=== PATIENT | male | born 1960 | race Caucasian/White ===

== ENCOUNTER → 2024-03-18 10:52 | Outpatient (REF) | payer OTHER, SELFPAY | LOC: WOUND 10:52 | PROVIDERS: ATTENDING PHYSICIAN Surgery; FAMILY PHYSICIAN Internal Medicine | DX: I87.313 Chronic venous hypertension (idiopathic) with ulcer of bilateral lower extremity (principal); L97.812 Non-pressure chronic ulcer of other part of right lower leg with fat layer exposed; L97.822 Non-pressure chronic ulcer of other part of left lower leg with fat layer exposed; I89.0 Lymphedema, not elsewhere classified; I87.2 Venous insufficiency (chronic) (peripheral); I73.9 Peripheral vascular disease, unspecified; E66.01 Morbid (severe) obesity due to excess calories; E78.2 Mixed hyperlipidemia | CPT/HCPCS: 11042; 11045; 99204 ==

== ENCOUNTER → 2024-03-28 15:23 | Outpatient (REF) | payer OTHER, SELFPAY | LOC: WOUND 15:23 | PROVIDERS: ATTENDING PHYSICIAN Surgery; FAMILY PHYSICIAN Internal Medicine | DX: I87.313 Chronic venous hypertension (idiopathic) with ulcer of bilateral lower extremity (principal); L97.812 Non-pressure chronic ulcer of other part of right lower leg with fat layer exposed; L97.822 Non-pressure chronic ulcer of other part of left lower leg with fat layer exposed; I89.0 Lymphedema, not elsewhere classified; I87.2 Venous insufficiency (chronic) (peripheral); I73.9 Peripheral vascular disease, unspecified; E66.01 Morbid (severe) obesity due to excess calories; E78.2 Mixed hyperlipidemia | CPT/HCPCS: 11042; 11045 ==

== ENCOUNTER → 2024-04-01 11:15 | Outpatient (REF) | payer OTHER, SELFPAY | LOC: WOUND 11:15 | PROVIDERS: ATTENDING PHYSICIAN Surgery; FAMILY PHYSICIAN Internal Medicine | DX: I87.313 Chronic venous hypertension (idiopathic) with ulcer of bilateral lower extremity (principal); L97.812 Non-pressure chronic ulcer of other part of right lower leg with fat layer exposed; L97.822 Non-pressure chronic ulcer of other part of left lower leg with fat layer exposed; I89.0 Lymphedema, not elsewhere classified; I87.2 Venous insufficiency (chronic) (peripheral); I73.9 Peripheral vascular disease, unspecified; E66.01 Morbid (severe) obesity due to excess calories; E78.2 Mixed hyperlipidemia | CPT/HCPCS: 11042; 29580 ==

== ENCOUNTER → 2024-04-07 15:06 | Outpatient (REF) | payer OTHER, SELFPAY | LOC: WOUND 15:06 | PROVIDERS: ATTENDING PHYSICIAN Surgery; FAMILY PHYSICIAN Internal Medicine | DX: I87.313 Chronic venous hypertension (idiopathic) with ulcer of bilateral lower extremity (principal); L97.812 Non-pressure chronic ulcer of other part of right lower leg with fat layer exposed; L97.822 Non-pressure chronic ulcer of other part of left lower leg with fat layer exposed; I89.0 Lymphedema, not elsewhere classified; I87.2 Venous insufficiency (chronic) (peripheral); I73.9 Peripheral vascular disease, unspecified; E66.01 Morbid (severe) obesity due to excess calories; E78.2 Mixed hyperlipidemia | CPT/HCPCS: 29580; 99213 ==

== ENCOUNTER → 2024-04-14 14:53 | Outpatient (REF) | payer OTHER, SELFPAY | LOC: WOUND 14:53 | PROVIDERS: ATTENDING PHYSICIAN Surgery; FAMILY PHYSICIAN Internal Medicine | DX: I87.313 Chronic venous hypertension (idiopathic) with ulcer of bilateral lower extremity (principal); L97.812 Non-pressure chronic ulcer of other part of right lower leg with fat layer exposed; L97.822 Non-pressure chronic ulcer of other part of left lower leg with fat layer exposed; I89.0 Lymphedema, not elsewhere classified; I87.2 Venous insufficiency (chronic) (peripheral); I73.9 Peripheral vascular disease, unspecified; E66.01 Morbid (severe) obesity due to excess calories; E78.2 Mixed hyperlipidemia | CPT/HCPCS: 29580; 99213 ==

== ENCOUNTER → 2024-04-21 14:57 | Outpatient (REF) | payer OTHER, SELFPAY | LOC: WOUND 14:57 | PROVIDERS: ATTENDING PHYSICIAN Surgery; FAMILY PHYSICIAN Internal Medicine | DX: I87.313 Chronic venous hypertension (idiopathic) with ulcer of bilateral lower extremity (principal); L97.812 Non-pressure chronic ulcer of other part of right lower leg with fat layer exposed; L97.822 Non-pressure chronic ulcer of other part of left lower leg with fat layer exposed; I89.0 Lymphedema, not elsewhere classified; I87.2 Venous insufficiency (chronic) (peripheral); I73.9 Peripheral vascular disease, unspecified; E66.01 Morbid (severe) obesity due to excess calories; E78.2 Mixed hyperlipidemia | CPT/HCPCS: 29580 ==

== ENCOUNTER → 2024-04-29 10:58 | Outpatient (REF) | payer OTHER, SELFPAY | LOC: WOUND 10:58 | PROVIDERS: ATTENDING PHYSICIAN Surgery; FAMILY PHYSICIAN Internal Medicine | DX: I87.313 Chronic venous hypertension (idiopathic) with ulcer of bilateral lower extremity (principal); L97.812 Non-pressure chronic ulcer of other part of right lower leg with fat layer exposed; L97.822 Non-pressure chronic ulcer of other part of left lower leg with fat layer exposed; I89.0 Lymphedema, not elsewhere classified; I87.2 Venous insufficiency (chronic) (peripheral); I73.9 Peripheral vascular disease, unspecified; E66.01 Morbid (severe) obesity due to excess calories; E78.2 Mixed hyperlipidemia | CPT/HCPCS: 29580; 99213 ==

== ENCOUNTER → 2024-05-06 14:53 | Outpatient (REF) | payer OTHER, SELFPAY | LOC: WOUND 14:53 | PROVIDERS: ATTENDING PHYSICIAN Surgery; FAMILY PHYSICIAN Internal Medicine | DX: I87.313 Chronic venous hypertension (idiopathic) with ulcer of bilateral lower extremity (principal); L97.812 Non-pressure chronic ulcer of other part of right lower leg with fat layer exposed; L97.822 Non-pressure chronic ulcer of other part of left lower leg with fat layer exposed; I89.0 Lymphedema, not elsewhere classified; I87.2 Venous insufficiency (chronic) (peripheral); I73.9 Peripheral vascular disease, unspecified; I66.01 Occlusion and stenosis of right middle cerebral artery; E78.2 Mixed hyperlipidemia | CPT/HCPCS: 11042 ==

== ENCOUNTER → 2024-05-15 14:38 | Outpatient (REF) | payer OTHER, SELFPAY | LOC: WOUND 14:38 | PROVIDERS: ATTENDING PHYSICIAN Surgery; FAMILY PHYSICIAN Internal Medicine | DX: I87.313 Chronic venous hypertension (idiopathic) with ulcer of bilateral lower extremity (principal); L97.812 Non-pressure chronic ulcer of other part of right lower leg with fat layer exposed; L97.822 Non-pressure chronic ulcer of other part of left lower leg with fat layer exposed; I89.0 Lymphedema, not elsewhere classified; I87.2 Venous insufficiency (chronic) (peripheral); I73.9 Peripheral vascular disease, unspecified; E66.01 Morbid (severe) obesity due to excess calories; E78.2 Mixed hyperlipidemia | CPT/HCPCS: 29580; 99212 ==

== ENCOUNTER → 2024-05-21 13:34 | Outpatient (REF) | payer OTHER, SELFPAY | LOC: WOUND 13:34 | PROVIDERS: ATTENDING PHYSICIAN Surgery; FAMILY PHYSICIAN Internal Medicine | DX: I87.313 Chronic venous hypertension (idiopathic) with ulcer of bilateral lower extremity (principal); L97.812 Non-pressure chronic ulcer of other part of right lower leg with fat layer exposed; L97.822 Non-pressure chronic ulcer of other part of left lower leg with fat layer exposed; I89.0 Lymphedema, not elsewhere classified; I87.2 Venous insufficiency (chronic) (peripheral); I73.9 Peripheral vascular disease, unspecified; E66.01 Morbid (severe) obesity due to excess calories; E78.2 Mixed hyperlipidemia | CPT/HCPCS: 29580 ==

== ENCOUNTER → 2024-05-28 14:51 | Outpatient (REF) | payer OTHER, SELFPAY | LOC: WOUND 14:51 | PROVIDERS: ATTENDING PHYSICIAN Surgery; FAMILY PHYSICIAN Internal Medicine | DX: I87.313 Chronic venous hypertension (idiopathic) with ulcer of bilateral lower extremity (principal); L97.812 Non-pressure chronic ulcer of other part of right lower leg with fat layer exposed; L97.822 Non-pressure chronic ulcer of other part of left lower leg with fat layer exposed; I89.0 Lymphedema, not elsewhere classified; I87.2 Venous insufficiency (chronic) (peripheral); I73.9 Peripheral vascular disease, unspecified; E66.01 Morbid (severe) obesity due to excess calories; E78.2 Mixed hyperlipidemia | CPT/HCPCS: 29580 ==

== ENCOUNTER → 2024-06-02 15:13 | Outpatient (REF) | payer OTHER, SELFPAY | LOC: WOUND 15:13 | PROVIDERS: ATTENDING PHYSICIAN Surgery; FAMILY PHYSICIAN Internal Medicine | DX: I87.313 Chronic venous hypertension (idiopathic) with ulcer of bilateral lower extremity (principal); L97.812 Non-pressure chronic ulcer of other part of right lower leg with fat layer exposed; L97.822 Non-pressure chronic ulcer of other part of left lower leg with fat layer exposed; I89.0 Lymphedema, not elsewhere classified; I87.2 Venous insufficiency (chronic) (peripheral); I73.9 Peripheral vascular disease, unspecified; E66.01 Morbid (severe) obesity due to excess calories; E78.2 Mixed hyperlipidemia | CPT/HCPCS: 11042 ==

== ENCOUNTER → 2024-06-09 14:57 | Outpatient (REF) | payer OTHER, SELFPAY | LOC: WOUND 14:57 | PROVIDERS: ATTENDING PHYSICIAN Surgery; FAMILY PHYSICIAN Internal Medicine | DX: I87.313 Chronic venous hypertension (idiopathic) with ulcer of bilateral lower extremity (principal); L97.812 Non-pressure chronic ulcer of other part of right lower leg with fat layer exposed; L97.312 Non-pressure chronic ulcer of right ankle with fat layer exposed; I89.0 Lymphedema, not elsewhere classified; I87.2 Venous insufficiency (chronic) (peripheral); I73.9 Peripheral vascular disease, unspecified; E66.01 Morbid (severe) obesity due to excess calories; E78.2 Mixed hyperlipidemia | CPT/HCPCS: 11042 ==

== ENCOUNTER → 2024-06-16 14:36 | Outpatient (REF) | payer OTHER, SELFPAY | LOC: WOUND 14:36 | PROVIDERS: ATTENDING PHYSICIAN Surgery; FAMILY PHYSICIAN Internal Medicine | DX: I87.313 Chronic venous hypertension (idiopathic) with ulcer of bilateral lower extremity (principal); L97.812 Non-pressure chronic ulcer of other part of right lower leg with fat layer exposed; L97.312 Non-pressure chronic ulcer of right ankle with fat layer exposed; I89.0 Lymphedema, not elsewhere classified; I87.2 Venous insufficiency (chronic) (peripheral); I73.9 Peripheral vascular disease, unspecified; E66.01 Morbid (severe) obesity due to excess calories; E78.2 Mixed hyperlipidemia | CPT/HCPCS: 11042 ==

== ENCOUNTER → 2024-06-23 15:00 | Outpatient (REF) | payer OTHER, SELFPAY | LOC: WOUND 15:00 | PROVIDERS: ATTENDING PHYSICIAN Surgery; FAMILY PHYSICIAN Internal Medicine | DX: I87.313 Chronic venous hypertension (idiopathic) with ulcer of bilateral lower extremity (principal); L97.812 Non-pressure chronic ulcer of other part of right lower leg with fat layer exposed; L97.312 Non-pressure chronic ulcer of right ankle with fat layer exposed; I89.0 Lymphedema, not elsewhere classified; I87.2 Venous insufficiency (chronic) (peripheral); I73.9 Peripheral vascular disease, unspecified; E66.01 Morbid (severe) obesity due to excess calories; E78.2 Mixed hyperlipidemia | CPT/HCPCS: 11042 ==

== ENCOUNTER → 2024-07-02 13:29 | Outpatient (REF) | payer OTHER, SELFPAY | LOC: WOUND 13:29 | PROVIDERS: ATTENDING PHYSICIAN Surgery; FAMILY PHYSICIAN Internal Medicine | DX: I87.313 Chronic venous hypertension (idiopathic) with ulcer of bilateral lower extremity (principal); L97.812 Non-pressure chronic ulcer of other part of right lower leg with fat layer exposed; L97.312 Non-pressure chronic ulcer of right ankle with fat layer exposed; I89.0 Lymphedema, not elsewhere classified; I87.2 Venous insufficiency (chronic) (peripheral); I73.9 Peripheral vascular disease, unspecified; E66.01 Morbid (severe) obesity due to excess calories; E78.2 Mixed hyperlipidemia | CPT/HCPCS: 29580 ==

== ENCOUNTER → 2024-07-09 15:02 | Outpatient (REF) | payer OTHER, SELFPAY | LOC: WOUND 15:02 | PROVIDERS: ATTENDING PHYSICIAN Surgery; FAMILY PHYSICIAN Internal Medicine | DX: I87.313 Chronic venous hypertension (idiopathic) with ulcer of bilateral lower extremity (principal); L97.812 Non-pressure chronic ulcer of other part of right lower leg with fat layer exposed; L97.312 Non-pressure chronic ulcer of right ankle with fat layer exposed; I89.0 Lymphedema, not elsewhere classified; I87.2 Venous insufficiency (chronic) (peripheral); I73.9 Peripheral vascular disease, unspecified; E66.01 Morbid (severe) obesity due to excess calories; E78.2 Mixed hyperlipidemia | CPT/HCPCS: 29580 ==

== ENCOUNTER 2024-12-25 11:23 | Inpatient (IN) | payer OTHER, SELFPAY ==
[2024-12-24 20:27] VITALS: BP 136/78
[2024-12-24 21:22] LABS: ALT (SGPT) 23 U/L (0-50); AST (SGOT) 46 U/L (17-59); Albumin 3.9 g/dl (3.5-5.0); Alkaline Phosphatase 310 U/L (38-126); Blood Urea Nitrogen 47 mg/dl (9-20); Calcium 9.4 mg/dl (8.4-10.2); Carbon Dioxide 29 mmol/L (22-30); Chloride 87 mmol/L (98-107); Glucose 660 mg/dl (70-99); NT-proBNP 270 pg/ml; Potassium 4.8 mmol/L (3.5-5.1); Sodium 125 mmol/L (135-145); Total Protein 7.1 g/dl (6.3-8.2); Troponin I 0.068 ng/ml; eGFR > 60.00
[2024-12-24 21:23] LABS: Hematocrit 41.9 % (39.0-52.0); Hemoglobin 14.7 g/dL (13.0-18.0); Mean Corp Hgb Conc. 35.1 g/dL (33.0-37.0); Mean Corpuscular Hgb 28.8 pg (27.0-31.0); Mean Corpuscular Volume 82.2 fL (80.0-94.0); Red Cell Dist. Width 12.7 % (11.5-14.5); White Blood Cell Count 12.8 10^3/uL (4.8-10.8)
[2024-12-24 21:24] LABS: Nucleated Red Blood Cells % 0 % (-)
[2024-12-24 21:41] LABS: Mean Platelet Volume 11.4 fL (7.4-10.4); Platelet Count 147 10^3/uL (130-400)
[2024-12-24 22:01] VITALS: BP 110/90
[2024-12-24 22:05] VITALS: BMI 43.4
[2024-12-24 22:08] LABS: Glucose - Point of Care > 600 mg/dl (70-99)
--- NOTE | 2024-12-24 22:21 | ED.GENMED ---
History of Present Illness
General
Chief Complaint: Breathing Problem
Source: patient
Exam Limitations: none
Time Seen by Provider: 12/24/24 22:07
History of Present Illness
History of Present Illness:
See MDM
Past History
Past History
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
ED Past Surgical History: Other (Noncontributory)
Social History
Tobacco: Non-smoker
Alcohol: None
Drug: None
Employment: Not employed
Family History
Family History: Other (Noncontributory)
Phy Exam
Physical Exam
Physical Exam:
See MDM
Scores
Heart Failure Risk
Heart Failure Risk Score: Not Applicable
Course
Orders/Labs/Results
Orders:
Orders
12/24/24 20:37
Electrocardiogram (*1) Urgent
Reason for Study: Shortness of Breath
12/24/24 20:38
EKG- Treatment ONCE
12/24/24 20:48
Complete Blood Count/With Diff Urgent
Comprehensive Metabolic Panel Urgent
NT-proBNP Urgent
Troponin I Urgent
12/24/24 22:20
CT Chest PE Study Urgent
Comment:
Reason For Exam: SOB, tachycardic
Insulin Human Regular [Novolin R] 10 units IV NOW STA
12/24/24 22:21
Aspirin Chewable [Low Strength Aspirin] 324 mg PO NOW STA
12/24/24 22:43
CT Abd/pelvis W Iv Cont Urgent
Comment:
Reason For Exam: Abd pain
12/24/24 23:40
Glucose Stat
12/25/24 00:00
0.9% Sodium Chloride 1000 ml [Nss] 1,000 ml IV BOLUS
Abnormal Lab Results
12/24/24 12/24/2412/24/25
20:48 22:07 23:27
WBC 12.8 H 10^3/uL
(4.8-10.8)
MPV 11.4 H fL
(7.4-10.4)
Sodium 125 L mmol/L
(135-145)
Chloride 87 L mmol/L
(98-107)
BUN 47 H mg/dl
(9-20)
Glucose 660 H* mg/dl
(70-99)
Alkaline Phosphatase 310 H U/L
(38-126)
Troponin I 0.068 H* ng/ml
POC Glucose > 600 H* mg/dl 516 H* mg/dl
(70-99) (70-99)
12/24/24 20:48
Vital Signs
Initial and Last Documented VS:
Initial Vital Signs
Temp Pulse BP Pulse Ox
98.0 F 125 136/78 93
12/24/24 20:27 12/24/24 20:27 12/24/24 20:27 12/24/24 20:27
Last Documented Vital Signs
Temp Pulse Resp BP Pulse Ox
98.0 F 120 19 110/90 92
12/24/24 20:27 12/24/24 22:01 12/24/24 22:01 12/24/24 22:01 12/24/24 22:05
MDM/Problems Addressed
Differential Diagnosis Includes:
HPI and MDM Narrative:
64-year-old male presenting for evaluation of shortness of breath. Patient states this has been ongoing for several weeks. Patient believes this is a fluid issue. He states he has a history of low ejection fraction in his heart. Upon further
questioning, patient has a history of insulin-dependent diabetes. He states his diet was improving so he weaned himself of insulin. Over the past 4 weeks, patient has had increased urination and increased thirst to the point where he cannot sleep
because he is urinating every 45 minutes. On arrival, patient found to be tachycardic. Blood work was done prior to my evaluation and patient found to have an elevated troponin. This is likely rate related. His BNP is normal. However, given his
elevated BMI, the BNP can be inappropriately low. Given his tachycardia and his shortness of breath and chest discomfort, will obtain CT to rule out PE. Patient found to have uncontrolled hyperglycemia. Bicarb within normal limits indicating that
this is less likely DKA. Will give dose of IV insulin. Patient given aspirin for his elevated troponin
Patient will ultimately require admission
Physical exam
General: Uncomfortable, conversational dyspnea
HEENT: protecting airway. Dry mucous membranes
Neck: appears supple
CV: No evidence of cyanosis. Tachycardic
Resp: No accessory muscle use. Poor air exchange
Abd: Distended abdomen
Extremities: Chronic appearing lymphedema to both legs
Neuro: alert
Psych: Normal affect
Skin: Intact
Problems Addressed including Acute and Chronic Conditions affecting care:
1. Shortness of breath
Acuity: acute
Prognosis: stable
Details: Will obtain CT to rule out PE
2. Tachycardia
Acuity: acute
Prognosis: stable
Details: Potentially in the setting of hypovolemia. CT PE pending
3. Hyperglycemia
Acuity: acute
Prognosis: stable
Details: No evidence of DKA. Will give dose of IV insulin
Updates
Case discussed with radiology. No obvious signs of PE. Patient does have abnormal findings on the CT abdomen/pelvis. He has significant amount of distention of his sigmoid colon but there is no obvious volvulus. When I reassessed the patient, he
remains distended but nontender. He states it has been like this for 6 weeks. He states he passes gas when he defecates. He is not clinically obstructed. I also discussed the incidental finding of possible renal cell carcinoma. Will admit
Differential Diagnosis (but not limited to): Pulmonary edema, pneumonia, pulmonary embolism
Testing considered: Chest x-ray but will go directly to CT PE
Drug therapy (if applicable): OTC meds, please see d/c instruction regarding Rx drugs
Amount and/or Complexity of Data Reviewed
Clinical info obtained from: Patient
External data reviewed: N/A
Labs I independently reviewed (but not limited to): Elevated troponin, normal BNP, hyperglycemia, pseudohyponatremia
Radiology: The CT scan was personally and independently reviewed. In addition, official CT report reviewed.
Pulse Ox: not hypoxic
EKG independently reviewed: Sinus tachycardia, normal axis, no STEMI
Marketing Communications Specialist: Sinus tachycardia
Critical Care: N/A
Risk of Complication:
Social Determinants of health: Good social support
Discussed with other providers: Hospitalist, radiologist
Escalation of Care includes Admit/Obs: Given the uncontrolled diabetes and the elevated troponin, will admit
Occasional wrong word or 'sound a like' substitutions may have occurred due to the inherent limitations of voice recognition software. Read the chart carefully and recognize, using context, where substitutions have occurred.
*Critical Care Note
Total Time (30-74mins, 75-104mins- exclusive of procedures): Not Applicable
ED Attending Note
-
Portions of this chart may have been created with voice recognition software.� Occasional wrong word or��sound alike� substitutions may have occurred due to the inherent limitations of voice recognition software.
Discharge Plan
Departure
Patient Disposition: Admit
Date of Disposition: 12/25/24
Time of Disposition: 00:11
Admit to: Telemetry
Presentation/result/management discussed w/ accepting MD/DO: Hospitalist
Discharge Problem:
Hyperglycemia, Abdominal distension
Prescriptions:
No Action
lidocaine 4 % Adhesive Patch,Medicated
1 patch TOPICAL BID
zinc sulfate 50 mg zinc (220 mg) Tablet
50 mg PO DAILY
calcium carbonate [Calcium 500] 500 mg calcium (1,250 mg) Tablet
500 mg PO DAILY
tamsulosin 0.4 mg Capsule
0.4 mg PO DAILYPRN PRN (Reason: bloating)
metoprolol succinate 25 mg Tablet Extended Release 24 Hr
12.5 mg PO NOON
lisinopril 2.5 mg Tablet
2.5 mg PO NOON
buprenorphine-naloxone [Suboxone] 4-1 mg Film
1 film BUCCAL NOON
buprenorphine-naloxone [Suboxone] 4-1 mg Film
0.5 film BUCCAL HSPRN PRN (Reason: opioid dependence)
magnesium oxide 400 mg magnesium Tablet
400 mg PO DAILY
atorvastatin 40 MG tablet
40 mg PO HS
Referrals:
Shankar Mena MD [Family Provider] -
Interventions
Interventions:
*Risk Screen - Suicide Last Done: 12/24/24 20:34
*General Assessment Last Done: 12/24/24 20:34
*Neglect/Abuse Screening Last Done: 12/24/24 20:34
*ED COVID-19 Vaccine History Last Done: 12/24/24 20:34
ED- Cardiac Assessment Last Done: 12/24/24 22:05
ED- Pulmonary Assessment Last Done: 12/24/24 22:05
Discharge Date and Time
Print Language: OMANI
[2024-12-24] MEDS: NOVOLIN R 10 UNITS IV (22:25)
[2024-12-24] MEDS: LOW STRENGTH ASPIRIN 324 MG PO (22:27)
[2024-12-24 23:04] VITALS: BP 96/67
[2024-12-24 23:28] LABS: Glucose - Point of Care 516 mg/dl (70-99)
[2024-12-25] VITALS (12 sets, daily range): BP systolic 82–126; BP diastolic 53–92; BMI 42.7
[2024-12-25 00:12] LABS: Glucose 418 mg/dl (70-99)
[2024-12-25] MEDS: NSS 1000 IV ×4 (00:28→21:06)
--- NOTE | 2024-12-25 01:02 | HPS.HSE ---
Addendum entered and electronically signed by Vimal Navarro MD 12/25/24 07:22:
Review of ECG by cardiology. Notified this am that ECG was a-flutter.
- repeat ecg, now
- cardiology consult
- echo
- holding anticoag pending cardiology eval
DM II
- stopped iv fluids
- aspart 5 tidac, sliding scale insulin
Original Note:
Family Physician
-
Family Physician: Shankar Mena
Chief Complaint
-
Shortness of breath
History of Present Illness
This is a 64-year-old male with past medical history significant for diabetes on insulin, chronic pain, BPH, hypertension obstructive sleep apnea noncompliant with CPAP presenting to the emergency department with acute episode of shortness of breath.
Patient reports that he has been having worsening health status since September 2020fall. He apparently had developed depression at that time. Was previously on insulin and had A1c of around 5.5. He stopped taking the insulin due to the A1c of
5.5. He started having polyuria and polydipsia in September and has continued to have polyuria and polydipsia since. He states he drinks a large amount of water and soft drinks. He denies nausea or vomiting. He denies fevers or chills. He
reported that around the same time he started having increasing abdominal distention. Less activity and ongoing weight gain. Patient endorses some depression for which he is seeking medications for. He states that he does get congestion that is
worse with large fluid intakes and then clears. He denies any history of asthma COPD or tobacco use. He denies constipation. He reports loose stools which he states he has had since September and he attributes to high fluid intake. Reports
polyuria going to the bathroom every 1 hour.
Today he felt markedly short of breath and he could not get comfortable. Anytime he lays down he feels his belly pushes into his chest and he cannot catch his breath. Despite the depression he was anxious enough to come to the emergency department.
In the emergency department today he was afebrile, blood pressure was 110/90 with a pulse of 120, oxygen saturation of 92% on room air. ECG shows sinus tachycardia. Troponin was 0.068. He had a CT PE which was negative for PE but shows bilateral
lower lobe bronchitis. A CT of the abdomen and pelvis showed severe sigmoid distention, no volvulus. No obstruction. White count was 12.8 hemoglobin and platelets were normal. Sodium was 125 with a blood glucose of 600. Potassium 4.8 chloride
87 and bicarb 29 with a BUN of 47 and a creatinine of 1.0. There is no anion gap.
Additional CT findings: Suggestion of a rounded mass arising from the lateral upper to mid right kidney, and raises concern for renal cell carcinoma. When clinically feasible, advise further evaluation with dedicated CT of the abdomen without and
with contrast with attention to the kidneys.
There are enlarged lymph nodes within the abdomen and pelvis as described, which raises concern for a neoplastic process, especially lymphoma and/or leukemia. As warranted, consideration for lymph node biopsy.
Medical History
Past Medical History
Past Medical History: Reports HTN, IDDM and Other (BPH)
Past Surgical History: Reports Orthopedic
Social History
Tobacco: Non-smoker
Alcohol: None
Drug: None
Personal:
Living: With Family
Employment: Retired
Family History
Family History: Not pertinent
Allergies / Home Medications
Allergies reflects when Allergies were last updated in [facility].
Home Medications with original date entered in [facility]
Allergy/Medication List:
Allergies
Allergy/AdvReac Type Severity Reaction Status Date / Time
No Known Allergies Allergy Verified 12/27/20 07:05
Home Medications
atorvastatin 40 mg tablet 40 mg PO HS 12/24/24
buprenorphine 4 mg-naloxone 1 mg sublingual film (Suboxone) 0.5 film buccal HSPRN PRN opioid dependence 12/24/24
buprenorphine 4 mg-naloxone 1 mg sublingual film (Suboxone) 1 film buccal NOON 12/24/24
calcium carbonate 500 mg PO DAILY 12/24/24
lidocaine 4 % topical patch 1 patch topical BID right shoulder 12/24/24
lisinopril 2.5 mg tablet 2.5 mg PO NOON 12/24/24
magnesium oxide 400 mg PO DAILY 12/24/24
metoprolol succinate 25 mg tablet,extended release 24 hr 12.5 mg PO NOON 12/24/24
tamsulosin 0.4 mg capsule 0.4 mg PO DAILYPRN PRN bloating 12/24/24
zinc sulfate 50 mg zinc (220 mg) tablet 50 mg PO DAILY 12/24/24
Review of Systems
-
History Source: Patient
Constitutional: Reports Weight Gain
EENT: Reports No Symptoms
Respiratory: Reports Cough and Trouble Breathing
Cardiac: Reports No Symptoms
Abdomen/GI: Reports Other (Abdominal distention)
: Reports No Symptoms
Musculoskeletal: Reports No Symptoms
Skin: Reports No Symptoms
Neurological: Reports No Symptoms
Endocrine: Reports Polyuria and Polydipsia
Hematologic/Lymphatic: Reports No Symptoms
Psych: Reports Depression
Physical Exam
Vital Signs
Vital Signs
Temp Pulse Resp BP Pulse Ox
98.0 F 120 19 110/90 92
12/24/24 20:27 12/24/24 22:01 12/24/24 22:01 12/24/24 22:01 12/24/24 22:05
Physical Exam
General: Appears in Distress, Appears Chronically Ill and Morbidly Obese
HEENT: NormoCephalic, Anicteric, Moist mucous membranes and Atraumatic
Respiratory: Clear
Cardiac: S1/S2 and Tachycardia
Breast: Deferred by me
GI: Soft, Non Tender, Distended (markedly distended), No Hepatosplenomegaly and Other (Tympanitic)
Rectal: Deferred by Provider
Genito-urinary: Deferred by me
Musculoskeletal: No Clubbing, No Cyanosis and No Edema
Skin: Warm
Neuro: AO x 3 and Nonfocal/grossly intact
Hematologic/Lymphatic: No Lymphadenopathy
Psych: Calm and Depressed
Laboratory Results
-
12/24/24 20:48
12/24/24 23:40
Laboratory Results
Total Bilirubin 1.0 mg/dl (0.2-1.3) 12/24/24 20:48
AST 46 U/L (17-59) 12/24/24 20:48
ALT 23 U/L (0-50) 12/24/24 20:48
Alkaline Phosphatase 310 U/L (38-126) H 12/24/24 20:48
Troponin I 0.068 ng/ml H* 12/24/24 20:48
Data Reviewed
-
CT Scan: Report Reviewed by me
Medical Tests (Nuc Med, Echo, EKG etc): Image Personally Visualized and interpreted
Lab Data: Labs Reviewed by me
Old Records: Reviewed
Impression/Plan
-
IMPRESSION:
Patient is a 64-year-old with history of diabetes, hypertension, BPH, morbid obesity, ERASMO not on CPAP and chronic pain who presents to the emergency department with episode of shortness of breath in the setting of approximately 4 months of polyuria
and polydipsia after stopping insulin for presumed normal hemoglobin A1c of 5.5. Patient reports weight gain, depression, abdominal distention, chest discomfort with activity and shortness of breath with any activity. CT scan is negative for PE.
He has no prior history of CHF but reports bilateral lower extremity swelling attributable to chronic lymphedema. The labs were notable for hyper glycemia to 600 improved with insulin to 400 with concomitant hyperglycemia related hyponatremia.
Renal function is stable he has no anion gap and is hemodynamically stable.
PLAN:
1. Hyperglycemia with mild hyperosmolar syndrome - Glucose 600 improved to 400 with 10 units of insulin. HD stable.
- admit to inpt
- will give additional 5 units of insulin now
- continue IV NS overnight
- repeat fsg at 4 am and coverage prn
- then insulin sliding scale achs
- check a1c and lipid panel in am
- started sitagliptin 50 pending a1c, metformin possibly [address]
2. Abdominal distension - Distended sigmoid colon w/o obstruction and no definitive volvulus. Recent loose stools. No constipation. Colonic ileus suspected
- diabetic diet
- serial examination
- GI consultation
3. SOB - Mild hypoxia to 92%. No PE. Reports intermittent cough and CT suggest bronchitis. BNP 270 (morbid obesity)
- prn nebs
- cough meds
- doxycycline for acute bronchitis
4. Elevated Troponin - ECG with tachycardia, no ischemia. No chest pain
- telemetry
- aspirin 324 x 1
- trend troponins
5. HTN
- continue lisinopril and metoprolol
6. BPH
- continue tamsulosin
7. Renal lesion - CT with suggestion of right kidney mass. Dedicated Ct of the abdomen w/o and w contrast with kidney focus.
- iv fluids and allow current iv contrast to washout
- dedicated abd CT w & w/o contrast in am
DVT PPX - lovenox sq
Code status - Full Code
[2024-12-25] MEDS: VIBRAMYCIN 100 MG PO ×2 (02:20→20:30)
[2024-12-25 02:55] LABS: Glucose - Point of Care 429 mg/dl (70-99)
--- NOTE | 2024-12-25 03:00 | PTCARENOTE ---
Received pt from ED via stretcher. Weight obtained on standing scale and pt walked to bed.
[2024-12-25 03:44] LABS: Blood Urea Nitrogen 38 mg/dl (9-20); Calcium 8.7 mg/dl (8.4-10.2); Carbon Dioxide 25 mmol/L (22-30); Chloride 93 mmol/L (98-107); Estimated Creatinine Clearance > 125 ml/min; Glucose 413 mg/dl (70-99); Potassium 4.4 mmol/L (3.5-5.1); Sodium 127 mmol/L (135-145); eGFR > 60.00
[2024-12-25 04:04] LABS: Troponin I 0.074 ng/ml
[2024-12-25] MEDS: NOVOLIN R 0.05 UNITS IV (04:24)
[2024-12-25 05:02] LABS: COVID-19 Antigen Negative (Negative)
--- NOTE | 2024-12-25 06:54 | CON.GI ---
Addendum entered and electronically signed by Dipika Sheffield Do, MD 12/25/24 14:44:
The CUSTOMER CARE PROFESSIONAL's note was reviewed and I agree with the note.
Comment: Merrill is a 64yo M with poorly controlled DM, ERASMO and chronic pain who was admitted with SOB and abd distension. He does not seek medical care routinely. Unable to do exam as despite returning to room three times today he was not
available. Either imaging, speaking to cardiology, colorectal surgery or at endoscopy center.
Imaging reviewed and given extremely dilated loops of bowel with possible volvulus I do not feel comfortable doing flex sigm. Case d/w colorectal surgeon and they will do flex sigm today and if there is perforation he can go immediately to OR.
Minimize opioid use. NPO. At this juncture no new GI recs will sign off please call for questions.
Original Note:
Consultation
-
Date/Time Consultation Requested: 12/25/24 0230
Date/Time Consultation Performed: 12/25/24 1030
Requesting Provider: Vimal Navarro MD
Performing Provider: ORIN Fuller, Dipika Story MD
Reason for Consultation: abnormal CT
Medical History
Chief Complaint / HPI
Chief Complaint: shortness of breath, abdominal distention
History of Present Illness:
Pt is a 64yo with hx IDDM, HTN, hypercholesterolemia, cardiomyopathy, chronic pain, BPH, sleep apnea, obesity, depression medical noncompliance presents with shortness of breath with abdominal bloating. . On admission pt admits to weaning self
off insulin about 2 years ago with hypoglcemia episode and no further follow up. He is now noted with polyuria and polydipsia. On admission he is noted with multiple issues including glucose of 660 with hbgA1c 17.1, troponin 0,068 with mild rise
after admission, na 125, and WBC 12,800. Imaging with CT chest- suboptimal pulm arteries but neg PE. No dissection or aneurysm, no pericardial or pleural effusion. There was noted distended loop of bowel in upper abdomen with distention. Further
follow up CT A/p with distention of sigmoid colon without volvulus with consideration for decompression tube. Also noted flipping of cecum with elongated and tortuous with possible displacement of distended sigmoid. Also moderate wall thickening
of rectosigmoid inferior to distended sigmoid with moderate stool in portion of sigmoid and possible stercoral colitis. Ct further suggest mass lateral to upper to mid right kidney concern for renal cell CA with need for further with and without Ct
imaging and enlarged lymph nodes with concern for neoplastic process - lymphoma or leukemia. Pt also noted with aflutter on admission with BP 80-100.
In review with patient he admits to some chronic distention and large abdominal. About 1 years ago he admits to change in bowel pattern with loose stools but admits to only 1-2 stools per week. His last stool was 1/2 liquid and 1/2 solid
stool. Per family he does cough with eating at times. He admits to bloating but otherwise denies odynophagia, GERD, nausea, vomiting with tolerating full breakfast on day of admission, or rectal bleeding. No hx EGD or colonoscopy in past. No
anticoagulation use but admits to regular Ibuprofen use for shoulder pain.
Past Medical History
Past Medical History: HTN, Hypercholesterolemia, IDDM, Psychiatric (depression) and Other (cardiomyoathy, chronic pain, BPH, sleep apnea, obesity)
Past Surgical History: Orthopedic (B/L HR, R TKR 2020 )
Social History
Tobacco: Non-Smoker
Alcohol: Occasional (rare)
Drug: None
Personal:
Living: With Family
Employment: Not Employed
Family History
Family History: Other (no family)
Allergies / Home Medications
Allergy/AdvReac Type Severity Reaction Status Date / Time
No Known Allergies Allergy Verified 12/27/20 07:05
�Medication �Instructions �Recorded
atorvastatin 40 mg tablet 40 mg PO HS 12/24/24
buprenorphine 4 mg-naloxone 1 mg 0.5 film buccal HSPRN PRN opioid 12/24/24
sublingual film (Suboxone) dependence
buprenorphine 4 mg-naloxone 1 mg 1 film buccal NOON 12/24/24
sublingual film (Suboxone)
calcium carbonate 500 mg PO DAILY 12/24/24
lidocaine 4 % topical patch 1 patch topical BID right shoulder 12/24/24
lisinopril 2.5 mg tablet 2.5 mg PO NOON 12/24/24
magnesium oxide 400 mg PO DAILY 12/24/24
metoprolol succinate 25 mg 12.5 mg PO NOON 12/24/24
tablet,extended release 24 hr
tamsulosin 0.4 mg capsule 0.4 mg PO DAILYPRN PRN bloating 12/24/24
zinc sulfate 50 mg zinc (220 mg) 50 mg PO DAILY 12/24/24
tablet
Review of Systems
-
History Source: Patient and Family
Constitutional: Reports Other (weight 330-350 range )
EENT: Reports No Symptoms
Respiratory: Reports Trouble Breathing
Cardiac: Reports No Symptoms
Abdomen/GI: Reports Diarrhea, Constipated (change on bowel pattern over last year ) and Other (abdominal distention)
: Reports No Symptoms
Musculoskeletal: Reports Other (chronic shoulder pain)
Skin: Reports Other (LE swelling )
Neurological: Reports Weakness
Endocrine: Reports No Symptoms
Hematologic/Lymphatic: Reports No Symptoms
Vital Signs
Temp Pulse Resp BP Pulse Ox
98.0 F 90 18 102/67 92
12/25/24 03:18 12/25/24 03:18 12/25/24 03:18 12/25/24 03:18 12/25/24 03:18
Physical Exam
Exam
General: Other (chronic ill appearing)
HEENT: Normocephalic and Anicteric
Respiratory: Other (decreased bases )
Cardiac: Peripheral Edema and Other (tachy- aflutter )
GI: Soft, Non Tender, Distended and Other (tympanic )
Musculoskeletal: No Clubbing and No Cyanosis
Skin: Warm and Dry
Neuro: Awake, Alert and AO x 3
Psych: Calm
Results
WBC 12.8 10^3/uL (4.8-10.8) H 12/24/24 20:48
Hgb 14.7 g/dL (13.0-18.0) 12/24/24 20:48
Hct 41.9 % (39.0-52.0) 12/24/24 20:48
MCV 82.2 fL (80.0-94.0) 12/24/24 20:48
Plt Count 147 10^3/uL (130-400) 12/24/24 20:48
Sodium 127 mmol/L (135-145) L 12/25/24 03:01
Potassium 4.4 mmol/L (3.5-5.1) 12/25/24 03:01
Chloride 93 mmol/L (98-107) L 12/25/24 03:01
Carbon Dioxide 25 mmol/L (22-30) 12/25/24 03:01
BUN 38 mg/dl (9-20) H 12/25/24 03:01
Creatinine 0.8 mg/dL (0.7-1.3) 12/25/24 03:01
Calcium 8.7 mg/dl (8.4-10.2) 12/25/24 03:01
Total Bilirubin 1.0 mg/dl (0.2-1.3) 12/24/24 20:48
AST 46 U/L (17-59) 12/24/24 20:48
ALT 23 U/L (0-50) 12/24/24 20:48
Alkaline Phosphatase 310 U/L (38-126) H 12/24/24 20:48
Diagnostic Image Results:
12/24/24 CT Chest PE Study
IMPRESSION: Suboptimal opacification of the pulmonary arteries, and respiratory motion artifact in the inferior lungs. No evidence for central pulmonary embolism. Limited evaluation of the segmental and subsegmental pulmonary arteries.
If there are persistent clinical symptoms, consideration for repeat CT angiography of the chest with pulmonary embolism protocol.
No evidence for thoracic aortic dissection or aneurysm.
Findings of bronchitis within both lower lungs, especially within the lower lobes. Linear atelectasis within both lower lungs, probably associated with bronchitis.
No significant pleural effusion and no significant pericardial effusion.
Coronary artery calcifications are present. Please correlate with symptoms of and risk factors for coronary artery disease, with further workup as clinically appropriate.
In the upper abdomen, distention of a loop of bowel within the upper abdomen which appears to be a loop of colon. There also appears to be slight thickening of the wall of this loop of distended colon. The patient is scheduled for a separate CT of
the abdomen and pelvis, which will be reported separately.
12/24/24 CT Abd/pelvis W Iv Cont
IMPRESSION: Significant distention of the sigmoid colon, extending into the upper abdomen, but without convincing evidence for sigmoid volvulus.
Consideration for attempt at decompression tube placement.
Unusual flipping of the cecum into the left pelvis, and new finding from previous examination of December 25, 2011. This is likely due to an elongated and tortuous:, Perhaps displaced by the distended sigmoid colon.
Moderate circumferential wall thickening involving the rectum and rectosigmoid junction, inferior to the distended portion of the sigmoid colon. There is also moderate amount of stool within this portion of the sigmoid colon. A component of
stercoral colitis in this region is possible.
No evidence for free intraperitoneal air.
Suggestion of a rounded mass arising from the lateral upper to mid right kidney, and raises concern for renal cell carcinoma. When clinically feasible, advise further evaluation with dedicated CT of the abdomen without and with contrast with
attention to the kidneys.
There are enlarged lymph nodes within the abdomen and pelvis as described, which raises concern for a neoplastic process, especially lymphoma and/or leukemia. As warranted, consideration for lymph node biopsy.
12/25/24CT Abdomen W/wo Iv Contrast
1.8 cm solid enhancing right renal mass, representing neoplasm until proven otherwise.
Nonobstructing left renal calculi.
Continued gaseous distention of the sigmoid colon.
Mild colonic diverticulosis. No evidence of acute diverticulitis.
Mild distal periaortic adenopathy and left common iliac chain adenopathy.
Prior GI Procedures:
EGD: none
Colonoscopy: none
Assessment / Plan
-
Pt is a 64yo with hx IDDM, HTN, hypercholesterolemia, cardiomyopathy, chronic pain, BPH, sleep apnea, obesity, depression presents with shortness of breath. On admission pt admits to recently weaning self off insulin with polyuria and polydipsia.
On admission he is noted with multiple issues including glucose of 660, troponin 0,068 with mild rise after admission, na 125, and WBC 12,800. Imaging with CT chest- suboptimal pulm arteries but neg PE. No dissection or aneurysm, no pericardial or
pleural effusion. There was noted distended loop of bowel in upper abdomen with distention. Further follow up CT A/p with distention of sigmoid colon without volvulus with consideration for decompression tube. Also noted flipping of cecum with
elongated and tortuous with possible displacement of distended sigmoid. Also moderate wall thickening of rectosigmoid inferior to distended sigmoid with moderate stool in portion of sigmoid and possible stercoral colitis. Ct further suggest mass
lateral to upper to mid right kidney concern for renal cell CA with need for further with and without Ct imaging and enlarged lymph nodes with concern for neoplastic process - lymphoma or leukemia.
-marked abdominal distention with sigmoid distention, constipation and possible stercoral colitis
-renal mass concern for renal Cell CA
-enlarged lymph nodes with concern for neoplastic process
-aflutter-new
-hypotension
-occasional dysphagia
marked elevated FBS and Hbg A1C with non compliance with diabetic care
-mild trop elevation
-leukocytosis
-hyponatremia
other med problems:
-HTN
-cardiomyopathy
-chronic pain-NSAID use
-BPH
-sleep apnea
-obesity
-depression
PLAN:
etiology of marked sigmoid distention related to underlying volvulus though not reported per radiology, underlying mass vs other
with marked distention will consult colorectal for considering decompression
pt ate breakfast this am agree with NPO now
reviewed CT with distention and other finding with renal mass, adenopathy with pt and family
cont rx for renal mass/uncontrolled DM per medical team
appreciate cards input ok to proceed with flex/decompression
reviewed case with Dr. Pierre, Dr. Bone and Dr. Mcguire
consider eventual colonoscopy when improved
consider speech eval when able with occasional dysphagia reported
updated at bedside
-
-
Thank you for consultation and allowing me to participate in the patient's care. Please call the county home demonstration agent GI physician during the after hours with any questions or concerns.
[2024-12-25 07:19] LABS: Hematocrit 39.2 % (39.0-52.0); Hemoglobin 13.5 g/dL (13.0-18.0); Mean Corp Hgb Conc. 34.4 g/dL (33.0-37.0); Mean Corpuscular Hgb 28.4 pg (27.0-31.0); Mean Corpuscular Volume 82.5 fL (80.0-94.0); Mean Platelet Volume 10.5 fL (7.4-10.4); Platelet Count 174 10^3/uL (130-400); Red Blood Cell Count 4.75 10^6/uL (4.70-6.10); Red Cell Dist. Width 12.9 % (11.5-14.5)
[2024-12-25 07:24] LABS: Glucose - Point of Care 421 mg/dl (70-99)
[2024-12-25 07:44] LABS: Troponin I 0.077 ng/ml
[2024-12-25 07:50] LABS: Blood Urea Nitrogen 34 mg/dl (9-20); Calcium 8.8 mg/dl (8.4-10.2); Carbon Dioxide 29 mmol/L (22-30); Chloride 92 mmol/L (98-107); Estimated Creatinine Clearance > 125 ml/min; Glucose 392 mg/dl (70-99); HDL Cholesterol 51 mg/dl; LDL Cholesterol, Calculated 91 mg/dl; Potassium 4.3 mmol/L (3.5-5.1); Sodium 128 mmol/L (135-145); Total Cholesterol 219 mg/dl (50-199); Triglyceride 389 mg/dl (10-149); Very Low Density Lipoprotein 77 mg/dl (0-30); eGFR > 60.00
[2024-12-25 08:04] LABS: Glucose 444 mg/dl (70-99)
[2024-12-25] MEDS: NOVOLOG FLEXPEN 5 UNITS SC (08:22)
[2024-12-25] MEDS: NOVOLOG FLEXPEN-LOW RESISTANCE 6 UNITS SC ×2 (08:23→11:23)
--- NOTE | 2024-12-25 09:03 | CON.CAR ---
Addendum entered and electronically signed by Vazquez Mcguire MD 12/25/24 15:02:
I saw and examined the patient.
The VEGETABLE THINNER's note was reviewed and I agree with the note.
Comment: 64 y/o male (patient of Dr. Barrow last seen in our office 12/2020) with hypertension, resolved NICM (EF 20% 2017, most recent EF 50-55%), dyslipidemia, obesity, DM, OA with chronic pain syndrome, and ERASMO. He is here for evaluation of SOB,
abdominal bloating found to have a significantly dilated sigmoid colon.
We are consulted for a flutter
- Heparin gtt when OK from surgical perspective
- Amio gtt when therapeutic AC
Original Note:
Consultation
Consultation Request
Date/Time Consultation Requested: 12/25/24714
Date/Time Consultation Performed: 12/25/24 0904
Requesting Provider: Dr. Navarro
Performing Provider: Erika SR for Dr. Mcguire
Reason for Consultation: Atrial flutter
Medical History
-
Chief Complaint: SOB
History of Present Illness:
64 y/o male (patient of Dr. Barrow last seen in our office 12/2020) with hypertension, resolved NICM (EF 20% 2016, most recent EF 50-55%), dyslipidemia, obesity, DM, OA with chronic pain syndrome, and ERASMO. He is here for evaluation of SOB,
abdominal bloating- it has been worse for the past 3 months. He has multiple issues including an abdominal process (see details below), severe hyperglycemia (has been off insulin), hyponatremia, evidence for bronchitis. He has mildly increased WOB
on assessment, but lungs clear. This is likely related to his severely distended abdomen. Also being treated for bronchitis.
Past Medical History
Past Medical History: HTN, Hypercholesterolemia, NIDDM and Other (as above)
Social History
Tobacco: Non-Smoker
Personal:
Living: With Family
Family History
Family History: CAD (mom)
Allergies / Home Medications
Allergy/AdvReac Type Severity Reaction Status Date / Time
No Known Allergies Allergy Verified 12/27/20 07:05
�Medication �Instructions �Recorded �Confirmed �Type
atorvastatin 40 mg tablet 40 mg PO HS 12/24/24 12/24/24 History
buprenorphine 4 mg-naloxone 1 mg 0.5 film buccal HSPRN PRN opioid 12/24/24 12/24/24 History
sublingual film (Suboxone) dependence
buprenorphine 4 mg-naloxone 1 mg 1 film buccal NOON 12/24/24 12/24/24 History
sublingual film (Suboxone)
calcium carbonate 500 mg PO DAILY 12/24/24 12/24/24 History
lidocaine 4 % topical patch 1 patch topical BID right shoulder 12/24/24 12/24/24 History
lisinopril 2.5 mg tablet 2.5 mg PO NOON 12/24/24 12/24/24 History
magnesium oxide 400 mg PO DAILY 12/24/24 12/24/24 History
metoprolol succinate 25 mg 12.5 mg PO NOON 12/24/24 12/24/24 History
tablet,extended release 24 hr
tamsulosin 0.4 mg capsule 0.4 mg PO DAILYPRN PRN bloating 12/24/24 12/24/24 History
zinc sulfate 50 mg zinc (220 mg) 50 mg PO DAILY 12/24/24 12/24/24 History
tablet
Review of Systems
-
History Source: Patient
All other systems: Negative unless noted
Respiratory: Trouble Breathing
Abdomen/GI: Other (abdominal bloating)
Physical Exam
Vital Signs
Temp Pulse Resp BP Pulse Ox
97.9 F 66 14 101/65 93
12/25/24 07:36 12/25/24 07:36 12/25/24 07:36 12/25/24 08:12 12/25/24 07:36
Lab Results
12/25/24 07:05
12/25/24 07:45
Troponin I 0.077 ng/ml H* 12/25/24 07:05
Inh-C-[id number] Pept 270 pg/ml 12/24/24 20:48
Physical Exam
General: Other (mildly increased WOB)
HEENT: Normocephalic and Anicteric
Respiratory: Clear and Other (as above)
Cardiac: Regular Rhythm (aflutter 120's)
GI: Distended
Musculoskeletal: Edema (BLE edema)
Skin: Other (BLE discoloration)
Neuro: AO x 3
Psych: Calm
Impression / Plan
-
Abdominal process, distension:
-details as below
-GI and surgery consulted. Discussed with GI and there is consideration for decompression today, but patient ate breakfast. No OAC for now per GI since he will need procedures.
Atrial flutter:
-rates in 120's
-increase BB and monitor telemetry. Stop ACEI to make BP room.
-can further treat once acute non-cardiac issues are addressed
-[id number] score is 3 for DM, HTN, and hx CM
-he has untreated sleep apnea and this will need to be addressed
-check TSH
Resolved NICM:
-EF was as low as 20% in 2017, more recently 50-55%
-update echo
DM2: severe
-hgb A1C 17.7, glucose on arrival in 600's
-management per primary team
Abnormal troponin:
-suspect acute, non-ischemic myocardial injury in setting of acute illnesses as above
Data:
Abdomen/Pelvis CT: Significant distention of the sigmoid colon, extending into the upper abdomen, but without convincing evidence for sigmoid volvulus. Unusual flipping of the cecum into the left pelvis. This is likely due to an elongated and
tortuous colon, perhaps displaced by the distended sigmoid colon. Moderate circumferential wall thickening involving the rectum and rectosigmoid junction, inferior to the distended portion of the sigmoid colon. There is also moderate amount of stool
within this portion of the sigmoid colon. A component of stercoral colitis in this region is possible. No evidence for free intraperitoneal air. Suggestion of a rounded mass arising from the lateral upper to mid right kidney, and raises concern for
renal cell carcinoma. There are enlarged lymph nodes within the abdomen and pelvis as described, which raises concern for a neoplastic process, especially lymphoma and/or leukemia.
Chest CT 12/24/24: Suboptimal opacification of the pulmonary arteries, and respiratory motion artifact in the inferior lungs. No evidence for central pulmonary embolism. Limited evaluation of the segmental and subsegmental pulmonary arteries. If
there are persistent clinical symptoms, consideration for repeat CT angiography of the chest with pulmonary embolism protocol. No evidence for thoracic aortic dissection or aneurysm. Findings of bronchitis within both lower lungs, especially within
the lower lobes. Linear atelectasis within both lower lungs, probably associated with bronchitis.No significant pleural effusion and no significant pericardial effusion. Coronary artery calcifications are present. In the upper abdomen, distention of
a loop of bowel within the upper abdomen which appears to be a loop of colon. There also appears to be slight thickening of the wall of this loop of distended colon.
Data Reviewed
-
EKG: Tracing Personally Visualized and interpreted (Atrial flutter [address]
CT Scan: Report Reviewed by me (as noted )
Medical Tests (Nuc Med, Echo etc): Report Reviewed by me (Echo 09/20/20: EF 50-55%. Moderate concentric left ventricular hypertrophy. Mildly dilated left atrium. The aortic root is mildly dilated-3.8 cm at sinus of Valsalva.)
Labs: Labs Reviewed by me
[2024-12-25 09:08] LABS: Glycohemoglobin (HgbA1c) 17.7 % (4.0-5.6)
[2024-12-25] MEDS: VIBRAMYCIN PO ×2 (10:08→10:16)
--- NOTE | 2024-12-25 10:25 | W.PN.HOSP.TC ---
Today's Communication/Plan
-
see plan
Assessment / Plan
Assessment / Plan
Patient is a 64-year-old with history of diabetes, hypertension, BPH, morbid obesity, ERASMO not on CPAP and chronic pain who presents to the emergency department with episode of shortness of breath in the setting of approximately 4 months of polyuria
and polydipsia after stopping insulin for presumed normal hemoglobin A1c of 5.5. He is found to have hyperglycemia, significant distention of sigmoid colon, new renal mass, possibly bronchitis.
Chest CT
IMPRESSION: Suboptimal opacification of the pulmonary arteries, and respiratory motion artifact in the inferior lungs. No evidence for central pulmonary embolism. Limited evaluation of the segmental and subsegmental pulmonary arteries.
If there are persistent clinical symptoms, consideration for repeat CT angiography of the chest with pulmonary embolism protocol.
No evidence for thoracic aortic dissection or aneurysm.
Findings of bronchitis within both lower lungs, especially within the lower lobes. Linear atelectasis within both lower lungs, probably associated with bronchitis.
No significant pleural effusion and no significant pericardial effusion.
Coronary artery calcifications are present. Please correlate with symptoms of and risk factors for coronary artery disease, with further workup as clinically appropriate.
In the upper abdomen, distention of a loop of bowel within the upper abdomen which appears to be a loop of colon. There also appears to be slight thickening of the wall of this loop of distended colon. The patient is scheduled for a separate CT of
the abdomen and pelvis, which will be reported separately.
Abdomen/Pelvis CT
IMPRESSION: Significant distention of the sigmoid colon, extending into the upper abdomen, but without convincing evidence for sigmoid volvulus.
Consideration for attempt at decompression tube placement.
Unusual flipping of the cecum into the left pelvis, and new finding from previous examination of December 25, 2011. This is likely due to an elongated and tortuous:, Perhaps displaced by the distended sigmoid colon.
Moderate circumferential wall thickening involving the rectum and rectosigmoid junction, inferior to the distended portion of the sigmoid colon. There is also moderate amount of stool within this portion of the sigmoid colon. A component of
stercoral colitis in this region is possible.
No evidence for free intraperitoneal air.
Suggestion of a rounded mass arising from the lateral upper to mid right kidney, and raises concern for renal cell carcinoma. When clinically feasible, advise further evaluation with dedicated CT of the abdomen without and with contrast with
attention to the kidneys.
There are enlarged lymph nodes within the abdomen and pelvis as described, which raises concern for a neoplastic process, especially lymphoma and/or leukemia. As warranted, consideration for lymph node biopsy.
Abdomen/Pelvis CT
IMPRESSION:
1.8 cm solid enhancing right renal mass, representing neoplasm until proven otherwise.
Nonobstructing left renal calculi.
Continued gaseous distention of the sigmoid colon.
Mild colonic diverticulosis. No evidence of acute diverticulitis.
Mild distal periaortic adenopathy and left common iliac chain adenopathy.
PLAN:
Hyperglycemia with mild hyperosmolar syndrome - Glucose 600 improved to 400 with 10 units of insulin. HD stable.
- admit to inpt
- s/p fluids
- start Lantus 10 units QD
- ISS
- A1c 17.7
- stop sitagliptin 50
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
Abdominal distension - Distended sigmoid colon w/o obstruction and no definitive volvulus.
-made NPO
-gentle IVF
-appreciate GI consult, CRS consulted
SOB - Mild hypoxia to 92%. No PE. Reports intermittent cough and CT suggest bronchitis. BNP 270 (morbid obesity)
- prn nebs
- cough meds
- doxycycline for acute bronchitis
Aflutter - new
Non-ischemic myocardial injury
- telemetry
- trend troponins
- appreciate Cardiology
- eventual TTE
HTN
- continue lisinopril and metoprolol
BPH
- continue tamsulosin
Renal lesion
Lymphadenopathy - CT with suggestion of right kidney mass. Dedicated Ct of the abdomen w/o and w contrast with kidney focus.
-will discuss case with Urology; acute issues to be treated first
DVT PPX - lovenox sq
Code status - Full Code
51 minutes spent on patient care
Anticipated Discharge: > 48 hours
Subjective/Interval History
-
Date of Service: December 25, 2024
states he feels 'panicky' with this information given to him but breathing doesn't feel worse than when he came in
abdominal bloating is typical for him
last BM yesterday
Objective Data
-
Labs:
Laboratory Results
12/24/24 12/25/24 12/25/24
23:40 03:01 07:05
WBC 9.0
Hgb 13.5
Hct 39.2
Plt Count 174
Sodium 127 L 128 L
Potassium 4.4 4.3
Chloride 93 L 92 L
Carbon Dioxide 25 29
BUN 38 H 34 H
Creatinine 0.8 0.8
Glucose 418 H 413 H 392 H
Calcium 8.7 8.8
12/25/24
07:45
WBC
Hgb
Hct
Plt Count
Sodium
Potassium
Chloride
Carbon Dioxide
BUN
Creatinine
Glucose 444 H
Calcium
Vital Signs:
Vital Signs
Temp Pulse Resp BP Pulse Ox
97.9 F 66 14 101/65 93
12/25/24 07:36 12/25/24 07:36 12/25/24 07:36 12/25/24 08:12 12/25/24 07:36
I&O
12/24/24 12/25/24 12/26/24
06:59 06:59 06:59
Intake Total 880 / 880
Balance 880 / 880
Review of Systems
-
History Source: Patient
All other systems: Reviewed and negative
Physical Exam
-
General: No Apparent Distress
HEENT: PERRLA
Respiratory: Clear to Auscultation; Negative Wheezes
Cardiac: Regular Rhythm and S1/S2
GI: Other (distended)
Musculoskeletal: No Edema
Skin: Warm and Dry; Negative Rash
Neuro: AO x 3
Psych: Calm
Data Reviewed
-
Diagnostic Radiology: Report Reviewed by me
Labs: Labs Reviewed by me
[2024-12-25 11:04] LABS: Glucose - Point of Care 443 mg/dl (70-99)
[2024-12-25] MEDS: LANTUS 0.1 UNITS SC ×2 (11:19→12:12)
[2024-12-25] MEDS: NOVOLOG FLEXPEN SC ×2 (11:22→12:11)
[2024-12-25] MEDS: SUBUTEX 4 MG SL (11:45)
[2024-12-25] MEDS: TOPROL XL 25 MG PO (11:45)
[2024-12-25 12:18] LABS: Glucose 431 mg/dl (70-99)
--- NOTE | 2024-12-25 12:24 | W.PN.UPDATE ---
Update Note
Progress Note Update
Patient seen recently on floor. As Dr. Pierre in office and GI deferring decompression to us, Dr. Pierre has asked that I perform the decompression. I discussed situation in detail with patient and his . Recommended colonoscopic decompression
with potential for placement of a colonoscopic decompression tube for possible sigmoid volvulus. Risks and benefits discussed. Risks covered included but not limited to bleeding, infection, perforation, missed lesion, lack of success, and
anesthetic risks. He agrees to proceed. I also discussed that if it is unsuccessful or perforation occurs, an open Darlene's resection would be in order. Risks and benefits discussed. Risks covered include but not limited to bleeding,
infection, ureteral injury, bowel or solid organ injury, hernia, ongoing symptoms of constipation and anesthetic risks. He agrees to undergo this if needed. All questions were answered.
--- NOTE | 2024-12-25 13:01 | CON.CRS ---
Consultation
-
Date/Time Consultation Requested: 12/25/2024, 08:30
Date/Time Consultation Performed: 12/25/2024, 8:45
Requesting Provider: Cherelle Cotton
Performing Provider: Jl Pierre MD
Reason for Consultation: sigmoid distention
Medical History
-
Chief Complaint: SOB
History of Present Illness:
64-year-old male with a past medical history of noncompliant type 2 diabetes, history of some [place] use, obesity, and hypertension, presents to [facility] complaining of shortness of breath. The patient states he stopped his insulin 'a wild
ago' because he thought he been controlling his diabetes via diet. He had noticed his abdomen getting distended off and on for more recently it has become worse. It got to the point where he was having shortness of breath yesterday. His last
bowel movements and flatus were yesterday but he has not had any today. He had persistent diarrhea yesterday. He has never had a colonoscopy before. His only previous surgeries include 2 orthopedic surgeries. He is not on any blood thinners. He
denies a family history of rectal or colon cancer.
In the ER his WBC was 12.8 and is 9.0 today. His temperature has remained afebrile. He is tachycardic with heart rate in the 120s and 130s. CT of the abdomen and pelvis done yesterday shows distention of the sigmoid colon extending to the upper
abdomen and unusual flipping of the cecum into the left pelvis. There is also moderate circumferential wall thickening involving the rectum and rectosigmoid junction inferior to the distended portion of the sigmoid colon. There is a moderate
amount of stool in the sigmoid colon. A repeat CT today showed a 1.8 cm enhancing right renal mass, continued gas distention of the sigmoid colon, mild colonic diverticulosis with no evidence of acute diverticulitis. Given these findings, we have
been consulted for further recommendation.
Past Medical History
Past Medical History: HTN, NIDDM (non-complient) and Other (BPH, history of Suboxone use)
Past Surgical History: Orthopedic (hip and knee)
Social History
Tobacco: Non-Smoker
Alcohol: None
Family History
Family History: Reviewed & Not Pertinent
Allergies / Home Medications
Allergy/AdvReac Type Severity Reaction Status Date / Time
No Known Allergies Allergy Verified 12/27/20 07:05
�Medication �Instructions �Recorded �Confirmed �Type
atorvastatin 40 mg tablet 40 mg PO HS 12/24/24 12/24/24 History
buprenorphine 4 mg-naloxone 1 mg 0.5 film buccal HSPRN PRN opioid 12/24/24 12/24/24 History
sublingual film (Suboxone) dependence
buprenorphine 4 mg-naloxone 1 mg 1 film buccal NOON 12/24/24 12/24/24 History
sublingual film (Suboxone)
calcium carbonate 500 mg PO DAILY 12/24/24 12/24/24 History
lidocaine 4 % topical patch 1 patch topical BID right shoulder 12/24/24 12/24/24 History
lisinopril 2.5 mg tablet 2.5 mg PO NOON 12/24/24 12/24/24 History
magnesium oxide 400 mg PO DAILY 12/24/24 12/24/24 History
metoprolol succinate 25 mg 12.5 mg PO NOON 12/24/24 12/24/24 History
tablet,extended release 24 hr
tamsulosin 0.4 mg capsule 0.4 mg PO DAILYPRN PRN bloating 12/24/24 12/24/24 History
zinc sulfate 50 mg zinc (220 mg) 50 mg PO DAILY 12/24/24 12/24/24 History
tablet
Review of Systems
-
History Source: Patient
Respiratory: Trouble Breathing
Abdomen/GI: Abdominal Pain, Diarrhea and Constipated
A 10 point review of systems was completed, and was negative except as per HPI.
Physical Exam
Vital Signs
Temp 98.2 F 12/25/24 12:11
Pulse 132 12/25/24 12:11
Resp Rate 18 12/25/24 12:11
Blood pressure 121/81 12/25/24 12:11
SaO2 92 12/25/24 12:11
12/24/24 12/25/24 12/26/24
06:59 06:59 06:59
Actual Weight 150.91 kg
Body Mass Index (BMI) 42.7
Lab Results / Allergies
12/25/24 07:05
12/25/24 11:50
WBC 9.0 10^3/uL (4.8-10.8) 12/25/24 07:05
Hgb 13.5 g/dL (13.0-18.0) 12/25/24 07:05
Hct 39.2 % (39.0-52.0) 12/25/24 07:05
Plt Count 174 10^3/uL (130-400) 12/25/24 07:05
Allergy/AdvReac Type Severity Reaction Status Date / Time
No Known Allergies Allergy Verified 12/27/20 07:05
Physical Exam
General: Well Developed, Well Nourished and No Apparent Distress
GI: Non Distended, Distended and Other (abdomen tilted towards the left)
Skin: Warm
Neuro: AO x 3
Data Reviewed
-
CT Scan: Image Personally Visualized and interpreted, Report Reviewed by me and Discussed with Patient
Labs: Labs Reviewed by me, Discussed with Physician and Discussed with Patient
Old Records: Reviewed
Assessment / Plan
-
Assessment: 64-year-old male, noncompliant diabetic, noncompliant who presents to [facility] complaining of shortness of breath and abdominal pain found to have a distended sigmoid colon, flipping of the cecum and colon pelvis and moderate
circumferential wall thickening in the rectum and rectosigmoid junction with question of a renal mass
Plan:
-Remain n.p.o.
-Given CT, will need an urgent flexible sigmoidoscopy with decompression. Discussed with the patient who is in agreement. Arrangements in place
-Eventual renal mass workup
--- NOTE | 2024-12-25 13:08 | PN.DE.MGMTRT ---
Insulin Management
- -
12/25/2024 Diabetes Management Consult
Patient admitted with shortness of breath with approximately 4 months of polyuria and polydipsia; found to have distention of sigmoid colon, new renal mass, possible bronchitis. PMH history of diabetes, hypertension, BPH, morbid obesity, ERASMO not
on CPAP and chronic pain. A1C on admission 17.7%, cr .8, eGFR > 60.
Patient is awake alert and oriented oob in chair able to discuss diabetes management, at bedside and supportive. Patient states 2 years ago he was taking insulin but his A1C was 5.5 so he stopped his insulin. Was taking 30 units lantus @ hs
with novolog 18 units AC 2 years ago.
Glucose on admission > 600. Dr. Bone stated 10 units lantus this AM, will add additional 10 units. Patient is NPO will stop AC novolog 5 units and start high corrective insulin Q6 hours. Patient will remain NPO for testing and procedures today.
Discussed with nurse.
Will follow
Diabetes History
- -
Type of Diabetes: 2 requiring insulin
Pre-Admission Diabetes Regimen
12/24/24 12/25/24 12/25/24
20:48 03:01 07:05
Creatinine 1.0 0.8 0.8
Lab Results
Hemoglobin A1c 17.7 % (4.0-5.6) H 12/25/24 07:05
Insulin Pump Settings
IP Diabetes Regimen
12/24/24 12/24/24 12/24/24
20:48 22:07 23:27
Glucose 660 H*
POC Glucose > 600 H* 516 H*
12/24/24 12/25/24 12/25/24
23:40 02:53 03:01
Glucose 418 H 413 H
POC Glucose 429 H
12/25/24 12/25/24 12/25/24
07:05 07:23 07:45
Glucose 392 H 444 H
POC Glucose 421 H
12/25/24 12/25/24
11:02 11:50
Glucose 431 H
POC Glucose 443 H
Patient Education
[2024-12-25 13:20] LABS: Glucose - Point of Care 467 mg/dl (70-99)
--- NOTE | 2024-12-25 13:40 | WOUNDNOTE ---
R CALF/ANKLE (LATERAL)(with photo flash)
--- NOTE | 2024-12-25 13:40 | WOUNDNOTE ---
L ANKLE/CALF (MEDIAL)
--- NOTE | 2024-12-25 13:42 | WOUNDNOTE ---
WOC RN note: Patient admitted with hyperglycemia. Patient lives with . Patient does his own wound care. He used to go the [facility] but doesn't want to go back.
See H&P for complete history.
PMH: CHF, HTN, IDDM, chronic back pain, lymphedema.
Wound Location and type/assessment: Patient admitted with: R lateral calf/ankle deep dermal venous stasis ulcers (started from trauma). L medial ankle and L lateral calf hyperkeratotic areas unsure is open underneath. Trace LE edema. Pedal pulses
easily heard via portable Doppler. 12/16/17 Arterial Doppler R TALHA .97, R toe pressure .83; L TALHA 1.05, L toe pressure .95, normal. Patient wears Surepress compression wraps or Yonatan wraps with Tubigrip on top. He has a compression pump but hasn't been
using it lately. Coccyx red skin suspect r/t moisture or stage 1 pressure. Patient can ambulates.
Appetite: fair. Currently NPO for a procedure.
Pressure redistribution devices in place: [employer] Accumax. Patient moves self.
Plan: RLE dressing changed. Protective dressing applied LLE. Bilateral knee high Yonatan wraps applied. Bariatric air chair cushion given.
Will confirm orders including knee high compression with Dr. Bone and updated RN Steve.
Care plan to be updated and will follow as needed.
Note to case management requested for discharge: VN if patient wants.
Recommend follow up at wound care center upon discharge.
--- NOTE | 2024-12-25 14:35 | CM ---
CM attempted to see patient several times, patient currently off floor for procedure. CM will follow up once patient return to room to complete initial assessment.
Plan; continue to follow for all medical needs.
[2024-12-25 14:39] LABS: TSH Reflex To Free T4 1.71 uIU/ml (0.47-4.68)
--- NOTE | 2024-12-25 14:50 | W.PN.UPDATE ---
Update Note
Progress Note Update
Flex sig done. Lots of stool in rectosigmoid. Sigmoid was distended but visualized mucosa pink and viable. No spiral or 'birds beak' seen to indicate obstruction/active volvulus. Will put on clears and if looks ok in am, resume regular diet and
advocate enemas/laxatives from there forward. Patient's updated.
[2024-12-25 15:15] LABS: Glucose - Point of Care 393 mg/dl (70-99)
[2024-12-25] MEDS: LOVENOX 40 MG SC (17:13)
[2024-12-25] MEDS: NOVOLOG FLEXPEN-HIGH RESISTANCE 12 UNITS SC ×2 (17:16→23:22)
[2024-12-25 17:56] LABS: Glucose - Point of Care 511 mg/dl (70-99)
[2024-12-25] MEDS: LIPITOR 40 MG PO (20:30)
[2024-12-25] MEDS: DESENEX/MITRAZOL/ZEASORB 1 APPLIC TOPICAL (20:31)
[2024-12-25 21:18] LABS: Troponin I 0.059 ng/ml
[2024-12-25 21:47] LABS: Glucose - Point of Care 399 mg/dl (70-99)
--- NOTE | 2024-12-25 22:30 | PTCARENOTE ---
Pt with an accuchek result of 511 prior to shift change (1753), medicated with Novolog shortly before (1715). D/w covering provider, resume regular HS accuchek and report back to provider to treat accordingly. HS accuchek resulted 399, reported to
covering SPEECH TEACHER, 12 units Novolog High-Resistance given per sliding scale protocol as ordered, see MAR.
[2024-12-26 03:22] VITALS: BP 106/76
[2024-12-26 06:00] VITALS: BMI 42.2
[2024-12-26 07:35] VITALS: BP 144/91
--- NOTE | 2024-12-26 07:39 | PN.DE.MGMTRT ---
Insulin Management
- -
12/26/2024: Diabetes Management Follow Up:
Patient admitted with SOB with approximately 4 months of polyuria and polydipsia; found to have distention of sigmoid colon, new renal mass, possible bronchitis. PMH: T2DM, HTN, BPH, Morbid Obesity, ERASMO not on CPAP and chronic pain. A1C on admission
17.7%, Cr 0.8, eGFR > 60. Pt states 2 years ago he was taking insulin but his A1C was 5.5 so he stopped his insulin. At that time, he was taking 30 units Lantus @ hs w/NovoLog 18 units AC. Glucose was >600 on admission.
Patient is awake, alert, oriented, sitting up in chair, offers no complaints, able to discuss diabetes management.
He was started on high corrective insulin and Lantus yesterday. He received 20 units of Lantus in AM. Pt was NPO most of yesterday and was started on clear liquid diet after procedure. His glucose trended up to 511 at dinner time, overall glucose
range was 393 to 511, requiring 12 units of corrective insulin.
Will increase Lantus to 25 units daily in AM and start NovoLog 10 units AC. Cont high corrective insulin AC.
Will cont to follow and make further insulin dose adjustments if necessary.
Requesting for a new glucosse monitor- Diabetes RN educator will provide meter late today
Diabetes History
- -
Type of Diabetes: 2 requiring insulin
Pre-Admission Diabetes Regimen
12/25/24
07:05
Creatinine 0.8
Lab Results
Hemoglobin A1c 17.7 % (4.0-5.6) H 12/25/24 07:05
Insulin Pump Settings
IP Diabetes Regimen
12/25/24 12/25/24 12/25/24
07:05 07:45 11:02
Glucose 392 H 444 H
POC Glucose 443 H
12/25/24 12/25/24 12/25/24
11:50 13:19 15:13
Glucose 431 H
POC Glucose 467 H* 393 H
12/25/24 12/25/24
17:54 21:45
Glucose
POC Glucose 511 H* 399 H
Patient Education
[2024-12-26 07:58] LABS: % Basophils 0.5 % (0-2); % Eosinophils 1.2 % (0-6); % Immature Granulocytes 0.5 % (0-0.5); % Lymphocytes 24.4 % (20.5-51.1); % Monocytes 6.8 % (1.7-9.3); % Neutrophils 66.6 % (42.2-75.2); Absolute Basophils 0.1 10^3/uL (0-0.2); Absolute Eosinophils 0.1 10^3/uL (0-0.7); Absolute Immature Granulocytes 0.1 10^3/uL (0-0.05); Absolute Lymphocytes 2.3 10^3/uL (1.2-3.4); Absolute Monocytes 0.6 10^3/uL (0.1-0.6); Absolute Neutrophils 6.3 10^3/uL (1.4-6.5); Hematocrit 45.8 % (39.0-52.0); Hemoglobin 15.2 g/dL (13.0-18.0); Mean Corp Hgb Conc. 33.2 g/dL (33.0-37.0); Mean Corpuscular Hgb 27.9 pg (27.0-31.0); Mean Corpuscular Volume 84.2 fL (80.0-94.0); Mean Platelet Volume 10.5 fL (7.4-10.4); Nucleated Red Blood Cells % 0 % (-); Platelet Count 203 10^3/uL (130-400); Red Blood Cell Count 5.44 10^6/uL (4.70-6.10); Red Cell Dist. Width 13.1 % (11.5-14.5); White Blood Cell Count 9.5 10^3/uL (4.8-10.8)
[2024-12-26 08:02] LABS: Glucose - Point of Care 325 mg/dl (70-99)
[2024-12-26 08:29] LABS: Blood Urea Nitrogen 25 mg/dl (9-20); Carbon Dioxide 28 mmol/L (22-30); Chloride 94 mmol/L (98-107); Estimated Creatinine Clearance > 125 ml/min; Glucose 306 mg/dl (70-99); Magnesium 2.3 mg/dl (1.6-2.3); Potassium 4.4 mmol/L (3.5-5.1); Sodium 133 mmol/L (135-145); eGFR > 60.00
--- NOTE | 2024-12-26 08:49 | W.PN.CD ---
Today's Communication / Plan
-
Toprol XL now at 25mg daily, and lisinopril held to allow for BP room
will start heparin drip; and once no more procedures, transition to eliquis 5mg bid
will need to consider JOHN/DCCV on Sunday if unable to control rates
echo
Impression / Plan
-
Abdominal process, distension:
-GI and surgery consulted.
Atrial flutter:
-he has untreated sleep apnea and this will need to be addressed
-new, seems typical
-HR 100-120
-BP on low side: Toprol XL now at 25mg daily, and lisinopril held to allow for BP room
-[id number] score is 3 for DM, HTN, and hx CM
-will start heparin drip; and once no more procedures, transition to eliquis 5mg bid
-requires monitoring of Hgb
-will need to consider JOHN/DCCV on Sunday if unable to control rates
Resolved NICM:
-EF was as low as 20% in 2017, more recently 50-55%
-cont Toprol XL; ACEi held for low BP
-update echo
DM2: severe
-hgb A1C 17.7, glucose on arrival in 's
-management per primary team
Abnormal troponin:
-acute, non-ischemic myocardial injury in setting of acute illnesses as above
Morbid obesity
Lymphedema: legs wrapped
Data:
Abdomen/Pelvis CT: Significant distention of the sigmoid colon, extending into the upper abdomen, but without convincing evidence for sigmoid volvulus. Unusual flipping of the cecum into the left pelvis. This is likely due to an elongated and
tortuous colon, perhaps displaced by the distended sigmoid colon. Moderate circumferential wall thickening involving the rectum and rectosigmoid junction, inferior to the distended portion of the sigmoid colon. There is also moderate amount of stool
within this portion of the sigmoid colon. A component of stercoral colitis in this region is possible. No evidence for free intraperitoneal air. Suggestion of a rounded mass arising from the lateral upper to mid right kidney, and raises concern for
renal cell carcinoma. There are enlarged lymph nodes within the abdomen and pelvis as described, which raises concern for a neoplastic process, especially lymphoma and/or leukemia.
Chest CT 12/24/24: Suboptimal opacification of the pulmonary arteries, and respiratory motion artifact in the inferior lungs. No evidence for central pulmonary embolism. Limited evaluation of the segmental and subsegmental pulmonary arteries. If
there are persistent clinical symptoms, consideration for repeat CT angiography of the chest with pulmonary embolism protocol. No evidence for thoracic aortic dissection or aneurysm. Findings of bronchitis within both lower lungs, especially within
the lower lobes. Linear atelectasis within both lower lungs, probably associated with bronchitis.No significant pleural effusion and no significant pericardial effusion. Coronary artery calcifications are present. In the upper abdomen, distention of
a loop of bowel within the upper abdomen which appears to be a loop of colon. There also appears to be slight thickening of the wall of this loop of distended colon.
Physical Exam
Vital Signs/Labs
Vital Signs
Temp Pulse Resp BP Pulse Ox
97.4 F 129 20 144/91 97
12/26/24 07:35 12/26/24 07:35 12/26/24 07:35 12/26/24 07:35 12/26/24 07:35
12/25/24 12/26/24 12/27/24
06:59 06:59 06:59
Actual Weight 150.91 kg 148.892 kg
12/26/24 07:11
12/26/24 07:11
Magnesium 2.3 mg/dl (1.6-2.3) 12/26/24 07:11
Triglycerides 389 mg/dl (10-149) H 12/25/24 07:05
LDL Cholesterol, Calc 91 mg/dl 12/25/24 07:05
VLDL Cholesterol, Calc 77 mg/dl (0-30) H 12/25/24 07:05
HDL Cholesterol 51 mg/dl 12/25/24 07:05
12/24/24
20:48
Xar-Z-Derlftnupil Pept 270
LAB Results
12/24/24 12/25/24 12/25/24
20:48 03:01 07:05
Troponin I 0.068 H* 0.074 H* 0.077 H*
12/25/24 12/25/24
14:37 20:46
Troponin I Cancelled 0.059 H*
Physical Exam
Constitutional: No acute distress and Comfortable
EENT: Moist mucous membranes
Cardiovascular: JVD pressure is normal, Systolic murmur absent, Rhythm/rate is irregular and Pedal edema present
Respiratory: Respiratory effort normal
Neuro/Psych: AO x 3
Data Reviewed
-
Date of Service: December 26, 2024
EKG: Other (Tele: A flutter 100-120)
Labs: Labs Reviewed by me
[2024-12-26] MEDS: DESENEX/MITRAZOL/ZEASORB 1 APPLIC TOPICAL ×2 (08:52→20:20)
[2024-12-26] MEDS: VIBRAMYCIN 100 MG PO ×2 (08:56→20:21)
[2024-12-26] MEDS: TOPROL XL 25 MG PO (08:56)
[2024-12-26] MEDS: NOVOLOG FLEXPEN 10 UNITS SC ×3 (08:57→18:33)
[2024-12-26] MEDS: NOVOLOG FLEXPEN-HIGH RESISTANCE 10 UNITS SC ×2 (08:58→13:01)
[2024-12-26 09:41] LABS: Hematocrit 40.9 % (39.0-52.0); Hemoglobin 13.4 g/dL (13.0-18.0); Mean Corp Hgb Conc. 32.8 g/dL (33.0-37.0); Mean Corpuscular Hgb 27.7 pg (27.0-31.0); Mean Corpuscular Volume 84.7 fL (80.0-94.0); Mean Platelet Volume 10.5 fL (7.4-10.4); Platelet Count 186 10^3/uL (130-400); Red Blood Cell Count 4.83 10^6/uL (4.70-6.10); Red Cell Dist. Width 12.9 % (11.5-14.5); White Blood Cell Count 9.3 10^3/uL (4.8-10.8)
[2024-12-26 09:52] LABS: APTT 25.4 Sec (23.4-35.0)
[2024-12-26] MEDS: LANTUS 0.25 UNITS SC (10:20)
[2024-12-26 10:21] LABS: Glucose - Point of Care 294 mg/dl (70-99)
[2024-12-26] MEDS: HEPARIN 25000 UNITS/250 ML IV (10:23)
--- NOTE | 2024-12-26 11:03 | W.PN.HOSP.TC ---
Today's Communication/Plan
-
see plan
Assessment / Plan
Assessment / Plan
Patient is a 64-year-old with history of diabetes, hypertension, BPH, morbid obesity, ERASMO not on CPAP and chronic pain who presents to the emergency department with episode of shortness of breath in the setting of approximately 4 months of polyuria
and polydipsia after stopping insulin for presumed normal hemoglobin A1c of 5.5. He is found to have hyperglycemia, significant distention of sigmoid colon, new renal mass, possibly bronchitis.
Chest CT
IMPRESSION: Suboptimal opacification of the pulmonary arteries, and respiratory motion artifact in the inferior lungs. No evidence for central pulmonary embolism. Limited evaluation of the segmental and subsegmental pulmonary arteries.
If there are persistent clinical symptoms, consideration for repeat CT angiography of the chest with pulmonary embolism protocol.
No evidence for thoracic aortic dissection or aneurysm.
Findings of bronchitis within both lower lungs, especially within the lower lobes. Linear atelectasis within both lower lungs, probably associated with bronchitis.
No significant pleural effusion and no significant pericardial effusion.
Coronary artery calcifications are present. Please correlate with symptoms of and risk factors for coronary artery disease, with further workup as clinically appropriate.
In the upper abdomen, distention of a loop of bowel within the upper abdomen which appears to be a loop of colon. There also appears to be slight thickening of the wall of this loop of distended colon. The patient is scheduled for a separate CT of
the abdomen and pelvis, which will be reported separately.
Abdomen/Pelvis CT
IMPRESSION: Significant distention of the sigmoid colon, extending into the upper abdomen, but without convincing evidence for sigmoid volvulus.
Consideration for attempt at decompression tube placement.
Unusual flipping of the cecum into the left pelvis, and new finding from previous examination of December 25, 2011. This is likely due to an elongated and tortuous:, Perhaps displaced by the distended sigmoid colon.
Moderate circumferential wall thickening involving the rectum and rectosigmoid junction, inferior to the distended portion of the sigmoid colon. There is also moderate amount of stool within this portion of the sigmoid colon. A component of
stercoral colitis in this region is possible.
No evidence for free intraperitoneal air.
Suggestion of a rounded mass arising from the lateral upper to mid right kidney, and raises concern for renal cell carcinoma. When clinically feasible, advise further evaluation with dedicated CT of the abdomen without and with contrast with
attention to the kidneys.
There are enlarged lymph nodes within the abdomen and pelvis as described, which raises concern for a neoplastic process, especially lymphoma and/or leukemia. As warranted, consideration for lymph node biopsy.
Abdomen/Pelvis CT
IMPRESSION:
1.8 cm solid enhancing right renal mass, representing neoplasm until proven otherwise.
Nonobstructing left renal calculi.
Continued gaseous distention of the sigmoid colon.
Mild colonic diverticulosis. No evidence of acute diverticulitis.
Mild distal periaortic adenopathy and left common iliac chain adenopathy.
PLAN:
Hyperglycemia
Uncontrolled DM with A1c 17.7%
- appreciate DM [employer] SALES REPRESENTATIVE consult
- new start Lantus and short acting insulin
Abdominal distension
-s/p Flex Sig evening 12/25 - no e/o volvulus
-on clears
-considering enema, F/U further GI recommendations
SOB - Mild hypoxia to 92%. No PE. Reports intermittent cough and CT suggest bronchitis. BNP 270 (morbid obesity)
- prn nebs
- cough meds
- doxycycline for acute bronchitis
- suspect SOB related to abdominal distention as well
Aflutter - new
Non-ischemic myocardial injury
- telemetry
- trend troponins
- appreciate Cardiology
- TTE
- per Cardiology: will need to consider JOHN/DCCV on Sunday if unable to control rates
HTN
- continue lisinopril and metoprolol
BPH
- continue tamsulosin
Renal lesion
Lymphadenopathy - CT with suggestion of right kidney mass. Dedicated Ct of the abdomen w/o and w contrast with kidney focus.
-discussing with Heme next steps; will also need Urology consult here or as outpatient
DVT PPX - lovenox sq
Code status - Full Code
51 minutes spent on patient care
Anticipated Discharge: > 48 hours
Subjective/Interval History
-
Date of Service: December 26, 2024
breathing a little difficult this morning, now resolved . breathing normally on room air
hasn't yet had a BM
Objective Data
-
Labs:
Laboratory Results
12/26/24 12/26/24 12/26/24
07:11 09:07 16:30
WBC 9.5 9.3
Hgb 15.2 13.4
Hct 45.8 40.9
Plt Count 203 186
APTT 25.4 Pending
Sodium 133 L
Potassium 4.4
Chloride 94 L
Carbon Dioxide 28
BUN 25 H
Creatinine 0.7
Glucose 306 H
Calcium 9.0
Vital Signs:
Vital Signs
Temp Pulse Resp BP Pulse Ox
97.4 F 129 20 144/91 97
12/26/24 07:35 12/26/24 07:35 12/26/24 07:35 12/26/24 07:35 12/26/24 07:35
I&O
12/25/24 12/26/24 12/27/24
06:59 06:59 06:59
Intake Total 880 / 880 50 / 50
Balance 880 / 880 50 / 50
Review of Systems
-
History Source: Patient
All other systems: Reviewed and negative
Physical Exam
-
General: No Apparent Distress
HEENT: PERRLA
Respiratory: Clear to Auscultation; Negative Wheezes
Cardiac: Regular Rhythm and S1/S2
GI: Other (distended)
Musculoskeletal: No Edema
Skin: Warm and Dry; Negative Rash
Neuro: AO x 3
Psych: Calm
Data Reviewed
-
Diagnostic Radiology: Report Reviewed by me
Labs: Labs Reviewed by me
--- NOTE | 2024-12-26 11:05 | W.PN.CRS1 ---
Today's Communication / Plan
-
As below
Assessment/Plan
-
64-year-old male with PMH of DM (stopped taking his insulin), HTN who presents for increasing abdominal bloating since September leading to worsening dyspnea over the last few days causing him to come to the ED; he denies any abdominal pain, nausea
or vomiting; his last BM was yesterday and last flatus was yesterday; in the ED, WBC 9.0, CTAP showing massively distended sigmoid with tapering around the rectosigmoid junction as well as thickening of the rectum and rectosigmoid, no convincing
evidence for sigmoid volvulus, ascending colon and cecum displaced to the left side of the abdomen (CTAP from 2011 showing a ascending colon in usual anatomic position); personally reviewed and interpreted, there is significant tapering in diameter
of the sigmoid at the rectosigmoid junction, raising my concern for sigmoid volvulus versus other cause of lead point, such as stricture or mass
Afebrile, HR ranging from 60-130, normotensive
WBC 9.5
� Massive segmental distention of the sigmoid associated with thickening of the rectosigmoid and rectum
�S/p flex sig with significant stool and gas, no concern for volvulus, inflammation or obstructing lesion
�No surgical intervention recommended at this time; would recommend workup and treatment for motility disorder
�Discussed with Dr. Harrington from GI; appreciate their input
�Okay for clears; check with GI for diet advancement
� No antibiotics necessary at this time
� Recommend DVT PPx; no surgery planned so no contraindication for AC from my standpoint
� Appreciate hospitalist; colorectal surgery to sign off, please call for any questions or concerns
Subjective Data
Subjective Data
Date of Service: December 26, 2024
Feeling better today, but still little bloated. Denies any nausea or vomiting. No bowel function yet since flexible sigmoidoscopy. Denies any abdominal pain.
Objective Data
-
Vital Signs
Temp Pulse Resp BP Pulse Ox
97.4 F 129 20 144/91 97
12/26/24 07:35 12/26/24 07:35 12/26/24 07:35 12/26/24 07:35 12/26/24 07:35
Intake & Output
12/25/24 12/26/24 12/27/24
06:59 06:59 06:59
Intake Total 880 / 880 50 / 50
Balance 880 / 880 50 / 50
Intake:
Oral fluids 480 / 480
IV fluids (Total) 400 / 400 50 / 50
ns 50 / 50
Other:
Number of approximated MODERATE 2 1
amounts of urine
Lab Results
12/26/24 09:07
12/26/24 07:11
Physical Exam
-
General: No Acute Distress and AOx3
Abdomen: Soft, Distended (Moderately distended with tympany (significantly improved from yesterday)), Non Tender, No Guarding and No Rebound
Skin: Warm and Dry
[2024-12-26 11:38] VITALS: BP 97/57
[2024-12-26 11:59] LABS: Glucose - Point of Care 324 mg/dl (70-99)
--- NOTE | 2024-12-26 12:55 | W.PN.GI.CBS2 ---
Addendum entered and electronically signed by Shanique Harrington MD 12/26/24 16:54:
I saw and examined the patient.
The CELL TUBER MACHINE's note was reviewed and I agree with the note.
Reconsulted for helping with bowel regimen and management of chronic constipation with significantly dilated colon noted on CT
Comment: Status post flexible sigmoidoscopy yesterday with Dr. Paul for possible sigmoid volvulus but no obvious volvulus was noted but a large amount of stool with dilated sigmoid colon was noted. He denies any abdominal pain today. He has not
had any bowel movement since after the sigmoidoscopy. No nausea or vomiting he is tolerating diet.
Assessment and plan colonic ileus with possible pseudoobstruction and Altheimer's. Status post flex sig yesterday. Will start him on aggressive bowel regimen with MiraLAX twice daily and senna twice daily and enemas as needed. May also need to
start Linzess if not improved. Avoid narcotics and correct electrolytes as needed. Will also need an eventual colonoscopy has not had 1 in the past, follow-up as outpatient.
2. He also has a renal mass and lymphadenopathy noted on CT workup per primary team and will need hematology input inpatient versus outpatient.
Original Note:
Today's Communication / Plan
-
as per plan
Assessment / Plan
-
Pt is a 64yo with hx IDDM, HTN, hypercholesterolemia, cardiomyopathy, chronic pain, BPH, sleep apnea, obesity, depression presents with shortness of breath. On admission pt admits to recently weaning self off insulin with polyuria and polydipsia.
On admission he is noted with multiple issues including glucose of 660, troponin 0,068 with mild rise after admission, na 125, and WBC 12,800. Imaging with CT chest- suboptimal pulm arteries but neg PE. No dissection or aneurysm, no pericardial or
pleural effusion. There was noted distended loop of bowel in upper abdomen with distention. Further follow up CT A/p with distention of sigmoid colon without volvulus with consideration for decompression tube. Also noted flipping of cecum with
elongated and tortuous with possible displacement of distended sigmoid. Also moderate wall thickening of rectosigmoid inferior to distended sigmoid with moderate stool in portion of sigmoid and possible stercoral colitis. Ct further suggest mass
lateral to upper to mid right kidney concern for renal cell CA with need for further with and without Ct imaging and enlarged lymph nodes with concern for neoplastic process - lymphoma or leukemia.
--Thickening of the rectosigmoid and rectum status post flex sig with colorectal surgery. Significant stool and gas. No volvulus, inflammation or obstructing lesion.
-renal mass concern for renal Cell CA
-enlarged lymph nodes with concern for neoplastic process
-aflutter-new
-hypotension
-occasional dysphagia
-hyponatremia
other med problems:
-HTN
-cardiomyopathy
-chronic pain-NSAID use
-BPH
-sleep apnea
-obesity
-depression
PLAN:
Give enema today
Start oral bowel regimen daily with Miralax
updated at bedside
Subjective
Subjective
Date of Service: December 26, 2024
To see patient again for bowel regimen recommendations. Patient currently eating lunch without any complaints. Denies any nausea. No bowel movement since yesterday.
Objective
Data Reviewed
Laboratory Data:
Laboratory Results
12/26/24 09:07
12/26/24 07:11
Laboratory Results
APTT 25.4 Sec (23.4-35.0) 12/26/24 09:07
Magnesium 2.3 mg/dl (1.6-2.3) 12/26/24 07:11
Total Bilirubin 1.0 mg/dl (0.2-1.3) 12/24/24 20:48
AST 46 U/L (17-59) 12/24/24 20:48
ALT 23 U/L (0-50) 12/24/24 20:48
Alkaline Phosphatase 310 U/L (38-126) H 12/24/24 20:48
Vital Signs and I&O:
Vital Signs
Temp Pulse Resp BP Pulse Ox
97.9 F 101 20 97/57 95
12/26/24 11:38 12/26/24 11:38 12/26/24 11:38 12/26/24 11:38 12/26/24 11:38
I&O
12/25/24 12/26/24 12/27/24
06:59 06:59 06:59
Intake Total 880 / 880 50 / 50
Balance 880 / 880 50 / 50
Physical Exam
Physical Exam
HEENT: Anicteric
Cardiology: Normal Sinus Rhythm and Murmur
Pulmonary: Clear
GI: Soft, Distended (Softly distended with tympany), Non Tender and Normal Bowel Sounds
Neuro: Non Focal
[2024-12-26] MEDS: HYDROPHOR 1 APPLIC TOPICAL (13:00)
[2024-12-26] MEDS: SUBUTEX 4 MG SL (13:03)
--- NOTE | 2024-12-26 13:17 | CM ---
CM reviewed chart, patient seen with , initial assessment completed. Patient resides with his and two adult children (currently in College) in a multiple story home, few steps to enter. Patient reports VN in past after knee/hip surgery,
denies any DME or SNF history. Patient PCP Shankar Mena, pharmacy [facility], confirms prescription coverage. Gastroenterology following, Cardiology following. CM will continue to follow for all discharge planning needs.
Plan; home with family, watch for VN
--- NOTE | 2024-12-26 15:52 | CARDSERVLU ---
Echocardiogram with Lumason completed after protocol screening completed. Allergies verified.
Patent IV site: RFA (existing)
IV site flushed with 0.9% NaCl pre and post administration.
Diluted bolus method utilized to enhance visualization of ventricular pelaez.
Total volume given: 6 mL
Patient tolerated all procedures well without complications.
--- NOTE | 2024-12-26 16:09 | PTCARENOTE ---
I met with Merrill and his to review diabetes management. Merrill previously used a OneTouch Verio glucometer at home and I reinforced proper set up and use of the meter. Prescriptions to be sent to his pharmacy. Discussed normal target glucose
ranges and a monitoring schedule. Encouraged Merrill to follow up with his PCP with blood glucose levels. Discussed both long and rapid acting insulin; onset/peak/duration. Reviewed use of the insulin pen and encouraged Merrill to administer his own
injections with RN supervision while admitted. Hypoglycemia was reviewed and written material was provided. Merrill verbalized understanding and information on the outpatient DSME program was provided as a resource.
[2024-12-26] MEDS: NSS 1000 IV (16:14)
[2024-12-26 16:39] LABS: Glucose - Point of Care 279 mg/dl (70-99)
[2024-12-26 16:54] LABS: APTT 28.7 Sec (23.4-35.0)
[2024-12-26 16:59] VITALS: BP 118/79
--- NOTE | 2024-12-26 18:24 | PTCARENOTE ---
500ml milk and molasses enema given prior to seeing new order for 300ml milk and molasses enema. Confirmed w/ Dr. Harrington that patient is on ly to receive one enema. Had very large brown BM after enema.
[2024-12-26] MEDS: NOVOLOG FLEXPEN-HIGH RESISTANCE 7 UNITS SC (18:32)
[2024-12-26 19:47] VITALS: BP 96/58
[2024-12-26] MEDS: SENOKOT 17.2 MG PO (20:21)
[2024-12-26] MEDS: MIRALAX 17 GRAMS PO (20:21)
[2024-12-26] MEDS: LIPITOR 40 MG PO (20:22)
[2024-12-26 22:01] LABS: Glucose - Point of Care 234 mg/dl (70-99)
[2024-12-26] MEDS: XANAX 0.25 MG PO (22:28)
[2024-12-26 23:50] VITALS: BP 88/61
--- NOTE | 2024-12-27 00:29 | W.PN.UPDATE ---
Update Note
Progress Note Update
0 pt very anxious about his condition. will try lose dose xanax
[2024-12-27 00:34] LABS: APTT 31.2 Sec (23.4-35.0)
[2024-12-27 03:31] VITALS: BP 91/67
[2024-12-27 06:00] VITALS: BMI 42.7
[2024-12-27] MEDS: NSS 1000 IV (07:27)
[2024-12-27] MEDS: HEPARIN 25000 UNITS/250 ML IV ×2 (07:29→23:41)
[2024-12-27] MEDS: DESENEX/MITRAZOL/ZEASORB 1 APPLIC TOPICAL (07:51)
[2024-12-27] MEDS: TOPROL XL 25 MG PO (07:53)
[2024-12-27] MEDS: MIRALAX 17 GRAMS PO (07:54)
[2024-12-27] MEDS: SENOKOT 17.2 MG PO ×2 (07:54→20:36)
[2024-12-27] MEDS: VIBRAMYCIN 100 MG PO ×2 (07:54→20:36)
[2024-12-27 07:59] VITALS: BP 123/86
[2024-12-27] MEDS: LANTUS 0.25 UNITS SC (07:59)
[2024-12-27 08:03] LABS: Glucose - Point of Care 217 mg/dl (70-99)
[2024-12-27] MEDS: NOVOLOG FLEXPEN 10 UNITS SC ×3 (08:03→17:59)
[2024-12-27] MEDS: NOVOLOG FLEXPEN-HIGH RESISTANCE 4 UNITS SC (08:03)
[2024-12-27] MEDS: HYDROPHOR 1 APPLIC TOPICAL (08:06)
--- NOTE | 2024-12-27 08:13 | W.PN.GI.CBS2 ---
Today's Communication / Plan
-
Started Linzess 290 mcg
Abdomen x-ray today
LRD
If tolerates okay to DC home
Assessment / Plan
-
Pt is a 64yo with hx IDDM, HTN, hypercholesterolemia, cardiomyopathy, chronic pain, BPH, sleep apnea, obesity, depression presents with shortness of breath. On admission pt admits to recently weaning self off insulin with polyuria and polydipsia.
On admission he is noted with multiple issues including glucose of 660, troponin 0,068 with mild rise after admission, na 125, and WBC 12,800. Imaging with CT chest- suboptimal pulm arteries but neg PE. No dissection or aneurysm, no pericardial or
pleural effusion. There was noted distended loop of bowel in upper abdomen with distention. Further follow up CT A/p with distention of sigmoid colon without volvulus with consideration for decompression tube. Also noted flipping of cecum with
elongated and tortuous with possible displacement of distended sigmoid. Also moderate wall thickening of rectosigmoid inferior to distended sigmoid with moderate stool in portion of sigmoid and possible stercoral colitis. Ct further suggest mass
lateral to upper to mid right kidney concern for renal cell CA with need for further with and without Ct imaging and enlarged lymph nodes with concern for neoplastic process - lymphoma or leukemia.
--Thickening of the rectosigmoid and rectum status post flex sig with colorectal surgery. Significant stool and gas. No volvulus, inflammation or obstructing lesion.
-renal mass concern for renal Cell CA
-enlarged lymph nodes with concern for neoplastic process
-aflutter-new
-hypotension
-occasional dysphagia
-hyponatremia
other med problems:
-HTN
-cardiomyopathy
-chronic pain-NSAID use
-BPH
-sleep apnea
-obesity
-depression
PLAN:
colonic ileus with possible pseudoobstruction and Wilsey's. Status post flex sig 12/25. He did have a large bowel movement yesterday after the milk of molasses enema
Continue senna twice daily
Started [id number] mcg
Will also need enemas or suppositories as needed
Advance diet to low residue diet and if tolerates okay to DC home
Will also need a colonoscopy will schedule as outpatient
Abdomen x-ray today
avoid narcotics and correct electrolytes as needed.
He also has a renal mass and lymphadenopathy noted on CT workup per primary team and will need hematology input inpatient versus outpatient.
Subjective
Subjective
Date of Service: December 27, 2024
He did have a large bowel movement yesterday after the milk of molasses enema. No nausea or vomiting abdominal pain is improved
Objective
Data Reviewed
Laboratory Data:
Laboratory Results
12/26/24 09:07
12/26/24 07:11
Laboratory Results
APTT 31.2 Sec (23.4-35.0) 12/27/24 00:11
Magnesium 2.3 mg/dl (1.6-2.3) 12/26/24 07:11
Total Bilirubin 1.0 mg/dl (0.2-1.3) 12/24/24 20:48
AST 46 U/L (17-59) 12/24/24 20:48
ALT 23 U/L (0-50) 12/24/24 20:48
Alkaline Phosphatase 310 U/L (38-126) H 12/24/24 20:48
Vital Signs and I&O:
Vital Signs
Temp Pulse Resp BP Pulse Ox
97.6 F 115 20 123/86 98
12/27/24 07:59 12/27/24 07:59 12/27/24 07:59 12/27/24 07:59 12/27/24 07:59
I&O
12/26/24 12/27/24 12/28/24
06:59 06:59 06:59
Intake Total 50 / 50 1200 / 1200 600 / 600
Balance 50 / 50 1200 / 1200 600 / 600
Physical Exam
Physical Exam
Cardiology: Normal Sinus Rhythm
Pulmonary: Clear
GI: Soft, Distended, Non Tender and Normal Bowel Sounds
[2024-12-27] MEDS: LINZESS 290 MCG PO (09:15)
[2024-12-27 09:28] LABS: APTT 40.2 Sec (23.4-35.0)
--- NOTE | 2024-12-27 10:19 | W.PN.CD ---
Today's Communication / Plan
-
Cont metop
JOHN DCCV Sunday
Impression / Plan
-
Abdominal process, distension:
-GI and surgery consulted.
Atrial flutter:
-he has untreated sleep apnea and this will need to be addressed
-new, seems typical
-HR 100-120
-BP on low side: Toprol XL now at 25mg daily, and lisinopril held to allow for BP room
-[id number] score is 3 for DM, HTN, and hx CM
-will start heparin drip; and once no more procedures, transition to eliquis 5mg bid
-requires monitoring of Hgb
-will need to consider JOHN/DCCV on Sunday if unable to control rates
Resolved NICM:
-EF was as low as 20% in 2017, more recently 50-55%
-cont Toprol XL; ACEi held for low BP
-update echo
DM2: severe
-hgb A1C 17.7, glucose on arrival in 's
-management per primary team
Abnormal troponin:
-acute, non-ischemic myocardial injury in setting of acute illnesses as above
Morbid obesity
Lymphedema: legs wrapped
Data:
Abdomen/Pelvis CT: Significant distention of the sigmoid colon, extending into the upper abdomen, but without convincing evidence for sigmoid volvulus. Unusual flipping of the cecum into the left pelvis. This is likely due to an elongated and
tortuous colon, perhaps displaced by the distended sigmoid colon. Moderate circumferential wall thickening involving the rectum and rectosigmoid junction, inferior to the distended portion of the sigmoid colon. There is also moderate amount of stool
within this portion of the sigmoid colon. A component of stercoral colitis in this region is possible. No evidence for free intraperitoneal air. Suggestion of a rounded mass arising from the lateral upper to mid right kidney, and raises concern for
renal cell carcinoma. There are enlarged lymph nodes within the abdomen and pelvis as described, which raises concern for a neoplastic process, especially lymphoma and/or leukemia.
Chest CT 12/24/24: Suboptimal opacification of the pulmonary arteries, and respiratory motion artifact in the inferior lungs. No evidence for central pulmonary embolism. Limited evaluation of the segmental and subsegmental pulmonary arteries. If
there are persistent clinical symptoms, consideration for repeat CT angiography of the chest with pulmonary embolism protocol. No evidence for thoracic aortic dissection or aneurysm. Findings of bronchitis within both lower lungs, especially within
the lower lobes. Linear atelectasis within both lower lungs, probably associated with bronchitis.No significant pleural effusion and no significant pericardial effusion. Coronary artery calcifications are present. In the upper abdomen, distention of
a loop of bowel within the upper abdomen which appears to be a loop of colon. There also appears to be slight thickening of the wall of this loop of distended colon.
Subjective: Cont metop, plan for JOHN DCCV Sunday
Physical Exam
Vital Signs/Labs
Vital Signs
Temp Pulse Resp BP Pulse Ox
97.6 F 115 20 123/86 98
12/27/24 07:59 12/27/24 07:59 12/27/24 07:59 12/27/24 07:59 12/27/24 07:59
12/26/24 12/27/24 12/28/24
06:59 06:59 06:59
Actual Weight 328 lb 4 oz 332 lb 9 oz
12/26/24 09:07
12/26/24 07:11
APTT 40.2 Sec (23.4-35.0) H 12/27/24 08:32
Magnesium 2.3 mg/dl (1.6-2.3) 12/26/24 07:11
Triglycerides 389 mg/dl (10-149) H 12/25/24 07:05
LDL Cholesterol, Calc 91 mg/dl 12/25/24 07:05
VLDL Cholesterol, Calc 77 mg/dl (0-30) H 12/25/24 07:05
HDL Cholesterol 51 mg/dl 12/25/24 07:05
02/19/25
20:48
[id number] Pept 270
LAB Results
12/24/24 12/25/24 12/25/24
20:48 03:01 07:05
Troponin I 0.068 H* 0.074 H* 0.077 H*
12/25/24 12/25/24
14:37 20:46
Troponin I Cancelled 0.059 H*
Physical Exam
Constitutional: No acute distress
EENT: Anicteric
Cardiovascular: Pedal edema is absent and Rhythm/rate is irregular
Respiratory: Respiratory effort normal and Lungs clear to auscul.
GI: Distention present
Neuro/Psych: AO x 3
Data Reviewed
-
Date of Service: December 27, 2024
Medical Decision Making: Reviewed Test Results
EKG: Tracing Personally Visualized and interpreted (a flutter)
Echo: Report Reviewed by me
Labs: Labs Reviewed by me
--- NOTE | 2024-12-27 10:44 | CM ---
Consult completed for drug cost:
Eliquis 5 Mg; bid; 30 day supply; $122.31
Xarelto 20 mg; 30 day supply; $0.00
dabigatran 150 mg bid; 30 day supply; $33.51
Attending notified via [employer]
[2024-12-27 11:01] VITALS: BP 114/83
[2024-12-27] MEDS: SUBUTEX 4 MG SL (12:51)
[2024-12-27] MEDS: NOVOLOG FLEXPEN-HIGH RESISTANCE 10 UNITS SC (12:54)
[2024-12-27 12:56] LABS: Glucose - Point of Care 343 mg/dl (70-99)
--- NOTE | 2024-12-27 13:09 | W.PN.HOSP.TC ---
Addendum entered and electronically signed by Tracy Bone MD 12/27/24 14:03:
plan discussed with Dr. Qiu who recommends referral as outpatient
Original Note:
Today's Communication/Plan
-
see plan
Assessment / Plan
Assessment / Plan
Patient is a 64-year-old with history of diabetes, hypertension, BPH, morbid obesity, ERASMO not on CPAP and chronic pain who presents to the emergency department with episode of shortness of breath in the setting of approximately 4 months of polyuria
and polydipsia after stopping insulin for presumed normal hemoglobin A1c of 5.5. He is found to have hyperglycemia, significant distention of sigmoid colon, new renal mass, possibly bronchitis.
Chest CT
IMPRESSION: Suboptimal opacification of the pulmonary arteries, and respiratory motion artifact in the inferior lungs. No evidence for central pulmonary embolism. Limited evaluation of the segmental and subsegmental pulmonary arteries.
If there are persistent clinical symptoms, consideration for repeat CT angiography of the chest with pulmonary embolism protocol.
No evidence for thoracic aortic dissection or aneurysm.
Findings of bronchitis within both lower lungs, especially within the lower lobes. Linear atelectasis within both lower lungs, probably associated with bronchitis.
No significant pleural effusion and no significant pericardial effusion.
Coronary artery calcifications are present. Please correlate with symptoms of and risk factors for coronary artery disease, with further workup as clinically appropriate.
In the upper abdomen, distention of a loop of bowel within the upper abdomen which appears to be a loop of colon. There also appears to be slight thickening of the wall of this loop of distended colon. The patient is scheduled for a separate CT of
the abdomen and pelvis, which will be reported separately.
Abdomen/Pelvis CT
IMPRESSION: Significant distention of the sigmoid colon, extending into the upper abdomen, but without convincing evidence for sigmoid volvulus.
Consideration for attempt at decompression tube placement.
Unusual flipping of the cecum into the left pelvis, and new finding from previous examination of December 25, 2011. This is likely due to an elongated and tortuous:, Perhaps displaced by the distended sigmoid colon.
Moderate circumferential wall thickening involving the rectum and rectosigmoid junction, inferior to the distended portion of the sigmoid colon. There is also moderate amount of stool within this portion of the sigmoid colon. A component of
stercoral colitis in this region is possible.
No evidence for free intraperitoneal air.
Suggestion of a rounded mass arising from the lateral upper to mid right kidney, and raises concern for renal cell carcinoma. When clinically feasible, advise further evaluation with dedicated CT of the abdomen without and with contrast with
attention to the kidneys.
There are enlarged lymph nodes within the abdomen and pelvis as described, which raises concern for a neoplastic process, especially lymphoma and/or leukemia. As warranted, consideration for lymph node biopsy.
Abdomen/Pelvis CT
IMPRESSION:
1.8 cm solid enhancing right renal mass, representing neoplasm until proven otherwise.
Nonobstructing left renal calculi.
Continued gaseous distention of the sigmoid colon.
Mild colonic diverticulosis. No evidence of acute diverticulitis.
Mild distal periaortic adenopathy and left common iliac chain adenopathy.
TTE 12/26/24
CONCLUSIONS
Left ventricle is severely dilated.
Mild to moderate concentric left ventricular hypertrophy.
Severely reduced left ventricular systolic function.
Global hypokinesis.
Left ventricular ejection fraction is 20-25% by visual assessment.
Reduced right ventricular systolic function.
Enlarged right ventricular size.
Mild to moderate mitral regurgitation.
Mild to moderate tricuspid regurgitation.
Estimated pulmonary artery pressure of 30-35 mmHg.
Normal pericardium without effusion.
Compared to 2019 echocardiogram LV function is now moderate to severely
depressed
PLAN:
Hyperglycemia
Uncontrolled DM with A1c 17.7%
- appreciate DM POST OFFICE MARKUP CLERK consult
- new start Lantus and short acting insulin
- diabetic diet
Abdominal distension
-s/p Flex Sig evening 12/25 - no e/o volvulus
- s/p enema, diet advanced
- F/U repeat X-ray today, consider additional enema
SOB - Mild hypoxia to 92%. No PE. Reports intermittent cough and CT suggest bronchitis. BNP 270 (morbid obesity)
- prn nebs
- cough meds
- doxycycline for acute bronchitis
- suspect SOB related to abdominal distention as well
Aflutter - new
Non-ischemic myocardial injury
- telemetry
- appreciate Cardiology
- IV Heparin gtt initiated
- TTE with new depressed EF (see below)
- per Cardiology: will need to consider JOHN/DCCV on Sunday
Non-ischemic cardiomyopathy
-EF declined to 20-25%; was 50-55% in 2019
-continue metoprolol 25mg PO XL QD
-stop fluids
-appreciate cardiology
-COMMODITY MANAGER Lisinopril held to allow room in BP
HTN
- Metoprolol
BPH
- continue tamsulosin
Renal lesion
Lymphadenopathy - CT with suggestion of right kidney mass. Dedicated Ct of the abdomen w/o and w contrast with kidney focus.
-discussing with Heme next steps; will also need Urology consult outpatient
-will place formal Oncology consult today
DVT PPX - Heparin gtt
Code status - Full Code
51 minutes spent on patient care
Anticipated Discharge: > 48 hours
Subjective/Interval History
-
Date of Service: December 27, 2024
continues to have abdominal distention, sometimes feels anxious like it's hard to breathe
Objective Data
-
Labs:
Laboratory Results
12/27/24 12/27/24
08:32 13:08
WBC Pending
Hgb Pending
Hct Pending
Plt Count Pending
APTT 40.2 H
Sodium Pending
Potassium Pending
Chloride Pending
Carbon Dioxide Pending
BUN Pending
Creatinine Pending
Glucose Pending
Calcium Pending
Vital Signs:
Vital Signs
Temp Pulse Resp BP Pulse Ox
97.9 F 117 20 114/83 92
12/27/24 11:01 12/27/24 11:01 12/27/24 11:01 12/27/24 11:01 12/27/24 11:01
I&O
12/26/24 12/27/24 12/28/24
06:59 06:59 06:59
Intake Total 50 / 50 1200 / 1200 600 / 600
Balance 50 / 50 1200 / 1200 600 / 600
Review of Systems
-
History Source: Patient
All other systems: Reviewed and negative
Physical Exam
-
General: No Apparent Distress
HEENT: PERRLA
Respiratory: Clear to Auscultation; Negative Wheezes
Cardiac: Regular Rhythm and S1/S2
GI: Other (distended)
Musculoskeletal: No Edema
Skin: Warm and Dry; Negative Rash
Neuro: AO x 3
Psych: Calm
Data Reviewed
-
Diagnostic Radiology: Report Reviewed by me
Labs: Labs Reviewed by me
[2024-12-27 14:03] LABS: Hematocrit 41.9 % (39.0-52.0); Hemoglobin 14.1 g/dL (13.0-18.0); Mean Corp Hgb Conc. 33.7 g/dL (33.0-37.0); Mean Corpuscular Hgb 27.9 pg (27.0-31.0); Mean Corpuscular Volume 82.8 fL (80.0-94.0); Mean Platelet Volume 10.4 fL (7.4-10.4); Platelet Count 174 10^3/uL (130-400); Red Blood Cell Count 5.06 10^6/uL (4.70-6.10); Red Cell Dist. Width 12.9 % (11.5-14.5); White Blood Cell Count 9.9 10^3/uL (4.8-10.8)
[2024-12-27 14:19] LABS: Blood Urea Nitrogen 22 mg/dl (9-20); Calcium 8.6 mg/dl (8.4-10.2); Carbon Dioxide 24 mmol/L (22-30); Chloride 100 mmol/L (98-107); Estimated Creatinine Clearance > 125 ml/min; Glucose 314 mg/dl (70-99); Sodium 129 mmol/L (135-145); eGFR > 60.00
[2024-12-27 15:43] VITALS: BP 146/94
[2024-12-27] MEDS: NOVOLOG FLEXPEN-HIGH RESISTANCE SC (18:10)
[2024-12-27 18:11] LABS: Glucose - Point of Care 119 mg/dl (70-99)
[2024-12-27 18:45] LABS: APTT 35.4 Sec (23.4-35.0)
[2024-12-27] MEDS: DESENEX/MITRAZOL/ZEASORB TOPICAL (20:35)
[2024-12-27] MEDS: LIPITOR 40 MG PO (20:36)
[2024-12-27 20:42] VITALS: BP 109/76
[2024-12-27 21:27] LABS: Glucose - Point of Care 185 mg/dl (70-99)
[2024-12-27] MEDS: LANTUS 0.1 UNITS SC (22:30)
[2024-12-27 23:40] VITALS: BP 118/61
[2024-12-28 00:37] LABS: APTT 37.6 Sec (23.4-35.0)
[2024-12-28 03:09] VITALS: BP 110/75
[2024-12-28 06:00] VITALS: BMI 42.8
[2024-12-28] MEDS: LINZESS 290 MCG PO (06:12)
[2024-12-28 07:20] VITALS: BP 108/79
[2024-12-28 07:21] LABS: Hematocrit 40.7 % (39.0-52.0); Hemoglobin 13.7 g/dL (13.0-18.0); Mean Corp Hgb Conc. 33.7 g/dL (33.0-37.0); Mean Corpuscular Hgb 28.1 pg (27.0-31.0); Mean Corpuscular Volume 83.6 fL (80.0-94.0); Mean Platelet Volume 10.7 fL (7.4-10.4); Platelet Count 146 10^3/uL (130-400); Red Blood Cell Count 4.87 10^6/uL (4.70-6.10); Red Cell Dist. Width 12.9 % (11.5-14.5); White Blood Cell Count 8.4 10^3/uL (4.8-10.8)
[2024-12-28 07:26] LABS: Glucose - Point of Care 211 mg/dl (70-99)
[2024-12-28 07:29] LABS: APTT 59.8 Sec (23.4-35.0)
[2024-12-28] MEDS: VIBRAMYCIN 100 MG PO ×2 (07:31→20:05)
[2024-12-28] MEDS: SENOKOT 17.2 MG PO ×2 (07:31→20:05)
[2024-12-28] MEDS: LANTUS 0.25 UNITS SC (07:31)
[2024-12-28] MEDS: TOPROL XL 25 MG PO (07:32)
[2024-12-28] MEDS: HYDROPHOR 1 APPLIC TOPICAL (07:33)
[2024-12-28] MEDS: NOVOLOG FLEXPEN-HIGH RESISTANCE 4 UNITS SC ×2 (07:34→12:02)
[2024-12-28] MEDS: DESENEX/MITRAZOL/ZEASORB 1 APPLIC TOPICAL ×2 (07:34→20:02)
[2024-12-28] MEDS: NOVOLOG FLEXPEN 10 UNITS SC ×3 (07:35→16:32)
[2024-12-28 07:54] LABS: Blood Urea Nitrogen 21 mg/dl (9-20); Calcium 8.4 mg/dl (8.4-10.2); Carbon Dioxide 24 mmol/L (22-30); Chloride 98 mmol/L (98-107); Estimated Creatinine Clearance > 125 ml/min; Glucose 186 mg/dl (70-99); Potassium 3.8 mmol/L (3.5-5.1); Sodium 131 mmol/L (135-145); eGFR > 60.00
--- NOTE | 2024-12-28 09:36 | W.PN.GI.CBS2 ---
Today's Communication / Plan
-
Relistor
golytely
Assessment / Plan
-
Pt is a 64yo with hx IDDM, HTN, hypercholesterolemia, cardiomyopathy, chronic pain, BPH, sleep apnea, obesity, depression presents with shortness of breath. On admission pt admits to recently weaning self off insulin with polyuria and polydipsia.
On admission he is noted with multiple issues including glucose of 660, troponin 0,068 with mild rise after admission, na 125, and WBC 12,800. Imaging with CT chest- suboptimal pulm arteries but neg PE. No dissection or aneurysm, no pericardial or
pleural effusion. There was noted distended loop of bowel in upper abdomen with distention. Further follow up CT A/p with distention of sigmoid colon without volvulus with consideration for decompression tube. Also noted flipping of cecum with
elongated and tortuous with possible displacement of distended sigmoid. Also moderate wall thickening of rectosigmoid inferior to distended sigmoid with moderate stool in portion of sigmoid and possible stercoral colitis. Ct further suggest mass
lateral to upper to mid right kidney concern for renal cell CA with need for further with and without Ct imaging and enlarged lymph nodes with concern for neoplastic process - lymphoma or leukemia.
--Thickening of the rectosigmoid and rectum status post flex sig with colorectal surgery. Significant stool and gas. No volvulus, inflammation or obstructing lesion.
-renal mass concern for renal Cell CA
-enlarged lymph nodes with concern for neoplastic process
-aflutter-new
-hypotension
-occasional dysphagia
-hyponatremia
other med problems:
-HTN
-cardiomyopathy
-chronic pain-NSAID use
-BPH
-sleep apnea
-obesity
-depression
PLAN:
colonic ileus with possible pseudoobstruction/ [place]'s. Status post flex sig 12/25. He did have a large bowel movement 12/26 after the milk of molasses enema
Continue senna twice daily
Started Linzess 290 mcg 12/27
Will also need enemas or suppositories as needed
Appears more distended today and x-ray from last night also with more colonic distention.
CT from 12/25 with no bowel obstruction and sigmoidoscopy also did not reveal any obstruction or stricture
May need repeat CT
Will give him a dose of Relistor today
Will also give him GoLytely and if still not improved will schedule him for therapeutic Gastrografin enema
Will need to check with cardiology if not improved if he would be a candidate for neostigmine
discussed with Dr. Paul reconsulted
He has been on chronic Suboxone therapy which is clearly worsening his colonic ileus if possible would try to get pain management involved tomorrow to wean off narcotics
correct electrolytes as needed.
He also has a renal mass and lymphadenopathy noted on CT workup per primary team and will need hematology input inpatient versus outpatient.
Subjective
Subjective
Date of Service: December 28, 2024
He received another enema yesterday but did not have a bowel movement and also not passing flatus since last night and feels more distended. Obstruction series from yesterday also shows worsening colonic distention. Denies abdominal pain no nausea
or vomiting is also been trying to ambulate
Objective
Data Reviewed
Laboratory Data:
Laboratory Results
12/28/24 07:08
12/28/24 07:09
Laboratory Results
APTT 59.8 Sec (23.4-35.0) H 12/28/24 07:09
Magnesium 2.0 mg/dl (1.6-2.3) 12/28/24 07:09
Total Bilirubin 1.0 mg/dl (0.2-1.3) 12/24/24 20:48
AST 46 U/L (17-59) 12/24/24 20:48
ALT 23 U/L (0-50) 12/24/24 20:48
Alkaline Phosphatase 310 U/L (38-126) H 12/24/24 20:48
Vital Signs and I&O:
Vital Signs
Temp Pulse Resp BP Pulse Ox
97.6 F 90 18 108/79 99
12/28/24 07:20 12/28/24 07:32 12/28/24 07:20 12/28/24 07:32 12/28/24 07:20
I&O
12/27/24 12/28/24 12/29/24
06:59 06:59 06:59
Intake Total 1200 / 1200 1560 / 1560 480 / 480
Balance 1200 / 1200 1560 / 1560 480 / 480
abd xray
IMPRESSION: Progressed large bowel distention concerning for colonic obstruction.
Moderate fecal material in the colon. Progressed.
Cardiomegaly. Stable
Physical Exam
Physical Exam
Cardiology: Normal Sinus Rhythm
Pulmonary: Clear
GI: Soft, Distended, Non Tender and Normal Bowel Sounds
[2024-12-28 11:27] VITALS: BP 128/70
--- NOTE | 2024-12-28 11:48 | W.PN.HOSP.TC ---
Addendum entered and electronically signed by Tracy Bone MD 12/28/24 12:06:
chronic suboxone therapy
-continue
-Relistor as below
Original Note:
Today's Communication/Plan
-
see plan
Assessment / Plan
Assessment / Plan
Patient is a 64-year-old with history of diabetes, hypertension, BPH, morbid obesity, ERASMO not on CPAP and chronic pain who presents to the emergency department with episode of shortness of breath in the setting of approximately 4 months of polyuria
and polydipsia after stopping insulin for presumed normal hemoglobin A1c of 5.5. He is found to have hyperglycemia, significant distention of sigmoid colon, new renal mass, bronchitis, and new diagnosis of aflutter .
Chest CT
IMPRESSION: Suboptimal opacification of the pulmonary arteries, and respiratory motion artifact in the inferior lungs. No evidence for central pulmonary embolism. Limited evaluation of the segmental and subsegmental pulmonary arteries.
If there are persistent clinical symptoms, consideration for repeat CT angiography of the chest with pulmonary embolism protocol.
No evidence for thoracic aortic dissection or aneurysm.
Findings of bronchitis within both lower lungs, especially within the lower lobes. Linear atelectasis within both lower lungs, probably associated with bronchitis.
No significant pleural effusion and no significant pericardial effusion.
Coronary artery calcifications are present. Please correlate with symptoms of and risk factors for coronary artery disease, with further workup as clinically appropriate.
In the upper abdomen, distention of a loop of bowel within the upper abdomen which appears to be a loop of colon. There also appears to be slight thickening of the wall of this loop of distended colon. The patient is scheduled for a separate CT of
the abdomen and pelvis, which will be reported separately.
Abdomen/Pelvis CT
IMPRESSION: Significant distention of the sigmoid colon, extending into the upper abdomen, but without convincing evidence for sigmoid volvulus.
Consideration for attempt at decompression tube placement.
Unusual flipping of the cecum into the left pelvis, and new finding from previous examination of December 25, 2011. This is likely due to an elongated and tortuous:, Perhaps displaced by the distended sigmoid colon.
Moderate circumferential wall thickening involving the rectum and rectosigmoid junction, inferior to the distended portion of the sigmoid colon. There is also moderate amount of stool within this portion of the sigmoid colon. A component of
stercoral colitis in this region is possible.
No evidence for free intraperitoneal air.
Suggestion of a rounded mass arising from the lateral upper to mid right kidney, and raises concern for renal cell carcinoma. When clinically feasible, advise further evaluation with dedicated CT of the abdomen without and with contrast with
attention to the kidneys.
There are enlarged lymph nodes within the abdomen and pelvis as described, which raises concern for a neoplastic process, especially lymphoma and/or leukemia. As warranted, consideration for lymph node biopsy.
Abdomen/Pelvis CT
IMPRESSION:
1.8 cm solid enhancing right renal mass, representing neoplasm until proven otherwise.
Nonobstructing left renal calculi.
Continued gaseous distention of the sigmoid colon.
Mild colonic diverticulosis. No evidence of acute diverticulitis.
Mild distal periaortic adenopathy and left common iliac chain adenopathy.
TTE 12/26/24
CONCLUSIONS
Left ventricle is severely dilated.
Mild to moderate concentric left ventricular hypertrophy.
Severely reduced left ventricular systolic function.
Global hypokinesis.
Left ventricular ejection fraction is 20-25% by visual assessment.
Reduced right ventricular systolic function.
Enlarged right ventricular size.
Mild to moderate mitral regurgitation.
Mild to moderate tricuspid regurgitation.
Estimated pulmonary artery pressure of 30-35 mmHg.
Normal pericardium without effusion.
Compared to 2019 echocardiogram LV function is now moderate to severely
depressed
X-ray
IMPRESSION: Progressed large bowel distention concerning for colonic obstruction.
Moderate fecal material in the colon. Progressed.
PLAN:
Hyperglycemia
Uncontrolled DM with A1c 17.7%
- appreciate DM MOBILE THERAPIST consult
- new start Lantus and short acting insulin
- diabetic diet
Abdominal distension
Chronic Ileus with possible Pseudoobstruction/[place]'s
-s/p Flex Sig evening 12/25 - no e/o volvulus
- s/p enema on 12/26 with BM, diet advanced
-follow up x-ray 12/27 with persistent large bowel obstruction
- appreciate GI
- continue senna BID
- Linzess started
-Relistor and Golytely today
-per GI if not improved, will have therapeutic gastrografin enema
SOB - Mild hypoxia to 92%. No PE. Reports intermittent cough and CT suggest bronchitis. BNP 270 (morbid obesity)
- suspect SOB related to abdominal distention as well
- prn nebs
- cough meds
- doxycycline for acute bronchitis - day 03/11
Aflutter - new
Non-ischemic myocardial injury
- telemetry
- appreciate Cardiology
- IV Heparin gtt initiated
- TTE with new depressed EF (see below)
- per Cardiology: will need to consider JOHN/DCCV next week
Non-ischemic cardiomyopathy
-EF declined to 20-25%; was 50-55% in 2019
-continue metoprolol 25mg PO XL QD
-appreciate cardiology
-[employer] Lisinopril held to allow room in BP
HTN
- Metoprolol
BPH
-continue tamsulosin
Renal lesion
Lymphadenopathy
-discussing with Heme next steps; will also need Urology consult outpatient
-case discussed with Dr. Qiu on 12/27. LN present in 2011; patient should have outpatient follow up - no need for inpatient consult
DVT PPX - Heparin gtt
Code status - Full Code
51 minutes spent on patient care
Anticipated Discharge: > 48 hours
Subjective/Interval History
-
Date of Service: December 28, 2024
still no BM
Objective Data
-
Labs:
Laboratory Results
12/28/24 12/28/2412/28/25
00:17 07:08 07:09
WBC 8.4
Hgb 13.7
Hct 40.7
Plt Count 146
APTT 37.6 H 59.8 H
Sodium 131 L
Potassium 3.8
Chloride 98
Carbon Dioxide 24
BUN 21 H
Creatinine 0.7
Glucose 186 H
Calcium 8.4
12/28/24
14:00
WBC
Hgb
Hct
Plt Count
APTT Pending
Sodium
Potassium
Chloride
Carbon Dioxide
BUN
Creatinine
Glucose
Calcium
Vital Signs:
Vital Signs
Temp Pulse Resp BP Pulse Ox
98.2 F 104 20 128/70 98
12/28/24 11:27 12/28/24 11:27 12/28/24 11:27 12/28/24 11:27 12/28/24 11:27
I&O
12/27/24 12/28/24 12/29/24
06:59 06:59 06:59
Intake Total 1200 / 1200 1560 / 1560 480 / 480
Balance 1200 / 1200 1560 / 1560 480 / 480
Review of Systems
-
History Source: Patient
All other systems: Reviewed and negative
Physical Exam
-
General: No Apparent Distress
HEENT: PERRLA
Respiratory: Clear to Auscultation; Negative Wheezes
Cardiac: Regular Rhythm and S1/S2
GI: Other (distended)
Musculoskeletal: No Edema
Skin: Warm and Dry; Negative Rash
Neuro: AO x 3
Psych: Calm
Data Reviewed
-
Diagnostic Radiology: Report Reviewed by me
Labs: Labs Reviewed by me
--- NOTE | 2024-12-28 11:52 | W.PN.CD ---
Today's Communication / Plan
-
Cont metop JOHN/DCCV Sunday/Sunday
Impression / Plan
-
Abdominal process, distension:
-GI and surgery consulted.
Atrial flutter:
-he has untreated sleep apnea and this will need to be addressed
-new, seems typical
-HR 100-120
-BP on low side: Toprol XL now at 25mg daily, and lisinopril held to allow for BP room
-[id number] score is 3 for DM, HTN, and hx CM
-will start heparin drip; and once no more procedures, transition to Xarelto 20 mg as this is $0 for patient
-requires monitoring of Hgb
-JOHN/DCCV either Sunday/Sunday pending GI
HFrEF EF 20-25%: likely tachycardic induced --> Mentions a few months ago he was at Dr lr and his HR was high no ECG done
-Echo below
- pending JOHN DCCV, will need to consider outpt ablation
DM2: severe
-hgb A1C 17.7, glucose on arrival in 's
-management per primary team
Abnormal troponin:
-acute, non-ischemic myocardial injury in setting of acute illnesses as above
Morbid obesity
Lymphedema: legs wrapped
Data:
Abdomen/Pelvis CT: Significant distention of the sigmoid colon, extending into the upper abdomen, but without convincing evidence for sigmoid volvulus. Unusual flipping of the cecum into the left pelvis. This is likely due to an elongated and
tortuous colon, perhaps displaced by the distended sigmoid colon. Moderate circumferential wall thickening involving the rectum and rectosigmoid junction, inferior to the distended portion of the sigmoid colon. There is also moderate amount of stool
within this portion of the sigmoid colon. A component of stercoral colitis in this region is possible. No evidence for free intraperitoneal air. Suggestion of a rounded mass arising from the lateral upper to mid right kidney, and raises concern for
renal cell carcinoma. There are enlarged lymph nodes within the abdomen and pelvis as described, which raises concern for a neoplastic process, especially lymphoma and/or leukemia.
Chest CT 12/24/24: Suboptimal opacification of the pulmonary arteries, and respiratory motion artifact in the inferior lungs. No evidence for central pulmonary embolism. Limited evaluation of the segmental and subsegmental pulmonary arteries. If
there are persistent clinical symptoms, consideration for repeat CT angiography of the chest with pulmonary embolism protocol. No evidence for thoracic aortic dissection or aneurysm. Findings of bronchitis within both lower lungs, especially within
the lower lobes. Linear atelectasis within both lower lungs, probably associated with bronchitis.No significant pleural effusion and no significant pericardial effusion. Coronary artery calcifications are present. In the upper abdomen, distention of
a loop of bowel within the upper abdomen which appears to be a loop of colon. There also appears to be slight thickening of the wall of this loop of distended colon.
Subjective: Cont metop, plan for JOHN DCCV Sunday/Sunday
Echo:CONCLUSIONS
Left ventricle is severely dilated.
Mild to moderate concentric left ventricular hypertrophy.
Severely reduced left ventricular systolic function.
Global hypokinesis.
Left ventricular ejection fraction is 20-25% by visual assessment.
Reduced right ventricular systolic function.
Enlarged right ventricular size.
Mild to moderate mitral regurgitation.
Mild to moderate tricuspid regurgitation.
Estimated pulmonary artery pressure of 30-35 mmHg.
Normal pericardium without effusion.
Compared to 2019 echocardiogram LV function is now moderate to severely
depressed
Physical Exam
Vital Signs/Labs
Vital Signs
Temp Pulse Resp BP Pulse Ox
98.2 F 104 20 128/70 98
12/28/24 11:27 12/28/24 11:27 12/28/24 11:27 12/28/24 11:27 12/28/24 11:27
12/27/24 12/28/24 12/29/24
06:59 06:59 06:59
Actual Weight 332 lb 9 oz 333 lb 2 oz
12/28/24 07:08
12/28/24 07:09
APTT 59.8 Sec (23.4-35.0) H 12/28/24 07:09
Magnesium 2.0 mg/dl (1.6-2.3) 12/28/24 07:09
Triglycerides 389 mg/dl (10-149) H 12/25/24 07:05
LDL Cholesterol, Calc 91 mg/dl 12/25/24 07:05
VLDL Cholesterol, Calc 77 mg/dl (0-30) H 12/25/24 07:05
HDL Cholesterol 51 mg/dl 12/25/24 07:05
12/24/24
20:48
Ibr-T-Aeckivlgplr Pept 270
LAB Results
12/25/24 12/25/24
14:37 20:46
Troponin I Cancelled 0.059 H*
Physical Exam
Constitutional: Other (uncomfortably )
EENT: Anicteric
Cardiovascular: Pedal edema is absent and Rhythm/rate is irregular
Respiratory: Respiratory effort normal and Lungs clear to auscul.
GI: Distention present
Neuro/Psych: AO x 3
Data Reviewed
-
Date of Service: December 28, 2024
EKG: Tracing Personally Visualized and interpreted (a flutter)
Echo: Tracing Personally Visualized and interpreted and Report Reviewed by me
Labs: Labs Reviewed by me
[2024-12-28 11:56] LABS: Glucose - Point of Care 201 mg/dl (70-99)
[2024-12-28] MEDS: TYLENOL 650 MG PO (11:56)
[2024-12-28] MEDS: RELISTOR 12 MG SC (11:57)
[2024-12-28] MEDS: HEPARIN 25000 UNITS/250 ML IV ×2 (11:59→22:51)
[2024-12-28] MEDS: SUBUTEX 4 MG SL (12:15)
[2024-12-28] MEDS: NULYTELY SOLUTION 4 LITERS PO (12:30)
[2024-12-28 15:12] LABS: APTT 62.5 Sec (23.4-35.0)
[2024-12-28 15:55] VITALS: BP 132/76
[2024-12-28 16:29] LABS: Glucose - Point of Care 152 mg/dl (70-99)
[2024-12-28] MEDS: NOVOLOG FLEXPEN-HIGH RESISTANCE 2 UNITS SC (16:32)
[2024-12-28 19:30] VITALS: BP 126/89
[2024-12-28] MEDS: LOPRESSOR 5 MG IV (20:20)
[2024-12-28] MEDS: LIPITOR 40 MG PO (22:00)
[2024-12-28] MEDS: LANTUS 0.1 UNITS SC (22:00)
[2024-12-28 22:01] LABS: Glucose - Point of Care 149 mg/dl (70-99)
[2024-12-28 22:34] LABS: APTT 63.3 Sec (23.4-35.0)
[2024-12-28 23:45] VITALS: BP 114/75
[2024-12-29] VITALS (8 sets, daily range): BP systolic 80–162; BP diastolic 54–106; BMI 43.4
[2024-12-29] MEDS: LINZESS 290 MCG PO (05:42)
[2024-12-29 07:20] LABS: Glucose - Point of Care 153 mg/dl (70-99)
--- NOTE | 2024-12-29 08:09 | PN.DE.MGMTRT ---
Insulin Management
- -
12/29/2024: Diabetes Management Follow Up:
Patient admitted with SOB with approximately 4 months of polyuria and polydipsia; found to have distention of sigmoid colon, new renal mass, possible bronchitis. PMH: T2DM, HTN, BPH, Morbid Obesity, ERASMO not on CPAP and chronic pain. A1C on admission
17.7%, Cr 0.8, eGFR > 60. Pt states 2 years ago he was taking insulin but his A1C was 5.5 so he stopped his insulin. At that time, he was taking 30 units Lantus @ hs w/NovoLog 18 units AC. Glucose was >600 on admission.
Patient is awake, alert, oriented, sitting up in chair, states he is very worried about possible GI surgery, offered, support, able to discuss diabetes care plan.
12/27 low residue diet started and Dr. Bone started HS Lantus 10 units as well.
Fasting Glucose improved, 12/28 premeal 152 to 211, requiring 2-4 units of corrective insulin.
Will increase NovoLog to 12 units AC. Cont Lantus to 25 units daily in AM and 10 units @ HS. Will change to moderate corrective insulin AC.
Will cont to follow and make further insulin dose adjustments if he is made NPO after MN.
Pt was seen by the Diabetes RN educator and was provided a new glucose monitor on 12/26 .
Diabetes History
- -
Type of Diabetes: 2 requiring insulin
Pre-Admission Diabetes Regimen
Lab Results
Hemoglobin A1c 17.7 % (4.0-5.6) H 12/25/24 07:05
Insulin Pump Settings
IP Diabetes Regimen
12/28/24 12/28/24 12/28/24
11:55 16:28 21:59
POC Glucose 201 H 152 H 149 H
12/29/24
07:19
POC Glucose 153 H
Meal type: Dinner
Meal type: Lunch
Meal type: Breakfast
Amount consumed: 100%
Amount consumed: 100%
Amount consumed: 100%
Patient Education
--- NOTE | 2024-12-29 08:11 | W.PN.HOSP.TC ---
Today's Communication/Plan
-
NPO after midnight
GE enema today
See plan
Assessment / Plan
Assessment / Plan
Physical Exam
General: No Apparent Distress
HEENT: Normocephalic
Respiratory: Clear to Auscultation Bilaterally
Cardiac: Regular Rhythm and S1/S2
GI: Other (distended)
Musculoskeletal: No Edema
Skin: Warm and Dry
Neuro: AAO x 3
Psych: Calm
Assessment/Plan
Patient is a 64-year-old with history of diabetes, hypertension, BPH, morbid obesity, ERASMO not on CPAP and chronic pain who presented to the emergency department with episodes of shortness of breath in the setting of approximately 4 months of
polyuria and polydipsia after stopping insulin for presumed normal hemoglobin A1c of 5.5. He is found to have hyperglycemia, significant distention of sigmoid colon, new renal mass, bronchitis, and new diagnosis of aflutter .
Chest CT
IMPRESSION: Suboptimal opacification of the pulmonary arteries, and respiratory motion artifact in the inferior lungs. No evidence for central pulmonary embolism. Limited evaluation of the segmental and subsegmental pulmonary arteries.
If there are persistent clinical symptoms, consideration for repeat CT angiography of the chest with pulmonary embolism protocol.
No evidence for thoracic aortic dissection or aneurysm.
Findings of bronchitis within both lower lungs, especially within the lower lobes. Linear atelectasis within both lower lungs, probably associated with bronchitis.
No significant pleural effusion and no significant pericardial effusion.
Coronary artery calcifications are present. Please correlate with symptoms of and risk factors for coronary artery disease, with further workup as clinically appropriate.
In the upper abdomen, distention of a loop of bowel within the upper abdomen which appears to be a loop of colon. There also appears to be slight thickening of the wall of this loop of distended colon. The patient is scheduled for a separate CT of
the abdomen and pelvis, which will be reported separately.
Abdomen/Pelvis CT
IMPRESSION: Significant distention of the sigmoid colon, extending into the upper abdomen, but without convincing evidence for sigmoid volvulus.
Consideration for attempt at decompression tube placement.
Unusual flipping of the cecum into the left pelvis, and new finding from previous examination of December 25, 2011. This is likely due to an elongated and tortuous:, Perhaps displaced by the distended sigmoid colon.
Moderate circumferential wall thickening involving the rectum and rectosigmoid junction, inferior to the distended portion of the sigmoid colon. There is also moderate amount of stool within this portion of the sigmoid colon. A component of
stercoral colitis in this region is possible.
No evidence for free intraperitoneal air.
Suggestion of a rounded mass arising from the lateral upper to mid right kidney, and raises concern for renal cell carcinoma. When clinically feasible, advise further evaluation with dedicated CT of the abdomen without and with contrast with
attention to the kidneys.
There are enlarged lymph nodes within the abdomen and pelvis as described, which raises concern for a neoplastic process, especially lymphoma and/or leukemia. As warranted, consideration for lymph node biopsy.
Abdomen/Pelvis CT
IMPRESSION:
1.8 cm solid enhancing right renal mass, representing neoplasm until proven otherwise.
Nonobstructing left renal calculi.
Continued gaseous distention of the sigmoid colon.
Mild colonic diverticulosis. No evidence of acute diverticulitis.
Mild distal periaortic adenopathy and left common iliac chain adenopathy.
TTE 12/26/24
CONCLUSIONS
Left ventricle is severely dilated.
Mild to moderate concentric left ventricular hypertrophy.
Severely reduced left ventricular systolic function.
Global hypokinesis.
Left ventricular ejection fraction is 20-25% by visual assessment.
Reduced right ventricular systolic function.
Enlarged right ventricular size.
Mild to moderate mitral regurgitation.
Mild to moderate tricuspid regurgitation.
Estimated pulmonary artery pressure of 30-35 mmHg.
Normal pericardium without effusion.
Compared to 2019 echocardiogram LV function is now moderate to severely
depressed
X-ray
IMPRESSION: Progressed large bowel distention concerning for colonic obstruction.
Moderate fecal material in the colon. Progressed.

Hyperglycemia
Uncontrolled DM with A1c 17.7%
- Patient has not seen a doctor in years
- Appreciate DM GROCERY SHOPPER consult
- New start Lantus and short acting insulin
- Diabetic diet , NPO after midnight
Abdominal distension
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
-s/p Flex Sig evening 12/25 - no e/o volvulus
- s/p enema on 12/26 with BM, diet advanced
-follow up x-ray 12/27 with persistent large bowel obstruction
- appreciate GI
- continue senna BID, colace
- Linzess started on 12/27
- Golytely for 12/28/24
- Relistor
- Per GI, therapeutic Gastrografin enema today
SOB - Mild hypoxia to 92%. No PE. Reports intermittent cough and CT suggest bronchitis. BNP 270 (morbid obesity)
- suspect SOB related to abdominal distention as well
- prn nebs
- cough meds
- doxycycline for acute bronchitis - day 03/11
Aflutter - new
Non-ischemic myocardial injury
- telemetry
- Risk factor modification (similar to that for AFib): treat obesity, possibly sleep apnea; minimize ETOH if applicable, increase exercise, etc
- appreciate Cardiology
- Continue IV Heparin gtt
- TTE with new depressed EF (see below)
- per Cardiology: will need to consider JOHN/DCCV tomorrow
- Eventually, when transitioning to oral anticoagulation, plan to start on Xarelto, not Eliquis (given expensive/cost reasons)
Non-ischemic cardiomyopathy
HFrEF
-EF declined to 20-25%; was 50-55% in 2019
-continue metoprolol 25mg PO XL QD
-appreciate cardiology
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
chronic suboxone therapy
-continue
-Relistor as above/below
HTN
- Metoprolol
BPH
-continue tamsulosin
Renal lesion
Lymphadenopathy
New finding renal mass and debi-aortic lymphadenopathy
-discussing with Heme next steps; will also need Urology consult outpatient
-case discussed with Dr. Qiu on 12/27. LN present in 2011; patient should have outpatient follow up - no need for inpatient consult
-Patient will need outpatient referrals to Heme and Urology (Dr. Bone spoke with both consultants about CT findings).
DVT Prophylaxis: Heparin gtt
Code Status: Full Code
Anticipated Discharge: > 48 hours
Subjective/Interval History
-
Date of Service: December 29, 2024
Patient was seen and examined. He was sitting in his chair comfortably and denied any new symptoms or complaints.
Objective Data
-
Labs:
Laboratory Results
12/28/24 12/29/24 12/29/24
22:13 03:57 07:45
WBC Pending
Hgb Pending
Hct Pending
Plt Count Pending
APTT 63.3 H 102.0 H
Sodium Pending
Potassium Pending
Chloride Pending
Carbon Dioxide Pending
BUN Pending
Creatinine Pending
Glucose Pending
Calcium Pending
12/29/24
10:00
WBC
Hgb
Hct
Plt Count
APTT Pending
Sodium
Potassium
Chloride
Carbon Dioxide
BUN
Creatinine
Glucose
Calcium
Vital Signs:
Vital Signs
Temp Pulse Resp BP Pulse Ox
98.2 F 100 19 80/54 98
12/29/24 07:40 02/24/25 07:40 12/29/24 07:40 12/29/24 07:40 12/29/24 07:40
I&O
12/28/24 12/29/24 12/30/24
06:59 06:59 06:59
Intake Total 1560 / 1560 2160 / 2160
Balance 1560 / 1560 2160 / 2160
[2024-12-29 08:17] LABS: Hematocrit 37.3 % (39.0-52.0); Hemoglobin 12.3 g/dL (13.0-18.0); Mean Corpuscular Hgb 28.2 pg (27.0-31.0); Mean Corpuscular Volume 85.6 fL (80.0-94.0); Mean Platelet Volume 10.6 fL (7.4-10.4); Platelet Count 145 10^3/uL (130-400); Red Blood Cell Count 4.36 10^6/uL (4.70-6.10); Red Cell Dist. Width 12.9 % (11.5-14.5); White Blood Cell Count 8.2 10^3/uL (4.8-10.8)
[2024-12-29] MEDS: NOVOLOG FLEXPEN SC (08:39)
[2024-12-29] MEDS: LANTUS 0.25 UNITS SC (08:40)
[2024-12-29] MEDS: NOVOLOG FLEXPEN-HIGH RESISTANCE 2 UNITS SC ×2 (08:41→13:43)
[2024-12-29] MEDS: DESENEX/MITRAZOL/ZEASORB 1 APPLIC TOPICAL ×2 (08:41→19:34)
[2024-12-29] MEDS: HYDROPHOR 1 APPLIC TOPICAL (08:44)
[2024-12-29 08:45] LABS: Blood Urea Nitrogen 23 mg/dl (9-20); Calcium 8.2 mg/dl (8.4-10.2); Carbon Dioxide 25 mmol/L (22-30); Chloride 101 mmol/L (98-107); Estimated Creatinine Clearance > 125 ml/min; Glucose 153 mg/dl (70-99); Magnesium 1.9 mg/dl (1.6-2.3); Potassium 3.9 mmol/L (3.5-5.1); Sodium 132 mmol/L (135-145); eGFR > 60.00
[2024-12-29] MEDS: SENOKOT 17.2 MG PO ×2 (08:45→19:35)
[2024-12-29] MEDS: TOPROL XL 25 MG PO (08:45)
[2024-12-29] MEDS: VIBRAMYCIN 100 MG PO ×2 (08:47→19:35)
--- NOTE | 2024-12-29 08:48 | W.PN.CD ---
Addendum entered and electronically signed by Feliz Phillip MD 12/29/24 11:49:
Surgery prefers no cardioversion/oral anticoagulation as it is still possible he will need urgent surgery.
Addendum entered and electronically signed by Feliz Phillip MD 12/29/24 10:11:
Wont be Eliquis for cost reasons.
Original Note:
Today's Communication / Plan
-
Discussed with Dr. Harrington.
Gastrografin enema today
JOHN/Cardioversion tomorrow
If all OK will move to Eliquis from Heparin
Over 50 min spent on care of patient today, reviewing many records, coordinator with providers, preparing this document
Impression / Plan
-
Atrial flutter, likely typical
- Still 2:1
- On IV heparin
- For pt Eliquis is $122, Pradaxa is $33.51, and Xarelto is FREE
- I prefer Eliquis but this pt will benefit more from the low cost of Xarelto
- Anticipate JOHN/Cardioversion
- emt intermediate ablation may be a good choice
- Risk factor modification as for AFib is appropriate: treat obesity, any sleep apnea; minimize ETOH, increase exercise, etc
HFrEF,
- EF 20-25% this admit
- LVEF in 2020 was 50-55% by echo. But by nuclear LV dilated and LVEF 24% in 12/2020. Cath in 2020 no LV gram but LVEDP was elevated
- LVEF was 20% in 2012 with PCWP 32, RA 24, PA 68/34 and max cor lesion 30% mid Diag and luminals elsewhere. Cath 2020 no obstrcutive CAD
- we can hope that some of his HF/reduced EF is in part tachycardia induced
DM2,
-hgb A1C 17.7, glucose on arrival in 600's
Abnormal troponin:
- acute, non-ischemic myocardial injury in setting of acute illnesses as above
Morbid obesity, BMI 43
Lymphedema: legs wrapped
Renal mass, right, concern for renal Cell CA seen on CT this admit
HTN
Depression
Sleep apnea
Enlarged lymph nodes within the abdomen and pelvis => concern for neoplastic process, especially lymphoma and/or leukemia. seen on CT this admit
Non-obstructive CAD
Subjective:
Feeling better
Data:
Abdomen/Pelvis CT: Significant distention of the sigmoid colon, extending into the upper abdomen, but without convincing evidence for sigmoid volvulus. Unusual flipping of the cecum into the left pelvis. This is likely due to an elongated and
tortuous colon, perhaps displaced by the distended sigmoid colon. Moderate circumferential wall thickening involving the rectum and rectosigmoid junction, inferior to the distended portion of the sigmoid colon. There is also moderate amount of stool
within this portion of the sigmoid colon. A component of stercoral colitis in this region is possible. No evidence for free intraperitoneal air. Suggestion of a rounded mass arising from the lateral upper to mid right kidney, and raises concern for
renal cell carcinoma. There are enlarged lymph nodes within the abdomen and pelvis as described, which raises concern for a neoplastic process, especially lymphoma and/or leukemia.
Chest CT 12/24/24: Suboptimal opacification of the pulmonary arteries, and respiratory motion artifact in the inferior lungs. No evidence for central pulmonary embolism. Limited evaluation of the segmental and subsegmental pulmonary arteries. If
there are persistent clinical symptoms, consideration for repeat CT angiography of the chest with pulmonary embolism protocol. No evidence for thoracic aortic dissection or aneurysm. Findings of bronchitis within both lower lungs, especially within
the lower lobes. Linear atelectasis within both lower lungs, probably associated with bronchitis.No significant pleural effusion and no significant pericardial effusion. Coronary artery calcifications are present. In the upper abdomen, distention of
a loop of bowel within the upper abdomen which appears to be a loop of colon. There also appears to be slight thickening of the wall of this loop of distended colon.
Echo:CONCLUSIONS
Left ventricle is severely dilated.
Mild to moderate concentric left ventricular hypertrophy.
Severely reduced left ventricular systolic function.
Global hypokinesis.
Left ventricular ejection fraction is 20-25% by visual assessment.
Reduced right ventricular systolic function.
Enlarged right ventricular size.
Mild to moderate mitral regurgitation.
Mild to moderate tricuspid regurgitation.
Estimated pulmonary artery pressure of 30-35 mmHg.
Normal pericardium without effusion.
Compared to 2019 echocardiogram LV function is now moderate to severely
depressed
Cath 12/2020:
CONCLUSIONS
1: No obstructive coronary artery disease. False positive nuclear stress test.
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
3: Arteria lusoria.
4. LVEDP 24
Echo 09/2020:
CONCLUSIONS
Normal left ventricular size and systolic function. No regional wall motion
abnormalities are seen. LV ejection fraction is 50-55% by visual assessment.
Moderate concentric left ventricular hypertrophy.
Mildly dilated left atrium.
The aortic root is mildly dilated-3.8 cm at sinus of Valsalva.
Since echocardiogram June 2017, there is no significant change.
Physical Exam
Vital Signs/Labs
Vital Signs
Temp Pulse Resp BP Pulse Ox
98.2 F 100 19 162/106 98
12/29/24 07:40 12/29/24 07:40 12/29/24 07:40 12/29/24 08:26 12/29/24 07:40
12/28/24 12/29/24 12/30/24
06:59 06:59 06:59
Actual Weight 151.103 kg 153.343 kg
12/29/24 07:45
12/29/24 07:45
APTT 102.0 Sec (23.4-35.0) H 12/29/24 03:57
Magnesium 1.9 mg/dl (1.6-2.3) 12/29/24 07:45
Triglycerides 389 mg/dl (10-149) H 12/25/24 07:05
LDL Cholesterol, Calc 91 mg/dl 12/25/24 07:05
VLDL Cholesterol, Calc 77 mg/dl (0-30) H 12/25/24 07:05
HDL Cholesterol 51 mg/dl 12/25/24 07:05
12/24/24
20:48
Pry-I-Psfhlhgosmy Pept 270
Physical Exam
Constitutional: No acute distress and Comfortable
EENT: Anicteric
Cardiovascular: Rhythm & rate is regular
Respiratory: Respiratory effort normal and Lungs clear to auscul.
GI: Soft, Non tender and Distention present
Neuro/Psych: AO x 3
Data Reviewed
-
Date of Service: December 29, 2024
[2024-12-29] MEDS: HEPARIN 25000 UNITS/250 ML IV ×2 (09:47→21:33)
--- NOTE | 2024-12-29 10:06 | W.PN.CRS1 ---
Today's Communication / Plan
-
GE today
Assessment/Plan
-
64-year-old male with PMH of DM (stopped taking his insulin), HTN who presents for increasing abdominal bloating since September leading to worsening dyspnea over the last few days causing him to come to the ED; he denies any abdominal pain, nausea
or vomiting; his last BM was yesterday and last flatus was yesterday; in the ED, WBC 9.0, CTAP showing massively distended sigmoid with tapering around the rectosigmoid junction as well as thickening of the rectum and rectosigmoid, no convincing
evidence for sigmoid volvulus, ascending colon and cecum displaced to the left side of the abdomen (CTAP from 2011 showing a ascending colon in usual anatomic position); personally reviewed and interpreted, there is significant tapering in diameter
of the sigmoid at the rectosigmoid junction, raising my concern for sigmoid volvulus versus other cause of lead point, such as stricture or mass
Afebrile, HR ranging from 100-130, normotensive
WBC 8.2
-Currently NPO for echo
-GE per GI this morning
-Currently on Relistor, Colace PRN, Senna BID. Received Golytly 12/28.
-Discussed possible surgery if no improvement. He is at high-risk given his comorbidities. Hoping to avoid through medical measures. Discussed with cards who will hold off on starting Xarelto tonight should he need OR.
Subjective Data
Subjective Data
Date of Service: December 29, 2024
Patient states he has no pain. He denies nausea or vomiting. He still feels bloated. He had a large bowel movement last night followed by liquid this morning after doing the golytly prep.
Objective Data
-
Vital Signs
Temp Pulse Resp BP Pulse Ox
98.2 F 100 19 162/106 98
12/29/24 07:40 12/29/24 07:40 12/29/24 07:40 12/29/24 08:26 12/29/24 07:40
Intake & Output
12/28/24 12/29/24 12/30/24
06:59 06:59 06:59
Intake Total 1560 / 1560 2160 / 2160
Balance 1560 / 1560 2160 / 2160
Intake:
Oral fluids 960 / 960 2160 / 2160
IV fluids (Total) 600 / 600
Other:
Number of approximated MODERATE 3 4
amounts of urine
Lab Results
12/29/24 07:45
12/29/24 07:45
Physical Exam
-
General: No Acute Distress and AOx3
Abdomen: Distended (moderate ) and Non Tender
Skin: Warm and Dry
--- NOTE | 2024-12-29 10:24 | W.PN.GI.CBS2 ---
Today's Communication / Plan
-
Gastrograffin enema today
Continue bowel regimen
Assessment / Plan
-
Pt is a 64yo with hx IDDM, HTN, hypercholesterolemia, cardiomyopathy, chronic pain, BPH, sleep apnea, obesity, depression presents with shortness of breath. On admission pt admits to recently weaning self off insulin with polyuria and polydipsia.
On admission he is noted with multiple issues including glucose of 660, troponin 0,068 with mild rise after admission, na 125, and WBC 12,800. Imaging with CT chest- suboptimal pulm arteries but neg PE. No dissection or aneurysm, no pericardial or
pleural effusion. There was noted distended loop of bowel in upper abdomen with distention. Further follow up CT A/p with distention of sigmoid colon without volvulus with consideration for decompression tube. Also noted flipping of cecum with
elongated and tortuous with possible displacement of distended sigmoid. Also moderate wall thickening of rectosigmoid inferior to distended sigmoid with moderate stool in portion of sigmoid and possible stercoral colitis. Ct further suggest mass
lateral to upper to mid right kidney concern for renal cell CA with need for further with and without Ct imaging and enlarged lymph nodes with concern for neoplastic process - lymphoma or leukemia.
--Thickening of the rectosigmoid and rectum status post flex sig with colorectal surgery. Significant stool and gas. No volvulus, inflammation or obstructing lesion.
-renal mass concern for renal Cell CA
-enlarged lymph nodes with concern for neoplastic process
-aflutter-new
-hypotension
-occasional dysphagia
-hyponatremia
other med problems:
-HTN
-cardiomyopathy
-chronic pain-NSAID use
-BPH
-sleep apnea
-obesity
-depression
PLAN:
colonic ileus with possible pseudoobstruction/ Jose's. Status post flex sig 12/25.
He did have a large bowel movement 12/26 after the milk of molasses enema and another large bowel movement 12/28 and today after GoLytely and Relistor 12/28
Continue senna twice daily
Started Linzess 290 mcg 12/27
Will also need enemas or suppositories as needed
CT from 12/25 with no bowel obstruction and sigmoidoscopy also did not reveal any obstruction or stricture
May need repeat CT if worsens
for therapeutic Gastrografin enema today
Will need to check with cardiology if not improved if he would be a candidate for neostigmine
CRS reconsulted
He has been on chronic Suboxone therapy which is clearly worsening his colonic ileus if possible would try to get pain management involved tomorrow to wean off narcotics
Continue Relistor every other day if needed got dose 12/28
correct electrolytes as needed.
DW cardiology reschedule JOHN cardioversion for tomorrow and keep the Gastrografin enema as scheduled for today
He also has a renal mass and lymphadenopathy noted on CT workup per primary team and will need hematology input inpatient versus outpatient.
Subjective
Subjective
Date of Service: December 29, 2024
He is feeling better after he had a large bowel movement last night and another 1 today morning which was more liquid stool after receiving GoLytely yesterday.
He also received Relistor yesterday and is also on Linzess and senna
Tolerating LRD
Objective
Data Reviewed
Laboratory Data:
Laboratory Results
12/29/24 07:45
12/29/24 07:45
Laboratory Results
APTT 102.0 Sec (23.4-35.0) H 12/29/24 03:57
Magnesium 1.9 mg/dl (1.6-2.3) 12/29/24 07:45
Total Bilirubin 1.0 mg/dl (0.2-1.3) 12/24/24 20:48
AST 46 U/L (17-59) 12/24/24 20:48
ALT 23 U/L (0-50) 12/24/24 20:48
Alkaline Phosphatase 310 U/L (38-126) H 12/24/24 20:48
Vital Signs and I&O:
Vital Signs
Temp Pulse Resp BP Pulse Ox
98.2 F 100 19 162/106 98
12/29/24 07:40 12/29/24 07:40 12/29/24 07:40 12/29/24 08:26 12/29/24 07:40
I&O
12/28/24 12/29/24 12/30/24
06:59 06:59 06:59
Intake Total 1560 / 1560 2160 / 2160
Balance 1560 / 1560 2160 / 2160
Physical Exam
Physical Exam
Cardiology: Normal Sinus Rhythm
Pulmonary: Clear
GI: Soft, Distended, Non Tender, Normal Bowel Sounds and Other (tympanic)
[2024-12-29 10:30] LABS: APTT 92.7 Sec (23.4-35.0)
--- NOTE | 2024-12-29 11:17 | CM ---
CM reviewed chart, patient for GE today, JOHN/Cardioversion tomorrow. Patient seen bedside, asking for assistance with patient portal, call to [phone], left voicemail for assistance with setting up portal as patient is locked out. CM will
continue to follow for all discharge planning needs.
Plan; home with family, watch for possible VN needs upon discharge.
[2024-12-29 11:20] LABS: Glucose - Point of Care 187 mg/dl (70-99)
[2024-12-29] MEDS: SUBUTEX 4 MG SL (12:59)
[2024-12-29] MEDS: NOVOLOG FLEXPEN 10 UNITS SC ×2 (13:42→17:50)
[2024-12-29 16:20] LABS: Glucose - Point of Care 226 mg/dl (70-99)
[2024-12-29] MEDS: NOVOLOG FLEXPEN-HIGH RESISTANCE 4 UNITS SC (17:49)
--- NOTE | 2024-12-29 20:48 | PTCARENOTE ---
RN called in to room to help fix with beeping pump. Upon fixing pump, pt voicing frustration and complaining of dayshift staff. Pt states staff did not allow him to walk halls. RN was told by off- coming RN that pt was educated to ambulate but in
nurses sight since pt is on heparin gtt. Pt educated again about being able to ambulate but to not go down to elevators as RN cannot see pt. Pt continues to complain about dayshift stating cups of water not being full enough of ice, straws needing
to be replaced, and adin wraps 'done like a third grader'. Pt stating to report staff. RN provided therapeutic communication and spent time with pt, pt calm.
[2024-12-29 22:05] LABS: Glucose - Point of Care 161 mg/dl (70-99)
[2024-12-29] MEDS: LANTUS 0.1 UNITS SC (22:12)
[2024-12-29] MEDS: LIPITOR 40 MG PO (22:12)
[2024-12-30] VITALS (7 sets, daily range): BP systolic 96–135; BP diastolic 63–96; BMI 43.4
[2024-12-30] MEDS: LINZESS 290 MCG PO (06:00)
[2024-12-30 06:06] LABS: Glucose - Point of Care 151 mg/dl (70-99)
[2024-12-30 07:17] LABS: APTT 107.3 Sec (23.4-35.0)
[2024-12-30 07:25] LABS: Hematocrit 42.2 % (39.0-52.0); Hemoglobin 13.2 g/dL (13.0-18.0); Mean Corp Hgb Conc. 31.3 g/dL (33.0-37.0); Mean Corpuscular Hgb 27.4 pg (27.0-31.0); Mean Corpuscular Volume 87.6 fL (80.0-94.0); Mean Platelet Volume 10.8 fL (7.4-10.4); Platelet Count 161 10^3/uL (130-400); Red Blood Cell Count 4.82 10^6/uL (4.70-6.10); Red Cell Dist. Width 13.2 % (11.5-14.5); White Blood Cell Count 8.8 10^3/uL (4.8-10.8)
[2024-12-30 07:35] LABS: Blood Urea Nitrogen 19 mg/dl (9-20); Calcium 8.8 mg/dl (8.4-10.2); Carbon Dioxide 24 mmol/L (22-30); Chloride 99 mmol/L (98-107); Estimated Creatinine Clearance > 125 ml/min; Glucose 133 mg/dl (70-99); Potassium 3.8 mmol/L (3.5-5.1); Sodium 132 mmol/L (135-145); eGFR > 60.00
[2024-12-30] MEDS: VIBRAMYCIN 100 MG PO ×2 (08:24→19:16)
[2024-12-30] MEDS: TOPROL XL 25 MG PO ×2 (08:24→10:18)
[2024-12-30] MEDS: LANTUS 0.25 UNITS SC (08:25)
[2024-12-30] MEDS: SENOKOT 17.2 MG PO ×2 (08:25→19:16)
[2024-12-30] MEDS: HYDROPHOR 1 APPLIC TOPICAL (08:26)
[2024-12-30] MEDS: DESENEX/MITRAZOL/ZEASORB 1 APPLIC TOPICAL (08:26)
[2024-12-30] MEDS: HEPARIN 25000 UNITS/250 ML IV ×2 (08:30→18:17)
--- NOTE | 2024-12-30 08:30 | PTCARENOTE ---
Pt's heart rate maintaining in 130's while at rest, PO metoprolol 25mg given per scheduled MAR, MD Phillip notified of HR and at bedside assessing patient. MD will change medication orders. will continue to monitor.
[2024-12-30] MEDS: NOVOLOG FLEXPEN SC (08:39)
[2024-12-30] MEDS: NOVOLOG FLEXPEN-HIGH RESISTANCE 2 UNITS SC (08:40)
--- NOTE | 2024-12-30 08:46 | PN.DE.MGMTRT ---
Insulin Management
- -
12/30/2024: Diabetes Management Follow Up:
Patient admitted with SOB with approximately 4 months of polyuria and polydipsia; found to have distention of sigmoid colon, new renal mass, possible bronchitis. PMH: T2DM, HTN, BPH, Morbid Obesity, ERASMO not on CPAP and chronic pain. A1C on admission
17.7%, Cr 0.8, eGFR > 60. Pt states 2 years ago he was taking insulin but his A1C was 5.5 so he stopped his insulin. At that time, he was taking 30 units Lantus @ hs w/NovoLog 18 units AC. Glucose was >600 on admission.
Patient is awake, alert, oriented, ambulating in [place] [address] then sitting up in chair, states he is very worried about possible GI surgery, offered, support, able to discuss diabetes care plan.
12/29 premeal 153 to 226, requiring 2-4 units of corrective insulin.
12/30 Will increase NovoLog to 12 units AC. Cont Lantus to 25 units daily in AM and 10 units @ HS. Will change from high to moderate corrective insulin AC.
Will cont to follow and make further insulin dose adjustments if he is made NPO after MN.
Pt was seen by the Diabetes RN educator and was provided a new glucose monitor on 12/26 .
Diabetes History
- -
Type of Diabetes: 2 requiring insulin
Pre-Admission Diabetes Regimen
12/29/24 12/30/24
07:45 06:27
Creatinine 0.8 0.8
Lab Results
Hemoglobin A1c 17.7 % (4.0-5.6) H 12/25/24 07:05
Insulin Pump Settings
IP Diabetes Regimen
12/29/24 12/29/24 12/29/24
07:45 11:18 16:18
Glucose 153 H
POC Glucose 187 H 226 H
12/29/24 12/30/24 12/30/24
22:04 06:05 06:27
Glucose 133 H
POC Glucose 161 H 151 H
Meal type: Lunch
Meal type: Breakfast
Amount consumed: 100%
Amount consumed: 100%
Patient Education
--- NOTE | 2024-12-30 09:19 | W.PN.GI.CBS2 ---
Today's Communication / Plan
-
Continue bowel regimen
consider colonoscopy as inpatient with CRS or our service
Assessment / Plan
-
Pt is a 64yo with hx IDDM, HTN, hypercholesterolemia, cardiomyopathy, chronic pain, BPH, sleep apnea, obesity, depression presents with shortness of breath. On admission pt admits to recently weaning self off insulin with polyuria and polydipsia.
On admission he is noted with multiple issues including glucose of 660, troponin 0,068 with mild rise after admission, na 125, and WBC 12,800. Imaging with CT chest- suboptimal pulm arteries but neg PE. No dissection or aneurysm, no pericardial or
pleural effusion. There was noted distended loop of bowel in upper abdomen with distention. Further follow up CT A/p with distention of sigmoid colon without volvulus with consideration for decompression tube. Also noted flipping of cecum with
elongated and tortuous with possible displacement of distended sigmoid. Also moderate wall thickening of rectosigmoid inferior to distended sigmoid with moderate stool in portion of sigmoid and possible stercoral colitis. Ct further suggest mass
lateral to upper to mid right kidney concern for renal cell CA with need for further with and without Ct imaging and enlarged lymph nodes with concern for neoplastic process - lymphoma or leukemia.
--Thickening of the rectosigmoid and rectum status post flex sig with colorectal surgery. Significant stool and gas. No volvulus, inflammation or obstructing lesion.
-renal mass concern for renal Cell CA
-enlarged lymph nodes with concern for neoplastic process
-aflutter-new
-hypotension
-occasional dysphagia
-hyponatremia
other med problems:
-HTN
-cardiomyopathy
-chronic pain-NSAID use
-BPH
-sleep apnea
-obesity
-depression
PLAN:
colonic ileus with possible pseudoobstruction/ Hancock's. Status post flex sig 12/25.
He did have a large bowel movement 12/26 after the milk of molasses enema and another large bowel movement 12/28 with Relistor and 2/24 after GoLytely
Continue senna twice daily
Started Linzess 290 mcg 12/27
Will also need enemas or suppositories as needed
CT from 12/25 with no bowel obstruction and sigmoidoscopy also did not reveal any obstruction or stricture
May need repeat CT if worsens
They were unable to perform a therapeutic Gastrografin enema yesterday
Will need to check with cardiology if not improved if he would be a candidate for neostigmine
Noted input from CRS
He has been on chronic Suboxone therapy which is clearly worsening his colonic ileus if possible would try to get pain management involved to wean off narcotics
Continue Relistor every other day if needed( got dose 12/28 will repeat today 12/30)
correct electrolytes as needed.
He was scheduled for JOHN cardioversion 12/30 but apparently was recommended to hold per CRS recommendations
If he is not undergoing cardioversion today will schedule him for a colonoscopy for Sunday or before he starts long-term anticoagulation
He also has a renal mass and lymphadenopathy noted on CT workup per primary team and will need hematology input inpatient versus outpatient.
Subjective
Subjective
Date of Service: December 30, 2024
He did have a loose bowel movement today and last night he had another bowel movement. He says he is also starting to pass gas but feels that there is more gas retained.
Tolerating diet no nausea or vomiting also denies any abdominal pain.
Objective
Data Reviewed
Laboratory Data:
Laboratory Results
12/30/24 06:27
12/30/24 06:27
Laboratory Results
APTT 107.3 Sec (23.4-35.0) H 12/30/24 06:27
Magnesium 2.0 mg/dl (1.6-2.3) 12/30/24 06:27
Total Bilirubin 1.0 mg/dl (0.2-1.3) 12/24/24 20:48
AST 46 U/L (17-59) 12/24/24 20:48
ALT 23 U/L (0-50) 12/24/24 20:48
Alkaline Phosphatase 310 U/L (38-126) H 12/24/24 20:48
Vital Signs and I&O:
Vital Signs
Temp Pulse Resp BP Pulse Ox
97.9 F 130 20 128/95 96
12/30/24 07:20 12/30/24 08:24 12/30/24 07:20 12/30/24 08:24 12/30/24 07:20
I&O
12/29/24 12/30/24 12/31/24
06:59 06:59 06:59
Intake Total 2160 / 2160 1200 / 1200
Balance 2160 / 2160 1200 / 1200
Physical Exam
Physical Exam
Cardiology: Normal Sinus Rhythm
Pulmonary: Clear
GI: Soft, Distended, Non Tender, Normal Bowel Sounds and Other (Tympanic)
--- NOTE | 2024-12-30 09:57 | W.PN.CD ---
Today's Communication / Plan
-
Increase BB
JOHN/DCCV and move IV heparin to Xarelto only when GI and colorectal surgery feel risk of needing to stop Xarelto in next 30 days is very low
Work on GDMT later
Impression / Plan
-
GI: Massive segmental distention of the sigmoid associated with thickening of the rectosigmoid and rectum
- Colorectal surgery and GI involved
Atrial flutter, likely typical
- Still frequently 2:1
- On IV heparin
- For pt Eliquis is $122, Pradaxa is $33.51, and Xarelto is FREE
- I prefer Eliquis but this pt will benefit more from the low cost of Xarelto
- Anticipate JOHN/Cardioversion when OK with Colorectal Surgery
- long-term ablation may be a good choice
- Risk factor modification as for AFib is appropriate: treat obesity, any sleep apnea; minimize ETOH, increase exercise, etc
HFrEF,
- EF 20-25% this admit
- LVEF in 2020 was 50-55% by echo.
- But by nuclear LV dilated and LVEF 24% in 12/2020
- Cath in 2020 no LV gram but LVEDP was elevated
- LVEF was 20% in 2012 with PCWP 32, RA 24, PA 68/34 and max cor lesion 30% mid Diag and luminals elsewhere. Cath 2020 no obstructive CAD
- we can hope that some of his HF/reduced EF is in part tachycardia induced
- Work on GDMT once GI issues improved and he is in sinus (SGLT2-I, MRA, HF BB, RAAS-I (ARNI/BOO-I/ARB), loop diuretic as needed
DM2, hgb A1C 17.7, glucose on arrival in 600's
Abnormal troponin from acute, non-ischemic myocardial injury in setting of acute illnesses as above
Morbid obesity, BMI 43
Lymphedema: legs wrapped
Renal mass, right, concern for renal Cell CA seen on CT this admit
HTN
Depression
Sleep apnea
Enlarged lymph nodes within the abdomen and pelvis => concern for neoplastic process, especially lymphoma and/or leukemia. seen on CT this admit
Non-obstructive CAD
Subjective:
Feeling better
Data:
Abdomen/Pelvis CT: Significant distention of the sigmoid colon, extending into the upper abdomen, but without convincing evidence for sigmoid volvulus. Unusual flipping of the cecum into the left pelvis. This is likely due to an elongated and
tortuous colon, perhaps displaced by the distended sigmoid colon. Moderate circumferential wall thickening involving the rectum and rectosigmoid junction, inferior to the distended portion of the sigmoid colon. There is also moderate amount of stool
within this portion of the sigmoid colon. A component of stercoral colitis in this region is possible. No evidence for free intraperitoneal air. Suggestion of a rounded mass arising from the lateral upper to mid right kidney, and raises concern for
renal cell carcinoma. There are enlarged lymph nodes within the abdomen and pelvis as described, which raises concern for a neoplastic process, especially lymphoma and/or leukemia.
Chest CT 12/24/24: Suboptimal opacification of the pulmonary arteries, and respiratory motion artifact in the inferior lungs. No evidence for central pulmonary embolism. Limited evaluation of the segmental and subsegmental pulmonary arteries. If
there are persistent clinical symptoms, consideration for repeat CT angiography of the chest with pulmonary embolism protocol. No evidence for thoracic aortic dissection or aneurysm. Findings of bronchitis within both lower lungs, especially within
the lower lobes. Linear atelectasis within both lower lungs, probably associated with bronchitis.No significant pleural effusion and no significant pericardial effusion. Coronary artery calcifications are present. In the upper abdomen, distention of
a loop of bowel within the upper abdomen which appears to be a loop of colon. There also appears to be slight thickening of the wall of this loop of distended colon.
Echo:CONCLUSIONS
Left ventricle is severely dilated.
Mild to moderate concentric left ventricular hypertrophy.
Severely reduced left ventricular systolic function.
Global hypokinesis.
Left ventricular ejection fraction is 20-25% by visual assessment.
Reduced right ventricular systolic function.
Enlarged right ventricular size.
Mild to moderate mitral regurgitation.
Mild to moderate tricuspid regurgitation.
Estimated pulmonary artery pressure of 30-35 mmHg.
Normal pericardium without effusion.
Compared to 2019 echocardiogram LV function is now moderate to severely
depressed
Cath 12/2020:
CONCLUSIONS
1: No obstructive coronary artery disease. False positive nuclear stress test.
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
3: Arteria lusoria.
4. LVEDP 24
Echo 09/2020:
CONCLUSIONS
Normal left ventricular size and systolic function. No regional wall motion
abnormalities are seen. LV ejection fraction is 50-55% by visual assessment.
Moderate concentric left ventricular hypertrophy.
Mildly dilated left atrium.
The aortic root is mildly dilated-3.8 cm at sinus of Valsalva.
Since echocardiogram June 2017, there is no significant change.
Physical Exam
Vital Signs/Labs
Vital Signs
Temp Pulse Resp BP Pulse Ox
97.9 F 125 20 128/95 96
12/30/24 07:20 12/30/24 09:31 12/30/24 07:20 12/30/24 08:24 12/30/24 07:20
12/29/24 12/30/24 12/31/24
06:59 06:59 06:59
Actual Weight 153.343 kg 153.116 kg
12/30/24 06:27
12/30/24 06:27
APTT 107.3 Sec (23.4-35.0) H 12/30/24 06:27
Magnesium 2.0 mg/dl (1.6-2.3) 12/30/24 06:27
Triglycerides 389 mg/dl (10-149) H 12/25/24 07:05
LDL Cholesterol, Calc 91 mg/dl 12/25/24 07:05
VLDL Cholesterol, Calc 77 mg/dl (0-30) H 12/25/24 07:05
HDL Cholesterol 51 mg/dl 12/25/24 07:05
12/24/24
20:48
Xdi-J-Smqothlbaps Pept 270
Physical Exam
Constitutional: No acute distress
EENT: Anicteric
Cardiovascular: Pedal edema is absent and Rhythm/rate is irregular
Respiratory: Respiratory effort normal and Lungs clear to auscul.
GI: Soft and Distention present
Neuro/Psych: Alert
Data Reviewed
-
Date of Service: December 30, 2024
--- NOTE | 2024-12-30 09:59 | PTCARENOTE ---
Patient refusing Fecal management system, states ' I don't think it will be effective.' RICHARD Mcduffie notified. will continue to monitor
[2024-12-30] MEDS: RELISTOR 12 MG SC (10:19)
--- NOTE | 2024-12-30 10:51 | W.PN.CRS1 ---
Today's Communication / Plan
-
Rectal tube
Surgical planning
Assessment/Plan
-
64-year-old male with PMH of DM (stopped taking his insulin), HTN who presents for increasing abdominal bloating since September leading to worsening dyspnea over the last few days causing him to come to the ED; he denies any abdominal pain, nausea
or vomiting; his last BM was yesterday and last flatus was yesterday; in the ED, WBC 9.0, CTAP showing massively distended sigmoid with tapering around the rectosigmoid junction as well as thickening of the rectum and rectosigmoid, no convincing
evidence for sigmoid volvulus, ascending colon and cecum displaced to the left side of the abdomen (CTAP from 2011 showing a ascending colon in usual anatomic position); personally reviewed and interpreted, there is significant tapering in diameter
of the sigmoid at the rectosigmoid junction, raising my concern for sigmoid volvulus versus other cause of lead point, such as stricture or mass
Afebrile, HR ranging from 100-130, normotensive
WBC 8.8
-Recommend holding Xarelto for now until surgical planning finalized
-Will discuss case with Dr. Pierre for ultimate surgical decision. He is high risk but may require resection if he has no improvement.
-Currently on Relistor, Colace PRN, Senna BID. Received Golytly 12/28.
-Will discuss with GI and cardiology
-Recommend a rectal tube given gas
Subjective Data
Subjective Data
Date of Service: December 30, 2024
Patient states he is still distended. He denies being tender. He has no nausea or vomiting. His last documented bowel movement was yesterday morning.
Objective Data
-
Vital Signs
Temp Pulse Resp BP Pulse Ox
97.9 F 110 20 128/95 96
12/30/24 07:20 12/30/24 10:18 12/30/24 07:20 12/30/24 08:24 12/30/24 07:20
Intake & Output
12/29/24 12/30/24 12/31/24
06:59 06:59 06:59
Intake Total 2160 / 2160 1200 / 1200
Balance 2160 / 2160 1200 / 1200
Intake:
Oral fluids 2160 / 2160 1200 / 1200
Other:
Number of approximated MODERATE 4 3
amounts of urine
Lab Results
12/30/24 06:27
12/30/24 06:27
Physical Exam
-
General: No Acute Distress and AOx3
Abdomen: Soft, Distended and Non Tender
Skin: Warm and Dry
--- NOTE | 2024-12-30 11:08 | W.PN.UPDATE ---
Update Note
Progress Note Update
Discussed with Dr. Phillip and Dr. Pierre and Dr. Coker through [place] text cardioversion is on hold for now as recommended by colorectal surgery in the event that he may need surgery., He is on maximal oral laxative therapy. Given chronic nature
and the fact that they were even unable to do a therapeutic Gastrografin enema high chance of recurrence with chronic narcotic use that he has been unable to get off as outpatient. Most likely will need surgery Dr. Pierre to discuss with patient
later about timing. Will hold off on colonoscopy for now
[2024-12-30 12:03] LABS: Glucose - Point of Care 179 mg/dl (70-99)
[2024-12-30] MEDS: NOVOLOG FLEXPEN 12 UNITS SC ×2 (12:04→18:01)
[2024-12-30] MEDS: NOVOLOG FLEXPEN-MODERATE RESISTANCE 1 UNITS SC (12:04)
[2024-12-30] MEDS: SUBUTEX 4 MG SL (12:06)
--- NOTE | 2024-12-30 15:15 | W.PN.HOSP.TC ---
Today's Communication/Plan
-
Continue Heparin Drip
No Cardioversion at this time
CRS, GI to try neostigmine vs. colonoscopy (but high anesthesia risk), cardiology will change Metoprolol to short acting 25 TID to allow for possible start of neostigmine
Assessment / Plan
Assessment / Plan
Physical Exam
General: No Apparent Distress
HEENT: Normocephalic
Respiratory: Clear to Auscultation Bilaterally
Cardiac: Regular Rhythm and S1/S2
GI: Other (distended)
Musculoskeletal: No Edema
Skin: Warm and Dry
Neuro: AAO x 3
Psych: Calm
Assessment/Plan
Patient is a 64-year-old with history of diabetes, hypertension, BPH, morbid obesity, ERASMO not on CPAP and chronic pain who presented to the emergency department with episodes of shortness of breath in the setting of approximately 4 months of
polyuria and polydipsia after stopping insulin for presumed normal hemoglobin A1c of 5.5. He is found to have hyperglycemia, significant distention of sigmoid colon, new renal mass, bronchitis, and new diagnosis of aflutter .
Chest CT
IMPRESSION: Suboptimal opacification of the pulmonary arteries, and respiratory motion artifact in the inferior lungs. No evidence for central pulmonary embolism. Limited evaluation of the segmental and subsegmental pulmonary arteries.
If there are persistent clinical symptoms, consideration for repeat CT angiography of the chest with pulmonary embolism protocol.
No evidence for thoracic aortic dissection or aneurysm.
Findings of bronchitis within both lower lungs, especially within the lower lobes. Linear atelectasis within both lower lungs, probably associated with bronchitis.
No significant pleural effusion and no significant pericardial effusion.
Coronary artery calcifications are present. Please correlate with symptoms of and risk factors for coronary artery disease, with further workup as clinically appropriate.
In the upper abdomen, distention of a loop of bowel within the upper abdomen which appears to be a loop of colon. There also appears to be slight thickening of the wall of this loop of distended colon. The patient is scheduled for a separate CT of
the abdomen and pelvis, which will be reported separately.
Abdomen/Pelvis CT
IMPRESSION: Significant distention of the sigmoid colon, extending into the upper abdomen, but without convincing evidence for sigmoid volvulus.
Consideration for attempt at decompression tube placement.
Unusual flipping of the cecum into the left pelvis, and new finding from previous examination of December 25, 2011. This is likely due to an elongated and tortuous:, Perhaps displaced by the distended sigmoid colon.
Moderate circumferential wall thickening involving the rectum and rectosigmoid junction, inferior to the distended portion of the sigmoid colon. There is also moderate amount of stool within this portion of the sigmoid colon. A component of
stercoral colitis in this region is possible.
No evidence for free intraperitoneal air.
Suggestion of a rounded mass arising from the lateral upper to mid right kidney, and raises concern for renal cell carcinoma. When clinically feasible, advise further evaluation with dedicated CT of the abdomen without and with contrast with
attention to the kidneys.
There are enlarged lymph nodes within the abdomen and pelvis as described, which raises concern for a neoplastic process, especially lymphoma and/or leukemia. As warranted, consideration for lymph node biopsy.
Abdomen/Pelvis CT
IMPRESSION:
1.8 cm solid enhancing right renal mass, representing neoplasm until proven otherwise.
Nonobstructing left renal calculi.
Continued gaseous distention of the sigmoid colon.
Mild colonic diverticulosis. No evidence of acute diverticulitis.
Mild distal periaortic adenopathy and left common iliac chain adenopathy.
TTE 12/26/24
CONCLUSIONS
Left ventricle is severely dilated.
Mild to moderate concentric left ventricular hypertrophy.
Severely reduced left ventricular systolic function.
Global hypokinesis.
Left ventricular ejection fraction is 20-25% by visual assessment.
Reduced right ventricular systolic function.
Enlarged right ventricular size.
Mild to moderate mitral regurgitation.
Mild to moderate tricuspid regurgitation.
Estimated pulmonary artery pressure of 30-35 mmHg.
Normal pericardium without effusion.
Compared to 2019 echocardiogram LV function is now moderate to severely
depressed
X-ray
IMPRESSION: Progressed large bowel distention concerning for colonic obstruction.
Moderate fecal material in the colon. Progressed.

Hyperglycemia
Uncontrolled DM with A1c 17.7%
- Patient has not seen a doctor in years
- Appreciate DM PHARMACY TECHNICIAN INFUSION consult
- New start Lantus and short acting insulin
- Diabetic diet
Abdominal distension
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
-chronic Suboxone therapy which is clearly worsening his colonic ileus
-s/p Flex Sig evening 12/25 - no e/o volvulus
- s/p enema on 12/26 with BM, diet advanced
-follow up x-ray 12/27 with persistent large bowel obstruction
- appreciate GI
- continue senna BID, colace
- Linzess started on 12/27
- Golytely for 12/28/24
- Relistor
- Per GI, therapeutic Gastrografin enema unable to be performed on 12/29/24
- Patient would like to avoid any surgery, and there is a high risk with anesthesia (essentially prohibitive for anything less than an emergency case)
- CRS and GI deciding on neostigmine (can possibly cause low blood pressure and slow heart rate) versus colonoscopy
SOB - Mild hypoxia to 92%. No PE. Reports intermittent cough and CT suggest bronchitis. BNP 270 (morbid obesity)
- suspect SOB related to abdominal distention as well
- prn nebs
- cough meds
- doxycycline for acute bronchitis - day 03/11
Aflutter - new
Non-ischemic myocardial injury
- telemetry
- Risk factor modification (similar to that for AFib): treat obesity, possibly sleep apnea; minimize ETOH if applicable, increase exercise, etc
- appreciate Cardiology
- Continue IV Heparin gtt
- TTE with new depressed EF (see below)
- Per Cardiology: Anesthesia would not favor sedation for JOHN; for now rate control only but no cardioversion. Once patient has been on anticoagulation for three weeks, add outpatient amiodarone and then it still in flutter or a
fib several weeks later, can cardiovert without JOHN, and that would need much less anesthesia.
- Eventually, when transitioning to oral anticoagulation, plan to start on Xarelto, not Eliquis (given expensive/cost reasons)
Non-ischemic cardiomyopathy
HFrEF -- some of his HF/reduced EF is in part tachycardia induced
-EF declined to 20-25%; was 50-55% in 2019
-continue metoprolol 25mg PO XL QD
-appreciate cardiology
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
-Plan is to work towards GDMT once patient's GI issues improved and he is in sinus rhythm (SGLT2-I, MRA, HF BB, RAAS-I (ARNI/BOO-I/ARB), loop diuretic as needed
Chronic suboxone therapy
-continue for now
-Relistor as above/below
HTN
- Metoprolol
BPH
-continue tamsulosin
Renal lesion
Lymphadenopathy
New finding renal mass and debi-aortic lymphadenopathy
-discussing with Heme next steps; will also need Urology consult outpatient
-case discussed with Dr. Qiu on 12/27. LN present in 2011; patient should have outpatient follow up - no need for inpatient consult
-Patient will need outpatient referrals to Heme and Urology (Dr. Bone spoke with both consultants about CT findings).
DVT Prophylaxis: Heparin gtt
Code Status: Full Code
Anticipated Discharge: > 48 hours
Subjective/Interval History
-
Date of Service: December 30, 2024
Patient was seen and examined. He denied any pain, did report feeling bloated however.
Objective Data
-
Labs:
Laboratory Results
12/30/24
06:27
WBC 8.8
Hgb 13.2
Hct 42.2
Plt Count 161
APTT 107.3 H
Sodium 132 L
Potassium 3.8
Chloride 99
Carbon Dioxide 24
BUN 19
Creatinine 0.8
Glucose 133 H
Calcium 8.8
Vital Signs:
Vital Signs
Temp Pulse Resp BP Pulse Ox
97.8 F 104 18 114/63 96
12/30/24 12:21 12/30/24 12:21 12/30/24 12:21 12/30/24 12:21 12/30/24 12:21
I&O
12/29/24 12/30/24 12/31/24
06:59 06:59 06:59
Intake Total 2160 / 2160 1200 / 1200
Balance 2160 / 2160 1200 / 1200
--- NOTE | 2024-12-30 15:34 | W.PN.UPDATE ---
Update Note
Progress Note Update
-
-
Cardiology update note:
I agree with anesthesia that the patient's risk for or severe morbidity is extremely high for major abdominal surgery. This high risk should probably be reserved for emergency cases.
I discussed with anesthesia. They feel uncomfortable with the amount of anesthesia that would be required for transesophageal echocardiogram.
We will not pursue inpatient JOHN/Cardioversion.
We will use oral rate control medications. When it is felt to be safe to anticoagulate with oral meds we will add Xarelto and then several weeks later add amiodarone.
After amiodarone loading if he is still in arrhythmia (AFlutter or AFib) we will proceed to cardioversion without JOHN.
This approach will minimize the amount of anesthesia.
Risks for colonoscopy will be high.
Reviewed with hospitalist, colorectal surgery, and GI.
Neostigmine will carry significant cardiac risk but GI and colorectal surgery may pursue. We will decrease metoprolol and use short acting version.
--- NOTE | 2024-12-30 15:43 | W.PN.UPDATE ---
Update Note
Progress Note Update
See my progress note addendum for most recent CRS update
[2024-12-30] MEDS: LOPRESSOR 25 MG PO (16:20)
[2024-12-30 16:35] LABS: Glucose - Point of Care 132 mg/dl (70-99)
[2024-12-30] MEDS: NOVOLOG FLEXPEN-MODERATE RESISTANCE SC (16:41)
--- NOTE | 2024-12-30 17:45 | PTCARENOTE ---
report given to Muriel in IMU
--- NOTE | 2024-12-30 18:20 | PTCARENOTE ---
Patient states he does not feel good states ' I am feeling hot and I feel like I am having a panic attack.' patient sitting up in chair, VSS BP 135/96 HR 123, Oxygen 98% RA, Temp 97.2 MD Gasca notified. Will continue to monitor.
[2024-12-30] MEDS: DESENEX/MITRAZOL/ZEASORB TOPICAL (19:16)
[2024-12-30] MEDS: DEBROX EAR DROPS 5 DROP OTIC (19:18)
[2024-12-30 21:32] LABS: Glucose - Point of Care 158 mg/dl (70-99)
[2024-12-30] MEDS: LANTUS 0.1 UNITS SC (21:37)
[2024-12-30] MEDS: TYLENOL 650 MG PO (21:37)
[2024-12-30] MEDS: LIPITOR 40 MG PO (21:37)
[2024-12-31] VITALS (20 sets, daily range): BP systolic 92–138; BP diastolic 64–110; BMI 43.3
[2024-12-31] MEDS: LOPRESSOR PO (00:14)
--- NOTE | 2024-12-31 00:45 | PTCARENOTE ---
Report given to Linda. Pt transferred to ICU per order.
--- NOTE | 2024-12-31 01:52 | PTCARENOTE ---
0100- patient arrived on unit from 4W, was able to walk from gurney to bed, patient is short of breath with any exertion, however he had no issues walking, he is just impulsive and needs to be told to go slow. Patient unable to lay in bed,
extremely tachypneic, got pt recliner and he is sleeping much better wit head and legs elevated. patient has Heparin gtt at 26, 98% RA and afebrile. patient has +3 edema to b/l/l/e r/t lymphedema, he has open wounds to lower legs that are wrapped
with adin bandages. b;. feet are blue, cool to touch but patient has no numbness/tingling or pain at this time. patient is NPO, ast x 1 to Bathroom, belly large/round/firm and hypo active bowel sounds. plan is to start neostigmine today for
decompression
[2024-12-31 05:10] LABS: Hematocrit 38.8 % (39.0-52.0); Hemoglobin 12.6 g/dL (13.0-18.0); Mean Corp Hgb Conc. 32.5 g/dL (33.0-37.0); Mean Corpuscular Hgb 27.5 pg (27.0-31.0); Mean Corpuscular Volume 84.5 fL (80.0-94.0); Mean Platelet Volume 10.9 fL (7.4-10.4); Platelet Count 161 10^3/uL (130-400); Red Blood Cell Count 4.59 10^6/uL (4.70-6.10); Red Cell Dist. Width 13.2 % (11.5-14.5); White Blood Cell Count 8.6 10^3/uL (4.8-10.8)
[2024-12-31 05:21] LABS: INR 1.13; PT 14.8 Sec (11.4-14.6)
[2024-12-31 05:22] LABS: APTT 78.8 Sec (23.4-35.0)
[2024-12-31] MEDS: HEPARIN 25000 UNITS/250 ML IV (05:27)
[2024-12-31] MEDS: LINZESS 290 MCG PO (05:29)
[2024-12-31 05:36] LABS: Blood Urea Nitrogen 17 mg/dl (9-20); Carbon Dioxide 24 mmol/L (22-30); Chloride 102 mmol/L (98-107); Estimated Creatinine Clearance > 125 ml/min; Glucose 122 mg/dl (70-99); Magnesium 1.9 mg/dl (1.6-2.3); Sodium 132 mmol/L (135-145); eGFR > 60.00
[2024-12-31 05:57] LABS: Phosphorus 4.1 mg/dl (2.5-4.5)
--- NOTE | 2024-12-31 07:29 | W.PN.HOSP.TC ---
Today's Communication/Plan
-
Neostigmine given today without bowel movement
Appreciate GI and CRS eval regarding next steps
Assessment / Plan
Assessment / Plan
Physical Exam
General: No Apparent Distress
HEENT: Normocephalic
Respiratory: Clear to Auscultation Bilaterally
Cardiac: Regular Rhythm and S1/S2
GI: Other (distended)
Musculoskeletal: No Edema
Skin: Warm and Dry
Neuro: AAO x 3
Psych: Calm
Assessment/Plan
Patient is a 64-year-old with history of diabetes, hypertension, BPH, morbid obesity, ERASMO not on CPAP and chronic pain who presented to the emergency department with episodes of shortness of breath in the setting of approximately 4 months of
polyuria and polydipsia after stopping insulin for presumed normal hemoglobin A1c of 5.5. He is found to have hyperglycemia, significant distention of sigmoid colon, new renal mass, bronchitis, and new diagnosis of aflutter .
Chest CT
IMPRESSION: Suboptimal opacification of the pulmonary arteries, and respiratory motion artifact in the inferior lungs. No evidence for central pulmonary embolism. Limited evaluation of the segmental and subsegmental pulmonary arteries.
If there are persistent clinical symptoms, consideration for repeat CT angiography of the chest with pulmonary embolism protocol.
No evidence for thoracic aortic dissection or aneurysm.
Findings of bronchitis within both lower lungs, especially within the lower lobes. Linear atelectasis within both lower lungs, probably associated with bronchitis.
No significant pleural effusion and no significant pericardial effusion.
Coronary artery calcifications are present. Please correlate with symptoms of and risk factors for coronary artery disease, with further workup as clinically appropriate.
In the upper abdomen, distention of a loop of bowel within the upper abdomen which appears to be a loop of colon. There also appears to be slight thickening of the wall of this loop of distended colon. The patient is scheduled for a separate CT of
the abdomen and pelvis, which will be reported separately.
Abdomen/Pelvis CT
IMPRESSION: Significant distention of the sigmoid colon, extending into the upper abdomen, but without convincing evidence for sigmoid volvulus.
Consideration for attempt at decompression tube placement.
Unusual flipping of the cecum into the left pelvis, and new finding from previous examination of December 25, 2011. This is likely due to an elongated and tortuous:, Perhaps displaced by the distended sigmoid colon.
Moderate circumferential wall thickening involving the rectum and rectosigmoid junction, inferior to the distended portion of the sigmoid colon. There is also moderate amount of stool within this portion of the sigmoid colon. A component of
stercoral colitis in this region is possible.
No evidence for free intraperitoneal air.
Suggestion of a rounded mass arising from the lateral upper to mid right kidney, and raises concern for renal cell carcinoma. When clinically feasible, advise further evaluation with dedicated CT of the abdomen without and with contrast with
attention to the kidneys.
There are enlarged lymph nodes within the abdomen and pelvis as described, which raises concern for a neoplastic process, especially lymphoma and/or leukemia. As warranted, consideration for lymph node biopsy.
Abdomen/Pelvis CT
IMPRESSION:
1.8 cm solid enhancing right renal mass, representing neoplasm until proven otherwise.
Nonobstructing left renal calculi.
Continued gaseous distention of the sigmoid colon.
Mild colonic diverticulosis. No evidence of acute diverticulitis.
Mild distal periaortic adenopathy and left common iliac chain adenopathy.
TTE 12/26/24
CONCLUSIONS
Left ventricle is severely dilated.
Mild to moderate concentric left ventricular hypertrophy.
Severely reduced left ventricular systolic function.
Global hypokinesis.
Left ventricular ejection fraction is 20-25% by visual assessment.
Reduced right ventricular systolic function.
Enlarged right ventricular size.
Mild to moderate mitral regurgitation.
Mild to moderate tricuspid regurgitation.
Estimated pulmonary artery pressure of 30-35 mmHg.
Normal pericardium without effusion.
Compared to 2019 echocardiogram LV function is now moderate to severely
depressed
X-ray
IMPRESSION: Progressed large bowel distention concerning for colonic obstruction.
Moderate fecal material in the colon. Progressed.

Hyperglycemia
Uncontrolled DM with A1c 17.7%
- Patient has not seen a doctor in years
- Appreciate DM RECYCLING COORDINATOR consult
- New start Lantus and short acting insulin
- Diabetic diet
Abdominal distension
Chronic Ileus with possible Pseudoobstruction/[place]'s
-chronic Suboxone therapy which is clearly worsening his colonic ileus
-s/p Flex Sig evening 12/25 - no e/o volvulus
- s/p enema on 12/26 with BM, diet advanced
-follow up x-ray 12/27 with persistent large bowel obstruction
- appreciate GI
- continue senna BID, colace, Relistor
- Linzess started on 12/27
- Golytely for 12/28/24
- Per GI, therapeutic Gastrografin enema unable to be performed on 12/29/24
- Patient would like to avoid any surgery, and there is a high risk with anesthesia (essentially prohibitive for anything less than an emergency case)
- CRS and GI deciding on neostigmine (can possibly cause low blood pressure and slow heart rate) versus colonoscopy
Worsening Vision needing eyeglasses
-Patient reports this has worsened over the past few days, but he can see with the eyeglasses when reading material on his phone
-Spoke with both on-call collar fuser Dr. Prince Rodriguez and patient's collar fuser Dr. Booth: nothing to do as an inpatient
-Could be elevated blood sugars, shifts in myopia with blood sugars which can affect cataracts
-Dr. Booth last saw patient in September and vision was 20/40 in each eye. He is tentatively scheduled for surgery with Dr. 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
SOB - Mild hypoxia to 92%. No PE. Reports intermittent cough and CT suggest bronchitis. BNP 270 (morbid obesity)
- suspect SOB related to abdominal distention as well
- prn nebs
- cough meds
- doxycycline for acute bronchitis - day 03/11
Aflutter - new
Non-ischemic myocardial injury
- Risk factor modification (similar to that for AFib): treat obesity, possibly sleep apnea; minimize ETOH if applicable, increase exercise, etc
- Appreciate Cardiology
- Continue IV Heparin gtt
- TTE with new depressed EF (see below)
- Per Cardiology: Anesthesia would not favor sedation for JOHN; for now rate control only but no cardioversion. Once patient has been on anticoagulation for three weeks, add outpatient amiodarone and then it still in flutter or a
fib several weeks later, can cardiovert without JOHN, and that would need much less anesthesia.
- Eventually, when transitioning to oral anticoagulation, plan to start on Xarelto, not Eliquis (given expensive/cost reasons)
- Hold Metoprolol for now until we see how patient does with the addition of Neostigmine on 12/31/24
Non-ischemic cardiomyopathy
HFrEF -- some of his HF/reduced EF is in part tachycardia induced
-EF declined to 20-25%; was 50-55% in 2019
-Holding beta deanna as above
-appreciate cardiology
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
-Plan is to work towards GDMT once patient's GI issues improved and he is in sinus rhythm (SGLT2-I, MRA, HF BB, RAAS-I (ARNI/BOO-I/ARB), loop diuretic as needed
Chronic suboxone therapy
-continue for now
-Relistor as above/below
HTN
- Metoprolol
BPH
-continue tamsulosin
Renal lesion
Lymphadenopathy
New finding renal mass and debi-aortic lymphadenopathy
-discussing with Heme next steps; will also need Urology consult outpatient
-case discussed with Dr. Qiu on 12/27. LN present in 2011; patient should have outpatient follow up - no need for inpatient consult
-Patient will need outpatient referrals to Heme and Urology (Dr. Bone spoke with both consultants about CT findings).
DVT Prophylaxis: Heparin gtt
Code Status: Full Code
Anticipated Discharge: > 48 hours
Subjective/Interval History
-
Date of Service: December 31, 2024
Patient was seen and examined. His abdomen appeared to be more distended today, he denied significant pain however.
Objective Data
-
Labs:
Laboratory Results
12/31/24
04:39
WBC 8.6
Hgb 12.6 L
Hct 38.8 L
Plt Count 161
PT 14.8 H
INR 1.13
APTT 78.8 H
Sodium 132 L
Potassium 4.0
Chloride 102
Carbon Dioxide 24
BUN 17
Creatinine 0.8
Glucose 122 H
Calcium 9.0
Vital Signs:
Vital Signs
Temp Pulse Resp BP Pulse Ox
97.9 F 89 18 96/63 97
12/30/24 23:00 12/31/24 00:14 12/30/24 23:00 12/31/24 00:14 12/31/24 01:17
I&O
12/30/24 12/31/24 01/01/25
06:59 06:59 06:59
Intake Total 1200 / 1200 500 / 500
Balance 1200 / 1200 500 / 500
--- NOTE | 2024-12-31 07:39 | PN.DE.MGMTRT ---
Insulin Management
- -
12/31/2024: Diabetes Management Follow Up:
Patient admitted with SOB with approximately 4 months of polyuria and polydipsia; found to have distention of sigmoid colon, new renal mass, possible bronchitis. PMH: T2DM, HTN, BPH, Morbid Obesity, ERASMO not on CPAP and chronic pain. A1C on admission
17.7%, Cr 0.8, eGFR > 60. Pt states 2 years ago he was taking insulin but his A1C was 5.5 so he stopped his insulin. At that time, he was taking 30 units Lantus @ hs w/NovoLog 18 units AC. Glucose was >600 on admission.
Patient is awake, alert, oriented, able to discuss diabetes care plan.
12/30 premeal 132 to 179. AC novolog increased to 12 units with lantus 25 units in AM with moderate corrective.
12/31 Patient has been transferred to ICU and remains NPO. Will change AC novolog to Q 6 hour and reduce dose to 10 units.
Will cont to follow and make further insulin dose adjustments.
Pt was seen by the Diabetes RN educator and was provided a new glucose monitor on 12/26 .
Diabetes History
- -
Type of Diabetes: 2 requiring insulin
Pre-Admission Diabetes Regimen
12/31/24
04:39
Creatinine 0.8
Lab Results
Hemoglobin A1c 17.7 % (4.0-5.6) H 12/25/24 07:05
Insulin Pump Settings
IP Diabetes Regimen
12/30/24 12/30/24 12/30/24
12:02 16:35 21:30
Glucose
POC Glucose 179 H 132 H 158 H
12/31/24
04:39
Glucose 122 H
POC Glucose
Meal type: Breakfast
Patient Education
--- NOTE | 2024-12-31 08:08 | CON.INTV ---
Consultation
Consultation Request
Date/Time Consultation Requested: 12/31/2024238
Date/Time Consultation Performed: 12/31/2024800
Requesting Provider: ORIN Hughes
Performing Provider: Dr. Flores
Reason for Consultation: Constipation requiring neostigmine
Medical History
-
Chief Complaint: SOB
History of Present Illness:
64-year-old male with a past medical history of cardiomyopathy, hypertension, DM type II, history of chronic opioid use due to chronic arthritis now on buprenorphine, history of ERASMO, venous insufficiency and chronic back pain who presented with
shortness of breath. Patient presented with worsening abdominal distention. He also stopped his insulin prior to arrival because he thought his diet was controlling his diabetes. He had not had a bowel movement or passed flatus in 1 day when here
initially arrived. CT abdomen/pelvis on 12/24/2024 shows significant distention of the sigmoid colon without evidence for sigmoid volvulus. Also suspected component of stercoral colitis. There also was a rounded mass in the right kidney concerning
for renal cell carcinoma. He was admitted and underwent flexible sigmoidoscopy on 12/25 which showed a dilated sigmoid colon with stool in the rectosigmoid colon. No additional surgical intervention recommended and GI had continue to follow. He
was continued on aggressive bowel regimen. Also found to be in atrial flutter and was on IV heparin. Patient had plans for neostigmine to be tried and given significant cardiac risk he was transferred to the ICU and synthetic soil blocks pulper services consulted
for additional management/recommendations.
Pt seen and evaluated this AM. HR 98, BP 113/92 and SpO2 93% on room air. Still no BM since yesterday. Minimal abd pain, but lots of abd distension. Says he has not passed gas or had a bowel movement since admission. He otherwise feels okay,
denies shortness of breath, chest pain, fevers or chills.
PMHx: Hypertension, BPH, DM type II, chronic back pain, cardiomyopathy, venous insufficiency, history of ERASMO, severe osteoarthritis, chronic pain management due to arthritis currently on buprenorphine in an effort to get off of oxycodone
PSHx: Hip and knee surgery
Past Medical History
Past Medical History: Other (Above as per HPI)
Past Surgical History: Other (Above as per HPI)
Social History
Tobacco: Non-smoker
Alcohol: None
Drug: None
Personal:
Living: With Family
Family History
Family History: Reviewed & Not Pertinent
Allergies / Home Medications
Allergies
Allergy/AdvReac Type Severity Reaction Status Date / Time
No Known Allergies Allergy Verified 12/27/20 07:05
Home Medications
�Medication �Instructions �Recorded �Confirmed �Last Taken �Type
atorvastatin 40 mg tablet 40 mg PO HS High Cholesterol 12/24/24 12/24/24 Unknown History
buprenorphine 4 mg-naloxone 1 mg 0.5 film buccal HSPRN PRN opioid 12/24/24 12/24/24 Unknown History
sublingual film (Suboxone) dependence
buprenorphine 4 mg-naloxone 1 mg 1 film buccal NOON Opioid use 12/24/24 12/24/24 Unknown History
sublingual film (Suboxone) disorder
calcium carbonate 500 mg PO DAILY Supplement 12/24/24 12/24/24 Unknown History
lidocaine 4 % topical patch 1 patch topical BID right shoulder 12/24/24 12/24/24 Unknown History
lisinopril 2.5 mg tablet 2.5 mg PO NOON Blood Pressure 12/24/24 12/24/24 Unknown History
magnesium oxide 400 mg PO DAILY Supplement 12/24/24 12/24/24 Unknown History
metoprolol succinate 25 mg 12.5 mg PO NOON Blood Pressure 12/24/24 12/24/24 Unknown History
tablet,extended release 24 hr
tamsulosin 0.4 mg capsule 0.4 mg PO DAILYPRN PRN bloating 12/24/24 12/24/24 Unknown History
zinc sulfate 50 mg zinc (220 mg) 50 mg PO DAILY Supplement 12/24/24 12/24/24 Unknown History
tablet
blood sugar diagnostic ([facility]120 12/26/24 Unknown Rx
Verio test strips)
blood-glucose meter (OneTouch ##1 12/26/24 Unknown Rx
Verio Flex Meter)
lancets 30 gauge (Onet[facility]ica ##120 12/26/24 Unknown Rx
Safety Lancet)
Review of Systems
-
History Source: Patient
All other systems: Negative unless noted
Vitals / Labs / Diagnostic Testing
Vital Signs
Temp Pulse Resp BP Pulse Ox
97.9 F 90 11 116/80 92
12/30/24 23:00 12/31/24 09:30 12/31/24 09:30 12/31/24 09:00 12/31/24 09:30
Lab Data
12/31/24 04:39
12/31/24 04:39
Laboratory Results
12/31/24
04:39
PT 14.8 H
INR 1.13
APTT 78.8 H
Diagnostic Testing:
Physical Exam
-
HEENT: Normocephalic, Anicteric and Other (thick neck)
Cardiovascular: S1/S2, Murmur (negative) and Peripheral Edema (Trace lower extremity edema bilaterally)
Respiratory: Wheeze (negative), Rales (negative) and Rhonchi (negative)
GI: Soft, Distended, Non Tender and Other (Hypoactive bowel sounds)
Neurology: AO x 3 and Tremors (negative)
Skin: Warm and Dry
General: Respiratory Distress (negative), Comfortable, Chills (negative), Sweats (negative) and Other (Dry skin on feet bilaterally)
Assessment
-
Assessment: 64-year-old male with a past medical history of cardiomyopathy, hypertension, DM type II, history of chronic opioid use due to chronic arthritis now on buprenorphine, history of ERASMO, venous insufficiency and chronic back pain who
presented with shortness of breath. Patient presented with worsening abdominal distention. He also stopped his insulin prior to arrival because he thought his diet was controlling his diabetes. He had not had a bowel movement or passed flatus in
1 day when here initially arrived. CT abdomen/pelvis on 12/24/2024 shows significant distention of the sigmoid colon without evidence for sigmoid volvulus. Also suspected component of stercoral colitis. There also was a rounded mass in the right
kidney concerning for renal cell carcinoma. He was admitted and underwent flexible sigmoidoscopy on 12/25 which showed a dilated sigmoid colon with stool in the rectosigmoid colon. No additional surgical intervention recommended and GI had continue
to follow. He was continued on aggressive bowel regimen. Also found to be in atrial flutter and was on IV heparin. Patient had plans for neostigmine to be tried and given significant cardiac risk he was transferred to the ICU and synthetic soil blocks pulper
services consulted for additional management/recommendations.
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
OxyContin/oxycodone
Impression:
#Opioid induced constipation with large bowel gaseous distension
#Atrial flutter
#Acute bronchitis with shortness of breath/acute respiratory failure with hypoxia
#Chronic HFrEF with right ventricular systolic dysfunction
#Acute anemia
#Hyponatremia likely due to reduced PO intake
#Valvular heart disease with mild as moderate MR and mild as moderate TR
#Incidental rounded mass in right kidney concerning for renal cell carcinoma
#Morbid obesity
#DM type II
#Venous deficiency
#History of ERASMO
#Chronic pain management due to arthritis currently on buprenorphine in an effort to calm off of OxyContin/oxycodone
Plan:
- He has not had a sufficient BM in days, close to a week
- s/p methylnaltrexone x2 doses (12/28 + 12/30)
- Will give Neostigmine if ok with GI and colorectal surgery --> administered today at 10:59 AM without response --> defer to GI if additional dose is indicated tomorrow
- kept atropine at bedside during neostigmine administration in case HR drops <50
- Of note, no plans for surgery at this time --> will defer this decision to colorectal surgery, otherwise could consider decompressive colonoscopy but unclear if this would have high rate of success
- Up OOB as tolerated
- PT/OT
- Pain control
- Continue with aggressive bowel regimen for now, currently on senna, Linzess with prn Dulcolax; may be worth giving simethicone given the degree of gaseous distention he is experiencing
- Maintain SpO2 >90-94%
- He does have occasional shortness of breath with activity and this is likely due to abdominal distention which is causing a restrictive lung defect
- He has not had an elevated white count since 12/25/2024 and is nontoxic-appearing; continue with doxycycline for URI. CXR from today shows left retrocardiac opacification. Suspect this is more likely due to atelectasis than pneumonia. If
patient spikes a fever then would consider broadening antibiotics at that time with panculture
- Maintain MAP>65
- Defer GDMT to cardiology
- Defer anticoagulation to cardiology and continue with heparin gtt for now
- Goal HR<110bpm
- Replete electrolytes with K>4, Mg>2
- Maintain euglycemia with goal BG 140-180
- Trend H/H and transfuse if needed to keep Hb>7g/dL; keep plt>20k, unless there is concern for bleeding then keep plt>50k
- prn nebulized bronchodilators - not currently bronchospastic
- Incentive spirometer encouraged 10x per hour for at least 4 hrs a day
- Repeat outpatient dedicated CT abdomen with and without contrast with attention to kidneys to further evaluate for renal cell carcinoma
- DVT ppx: Heparin gtt
Patient is stable for downgrade out of ICU to IMU. No additional recommendations at this time. Literacy Specialist/Pulmonary service will now sign off. If there needs to be assistance for him to get any additional doses of neostigmine while in the IMU
and the hospitalist is not comfortable giving it, then please contact ICU service again for assistance.
Thank you for allowing us to be involved in the care of this patient. Please reconsult if there are any additional questions/concerns, or if patient's respiratory status deteriorates.
Total time spent today was 78 minutes for this encounter. Time includes reviewing laboratory test/imaging results, reviewing pertinent medical records, obtaining and reviewing medical history, performing an appropriate exam, ordering medications,
tests and procedures. Time also includes documentation of this encounter, coordinating patient care and communicating with other healthcare professionals. Total time does not include separately billed tests performed on this date of service.
--- NOTE | 2024-12-31 08:25 | PTCARENOTE ---
Assumed care of pt. approx 0700.
Pt. stating dissatisfaction with hospital service on other floors thus prior, refusing further care. Explained to pt. importance of adhering to the plan the medical team is providing due to his acute illness requiring escalation to the ICU. Provided
patient reassurance and emotional support regarding his frustrations with previous care, offered to have him speak with patient relations to express concerns, pt. declined at this time.
Resting in chair, Aflutter on monitor rate controlled, normotensive, normothermic.
Colorectal rounded, as well as cardiology, no changes as of now, awaiting GI rounds.
Diabetic team rounded, adjusted insulin orders per new NPO status.
No BM as of yet, bowel sounds absent.
RA spo2 93-96 maintaining own airway at this time.
All concerns addressed to best of ability, all care explained.
[2024-12-31] MEDS: NOVOLOG FLEXPEN-MODERATE RESISTANCE SC (08:39)
[2024-12-31] MEDS: DESENEX/MITRAZOL/ZEASORB 1 APPLIC TOPICAL ×2 (08:40→20:29)
[2024-12-31] MEDS: DEBROX EAR DROPS OTIC (08:40)
[2024-12-31] MEDS: SENOKOT 17.2 MG PO ×2 (08:41→20:29)
[2024-12-31] MEDS: VIBRAMYCIN 100 MG PO ×2 (08:42→20:30)
[2024-12-31] MEDS: LOPRESSOR 25 MG PO (08:42)
[2024-12-31] MEDS: HYDROPHOR 1 APPLIC TOPICAL (08:45)
[2024-12-31 08:47] LABS: Glucose - Point of Care 103 mg/dl (70-99)
--- NOTE | 2024-12-31 08:49 | W.PN.CRS1 ---
Addendum entered and electronically signed by Jl Pierre MD 12/31/24 16:27:
updated patient over the phone regarding repeat dose of neostigmine in the AM with possible cscope tmrw afternoon if no response and patient is agreeable; will consent him for possible surgery prior to sedation in case of perforation
Original Note:
Today's Communication / Plan
-
no plans for surgery today
neostigmine per GI
Assessment/Plan
-
64-year-old male with PMH of DM (stopped taking his insulin), HTN who presents for increasing abdominal bloating since September leading to worsening dyspnea over the last few days causing him to come to the ED; he denies any abdominal pain, nausea
or vomiting; his last BM was yesterday and last flatus was yesterday; in the ED, WBC 9.0, CTAP showing massively distended sigmoid with tapering around the rectosigmoid junction as well as thickening of the rectum and rectosigmoid, no convincing
evidence for sigmoid volvulus, ascending colon and cecum displaced to the left side of the abdomen (CTAP from 2011 showing a ascending colon in usual anatomic position); personally reviewed and interpreted, there is significant tapering in diameter
of the sigmoid at the rectosigmoid junction, raising my concern for sigmoid volvulus versus other cause of lead point, such as stricture or mass
Afebrile, HR ranging from 100-130, normotensive
WBC 8.6
-Recommend holding Xarelto for now until surgical planning finalized. Remains on heparin gtt. Discussed with cardiology.
-In IVU for tele monitoring. Neostigmine to be ordered today by GI.
-Currently on Relistor, Colace PRN, Senna BID. Received Golytly 12/28.
-Very high surgical risk. Will exhaust all medical treatment prior to surgery.
-Discussed with Dr. Pierre/cardiology/GI/hospitalist regarding above plan.
Subjective Data
Subjective Data
Date of Service: December 31, 2024
Patient states he has no abdominal pain. He is still distended. Last recorded BM was three days ago. He denies nausea or vomiting. He ate yesterday without difficulty.
Objective Data
-
Vital Signs
Temp Pulse Resp BP Pulse Ox
97.9 F 96 18 126/96 96
12/30/24 23:00 12/31/24 08:42 12/30/24 23:00 12/31/24 08:42 12/31/24 08:49
Intake & Output
12/30/24 12/31/24 01/01/25
06:59 06:59 06:59
Intake Total 1200 / 1200 500 / 500 0 / 0
Output Total 0 / 0
Balance 1200 / 1200 500 / 500 0 / 0
Intake:
Oral fluids 1200 / 1200 500 / 500 0 / 0
Output:
Urine, Voided 0 / 0
Other:
Number of approximated SMALL 2
amounts of urine
Number of approximated MODERATE 3
amounts of urine
Lab Results
12/31/24 04:39
12/31/24 04:39
Physical Exam
-
General: No Acute Distress and AOx3
Abdomen: Distended and Non Tender
Skin: Warm and Dry
[2024-12-31] MEDS: NOVOLOG FLEXPEN SC (09:44)
[2024-12-31] MEDS: PROSTIGMIN 2 MG IV (10:59)
[2024-12-31] MEDS: SUBUTEX 4 MG SL (11:22)
[2024-12-31] MEDS: LANTUS SC (11:23)
--- NOTE | 2024-12-31 12:29 | W.PN.CD ---
Today's Communication / Plan
-
-
-
Hold metoprolol for now until we see how he does with the addition of neostigmine
Plan for flutter for now is:
- just rate control
- move to Xarelto when OK with GI/Colorectal Surgery
- Once on Xarelto for 2-3 weeks will add Amio
- plan cardioversion w/o JOHN 1 month into Amio if still in flutter
Watch for need of Lasix
Later add GDMT for HFrEF
Still will need work up very concerning CT findings concerning for renal cell cancer and of lymphadenopathy concerning for lymphoma
More than 50 min spent caring for this patient today including coordinating care with nursing, hospitalist, colorectal surgery, and GI
Impression / Plan
-
GI: Massive segmental distention of the sigmoid associated with thickening of the rectosigmoid and rectum
- Colorectal surgery and GI involved
Atrial flutter, likely typical
- HR better controlled, now in 90
- On IV heparin
- For pt Eliquis is $122, Pradaxa is $33.51, and Xarelto is FREE
- Too high risk for JOHN
- Plan just rate control, move to Xarelto when OK with GI/Colorectal Surgery. Once on Xarelto for 2-3 weeks will add Amio and plan cardioversion w/o JOHN 1 month into Amio if still in flutter
- Risk factor modification as for AFib is appropriate: treat obesity, any sleep apnea; minimize ETOH, increase exercise, etc
HFrEF,
- EF 20-25% this admit
- LVEF in 2020 was 50-55% by echo.
- But by nuclear LV dilated and LVEF 24% in 12/2020
- Cath in 2020 no LV gram but LVEDP was elevated
- LVEF was 20% in 2012 with PCWP 32, RA 24, PA 68/34 and max cor lesion 30% mid Diag and luminals elsewhere. Cath 2020 no obstructive CAD
- we can hope that some of his HF/reduced EF is in part tachycardia induced
- Work on GDMT once GI issues improved (SGLT2-I, MRA, HF BB, RAAS-I (ARNI/BOO-I/ARB), loop diuretic as needed
- May need some Lasix if dyspnea develops
DM2, hgb A1C 17.7, glucose on arrival in 600's
Abnormal troponin from acute, non-ischemic myocardial injury in setting of acute illnesses as above
Morbid obesity, BMI 43
Lymphedema: legs wrapped
Renal mass, right, concern for renal Cell CA seen on CT this admit
HTN
Depression
Sleep apnea
Enlarged lymph nodes within the abdomen and pelvis => concern for neoplastic process, especially lymphoma and/or leukemia. seen on CT this admit
Non-obstructive CAD
Subjective:
Feeling better
Data:
Abdomen/Pelvis CT: Significant distention of the sigmoid colon, extending into the upper abdomen, but without convincing evidence for sigmoid volvulus. Unusual flipping of the cecum into the left pelvis. This is likely due to an elongated and
tortuous colon, perhaps displaced by the distended sigmoid colon. Moderate circumferential wall thickening involving the rectum and rectosigmoid junction, inferior to the distended portion of the sigmoid colon. There is also moderate amount of stool
within this portion of the sigmoid colon. A component of stercoral colitis in this region is possible. No evidence for free intraperitoneal air. Suggestion of a rounded mass arising from the lateral upper to mid right kidney, and raises concern for
renal cell carcinoma. There are enlarged lymph nodes within the abdomen and pelvis as described, which raises concern for a neoplastic process, especially lymphoma and/or leukemia.
Chest CT 12/24/24: Suboptimal opacification of the pulmonary arteries, and respiratory motion artifact in the inferior lungs. No evidence for central pulmonary embolism. Limited evaluation of the segmental and subsegmental pulmonary arteries. If
there are persistent clinical symptoms, consideration for repeat CT angiography of the chest with pulmonary embolism protocol. No evidence for thoracic aortic dissection or aneurysm. Findings of bronchitis within both lower lungs, especially within
the lower lobes. Linear atelectasis within both lower lungs, probably associated with bronchitis.No significant pleural effusion and no significant pericardial effusion. Coronary artery calcifications are present. In the upper abdomen, distention of
a loop of bowel within the upper abdomen which appears to be a loop of colon. There also appears to be slight thickening of the wall of this loop of distended colon.
Echo:CONCLUSIONS
Left ventricle is severely dilated.
Mild to moderate concentric left ventricular hypertrophy.
Severely reduced left ventricular systolic function.
Global hypokinesis.
Left ventricular ejection fraction is 20-25% by visual assessment.
Reduced right ventricular systolic function.
Enlarged right ventricular size.
Mild to moderate mitral regurgitation.
Mild to moderate tricuspid regurgitation.
Estimated pulmonary artery pressure of 30-35 mmHg.
Normal pericardium without effusion.
Compared to 2019 echocardiogram LV function is now moderate to severely
depressed
Cath 12/2020:
CONCLUSIONS
1: No obstructive coronary artery disease. False positive nuclear stress test.
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
3: Arteria lusoria.
4. LVEDP 24
Echo 09/2020:
CONCLUSIONS
Normal left ventricular size and systolic function. No regional wall motion
abnormalities are seen. LV ejection fraction is 50-55% by visual assessment.
Moderate concentric left ventricular hypertrophy.
Mildly dilated left atrium.
The aortic root is mildly dilated-3.8 cm at sinus of Valsalva.
Since echocardiogram June 2017, there is no significant change.
Physical Exam
Vital Signs/Labs
Vital Signs
Temp Pulse Resp BP Pulse Ox
97.9 F 90 11 116/80 92
12/31/24 11:20 12/31/24 09:30 12/31/24 09:30 12/31/24 09:00 12/31/24 09:30
12/30/24 12/31/24 01/01/25
06:59 06:59 06:59
Actual Weight 153.116 kg 152.8 kg
12/31/24 04:39
12/31/24 04:39
PT 14.8 Sec (11.4-14.6) H 12/31/24 04:39
INR 1.13 12/31/24 04:39
APTT 78.8 Sec (23.4-35.0) H 12/31/24 04:39
Magnesium 1.9 mg/dl (1.6-2.3) 12/31/24 04:39
Triglycerides 389 mg/dl (10-149) H 12/25/24 07:05
LDL Cholesterol, Calc 91 mg/dl 12/25/24 07:05
VLDL Cholesterol, Calc 77 mg/dl (0-30) H 12/25/24 07:05
HDL Cholesterol 51 mg/dl 12/25/24 07:05
12/24/24
20:48
[id number] Pept 270
Physical Exam
Constitutional: No acute distress
Cardiovascular: Rhythm/rate is irregular, S1S2 is normal and Murmur/rub/gallop absent
Respiratory: Respiratory effort normal and Lungs clear to auscul.
GI: Soft and Distention present
Neuro/Psych: AO x 3
Data Reviewed
-
Date of Service: December 31, 2024
[2024-12-31 13:15] LABS: Glucose - Point of Care 114 mg/dl (70-99)
--- NOTE | 2024-12-31 13:25 | PTCARENOTE ---
Neostig did not result in BM, per medical team, no second dose to be given at this time, pt. to be downgraded out of the ICU per well treatment offsider/medical team.
--- NOTE | 2024-12-31 14:31 | CM ---
CM following re: discharge planning.
Reviewed pt's chart, met with pt.
Per Colorectal surgery, no plans for surgery today, continue supportive care.
Pt resides and two adult children (currently in College) in a multiple story home and pt is independent in all areas [employer].
D/C plan: home with anticipated no needs.
CM will follow with discharge plan updates as hospitalization progresses
[2024-12-31] MEDS: LANTUS 0.25 UNITS SC (15:09)
[2024-12-31 15:16] LABS: Glucose - Point of Care 113 mg/dl (70-99)
--- NOTE | 2024-12-31 15:54 | PTCARENOTE ---
POC Blood sugars ranging from 103-114. Standing dose held this morning. Pharmacy reached out to Diabetic management SHANIA, new orders to hold standing dose, cont. lantus, cont. sliding scale.
No BM as of yet. Remains on heparin. Ambulated to chair.
--- NOTE | 2024-12-31 16:32 | W.PN.GI.CBS2 ---
Today's Communication / Plan
-
Continue current meds
Continue to monitor in ICU post neostigmine
For repeat neostigmine 4 mg tomorrow per CRS and flex sig for decompression if not improved with Dr. Pierre
Assessment / Plan
-
Pt is a 64yo with hx IDDM, HTN, hypercholesterolemia, cardiomyopathy, chronic pain, BPH, sleep apnea, obesity, depression presents with shortness of breath. On admission pt admits to recently weaning self off insulin with polyuria and polydipsia.
On admission he is noted with multiple issues including glucose of 660, troponin 0,068 with mild rise after admission, na 125, and WBC 12,800. Imaging with CT chest- suboptimal pulm arteries but neg PE. No dissection or aneurysm, no pericardial or
pleural effusion. There was noted distended loop of bowel in upper abdomen with distention. Further follow up CT A/p with distention of sigmoid colon without volvulus with consideration for decompression tube. Also noted flipping of cecum with
elongated and tortuous with possible displacement of distended sigmoid. Also moderate wall thickening of rectosigmoid inferior to distended sigmoid with moderate stool in portion of sigmoid and possible stercoral colitis. Ct further suggest mass
lateral to upper to mid right kidney concern for renal cell CA with need for further with and without Ct imaging and enlarged lymph nodes with concern for neoplastic process - lymphoma or leukemia.
--Thickening of the rectosigmoid and rectum status post flex sig with colorectal surgery. Significant stool and gas. No volvulus, inflammation or obstructing lesion.
-renal mass concern for renal Cell CA
-enlarged lymph nodes with concern for neoplastic process
-aflutter-new
-hypotension
-occasional dysphagia
-hyponatremia
other med problems:
-HTN
-cardiomyopathy
-chronic pain-NSAID use
-BPH
-sleep apnea
-obesity
-depression
PLAN:
colonic ileus with possible pseudoobstruction/ Jsoe's. Status post flex sig 12/25.
He did have a large bowel movement 12/26 after the milk of molasses enema and another large bowel movement 12/28 with Relistor and 12/29 after GoLytely none since then
Continue senna twice daily
Started Linzess 290 mcg 12/27
Will also need enemas or suppositories as needed
CT from 12/25 with no bowel obstruction and sigmoidoscopy also did not reveal any obstruction or stricture
May need repeat CT if worsens
They were unable to perform a therapeutic Gastrografin enema
Received 2 mg of neostigmine 12/31 unfortunately did not have response to it and CRS to repeat 4 mg 01/01 with help of manager services Dr. Flores and flex sig for decompression if no response to that also per CRS
He has been on chronic Suboxone therapy which is clearly worsening his colonic ileus if possible would try to get pain management involved to wean off narcotics
Continue Relistor every other day if needed( got dose 12/28 and 12/30)
correct electrolytes as needed.
Timing of JOHN/cardioversion per Cardiology
He also has a renal mass and lymphadenopathy noted on CT workup per primary team and will need hematology input inpatient versus outpatient.
Discussed with Dr. Flores, Dr. Pierre and Dr. Phillip
Subjective
Subjective
Date of Service: December 31, 2024
Received 2 mg of neostigmine today after transfer to ICU unfortunately he did not have response to it. He did not really pass much gas and also did not have a bowel movement. Currently denies any abdominal pain no nausea or vomiting
Objective
Data Reviewed
Laboratory Data:
Laboratory Results
12/31/24 04:39
12/31/24 04:39
Laboratory Results
PT 14.8 Sec (11.4-14.6) H 12/31/24 04:39
INR 1.13 12/31/24 04:39
APTT 78.8 Sec (23.4-35.0) H 12/31/24 04:39
Phosphorus 4.1 mg/dl (2.5-4.5) 12/31/24 04:39
Magnesium 1.9 mg/dl (1.6-2.3) 12/31/24 04:39
Total Bilirubin 1.0 mg/dl (0.2-1.3) 12/24/24 20:48
AST 46 U/L (17-59) 12/24/24 20:48
ALT 23 U/L (0-50) 12/24/24 20:48
Alkaline Phosphatase 310 U/L (38-126) H 12/24/24 20:48
Vital Signs and I&O:
Vital Signs
Temp Pulse Resp BP Pulse Ox
97.9 F 80 20 92/69 93
12/31/24 11:20 12/31/24 12:00 12/31/24 12:00 12/31/24 12:00 12/31/24 12:00
I&O
12/30/24 12/31/24 01/01/25
06:59 06:59 06:59
Intake Total 1200 / 1200 500 / 500 258 / 258
Output Total 0 / 0
Balance 1200 / 1200 500 / 500 258 / 258
Physical Exam
Physical Exam
Cardiology: Irregular Rate/Rhythm
GI: Soft, Distended, Non Tender, Normal Bowel Sounds and Other (Tympanic)
[2024-12-31] MEDS: TYLENOL 650 MG PO (17:05)
[2024-12-31 17:43] LABS: Glucose - Point of Care 104 mg/dl (70-99)
[2024-12-31] MEDS: DEBROX EAR DROPS 1 DROP OTIC (20:29)
--- NOTE | 2024-12-31 20:29 | PTCARENOTE ---
Assumed care of pt from dayshift. Pt OOB to chair. Denies pain, but complains of abdominal distention, bowel sounds hypo active. Pt has not had a BM. BP 90s-100s/70s. HR A flutter 90s, 110s with activity. VEGA, ambulated to bathroom for hygiene.
Call bedoya within reach.
[2024-12-31] MEDS: LIPITOR 40 MG PO (20:31)
[2024-12-31 22:30] LABS: Glucose - Point of Care 80 mg/dl (70-99)
[2024-12-31] MEDS: LANTUS 0.1 UNITS SC (23:13)
[2025-01-01] VITALS (22 sets, daily range): BP systolic 94–140; BP diastolic 65–104; PULSE 105; BMI 43.1
--- NOTE | 2025-01-01 00:43 | PTCARENOTE ---
Assessment remains unchanged. Wound care completed and documented. Still no BM. Pt using call bedoya as needed.
[2025-01-01] MEDS: HEPARIN 25000 UNITS/250 ML IV ×2 (01:41→21:01)
[2025-01-01 04:49] LABS: Hematocrit 41.7 % (39.0-52.0); Hemoglobin 13.6 g/dL (13.0-18.0); Mean Corp Hgb Conc. 32.6 g/dL (33.0-37.0); Mean Corpuscular Hgb 28.3 pg (27.0-31.0); Mean Corpuscular Volume 86.9 fL (80.0-94.0); Mean Platelet Volume 10.6 fL (7.4-10.4); Platelet Count 153 10^3/uL (130-400); Red Cell Dist. Width 13.2 % (11.5-14.5); White Blood Cell Count 8.2 10^3/uL (4.8-10.8)
[2025-01-01 04:56] LABS: APTT 138.3 Sec (23.4-35.0)
[2025-01-01 05:23] LABS: ALT (SGPT) 103 U/L (0-50); AST (SGOT) 90 U/L (17-59); Albumin 3.4 g/dl (3.5-5.0); Alkaline Phosphatase 185 U/L (38-126); Blood Urea Nitrogen 14 mg/dl (9-20); Calcium 9.2 mg/dl (8.4-10.2); Carbon Dioxide 25 mmol/L (22-30); Chloride 100 mmol/L (98-107); Direct Bilirubin 0.3 mg/dl (0.0-0.4); Estimated Creatinine Clearance > 125 ml/min; Glucose 74 mg/dl (70-99); Magnesium 1.9 mg/dl (1.6-2.3); Phosphorus 4.2 mg/dl (2.5-4.5); Potassium 4.2 mmol/L (3.5-5.1); Sodium 133 mmol/L (135-145); Total Bilirubin 1.1 mg/dl (0.2-1.3); Total Protein 5.9 g/dl (6.3-8.2); eGFR > 60.00
[2025-01-01] MEDS: DEXTROSE 50% SYRINGE 12.5 GRAMS IV (05:41)
[2025-01-01 05:42] LABS: Glucose - Point of Care 63 mg/dl (70-99)
--- NOTE | 2025-01-01 06:09 | PTCARENOTE ---
pt blood sugar this am 63, slightly diaphoretic. Orders in for IV dextrose, med given. BS recheck 101.
[2025-01-01 06:20] LABS: Glucose - Point of Care 101 mg/dl (70-99)
[2025-01-01] MEDS: LINZESS 290 MCG PO (06:40)
--- NOTE | 2025-01-01 07:26 | PN.DE.MGMTRT ---
Insulin Management
- -
01/01/2025: Diabetes Management Follow Up:
Patient admitted with SOB with approximately 4 months of polyuria and polydipsia; found to have distention of sigmoid colon, new renal mass, possible bronchitis. PMH: T2DM, HTN, BPH, Morbid Obesity, ERASMO not on CPAP and chronic pain. A1C on admission
17.7%, Cr 0.8, eGFR > 60. Pt states 2 years ago he was taking insulin but his A1C was 5.5 so he stopped his insulin. At that time, he was taking 30 units Lantus @ hs w/NovoLog 18 units AC. Glucose was >600 on admission.
Patient is awake, alert, oriented, able to discuss diabetes care plan.
12/31 premeal 103 to 114. AC novolog HELD. Lantus 25 units ordered to be given in AM not given until 3pm, HS lantus given at 11pm.
01/01 Patient glucose 63 fasting due to late administration of lantus and added dose at HS. Patient remains NPO for procedure today, will stop HS lantus and reduce AM lantus to 20 units. AC novolog stopped, continue moderate corrective q6 hours.
Discussed with nurse.
Will follow
Pt was seen by the Diabetes RN educator and was provided a new glucose monitor on 12/26 .
Diabetes History
- -
Type of Diabetes: 2 requiring insulin
Pre-Admission Diabetes Regimen
01/01/25
04:24
Creatinine 0.8
Lab Results
Hemoglobin A1c 17.7 % (4.0-5.6) H 12/25/24 07:05
Insulin Pump Settings
IP Diabetes Regimen
12/31/24 12/31/24 12/31/24
08:36 13:04 15:05
Glucose
POC Glucose 103 H 114 H 113 H
12/31/24 12/31/24 01/01/25
17:32 22:19 04:24
Glucose 74
POC Glucose 104 H 80
01/01/25 01/01/25
05:30 06:09
Glucose
POC Glucose 63 L 101 H
Patient Education
[2025-01-01 07:57] LABS: Glucose - Point of Care 108 mg/dl (70-99)
--- NOTE | 2025-01-01 08:03 | W.PN.CRS1 ---
Today's Communication / Plan
-
neostigmine this morning
colonoscopy later today
Assessment/Plan
-
64-year-old male with PMH of DM (stopped taking his insulin), HTN who presents for increasing abdominal bloating since September leading to worsening dyspnea over the last few days causing him to come to the ED; he denies any abdominal pain, nausea
or vomiting; his last BM was yesterday and last flatus was yesterday; in the ED, WBC 9.0, CTAP showing massively distended sigmoid with tapering around the rectosigmoid junction as well as thickening of the rectum and rectosigmoid, no convincing
evidence for sigmoid volvulus, ascending colon and cecum displaced to the left side of the abdomen (CTAP from 2011 showing a ascending colon in usual anatomic position); personally reviewed and interpreted, there is significant tapering in diameter
of the sigmoid at the rectosigmoid junction, raising my concern for sigmoid volvulus versus other cause of lead point, such as stricture or mass
-Recommend holding Xarelto for now until surgical planning finalized. Remains on heparin gtt. Discussed with cardiology.
-In IVU for tele monitoring. Neostigmine to be ordered this morning by Dr. Alston
-Currently on Relistor, Colace PRN, Senna BID. Received Golytly 12/28.
-Very high surgical risk. Will exhaust all medical treatment prior to surgery.
-Discussed with Dr. Pierre/cardiology/GI/hospitalist regarding above plan.
-Decompressive colonoscopy on the schedule with Dr. Pierre later today if neostigmine is unsuccessful
-Remain NPO for scope
Subjective Data
Subjective Data
Date of Service: January 01, 2025
Patient still has not had a bowel movement. He is still distended. He denies nausea or vomiting.
Objective Data
-
Vital Signs
Temp Pulse Resp BP Pulse Ox
97.8 F 126 24 97/71 95
01/01/25 03:42 01/01/25 04:30 01/01/25 04:30 01/01/25 04:00 12/31/24 23:00
Intake & Output
12/31/24 01/01/25 01/02/25
06:59 06:59 06:59
Intake Total 500 / 500 258 / 258 312 / 312
Output Total 725 / 725
Balance 500 / 500 -467 / -467 312 / 312
Intake:
Oral fluids 500 / 500 50 / 50
IV fluids (Total) 208 / 208 312 / 312
Heparin 208 / 208 312 / 312
Output:
Urine, Voided 725 / 725
Other:
Number of approximated SMALL 2
amounts of urine
Number of approximated MODERATE 2
amounts of urine
Lab Results
01/01/25 04:24
01/01/25 04:24
Physical Exam
-
General: No Acute Distress and AOx3
Abdomen: Distended and Non Tender
Skin: Warm and Dry
--- NOTE | 2025-01-01 10:56 | W.PN.CD ---
Addendum entered and electronically signed by Cristobal Balderrama MD 01/01/25 11:26:
64 yo male with sigmoid colon distention. We are consulted for atrial flutter with RVR. He does not feel the flutter. Exam with irregular tachy rhythm, no murmus, 2+ LE edema. Tele: A fl 120s.
Plan to add back beta deanna once neostigmine course done. Then eventually start xarelto (plan outlined by EP on 12/31).
Original Note:
Today's Communication / Plan
-
Continue to hold metoprolol, as he is getting neostigmine
Monitor volume status
Otherwise, cardiac plan as below once other issues addressed
Impression / Plan
-
GI: Massive segmental distention of the sigmoid associated with thickening of the rectosigmoid and rectum
-Colorectal surgery and GI involved
-getting neostigmine, then getting decompressive colonoscopy today
Atrial flutter, likely typical
- HR remains elevated
- On IV heparin, which requires intensive monitoring
- Too high risk for JOHN
- Plan just rate control, move to Xarelto (most affordable option for him) when OK with GI/Colorectal Surgery. Once on Xarelto for 2-3 weeks will add Amio and plan cardioversion w/o JOHN 1 month into Amio if still in flutter
- Risk factor modification as for AFib is appropriate: treat obesity, any sleep apnea; minimize ETOH, increase exercise, etc
HFrEF,
- EF 20-25% this admit
- LVEF in 2020 was 50-55% by echo.
- But by nuclear LV dilated and LVEF 24% in 12/2020
- Cath in 2020 no LV gram but LVEDP was elevated
- LVEF was 20% in 2012 with PCWP 32, RA 24, PA 68/34 and max cor lesion 30% mid Diag and luminals elsewhere. Cath 2020 no obstructive CAD
- we can hope that some of his HF/reduced EF is in part tachycardia induced
- Work on GDMT once GI issues improved (SGLT2-I, MRA, HF BB, RAAS-I (ARNI/BOO-I/ARB), loop diuretic as needed
- May need some Lasix if dyspnea develops -currently no lasix needed
DM2, hgb A1C 17.7, glucose on arrival in 600's
Abnormal troponin from acute, non-ischemic myocardial injury in setting of acute illnesses as above
Morbid obesity, BMI 43
Lymphedema: legs wrapped
Renal mass, right, concern for renal Cell CA seen on CT this admit- plan per primary
Enlarged lymph nodes within the abdomen and pelvis => concern for neoplastic process, especially lymphoma and/or leukemia. seen on CT this admit- plan per primary
HTN
Depression
Sleep apnea
Non-obstructive CAD
Data:
Abdomen/Pelvis CT: Significant distention of the sigmoid colon, extending into the upper abdomen, but without convincing evidence for sigmoid volvulus. Unusual flipping of the cecum into the left pelvis. This is likely due to an elongated and
tortuous colon, perhaps displaced by the distended sigmoid colon. Moderate circumferential wall thickening involving the rectum and rectosigmoid junction, inferior to the distended portion of the sigmoid colon. There is also moderate amount of stool
within this portion of the sigmoid colon. A component of stercoral colitis in this region is possible. No evidence for free intraperitoneal air. Suggestion of a rounded mass arising from the lateral upper to mid right kidney, and raises concern for
renal cell carcinoma. There are enlarged lymph nodes within the abdomen and pelvis as described, which raises concern for a neoplastic process, especially lymphoma and/or leukemia.
Chest CT 12/24/24: Suboptimal opacification of the pulmonary arteries, and respiratory motion artifact in the inferior lungs. No evidence for central pulmonary embolism. Limited evaluation of the segmental and subsegmental pulmonary arteries. If
there are persistent clinical symptoms, consideration for repeat CT angiography of the chest with pulmonary embolism protocol. No evidence for thoracic aortic dissection or aneurysm. Findings of bronchitis within both lower lungs, especially within
the lower lobes. Linear atelectasis within both lower lungs, probably associated with bronchitis.No significant pleural effusion and no significant pericardial effusion. Coronary artery calcifications are present. In the upper abdomen, distention of
a loop of bowel within the upper abdomen which appears to be a loop of colon. There also appears to be slight thickening of the wall of this loop of distended colon.
Echo:CONCLUSIONS
Left ventricle is severely dilated.
Mild to moderate concentric left ventricular hypertrophy.
Severely reduced left ventricular systolic function.
Global hypokinesis.
Left ventricular ejection fraction is 20-25% by visual assessment.
Reduced right ventricular systolic function.
Enlarged right ventricular size.
Mild to moderate mitral regurgitation.
Mild to moderate tricuspid regurgitation.
Estimated pulmonary artery pressure of 30-35 mmHg.
Normal pericardium without effusion.
Compared to 2019 echocardiogram LV function is now moderate to severely
depressed
Cath 12/2020:
CONCLUSIONS
1: No obstructive coronary artery disease. False positive nuclear stress test.
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
3: Arteria lusoria.
4. LVEDP 24
Echo 09/2020:
CONCLUSIONS
Normal left ventricular size and systolic function. No regional wall motion
abnormalities are seen. LV ejection fraction is 50-55% by visual assessment.
Moderate concentric left ventricular hypertrophy.
Mildly dilated left atrium.
The aortic root is mildly dilated-3.8 cm at sinus of Valsalva.
Since echocardiogram June 2017, there is no significant change.
Physical Exam
Vital Signs/Labs
Vital Signs
Temp Pulse Resp BP Pulse Ox
97.8 F 126 19 140/85 95
01/01/25 03:42 01/01/25 10:45 01/01/25 10:45 01/01/25 09:42 12/31/24 23:00
12/31/24 01/01/25 01/02/25
06:59 06:59 06:59
Actual Weight 152.8 kg 152 kg
01/01/25 04:24
01/01/25 04:24
PT 14.8 Sec (11.4-14.6) H 12/31/24 04:39
INR 1.13 12/31/24 04:39
APTT 138.3 Sec (23.4-35.0) H 01/01/25 04:24
Magnesium 1.9 mg/dl (1.6-2.3) 01/01/25 04:24
Triglycerides 389 mg/dl (10-149) H 12/25/24 07:05
LDL Cholesterol, Calc 91 mg/dl 12/25/24 07:05
VLDL Cholesterol, Calc 77 mg/dl (0-30) H 12/25/24 07:05
HDL Cholesterol 51 mg/dl 12/25/24 07:05
12/24/24
20:48
[id number] Pept 270
Physical Exam
Constitutional: No acute distress
EENT: Anicteric
Cardiovascular: Rhythm/rate is irregular and Pedal edema present (mild BLE edema)
Respiratory: Respiratory effort normal and Lungs clear to auscul.
Neuro/Psych: AO x 3
Data Reviewed
-
Date of Service: January 01, 2025
EKG: Other (Aflutter 120 BPM)
Echo: Report Reviewed by me (as detailed)
Labs: Labs Reviewed by me
[2025-01-01] MEDS: DEBROX EAR DROPS 5 DROP OTIC (10:57)
[2025-01-01] MEDS: DESENEX/MITRAZOL/ZEASORB 1 APPLIC TOPICAL ×2 (10:58→21:03)
[2025-01-01] MEDS: HYDROPHOR TOPICAL (10:59)
[2025-01-01] MEDS: LANTUS 0.2 UNITS SC (11:02)
[2025-01-01] MEDS: SENOKOT 17.2 MG PO ×2 (11:13→21:04)
[2025-01-01 11:16] LABS: Glucose - Point of Care 106 mg/dl (70-99)
[2025-01-01 11:45] LABS: Glucose - Point of Care 109 mg/dl (70-99)
--- NOTE | 2025-01-01 11:54 | W.PN.GI.CBS2 ---
Today's Communication / Plan
-
Continue current laxatives
Assessment / Plan
-
Pt is a 64yo with hx IDDM, HTN, hypercholesterolemia, cardiomyopathy, chronic pain, BPH, sleep apnea, obesity, depression presents with shortness of breath. On admission pt admits to recently weaning self off insulin with polyuria and polydipsia.
On admission he is noted with multiple issues including glucose of 660, troponin 0,068 with mild rise after admission, na 125, and WBC 12,800. Imaging with CT chest- suboptimal pulm arteries but neg PE. No dissection or aneurysm, no pericardial or
pleural effusion. There was noted distended loop of bowel in upper abdomen with distention. Further follow up CT A/p with distention of sigmoid colon without volvulus with consideration for decompression tube. Also noted flipping of cecum with
elongated and tortuous with possible displacement of distended sigmoid. Also moderate wall thickening of rectosigmoid inferior to distended sigmoid with moderate stool in portion of sigmoid and possible stercoral colitis. Ct further suggest mass
lateral to upper to mid right kidney concern for renal cell CA with need for further with and without Ct imaging and enlarged lymph nodes with concern for neoplastic process - lymphoma or leukemia.
--Thickening of the rectosigmoid and rectum status post flex sig with colorectal surgery. Significant stool and gas. No volvulus, inflammation or obstructing lesion.
-renal mass concern for renal Cell CA
-enlarged lymph nodes with concern for neoplastic process
-aflutter-new
-hypotension
-occasional dysphagia
-hyponatremia
other med problems:
-HTN
-cardiomyopathy
-chronic pain-NSAID use
-BPH
-sleep apnea
-obesity
-depression
PLAN:
colonic ileus with possible pseudoobstruction/ [place]'s. Status post flex sig 12/25.
He did have a large bowel movement 12/26 after the milk of molasses enema and another large bowel movement 12/28 with Relistor and 12/29 after GoLytely none since then
Continue senna twice daily
Started Linzess 290 mcg 12/27
Will also need enemas or suppositories as needed
CT from 12/25 with no bowel obstruction and sigmoidoscopy also did not reveal any obstruction or stricture
May need repeat CT if worsens
They were unable to perform a therapeutic Gastrografin enema
Received 2 mg of neostigmine 12/31 unfortunately did not have response to it and CRS to repeat 4 mg 01/01 with help of ribbon winder Dr. Flores and flex sig for decompression if no response to that also per CRS
Maximized medical laxative regimen with very minimal benefit
Decision regarding surgery if fails decompression with sigmoidoscopy today will defer to colorectal
He has been on chronic Suboxone therapy which is clearly worsening his colonic ileus if possible would try to get pain management involved to wean off narcotics
Continue Relistor every other day if needed( got dose 12/28 and 12/30)
correct electrolytes as needed.
Timing of JOHN/cardioversion per Cardiology
He also has a renal mass and lymphadenopathy noted on CT workup per primary team and will need hematology input inpatient versus outpatient.
GI will sign off and will be available as needed
Subjective
Subjective
Date of Service: January 01, 2025
unfortunately no bowel movement overnight and passed very little flatus, still appears very distended, no nausea or vomiting, denies abdominal pain.
Objective
Data Reviewed
Laboratory Data:
Laboratory Results
01/01/25 04:24
01/01/25 04:24
Laboratory Results
PT 14.8 Sec (11.4-14.6) H 12/31/24 04:39
INR 1.13 12/31/24 04:39
APTT 138.3 Sec (23.4-35.0) H 01/01/25 04:24
Phosphorus 4.2 mg/dl (2.5-4.5) 01/01/25 04:24
Magnesium 1.9 mg/dl (1.6-2.3) 01/01/25 04:24
Total Bilirubin 1.1 mg/dl (0.2-1.3) 01/01/25 04:24
AST 90 U/L (17-59) H 01/01/25 04:24
ALT 103 U/L (0-50) H 01/01/25 04:24
Alkaline Phosphatase 185 U/L (38-126) H 01/01/25 04:24
Vital Signs and I&O:
Vital Signs
Temp Pulse Resp BP Pulse Ox
97.8 F 109 20 140/85 95
01/01/25 03:42 01/01/25 11:15 01/01/25 11:15 01/01/25 09:42 12/31/24 23:00
I&O
12/31/24 01/01/25 01/02/25
06:59 06:59 06:59
Intake Total 500 / 500 258 / 258 312 / 312
Output Total 725 / 725
Balance 500 / 500 -467 / -467 312 / 312
Physical Exam
Physical Exam
Cardiology: Normal Sinus Rhythm
Pulmonary: Clear
GI: Soft, Distended, Non Tender and Normal Bowel Sounds
--- NOTE | 2025-01-01 12:05 | W.PN.UPDATE ---
Update Note
Progress Note Update
Asked to assist with administration with neostigmine. I will order 2 mg now and I asked the nurse to assess closely, and keep me posted if there is any drop in heart rate by >25% or symptoms of lightheadedness, dizziness, chest pain, shortness of
breath.
[2025-01-01] MEDS: SUBUTEX 4 MG SL (12:30)
[2025-01-01] MEDS: PROSTIGMIN 2 MG IV (12:30)
--- NOTE | 2025-01-01 12:39 | PTCARENOTE ---
Addendum entered by Jasper Cornelius RN 01/01/25 13:44:
Pt assisted to bathroom for large amount liquid stool and flatus. Pt reports relief. HR dropped as low as mid 50s. Pt asymptomatic.
Original Note:
Neostigmine administered at this time. Pt sl nauseated.
--- NOTE | 2025-01-01 14:07 | CM ---
CM following re: discharge planning.
Reviewed pt's chart, met with pt.
Per Colorectal surgery, colonoscopy later today , continue supportive care.
Pt resides and two adult children (currently in College) in a multiple story home and pt is independent in all areas [employer].
D/C plan: home with anticipated no needs.
CM will follow with discharge plan updates as hospitalization progresses
--- NOTE | 2025-01-01 16:23 | W.PN.UPDATE ---
Update Note
Progress Note Update
About 15 minutes after his dose of neostigmine, the patient had a significant amount of flatus and liquid stool. He still feels a little bloated but he said very close to his normal. Will cancel colonoscopy for now and continue monitoring.
--- NOTE | 2025-01-01 17:07 | PTCARENOTE ---
Plan of care discussed with benjamin Barney to resume CLD. heparin gtt resumed per cards. See flowsheet.
[2025-01-01 17:46] LABS: Glucose - Point of Care 107 mg/dl (70-99)
[2025-01-01] MEDS: NOVOLOG FLEXPEN-MODERATE RESISTANCE SC (18:01)
--- NOTE | 2025-01-01 19:18 | W.PN.HOSP.TC ---
Today's Communication/Plan
-
Neostigmine with some results today
Assessment / Plan
Assessment / Plan
Physical Exam
General: No Apparent Distress
HEENT: Normocephalic
Respiratory: Clear to Auscultation Bilaterally
Cardiac: Regular Rhythm and S1/S2
GI: Other (distended)
Musculoskeletal: No Edema
Skin: Warm and Dry
Neuro: AAO x 3
Psych: Calm
Assessment/Plan
Patient is a 64-year-old with history of diabetes, hypertension, BPH, morbid obesity, ERASMO not on CPAP and chronic pain who presented to the emergency department with episodes of shortness of breath in the setting of approximately 4 months of
polyuria and polydipsia after stopping insulin for presumed normal hemoglobin A1c of 5.5. He is found to have hyperglycemia, significant distention of sigmoid colon, new renal mass, bronchitis, and new diagnosis of aflutter .
Chest CT
IMPRESSION: Suboptimal opacification of the pulmonary arteries, and respiratory motion artifact in the inferior lungs. No evidence for central pulmonary embolism. Limited evaluation of the segmental and subsegmental pulmonary arteries.
If there are persistent clinical symptoms, consideration for repeat CT angiography of the chest with pulmonary embolism protocol.
No evidence for thoracic aortic dissection or aneurysm.
Findings of bronchitis within both lower lungs, especially within the lower lobes. Linear atelectasis within both lower lungs, probably associated with bronchitis.
No significant pleural effusion and no significant pericardial effusion.
Coronary artery calcifications are present. Please correlate with symptoms of and risk factors for coronary artery disease, with further workup as clinically appropriate.
In the upper abdomen, distention of a loop of bowel within the upper abdomen which appears to be a loop of colon. There also appears to be slight thickening of the wall of this loop of distended colon. The patient is scheduled for a separate CT of
the abdomen and pelvis, which will be reported separately.
Abdomen/Pelvis CT
IMPRESSION: Significant distention of the sigmoid colon, extending into the upper abdomen, but without convincing evidence for sigmoid volvulus.
Consideration for attempt at decompression tube placement.
Unusual flipping of the cecum into the left pelvis, and new finding from previous examination of December 25, 2011. This is likely due to an elongated and tortuous:, Perhaps displaced by the distended sigmoid colon.
Moderate circumferential wall thickening involving the rectum and rectosigmoid junction, inferior to the distended portion of the sigmoid colon. There is also moderate amount of stool within this portion of the sigmoid colon. A component of
stercoral colitis in this region is possible.
No evidence for free intraperitoneal air.
Suggestion of a rounded mass arising from the lateral upper to mid right kidney, and raises concern for renal cell carcinoma. When clinically feasible, advise further evaluation with dedicated CT of the abdomen without and with contrast with
attention to the kidneys.
There are enlarged lymph nodes within the abdomen and pelvis as described, which raises concern for a neoplastic process, especially lymphoma and/or leukemia. As warranted, consideration for lymph node biopsy.
Abdomen/Pelvis CT
IMPRESSION:
1.8 cm solid enhancing right renal mass, representing neoplasm until proven otherwise.
Nonobstructing left renal calculi.
Continued gaseous distention of the sigmoid colon.
Mild colonic diverticulosis. No evidence of acute diverticulitis.
Mild distal periaortic adenopathy and left common iliac chain adenopathy.
TTE 12/26/24
CONCLUSIONS
Left ventricle is severely dilated.
Mild to moderate concentric left ventricular hypertrophy.
Severely reduced left ventricular systolic function.
Global hypokinesis.
Left ventricular ejection fraction is 20-25% by visual assessment.
Reduced right ventricular systolic function.
Enlarged right ventricular size.
Mild to moderate mitral regurgitation.
Mild to moderate tricuspid regurgitation.
Estimated pulmonary artery pressure of 30-35 mmHg.
Normal pericardium without effusion.
Compared to 2019 echocardiogram LV function is now moderate to severely
depressed
X-ray
IMPRESSION: Progressed large bowel distention concerning for colonic obstruction.
Moderate fecal material in the colon. Progressed.

Hyperglycemia
Uncontrolled DM with A1c 17.7%
- Patient has not seen a doctor in years
- Appreciate DM METAL CRAFTS TEACHER consult
- New start Lantus and short acting insulin
- Diabetic diet
Abdominal distension
Chronic Ileus with possible Pseudoobstruction/[place]'s
-chronic Suboxone therapy which is clearly worsening his colonic ileus
-s/p Flex Sig evening 12/25 - no e/o volvulus
- s/p enema on 12/26 with BM, diet advanced
-follow up x-ray 12/27 with persistent large bowel obstruction
- appreciate GI
- continue senna BID, colace, Relistor
- Linzess started on 12/27
- Golytely for 12/28/24
- Per GI, therapeutic Gastrografin enema unable to be performed on 12/29/24
- Patient would like to avoid any surgery, and there is a high risk with anesthesia (essentially prohibitive for anything less than an emergency case)
- Neostigmine (second dose) ordered today (1st dose was on 12/31/24) -- with significant amount of flatus and liquid stool passed
Worsening Vision needing eyeglasses
-Patient reports this has worsened over the past few days, but he can see with the eyeglasses when reading material on his phone
-Spoke with both on-call air saw operator Dr. Prince Rodriguez and patient's air saw operator Dr. Booth: nothing to do as an inpatient
-Could be elevated blood sugars, shifts in myopia with blood sugars which can affect cataracts
-Dr. Booth last saw patient in September and vision was 20/40 in each eye. He is tentatively scheduled for surgery with Dr. 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
SOB - Mild hypoxia to 92%. No PE. Reports intermittent cough and CT suggest bronchitis. BNP 270 (morbid obesity)
- suspect SOB related to abdominal distention as well
- prn nebs
- cough meds
- doxycycline for acute bronchitis - day 03/11
Aflutter - new
Non-ischemic myocardial injury
- Risk factor modification (similar to that for AFib): treat obesity, possibly sleep apnea; minimize ETOH if applicable, increase exercise, etc
- Appreciate Cardiology
- Continue IV Heparin gtt
- TTE with new depressed EF (see below)
- Per Cardiology: Anesthesia would not favor sedation for JOHN; for now rate control only but no cardioversion. Once patient has been on anticoagulation for three weeks, add outpatient amiodarone and then it still in flutter or a
fib several weeks later, can cardiovert without JOHN, and that would need much less anesthesia.
- Eventually, when transitioning to oral anticoagulation, plan to start on Xarelto, not Eliquis (given expensive/cost reasons)
- Hold Metoprolol for now until we see how patient does with the addition of Neostigmine on 12/31/24 and on 01/01/25
Non-ischemic cardiomyopathy
HFrEF -- some of his HF/reduced EF is in part tachycardia induced
-EF declined to 20-25%; was 50-55% in 2019
-Holding beta deanna as above
-appreciate cardiology
-GLOVE WRAPPER Lisinopril held to allow room in BP
-Plan is to work towards GDMT once patient's GI issues improved and he is in sinus rhythm (SGLT2-I, MRA, HF BB, RAAS-I (ARNI/BOO-I/ARB), loop diuretic as needed
Chronic suboxone therapy
-continue for now
-Relistor as above/below
HTN
- Metoprolol
BPH
-continue tamsulosin
Renal lesion
Lymphadenopathy
New finding renal mass and debi-aortic lymphadenopathy
-discussing with Heme next steps; will also need Urology consult outpatient
-case discussed with Dr. Qiu on 12/27. LN present in 2011; patient should have outpatient follow up - no need for inpatient consult
-Patient will need outpatient referrals to Heme and Urology (Dr. Bone spoke with both consultants about CT findings).
DVT Prophylaxis: Heparin gtt
Code Status: Full Code
Anticipated Discharge: > 48 hours
Subjective/Interval History
-
Date of Service: January 01, 2025
Patient was seen and examined. Still distended and bloated.
Objective Data
-
Labs:
Laboratory Results
01/01/25 01/01/25
14:00 23:00
APTT Cancelled Pending
Vital Signs:
Vital Signs
Temp Pulse Resp BP Pulse Ox
97.8 F 125 23 100/85 92
01/01/25 16:00 01/01/25 18:30 01/01/25 18:30 01/01/25 18:00 01/01/25 15:48
I&O
12/31/24 01/01/25 01/02/25
06:59 06:59 06:59
Intake Total 500 / 500 258 / 258 430 / 430
Output Total 725 / 725 350 / 350
Balance 500 / 500 -467 / -467 80 / 80
[2025-01-01] MEDS: DEBROX EAR DROPS 1 DROP OTIC (21:03)
[2025-01-01] MEDS: LIPITOR 40 MG PO (21:04)
[2025-01-01 22:02] LABS: Glucose - Point of Care 129 mg/dl (70-99)
[2025-01-02] VITALS (11 sets, daily range): BP systolic 89–130; BP diastolic 56–96; BMI 42.3
--- NOTE | 2025-01-02 01:27 | PTCARENOTE ---
Addendum entered by Anjelica Collado RN 01/02/25 01:48:
[employer] CREW[employer]BER made aware
Original Note:
Pt HR becoming bradycardic into the 40's, remains in Aflutter. Pt in deep sleep easily arousable asymptomatic. When awake Pt HR returning to 90's.
[2025-01-02 02:32] LABS: APTT 80.9 Sec (23.4-35.0)
[2025-01-02] MEDS: LINZESS 290 MCG PO (05:58)
--- NOTE | 2025-01-02 07:34 | W.PN.HOSP.TC ---
Today's Communication/Plan
-
Discharge today
Assessment / Plan
Assessment / Plan
Physical Exam
General: No Apparent Distress
HEENT: Normocephalic
Respiratory: Clear to Auscultation Bilaterally
Cardiac: Regular Rhythm and S1/S2
GI: Other (distended)
Musculoskeletal: No Edema
Skin: Warm and Dry
Neuro: AAO x 3
Psych: Calm
Assessment/Plan
Patient is a 64-year-old with history of diabetes, hypertension, BPH, morbid obesity, ERASMO not on CPAP and chronic pain who presented to the emergency department with episodes of shortness of breath in the setting of approximately 4 months of
polyuria and polydipsia after stopping insulin for presumed normal hemoglobin A1c of 5.5. He is found to have hyperglycemia, significant distention of sigmoid colon, new renal mass, bronchitis, and new diagnosis of aflutter .
Chest CT
IMPRESSION: Suboptimal opacification of the pulmonary arteries, and respiratory motion artifact in the inferior lungs. No evidence for central pulmonary embolism. Limited evaluation of the segmental and subsegmental pulmonary arteries.
If there are persistent clinical symptoms, consideration for repeat CT angiography of the chest with pulmonary embolism protocol.
No evidence for thoracic aortic dissection or aneurysm.
Findings of bronchitis within both lower lungs, especially within the lower lobes. Linear atelectasis within both lower lungs, probably associated with bronchitis.
No significant pleural effusion and no significant pericardial effusion.
Coronary artery calcifications are present. Please correlate with symptoms of and risk factors for coronary artery disease, with further workup as clinically appropriate.
In the upper abdomen, distention of a loop of bowel within the upper abdomen which appears to be a loop of colon. There also appears to be slight thickening of the wall of this loop of distended colon. The patient is scheduled for a separate CT of
the abdomen and pelvis, which will be reported separately.
Abdomen/Pelvis CT
IMPRESSION: Significant distention of the sigmoid colon, extending into the upper abdomen, but without convincing evidence for sigmoid volvulus.
Consideration for attempt at decompression tube placement.
Unusual flipping of the cecum into the left pelvis, and new finding from previous examination of December 25, 2011. This is likely due to an elongated and tortuous:, Perhaps displaced by the distended sigmoid colon.
Moderate circumferential wall thickening involving the rectum and rectosigmoid junction, inferior to the distended portion of the sigmoid colon. There is also moderate amount of stool within this portion of the sigmoid colon. A component of
stercoral colitis in this region is possible.
No evidence for free intraperitoneal air.
Suggestion of a rounded mass arising from the lateral upper to mid right kidney, and raises concern for renal cell carcinoma. When clinically feasible, advise further evaluation with dedicated CT of the abdomen without and with contrast with
attention to the kidneys.
There are enlarged lymph nodes within the abdomen and pelvis as described, which raises concern for a neoplastic process, especially lymphoma and/or leukemia. As warranted, consideration for lymph node biopsy.
Abdomen/Pelvis CT
IMPRESSION:
1.8 cm solid enhancing right renal mass, representing neoplasm until proven otherwise.
Nonobstructing left renal calculi.
Continued gaseous distention of the sigmoid colon.
Mild colonic diverticulosis. No evidence of acute diverticulitis.
Mild distal periaortic adenopathy and left common iliac chain adenopathy.
TTE 12/26/24
CONCLUSIONS
Left ventricle is severely dilated.
Mild to moderate concentric left ventricular hypertrophy.
Severely reduced left ventricular systolic function.
Global hypokinesis.
Left ventricular ejection fraction is 20-25% by visual assessment.
Reduced right ventricular systolic function.
Enlarged right ventricular size.
Mild to moderate mitral regurgitation.
Mild to moderate tricuspid regurgitation.
Estimated pulmonary artery pressure of 30-35 mmHg.
Normal pericardium without effusion.
Compared to 2019 echocardiogram LV function is now moderate to severely
depressed
X-ray
IMPRESSION: Progressed large bowel distention concerning for colonic obstruction.
Moderate fecal material in the colon. Progressed.

Hyperglycemia
Uncontrolled DM with A1c 17.7%
- Patient has not seen a doctor in years
- Appreciate DM ESTHETIC DERMATOLOGIST consult
- New start Lantus and short acting insulin : on discharge, will do Glargine Insulin 5 units in the morning, and Aspart Insulin 2 units premeal to avoid hypoglycemia (patient has been getting more Insulin
here with some low sugars)
- Diabetic diet
- Follow-up with PCP
- Hypoglycemia and Insulin instructions
Abdominal distension
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
-chronic Suboxone therapy which is clearly worsening his colonic ileus
-s/p Flex Sig evening 12/25 - no e/o volvulus
- s/p enema on 12/26 with BM, diet advanced
-follow up x-ray 12/27 with persistent large bowel obstruction
- appreciate GI
- continue senna BID, Colace, Relistor every other day if needed
- Linzess 290 mcg started on 12/27
- Golytely for 12/28/24
- Per GI, therapeutic Gastrografin enema unable to be performed on 12/29/24
- Patient would like to avoid any surgery, and there is a high risk with anesthesia (essentially prohibitive for anything less than an emergency case)
- Neostigmine (second dose) ordered on 01/01/25, (1st dose was on 12/31/24) -- with significant amount of flatus and liquid stool passed on 01/01/25
- Per colorectal surgery, can do REGULAR DIABETIC/CARB-CONTROLLED DIET ON DISCHARGE
Worsening Vision needing eyeglasses
-Patient reports this has worsened over the past few days, but he can see with the eyeglasses when reading material on his phone
-Spoke with both on-call plodding machine operator Dr. Prince Rodriguez and patient's plodding machine operator Dr. Booth: nothing to do as an inpatient
-Could be elevated blood sugars, shifts in myopia with blood sugars which can affect cataracts
-Dr. Booth last saw patient in September and vision was 20/40 in each eye. He is tentatively scheduled for surgery with Dr. 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
SOB - Mild hypoxia to 92%. No PE. Reports intermittent cough and CT suggest bronchitis. BNP 270 (morbid obesity)
- suspect SOB related to abdominal distention as well
- prn nebs
- cough meds
- doxycycline completed
Aflutter - new
Non-ischemic myocardial injury
- Risk factor modification (similar to that for AFib): treat obesity, possibly sleep apnea; minimize ETOH if applicable, increase exercise, etc
- Appreciate Cardiology
- Continue IV Heparin gtt
- TTE with new depressed EF (see below)
- Per Cardiology: Anesthesia would not favor sedation for JOHN; for now rate control only but no cardioversion. Once patient has been on anticoagulation for three weeks, add outpatient amiodarone and then it still in flutter or a
fib several weeks later, can cardiovert without JOHN, and that would need much less anesthesia.
- Per cardiology communication via [place] Text on 01/02/25: Xarelto 20 mg one time daily and Toprol XL 50 mg one time daily
Non-ischemic cardiomyopathy
HFrEF -- some of his HF/reduced EF is in part tachycardia induced
-EF declined to 20-25%; was 50-55% in 2020
-Continue beta deanna
-appreciate cardiology
-RUG SETTER VELVET Lisinopril held to allow room in BP
-Plan is to work towards GDMT once patient's GI issues improved and he is in sinus rhythm (SGLT2-I, MRA, HF BB, RAAS-I (ARNI/BOO-I/ARB), loop diuretic as needed
Chronic suboxone therapy
-continue for now
-Relistor as above/below
HTN
- Metoprolol
BPH
-continue tamsulosin
Renal lesion
Lymphadenopathy
New finding renal mass and debi-aortic lymphadenopathy
-discussing with Heme next steps; will also need Urology consult outpatient
-case discussed with Dr. Qiu on 12/27. LN present in 2011; patient should have outpatient follow up - no need for inpatient consult
-Patient will need outpatient referrals to Heme and Urology (Dr. Bone spoke with both consultants about CT findings).
DVT Prophylaxis: Heparin gtt switched to Xarelto
Code Status: Full Code
Patient stated that he really wants to be discharged today. Okay to discharge him as per the other specialists involved in patient's case.
More than 30 minutes spent in discharge including
Final examination of the patient
Summarizing hospital stay
Instructions for continuing care to all relevant caregivers
Preparation of discharge records, prescriptions, and referral forms
Total time spent (in minutes): 45
Anticipated Discharge: Today
Subjective/Interval History
-
Date of Service: January 02, 2025
Pt requested medication for sleep. Melatonin ordered. Patient declined, wanted xanax instead.
Notified by RN that patient's HR dips into the 40's and then returns to 70-80's. Continued to monitor overnight.
Objective Data
-
Labs:
Laboratory Results
01/02/25 01/02/25 01/02/25
02:03 07:29 08:00
WBC Pending
Hgb Pending
Hct Pending
Plt Count Pending
APTT 80.9 H Pending
Sodium Pending
Potassium Pending
Chloride Pending
Carbon Dioxide Pending
BUN Pending
Creatinine Pending
Glucose Pending
Calcium Pending
Total Bilirubin Pending
AST Pending
ALT Pending
Alkaline Phosphatase Pending
Vital Signs:
Vital Signs
Temp Pulse Resp BP Pulse Ox
98.5 F 106 23 106/89 95
01/02/25 03:08 01/02/25 06:00 01/02/25 06:00 01/02/25 06:00 01/01/25 21:25
I&O
01/01/25 01/02/25 01/03/25
06:59 06:59 06:59
Intake Total 258 / 258 818 / 818
Output Total 725 / 725 725 / 725
Balance -467 / -467 93 / 93
--- NOTE | 2025-01-02 08:37 | PN.DE.MGMTRT ---
Insulin Management
- -
01/02/2025: Diabetes Management Follow Up:
Patient admitted with SOB with approximately 4 months of polyuria and polydipsia; found to have distention of sigmoid colon, new renal mass, possible bronchitis. PMH: T2DM, HTN, BPH, Morbid Obesity, ERASMO not on CPAP and chronic pain. A1C on admission
17.7%, Cr 0.8, eGFR > 60. Pt states 2 years ago he was taking insulin but his A1C was 5.5 so he stopped his insulin. At that time, he was taking 30 units Lantus @ hs w/NovoLog 18 units AC. Glucose was >600 on admission.
Patient is awake, alert, oriented, sitting up in chair, offers no complaints, able to discuss diabetes care plan.
01/01 AC NovoLog and HS Lantus insulin were stopped. Lantus AM dose was reduced to 20 units. FBG 122 this AM.
Diet has been advanced from low residue to 2000 teresa this AM.
Will resume low dose AC NovoLog 4 units. Change moderate corrective from q6 hours to AC.
Cont AM Lantus 20 units. Will closely follow glucose trend now that he is back on a diet, and further adjust insulin dose if necessary 01/01
Discussed with nurse.
Pt was seen by the Diabetes RN educator and was provided a new glucose monitor on 12/26 .
Diabetes History
- -
Type of Diabetes: 2 requiring insulin
Pre-Admission Diabetes Regimen
Lab Results
Hemoglobin A1c 17.7 % (4.0-5.6) H 12/25/24 07:05
Insulin Pump Settings
IP Diabetes Regimen
01/01/25 01/01/25 01/01/25
11:05 11:34 17:35
POC Glucose 106 H 109 H 107 H
01/01/25
21:51
POC Glucose 129 H
Meal type: Dinner
Patient Education
[2025-01-02] MEDS: HEPARIN 25000 UNITS/250 ML IV (08:40)
[2025-01-02] MEDS: LANTUS 0.2 UNITS SC (08:48)
[2025-01-02] MEDS: SENOKOT 17.2 MG PO (08:48)
[2025-01-02] MEDS: NOVOLOG FLEXPEN-MODERATE RESISTANCE SC (08:48)
[2025-01-02 08:49] LABS: Glucose - Point of Care 122 mg/dl (70-99)
[2025-01-02] MEDS: DEBROX EAR DROPS 5 DROP OTIC (08:51)
[2025-01-02] MEDS: DESENEX/MITRAZOL/ZEASORB 1 APPLIC TOPICAL (08:52)
[2025-01-02] MEDS: HYDROPHOR 1 APPLIC TOPICAL (08:53)
[2025-01-02 09:03] LABS: APTT 87.3 Sec (23.4-35.0)
[2025-01-02 09:13] LABS: % Basophils 0.4 % (0-2); % Eosinophils 2.1 % (0-6); % Immature Granulocytes 0.6 % (0-0.5); % Lymphocytes 24.6 % (20.5-51.1); % Neutrophils 64.3 % (42.2-75.2); Absolute Eosinophils 0.2 10^3/uL (0-0.7); Absolute Immature Granulocytes 0.1 10^3/uL (0-0.05); Absolute Monocytes 0.6 10^3/uL (0.1-0.6); Absolute Neutrophils 5.1 10^3/uL (1.4-6.5); Hematocrit 43.9 % (39.0-52.0); Hemoglobin 14.3 g/dL (13.0-18.0); Mean Corp Hgb Conc. 32.6 g/dL (33.0-37.0); Mean Corpuscular Hgb 27.8 pg (27.0-31.0); Mean Corpuscular Volume 85.4 fL (80.0-94.0); Mean Platelet Volume 10.3 fL (7.4-10.4); Nucleated Red Blood Cells % 0 % (-); Platelet Count 154 10^3/uL (130-400); Red Blood Cell Count 5.14 10^6/uL (4.70-6.10); Red Cell Dist. Width 13.5 % (11.5-14.5)
[2025-01-02 09:58] LABS: ALT (SGPT) 84 U/L (0-50); AST (SGOT) 44 U/L (17-59); Albumin 3.6 g/dl (3.5-5.0); Alkaline Phosphatase 181 U/L (38-126); Blood Urea Nitrogen 11 mg/dl (9-20); Calcium 9.4 mg/dl (8.4-10.2); Carbon Dioxide 24 mmol/L (22-30); Chloride 101 mmol/L (98-107); Estimated Creatinine Clearance > 125 ml/min; Glucose 117 mg/dl (70-99); Magnesium 1.9 mg/dl (1.6-2.3); Potassium 4.2 mmol/L (3.5-5.1); Sodium 134 mmol/L (135-145); Total Bilirubin 1.1 mg/dl (0.2-1.3); Total Protein 6.4 g/dl (6.3-8.2); eGFR > 60.00
--- NOTE | 2025-01-02 11:13 | W.PN.CRS1 ---
Today's Communication / Plan
-
no plans for OR
please contact if any surgical issues arise
Assessment/Plan
-
64-year-old male with PMH of DM (stopped taking his insulin), HTN who presents for increasing abdominal bloating since September leading to worsening dyspnea over the last few days causing him to come to the ED; he denies any abdominal pain, nausea
or vomiting; his last BM was yesterday and last flatus was yesterday; in the ED, WBC 9.0, CTAP showing massively distended sigmoid with tapering around the rectosigmoid junction as well as thickening of the rectum and rectosigmoid, no convincing
evidence for sigmoid volvulus, ascending colon and cecum displaced to the left side of the abdomen (CTAP from 2011 showing a ascending colon in usual anatomic position); personally reviewed and interpreted, there is significant tapering in diameter
of the sigmoid at the rectosigmoid junction, raising my concern for sigmoid volvulus versus other cause of lead point, such as stricture or mass
-No plans for surgery given response to neostigmine yesterday
-Advance to a regular DM diet
-Continue Relistor, Colace PRN, Senna BID per GI.
-Will sign off, please contact us if any issues arise
Subjective Data
Subjective Data
Date of Service: January 02, 2025
Patient states he has no pain. He had multiple bowel movements. He denies nausea or vomiting.
Objective Data
-
Vital Signs
Temp Pulse Resp BP Pulse Ox
98.5 F 97 14 120/87 95
01/02/25 03:08 01/02/25 10:00 01/02/25 10:00 01/02/25 10:00 01/01/25 21:25
Intake & Output
01/01/25 01/02/25 01/03/25
06:59 06:59 06:59
Intake Total 258 / 258 818 / 818
Output Total 725 / 725 725 / 725
Balance -467 / -467 /
Intake:
Oral fluids 50 / 50 218 / 218
IV fluids (Total) 600 / 600
Heparin 600 / 600
Output:
Urine, Voided 725 / 725 725 / 725
Other:
Number of approximated MODERATE 2
amounts of urine
Lab Results
01/02/25 08:33
01/02/25 08:33
Physical Exam
-
General: No Acute Distress and AOx3
Abdomen: Soft, Distended (mild (much improved)) and Non Tender
Skin: Warm and Dry
[2025-01-02] MEDS: NOVOLOG FLEXPEN-MODERATE RESISTANCE 1 UNITS SC (12:15)
[2025-01-02] MEDS: NOVOLOG FLEXPEN 4 UNITS SC (12:16)
[2025-01-02] MEDS: SUBUTEX 4 MG SL (12:17)
[2025-01-02 12:24] LABS: Glucose - Point of Care 186 mg/dl (70-99)
--- NOTE | 2025-01-02 13:36 | CM ---
CM following re: discharge planning.
Reviewed pt's chart, met with pt.
Per Colorectal surgery, no plan for OR , continue supportive care.
PT and OT evaluations noted - pt likely has no skilled PT/OT needs.
Pt resides and two adult children (currently in College) in a multiple story home and pt is independent in all areas [employer].
D/C plan: home with no needs. Family to transport at discharge.
CM will follow with discharge plan updates as hospitalization progresses
--- NOTE | 2025-01-02 16:23 | PTCARENOTE ---
Addendum entered by Jasper Cornelius RN 01/02/25 17:15:
Per attending, ok to discharge patient at 17:30 (one hour after meds given)- pt in agreement.
Original Note:
Plan discussed with cards Dr. Phillip and attending Dr. Gasca. PO Xarelto and Metoprolol ordered and given, Hep gtt dc'd. Pt will be dc'd per attending, pt updated and anxious to go home.
[2025-01-02] MEDS: TOPROL XL 50 MG PO (16:26)
[2025-01-02] MEDS: XARELTO 20 MG PO (16:27)
--- NOTE | 2025-01-02 16:39 | W.PN.CD ---
Today's Communication / Plan
-
OK for home
From cardiac standpoint:
- Metoprolol ER 50 mg daily and we will up-titrate for HR and HF control.
- Xarelto 20 mg daily (free for him/ works at [employer]
- Will add GDMT for his cardiomyopathy/HF over time
- Watch for need of Lasix
Plan for flutter for now is:
- just rate control
- move to Xarelto when OK with GI/Colorectal Surgery
- Once on Xarelto for 2-3 weeks will add Amio
- plan cardioversion w/o JOHN 1 month into Amio if still in flutter
Still will need work up very concerning CT findings concerning for renal cell cancer and of lymphadenopathy concerning for lymphoma
Impression / Plan
-
GI: Massive segmental distention of the sigmoid associated with thickening of the rectosigmoid and rectum
-Colorectal surgery and GI involved
-got neostigmine, no cardiac complications, had good BM
Atrial flutter, likely typical
- HR OK for now in low 100s at rest
- On IV heparin => for PO Xarelto
- Too high risk for JOHN
- Plan just rate control, move to Xarelto (most affordable option for him) when OK with GI/Colorectal Surgery. Once on Xarelto for 2-3 weeks will add Amio and plan cardioversion w/o JOHN 1 month into Amio if still in flutter
- Risk factor modification as for AFib is appropriate: treat obesity, any sleep apnea; minimize ETOH, increase exercise, etc
HFrEF,
- EF 20-25% this admit
- LVEF in 2020 was 50-55% by echo. I looked at those images and while TDS I agree EF look preserved
- But by nuclear LV dilated and LVEF 24% in 12/2020
- Cath in 2020 no LV gram but LVEDP was elevated
- LVEF was 20% in 2012 with PCWP 32, RA 24, PA 68/34 and max cor lesion 30% mid Diag and luminals elsewhere. Cath 2020 no obstructive CAD
- we can hope that some of his HF/reduced EF is in part tachycardia induced
- Work on GDMT once GI issues improved (SGLT2-I, MRA, HF BB, RAAS-I (ARNI/BOO-I/ARB), loop diuretic as needed
- May need some Lasix if dyspnea develops -currently no lasix needed
DM2, hgb A1C 17.7, glucose on arrival in 600's
Abnormal troponin from acute, non-ischemic myocardial injury in setting of acute illnesses as above
Morbid obesity, BMI 43
Lymphedema: legs wrapped
Renal mass, right, concern for renal Cell CA seen on CT this admit- plan per primary
Enlarged lymph nodes within the abdomen and pelvis => concern for neoplastic process, especially lymphoma and/or leukemia. seen on CT this admit- plan per primary
HTN
Depression
Sleep apnea
Non-obstructive CAD
Subjective: Eager for home. No CP/palps/dyspnea
Data:
Abdomen/Pelvis CT: Significant distention of the sigmoid colon, extending into the upper abdomen, but without convincing evidence for sigmoid volvulus. Unusual flipping of the cecum into the left pelvis. This is likely due to an elongated and
tortuous colon, perhaps displaced by the distended sigmoid colon. Moderate circumferential wall thickening involving the rectum and rectosigmoid junction, inferior to the distended portion of the sigmoid colon. There is also moderate amount of stool
within this portion of the sigmoid colon. A component of stercoral colitis in this region is possible. No evidence for free intraperitoneal air. Suggestion of a rounded mass arising from the lateral upper to mid right kidney, and raises concern for
renal cell carcinoma. There are enlarged lymph nodes within the abdomen and pelvis as described, which raises concern for a neoplastic process, especially lymphoma and/or leukemia.
Chest CT 12/24/24: Suboptimal opacification of the pulmonary arteries, and respiratory motion artifact in the inferior lungs. No evidence for central pulmonary embolism. Limited evaluation of the segmental and subsegmental pulmonary arteries. If
there are persistent clinical symptoms, consideration for repeat CT angiography of the chest with pulmonary embolism protocol. No evidence for thoracic aortic dissection or aneurysm. Findings of bronchitis within both lower lungs, especially within
the lower lobes. Linear atelectasis within both lower lungs, probably associated with bronchitis.No significant pleural effusion and no significant pericardial effusion. Coronary artery calcifications are present. In the upper abdomen, distention of
a loop of bowel within the upper abdomen which appears to be a loop of colon. There also appears to be slight thickening of the wall of this loop of distended colon.
Echo:CONCLUSIONS
Left ventricle is severely dilated.
Mild to moderate concentric left ventricular hypertrophy.
Severely reduced left ventricular systolic function.
Global hypokinesis.
Left ventricular ejection fraction is 20-25% by visual assessment.
Reduced right ventricular systolic function.
Enlarged right ventricular size.
Mild to moderate mitral regurgitation.
Mild to moderate tricuspid regurgitation.
Estimated pulmonary artery pressure of 30-35 mmHg.
Normal pericardium without effusion.
Compared to 2019 echocardiogram LV function is now moderate to severely
depressed
Cath 12/2020:
CONCLUSIONS
1: No obstructive coronary artery disease. False positive nuclear stress test.
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
3: Arteria lusoria.
4. LVEDP 24
Echo 09/2020:
CONCLUSIONS
Normal left ventricular size and systolic function. No regional wall motion
abnormalities are seen. LV ejection fraction is 50-55% by visual assessment.
Moderate concentric left ventricular hypertrophy.
Mildly dilated left atrium.
The aortic root is mildly dilated-3.8 cm at sinus of Valsalva.
Since echocardiogram June 2017, there is no significant change.
Physical Exam
Vital Signs/Labs
Vital Signs
Temp Pulse Resp BP Pulse Ox
97.8 F 126 21 104/75 96
01/02/25 15:00 01/02/25 16:26 01/02/25 16:01 01/02/25 16:26 01/02/25 09:00
01/01/25 01/02/25 01/03/25
06:59 06:59 06:59
Actual Weight 152 kg 149.3 kg
01/02/25 08:33
01/02/25 08:33
PT 14.8 Sec (11.4-14.6) H 12/31/24 04:39
INR 1.13 12/31/24 04:39
APTT 87.3 Sec (23.4-35.0) H 01/02/25 08:33
Magnesium 1.9 mg/dl (1.6-2.3) 01/02/25 08:33
Triglycerides 389 mg/dl (10-149) H 12/25/24 07:05
LDL Cholesterol, Calc 91 mg/dl 12/25/24 07:05
VLDL Cholesterol, Calc 77 mg/dl (0-30) H 12/25/24 07:05
HDL Cholesterol 51 mg/dl 12/25/24 07:05
12/24/24
20:48
Idi-C-Liobzgfchin Pept 270
Physical Exam
Constitutional: No acute distress
EENT: Anicteric
Cardiovascular: Rhythm/rate is irregular and Pedal edema present (tr)
Respiratory: Respiratory effort normal and Lungs clear to auscul.
GI: Soft and Distention present (but less)
Neuro/Psych: AO x 3
Data Reviewed
-
Date of Service: January 02, 2025
--- NOTE | 2025-01-02 17:02 | W.DCSUMMARY ---
Discharge Summary
Discharge Data
Date of Admission: 12/25/24
Date of Discharge: 01/02/25
Total time spent discharging patient (in min): 45
-
Pending Results: No
Hospital Course
64-year-old male with past medical history significant for diabetes on insulin, chronic pain, BPH, hypertension obstructive sleep apnea noncompliant with CPAP presented to the emergency department with acute episode of shortness of breath. Patient
was admitted with hyperglycemia with mild hyperosmolar syndrome and abdominal distension. Gastroenterology was consulted. CT Imaging was performed, CT Chest was negative for central PE, CT of the abdomen/pelvis showed distention of sigmoid colon
without volvulus with consideration for decompression tube; also noted flipping of cecum with elongated and tortuous with possible displacement of distended sigmoid; also moderate wall thickening of rectosigmoid inferior to distended sigmoid with
moderate stool in portion of sigmoid and possible stercoral colitis; mass lateral to upper to mid right kidney concern for renal cell cancer with need for further with and without Ct imaging and enlarged lymph nodes with concern for neoplastic
process - lymphoma or leukemia. Colorectal surgery was consulted and they recommended colonoscopic decompression with potential for placement of a colonoscopic decompression tube for possible sigmoid volvulus. On December 25, 2024, patient had
flexible sigmoidoscopy, findings according to colorectal surgeon included lots of stool in rectosigmoid; sigmoid was distended but visualized mucosa pink and viable; no spiral or 'birds beak' seen to indicate obstruction/active volvulus. Patient was
noted to have colonic ileus with possible pseudoobstruction and Putney's, and he was started on an aggressive bowel regimen. Patient received Linzess and Relistor.
Cardiology was consulted for atrial flutter. Echocardiogram was done which showed severely dilated left ventricle; Mild to moderate concentric left ventricular hypertrophy; Severely reduced left ventricular systolic function; Global hypokinesis;
Left ventricular ejection fraction is 20-25% by visual assessment; Reduced right ventricular systolic function; Enlarged right ventricular size; Mild to moderate mitral regurgitation; Mild to moderate tricuspid regurgitation; Estimated pulmonary
artery pressure of 30-35 mmHg; Normal pericardium without effusion; Compared to 2019 echocardiogram LV function is now moderate to severely depressed.
Surgery was considered given patient's persistent abdominal distension, but he was determined to be very high risk of morbidity and mortality for major abdominal surgery. Cardiology also recommended no JOHN/cardioversion given the high aforementioned
risk with anesthesia.
Patient was placed on Heparin Drip for anticoagulation for atrial flutter. The goal for now was rate control. The plan from cardiology standpoint was that once patient was on Xarelto for 2-3 weeks, then the plan would be to add Amiodarone and plan
for cardioversion w/o JOHN 1 month into Amiodarone if still in atrial flutter.
Because of his uncontrolled Diabetes Mellitus, patient was started on Insulin.
Patient was transferred due to ICU for neostigmine administration (concern for bradycardia and hypotension). Patient's beta deanna was held to allow for this possible side effect from neostigmine. Given he had no bowel movement, he was given
another dose of neostigmine the next day, with significant amount of flatus and liquid stool. Patient was stable for discharge.
Patient would need work up of his CT findings concerning for renal cell cancer and of lymphadenopathy concerning for lymphoma.
Discharge Plan
-
Patient Disposition: Home (Routine Discharge)
Discharge Diagnosis/Procedures: Renal lesion -- concerning for RENAL CELL CANCER (needs to be seen by outpatient oncologist within 1 to 2 weeks)
Lymphadenopathy
New finding renal mass and debi-aortic lymphadenopathy
Hyperglycemia
Uncontrolled Diabetes Mellitus with A1c 17.7%
Abdominal distension
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
Shortness of Breath suspected to be contributed from abdominal distension
Chronic suboxone therapy
Hypertension
Benign Prostatic Hyperplasia
Atrial flutter
Heart Failure with Reduced Ejection Fraction
Depression
Sleep apnea
Non-obstructive coronary artery disease
Morbid obesity, BMI 43
Lymphedema
Chest CT Imaging Results (as per radiologist's report)
'Suboptimal opacification of the pulmonary arteries, and respiratory motion artifact in the inferior lungs. No evidence for central pulmonary embolism. Limited evaluation of the segmental and subsegmental pulmonary arteries. If there are persistent
clinical symptoms, consideration for repeat CT angiography of the chest with pulmonary embolism protocol. No evidence for thoracic aortic dissection or aneurysm. Findings of bronchitis within both lower lungs, especially within the lower lobes.
Linear atelectasis within both lower lungs, probably associated with bronchitis. No significant pleural effusion and no significant pericardial effusion. Coronary artery calcifications are present. Please correlate with symptoms of and risk factors
for coronary artery disease, with further workup as clinically appropriate. In the upper abdomen, distention of a loop of bowel within the upper abdomen which appears to be a loop of colon. There also appears to be slight thickening of the wall of
this loop of distended colon. The patient is scheduled for a separate CT of the abdomen and pelvis, which will be reported separately.'
Abdomen/Pelvis CT (as per radiologist's report)
'Significant distention of the sigmoid colon, extending into the upper abdomen, but without convincing evidence for sigmoid volvulus.
Consideration for attempt at decompression tube placement. Unusual flipping of the cecum into the left pelvis, and new finding from previous examination of December 25, 2011. This is likely due to an elongated and tortuous:, Perhaps displaced by the
distended sigmoid colon.Moderate circumferential wall thickening involving the rectum and rectosigmoid junction, inferior to the distended portion of the sigmoid colon. There is also moderate amount of stool within this portion of the sigmoid colon.
A component of stercoral colitis in this region is possible. No evidence for free intraperitoneal air. Suggestion of a rounded mass arising from the lateral upper to mid right kidney, and raises concern for renal cell carcinoma. When clinically
feasible, advise further evaluation with dedicated CT of the abdomen without and with contrast with attention to the kidneys. There are enlarged lymph nodes within the abdomen and pelvis as described, which raises concern for a neoplastic process,
especially lymphoma and/or leukemia. As warranted, consideration for lymph node biopsy.'
Abdomen CT (as per radiologist's report)
'1.8 cm solid enhancing right renal mass, representing neoplasm until proven otherwise. Nonobstructing left renal calculi. Continued gaseous distention of the sigmoid colon. Mild colonic diverticulosis. No evidence of acute diverticulitis. Mild
distal periaortic adenopathy and left common iliac chain adenopathy.'
Chest X-Ray (as per radiologist's report)
'Left basilar opacification, likely combination of small left effusion and adjacent atelectasis/consolidation.'
Echocardiogram Results (as per channeler's report)
'CONCLUSIONS
Left ventricle is severely dilated.
Mild to moderate concentric left ventricular hypertrophy.
Severely reduced left ventricular systolic function.
Global hypokinesis.
Left ventricular ejection fraction is 20-25% by visual assessment.
Reduced right ventricular systolic function.
Enlarged right ventricular size.
Mild to moderate mitral regurgitation.
Mild to moderate tricuspid regurgitation.
Estimated pulmonary artery pressure of 30-35 mmHg.
Normal pericardium without effusion.
Compared to 2019 echocardiogram LV function is now moderate to severely
depressed'
Condition: Fair
Diet: Low Fat, Low Cholesterol, Diabetic, Carb Controlled and Restrict fluids to 64 oz
Activity: As tolerated
Specialty Instructions: Weigh Daily- Call MD for wt gain/loss 3 lbs overnight/5 lbs in 1 week
Activity Restrictions/Additional Instructions:
CALL [facility] ON SUNDAY JANUARY 05, 2025 TO FIND OUT IF YOU NEED ADDITIONAL LAXATIVE/BOWEL REGIMEN MEDICATIONS (e.g. Relistor, Colace)
Insulin will need to be adjusted outpatient with PCP with close follow-up.
Wound Care Instructions
R lateral calf ulcers-clean with saline or Vashe wound cleanser, Aquaphor ointment to dry intact skin Le's, adaptic, alginate, ABD Pad, Kerlix wrap daily and as needed for drainage.
L lateral calf and L medial ankle dry hyperkeratotic area-clean with saline, dry gauze dressing under Yonatan wraps daily (add adaptic as needed for adherent dressing).
Miconazole powder to coccyx crease, affected areas twice a day.
Resume knee high compression wraps and compression pumps as tolerated.
Elevate heels off bed with pillow/s
Pressure redistributing chair cushion (i.e. Air chair cushion).
Follow up at wound care center call for an appointment.
Instructions: Type 2 diabetes, Managing blood sugar in children with diabetes, Low blood sugar in people with diabetes, Dealing with Low Blood Sugar from the Drugs You Take, Type 2 diabetes - Discharge instructions
Referrals:
Elder Qiu DO [Active] - in one to two weeks (Suspected malignancy on hospital CT Imaging -- needs further evaluation/work-up)
Shanique Harrington MD [Active] - in one to two weeks (Hospital follow-up for ileus/constipation)
Shankar Mena MD [Family Provider] -
Mert Gleason Jr., MD [Active] - in one to two weeks (follow up to discuss Renal Mass )
Feliz Phillip MD [Active] - 01/09/25 4:00 pm
Additional Discharge Medication Instructions: Metoprolol Succinate has been increased to 50 mg daily.
Linzess, Sennosides, Xarelto, Insulin Glargine and Insulin Aspart are new medications.
Prescriptions:
New
(DME) blood-glucose meter [OneTouch Verio Flex meter] Misc
Qty: 1 0RF
Rx Instructions:
Pt testing 4 times a day
(DME) OneTouch Verio test strips Strip
Qty: 120 0RF
Rx Instructions:
Pt testing 4 times a day
(DME) lancets [Onetouch Delica Safety Lancet] 30 gauge Misc
Qty: 120 0RF
Rx Instructions:
Pt testing 4 times a day
Linzess 290 mcg Capsule
290 mcg PO DAILY @ 0600 Qty: 30 0RF
sennosides [Gia-alecia] 8.6 mg Tablet
17.2 mg PO BID Qty: 60 1RF
metoprolol succinate 50 mg Tablet Extended Release 24 Hr
50 mg PO DAILY Qty: 30 1RF
Rx Instructions:
First dose on January 03, 2025
Xarelto 20 mg Tablet
20 mg PO QPM Qty: 30 1RF
Rx Instructions:
First dose on January 03, 2025
insulin aspart U-100 [Novolog FlexPen U-100 Insulin] 100 unit/mL (3 mL) Insulin Pen
2 unit SC AC Qty: 5 0RF
insulin glargine [Lantus Solostar U-100 Insulin] 100 unit/mL (3 mL) Insulin Pen
5 unit SC DAILY Qty: 5 0RF
Rx Instructions:
Daily in the morning
(DME) pen needle, diabetic [Pen Needle] 32 gauge x 5/32' needle
See Rx Instructions .Route Qty: 100 1RF
Rx Instructions:
As directed
Continued
lidocaine 4 % Adhesive Patch,Medicated
1 patch TOPICAL BID
zinc sulfate 50 mg zinc (220 mg) Tablet
50 mg PO DAILY
calcium carbonate 500 mg calcium (1,250 mg) Tablet
500 mg PO DAILY
tamsulosin 0.4 mg Capsule
0.4 mg PO DAILYPRN PRN (Reason: bloating)
buprenorphine-naloxone [Suboxone] 4-1 mg Film
1 film BUCCAL NOON
buprenorphine-naloxone [Suboxone] 4-1 mg Film
0.5 film BUCCAL HSPRN PRN (Reason: opioid dependence)
magnesium oxide 400 mg magnesium Tablet
400 mg PO DAILY
atorvastatin 40 MG tablet
40 mg PO HS
Discontinued
metoprolol succinate 25 mg Tablet Extended Release 24 Hr
12.5 mg PO NOON
lisinopril 2.5 mg Tablet
2.5 mg PO NOON
Discharge Orders:
Discharge Patient (As Directed); Ordered 01/02/25
Ordered By: Kirby Gasca
Discharge Date and Time
Discharge Date/Time: 01/02/25 18:09
Print Language: BENGALI
--- NOTE | 2025-01-02 19:09 | PTCARENOTE ---
Pt wheeled to entrance with daughter accompanying by this RN, discharged 18:35.
== END 2025-01-02 18:09 | disposition home or self-care (01) | DRG 687 ==
LOC: ICU 11:23
PROVIDERS: Emergency Medicine; Internal Medicine; Internal Medicine Cardiovascular Disease; Nurse Practitioner Family; Student in an Organized Health Care Education/Training Program; Surgery; ADMITTING PHYSICIAN Internal Medicine; ATTENDING PHYSICIAN Hospitalist; CONSULT PHYSICIAN Internal Medicine Cardiovascular Disease; CONSULT PHYSICIAN Internal Medicine Critical Care Medicine; CONSULT PHYSICIAN Internal Medicine Gastroenterology; CONSULT PHYSICIAN Surgery; EMERGENCY PHYSICIAN Student in an Organized Health Care Education/Training Program; FAMILY PHYSICIAN Internal Medicine
PROC: 0DJD8ZZ Inspection of Lower Intestinal Tract, Via Natural or Artificial Opening Endoscopic (ICD-10-PCS; 2024-12-25)
DX: C64.1 Malignant neoplasm of right kidney, except renal pelvis (principal); F11.20 Opioid dependence, uncomplicated; K56.7 Ileus, unspecified; I48.92 Unspecified atrial flutter; Z68.41 Body mass index [BMI] 40.0-44.9, adult; J98.11 Atelectasis; I50.22 Chronic systolic (congestive) heart failure; I5A Non-ischemic myocardial injury (non-traumatic); I42.8 Other cardiomyopathies; K59.39 Other megacolon; E11.65 Type 2 diabetes mellitus with hyperglycemia; K59.81 Ogilvie syndrome; K59.03 Drug induced constipation; T40.2X5A Adverse effect of other opioids, initial encounter; Y92.9 Unspecified place or not applicable; K57.30 Diverticulosis of large intestine without perforation or abscess without bleeding; I11.0 Hypertensive heart disease with heart failure; G89.4 Chronic pain syndrome; N40.0 Benign prostatic hyperplasia without lower urinary tract symptoms; E66.01 Morbid (severe) obesity due to excess calories; G47.33 Obstructive sleep apnea (adult) (pediatric); I89.0 Lymphedema, not elsewhere classified; M79.89 Other specified soft tissue disorders; N28.89 Other specified disorders of kidney and ureter; J20.9 Acute bronchitis, unspecified; E78.00 Pure hypercholesterolemia, unspecified; M19.90 Unspecified osteoarthritis, unspecified site; K63.89 Other specified diseases of intestine; I87.2 Venous insufficiency (chronic) (peripheral); D64.9 Anemia, unspecified; I08.1 Rheumatic disorders of both mitral and tricuspid valves; N20.0 Calculus of kidney; I25.10 Atherosclerotic heart disease of native coronary artery without angina pectoris; R13.10 Dysphagia, unspecified; I95.9 Hypotension, unspecified; F32.A Depression, unspecified; Z96.651 Presence of right artificial knee joint; Z96.643 Presence of artificial hip joint, bilateral; Z91.199 Patient's noncompliance with other medical treatment and regimen due to unspecified reason; Z11.52 Encounter for screening for COVID-19; Z82.49 Family history of ischemic heart disease and other diseases of the circulatory system
CPT/HCPCS: 71045; 71275; 74022; 74170; 74177; 74270; 80048; 80053; 80061; 82248; 82947; 82962; 83036; 83735; 83880; 84100; 84443; 84484; 85025; 85027; 85610; 85730; 87070; 87811; 93005; 93306; 96374; 97162; 99285; Q9950; Q9967

== ENCOUNTER → 2025-01-20 12:45 | Outpatient (REF) | payer OTHER, SELFPAY | LOC: WOUND 12:45 | PROVIDERS: ATTENDING PHYSICIAN Surgery; FAMILY PHYSICIAN Internal Medicine | DX: I87.311 Chronic venous hypertension (idiopathic) with ulcer of right lower extremity (principal); L97.312 Non-pressure chronic ulcer of right ankle with fat layer exposed; L97.212 Non-pressure chronic ulcer of right calf with fat layer exposed; I87.2 Venous insufficiency (chronic) (peripheral); C76.2 Malignant neoplasm of abdomen | CPT/HCPCS: 29581; 99213 ==

== ENCOUNTER → 2025-01-27 14:31 | Outpatient (REF) | payer OTHER, SELFPAY | LOC: WOUND 14:31 | PROVIDERS: ATTENDING PHYSICIAN Surgery; FAMILY PHYSICIAN Internal Medicine | DX: I87.311 Chronic venous hypertension (idiopathic) with ulcer of right lower extremity (principal); L97.312 Non-pressure chronic ulcer of right ankle with fat layer exposed; L97.212 Non-pressure chronic ulcer of right calf with fat layer exposed; I87.2 Venous insufficiency (chronic) (peripheral); C76.2 Malignant neoplasm of abdomen | CPT/HCPCS: 11042 ==

== ENCOUNTER → 2025-02-02 07:34 | Day surgery (SDC) | payer OTHER, SELFPAY ==
--- NOTE | 2025-02-02 11:47 | ITS.CL.IMPLP ---
Addendum entered and electronically signed by Feliz Phillip MD 02/02/25 11:56:
ERROR. THIS MONITOR DID NOT GO IN TO THIS PATIENT.
THIS PATIENT DID NOT HAVE A LOOP MONITOR IMPLANTED.
Correct procedure today was a CARDIOVERSION from atrial flutter to NSR.
Correct PCP is Colby Mena MD and Adult Crossing Guard Feliz Phillip MD.
Original Note:
Technical Sme - Implant Loop
Implant Loop
Procedure Report:
Date of Procedure: February 02, 2025.
Procedure: Insertable Loop Recorder Implant.
Indication: Atrial fibrillation monitoring.
Performing physician: Feliz Phillip MD, [facility].
Implant: [employer]; Reveal LINQOII; Model# [id number]; Serial# [id number].
Technique: The patient was prepped and draped in the usual fashion. A time-out was performed. No intravenous sedation was administered. Local anesthetic was applied to the left pre-pectoral subcutaneous tissue. Using the insertion kit an incision
was made left of the midline in the fourth intercostal space and the device was implanted subcutaneously and directed towards the nipple. Hemostasis was excellent. The skin was closed with steri-strips. The estimated blood loss was less than 0.5 ml.
There were no complications. No fluoroscopy. R waves measured 0.4 mV and P waves were visible.
Final Programming: Detections: Afib, tachy at 160 bpm, baldemar at 30 bpm, pause at 3 sec.
Conclusion: Uncomplicated insertable loop implant.
Recommendation: Routine post-insertable loop care. The device is MRI conditional without a waiting period and up to 3 Reba.
cc: Mandeep Tarango MD, PhD and Marty Morales MD.
--- NOTE | 2025-02-02 11:56 | ITS.CL.CARDI ---
Electric Relay Tester - Cardioversion
Cardioversion
Procedure Report:
Date of Procedure: February 02, 2025.
Procedure: Cardioversion.
Indication: Symptomatic typical atrial flutter.
Performing Physician: Feliz Phillip MD
Technique: The patient was brought to the holding area. Signed informed consent was obtained. A time out was called and performed. The patient was anesthetized by the anesthesia service. Anticoagulation status was reviewed and was appropriate.
Defibrillation pads were placed anteriorly and posteriorly. A 100 J synchronized biphasic shock resulted in atrial fibrillation. A 360 J synchronized biphasic shock restored normal sinus rhythm without significant bradycardia. There were no
complications.
Conclusion: Uncomplicated cardioversion from typical atrial flutter to sinus rhythm.
Recommendation: Routine post cardioversion care. Continue long term acute care registered nurse anticoagulation.
cc: Colby Mena MD.
== END ==
LOC: CATH 07:34
PROVIDERS: ATTENDING PHYSICIAN Internal Medicine Cardiovascular Disease; FAMILY PHYSICIAN Internal Medicine
DX: I48.3 Typical atrial flutter (principal); I08.1 Rheumatic disorders of both mitral and tricuspid valves; I11.0 Hypertensive heart disease with heart failure; I50.22 Chronic systolic (congestive) heart failure; E11.8 Type 2 diabetes mellitus with unspecified complications; G47.33 Obstructive sleep apnea (adult) (pediatric); E66.01 Morbid (severe) obesity due to excess calories; Z68.41 Body mass index [BMI] 40.0-44.9, adult; Z79.4 Long term (current) use of insulin; Z79.01 Long term (current) use of anticoagulants
CPT/HCPCS: 92960; 93005

== ENCOUNTER → 2025-02-03 14:04 | Outpatient (REF) | payer OTHER, SELFPAY | LOC: WOUND 14:04 | PROVIDERS: ATTENDING PHYSICIAN Surgery; FAMILY PHYSICIAN Internal Medicine | DX: I87.311 Chronic venous hypertension (idiopathic) with ulcer of right lower extremity (principal); L97.312 Non-pressure chronic ulcer of right ankle with fat layer exposed; L97.212 Non-pressure chronic ulcer of right calf with fat layer exposed; I87.2 Venous insufficiency (chronic) (peripheral); C76.2 Malignant neoplasm of abdomen | CPT/HCPCS: 11042; 11045 ==

== ENCOUNTER → 2025-02-10 15:03 | Outpatient (REF) | payer OTHER, SELFPAY | LOC: WOUND 15:03 | PROVIDERS: ATTENDING PHYSICIAN Surgery; FAMILY PHYSICIAN Internal Medicine | DX: I87.311 Chronic venous hypertension (idiopathic) with ulcer of right lower extremity (principal); L97.312 Non-pressure chronic ulcer of right ankle with fat layer exposed; L97.212 Non-pressure chronic ulcer of right calf with fat layer exposed; I87.2 Venous insufficiency (chronic) (peripheral); C76.2 Malignant neoplasm of abdomen | CPT/HCPCS: 11042 ==

== ENCOUNTER → 2025-02-17 15:06 | Outpatient (REF) | payer OTHER, SELFPAY | LOC: WOUND 15:06 | PROVIDERS: ATTENDING PHYSICIAN Surgery; FAMILY PHYSICIAN Internal Medicine | DX: I87.311 Chronic venous hypertension (idiopathic) with ulcer of right lower extremity (principal); L97.312 Non-pressure chronic ulcer of right ankle with fat layer exposed; L97.212 Non-pressure chronic ulcer of right calf with fat layer exposed; I87.2 Venous insufficiency (chronic) (peripheral); C76.2 Malignant neoplasm of abdomen | CPT/HCPCS: 11042 ==

== ENCOUNTER → 2025-02-26 14:35 | Outpatient (REF) | payer OTHER, SELFPAY | LOC: WOUND 14:35 | PROVIDERS: ATTENDING PHYSICIAN Surgery; FAMILY PHYSICIAN Internal Medicine | DX: I87.313 Chronic venous hypertension (idiopathic) with ulcer of bilateral lower extremity (principal); L97.312 Non-pressure chronic ulcer of right ankle with fat layer exposed; L97.212 Non-pressure chronic ulcer of right calf with fat layer exposed; L97.322 Non-pressure chronic ulcer of left ankle with fat layer exposed; I87.2 Venous insufficiency (chronic) (peripheral); C76.2 Malignant neoplasm of abdomen; L20.81 Atopic neurodermatitis | CPT/HCPCS: 88305; 29581; 99214 ==

== ENCOUNTER → 2025-03-03 14:49 | Outpatient (REF) | payer OTHER, SELFPAY | LOC: WOUND 14:49 | PROVIDERS: ATTENDING PHYSICIAN Surgery; FAMILY PHYSICIAN Internal Medicine | DX: I87.313 Chronic venous hypertension (idiopathic) with ulcer of bilateral lower extremity (principal); L97.312 Non-pressure chronic ulcer of right ankle with fat layer exposed; L97.212 Non-pressure chronic ulcer of right calf with fat layer exposed; L97.322 Non-pressure chronic ulcer of left ankle with fat layer exposed; L20.81 Atopic neurodermatitis | CPT/HCPCS: 99215 ==

== ENCOUNTER 2025-03-03 17:58 | Inpatient (IN) | payer OTHER, SELFPAY ==
[2025-03-03 15:37] VITALS: BP 129/69
[2025-03-03 15:56] LABS: % Basophils 0.4 % (0-2); % Eosinophils 0.7 % (0-6); % Immature Granulocytes 0.6 % (0-0.5); % Lymphocytes 15.6 % (20.5-51.1); % Monocytes 6.8 % (1.7-9.3); % Neutrophils 75.9 % (42.2-75.2); Absolute Basophils 0.1 10^3/uL (0-0.2); Absolute Eosinophils 0.1 10^3/uL (0-0.7); Absolute Immature Granulocytes 0.1 10^3/uL (0-0.05); Absolute Lymphocytes 2.3 10^3/uL (1.2-3.4); Absolute Neutrophils 11.3 10^3/uL (1.4-6.5); Hematocrit 37.4 % (39.0-52.0); Hemoglobin 12.3 g/dL (13.0-18.0); Mean Corp Hgb Conc. 32.9 g/dL (33.0-37.0); Mean Corpuscular Hgb 27.6 pg (27.0-31.0); Mean Platelet Volume 9.5 fL (7.4-10.4); Nucleated Red Blood Cells % 0 % (-); Platelet Count 177 10^3/uL (130-400); Red Blood Cell Count 4.45 10^6/uL (4.70-6.10); Red Cell Dist. Width 14.1 % (11.5-14.5)
[2025-03-03 16:05] LABS: INR 1.48; PT 18.1 Sec (11.4-14.6)
[2025-03-03 16:22] LABS: ALT (SGPT) 10 U/L (0-50); AST (SGOT) 14 U/L (17-59); Albumin 3.6 g/dl (3.5-5.0); Alkaline Phosphatase 108 U/L (38-126); Blood Urea Nitrogen 24 mg/dl (9-20); Calcium 8.9 mg/dl (8.4-10.2); Carbon Dioxide 27 mmol/L (22-30); Chloride 101 mmol/L (98-107); Glucose 165 mg/dl (70-99); Potassium 3.9 mmol/L (3.5-5.1); Sodium 137 mmol/L (135-145); eGFR > 60.00
--- NOTE | 2025-03-03 17:15 | ED.GENMED ---
History of Present Illness
General
Chief Complaint: Skin Problem
Time Seen by Provider: 03/03/25 16:36
History of Present Illness
History of Present Illness:
Patient is a 64-year-old man presenting to the emergency department with concerns for leg infection. Patient has venous stasis problems with wound healing. He was sent from the wound care center for IV antibiotics for concerns for left leg
cellulitis. Patient states for the past few weeks he has had a ulcer to the left lateral leg with purulent drainage. He does have exquisite tenderness. No fevers or chills. No numbness tingling. He does have history of diabetes. No recent
antibiotics
Past History
Past History
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
ED Past Surgical History: Other (Noncontributory)
Social History
Tobacco: Non-smoker
Alcohol: None
Drug: None
Employment: Not employed
Family History
Family History: Other (Noncontributory)
Phy Exam
Physical Exam
Physical Exam:
GENERAL: in no acute distress
HEENT: normocephalic, extraocular movements intact, moist oral mucosa
NECK: normal inspection
RESPIRATORY: no respiratory distress, clear to auscultation bilaterally
CARDIOVASCULAR: regular rate and rhythm
ABDOMEN/: soft, non-distended, non-tender to palpation, no rebound or guarding
EXTREMITIES: Bilateral lower extremity swelling with venous stasis changes. Left lower extremity with open ulcer to the lateral leg with active purulent and bloody drainage, no obvious abscess, normal sensation
NEUROLOGIC: awake and alert, moves all extremities
SKIN: warm
Course
Orders/Labs/Results
Orders:
Orders
03/03/25 15:47
Complete Blood Count/With Diff Urgent
Comprehensive Metabolic Panel Urgent
Lactic Acid Q4H
Comment: ON ICE, CANCEL 2ND ORDER IF FIRST LACTIC ACID LEVEL <2
Prothrombin Time Urgent
Blood Culture Q20M
KEISHA Source: Blood/Venous
Specimen Description:
Comment: Urgent from separate sites. If patient screens positive for possible sepsis
03/03/25 16:05
Blood Culture Q20M
KEISHA Source: Blood/Venous
Specimen Description:
Comment: Urgent from separate sites. If patient screens positive for possible sepsis
03/03/25 17:15
Piperacillin/Tazo 4.5 Gram [Zosyn] 4.5 gram in 100 ml IV NOW
Vancomycin [Vancocin] 2,000 mg 0.9% Sodium Chloride 500 ml [Nss] 500 ml IV NOW
Abnormal Lab Results
03/03/25
15:47
WBC 15.0 H 10^3/uL
(4.8-10.8)
RBC 4.45 L 10^6/uL
(4.70-6.10)
Hgb 12.3 L g/dL
(13.0-18.0)
Hct 37.4 L %
(39.0-52.0)
MCHC 32.9 L g/dL
(33.0-37.0)
Abs Immat Gran (auto) 0.1 H 10^3/uL
(0-0.05)
Absolute Neuts (auto) 11.3 H 10^3/uL
(1.4-6.5)
Absolute Monos (auto) 1.0 H 10^3/uL
(0.1-0.6)
Immature Gran % 0.6 H %
(0-0.5)
Neutrophils % 75.9 H %
(42.2-75.2)
Lymphocytes % 15.6 L %
(20.5-51.1)
PT 18.1 H Sec
(11.4-14.6)
BUN 24 H mg/dl
(9-20)
Glucose 165 H mg/dl
(70-99)
AST 14 L U/L
(17-59)
03/03/25 15:47
03/03/25 15:47
Vital Signs
Initial and Last Documented VS:
Initial Vital Signs
Temp Pulse Resp BP Pulse Ox
98.9 F 80 18 129/69 92
03/03/25 15:37 03/03/25 15:37 03/03/25 15:37 03/03/25 15:37 03/03/25 15:37
Last Documented Vital Signs
Temp Pulse Resp BP Pulse Ox
98.9 F 80 18 129/69 92
03/03/25 15:37 03/03/25 15:37 03/03/25 15:37 03/03/25 15:37 03/03/25 15:37
MDM/Problems Addressed
Differential Diagnosis Includes:
Patient is a 64-year-old man presenting to the emergency department sent by his wound care doctor with concerns for skin infection on arrival patient is afebrile. He does have bilateral lower extremity swelling with an open wound to the left
lateral leg with associated tenderness and drainage that is foul-smelling. Concern for cellulitis. Blood work obtained prior to my evaluation does show leukocytosis. Will give vancomycin as well as Zosyn given patient's history. Blood cultures
were obtained. Discussed with hospitalist who excepted patient to their service
*Critical Care Note
Total Time (30-74mins, 75-104mins- exclusive of procedures): Not Applicable
ED Attending Note
-
Portions of this chart may have been created with voice recognition software.� Occasional wrong word or��sound alike� substitutions may have occurred due to the inherent limitations of voice recognition software.
Discharge Plan
Departure
Prescriptions:
No Action
zinc sulfate 50 mg zinc (220 mg) Tablet
50 mg PO DAILY
calcium carbonate 500 mg calcium (1,250 mg) Tablet
500 mg PO DAILY
buprenorphine-naloxone [Suboxone] 4-1 mg Film
1 film BUCCAL NOON
buprenorphine-naloxone [Suboxone] 4-1 mg Film
0.5 film BUCCAL HSPRN PRN (Reason: opioid dependence)
atorvastatin 40 MG tablet
40 mg PO HS
Linzess 290 mcg Capsule
290 mcg PO DAILY @ 0600 Qty: 30 0RF
sennosides [Gia-alecia] 8.6 mg Tablet
17.2 mg PO BID Qty: 60 1RF
Xarelto 20 mg Tablet
20 mg PO QPM Qty: 30 1RF
Rx Instructions:
First dose on January 03, 2025
insulin aspart U-100 [Novolog FlexPen U-100 Insulin] 100 unit/mL (3 mL) Insulin Pen
2 unit SC AC Qty: 5 0RF
insulin glargine [Lantus Solostar U-100 Insulin] 100 unit/mL (3 mL) Insulin Pen
5 unit SC DAILY Qty: 5 0RF
Rx Instructions:
Daily in the morning
metoprolol succinate 50 mg tablet extended release 24 hr
100 mg PO DAILY
Rx Instructions:
First dose on January 03, 2025
amiodarone 200 mg Tablet
200 mg PO DAILY
Interventions
Interventions:
*Risk Screen - Suicide Last Done: 03/03/25 15:36
*General Assessment Last Done: 03/03/25 15:36
*Neglect/Abuse Screening Last Done: 03/03/25 15:36
*ED- Fall Risk Assessment Last Done: 03/03/25 17:20
*ED COVID-19 Vaccine History Last Done: 03/03/25 15:36
ED-Skin Assessment Last Done: 03/03/25 17:20
Discharge Date and Time
Print Language: ROMANIAN
[2025-03-03 17:20] VITALS: BMI 41.4
--- NOTE | 2025-03-03 17:33 | HPS.HSE ---
Family Physician
-
Family Physician:
Chief Complaint
-
concerns for leg infection
History of Present Illness
Patient is 64 years old with history of insulin-dependent diabetes mellitus, hypertension, CHF, hyperlipidemia who came to [facility] ER today with concern of leg infection from wound care.
Patient was at wound care when found to have worsening left lower extremity infection and purulent drainage.
Patient came to the ER found to have leukocytosis with white count 15, otherwise patient denies any chest pain or shortness of breath, no abdominal pain, no nausea, no vomiting, no diarrhea or constipation.
Patient received vancomycin and Zosyn in the ER and plan to admit for further management.
Medical History
Past Medical History
Past Medical History: Reports CHF, HTN, IDDM and Other
Additional Past Medical History:
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
Past Surgical History: Reports Other
Additional Past Surgical History:
loop implant.
Social History
Tobacco: Non-smoker
Alcohol: None
Family History
Family History: Not pertinent
Allergies / Home Medications
Allergies reflects when Allergies were last updated in [facility].
Home Medications with original date entered in [facility]
Allergy/Medication List:
Allergies
Allergy/AdvReac Type Severity Reaction Status Date / Time
No Known Allergies Allergy Verified 03/03/25 15:36
Home Medications
atorvastatin 40 mg tablet 40 mg PO HS High Cholesterol 12/24/24
buprenorphine 4 mg-naloxone 1 mg sublingual film (Suboxone) 1 film buccal DAILY Opioid use disorder 12/24/24
rivaroxaban 20 mg tablet (Xarelto) 20 mg PO QPM #30 tabs 01/02/25
amiodarone 200 mg tablet 200 mg PO DAILY 02/02/25
metoprolol succinate 50 mg tablet,extended release 24 hr 100 mg PO DAILY 02/02/25
furosemide 40 mg tablet (Lasix) 40 mg PO QPM 04/29/25
insulin aspart U-100 100 unit/mL (3 mL) subcutaneous pen (Novolog FlexPen U-100 Insulin aspart) 20 sliding scale dose SC AC 03/03/25
insulin glargine 100 unit/mL (3 mL) subcutaneous pen (Lantus Solostar U-100 Insulin) 24 unit SC DAILY 03/03/25
linaclotide 290 mcg capsule (Linzess) 290 mcg PO DAILY 03/03/25
sennosides 8.6 mg tablet (Gia-alecia) 8.6 mg PO BID 03/03/25
spironolactone 25 mg tablet 25 mg PO DAILY 03/03/25
Review of Systems
-
A 12 point ROS was completed and negative except as noted: Yes
Constitutional: Denies Fever, Weight Gain, Weight Loss, Fatigue or Sleep Disturbance
EENT: Denies Tearing, Sore Throat, Mouth Pain, Mouth Swelling or Runny Nose
Respiratory: Denies Cough, Hemoptysis or Trouble Breathing
Cardiac: Denies Chest Pain, Diaphoresis, Palpitations or Syncope
Abdomen/GI: Denies Abdominal Pain, Nausea, Vomiting, Diarrhea, Constipated, Bloody Stools or Black Stools
: Denies Dysuria, Frequency, Flank Pain, Incontinence, Difficulty Voiding, Urgency, Bleeding or Dark Urine
Musculoskeletal: Reports Joint Swelling, Muscle Pain and Edema; Denies Joint Pain or Muscle Stiffness
Skin: Reports Itching and Rash
Neurological: Denies Dizzy, Headache, Weakness or Numbness
Endocrine: Denies Polyuria, Polydipsia or Temp Intolerance
Hematologic/Lymphatic: Denies Bleeding, Swollen Glands or Bruising
Psych: Reports Calm; Denies Depression, Anxiety or Panic Disorder
Physical Exam
Vital Signs
Vital Signs
Temp Pulse Resp BP Pulse Ox
98.9 F 80 18 129/69 92
03/03/25 15:37 03/03/25 15:37 03/03/25 15:37 03/03/25 15:37 03/03/25 15:37
Physical Exam
General: Well Developed, Well Nourished, No Apparent Distress, Comfortable and Good Appetite; No Pain, Chills or Sweats
HEENT: NormoCephalic, Moist mucous membranes, Atraumatic, Good Dentition, PERRLA, Nose Appears Normal and Ears Appear Normal
Respiratory: Clear
Cardiac: S1/S2, Regular Rhythm and Peripheral Edema
Breast: Deferred by me
GI: Soft, Non Tender, Non Distended and Normal Bowel Sounds
Genito-urinary: Deferred by me
Musculoskeletal: No Clubbing, No Cyanosis, Edema, Left Lower Extremity, Edema, Right Lower Extremity and Other (Left lower extremity dressing)
Skin: Warm, Rash, Lesions and Other (Bilateral lower extremity redness, bilateral edema); No Jaundice, Ulcers or Decubitus Ulcers
Neuro: Awake, Alert, Oriented, AO x 3, No Motor Deficits, Nonfocal/grossly intact and Cranial Nerves Intact
Hematologic/Lymphatic: No Lymphadenopathy
Psych: Calm
Laboratory Results
-
03/03/25 15:47
03/03/25 15:47
Laboratory Results
PT 18.1 Sec (11.4-14.6) H 03/03/25 15:47
INR 1.48 03/03/25 15:47
Lactic Acid Cancelled 03/03/25 19:45
Total Bilirubin 1.0 mg/dl (0.2-1.3) 03/03/25 15:47
AST 14 U/L (17-59) L 03/03/25 15:47
ALT 10 U/L (0-50) 03/03/25 15:47
Alkaline Phosphatase 108 U/L (38-126) 03/03/25 15:47
Data Reviewed
-
Diagnostic Radiology: Report Reviewed by me
CT Scan: Report Reviewed by me
Medical Tests (Nuc Med, Echo, EKG etc): Report Reviewed by me
Lab Data: Labs Reviewed by me
Old Records: Reviewed
Impression/Plan
-
IMPRESSION:
Patient is 64 years old with history of insulin-dependent diabetes mellitus, hypertension, CHF, hyperlipidemia who came to [facility] ER today with concern of leg infection from wound care.
Patient was at wound care when found to have worsening left lower extremity infection and purulent drainage. Patient was given vancomycin and Zosyn in the ER, will admit under hospitalist service.
Assessment/plan:
Left lower extremity cellulitis:
Patient with leukocytosis but otherwise no other sign of sepsis.
No tachycardia fever.
Started on vancomycin and Zosyn in the ER.
Continue vancomycin and Zosyn.
Infectious disease consult
Patient already anticoagulated, less likely acute DVT
History of atrial flutter, status post cardioversion on February 02, 2025
Currently sinus rhythm.
Continue metoprolol/amiodarone/Xarelto
Insulin-dependent diabetes mellitus.
Continue current insulin regimen.
Recent hemoglobin A1c 17.7 on December 25, 2024
Will repeat A1c
breakfast Lunch Dinner
Lantus 24 units
NovoLog 20 units 20 units 20 units
insulin sliding scale
History of non-ischemic cardiomyopathy
Echi done on 12/26/2024 shows:
Left ventricle is severely dilated.
Mild to moderate concentric left ventricular hypertrophy.
Severely reduced left ventricular systolic function.
Global hypokinesis.
Left ventricular ejection fraction is 20-25% by visual assessment.
Reduced right ventricular systolic function.
Enlarged right ventricular size.
Mild to moderate mitral regurgitation.
Mild to moderate tricuspid regurgitation.
Estimated pulmonary artery pressure of 30-35 mmHg.
Normal pericardium without effusion.
Compared to 2019 echocardiogram LV function is now moderate to severely
depressed
Continue beta-deanna.
Continue Lasix/spironolactone
Chronic suboxone therapy
-continue for now
HTN
- Metoprolol
CODE STATUS: Full code
DVT prophylaxis: Xarleto
Diet: DM diet
Total time spent on today's encounter was 75 minutes which included time spent in counseling the patient/family regarding diagnosis and treatment plan as listed above, goals of care, and symptom management. Case was discussed with nursing staff,
specialists, and care coordinators/case management. All labs and imaging personally reviewed by me. Remainder the time spent in detailed review of previous records, lab data, imaging, and other medical provider documentation.
[2025-03-03] MEDS: ZOSYN 100 IV ×2 (17:40→23:41)
[2025-03-03 20:20] VITALS: BP 114/67; BMI 39.0
--- NOTE | 2025-03-03 20:48 | PHA.VAN.IN ---
Assessment
- Assessment
Renal Function: Appears similar to baseline
Concomitant Antimicrobials: ZOSYN
- Previous Dosing Experience
Previous Regimen: DOSING BY RANDOM LEVEL
Date of Regimen: 09/21/20 SCR WENT FROM 0.8 TO 2.3
Provided Trough of: UNKNOWN
Provided AUC of: UNKNOWN
Patient's SCR is: Decreased compared to previous dosing experience (09/21/20 SCR = 2.3)
Patient's weight is: Decreased compared to previous dosing experience (09/21/20 WT = 153.3 KG)
AUC Dosing Plan
- Dosing Variables
Dosing Weight (kg): 145.2
Dosing CrCl (ml/min): 100
Vd coefficient (L/kg): 0.6
- Empiric Dosing
Initial / Loading Dose: 2GM
Maintenance Regimen: 1500MG IV Q12H
Estimated AUC (mcg*h/mL): 411
Estimated Peak (mcg*h/mL): 26.5
Estimated Trough (mcg/ml): 10.1
Estimated Half Life (H): 7.9
Pharmacokinetics Vancomycin I
- -
Patient Age: 64
Patient Sex: Male
Vancomycin Day #: 1
Indication: Skin And Soft Tissue (LLE CELLULITIS)
Requesting Provider: MARTA
Height / Weight:
Height 6 ft 4 in
Actual Weight 145.195 kg
Pertinent Past Medical History: DM
- Vital Signs / Lab Results
Temp Pulse Resp BP Pulse Ox
97.4 F 65 16 114/67 96
03/03/25 20:20 03/03/25 20:20 03/03/25 20:20 03/03/25 20:20 03/03/25 20:20
Lab Results - Hematology
03/03/25
15:47
WBC 15.0 H
Lab Results - Chemistry
03/03/25
15:47
BUN 24 H
Creatinine 0.8
Albumin 3.6
03/03/25 03/03/25
15:47 19:45
Lactic Acid 1.0 Cancelled
[2025-03-03 20:55] VITALS: BMI 39.0
[2025-03-03] MEDS: LASIX 40 MG PO (21:02)
[2025-03-03] MEDS: SENOKOT 8.6 MG PO (21:03)
[2025-03-03] MEDS: XARELTO 20 MG PO (21:03)
[2025-03-03] MEDS: VANCOCIN 540 MG IV (21:29)
[2025-03-03 21:34] LABS: Glucose - Point of Care 131 mg/dl (70-99)
[2025-03-03 23:00] VITALS: BP 113/64
[2025-03-03] MEDS: LIPITOR 40 MG PO (23:16)
--- NOTE | 2025-03-04 00:58 | PTCARENOTE ---
Pt walked to chair upon arrival to unit. Pt is AAOx3. Wound dressings on left leg and top of left foot changed. Call bedoya within reach. Pt care ongoing.
[2025-03-04 03:00] VITALS: BP 102/68
[2025-03-04] MEDS: ZOSYN 100 IV ×2 (05:26→13:13)
[2025-03-04 06:00] VITALS: BMI 38.8
[2025-03-04] MEDS: LINZESS 290 MCG PO (06:28)
[2025-03-04] MEDS: VANCOCIN 530 MG IV (06:30)
[2025-03-04 07:27] VITALS: BP 102/59
[2025-03-04 07:29] LABS: Hematocrit 35.3 % (39.0-52.0); Hemoglobin 11.7 g/dL (13.0-18.0); Mean Corp Hgb Conc. 33.1 g/dL (33.0-37.0); Mean Corpuscular Hgb 27.9 pg (27.0-31.0); Mean Corpuscular Volume 84.2 fL (80.0-94.0); Mean Platelet Volume 10.1 fL (7.4-10.4); Platelet Count 190 10^3/uL (130-400); Red Blood Cell Count 4.19 10^6/uL (4.70-6.10); White Blood Cell Count 13.3 10^3/uL (4.8-10.8)
[2025-03-04 07:41] LABS: Glucose - Point of Care 148 mg/dl (70-99)
[2025-03-04 07:43] LABS: Blood Urea Nitrogen 23 mg/dl (9-20); Calcium 8.9 mg/dl (8.4-10.2); Carbon Dioxide 26 mmol/L (22-30); Chloride 101 mmol/L (98-107); Estimated Creatinine Clearance > 125 ml/min; Glucose 153 mg/dl (70-99); Magnesium 1.9 mg/dl (1.6-2.3); Potassium 4.2 mmol/L (3.5-5.1); Sodium 135 mmol/L (135-145); eGFR > 60.00
[2025-03-04] MEDS: NOVOLOG FLEXPEN-LOW RESISTANCE SC ×2 (07:58→16:53)
[2025-03-04] MEDS: NOVOLOG FLEXPEN 20 UNITS SC ×3 (07:59→17:23)
[2025-03-04] MEDS: ALDACTONE 25 MG PO (08:00)
[2025-03-04] MEDS: PACERONE 200 MG PO (08:01)
[2025-03-04] MEDS: TOPROL XL 100 MG PO (08:01)
[2025-03-04] MEDS: SENOKOT 8.6 MG PO ×2 (08:01→22:09)
--- NOTE | 2025-03-04 08:42 | PHA.VAN.FU ---
Vancomycin Assessment / Plan
- Assessment
Renal Function: Stable
WBC's are: Trending Down
In the past 24 hrs, patient has been: Afebrile
Concomitant Antimicrobials: piperacillin/tazobactam
- Dosing Plan
Continue: Vanc 1500mg Q12H
- Monitoring Plan
No level(s) ordered at this time: consider levels in next few days
- Follow Up
Pharmacy will continue to follow.
Vancomycin Follow UP
- -
Patient Age: 64
Patient Sex: Male
Vancomycin Day #: 2
Indication: Skin And Soft Tissue
Requesting Provider: Dr. Villanueva
Pertinent Antimicrobial Allergies:
NKDA
Height / Weight:
Height 6 ft 4 in
Actual Weight 144.424 kg
Pertinent Past Medical History: BMI ~39, DM
- Vital Signs / Lab Results
Temp Pulse Resp BP Pulse Ox
98.3 F 66 17 102/59 100
03/04/25 07:27 03/04/25 08:00 03/04/25 07:27 03/04/25 08:00 03/04/25 07:27
Lab Results - Hematology
03/03/25 03/04/25
15:47 06:49
WBC 15.0 H 13.3 H
Lab Results - Chemistry
03/03/25 03/04/25
15:47 06:49
BUN 24 H 23 H
Creatinine 0.8 0.8
Estimated Creat Clear > 125
Albumin 3.6
03/03/25 03/03/25
15:47 19:45
Lactic Acid 1.0 Cancelled
--- NOTE | 2025-03-04 09:14 | WOUNDNOTE ---
WO RN note: Patient admitted with sepsis/cellulitis. Patient follows Dr. Bush at [facility].
See H&P for complete history.
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 Bush outpatient note. He uses a LLE Farrow wrap and has compression pump at home.
Coflex RLE was being done at [facility].
Wound Location and type/assessment: Patient admitted with: L lateral calf full thickness to subcutaneous layer venous stasis ulcer. R lateral calf healing full thickness to subcutaneous layer venous stasis ulcer. +3 LLE edema. +1 RLE edema. MASD in
abdominal folds. +Pedal pulses easily heard via portable Doppler. 12/23/17 TALHA/TBI normal. Patient on Xarelto. Coccyx crease dull red and intact. Patient usually sleeps in a recliner chair.
Appetite: good.
Pressure redistribution devices in place: [employer] Accumax. Patient ambulates slowly.
Plan: Patient seen with Dr. Arvizu who approved knee high Yonatan wraps. Dr. Arvizu ordered a LLE venous Doppler to r/t DVT. Dressings changed by [facility] RN rita Sandoval. Healing potential poor d/t patient keeps his LE dependent most of the time.
Will confirm orders with Dr. Villanueva and discussed with LAWRENCE Montalvo.
Care plan to be updated and will follow as needed.
Note to case management requested for discharge: VN if patient accepts.
Patient to follow up at wound care center upon discharge.
[2025-03-04] MEDS: LANTUS 0.24 UNITS SC (09:24)
[2025-03-04] MEDS: SUBUTEX 4 MG SL (09:25)
--- NOTE | 2025-03-04 09:27 | WOUNDNOTE ---
MARITA (L MEDIAL, R LATERAL)
[2025-03-04 09:46] LABS: Glycohemoglobin (HgbA1c) 8.5 % (4.0-5.6)
--- NOTE | 2025-03-04 11:10 | W.PN.HOSP.TC ---
Today's Communication/Plan
-
Continue IV antibiotic for additional 24 hours
Infectious disease consulted
Assessment / Plan
Assessment / Plan
IMPRESSION:
Patient is 64 years old with history of insulin-dependent diabetes mellitus, hypertension, CHF, hyperlipidemia who came to [facility] ER today with concern of leg infection from wound care.
Patient was at wound care when found to have worsening left lower extremity infection and purulent drainage. Patient was given vancomycin and Zosyn in the ER, will admit under hospitalist service.
Redness improved with IV antibiotic.
Infectious is consulted
Assessment/plan:
Left lower extremity cellulitis:
Patient with leukocytosis but otherwise no other sign of sepsis.
No tachycardia fever.
Started on vancomycin and Zosyn in the ER.
Continue vancomycin and Zosyn.
Infectious disease consult
Patient already anticoagulated, less likely acute DVT
03/04
Follow with infectious disease recommendatins.
Wound culture pending.
History of atrial flutter, status post cardioversion on February 02, 2025
Currently sinus rhythm.
Continue metoprolol/amiodarone/Xarelto
Insulin-dependent diabetes mellitus.
Continue current insulin regimen.
Recent hemoglobin A1c 17.7 on December 25, 2024
Will repeat A1c
breakfast Lunch Dinner
Lantus 24 units
NovoLog 20 units 20 units 20 units
insulin sliding scale
History of non-ischemic cardiomyopathy
Echi done on 12/26/2024 shows:
Left ventricle is severely dilated.
Mild to moderate concentric left ventricular hypertrophy.
Severely reduced left ventricular systolic function.
Global hypokinesis.
Left ventricular ejection fraction is 20-25% by visual assessment.
Reduced right ventricular systolic function.
Enlarged right ventricular size.
Mild to moderate mitral regurgitation.
Mild to moderate tricuspid regurgitation.
Estimated pulmonary artery pressure of 30-35 mmHg.
Normal pericardium without effusion.
Compared to 2020 echocardiogram LV function is now moderate to severely
depressed
Continue beta-deanna.
Continue Lasix/spironolactone
Chronic suboxone therapy
-continue for now
HTN
- Metoprolol
CODE STATUS: Full code
DVT prophylaxis: Xarleto
Diet: DM diet
Total time spent on today's encounter was 65 minutes which included time spent in counseling the patient/family regarding diagnosis and treatment plan as listed above, goals of care, and symptom management. Case was discussed with nursing staff,
specialists, and care coordinators/case management. All labs and imaging personally reviewed by me. Remainder the time spent in detailed review of previous records, lab data, imaging, and other medical provider documentation.
Anticipated Discharge: Within 24 hours
Subjective/Interval History
-
Date of Service: March 04, 2025
Patient seen and examined at bedside, denies any chest pain or shortness of breath, no abdominal pain, no nausea, no vomiting, no diarrhea or constipation.
Patient asking when he can go home, WBCs improved.
Objective Data
-
Labs:
Laboratory Results
03/04/25
06:49
WBC 13.3 H
Hgb 11.7 L
Hct 35.3 L
Plt Count 190
Sodium 135
Potassium 4.2
Chloride 101
Carbon Dioxide 26
BUN 23 H
Creatinine 0.8
Glucose 153 H
Calcium 8.9
Vital Signs:
Vital Signs
Temp Pulse Resp BP Pulse Ox
98.3 F 66 17 102/59 100
03/04/25 07:27 03/04/25 08:00 03/04/25 07:27 03/04/25 08:00 03/04/25 07:27
I&O
03/03/25 03/04/25 03/05/25
06:59 06:59 06:59
Intake Total 480 / 480
Balance 480 / 480
Physical Exam
-
General: Well Developed, Well Nourished, No Apparent Distress and Comfortable
HEENT: Normocephalic, Atraumatic, Moist Mucous Membranes, No Ptosis, PERRLA and Nose Appears Normal
Respiratory: Clear to Auscultation and Non Labored Respirations
Cardiac: Regular Rhythm and S1/S2
Breast: Deferred by me
GI: Soft, Nontender, Nondistended and Normal Bowel Sounds
Genito-urinary: No Costovertebral Tender
Musculoskeletal: No Clubbing, No Cyanosis, Edema, Right Lower Extrem, Edema, Left Lower Extrem and Other (Left leg dressing)
Skin: Other (Bilateral extremity reddness)
Neuro: Awake, Alert, Oriented, AO x 3 and No Motor Deficits
Psych: Calm
Data Reviewed
-
Diagnostic Radiology: Image personally visualized and interpreted and Report Reviewed by me
CT Scan: Image personally visualized and interpreted and Report Reviewed by me
Ultrasound: Image personally visualized and interpreted and Report Reviewed by me
MRI: Image personally visualized and interpreted and Report Reviewed by me
Medical Tests (Nuc Med, Echo etc): Image personally visualized and interpreted and Report Reviewed by me
Labs: Labs Reviewed by me
Old Records: Reviewed
[2025-03-04 11:15] VITALS: BP 116/81
[2025-03-04 11:55] LABS: Glucose - Point of Care 154 mg/dl (70-99)
[2025-03-04] MEDS: NOVOLOG FLEXPEN-LOW RESISTANCE 1 UNITS SC (13:12)
[2025-03-04 15:06] VITALS: BP 99/56
--- NOTE | 2025-03-04 16:01 | CON.ID ---
Consultation
-
Date/Time Consultation Requested: 03/03/2025 20:12
Date/Time Consultation Performed: 03/04/2025 12:44
Requesting Provider: Dr. Villanueva
Performing Provider: Dr. Arvizu
Reason for Consultation: Left leg cellulitis
Chief Complaint / Past History
History of Present Illness
Merrill Knapp is a 64-year-old man with a significant past medical history of diabetes mellitus and advanced venous insufficiency being evaluated at the request of Dr. Villanueva regarding left lower extremity cellulitis. History is obtained from
chart review, along with patient interview.
The patient reports that he has had lymphedema for approximate last 12 years, and has been under the care of multiple different providers including vascular surgery and lymphedema clinic. He has used compressive modalities in the past, including
Farrow wraps. He presents delete that
He reports that approximately 6 weeks ago he noted increased swelling of the left lower extremity, and approximately 3 weeks ago an area opened on the lateral aspect of the calf at the site of a prior injury many years ago. He was seen in the wound
care center, and a biopsy was performed approximately 1 week ago. This week, he was scheduled for follow-up, but when evaluated he was sent to the emergency room given marked worsening of the lower extremity wound and significant edema.
He reports no fevers or chills. He denies significant discomfort to the leg at rest, but if it is touched he develops 8/10 pain. He denies any groin swelling. He notes some serous drainage from the leg.
Past History
Additional Past Medical History:
CHF
HTN
DM
HLD
Advanced bilateral lower extremity venous insufficiency
Morbid obesity (BMI~38)
Additional Past Surgical History:
Bilateral knee surgery
Allergy History:
No Known Allergies Allergy (Verified 03/03/25 15:36)
Medications Reviewed: Yes
Current Antibiotics:
Vancomycin
Zosyn
Social History
Tobacco: Non-Smoker
Alcohol: None
Drug: None
Personal:
Living: With Family
Employment: Employed
Family History
Family History: Not Pertinent
Review of Systems
Vital Signs
Temp Pulse Resp BP Pulse Ox
98.2 F 59 18 99/56 97
03/04/25 15:06 03/04/25 15:06 03/04/25 15:06 03/04/25 15:06 03/04/25 15:06
Physical Exam
Physical Exam
Constitutional: No Acute Distress, Comfortable, Non-toxic and Obese
Eyes: No Conjunctival Hemorrhage and Sclera Anicteric
Cardiovascular: S1/S2; Negative S3/S4 or Murmur
Pulmonary: Non Labored
Gastrointestinal: Soft, Non Tender and Non Distended
Extremities: Edema (4+ LLE edema), Erythema (B/L LE's), Venous Insufficiency (Severe hemosiderin staining bilateral lower extremities) and Other (minimal to mild warmth LLE)
Neurological: Awake and Alert
Psychological: Calm
.
Lab / Diagnostic Study Results
03/04/25 06:49
03/04/25 06:49
Abs Immat Gran (auto) 0.1 10^3/uL (0-0.05) H 03/03/25 15:47
Absolute Neuts (auto) 11.3 10^3/uL (1.4-6.5) H 03/03/25 15:47
Absolute Lymphs (auto) 2.3 10^3/uL (1.2-3.4) 03/03/25 15:47
Absolute Monos (auto) 1.0 10^3/uL (0.1-0.6) H 03/03/25 15:47
Absolute Basos (auto) 0.1 10^3/uL (0-0.2) 03/03/25 15:47
Immature Gran % 0.6 % (0-0.5) H 03/03/25 15:47
Neutrophils % 75.9 % (42.2-75.2) H 03/03/25 15:47
Lymphocytes % 15.6 % (20.5-51.1) L 03/03/25 15:47
Monocytes % 6.8 % (1.7-9.3) 03/03/25 15:47
Eosinophils % 0.7 % (0-6) 03/03/25 15:47
Basophils % 0.4 % (0-2) 03/03/25 15:47
PT 18.1 Sec (11.4-14.6) H 03/03/25 15:47
INR 1.48 03/03/25 15:47
Lactic Acid Cancelled 03/03/25 19:45
Microbiology Results
Micro:
03/03/25 15:47 Blood Culture - Preliminary
Blood/Venous No Growth in 24 hours- Final report to follow
03/04/25 14:13 Wound Culture - Pending
Leg - Left Gram Stain - Preliminary
03/04/25 06:49 Blood Culture - Pending
Blood/Venous
Imaging:
03/04/25 duplex ultrasound left lower extremity: No evidence of DVT in the left lower extremity, although limited exam.
Assessment / Plan
Left lower extremity cellulitis
Lateral left calf wound
Uncontrolled lymphedema left lower extremity
Bilateral venous insufficiency and stasis
Leukocytosis
CHF
HTN
DM
HLD
Advanced bilateral lower extremity venous insufficiency
Morbid obesity (BMI~38)
Recommendations:
Narrow abx to cefazolin 2 gm IV q 8h
B/L LE compression with BOO wraps.
LLE elevation to level of heart or above 1 hour out of every 6 hours.
Local care to the lateral calf wound. Pt will need ongoing follow-up in the [facility].
Follow for clinical improvement.
Patient counseled extensively on the need for compressive modalities 24 hours a day.
[2025-03-04 16:39] LABS: Glucose - Point of Care 91 mg/dl (70-99)
[2025-03-04] MEDS: LASIX 40 MG PO (17:22)
[2025-03-04] MEDS: XARELTO 20 MG PO (17:22)
[2025-03-04] MEDS: ANCEF 10 IV (17:23)
[2025-03-04 19:00] VITALS: BP 118/70
[2025-03-04 21:29] LABS: Glucose - Point of Care 78 mg/dl (70-99)
[2025-03-04] MEDS: DESENEX/MITRAZOL/ZEASORB 1 APPLIC TOPICAL (22:00)
[2025-03-04] MEDS: HYDROPHOR 1 APPLIC TOPICAL (22:01)
[2025-03-04] MEDS: LIPITOR 40 MG PO (22:10)
[2025-03-04 23:00] VITALS: BP 108/60
[2025-03-05] MEDS: ANCEF 10 IV ×2 (02:16→10:15)
[2025-03-05 03:00] VITALS: BP 112/68
[2025-03-05 06:00] VITALS: BMI 38.4
[2025-03-05] MEDS: LINZESS 290 MCG PO (06:05)
[2025-03-05 06:44] LABS: Hematocrit 35.9 % (39.0-52.0); Hemoglobin 11.7 g/dL (13.0-18.0); Mean Corp Hgb Conc. 32.6 g/dL (33.0-37.0); Mean Corpuscular Hgb 27.8 pg (27.0-31.0); Mean Corpuscular Volume 85.3 fL (80.0-94.0); Mean Platelet Volume 9.9 fL (7.4-10.4); Platelet Count 181 10^3/uL (130-400); Red Blood Cell Count 4.21 10^6/uL (4.70-6.10); Red Cell Dist. Width 14.1 % (11.5-14.5); White Blood Cell Count 9.9 10^3/uL (4.8-10.8)
[2025-03-05 07:20] VITALS: BP 124/78
[2025-03-05 07:21] LABS: Blood Urea Nitrogen 24 mg/dl (9-20); Calcium 8.8 mg/dl (8.4-10.2); Carbon Dioxide 30 mmol/L (22-30); Chloride 99 mmol/L (98-107); Estimated Creatinine Clearance > 125 ml/min; Glucose 101 mg/dl (70-99); Potassium 4.4 mmol/L (3.5-5.1); Sodium 137 mmol/L (135-145); eGFR > 60.00
[2025-03-05 07:41] LABS: Glucose - Point of Care 98 mg/dl (70-99)
[2025-03-05] MEDS: ALDACTONE 25 MG PO (08:20)
[2025-03-05] MEDS: PACERONE 200 MG PO (08:20)
[2025-03-05] MEDS: SENOKOT 8.6 MG PO (08:20)
[2025-03-05] MEDS: TOPROL XL 100 MG PO (08:20)
[2025-03-05] MEDS: DESENEX/MITRAZOL/ZEASORB 1 APPLIC TOPICAL (08:21)
[2025-03-05] MEDS: HYDROPHOR 1 APPLIC TOPICAL (08:21)
[2025-03-05] MEDS: NOVOLOG FLEXPEN 20 UNITS SC (09:16)
[2025-03-05] MEDS: LANTUS 0.24 UNITS SC (09:16)
[2025-03-05] MEDS: NOVOLOG FLEXPEN-LOW RESISTANCE SC (09:16)
[2025-03-05] MEDS: SUBUTEX 4 MG SL (10:14)
[2025-03-05] MEDS: TYLENOL 650 MG PO (10:14)
--- NOTE | 2025-03-05 10:28 | W.PN.HOSP.TC ---
Today's Communication/Plan
-
Discharge home today.
Assessment / Plan
Assessment / Plan
IMPRESSION:
Patient is 64 years old with history of insulin-dependent diabetes mellitus, hypertension, CHF, hyperlipidemia who came to [facility] ER today with concern of leg infection from wound care.
Patient was at wound care when found to have worsening left lower extremity infection and purulent drainage. Patient was given vancomycin and Zosyn in the ER, will admit under hospitalist service.
Redness improved with IV antibiotic.
Infectious is consulted, antibiotic switched to cefazolin.
Superficial wound culture gram-negative rods.
Infectious disease recommends Keflex 500 mg 4 times daily for 7 days on discharge.
Assessment/plan:
Left lower extremity cellulitis:
Patient with leukocytosis but otherwise no other sign of sepsis.
No tachycardia fever.
Started on vancomycin and Zosyn in the ER.
Continue vancomycin and Zosyn.
Infectious disease consult
Patient already anticoagulated, less likely acute DVT
03/04
Follow with infectious disease recommendatins.
Wound culture pending.
03/05
Infectious is consulted, antibiotic switched to cefazolin.
Superficial wound culture gram-negative rods.
Infectious disease recommends Keflex 500 mg 4 times daily for 7 days on discharge.
History of atrial flutter, status post cardioversion on February 02, 2025
Currently sinus rhythm.
Continue metoprolol/amiodarone/Xarelto
Insulin-dependent diabetes mellitus.
Continue current insulin regimen.
Recent hemoglobin A1c 17.7 on December 25, 2024
Will repeat A1c
breakfast Lunch Dinner
Lantus 24 units
NovoLog 20 units 20 units 20 units
insulin sliding scale
History of non-ischemic cardiomyopathy
Echi done on 12/26/2024 shows:
Left ventricle is severely dilated.
Mild to moderate concentric left ventricular hypertrophy.
Severely reduced left ventricular systolic function.
Global hypokinesis.
Left ventricular ejection fraction is 20-25% by visual assessment.
Reduced right ventricular systolic function.
Enlarged right ventricular size.
Mild to moderate mitral regurgitation.
Mild to moderate tricuspid regurgitation.
Estimated pulmonary artery pressure of 30-35 mmHg.
Normal pericardium without effusion.
Compared to 2019 echocardiogram LV function is now moderate to severely
depressed
Continue beta-deanna.
Continue Lasix/spironolactone
Chronic suboxone therapy
-continue for now
HTN
- Metoprolol
CODE STATUS: Full code
DVT prophylaxis: Xarleto
Diet: DM diet
Total time spent on today's encounter was 65 minutes which included time spent in counseling the patient/family regarding diagnosis and treatment plan as listed above, goals of care, and symptom management. Case was discussed with nursing staff,
specialists, and care coordinators/case management. All labs and imaging personally reviewed by me. Remainder the time spent in detailed review of previous records, lab data, imaging, and other medical provider documentation.
Anticipated Discharge: Today
Subjective/Interval History
-
Date of Service: March 05, 2025
Patient seen and examined at bedside, denies any chest pain or shortness of breath, no abdominal pain, no nausea, no vomiting, no diarrhea or constipation.
Cleared for discharge by infectious disease.
Objective Data
-
Labs:
Laboratory Results
03/05/25
05:49
WBC 9.9
Hgb 11.7 L
Hct 35.9 L
Plt Count 181
Sodium 137
Potassium 4.4
Chloride 99
Carbon Dioxide 30
BUN 24 H
Creatinine 0.9
Glucose 101 H
Calcium 8.8
Vital Signs:
Vital Signs
Temp Pulse Resp BP Pulse Ox
97.7 F 69 19 124/78 96
03/05/25 07:20 03/05/25 08:20 03/05/25 07:20 03/05/25 08:20 03/05/25 09:48
I&O
03/04/25 03/05/25 03/06/25
06:59 06:59 06:59
Intake Total 480 / 480 840 / 840
Balance 480 / 480 840 / 840
Physical Exam
-
General: Well Developed, Well Nourished, No Apparent Distress and Comfortable
HEENT: Normocephalic, Atraumatic, Moist Mucous Membranes, No Ptosis, PERRLA and Nose Appears Normal
Respiratory: Clear to Auscultation and Non Labored Respirations
Cardiac: Regular Rhythm and S1/S2
Breast: Deferred by me
GI: Soft, Nontender, Nondistended and Normal Bowel Sounds
Genito-urinary: No Costovertebral Tender
Musculoskeletal: No Clubbing, No Cyanosis, Edema, Right Lower Extrem, Edema, Left Lower Extrem and Other (Left leg dressing)
Skin: Other (Bilateral extremity reddness)
Neuro: Awake, Alert, Oriented, AO x 3 and No Motor Deficits
Psych: Calm
Data Reviewed
-
Diagnostic Radiology: Image personally visualized and interpreted and Report Reviewed by me
CT Scan: Image personally visualized and interpreted and Report Reviewed by me
Ultrasound: Image personally visualized and interpreted and Report Reviewed by me
MRI: Image personally visualized and interpreted and Report Reviewed by me
Medical Tests (Nuc Med, Echo etc): Image personally visualized and interpreted and Report Reviewed by me
Labs: Labs Reviewed by me
Old Records: Reviewed
--- NOTE | 2025-03-05 10:35 | W.DCSUMMARY ---
Addendum entered and electronically signed by Delano Villanueva MD 03/05/25 12:25:
o��� Yes, cellulitis is related to/associated with/due to diabetes mellitus.
o��� Chronic systolic CHF
Original Note:
Discharge Summary
Discharge Data
Date of Admission: 03/03/25
Date of Discharge: 03/05/25
-
Pending Results: Yes
Additional Pending Results:
Final wound culture.
Hospital Course
Hospital course
Patient is 64 years old with history of insulin-dependent diabetes mellitus, hypertension, CHF, hyperlipidemia who came to [facility] ER today with concern of leg infection from wound care.
Patient was at wound care when found to have worsening left lower extremity infection and purulent drainage. Patient was given vancomycin and Zosyn in the ER, will admit under hospitalist service.
Redness improved with IV antibiotic.
Infectious is consulted, antibiotic switched to cefazolin.
Superficial wound culture gram-negative rods.
Infectious disease recommends Keflex 500 mg 4 times daily for 7 days on discharge.
During hospitalization patient was treated from the following
Left lower extremity cellulitis:
Patient with leukocytosis but otherwise no other sign of sepsis.
No tachycardia fever.
Started on vancomycin and Zosyn in the ER.
Continue vancomycin and Zosyn.
Infectious disease consult
Patient already anticoagulated, less likely acute DVT
03/04
Follow with infectious disease recommendatins.
Wound culture pending.
03/05
Infectious is consulted, antibiotic switched to cefazolin.
Superficial wound culture gram-negative rods.
Infectious disease recommends Keflex 500 mg 4 times daily for 7 days on discharge.
History of atrial flutter, status post cardioversion on February 02, 2025
Currently sinus rhythm.
Continue metoprolol/amiodarone/Xarelto
Insulin-dependent diabetes mellitus.
Continue current insulin regimen.
Recent hemoglobin A1c 17.7 on December 25, 2024
Will repeat A1c
breakfast Lunch Dinner
Lantus 24 units
NovoLog 20 units 20 units 20 units
insulin sliding scale
History of non-ischemic cardiomyopathy
Echi done on 12/26/2024 shows:
Left ventricle is severely dilated.
Mild to moderate concentric left ventricular hypertrophy.
Severely reduced left ventricular systolic function.
Global hypokinesis.
Left ventricular ejection fraction is 20-25% by visual assessment.
Reduced right ventricular systolic function.
Enlarged right ventricular size.
Mild to moderate mitral regurgitation.
Mild to moderate tricuspid regurgitation.
Estimated pulmonary artery pressure of 30-35 mmHg.
Normal pericardium without effusion.
Compared to 2019 echocardiogram LV function is now moderate to severely
depressed
Continue beta-deanna.
Continue Lasix/spironolactone
Chronic suboxone therapy
-continue for now
HTN
- Metoprolol
CODE STATUS: Full code
DVT prophylaxis: Xarleto
Diet: DM diet
Total time spent on today's encounter was 40 minutes which included time spent in counseling the patient/family regarding diagnosis and treatment plan as listed above, goals of care, and symptom management. Case was discussed with nursing staff,
specialists, and care coordinators/case management. All labs and imaging personally reviewed by me. Remainder the time spent in detailed review of previous records, lab data, imaging, and other medical provider documentation.
Anticipated Discharge: Today
Discharge Plan
-
Patient Disposition: Home (Routine Discharge)
Discharge Diagnosis/Procedures: Left lower extremity cellulitis
History of atrial flutter
Insulin-dependent diabetes mellitus
Hypertension
Diet: 2 Gram Sodium and Diabetic, Carb Controlled
Activity: With assistance and As tolerated
Activity Restrictions/Additional Instructions:
Wound Care Instructions
LLE, L foot wounds-clean with saline or Vashe wound cleanser, aquaphor ointment to dry skin le's, adaptic, alginate, ABD pad, secure with Kerlix, change twice a day and as needed for drainage. May reduce to daily if drainage becomes small.
R lateral calf ulcer-clean with saline or Vashe wound cleanser, adaptic, alginate, cover with silicone border foam or ABD pad/Kerlix, change daily and as needed for drainage.
Bilateral knee high Yonatan wraps as tolerated (from base of toes to just below the knee); rewrap daily and with each dressing change.
Miconazole powder to abdominal folds, affected areas twice a day.
Frequent LE elevation.
Follow up at wound care center call for an appointment.
Referrals:
Shankar Mena MD [Family Provider] -
Prescriptions:
New
miconazole nitrate [Miconazorb AF] 2 % Powder
1 applic topical BID Qty: 85 0RF
Rx Instructions:
1 APPLICATION TO abdominal folds, affected areas.
white petrolatum [Hydrophor] 42 % Ointment
1 applic topical BID Qty: 100 0RF
Rx Instructions:
1 APPLICATION TO dry skin to lower extremities.
cephalexin 500 mg capsule
500 mg PO Q6H 7 Days Qty: 28 0RF
Continued
buprenorphine-naloxone [Suboxone] 4-1 mg Film
1 film BUCCAL DAILY
Rx Instructions:
patient takes mid morning/afternoon
atorvastatin 40 MG tablet
40 mg PO HS
Xarelto 20 mg Tablet
20 mg PO QPM Qty: 30 1RF
metoprolol succinate 50 mg tablet extended release 24 hr
100 mg PO DAILY
amiodarone 200 mg Tablet
200 mg PO DAILY
sennosides [Gia-alecia] 8.6 mg tablet
8.6 mg PO BID
insulin aspart U-100 [Novolog FlexPen U-100 Insulin] 100 unit/mL (3 mL) insulin pen
20 sliding scale dose SC AC
insulin glargine [Lantus Solostar U-100 Insulin] 100 unit/mL (3 mL) insulin pen
24 unit SC DAILY
Linzess 290 mcg capsule
290 mcg PO DAILY
furosemide [Lasix] 40 mg Tablet
40 mg PO QPM
spironolactone 25 mg Tablet
25 mg PO DAILY
Discharge Orders:
Discharge Patient (As Directed); Ordered 03/05/25
Ordered By: Delano Villanueva
Discharge Date and Time
Print Language: BELARUSIAN
[2025-03-05 10:57] VITALS: BP 113/69
--- NOTE | 2025-03-05 11:27 | CM ---
CM reviewed chart, patient seen at bedside. IA completed.
Patient admitted to with LLE Cellulitis.
Patient resides with his and two adult children (currently in College) in a multiple story home, 3 entry steps.
Patient reports VN in past after knee/hip surgery, denies any DME or SNF history.
Plan: Discharge to home today with 7 days of Keflex and plan to f/u with PCP. Discharge to home with no needs identified discharge planning needs
PCP: Shankar Mena
Pharm: [facility] in [facility].
--- NOTE | 2025-03-05 11:54 | PN.CDI ---
CDI
- -
CDI:
Physician Documentation Request
Admit Date: 03/03/25 17:58
Dear Doctor,
Please review the following and provide your response in the progress notes.
Clinical Indicators:
Pt. admitted with Left lower extremity cellulitis.
PMHx includes CHF.
03/05 Progress Notes: ' Echo done on 12/26/2024 shows:
Left ventricle is severely dilated.
Mild to moderate concentric left ventricular hypertrophy.
Severely reduced left ventricular systolic function.
Global hypokinesis.
Left ventricular ejection fraction is 20-25% by visual assessment.
Reduced right ventricular systolic function.'
Please provide further specificity regarding the most likely type of CHF you are evaluating, treating or monitoring.
Type
Systolic
Diastolic
Combined Systolic/Diastolic
Other
Use of terms such as suspected, likely, concern for, or probable (associated with a specific diagnosis that is being evaluated, monitored, or treated as if it exists) are acceptable and can be coded in the inpatient setting, when documented at the
time of discharge.
Thank you,
Ariella Mace RN, BSN
CDI Specialist
[facility]
Please use your independent medical judgment in providing your response.
--- NOTE | 2025-03-05 12:13 | PN.CDI ---
CDI
- -
CDI:
Physician Documentation Request
Admit Date: 03/03/25 17:58
Dear Doctor,
Please review the following and provide your response in the progress notes.
Clinical Indicators:
Pt admitted with Left lower extremity cellulitis.
Laboratory Tests
03/03/25 03/04/25
15:47 06:49
Glucose 165 H 153 H
Hemoglobin A1c 8.5 H
Please clarify the relationship between these conditions:
Yes, cellulitis is related to/associated with/due to diabetes mellitus.
No, cellulitis is not related to/associated with/due to diabetes mellitus but it is due to ___. (Please specify)
Other
Use of terms such as suspected, likely, concern for, or probable (associated with a specific diagnosis that is being evaluated, monitored, or treated as if it exists) are acceptable and can be coded in the inpatient setting, when documented at the
time of discharge.
Thank you,
Ariella Mace RN, BSN
CDI Specialist
[facility]
Please use your independent medical judgment in providing your response.
--- NOTE | 2025-03-05 12:36 | PTCARENOTE ---
Pt received discharge order this AM and anticipates driving himself home. When he was ready to go, he states that he would like to have a wheelchair transport to get from his room to [facility] where his car is parked. He preferred this because of the
wounds on his feet. He did not think that he would be able to make the long walk without his feet hurting. This nurse assessed pt's vital signs and overall wellbeing making sure he felt good to drive and to make the walk to his car. No medications
given prior to discharge that would prohibit him from driving with a clear head. Pt educated about the importance of him driving safely and slowly to go home. Discharged off the floor in wheelchair transport around 1235.
== END 2025-03-05 12:38 | disposition home or self-care (01) | DRG 638 ==
LOC: 3 WEST ACU 17:58
PROVIDERS: Emergency Medicine; ADMITTING PHYSICIAN General Practice; EMERGENCY PHYSICIAN Student in an Organized Health Care Education/Training Program; FAMILY PHYSICIAN Internal Medicine; OTHER PHYSICIAN Internal Medicine Infectious Disease
DX: E11.628 Type 2 diabetes mellitus with other skin complications (principal); I42.8 Other cardiomyopathies; I48.92 Unspecified atrial flutter; I50.22 Chronic systolic (congestive) heart failure; L03.116 Cellulitis of left lower limb; Z79.4 Long term (current) use of insulin; E11.9 Type 2 diabetes mellitus without complications; I11.0 Hypertensive heart disease with heart failure; Z79.01 Long term (current) use of anticoagulants
CPT/HCPCS: 80048; 80053; 82962; 83036; 83605; 83735; 85025; 85027; 85610; 87040; 87070; 87077; 87186; 87205; 93971; 96365; 99285

== ENCOUNTER → 2025-03-10 15:04 | Outpatient (REF) | payer OTHER, SELFPAY | LOC: WOUND 15:04 | PROVIDERS: ATTENDING PHYSICIAN Surgery; FAMILY PHYSICIAN Internal Medicine | DX: I87.313 Chronic venous hypertension (idiopathic) with ulcer of bilateral lower extremity (principal); L97.222 Non-pressure chronic ulcer of left calf with fat layer exposed; L97.521 Non-pressure chronic ulcer of other part of left foot limited to breakdown of skin; I87.2 Venous insufficiency (chronic) (peripheral); C76.2 Malignant neoplasm of abdomen; L20.81 Atopic neurodermatitis | CPT/HCPCS: 99213 ==

== ENCOUNTER → 2025-03-17 14:59 | Outpatient (REF) | payer OTHER, SELFPAY | LOC: WOUND 14:59 | PROVIDERS: ATTENDING PHYSICIAN Surgery; FAMILY PHYSICIAN Internal Medicine | DX: I87.313 Chronic venous hypertension (idiopathic) with ulcer of bilateral lower extremity (principal); L97.222 Non-pressure chronic ulcer of left calf with fat layer exposed; L97.521 Non-pressure chronic ulcer of other part of left foot limited to breakdown of skin; I87.2 Venous insufficiency (chronic) (peripheral); C76.2 Malignant neoplasm of abdomen; L20.81 Atopic neurodermatitis | CPT/HCPCS: 99213 ==

== ENCOUNTER → 2025-03-31 14:09 | Outpatient (REF) | payer OTHER, SELFPAY | LOC: WOUND 14:09 | PROVIDERS: ATTENDING PHYSICIAN Surgery; FAMILY PHYSICIAN Internal Medicine | DX: I87.313 Chronic venous hypertension (idiopathic) with ulcer of bilateral lower extremity (principal); L97.222 Non-pressure chronic ulcer of left calf with fat layer exposed; L97.521 Non-pressure chronic ulcer of other part of left foot limited to breakdown of skin; I87.2 Venous insufficiency (chronic) (peripheral); C76.2 Malignant neoplasm of abdomen; L20.81 Atopic neurodermatitis | CPT/HCPCS: 99213 ==

== ENCOUNTER → 2025-04-07 14:51 | Outpatient (REF) | payer OTHER, SELFPAY | LOC: WOUND 14:51 | PROVIDERS: ATTENDING PHYSICIAN Surgery; FAMILY PHYSICIAN Internal Medicine | DX: I87.313 Chronic venous hypertension (idiopathic) with ulcer of bilateral lower extremity (principal); L97.222 Non-pressure chronic ulcer of left calf with fat layer exposed; L97.521 Non-pressure chronic ulcer of other part of left foot limited to breakdown of skin; L03.116 Cellulitis of left lower limb; I87.2 Venous insufficiency (chronic) (peripheral); C76.2 Malignant neoplasm of abdomen; L20.81 Atopic neurodermatitis | CPT/HCPCS: 99213 ==

== ENCOUNTER 2025-04-08 20:18 | Emergency (ER) | payer OTHER, SELFPAY ==
[2025-04-08 21:09] LABS: Glucose - Point of Care 76 mg/dl (70-99)
[2025-04-08 21:40] LABS: % Basophils 0.6 % (0-2); % Eosinophils 2.5 % (0-6); % Immature Granulocytes 0.3 % (0-0.5); % Lymphocytes 27.4 % (20.5-51.1); % Monocytes 8.6 % (1.7-9.3); % Neutrophils 60.6 % (42.2-75.2); Absolute Basophils 0.1 10^3/uL (0-0.2); Absolute Eosinophils 0.2 10^3/uL (0-0.7); Absolute Lymphocytes 2.1 10^3/uL (1.2-3.4); Absolute Monocytes 0.7 10^3/uL (0.1-0.6); Absolute Neutrophils 4.7 10^3/uL (1.4-6.5); Hematocrit 35.2 % (39.0-52.0); Hemoglobin 11.4 g/dL (13.0-18.0); Mean Corp Hgb Conc. 32.4 g/dL (33.0-37.0); Mean Corpuscular Hgb 28.1 pg (27.0-31.0); Mean Corpuscular Volume 86.7 fL (80.0-94.0); Mean Platelet Volume 9.8 fL (7.4-10.4); Nucleated Red Blood Cells % 0 % (-); Platelet Count 168 10^3/uL (130-400); Red Blood Cell Count 4.06 10^6/uL (4.70-6.10); Red Cell Dist. Width 14.6 % (11.5-14.5); White Blood Cell Count 7.7 10^3/uL (4.8-10.8)
[2025-04-08 21:53] LABS: APTT 35.2 Sec (23.4-35.0); INR 1.33
[2025-04-08 21:54] LABS: ALT (SGPT) 23 U/L (0-50); AST (SGOT) 40 U/L (17-59); Albumin 3.7 g/dl (3.5-5.0); Alkaline Phosphatase 106 U/L (38-126); Blood Urea Nitrogen 17 mg/dl (9-20); Calcium 8.9 mg/dl (8.4-10.2); Carbon Dioxide 31 mmol/L (22-30); Chloride 110 mmol/L (98-107); Glucose 75 mg/dl (70-99); Potassium 3.7 mmol/L (3.5-5.1); Sodium 142 mmol/L (135-145); Total Bilirubin 0.6 mg/dl (0.2-1.3); Total Protein 6.6 g/dl (6.3-8.2); eGFR > 60.00
--- NOTE | 2025-04-08 22:52 | ED.GENMED ---
History of Present Illness
General
Chief Complaint: Skin Problem
Source: patient, spouse and previous hospital records (Hospitalization March 03 to March 05 for treatment of left lower extremity cellulitis, diabetic wound.)
Exam Limitations: none
Time Seen by Provider: 04/08/25 22:40
Nursing documentation reviewed up to this point in time: agreed with
History of Present Illness
History of Present Illness:
This is a 64-year-old gentleman with history of insulin requiring diabetes, hypertension, nonischemic cardiomyopathy, hyperlipidemia, A-fib flutter chronically maintained on Xarelto, left foot diabetic wound for which she follows with wound care and
was hospitalized March 03 to March 05 for treatment of left lower extremity cellulitis.
He also has known right shoulder DJD with exacerbation of right shoulder pain over the past several months, has been following with orthopedics and underwent local steroid injection to his shoulder perhaps 2 months ago.
He has been attempting to increase range of motion of his shoulder, has been painting over the past few weeks and attempting to raise his right arm over his head. He denies fall nor definitive injury but does admit to abrupt increased pain to right
shoulder beginning 2 weeks ago.
Approximately 1 to 2 weeks ago he noticed bruising right anterior upper arm that has now progressed to dark purple bruising along his left anterior bicep and region. He denies numbness and or tingling, denies weakness, no fever no chills. He
denies bleeding gums, denies hematochezia, denies hematuria. He denies dizziness nor lightheadedness. No chest pain or coughing or shortness of breath.
Noted to have poorly controlled diabetes with hemoglobin A1c of 22 December of this year, markedly improved with most recent hemoglobin A1c of 6.8 2 days ago.
Past History
Past History
ED Past Medical History: Arrthythmia (A-fib flutter), CHF (Nonischemic cardiomyopathy), HTN, Hypercholesterolemia, IDDM, Other (Left lower extremity diabetic foot wound, cellulitis left lower extremity, osteoarthritis of right shoulder) and Other
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
ED Past Surgical History: Other (Noncontributory)
Social History
Tobacco: Non-smoker
Alcohol: None
Drug: None
Personal:
Living: with family
Employment: Not employed
Family History
Family History: Other (Noncontributory)
Phy Exam
Physical Exam
Physical Exam:
GENERAL: 64-year-old gentleman appears somewhat older than stated age, awake and alert, pleasant, appears in no acute distress. is accompanying.
EYE: anicteric
NECK: Supple, nontender, no meningismus, no significant adenopathy.
ENT: oral mucosa is moist. No rhinorrhea.
CARDIAC: Regular rate and rhythm. no murmur.
LUNGS: Clear breath sounds bilaterally, no acute respiratory distress, no wheezes/rales/rhonchi
ABDOMEN: Rotund, soft, nondistended, without focal tenderness
NEUROLOGICAL: Alert and oriented x3, no focal neuro deficits. Gait is steady.
SKIN: Warm and dry, normal color, good turgor.
MUSCULOSKELETAL: Compression wraps bilateral lower extremities. Chronic appearing skin thickening with mild hyperkeratosis bilateral anterior knees. Right upper arm with dark purple ecchymosis anterior aspect with soft mildly tender hematoma
palpable right anterior upper arm just below the shoulder measuring approximately 3 cm x 2 cm. Dark purple ecchymosis extends anteriorly to just above the antecubital fossa. There is no palpable tenderness nor deformity of the biceps. There is
mild tenderness about the shoulder but no joint effusion. Moderately limited range of motion right shoulder which patient states is chronic and unchanged. No crepitus. No palpable heat nor erythema. No axillary adenopathy nor fullness.
Peripheral pulses are full and equal b/l. Hand grasps are full and equal bilaterally. Sensation and strength intact.
PSYCH: Normal and appropriate interaction.
Course
Orders/Labs/Results
Orders:
Orders
04/08/25 21:33
Complete Blood Count/With Diff Urgent
Comprehensive Metabolic Panel Urgent
INR [Prothrombin Time] Urgent
PTT Urgent
Abnormal Lab Results
04/08/25
21:33
RBC 4.06 L 10^6/uL
(4.70-6.10)
Hgb 11.4 L g/dL
(13.0-18.0)
Hct 35.2 L %
(39.0-52.0)
MCHC 32.4 L g/dL
(33.0-37.0)
RDW 14.6 H %
(11.5-14.5)
Absolute Monos (auto) 0.7 H 10^3/uL
(0.1-0.6)
PT 17.0 H Sec
(11.4-14.6)
APTT 35.2 H Sec
(23.4-35.0)
Chloride 110 H mmol/L
(98-107)
Carbon Dioxide 31 H mmol/L
(22-30)
04/08/25 21:33
04/08/25 21:33
MDM/Problems Addressed
Differential Diagnosis Includes:
Subacute hematoma right upper arm.
No insightful injury but patient does admit to increased right shoulder pain beginning 2 weeks ago and has been more active, painting, attempting to raise his arm over his head.
Exam remarkable for soft tissue hematoma right upper anterior arm just distal to the shoulder with dark purple ecchymosis anterior upper arm that appears to be tracking distally via gravity.
No palpable deformity of bicep muscle, no weakness, remains neurovascularly intact.
There is no significant soft tissue swelling, no tenseness, no joint effusion nor joint swelling.
Labs are reassuring with mild but stable anemia.
Blood sugar 75, markedly improved from several months ago and patient reports recent hemoglobin A1c yesterday of 6.8.
He has not had a fever, there is no erythema, nothing to suggest cellulitis.
With no history of trauma, known DJD of right shoulder, at this point no indication for imaging.
He reports right shoulder steroid injection by orthopedics but most recent injection 2 months ago likely not causative factor.
Recommend supportive measures, local heat, elevation with plan for follow-up with PCP as well as continued follow-up with orthopedics.
Return precautions discussed.
Chronic conditions affecting care: DM, HTN, Cardiomyopathy, Arrhythmia (A-fib/flutter-maintained on Xarelto) and Other (Right shoulder DJD)
*Critical Care Note
Total Time (30-74mins, 75-104mins- exclusive of procedures): Not Applicable
ED Attending Note
-
Portions of this chart may have been created with voice recognition software.� Occasional wrong word or��sound alike� substitutions may have occurred due to the inherent limitations of voice recognition software.
Discharge Plan
Departure
Patient Disposition: Home (Routine Discharge)
Date of Disposition: 04/08/25
Time of Disposition: 22:52
Patient with high blood pressure during this ER visit?: No
Condition: Good
Discharge Problem:
subacute hematoma right upper arm
Instructions: Taking care of bruises, Hematoma
Prescriptions:
No Action
buprenorphine-naloxone [Suboxone] 4-1 mg Film
1 film BUCCAL DAILY
Rx Instructions:
patient takes mid morning/afternoon
atorvastatin 40 MG tablet
40 mg PO HS
Xarelto 20 mg Tablet
20 mg PO QPM Qty: 30 1RF
metoprolol succinate 50 mg tablet extended release 24 hr
100 mg PO DAILY
amiodarone 200 mg Tablet
200 mg PO DAILY
sennosides [Gia-alecia] 8.6 mg tablet
8.6 mg PO BID
insulin aspart U-100 [Novolog FlexPen U-100 Insulin] 100 unit/mL (3 mL) insulin pen
20 sliding scale dose SC AC
insulin glargine [Lantus Solostar U-100 Insulin] 100 unit/mL (3 mL) insulin pen
24 unit SC DAILY
Linzess 290 mcg capsule
290 mcg PO DAILY
furosemide [Lasix] 40 mg Tablet
40 mg PO QPM
spironolactone 25 mg Tablet
25 mg PO DAILY
miconazole nitrate [Miconazorb AF] 2 % Powder
1 applic topical BID Qty: 85 0RF
Rx Instructions:
1 APPLICATION TO abdominal folds, affected areas.
white petrolatum [Hydrophor] 42 % Ointment
1 applic topical BID Qty: 100 0RF
Rx Instructions:
1 APPLICATION TO dry skin to lower extremities.
cephalexin 500 mg capsule
500 mg PO Q6H 7 Days Qty: 28 0RF
Referrals:
Shankar Mena MD [Active, Internal Medicine] - Call in 1-3 days for appt
Interventions
Interventions:
*Risk Screen - Suicide Last Done: 04/08/25 20:21
*General Assessment Last Done: 04/08/25 21:14
*Neglect/Abuse Screening Last Done: 04/08/25 20:21
*ED- Fall Risk Assessment Last Done: 04/08/25 21:14
Discharge Date and Time
Print Language: BURMESE
== END 2025-04-08 23:08 | disposition home or self-care (01) ==
LOC: EMR 20:18
PROVIDERS: Student in an Organized Health Care Education/Training Program; EMERGENCY PHYSICIAN Emergency Medicine; FAMILY PHYSICIAN Internal Medicine
DX: S40.021A Contusion of right upper arm, initial encounter (principal); X58.XXXA Exposure to other specified factors, initial encounter; L03.116 Cellulitis of left lower limb; E11.9 Type 2 diabetes mellitus without complications; E78.00 Pure hypercholesterolemia, unspecified; I11.0 Hypertensive heart disease with heart failure; I50.9 Heart failure, unspecified; I48.91 Unspecified atrial fibrillation; M19.011 Primary osteoarthritis, right shoulder; Z79.01 Long term (current) use of anticoagulants
CPT/HCPCS: 99283; 80053; 82962; 85025; 85610; 85730

== ENCOUNTER → 2025-04-14 14:59 | Outpatient (REF) | payer OTHER, SELFPAY | LOC: WOUND 14:59 | PROVIDERS: ATTENDING PHYSICIAN Surgery; FAMILY PHYSICIAN Internal Medicine | DX: I87.313 Chronic venous hypertension (idiopathic) with ulcer of bilateral lower extremity (principal); L97.222 Non-pressure chronic ulcer of left calf with fat layer exposed; L97.521 Non-pressure chronic ulcer of other part of left foot limited to breakdown of skin; I87.2 Venous insufficiency (chronic) (peripheral); C76.2 Malignant neoplasm of abdomen; L20.81 Atopic neurodermatitis | CPT/HCPCS: 99213 ==

== ENCOUNTER → 2025-04-28 13:59 | Outpatient (REF) | payer OTHER, SELFPAY | LOC: HWRCS 13:59 | PROVIDERS: ATTENDING PHYSICIAN Internal Medicine Cardiovascular Disease; FAMILY PHYSICIAN Internal Medicine | DX: I50.20 Unspecified systolic (congestive) heart failure (principal); I48.3 Typical atrial flutter | CPT/HCPCS: 93306 ==

== ENCOUNTER 2025-05-18 20:59 | Inpatient (IN) | payer OTHER, SELFPAY ==
[2025-05-18] VITALS (7 sets, daily range): BP systolic 91–128; BP diastolic 57–78; BMI 43.2
[2025-05-18 13:15] LABS: Hematocrit 39.3 % (39.0-52.0); Hemoglobin 12.7 g/dL (13.0-18.0); Mean Corp Hgb Conc. 32.3 g/dL (33.0-37.0); Mean Corpuscular Volume 81.5 fL (80.0-94.0); Nucleated Red Blood Cells % 0 % (-); Platelet Count 223 10^3/uL (130-400); Red Cell Dist. Width 14.2 % (11.5-14.5)
[2025-05-18 13:42] LABS: ALT (SGPT) 11 U/L (0-50); AST (SGOT) 19 U/L (17-59); Albumin 4.4 g/dl (3.5-5.0); Alkaline Phosphatase 115 U/L (38-126); Blood Urea Nitrogen 25 mg/dl (9-20); Calcium 9.8 mg/dl (8.4-10.2); Carbon Dioxide 26 mmol/L (22-30); Chloride 99 mmol/L (98-107); Glucose 102 mg/dl (70-99); Potassium 4.8 mmol/L (3.5-5.1); Sodium 135 mmol/L (135-145); Total Protein 8.2 g/dl (6.3-8.2); eGFR > 60.00
--- NOTE | 2025-05-18 15:39 | ED.GENMED ---
History of Present Illness
<Tommie Hassan MD, Resident - Last Filed: 05/18/25 18:47>
General
Chief Complaint: Bowel Problem
Source: patient
Exam Limitations: none
Time Seen by Provider: 05/18/25 15:16
History of Present Illness
History of Present Illness:
This is a 64-year-old male with history of insulin-dependent diabetes, hypertension, nonischemic cardiomyopathy, hyperlipidemia, A-fib/flutter chronically maintained on Xarelto, chronic pain, BPH, ERASMO, left foot diabetic wound which she follows with
wound care. History of right shoulder DJD. History of right renal mass, presenting in the emergency department with complaints of constipation and abdominal distention with last bowel movement almost 5 weeks ago.
He denies any fevers or chills, denies nausea or vomiting, denies any recent changes in medical history except mentioned here.
He was hospitalized for similar complaints back in December 2024. When the CT of the abdomen/pelvis was performed and it revealed distention of sigmoid colon without volvulus and clipping of cecum with elongated and tortuous with possible
displacement of distended sigmoid. There was incidental finding of right renal mass and enlarged lymph node with concern of neoplastic process. Colorectal surgery was consulted at that time and he had a flexible sigmoidoscopy which showed sigmoid
was distended however there was no obvious obstruction/active volvulus. Patient was noted to have colonic ileus with possible pseudoobstruction. He was initially given aggressive bowel regimen which did not help and eventually he was transferred
to ICU and received neostigmine which provided benefit and later patient was discharged. Patient was advised for outpatient workup as there was concern of renal cell carcinoma and concern for lymphoma.
He has an appointment to see GI, Dr. Harrington tomorrow however he was in very much discomfort which prompted him to visit the emergency room.
Past History
<Tommie Hassan MD, Resident - Last Filed: 05/18/25 18:47>
Past History
ED Past Medical History: Arrthythmia (A-fib flutter), CHF (Nonischemic cardiomyopathy), HTN, Hypercholesterolemia, IDDM, Other (Left lower extremity diabetic foot wound, cellulitis left lower extremity, osteoarthritis of right shoulder) and Other
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
ED Past Surgical History: Other (Noncontributory)
Patient has exhibited threatening behavior?: No
Social History
Tobacco: Non-smoker
Alcohol: None
Drug: None
Personal:
Living: with family
Employment: Not employed
Family History
Family History: Other (Noncontributory)
Review of Systems
<Tommie Hassan MD, Resident - Last Filed: 05/18/25 18:47>
Review of Systems
Allergies reviewed?: Yes
Constitutional: Denies fever or chills
Respiratory: Denies cough
Cardiac: Denies chest pain
ABD/GI: Reports abdominal pain, constipated and anorexia; Denies nausea, vomiting or diarrhea
: Denies dysuria or frequency
Musculoskeletal: Denies joint pain or joint swelling
Neurological: Denies headache
Endocrine: Denies polyuria
Phy Exam
<Tommie Hassan MD, Resident - Last Filed: 05/18/25 18:47>
General Physical Exam
General Presentation: mild distress
General age: appears older than age
General Skin: warm
General Habitus: obese
Cardiovascular Exam
Cardiovascular Exam: regular rate/rhythm and no murmur
Pulmonary Exam
Pulmonary Exam: lungs clear and no crackles
Gastrointestinal Exam
Gastrointestinal Exam: non tender, no pulsatile mass, no cva tenderness and distended
Psychiatric Exam
Psychiatric Exam: normal mood/affect
Course
<Tommie Hassan MD, Resident - Last Filed: 05/18/25 18:47>
Orders/Labs/Results
Orders:
Orders
05/18/25 12:57
IV Insert/Care/Rem.- Treatment PRN
05/18/25 13:05
Complete Blood Count/With Diff Urgent
Comprehensive Metabolic Panel Urgent
05/18/25 15:38
CT Abd/pelvis W Iv Cont Urgent
Comment:
Reason For Exam: Abdominal distension/pain. hx of renal mass
05/18/25 18:22
Enema- Treatment ONCE
Type: Tap Water
0.9% Sodium Chloride 1000 ml [Nss] 1,000 ml IV BOLUS
Magnesium Citrate [Citroma] 300 ml PO ONCE ONE
Abnormal Lab Results
05/18/25
13:05
Hgb 12.7 L g/dL
(13.0-18.0)
MCH 26.3 L pg
(27.0-31.0)
MCHC 32.3 L g/dL
(33.0-37.0)
Absolute Monos (auto) 0.7 H 10^3/uL
(0.1-0.6)
BUN 25 H mg/dl
(9-20)
Glucose 102 H mg/dl
(70-99)
05/18/25 13:05
05/18/25 13:05
Vital Signs
Initial and Last Documented VS:
Initial Vital Signs
Temp Pulse Resp BP Pulse Ox
98 F 74 16 128/78 94
05/18/25 12:55 05/18/25 12:55 05/18/25 12:55 05/18/25 12:55 05/18/25 12:55
Last Documented Vital Signs
Temp Pulse Resp BP Pulse Ox
97.7 F 56 16 125/76 95
05/18/25 18:00 05/18/25 18:00 05/18/25 18:00 05/18/25 18:00 05/18/25 18:00
juan luis;Samm Mota, DO - Last Filed: 05/18/25 18:25>
Orders/Labs/Results
Orders:
Orders
05/18/25 12:57
IV Insert/Care/Rem.- Treatment PRN
05/18/25 13:05
Complete Blood Count/With Diff Urgent
Comprehensive Metabolic Panel Urgent
05/18/25 15:38
CT Abd/pelvis W Iv Cont Urgent
Comment:
Reason For Exam: Abdominal distension/pain. hx of renal mass
05/18/25 18:22
Enema- Treatment ONCE
Type: Tap Water
0.9% Sodium Chloride 1000 ml [Nss] 1,000 ml IV BOLUS
Magnesium Citrate [Citroma] 300 ml PO ONCE ONE
Abnormal Lab Results
05/18/25
13:05
Hgb 12.7 L g/dL
(13.0-18.0)
MCH 26.3 L pg
(27.0-31.0)
MCHC 32.3 L g/dL
(33.0-37.0)
Absolute Monos (auto) 0.7 H 10^3/uL
(0.1-0.6)
BUN 25 H mg/dl
(9-20)
Glucose 102 H mg/dl
(70-99)
05/18/25 13:05
05/18/25 13:05
Vital Signs
Initial and Last Documented VS:
Initial Vital Signs
Temp Pulse Resp BP Pulse Ox
98 F 74 16 128/78 94
05/18/25 12:55 05/18/25 12:55 05/18/25 12:55 05/18/25 12:55 05/18/25 12:55
Last Documented Vital Signs
Temp Pulse Resp BP Pulse Ox
97.7 F 56 16 125/76 95
05/18/25 18:00 05/18/25 18:00 05/18/25 18:00 05/18/25 18:00 05/18/25 18:00
<Tommie Hassan MD, Resident - Last Filed: 05/18/25 18:47>
MDM/Problems Addressed
Differential Diagnosis Includes:
bowel obstruction vs [place]'s syndrome vs volvulus vs stercoral colitis vs metastatic disease.
MDM/Problems Addressed:
CBC unremarkable
CMP with mild elevation of BUN
Patient's vitals are stable at this time.
Will obtain CT abdomen/pelvis with IV contrast
CT showed There is severe distention of the redundant sigmoid colon with a severe stool burden. This measures up to 13.1 cm. The pelvis is not well evaluated secondary to streak artifact, as such a distal small bowel obstruction cannot be excluded.
There are areas of mild wall thickening associated with the large stool burden for which an element of stercoral colitis possible.
There is similar appearance of the 1.8 cm enhancing lesion in the mid/upper pole the right kidney which likely represents a neoplasm.
There are mildly prominent pelvic sidewall and inguinal lymph nodes as well as retroperitoneal lymph nodes along the distal aorta, however these do appear similar in size to prior.
Small fat-containing umbilical hernia.
Discussed with GI and colorectal; will admit the patient for further evaluation.
Will give magnesium citrate and normal saline bolus in the ER
<Tommie Hassan MD, Resident - Last Filed: 05/18/25 18:47>
*Pulse Oximetry
SaO2: 94
Oxygen Mode of Delivery: Room air
Patient hypoxic: no
*Critical Care Note
Total Time (30-74mins, 75-104mins- exclusive of procedures): Not Applicable
ED Attending Note
<Tommie Hassan MD, Resident - Last Filed: 05/18/25 18:47>
-
Portions of this chart may have been created with voice recognition software.� Occasional wrong word or��sound alike� substitutions may have occurred due to the inherent limitations of voice recognition software.
<Samm Mota, DO - Last Filed: 05/18/25 18:25>
ED Attending Note
Patient seen and examined by attending physician: Yes
I performed a history and physical exam of patient and discussed management with resident, I reviewed resident's note and agree with documented findings and plan of care.: Yes
ED Attending Note:
Seen with resident examined independently 64-year-old male multiple chronic medical conditions, chronic pain syndrome, on Suboxone and Linzess after an admission for constipation ultimately required 2 doses of neostigmine, had a sigmoidoscope with
colorectal surgery was followed by GI, there apparently was talk of surgery, here he looks chronically ill he is distended, but nontoxic, prior records reviewed x-ray today reviewed he is requesting neostigmine I was debbie with him I had no
experience with that medication start a bowel regimen low threshold to admit the patient
Discharge Plan
Departure
Patient Disposition: Admit
Date of Disposition: 05/18/25
Time of Disposition: 18:45
Admit to: Med/Surg
Presentation/result/management discussed w/ accepting MD/DO: Hospitalist
Patient with high blood pressure during this ER visit?: Yes
Condition: Fair
Discharge Problem:
Constipation, Abdominal distention
Prescriptions:
No Action
buprenorphine-naloxone [Suboxone] 4-1 mg Film
1 film BUCCAL DAILY
Rx Instructions:
patient takes mid morning/afternoon
atorvastatin 40 MG tablet
40 mg PO HS
Xarelto 20 mg Tablet
20 mg PO QPM Qty: 30 1RF
metoprolol succinate 50 mg tablet extended release 24 hr
100 mg PO DAILY
amiodarone 200 mg Tablet
200 mg PO DAILY
sennosides [Gia-alecia] 8.6 mg tablet
8.6 mg PO BID
insulin aspart U-100 [Novolog FlexPen U-100 Insulin] 100 unit/mL (3 mL) insulin pen
20 sliding scale dose SC AC
insulin glargine [Lantus Solostar U-100 Insulin] 100 unit/mL (3 mL) insulin pen
24 unit SC DAILY
Linzess 290 mcg capsule
290 mcg PO DAILY
furosemide [Lasix] 40 mg Tablet
40 mg PO QPM
spironolactone 25 mg Tablet
25 mg PO DAILY
miconazole nitrate [Miconazorb AF] 2 % Powder
1 applic topical BID Qty: 85 0RF
Rx Instructions:
1 APPLICATION TO abdominal folds, affected areas.
white petrolatum [Hydrophor] 42 % Ointment
1 applic topical BID Qty: 100 0RF
Rx Instructions:
1 APPLICATION TO dry skin to lower extremities.
cephalexin 500 mg capsule
500 mg PO Q6H 7 Days Qty: 28 0RF
Referrals:
Shankar Mena MD [Family Provider, Internal Medicine]
Interventions
Interventions:
*Risk Screen - Suicide Last Done: 05/18/25 12:55
*General Assessment Last Done: 05/18/25 12:55
*Neglect/Abuse Screening Last Done: 05/18/25 12:55
*ED- Fall Risk Assessment Last Done: 05/18/25 15:27
*ED COVID-19 Vaccine History Last Done: 05/18/25 15:27
DB-Ndzbwk-Jsietcahsk Assessment Last Done: 05/18/25 15:27
Discharge Date and Time
Print Language: SWEDISH
[2025-05-18] MEDS: NSS 1000 IV (19:00)
--- NOTE | 2025-05-18 19:54 | HPS.HSE ---
Family Physician
-
Family Physician: Shankar Mena
Chief Complaint
-
Constipation
History of Present Illness
Patient is a 64y M with PMH significant for A-Flutter s/p cardioversion, HFrEF, HTN, DM-II and colonic motility dysfunction who presents to ED complaining of constipation x 5 weeks. Patient states that he has been taking laxatives at home
including lactulose and Mg Citrate with no improvement in his symptoms. He was admitted to in December with similar complaints. He was seen by Colorectal Surgery and GI during that visit and required neostigmine administration to alleviate his
constipation / bowel dysfunction.
Patient denies any abdominal pain, rectal pain, N/V. He has been eating / drinking without issues until about 2 days ago. He states that he does continue to pass flatus.
Patient reports that he stopped his Xarelto about 4 days ago in preparation for an upcoming L eye surgery ().
He briefly held his Linzess last week - as he felt this was making his constipation worse / not better - but he has since restarted that medication.
Medical History
Past Medical History
Past Medical History: Reports Other
Additional Past Medical History:
Chronic HFrEF
Paroxysmal Atrial Flutter
Hypertension
DM-II
Obesity
Colonic Inertia / Dysmotility
Chronic Pain Syndrome
Chronic Opioid Dependence
BPH
Past Surgical History: Reports Other
Additional Past Surgical History:
Bilateral ARUNA
Right TKA
DCCV (January 2025)
Social History
Tobacco: Non-smoker
Alcohol: Occasional
Drug: None
Family History
Family History: Not pertinent
Allergies / Home Medications
Allergies reflects when Allergies were last updated in [employer].
Home Medications with original date entered in [employer]
Allergy/Medication List:
Allergies
Allergy/AdvReac Type Severity Reaction Status Date / Time
No Known Allergies Allergy Verified 04/08/25 20:21
Home Medications
atorvastatin 40 mg tablet 40 mg PO HS High Cholesterol 12/24/24
buprenorphine 4 mg-naloxone 1 mg sublingual film (Suboxone) 1 film buccal DAILY Opioid use disorder 12/24/24
amiodarone 200 mg tablet 200 mg PO DAILY Arrhythmia 02/02/25
furosemide 40 mg tablet (Lasix) 40 mg PO QPM Fluid Retention/Swelling 03/03/25
insulin aspart U-100 100 unit/mL (3 mL) subcutaneous pen (Novolog FlexPen U-100 Insulin aspart) 20 sliding scale dose SC AC Diabetes 03/03/25
insulin glargine 100 unit/mL (3 mL) subcutaneous pen (Lantus Solostar U-100 Insulin) 24 unit SC DAILY Diabetes 03/03/25
linaclotide 290 mcg capsule (Linzess) 290 mcg PO DAILY Constipation 03/03/25
spironolactone 25 mg tablet 25 mg PO DAILY Blood Pressure 03/03/25
Metamucil 2 tbsp PO ONCE PRN constipation 05/18/25
acetaminophen 500 mg tablet (Tylenol Extra Strength) 1,000 mg PO BIDPRN PRN mild pain 05/18/25
lactulose 10 gram/15 mL oral solution 15 - 30 ml PO BIDPRN PRN constipation 05/18/25
lidocaine 1.8 % topical patch (ZTlido) 1 patch topical DAILYPRN PRN upper right arm/shoulder 05/18/25
magnesium citrate 10.5 oz PO Q2HPRN PRN constipation 05/18/25
metoprolol succinate 100 mg tablet,extended release 24 hr 100 mg PO HS 05/18/25
rivaroxaban 20 mg tablet (Xarelto) 20 mg PO HS 05/18/25
white petrolatum 42 % topical ointment (Hydrophor) 1 applic topical DAILYPRN PRN apply to B/L legs & feet 05/18/25
Review of Systems
-
History Source: Patient
A 12 point ROS was completed and negative except as noted: Yes
Constitutional: Denies Fever or Chills
EENT: Denies Sore Throat
Respiratory: Denies Cough or Trouble Breathing
Cardiac: Denies Chest Pain or Palpitations
Abdomen/GI: Reports Constipated; Denies Abdominal Pain, Nausea, Vomiting, Bloody Stools or Black Stools
: Denies Dysuria, Frequency or Flank Pain
Musculoskeletal: Reports Edema
Neurological: Denies Dizzy or Headache
Psych: Denies Depression or Anxiety
Physical Exam
Vital Signs
Vital Signs
Temp Pulse Resp BP Pulse Ox
97.7 F 56 16 125/76 95
05/18/25 18:00 05/18/25 18:00 05/18/25 18:00 05/18/25 18:00 05/18/25 18:00
Physical Exam
General: Other (64y M in no acute distress.)
HEENT: Moist mucous membranes, PERRLA and Other (Fatty deposit L eye. No bleeding / erythema / etc.)
Respiratory: Other (Decreased BS at bases - otherwise clear.)
Cardiac: S1/S2 (Distant S1 S2.); No Murmur
GI: Other (Markedly distended abdomen. Not tender. Bowel sounds are present but diminished. )
Musculoskeletal: No Clubbing and Other (Bilateral LE edema - L > R.)
Neuro: AO x 3
Laboratory Results
-
05/18/25 13:05
05/18/25 13:05
Laboratory Results
Total Bilirubin 1.1 mg/dl (0.2-1.3) 05/18/25 13:05
AST 19 U/L (17-59) 05/18/25 13:05
ALT 11 U/L (0-50) 05/18/25 13:05
Alkaline Phosphatase 115 U/L (38-126) 05/18/25 13:05
Impression/Plan
-
A/P: Patient is a 64y M with PMH significant for HTN, DM-II, CHF and colonic inertia who presents to ED complaininig of constipation x 5 weeks.
Colonic Motility Disorder / Constipation
- Admit to IMU for further evaluation and treatment.
- Trial of enemas, MiraLax, etc overnight - though patient has failed all measures thus far.
- Colorectal Surgery and GI consulted.
- Patient may require repeat neostigmine administration to alleviate symptoms.
- No current pain, N/V, etc.
Acute on Chronic HFrEF
- Patient with increased edema and weight gain from last visit here.
- Admits to intermittent non-compliance with Lasix (when he leaves the house, etc).
- IV Lasix BID for now.
- Follow I/Os, daily weights, etc.
- Echo done 04/2025 with LVEF = 35%.
Paroxysmal Atrial Flutter
- Stable. Maintaining NSR at present s/p cardioversion in January.
- He is currently holding Xarelto in preparation for scheduled L eye surgery on .
- Resume post-op - or sooner if surgery will need to be postponed.
Benign Hypertension
- Stable. Continue current med regimen and adjust as needed.
DM-II
- Stable. Continue basal : bolus insulin regimen.
- Follow glucose and cover with SSI as needed.
- Update A1C.
Chronic Pain Syndrome
Chronic Opioid Dependence
- Continue buprenorphine 4mg daily during inpatient stay.
- Continued attempts to wean opioids should hopefully improve constipation issues.
Obesity due to excess calories
- Affects all aspects of care.
- Encourage health diet and increased activity with goal of weight loss.
DVT Prophylaxis: Lovenox while Xarelto on hold.
Code Status: Full
[2025-05-18] MEDS: LIPITOR 40 MG PO (22:49)
[2025-05-18] MEDS: PACERONE 200 MG PO (22:49)
[2025-05-18] MEDS: TOPROL XL 100 MG PO (22:50)
[2025-05-18] MEDS: SENOKOT 17.2 MG PO (22:50)
[2025-05-18 23:01] LABS: Glucose - Point of Care 144 mg/dl (70-99)
[2025-05-19] VITALS (25 sets, daily range): BP systolic 75–138; BP diastolic 58–79; BMI 42.6
--- NOTE | 2025-05-19 00:30 | PTCARENOTE ---
Pt received from ED RN. Admission questions completed. Pt stood and pivoted to chair, requests to sleep in chair. states he cannot sleep lying flat. Pt took HS pills whole with water. per medication parameters in med order, Pts hs dose of Aldactone
not admin. states hold for SBP <110, pts BP at time of admin 108/60. Pt denies abdominal pain at this time. abdomen round and distended. Assessment as documented. call light in reach.
[2025-05-19 06:01] LABS: Hematocrit 36.7 % (39.0-52.0); Hemoglobin 12.0 g/dL (13.0-18.0); Mean Corp Hgb Conc. 32.7 g/dL (33.0-37.0); Mean Corpuscular Volume 81.9 fL (80.0-94.0); Platelet Count 200 10^3/uL (130-400); Red Cell Dist. Width 14.4 % (11.5-14.5)
[2025-05-19 06:45] LABS: Blood Urea Nitrogen 24 mg/dl (9-20); Calcium 9.3 mg/dl (8.4-10.2); Carbon Dioxide 28 mmol/L (22-30); Chloride 100 mmol/L (98-107); Estimated Creatinine Clearance > 125 ml/min; Glucose 106 mg/dl (70-99); Potassium 4.8 mmol/L (3.5-5.1); Sodium 135 mmol/L (135-145); eGFR > 60.00
[2025-05-19 07:45] LABS: Glucose - Point of Care 133 mg/dl (70-99)
[2025-05-19] MEDS: NOVOLOG FLEXPEN-MODERATE RESISTANCE SC ×2 (08:46→16:32)
[2025-05-19] MEDS: LASIX 40 MG IV ×2 (08:47→18:30)
[2025-05-19] MEDS: MIRALAX 17 GRAMS PO ×2 (08:47→20:46)
[2025-05-19] MEDS: LANTUS 0.2 UNITS SC (08:48)
--- NOTE | 2025-05-19 09:15 | CON.ONC ---
Consultation
-
Date Consultation Requested: 05/19/25
Date Consultation Performed: 05/19/25
Requesting Provider: Dr. Bonifacio Burns
Performing Provider: Dr. Zahra James
Reason for Consultation: Renal mass/adenopathy
Impression
Impression
64yo M p/w constipation
1.8 cm enhancing lesion in the mid/upper pole the right kidney
mildly prominent pelvic sidewall and inguinal lymph nodes as well as retroperitoneal lymph nodes along the distal aorta
Plan
Plan
constipation per primary service -GI and colorectal surgery consults pending
follow up with urology to consider intervention and work up for right renal mass
unclear if adenopathy is reactive to constipation -US ordered for further evaluation
Pt has OP follow up with Dr. Vega 06/18/2025
Patient History
History of Present Illness
64yo M presented with severe constipation. He reports that he has not moved his bowels in 5 weeks. He denies any nausea, vomiting, weight loss, or changes in appetite. He does not increased abdominal distention. His initial evaluation was notable
for WBC 9.9, Hgb 12.7, 223,000, BUN 25, Creatinine 0.9, and normal LFTs. CT ab/pelvis showed severe distention of the redundant sigmoid colon with a severe stool burden, similar appearance of the 1.8 cm enhancing lesion in the mid/upper pole the
right kidney, and stable mildly prominent pelvic sidewall and inguinal lymph nodes as well as retroperitoneal lymph nodes along the distal aorta.
Medical oncology was consulted for right renal mass, pelvic wall and inguinal/RP LN. He had been evaluated in the office by Dr. Vega in February 2025 for these findings and recommended to follow up with urology and plan to repeat imaging in
June 2025.
Clincally, he denies fever, chills, cough, sob, jimenez, chest pain, dizziness. Chronic lower extremity edema at baseline. He has not moved his bowels since admission.
Past-Medical/Surgical History
PMH
Chronic HFrEF
Paroxysmal Atrial Flutter
Hypertension
DM-II
Obesity
Colonic Inertia / Dysmotility
Chronic Pain Syndrome
Chronic Opioid Dependence
BPH
PSH
Bilateral ARUNA
Right TKA
DCCV (January 2025)
Social non-smoker, rare ETOH, denies ETOH or recreational drugs. . 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
Family: pt does not know famiy hx
Patient Medication
�Medication �Instructions �Recorded �Confirmed �Last Taken �Type
atorvastatin 40 mg tablet 40 mg PO HS High Cholesterol 12/24/24 05/18/25 05/17/25 History
buprenorphine 4 mg-naloxone 1 mg 1 film buccal DAILY Opioid use 12/24/24 05/18/25 05/18/25 History
sublingual film (Suboxone) disorder
amiodarone 200 mg tablet 200 mg PO HS Arrhythmia 02/02/25 05/18/25 05/17/25 History
furosemide 40 mg tablet (Lasix) 40 mg PO .SEE BELOW fluid 03/03/25 05/18/25 1 Week Ago History
retention/swelling ~05/11/25
insulin aspart U-100 100 unit/mL 20 sliding scale dose SC AC 03/03/25 05/18/25 05/18/25 History
(3 mL) subcutaneous pen (Novolog Diabetes 18 units
FlexPen U-100 Insulin aspart)
insulin glargine 100 unit/mL (3 24 unit SC DAILY Diabetes 03/03/25 05/18/25 05/18/25 History
mL) subcutaneous pen (Lantus
Solostar U-100 Insulin)
linaclotide 290 mcg capsule 290 mcg PO DAILY Constipation 03/03/25 05/18/25 05/18/25 History
(Linzess)
spironolactone 25 mg tablet 25 mg PO HS Blood Pressure 03/03/25 05/18/25 05/17/25 History
Metamucil 2 tbsp PO ONCE PRN constipation 05/18/25 05/18/25 3 Days Ago History
~05/15/25
acetaminophen 500 mg tablet 1,000 mg PO BIDPRN PRN mild pain 05/18/25 05/18/25 1 Week Ago History
(Tylenol Extra Strength) ~05/11/25
lactulose 10 gram/15 mL oral 15 - 30 ml PO BIDPRN PRN 05/18/25 05/18/25 2 Days Ago History
solution constipation ~05/16/25
lidocaine 1.8 % topical patch 1 patch topical DAILYPRN PRN upper 05/18/25 05/18/25 05/18/25 History
(ZTlido) right arm/shoulder
magnesium citrate 10.5 oz PO Q2HPRN PRN constipation 05/18/25 05/18/25 2 Days Ago History
~05/16/25
metoprolol succinate 100 mg 100 mg PO HS 05/18/25 05/18/25 05/17/25 History
tablet,extended release 24 hr
rivaroxaban 20 mg tablet (Xarelto) 20 mg PO HS 05/18/25 05/18/25 05/17/25 History
white petrolatum 42 % topical 1 applic topical DAILYPRN PRN 05/18/25 05/18/25 05/18/25 History
ointment (Hydrophor) apply to B/L legs & feet
Active Medications
Generic Name Dose Route Start Last Admin
Trade Name Freq PRN Reason Stop Dose Admin
Acetaminophen 650 mg 05/18/25 21:49
Acetaminophen 325 Mg Tablet PO 06/15/25 21:48
Q4HPRN PRN
Mild Pain / Temp > 101
Amiodarone HCl 200 mg 05/18/25 22:00 05/18/25 22:49
Amiodarone 200 Mg Tablet PO 06/15/25 21:59 200 mg
HS JASBIR Administration
Atorvastatin Calcium 40 mg 05/18/25 22:00 05/18/25 22:49
Atorvastatin (Lipitor) 40 Mg Tablet PO 06/15/25 21:59 40 mg
HS JASBIR Administration
Buprenorphine 4 mg 05/19/25 10:00
Buprenorphine 2 Mg Sl Tablet SL 06/02/25 09:59
DAILY@1000 JASBIR
Dextrose 12.5 grams 05/18/25 21:49
Dextrose 50% (0.5 Grams/Ml) 50 Ml Syringe IV 06/15/25 21:48
[id number] PRN
hypoglycemia
Protocol
Enoxaparin Sodium 40 mg 05/19/25 08:00 05/19/25 08:47
Enoxaparin Sodium 40 Mg/0.4 Ml Syringe SC 06/16/25 07:59 Not Given
Q12 JASBIR
Furosemide 40 mg 05/19/25 08:00 07 08:47
Furosemide 40 Mg (10 Mg/Ml) 4 Ml Vial IV 06/16/25 07:59 40 mg
BID AT 0800,1600 JASBIR Administration
Glucagon 1 mg 05/18/25 21:49
Glucagon 1 Mg Vial IM 06/15/25 21:48
PRN PRN
hypoglycemia
Protocol
Insulin Glargine 20 units/ 0.2 mls @ 0 mls/hr 05/19/25 08:00 05/19/25 08:48
Device SC 06/16/25 07:59 0.2 mls
DAILY JASBIR Administration
As Directed
Insulin Aspart 0 units 05/19/25 07:30 05/19/25 08:46
Insulin Aspart Moderate Resistance 300 Units/3 Ml Pen.Injctr SC 06/16/25 07:29 Not Given
AC JASBIR
Protocol
Linaclotide 290 mcg 05/19/25 08:00
Linaclotide 290 Mcg Capsule PO 06/16/25 07:59
DAILY JASBIR
Metoprolol Succinate 100 mg 05/18/25 22:00 05/18/25 22:50
Metoprolol 100 Mg Extended Release Tablet PO 06/15/25 21:59 100 mg
HS JASBIR Administration
Polyethylene Glycol 17 grams 05/19/25 08:00 05/19/25 08:47
Polyethylene Glycol Powder 17 Grams Packet PO 06/16/25 07:59 17 grams
BID JASBIR Administration
Sodium Chloride 0 flush 05/18/25 22:00
Sodium Chloride 0.9% (Flush) Syringe IV 06/15/25 21:59
PER PROTOCOL JASBIR
Spironolactone 25 mg 05/18/25 22:00 05/18/25 22:50
Spironolactone 25 Mg Tablet PO 06/15/25 21:59 Not Given
HS JASBIR
Review of Systems
-
ROS is notable for HPI, otherwise negative
Physical Exam
-
General: No Apparent Distress
HEENT: Moist Mucous Membranes; Negative Jaundice
Cardiology: Normal Sinus Rhythm
Pulmonary: Clear
GI: Soft, Distended and Other (obese)
Extremities: Edema (b/l LE edema, adin wraps in place)
Neurology: Non Focal
Skin: Warm
Psych: Calm
Labs
Lab Results
WBC 7.5 10^3/uL (4.8-10.8) 05/19/25 05:50
RBC 4.48 10^6/uL (4.70-6.10) L 05/19/25 05:50
Hgb 12.0 g/dL (13.0-18.0) L 05/19/25 05:50
Hct 36.7 % (39.0-52.0) L 05/19/25 05:50
MCV 81.9 fL (80.0-94.0) 05/19/25 05:50
MCH 26.8 pg (27.0-31.0) L 05/19/25 05:50
MCHC 32.7 g/dL (33.0-37.0) L 05/19/25 05:50
RDW 14.4 % (11.5-14.5) 05/19/25 05:50
Plt Count 200 10^3/uL (130-400) 05/19/25 05:50
MPV 9.5 fL (7.4-10.4) 05/19/25 05:50
Abs Immat Gran (auto) 0.0 10^3/uL (0-0.05) 05/18/25 13:05
Absolute Neuts (auto) 6.5 10^3/uL (1.4-6.5) 05/18/25 13:05
Absolute Lymphs (auto) 2.4 10^3/uL (1.2-3.4) 05/18/25 13:05
Absolute Monos (auto) 0.7 10^3/uL (0.1-0.6) H 05/18/25 13:05
Absolute Eos (auto) 0.2 10^3/uL (0-0.7) 05/18/25 13:05
Absolute Basos (auto) 0.1 10^3/uL (0-0.2) 05/18/25 13:05
Immature Gran % 0.3 % (0-0.5) 05/18/25 13:05
Neutrophils % 65.7 % (42.2-75.2) 05/18/25 13:05
Lymphocytes % 24.4 % (20.5-51.1) 05/18/25 13:05
Monocytes % 7.3 % (1.7-9.3) 05/18/25 13:05
Eosinophils % 1.6 % (0-6) 05/18/25 13:05
Basophils % 0.7 % (0-2) 05/18/25 13:05
Creatinine 0.8 mg/dL (0.7-1.3) 05/19/25 05:50
Vital Signs
Vital Signs
Temp Pulse Resp BP Pulse Ox
97.7 F 60 16 108/60 92
05/19/25 07:08 05/18/25 22:50 05/18/25 18:00 05/18/25 22:50 05/19/25 03:22
--- NOTE | 2025-05-19 09:23 | CON.GI ---
Addendum entered and electronically signed by Dael Sanders MD 05/19/25 10:37:
I saw and evaluated the patient. I reviewed the resident�s note and agree with findings and plan as documented in the resident�s note.
64yo male with lifelong constipation, on chronic narcotics, recently admitted in December with colonic ileus, mostly distended in L colon. Limited flex sig was done which did not demonstrate volvulus. Multiple bowel regimens were tried but
ultimately responded to neostigmine given twice. He was also treated with aflutter and surgery was considered too high risk at that time. Since then he had been managing fairly well without flare ups of constipation until last several weeks. No
BM x 5 weeks, but still passing gas. He did not find Linzess was helpful so he stopped it briefly. CT this admission shows severe distention of redundant sigmoid with severe stool burden with element of stercoral colitis.
REC:
Will give neostigmine 2mg IV since it ultimately was effective last time after multiple other bowel regimens
Hold beta deanna
Will need to optimize bowel regimen as outpt- Linzess, possibly in combination with other agents, movantik, relistor. If fails medical therapy may need to reconsider elective sigmoidectomy
Also should have colonoscopy as he has never had one. He wishes to make appt for eye surgery as xarelto is on hold and difficult to get appt
Original Note:
Consultation
-
Date/Time Consultation Requested: 05/18/25
Date/Time Consultation Performed: 05/18/25
Medical History
Chief Complaint / HPI
Chief Complaint: Constipation
History of Present Illness:
Patient is a 64-year-old male, who presented to the ER with complaints of constipation for 5 weeks. As per the patient, since his childhood he has had issues with passing stool and would have a bowel movement a week, sometimes even in 2 weeks. He
was admitted for constipation issues last time in December 2024. At that time multiple bowel regimens were tried including MiraLAX Colace, magnesium citrate, and a months, suppositories, Linzess and then he eventually responded to neostigmine and
was discharged on bowel regimen and Linzess. He was doing well with it along with his normal regular diet but when he did not had a bowel movement in 2 weeks he became worried, he tried to treat it with multiple doses of magnesium citrate, and
[id number] bowel regimen but nothing worked. He called the office and was directed that if he feels that he is not able to pass gas, has abdominal pain or other warning signs he must go to the ER. Since his appointment was not available any
sooner he decided to go to the ER where an abdominal CT was done that showed severe stool burden and dilatation of sigmoid colon measuring up to 13.1 cm. He is able to pass gas on and off, denies any abdominal pain, nausea, vomiting, fevers,
chills, or any other issues. He has been eating a regular diet at home
Patient has scheduled an eye surgery on his left eye for pterygiums/retinal detachment. His Xarelto is on hold for the procedure on .
He also said that trying to strain to pass stool he had some nosebleed and after stopping the Xarelto he had no further bleeding. Heart rate is well-controlled with amiodarone and metoprolol.
Past Medical History
Past Medical History: Arrhythmias (Atrial flutter s/p cardioversion), CHF, HTN, NIDDM and Other (Colonic motility dysfunction/colonic inertia, morbid obesity, chronic opioid dependence due to chronic pain syndrome, BPH)
Past Surgical History: Cardiac (Direct cardioversion January 2025 for atrial flutter) and Orthopedic (Bilateral total hip replacement, right knee replacement)
Social History
Tobacco: Non-Smoker
Alcohol: Occasional
Drug: Other (On Suboxone 4 mg therapy for chronic opioid dependence)
Personal:
Living: With Family ( and 2 children who are in college)
Family History
Family History: Reviewed & Not Pertinent
Allergies / Home Medications
Allergy/AdvReac Type Severity Reaction Status Date / Time
No Known Allergies Allergy Verified 04/08/25 20:21
�Medication �Instructions �Recorded
atorvastatin 40 mg tablet 40 mg PO HS High Cholesterol 12/24/24
buprenorphine 4 mg-naloxone 1 mg 1 film buccal DAILY Opioid use 12/24/24
sublingual film (Suboxone) disorder
amiodarone 200 mg tablet 200 mg PO HS Arrhythmia 02/02/25
furosemide 40 mg tablet (Lasix) 40 mg PO .SEE BELOW fluid 03/03/25
retention/swelling
insulin aspart U-100 100 unit/mL 20 sliding scale dose SC AC 03/03/25
(3 mL) subcutaneous pen (Novolog Diabetes
FlexPen U-100 Insulin aspart)
insulin glargine 100 unit/mL (3 24 unit SC DAILY Diabetes 03/03/25
mL) subcutaneous pen (Lantus
Solostar U-100 Insulin)
linaclotide 290 mcg capsule 290 mcg PO DAILY Constipation 03/03/25
(Linzess)
spironolactone 25 mg tablet 25 mg PO HS Blood Pressure 03/03/25
Metamucil 2 tbsp PO ONCE PRN constipation 05/18/25
acetaminophen 500 mg tablet 1,000 mg PO BIDPRN PRN mild pain 05/18/25
(Tylenol Extra Strength)
lactulose 10 gram/15 mL oral 15 - 30 ml PO BIDPRN PRN 05/18/25
solution constipation
lidocaine 1.8 % topical patch 1 patch topical DAILYPRN PRN upper 05/18/25
(ZTlido) right arm/shoulder
magnesium citrate 10.5 oz PO Q2HPRN PRN constipation 05/18/25
metoprolol succinate 100 mg 100 mg PO HS 05/18/25
tablet,extended release 24 hr
rivaroxaban 20 mg tablet (Xarelto) 20 mg PO HS 05/18/25
white petrolatum 42 % topical 1 applic topical DAILYPRN PRN 05/18/25
ointment (Hydrophor) apply to B/L legs & feet
Review of Systems
-
All other systems: A 12 pt ROS was Negative except as stated above in HPI
Vital Signs
Temp Pulse Resp BP Pulse Ox
97.7 F 60 16 108/60 92
05/19/25 07:08 05/18/25 22:50 05/18/25 18:00 05/18/25 22:50 05/19/25 03:22
Physical Exam
Exam
General: Well Developed, No Apparent Distress and Comfortable
HEENT: Moist Mucous Membranes
Respiratory: Clear; Negative Wheezes, Rales or Rhonchi
Cardiac: S1/S2 and Regular Rhythm; Negative Murmur or Rub
GI: Non Tender, Distended (Markedly distended, tympanic percussion note and decreased bowel sounds) and Other
Musculoskeletal: Other (Cellulitis of foot, bandage in place)
Skin: Warm and Dry
Neuro: Awake and Nonfocal/Grossly Intact
Psych: Calm
Results
WBC 7.5 10^3/uL (4.8-10.8) 05/19/25 05:50
Hgb 12.0 g/dL (13.0-18.0) L 05/19/25 05:50
Hct 36.7 % (39.0-52.0) L 05/19/25 05:50
MCV 81.9 fL (80.0-94.0) 05/19/25 05:50
Plt Count 200 10^3/uL (130-400) 05/19/25 05:50
Absolute Neuts (auto) 6.5 10^3/uL (1.4-6.5) 05/18/25 13:05
Sodium 135 mmol/L (135-145) 05/19/25 05:50
Potassium 4.8 mmol/L (3.5-5.1) 05/19/25 05:50
Chloride 100 mmol/L (98-107) 05/19/25 05:50
Carbon Dioxide 28 mmol/L (22-30) 05/19/25 05:50
BUN 24 mg/dl (9-20) H 05/19/25 05:50
Creatinine 0.8 mg/dL (0.7-1.3) 05/19/25 05:50
Calcium 9.3 mg/dl (8.4-10.2) 05/19/25 05:50
Total Bilirubin 1.1 mg/dl (0.2-1.3) 05/18/25 13:05
AST 19 U/L (17-59) 05/18/25 13:05
ALT 11 U/L (0-50) 05/18/25 13:05
Alkaline Phosphatase 115 U/L (38-126) 05/18/25 13:05
Diagnostic Image Results:
CT A/P 05/18/2025
IMPRESSION:
There is severe distention of the redundant sigmoid colon with a severe stool burden. This measures up to 13.1 cm. The pelvis is not well evaluated secondary to streak artifact, as such a distal small bowel obstruction cannot be excluded. There are
areas of mild wall thickening associated with the large stool burden for which an element of stercoral colitis possible.
There is similar appearance of the 1.8 cm enhancing lesion in the mid/upper pole the right kidney which likely represents a neoplasm.
There are mildly prominent pelvic sidewall and inguinal lymph nodes as well as retroperitoneal lymph nodes along the distal aorta, however these do appear similar in size to prior.
Small fat-containing umbilical hernia.
Prior GI Procedures:
EGD: None
Colonoscopy: None
Sigmoidoscopy 12/25/2024
Impression: - Preparation of the colon was poor.
- Stool in the recto-sigmoid colon.
- Dilated in the sigmoid colon.
- No specimens collected.
Assessment / Plan
-
Impression
Patient is a 64-year-old male with known past medical history of colonic motility dysfunction/Jose's syndrome who is here for constipation for 5 weeks. Tried bowel regimen, and magnesium citrate along with Linzess. GI consulted for further
recommendations.
Normal serum chemistry
HbA1c 7.1
No leukocytosis
Hemodynamically stable
Markedly distended abdomen/nontender
Assessment/plan
Colon motility dysfunction/[place]'s Syndrome
Patient is on chronic Suboxone therapy for chronic opioid dependence
He was treated with neostigmine for colon dysmotility in December 2024
At that time, multiple bowel regimens were tried, Linzess but was tried, Methylnaltrexone was tried, and Nema/suppositories but he ultimately responded to neostigmine
He has been trying bowel regimen secondary at home for the past couple of weeks but nothing worked
Normal serum chemistry
Check TSH levels
Suppository/enema
Consider neostigmine patient- will need to discontinue his beta-deanna as neostigmine can cause bradycardia
Can continue clears
Continue bowel regimen
DVT PPX-SCDs
Code status-Full code
-
-
Thank you for consultation and allowing me to participate in the patient's care. Please call the collections attorney GI physician during the after hours with any questions or concerns.
--- NOTE | 2025-05-19 09:34 | PTCARENOTE ---
pt refusing AM lovenox, educated on DVT prophylaxis. Pt understanding, however does not wish to have lovenox injections.
[2025-05-19 09:45] LABS: Glycohemoglobin (HgbA1c) 7.1 % (4.0-5.6)
[2025-05-19] MEDS: SUBUTEX 4 MG SL (10:18)
[2025-05-19] MEDS: LINZESS 290 MCG PO (10:18)
--- NOTE | 2025-05-19 10:58 | PTCARENOTE ---
vitals signs captured from previous shift. Cannot verify accuracy.
[2025-05-19] MEDS: PROSTIGMIN 2 MG IV (11:11)
--- NOTE | 2025-05-19 11:25 | CON.CRS ---
Consultation
-
Date/Time Consultation Performed: 05/19/2025
Performing Provider: Jl Pierre MD
Reason for Consultation: Abdominal distention
Medical History
-
History of Present Illness:
Patient is a 64-year-old male with PMH of diabetes, HTN, A-flutter s/p cardioversion , CM (last EF 35%) and admission in December 2024 for massive dilation of sigmoid colon without evidence of obstruction (underwent flexible sigmoidoscopy, no
volvulus or obstruction was identified; received multiple laxatives, GoLytely and ultimately neostigmine with resolution of the distention) who presents after a similar episode. He has not had a BM for 5 weeks. He has been taking Linzess with some
success, but it has not been working for the last 5 weeks. He attempted taking Senokot and several bottles of magnesium citrate, without improvement. He denies any N/V, abdominal pain or urinary symptoms. He has been passing flatus. He has never
had a colonoscopy. In the ED, WBC 9.[address] scan shows severe distention of the redundant sigmoid colon measuring up to 13.1 cm, no distal point of obstruction, mild wall thickening. 1.8 cm enhancing renal lesion, mild inguinal and
retroperitoneal lymphadenopathy.
Past Medical History
Past Medical History: Other (As above)
Past Surgical History: Other (Bilateral hip replacement, knee replacement)
Social History
Tobacco: Non-Smoker
Alcohol: Occasional
Drug: None
Personal:
Living: With Family
Family History
Family History: Other (No family history of CRC)
Allergies / Home Medications
Allergy/AdvReac Type Severity Reaction Status Date / Time
No Known Allergies Allergy Verified 04/08/25 20:21
�Medication �Instructions �Recorded �Confirmed �Type
atorvastatin 40 mg tablet 40 mg PO HS High Cholesterol 12/24/24 05/18/25 History
buprenorphine 4 mg-naloxone 1 mg 1 film buccal DAILY Opioid use 12/24/24 05/18/25 History
sublingual film (Suboxone) disorder
amiodarone 200 mg tablet 200 mg PO HS Arrhythmia 02/02/25 05/18/25 History
furosemide 40 mg tablet (Lasix) 40 mg PO .SEE BELOW fluid 03/03/25 05/18/25 History
retention/swelling
insulin aspart U-100 100 unit/mL 20 sliding scale dose SC AC 03/03/25 05/18/25 History
(3 mL) subcutaneous pen (Novolog Diabetes
FlexPen U-100 Insulin aspart)
insulin glargine 100 unit/mL (3 24 unit SC DAILY Diabetes 03/03/25 05/18/25 History
mL) subcutaneous pen (Lantus
Solostar U-100 Insulin)
linaclotide 290 mcg capsule 290 mcg PO DAILY Constipation 03/03/25 05/18/25 History
(Linzess)
spironolactone 25 mg tablet 25 mg PO HS Blood Pressure 03/03/25 05/18/25 History
Metamucil 2 tbsp PO ONCE PRN constipation 05/18/25 05/18/25 History
acetaminophen 500 mg tablet 1,000 mg PO BIDPRN PRN mild pain 05/18/25 05/18/25 History
(Tylenol Extra Strength)
lactulose 10 gram/15 mL oral 15 - 30 ml PO BIDPRN PRN 05/18/25 05/18/25 History
solution constipation
lidocaine 1.8 % topical patch 1 patch topical DAILYPRN PRN upper 05/18/25 05/18/25 History
(ZTlido) right arm/shoulder
magnesium citrate 10.5 oz PO Q2HPRN PRN constipation 05/18/25 05/18/25 History
metoprolol succinate 100 mg 100 mg PO HS 05/18/25 05/18/25 History
tablet,extended release 24 hr
rivaroxaban 20 mg tablet (Xarelto) 20 mg PO HS 05/18/25 05/18/25 History
white petrolatum 42 % topical 1 applic topical DAILYPRN PRN 05/18/25 05/18/25 History
ointment (Hydrophor) apply to B/L legs & feet
Review of Systems
-
A 10 point review of systems was completed, and was negative except as per HPI.
Physical Exam
Vital Signs
Temp 97.7 F 05/19/25 07:08
Pulse 64 05/19/25 10:51
Resp Rate 17 05/19/25 10:51
Blood pressure 111/72 05/19/25 10:51
SaO2 91 05/19/25 08:00
05/18/25 05/19/25 05/20/25
06:59 06:59 06:59
Actual Weight 150.4 kg
Body Mass Index (BMI) 42.6
Lab Results / Allergies
05/19/25 05:50
05/19/25 05:50
WBC 7.5 10^3/uL (4.8-10.8) 05/19/25 05:50
Hgb 12.0 g/dL (13.0-18.0) L 05/19/25 05:50
Hct 36.7 % (39.0-52.0) L 05/19/25 05:50
Plt Count 200 10^3/uL (130-400) 05/19/25 05:50
Abs Immat Gran (auto) 0.0 10^3/uL (0-0.05) 05/18/25 13:05
Neutrophils % 65.7 % (42.2-75.2) 05/18/25 13:05
Allergy/AdvReac Type Severity Reaction Status Date / Time
No Known Allergies Allergy Verified 04/08/25 20:21
Physical Exam
General: Well Developed, Well Nourished and No Apparent Distress
HEENT: Normocephalic and Atraumatic
Respiratory: Non Labored Respirations
Cardiac: S1/S2
GI: Soft, Non Tender and Distended (Severely distended without much tympany)
Skin: Warm and Dry
Neuro: AO x 3
Data Reviewed
-
CT Scan: Image Personally Visualized and interpreted, Discussed with Physician (Tommy Lane) and Discussed with Patient
Labs: Labs Reviewed by me and Discussed with Patient
Assessment / Plan
-
64-year-old male with PMH of diabetes, HTN, A-flutter s/p cardioversion , CM (last EF 35%) and admission in December 2024 for massive dilation of sigmoid colon without evidence of obstruction (underwent flexible sigmoidoscopy, no volvulus or
obstruction was identified; received multiple laxatives, GoLytely and ultimately neostigmine with resolution of the distention) who presents after a similar episode. He has not had a BM for 5 weeks. He has been taking Linzess with some success,
but it has not been working for the last 5 weeks. He attempted taking Senokot and several bottles of magnesium citrate, without improvement. He denies any N/V, abdominal pain or urinary symptoms. He has been passing flatus. He has never had a
colonoscopy. In the ED, WBC 9.[address] scan shows severe distention of the redundant sigmoid colon measuring up to 13.1 cm, no distal point of obstruction, mild wall thickening. 1.8 cm enhancing renal lesion, mild inguinal and retroperitoneal
lymphadenopathy.
AFVSS
WBC 7.5, Hb 12.0, Cr 0.8
� Megasigmoid without evidence of ischemia or obstruction; most likely related to colonic dysmotility
� No current need for acute surgical intervention, no hemodynamic instability or evidence of peritonitis
� Due to elevated surgical risk, would maximize medical management, including consideration for neostigmine; explained to the patient if any clinical worsening, surgery in the acute setting would most likely require a laparotomy and ostomy
creation; if able to proceed with medical management, elective sigmoidectomy can be considered long-term which would have a much lower risk of ostomy creation; alternatively, if medical management is successful and able to find a maintenance
regiment with better success, medical management can be considered long-term as well; however, I expressed my concern with this option as he has suffered recurrence
� Recommend n.p.o. with IVF
� Appreciate GI; discussed with Dr. Sanders, will give neostigmine today
� Pain control with Tylenol
� Encourage OOB and I-S
� Appreciate hospitalist; incidental finding of renal mass, would consider urology evaluation for concern of RCC
[2025-05-19] MEDS: MILK OF MAGNESIA 30 ML PO (11:55)
[2025-05-19 12:49] LABS: Glucose - Point of Care 211 mg/dl (70-99)
[2025-05-19] MEDS: NOVOLOG FLEXPEN-MODERATE RESISTANCE 3 UNITS SC (13:00)
--- NOTE | 2025-05-19 15:42 | W.PN.HOSP.TC ---
Today's Communication/Plan
-
await OBS series
follow GI and GS recs
Assessment / Plan
Assessment / Plan
Assessment:
Colonic Motility Disorder / Constipation
- continue IMU level of care
- Trial of enemas, MiraLax, etc overnight - though patient has failed all measures thus far.
- Colorectal Surgery and GI consulted.
- received neostigmine 2mg today, without improvement
- enema ordered
- await OBS series
Acute on Chronic HFrEF
- Patient with increased edema and weight gain from last visit here.
- Admits to intermittent non-compliance with Lasix (when he leaves the house, etc).
- IV Lasix BID continues - requires intensive monitoring of I/Os, weights
- Follow I/Os, daily weights, etc.
- Echo done 04/2025 with LVEF = 35%.
Paroxysmal Atrial Flutter
- Stable. Maintaining NSR at present s/p cardioversion in January.
- He is currently holding Xarelto in preparation for scheduled L eye surgery on .
- Resume post-op - or sooner if surgery will need to be postponed.
Benign Hypertension
- Stable. continue current med regimen and adjust as needed.
DM-II
- Stable. continue basal:bolus insulin regimen.
- Follow glucose and cover with SSI as needed.
- A1C: 7.1%
Chronic Pain Syndrome
Chronic Opioid Dependence
- Continue buprenorphine 4mg daily during inpatient stay.
- Continued attempts to wean opioids should hopefully improve constipation issues.
Obesity due to excess calories
- Affects all aspects of care.
- Encourage health diet and increased activity with goal of weight loss.
1.8 cm enhancing lesion in the mid/upper pole the right kidney
Mild lymphadenopathy
- Onc following
- testicular US ordered
- Urology outpatient evaluation
DVT Prophylaxis: Lovenox while Xarelto on hold.
Code Status: Full
Anticipated Discharge: > 48 hours
Subjective/Interval History
-
Date of Service: May 19, 2025
s/p Neostigmine without significant BMs
Objective Data
-
Labs:
Laboratory Results
05/19/25
05:50
WBC 7.5
Hgb 12.0 L
Hct 36.7 L
Plt Count 200
Sodium 135
Potassium 4.8
Chloride 100
Carbon Dioxide 28
BUN 24 H
Creatinine 0.8
Glucose 106 H
Calcium 9.3
Vital Signs:
Vital Signs
Temp Pulse Resp BP Pulse Ox
98.3 F 75 20 99/72 91
05/19/25 15:00 05/19/25 14:00 05/19/25 14:00 05/19/25 14:00 05/19/25 13:00
I&O
05/18/25 05/19/25 05/20/25
06:59 06:59 06:59
Output Total 300 / 300 1600 / 1600
Balance -300 / -300 -1600 / -1600
Physical Exam
-
General: No Apparent Distress
HEENT: Normocephalic and Atraumatic
Respiratory: Negative Wheezes
Cardiac: Regular Rhythm and S1/S2
GI: Soft and Distended (Markedly distended, tympanic percussion note and decreased bowel sounds)
Genito-urinary: No Costovertebral Tender
Musculoskeletal: Edema, Right Lower Extrem and Edema, Left Lower Extrem
Neuro: AO x 3
Psych: Calm
Data Reviewed
-
Total Time Spent with Patient (in minutes): 51
Labs: Labs Reviewed by me
[2025-05-19 16:41] LABS: Glucose - Point of Care 130 mg/dl (70-99)
--- NOTE | 2025-05-19 17:18 | CM ---
Patient with Dx Colonic Motility Disorder / Constipation, HF, Chronic Pain Syndrome. Chest/Abd xray today. Room air. Receiving IV Neostigmine, IV Lasix, Subutex. Per nurse; OOB chair/assist of 1, weak gait transfers.
Spoke with patient resides with his in a 2 story house with 3 VU.
The patient was independent in ADLs and ambulation.
DME - [facility]
Prior VN after knee surgery at [facility], can't remember agency
No prior SNF
PCP - Shankar Mena
Pharmacy - [facility] [place]
Message to Dr Lane: nurse reported weak gait/transfers, not sure if he needs PT or not, he was independent at home. Response: Not today due to neostigmine, due to risk bradycardia & hypotension, but maybe tomorrow will evaluate for appropriateness
Plan follow patient's mobility.
Plan probable home.
--- NOTE | 2025-05-19 18:57 | PTCARENOTE ---
pt unable to have successful BM this shift despite neostigmine and milk of mag. Waiting on Milk & molasses from kitchen for enema. updated pt on plan of care.
[2025-05-19] MEDS: LIPITOR 40 MG PO (20:47)
[2025-05-19] MEDS: PACERONE 200 MG PO (20:47)
[2025-05-19 21:50] LABS: Glucose - Point of Care 142 mg/dl (70-99)
[2025-05-20] VITALS (8 sets, daily range): BP systolic 83–112; BP diastolic 54–83; BMI 40.7
--- NOTE | 2025-05-20 01:12 | PTCARENOTE ---
Milk and molasses enema given at 23:10. Pt with two extremely large, soft brown bowel movements following the enema. Pt states he feels a great deal of relief and feels so much better. Abdomen remains round/distended, although appears slightly
improved compared to assessment prior to the enema. VSS. BP 93/54. MAP 66. No c/o dizziness/lightheadedness. Pt states that his blood pressure runs low at baseline. Call bedoya and belongings within reach. Care ongoing.
[2025-05-20 04:13] LABS: Hematocrit 38.4 % (39.0-52.0); Hemoglobin 12.4 g/dL (13.0-18.0); Mean Corp Hgb Conc. 32.3 g/dL (33.0-37.0); Mean Corpuscular Volume 81.2 fL (80.0-94.0); Platelet Count 209 10^3/uL (130-400); Red Cell Dist. Width 14.4 % (11.5-14.5)
[2025-05-20 04:39] LABS: Blood Urea Nitrogen 33 mg/dl (9-20); Calcium 9.2 mg/dl (8.4-10.2); Carbon Dioxide 29 mmol/L (22-30); Chloride 98 mmol/L (98-107); Estimated Creatinine Clearance 105 ml/min; Glucose 130 mg/dl (70-99); Potassium 4.2 mmol/L (3.5-5.1); Sodium 135 mmol/L (135-145); eGFR > 60.00
[2025-05-20 07:44] LABS: Glucose - Point of Care 140 mg/dl (70-99)
[2025-05-20] MEDS: MIRALAX 17 GRAMS PO (08:18)
[2025-05-20] MEDS: NOVOLOG FLEXPEN-MODERATE RESISTANCE SC ×2 (08:19→11:04)
[2025-05-20] MEDS: LANTUS 0.2 UNITS SC (08:19)
[2025-05-20] MEDS: LASIX 40 MG IV (08:20)
[2025-05-20] MEDS: LINZESS 290 MCG PO (08:25)
--- NOTE | 2025-05-20 08:48 | W.PN.GI.CBS2 ---
Addendum entered and electronically signed by Dale Sanders MD 05/20/25 09:13:
I saw and evaluated the patient. I reviewed the resident�s note and agree with findings and plan as documented in the resident�s note.
Pt had large BM this am. He did receive milk and molasses enema last night
ABD softer, distended, nontender
REC:
Advance to low residue diet
Told pt to continue Linzess 290mcg outpt and use mg citrate and miralax prn. Also can use OTC enemas since that also helped
CRS discussed anal manometry, defecography, and Sitz marker test which would be helpful. Also should get colonoscopy.
I sent msg to our front of house manager to reschedule his appt with Dr Harrington that he missed yesterday.
OK for d/c from GI standpoint. Will sign off
Original Note:
Today's Communication / Plan
-
low residue diet
Assessment / Plan
-
Impression
Patient is a 64-year-old male with known past medical history of colonic motility dysfunction/Jose's syndrome who is here for constipation for 5 weeks.Responded well to neostigmine
Normal serum chemistry
HbA1c 7.1
No leukocytosis
Hemodynamically stable
CT this admission shows severe distention of redundant sigmoid with severe stool burden with element of stercoral colitis.
Assessment/plan
Colon motility dysfunction/Ocala's Syndrome
Patient is on chronic Suboxone therapy for chronic opioid dependence
He was treated with neostigmine for colon dysmotility in December 2024
At that time, multiple bowel regimens were tried, Linzess but was tried, Methylnaltrexone was tried, and Enema/suppositories but he ultimately responded to neostigmine
Patient responded well to neostigmine
Had small bowel movement yesterday and a large loose brown stool this morning
Feels well,denies any fatigue, sweating, palpitations, dizziness, shortness of breath or any other issues
Ok to advance diet to low residue diet
Plan to add a good bowel regimen on discharge with 290mcg of linzess daily,miralax daily and magnesium citrate
Advise to be compliant to medication and call office if no bowel movement in a week
DVT PPX-SCDs
Code status-Full code
Subjective
Subjective
Date of Service: May 20, 2025
Patient seen and examined on bedside
Sitting comfortably in chair
Had a large loose bowel movement this morning
Denies any fatigue, sweating, palpitations, dizziness, shortness of breath or any other issues
Objective
Data Reviewed
Laboratory Data:
Laboratory Results
05/20/25 03:45
05/20/25 03:45
Laboratory Results
Total Bilirubin 1.1 mg/dl (0.2-1.3) 05/18/25 13:05
AST 19 U/L (17-59) 05/18/25 13:05
ALT 11 U/L (0-50) 05/18/25 13:05
Alkaline Phosphatase 115 U/L (38-126) 05/18/25 13:05
Vital Signs and I&O:
Vital Signs
Temp Pulse Resp BP Pulse Ox
98.0 F 60 19 95/60 97
05/20/25 07:47 05/20/25 08:20 05/20/25 06:00 05/20/25 08:20 05/20/25 05:31
I&O
05/19/25 05/20/25 05/21/25
06:59 06:59 06:59
Intake Total 960 / 960
Output Total 300 / 300 2200 / 2200
Balance -300 / -300 -1240 / -1240
Physical Exam
Physical Exam
HEENT: Anicteric and Moist mucous membranes
GI: Soft, Distended (Obese abdomen), Non Tender and Normal Bowel Sounds
--- NOTE | 2025-05-20 09:26 | PTCARENOTE ---
Pt AAOx3 OOB in chair awaiting DC . Pt sent to Us now waiting for diet order
[2025-05-20] MEDS: SUBUTEX 4 MG SL (10:24)
[2025-05-20 11:12] LABS: Glucose - Point of Care 139 mg/dl (70-99)
--- NOTE | 2025-05-20 12:53 | W.PN.CRS1 ---
Today's Communication / Plan
-
No plans for surgery at this time
Continue bowel regimen per GI
Assessment/Plan
-
64-year-old male with PMH of diabetes, HTN, A-flutter s/p cardioversion , CM (last EF 35%) and admission in December 2024 for massive dilation of sigmoid colon without evidence of obstruction (underwent flexible sigmoidoscopy, no volvulus or
obstruction was identified; received multiple laxatives, GoLytely and ultimately neostigmine with resolution of the distention) who presents after a similar episode. He has not had a BM for 5 weeks. He has been taking Linzess with some success,
but it has not been working for the last 5 weeks. He attempted taking Senokot and several bottles of magnesium citrate, without improvement. He denies any N/V, abdominal pain or urinary symptoms. He has been passing flatus. He has never had a
colonoscopy. In the ED, WBC 9.[address] scan shows severe distention of the redundant sigmoid colon measuring up to 13.1 cm, no distal point of obstruction, mild wall thickening. 1.8 cm enhancing renal lesion, mild inguinal and retroperitoneal
lymphadenopathy.
AFVSS
WBC 7.5, Hb 12.0, Cr 0.8
� Megasigmoid without evidence of ischemia or obstruction; most likely related to colonic dysmotility
� No current need for acute surgical intervention, no hemodynamic instability or evidence of peritonitis
� Diet advanced to low residue by medical team
� Appreciate GI
� Pain control with Tylenol
� Encourage OOB and I-S
� Appreciate hospitalist; incidental finding of renal mass, would consider urology evaluation for concern of RCC
- Follow-up as an outpatient with Dr. Pierre to discuss possible elective surgery in the future
Subjective Data
Subjective Data
Date of Service: May 20, 2025
Patient states he is feeling much better today. He underwent a patient states he feels much better today. He had a milk of magnesia enema yesterday that produced multiple large bowel movements. The neostigmine did not seem to produce anything
except for cramps. He states he is hungry. He feels a lot less bloated. He is passing stool.
Objective Data
-
Vital Signs
Temp Pulse Resp BP Pulse Ox
97.9 F 57 18 108/77 97
05/20/25 11:15 05/20/25 10:00 05/20/25 10:00 05/20/25 10:00 05/20/25 05:31
Intake & Output
05/19/25 05/20/25 05/21/25
06:59 06:59 06:59
Intake Total 960 / 960
Output Total 300 / 300 2200 / 2200
Balance -300 / -300 -1240 / -1240
Intake:
Oral fluids 960 / 960
Output:
Urine, Voided 300 / 300 2200 / 2200
Lab Results
05/20/25 03:45
05/20/25 03:45
Physical Exam
-
General: No Acute Distress and AOx3
Abdomen: Soft, Distended (mild) and Non Tender
Skin: Warm and Dry
--- NOTE | 2025-05-20 13:19 | PTCARENOTE ---
Pt ready for dc iv out, socks and compression socks on. awaiting DR Lane
--- NOTE | 2025-05-20 14:23 | W.PN.HOSP.TC ---
Today's Communication/Plan
-
dc home
Assessment / Plan
Assessment / Plan
Assessment:
Colonic Motility Disorder/Constipation
- Trial of enemas, MiraLax, etc overnight - though patient has failed all measures thus far.
- Colorectal Surgery and GI consulted.
- received neostigmine 2mg today,
-+ BMs
- OP GI and CRS f/u
Acute on Chronic HFrEF
- Patient with increased edema and weight gain from last visit here.
- Admits to intermittent non-compliance with Lasix (when he leaves the house, etc).
- s/p IV Lasix - resume daily Lasix at home
- Follow I/Os, daily weights, etc.
- Echo done 04/2025 with LVEF = 35%.
Paroxysmal Atrial Flutter
- Stable. Maintaining NSR at present s/p cardioversion in January.
- He is currently holding Xarelto in preparation for scheduled L eye surgery on .
- Resume post-op - or sooner if surgery will need to be postponed.
Benign Hypertension
- Stable. continue current med regimen and adjust as needed.
DM-II
- Stable. continue basal:bolus insulin regimen.
- Follow glucose and cover with SSI as needed.
- A1C: 7.1%
Chronic Pain Syndrome
Chronic Opioid Dependence
- Continue buprenorphine 4mg daily during inpatient stay.
- Continued attempts to wean opioids should hopefully improve constipation issues.
Obesity due to excess calories
- Affects all aspects of care.
- Encourage health diet and increased activity with goal of weight loss.
1.8 cm enhancing lesion in the mid/upper pole the right kidney
Mild lymphadenopathy
- Onc following
- testicular US ordered
- Urology outpatient evaluation
DVT Prophylaxis: Lovenox while Xarelto on hold.
Code Status: Full
More than 30 minutes spent in discharge including
Final examination of the patient
Summarizing hospital stay
Instructions for continuing care to all relevant caregivers
Preparation of discharge records, prescriptions, and referral forms
Total time spent (in minutes): 42
Anticipated Discharge: Today
Subjective/Interval History
-
Date of Service: May 20, 2025
positive bowel movements
Objective Data
-
Labs:
Laboratory Results
05/20/25
03:45
WBC 10.1
Hgb 12.4 L
Hct 38.4 L
Plt Count 209
Sodium 135
Potassium 4.2
Chloride 98
Carbon Dioxide 29
BUN 33 H
Creatinine 1.1
Glucose 130 H
Calcium 9.2
Vital Signs:
Vital Signs
Temp Pulse Resp BP Pulse Ox
97.9 F 74 15 112/83 97
05/20/25 11:15 05/20/25 12:00 05/20/25 12:00 05/20/25 12:00 05/20/25 05:31
I&O
05/19/25 05/20/25 05/21/25
06:59 06:59 06:59
Intake Total 960 / 960
Output Total 300 / 300 2200 / 2200 600 / 600
Balance -300 / -300 -1240 / -1240 -600 / -600
Physical Exam
-
General: No Apparent Distress
HEENT: Normocephalic and Atraumatic
Respiratory: Negative Wheezes
Cardiac: Regular Rhythm and S1/S2
GI: Soft and Nontender
Genito-urinary: No Costovertebral Tender
Neuro: AO x 3
Hematologic / Lymphatic: No Lymphadenopathy
Psych: Calm
Data Reviewed
-
Total Time Spent with Patient (in minutes): 42
Labs: Labs Reviewed by me
--- NOTE | 2025-05-20 14:30 | W.DS.TRANS ---
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
-
Discharge Instructions:
Discharge Diagnosis/Procedures colonic distention/constipation
Diet Low Residue
Activity As tolerated
Instructions:
Stand-Alone Forms:
Changes to Home Medications: No
Discharge Medications:
DC Medications w/original date entered in [facility]
atorvastatin 40 mg tablet 40 mg PO HS High Cholesterol 12/24/24
buprenorphine 4 mg-naloxone 1 mg sublingual film (Suboxone) 1 film buccal DAILY Opioid use disorder 12/24/24
amiodarone 200 mg tablet 200 mg PO HS Arrhythmia 02/02/25
furosemide 40 mg tablet (Lasix) 40 mg PO .SEE BELOW fluid retention/swelling 03/03/25
insulin aspart U-100 100 unit/mL (3 mL) subcutaneous pen (Novolog FlexPen U-100 Insulin aspart) 20 sliding scale dose SC AC Diabetes 03/03/25
insulin glargine 100 unit/mL (3 mL) subcutaneous pen (Lantus Solostar U-100 Insulin) 24 unit SC DAILY Diabetes 03/03/25
linaclotide 290 mcg capsule (Linzess) 290 mcg PO DAILY Constipation 03/03/25
spironolactone 25 mg tablet 25 mg PO HS Blood Pressure 03/03/25
Metamucil 2 tbsp PO ONCE PRN constipation 05/18/25
acetaminophen 500 mg tablet (Tylenol Extra Strength) 1,000 mg PO BIDPRN PRN mild pain 05/18/25
lactulose 10 gram/15 mL oral solution 15 - 30 ml PO BIDPRN PRN constipation 05/18/25
lidocaine 1.8 % topical patch (ZTlido) 1 patch topical DAILYPRN PRN upper right arm/shoulder 05/18/25
magnesium citrate 10.5 oz PO Q2HPRN PRN constipation 05/18/25
metoprolol succinate 100 mg tablet,extended release 24 hr 100 mg PO HS 05/18/25
rivaroxaban 20 mg tablet (Xarelto) 20 mg PO HS 05/18/25
Held on 05/20/25. Instructions: holding for eye surgery
white petrolatum 42 % topical ointment (Hydrophor) 1 applic topical DAILYPRN PRN apply to B/L legs & feet 05/18/25
polyethylene glycol 3350 17 gram oral powder packet 17 g PO BID #60 ea 05/20/25
Home Medication Changes
Pending Results: No
Total time spent discharging patient (in min): 41
--- NOTE | 2025-05-20 14:30 | W.DCSUMMARY ---
Discharge Summary
Discharge Data
Date of Admission: 05/18/25
Date of Discharge: 05/20/25
-
Pending Results: No
Hospital Course
64 y/o M presented with constipation for 5 weeks and was found to have colonic distention. He was admitted to IMU for Neostigmine and that helped improved his constipation. He was tolerated a regular diet at discharge. He was evaluated by GI and
Surgery who will follow up with patient in office for anal manometry, defecography, and Sitz marker test and colonoscopy.
Discharge Plan
-
Patient Disposition: Home (Routine Discharge)
Discharge Diagnosis/Procedures: colonic distention/constipation
Condition: Fair
Diet: Low Residue
Activity: As tolerated
Referrals:
Shanique Harrington MD [Active, Gastroenterology]
Referral Note: call to make appointment
Shankar Mena MD [Family Provider, Internal Medicine] - in one week
Additional Discharge Medication Instructions: use as needed mag citrate for constipation
Prescriptions:
New
polyethylene glycol 3350 17 gram Powder In Packet
17 g PO BID Qty: 60 0RF
Continued
buprenorphine-naloxone [Suboxone] 4-1 mg Film
1 film BUCCAL DAILY
atorvastatin 40 MG tablet
40 mg PO HS
amiodarone 200 mg Tablet
200 mg PO HS
insulin aspart U-100 [Novolog FlexPen U-100 Insulin] 100 unit/mL (3 mL) insulin pen
20 sliding scale dose SC AC
insulin glargine [Lantus Solostar U-100 Insulin] 100 unit/mL (3 mL) insulin pen
24 unit SC DAILY
Linzess 290 mcg capsule
290 mcg PO DAILY
furosemide [Lasix] 40 mg Tablet
40 mg PO .SEE BELOW
Patient Comments:
05/18/2025, prescribed for pt. to take 1 tablet daily; however, pt. didn't think it was working so he takes it QPMPRN.
spironolactone 25 mg Tablet
25 mg PO HS
metoprolol succinate 100 mg Tablet Extended Release 24 Hr
100 mg PO HS
acetaminophen [Tylenol Extra Strength] 500 mg Tablet
1,000 mg PO BIDPRN PRN (Reason: mild pain)
lactulose 10 gram/15 mL Solution
15 - 30 ml PO BIDPRN PRN (Reason: constipation)
ZTlido 1.8 % adhesive patch,medicated
1 patch topical DAILYPRN PRN (Reason: upper right arm/shoulder)
Metamucil
2 tbsp PO ONCE PRN (Reason: constipation)
magnesium citrate
10.5 oz PO Q2HPRN PRN (Reason: constipation)
white petrolatum [Hydrophor] 42 % ointment
1 applic topical DAILYPRN PRN (Reason: apply to B/L legs & feet)
Held
Xarelto 20 mg tablet
20 mg PO HS
Hold Instructions: holding for eye surgery
Discharge Orders:
Discharge Patient (As Directed); Ordered 05/20/25
Ordered By: Ghislaine Lane
Discharge Date and Time
Print Language: P[place]
--- NOTE | 2025-05-20 14:33 | CM ---
PT Screen; no needs.
Met with patient who was preparing for discharge.
The patient says he feels ready for discharge home today. He was ambulating in room without difficulty. He was eager to leave to get to an outpatient cardiology appt, and planned on driving himself home.
No CM d/c needs identified.
Plan home today.
--- NOTE | 2025-05-20 15:02 | PTCARENOTE ---
Pt left via wc with dc instructions
== END 2025-05-20 14:40 | disposition home or self-care (01) | DRG 393 ==
LOC: IMU 20:59
PROVIDERS: Student in an Organized Health Care Education/Training Program; ADMITTING PHYSICIAN Hospitalist; ATTENDING PHYSICIAN Internal Medicine; CONSULT PHYSICIAN Internal Medicine Hematology & Oncology; CONSULT PHYSICIAN Specialist; CONSULT PHYSICIAN Surgery; EMERGENCY PHYSICIAN Emergency Medicine; FAMILY PHYSICIAN Internal Medicine
DX: K59.39 Other megacolon (principal); I50.23 Acute on chronic systolic (congestive) heart failure; I42.8 Other cardiomyopathies; I48.92 Unspecified atrial flutter; Z68.41 Body mass index [BMI] 40.0-44.9, adult; Q43.8 Other specified congenital malformations of intestine; F11.20 Opioid dependence, uncomplicated; H33.22 Serous retinal detachment, left eye; K59.09 Other constipation; E11.649 Type 2 diabetes mellitus with hypoglycemia without coma; I11.0 Hypertensive heart disease with heart failure; E78.00 Pure hypercholesterolemia, unspecified; G89.4 Chronic pain syndrome; N40.0 Benign prostatic hyperplasia without lower urinary tract symptoms; G47.33 Obstructive sleep apnea (adult) (pediatric); M19.011 Primary osteoarthritis, right shoulder; M54.9 Dorsalgia, unspecified; E66.09 Other obesity due to excess calories; K42.9 Umbilical hernia without obstruction or gangrene; K59.81 Ogilvie syndrome; K59.89 Other specified functional intestinal disorders; R59.0 Localized enlarged lymph nodes; N28.89 Other specified disorders of kidney and ureter; Z96.651 Presence of right artificial knee joint; Z96.643 Presence of artificial hip joint, bilateral; Z79.01 Long term (current) use of anticoagulants; Z79.4 Long term (current) use of insulin; Z91.148 Patient's other noncompliance with medication regimen for other reason
CPT/HCPCS: 74022; 74177; 76882; 80048; 80053; 82962; 83036; 85025; 85027; 96360; 99285; Q9967

== ENCOUNTER 2025-06-06 02:11 | Inpatient (IN) | payer OTHER, SELFPAY ==
[2025-06-05 19:56] VITALS: BP 122/86
[2025-06-05 20:31] VITALS: BMI 45.3
--- NOTE | 2025-06-05 20:31 | EDRN ---
Pt has 'severe constipation' and says he is unable to breathe. Pt adds his stomach is distended due to gas. Last BM this morning and was 'just a little bit.' Pt noted symptoms 2 days ago and thought it would 'straighten itself out.' Pt took mag
citrate this morning and then has small BM. Pt also took miralax last night. Pt takes linzess for chronic constipation. Pt with similar symptoms December/January and was admitted to ICU but pt says he had other problems going on at that time. No
cp. Abd pain intermittent, was constant earlier. No n/v/d, fever/chills/cough, urinary symptoms.
[2025-06-05 20:53] VITALS: BP 140/80
--- NOTE | 2025-06-05 21:01 | EDRN ---
Pt unable to tolerate sitting on stretcher with legs up - pt sitting on L side of stretcher with legs dangling. Increased O2 to 4 lpm because pulse ox high 80's on 2 lpm. Pulse ox currently 95-96% on 4 lpm.
[2025-06-05 21:03] LABS: Hematocrit 38.0 % (39.0-52.0); Hemoglobin 12.1 g/dL (13.0-18.0); Mean Corp Hgb Conc. 31.8 g/dL (33.0-37.0); Mean Corpuscular Volume 83.0 fL (80.0-94.0); Nucleated Red Blood Cells % 0 % (-); Platelet Count 220 10^3/uL (130-400); Red Cell Dist. Width 14.6 % (11.5-14.5)
[2025-06-05 21:27] LABS: ALT (SGPT) 11 U/L (0-50); AST (SGOT) 20 U/L (17-59); Albumin 4.5 g/dl (3.5-5.0); Alkaline Phosphatase 119 U/L (38-126); Blood Urea Nitrogen 49 mg/dl (9-20); Calcium 9.1 mg/dl (8.4-10.2); Estimated Creatinine Clearance 120 ml/min; Glucose 161 mg/dl (70-99); Lipase 37 U/L (23-300); Total Protein 8.5 g/dl (6.3-8.2); eGFR > 60.00
--- NOTE | 2025-06-05 21:31 | ED.GENMED ---
History of Present Illness
General
Chief Complaint: Breathing Problem
Source: patient
Exam Limitations: none
Time Seen by Provider: 06/05/25 21:18
Nursing documentation reviewed up to this point in time: agreed with
History of Present Illness
History of Present Illness:
Note:
CHIEF COMPLAINT(S)
Shortness of breath and abdominal discomfort.
HISTORY OF PRESENT ILLNESS
The patient is a 64-year-old male with pmh of insulin-dependent diabetes, hypertension, nonischemic cardiomyopathy, hyperlipidemia, A-fib/flutter chronically maintained on Xarelto, chronic colonic distension, BPH, ERASMO, who has been experiencing
intermittent bouts of abdominal discomfort and difficulty breathing over the past several weeks. The first occurrence was noted in December or January, while the most recent episode began around the of last month. The patient reports a sensation
of bloating and pressure in the abdomen, which he describes as feeling as if his stomach is tight like a drum and uncomfortable, leading to difficulty breathing, particularly resembling panic attacks. These symptoms have caused significant
discomfort and reduced energy levels.
The patient reports recent bowel movements that were minimal and predominantly liquid. There is a history of chronic problems with constipation and bowel movements, requiring interventions such as milk and molasses enemas, which the patient noted to
be effective previously but not consistently successful. Other medications, such as magnesium citrate and MiraLAX, have not provided relief, and the patient has expressed frustration with the inconsistency of treatment efficacy. Additionally, the
patient perceives a possible partial bowel obstruction, noting that previously there was success with easing blockages when gas was present to apparently relieve pressure on the diaphragm and bladder. He had 2 bottles of magnesium citrate today. He
has also been experiencing episodes of fluid retention, not alleviated by double dosing Lasix as expected. He has previously undergone treatments involving Quintin-Stigmine, which was effective in past admissions but not successful during the most
recent episodes. The patient voiced concerns about the possibility of a rectal impaction but has declined manual disimpaction when previously suggested.
Chronic issues with a foot, potentially cellulitis, were observed, with discoloration but sensation intact. The patient mentioned past episodes of similar symptoms, with some improvement following aggressive bowel management but noted recent
episodes necessitated a hospital stay. The patient expressed an intention to seek further testing with a irrigation installation specialist, Dr. Carias, although scheduling for these diagnostics is not for a few months and his symptoms have gotten acutely worse.
He denies chest pain, fevers or chills.
ALLERGIES
The patient denies any known allergies to pain medications.
PHYSICAL EXAM
General: Patient is chronically ill appearing but in no acute distress
Skin: Warm and dry, no rashes or lesions
Head: Normocephalic, atraumatic
Eyes: Sclera non-icteric. EOMs intact.
Cardiac: Regular rate and rhythm, no murmurs
Pulm: Increased respiratory rate, patient hypoxic in the 80s on RA
Abdomen: Severe abdominal distention, abdominal rigidity noted, diffuse tenderness to palpation
Neuro: CN II-XII intact, no focal neurologic deficits.
Psychiatric: Appropriate mood and affect.
PROBLEM LIST
Acute:
- Suspected bowel obstruction
- Abdominal distension and tightness
- Dyspnea likely secondary to abdominal issues
Chronic:
- Recurrent abdominal discomfort and constipation
- CHF on lasix
PLAN
- Initiate pain management with a smaller dose of morphine or ketorolac.
Hesitant to give morphine because of hypoxia; patient states that Tylenol does not help; while patient does take a thinner, feel that it is okay to give one time dose of toradol to try to ease discomfort
- Order a computed tomography (CT) scan of the abdomen and pelvis
Considered CTA of the chest to rule out PE considering hypoxia however given abnormal chest x-ray, xarelto use, diffuse colonic distension will hold off at this time
- Continuation of monitoring fluid retention and potential addition of diuretic therapy with Loop diuretics, adjusting doses as necessary.
- Plan to coordinate care with gastroenterology for further testing of gastrointestinal issues.
- Monitor and manage oxygen requirements as needed due to shortness of breath.
DIFFERENTIAL DIAGNOSIS
The Differential Diagnosis includes, in no particular order and is not limited to:
1. Partial bowel obstruction
2. Colonic pseudo-obstruction (Jose syndrome)
3. Constipation due to opioid-induced bowel dysfunction
4. Pancreatitis
5. Abdominal mass or tumor
6. Fluid retention secondary to heart failure
7. Small bowel obstruction
8. Chronic constipation with intermittent acute exacerbations
9. Abdominal aortic aneurysm
10. Inflammatory bowel disease
UPDATE
I was notified by CT scan that patient would not tolerate length of time lying flat required to perform CT scan with IV contrast, time study technician requesting CT scan to be performed without IV contrast
Will proceed with enema; patient refusing manual disimpaction
Patient now refusing enema and disimpaction; patient reports that he feels too short of breath and is not ready
CHART REVIEW
Reviewed all prior discharge summaries related to abdominal distension:
He was scheduled to follow up with GI and colorectal for anal manometry, defecography, and Sitz marker test and colonoscopy
Shortness of breath thought to be due from to abdominal distention which is causing a restrictive lung defect
MDM/DISPOSITION
xThe patient is a 64-year-old male with pmh of insulin-dependent diabetes, hypertension, nonischemic cardiomyopathy, hyperlipidemia, A-fib/flutter chronically maintained on Xarelto, chronic colonic distension, BPH, ERASMO, who has been experiencing
intermittent bouts of abdominal discomfort and difficulty breathing over the past several weeks. Patient reports that the last time he has a normal bowel movement was 2 weeks ago. Patient has been taking multiple bottles of mag citrate without
relief. Prior to my eval, pt placed on oxygen via nasal cannula. On exam, he has an increased resp rate but lungs sound clear, severely distended abdomen with diffuse tenderness. CT shows diffusely dilated colon CXR shows markedly distended
air-filled loops of bowel are seen within the visualized upper abdomen along with patchy parenchymal opacity within the mid to lower lungs. Could be compressive atelectasis however given mildly elevated wbc and degree of opacities will initiate abx.
Will hold off on lasix given baseline pro bnp. Patient refused enema and manual disimpaction, stating that he is not ready and feels too short of breath. Did explain to patient that acute interventions are required to alleviate stool burden
Past History
Past History
ED Past Medical History: Arrthythmia (A-fib flutter), CHF (Nonischemic cardiomyopathy), HTN, Hypercholesterolemia, IDDM, Other (Left lower extremity diabetic foot wound, cellulitis left lower extremity, osteoarthritis of right shoulder) and Other
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
ED Past Surgical History: Other (Noncontributory)
Patient has exhibited threatening behavior?: No
Social History
Tobacco: Non-smoker
Alcohol: None
Drug: None
Personal:
Living: with family
Employment: Not employed
Family History
Family History: Other (Noncontributory)
Phy Exam
Physical Exam
Physical Exam:
see hpi
Scores
Heart Failure Risk
Heart Failure Risk Score: Yes
History of Stroke or TIA: No
History of intubation for respiratory distress: No
Heart rate on ED arrival >/= 110: No
SaO2 <90% on arrival on room air: Yes
HR >/=110 during 3min walk test (or too ill to perform test): Yes
ECG has acute ischemic changes: No
Urea >/=12mmol/L (BUN 33.6mg/dL): No
Serum CO2>/=35mmol/L: No
Troponin I or T elevated to MA Level (0.4mg/dL): No
NT-proBNP >/=5,000ng/L (5,000pg/ml): No
HF Risk Score: 3
Admission Status: HIGH RISK 15.9% Consider SNF treatment or admission to hospital
Course
Orders/Labs/Results
Orders:
Orders
06/05/25 20:17
ECG [Electrocardiogram (*1)] Urgent
Reason for Study: Chest Pain
06/05/25 20:18
EKG- Treatment ONCE
06/05/25 20:42
IV Insert/Care/Rem.- Treatment PRN
06/05/25 20:51
Complete Blood Count/With Diff Urgent
Comprehensive Metabolic Panel Urgent
Lipase Urgent
06/05/25 21:36
CT Abd/pel Without Iv Or Oral Urgent
Reason For Exam: diffuse adominal pain distension
06/05/25 21:46
CR Chest - 2 Views Urgent
Comment:
Reason For Exam: shortness of breath
06/05/25 22:51
Ketorolac [Toradol] 15 mg IV NOW STA
06/05/25 23:02
NT-proBNP Urgent
Troponin I Urgent
06/06/25 00:30
CefTRIAXone [Rocephin] 2,000 mg IV NOW STA
06/06/25 00:35
Sterile Water [Sterile Water For Injection] 20 ml .ROUTE .STK-MED
06/06/25 00:49
Doxycycline Hyclate [Vibramycin] 100 mg 0.9% Sodium Chloride 250 ml [Nss] 250 ml IV NOW
06/06/25 01:49
Admit/Transfer Patient As Directed
Co-Sign Provider:
Level of Care: Inpatient admission
Assign to:: Medical/Surgical
Physician / Group: Melanie
Diagnosis: Pneumonia
Reason for Hospitalization: hypoxia, colonic distension
Expected length of stay greater than two midnights?: Yes
ELOS- Estimated Length of Stay in days: 2
I certify the patient meets the requirements for IP care: Yes
PRN Pain Medication Management As Directed
May give lesser potent ordered pain med per pt: Yes
preference::
Protocol:: Medication orders for pain may be administered in a
manner that supports deferring to patient preference
when the pt is:
- Requesting an ordered lesser potent pain medication.
Least to most potent pain medications are defined
as: acetaminophen < NSAID < tramadol < opioids
(morphine, oxycodone, hydromorphone).
- Requesting a lesser dose of the same medication IF
ORDERED.
- Requesting a less intrusive route of administration
if both routes are prescribed by the provider (PO <
IV).
06/06/25 01:51
Code Status As Directed
Resuscitation Status: Full Code
06/06/25 01:56
Enema As Directed
Type: Milk and molasses
Amount: 500 ml
06/06/25 03:15
Acetaminophen [Tylenol] 650 mg PO Q4HPRN PRN
Bisacodyl [Dulcolax] 10 mg RECTAL [id number] PRN
Ketorolac [Toradol] 10 mg IV Q6HPRN PRN
Lidocaine [Lidocaine 4% Patch] 1 patch TOPICAL DAILYPRN PRN
Ondansetron Injectable [Zofran] 4 mg IV Q6HPRN PRN
Petrolatum/Mineral Oil [Hydrophor] See Dose Instructions TOPICAL DAILYPRN PRN
06/06/25 03:15
Consult Notification Routine
Specialty to Notify: Gastroenterology
GASTROINTESTINAL CONSULT Routine
Consulting Provider: Yessy Cho
Was physician already notified: No
Reason for consult: colonic ileus
VTE Contraindication Routine
VTE Mechanical Device Contraindication: Medical Contraindication
Pharmocologic Contraindication: Medical Contraindication
Activity As Directed
Activity Level: With Assistance
Bedside Glucose Monitoring As Directed
Frequency: AC&HS
Vital Signs As Directed
Frequency: Per unit guidelines
O2 Therapy [RESP] Routine
Nasal Cannula Liter Flow: 2 LPM
Titrate/Wean O2 to maintain O2 sat greater than (%): 93
Rx Incentive Spirometry [RESP] Routine
Frequency: q1h while awake
06/06/25 Breakfast
Clear Liquid
At Your Request: Full Participation
06/06/25 06:43
Basic Metabolic Panel IN AM
Complete Blood Count/No Diff IN AM
Procalcitonin IN AM
If negative, will antibiotics be d/c'd or not started: Yes
Does the patient have renal or hepatic impairment?: No
Any recent (w/in 48 hrs) physiologic stress (CPR, rhabdo): No
06/06/25 07:30
Insulin Aspart Corrective Mod [Novolog Flexpen-Moderate Resistance] See Protocol SC AC
06/06/25 08:00
Buprenorphine [Subutex] 4 mg SL DAILY
Linaclotide [Linzess] 290 mcg PO DAILY
Polyethylene Glycol Powder [Miralax] 17 grams PO BID
06/06/25 12:00
Doxycycline Hyclate [Vibramycin] 100 mg 0.9% Sodium Chloride 250 ml [Nss] 250 ml IV Q12H
06/06/25 22:00
Amiodarone [Pacerone] 200 mg PO HS
Atorvastatin [Lipitor] 40 mg PO HS
Metoprolol Xl [Toprol Xl] 100 mg PO HS
Rivaroxaban [Xarelto] 20 mg PO HS
Spironolactone [Aldactone] 25 mg PO HS
06/07/25 00:00
CefTRIAXone [Rocephin] 2,000 mg IV Q24H
Abnormal Lab Results
06/05/25
20:51
WBC 12.6 H 10^3/uL
(4.8-10.8)
RBC 4.58 L 10^6/uL
(4.70-6.10)
Hgb 12.1 L g/dL
(13.0-18.0)
Hct 38.0 L %
(39.0-52.0)
MCH 26.4 L pg
(27.0-31.0)
MCHC 31.8 L g/dL
(33.0-37.0)
RDW 14.6 H %
(11.5-14.5)
Absolute Neuts (auto) 10.7 H 10^3/uL
(1.4-6.5)
Absolute Lymphs (auto) 1.1 L 10^3/uL
(1.2-3.4)
Neutrophils % 85.2 H %
(42.2-75.2)
Lymphocytes % 9.1 L %
(20.5-51.1)
BUN 49 H mg/dl
(9-20)
Glucose 161 H mg/dl
(70-99)
Total Protein 8.5 H g/dl
(6.3-8.2)
06/05/25 20:51
06/05/25 20:51
Vital Signs
Initial and Last Documented VS:
Initial Vital Signs
Temp Pulse Resp BP Pulse Ox
97.8 F 79 26 122/86 92
06/05/25 19:56 06/05/25 19:56 06/05/25 19:56 06/05/25 19:56 06/05/25 19:56
Last Documented Vital Signs
Temp Pulse Resp BP Pulse Ox
97.6 F 65 20 118/78 96
06/06/25 07:41 06/06/25 07:41 06/06/25 07:41 06/06/25 07:41 06/06/25 07:41
*Pulse Oximetry
SaO2: 94
Nasal Cannula flow liters per minute: 4
Oxygen Mode of Delivery: Room air
Patient hypoxic: no
*Critical Care Note
Total Time (30-74mins, 75-104mins- exclusive of procedures): Not Applicable
ED Attending Note
-
Portions of this chart may have been created with voice recognition software.� Occasional wrong word or��sound alike� substitutions may have occurred due to the inherent limitations of voice recognition software.
Discharge Plan
Departure
Patient Disposition: Admit
Date of Disposition: 06/06/25
Time of Disposition: 00:17
Admit to: Med/Surg
Presentation/result/management discussed w/ accepting MD/DO: Hospitalist
Patient with high blood pressure during this ER visit?: Yes
Condition: Fair
Discharge Problem:
Acute hypoxic respiratory failure, Colon distention
Interventions
Interventions:
*Risk Screen - Suicide Last Done: 06/05/25 19:56
*General Assessment Last Done: 06/05/25 19:56
*Neglect/Abuse Screening Last Done: 06/05/25 20:31
*ED- Fall Risk Assessment Last Done: 06/05/25 20:59
*Nursing Disposition Last Done: 06/06/25 03:01
ED- Cardiac Assessment Last Done: 06/05/25 20:59
ED- Pulmonary Assessment Last Done: 06/05/25 20:59
Discharge Date and Time
Discharge Date/Time: 06/06/25 03:01
[2025-06-05 21:42] LABS: Carbon Dioxide 25 mmol/L (22-30); Chloride 101 mmol/L (98-107); Potassium 4.3 mmol/L (3.5-5.1); Sodium 136 mmol/L (135-145)
--- NOTE | 2025-06-05 21:58 | EDRN ---
aeronautical engineering technologist called and said pt unable to lie flat long enough for CT due to sob. aeronautical engineering technologist asked if scan can be done dry, will take less time. RICHARD Natarajan informed and said scan can be done dry. aeronautical engineering technologist informed.
[2025-06-05 22:00] VITALS: BP 164/113
--- NOTE | 2025-06-05 22:41 | EDRN ---
Pt returned from CT/xray - smears of stool on white pad. Pt stood at bedside, given wet wipes to wipe his bottom. Gown and white pad changed, monitoring equipment wiped down due to stool. Pt sitting on side of stretcher for comfort
[2025-06-05 23:02] VITALS: BP 115/63
[2025-06-05] MEDS: TORADOL 15 MG IV (23:03)
[2025-06-05 23:37] LABS: Troponin I 0.014 ng/ml
[2025-06-06] VITALS: BP 111/70
[2025-06-06] MEDS: ROCEPHIN 2000 MG IV (00:40)
--- NOTE | 2025-06-06 00:49 | EDRN ---
Called pharmacy for vibramycin IV
[2025-06-06] MEDS: VIBRAMYCIN 260 MG IV ×2 (01:16→13:02)
--- NOTE | 2025-06-06 01:23 | HPS.HSE ---
Family Physician
-
Family Physician: NOT KNOW UNKNOWN - PT DOES
Chief Complaint
-
Shortness of breath
History of Present Illness
This is a 64-year-old with past medical history significant for atrial fibrillation, hypertension, CHF, chronic colonic distention recently admitted 2 weeks ago for episode of 5 weeks of constipation and colonic distention, status post neostigmine
treatment with improvement in his constipation and ultimately discharged on a regular diet with planned follow-up by GI and surgery. He now returns to the emergency department with difficulty breathing and abdominal pain which is similar to his
prior presentation. However at this time patient was hypoxic on arrival in the ED. He states he is taking his Lasix at home without any improvement. He denies any cough. He denied vomiting. Denies having any fevers or chills. He denies any
acute weight gain or weight loss.
In the emergency department he had a temp of nine 7.8, blood pressure was 110/70 with a pulse rate of 75 and he was satting 92% on room air. He has a white count of 12.6 with the CBC otherwise unremarkable. Electrolytes were normal. BUN 78 and 49
with creatinine of 1.0 and glucose of 160. His BNP was 551 and troponin 0.014. ECG shows a normal sinus rhythm at a rate of 77. Nonspecific ST-T wave changes.
Chest x-ray shows patchy opacities in the mid lower lungs. CT of the abdomen pelvis with significant gaseous distention of a large portion of the colon. No gross evidence for free intraperitoneal air. Patchy parenchymal opacity within the
visualized lower lung, most likely atelectasis. Pneumonia is a differential consideration, felt to be less likely based on morphologic appearance.
Medical History
Past Medical History
Past Medical History: Reports Other
Additional Past Medical History:
Chronic HFrEF
Paroxysmal Atrial Flutter
Hypertension
DM-II
Obesity
Colonic Inertia / Dysmotility
Chronic Pain Syndrome
Chronic Opioid Dependence
BPH
Past Surgical History: Reports Other
Additional Past Surgical History:
Bilateral ARUNA
Right TKA
DCCV (January 2025)
Social History
Tobacco: Non-smoker
Alcohol: Occasional
Drug: None
Family History
Family History: Not pertinent
Allergies / Home Medications
Allergies reflects when Allergies were last updated in [facility].
Home Medications with original date entered in [facility]
Allergy/Medication List:
Allergies
Allergy/AdvReac Type Severity Reaction Status Date / Time
No Known Allergies Allergy Verified 04/08/25 20:21
Home Medications
atorvastatin 40 mg tablet 40 mg PO HS High Cholesterol 12/24/24
buprenorphine 4 mg-naloxone 1 mg sublingual film (Suboxone) 1 film buccal DAILY Opioid use disorder 12/24/24
amiodarone 200 mg tablet 200 mg PO DAILY Arrhythmia 02/02/25
furosemide 40 mg tablet (Lasix) 40 mg PO QPM Fluid Retention/Swelling 03/03/25
insulin aspart U-100 100 unit/mL (3 mL) subcutaneous pen (Novolog FlexPen U-100 Insulin aspart) 20 sliding scale dose SC AC Diabetes 03/03/25
insulin glargine 100 unit/mL (3 mL) subcutaneous pen (Lantus Solostar U-100 Insulin) 24 unit SC DAILY Diabetes 03/03/25
linaclotide 290 mcg capsule (Linzess) 290 mcg PO DAILY Constipation 03/03/25
spironolactone 25 mg tablet 25 mg PO DAILY Blood Pressure 03/03/25
Metamucil 2 tbsp PO ONCE PRN constipation 05/18/25
acetaminophen 500 mg tablet (Tylenol Extra Strength) 1,000 mg PO BIDPRN PRN mild pain 05/18/25
lactulose 10 gram/15 mL oral solution 15 - 30 ml PO BIDPRN PRN constipation 05/18/25
lidocaine 1.8 % topical patch (ZTlido) 1 patch topical DAILYPRN PRN upper right arm/shoulder 05/18/25
magnesium citrate 10.5 oz PO Q2HPRN PRN constipation 05/18/25
metoprolol succinate 100 mg tablet,extended release 24 hr 100 mg PO HS 05/18/25
rivaroxaban 20 mg tablet (Xarelto) 20 mg PO HS 05/18/25
white petrolatum 42 % topical ointment (Hydrophor) 1 applic topical DAILYPRN PRN apply to B/L legs & feet 05/18/25
Review of Systems
-
History Source: Patient
A 12 point ROS was completed and negative except as noted: Yes
Constitutional: Denies Fever or Chills
EENT: Denies Sore Throat
Respiratory: Reports Trouble Breathing
Cardiac: Denies Chest Pain or Palpitations
Abdomen/GI: Reports Constipated; Denies Abdominal Pain, Nausea, Vomiting, Bloody Stools or Black Stools
: Denies Dysuria, Frequency or Flank Pain
Musculoskeletal: Reports Edema
Neurological: Denies Dizzy or Headache
Psych: Denies Depression or Anxiety
Physical Exam
Vital Signs
Vital Signs
Temp Pulse Resp BP Pulse Ox
97.8 F 75 21 111/70 92
06/05/25 19:56 06/06/25 00:00 06/06/25 00:00 06/06/25 00:00 06/06/25 00:10
Physical Exam
General: Well Developed
HEENT: NormoCephalic, Moist mucous membranes, Atraumatic and PERRLA
Respiratory: Clear, Non Labored Respirations and Other (Decreased BS at bases ); No Wheezes or Rhonchi
Cardiac: S1/S2 (Distant S1 S2.); No Murmur
GI: Other (Markedly distended abdomen. Not tender. Bowel sounds are present but diminished. )
Musculoskeletal: No Clubbing and No Cyanosis
Neuro: AO x 3 and Nonfocal/grossly intact
Hematologic/Lymphatic: No Lymphadenopathy
Psych: Calm
Laboratory Results
-
06/05/25 20:51
08/01/25 20:51
Laboratory Results
Total Bilirubin 0.9 mg/dl (0.2-1.3) 06/05/25 20:51
AST 20 U/L (17-59) 06/05/25 20:51
ALT 11 U/L (0-50) 06/05/25 20:51
Alkaline Phosphatase 119 U/L (38-126) 06/05/25 20:51
Troponin I 0.014 ng/ml 06/05/25 23:02
Lipase 37 U/L (23-300) 06/05/25 20:51
Data Reviewed
-
Diagnostic Radiology: Image Personally Visualized and interpreted
CT Scan: Report Reviewed by me
Medical Tests (Nuc Med, Echo, EKG etc): Image Personally Visualized and interpreted
Lab Data: Labs Reviewed by me
Old Records: Reviewed
Impression/Plan
-
IMPRESSION:
64-year-old was recently developed colonic ileus likely secondary to chronic opioid dependence requiring neostigmine treatment in December and again 2 weeks ago. Patient however reported that he was more helped after receiving milk of molasses on
his last admission. He is pending outpatient colorectal evaluation. He is hypoxia, shortness of breath the x-ray consistent with pneumonia versus atelectasis. He is afebrile here. He denies any nausea or vomiting. He reports cough that is only
productive of sputum once.
PLAN:
1. Hypoxia -pneumonia versus atelectasis
- admit to med/surg
- check procalcitonin
- Continue iv doxycycline/ceftriaxone
- hold lasix for now
- incentive spirometery as tolerated
- prn nebs
2. Colonic ileus - Colonic ileus with gasseous distension and fecal impaction. Refused digital disimpaction.
- milk of molasses enema, patient reports more effective on his last admission
- continue home linzess and laxative regimen
- consider neostigimine if enema in effective
- clear liquid diet
- GI consult
3. AFIB
- continue rivaroxaban
- continue metoprolol and amio
4. DM II
- sliding scale insulin for now
5. CHF
- no evidence of fluid retention
- hold diuretics
DVT PPX - on Xarelto
Code status - Full code
--- NOTE | 2025-06-06 01:58 | EDRN ---
Informed by RICHARD Hi that pt declined digital disimpaction. Pt says he does not feel comfortable with this. Informed pt of enema order and he said 'I prefer to not do that at this time.' Pt says he does not have the lung capacity and has
to wait for his antibiotics to 'kick in.' Explained to pt that abx take 24-48 hours to take effect. Pt again said he would not do the enema now and would consider it later after he is stronger and his lungs are better. Jasvir RAMOS informed of
pt's declination of enema.
[2025-06-06 02:00] VITALS: BP 100/89
--- NOTE | 2025-06-06 03:20 | PTCARENOTE ---
Pt arrived to unit from ED via wheelchair on 6L of O2. Pt ambulated into room. 6L of O2 maintained. Pt oriented to unit with call light within reach. Wound on left foot draining serous fluid. Wound cleaned and dressed. Wound consult placed.
Discussed with pt about order for milk & molasses enema. Pt refusing enema at this time as he is short of breath and wants to wait until he can breathe better. Plan of care ongoing.
[2025-06-06 03:24] VITALS: BP 116/68
[2025-06-06 03:26] VITALS: BMI 43.2
[2025-06-06 04:05] VITALS: BMI 43.2
[2025-06-06 06:00] VITALS: BMI 43.2
[2025-06-06 06:57] LABS: Hematocrit 40.1 % (39.0-52.0); Hemoglobin 12.6 g/dL (13.0-18.0); Mean Corp Hgb Conc. 31.4 g/dL (33.0-37.0); Mean Corpuscular Volume 84.1 fL (80.0-94.0); Platelet Count 234 10^3/uL (130-400); Red Cell Dist. Width 14.7 % (11.5-14.5)
[2025-06-06 07:15] LABS: Blood Urea Nitrogen 53 mg/dl (9-20); Calcium 9.4 mg/dl (8.4-10.2); Carbon Dioxide 27 mmol/L (22-30); Chloride 101 mmol/L (98-107); Estimated Creatinine Clearance 100 ml/min; Glucose 145 mg/dl (70-99); Potassium 5.0 mmol/L (3.5-5.1); Sodium 138 mmol/L (135-145); eGFR > 60.00
[2025-06-06 07:25] LABS: Procalcitonin 0.13 ng/ml (0.0-0.25)
[2025-06-06 07:32] LABS: Glucose - Point of Care 150 mg/dl (70-99)
[2025-06-06 07:41] VITALS: BP 118/78
[2025-06-06] MEDS: SUBUTEX 4 MG SL (07:45)
[2025-06-06] MEDS: LINZESS 290 MCG PO (07:45)
[2025-06-06] MEDS: MIRALAX 17 GRAMS PO ×2 (07:45→21:33)
[2025-06-06] MEDS: NOVOLOG FLEXPEN-MODERATE RESISTANCE 1 UNITS SC ×2 (07:52→17:50)
--- NOTE | 2025-06-06 10:07 | CON.GI ---
Addendum entered and electronically signed by Yessy Cho MD 06/06/25 20:04:
The patient was seen and examined by me independently in collaboration with the nurse practitioner.
Past medical history/social history/medications/allergies/family history reviewed.
Lab data and imaging data reviewed.
64-year-old male past medical history of cardiomyopathy EF 35%, A flutter on Xarelto chronic opioid use, chronic constipation with recurrent admissions for chronically distended colon most recently was discharged May 20. At that time, colorectal
saw him and discussed the option of colostomy and patient was adamantly against any procedure at this time. They recommended anorectal manometry, defecography, cscope and sitz marker test outpatient. He is previously known to Dr. Olmedo. He has
in the past required neostigmine, decompression (there was concern for volvulus 12/[address] Paul), enemas. He was on liness outpatietn prior to his May admission which did not help. He is now is readmitted with shortness of breath and
hypoxia. O2 sat 91% on admission. Found on abdominal x-ray to have significant colonic dilation up to 17.9 cm in the mid transverse colon. He also had a CT scan yesterday which showed significant gaseous distention of the large portion of the
colon limiting evaluation. There is opacity in the lower lung thought less likely to be pneumonia. He also underwent a chest x-ray which showed patchy parenchymal opacity in the lungs increased from prior as well as dilated loops of bowel. He was
given a milk of molasses enema earlier today and brown bowel movement was recorded. Dec he responded to neostigmine; May only had cramps with neostigmine but responded to milk of molasses enemas. Had incidentally found kidney lesion on CT from
May which he has seen [place] for.
Today he states no BM since his last admission for the last 2 weeks. He is EXTREMELY distended. He apparently did have a large BM with milk of molassess this am. I discussed with him neostigmine, flex sig for decompression but patient is
resistant to both - I did d/w him my concern for perforation given his severe distension. He is willing to do another milk of molasses tonight and in AM and repeat XR in AM - if no better will upgrade to IMU for neostigmine (will have to check dose
he said higher dose helps and he needs to sit on the toilet when he gets it. D/w hospitalist and nurse. Will need to push up his appt with us currently 08/[address] Olmedo.
Original Note:
Consultation
-
Date/Time Consultation Requested: 06/06/25314
Date/Time Consultation Performed: 06/06/25929
Requesting Provider: Dr. Navarro
Performing Provider: Dr. Cho/amador SR
Reason for Consultation: ileus
Medical History
Chief Complaint / HPI
Chief Complaint: SOB
History of Present Illness:
64yo with hx IDDM, HTN, hypercholesterolemia, cardiomyopathy, chronic pain, BPH, bilateral lower extremity wounds, sleep apnea, a flutter, HFpEF, obesity, chronic constipation with recurrent issues with colonic motility, chronic opioid dependence,
depression presents with shortness of breath. The patient has had issues with abdominal distention, bloating and constipation since September 2024 with admissions requiring decompression, enemas and neostigmine. The patient has not been able to
follow-up with the office as an outpatient. Patient was last hospitalized 05/20/2025 for colonic motility dysfunction/Westfield syndrome requiring enemas, bowel regimen and neostigmine administration at that time. He returns after not having a bowel
movement for 2 weeks. He states that this impacted his breathing and returns with increased shortness of breath as well. He denies any fevers, chills, nausea, vomiting, signs of rectal bleeding. At the present time he did not want to use enemas
as he states that he wants to get his 'breathing under control'. I did explain to him that his constipation is likely impacting his breathing and we need to start with enemas in order to help relieve the pressure likely pushing up on his diaphragm.
The patient is markedly distended. X-ray pending from this morning. He states he had small bowel movements last evening. He is now agreeable to enema. He denies any current abdominal discomfort.
Past Medical History
Past Medical History: Arrhythmias (Atrial flutter s/p cardioversion), CHF, HTN, NIDDM and Other (Colonic motility dysfunction/colonic inertia, morbid obesity, chronic opioid dependence due to chronic pain syndrome, BPH)
Past Surgical History: Cardiac (Direct cardioversion January 2025 for atrial flutter) and Orthopedic (Bilateral total hip replacement, right knee replacement)
Social History
Tobacco: Non-Smoker
Alcohol: Occasional
Drug: Other (On Suboxone 4 mg therapy for chronic opioid dependence)
Personal:
Living: With Family ( and 2 children who are in college)
Family History
Family History: Reviewed & Not Pertinent
Allergies / Home Medications
Allergy/AdvReac Type Severity Reaction Status Date / Time
No Known Allergies Allergy Verified 06/05/25 19:56
�Medication �Instructions �Recorded
atorvastatin 40 mg tablet 40 mg PO HS High Cholesterol 12/24/24
buprenorphine 4 mg-naloxone 1 mg 1 film buccal DAILY Opioid use 12/24/24
sublingual film (Suboxone) disorder
amiodarone 200 mg tablet 200 mg PO HS Arrhythmia 02/02/25
furosemide 40 mg tablet (Lasix) 40 mg PO DAILYPRN PRN 03/03/25
swelling/bloating
insulin aspart U-100 100 unit/mL 20 sliding scale dose SC AC 03/03/25
(3 mL) subcutaneous pen (Novolog Diabetes
FlexPen U-100 Insulin aspart)
insulin glargine 100 unit/mL (3 24 unit SC DAILY Diabetes 03/03/25
mL) subcutaneous pen (Lantus
Solostar U-100 Insulin)
linaclotide 290 mcg capsule 290 mcg PO DAILY Constipation 03/03/25
(Linzess)
spironolactone 25 mg tablet 25 mg PO HS Blood Pressure 03/03/25
lidocaine 1.8 % topical patch 1 patch topical DAILYPRN PRN upper 05/18/25
(ZTlido) right arm/shoulder
magnesium citrate 10.5 oz PO DAILYPRN PRN 05/18/25
constipation
metoprolol succinate 100 mg 100 mg PO HS 05/18/25
tablet,extended release 24 hr
white petrolatum 42 % topical 1 applic topical DAILYPRN PRN 05/18/25
ointment (Hydrophor) apply to B/L legs & feet
polyethylene glycol 3350 17 gram 17 g PO BID #60 ea 05/20/25
oral powder packet
rivaroxaban 20 mg tablet (Xarelto) 20 mg PO HS 06/05/25
Review of Systems
-
All other systems: A 12 pt ROS was Negative except as stated above in HPI
Vital Signs
Temp Pulse Resp BP Pulse Ox
97.6 F 65 20 118/78 96
06/06/25 07:41 06/06/25 07:41 06/06/25 07:41 06/06/25 07:41 06/06/25 07:41
Physical Exam
Exam
General: Other (Morbidly obese)
HEENT: Anicteric
Respiratory: Clear and Other (Supplemental oxygen in place)
Cardiac: Regular Rhythm
GI: Non Tender and Distended
Musculoskeletal: Edema
Skin: Warm and Dry
Psych: Calm
Results
WBC 12.7 10^3/uL (4.8-10.8) H 06/06/25 06:43
Hgb 12.6 g/dL (13.0-18.0) L 06/06/25 06:43
Hct 40.1 % (39.0-52.0) 06/06/25 06:43
MCV 84.1 fL (80.0-94.0) 06/06/25 06:43
Plt Count 234 10^3/uL (130-400) 06/06/25 06:43
Absolute Neuts (auto) 10.7 10^3/uL (1.4-6.5) H 06/05/25 20:51
Sodium 138 mmol/L (135-145) 06/06/25 06:43
Potassium 5.0 mmol/L (3.5-5.1) 06/06/25 06:43
Chloride 101 mmol/L (98-107) 06/06/25 06:43
Carbon Dioxide 27 mmol/L (22-30) 06/06/25 06:43
BUN 53 mg/dl (9-20) H 06/06/25 06:43
Creatinine 1.2 mg/dL (0.7-1.3) 06/06/25 06:43
Calcium 9.4 mg/dl (8.4-10.2) 06/06/25 06:43
Total Bilirubin 0.9 mg/dl (0.2-1.3) 06/05/25 20:51
AST 20 U/L (17-59) 06/05/25 20:51
ALT 11 U/L (0-50) 06/05/25 20:51
Alkaline Phosphatase 119 U/L (38-126) 06/05/25 20:51
Lipase 37 U/L (23-300) 06/05/25 20:51
Diagnostic Image Results:
Chest x-ray:
Markedly distended air-filled loops of bowel are seen within the visualized upper abdomen.
Patchy parenchymal opacity within the mid to lower lungs, increasing from previous radiograph.
CT abdomen and pelvis:
IMPRESSION: Significant gaseous distention of a large portion of the colon. This contributes to limitation of this examination, as the patient cannot be fully included on the [id number] of the CT scanner.
If there can be some distal colonic decompression, repeat scan could be considered, when hopefully the patient could be entirely included on the [id number] of the exam.
No gross evidence for free intraperitoneal air.
Patchy parenchymal opacity within the visualized lower lung, most likely atelectasis. Pneumonia is a differential consideration, felt to be less likely based on morphologic appearance.
Prior GI Procedures:
EGD: none
Colonoscopy: None
Sigmoidoscopy 12/25/2024
Impression: - Preparation of the colon was poor.
- Stool in the recto-sigmoid colon.
- Dilated in the sigmoid colon.
- No specimens collected.
Assessment / Plan
-
64yo with hx IDDM, HTN, hypercholesterolemia, cardiomyopathy, chronic pain, BPH, bilateral lower extremity wounds, sleep apnea, a flutter, HFpEF, obesity, chronic constipation with recurrent issues with colonic motility, chronic opioid dependence,
depression presents with shortness of breath. The patient has had issues with abdominal distention, bloating and constipation since September 2024 with admissions requiring decompression, enemas and neostigmine. The patient has not been able to
follow-up with the office as an outpatient. Patient was last hospitalized 05/20/2025 for colonic motility dysfunction/Westfield syndrome requiring enemas, bowel regimen and neostigmine administration at that time. He returns after not having a bowel
movement for 2 weeks.
Impression:
Colonic dysmotility
Ileus
Hypoxia with pneumonia versus atelectasis
A-fib on Xarelto
Plan:
- Give milk of molasses enema
-Clear liquid diet only at this point
- Obtain x-ray of abdomen to evaluate bowel loops and stool burden
-Has required neostigmine in the past
- As recommended in the past patient needs to have bowel regimen. If fails medical therapy may need to have elective sigmoidectomy.
- Needs to have full colonoscopy as he has never had one.
- Further recommendations to be forthcoming
-
-
Thank you for consultation and allowing me to participate in the patient's care. Please call the honey grader and blender GI physician during the after hours with any questions or concerns.
[2025-06-06 11:27] VITALS: BP 105/66
[2025-06-06 12:53] LABS: Glucose - Point of Care 216 mg/dl (70-99)
[2025-06-06] MEDS: NOVOLOG FLEXPEN-MODERATE RESISTANCE 3 UNITS SC (13:02)
--- NOTE | 2025-06-06 13:31 | W.PN.HOSP.TC ---
Today's Communication/Plan
-
Assessment / Plan
Assessment / Plan
General: No Apparent Distress, Conversant
HEENT: NormoCephalic, Moist mucous membranes, Atraumatic
Respiratory: Clear and Non Labored Respirations
Cardiac: S1/S2 and Regular Rhythm; No Rub or Gallop
GI: Significantly distended, hypoactive bowel sounds
Musculoskeletal: No Edema, no deformity
Skin: Warm and dry
: NO Mason
Neuro: Awake, Alert, Nonfocal/grossly intact
Psych: Calm and Intact Judgment/Insight
Mr. Knapp is a 64-year-old male with medical history of HFpEF, A-fib/flutter, IDDM, obesity, chronic pain with subsequent opioid dependence, and chronic constipation with colonic dysmotility who presented with shortness of breath, abdominal
bloating and discomfort, constipation. His last bowel movement was 2 weeks prior to arrival. He is having increasing difficulty breathing due to worsening abdominal distention. He has had multiple similar episodes since September 2024 and has
previously required decompression. He has been treated with enemas and neostigmine previously. Abdominal imaging showed significant colonic distention with air-filled loops of bowel. He also had patchy parenchymal opacities within the mid to
lower lungs. He was mildly hypoxic and has been started on antibiotics. He has remained afebrile with a mild leukocytosis of just over 12,000. He has been admitted for further evaluation and management.
Colonic dysmotility/ileus:
- GI following, will give milk of molasses enema
- Clear liquid diet for now
- Continue home Linzess
- If medical therapy fails he may need to have an elective sigmoidectomy considering multiple similar recurrences
Hypoxia:
- Likely due to significant abdominal distention impeding normal respirations
- Abnormal appearing chest imaging, possible pneumonia
- Continue antibiotics with ceftriaxone and doxycycline
- Follow-up cultures
- Continue supplemental oxygen, titrate as able
- Continue treatment of GI issues as above
A-fib/flutter:
- Currently rate controlled, continue home metoprolol and amiodarone
- Anticoagulation with Xarelto
IDDM:
- Uses Lantus 24 units at night and sliding scale insulin at home
- Has been on sliding scale insulin alone since admission, will add reduced dose of Lantus while on modified diet
- Monitor Accu-Cheks and adjust regimen as needed
HFpEF:
- Chronic, currently compensated
- Continue beta-blockade with home metoprolol succinate 100 mg at night
- Holding home Lasix for now, continuing spironolactone
- No need for afterload reduction due to borderline hypotension
DVT prophylaxis: Xarelto
CODE STATUS: Full code
Total time spent on today's encounter was 45 minutes
Anticipated Discharge: 24 - 48 hours
Subjective/Interval History
-
Date of Service: June 06, 2025
Patient was seen and examined at bedside this morning. He continues to have significant abdominal distention and associated discomfort. We are continuing an aggressive bowel regimen for him.
Objective Data
-
Labs:
Laboratory Results
06/06/25
06:43
WBC 12.7 H
Hgb 12.6 L
Hct 40.1
Plt Count 234
Sodium 138
Potassium 5.0
Chloride 101
Carbon Dioxide 27
BUN 53 H
Creatinine 1.2
Glucose 145 H
Calcium 9.4
Vital Signs:
Vital Signs
Temp Pulse Resp BP Pulse Ox
97.6 F 75 24 105/66 95
06/06/25 11:27 06/06/25 11:27 06/06/25 11:27 06/06/25 11:27 06/06/25 11:27
Review of Systems
-
History Source: Patient
All other systems: Reviewed and negative
Abdomen/GI: Reports Abdominal Pain, Constipated and Bloated
Physical Exam
-
General: No Apparent Distress
[2025-06-06 16:21] VITALS: BP 165/100
[2025-06-06 17:46] LABS: Glucose - Point of Care 161 mg/dl (70-99)
[2025-06-06 21:40] LABS: Glucose - Point of Care 136 mg/dl (70-99)
[2025-06-06] MEDS: TOPROL XL 100 MG PO (21:47)
[2025-06-06] MEDS: ALDACTONE 25 MG PO (21:47)
[2025-06-06] MEDS: XARELTO 20 MG PO (21:48)
[2025-06-06] MEDS: LIPITOR 40 MG PO (21:48)
[2025-06-06] MEDS: PACERONE 200 MG PO (21:49)
[2025-06-06] MEDS: LANTUS 0.12 UNITS SC (21:49)
[2025-06-07] VITALS (9 sets, daily range): BP systolic 113–136; BP diastolic 61–97; BMI 42.7
[2025-06-07] MEDS: ROCEPHIN 2000 MG IV (00:34)
[2025-06-07] MEDS: VIBRAMYCIN 260 MG IV ×2 (00:34→12:08)
[2025-06-07] MEDS: TYLENOL 650 MG PO ×2 (01:47→17:43)
[2025-06-07 05:51] LABS: Hematocrit 37.4 % (39.0-52.0); Hemoglobin 11.8 g/dL (13.0-18.0); Mean Corp Hgb Conc. 31.6 g/dL (33.0-37.0); Mean Corpuscular Volume 82.7 fL (80.0-94.0); Nucleated Red Blood Cells % 0 % (-); Platelet Count 239 10^3/uL (130-400); Red Cell Dist. Width 14.6 % (11.5-14.5)
[2025-06-07 06:09] LABS: Blood Urea Nitrogen 54 mg/dl (9-20); Calcium 9.1 mg/dl (8.4-10.2); Carbon Dioxide 27 mmol/L (22-30); Chloride 101 mmol/L (98-107); Estimated Creatinine Clearance 108 ml/min; Glucose 146 mg/dl (70-99); Potassium 5.0 mmol/L (3.5-5.1); Sodium 135 mmol/L (135-145); eGFR > 60.00
[2025-06-07 07:52] LABS: Glucose - Point of Care 129 mg/dl (70-99)
[2025-06-07] MEDS: NOVOLOG FLEXPEN-MODERATE RESISTANCE SC ×3 (08:11→17:44)
[2025-06-07] MEDS: SUBUTEX 4 MG SL (08:56)
[2025-06-07] MEDS: MIRALAX 17 GRAMS PO ×2 (08:57→19:47)
[2025-06-07] MEDS: LINZESS 290 MCG PO (08:57)
--- NOTE | 2025-06-07 12:31 | W.PN.GI.CBS2 ---
Today's Communication / Plan
-
imu for neostigmine
Assessment / Plan
-
64-year-old male past medical history of cardiomyopathy EF 35%, A flutter on Xarelto chronic opioid use, chronic constipation with recurrent admissions for chronically distended colon most recently was discharged May 20. At that time, colorectal
saw him and discussed the option of colostomy and patient was adamantly against any procedure at this time. They recommended anorectal manometry, defecography, cscope and sitz marker test outpatient. He is previously known to Dr. Olmedo. He has
in the past required neostigmine, decompression (there was concern for volvulus 12/[address] Paul), enemas. He was on liness outpatient prior to his May admission which did not help. He is now is readmitted with shortness of breath and
hypoxia. O2 sat 91% on admission. Found on abdominal x-ray to have significant colonic dilation up to 17.9 cm in the mid transverse colon. He also had a CT scan 06/05 which showed significant gaseous distention of the large portion of the colon
limiting evaluation. There is opacity in the lower lung thought less likely to be pneumonia. He also underwent a chest x-ray which showed patchy parenchymal opacity in the lungs increased from prior as well as dilated loops of bowel. Dec he
responded to neostigmine; May only had cramps with neostigmine but responded to milk of molasses enemas. Had incidentally found kidney lesion on CT from May which he has seen [facility] for.
Admitted with no BM since his last admission for the last 2 weeks. He is EXTREMELY distended. Xray with some improvement 17.9 to 15.2 which is encouraging but his clinical exam is unchanged. Refused neostigmine yesterday now agreeable. Exam
unchanged with milk of molasses enemas. Plan to upgrade to IMU. Reviewed chart - in past he did NOT respond to 2 mg of neostigmine both in Dec and May. Given such severe distension will go straight to 4 mg of neostigmine I am very concerned he
may perforate if distension does not improve soon.
I personally reviewed Xray films.
I d/w hospitalist, surgery, nurse.
Will need to push up his appt with us currently 08/[address] Olmedo.
Extensive time coordination of care as above.
Subjective
Subjective
Date of Service: June 07, 2025
very distended
some bm/gas with enemas
Objective
Data Reviewed
Laboratory Data:
Laboratory Results
06/07/25 05:25
06/07/25 05:25
Laboratory Results
Total Bilirubin 0.9 mg/dl (0.2-1.3) 06/05/25 20:51
AST 20 U/L (17-59) 06/05/25 20:51
ALT 11 U/L (0-50) 06/05/25 20:51
Alkaline Phosphatase 119 U/L (38-126) 06/05/25 20:51
Lipase 37 U/L (23-300) 06/05/25 20:51
Vital Signs and I&O:
Vital Signs
Temp Pulse Resp BP Pulse Ox
97.6 F 57 20 123/76 94
06/07/25 07:33 06/07/25 07:33 06/07/25 07:33 06/07/25 07:33 06/07/25 07:33
I&O
06/06/25 06/07/25 06/08/25
06:59 06:59 06:59
Intake Total 1440 / 1440
Balance 1440 / 1440
Physical Exam
Physical Exam
GI: Distended (extremely distended) and Non Tender
--- NOTE | 2025-06-07 12:45 | PTCARENOTE ---
Patient arrived to IMU. Patient stood and pivoted from wheelchair to bed assist x2. SpO2 88% on 4L NC upon arrival. Oxygen turned up to 6L NC with SpO2 92%. BP stable. L foot dressing replaced. L foot red/purple and oozing clear fluid. Dorsalis
pedis pulses present with doppler. Call bedoya within reach, bed in lowest position, and bed of wheels locked.
--- NOTE | 2025-06-07 12:59 | PTCARENOTE ---
pt transferred to IMU room 3342 as ordered by MD at 1245 on tele and 4L of O2 via wheelchair with belongs.
[2025-06-07] MEDS: PROSTIGMIN 4 MG IV (13:27)
[2025-06-07 13:36] LABS: Glucose - Point of Care 165 mg/dl (70-99)
--- NOTE | 2025-06-07 13:37 | PTCARENOTE ---
Neostigmin 4mg IV administered by Dr. lAbarran. Medication scanned by Maite Masters RN. Patient on continuous heart monitor. Code cart at bedside per protocol. HR 40's-60's. Patient is diaphoretic. Dr. Albarran at bedside. Care ongoing.
--- NOTE | 2025-06-07 13:54 | W.PN.UPDATE ---
Update Note
Progress Note Update
saw patient again in unit got 4 neostigmine on toilet heart rate 40-50 no atropine needed yet but diaphoretic
will monitor d/w hospitalist
if no improvement will consult colorectal surg in am
hold xarelto for now in case procedure needed
--- NOTE | 2025-06-07 14:39 | W.PN.HOSP.TC ---
Today's Communication/Plan
-
Assessment / Plan
Assessment / Plan
General: No Apparent Distress, Conversant
HEENT: NormoCephalic, Moist mucous membranes, Atraumatic
Respiratory: Clear and Non Labored Respirations
Cardiac: S1/S2 and Regular Rhythm; No Rub or Gallop
GI: Significantly distended, active bowel sounds
Musculoskeletal: No Edema, no deformity
Skin: Warm and dry
: NO Mason
Neuro: Awake, Alert, Nonfocal/grossly intact
Psych: Calm and Intact Judgment/Insight
Mr. Knapp is a 64-year-old male with medical history of HFpEF, A-fib/flutter, IDDM, obesity, chronic pain with subsequent opioid dependence, and chronic constipation with colonic dysmotility who presented with shortness of breath, abdominal
bloating and discomfort, constipation. His last bowel movement was 2 weeks prior to arrival. He is having increasing difficulty breathing due to worsening abdominal distention. He has had multiple similar episodes since September 2024 and has
previously required decompression. He has been treated with enemas and neostigmine previously. Abdominal imaging showed significant colonic distention with air-filled loops of bowel. He also had patchy parenchymal opacities within the mid to
lower lungs. He was mildly hypoxic and has been started on antibiotics. He has remained afebrile with a mild leukocytosis of just over 12,000. He has been admitted for further evaluation and management.
Colonic dysmotility/ileus:
- Abdomen remains significantly distended despite multiple medical classes enemas and subsequent bowel movements
- Upgraded to IMU today, pushed 4 mg neostigmine around 1:30 PM, awaiting peristaltic response
- GI following, appreciate guidance, may need to involve colorectal surgical team if no improvement
- Clear liquid diet for now
- Continue home Linzess
- If medical therapy fails he may need to have an elective sigmoidectomy considering multiple similar recurrences, holding home Xarelto pending any needed surgical interventions, last dose evening of 06/06
Hypoxia:
- Likely due to significant abdominal distention impeding normal respirations
- Abnormal appearing chest imaging, possible pneumonia
- Continue antibiotics with ceftriaxone, MRSA screen negative so we will discontinue doxycycline
- Continue supplemental oxygen, titrate as able
- Continue treatment of GI issues as above
A-fib/flutter:
- Currently rate controlled, continue home metoprolol and amiodarone
- Holding home Xarelto pending any needed surgical interventions, last dose evening of 06/06
IDDM:
- Uses Lantus 24 units at night and sliding scale insulin at home
- Has been on sliding scale insulin alone since admission, will add reduced dose of Lantus while on modified diet
- Monitor Accu-Cheks and adjust regimen as needed
HFpEF:
- Chronic, currently compensated
- Continue beta-blockade with home metoprolol succinate 100 mg at night
- Holding home Lasix for now, continuing spironolactone, monitor daily weights
- No need for afterload reduction due to borderline hypotension
DVT prophylaxis: Holding home Xarelto pending any needed surgical interventions, last dose evening of 06/06
CODE STATUS: Full code
Total time spent on today's encounter was 55 minutes
Anticipated Discharge: > 48 hours
Subjective/Interval History
-
Date of Service: June 07, 2025
Patient was seen and examined at bedside. Abdomen remains significantly distended despite multiple enemas and bowel movements. Plan for transfer to IMU today for trial of neostigmine.
Objective Data
-
Labs:
Laboratory Results
06/07/25
05:25
WBC 11.0 H
Hgb 11.8 L
Hct 37.4 L
Plt Count 239
Sodium 135
Potassium 5.0
Chloride 101
Carbon Dioxide 27
BUN 54 H
Creatinine 1.1
Glucose 146 H
Calcium 9.1
Vital Signs:
Vital Signs
Temp Pulse Resp BP Pulse Ox
97.6 F 64 18 136/85 92
06/07/25 14:15 06/07/25 14:00 06/07/25 14:00 06/07/25 14:00 06/07/25 14:04
I&O
06/06/25 06/07/25 06/08/25
06:59 06:59 06:59
Intake Total 1440 / 1440
Balance 1440 / 1440
Review of Systems
-
History Source: Patient
All other systems: Reviewed and negative
Respiratory: Reports Trouble Breathing
Abdomen/GI: Reports Abdominal Pain and Bloated
Physical Exam
-
General: No Apparent Distress
[2025-06-07 17:52] LABS: Glucose - Point of Care 183 mg/dl (70-99)
[2025-06-07] MEDS: LIPITOR 40 MG PO (19:48)
[2025-06-07] MEDS: PACERONE 200 MG PO (19:48)
[2025-06-07] MEDS: TOPROL XL 100 MG PO (19:48)
[2025-06-07] MEDS: ALDACTONE 25 MG PO (19:48)
[2025-06-07] MEDS: LANTUS 0.12 UNITS SC (21:37)
[2025-06-07 21:48] LABS: Glucose - Point of Care 191 mg/dl (70-99)
[2025-06-08] VITALS (14 sets, daily range): BP systolic 88–171; BP diastolic 43–93; BMI 42.4; BMI 42.2
[2025-06-08] MEDS: ROCEPHIN 2000 MG IV (00:21)
[2025-06-08 04:55] LABS: Hematocrit 38.1 % (39.0-52.0); Hemoglobin 12.3 g/dL (13.0-18.0); Mean Corp Hgb Conc. 32.3 g/dL (33.0-37.0); Mean Corpuscular Volume 80.4 fL (80.0-94.0); Nucleated Red Blood Cells % 0 % (-); Platelet Count 267 10^3/uL (130-400); Red Cell Dist. Width 14.6 % (11.5-14.5)
[2025-06-08 05:25] LABS: Blood Urea Nitrogen 64 mg/dl (9-20); Calcium 9.9 mg/dl (8.4-10.2); Carbon Dioxide 24 mmol/L (22-30); Chloride 98 mmol/L (98-107); Estimated Creatinine Clearance 108 ml/min; Glucose 181 mg/dl (70-99); Potassium 5.5 mmol/L (3.5-5.1); Sodium 132 mmol/L (135-145); eGFR > 60.00
--- NOTE | 2025-06-08 06:09 | PTCARENOTE ---
Patient states a doctor told him he would receive a milk & molasses enema overnight. Patient has received milk & molasses enema x2 as ordered. [place] text Dr. Cho to clarify enema order and the need to administer. MD will see patient this
morning. Plan for Abd XR as soon as possible. Will pass along to dayshift team.
[2025-06-08 07:50] LABS: Glucose - Point of Care 181 mg/dl (70-99)
[2025-06-08] MEDS: NOVOLOG FLEXPEN-MODERATE RESISTANCE SC ×2 (07:55→19:15)
--- NOTE | 2025-06-08 08:37 | PTCARENOTE ---
Patient found on bedside commode by himself during shift change. Patient educated that he needs to ring call bedoya before getting out of the chair or bed. Patient verbalized understanding. Chair alarm and bed alarm in place and audible. Call bedoya
within reach. Care ongoing.
[2025-06-08] MEDS: MIRALAX PO ×2 (08:53→19:56)
--- NOTE | 2025-06-08 08:59 | W.PN.GI.CBS2 ---
Today's Communication / Plan
-
decompressive cscope
Assessment / Plan
-
64-year-old male past medical history of cardiomyopathy EF 35%, A flutter on Xarelto chronic opioid use, chronic constipation with recurrent admissions for chronically distended colon most recently was discharged May 20. At that time, colorectal
saw him and discussed the option of colostomy and patient was adamantly against any procedure at this time. They recommended anorectal manometry, defecography, cscope and sitz marker test outpatient. He is previously known to Dr. Olmedo. He has
in the past required neostigmine, decompression (there was concern for volvulus 12/[address] Paul), enemas. He was on liness outpatient prior to his May admission which did not help. He is now is readmitted with shortness of breath and
hypoxia. O2 sat 91% on admission. Found on abdominal x-ray to have significant colonic dilation up to 17.9 cm in the mid transverse colon. He also had a CT scan 06/05 which showed significant gaseous distention of the large portion of the colon
limiting evaluation. There is opacity in the lower lung thought less likely to be pneumonia. He also underwent a chest x-ray which showed patchy parenchymal opacity in the lungs increased from prior as well as dilated loops of bowel. Dec he
responded to neostigmine; May only had cramps with neostigmine but responded to milk of molasses enemas. Had incidentally found kidney lesion on CT from May which he has seen [facility] for.
Admitted with no BM since his last admission for the last 2 weeks. He is EXTREMELY distended. No improvement with neostigmine 4.
I d/w GI physicians who have seen him past admission, colorectal surgery in detail.
No role for repeat neostigmine no improvement with high dose yesterday. Plan for decompressive cscope - high risk however I have concerns patient will perf without it.
Ultimately he needs surgery given his multiple recurrences and such significant dilation of colon.
Appt 08/[address] Olmedo.
Extensive time coordination of care as above.
Subjective
Subjective
Date of Service: June 08, 2025
No improvement after neostigmine 4
Objective
Data Reviewed
Laboratory Data:
Laboratory Results
06/08/25 04:42
06/08/25 04:42
Laboratory Results
Total Bilirubin 0.9 mg/dl (0.2-1.3) 06/05/25 20:51
AST 20 U/L (17-59) 06/05/25 20:51
ALT 11 U/L (0-50) 06/05/25 20:51
Alkaline Phosphatase 119 U/L (38-126) 06/05/25 20:51
Lipase 37 U/L (23-300) 06/05/25 20:51
Vital Signs and I&O:
Vital Signs
Temp Pulse Resp BP Pulse Ox
97.6 F 59 19 102/66 94
06/08/25 07:27 06/08/25 08:22 06/08/25 08:22 06/08/25 08:22 06/08/25 08:47
I&O
06/07/25 06/08/25 06/09/25
06:59 06:59 06:59
Intake Total 1440 / 1440 600 / 600
Balance 1440 / 1440 600 / 600
Physical Exam
Physical Exam
GI: Distended and Non Tender
--- NOTE | 2025-06-08 09:08 | W.PN.HOSP.TC ---
Today's Communication/Plan
-
Strict NPO.
Water enema.
Possible OR today
Assessment / Plan
Assessment / Plan
Impression:
Mr. Knapp is a 64-year-old male with medical history of HFpEF, A-fib/flutter, IDDM, obesity, chronic pain with subsequent opioid dependence, and chronic constipation with colonic dysmotility who presented with shortness of breath, abdominal
bloating and discomfort, constipation. His last bowel movement was 2 weeks prior to arrival. He is having increasing difficulty breathing due to worsening abdominal distention. He has had multiple similar episodes since September 2024 and has
previously required decompression. He has been treated with enemas and neostigmine previously. Abdominal imaging showed significant colonic distention with air-filled loops of bowel. He also had patchy parenchymal opacities within the mid to
lower lungs. He was mildly hypoxic and has been started on antibiotics. He has remained afebrile with a mild leukocytosis of just over 12,000. He has been admitted for further evaluation and management.
Seen by GI, failed neostigmine, enema, status post nonsuccessful decompressive flexible sigmoidoscopy.
Surgery team consulted.
Assessment/Plan:
Colonic dysmotility/ileus:
- Abdomen remains significantly distended despite multiple medical classes enemas and subsequent bowel movements
- Upgraded to IMU today, pushed 4 mg neostigmine around 1:30 PM, awaiting peristaltic response
- GI following, appreciate guidance, may need to involve colorectal surgical team if no improvement
- Clear liquid diet for now
- Continue home Linzess
- If medical therapy fails he may need to have an elective sigmoidectomy considering multiple similar recurrences, holding home Xarelto pending any needed surgical interventions, last dose evening of 06/06
06/08
status post nonsuccessful decompressive flexible sigmoidoscopy
Surgery team consulted
Possible OR today
Discussed with patient and at [facility].
Acute hypoxic respiratory failure
- Likely due to significant abdominal distention impeding normal respirations
- Abnormal appearing chest imaging, possible pneumonia
- Continue antibiotics with ceftriaxone, MRSA screen negative so we will discontinue doxycycline
- Continue supplemental oxygen, titrate as able
- Continue treatment of GI issues as above
paroxismal A-fib/flutter:
- Currently rate controlled, continue home metoprolol and amiodarone
- Holding home Xarelto pending any needed surgical interventions, last dose evening of 06/06
IDDM:
- Uses Lantus 24 units at night and sliding scale insulin at home
- Has been on sliding scale insulin alone since admission, will add reduced dose of Lantus while on modified diet
- Monitor Accu-Cheks and adjust regimen as needed
HFpEF:
- Chronic, currently compensated
- Continue beta-blockade with home metoprolol succinate 100 mg at night
- Holding home Lasix for now, continuing spironolactone, monitor daily weights
- No need for afterload reduction due to borderline hypotension
CODE STATUS: Full code
DVT prophylaxis: hold Xarelto
Diet: strict NPO.
Family communication: Discussed with at bedside.
Disposition: Possible OR today.
Total time spent on today's encounter was 65 minutes which included time spent in counseling the patient/family regarding diagnosis and treatment plan as listed above, goals of care, and symptom management. Case was discussed with nursing staff,
specialists, and care coordinators/case management. All labs and imaging personally reviewed by me. Remainder the time spent in detailed review of previous records, lab data, imaging, and other medical provider documentation.
Anticipated Discharge: > 48 hours
Subjective/Interval History
-
Date of Service: June 08, 2025
Patient seen and examined at bedside, at bedside.
Still with severe abdominal distention, unsuccessful decompression with flexible sigmoidoscopy .
Objective Data
-
Labs:
Laboratory Results
06/08/25 06/08/25
04:42 07:44
WBC 11.4 H
Hgb 12.3 L
Hct 38.1 L
Plt Count 267
PT Pending
INR Pending
APTT Pending
Sodium 132 L
Potassium 5.5 H
Chloride 98
Carbon Dioxide 24
BUN 64 H
Creatinine 1.1
Glucose 181 H
Calcium 9.9
Vital Signs:
Vital Signs
Temp Pulse Resp BP Pulse Ox
97.6 F 59 19 102/66 94
06/08/25 07:27 06/08/25 08:22 06/08/25 08:22 06/08/25 08:22 06/08/25 08:47
I&O
06/07/25 06/08/25 06/09/25
06:59 06:59 06:59
Intake Total 1440 / 1440 600 / 600
Balance 1440 / 1440 600 / 600
Physical Exam
-
General: Well Developed, Well Nourished, No Apparent Distress and Comfortable
HEENT: Normocephalic, Atraumatic, Moist Mucous Membranes, No Ptosis, PERRLA and Nose Appears Normal
Respiratory: Rales, Rhonchi and Non Labored Respirations
Cardiac: Regular Rhythm and S1/S2
Breast: Deferred by me
GI: Tender and Distended
Genito-urinary: No Costovertebral Tender
Musculoskeletal: No Clubbing, No Cyanosis and No Edema
Skin: Warm
Neuro: Awake, Alert, Oriented, AO x 3 and No Motor Deficits
Psych: Calm
Data Reviewed
-
Diagnostic Radiology: Image personally visualized and interpreted and Report Reviewed by me
CT Scan: Image personally visualized and interpreted and Report Reviewed by me
Ultrasound: Image personally visualized and interpreted and Report Reviewed by me
MRI: Image personally visualized and interpreted and Report Reviewed by me
Medical Tests (Nuc Med, Echo etc): Image personally visualized and interpreted and Report Reviewed by me
Labs: Labs Reviewed by me
Old Records: Reviewed
[2025-06-08] MEDS: SUBUTEX 4 MG SL (09:09)
[2025-06-08] MEDS: LINZESS 290 MCG PO (09:09)
--- NOTE | 2025-06-08 09:16 | WOUNDNOTE ---
WO RN note: Patient admitted with pneumonia, constipation. Patient lives with his . He wears knee high compression. He plans to return to [facility] wound care center for his L dorsal foot venous wound.
See H&P for complete history.
PMH: a fib, HTN, CHF, DM, constipation, obesity, chronic pain syndrome with opioid use, bilateral ARUNA, R TKA.
Wound Location and type/assessment: Patient admitted with: dermal ulcers on L dorsal foot draining copious serous drainage r/t venous edema. L lateral calf almost healed venous stasis dermal ulcer. Coccyx discolored suspect r/t chronic pressure. +1
LLE edema. Trace RLE edema. 03/04/25 LLE venous Doppler was negative for DVT. He uses [place] compression wraps at home. Pedal pulses heard via portable Doppler.
Appetite: currently NPO.
Pressure redistribution devices in place: [employer] retsCloud air bed. Patient in wide recliner chair. He stood during sacral/buttocks skin check.
Plan: L foot and LLE dressings changed. Vaseline applied to Le's. Bilateral knee high Yonatan wraps reapplied. t/c SPD and ordered a bariatric air chair cushion.
Will confirm orders with Dr. Villanueva and discussed with LAWRENCE Arora.
Care plan to be updated and will follow as needed.
Note to case management requested for discharge: VN if goes home.
Recommend follow up at his wound care center.
--- NOTE | 2025-06-08 09:22 | WOUNDNOTE ---
[facility] RN note: Patient stoma marked upper quadrants per Dr. Bocanegra's request. Stoma marked with patient in sitting position. Patient's abdomen grossly distended making stoma marking extremely difficult. LUQ stoma agustín 9.5cm to L of midline and 19.5cm
above the umbilical line. RUQ stoma marked 6.5cm to R of midline and 18.5cm above the umbilical line.
--- NOTE | 2025-06-08 09:26 | WOUNDNOTE ---
[facility] RN note: Patient stoma marked upper quadrants per Dr. Bocanegra's request. Stoma marked with patient in sitting position over the rectus muscle avoiding scars or skin creases. Patient's abdomen grossly distended making stoma marking extremely
difficult. LUQ stoma agustín 9.5cm to L of midline and 19.5cm above the umbilical line. RUQ stoma marked 6.5cm to R of midline and 18.5cm above the umbilical line. Instructed patient surgeon makes the final decision with stoma placement. Discussed with
Dr. Bocanegra.
[2025-06-08 09:40] LABS: INR 1.47; PT 18.1 Sec (11.4-14.6)
[2025-06-08 09:41] LABS: APTT 36.6 Sec (23.4-35.0)
--- NOTE | 2025-06-08 10:12 | PTCARENOTE ---
Patient transported to GI lab by patient transport. VSS. Patient wearing 3L NC.
--- NOTE | 2025-06-08 10:56 | CM ---
CM attempted bedside visit with pt- off unit for procedure
IA completed from chart review as pt recently admitted from 05/18-05/20
Pt resides with his spouse in a 2SH with 3 VU, full flight to 2nd floor
Pt is indep with his ADLs
Has a SPC and VN hx due to past knee surgery
No SNF hx
PCP- Shankar Mena
Rx- [facility]
Pt for decompressive colonoscopy today
Discharge Disposition- home, follow for possible VN needs
--- NOTE | 2025-06-08 11:21 | W.PN.UPDATE ---
Update Note
Progress Note Update
D/w Corine Mcduffie
Patient going to OR
GI will sign off pls call with ?s
[2025-06-08] MEDS: NOVOLOG FLEXPEN-MODERATE RESISTANCE 1 UNITS SC (11:38)
[2025-06-08 11:48] LABS: Glucose - Point of Care 182 mg/dl (70-99)
--- NOTE | 2025-06-08 12:42 | CON.CRS ---
Consultation
-
Date/Time Consultation Requested: 06/08/2025,
Date/Time Consultation Performed: 06/08/2025,
Requesting Provider: Yessy Cho MD
Performing Provider: Samir Bocanegra MD
Reason for Consultation: constipation
Medical History
-
Chief Complaint: abdominal pain
History of Present Illness:
64-year-old male presents to [place] [facility] on 06/06/2025 complaining of abdominal pain, distention, and constipation. He was recently admitted on 05/18/2025 with 5 weeks of constipation. Ultimately was decided he had colonic dysmotility and underwent
a bowel regimen by gastroenterology and was inevitably discharged without surgery. We had seen him prior to this earlier this year with the same problem of constipation/[place] syndrome and colonic dysmotility. Last admission he was given
neostigmine which did seem to help. Upon discharge it was recommended that he undergo anal manometry, difficult to free, and a sits marker test as well as a colonoscopy. He was also told to continue his home Linzess of 290 mix daily as well as mag
citrate and MiraLAX as needed. Apparently GI had called him to schedule the appointment but he missed the calls. He had called the office himself and was given an appointment in later July. He states that since discharge he did well for a
while but then noticed he gradually was getting more distended again. He due to difficulty breathing as well as abdominal pain he presented to the ER. This time he was hypoxic on arrival to the emergency department. In the ER he had a white count
of 12.6 and was satting 92% on room air. X-ray of the chest showed opacities in the mid lower lungs. CT of the abdomen pelvis showed significant gas distention and a large portion of the colon with no evidence of free intraperitoneal air.
Gastroenterology was then consulted. He underwent an mL, last this enema and produced a large bowel movement. It was discussed neostigmine as well as a flexible sigmoidoscopy for decompression but the patient was hesitant to do so. He underwent
several more enemas. Given continued distention, he then underwent another dose of 4 mg of neostigmine and was transferred to IMU for monitoring. His heart rate dropped to 40-50 but no atropine was given but he was diaphoretic. Unfortunately
there was no improvement after neostigmine was administered. X-ray of the abdomen this morning showed diffuse marked colonic dilation with measurement of caliber of the upper colon slightly greater the obstruction series of June 07. The colon has
a diameter of approximately 17.5 cm. No free intraperitoneal air. We were consulted this morning by Dr. Cardoso prior to the colonoscopy to discuss this with the patient. Dr. Bocanegra discussed surgery at length with the patient should the
decompressive colonoscopy fail. He then underwent the decompressive sigmoidoscopy today. At this point I was called into the GI suite to watch. The scope was advanced to about 20 cm into the sigmoid however due to severe distention as well as
fecal material, a decompression was unable to be performed. Of note, he is on Xarelto at home and his last dose was on 06/06/2025 at 22:00.
Past Medical History
Past Medical History: Other (Chronic HFrEF, Paroxysmal Atrial Flutter, Hypertension, DM-II, Obesity Colonic Inertia / Dysmotilit,y Chronic Pain Syndrome, Chronic Opioid Dependence, BPH, morbid obesity)
Past Surgical History: Other (Bilateral ARUNA, Right TKA, DCCV (January 2025))
Social History
Tobacco: Non-Smoker
Alcohol: Occasional
Drug: None
Allergies / Home Medications
Allergy/AdvReac Type Severity Reaction Status Date / Time
No Known Allergies Allergy Verified 06/05/25 19:56
�Medication �Instructions �Recorded �Confirmed �Type
atorvastatin 40 mg tablet 40 mg PO HS High Cholesterol 12/24/24 06/05/25 History
buprenorphine 4 mg-naloxone 1 mg 1 film buccal DAILY Opioid use 12/24/24 06/05/25 History
sublingual film (Suboxone) disorder
amiodarone 200 mg tablet 200 mg PO HS Arrhythmia 02/02/25 06/05/25 History
furosemide 40 mg tablet (Lasix) 40 mg PO DAILYPRN PRN 03/03/25 06/05/25 History
swelling/bloating
insulin aspart U-100 100 unit/mL 20 sliding scale dose SC AC 03/03/25 06/05/25 History
(3 mL) subcutaneous pen (Novolog Diabetes
FlexPen U-100 Insulin aspart)
insulin glargine 100 unit/mL (3 24 unit SC DAILY Diabetes 03/03/25 06/05/25 History
mL) subcutaneous pen (Lantus
Solostar U-100 Insulin)
linaclotide 290 mcg capsule 290 mcg PO DAILY Constipation 03/03/25 06/05/25 History
(Linzess)
spironolactone 25 mg tablet 25 mg PO HS Blood Pressure 03/03/25 06/05/25 History
lidocaine 1.8 % topical patch 1 patch topical DAILYPRN PRN upper 05/18/25 06/05/25 History
(ZTlido) right arm/shoulder
magnesium citrate 10.5 oz PO DAILYPRN PRN 05/18/25 06/05/25 History
constipation
metoprolol succinate 100 mg 100 mg PO HS Heart Failure 05/18/25 06/05/25 History
tablet,extended release 24 hr
white petrolatum 42 % topical 1 applic topical DAILYPRN PRN 05/18/25 06/05/25 History
ointment (Hydrophor) apply to B/L legs & feet
polyethylene glycol 3350 17 gram 17 g PO BID #60 ea 05/20/25 06/05/25 Rx
oral powder packet
rivaroxaban 20 mg tablet (Xarelto) 20 mg PO HS Blood Clot 06/05/25 06/05/25 History
Prevention/Tx
dapagliflozin propanediol 5 mg 5 mg PO DAILY Diabetes 06/07/25 06/07/25 History
tablet (Farxiga)
lisinopril 5 mg tablet 5 mg PO DAILY Blood Pressure 06/07/25 06/07/25 History
Review of Systems
-
History Source: Patient
Respiratory: Trouble Breathing
Abdomen/GI: Abdominal Pain and Constipated
A 10 point review of systems was completed, and was negative except as per HPI.
Physical Exam
Vital Signs
Temp 97.6 F 06/08/25 07:27
Pulse 61 06/08/25 10:00
Resp Rate 23 06/08/25 10:00
Blood pressure 117/76 06/08/25 10:00
SaO2 92 06/08/25 10:00
06/07/25 06/08/25 06/09/25
06:59 06:59 06:59
Actual Weight 154.93 kg 153.9 kg
Body Mass Index (BMI) 42.4
Lab Results / Allergies
06/08/25 04:42
06/08/25 04:42
WBC 11.4 10^3/uL (4.8-10.8) H 06/08/25 04:42
Hgb 12.3 g/dL (13.0-18.0) L 06/08/25 04:42
Hct 38.1 % (39.0-52.0) L 06/08/25 04:42
Plt Count 267 10^3/uL (130-400) 06/08/25 04:42
Abs Immat Gran (auto) 0.1 10^3/uL (0-0.05) H 06/08/25 04:42
Neutrophils % 80.6 % (42.2-75.2) H 06/08/25 04:42
Allergy/AdvReac Type Severity Reaction Status Date / Time
No Known Allergies Allergy Verified 06/05/25 19:56
Physical Exam
General: No Apparent Distress
Respiratory: Other (short of breath)
GI: Tender and Distended
Neuro: AO x 3
Data Reviewed
-
Radiology: Image Personally Visualized and interpreted, Report Reviewed by me and Discussed with Patient
CT Scan: Image Personally Visualized and interpreted, Report Reviewed by me and Discussed with Patient
Labs: Labs Reviewed by me, Discussed with Physician and Discussed with Patient
Old Records: Reviewed
Assessment / Plan
-
Assessment: 60-year-old male with chronic colonic dysmotility and Jose syndrome who is received multiple treatments of neostigmine in the past was on Linzess at home, presents to [place] ER with abdominal pain, distention, constipation, and
shortness of breath. Has colonic distention of the rectum, sigmoid colon, extending the right central upper abdomen status post nonsuccessful decompressive flexible sigmoidoscopy
Plan:
- Will proceed with OR today later this afternoon with Dr. Pierre given failure of neostigmine, enemas, and flexible sigmoidoscopy decompression
- Remain n.p.o.
- Okay for 1 tapwater enema
- Given Xarelto use, will be Kcentra prior to the operating room
- Preop labs ordered
- Wound RN consult for ileostomy marking
- Discussed with nursing and primary
[2025-06-08] MEDS: XANAX 0.25 MG PO (13:07)
--- NOTE | 2025-06-08 14:39 | W.PN.UPDATE ---
Update Note
Progress Note Update
I had a long conversation with the patient. He is hesitant to undergo surgery today due to potentially having an ileostomy for the rest of his life. He also wants to continue to try enemas and says he is 'too weak' to have any bowel movements so
that is the problem. I assured him that most of the time ileostomies are a temporary measure and are reversible. Typically this is within 3 to 6 months. Of course with his comorbidities, this might be a bit more challenging and he would have to
speak to Dr. Pierre directly regarding this outlook. I went over ileostomy care and resources that he can have going forward, including wound care nursing support and visiting nurses. I discussed what can happen if the bowel perforates, including
sepsis and possible . I went over his imaging as well as his current treatments thus far. I also went over the colonoscopy that I was present in today. He is willing to undergo surgery but would like to speak with Dr. Pierre first to have his
questions answered directly by him with his present. For now he wants to try 1 more tapwater warm enema prior to surgery to see if this might help. I conveyed this to the nurse and Dr. Pierre who will speak to him after clinic, prior to
surgery.
--- NOTE | 2025-06-08 15:52 | PTCARENOTE ---
Patient transported to OR by RN. VSS. Patient on 2L NC. Care ongoing.
--- NOTE | 2025-06-08 16:15 | W.PN.UPDATE ---
Update Note
Progress Note Update
Spoke with the patient. I reviewed his chart and discussed with Dr. Cho and Dr. Bocanegra. His CT scan shows dilated sigmoid colon up to 18 cm with gradual tapering down to the rectum, no concern for distal obstruction. No free air or pneumatosis.
This is a recurrence of his prior colonic dysmotility. However, despite 4 mg of neostigmine and flexible sigmoidoscopy for decompression, he has had no improvement. He remains massively distended with mild tenderness, no evidence of peritonitis.
Due to the recurrent nature of his pseudoobstruction and massive distention refractory to medical management, I recommend proceeding with surgery. Surgery was explained and would include exploratory laparotomy, evaluation for the bowel, resection
of any nonviable bowel and likely colostomy. I reviewed the risks of surgery. The patient indicated that he would like his medical proxy to be his spouse, Bernie. All questions were answered and the patient was agreeable to surgery. Consent
was signed and placed in the chart.
[2025-06-08 17:29] LABS: Glucose - Point of Care 163 mg/dl (70-99)
--- NOTE | 2025-06-08 17:29 | PTCARENOTE ---
Patient AOx3. NSR-Sinus baldemar on the monitor. BP stable. On 2L. VEGA. Patient unable to lay flat due to severe SOB. Moist occasional cough. +2 B/L LE edema. Wound care completed to B/ LE. Enema completed per order. Frequent small loose stools.
Assist x1 when OOB. Chair alarm on and audible. Call bedoya within reach, bed in lowest position, and bed of wheels locked.
[2025-06-08 22:05] LABS: Glucose - Point of Care 141 mg/dl (70-99)
--- NOTE | 2025-06-08 23:09 | W.IMMPOSTOP ---
Addendum entered and electronically signed by Jl Pierre MD 06/09/25 00:07:
Updated spouse over the phone
Original Note:
Surgical Immed Post Op Note
-
Primary Surgeon: Jl Pierre MD
Assisting Surgeon: Wilfred Griggs MD
Pre-op Diagnosis: Sigmoid megacolon, colonic dysmotility
Post-op Diagnosis: Sigmoid megacolon, colonic dysmotility, umbilical hernia; pelvic floor dysfunction
Procedure Performed: Exploratory laparotomy, lysis of adhesions, sigmoidectomy, decompression of right colon, abdominal washout, creation of end descending colostomy, umbilical hernia repair
Anesthesia Type: General
Specimen / Cultures: Sigmoid
Estimated Blood Loss: 100 mL
IVF: 4.0 L with 250 mL of albumin
UOP: 300 mL
Complications: None
Operative Findings: Performed midline laparotomy, encountered umbilical hernia with preperitoneal fat in hernia sac; encountered massively dilated colon with cecum pushed into the right lower quadrant and sigmoid colon volvulized less than 180
degress around the FRANK pedicle, but no obstruction due to the volvulus, so this appeared to be incidental; distal descending colon tapered to closer to normal size; untwisted sigmoid colon; entire colon appeared healthy; divided at the distal
descending with LORIN 100 with blue load; ligated mesentery close to the bowel down to the rectosigmoid junction; rectosigmoid junction was also significantly dilated, and tapered down the rectum; cleaned up the mesentery and attempted to staple
across the rectosigmoid with the LORIN 100 with blue load; however, due to significant thickening of the rectum, the fred did not hold and stool leaked into the abdomen causing debbie contamination; partially decompressed the sigmoid through this
colotomy and close to the colotomies with bowel clamps to control further contamination; set up the Bookwalter; bovied the remainder of the way across the rectosigmoid junction and clamped the rectum closed with Allis and [place]; attempted to
decompress the rectum transanally, but encountered moderate anal spasm and unable to disimpact any stool; decompressed rectum through the rectosigmoid colotomy; cecum was also significantly distended but was healthy without any evidence of ischemia
or serosal tearing; encountered a tear in the omentum, closed with a running 3-0 Vicryl stitch; created a colotomy in the middle of a 2-0 Vicryl pursestring and decompressed to the ascending colon and proximal transverse colon of primarily air and
some liquid stool; closed the colotomy with the pursestring stitch followed by a TA 60 with a blue load; mobilized the descending colon up to the proximal descending colon by taking down the lateral attachments; significantly adherent medially from
the epiploica to the root of the small bowel mesentery; these adhesions were taken down sharply; identified the duodenum and kept the safe from my mobilization; close to the Love pouch with running 3-0 Vicryl followed by interrupted 2-0 Vicryl
Lembert stitches; performed abdominal washout with 6 L of warm saline until the effluent was clear; placed a 19 [place] drain in the pelvis exiting through the right lower quadrant and secured with a 3-0 nylon; brought descending colon through
colostomy site; repaired umbilical hernia and closed fascia; injected 40 mL of 0.25% Marcaine with epinephrine and 0.4 mg of dexamethasone and irrigated subcutaneous space; stapled with interrupted fred and Telfa edward; matured colostomy in
Maite fashion;
--- NOTE | 2025-06-08 23:27 | OR.RPT ---
Addendum entered and electronically signed by Jl Pierre MD 06/25/25 16:43:
Error: Date of Operation was 06/08/25
Original Note:
Operative Report
Operative Report
DATE OF OPERATION: 06/09/2025
SURGEON:� Jl Pierre MD
PREOPERATIVE DIAGNOSIS: Sigmoid megacolon, colonic dysmotility
POSTOPERATIVE DIAGNOSIS: Sigmoid megacolon, colonic dysmotility, umbilical hernia, pelvic floor dysfunction
OPERATION:� Exploratory laparotomy, lysis of adhesions, sigmoidectomy, decompression of the right colon, abdominal washout, creation of descending end-colostomy
ASSISTANTS:
1. Wilfred Griggs MD
ANESTHESIA: General
ESTIMATED BLOOD LOSS: 100 mL
UOP: 300 mL
IVF: 4 L crystalloid, 250 mL albumin
FINDINGS:
1.� Massively dilated colon from cecum to rectum, worst in the sigmoid, with tapering to near-normal in the descending colon; no point of obstruction; no evidence of ischemia or serosal tearing
2.� On digital rectal exam, mild to moderate anal spasm noted, concerning for pelvic floor dysfunction
3.� During attempt to divide at the rectosigmoid junction, debbie stool spillage encountered; performed abdominal washout
4.� Transverse colon and ascending colon significantly dilated making exposure and visualization difficult; performed controlled colotomy in the cecum for decompression and stapled closed
5.� Created descending end�colostomy
SPECIMENS:
1.� Sigmoid colon
DRAINS: 19 Angolan Wicho in pelvis
COMPLICATIONS: No immediate complications.
INDICATIONS:� The patient is a 64-year-old male who initially presented in December of this year with colonic pseudoobstruction with sigmoid megacolon and no evidence of distal obstruction.� He improved after 2 doses of neostigmine.� However, he
presented again 2 to 3 weeks ago with the same presentation.� Again, he responded to neostigmine and was discharged.� However, the obstipation with massive distention occurred again.� This time, after a dose of neostigmine and attempt at
decompression with flexible sigmoidoscopy, he failed to improve.� The sigmoid colon was distended up to 18 cm and he had mild tenderness on exam.� Therefore, surgery was recommended. The operation was discussed with the patient in detail, including
risks, benefits and alternatives.� I explained that I would evaluate the bowel for any signs of ischemia or necrosis.� I would resect any nonviable bowel.� If there is healthy bowel throughout the colon, I would plan to resect the sigmoid colon as
this has been the area of massive distention on all of his prior CT scans, so I suspect that this is the primary area of dysmotility.� I anticipate needing to create an ostomy to reduce the risk of post-operative complications.� Risks described
included, but are not limited to, bleeding, infection, anastomotic leak or stenosis (if anastomosis created), rectal stump dehiscence, ureteral injury, bowel or solid organ injury, recurrence of dysmotility and pseudoobstruction, risks associated
with a stoma if created (ie- skin irritation, ischemia, retraction, prolapse and parastomal hernia, as well as the inability to reverse the colostomy) and anesthetic risks. The patient understood and agreed to proceed.
PROCEDURE IN DETAIL: Pre-operatively, the patient was marked by our enterostomal nurses.� The patient was taken to the operating room and placed on the operating table in supine position. Sequential compression devices were placed bilaterally.
General anesthesia was induced and the patient was intubated without complication. The patient was placed in lithotomy position with both arms secured to the armboards in extended position.� Mason catheter was placed with sterile technique.� The
abdomen was prepped and draped in a sterile fashion. A time-out was performed verifying the correct patient, procedure, operative site, positioning, and special equipment.� Anesthesia placed an orogastric tube.� Preoperative antibiotics were given.�
The patient received 5000 units of Kcentra prior to incision.� A marking pen was used to agustín out the midline.
The patient's abdomen was massively protuberant and the majority of his domain was above the level of the umbilicus.� Using a 10 blade scalpel, a midline incision was made.� This was taken down to the level of the fascia with Bovie electrocautery
and hemostasis was assured.� The linea alba was divided carefully with Bovie electrocautery.� A Lavonne was used to bluntly dissect through the preperitoneal fat and entry was confirmed into the abdomen.� Upon entry, I identified a Bovie marking on a
large epiploica, but no injury to bowel wall or other structure was identified. I extended the fascial incision to the length of the skin incision, taking care to avoid injury to the bladder. The abdomen was explored.� The entire length of the colon
was massively distended.� The worst distention was seen in the sigmoid and rectosigmoid colon.� The sigmoid colon was noted to be twisted around its mesentery, but the twist was less than the 180 degrees and this was not leading to any transition
point.� Therefore, I suspect that this volvulus was incidental and not the cause of his problem.� The cecum was significantly distended and displaced to the left lower quadrant.� The sigmoid colon was untwisted.� I followed the sigmoid colon down
into the pelvis, confirming the anatomy of the colon, which was difficult due to the massive distention.� The rectosigmoid was also significantly distended, and this tapered down to the distal rectum.� The entire length of the colon appeared
well-perfused without any evidence of injury or serosal tearing.� The descending colon tapered to near�normal diameter.� The transverse colon was also significantly dilated, but healthy.� The cecum was distended and there was moderate distention of
the small bowel proximal to the ileocecal valve.�
Based on his prior scans and current findings, I suspect that the area contributing the most to his dysmotility was the sigmoid colon.� Due to the morbidity of a total abdominal colectomy and uncertainty of the cause of his dysmotility, I felt that
the best option for him was for a partial colectomy with end-colostomy.� This would allow us to see if the remaining proximal colon functions normally prior to reversal, and to rule out any evidence of pelvic floor dysfunction that may be leading to
obstructed defecation.� I selected a point at the distal descending colon, where the distention began to taper to near�normal size.� I created a hole in the mesentery and divided the colon with the LORIN 100 with a blue load.� The staple line was
hemostatic.� I divided the mesentery close to the mesenteric border of the colon using the Voyant LigaSure.� I took this down to the level of the rectosigmoid junction, at the point where the tinea coalesced.� I divided the mesentery at this point
with the Voyant LigaSure.� I attempted to divide across the rectosigmoid junction with the LORIN 100 with a blue load.� However, due to the wall thickening and massive distention, the staple line immediately broke down and there was uncontrolled stool
contamination.� I continued decompression of the sigmoid colon and rectum through this colotomy and evacuated copious gas and liquid stool.� I placed bowel clamps across the colotomies to control any further contamination.� I performed a digital
rectal exam to decompress the distal rectum.� I noted that there was mild to moderate anal spasm with mild anal stenosis, raising my suspicion for pelvic floor dysfunction and likely obstructed defecation.� There was no remaining stool palpable
within the rectal vault.� The Bookwalter was set up with 4 points of retractions.� The patient was placed in slight Trendelenburg position with the left side tilted up.� I divided the remainder of the rectosigmoid junction with electrocautery and
passed off the specimen for pathology.� I replaced the clamps along the broken down staple line of the Love's pouch to control any further contamination.� I irrigated the area to improve visualization.� I returned the ascending colon to its
normal anatomic location.� This remained significantly distended, impairing visualization of the abdomen.� To decrease the risk of additional bowel injury and to improve visualization, I elected to decompress the right colon.� I placed a 2-0 Vicryl
pursestring in the cecum and created a controlled colotomy.� I evacuated a large amount of gas and liquid stool in a controlled manner.� The ascending colon and proximal transverse colon completely decompressed.� I closed down the pursestring.� I
stapled it closed with a TA 60 using a blue load.� The staple line was hemostatic and the cecum remained well-perfused. The small bowel was swept toward the right upper quadrant.
I mobilized the descending colon by taking down the lateral attachments along the white line of Toldt.� There was thickened adhesions between the descending colon and the left lower quadrant, making this dissection difficult.� I also encountered
significant adhesions from the medial aspect of the distal descending colon, primarily from large epiploica to the base of the small bowel mesentery.� These were meticulously lysed close to the wall of the colon to avoid any injury to the
mesentery.� During this portion of the mobilization, I identified the sweep of the duodenum and kept this safe from my dissection.� I mobilized the lateral attachments up to the proximal descending colon and mobilized the mesentery from the
retroperitoneum, taking care to avoid injury to Gerota's fascia and the left ureter.� At this point, there was adequate mobilization for the descending colon to reach the proposed colostomy site.
I turned my attention to the rectal stump.� Due to the thickness of the wall, I proceeded with closure using double layer handsewn technique.� I closed the length of the rectosigmoid with a running 2-0 Vicryl.� The complete length of this closure
measured about 15 cm in width.� I oversewed this with a second layer of interrupted 3-0 Vicryl in a Lembert fashion.� The staple line appeared hemostatic.� I placed a 3-0 Prolene tag in the right aspect of the rectal stump closure line as well as
the middle aspect of the closure and left the tails long to assist with future identification during reversal surgery.� I performed abdominal washout with 6 L of warm saline until the effluent was clear.� The operative field was evaluated and
appeared hemostatic.� A 19 Angolan Wicho drain was placed through the right lower quadrant and into the pelvis.� This was secured to the skin using a 3-0 nylon stitch.
Using an Allis, I elevated the skin and created a circular incision with electrocautery in the left mid/upper quadrant.� I coned out a small amount of subcutaneous tissue.� Using Army-Tensed's and electrocautery, I took this down through the anterior
and posterior layers of the fascia, making a cruciate incision in each and splitting the rectus muscle with a Lavonne clamp.� I ensured the colostomy tunnel was large enough by passing the tips of 3 fingers through easily.� I brought the colon through
the colostomy tunnel, ensuring no twist to the mesentery.� The mesentery was oriented superiorly and medially.� I once more examined the operative field and hemostasis was assured.
�I identified an umbilical hernia of about 3 cm in diameter.� I dissected the umbilical stalk from the fascia, taking care to avoid injury to the umbilical skin.� I reduced the hernia sac and cleaned up the fascia. The midline fascia was closed with
a running 0 PDS, starting at the corners and ending in the middle.� The skin around the incision was injected with 40 mL of 0.25% Marcaine with epi mixed with 0.4 mg of dexamethasone.� The subcutaneous space was copiously irrigated.� The skin was
closed with gapped fred and Telfa edward and, ultimately, an Aquacel dressing was placed. The left-sided colostomy was matured in a Brooked fashion with 3-0 Vicryl stitches and a stoma appliance was placed.� During maturation of the colostomy, I
noted a small ulceration of the mucosa near the mucocutaneous junction.� I had no concern for ischemia or necrosis of this area, so this was left in place.� Dry dressings were placed at the drain site.
At this point, the procedure was complete.� From the initiation of the case, the patient remained on a low-dose vasopressor.� First, it was Quintin-Synephrine at 50 mcg per minute.� Then, mid-case, it was switched to Levophed up to 8 mcg per minute.� At
the end of the case, it was at 5 mcg per minute.� Per anesthesia, they were concerned about the ventilation, especially with the aggressive resuscitation that he received intraoperatively.� Therefore, they decided to leave the patient intubated
overnight.� All needle, sponge and instrument counts were reported as correct. The patient tolerated the procedure well and was transferred to the ICU with OG tube and Mason.
Of note, Wilfred Griggs MD, assistant professor of biochemistry, was necessary during this procedure for traction, countertraction, and exploratory purposes. I was present for the entire duration of the case.
DICTATED BY:� Jl Pierre MD
[2025-06-08] MEDS: DIPRIVAN 100 IV (23:30)
--- NOTE | 2025-06-08 23:30 | PTCARENOTE ---
Patient received from the OR via bed accompanied by RN and anesthesia, residential child care counselor. Transferred into ICU bed 3371. See cargo tank mechanic charted on worklist flowsheet. Patient is intubated and sedated on ventilator, having received Versed prior to
arrival per report. BBS clear. #8ETT, 24 cm at lip, secured at the center. AC 14/TV 500/FiO2 50%/PEEP +8. Patient sats 89%. FiO2 increased to 60% and PEEP increased to 10 per RT, sats improved. Midline abdominal incision with Aquacell dressing, CHRISTINE
drain to bulb suction RLQ with serosanguinous drainage. BLEs with wound dressings and BOO wraps in place. Foot pumps on. Mason catheter patent draining clear jack urine. Colostomy LLQ, stoma pink and budded with small area of sanchez at stoma noted.
Scant amount of sanguinous drainage in colostomy bag. Abdomen round/obese and soft. CHG cloth bath. Patient with large amount of brown fecal smelling drainage from mouth. OGT not in place. Reinserted OGT to 71cm, placement verified via
auscultation. XRay done to verify ETT and OGT placement. SR with 1st degree AVB and BBB on CM. [place] left arm, leveled and zeroed. Labs and ABG drawn per order. Left hand IV site #20, Propofol gtt up for sedation. Levophed off due to adequate BP.
Right FA peripheral site flushes easily. HOB up 30 degrees. Bed in low and locked position. Frequent RN rounds on patient.
[2025-06-09] VITALS (14 sets, daily range): BP systolic 89–128; BP diastolic 44–70; BMI 42.2
[2025-06-09] MEDS: SUBLIMAZE 100 MCG IV (00:14)
[2025-06-09] MEDS: SUBLIMAZE 100 IV ×3 (00:14→22:24)
[2025-06-09 00:16] LABS: Hematocrit 41.3 % (39.0-52.0); Hemoglobin 13.3 g/dL (13.0-18.0); Mean Corp Hgb Conc. 32.2 g/dL (33.0-37.0); Mean Corpuscular Volume 81.1 fL (80.0-94.0); Platelet Count 229 10^3/uL (130-400); Red Cell Dist. Width 14.7 % (11.5-14.5)
[2025-06-09 00:21] LABS: B.E. 0.4 mmol/L; HCO3 29.6 mmol/L (21-28); O2 Saturation % 99.1 % (94-98); PCO2 69 mmHg (35-48); PO2 125 mmHg (83-108)
[2025-06-09] MEDS: LANTUS SC (00:25)
[2025-06-09] MEDS: NOVOLOG FLEXPEN-MODERATE RESISTANCE 1 UNITS SC ×4 (00:30→23:09)
[2025-06-09 00:35] LABS: INR 1.40; PT 17.4 Sec (11.4-14.6)
[2025-06-09 00:36] LABS: APTT 30.2 Sec (23.4-35.0)
[2025-06-09 00:39] LABS: Glucose - Point of Care 157 mg/dl (70-99)
[2025-06-09 00:40] LABS: Triglycerides 107 mg/dl (10-149)
[2025-06-09 00:43] LABS: Blood Urea Nitrogen 62 mg/dl (9-20); Calcium 8.3 mg/dl (8.4-10.2); Carbon Dioxide 30 mmol/L (22-30); Chloride 98 mmol/L (98-107); Estimated Creatinine Clearance 108 ml/min; Glucose 170 mg/dl (70-99); Magnesium 3.4 mg/dl (1.6-2.3); Potassium 5.1 mmol/L (3.5-5.1); Sodium 135 mmol/L (135-145); eGFR > 60.00
--- NOTE | 2025-06-09 00:45 | PTCARENOTE ---
Fentanyl bolus given and gtt started for pain control, sedation. IVF up per order.
[2025-06-09] MEDS: NSS 1000 IV ×3 (00:47→16:57)
[2025-06-09] MEDS: PACERONE PO (00:49)
[2025-06-09] MEDS: ROCEPHIN IV (00:49)
[2025-06-09] MEDS: LIPITOR PO (00:49)
[2025-06-09] MEDS: ALDACTONE PO (00:49)
[2025-06-09] MEDS: LEVOPHED 250 IV ×5 (01:05→20:07)
--- NOTE | 2025-06-09 01:05 | PTCARENOTE ---
Levophed restarted due to low BP, MAP < 65. Titrated for adequate BP.
[2025-06-09] MEDS: TOPROL XL PO ×2 (01:06→22:15)
[2025-06-09] MEDS: INVANZ 60 MG IV ×2 (01:33→23:08)
[2025-06-09] MEDS: SUBLIMAZE 50 MCG IV ×7 (02:06→23:59)
[2025-06-09 02:22] LABS: B.E. 0.2 mmol/L; HCO3 28.2 mmol/L (21-28); O2 Saturation % 99.4 % (94-98); PCO2 60 mmHg (35-48); PO2 161 mmHg (83-108)
--- NOTE | 2025-06-09 02:50 | PTCARENOTE ---
Fentanyl gtt increased to 100mcg for adequate sedation per Brooke LERMA. Propofol also increased. Patient appears to be waking from previous OR sedation. Levophed titrated accordingly to keep MAP > 65.
--- NOTE | 2025-06-09 03:26 | W.PN.SEPSIS ---
Sepsis
Vital Signs
Temp Pulse Resp BP Pulse Ox
97.6 F 68 16 123/60 100
06/08/25 15:40 06/09/25 02:00 06/09/25 02:00 06/09/25 02:00 06/09/25 03:04
Physical Exam
Physical Exam:
A focused exam was performed after fluid resuscitation.
Capillary Refill
Bilateral Upper Extremity:
Iman Time: Less than 3 sec
Bilateral Lower Extremity:
Iman Time: Less than 3 sec
Pulse Evaluation
Bilateral Radial:
Pulse Evaluation: Present
Bilateral Dorsalis Pedis:
Pulse Evaluation: Present
--- NOTE | 2025-06-09 03:30 | PTCARENOTE ---
Physical assessment essentially unchanged except scattered rhonchi BBS that clear with suctioning. Left base diminished. Continue to titrate Levophed for MAP > 65 and Propofol and Fentanyl for adequate sedation. Vent settings changed per ABG.
[2025-06-09 05:55] LABS: B.E. 1.7 mmol/L; HCO3 27.7 mmol/L (21-28); O2 Saturation % 98.7 % (94-98); PCO2 48 mmHg (35-48); PO2 118 mmHg (83-108)
[2025-06-09 05:58] LABS: Hematocrit 40.3 % (39.0-52.0); Hemoglobin 12.9 g/dL (13.0-18.0); Mean Corp Hgb Conc. 32.0 g/dL (33.0-37.0); Mean Corpuscular Volume 81.1 fL (80.0-94.0); Platelet Count 269 10^3/uL (130-400); Red Cell Dist. Width 14.9 % (11.5-14.5)
[2025-06-09 06:20] LABS: Blood Urea Nitrogen 53 mg/dl (9-20); Calcium 8.1 mg/dl (8.4-10.2); Carbon Dioxide 25 mmol/L (22-30); Chloride 100 mmol/L (98-107); Estimated Creatinine Clearance 118 ml/min; Glucose 206 mg/dl (70-99); Potassium 4.8 mmol/L (3.5-5.1); Sodium 134 mmol/L (135-145); eGFR > 60.00
[2025-06-09] MEDS: NOVOLOG FLEXPEN-MODERATE RESISTANCE 3 UNITS SC (06:29)
[2025-06-09] MEDS: LR 1000 IV (06:30)
[2025-06-09] MEDS: DIPRIVAN 100 IV ×3 (06:33→19:45)
--- NOTE | 2025-06-09 07:11 | PTCARENOTE ---
Report given verbally to oncMargarito lozano RN. Bedside rounds completed. Questions answered.
[2025-06-09] MEDS: HYDROPHOR 1 APPLIC TOPICAL (07:50)
--- NOTE | 2025-06-09 07:51 | W.PN.ANS.POP ---
Anesthesia Post Operative
- Anesthesia Post Op Note
Vital Signs Stable-See Nursing Note: Yes
Airway Patent: Yes
Adequate Pain Control: Yes
Change in Mental Status: No
Current Postoperative Nausea & Vomiting: No
Anesthesia Complications: No
General Anesthetic Recall: No
Unplanned Admission: No
Post Op Hydration Adequate: Yes
[2025-06-09 08:19] LABS: Absolute Neutrophils -Man Diff 3.0 10^3/uL (1.4-6.5); Normal RBC Morphology Yes; Platelets Checked Yes; Toxic Granulation 2+
[2025-06-09 08:20] LABS: Total Cells Counted 100
--- NOTE | 2025-06-09 09:40 | PTCARENOTE ---
Assumed care of pt. See electronic bench technician charted on worklist flowsheet. Patient is intubated and sedated on ventilator. #8ETT, 24 cm at lip, secured at the center. AC 20/TV 500/50%/8. Patient sats 98%. Midline abdominal incision with Aquacell dressing
with small-mod amt serosang drainage, CHRISTINE drain to bulb suction RLQ with serosanguinous drainage. BLEs with wound dressings and BOO wraps in place. Foot pumps on. Mason catheter patent draining clear jack urine. Colostomy LLQ, stoma pink and budded
with small area of sanchez at stoma noted. Scant amount of serosanguinous drainage in colostomy bag. Abdomen round/obese and soft. Brown fecal smelling drainage from OGT. SR with BBB on CM. [place] left arm, leveled and zeroed. [place] Left hand IV site #20,
Propofol, fent gtt up for sedation. Levophed gtt infusing. Right FA peripheral site flushes easily. HOB up 30 degrees. Bed in low and locked position. Frequent RN rounds on patient.
[2025-06-09] MEDS: SUBUTEX 4 MG SL (09:46)
[2025-06-09] MEDS: RELISTOR 12 MG SC (10:40)
[2025-06-09 11:53] LABS: Glucose - Point of Care 167 mg/dl (70-99)
--- NOTE | 2025-06-09 11:57 | CON.INTV ---
Consultation
Consultation Request
Date/Time Consultation Requested: 06/09/2025
Date/Time Consultation Performed: 06/09/2025
Requesting Provider: Dr. Villanueva
Performing Provider: Dr. Rommel Candelaria
Reason for Consultation: Acute hypoxemic respiratory failure requiring MV/status post laparotomy
Medical History
-
Chief Complaint: Patient intubated
History of Present Illness:
64-year-old man with past medical history significant for chronic heart failure with reduced ejection fraction, paroxysmal atrial flutter, hypertension, type 2 diabetes, morbid obesity, colonic dysmotility and chronic pain syndrome opiate dependent.
Recently admitted to the hospital in mid May with severe constipation for 5 weeks.
Diagnosed with colonic dysmotility and underwent bowel regimen by GI subsequently discharged without surgery.
Now readmitted 06/08/2025 with constipation, abdominal distention and shortness of breath. Found to have significant colonic dilatation up to 17.5 cm. Medical management was attempted with neostigmine, decompression rectal sigmoidoscopy.
Unfortunately unsuccessful, seen by colorectal surgery who recommended surgical intervention.
Xarelto washout was allowed.
Patient underwent surgery on 06/08/2025.Exploratory laparotomy, lysis of adhesions, sigmoidectomy, decompression of right colon, abdominal washout, creation of end descending colostomy, umbilical hernia repair.
Patient was transferred to the critical care unit as the patient was hypotensive requiring vasopressors and also intubated on mechanical ventilation with significant abdominal distention.
-
In the critical care unit he is sedated, on mechanical ventilation. Appears comfortable.
Pulmonary mechanics without evidence of increased resistance
Remains on 12 mics of Levophed critically ill.
Past Medical History
Past Medical History: Other (See assessment and plan)
Social History
Tobacco: Non-smoker
Alcohol: Occasional
Drug: None
Family History
Family History: Reviewed & Not Pertinent
Allergies / Home Medications
Allergies
Allergy/AdvReac Type Severity Reaction Status Date / Time
No Known Allergies Allergy Verified 06/05/25 19:56
Home Medications
�Medication �Instructions �Recorded �Confirmed �Last Taken �Type
atorvastatin 40 mg tablet 40 mg PO HS High Cholesterol 12/24/24 06/05/25 05/17/25 History
buprenorphine 4 mg-naloxone 1 mg 1 film buccal DAILY Opioid use 12/24/24 06/05/25 05/18/25 History
sublingual film (Suboxone) disorder
amiodarone 200 mg tablet 200 mg PO HS Arrhythmia 02/02/25 06/05/25 05/17/25 History
furosemide 40 mg tablet (Lasix) 40 mg PO DAILYPRN PRN 03/03/25 06/05/25 1 Week Ago History
swelling/bloating ~05/11/25
insulin aspart U-100 100 unit/mL 20 sliding scale dose SC AC 03/03/25 06/05/25 05/18/25 History
(3 mL) subcutaneous pen (Novolog Diabetes 18 units
FlexPen U-100 Insulin aspart)
insulin glargine 100 unit/mL (3 24 unit SC DAILY Diabetes 03/03/25 06/05/25 05/18/25 History
mL) subcutaneous pen (Lantus
Solostar U-100 Insulin)
linaclotide 290 mcg capsule 290 mcg PO DAILY Constipation 03/03/25 06/05/25 05/18/25 History
(Linzess)
spironolactone 25 mg tablet 25 mg PO HS Blood Pressure 03/03/25 06/05/25 05/17/25 History
lidocaine 1.8 % topical patch 1 patch topical DAILYPRN PRN upper 05/18/25 06/05/25 05/18/25 History
(ZTlido) right arm/shoulder
magnesium citrate 10.5 oz PO DAILYPRN PRN 05/18/25 06/05/25 2 Days Ago History
constipation ~05/16/25
metoprolol succinate 100 mg 100 mg PO HS Heart Failure 05/18/25 06/05/25 05/17/25 History
tablet,extended release 24 hr
white petrolatum 42 % topical 1 applic topical DAILYPRN PRN 05/18/25 06/05/25 05/18/25 History
ointment (Hydrophor) apply to B/L legs & feet
polyethylene glycol 3350 17 gram 17 g PO BID #60 ea 05/20/25 06/05/25 Unknown Rx
oral powder packet
rivaroxaban 20 mg tablet (Xarelto) 20 mg PO HS Blood Clot 06/05/25 06/05/25 Unknown History
Prevention/Tx
dapagliflozin propanediol 5 mg 5 mg PO DAILY Diabetes 06/07/25 06/07/25 06/04/25 History
tablet (Farxiga)
lisinopril 5 mg tablet 5 mg PO DAILY Blood Pressure 06/07/25 06/07/25 06/04/25 History
Review of Systems
-
Unable to Obtain full review of systems at this time due to: Patient Intubation
Vitals / Labs / Diagnostic Testing
Vital Signs
Temp Pulse Resp BP Pulse Ox
99.5 F 70 20 121/59 96
06/09/25 10:00 06/09/25 11:00 06/09/25 11:00 06/09/25 08:00 06/09/25 11:24
Lab Data
06/09/25 05:45
06/09/25 05:45
Laboratory Results
06/09/25 06/09/25 06/09/25
00:01 01:59 05:45
PT 17.4 H
INR 1.40
APTT 30.2
pH 7.24 L 7.28 L 7.37
pCO2 69 H 60 H 48
pO2 125 H 161 H 118 H
HCO3 29.6 H 28.2 H 27.7
O2 Delivery Level
Microbiology
06/06/25 07:57 Nose MRSA Screen - Final
No Methicillin Resistant Staphylococcus aureus isolated.
Diagnostic Testing:
Physical Exam
-
HEENT: Normocephalic and Other (ET tube in place without secretions.)
Cardiovascular: S1/S2
Respiratory: Non-Labored Respirations
GI: Soft and Distended (Colostomy in place)
Neurology: Other (Sedated on mechanical ventilation. Occasionally opening eyes)
Skin: Warm
General: Comfortable (On mechanical ventilation)
Assessment
-
Assessment: 64-year-old male with a past medical history of cardiomyopathy, hypertension, DM type II, history of chronic opioid use due to chronic arthritis now on buprenorphine, history of ERASMO, venous insufficiency and chronic back pain who
presented with shortness of breath, abdominal distention. Found to have severe colonic distention. Initially treated with neostigmine, attempted sigmoidoscopy without attempt. Underwent exploratory laparotomy 06/08/2025-developed shock requiring
vasopressors and remained on mechanical ventilation. We were consulted on 06/09/2025.
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
OxyContin/oxycodone,systolic cardiomyopathy.
Impression:
Acute hypoxemic respiratory failure post surgery: Due to abdominal distention requiring intubation mechanical ventilation
Septic shock suspected-source likely intraperitoneal
Status post laparotomy:Exploratory laparotomy, lysis of adhesions, sigmoidectomy, decompression of right colon, abdominal washout, creation of end descending colostomy, umbilical hernia repair-06/08/2025
--
# Colonic dysmotility
#Atrial flutter
#Chronic HFrEF with right ventricular systolic dysfunction
#Valvular heart disease with mild as moderate MR and mild as moderate TR
#Morbid obesity
#DM type II
#Venous deficiency
#History of ERASMO
#Chronic pain management due to arthritis currently on buprenorphine in an effort to calm off of OxyContin/oxycodone
Plan:
-
Patient is critically ill: Intubated on mechanical ventilation and shock requiring vasopressors.
-
Mechanical ventilation settings reviewed:
Pulmonary mechanics acceptable with a peak pressure of around 20.
ET tube without secretions
No evidence for bronchospasm
FiO2 is 40%
ABG 06/09/2025: 7.30 /118.
Continue mechanical ventilation without change
No plan for spontaneous breathing trial at this point.
-
Will attempt to minimize sedation: Decrease fentanyl drip and use IV boluses as needed
Continue propofol drip
At this point not appropriate for spontaneous breathing trial as he is requiring greater than 10 mics per minute of Levophed.
-
Septic shock: Suspect intra-abdominal source-possible peritonitis postsurgically-washout was performed.
Status post laparotomy for significant abdominal distention as above.
NG tube in place with feculent material draining briskly
Follow surgical recommendations
Colostomy in place without any output
-
Status post 1 L IV fluid given earlier today.
Cautious hydration given history of heart failure.
Continue Levophed to maintain mean blood pressure above 65 mmHg
Levophed at 12 mics per minute, wean down as able open
Vasopressin will be added if necessary.
Follow renal function,, creatinine is normal
Mason in place urinary output will be measured hourly
-
Ertapenem started
Follow cultures
-
Heart failure with reduced ejection fraction/atrial flutter
Echocardiogram reviewed 04/28/2025: Ejection fraction 35%. Global hypokinesis. Mild LVH. Stage I diastolic dysfunction. Mildly dilated right ventricle. Mild aortic stenosis. Mild TR. Estimated pulmonary artery pressure 50 to 55 mmHg.
Chest x-ray post intubation noted: Left lower lobe abnormality suspect atelectasis
Patient not behaving like he has pneumonia
Holding diuresis
N.p.o. for now
Usually on amiodarone.
Unfortunately none of the oral medication will be able to be given until cleared by surgery. Currently having significant output through the NG tube.
-
N.p.o.
Head of elevation will obtain PICC line. Suspect this patient likely will require TPN if there is no improvement.
-
Glycemic control: Target 140-180.
Start Lantus 10 units at night
Insulin sliding scale
-
DVT prophylaxis: SCDs for now
Eventual start anticoagulation-heparin drip likely will be started. Patient usually on Xarelto.
-
Prognosis is guarded
-
Critical care statement: A total of 72 minutes of critical care time was provided for this patient today. This includes management of unstable vital signs, evaluation of the patient at bedside, reviewing the patient's pertinent medical records
including ventilator settings, arterial blood gases, radiographs, microbiology, laboratory evaluations and discussion with primary team, critical care nursing, and respiratory therapy.

Data reviewed:
Chest x-ray 06/08/2025: Reviewed, ET tube in place. Left lower lobe airspace disease. Cardiomegaly
-
CT abdomen pelvis 06/05/2025:
The patient is significantly distended, and much of the abdominal and upper pelvic soft tissues extending anterior and to the left of the [id number], which limits evaluation, as it becomes difficult to confidently follow the loops of bowel.
There is distention of the rectum with air and stool, measuring 9.3 cm in diameter. There is marked distention of the sigmoid colon which extends into the right and central upper abdomen, with the sigmoid colon measuring up to 18 cm in diameter. The
sigmoid colon contains a moderate to large amount of stool, mainly inferiorly. There appears to be moderate distention of the rest of the visualized colon.
Small bowel loops are present, and do not appear to be significantly distended, similar appearance to prior examination.
Of note, the cecum cannot be confidently identified on the present examination
No gross evidence of free intraperitoneal air.
There is patchy parenchymal opacity within the visualized lower lungs, most likely atelectasis. A component of pneumonia is also possible, although felt to be less likely. There is no significant pleural effusion and no significant pericardial
effusion.
Coronary artery calcifications are present. Please correlate with symptoms of and risk factors for coronary artery disease, with further workup as clinically appropriate.
Of note, the stomach is not distended.
--- NOTE | 2025-06-09 12:04 | W.PN.HOSP.TC ---
Today's Communication/Plan
-
Continue management in the ICU.
Assessment / Plan
Assessment / Plan
Impression:
Mr. Knapp is a 64-year-old male with medical history of HFpEF, A-fib/flutter, IDDM, obesity, chronic pain with subsequent opioid dependence, and chronic constipation with colonic dysmotility who presented with shortness of breath, abdominal
bloating and discomfort, constipation. His last bowel movement was 2 weeks prior to arrival. He is having increasing difficulty breathing due to worsening abdominal distention. He has had multiple similar episodes since September 2024 and has
previously required decompression. He has been treated with enemas and neostigmine previously. Abdominal imaging showed significant colonic distention with air-filled loops of bowel. He also had patchy parenchymal opacities within the mid to
lower lungs. He was mildly hypoxic and has been started on antibiotics. He has remained afebrile with a mild leukocytosis of just over 12,000. He has been admitted for further evaluation and management.
Seen by GI, failed neostigmine, enema, status post nonsuccessful decompressive flexible sigmoidoscopy.
Surgery team consulted.
s/p Exploratory laparotomy, lysis of adhesions, sigmoidectomy, decompression of right colon, abdominal washout, creation of end descending colostomy, umbilical hernia repair on 06/08
Assessment/Plan:
Colonic dysmotility/ileus:
- Abdomen remains significantly distended despite multiple medical classes enemas and subsequent bowel movements
- Upgraded to IMU today, pushed 4 mg neostigmine around 1:30 PM, awaiting peristaltic response
- GI following, appreciate guidance, may need to involve colorectal surgical team if no improvement
- Clear liquid diet for now
- Continue home Linzess
- If medical therapy fails he may need to have an elective sigmoidectomy considering multiple similar recurrences, holding home Xarelto pending any needed surgical interventions, last dose evening of 06/06
06/08
status post nonsuccessful decompressive flexible sigmoidoscopy
Surgery team consulted
Possible OR today
Discussed with patient and at bedisde.
06/09
S/P Exploratory laparotomy, lysis of adhesions, sigmoidectomy, decompression of right colon, abdominal washout, creation of end descending colostomy, umbilical hernia repair
Acute hypoxic respiratory failure (currently intubated in the ICU postoperatively)
Continue mechanical ventilation
paroxismal A-fib/flutter:
- Currently rate controlled, continue home metoprolol and amiodarone
- Holding home Xarelto .
IDDM:
- Uses Lantus 24 units at night and sliding scale insulin at home
- Has been on sliding scale insulin alone since admission, will add reduced dose of Lantus while on modified diet
- Monitor Accu-Cheks and adjust regimen as needed
HFpEF:
- Chronic, currently compensated
- Continue beta-blockade with home metoprolol succinate 100 mg at night
- Holding home Lasix for now, continuing spironolactone, monitor daily weights
- No need for afterload reduction due to borderline hypotension
CODE STATUS: Full code
DVT prophylaxis: hold Xarelto
Diet: NPO
Family communication: Discussed with at bedside 06/08.
Disposition: Continue management in the ICU.
Total time spent on today's encounter was 75 minutes which included time spent in counseling the patient/family regarding diagnosis and treatment plan as listed above, goals of care, and symptom management. Case was discussed with nursing staff,
specialists, and care coordinators/case management. All labs and imaging personally reviewed by me. Remainder the time spent in detailed review of previous records, lab data, imaging, and other medical provider documentation.
Anticipated Discharge: > 48 hours
Subjective/Interval History
-
Date of Service: June 09, 2025
Patient is status post ex lap, sigmoidectomy and decompression of right colon, colostomy, currently intubated in the ICU.
Objective Data
-
Labs:
Laboratory Results
06/09/25 06/09/25 06/09/25
00:01 01:59 05:45
WBC 2.9 L 5.1
Hgb 13.3 12.9 L
Hct 41.3 40.3
Plt Count 229 269
PT 17.4 H
INR 1.40
APTT 30.2
HCO3 29.6 H 28.2 H 27.7
Sodium 135 134 L
Potassium 5.1 4.8
Chloride 98 100
Carbon Dioxide 30 25
BUN 62 H 53 H
Creatinine 1.1 1.0
Glucose 170 H 206 H
Calcium 8.3 L D 8.1 L
Vital Signs:
Vital Signs
Temp Pulse Resp BP Pulse Ox
99.5 F 70 20 121/59 96
06/09/25 10:00 06/09/25 11:00 06/09/25 11:00 06/09/25 08:00 06/09/25 11:24
I&O
06/08/25 06/09/25 06/10/25
06:59 06:59 06:59
Intake Total 600 / 600 2318.0 / 2395.6 874.6 / 874.6
Output Total 2110 / 2110 700 / 700
Balance 600 / 600 208.0 / 285.6 174.6 / 174.6
Physical Exam
-
General: Intubated and Obese
HEENT: Normocephalic, Atraumatic, Moist Mucous Membranes, No Ptosis, PERRLA and Nose Appears Normal
Respiratory: Rales, Rhonchi and Non Labored Respirations
Cardiac: Regular Rhythm and S1/S2
Breast: Deferred by me
GI: Other (Colostomy bag, midline incision clean)
Musculoskeletal: No Clubbing and No Cyanosis
Skin: Warm
Neuro: Sedated
Psych: Other (Sedated)
Data Reviewed
-
Diagnostic Radiology: Image personally visualized and interpreted and Report Reviewed by me
CT Scan: Image personally visualized and interpreted and Report Reviewed by me
Ultrasound: Image personally visualized and interpreted and Report Reviewed by me
MRI: Image personally visualized and interpreted and Report Reviewed by me
Medical Tests (Nuc Med, Echo etc): Image personally visualized and interpreted and Report Reviewed by me
Labs: Labs Reviewed by me
Old Records: Reviewed
--- NOTE | 2025-06-09 13:03 | PTCARENOTE ---
Requiring increasing vasopressor. notified. Fecal mater continues sx from OGT. PICC placed without issue, TLC RUE. updated at bedside.
--- NOTE | 2025-06-09 13:07 | CM ---
Addendum entered by Adan Brown 06/10/25 14:37:
POD# 2, intubated, reduce sedation, NGT, IV/Ertapenem and Solu-Cortef, wean pressors. Discharge POC: TBD.
Original Note:
POD #1: New colostomy, intubated, abdominal distention post-op. Discharge POC: TBD when extubated.
[2025-06-09] MEDS: PITRESSIN 100 IV ×2 (13:44→22:56)
--- NOTE | 2025-06-09 14:18 | WOUNDNOTE ---
[facility] RN NOTE: Patient with ostomy created on 06/08. Stoma is pink and budded with a scant amount of sanguinous drainage. Patient currently intubated, at bedside. LAWRENCE Pimentel made aware that new ostomy kit has been ordered. Will follow up with
patient later in the week for pouch change.
--- NOTE | 2025-06-09 15:11 | W.PN.CRS1 ---
Today's Communication / Plan
-
Ventilator per carton making machine operator team
Remain n.p.o.
Maintain CHRISTINE drain
Assessment/Plan
-
POD#1 Exploratory laparotomy, lysis of adhesions, sigmoidectomy, decompression of right colon, abdominal washout, creation of end descending colostomy, umbilical hernia repair
WBC: 5.1, Hgb 12.9.
on levophed for hypotension
afebrile
-Wean ventilator per carton making machine operator
- Okay for out of bed if extubated
- Wean pressors as per intensive care team
- Maintain CHRISTINE drain
- Will hold on Lovenox today given recent use of Xarelto and need for Kcentra prior to surgery yesterday. Teds and SCDs for DVT prophylaxis. Will readdress this tomorrow.
- OR pathology pending
- Sabra in place for the midline incision which will be removed prior to discharge
- OG tube in place putting out 500 mL in the past 24 hours
- Maintain Mason for I's and O's
- If extubated, remain n.p.o.
- Appreciate carton making machine operator, gastroenterology, hospitalist
Subjective Data
Procedure
06/08/25- Exploratory laparotomy, lysis of adhesions, sigmoidectomy, decompression of right colon, abdominal washout, creation of end descending colostomy, umbilical hernia repair
Subjective Data
Date of Service: June 09, 2025
Patient is intubated and sedated.
Objective Data
-
Vital Signs
Temp Pulse Resp BP Pulse Ox
100.2 F 68 20 114/70 95
06/09/25 12:00 06/09/25 14:00 06/09/25 14:00 06/09/25 12:00 06/09/25 14:00
Intake & Output
06/08/25 06/09/25 06/10/25
06:59 06:59 06:59
Intake Total 600 / 600 2318.0 / 2395.6 1484.8 / 1484.8
Output Total 2110 / 2110 1050 / 1050
Balance 600 / 600 208.0 / 285.6 434.8 / 434.8
Intake:
Oral fluids 600 / 600
IV fluids (Total) 1098.0 / 1175.6 1484.8 / 1484.8
Diprivan gtt 89.2 / 103.0 110.4 / 110.4
Fentanyl gtt 70.0 / 85.0 98 / 98
Levophed gtt 218.8 / 267.6 401.4 / 401.4
Nss 1,000 ml @ 125 mls/hr IV . 720.0 / 720.0 875 / 875
Q8H JASBIR Rx#:[id number]
IV piggybacks 1060 / 1060
Amount instilled into Drain ( 40 / 40
Total)
Right Lower Abdomen Milton- 40 / 40
Vo
Amount instilled into GI Tube ( 120 / 120
Total)
Colerain Sump 120 / 120
Output:
Drain Output (Total) 135 / 135
Right Lower Abdomen Milton- 135 / 135
Vo
Gastrointestinal tube output ( 500 / 500
Total)
Colerain Sump 500 / 500
Urine, Mason 1475 / 1475 1050 / 1050
Other:
Number of approximated MODERATE 1
amounts of urine
Lab Results
06/09/25 05:45
06/09/25 05:45
Physical Exam
-
General: Other (intubated and sedated)
Abdomen: Soft, Distended (mild) and Other (CHRISTINE drain serosanginous. midline bandage in place. colostomy warm and pink, no function. )
Skin: Warm and Dry
--- NOTE | 2025-06-09 16:34 | PTCARENOTE ---
Dressing change to BLE. states that swelling improved but color of feet worse. Assessment unchanged.
--- NOTE | 2025-06-09 16:45 | PTCARENOTE ---
40cc emptied from colostomy-serosanguineous, no stool present. Recorded as drain output so as not to confuse staff. No stool output from stoma this shift.
[2025-06-09] MEDS: OFIRMEV 100 IV ×2 (16:53→23:59)
--- NOTE | 2025-06-09 18:26 | W.PN.UPDATE ---
Update Note
Progress Note Update
Saw and examined patient. Remains intubated on levo of 12 and vaso of 0.03. Good UOP. Saturating well. Abdomen soft, significantly distended and tympanitic, no grimacing with palpation, ostomy dark pink with bowel sweat. Updated over the
phone and she was appreciative.
[2025-06-09 18:32] LABS: Glucose - Point of Care 173 mg/dl (70-99)
--- NOTE | 2025-06-09 19:15 | PTCARENOTE ---
Assumed care. Patient received lying in bed, sedated on Fentanyl and Propofol, intubated on ventilator, BP supported with Levophed and Vasopressin. Levophed increased to 15mcg and then later 16mcg for MAP 59; to keep MAP > 65. See assessment charted
on worklist flowsheet. BBS diminished t/o, Left base very diminished. Vent settings verified, #8ETT 24cm at the lip in the center. OGT at 70cm to LIS, flushed every 4 hours and prn, draining liquid fecal matter. S1S2 regular. SR with 1st degree AVB
and BBB on CM. Positive pulses x 4 extremities, generalized anasarca, Bilateral hand and BLE edema, patient also has periorbital edema. Midline abdominal incision with Aquacell dressing with old drainage noted lower dressing. CHRISTINE drain RLQ with small
amount serosanguinous drainage. LLQ colostomy with large, edematous, beefy red stoma with scant serosanguinous drainage and mucous. Absent bowel sounds t/o except hypoactive bowel tones LUQ. Grimaces with palpation, large obese abdomen. Bilateral
soft wrist restraints checked and retied every 2 hours and prn, Repositioned every 2 hours. Oral care for small amount of brown secretions, no ETT secretions at this time. Bed in low and locked position. Frequent rounds on patient. Low grade temp
99.8F, patient diaphoretic. Excess linens removed, ice packs to axilla.
--- NOTE | 2025-06-09 19:50 | RESPNOTE ---
bite block placed
[2025-06-09] MEDS: PACERONE TUBE (22:15)
[2025-06-09] MEDS: LANTUS 0.1 UNITS SC (23:04)
[2025-06-09 23:15] LABS: Glucose - Point of Care 166 mg/dl (70-99)
--- NOTE | 2025-06-09 23:50 | PTCARENOTE ---
Addendum entered by Samantha Feldman RN 06/10/25 02:10:
Sats with immediate improvement after ETT repositioned.
Original Note:
Patient noted with sats dropping suddenly to 82%. Patient is tonguing the tube out and chewing on tube after tonguing out bite block. ETT is now at 22cm vs 24cm at start of shift. Respiratory therapist contacted and ETT replaced, ETT fried changed,
bite block replaced. Fentanyl bolus given. Portable CXR performed. Patient severely agitated, pulling at restraints, gnawing on ETT after dislodging bite block. Again patient tongued out the tube to 22cm, air leak audible. Respiratory therapist at
bedside to reposition ETT. Fentanyl gtt increased to 300mcg, Propofol increased to 30mcg. Brooke LERMA at bedside. Orders received for Ativan 2mg IV, given. Patient calmer after Ativan. Oral suctioning and bite block replaced. ETT suctioned for small
amount of segovia brown secretions. BBS diminished with faint rhonchi that improve after suctioning. No bowel sounds audible at this time. Large amount of liquid fecal material via OGT. IV Tylenol given for temp 100.6F. Levophed temporarily to 20mcg for
SBP 79 and then returned to 16mcg. Continue to titrate sedation for patient comfort and as tolerated.
[2025-06-10] VITALS: BP 130/67
--- NOTE | 2025-06-10 00:06 | RESPNOTE ---
ETT tube fried replaced with sliding fried
[2025-06-10] MEDS: ATIVAN 2 MG IV (00:16)
[2025-06-10] MEDS: NSS 1000 IV ×4 (00:20→16:35)
[2025-06-10] MEDS: DIPRIVAN 100 IV ×6 (00:22→21:13)
[2025-06-10] MEDS: LEVOPHED 258 MG IV ×3 (00:25→16:35)
--- NOTE | 2025-06-10 00:27 | RESPNOTE ---
Called to pt bedside for pt not getting volumes on the vent and air leakage sound from pt. ETT resecured at 24 at the lip after finding it at 22. Pt back to getting volumes. RN and THERAPEUTIC CONSULTANT at bedside.
[2025-06-10] MEDS: SUBLIMAZE 100 IV ×4 (02:24→18:28)
[2025-06-10] MEDS: SUBLIMAZE 100 MCG IV ×2 (02:48→11:02)
--- NOTE | 2025-06-10 03:30 | PTCARENOTE ---
Fentanyl bolus given prior to cares. Complete cares given, CHG cloth bath, complete linen change. Lift sheet placed under patient. Some old drainage noted from lower surgical dressing. After cares, sats dropped to 88%, recovered to 90%. Suctioned
for small amount of brown ETT secretions.Sats further improved to 93%. Low grade temp 99.6F. Ice packs to bilateral axilla and groin. Patient noted to have paroxysmal Aflutter with SR. BBS with faint scattered rhonchi. No bowel sounds audible. No
other change in assessment.
[2025-06-10 04:00] VITALS: BMI 42.2
[2025-06-10 04:28] LABS: B.E. 4.1 mmol/L; HCO3 30.2 mmol/L (21-28); O2 Saturation % 99.2 % (94-98); PCO2 51 mmHg (35-48); PO2 126 mmHg (83-108)
[2025-06-10 04:41] LABS: Hematocrit 36.3 % (39.0-52.0); Hemoglobin 11.4 g/dL (13.0-18.0); Mean Corp Hgb Conc. 31.4 g/dL (33.0-37.0); Mean Corpuscular Volume 82.9 fL (80.0-94.0); Platelet Count 218 10^3/uL (130-400); Red Cell Dist. Width 14.9 % (11.5-14.5)
[2025-06-10 05:08] LABS: ALT (SGPT) < 10 U/L (0-50); AST (SGOT) 50 U/L (17-59); Albumin 2.6 g/dl (3.5-5.0); Alkaline Phosphatase 77 U/L (38-126); Blood Urea Nitrogen 32 mg/dl (9-20); Calcium 8.3 mg/dl (8.4-10.2); Carbon Dioxide 30 mmol/L (22-30); Chloride 102 mmol/L (98-107); Estimated Creatinine Clearance > 125 ml/min; Glucose 174 mg/dl (70-99); Magnesium 2.4 mg/dl (1.6-2.3); Potassium 4.9 mmol/L (3.5-5.1); Sodium 135 mmol/L (135-145); Total Protein 5.2 g/dl (6.3-8.2); eGFR > 60.00
[2025-06-10 05:23] LABS: Glucose - Point of Care 168 mg/dl (70-99)
[2025-06-10] MEDS: NOVOLOG FLEXPEN-MODERATE RESISTANCE 1 UNITS SC ×3 (05:30→17:26)
[2025-06-10] MEDS: SOLU-CORTEF 50 MG IV ×3 (05:30→17:26)
[2025-06-10 05:35] LABS: TSH 1.29 uIU/ml (0.47-4.68)
[2025-06-10] MEDS: FLEXBUMIN 100 IV (05:58)
--- NOTE | 2025-06-10 07:13 | PTCARENOTE ---
Report given verbally to oncMargarito lozano RN. Bedside rounds complete. Questions answered.
[2025-06-10] MEDS: SUBUTEX 4 MG SL (07:34)
[2025-06-10] MEDS: HYDROPHOR 1 APPLIC TOPICAL (07:34)
[2025-06-10 07:41] VITALS: BP 137/62
[2025-06-10 08:00] VITALS: BP 129/61
[2025-06-10] MEDS: RELISTOR 12 MG SC (08:02)
--- NOTE | 2025-06-10 08:09 | W.PN.CRS1 ---
Today's Communication / Plan
-
continue current management
wean vent and pressers per well drill operator
Assessment/Plan
-
POD#2 Exploratory laparotomy, lysis of adhesions, sigmoidectomy, decompression of right colon, abdominal washout, creation of end descending colostomy, umbilical hernia repair
WBC: 10.6 (5.1), Hgb 11.4 (12.9)
levophed @ 10
vasopression @ 0.03
propofol/fentanyl gtt
afebrile
-Wean ventilator per well drill operator
- Okay for out of bed if extubated
- Wean pressors as per intensive care team
- Maintain CHRISTINE drain
- Start Lovenox today. Teds and SCDs for DVT prophylaxis.
- OR pathology pending
- Sabra in place for the midline incision which will be removed prior to discharge
- OG tube in place putting out 500 mL in the past 24 hours
- Maintain Mason for I's and O's
- If extubated, remain n.p.o.
- Appreciate well drill operator, gastroenterology, hospitalist
-Ulceration on stoma(surgeon aware)
-I have updated his , Bernie, via phone
Subjective Data
Procedure
06/08/25- Exploratory laparotomy, lysis of adhesions, sigmoidectomy, decompression of right colon, abdominal washout, creation of end descending colostomy, umbilical hernia repair
Subjective Data
Date of Service: June 10, 2025
Patient intubated and sedated.
Objective Data
-
Vital Signs
Temp Pulse Resp BP Pulse Ox
99.8 F 61 20 130/67 93
06/10/25 07:53 06/10/25 07:00 06/10/25 07:00 06/10/25 00:00 06/10/25 07:22
Intake & Output
06/09/25 06/10/25 06/11/25
06:59 06:59 06:59
Intake Total 2318.0 / 2395.6 6145.3 / 6360.7 215.4 / 215.4
Output Total 2110 / 2110 4740 / 4740
Balance 208.0 / 285.6 1405.3 / 1620.7 215.4 / 215.4
Intake:
IV fluids (Total) 1098.0 / 1175.6 4795.3 / 5010.7 215.4 / 215.4
Diprivan gtt 89.2 / 103.0 440.5 / 468.1 27.6 / 27.6
Double concentrated Levophed 185.6 / 211.9 26.3 / 26.3
Fentanyl gtt 70.0 / 85.0 458.5 / 486.0 27.5 / 27.5
Levophed gtt 218.8 / 267.6 915.2 / 915.2
Nss 1,000 ml @ 125 mls/hr IV . 720.0 / 720.0 2687.5 / 2812.5 125 / 125
Q8H JASBIR Rx#:[id number]
Vasopressin gtt 108 / 117 9 / 9
IV piggybacks 1060 / 1060 1160 / 1160
Amount instilled into Drain ( 40 / 40
Total)
Right Lower Abdomen [place]- 40 / 40
Vo
Amount instilled into GI Tube ( 120 / 120 190 / 190
Total)
[place] Sump 120 / 120 190 / 190
Output:
Drain Output (Total) 135 / 135 65 / 65
Left Abdomen 40 / 40
Right Lower Abdomen [place]- 135 / 135 / 25
Vo
Gastrointestinal tube output ( 500 / 500 1100 / 1100
Total)
[place] Sump 500 / 500 1100 / 1100
Urine, Mason 1475 / 1475 3575 / 3575
Lab Results
06/10/25 04:19
06/10/25 04:19
Physical Exam
-
General: Other (intubated, sedated)
Abdomen: Soft, Distended (moderate) and Other (midline abdominal incision, colostomy warm and pink, no function)
Skin: Warm and Dry
Wound: Dressing in Place
--- NOTE | 2025-06-10 08:15 | PTCARENOTE ---
Assumed care of pt. See property assessment monitor charted on worklist flowsheet. Patient is intubated and sedated on ventilator. #8ETT, 24 cm at lip, secured at the center. AC 20/TV 500/50%/8. Patient sats 94%. Midline abdominal incision with Aquacell dressing
with mod amt serosang drainage, CHRISTINE drain to bulb suction RLQ with serosanguinous drainage. BLEs with wound dressings and BOO wraps in place. Foot pumps on. Mason catheter patent draining clear jack urine. Colostomy LLQ, stoma pink and budded with
small area of sanchez at stoma noted. Scant amount of serosanguinous drainage and smear stool in colostomy bag. Abdomen round/obese and soft. Brown fecal smelling drainage from OGT. SR with BBB on CM. Mccarley left arm, leveled and zeroed. Left hand IV
site #20, PICC RUE with Propofol, fent gtt up for sedation, weaning for possible SBT. Levophed, vaso gtt infusing. HOB up 30 degrees. Bed in low and locked position. Frequent RN rounds on patient.
--- NOTE | 2025-06-10 10:37 | W.PN.INTV ---
Today's Communication / Plan
Recommendations
Continue mechanical ventilation without change
Minimize sedation-hopefully patient appropriate for spontaneous breathing trial
Maintain NG tube
Continue antibiotics
Maintain Mason
Wean down vasopressors currently on Levophed/vasopressin
Hopefully can start pharmacological DVT prophylaxis tomorrow
Assessment
-
Assessment: 64-year-old male with a past medical history of cardiomyopathy, hypertension, DM type II, history of chronic opioid use due to chronic arthritis now on buprenorphine, history of ERASMO, venous insufficiency and chronic back pain who
presented with shortness of breath, abdominal distention. Found to have severe colonic distention. Initially treated with neostigmine, attempted sigmoidoscopy without attempt. Underwent exploratory laparotomy 06/08/2025-developed shock requiring
vasopressors and remained on mechanical ventilation. We were consulted on 06/09/2025.
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
OxyContin/oxycodone,systolic cardiomyopathy.
Impression:
Acute hypoxemic respiratory failure post surgery: Due to abdominal distention requiring intubation mechanical ventilation
Septic shock suspected-source likely intraperitoneal
Status post laparotomy:Exploratory laparotomy, lysis of adhesions, sigmoidectomy, decompression of right colon, abdominal washout, creation of end descending colostomy, umbilical hernia repair-06/08/2025
--
# Colonic dysmotility
#Atrial flutter
#Chronic HFrEF with right ventricular systolic dysfunction
#Valvular heart disease with mild as moderate MR and mild as moderate TR
#Morbid obesity
#DM type II
#Venous deficiency
#History of ERASMO
#Chronic pain management due to arthritis currently on buprenorphine in an effort to calm off of OxyContin/oxycodone
Plan:
-
Patient is critically ill: Intubated on mechanical ventilation and shock requiring vasopressors.
-
Mechanical ventilation settings reviewed:
Pulmonary mechanics acceptable with a peak pressure of around 20.
ET tube without secretions
No evidence for bronchospasm
FiO2 is 40%
ABG 06/09/2025: 7.35/40/118.
ABG 06/10/2025: 7.38/51/126
Continue mechanical ventilation without change
No plan for spontaneous breathing trial at this point.
-
Will attempt to decrease sedation today, if patient appropriate may try the spontaneous breathing trial.
If patient agitated, may consider Precedex for behavioral control if hemodynamics allow.
-
Continue fentanyl drip-wean down as able. Will attempt to use as needed. RASS score 0/-1
Continue propofol drip
-
Septic shock: Suspect intra-abdominal source-possible peritonitis postsurgically-washout was performed.
Status post laparotomy for significant abdominal distention as above.
NG tube in place with feculent material draining briskly-maintain NG tube for now.
Follow surgical recommendations
Colostomy in place-serosanguineous output.
Abdomen is soft
-.
Normal renal function
Adequate urinary output
Follow respiratory status with history of heart failure. At risk for volume overload. Not present at this point.
-
Continue Levophed/vasopressin to maintain mean blood pressure above 65 mmHg
Currently 10 mics per minute. Stable requirements from yesterday.
Hopefully requirements will improve as sedation is weaned off.
Mason in place urinary output will be measured hourly
-
Ertapenem continue for now
Follow cultures
-
Heart failure with reduced ejection fraction/atrial flutter
Echocardiogram reviewed 04/28/2025: Ejection fraction 35%. Global hypokinesis. Mild LVH. Stage I diastolic dysfunction. Mildly dilated right ventricle. Mild aortic stenosis. Mild TR. Estimated pulmonary artery pressure 50 to 55 mmHg.
Chest x-ray post intubation noted: Left lower lobe abnormality suspect atelectasis
Patient not behaving like he has pneumonia
Holding diuresis
N.p.o. for now
Usually on amiodarone.
Unfortunately none of the oral medication will be able to be given until cleared by surgery. Currently having significant output through the NG tube.
-
N.p.o.
Head of elevation
Maintain PICC line.
Suspect this patient likely will require TPN if there is no improvement.
-
Glycemic control: Target 140-180.
Continue Lantus 10 units at night
Insulin sliding scale
-
DVT prophylaxis: SCDs for now
Eventual start anticoagulation-per surgery hopefully tomorrow of this start pharmacological prophylaxis.
-
Prognosis is guarded
-
Critical care statement: A total of 40 minutes of critical care time was provided for this patient today. This includes management of unstable vital signs, evaluation of the patient at bedside, reviewing the patient's pertinent medical records
including ventilator settings, arterial blood gases, radiographs, microbiology, laboratory evaluations and discussion with primary team, critical care nursing, and respiratory therapy.

Data reviewed:
Chest x-ray 06/08/2025: Reviewed, ET tube in place. Left lower lobe airspace disease. Cardiomegaly
-
CT abdomen pelvis 06/05/2025:
The patient is significantly distended, and much of the abdominal and upper pelvic soft tissues extending anterior and to the left of the [id number], which limits evaluation, as it becomes difficult to confidently follow the loops of bowel.
There is distention of the rectum with air and stool, measuring 9.3 cm in diameter. There is marked distention of the sigmoid colon which extends into the right and central upper abdomen, with the sigmoid colon measuring up to 18 cm in diameter. The
sigmoid colon contains a moderate to large amount of stool, mainly inferiorly. There appears to be moderate distention of the rest of the visualized colon.
Small bowel loops are present, and do not appear to be significantly distended, similar appearance to prior examination.
Of note, the cecum cannot be confidently identified on the present examination
No gross evidence of free intraperitoneal air.
There is patchy parenchymal opacity within the visualized lower lungs, most likely atelectasis. A component of pneumonia is also possible, although felt to be less likely. There is no significant pleural effusion and no significant pericardial
effusion.
Coronary artery calcifications are present. Please correlate with symptoms of and risk factors for coronary artery disease, with further workup as clinically appropriate.
Of note, the stomach is not distended.
Subjective Dataa
Subjective Data
Date of Service:
Date of Service: June 10, 2025
Chief Complaint: Solutions Developer Follow Up (Septic shock/respiratory failure require mechanical ventilation)
Subjective:
Sedated, unable to provide history
Events from overnight noted, agitated requiring increased sedation.
Remains on moderate dose Levophed/vasopressin
Review of Systems
General: Unobtainable - Sedation
Objective Data
Data Reviewed
Vital Signs / I&O / Oxygen:
Vital Signs
Temp Pulse Resp BP Pulse Ox
99.8 F 68 20 129/61 94
06/10/25 07:53 06/10/25 09:00 06/10/25 09:00 06/10/25 08:00 06/10/25 09:00
Intake and Output
06/09/25 06/10/25 06/11/25
06:59 06:59 06:59
Intake Total 2318.0 / 2395.6 6145.3 / 6360.7 587.8 / 587.8
Output Total 2110 / 2110 4740 / 4740 300 / 300
Balance 208.0 / 285.6 1405.3 / 1620.7 287.8 / 287.8
SaO2 [A/C] 94
SaO2 94
Nasal Cannula flow liters per 3
minute
Physical Exam
General: Comfortable
HEENT: Normocephalic
Cardiovascular: S1-S2
Respiratory: Clear and ET Tube
GI: Soft, Distended and Other (Colostomy in place with mild serosanguineous output.)
Neurology: Other (Sedated, has respiratory effort. Agitated overnight.)
Skin: Warm
Labs/Micro/Reports
Lab Data
06/10/25 04:19
06/10/25 04:19
Laboratory Results
06/10/25
04:19
pH 7.38
pCO2 51 H
pO2 126 H
HCO3 30.2 H
O2 Delivery Level
Microbiology
06/06/25 07:57 Nose MRSA Screen - Final
No Methicillin Resistant Staphylococcus aureus isolated.
[2025-06-10] MEDS: PITRESSIN 100 IV ×2 (10:51→19:41)
[2025-06-10 12:17] LABS: Glucose - Point of Care 160 mg/dl (70-99)
--- NOTE | 2025-06-10 12:30 | PTCARENOTE ---
Multiple attempts to place NGT unsuccessful. Unable to pass 2 cm in L nare and right nare continues to coil into oropharynx. Business Relations Manager notified. Assessment unchanged.
--- NOTE | 2025-06-10 13:14 | W.PN.HOSP.TC ---
Today's Communication/Plan
-
Continue management in the ICU.
Assessment / Plan
Assessment / Plan
Impression:
Mr. Knapp is a 64-year-old male with medical history of HFpEF, A-fib/flutter, IDDM, obesity, chronic pain with subsequent opioid dependence, and chronic constipation with colonic dysmotility who presented with shortness of breath, abdominal
bloating and discomfort, constipation. His last bowel movement was 2 weeks prior to arrival. He is having increasing difficulty breathing due to worsening abdominal distention. He has had multiple similar episodes since September 2024 and has
previously required decompression. He has been treated with enemas and neostigmine previously. Abdominal imaging showed significant colonic distention with air-filled loops of bowel. He also had patchy parenchymal opacities within the mid to
lower lungs. He was mildly hypoxic and has been started on antibiotics. He has remained afebrile with a mild leukocytosis of just over 12,000. He has been admitted for further evaluation and management.
Seen by GI, failed neostigmine, enema, status post nonsuccessful decompressive flexible sigmoidoscopy.
Surgery team consulted.
s/p Exploratory laparotomy, lysis of adhesions, sigmoidectomy, decompression of right colon, abdominal washout, creation of end descending colostomy, umbilical hernia repair on 06/08
admitted to ICU postoperatively, intubated.
Assessment/Plan:
Colonic dysmotility/ileus:
- Abdomen remains significantly distended despite multiple medical classes enemas and subsequent bowel movements
- Upgraded to IMU today, pushed 4 mg neostigmine around 1:30 PM, awaiting peristaltic response
- GI following, appreciate guidance, may need to involve colorectal surgical team if no improvement
- Clear liquid diet for now
- Continue home Linzess
- If medical therapy fails he may need to have an elective sigmoidectomy considering multiple similar recurrences, holding home Xarelto pending any needed surgical interventions, last dose evening of 06/06
06/08
status post nonsuccessful decompressive flexible sigmoidoscopy
Surgery team consulted
Possible OR today
Discussed with patient and at [facility].
06/09
S/P Exploratory laparotomy, lysis of adhesions, sigmoidectomy, decompression of right colon, abdominal washout, creation of end descending colostomy, umbilical hernia repair.
06/10
still in the ICU postoperatively, intubated.
Acute hypoxic respiratory failure (currently intubated in the ICU postoperatively)
Continue mechanical ventilation
paroxismal A-fib/flutter:
- Currently rate controlled, continue home metoprolol and amiodarone
- Holding home Xarelto .
IDDM:
- Uses Lantus 24 units at night and sliding scale insulin at home
- Has been on sliding scale insulin alone since admission, will add reduced dose of Lantus while on modified diet
- Monitor Accu-Cheks and adjust regimen as needed
HFpEF:
- Chronic, currently compensated
- Continue beta-blockade with home metoprolol succinate 100 mg at night
- Holding home Lasix for now, continuing spironolactone, monitor daily weights
- No need for afterload reduction due to borderline hypotension
CODE STATUS: Full code
DVT prophylaxis: hold Xarelto
Diet: NPO
Family communication: Discussed with at bedside 06/08.
Disposition: Continue management in the ICU.
Total time spent on today's encounter was 75 minutes which included time spent in counseling the patient/family regarding diagnosis and treatment plan as listed above, goals of care, and symptom management. Case was discussed with nursing staff,
specialists, and care coordinators/case management. All labs and imaging personally reviewed by me. Remainder the time spent in detailed review of previous records, lab data, imaging, and other medical provider documentation.
Anticipated Discharge: > 48 hours
Subjective/Interval History
-
Date of Service: June 10, 2025
Patient is status post ex lap, currently intubated in the ICU.
Objective Data
-
Labs:
Laboratory Results
06/10/25
04:19
WBC 10.6
Hgb 11.4 L
Hct 36.3 L
Plt Count 218
HCO3 30.2 H
Sodium 135
Potassium 4.9
Chloride 102
Carbon Dioxide 30
BUN 32 H
Creatinine 0.7
Glucose 174 H
Calcium 8.3 L
Total Bilirubin 1.1
AST 50
ALT < 10
Alkaline Phosphatase 77
Vital Signs:
Vital Signs
Temp Pulse Resp BP Pulse Ox
99.2 F 73 20 129/61 94
06/10/25 11:18 06/10/25 12:00 06/10/25 12:00 06/10/25 08:00 06/10/25 12:00
I&O
06/09/25 06/10/25 06/11/25
06:59 06:59 06:59
Intake Total 2318.0 / 2395.6 6145.3 / 6360.7 1146.4 / 1146.4
Output Total 2110 / 2110 4740 / 4740 625 / 625
Balance 208.0 / 285.6 1405.3 / 1620.7 521.4 / 521.4
Physical Exam
-
General: Intubated and Obese
HEENT: Normocephalic, Atraumatic, Moist Mucous Membranes, No Ptosis, PERRLA and Nose Appears Normal
Respiratory: Rales, Rhonchi and Non Labored Respirations
Cardiac: Regular Rhythm and S1/S2
Breast: Deferred by me
GI: Other (Colostomy bag, midline incision clean)
Musculoskeletal: No Clubbing and No Cyanosis
Skin: Warm
Neuro: Sedated
Psych: Other (Sedated)
Data Reviewed
-
Diagnostic Radiology: Image personally visualized and interpreted and Report Reviewed by me
CT Scan: Image personally visualized and interpreted and Report Reviewed by me
Ultrasound: Image personally visualized and interpreted and Report Reviewed by me
MRI: Image personally visualized and interpreted and Report Reviewed by me
Medical Tests (Nuc Med, Echo etc): Image personally visualized and interpreted and Report Reviewed by me
Labs: Labs Reviewed by me
Old Records: Reviewed
--- NOTE | 2025-06-10 14:40 | CM ---
POD# 2, intubated, reduce sedation, NGT, IV/Ertapenem and Solu-Cortef, wean pressors. Discharge POC: TBD.
[2025-06-10] MEDS: LOVENOX 40 MG SC (17:25)
[2025-06-10 17:34] LABS: Glucose - Point of Care 177 mg/dl (70-99)
[2025-06-10] MEDS: OFIRMEV 100 IV (17:48)
--- NOTE | 2025-06-10 20:10 | PTCARENOTE ---
on assessment pt intubated and sedated, febrile, BENNETT, SR on the monitor, generalized edema, #8 ETT 24 at the lip, AC 20/500/50/8, NPO, OGT 71 at the lip, L colostomy, morales in place, midline incision, R CHRISTINE drain, and colostomy dressings intact, BLLE
adin wrapped, pt with RUE PICC, LEVO, VASO, NSS, FEN, PROP gtt runner per MD orders
[2025-06-10] MEDS: TOPROL XL PO (21:34)
[2025-06-10] MEDS: PACERONE 200 MG TUBE (21:35)
[2025-06-10 21:53] LABS: Glucose - Point of Care 184 mg/dl (70-99)
[2025-06-10] MEDS: LANTUS 0.1 UNITS SC (22:11)
[2025-06-11 00:11] LABS: Glucose - Point of Care 151 mg/dl (70-99)
[2025-06-11] MEDS: INVANZ 60 MG IV (00:16)
[2025-06-11] MEDS: SOLU-CORTEF 50 MG IV ×4 (00:17→22:03)
[2025-06-11] MEDS: NSS 1000 IV ×3 (00:17→16:47)
[2025-06-11] MEDS: DIPRIVAN 100 IV ×4 (00:18→12:48)
[2025-06-11] MEDS: NOVOLOG FLEXPEN-MODERATE RESISTANCE 1 UNITS SC ×3 (00:19→23:18)
--- NOTE | 2025-06-11 00:34 | PTCARENOTE ---
ABD slightly more distended since beginning of shift, increased output of serosanguineous drainage from R CHRISTINE drain, STREETCAR REPAIRER made aware, weaning down on pressors
[2025-06-11] MEDS: SUBLIMAZE 100 IV ×3 (03:02→17:57)
[2025-06-11 03:32] LABS: B.E. 4.9 mmol/L; HCO3 31.2 mmol/L (21-28); O2 Saturation % 98.8 % (94-98); PCO2 54 mmHg (35-48); PO2 111 mmHg (83-108)
--- NOTE | 2025-06-11 03:32 | PTCARENOTE ---
Received pt from previous RN. Pt is intubated and sedated. B/l wrist restraints in place. NSR w/ BBB on the monitor. ETT #8 at 25 cm, AC 20/500/50%/8, O2 sat 96%, diminished. Left colostomy. OGT at 71 cm to low intermittent suction. Mason in place.
Right CHRISTINE drain. B/l BOO wraps in place. CHG bath provided. AM labs provided. [place] zeroed and transduced. Safe environment maintained.
--- NOTE | 2025-06-11 03:38 | PTCARENOTE ---
Received pt from previous RN. Pt is intubated and sedated. B/l wrist restraints in place. NSR w/ BBB on the monitor. ETT #8 at 25 cm, AC 20/500/50%/8, O2 sat 96%, diminished. Left colostomy. OGT at 71 cm to low intermittent suction. Mason in place.
Right CHRISTINE drain. B/l BOO wraps in place. CHG bath provided. AM labs provided. Prop, fent, vaso, levo and NS gtts maintained. Deidra zeroed and transduced. Safe environment maintained.
[2025-06-11 03:51] LABS: Hematocrit 28.4 % (39.0-52.0); Hemoglobin 9.1 g/dL (13.0-18.0); Mean Corp Hgb Conc. 32.0 g/dL (33.0-37.0); Mean Corpuscular Volume 83.0 fL (80.0-94.0); Platelet Count 152 10^3/uL (130-400); Red Cell Dist. Width 14.9 % (11.5-14.5)
[2025-06-11 04:05] LABS: Prealbumin (Transthyretin) 4.1 mg/dl (17.6-36.0)
[2025-06-11 04:05] LABS: Albumin 2.5 g/dl (3.5-5.0); Blood Urea Nitrogen 21 mg/dl (9-20); Calcium 8.1 mg/dl (8.4-10.2); Carbon Dioxide 29 mmol/L (22-30); Chloride 105 mmol/L (98-107); Estimated Creatinine Clearance > 125 ml/min; Glucose 156 mg/dl (70-99); Magnesium 2.2 mg/dl (1.6-2.3); Potassium 4.4 mmol/L (3.5-5.1); Sodium 138 mmol/L (135-145); Triglycerides 147 mg/dl (10-149); eGFR > 60.00
[2025-06-11 04:16] LABS: C-Reactive Protein > 270.00 mg/L (0.0-10.00)
[2025-06-11 04:24] VITALS: BMI 42.7
[2025-06-11 06:05] LABS: Glucose - Point of Care 144 mg/dl (70-99)
[2025-06-11] MEDS: NOVOLOG FLEXPEN-MODERATE RESISTANCE SC ×2 (06:09→17:56)
[2025-06-11] MEDS: PITRESSIN 100 IV (06:24)
[2025-06-11] MEDS: HYDROPHOR 1 APPLIC TOPICAL (08:38)
[2025-06-11] MEDS: SUBUTEX 4 MG SL (08:40)
[2025-06-11] MEDS: OFIRMEV 100 IV ×3 (08:41→23:51)
--- NOTE | 2025-06-11 08:56 | W.PN.CRS1 ---
Addendum entered and electronically signed by Jl Pierre MD 06/11/25 09:06:
Correction from my note, repeat CBC now
Original Note:
Today's Communication / Plan
-
As below
Assessment/Plan
-
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
obstipation associated with megacolon. WBC 11.[address] showing gaseous distention of the colon, diameter of the sigmoid up to 18 cm in diameter. He received a dose of neostigmine, which failed. He underwent attempt at decompressive sigmoidoscopy,
but encountered too much stool. Due to refractory nature of his issue, we proceeded with surgery.
POD 3 exlap, sigmoidectomy, end-colostomy; iatrogenic spillage of stool - controlled and abdomen washed out, no colonic ischemia or perforation
Tmax 102.9, VSS
WBC 8.7 from 10.6, Hb 9.1 from 11.4 from 12.9, CR 0.7; prealbumin low
�Critically ill, possibly due to poor compensation s/p general anesthesia and dehydration; with ostomy functioning and abdominal drainage serosanguineous, it seems less likely abdominal source for sepsis; gradually improving but still spiking fevers
�I would recommend against CTAP right now as his abdominal exam is improving and he is showing evidence of bowel function
�Continue pain control and sedation
�Wean vent as tolerated; appreciate ICU
� Maintain MAP greater than 65, wean pressors as tolerated
� Okay for DVT PPx, continue holding full AC
�Repeat CBC at 1 PM for drop in Hb
� Continue n.p.o. with OGT; will start TPN
� Continue IV ertapenem for stool contamination intraoperatively for 4 days unless another source identified
� Continue Mason, strict I&O's; continue IVF at 125
�Appreciate clinic administrator and primary
Subjective Data
Procedure
06/08/25- Exploratory laparotomy, lysis of adhesions, sigmoidectomy, decompression of right colon, abdominal washout, creation of end descending colostomy, umbilical hernia repair
Subjective Data
Date of Service: June 11, 2025
Remains intubated and sedated, fentanyl at 150, propofol at 25. Not awake with verbal stimuli.
Pressors have been slowly coming down, levo at 6 and vaso 0.03.
Ostomy is functioning with stool and gas in the bag.
Objective Data
-
Vital Signs
Temp Pulse Resp BP Pulse Ox
102.9 F H 67 20 115/51 92
06/11/25 07:21 06/11/25 06:30 06/11/25 06:30 06/10/25 21:35 06/11/25 07:37
Intake & Output
06/10/25 06/11/25 06/12/25
06:59 06:59 06:59
Intake Total 6145.3 / 6360.7 4512.7 / 4512.7
Output Total 4740 / 4740 3875 / 3875
Balance 1405.3 / 1620.7 637.7 / 637.7
Intake:
IV fluids (Total) 4795.3 / 5010.7 4422.7 / 4422.7
Diprivan gtt 440.5 / 468.1 492.2 / 492.2
Double concentrated Levophed 185.6 / 211.9 342.0 / 342.0
Fentanyl gtt 458.5 / 486.0 372.5 / 372.5
Levophed gtt 915.2 / 915.2
Nss 1,000 ml @ 125 mls/hr IV . 2687.5 / 2812.5 3000 / 3000
Q8H JASBIR Rx#:[id number]
Vasopressin gtt 108 / 117 216 / 216
IV piggybacks 1160 / 1160
Amount instilled into GI Tube ( 190 / 190 90 / 90
Total)
[place] 190 / 190 /
Output:
Liquid stool amount
Colostomy
Drain Output (Total) 245 / 245
Left Abdomen 40 / 40
Right Lower Abdomen [place]- 245 / 245
Vo
Gastrointestinal tube output ( 1099 /
Total)
[place] 1099
Urine, Mason 3575 / 3575 2885 / 2885
Lab Results
06/11/25 03:22
06/11/25 03:23
Physical Exam
-
General: No Acute Distress and AOx3
HEENT: Grossly Normal
Abdomen: Soft, Distended (Moderately distended in the upper abdomen, improved from yesterday), Tender (Appropriately tender near midline incision), No Guarding, No Rebound and Other (Ostomy dark pink, productive of stool and gas in the bag; midline
incision dressed with Aquacel and stable strikethrough; CHRISTINE-serosanguineous output)
Skin: Warm and Dry
[2025-06-11 10:27] LABS: Hematocrit 31.3 % (39.0-52.0); Hemoglobin 9.6 g/dL (13.0-18.0); Mean Corp Hgb Conc. 30.7 g/dL (33.0-37.0); Mean Corpuscular Volume 85.1 fL (80.0-94.0); Platelet Count 138 10^3/uL (130-400); Red Cell Dist. Width 14.8 % (11.5-14.5)
[2025-06-11 10:40] LABS: Urine Character Clear (Clear)
--- NOTE | 2025-06-11 11:00 | W.PN.INTV ---
Today's Communication / Plan
Recommendations
Start Precedex-discontinue propofol
Wean down fentanyl
Hopefully spontaneous breathing trial
Continue antibiotics
Follow cultures
IV hydration-maintenance
Continue mechanical ventilation without change
Assessment
-
Assessment: 64-year-old male with a past medical history of cardiomyopathy, hypertension, DM type II, history of chronic opioid use due to chronic arthritis now on buprenorphine, history of ERASMO, venous insufficiency and chronic back pain who
presented with shortness of breath, abdominal distention. Found to have severe colonic distention. Initially treated with neostigmine, attempted sigmoidoscopy without attempt. Underwent exploratory laparotomy 06/08/2025-developed shock requiring
vasopressors and remained on mechanical ventilation. We were consulted on 06/09/2025.
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
OxyContin/oxycodone,systolic cardiomyopathy.
Impression:
Acute hypoxemic respiratory failure post surgery: Due to abdominal distention requiring intubation mechanical ventilation
Septic shock suspected-source likely intraperitoneal
Status post laparotomy:Exploratory laparotomy, lysis of adhesions, sigmoidectomy, decompression of right colon, abdominal washout, creation of end descending colostomy, umbilical hernia repair-06/08/2025
--
# Colonic dysmotility
#Atrial flutter
#Chronic HFrEF with right ventricular systolic dysfunction
#Valvular heart disease with mild as moderate MR and mild as moderate TR
#Morbid obesity
#DM type II
#Venous deficiency
#History of ERASMO
#Chronic pain management due to arthritis currently on buprenorphine in an effort to calm off of OxyContin/oxycodone
Plan:
-
Patient is critically ill: Intubated on mechanical ventilation and shock requiring vasopressors.
-
Mechanical ventilation settings reviewed:
Pulmonary mechanics continue to be acceptable.
Chest x-ray with bibasilar atelectasis.
ABG with adequate oxygenation and ventilation
FiO2 between 40 and 50%.
ET tube without secretions
No evidence for bronchospasm
Continue mechanical ventilation without change
-
Given improvement on hemodynamics.
Will attempt to wean down sedation if agitated then Precedex will be started.
Hopefully can attempt weaning trial today.
-
Continue fentanyl drip-wean down as able. Will attempt to use as needed. RASS score 0/-1
Continue propofol drip
Start Precedex as above and discontinue propofol drip.
-
Septic shock: Suspect intra-abdominal source-possible peritonitis postsurgically-washout was performed.
Levophed requirements improved. Vasopressin will be discontinued later today.
Status post laparotomy for significant abdominal distention as above.
NG tube in place with feculent material draining briskly-maintain NG tube for now.
Follow surgical recommendations
Colostomy in place-serosanguineous output.
Abdomen is soft
-.
Normal renal function
Adequate urinary output
Follow respiratory status with history of heart failure. At risk for volume overload. Not present at this point.
Mason in place urinary output will be measured hourly
-
Remains febrile without leukocytosis.
Ertapenem continue for now
Obtain blood cultures and urinalysis
ID consulted as pt remains febrile.
Surgery also is following-no need for repeat imaging for now.
-
Heart failure with reduced ejection fraction/atrial flutter
Echocardiogram reviewed 04/28/2025: Ejection fraction 35%. Global hypokinesis. Mild LVH. Stage I diastolic dysfunction. Mildly dilated right ventricle. Mild aortic stenosis. Mild TR. Estimated pulmonary artery pressure 50 to 55 mmHg.
Chest x-ray post intubation noted: Left lower lobe abnormality suspect atelectasis
Patient not behaving like he has pneumonia
Holding diuresis
N.p.o. for now
Usually on amiodarone.
Unfortunately none of the oral medication will be able to be given until cleared by surgery. Currently having significant output through the NG tube.
-
N.p.o.
Gentle IV fluids
Daily labs follow electrolytes.
Head of elevation
Maintain PICC line.
-
Anemia: Blood loss.
Stable
Follow
Will transfuse as needed
-
Glycemic control: Target 140-180.
Continue Lantus 10 units at night
Insulin sliding scale
-
DVT prophylaxis: SCDs for now
Eventual start anticoagulation-start prophylaxis with heparin today. Eventually restart anticoagulation.
-
Prognosis is guarded
-
Critical care statement: A total of 41 minutes of critical care time was provided for this patient today. This includes management of unstable vital signs, evaluation of the patient at bedside, reviewing the patient's pertinent medical records
including ventilator settings, arterial blood gases, radiographs, microbiology, laboratory evaluations and discussion with primary team, critical care nursing, and respiratory therapy.

Data reviewed:
Chest x-ray 06/08/2025: Reviewed, ET tube in place. Left lower lobe airspace disease. Cardiomegaly
-
CT abdomen pelvis 06/05/2025:
The patient is significantly distended, and much of the abdominal and upper pelvic soft tissues extending anterior and to the left of the [id number], which limits evaluation, as it becomes difficult to confidently follow the loops of bowel.
There is distention of the rectum with air and stool, measuring 9.3 cm in diameter. There is marked distention of the sigmoid colon which extends into the right and central upper abdomen, with the sigmoid colon measuring up to 18 cm in diameter. The
sigmoid colon contains a moderate to large amount of stool, mainly inferiorly. There appears to be moderate distention of the rest of the visualized colon.
Small bowel loops are present, and do not appear to be significantly distended, similar appearance to prior examination.
Of note, the cecum cannot be confidently identified on the present examination
No gross evidence of free intraperitoneal air.
There is patchy parenchymal opacity within the visualized lower lungs, most likely atelectasis. A component of pneumonia is also possible, although felt to be less likely. There is no significant pleural effusion and no significant pericardial
effusion.
Coronary artery calcifications are present. Please correlate with symptoms of and risk factors for coronary artery disease, with further workup as clinically appropriate.
Of note, the stomach is not distended.
Subjective Dataa
Subjective Data
Date of Service:
Date of Service: June 11, 2025
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
Subjective:
Critically ill on mechanical ventilation
With sedation breaks able to move extremities
Remains febrile
Remains on vasopressor
Review of Systems
General: Unobtainable - Sedation
Objective Data
Data Reviewed
Vital Signs / I&O / Oxygen:
Vital Signs
Temp Pulse Resp BP Pulse Ox
102.9 F H 70 21 115/51 93
06/11/25 07:21 06/11/25 09:30 06/11/25 09:30 06/10/25 21:35 06/11/25 09:30
Intake and Output
06/10/25 06/11/25 06/12/25
06:59 06:59 06:59
Intake Total 6145.3 / 6360.7 4512.7 / 4696.0 921.8 / 921.8
Output Total 4740 / 4740 3875 / 3955 310 / 310
Balance 1405.3 / 1620.7 637.7 / 741.0 611.8 / 611.8
SaO2 [A/C] 95
SaO2 93
Nasal Cannula flow liters per 3
minute
Physical Exam
General: Comfortable
HEENT: Normocephalic
Cardiovascular: S1-S2
Respiratory: Clear and ET Tube
GI: Soft, Distended, Other (Colostomy in place with mild serosanguineous output.) and Other (NG tube in place with fecal like material)
Neurology: Other (Currently sedated. With sedation breaks with increased work of breathing, moving 4 extremities. Agitated)
Skin: Warm
Labs/Micro/Reports
Lab Data
06/11/25 09:59
06/11/25 03:23
Laboratory Results
06/11/25
03:22
pH 7.37
pCO2 54 H
pO2 111 H
HCO3 31.2 H
O2 Delivery Level
[2025-06-11 11:04] LABS: Absolute Neutrophils -Man Diff 6.0 10^3/uL (1.4-6.5)
[2025-06-11 11:05] LABS: Platelets Checked Yes
--- NOTE | 2025-06-11 11:05 | CON.ID ---
Consultation
-
Date/Time Consultation Requested: June 11, 2025 0902
Date/Time Consultation Performed: June 11, 2025 1105
Requesting Provider: Dr. Delano Villanueva
Performing Provider: Dr. Katia Quispe
Reason for Consultation: Sepsis
Chief Complaint / Past History
History of Present Illness
Merrill Knapp is a 64-year-old man with a significant past medical history of diabetes mellitus, CHF colonic inertia/dysmotolity at the request of Dr. Villanueva regarding sepsis. History obtained from review of medical records since patient is
currently intubated and sedated. He was recently hospitalized in May with 5-week history of constipation, and large colon dilation, refused surgical intervention, and treated conservatively. He came back to the hospital on June 05 with worsening
abdominal distention, shortness of breath and severe constipation. Imaging showed colon dilation up to 17.5 cm. Attempt for decompression and neostigmine unsuccessful. Patient finally agreed to surgery. On June 08, she underwent expiratory lap,
lysis of adhesion, sigmoidectomy, right colon decompression, abdominal washout and creation of end descending colostomy, umbilical hernia repair. Of note during OR procedure fred did not hold due to rectum thickening and stool leaked into the
abdomen causing debbie contamination. Postop patient septic, hypoxemic respiratory failure requiring mechanical ventilation, currently on pressors. He is also febrile since the day after surgery. He is currently on ertapenem.
Past History
Additional Past Medical History:
HFrEF
HTN
DM
Afib
HLD
Colonic Inertia / Dysmotility
Chronic opioid dependence
Advanced bilateral lower extremity venous insufficiency
Morbid obesity (BMI~43)
Additional Past Surgical History:
Bilateral knee surgery
Allergy History:
No Known Allergies Allergy (Verified 06/05/25 19:56)
Medications Reviewed: Yes
Current Antibiotics:
Ertapenem d4
Social History
Tobacco: Non-Smoker
Alcohol: None
Drug: None
Personal:
Living: With Family
Employment: Employed
Family History
Family History: Not Pertinent
Review of Systems
Review of Systems
Unable to obtain as patient intubated.
Vital Signs
Temp Pulse Resp BP Pulse Ox
102.9 F H 70 21 115/51 93
06/11/25 07:21 06/11/25 09:30 06/11/25 09:30 06/10/25 21:35 06/11/25 09:30
Physical Exam
Physical Exam
Constitutional: Acutely Ill and Obese
Eyes: No Conjunctival Hemorrhage and Sclera Anicteric
Cardiovascular: Regular Rate and S1/S2
Pulmonary: Clear (Anteriorly)
Gastrointestinal: Soft, Distended, Decreased Bowel Sounds and Other (Colostomy with loose stools, midline incision dressing with dried blood)
Extremities: Edema and Venous Insufficiency
Lab / Diagnostic Study Results
06/11/25 09:59
06/11/25 03:23
Abs Immat Gran (auto) 0.1 10^3/uL (0-0.05) H 06/08/25 04:42
Absolute Neuts (auto) 9.2 10^3/uL (1.4-6.5) H 06/08/25 04:42
Absolute Lymphs (auto) 1.3 10^3/uL (1.2-3.4) 06/08/25 04:42
Absolute Monos (auto) 0.8 10^3/uL (0.1-0.6) H 06/08/25 04:42
Absolute Basos (auto) 0.0 10^3/uL (0-0.2) 06/08/25 04:42
Total Counted 100 06/09/25 05:45
Immature Gran % 0.4 % (0-0.5) 06/08/25 04:42
Neutrophils % 80.6 % (42.2-75.2) H 06/08/25 04:42
Lymphocytes % 11.1 % (20.5-51.1) L 06/08/25 04:42
Monocytes % 7.1 % (1.7-9.3) 06/08/25 04:42
Eosinophils % 0.4 % (0-6) 06/08/25 04:42
Basophils % 0.4 % (0-2) 06/08/25 04:42
Abs Neuts (Manual) 3.0 10^3/uL (1.4-6.5) 06/09/25 05:45
Segmented Neutrophils 29 % (42-75) L 06/09/25 05:45
Band Neutrophils 30 % (0-3) H 06/09/25 05:45
Lymphocytes (Manual) 25 % (20-51) 06/09/25 05:45
PT 17.4 Sec (11.4-14.6) H 06/09/25 00:01
INR 1.40 06/09/25 00:01
Lactic Acid 0.9 mmol/L (0.7-2.0) 06/09/25 00:01
C-Reactive Protein > 270.00 mg/L (0.0-10.00) H 06/11/25 03:22
Procalcitonin 0.13 ng/ml (0.0-0.25) 06/06/25 06:43
Microbiology Results
Micro:
06/11/25 09:27 Blood Culture - Pending
Blood/Venous
06/11/25 09:59 Blood Culture - Pending
Blood/Venous
06/06/25 07:57 MRSA Screen - Final
Nose No Methicillin Resistant Staphylococcus aureus isolated.
06/10 CXR: Stable CHF and bibasilar atelectasis and/or pneumonia.
06/08/25 CXR: Diffuse marked colonic dilation. Measurement of caliber of the upper colon is slightly greater then obstruction series of June 07, 2025. Multiple air-fluid levels compatible with stasis. Moderate amount of stool within the inferior
aspect of the right colon as well as within the rectum. No gross evidence for free intraperitoneal air.
06/05/25 CT a/p: Significant gaseous distention of a large portion of the colon. This contributes to limitation of this examination, as the patient cannot be fully included on the [id number] of the CT scanner. If there can be some distal colonic
decompression, repeat scan could be considered, when hopefully the patient could be entirely included on the [id number] of the exam. No gross evidence for free intraperitoneal air. Patchy parenchymal opacity within the visualized lower lung, most
likely atelectasis. Pneumonia is a differential consideration, felt to be less likely based on morphologic appearance.
Assessment / Plan
# Purulent peritonitis
# Colonic inertia with megacolon status post ex lap, decompression, colostomy, stool leakage into the abdomen requiring washout June 08, 2025
# Septic shock on pressor
# Fever
# Bandemia
# VDRF
- 06/08/25 Exploratory laparatomy, lysis of adhesions, sigmoidectomy, decompression of right colon, abdominal washout, creation of end descending colostomy, umbilical hernia repair
- Blood cultures pending
- Discontinue ertapenem
- Start Zosyn for gram-positive, gram-negative including Pseudomonas coverage, and enterococcal coverage.
- Trend temps, vitals
- Continue ICU support
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
HFrEF
HTN
DM
Afib
HLD
Colonic Inertia / Dysmotility
Chronic opioid dependence
Advanced bilateral lower extremity venous insufficiency
Morbid obesity (BMI~43)
Care Review
Plan reviewed with: Physician (Drs. Candelaria, Rich)
Total Time Spent with Patient (in minutes): 40 min critical care time
[2025-06-11 11:06] LABS: Normal RBC Morphology Yes; Total Cells Counted 100
[2025-06-11 11:09] LABS: Urine Squamous Cell 0-2 /LPF (Few)
[2025-06-11 11:14] LABS: Urine Red Blood Cell 0-2 /HPF (0-2); Urine White Cell 0-2 /HPF (0-5)
--- NOTE | 2025-06-11 12:15 | W.PN.HOSP.TC ---
Today's Communication/Plan
-
ID consult.
Started zosyn.
Assessment / Plan
Assessment / Plan
Impression:
Mr. Knapp is a 64-year-old male with medical history of HFpEF, A-fib/flutter, IDDM, obesity, chronic pain with subsequent opioid dependence, and chronic constipation with colonic dysmotility who presented with shortness of breath, abdominal
bloating and discomfort, constipation. His last bowel movement was 2 weeks prior to arrival. He is having increasing difficulty breathing due to worsening abdominal distention. He has had multiple similar episodes since September 2024 and has
previously required decompression. He has been treated with enemas and neostigmine previously. Abdominal imaging showed significant colonic distention with air-filled loops of bowel. He also had patchy parenchymal opacities within the mid to
lower lungs. He was mildly hypoxic and has been started on antibiotics. He has remained afebrile with a mild leukocytosis of just over 12,000. He has been admitted for further evaluation and management.
Seen by GI, failed neostigmine, enema, status post nonsuccessful decompressive flexible sigmoidoscopy.
Surgery team consulted.
s/p Exploratory laparotomy, lysis of adhesions, sigmoidectomy, decompression of right colon, abdominal washout, creation of end descending colostomy, umbilical hernia repair on 06/08
admitted to ICU postoperatively, intubated.
Patient had fever,Infectious disease consult, started on zosyn.
Assessment/Plan:
Colonic dysmotility/ileus:
- Abdomen remains significantly distended despite multiple medical classes enemas and subsequent bowel movements
- Upgraded to IMU today, pushed 4 mg neostigmine around 1:30 PM, awaiting peristaltic response
- GI following, appreciate guidance, may need to involve colorectal surgical team if no improvement
- Clear liquid diet for now
- Continue home Linzess
- If medical therapy fails he may need to have an elective sigmoidectomy considering multiple similar recurrences, holding home Xarelto pending any needed surgical interventions, last dose evening of 06/06
06/08
status post nonsuccessful decompressive flexible sigmoidoscopy
Surgery team consulted
Possible OR today
Discussed with patient and at [facility].
06/09
S/P Exploratory laparotomy, lysis of adhesions, sigmoidectomy, decompression of right colon, abdominal washout, creation of end descending colostomy, umbilical hernia repair.
06/10
still in the ICU postoperatively, intubated.
Septic shock, requiring pressors.
Patient also had a run of fever.
Was empirically given Invanz.
Infectious disease consult, started on zosyn.
Acute hypoxic respiratory failure (currently intubated in the ICU postoperatively)
Continue mechanical ventilation
paroxismal A-fib/flutter:
- Currently rate controlled, continue home metoprolol and amiodarone
- Holding home Xarelto .
IDDM:
- Lantus
- ISS
- Monitor Accu-Cheks and adjust regimen as needed
HFpEF:
- Chronic, currently compensated
- Continue beta-blockade with home metoprolol succinate 100 mg at night
- Holding home Lasix , spironolactone, monitor daily weights
- No need for afterload reduction due to borderline hypotension
CODE STATUS: Full code
DVT prophylaxis: hold Xarelto
Diet: NPO
Family communication: Discussed with at bedside 06/08.
Disposition: Continue management in the ICU.
Total time spent on today's encounter was 75 minutes which included time spent in counseling the patient/family regarding diagnosis and treatment plan as listed above, goals of care, and symptom management. Case was discussed with nursing staff,
specialists, and care coordinators/case management. All labs and imaging personally reviewed by me. Remainder the time spent in detailed review of previous records, lab data, imaging, and other medical provider documentation.
Anticipated Discharge: > 48 hours
Subjective/Interval History
-
Date of Service: June 11, 2025
Patient remains intubated in ICU, had fever today
Objective Data
-
Labs:
Laboratory Results
06/11/25 06/11/25 06/11/25
03:22 03:23 09:59
WBC 8.7 7.7
Hgb 9.1 L D 9.6 L
Hct 28.4 L 31.3 L
Plt Count 152 D 138
HCO3 31.2 H
Sodium 138
Potassium 4.4
Chloride 105
Carbon Dioxide 29
BUN 21 H
Creatinine 0.6 L
Glucose 156 H
Calcium 8.1 L
Total Bilirubin
AST
ALT
Alkaline Phosphatase
06/11/25
11:56
WBC
Hgb
Hct
Plt Count
HCO3
Sodium Pending
Potassium Pending
Chloride Pending
Carbon Dioxide Pending
BUN Pending
Creatinine Pending
Glucose Pending
Calcium Pending
Total Bilirubin Pending
AST Pending
ALT Pending
Alkaline Phosphatase Pending
Vital Signs:
Vital Signs
Temp Pulse Resp BP Pulse Ox
101.2 F H 70 21 115/51 94
06/11/25 11:07 06/11/25 09:30 06/11/25 09:30 06/10/25 21:35 06/11/25 11:11
I&O
06/10/25 06/11/25 06/12/25
06:59 06:59 06:59
Intake Total 6145.3 / 6360.7 4512.7 / 4696.0 921.8 / 921.8
Output Total 4740 / 4740 3875 / 3955 310 / 310
Balance 1405.3 / 1620.7 637.7 / 741.0 611.8 / 611.8
Physical Exam
-
General: Intubated and Obese
HEENT: Normocephalic, Atraumatic, Moist Mucous Membranes, No Ptosis, PERRLA and Nose Appears Normal
Respiratory: Rales, Rhonchi and Non Labored Respirations
Cardiac: Regular Rhythm and S1/S2
Breast: Deferred by me
GI: Other (Colostomy bag, midline incision clean)
Musculoskeletal: No Clubbing and No Cyanosis
Skin: Warm
Neuro: Sedated
Psych: Other (Sedated)
Data Reviewed
-
Diagnostic Radiology: Image personally visualized and interpreted and Report Reviewed by me
CT Scan: Image personally visualized and interpreted and Report Reviewed by me
Ultrasound: Image personally visualized and interpreted and Report Reviewed by me
MRI: Image personally visualized and interpreted and Report Reviewed by me
Medical Tests (Nuc Med, Echo etc): Image personally visualized and interpreted and Report Reviewed by me
Labs: Labs Reviewed by me
Old Records: Reviewed
[2025-06-11] MEDS: RELISTOR 12 MG SC (12:17)
[2025-06-11 12:18] LABS: Glucose - Point of Care 156 mg/dl (70-99)
[2025-06-11] MEDS: ZOSYN 100 IV ×3 (12:21→23:17)
[2025-06-11] MEDS: PRECEDEX 100 IV ×3 (12:23→22:16)
[2025-06-11 12:40] LABS: ALT (SGPT) < 10 U/L (0-50); AST (SGOT) 34 U/L (17-59); Albumin 2.4 g/dl (3.5-5.0); Alkaline Phosphatase 66 U/L (38-126); Blood Urea Nitrogen 21 mg/dl (9-20); Calcium 8.1 mg/dl (8.4-10.2); Carbon Dioxide 32 mmol/L (22-30); Chloride 105 mmol/L (98-107); Estimated Creatinine Clearance > 125 ml/min; Glucose 153 mg/dl (70-99); Magnesium 2.0 mg/dl (1.6-2.3); Potassium 4.3 mmol/L (3.5-5.1); Sodium 139 mmol/L (135-145); Total Protein 4.8 g/dl (6.3-8.2); Triglycerides 146 mg/dl (10-149); eGFR > 60.00
--- NOTE | 2025-06-11 12:43 | PN.CDI ---
CDI
- -
CDI:
Physician Documentation Request
Admit Date: 06/06/25 02:11
Dear Doctor ,
Please review the following and provide your response in the progress notes.
Clinical Indicators:
Pt admitted with Colonic Dysmotility/megacolon s/p exp lap /sigmoidectomy and colostomy creation on 06/08
Residential Nurse note 06/11,' Anemia: Blood loss.Stable Follow Will transfuse as needed...'
ESBL 100 ml
Trended Hemoglobin/Hematocrits below
06/09/25 06/10/25 06/11/25
05:45 04:19 03:22
Hgb 12.9 L 11.4 L 9.1 L D
Hct 40.3 36.3 L 28.4 L
06/11/25
09:59
Hgb 9.6 L
Hct 31.3 L
Based on the above, could you clarify, in your progress note, which of the following is the most likely type of anemia you are evaluating, monitoring and/or treating?
Acute blood loss anemia
Anemia only
Other ( please specify)
Use of terms such as suspected, likely, concern for, or probable (associated with a specific diagnosis that is being evaluated, monitored, or treated as if it exists) are acceptable and can be coded in the inpatient setting, when documented at the
time of discharge.
Thank you,
Alia Banerjee RN
CDI Specialist
[place] [facility]
Please use your independent medical judgment in providing your response.
--- NOTE | 2025-06-11 13:41 | W.PN.UPDATE ---
Update Note
Progress Note Update
CDI:
Anemia suspected from acute blood loss.
--- NOTE | 2025-06-11 16:01 | WOUNDNOTE ---
L CALF (LATERAL POSTERIOR)
--- NOTE | 2025-06-11 16:01 | WOUNDNOTE ---
L 5TH TOE
--- NOTE | 2025-06-11 16:17 | WOUNDNOTE ---
WOC RN Note: Patient's stoma pink and functioning for large loose brown stool. He has a serous blister distal to stoma. Silicone border foam applied to blister during colostomy appliance change. Instructed how to empty and change pouch using
[place] wafer # [id number], [place] seal and [place] pouch #[id number]. LLE dressing changed. LE edema down. Red/purple petechia noted on dorsal feet (more notable than Sunday). Confirmed with Dr. Pierre can discontinue the АННА order, knee high Yonatan wraps
while out of bed, continue knee high SCD order. Discussed with AUTOMATIC SILK SCREEN PRINTER Hien. Patient turned to L semi side lying position with help from LAWRENCE Stanford and ANITA Bethea. Sacral skin intact. Protective sacral shaped silicone border foam applied. Heels off bed
with pillows. Patient is on a bariatric Total care sport bed.
[2025-06-11 17:20] LABS: Glucose - Point of Care 146 mg/dl (70-99)
[2025-06-11] MEDS: LOVENOX 40 MG SC (17:42)
--- NOTE | 2025-06-11 18:30 | PTCARENOTE ---
7A-7P Shift Note:
1. Ongoing fever, sent blood and urine cultures. ID consulted, switched abx to Zosyn.
2. Sedation vacation performed, arousable to loud voice, can open eyes, moving arms; Got tachypneic on the vent, respirations in high 20s with more abdomen breathing. Added Precedex drip, titrated off propofol drip in PM, attempted to wean down
Fentanyl drip. PLAN to wean off ventilator tmr.
3. Titrated off vasopressin and Levophed.
4. Initiate TPN this evening.
5. at bedside in PM, updates given, all questions answered.
[2025-06-11] MEDS: SUBLIMAZE 50 MCG IV (18:46)
[2025-06-11 19:50] VITALS: BP 117/59
[2025-06-11 20:00] VITALS: BP 110/58
[2025-06-11] MEDS: Parenteral Nutrition, Central 1180 IV (20:56)
--- NOTE | 2025-06-11 21:40 | PTCARENOTE ---
Pt received intubated and sedated. Tolerating current vent settings. Remains on fentanyl and precedex for sedation. Started on TPN this evening. Mason draining adequate amts jack urine. Colostomy putting out large amts brown liquid stool. Jason
draining serosanguinous drainage. L radial a-line calibrated and flushed and is compatible with non invasive cuff. Assessment as charted.
[2025-06-11] MEDS: LIPITOR 40 MG TUBE (22:03)
[2025-06-11] MEDS: PACERONE 200 MG TUBE (22:03)
[2025-06-11] MEDS: LANTUS 0.1 UNITS SC (23:18)
[2025-06-11 23:20] LABS: Blood Urea Nitrogen 22 mg/dl (9-20); Calcium 8.4 mg/dl (8.4-10.2); Carbon Dioxide 33 mmol/L (22-30); Chloride 107 mmol/L (98-107); Estimated Creatinine Clearance > 125 ml/min; Glucose 173 mg/dl (70-99); Potassium 4.2 mmol/L (3.5-5.1); Sodium 140 mmol/L (135-145); eGFR > 60.00
[2025-06-11 23:29] LABS: Glucose - Point of Care 167 mg/dl (70-99)
[2025-06-12] VITALS: BP 128/71
--- NOTE | 2025-06-12 00:02 | PTCARENOTE ---
Colostomy continues to put out large amt liquid brown stool. Chemistry drawn and sent to lab. Continues with fever. Ofirmev given as ordered. Cool cloths and ice placed on pt. Will continue to monitor closely.
[2025-06-12] MEDS: SUBLIMAZE 50 MCG IV ×3 (00:42→13:13)
[2025-06-12] MEDS: ATIVAN 1 MG IV (01:22)
[2025-06-12] MEDS: NSS (PRESERVATIVE FREE) 0.5 ML IV (01:22)
[2025-06-12] MEDS: SUBLIMAZE 100 IV ×4 (01:29→19:47)
--- NOTE | 2025-06-12 01:39 | PTCARENOTE ---
Pt became extremely agitated, biting on ETT, attempting to pull at lines. Pt did manage to pull off ostomy appliance. Fentanyl and precedex increased for agitation after fentanyl bolus given without improvement. Pt continued to be extremely agitated
so pt med with ativan 1mg IV. Pt now resting comfortably. Complete CHG bath given and linen change done.
[2025-06-12] MEDS: PRECEDEX 100 IV ×5 (01:44→12:01)
[2025-06-12 04:00] VITALS: BP 133/76
[2025-06-12 04:08] LABS: Hematocrit 31.6 % (39.0-52.0); Hemoglobin 9.7 g/dL (13.0-18.0); Mean Corp Hgb Conc. 30.7 g/dL (33.0-37.0); Mean Corpuscular Volume 85.2 fL (80.0-94.0); Platelet Count 114 10^3/uL (130-400); Red Cell Dist. Width 14.5 % (11.5-14.5)
[2025-06-12 04:09] VITALS: BMI 41.8
[2025-06-12 04:14] LABS: B.E. 3.5 mmol/L; HCO3 29.1 mmol/L (21-28); O2 Saturation % 97.2 % (94-98); PCO2 48 mmHg (35-48); PO2 71 mmHg (83-108)
[2025-06-12] MEDS: NSS 1000 IV (04:14)
[2025-06-12 04:15] LABS: O2 Therapy VENT
[2025-06-12 04:30] LABS: ALT (SGPT) < 10 U/L (0-50); AST (SGOT) 33 U/L (17-59); Albumin 2.3 g/dl (3.5-5.0); Alkaline Phosphatase 65 U/L (38-126); Blood Urea Nitrogen 21 mg/dl (9-20); Calcium 8.0 mg/dl (8.4-10.2); Carbon Dioxide 33 mmol/L (22-30); Chloride 108 mmol/L (98-107); Estimated Creatinine Clearance > 125 ml/min; Glucose 214 mg/dl (70-99); Magnesium 2.0 mg/dl (1.6-2.3); Potassium 4.2 mmol/L (3.5-5.1); Sodium 142 mmol/L (135-145); Total Protein 4.7 g/dl (6.3-8.2); eGFR > 60.00
[2025-06-12 05:18] LABS: Glucose - Point of Care 247 mg/dl (70-99)
[2025-06-12] MEDS: NOVOLOG FLEXPEN-MODERATE RESISTANCE 3 UNITS SC (05:23)
[2025-06-12] MEDS: ZOSYN 100 IV ×3 (05:23→17:38)
--- NOTE | 2025-06-12 05:26 | PTCARENOTE ---
No change in assessment. Pt remains on precedex and fentanyl. Remains febrile despite ofirmev and cool cloths.
[2025-06-12] MEDS: OFIRMEV 100 IV (05:56)
[2025-06-12] MEDS: FLEXBUMIN 100 IV (06:24)
--- NOTE | 2025-06-12 07:30 | PTCARENOTE ---
Received patient ET to vent @FiO2 50%, sedated with Precedex @1mcg/kg/hr and Fentanyl @175mcg/hr, B/L wrist restraints, SB in high 50s, BP within goal range, Colostomy in LLQ, RLQ CHRISTINE drain, OGT to LIS with no output, Midline Abdomen surgical site
CDI, Mason in place draining adequate UOP.
--- NOTE | 2025-06-12 07:59 | W.PN.CRS1 ---
Addendum entered and electronically signed by Corine Mcduffie PA-C 06/12/25 15:05:
I updated his , Bernie, via phone.
Original Note:
Today's Communication / Plan
-
as below
Assessment/Plan
-
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
obstipation associated with megacolon. WBC 11.[address] showing gaseous distention of the colon, diameter of the sigmoid up to 18 cm in diameter. He received a dose of neostigmine, which failed. He underwent attempt at decompressive sigmoidoscopy,
but encountered too much stool. Due to refractory nature of his issue, we proceeded with surgery.
POD 4 exlap, sigmoidectomy, end-colostomy; iatrogenic spillage of stool - controlled and abdomen washed out, no colonic ischemia or perforation
Tmax 102.9, VSS
WBC 8.2 from 8.7, Hb 9.7 from 9.1, CR 0.8; prealbumin low
�Critically ill, initially likely to poor compensation s/p general anesthesia and dehydration; possible abdominal sepsis, but having ostomy functioning and abdominal drainage serosanguineous; gradually improving but still spiking fevers
�I would recommend against CTAP right now as his abdominal exam is improving and he is having bowel function
�Continue pain control and sedation
�Wean vent as tolerated; appreciate ICU
� Maintain MAP greater than 65
� Okay for hepgtt
� Continue n.p.o. with OGT; cont TPN
� Appreciate ID, on zosyn
� Continue Mason, strict I&O's; continue IVF at 125
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
Subjective Data
Procedure
06/08/25- Exploratory laparotomy, lysis of adhesions, sigmoidectomy, decompression of right colon, abdominal washout, creation of end descending colostomy, umbilical hernia repair
Subjective Data
Date of Service: June 12, 2025
Still spiking fevers, up to 103. Remains intubated/sedated. Overbreathing the vent, switched to precedex. Not awake with verbal or painful stimuli.
Pressors are off.
Ostomy is functioning with copious stool and gas in the bag.
Objective Data
-
Vital Signs
Temp Pulse Resp BP Pulse Ox
103.2 F H 60 23 133/76 95
06/12/25 07:36 06/12/25 06:00 06/12/25 06:00 06/12/25 04:00 06/12/25 07:42
Intake & Output
06/11/25 06/12/25 06/13/25
06:59 06:59 06:59
Intake Total 4512.7 / 4696.0 4695.0 / 4695.0
Output Total 3875 / 3955 4815 / 4815
Balance 637.7 / 741.0 -120.0 / -120.0
Intake:
IV fluids (Total) 4422.7 / 4606.0 3554.0 / 3554.0
Diprivan gtt 492.2 / 515.2 151.8 / 151.8
Double concentrated Levophed 342.0 / 353.3 62.1 / 62.1
Fentanyl gtt 372.5 / 387.5 367.5 / 367.5
Nss 1,000 ml @ 70 mls/hr IV . 3000 / 3125 2450 / 2450
[id number] JASBIR Rx#:[id number]
Precedex 450.6 / 450.6
Vasopressin gtt 216 / 225 72 / 72
IV piggybacks 700 / 700
TPN/PPN 441 / 441
Amount instilled into GI Tube ( 90 /
Total)
[place] Sump 90 / 90
Output:
Liquid stool amount 675 / 675 2540 / 2540
Colostomy 675 / 2540 / 2540
Drain Output (Total) 245 / 245 180 / 180
Right Lower Abdomen [place]- 245 / 245 180 / 180
Vo
Gastrointestinal tube output (
Total)
[place] Sump /
Urine, Mason 2885 / 2965 2094 / 2094
Lab Results
06/12/25 03:57
06/12/25 03:57
Physical Exam
-
General: No Acute Distress and Other (sedated)
HEENT: Grossly Normal
Abdomen: Soft, Distended (mildly distended, much improved), Tender (appropriately tender), No Guarding, No Rebound and Other (ostomy pink, CHRISTINE- serosang; midline incision without erythema or purulence drainage; telfa edward removed)
Skin: Warm and Dry
Wound: No Signs of Infection and Dressing in Place
[2025-06-12 08:01] VITALS: BP 129/73
[2025-06-12] MEDS: CALDOLOR 156 MG IV (08:06)
--- NOTE | 2025-06-12 08:44 | W.PN.ID1 ---
Date of Service
Date of Service: June 12, 2025
Today's Communication
Add micafungin to Zosyn.
Assessment / Plan
# Purulent peritonitis
# Colonic inertia with megacolon status post ex lap, decompression, colostomy, stool leakage into the abdomen requiring washout June 08, 2025
# Septic shock on 1 pressor
# Fever, persists
# Bandemia
# VDRF
- 06/08/25 Exploratory laparotomy, lysis of adhesions, sigmoidectomy, decompression of right colon, abdominal washout, creation of end descending colostomy, umbilical hernia repair
- Blood cultures pending
- Continue Zosyn (d2)
- Add empiric micafungin for fungal coverage.
- Trend temps, vitals
- Continue ICU support
Pt remains critically ill.
# Conditions SOUND EFFECTS MANAGER
HFrEF
HTN
DM
Afib
HLD
Colonic Inertia / Dysmotility
Chronic opioid dependence
Advanced bilateral lower extremity venous insufficiency
Morbid obesity (BMI~43)
Chief Complaint
-: Clinical Sepsis
Subjective / Review of Systems
Remains on vent.
Vital Signs / Physical Exam
Vital Signs
Vital Signs
Temp Pulse Resp BP Pulse Ox
103.2 F H 60 23 133/76 95
06/12/25 07:36 06/12/25 06:00 06/12/25 06:00 06/12/25 04:00 06/12/25 07:42
Physical Exam
Constitutional: Acutely Ill and Obese
Cardiovascular: Regular Rate and S1/S2
Gastrointestinal: Soft, Non Distended, Decreased Bowel Sounds and Other (ostomy loose stools; CHRISTINE serosanguinous)
Genito-Urinary: Clear Urine
Extremities: Venous Insufficiency
Objective Data
Lab Data
Lab Results
06/12/25 03:57
06/12/25 03:57
PT 17.4 Sec (11.4-14.6) H 06/09/25 00:01
INR 1.40 06/09/25 00:01
APTT 30.2 Sec (23.4-35.0) 06/09/25 00:01
Estimated Creat Clear > 125 ml/min 06/12/25 03:57
Lactic Acid 0.9 mmol/L (0.7-2.0) 06/09/25 00:01
Total Bilirubin 0.5 mg/dl (0.2-1.3) 06/12/25 03:57
AST 33 U/L (17-59) 06/12/25 03:57
ALT < 10 U/L (0-50) 06/12/25 03:57
Alkaline Phosphatase 65 U/L (38-126) 06/12/25 03:57
C-Reactive Protein > 270.00 mg/L (0.0-10.00) H 06/11/25 03:22
Most recent labs reviewed.
Micro Results:
06/11/25 09:27 Blood Culture - Pending
Blood/Venous
06/11/25 09:59 Blood Culture - Pending
Blood/Venous
06/06/25 07:57 MRSA Screen - Final
Nose No Methicillin Resistant Staphylococcus aureus isolated.
06/10 CXR: Stable CHF and bibasilar atelectasis and/or pneumonia.
06/08/25 CXR: Diffuse marked colonic dilation. Measurement of caliber of the upper colon is slightly greater then obstruction series of June 07, 2025. Multiple air-fluid levels compatible with stasis. Moderate amount of stool within the inferior
aspect of the right colon as well as within the rectum. No gross evidence for free intraperitoneal air.
06/05/25 CT a/p: Significant gaseous distention of a large portion of the colon. This contributes to limitation of this examination, as the patient cannot be fully included on the oebjj-qa-corr of the CT scanner. If there can be some distal colonic
decompression, repeat scan could be considered, when hopefully the patient could be entirely included on the kiblr-gp-[id number] of the exam. No gross evidence for free intraperitoneal air. Patchy parenchymal opacity within the visualized lower lung, most
likely atelectasis. Pneumonia is a differential consideration, felt to be less likely based on morphologic appearance.
[2025-06-12] MEDS: SUBUTEX 4 MG SL (09:00)
[2025-06-12] MEDS: SOLU-CORTEF 50 MG IV (09:00)
[2025-06-12] MEDS: HYDROPHOR 1 APPLIC TOPICAL (09:00)
--- NOTE | 2025-06-12 09:00 | SUR.PHASEI ---
Initiated cooling blanket for ongoing fever. Unable to insert rectal thermometer probe, Exchanged Mason with Temperature sensing.
[2025-06-12] MEDS: NSS (PRESERVATIVE FREE) 10 ML IV (09:19)
[2025-06-12] MEDS: PROTONIX IV 40 MG IV (09:20)
--- NOTE | 2025-06-12 11:09 | WOUNDNOTE ---
WOC RN note: Patient's pouch leakage from wafer connection d/t large stool output a per nursing. No leakage under wafer. Changed appliance using Desiree wafer # [id number], Almas seal and Desiree pouch # [id number]. Silicone border foam applied to linear
adhesive skin tear and serous blister distal to stoma for protection from wafer adhesive. Requested change in wound care from Dr. Villanueva who approved change in leg wound care. Drainage is less from LLE. Tubigrip being used. Care plan and discharge
instructions updated. Next wafer change due on Sunday.
--- NOTE | 2025-06-12 11:27 | W.PN.INTV ---
Today's Communication / Plan
Recommendations
DC IV fluid patient on TPN
Insulin drip
Antibiotics Zosyn/micafungin
Follow fever curve
Start Seroquel and Haldol as needed suspect some delirium
Continue Precedex
Continue fentanyl drip
Discontinue hydrocortisone IV
Monitor for volume overload
Not ready for spontaneous breathing trial: Delirium, persistently febrile. Hopefully in the next 24 hours
Assessment
-
Assessment: 64-year-old male with a past medical history of cardiomyopathy, hypertension, DM type II, history of chronic opioid use due to chronic arthritis now on buprenorphine, history of ERASMO, venous insufficiency and chronic back pain who
presented with shortness of breath, abdominal distention. Found to have severe colonic distention. Initially treated with neostigmine, attempted sigmoidoscopy without attempt. Underwent exploratory laparotomy 06/08/2025-developed shock requiring
vasopressors and remained on mechanical ventilation. We were consulted on 06/09/2025.
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
OxyContin/oxycodone,systolic cardiomyopathy.
Impression:
Acute hypoxemic respiratory failure post surgery: Due to abdominal distention requiring intubation mechanical ventilation
Septic shock suspected-source likely intraperitoneal
Status post laparotomy:Exploratory laparotomy, lysis of adhesions, sigmoidectomy, decompression of right colon, abdominal washout, creation of end descending colostomy, umbilical hernia repair-06/08/2025
--
# Colonic dysmotility
#Atrial flutter
#Chronic HFrEF with right ventricular systolic dysfunction
#Valvular heart disease with mild as moderate MR and mild as moderate TR
#Morbid obesity
#DM type II
#Venous deficiency
#History of ERASMO
#Chronic pain management due to arthritis currently on buprenorphine in an effort to calm off of OxyContin/oxycodone
Plan:
-
Patient is critically ill: Intubated on mechanical ventilation and shock requiring vasopressors.
-
Mechanical ventilation settings reviewed:
ABG 06/12/2025: 7.39/48/71
FiO2 is 40%.
Pulmonary mechanics adequate-peak pressures 20.
ET tube without secretions
Pulmonary mechanics continue to be acceptable.
Chest x-ray with bibasilar atelectasis.
ABG with adequate oxygenation and ventilation
ET tube without secretions
No evidence for bronchospasm
Continue mechanical ventilation without change
-
Unfortunately patient has developed agitation with sedation breaks. Suspect some degree of delirium
Start antipsychotics today 06/12/2025.
Continue Precedex-patient is bradycardic but hemodynamically improved. Continue for now.
Continue fentanyl drip and boluses as needed
Goal is RASS score 0/-1
-
Hold off on a spontaneous breathing trial-patient persistently febrile.
-
Septic shock: Suspect intra-abdominal source-possible peritonitis postsurgically-washout was performed.
Vasopressors discontinued since 06/11/2025-PM.
Normal renal function with adequate urinary
-
Status post laparotomy for significant abdominal distention as above.
NG tube in place-output has significantly decreased
Now colostomy with good output
Abdomen continues to be distended
Surgical incision remains intact
Follow surgical recommendations
-
Remains febrile without leukocytosis.
Transition to Zosyn 06/11/2025 per infectious disease
Given persistent fevers micafungin added 06/12/2025
If persistently febrile repeat imaging of the abdomen may be necessary
Obtain blood cultures-pending
Urinalysis without evidence for infection
Infectious disease following.
Surgery also is following-no need for repeat imaging for now.
-
Heart failure with reduced ejection fraction/atrial flutter
Echocardiogram reviewed 04/28/2025: Ejection fraction 35%. Global hypokinesis. Mild LVH. Stage I diastolic dysfunction. Mildly dilated right ventricle. Mild aortic stenosis. Mild TR. Estimated pulmonary artery pressure 50 to 55 mmHg.
Follow respiratory status with history of heart failure. At risk for volume overload. Not present at this point.
Mason in place urinary output will be measured hourly
Chest x-ray post intubation noted: Left lower lobe abnormality suspect atelectasis
Patient not behaving like he has pneumonia
Holding diuresis-will continue to reassess for timing to restart. So far pulmonary mechanics do not suggest significant volume overload.
Oral medications restarted 06/12/2025.
Amiodarone restarted.
NG tube remains in place.
-
N.p.o.
DC IV fluids-patient on TPN.
Daily labs follow electrolytes.
Head of elevation
Maintain PICC line.
-
Hyperglycemia: Insulin drip started 06/12/2025.
Patient now on TPN
-
Anemia: Blood loss.
Stable
Follow
Will transfuse as needed
-
DVT prophylaxis: -On Lovenox subcu.
If remains stable without anemia or bleeding then start heparin drip without a bolus tomorrow 06/13/2025.
-
Prognosis is guarded
-
Critical care statement: A total of 40 minutes of critical care time was provided for this patient today. This includes management of unstable vital signs, evaluation of the patient at bedside, reviewing the patient's pertinent medical records
including ventilator settings, arterial blood gases, radiographs, microbiology, laboratory evaluations and discussion with primary team, critical care nursing, and respiratory therapy.

Data reviewed:
Chest x-ray 06/08/2025: Reviewed, ET tube in place. Left lower lobe airspace disease. Cardiomegaly
-
CT abdomen pelvis 06/05/2025:
The patient is significantly distended, and much of the abdominal and upper pelvic soft tissues extending anterior and to the left of the [id number], which limits evaluation, as it becomes difficult to confidently follow the loops of bowel.
There is distention of the rectum with air and stool, measuring 9.3 cm in diameter. There is marked distention of the sigmoid colon which extends into the right and central upper abdomen, with the sigmoid colon measuring up to 18 cm in diameter. The
sigmoid colon contains a moderate to large amount of stool, mainly inferiorly. There appears to be moderate distention of the rest of the visualized colon.
Small bowel loops are present, and do not appear to be significantly distended, similar appearance to prior examination.
Of note, the cecum cannot be confidently identified on the present examination
No gross evidence of free intraperitoneal air.
There is patchy parenchymal opacity within the visualized lower lungs, most likely atelectasis. A component of pneumonia is also possible, although felt to be less likely. There is no significant pleural effusion and no significant pericardial
effusion.
Coronary artery calcifications are present. Please correlate with symptoms of and risk factors for coronary artery disease, with further workup as clinically appropriate.
Of note, the stomach is not distended.
Subjective Dataa
Subjective Data
Date of Service:
Date of Service: June 12, 2025
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
Subjective:
Remains critically ill, febrile on mechanical ventilation
Agitation with sedation breaks
Review of Systems
General: Unobtainable - Sedation
Objective Data
Data Reviewed
Vital Signs / I&O / Oxygen:
Vital Signs
Temp Pulse Resp BP Pulse Ox
103.2 F H 58 22 129/73 95
06/12/25 07:36 06/12/25 10:00 06/12/25 10:00 06/12/25 08:01 06/12/25 11:19
Intake and Output
06/11/25 06/12/2506/13/25
06:59 06:59 06:59
Intake Total 4512.7 / 4696.0 4785.0 / 4960.3 1054.7 / 1054.7
Output Total 3875 / 3955 4815 / 4895 450 / 450
Balance 637.7 / 741.0 -30.0 / 65.3 604.7 / 604.7
SaO2 [A/C] 92
SaO2 95
Nasal Cannula flow liters per 3
minute
Physical Exam
General: Comfortable
HEENT: Normocephalic
Cardiovascular: S1-S2
Respiratory: Clear and ET Tube
GI: Soft, Distended, Other (Colostomy with stool output.) and Other (NG tube in place minimal drainage)
Neurology: Other (Currently sedated. With sedation breaks with increased work of breathing, moving 4 extremities. Agitated) and Other (Agitated with sedation)
Skin: Warm and Other ( lower extremity venous stasis, both extremities are wrapped.)
Labs/Micro/Reports
Lab Data
06/12/25 03:57
06/12/25 03:57
Laboratory Results
06/12/25
03:57
pH 7.39
pCO2 48
pO2 71 L
HCO3 29.1 H
O2 Delivery Level Vent
Microbiology
06/11/25 09:27 Blood/Venous Blood Culture - Preliminary
No Growth in 24 hours- Final report to follow
06/11/25 09:59 Blood/Venous Blood Culture - Preliminary
No Growth in 24 hours- Final report to follow
[2025-06-12] MEDS: MYCAMINE 105 MG IV (11:35)
[2025-06-12] MEDS: NOVOLIN R 4 UNITS IV (11:49)
[2025-06-12] MEDS: NOVOLIN R INSULIN INFUSION 100 IV (11:50)
[2025-06-12 11:55] LABS: Glucose - Point of Care 229 mg/dl (70-99)
[2025-06-12] MEDS: SEROQUEL 25 MG TUBE (12:02)
--- NOTE | 2025-06-12 12:12 | W.PN.HOSP.TC ---
Today's Communication/Plan
-
Added micafungin.
Continue management in the ICU.
Assessment / Plan
Assessment / Plan
Impression:
Mr. Knapp is a 64-year-old male with medical history of HFpEF, A-fib/flutter, IDDM, obesity, chronic pain with subsequent opioid dependence, and chronic constipation with colonic dysmotility who presented with shortness of breath, abdominal
bloating and discomfort, constipation. His last bowel movement was 2 weeks prior to arrival. He is having increasing difficulty breathing due to worsening abdominal distention. He has had multiple similar episodes since September 2024 and has
previously required decompression. He has been treated with enemas and neostigmine previously. Abdominal imaging showed significant colonic distention with air-filled loops of bowel. He also had patchy parenchymal opacities within the mid to
lower lungs. He was mildly hypoxic and has been started on antibiotics. He has remained afebrile with a mild leukocytosis of just over 12,000. He has been admitted for further evaluation and management.
Seen by GI, failed neostigmine, enema, status post nonsuccessful decompressive flexible sigmoidoscopy.
Surgery team consulted.
s/p Exploratory laparotomy, lysis of adhesions, sigmoidectomy, decompression of right colon, abdominal washout, creation of end descending colostomy, umbilical hernia repair on 06/08
admitted to ICU postoperatively, intubated.
Patient had fever,Infectious disease consult, started on zosyn.
Patient was still running fever, added micafungin.
Assessment/Plan:
Colonic dysmotility/ileus:
- Abdomen remains significantly distended despite multiple medical classes enemas and subsequent bowel movements
- Upgraded to IMU today, pushed 4 mg neostigmine around 1:30 PM, awaiting peristaltic response
- GI following, appreciate guidance, may need to involve colorectal surgical team if no improvement
- Clear liquid diet for now
- Continue home Linzess
- If medical therapy fails he may need to have an elective sigmoidectomy considering multiple similar recurrences, holding home Xarelto pending any needed surgical interventions, last dose evening of 06/06
06/08
status post nonsuccessful decompressive flexible sigmoidoscopy
Surgery team consulted
Possible OR today
Discussed with patient and at [facility].
06/09
S/P Exploratory laparotomy, lysis of adhesions, sigmoidectomy, decompression of right colon, abdominal washout, creation of end descending colostomy, umbilical hernia repair.
06/10
still in the ICU postoperatively, intubated.
Septic shock, requiring pressors.
Patient also had a run of fever.
Was empirically given Invanz.
Infectious disease consult, started on zosyn.
06/12
Patient was still running fever, added micafungin.
Acute hypoxic respiratory failure (currently intubated in the ICU postoperatively)
Continue mechanical ventilation
paroxismal A-fib/flutter:
- Currently rate controlled, continue home metoprolol and amiodarone
- Holding home Xarelto .
IDDM:
- Insulin drip.
HFpEF:
- Chronic, currently compensated
- Continue beta-blockade with home metoprolol succinate 100 mg at night
- Holding home Lasix , spironolactone, monitor daily weights
- No need for afterload reduction due to borderline hypotension
CODE STATUS: Full code
DVT prophylaxis: hold Xarelto
Diet: NPO
Family communication: Discussed with at bedside 06/08.
Disposition: Continue management in the ICU.
Total time spent on today's encounter was 75 minutes which included time spent in counseling the patient/family regarding diagnosis and treatment plan as listed above, goals of care, and symptom management. Case was discussed with nursing staff,
specialists, and care coordinators/case management. All labs and imaging personally reviewed by me. Remainder the time spent in detailed review of previous records, lab data, imaging, and other medical provider documentation.
Anticipated Discharge: > 48 hours
Subjective/Interval History
-
Date of Service: June 12, 2025
Patient remains intubated in ICU, still running fever
Objective Data
-
Labs:
Laboratory Results
06/12/25
03:57
WBC 8.2
Hgb 9.7 L
Hct 31.6 L
Plt Count 114 L
HCO3 29.1 H
Sodium 142
Potassium 4.2
Chloride 108 H
Carbon Dioxide 33 H
BUN 21 H
Creatinine 0.8
Glucose 214 H
Calcium 8.0 L
Total Bilirubin 0.5
AST 33
ALT < 10
Alkaline Phosphatase 65
Vital Signs:
Vital Signs
Temp Pulse Resp BP Pulse Ox
102.9 F H 58 22 129/73 95
06/12/25 11:00 06/12/25 10:00 06/12/25 10:00 06/12/25 08:01 06/12/25 11:19
I&O
06/11/25 06/12/25 06/13/25
06:59 06:59 06:59
Intake Total 4512.7 / 4696.0 4785.0 / 4960.3 1054.7 / 1054.7
Output Total 3875 / 3955 4815 / 4895 450 / 450
Balance 637.7 / 741.0 -30.0 / 65.3 604.7 / 604.7
Physical Exam
-
General: Intubated and Obese
HEENT: Normocephalic, Atraumatic, Moist Mucous Membranes, No Ptosis, PERRLA and Nose Appears Normal
Respiratory: Rales, Rhonchi and Non Labored Respirations
Cardiac: Regular Rhythm and S1/S2
Breast: Deferred by me
GI: Other (Colostomy bag, midline incision clean)
Musculoskeletal: No Clubbing and No Cyanosis
Skin: Warm
Neuro: Sedated
Psych: Other (Sedated)
Data Reviewed
-
Diagnostic Radiology: Image personally visualized and interpreted and Report Reviewed by me
CT Scan: Image personally visualized and interpreted and Report Reviewed by me
Ultrasound: Image personally visualized and interpreted and Report Reviewed by me
MRI: Image personally visualized and interpreted and Report Reviewed by me
Medical Tests (Nuc Med, Echo etc): Image personally visualized and interpreted and Report Reviewed by me
Labs: Labs Reviewed by me
Old Records: Reviewed
--- NOTE | 2025-06-12 12:30 | PTCARENOTE ---
Sedation vacation performed, arousable to voice, can open eyes, and squeeze hands lightly. Subsequently got tachypneic on the vent, overbreathing, RR in 40s, tachycardiac in 140s, hypertensive, notified laborer drying department and carried out orders.
[2025-06-12] MEDS: HALDOL 1 MG IV (13:07)
[2025-06-12 13:15] LABS: Glucose - Point of Care 252 mg/dl (70-99)
--- NOTE | 2025-06-12 13:24 | W.PN.UPDATE ---
Update Note
Progress Note Update
Attempted to wean down sedation-patient while on fentanyl drip and Precedex agitated, paradoxical breathing. Following commands but with increased work of breathing with heart rate in the 40s.
Not ready for spontaneous breathing trial
Hold Precedex
Restarted low-dose propofol
Antipsychotics for possible delirium also started
Suspect muscle weakness and respiratory mechanics impaired by abdominal distention, deconditioning also playing a role
Will continue with daily assessments for SVT.
[2025-06-12] MEDS: DIPRIVAN 100 IV ×3 (13:45→21:49)
[2025-06-12 13:53] VITALS: PULSE 50
[2025-06-12 14:08] LABS: Glucose - Point of Care 220 mg/dl (70-99)
--- NOTE | 2025-06-12 14:11 | CM ---
Intubated, No SBT at this time, TPN, IV/Micafungin. Discharge POC: TBD.
[2025-06-12 14:45] LABS: Triglycerides 136 mg/dl (10-149)
[2025-06-12 15:10] LABS: Glucose - Point of Care 191 mg/dl (70-99)
--- NOTE | 2025-06-12 16:14 | PTCARENOTE ---
Received pt with eyes closed.Eyes open to voice.Nods head to questions.SB noted.Left arterial line at mid axillary with good wave form.Right PICC intact with TPN,Fentanyl,Propofol and Insulin gtts.#8 ETT to vent.AC 20 500 50% +5.POX 95%Lungs
diminishes at bases.OGT intact and draining scant amount.Colostomy intact with red stoma and small amount stool noted.Mason draining yellow urine.Midline incision intact with no drainage noted.Right CHRISTINE draining small amount sero-sang drainage.Pt's
at bedside.Plan of care discussed.
[2025-06-12 16:20] LABS: Glucose - Point of Care 136 mg/dl (70-99)
[2025-06-12] MEDS: LOVENOX 40 MG SC (17:38)
[2025-06-12 17:42] LABS: Glucose - Point of Care 97 mg/dl (70-99)
--- NOTE | 2025-06-12 17:51 | PTCARENOTE ---
1720- 97.Insulin gtt stopped as per protocol.
[2025-06-12 18:31] LABS: Glucose - Point of Care 112 mg/dl (70-99)
--- NOTE | 2025-06-12 18:33 | PTCARENOTE ---
Pt more awake.Eyes open.Interactive with his .Noted to be aggressively chewing on ETT and OGT,and attempting to tingue out ETT.When questioned pt nodded yes that he was attempting to remove his breathing tube.Pt advised by RN and his spouse to
cease chewing on ETT and OGT.Bite block placed to protect integrity of OGT and ETT.Propofol titrated up to maintain ETT and OGT.
[2025-06-12 19:40] LABS: Glucose - Point of Care 163 mg/dl (70-99)
[2025-06-12] MEDS: Parenteral Nutrition, Central 1650 IV (19:56)
--- NOTE | 2025-06-12 20:00 | PTCARENOTE ---
Received pt. at 1900. Pt. currently on ventilator, sedated. No signs of pain/discomfort. Afebrile. Heart rhythm sinus. Blood pressure normotensive. Ventilator settings verified. Lungs sound coarse. Abdomen obese. Colostomy intact. Parenteral
nutrition infusing via PICC line. Mason catheter in place, draining without issue. Skin as documented. Vital signs stable at this time.
[2025-06-12 20:09] LABS: Glucose - Point of Care 163 mg/dl (70-99)
[2025-06-12 21:10] LABS: Glucose - Point of Care 170 mg/dl (70-99)
[2025-06-12] MEDS: LIPITOR 40 MG TUBE (22:33)
[2025-06-12] MEDS: SEROQUEL 50 MG TUBE (22:33)
[2025-06-12] MEDS: PACERONE 200 MG TUBE (22:33)
[2025-06-12 23:11] LABS: Glucose - Point of Care 196 mg/dl (70-99)
--- NOTE | 2025-06-13 | PTCARENOTE ---
Pt. assessment unchanged. Remains ventilated and sedated. Vital signs stable at this time.
[2025-06-13 00:06] LABS: Glucose - Point of Care 186 mg/dl (70-99)
[2025-06-13 01:16] LABS: Glucose - Point of Care 176 mg/dl (70-99)
[2025-06-13 01:30] LABS: Glucose - Point of Care 198 mg/dl (70-99)
[2025-06-13 02:08] LABS: Glucose - Point of Care 227 mg/dl (70-99)
[2025-06-13 03:12] LABS: Glucose - Point of Care 177 mg/dl (70-99)
[2025-06-13 03:53] LABS: B.E. 6.1 mmol/L; HCO3 31.2 mmol/L (21-28); O2 Saturation % 99.0 % (94-98); PCO2 47 mmHg (35-48); PO2 96 mmHg (83-108)
--- NOTE | 2025-06-13 04:00 | PTCARENOTE ---
Pt. assessment remains unchanged. AM labs drawn. Vital signs stable at this time.
[2025-06-13 04:04] LABS: Hematocrit 29.3 % (39.0-52.0); Hemoglobin 8.9 g/dL (13.0-18.0); Mean Corp Hgb Conc. 30.4 g/dL (33.0-37.0); Mean Corpuscular Volume 86.2 fL (80.0-94.0); Platelet Count 108 10^3/uL (130-400); Red Cell Dist. Width 14.7 % (11.5-14.5)
[2025-06-13] MEDS: DIPRIVAN 100 IV ×7 (04:06→21:26)
[2025-06-13 04:08] LABS: Glucose - Point of Care 203 mg/dl (70-99)
[2025-06-13 04:25] LABS: Blood Urea Nitrogen 22 mg/dl (9-20); Calcium 8.1 mg/dl (8.4-10.2); Carbon Dioxide 31 mmol/L (22-30); Chloride 111 mmol/L (98-107); Estimated Creatinine Clearance > 125 ml/min; Glucose 180 mg/dl (70-99); Magnesium 2.0 mg/dl (1.6-2.3); Potassium 3.5 mmol/L (3.5-5.1); Sodium 143 mmol/L (135-145); eGFR > 60.00
[2025-06-13 05:14] LABS: Glucose - Point of Care 165 mg/dl (70-99)
[2025-06-13 05:19] VITALS: BMI 41.9
[2025-06-13] MEDS: SUBLIMAZE 100 IV ×2 (05:27→16:54)
[2025-06-13] MEDS: ZOSYN 100 IV ×4 (05:28→17:15)
[2025-06-13] MEDS: KCL ELIXIR 40 MEQ TUBE (06:50)
[2025-06-13 07:06] LABS: Glucose - Point of Care 231 mg/dl (70-99)
[2025-06-13] MEDS: NSS (PRESERVATIVE FREE) 10 ML IV (07:43)
[2025-06-13] MEDS: PROTONIX IV 40 MG IV (07:43)
[2025-06-13] MEDS: SUBUTEX 4 MG SL (07:43)
--- NOTE | 2025-06-13 07:44 | PTCARENOTE ---
-0700 Assumed care: patient intubated and sedated
- Fentanyl 75/7.5 ml + Propofol 25/22.7 ml; TPN 69ml; Insulin Qtt at 3ml with Accu checks Q 1 hour.
- Vent: (S)CMV: 20/500/50%+8; Changed by RT to (S)CMV 20/500/40%/+5 Peak 19; VT 447-521; RR 27; POX 93%; Suction large amount of white thin secretion
- Indwelling Mason draining Chayo urine;
-Blood pressure check via left Radial A/line;
-VS: temp: 100.5(via Mason); BP via left radial A/line 96/41; MAP 56; NSR 80; RR 27; POX 91%/40%
-HoB elevated, oral care done, Mason care done
[2025-06-13 08:10] LABS: Glucose - Point of Care 230 mg/dl (70-99)
[2025-06-13] MEDS: LASIX 40 MG IV (08:39)
--- NOTE | 2025-06-13 09:07 | W.PN.ID1 ---
Date of Service
Date of Service: June 13, 2025
Today's Communication
Continue Zosyn and Micafungin
Assessment / Plan
# Purulent peritonitis
# Colonic inertia with megacolon status post ex lap, decompression, colostomy, stool leakage into the abdomen requiring washout June 08, 2025
# Septic shock now off pressor
# Fever trending down
# Leukocytosis
# VDRF
- 06/08/25 Exploratory laparotomy, lysis of adhesions, sigmoidectomy, decompression of right colon, abdominal washout, creation of end descending colostomy, umbilical hernia repair
- No OR cx
- Blood cultures pending
- Continue Zosyn (d3)
- Continue empiric micafungin d2.
- Trend temps, WBC
- Continue ICU support
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
HFrEF
HTN
DM
Afib
HLD
Colonic Inertia / Dysmotility
Chronic opioid dependence
Advanced bilateral lower extremity venous insufficiency
Morbid obesity (BMI~43)
Chief Complaint
-: Clinical Sepsis
Subjective / Review of Systems
Per nurse, agitated, unable to wean from vent.
Vital Signs / Physical Exam
Vital Signs
Vital Signs
Temp Pulse Resp BP Pulse Ox
100.4 F H 83 24 102/44 94
06/13/25 07:23 06/13/25 08:39 06/13/25 06:00 06/13/25 08:39 06/13/25 08:23
Physical Exam
Constitutional: Acutely Ill and Obese
Cardiovascular: Regular Rate and S1/S2
Pulmonary: Coarse
Gastrointestinal: Soft, Distended, Decreased Bowel Sounds and Other (ostomy loose dark brown stools; CHRISTINE serosanguinous; incision dressing dry)
Genito-Urinary: Clear Urine
Extremities: Edema and Venous Insufficiency
Musculoskeletal: Other
Objective Data
Lab Data
Lab Results
06/13/25 03:47
06/13/25 03:47
PT 17.4 Sec (11.4-14.6) H 06/09/25 00:01
INR 1.40 06/09/25 00:01
APTT 30.2 Sec (23.4-35.0) 06/09/25 00:01
Estimated Creat Clear > 125 ml/min 06/13/25 03:47
Lactic Acid 0.9 mmol/L (0.7-2.0) 06/09/25 00:01
Total Bilirubin 0.5 mg/dl (0.2-1.3) 06/12/25 03:57
AST 33 U/L (17-59) 06/12/25 03:57
ALT < 10 U/L (0-50) 06/12/25 03:57
Alkaline Phosphatase 65 U/L (38-126) 06/12/25 03:57
C-Reactive Protein > 270.00 mg/L (0.0-10.00) H 06/11/25 03:22
Most recent labs reviewed.
Micro Results:
06/11/25 09:27 Blood Culture - Preliminary
Blood/Venous No Growth in 24 hours- Final report to follow
06/11/25 09:59 Blood Culture - Preliminary
Blood/Venous No Growth in 24 hours- Final report to follow
06/06/25 07:57 MRSA Screen - Final
Nose No Methicillin Resistant Staphylococcus aureus isolated.
06/10 CXR: Stable CHF and bibasilar atelectasis and/or pneumonia.
06/08/25 CXR: Diffuse marked colonic dilation. Measurement of caliber of the upper colon is slightly greater then obstruction series of June 07, 2025. Multiple air-fluid levels compatible with stasis. Moderate amount of stool within the inferior
aspect of the right colon as well as within the rectum. No gross evidence for free intraperitoneal air.
06/05/25 CT a/p: Significant gaseous distention of a large portion of the colon. This contributes to limitation of this examination, as the patient cannot be fully included on the [id number] of the CT scanner. If there can be some distal colonic
decompression, repeat scan could be considered, when hopefully the patient could be entirely included on the okbce-ag-[id number] of the exam. No gross evidence for free intraperitoneal air. Patchy parenchymal opacity within the visualized lower lung, most
likely atelectasis. Pneumonia is a differential consideration, felt to be less likely based on morphologic appearance.
Care Review
Plan reviewed with: Nurse
--- NOTE | 2025-06-13 09:09 | W.PN.INTV ---
Today's Communication / Plan
Recommendations
- Initiate diuresis, Lasix 40 mg IV stat
- Switch to weaning mode, ASV, 100% minute ventilation target, PEEP of 8 and FiO2 50%
- SAT today, depending on patient's clinical response will consider uptitrating nightly Seroquel
- Follow-up ABG, chest x-ray in a.m
- Repeat blood cultures
Assessment
-
Assessment: 64-year-old male with a past medical history of cardiomyopathy, hypertension, DM type II, history of chronic opioid use due to chronic arthritis now on buprenorphine, history of ERASMO, venous insufficiency and chronic back pain who
presented with shortness of breath, abdominal distention. Found to have severe colonic distention. Initially treated with neostigmine, attempted sigmoidoscopy without attempt. Underwent exploratory laparotomy 06/08/2025-developed shock requiring
vasopressors and remained on mechanical ventilation. We were consulted on 06/09/2025.
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
OxyContin/oxycodone,systolic cardiomyopathy.
Impression:
Acute hypoxemic respiratory failure post surgery: Due to abdominal distention requiring intubation mechanical ventilation
Septic shock suspected-source likely intraperitoneal
Status post laparotomy:Exploratory laparotomy, lysis of adhesions, sigmoidectomy, decompression of right colon, abdominal washout, creation of end descending colostomy, umbilical hernia repair-06/08/2025
--
# Colonic dysmotility
#Atrial flutter
#Chronic HFrEF with right ventricular systolic dysfunction
#Valvular heart disease with mild as moderate MR and mild as moderate TR
#Morbid obesity
#DM type II
#Venous deficiency
#History of ERASMO
#Chronic pain management due to arthritis currently on buprenorphine in an effort to calm off of OxyContin/oxycodone
Plan:
-
Patient is critically ill: Intubated on mechanical ventilation and shock requiring vasopressors.
-
Mechanical ventilation settings reviewed:
ABG 06/13/2025: 7.40 3/96. On volume assist-control 500/20/50%/PEEP of 8.
ET tube with large volume clear to mucoid secretions
Pulmonary mechanics continue to be acceptable.
Chest x-ray with worsening pulmonary edema
Switch to ASV at 100% target minute ventilation, PEEP of 8 and FiO2 50%. Follow-up ABG in a.m.
Initiate SAT
-
Septic shock: Suspect intra-abdominal source-possible peritonitis postsurgically-washout was performed.
Vasopressors discontinued since 06/11/2025-PM.
Continues to be febrile, repeat blood cultures today, infectious disease service on case
Status post laparotomy for significant abdominal distention as above.
NG tube in place-output has significantly decreased
Now colostomy with good output
Abdomen continues to be distended
Surgical incision remains intact, ostomy output noted
Follow surgical recommendations
Transitioned to Zosyn 06/11/2025 per infectious disease
Given persistent fevers micafungin added 06/12/2025
Urinalysis without evidence for infection
Infectious disease and surgery service on case
-
Acute on chronic heart failure with reduced ejection fraction/atrial flutter
Echocardiogram reviewed 04/28/2025: Ejection fraction 35%. Global hypokinesis. Mild LVH. Stage I diastolic dysfunction. Mildly dilated right ventricle. Mild aortic stenosis. Mild TR. Estimated pulmonary artery pressure 50 to 55 mmHg.
Pitting edema noted both bilateral upper and lower extremities. Chest x-ray suggestive of increasing congestion
Lasix 40 mg IV stat. If tolerates well, will repeat doses later today.
Amiodarone restarted.
NG tube remains in place.
-
N.p.o.
Currently on TPN
Daily labs follow electrolytes.
Head of elevation
Maintain PICC line.
-
Hyperglycemia: Insulin drip started 06/12/2025.
Patient now on TPN
-
Anemia: Blood loss.
Stable
Follow
Will transfuse as needed
-
DVT prophylaxis: -On Lovenox subcu.
Hemoglobin drift noted, no obvious source of bleeding identified. Hold off heparin infusion for now.
-
Prognosis is guarded
-
Critical care statement: A total of 45 minutes of critical care time was provided for this patient today. This includes management of unstable vital signs, evaluation of the patient at bedside, reviewing the patient's pertinent medical records
including ventilator settings, arterial blood gases, radiographs, microbiology, laboratory evaluations and discussion with primary team, critical care nursing, and respiratory therapy.

Data reviewed:
Chest x-ray 06/08/2025: Reviewed, ET tube in place. Left lower lobe airspace disease. Cardiomegaly
-
CT abdomen pelvis 06/05/2025:
The patient is significantly distended, and much of the abdominal and upper pelvic soft tissues extending anterior and to the left of the [id number], which limits evaluation, as it becomes difficult to confidently follow the loops of bowel.
There is distention of the rectum with air and stool, measuring 9.3 cm in diameter. There is marked distention of the sigmoid colon which extends into the right and central upper abdomen, with the sigmoid colon measuring up to 18 cm in diameter. The
sigmoid colon contains a moderate to large amount of stool, mainly inferiorly. There appears to be moderate distention of the rest of the visualized colon.
Small bowel loops are present, and do not appear to be significantly distended, similar appearance to prior examination.
Of note, the cecum cannot be confidently identified on the present examination
No gross evidence of free intraperitoneal air.
There is patchy parenchymal opacity within the visualized lower lungs, most likely atelectasis. A component of pneumonia is also possible, although felt to be less likely. There is no significant pleural effusion and no significant pericardial
effusion.
Coronary artery calcifications are present. Please correlate with symptoms of and risk factors for coronary artery disease, with further workup as clinically appropriate.
Of note, the stomach is not distended.
Subjective Dataa
Subjective Data
Date of Service:
Date of Service: June 13, 2025
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
Subjective:
Patient currently intubated, mechanically ventilated and sedated.
Review of Systems
General: Unobtainable - Sedation
Objective Data
Data Reviewed
Vital Signs / I&O / Oxygen:
Vital Signs
Temp Pulse Resp BP Pulse Ox
100.4 F H 83 24 102/44 94
06/13/25 07:23 06/13/25 08:39 06/13/25 06:00 06/13/25 08:39 06/13/25 08:23
Intake and Output
06/12/25 06/13/25 06/14/25
06:59 06:59 06:59
Intake Total 4785.0 / 4960.3 3461.0 / 3563.2 204.4 / 204.4
Output Total 4815 / 4895 2640 / 2890 375 / 375
Balance -30.0 / 65.3 821.0 / 673.2 -170.6 / -170.6
SaO2 [ASV] 93
SaO2 [A/C] 94
SaO2 94
Nasal Cannula flow liters per 3
minute
Physical Exam
General: Comfortable
HEENT: Normocephalic
Cardiovascular: S1-S2 and Peripheral Edema (Both upper and lower extremities have pitting edema)
Respiratory: Crackles (Left lower lobe crackles) and ET Tube
GI: Soft, Distended, Other (Colostomy with stool output.) and Other (NG tube in place minimal drainage)
Neurology: Other (Currently sedated. ) and Other
Skin: Warm and Other ( lower extremity venous stasis, both extremities are wrapped.)
Labs/Micro/Reports
Lab Data
06/13/25 03:47
06/13/25 03:47
Laboratory Results
06/13/25
03:47
pH 7.43
pCO2 47
pO2 96
HCO3 31.2 H
O2 Delivery Level
Microbiology
06/11/25 09:27 Blood/Venous Blood Culture - Preliminary
No Growth in 24 hours- Final report to follow
06/11/25 09:59 Blood/Venous Blood Culture - Preliminary
No Growth in 24 hours- Final report to follow
[2025-06-13 09:10] VITALS: BP 103/57
[2025-06-13 09:10] LABS: Glucose - Point of Care 236 mg/dl (70-99)
--- NOTE | 2025-06-13 09:12 | PTCARENOTE ---
BP auto left upper arm 103/57 MAP 69; left A/line 101/44 MAP 59
[2025-06-13 10:11] LABS: Glucose - Point of Care 217 mg/dl (70-99)
[2025-06-13] MEDS: HYDROPHOR 1 APPLIC TOPICAL (10:12)
[2025-06-13] MEDS: MYCAMINE 105 MG IV (10:17)
[2025-06-13] MEDS: OMNIPAQUE 50 ML PO (10:27)
[2025-06-13] MEDS: LEVOPHED 250 IV (10:27)
[2025-06-13] MEDS: NOVOLIN R INSULIN INFUSION 100 IV ×2 (11:06→19:00)
[2025-06-13 11:11] LABS: Glucose - Point of Care 243 mg/dl (70-99)
[2025-06-13 12:13] LABS: Glucose - Point of Care 221 mg/dl (70-99)
[2025-06-13 12:23] LABS: B.E. 7.5 mmol/L; HCO3 33.1 mmol/L (21-28); O2 Saturation % 97.7 % (94-98); PCO2 51 mmHg (35-48); PO2 75 mmHg (83-108)
[2025-06-13 13:17] LABS: Glucose - Point of Care 199 mg/dl (70-99)
--- NOTE | 2025-06-13 13:37 | W.PN.HOSP.TC ---
Today's Communication/Plan
-
Continue management in the ICU.
CT chest/abdomen/pelvis is pending
Assessment / Plan
Assessment / Plan
Impression:
Mr. Knapp is a 64-year-old male with medical history of HFpEF, A-fib/flutter, IDDM, obesity, chronic pain with subsequent opioid dependence, and chronic constipation with colonic dysmotility who presented with shortness of breath, abdominal
bloating and discomfort, constipation. His last bowel movement was 2 weeks prior to arrival. He is having increasing difficulty breathing due to worsening abdominal distention. He has had multiple similar episodes since September 2024 and has
previously required decompression. He has been treated with enemas and neostigmine previously. Abdominal imaging showed significant colonic distention with air-filled loops of bowel. He also had patchy parenchymal opacities within the mid to
lower lungs. He was mildly hypoxic and has been started on antibiotics. He has remained afebrile with a mild leukocytosis of just over 12,000. He has been admitted for further evaluation and management.
Seen by GI, failed neostigmine, enema, status post nonsuccessful decompressive flexible sigmoidoscopy.
Surgery team consulted.
s/p Exploratory laparotomy, lysis of adhesions, sigmoidectomy, decompression of right colon, abdominal washout, creation of end descending colostomy, umbilical hernia repair on 06/08
admitted to ICU postoperatively, intubated.
Patient had fever,Infectious disease consult, started on zosyn.
Patient was still running fever, added micafungin.
CT chest/abdomen/pelvis is pending
Assessment/Plan:
Colonic dysmotility/ileus:
- Abdomen remains significantly distended despite multiple medical classes enemas and subsequent bowel movements
- Upgraded to IMU today, pushed 4 mg neostigmine around 1:30 PM, awaiting peristaltic response
- GI following, appreciate guidance, may need to involve colorectal surgical team if no improvement
- Clear liquid diet for now
- Continue home Linzess
- If medical therapy fails he may need to have an elective sigmoidectomy considering multiple similar recurrences, holding home Xarelto pending any needed surgical interventions, last dose evening of 06/06
06/08
status post nonsuccessful decompressive flexible sigmoidoscopy
Surgery team consulted
Possible OR today
Discussed with patient and at [facility].
06/09
S/P Exploratory laparotomy, lysis of adhesions, sigmoidectomy, decompression of right colon, abdominal washout, creation of end descending colostomy, umbilical hernia repair.
06/10
still in the ICU postoperatively, intubated.
Septic shock, requiring pressors.
Patient also had a run of fever.
Was empirically given Invanz.
Infectious disease consult, started on zosyn.
06/12
Patient was still running fever, added micafungin.
06/13
CT chest/abdomen/pelvis is pending.
Acute hypoxic respiratory failure (currently intubated in the ICU postoperatively)
Continue mechanical ventilation
paroxismal A-fib/flutter:
- Currently rate controlled, continue home metoprolol and amiodarone
- Holding home Xarelto .
IDDM:
- Insulin drip.
HFpEF:
- Chronic, currently compensated
- Continue beta-blockade with home metoprolol succinate 100 mg at night
- Holding home Lasix , spironolactone, monitor daily weights
- No need for afterload reduction due to borderline hypotension
CODE STATUS: Full code
DVT prophylaxis: hold Xarelto
Diet: TPN
Family communication: Discussed with at bedside 06/12.
Disposition: Continue management in the ICU.
CT chest/abdomen/pelvis is pending
Total time spent on today's encounter was 75 minutes which included time spent in counseling the patient/family regarding diagnosis and treatment plan as listed above, goals of care, and symptom management. Case was discussed with nursing staff,
specialists, and care coordinators/case management. All labs and imaging personally reviewed by me. Remainder the time spent in detailed review of previous records, lab data, imaging, and other medical provider documentation.
Anticipated Discharge: > 48 hours
Subjective/Interval History
-
Date of Service: June 13, 2025
Patient remains intubated in ICU, still running fever (low grade)
Objective Data
-
Labs:
Laboratory Results
06/13/25 06/13/25
03:47 12:06
WBC 11.6 H
Hgb 8.9 L
Hct 29.3 L
Plt Count 108 L
HCO3 31.2 H 33.1 H
Sodium 143
Potassium 3.5
Chloride 111 H
Carbon Dioxide 31 H
BUN 22 H
Creatinine 0.6 L
Glucose 180 H
Calcium 8.1 L
Vital Signs:
Vital Signs
Temp Pulse Resp BP Pulse Ox
99.9 F 77 24 102/44 96
06/13/25 11:05 06/13/25 09:12 06/13/25 06:00 06/13/25 08:39 06/13/25 11:24
I&O
06/12/25 06/13/25 06/14/25
06:59 06:59 06:59
Intake Total 4785.0 / 4960.3 3461.0 / 3563.2 1808.4 / 1808.4
Output Total 4815 / 4895 2640 / 2890 2385 / 2385
Balance -30.0 / 65.3 821.0 / 673.2 -576.6 / -576.6
Physical Exam
-
General: Intubated and Obese
HEENT: Normocephalic, Atraumatic, Moist Mucous Membranes, No Ptosis, PERRLA and Nose Appears Normal
Respiratory: Rales, Rhonchi and Non Labored Respirations
Cardiac: Regular Rhythm and S1/S2
Breast: Deferred by me
GI: Other (Colostomy bag, midline incision clean)
Musculoskeletal: No Clubbing and No Cyanosis
Skin: Warm
Neuro: Sedated
Psych: Other (Sedated)
Data Reviewed
-
Diagnostic Radiology: Image personally visualized and interpreted and Report Reviewed by me
CT Scan: Image personally visualized and interpreted and Report Reviewed by me
Ultrasound: Image personally visualized and interpreted and Report Reviewed by me
MRI: Image personally visualized and interpreted and Report Reviewed by me
Medical Tests (Nuc Med, Echo etc): Image personally visualized and interpreted and Report Reviewed by me
Labs: Labs Reviewed by me
Old Records: Reviewed
--- NOTE | 2025-06-13 13:49 | W.PN.CRS1 ---
Today's Communication / Plan
-
CT imaging
Cont. TPN
Assessment/Plan
-
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
obstipation associated with megacolon. WBC 11.[address] showing gaseous distention of the colon, diameter of the sigmoid up to 18 cm in diameter. He received a dose of neostigmine, which failed. He underwent attempt at decompressive sigmoidoscopy,
but encountered too much stool. Due to refractory nature of his issue, we proceeded with surgery.
POD 5 exlap, sigmoidectomy, end-colostomy; iatrogenic spillage of stool - controlled and abdomen washed out, no colonic ischemia or perforation
Continues with fevers, VSS. VDRF
Mild leukocytosis todayto 11.6
Plan
� Wean vent as tolerated; appreciate ICU
� Okay for hep gtt if needed
� Continue n.p.o. with OGT; cont TPN
� Appreciate ID, on zosyn
� Continue Mason, strict I&O's
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
Will plan Ct imaging of the chest/abd/pelvis given ongoing fevers and new leukocytosis
Subjective Data
Procedure
06/08/25- Exploratory laparotomy, lysis of adhesions, sigmoidectomy, decompression of right colon, abdominal washout, creation of end descending colostomy, umbilical hernia repair
Subjective Data
Date of Service: June 13, 2025
Pt seen and examined with Dr. Paul around 0900 this am. Intubated/sedated, unable to provide subjective portion of exam. does open eyes to name.
Objective Data
-
Vital Signs
Temp Pulse Resp BP Pulse Ox
99.9 F 77 24 102/44 96
06/13/25 11:05 06/13/25 09:12 06/13/25 06:00 06/13/25 08:39 06/13/25 11:24
Intake & Output
06/12/25 06/13/25 06/14/25
06:59 06:59 06:59
Intake Total 4785.0 / 4960.3 3461.0 / 3563.2 1808.4 / 1808.4
Output Total 4815 / 4895 2640 / 2890 2385 / 2385
Balance -30.0 / 65.3 821.0 / 673.2 -576.6 / -576.6
Intake:
Oral fluids 0 / 0 1000 / 1000
IV fluids (Total) 3554.0 / 3680.3 1768.0 / 1801.2 325.4 / 325.4
Diprivan gtt 151.8 / 151.8
Double concentrated Levophed 62.1 / 62.1
Fentanyl gtt 367.5 / 385.0 327.5 / 335.0 52.5 / 52.5
Insulin 56.5 / 59.5 69 / 69
Levophed gtt 45 / 45
Nss 1,000 ml @ 70 mls/hr IV . 2450 / 2520 660 / 660
[id number] [facility] Rx#:[id number]
Precedex 450.6 / 489.4 279.3 / 279.3
Propofol 444.7 / 467.4 158.9 / 158.9
Vasopressin gtt 72 / 72
IV piggybacks 700 / 700 256 / 256
TPN/PPN 441 / 490 1347 / 1416 483 / 483
Amount instilled into GI Tube (
Total)
[place] Sump
Output:
Liquid stool amount 2540 / 2540 70 / 70 200 / 200
Colostomy 2540 / 2540 70 / 70 200 / 200
Drain Output (Total) 180 / 180 70 / 70 260 / 260
Right Lower Abdomen [place]- 180 / 180 70 / 70 260 / 260
Vo
Gastrointestinal tube output ( 0 / 0
Total)
[place] Sump 0 / 0
Urine, Mason 2094 2500 / 2750 1924
Lab Results
06/13/25 03:47
06/13/25 03:47
Physical Exam
-
General: No Acute Distress
HEENT: Other (VDRF)
Abdomen: Soft, Non Distended and Other (stoma productive of loose brown stool, pink/viable)
Skin: Warm and Dry
Wound: Dressing Changed and Other (fred intact. no purulence. CHRISTINE SSF)
[2025-06-13 14:14] LABS: Glucose - Point of Care 162 mg/dl (70-99)
[2025-06-13] MEDS: SUBLIMAZE 50 MCG IV (14:22)
--- NOTE | 2025-06-13 14:52 | PTCARENOTE ---
taking to CT via bed. Results pending. Upon Return to unit RR 33 SpO2 88. changed from ASV mode back to (S)CMV mode 20/500/+8/100 [place] 23/actual vT 435; RR 27.
[2025-06-13 15:12] LABS: Glucose - Point of Care 164 mg/dl (70-99)
[2025-06-13 16:06] LABS: Glucose - Point of Care 159 mg/dl (70-99)
[2025-06-13] MEDS: OFIRMEV 100 IV (16:53)
[2025-06-13] MEDS: LOVENOX 40 MG SC (16:53)
[2025-06-13 17:20] LABS: Glucose - Point of Care 161 mg/dl (70-99)
[2025-06-13 17:52] VITALS: BP_SYST 75
[2025-06-13 17:53] VITALS: BP_SYST 75
[2025-06-13 17:54] VITALS: BP_SYST 75
--- NOTE | 2025-06-13 18:11 | PTCARENOTE ---
- Pupils sluggish to light +2 Reactive to pain stimuli. Good Gag reflex, Soft Restraints to B/l hands; On Propofol 25mcg/22.7+Fentanyl 75/7.5
-Normal Sinus Rhythm on telemetry 72bmp, +2 edema to b/l hands; B/L LE +3. Pedal pulses check via doppler. Levophed 10mcg/37.5 for MAP >65
-ETT # 8/25 Lip; Vent: AC: 80%/20/500/+8 Suction for yellow thick secretion via ETT/oral
-Abdomen obese, round; Left colostomy draining brown soft output. Midline incision fred. Dressing changed by surgery . RT J-P draining Serosanguineous drainage
- Indwelling Mason draining jack urine. Post lasix 4,700 cc urinal output
-lines: RT PICC line TL : dressing intact. Fentanyl and Propofol; Insulin (on Insulin qtt) KVO;
-pt at bedside. Updates provided HOB elevated
--- NOTE | 2025-06-13 19:00 | PTCARENOTE ---
Received pt. at 1900. Pt. currently on ventilator, sedated. No signs of pain/discomfort. Afebrile. Heart rhythm sinus. Currently on levophed infusion to maintain MAP >65. Ventilator settings verified. Lungs sound coarse. Minimal secretions. Abdomen
obese. TPN infusing via PICC line. Ostomy intact. CHRISTINE drain intact. Mason catheter in place, draining without issue. Skin as documented. Vital signs stable at this time.
[2025-06-13 19:11] LABS: Glucose - Point of Care 156 mg/dl (70-99)
[2025-06-13] MEDS: Parenteral Nutrition, Central 1640 IV (19:48)
[2025-06-13 21:14] LABS: Glucose - Point of Care 156 mg/dl (70-99)
[2025-06-13] MEDS: LIPITOR 40 MG TUBE (21:27)
[2025-06-13] MEDS: PACERONE 200 MG TUBE (21:27)
[2025-06-13] MEDS: SEROQUEL 50 MG TUBE (21:27)
[2025-06-13 23:15] LABS: Glucose - Point of Care 119 mg/dl (70-99)
--- NOTE | 2025-06-14 | PTCARENOTE ---
Pt. assessment unchanged. Titrating insulin gtt per protocol. Pt. appears comfortable. Vital signs stable at this time.
[2025-06-14] MEDS: DIPRIVAN 100 IV ×6 (00:57→21:49)
[2025-06-14 01:06] LABS: Glucose - Point of Care 105 mg/dl (70-99)
[2025-06-14] MEDS: ZOSYN 100 IV ×4 (01:09→19:28)
[2025-06-14 02:11] LABS: Glucose - Point of Care 120 mg/dl (70-99)
[2025-06-14 03:07] LABS: Glucose - Point of Care 110 mg/dl (70-99)
[2025-06-14 03:27] LABS: B.E. 8.4 mmol/L; HCO3 33.9 mmol/L (21-28); O2 Saturation % 99.5 % (94-98); PCO2 51 mmHg (35-48); PO2 136 mmHg (83-108)
[2025-06-14 03:30] LABS: Hematocrit 31.9 % (39.0-52.0); Hemoglobin 9.8 g/dL (13.0-18.0); Mean Corp Hgb Conc. 30.7 g/dL (33.0-37.0); Mean Corpuscular Volume 84.6 fL (80.0-94.0); Platelet Count 111 10^3/uL (130-400); Red Cell Dist. Width 14.9 % (11.5-14.5)
[2025-06-14 03:54] LABS: Blood Urea Nitrogen 20 mg/dl (9-20); Calcium 7.9 mg/dl (8.4-10.2); Carbon Dioxide 33 mmol/L (22-30); Chloride 107 mmol/L (98-107); Estimated Creatinine Clearance > 125 ml/min; Glucose 163 mg/dl (70-99); Magnesium 1.8 mg/dl (1.6-2.3); Potassium 3.3 mmol/L (3.5-5.1); Sodium 141 mmol/L (135-145); Triglycerides 169 mg/dl (10-149); eGFR > 60.00
--- NOTE | 2025-06-14 04:00 | PTCARENOTE ---
Pt. assessment remains unchanged. AM labs drawn. Vital signs stable at this time.
[2025-06-14 04:09] VITALS: BMI 42.1
[2025-06-14 04:18] LABS: Glucose - Point of Care 164 mg/dl (70-99)
[2025-06-14] MEDS: KCL 100 IV ×2 (05:05→15:58)
[2025-06-14 05:15] LABS: Glucose - Point of Care 172 mg/dl (70-99)
[2025-06-14] MEDS: SUBLIMAZE 100 IV ×2 (05:42→18:45)
[2025-06-14 06:18] LABS: Glucose - Point of Care 170 mg/dl (70-99)
[2025-06-14] MEDS: LEVOPHED 250 IV ×3 (06:47→21:49)
[2025-06-14 07:16] LABS: Glucose - Point of Care 182 mg/dl (70-99)
[2025-06-14 07:24] VITALS: BP 94/54
--- NOTE | 2025-06-14 07:39 | PTCARENOTE ---
0700 Assumed care. patient intubated and sedated. Restraints to b/l wrist
On: Fentanyl 75/7.5+Propofol 25.32.7; Levophed 4/15ml; TPN ; Insulin qtt adjusted per protocol
Indwelling Mason draining clear jack urine, RT abdominal J-P serosanguineous; Left Abdominal ostomy;
HOB elevated
--- NOTE | 2025-06-14 07:43 | W.PN.ID1 ---
Date of Service
Date of Service: June 14, 2025
Today's Communication
Continue current antibiotics.
Assessment / Plan
# Purulent peritonitis
# Colonic inertia with megacolon; status post ex lap, decompression, colostomy, stool leakage into the abdomen requiring washout June 08, 2025
# Septic shock; now off pressor
# Fever trending down
# Leukocytosis
# VDRF
- 06/08/25 Exploratory laparotomy, lysis of adhesions, sigmoidectomy, decompression of right colon, abdominal washout, creation of end descending colostomy, umbilical hernia repair
- No OR cx
- Blood cultures pending; no growth to date
- Continue Zosyn (d#4)
- Continue empiric micafungin (d#3).
- Trend temps, WBC. Follow cultures.
- Continue ICU support. Patient remains critically ill on vent; on pressor.
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
HFrEF
HTN
DM
Afib
HLD
Colonic Inertia / Dysmotility
Chronic opioid dependence
Advanced bilateral lower extremity venous insufficiency
Morbid obesity (BMI~43)
Chief Complaint
-: Clinical Sepsis
Subjective / Review of Systems
Patient seen and examined. Remains on vent at this time.
Vital Signs / Physical Exam
Vital Signs
Vital Signs
Temp Pulse Resp BP Pulse Ox
99.4 F 81 26 103/57 97
06/14/25 07:17 06/14/25 06:30 06/14/25 06:30 06/13/25 09:10 06/14/25 07:37
Physical Exam
Constitutional: Acutely Ill and Obese
Oropharyngeal: Other (ET tube in place.)
Cardiovascular: Regular Rate and S1/S2; Negative S3/S4
Pulmonary: Coarse and Other (On vent)
Gastrointestinal: Soft, Distended, Decreased Bowel Sounds and Other (ostomy loose dark brown stools; CHRISTINE with serosanguinous drainage; incision dressing dry.)
Genito-Urinary: Clear Urine
Extremities: Edema and Venous Insufficiency
Wound: Other (Anterior abdominal incision line with fred in place. Packing in areas of dehiscence.)
Psychological: Calm
Objective Data
Lab Data
Lab Results
06/14/25 03:18
06/14/25 03:18
PT 17.4 Sec (11.4-14.6) H 06/09/25 00:01
INR 1.40 06/09/25 00:01
APTT 30.2 Sec (23.4-35.0) 06/09/25 00:01
Estimated Creat Clear > 125 ml/min 06/14/25 03:18
Lactic Acid 0.9 mmol/L (0.7-2.0) 06/09/25 00:01
Total Bilirubin 0.5 mg/dl (0.2-1.3) 06/12/25 03:57
AST 33 U/L (17-59) 06/12/25 03:57
ALT < 10 U/L (0-50) 06/12/25 03:57
Alkaline Phosphatase 65 U/L (38-126) 06/12/25 03:57
C-Reactive Protein > 270.00 mg/L (0.0-10.00) H 06/11/25 03:22
Most recent labs reviewed.
Micro Results:
06/13/25 12:07 Blood Culture - Pending
Blood/Venous
06/13/25 12:07 Blood Culture - Pending
Blood/Venous
06/11/25 09:27 Blood Culture - Preliminary
Blood/Venous No Growth in 48 hours- Final report to follow
06/11/25 09:59 Blood Culture - Preliminary
Blood/Venous No Growth in 48 hours- Final report to follow
06/06/25 07:57 MRSA Screen - Final
Nose No Methicillin Resistant Staphylococcus aureus isolated.
Imaging:
06/10 CXR: Stable CHF and bibasilar atelectasis and/or pneumonia.
06/08/25 CXR: Diffuse marked colonic dilation. Measurement of caliber of the upper colon is slightly greater then obstruction series of June 07, 2025. Multiple air-fluid levels compatible with stasis. Moderate amount of stool within the inferior
aspect of the right colon as well as within the rectum. No gross evidence for free intraperitoneal air.
06/05/25 CT a/p: Significant gaseous distention of a large portion of the colon. This contributes to limitation of this examination, as the patient cannot be fully included on the [id number] of the CT scanner. If there can be some distal colonic
decompression, repeat scan could be considered, when hopefully the patient could be entirely included on the [id number] of the exam. No gross evidence for free intraperitoneal air. Patchy parenchymal opacity within the visualized lower lung, most
likely atelectasis. Pneumonia is a differential consideration, felt to be less likely based on morphologic appearance.
[2025-06-14] MEDS: HYDROPHOR 1 APPLIC TOPICAL (07:46)
[2025-06-14] MEDS: SUBUTEX 4 MG SL (07:49)
[2025-06-14] MEDS: NSS (PRESERVATIVE FREE) 10 ML IV (07:50)
[2025-06-14] MEDS: PROTONIX IV 40 MG IV (07:50)
[2025-06-14 08:13] LABS: Glucose - Point of Care 183 mg/dl (70-99)
--- NOTE | 2025-06-14 09:04 | VATNOTE ---
VAT rounds: noted right hand edema +1-+2 . Picc in right arm. Recommended us of the right arm to r/o dvt. 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
[2025-06-14 09:12] LABS: Glucose - Point of Care 178 mg/dl (70-99)
[2025-06-14] MEDS: LASIX 40 MG IV (09:41)
[2025-06-14] MEDS: NOVOLIN R INSULIN INFUSION 100 IV ×2 (09:42→17:17)
[2025-06-14] MEDS: MYCAMINE 105 MG IV (09:53)
--- NOTE | 2025-06-14 10:23 | W.PN.INTV ---
Today's Communication / Plan
Recommendations
- Lasix 40 mg IV
- Trial of ASV
- Airway clearance, add hypertonic saline nebulized 3 times a day
- Send sputum for cultures
- Follow-up chest x-ray and ABG in AM. Copious secretions endotracheally, patient not ready for extubation
Assessment
-
Assessment: 64-year-old male with a past medical history of cardiomyopathy, hypertension, DM type II, history of chronic opioid use due to chronic arthritis now on buprenorphine, history of ERASMO, venous insufficiency and chronic back pain who
presented with shortness of breath, abdominal distention. Found to have severe colonic distention. Initially treated with neostigmine, attempted sigmoidoscopy without attempt. Underwent exploratory laparotomy 06/08/2025-developed shock requiring
vasopressors and remained on mechanical ventilation. We were consulted on 06/09/2025.
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
OxyContin/oxycodone,systolic cardiomyopathy.
Impression:
Acute hypoxemic respiratory failure post surgery: Due to abdominal distention requiring intubation mechanical ventilation
Septic shock suspected-source likely intraperitoneal and LLL pneumonia
Status post laparotomy:Exploratory laparotomy, lysis of adhesions, sigmoidectomy, decompression of right colon, abdominal washout, creation of end descending colostomy, umbilical hernia repair-06/08/2025
--
# Colonic dysmotility
#Atrial flutter
#Chronic HFrEF with right ventricular systolic dysfunction
#Valvular heart disease with mild as moderate MR and mild as moderate TR
#Morbid obesity
#DM type II
#Venous deficiency
#History of ERASMO
#Chronic pain management due to arthritis currently on buprenorphine in an effort to calm off of OxyContin/oxycodone
Plan:
-
Patient is critically ill: Intubated on mechanical ventilation and shock requiring vasopressors.
-
Mechanical ventilation settings reviewed:
ABG 06/14/2025: 7.40 3/51/136, vent settings 500/20/50%/8. FiO2 lowered further down to 40%.
ET tube with large volume thick secretions. Initiate hypertonic saline nebulized 3 times daily
Pulmonary mechanics continue to be acceptable.
Chest x-ray stable to slightly improved aeration
Trial of ASV again today. Follow-up chest x-ray and ABG in a.m.
Initiate SAT
-
Septic shock: Suspect intra-abdominal source-possible peritonitis postsurgically-washout was performed. Also developing pneumonia, send sputum cultures
Vasopressors discontinued since 06/11/2025-PM.
Continues to be febrile, repeat blood cultures pending, infectious disease service on case
Status post laparotomy for significant abdominal distention as above.
NG tube in place-output has significantly decreased
Now colostomy with good output
Abdomen continues to be distended
Surgical incision remains intact, ostomy output noted
Follow surgical recommendations
Transitioned to Zosyn 06/11/2025 per infectious disease
Given persistent fevers micafungin added 06/12/2025
Urinalysis without evidence for infection
Infectious disease and surgery service on case
-
Acute on chronic heart failure with reduced ejection fraction/atrial flutter
Echocardiogram reviewed 04/28/2025: Ejection fraction 35%. Global hypokinesis. Mild LVH. Stage I diastolic dysfunction. Mildly dilated right ventricle. Mild aortic stenosis. Mild TR. Estimated pulmonary artery pressure 50 to 55 mmHg.
Pitting edema noted both bilateral upper and lower extremities. Improving since diuresis initiated. Patient had about 4 L plus urine output in the last 24 hours.
Repeat Lasix 40 mg IV today, if tolerates will switch to twice daily.
Amiodarone restarted.
NG tube remains in place.
-
N.p.o.
Currently on TPN
Daily labs follow electrolytes.
Head of elevation
Maintain PICC line.
-
Hyperglycemia: Insulin drip started 06/12/2025.
Patient now on TPN
-
Anemia: Blood loss.
Stable
Follow
Will transfuse as needed
-
DVT prophylaxis: -On Lovenox subcu.
Hemoglobin drift noted, no obvious source of bleeding identified. Hold off heparin infusion for now.
-
Prognosis is guarded
-
Critical care statement: A total of 45 minutes of critical care time was provided for this patient today. This includes management of unstable vital signs, evaluation of the patient at bedside, reviewing the patient's pertinent medical records
including ventilator settings, arterial blood gases, radiographs, microbiology, laboratory evaluations and discussion with primary team, critical care nursing, and respiratory therapy.

Data reviewed:
Chest x-ray 06/08/2025: Reviewed, ET tube in place. Left lower lobe airspace disease. Cardiomegaly
-
CT abdomen pelvis 06/05/2025:
The patient is significantly distended, and much of the abdominal and upper pelvic soft tissues extending anterior and to the left of the [id number], which limits evaluation, as it becomes difficult to confidently follow the loops of bowel.
There is distention of the rectum with air and stool, measuring 9.3 cm in diameter. There is marked distention of the sigmoid colon which extends into the right and central upper abdomen, with the sigmoid colon measuring up to 18 cm in diameter. The
sigmoid colon contains a moderate to large amount of stool, mainly inferiorly. There appears to be moderate distention of the rest of the visualized colon.
Small bowel loops are present, and do not appear to be significantly distended, similar appearance to prior examination.
Of note, the cecum cannot be confidently identified on the present examination
No gross evidence of free intraperitoneal air.
There is patchy parenchymal opacity within the visualized lower lungs, most likely atelectasis. A component of pneumonia is also possible, although felt to be less likely. There is no significant pleural effusion and no significant pericardial
effusion.
Coronary artery calcifications are present. Please correlate with symptoms of and risk factors for coronary artery disease, with further workup as clinically appropriate.
Of note, the stomach is not distended.
Subjective Dataa
Subjective Data
Date of Service:
Date of Service: June 14, 2025
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
Subjective:
Patient currently intubated, mechanically ventilated and sedated
Review of Systems
General: Unobtainable - Sedation
Objective Data
Data Reviewed
Vital Signs / I&O / Oxygen:
Vital Signs
Temp Pulse Resp BP Pulse Ox
99.4 F 81 26 103/57 100
06/14/25 07:17 06/14/25 06:30 06/14/25 06:30 06/13/25 09:10 06/14/25 07:54
Intake and Output
06/13/25 06/14/25 06/15/25
06:59 06:59 06:59
Intake Total 3461.0 / 3563.2 4494.0 / 4609.7 347.1 / 347.1
Output Total 2640 / 2890 4640 / 4870 795 / 795
Balance 821.0 / 673.2 -146.0 / -260.3 -447.9 / -447.9
SaO2 [ASV] 93
SaO2 [A/C] 97
SaO2 100
Nasal Cannula flow liters per 3
minute
Physical Exam
General: Comfortable
HEENT: Normocephalic
Cardiovascular: S1-S2 and Peripheral Edema (Both upper and lower extremities have pitting edema, improving)
Respiratory: Crackles (Left lower lobe crackles) and ET Tube
GI: Soft, Distended, Other (Colostomy with stool output.) and Other (NG tube in place minimal drainage)
Neurology: Other (Currently sedated. ) and Other
Skin: Warm and Other ( lower extremity venous stasis, both extremities are wrapped.)
Labs/Micro/Reports
Lab Data
06/14/25 03:18
06/14/25 03:18
Laboratory Results
06/13/25 06/14/25
12:06 03:18
pH 7.42 7.43
pCO2 51 H 51 H
pO2 75 L 136 H
HCO3 33.1 H 33.9 H
O2 Delivery Level
Microbiology
06/11/25 09:27 Blood/Venous Blood Culture - Preliminary
No Growth in 72 hours- Final report to follow
06/11/25 09:59 Blood/Venous Blood Culture - Preliminary
No Growth in 72 hours- Final report to follow
[2025-06-14] MEDS: SODIUM CHLORIDE 3% FOR INHALATION INH (11:09)
[2025-06-14 11:14] LABS: Glucose - Point of Care 188 mg/dl (70-99)
[2025-06-14] MEDS: SUBLIMAZE 50 MCG IV ×4 (11:27→21:19)
--- NOTE | 2025-06-14 11:32 | PTCARENOTE ---
Attempted Spontaneous Trial:
Fentanyl at 75 Propofol decreased from 25 to 20mcg at 0800. ASV tried after 2 mints RR 36 RASS +1 . Switched back to (S)CMV 20/500 40% +8 Fentanyl Bolus administered Propofol increased to 25
[2025-06-14] MEDS: SEROQUEL 50 MG TUBE (12:09)
[2025-06-14 12:24] LABS: Glucose - Point of Care 184 mg/dl (70-99)
--- NOTE | 2025-06-14 13:04 | W.PN.HOSP.TC ---
Today's Communication/Plan
-
Continue management in the ICU.
Continue antibiotics.
Weaning trial.
Assessment / Plan
Assessment / Plan
Impression:
Mr. Knapp is a 64-year-old male with medical history of HFpEF, A-fib/flutter, IDDM, obesity, chronic pain with subsequent opioid dependence, and chronic constipation with colonic dysmotility who presented with shortness of breath, abdominal
bloating and discomfort, constipation. His last bowel movement was 2 weeks prior to arrival. He is having increasing difficulty breathing due to worsening abdominal distention. He has had multiple similar episodes since September 2024 and has
previously required decompression. He has been treated with enemas and neostigmine previously. Abdominal imaging showed significant colonic distention with air-filled loops of bowel. He also had patchy parenchymal opacities within the mid to
lower lungs. He was mildly hypoxic and has been started on antibiotics. He has remained afebrile with a mild leukocytosis of just over 12,000. He has been admitted for further evaluation and management.
Seen by GI, failed neostigmine, enema, status post nonsuccessful decompressive flexible sigmoidoscopy.
Surgery team consulted.
s/p Exploratory laparotomy, lysis of adhesions, sigmoidectomy, decompression of right colon, abdominal washout, creation of end descending colostomy, umbilical hernia repair on 06/08
admitted to ICU postoperatively, intubated.
Patient had fever,Infectious disease consult, started on zosyn.
Patient was still running fever, added micafungin.
CT chest: New right lower lobe consolidation with air bronchograms, atelectasis versus pneumonia, Possible small bilateral pleural effusions.
CT abdomen/pelvis shows: Small volume fluid in the abdomen, particularly in the left abdomen mildly complex. As this fluid is incompletely included, it cannot be determined whether this totally represents likely free fluid or combination of free
fluid and abnormal focal fluid collection. Additional small abnormal focal fluid collections cannot be excluded on the basis of this markedly limited study
Patient received Lasix.
Assessment/Plan:
Colonic dysmotility/ileus:
- Abdomen remains significantly distended despite multiple medical classes enemas and subsequent bowel movements
- Upgraded to IMU today, pushed 4 mg neostigmine around 1:30 PM, awaiting peristaltic response
- GI following, appreciate guidance, may need to involve colorectal surgical team if no improvement
- Clear liquid diet for now
- Continue home Linzess
- If medical therapy fails he may need to have an elective sigmoidectomy considering multiple similar recurrences, holding home Xarelto pending any needed surgical interventions, last dose evening of 06/06
06/08
status post nonsuccessful decompressive flexible sigmoidoscopy
Surgery team consulted
Possible OR today
Discussed with patient and at [facility].
06/09
S/P Exploratory laparotomy, lysis of adhesions, sigmoidectomy, decompression of right colon, abdominal washout, creation of end descending colostomy, umbilical hernia repair.
06/10
still in the ICU postoperatively, intubated.
Septic shock, requiring pressors.
Patient also had a run of fever.
Was empirically given Invanz.
Infectious disease consult, started on zosyn.
06/12
Patient was still running fever, added micafungin.
06/13
CT chest/abdomen/pelvis is pending.
06/14
CT chest: New right lower lobe consolidation with air bronchograms, atelectasis versus pneumonia, Possible small bilateral pleural effusions.
CT abdomen/pelvis shows: Small volume fluid in the abdomen, particularly in the left abdomen mildly complex. As this fluid is incompletely included, it cannot be determined whether this totally represents likely free fluid or combination of free
fluid and abnormal focal fluid collection. Additional small abnormal focal fluid collections cannot be excluded on the basis of this markedly limited study
Patient received Lasix.
Acute hypoxic respiratory failure (currently intubated in the ICU postoperatively)
Continue mechanical ventilation
paroxismal A-fib/flutter:
- Currently rate controlled, continue home metoprolol and amiodarone
- Holding home Xarelto .
IDDM:
- Insulin drip.
HFpEF:
- Chronic, currently compensated
- Continue beta-blockade with home metoprolol succinate 100 mg at night
- Holding home Lasix , spironolactone, monitor daily weights
- No need for afterload reduction due to borderline hypotension
CODE STATUS: Full code
DVT prophylaxis: hold Xarelto
Diet: TPN
Family communication: Discussed with at bedside 06/12.
Disposition: Continue management in the ICU.
Total time spent on today's encounter was 75 minutes which included time spent in counseling the patient/family regarding diagnosis and treatment plan as listed above, goals of care, and symptom management. Case was discussed with nursing staff,
specialists, and care coordinators/case management. All labs and imaging personally reviewed by me. Remainder the time spent in detailed review of previous records, lab data, imaging, and other medical provider documentation.
Anticipated Discharge: > 48 hours
Subjective/Interval History
-
Date of Service: June 14, 2025
Patient remains intubated in ICU, still running fever (low grade) but overall improved.
Objective Data
-
Labs:
Laboratory Results
06/14/25
03:18
WBC 14.3 H
Hgb 9.8 L
Hct 31.9 L
Plt Count 111 L
HCO3 33.9 H
Sodium 141
Potassium 3.3 L
Chloride 107
Carbon Dioxide 33 H
BUN 20
Creatinine 0.5 L
Glucose 163 H
Calcium 7.9 L
Vital Signs:
Vital Signs
Temp Pulse Resp BP Pulse Ox
99.8 F 81 26 103/57 99
06/14/25 11:16 06/14/25 06:30 06/14/25 06:30 06/13/25 09:10 06/14/25 11:24
I&O
06/13/25 06/14/2506/15/25
06:59 06:59 06:59
Intake Total 3461.0 / 3563.2 4494.0 / 4609.7 835.5 / 835.5
Output Total 2640 / 2890 4640 / 4870 3795 / 3795
Balance 821.0 / 673.2 -146.0 / -260.3 -2959.5 / -2959.5
Physical Exam
-
General: Intubated and Obese
HEENT: Normocephalic, Atraumatic, Moist Mucous Membranes, No Ptosis, PERRLA and Nose Appears Normal
Respiratory: Rales, Rhonchi and Non Labored Respirations
Cardiac: Regular Rhythm and S1/S2
Breast: Deferred by me
GI: Other (Colostomy bag, midline incision clean)
Musculoskeletal: No Clubbing and No Cyanosis
Skin: Warm
Neuro: Sedated
Psych: Other (Sedated)
Data Reviewed
-
Diagnostic Radiology: Image personally visualized and interpreted and Report Reviewed by me
CT Scan: Image personally visualized and interpreted and Report Reviewed by me
Ultrasound: Image personally visualized and interpreted and Report Reviewed by me
MRI: Image personally visualized and interpreted and Report Reviewed by me
Medical Tests (Nuc Med, Echo etc): Image personally visualized and interpreted and Report Reviewed by me
Labs: Labs Reviewed by me
Old Records: Reviewed
[2025-06-14 13:09] LABS: Glucose - Point of Care 225 mg/dl (70-99)
[2025-06-14] MEDS: SODIUM CHLORIDE 3% FOR INHALATION 1 VIAL INH ×2 (13:40→19:28)
[2025-06-14 14:21] LABS: Glucose - Point of Care 233 mg/dl (70-99)
[2025-06-14 14:42] VITALS: BP 109/47
[2025-06-14 15:14] LABS: Glucose - Point of Care 183 mg/dl (70-99)
[2025-06-14] MEDS: MAGNESIUM SULFATE 50 IV (15:58)
[2025-06-14 16:18] LABS: Glucose - Point of Care 179 mg/dl (70-99)
--- NOTE | 2025-06-14 16:40 | W.PN.CRS1 ---
Today's Communication / Plan
-
cont tpn
Assessment/Plan
-
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
obstipation associated with megacolon. WBC 11.[address] showing gaseous distention of the colon, diameter of the sigmoid up to 18 cm in diameter. He received a dose of neostigmine, which failed. He underwent attempt at decompressive sigmoidoscopy,
but encountered too much stool. Due to refractory nature of his issue, we proceeded with surgery.
POD 6 exlap, sigmoidectomy, end-colostomy; iatrogenic spillage of stool - controlled and abdomen washed out, no colonic ischemia or perforation
Continues with fevers, VSS. VDRF
CT imaging on 06/13 limited as left side of body not well visualized. Left sided PNA visualized, copious secretions.
Leukocytosis with uptrend
Plan
� Wean vent as tolerated; appreciate ICU team
� Okay for hep gtt
� Continue n.p.o. with OGT; cont TPN. Replace electrolytes. Remains on insulin gtt
� Appreciate ID, on zosyn with addition of micafungin
� Continue Mason, strict I&O's
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
Subjective Data
Procedure
06/08/25- Exploratory laparotomy, lysis of adhesions, sigmoidectomy, decompression of right colon, abdominal washout, creation of end descending colostomy, umbilical hernia repair
Subjective Data
Date of Service: June 14, 2025
Pt seen and examined at bedside with Dr. Paul. Sedated/VDRF. Opens eyes to name. Comfortable appearing.
Objective Data
-
Vital Signs
Temp Pulse Resp BP Pulse Ox
100.6 F H 102 27 103/57 99
06/14/25 15:26 06/14/25 13:43 06/14/25 13:43 06/13/25 09:10 06/14/25 16:05
Intake & Output
06/13/25 06/14/25 06/15/25
06:59 06:59 06:59
Intake Total 3461.0 / 3563.2 4494.0 / 4609.7 1398.3 / 1398.3
Output Total 2640 / 2890 4640 / 4870 4195 / 4195
Balance 821.0 / 673.2 -146.0 / -260.3 -2796.7 / -2796.7
Intake:
Oral fluids 0 / 0 1000 / 1000
IV fluids (Total) 1768.0 / 1801.2 1655.0 / 1702.7 650.3 / 650.3
Fentanyl gtt 327.5 / 335.0 200.0 / 207.5 97.5 / 97.5
Insulin 56.5 / 59.5 234.5 / 241.5 121 / 121
Levophed gtt 487.5 / 502.5 200 / 200
Nss 1,000 ml @ 70 mls/hr IV . 660 / 660
[id number] [facility] Rx#:[id number]
Precedex 279.3 / 279.3
Propofol 444.7 / 467.4 733.0 / 751.2 231.8 / 231.8
IV piggybacks 256 / 256 125 / 125
TPN/PPN 1347 / 1416 1714 / 1782 748 / 748
Amount instilled into GI Tube (
Total)
[place] Sump /
Output:
Liquid stool amount 70 / 70 200 / 200
Colostomy 70 / 70 200 / 200
Drain Output (Total) 70 / 70 340 / 370 595 / 595
Right Lower Abdomen [place]- 70 / 70 340 / 370 595 / 595
Vo
Urine, Mason 2500 / 2750 4100 / 4300 3600 / 3600
Lab Results
06/14/25 03:18
06/14/25 03:18
Physical Exam
-
General: No Acute Distress
HEENT: Other (VDRF)
Abdomen: Soft, Non Distended and Other (stoma productive of loose brown stool, pink/viable)
Skin: Warm and Dry
Wound: Dressing Changed and Other (fred intact. no purulence. CHRISTINE SSF)
[2025-06-14 17:17] LABS: Glucose - Point of Care 167 mg/dl (70-99)
[2025-06-14] MEDS: LOVENOX 40 MG SC (17:57)
[2025-06-14 18:14] LABS: Glucose - Point of Care 135 mg/dl (70-99)
--- NOTE | 2025-06-14 19:00 | PTCARENOTE ---
Vital signs before 1900 during dayshift captured but this RN was not here to verify.
[2025-06-14 19:07] LABS: Glucose - Point of Care 126 mg/dl (70-99)
--- NOTE | 2025-06-14 19:28 | PTCARENOTE ---
Patient in bed.
Restraints . RASS -2; Propofol and Fentanyl for sedation +2 edema b/l LE +2 hands
Normal Sinus Rhythm 81 Frequent PVC. Magnesium and K-Cl administered
Lungs course. Intubated: AC 40%/20/500/+8 Section yellow thick secretion via ETT and oral
abdomen soft round, Midline incision covered with dressing
Mason draining clear yellow urine
pt repositioned HOB elevated
--- NOTE | 2025-06-14 20:00 | PTCARENOTE ---
Resumed care of pt this evening. Received pt intubated and sedated. Pt on fent and prop gtts for sedation infusing via Right PICC. Pt also on insulin gtt per critical care glycemic protocol. Pt also on levo gtt for pressure support. Pt tolerating
vent settings satting at 94% pulse ox. Pt suctioned for moderate amount of thick [place] colored secretions. On auscultation pt lungs sound diminished, coarse, and rhonchorous TO. Pt has OG tube in place connected to low intermittent suctioning. Abdomen
is round, obese, and distended. Abdomen sounds are hypoactive. Colostomy putting out soft brown stool, stoma is red and budded. CHRISTINE draining serosang drainage. Mason in place draining yellow colored urine.
[2025-06-14 20:12] LABS: Glucose - Point of Care 153 mg/dl (70-99)
[2025-06-14] MEDS: Parenteral Nutrition, Central 1640 IV (20:25)
[2025-06-14] MEDS: PACERONE 200 MG TUBE (21:26)
[2025-06-14] MEDS: LIPITOR 40 MG TUBE (21:26)
[2025-06-14 22:12] LABS: Glucose - Point of Care 118 mg/dl (70-99)
[2025-06-14] MEDS: OFIRMEV 100 IV (23:53)
--- NOTE | 2025-06-15 | PTCARENOTE ---
Pt has a rectal temp of 101.6 F. Ofirmev ordered via SEED YEAST OPERATOR and administered by this RN.
[2025-06-15 00:11] LABS: Glucose - Point of Care 123 mg/dl (70-99)
[2025-06-15] MEDS: ZOSYN 100 IV ×5 (00:31→23:09)
[2025-06-15] MEDS: NOVOLIN R INSULIN INFUSION 100 IV ×3 (00:41→18:44)
[2025-06-15] MEDS: DIPRIVAN 100 IV ×8 (00:53→23:33)
[2025-06-15 02:13] LABS: Glucose - Point of Care 117 mg/dl (70-99)
--- NOTE | 2025-06-15 04:00 | PTCARENOTE ---
Pt has a small amount of serous drainage draining from the surgical midline abdominal incision. Wound is approximated w/ fred and intact. Dressing changed, see wound documentation.
[2025-06-15 04:06] VITALS: BMI 41.4
[2025-06-15 04:12] LABS: Glucose - Point of Care 116 mg/dl (70-99)
[2025-06-15 04:37] LABS: B.E. 11.0 mmol/L; HCO3 36.7 mmol/L (21-28); O2 Saturation % 96.6 % (94-98); PCO2 54 mmHg (35-48); PO2 71 mmHg (83-108)
[2025-06-15 04:38] LABS: O2 Therapy 40%
[2025-06-15 05:01] LABS: ALT (SGPT) < 10 U/L (0-50); AST (SGOT) 24 U/L (17-59); Albumin 2.2 g/dl (3.5-5.0); Alkaline Phosphatase 86 U/L (38-126); Blood Urea Nitrogen 22 mg/dl (9-20); Calcium 8.2 mg/dl (8.4-10.2); Carbon Dioxide 36 mmol/L (22-30); Chloride 104 mmol/L (98-107); Estimated Creatinine Clearance > 125 ml/min; Glucose 117 mg/dl (70-99); Magnesium 2.0 mg/dl (1.6-2.3); Potassium 3.3 mmol/L (3.5-5.1); Sodium 142 mmol/L (135-145); Total Protein 4.8 g/dl (6.3-8.2); Triglycerides 171 mg/dl (10-149); eGFR > 60.00
[2025-06-15 05:02] LABS: Hematocrit 31.9 % (39.0-52.0); Hemoglobin 9.8 g/dL (13.0-18.0); Mean Corp Hgb Conc. 30.7 g/dL (33.0-37.0); Mean Corpuscular Volume 84.6 fL (80.0-94.0); Platelet Count 155 10^3/uL (130-400); Red Cell Dist. Width 14.9 % (11.5-14.5)
[2025-06-15] MEDS: SUBLIMAZE 100 IV ×2 (05:08→15:58)
[2025-06-15] MEDS: LEVOPHED 250 IV ×3 (05:12→19:54)
[2025-06-15] MEDS: KCL 100 IV ×3 (05:41→17:50)
[2025-06-15 06:10] LABS: Glucose - Point of Care 121 mg/dl (70-99)
[2025-06-15 07:13] LABS: Glucose - Point of Care 117 mg/dl (70-99)
[2025-06-15] MEDS: SUBUTEX 4 MG SL (07:36)
[2025-06-15] MEDS: PROTONIX IV 40 MG IV (07:36)
[2025-06-15] MEDS: NSS (PRESERVATIVE FREE) 10 ML IV (07:36)
[2025-06-15] MEDS: SODIUM CHLORIDE 3% FOR INHALATION 1 VIAL INH ×3 (07:43→20:38)
[2025-06-15] MEDS: SUBLIMAZE 50 MCG IV ×7 (07:49→23:08)
[2025-06-15 08:04] LABS: Glucose - Point of Care 133 mg/dl (70-99)
[2025-06-15 08:08] VITALS: BP 114/62
--- NOTE | 2025-06-15 08:51 | PTCARENOTE ---
report received, assessments per work list. patient opens eyes, does not follow commands, when aroused biting on ETT and asynchronous with fent. sedation per work list. diaphoretic and malodorous. gtt per work list. colostomy with soft brown stool.
surgeon in, moderate drainage noted at distal portion of incision, assessed by MD, redressed. ett suctions for large amounts segovia sputum. reviewed with air press operator and rt. morales draining yellow uirne. protective foam placed on sacrum. restraints
maintained for patient safety
[2025-06-15] MEDS: HYDROPHOR 1 APPLIC TOPICAL (09:03)
[2025-06-15 09:11] LABS: Glucose - Point of Care 151 mg/dl (70-99)
--- NOTE | 2025-06-15 09:40 | CM ---
Pt has a new colostomy.
Febrile on IV antibiotics.
TPN remains.
When appropriate will needed PT OT evals for discharge planning.
CM will continue to assess and assist in discharge planning.
PLAN Will depend on hospital course of care.
[2025-06-15] MEDS: OFIRMEV 100 IV ×3 (09:56→22:13)
[2025-06-15 10:12] LABS: Glucose - Point of Care 126 mg/dl (70-99)
[2025-06-15] MEDS: MYCAMINE 105 MG IV (10:17)
[2025-06-15 10:25] VITALS: BP 90/40
[2025-06-15] MEDS: LASIX 40 MG IV (10:37)
--- NOTE | 2025-06-15 10:48 | OR.RPT ---
Operative Report
Operative Report
Bronchoscopy and BAL (LLL)
Indication: Persistent copious thick secretions, persistent volume loss in LLL despite hypertonic saline nebulized and suctioning
Consent: Obtained from Patient's spouse via phone
Procedure: Patient was in supine position and currently intubated and mechanically ventilated on fentanyl and propofol infusion. Additional fentanyl 50 mcg IV x 1 was given prior to the procedure and another dose of 50 mcg was given during the
procedure. 2 mL of 1% lidocaine was sprayed around cosmo. Through the endotracheal tube bronchoscope was advanced and cosmo was visualized thick copious secretions were noted coming from the left mainstem. Bronchoscope was advanced into the
right upper lobe which was unremarkable subsequently right middle lobe was evaluated and all segments were patent. Right lower lobe was examined all segments were patent and small amount of mucoid secretions were noted which was easily cleared.
Scope was then advanced in the left mainstem which was essentially completely filled with thick copious secretions. I had to inject saline for easy suctioning as the bronchoscope channel kept clogging which I had to clear a couple of times by
withdrawing the bronchoscope cleaning and then reinserting. Left upper lobe was eventually intubated which appeared fairly unremarkable with very minimal secretions. Bronchoscope was then advanced into left lower lobe which was again nearly
completely filled with thick, mucoid purulent looking secretions. Extensive suctioning of the area was performed. Additional saline was injected to help with airway clearance. Scope was then wedged in basilar segments and a BAL was performed. 40
cc of saline was injected and about 25 cc of mucoid, purulent appearing fluid was aspirated and sent for microbiological studies. No active bleeding was noted at the end of the procedure. Scope was then withdrawn and procedure completed.
Patient tolerated procedure well. FiO2 was increased to 100% for the procedure which was subsequently lowered down to 60% after bronchoscopy.
Complications: None
Blood loss: None
Date of service: 06/15/2025
Time spent: 30 min
--- NOTE | 2025-06-15 10:58 | W.PN.INTV ---
Today's Communication / Plan
Recommendations
- Lasix 40 mg x 1
- Additional KCl 40 mEq IVPB
- Bronchoscopy with airway clearance and BAL of left lower lobe
- Chest x-ray and ABG in a.m.
- Will attempt ASV post bronchoscopy if patient is able to tolerate
Assessment
-
Assessment: 64-year-old male with a past medical history of cardiomyopathy, hypertension, DM type II, history of chronic opioid use due to chronic arthritis now on buprenorphine, history of ERASMO, venous insufficiency and chronic back pain who
presented with shortness of breath, abdominal distention. Found to have severe colonic distention. Initially treated with neostigmine, attempted sigmoidoscopy without attempt. Underwent exploratory laparotomy 06/08/2025-developed shock requiring
vasopressors and remained on mechanical ventilation. We were consulted on 06/09/2025.
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
OxyContin/oxycodone,systolic cardiomyopathy.
06/15/2025 Overview: Patient currently intubated, vent settings 500 by 20 x 40% x 8, blood gas 7.4 . Patient is -2.08 L. Current infusions Levophed at 7, fentanyl, propofol, TPN and insulin infusion. MAP of 68, currently saturating 94%.
Copious thick secretions coming from ET tube, continues to be febrile. Ostomy tube drainage noted, CHRISTINE drain in place with minimal serous drainage.
Assessment and plan
#1. Acute hypoxemic respiratory failure post surgery complicated by VAP
- Initially due to abdominal distention requiring intubation, mechanical ventilation
- Left lower lobe dense consolidation, copious ET tube secretions noted
- Continue broad-spectrum antibiotics, plan for bronchoscopy and BAL today
- Weaning attempts have been failing so far. 7.40 on 500/20/40%/8. Will attempt ASV mode post bronchoscopy
- Follow-up chest x-ray and ABG in a.m.
#2. Septic shock suspected-source likely intraperitoneal and LLL pneumonia
- Continues to need pressor support, currently on Levophed at 7
- Continue broad-spectrum antibiotics and antifungal per infectious disease service, micafungin and Zosyn infusing
- Follow-up on bronchoscopy and BAL results
-CT abdomen pelvis suboptimal to assess if patient has ongoing source of sepsis intraperitoneally
#3. Pseudoobstruction with megacolon, failed conservative management, s/p ex lap, POD#7
- S/p ex lap, sigmoidectomy and end colostomy, iatrogenic spillage of stool, peritonitis, umbilical hernia repair, 06/08/2025
- Continue IV Zosyn and micafungin
- Stool output noted in the ostomy bag
- N.p.o. currently, TPN infusing
#4. Acute on chronic heart failure with reduced ejection fraction, LVEF 35%, Stage I diastolic dysfunction
- Patient has been diuresing well with daily Lasix, repeat Lasix 40 mg IV x 1 today
- Replace potassium
#5. Paroxysmal atrial flutter.
- DC subcu Lovenox, initiate heparin infusion
- History of cardioversion in January 2025
- Has been on amiodarone as well
#6. Pulmonary hypertension, estimated pulmonary artery systolic pressure 50-55
- Primarily group II PH related to underlying congestive heart failure
- Continue to optimize intravascular volume, keep saturations above 90%, no indication for vasodilator therapy
#7. DM type II with Hyperglycemia
- Continue insulin infusion
#8. Prolonged QTc
- Noted in the setting of hypokalemia, hypomagnesemia and Seroquel therapy
- Seroquel has since been discontinued, replacing both potassium and magnesium, QTc normal today
- DC Haldol
Other medical diagnoses:
#Morbid obesity
#Venous deficiency
#History of ERASMO
#Chronic pain management due to arthritis currently on buprenorphine in an effort to wean off of OxyContin/oxycodone
-
DVT prophylaxis: -Start heparin infusion
GI prophylaxis, pantoprazole
-
Prognosis is guarded
-
Critical care statement: A total of 65 minutes of critical care time was provided for this patient today. This includes management of unstable vital signs, evaluation of the patient at bedside, reviewing the patient's pertinent medical records
including ventilator settings, arterial blood gases, radiographs, microbiology, laboratory evaluations and discussion with primary team, critical care nursing, and respiratory therapy.

Data reviewed:
Chest x-ray 06/08/2025: Reviewed, ET tube in place. Left lower lobe airspace disease. Cardiomegaly
-
CT abdomen pelvis 06/05/2025:
The patient is significantly distended, and much of the abdominal and upper pelvic soft tissues extending anterior and to the left of the [id number], which limits evaluation, as it becomes difficult to confidently follow the loops of bowel.
There is distention of the rectum with air and stool, measuring 9.3 cm in diameter. There is marked distention of the sigmoid colon which extends into the right and central upper abdomen, with the sigmoid colon measuring up to 18 cm in diameter. The
sigmoid colon contains a moderate to large amount of stool, mainly inferiorly. There appears to be moderate distention of the rest of the visualized colon.
Small bowel loops are present, and do not appear to be significantly distended, similar appearance to prior examination.
Of note, the cecum cannot be confidently identified on the present examination
No gross evidence of free intraperitoneal air.
There is patchy parenchymal opacity within the visualized lower lungs, most likely atelectasis. A component of pneumonia is also possible, although felt to be less likely. There is no significant pleural effusion and no significant pericardial
effusion.
Coronary artery calcifications are present. Please correlate with symptoms of and risk factors for coronary artery disease, with further workup as clinically appropriate.
Of note, the stomach is not distended.
Subjective Dataa
Subjective Data
Date of Service:
Date of Service: June 15, 2025
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
Subjective:
Patient currently mechanically ventilated, intubated and sedated.
Review of Systems
General: Unobtainable - Sedation
Objective Data
Data Reviewed
Vital Signs / I&O / Oxygen:
Vital Signs
Temp Pulse Resp BP Pulse Ox
101 F H 95 31 107/53 91
06/15/25 10:00 06/15/25 10:37 06/15/25 10:15 06/15/25 10:37 06/15/25 10:24
Intake and Output
06/14/25 06/15/25 06/16/25
06:59 06:59 06:59
Intake Total 4494.0 / 4609.7 3983.3 / 3983.3
Output Total 4640 / 4870 6515 / 6515
Balance -146.0 / -260.3 -2531.7 / -2531.7
SaO2 [ASV] 93
SaO2 [A/C] 93
SaO2 91
Nasal Cannula flow liters per 3
minute
Physical Exam
General: Comfortable
HEENT: Normocephalic
Cardiovascular: S1-S2 and Peripheral Edema (Significantly improving edema)
Respiratory: Crackles (Left lower lobe crackles, decreased air entry in the left hemithorax) and ET Tube (Extensive copious secretions through ET tube)
GI: Soft, Distended, Other (Colostomy with stool output.) and Other (NG tube in place minimal drainage)
Neurology: Other (Currently sedated. ) and Other
Skin: Warm and Other ( lower extremity venous stasis, both extremities are wrapped.)
Labs/Micro/Reports
Lab Data
06/15/25 04:25
Laboratory Results
06/15/25
04:25
pH 7.44
pCO2 54 H
pO2 71 L
HCO3 36.7 H
O2 Delivery Level 40%
Microbiology
06/15/25 10:08 Bronch Left Lower Lobe Fungal Culture - Preliminary
Culture in progress.
Positive cultures are reported as soon as detected.
Final report to follow in four to five weeks.
06/11/25 09:27 Blood/Venous Blood Culture - Preliminary
No Growth in 4 days- Final report to follow
06/11/25 09:59 Blood/Venous Blood Culture - Preliminary
No Growth in 4 days- Final report to follow
06/14/25 11:22 Tracheal Aspirate Respiratory Culture - Preliminary
Pseudomonas species
06/14/25 11:22 Tracheal Aspirate Gram Stain - Preliminary
06/13/25 12:07 Blood/Venous Blood Culture - Preliminary
No Growth in 24 hours- Final report to follow
06/13/25 12:07 Blood/Venous Blood Culture - Preliminary
No Growth in 24 hours- Final report to follow
--- NOTE | 2025-06-15 11:01 | W.PN.CRS1 ---
Today's Communication / Plan
-
bronch today
continue tpn
Assessment/Plan
-
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
obstipation associated with megacolon. WBC 11.[address] showing gaseous distention of the colon, diameter of the sigmoid up to 18 cm in diameter. He received a dose of neostigmine, which failed. He underwent attempt at decompressive sigmoidoscopy,
but encountered too much stool. Due to refractory nature of his issue, we proceeded with surgery.
POD 7 exlap, sigmoidectomy, end-colostomy; iatrogenic spillage of stool - controlled and abdomen washed out, no colonic ischemia or perforation
Continues with fevers, VSS. VDRF
CT imaging on 06/13 limited as left side of body not well visualized. Left sided PNA visualized, copious secretions.
Plan
� Wean vent as tolerated; appreciate ICU team
� Okay for hep gtt
- Bronch today per pulmonary team
� Continue n.p.o. with OGT; cont TPN. Replace electrolytes. Remains on insulin gtt
� Appreciate ID, on zosyn with addition of micafungin
� Continue Mason, strict I&O's
- Wean pressers as able
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
Subjective Data
Procedure
06/08/25- Exploratory laparotomy, lysis of adhesions, sigmoidectomy, decompression of right colon, abdominal washout, creation of end descending colostomy, umbilical hernia repair
Subjective Data
Date of Service: June 15, 2025
Patient is intubated and sedated. He is not in any acute distress.
Objective Data
-
Vital Signs
Temp Pulse Resp BP Pulse Ox
101 F H 95 31 107/53 91
06/15/25 10:00 06/15/25 10:37 06/15/25 10:15 06/15/25 10:37 06/15/25 10:24
Intake & Output
06/14/25 06/15/25 06/16/25
06:59 06:59 06:59
Intake Total 4494.0 / 4609.7 3983.3 / 4125.6 590.2 / 590.2
Output Total 4640 / 4870 6515 / 6515 510 / 510
Balance -146.0 / -260.3 -2531.7 / -2389.4 80.2 / 80.2
Intake:
Oral fluids 1000 / 1000
IV fluids (Total) 1655.0 / 1702.7 1738.3 / 1812.6 288.2 / 288.2
Fentanyl gtt 200.0 / 207.5 237.5 / 247.5 40 / 40
Insulin 234.5 / 241.5 276 / 283 32 / 32
Levophed gtt 487.5 / 502.5 620 / 650 112.6 / 112.6
Propofol 733.0 / 751.2 604.8 / 632.1 103.6 / 103.6
IV piggybacks 125 / 125 425 / 425
TPN/PPN 1714 / 1782 1700 / 1768 272 / 272
Amount instilled into GI Tube ( 120 / 120 30 / 30
Total)
Thatcher Sump 120 / 120 30 / 30
Output:
Liquid stool amount 200 / 200 100 / 100
Colostomy 200 / 200 100 / 100
Drain Output (Total) 340 / 370 805 / 805
Right Lower Abdomen [place]- 340 / 370 805 / 805
Vo
Urine, Mason 4100 / 4300 5610 / 5610 510 / 510
Lab Results
06/15/25 04:25
Physical Exam
-
General: Other (intubated and sedated)
Abdomen: Soft and Non Distended
Incision: Other (some purulent drainage at the lower incision, q-tip probed into wound, no further pus emitted )
--- NOTE | 2025-06-15 11:25 | PTCARENOTE ---
bronch completed at bedside, copious secretions retreived by Cook Candy, spec sent by RT.post bronch patient pulse oximeter 80's. 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 oxygen increased by RT to 60%
[2025-06-15 12:05] LABS: Glucose - Point of Care 159 mg/dl (70-99)
[2025-06-15 12:15] LABS: Hematocrit 34.5 % (39.0-52.0); Hemoglobin 10.6 g/dL (13.0-18.0); Mean Corp Hgb Conc. 30.7 g/dL (33.0-37.0); Mean Corpuscular Volume 85.0 fL (80.0-94.0); Platelet Count 178 10^3/uL (130-400); Red Cell Dist. Width 15.0 % (11.5-14.5)
[2025-06-15 12:23] LABS: APTT 33.2 Sec (23.4-35.0)
--- NOTE | 2025-06-15 12:39 | W.PN.ID1 ---
Date of Service
Date of Service: June 15, 2025
Today's Communication
Continue Zosyn and Micafungin.
Assessment / Plan
# Purulent peritonitis
# Colonic inertia with megacolon; status post ex lap, decompression, colostomy, stool leakage into the abdomen requiring washout June 08, 2025
# Septic shock; now off pressor
# PNA
# Fever
# Leukocytosis worse
# VDRF
- 06/08/25 Exploratory laparotomy, lysis of adhesions, sigmoidectomy, decompression of right colon, abdominal washout, creation of end descending colostomy, umbilical hernia repair
- No OR cx
- Blood cultures pending; no growth to date
-06/14 Sputum cx Pseudomonas
-06/15 s/p bronch with airway clearance
- Continue Zosyn (d#5)
- Continue empiric micafungin (d#4).
- Trend temps, WBC. Follow cultures.
- Continue ICU support. Patient remains critically ill on vent; on pressor.
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
HFrEF
HTN
DM
Afib
HLD
Colonic Inertia / Dysmotility
Chronic opioid dependence
Advanced bilateral lower extremity venous insufficiency
Morbid obesity (BMI~43)
Chief Complaint
-: Clinical Sepsis
Subjective / Review of Systems
Remains intubated.
Vital Signs / Physical Exam
Vital Signs
Vital Signs
Temp Pulse Resp BP Pulse Ox
100.3 F 92 27 107/53 95
06/15/25 11:40 06/15/25 12:00 06/15/25 12:00 06/15/25 10:37 06/15/25 12:00
Selected Entries
06/15/25
10:00
Temp 101 F H
Physical Exam
Constitutional: Acutely Ill
Oropharyngeal: Other (ET tube in place.)
Cardiovascular: Regular Rate and S1/S2; Negative S3/S4
Pulmonary: Coarse and Other (On vent)
Gastrointestinal: Soft, Distended, Decreased Bowel Sounds and Other (ostomy loose dark brown stools; CHRISTINE with serosanguinous drainage; incision dressing dry.)
Genito-Urinary: Clear Urine
Extremities: Edema and Venous Insufficiency
Wound: Other (Anterior abdominal incision line with fred in place. Packing in areas of dehiscence.)
Objective Data
Lab Data
Lab Results
06/15/25 11:54
PT 17.4 Sec (11.4-14.6) H 06/09/25 00:01
INR 1.40 06/09/25 00:01
APTT 33.2 Sec (23.4-35.0) 06/15/25 11:54
Estimated Creat Clear > 125 ml/min 06/15/25 04:25
Lactic Acid 0.9 mmol/L (0.7-2.0) 06/09/25 00:01
Total Bilirubin 0.5 mg/dl (0.2-1.3) 06/15/25 04:25
AST 24 U/L (17-59) 06/15/25 04:25
ALT < 10 U/L (0-50) 06/15/25 04:25
Alkaline Phosphatase 86 U/L (38-126) 06/15/25 04:25
C-Reactive Protein > 270.00 mg/L (0.0-10.00) H 06/11/25 03:22
Most recent labs reviewed.
Micro Results:
06/13/25 12:07 Blood Culture - Preliminary
Blood/Venous No Growth in 48 hours- Final report to follow
06/13/25 12:07 Blood Culture - Preliminary
Blood/Venous No Growth in 48 hours- Final report to follow
06/15/25 10:08 Respiratory Culture - Pending
Bronch Left Lower Lobe Gram Stain - Preliminary
06/15/25 10:08 Fungal Culture - Preliminary
Bronch Left Lower Lobe Culture in progress.
Positive cultures are reported as soon as detected.
Final report to follow in four to five weeks.
06/11/25 09:27 Blood Culture - Preliminary
Blood/Venous No Growth in 4 days- Final report to follow
06/11/25 09:59 Blood Culture - Preliminary
Blood/Venous No Growth in 4 days- Final report to follow
06/15/25 10:08 Acid Fast Bacilli Smear - Pending
Bronch Left Lower Lobe Acid Fast Bacilli Culture - Pending
06/14/25 11:22 Respiratory Culture - Preliminary
Tracheal Aspirate Pseudomonas species
Gram Stain - Preliminary
06/06/25 07:57 MRSA Screen - Final
Nose No Methicillin Resistant Staphylococcus aureus isolated.
Imaging:
06/15/25 CXR: No pneumothorax status post bronchoscopy. Progressive homogeneous increased retrocardiac opacity. Suspect mild left perihilar and right infrahilar opacity which could represent atelectasis or pneumonia.
06/13/25 CT a/p: Very limited study. Small volume fluid in the abdomen, particularly in the left abdomen mildly complex. As this fluid is incompletely included, it cannot be determined whether this totally represents likely free fluid or combination
of free fluid and abnormal focal fluid collection. Additional small abnormal focal fluid collections cannot be excluded on the basis of this markedly limited study. Apparent recent prior partial sigmoidectomy with large volume stool seen in the
residual sigmoid colon and rectum.
06/10 CXR: Stable CHF and bibasilar atelectasis and/or pneumonia.
06/08/25 CXR: Diffuse marked colonic dilation. Measurement of caliber of the upper colon is slightly greater then obstruction series of June 07, 2025. Multiple air-fluid levels compatible with stasis. Moderate amount of stool within the inferior
aspect of the right colon as well as within the rectum. No gross evidence for free intraperitoneal air.
06/05/25 CT a/p: Significant gaseous distention of a large portion of the colon. This contributes to limitation of this examination, as the patient cannot be fully included on the [id number] of the CT scanner. If there can be some distal colonic
decompression, repeat scan could be considered, when hopefully the patient could be entirely included on the [id number] of the exam. No gross evidence for free intraperitoneal air. Patchy parenchymal opacity within the visualized lower lung, most
likely atelectasis. Pneumonia is a differential consideration, felt to be less likely based on morphologic appearance.
--- NOTE | 2025-06-15 12:41 | W.PN.HOSP.TC ---
Addendum entered and electronically signed by Chase Albarran DO 06/16/25 12:25:
Correction/additional diagnoses:
- Acute on chronic HFrEF (not chronic HFpEF)
- Hypokalemia mild, resolved
Original Note:
Today's Communication/Plan
-
Assessment / Plan
Assessment / Plan
General: Intubated and sedated, diaphoretic
HEENT: NormoCephalic, ETT and OGT in place
Respiratory: Mechanical breath sounds bilaterally, equal chest rise
Cardiac: S1/S2 and Regular Rhythm; No Rub or Gallop
GI: Left-sided colostomy with brown output, CHRISTINE drain with sanguinous output, midline incision with surgical dressing clean dry intact
Musculoskeletal: No Edema, no deformity
Skin: Warm and dry
: Mason in place
Neuro: Sedated, responds to noxious stimuli
Psych: Unable to assess
Impression:
Mr. Knapp is a 64-year-old male with medical history of HFpEF, A-fib/flutter, IDDM, obesity, chronic pain with subsequent opioid dependence, and chronic constipation with colonic dysmotility who presented with shortness of breath, abdominal
bloating and discomfort, constipation. His last bowel movement was 2 weeks prior to arrival. He is having increasing difficulty breathing due to worsening abdominal distention. He has had multiple similar episodes since September 2024 and has
previously required decompression. He has been treated with enemas and neostigmine previously. Abdominal imaging showed significant colonic distention with air-filled loops of bowel. He also had patchy parenchymal opacities within the mid to
lower lungs. He was mildly hypoxic and has been started on antibiotics. He has remained afebrile with a mild leukocytosis of just over 12,000. He has been admitted for further evaluation and management.
Seen by GI, failed neostigmine, enema, status post nonsuccessful decompressive flexible sigmoidoscopy.
Surgery team consulted.
s/p Exploratory laparotomy, lysis of adhesions, sigmoidectomy, decompression of right colon, abdominal washout, creation of end descending colostomy, umbilical hernia repair on 06/08
admitted to ICU postoperatively, intubated.
Patient had fever,Infectious disease consult, started on zosyn.
Patient was still running fever, added micafungin.
CT chest: New right lower lobe consolidation with air bronchograms, atelectasis versus pneumonia, Possible small bilateral pleural effusions.
CT abdomen/pelvis shows: Small volume fluid in the abdomen, particularly in the left abdomen mildly complex. As this fluid is incompletely included, it cannot be determined whether this totally represents likely free fluid or combination of free
fluid and abnormal focal fluid collection. Additional small abnormal focal fluid collections cannot be excluded on the basis of this markedly limited study
Patient received Lasix.
Assessment/Plan:
Colonic dysmotility/ileus:
- Abdomen remained significantly distended despite multiple medical enemas and subsequent bowel movements
- Upgraded to IMU 06/07, pushed 4 mg neostigmine around 1:30 PM, no significant peristaltic response
- Ultimately required surgical intervention, brought to the OR 06/08 for ex lap with lysis of adhesions and sigmoidectomy with end descending colostomy, decompression of right colon, abdominal washout and umbilical hernia repair
- ICU postoperatively, intubated
Septic shock, requiring pressors:
- Developed fevers postoperatively, started on Zosyn and vasopressors
- Unclear if source is abdominal, pulmonary, or both
- ID following, added micafungin
Acute hypoxic respiratory failure (currently intubated in the ICU postoperatively)
- Continue mechanical ventilation
- Persistent copious thick secretions and left lower lobe volume loss
- Underwent bronchoscopy with BAL left lower lobe today 06/15 by instrumentation manager
- Follow-up cultures
- Continue antimicrobial coverage with Zosyn and micafungin
paroxismal A-fib/flutter:
- Currently rate controlled, continue home metoprolol and amiodarone
- Holding home Xarelto .
IDDM:
- Insulin drip.
HFpEF:
- Chronic, currently compensated
- Continue beta-blockade with home metoprolol succinate 100 mg at night
- Holding home Lasix , spironolactone, monitor daily weights
- No need for afterload reduction due to borderline hypotension
CODE STATUS: Full code
DVT prophylaxis: hold Xarelto
Diet: TPN
Disposition: Continue management in the ICU.
Total time spent on today's encounter was 60 minutes which included time spent in counseling the patient/family regarding diagnosis and treatment plan as listed above, goals of care, and symptom management. Case was discussed with nursing staff,
specialists, and care coordinators/case management. All labs and imaging personally reviewed by me. Remainder the time spent in detailed review of previous records, lab data, imaging, and other medical provider documentation.
Anticipated Discharge: > 48 hours
Subjective/Interval History
-
Date of Service: June 15, 2025
Patient was seen and examined at bedside this morning. Remains critically ill and on vasopressors.
Objective Data
-
Labs:
Laboratory Results
06/15/25 06/15/25 06/15/25
04:25 11:54 16:00
WBC 20.1 H 22.2 H
Hgb 9.8 L 10.6 L
Hct 31.9 L 34.5 L
Plt Count 155 D 178
APTT 33.2
HCO3 36.7 H
Sodium 142 Pending
Potassium 3.3 L Pending
Chloride 104 Pending
Carbon Dioxide 36 H Pending
BUN 22 H Pending
Creatinine 0.5 L Pending
Glucose 117 H Pending
Calcium 8.2 L Pending
Total Bilirubin 0.5
AST 24
ALT < 10
Alkaline Phosphatase 86
Vital Signs:
Vital Signs
Temp Pulse Resp BP Pulse Ox
100.3 F 92 27 107/53 95
06/15/25 11:40 06/15/25 12:00 06/15/25 12:00 06/15/25 10:37 06/15/25 12:00
I&O
06/14/25 06/15/25 06/16/25
06:59 06:59 06:59
Intake Total 4494.0 / 4609.7 3983.3 / 4125.6 1185.7 / 1185.7
Output Total 4640 / 4870 6515 / 6515 2460 / 2460
Balance -146.0 / -260.3 -2531.7 / -2389.4 -1274.3 / -1274.3
Review of Systems
-
Unable to obtain full review of systems at this time due to: Patient Intubation
Physical Exam
-
General: Intubated
[2025-06-15] MEDS: HEPARIN 25000 UNITS/250 ML IV (12:47)
[2025-06-15] MEDS: HEPARIN 4000 UNITS IV (12:48)
--- NOTE | 2025-06-15 13:43 | PN.DE.MGMTRT ---
Insulin Management
- -
06/15/2025 Diabetes Management Consult
Patient admitted 06/05 with c/o difficulty breathing. PMH 5 weeks of constipation with abdominal distention, HTN, afib, chf. Prior to admission was taking lantus 24 units daily with novolog 20 units AC and Farxiga 5 mg daily. A1C on admission
7.1%, cr today .5, eGFR > 60.
Patient is currently intubated and sedated. Information obtained from chart and patient nurse and pharmacist. Patient s/p OR 06/08 for lysis of adhesions, sigmoidectomy, with end descending colostomy. Currently receiving TPN. Currently receiving
critical care glycemic protocol which was started 06/12.
Patient has required 8 to 10 units of insulin per hour. Will continue insulin infusion. Will follow for readiness to transition to subcutaneous insulin.
Discussed with nurse
Diabetes History
- -
Pre-Admission Diabetes Regimen
06/15/25
04:25
Creatinine 0.5 L
Insulin Pump Settings
IP Diabetes Regimen
06/14/25 06/14/25 06/14/25
14:09 15:02 16:07
Glucose
POC Glucose 233 H 183 H 179 H
06/14/25 06/14/25 06/14/25
16:56 18:01 18:56
Glucose
POC Glucose 167 H 135 H 126 H
06/14/25 06/14/25 06/15/25
20:01 22:01 00:00
Glucose
POC Glucose 153 H 118 H 123 H
06/15/25 06/15/25 06/15/25
02:02 04:01 04:25
Glucose 117 H
POC Glucose 117 H 116 H
06/15/25 06/15/25 06/15/25
05:58 07:01 07:51
Glucose
POC Glucose 121 H 117 H 133 H
06/15/25 06/15/25 06/15/25
09:00 10:02 11:53
Glucose
POC Glucose 151 H 126 H 159 H
Patient Education
[2025-06-15 14:16] LABS: Glucose - Point of Care 185 mg/dl (70-99)
[2025-06-15 15:07] LABS: Glucose - Point of Care 151 mg/dl (70-99)
--- NOTE | 2025-06-15 17:10 | PTCARENOTE ---
Addendum entered by Lynsey Pete RN 06/15/25 18:36:
k rider infusing,less ectopy since initiation of K rider
Original Note:
patient reassessed, complete care given, did not tolerate turning for skin care, desaturated. respiratory distress. fentanyl bolus given, prop and fentanyl gtts per work list. suctions for thick segovia bloody secretions. remains diaphoretic. RT
adjusted vent, fio2. continues to diurese clear yellow urine. labs sent and pending. in and out of bigeminal rhythm. cyber threat analyst updated. mag added to bmp
[2025-06-15 17:15] LABS: Blood Urea Nitrogen 23 mg/dl (9-20); Calcium 8.2 mg/dl (8.4-10.2); Carbon Dioxide 38 mmol/L (22-30); Chloride 101 mmol/L (98-107); Estimated Creatinine Clearance > 125 ml/min; Glucose 138 mg/dl (70-99); Potassium 3.7 mmol/L (3.5-5.1); Sodium 140 mmol/L (135-145); eGFR > 60.00
[2025-06-15 17:30] LABS: Magnesium 1.9 mg/dl (1.6-2.3)
[2025-06-15 17:48] LABS: Glucose - Point of Care 146 mg/dl (70-99)
[2025-06-15 18:51] LABS: APTT 38.4 Sec (23.4-35.0)
[2025-06-15 19:47] LABS: Glucose - Point of Care 135 mg/dl (70-99)
[2025-06-15] MEDS: Parenteral Nutrition, Central 1640 IV (20:20)
--- NOTE | 2025-06-15 20:36 | PTCARENOTE ---
Pt received start of shift, HR SR w/ occasional PACs on telemetry. #8 ETT @ 25cm, vent settings as follows: AC 20/500/50%/+8. POX 93-95%. PRN fent bolus based on CPOT - see MAR. OGT @ 71cm at the lip, connected to LIS. Hypoactive BS present in all
quadrants. Gtts infusing as ordered and documented. Colostomy w/ small amount brown stool. CHRISTINE output serous. Small amount drainage bottom of abdominal incision.
[2025-06-15] MEDS: LIPITOR 40 MG TUBE (21:12)
[2025-06-15] MEDS: PACERONE 200 MG TUBE (21:12)
[2025-06-15 21:40] LABS: Glucose - Point of Care 127 mg/dl (70-99)
[2025-06-15 23:40] LABS: Glucose - Point of Care 132 mg/dl (70-99)
[2025-06-16] MEDS: SUBLIMAZE 100 IV ×3 (00:54→15:42)
--- NOTE | 2025-06-16 01:12 | PTCARENOTE ---
Pt w/ elevated temp - PRN ofirmev (see MAR). Ice packs placed on pt and fan in room. PRN fent bolus for pain - see JAN. CHRISTINE continuing to output serous/serosanguineous drainage. Mason draining yellow urine. Suctioning ET tube for moderate amount
thick segovia/bloody secretions. No further changes in assessment.
[2025-06-16 01:23] LABS: APTT 37.4 Sec (23.4-35.0)
[2025-06-16 01:49] LABS: Glucose - Point of Care 144 mg/dl (70-99)
[2025-06-16] MEDS: LEVOPHED 250 IV ×3 (02:32→17:52)
[2025-06-16 03:01] LABS: B.E. 12.4 mmol/L; HCO3 38.9 mmol/L (21-28); O2 Saturation % 98.7 % (94-98); PCO2 60 mmHg (35-48); PO2 91 mmHg (83-108)
[2025-06-16] MEDS: DIPRIVAN 100 IV ×7 (03:06→23:28)
[2025-06-16 03:07] LABS: Hematocrit 33.1 % (39.0-52.0); Hemoglobin 10.1 g/dL (13.0-18.0); Mean Corp Hgb Conc. 30.5 g/dL (33.0-37.0); Mean Corpuscular Volume 84.7 fL (80.0-94.0); Platelet Count 208 10^3/uL (130-400); Red Cell Dist. Width 15.1 % (11.5-14.5)
[2025-06-16 03:31] LABS: Blood Urea Nitrogen 24 mg/dl (9-20); Calcium 8.3 mg/dl (8.4-10.2); Carbon Dioxide 37 mmol/L (22-30); Chloride 103 mmol/L (98-107); Estimated Creatinine Clearance > 125 ml/min; Glucose 139 mg/dl (70-99); Magnesium 2.0 mg/dl (1.6-2.3); Potassium 4.1 mmol/L (3.5-5.1); Sodium 141 mmol/L (135-145); eGFR > 60.00
[2025-06-16 03:39] LABS: Glucose - Point of Care 143 mg/dl (70-99)
[2025-06-16] MEDS: OFIRMEV 100 IV ×2 (03:49→09:19)
[2025-06-16] MEDS: HYDROPHOR 1 APPLIC TOPICAL (04:20)
[2025-06-16] MEDS: SUBLIMAZE 50 MCG IV ×6 (04:57→20:35)
[2025-06-16] MEDS: ZOSYN 100 IV ×4 (05:00→23:28)
[2025-06-16] MEDS: NOVOLIN R INSULIN INFUSION 100 IV ×2 (05:14→15:43)
[2025-06-16 05:50] LABS: Glucose - Point of Care 140 mg/dl (70-99)
[2025-06-16 06:00] VITALS: BMI 40.0
--- NOTE | 2025-06-16 06:33 | PTCARENOTE ---
PRN fent bolus for pain control - see JAN. PRN ofirmev for fever - see JAN. Leg/foot wound care completed. On turning and repositioning pt, pt POX slow to recover. Suctioned for large amount segovia/ bloody thick secretions.
[2025-06-16 07:39] LABS: Glucose - Point of Care 127 mg/dl (70-99)
[2025-06-16] MEDS: SODIUM CHLORIDE 3% FOR INHALATION 1 VIAL INH ×3 (07:46→20:04)
[2025-06-16] MEDS: HEPARIN 25000 UNITS/250 ML IV ×2 (07:51→21:53)
[2025-06-16] MEDS: PROTONIX IV 40 MG IV (07:55)
[2025-06-16] MEDS: SUBUTEX 4 MG SL (07:56)
[2025-06-16] MEDS: NSS (PRESERVATIVE FREE) 10 ML IV (07:56)
[2025-06-16 07:59] LABS: APTT 45.4 Sec (23.4-35.0)
--- NOTE | 2025-06-16 08:57 | PTCARENOTE ---
report received, assessments per work list. when lifting patient up in bed with ceiling luep lift, patient sats 80's. increased work of breathing. not tolerating turning or repositioning due to respiratory status. oxygen titration per RT.
senior field service engineer updated. unable to complete full skin assessments due to inability to turn patient. fentanyl,propofol, Levophed, heparin and glycemic insulin per work list. monitor nsr with occasional bigeminal pvc. ogt in place, scant drainage. + bowel
sounds. small amount brown soft stool in ostomy. midline abdominal dressing with moderate brown serous drainage from distal portion. surgery in to assess. incision redressed. jorge to bulb, draining serous fluid. morales catheter in place draining clear
yellow urine. restraints maintained for patient safety. patient opens eyes but does not follow commands. rotation and percussion per orders. ett suctioned for moderate amount segovia bloody secretions, diminished breath sounds 1/3 up on left, coarse
breath sounds bilaterally. copious clear oral secretions.
[2025-06-16 09:35] LABS: Glucose - Point of Care 132 mg/dl (70-99)
--- NOTE | 2025-06-16 09:41 | W.PN.ID1 ---
Date of Service
Date of Service: June 16, 2025
Today's Communication
Continue current abx's
Assessment / Plan
# Purulent peritonitis
# Colonic inertia with megacolon; status post ex lap, decompression, colostomy, stool leakage into the abdomen requiring washout June 08, 2025
# Septic shock; on pressor
# PNA
# Fever - resolving
# Leukocytosis worse
# VDRF
- 06/08/25 Exploratory laparotomy, lysis of adhesions, sigmoidectomy, decompression of right colon, abdominal washout, creation of end descending colostomy, umbilical hernia repair
- No OR cx
- Blood cultures pending; no growth to date
-06/[address] a/p: limited study but no obvious abscess
-06/14 Sputum cx Pseudomonas, sensitivities pending
-06/15 s/p bronch with airway clearance; cx pendding
- Continue Zosyn (d#6)
- Continue empiric micafungin (d#5).
- Trend temps, WBC. Follow cultures.
- Continue ICU support. Patient remains critically ill on vent
# Conditions C[employer] AND WHEAT [employer]ER
HFrEF
HTN
DM
Afib
HLD
Colonic Inertia / Dysmotility
Chronic opioid dependence
Advanced bilateral lower extremity venous insufficiency
Morbid obesity (BMI~43)
Chief Complaint
-: Clinical Sepsis and Other (Purulent peritonitis)
Subjective / Review of Systems
On vent.
Vital Signs / Physical Exam
Vital Signs
Vital Signs
Temp Pulse Resp BP Pulse Ox
99.8 F 78 25 107/53 97
06/16/25 08:00 06/16/25 07:48 06/16/25 07:48 06/15/25 10:37 06/16/25 09:20
Physical Exam
Constitutional: Acutely Ill
Cardiovascular: Regular Rate and S1/S2
Pulmonary: Coarse and Other (on vent)
Gastrointestinal: Soft, Non Tender, Non Distended and Other (colostomy: soft stool, RLQ CHRISTINE drain serosanguinous output; Dressings dry)
Genito-Urinary: Mason and Clear Urine
Extremities: Edema and Venous Insufficiency (BLE)
Objective Data
Lab Data
Lab Results
06/16/25 02:53
06/16/25 02:53
PT 17.4 Sec (11.4-14.6) H 06/09/25 00:01
INR 1.40 06/09/25 00:01
APTT 45.4 Sec (23.4-35.0) H 06/16/25 07:29
Estimated Creat Clear > 125 ml/min 06/16/25 02:53
Lactic Acid 0.9 mmol/L (0.7-2.0) 06/09/25 00:01
Total Bilirubin 0.5 mg/dl (0.2-1.3) 06/15/25 04:25
AST 24 U/L (17-59) 06/15/25 04:25
ALT < 10 U/L (0-50) 06/15/25 04:25
Alkaline Phosphatase 86 U/L (38-126) 06/15/25 04:25
C-Reactive Protein > 270.00 mg/L (0.0-10.00) H 06/11/25 03:22
Most recent labs reviewed.
Micro Results:
06/14/25 11:22 Respiratory Culture - Preliminary
Tracheal Aspirate Pseudomonas species
Gram Stain - Preliminary
06/13/25 12:07 Blood Culture - Preliminary
Blood/Venous No Growth in 48 hours- Final report to follow
06/13/25 12:07 Blood Culture - Preliminary
Blood/Venous No Growth in 48 hours- Final report to follow
06/15/25 10:08 Respiratory Culture - Pending
Bronch Left Lower Lobe Gram Stain - Preliminary
06/15/25 10:08 Fungal Culture - Preliminary
Bronch Left Lower Lobe Culture in progress.
Positive cultures are reported as soon as detected.
Final report to follow in four to five weeks.
06/11/25 09:27 Blood Culture - Preliminary
Blood/Venous No Growth in 4 days- Final report to follow
06/11/25 09:59 Blood Culture - Preliminary
Blood/Venous No Growth in 4 days- Final report to follow
06/15/25 10:08 Acid Fast Bacilli Smear - Pending
Bronch Left Lower Lobe Acid Fast Bacilli Culture - Pending
06/06/25 07:57 MRSA Screen - Final
Nose No Methicillin Resistant Staphylococcus aureus isolated.
Imaging:
06/16/25 CXR: There is moderate airspace disease in right lower lung field concerning for pneumonia. There is obscuration of the left hemidiaphragm suggesting left lower lobe pneumonia
06/15/25 CXR: No pneumothorax status post bronchoscopy. Progressive homogeneous increased retrocardiac opacity. Suspect mild left perihilar and right infrahilar opacity which could represent atelectasis or pneumonia.
06/13/25 CT a/p: Very limited study. Small volume fluid in the abdomen, particularly in the left abdomen mildly complex. As this fluid is incompletely included, it cannot be determined whether this totally represents likely free fluid or combination
of free fluid and abnormal focal fluid collection. Additional small abnormal focal fluid collections cannot be excluded on the basis of this markedly limited study. Apparent recent prior partial sigmoidectomy with large volume stool seen in the
residual sigmoid colon and rectum.
06/10 CXR: Stable CHF and bibasilar atelectasis and/or pneumonia.
06/08/25 CXR: Diffuse marked colonic dilation. Measurement of caliber of the upper colon is slightly greater then obstruction series of June 07, 2025. Multiple air-fluid levels compatible with stasis. Moderate amount of stool within the inferior
aspect of the right colon as well as within the rectum. No gross evidence for free intraperitoneal air.
06/05/25 CT a/p: Significant gaseous distention of a large portion of the colon. This contributes to limitation of this examination, as the patient cannot be fully included on the [id number] of the CT scanner. If there can be some distal colonic
decompression, repeat scan could be considered, when hopefully the patient could be entirely included on the [id number] of the exam. No gross evidence for free intraperitoneal air. Patchy parenchymal opacity within the visualized lower lung, most
likely atelectasis. Pneumonia is a differential consideration, felt to be less likely based on morphologic appearance.
[2025-06-16] MEDS: MYCAMINE 105 MG IV (09:42)
--- NOTE | 2025-06-16 10:20 | PTCARENOTE ---
patient vent change mode to ASV, patient now will make eye contact and follow simple commands. stool from ostomy thick brown. TT to surgical PA to update. no new orders at this time
--- NOTE | 2025-06-16 10:31 | PN.CDI ---
CDI
- -
CDI:
Physician Documentation Request
Admit Date: 06/06/25 02:11
Dear Doctor Avis,
Please review the following and provide your response in the progress notes.
Clinical Indicators:
Pt admitted with Colonic Dysmotility/megacolon s/p exp lap /sigmoidectomy and colostomy creation on 06/08
There is potentially conflicting documentation in the record regarding the type/acuity of CHF.
Last ECHO 04/28/25, ' ..moderately reduced systolic function; left ventricular ejection fraction is 35%...'
Documented per progress notes 06/13-06/15,' HFpEF Chronic, currently compensated Continue beta-blockade with home metoprolol succinate 100 mg at night Holding home Lasix , spironolactone, monitor daily weights...'
Documented per faculty instructor notes 06/13-06/15,' Acute on chronic heart failure with reduced ejection fraction/atrial flutter Echocardiogram reviewed 04/28/2025: Ejection fraction 35%. Global hypokinesis. Mild LVH. Stage I diastolic dysfunction.
Mildly dilated right ventricle. Mild aortic stenosis. Mild TR. Estimated pulmonary artery pressure 50 to 55 mmHg.Pitting edema noted both bilateral upper and lower extremities. Chest x-ray suggestive of increasing congestion Lasix 40 mg IV stat.
...'
Per JAN pt has gotten IV Lasix 40 mg x 3 everyday from 06/13-06/15/BNP 06/13 [id number]
Due to potentially conflicting documentation please clarify the type/acuity of CHF being treated/monitored:
Acute on Chronic Systolic CHF
Chronic Diastolic CHF no change in current documentation
Other ( please specify)
Use of terms such as suspected, likely, concern for, or probable (associated with a specific diagnosis that is being evaluated, monitored, or treated as if it exists) are acceptable and can be coded in the inpatient setting, when documented at the
time of discharge.
Thank you,
Alia Banerjee RN
CDI Specialist
[place] [facility]
Please use your independent medical judgment in providing your response.
--- NOTE | 2025-06-16 10:42 | PN.CDI ---
CDI
- -
CDI:
Physician Documentation Request
Admit Date: 06/06/25 02:11
Dear Doctor Avis,
Please review the following and provide your response in the progress notes.
Clinical Indicators:
Pt admitted with Colonic Dysmotility/megacolon s/p exp lap /sigmoidectomy and colostomy creation on 06/08
Potassium levels below/ Pt did get 06/13 KCL 40 MEQ / 06/15 KCL 40 MEQ IV 06/14 & 06/15
06/14/25 06/15/25
03:18 04:25
Potassium 3.3 L 3.3 L
Based on the above, could you clarify in the progress notes, the appropriate diagnosis, if significant, that supports the above abnormalities and additional evaluation, monitoring and/or treatment rendered:
Hypokalemia
Abnormal lab value
Other ( please specify)
Use of terms such as suspected, likely, concern for, or probable (associated with a specific diagnosis that is being evaluated, monitored, or treated as if it exists) are acceptable and can be coded in the inpatient setting, when documented at the
time of discharge.
Thank you,
Alia Banerjee RN
CDI Specialist
[place] [facility]
Please use your independent medical judgment in providing your response.
--- NOTE | 2025-06-16 10:53 | W.PN.INTV ---
Today's Communication / Plan
Recommendations
- Trial of ASV mode of ventilation, attempt SAT/SBT as tolerated
- Start Seroquel 50 nightly, follow-up EKG in a.m.
- Continue to wean Levophed as tolerated
- Follow-up chest x-ray and ABG in a.m.
Assessment
-
Assessment: 64-year-old male with a past medical history of cardiomyopathy, hypertension, DM type II, history of chronic opioid use due to chronic arthritis now on buprenorphine, history of ERASMO, venous insufficiency and chronic back pain who
presented with shortness of breath, abdominal distention. Found to have severe colonic distention. Initially treated with neostigmine, attempted sigmoidoscopy without attempt. Underwent exploratory laparotomy 06/08/2025-developed shock requiring
vasopressors and remained on mechanical ventilation. We were consulted on 06/09/2025.
Chronic conditions CHIEF WHARFINGER: Hypertension, BPH, DM type II, chronic back pain, cardiomyopathy, venous insufficiency, history of ERASMO, severe osteoarthritis, chronic pain management due to arthritis currently on buprenorphine in an effort to get off of
OxyContin/oxycodone,systolic cardiomyopathy.
06/16/2025 Overview: Patient currently intubated, 7.40 , current vent settings 500/20/60%/8. Continues to be febrile. MAP of 72, currently on Levophed at 8. Saturating 96%. Current infusions Levophed, TPN, heparin drip, insulin infusion,
fentanyl and propofol infusions. ET tube secretions significantly improved. Low volume ostomy tube output and CHRISTINE drain output noted.
Assessment and plan
#1. Acute hypoxemic respiratory failure post surgery complicated by VAP
- Initially due to abdominal distention requiring intubation, mechanical ventilation
- Left lower lobe dense consolidation, copious ET tube secretions noted, improving
- Continue broad-spectrum antibiotics, s/p bronchoscopy and BAL 06/16 with extensive suctioning of thick mucoid secretions in LLL
- Weaning attempts have been failing so far. Trial of ASV today.
- Follow-up chest x-ray and ABG in a.m.
#2. Septic shock suspected-source likely intraperitoneal and LLL pneumonia
- Continues to need pressor support, currently on Levophed
- Continue broad-spectrum antibiotics and antifungal per infectious disease service, micafungin and Zosyn infusing
- Follow-up on bronchoscopy and BAL results
- CT abdomen pelvis suboptimal to assess if patient has ongoing source of sepsis intraperitoneally
#3. Pseudoobstruction with megacolon, failed conservative management, s/p ex lap, POD#7
- S/p ex lap, sigmoidectomy and end colostomy, iatrogenic spillage of stool, peritonitis, umbilical hernia repair, 06/08/2025
- Continue IV Zosyn and micafungin
- Stool output noted in the ostomy bag
- N.p.o. currently, TPN infusing
#4. Acute on chronic heart failure with reduced ejection fraction, LVEF 35%, Stage I diastolic dysfunction
- Patient has been diuresing well with daily Lasix, hold diuretic today, will reassess in a.m., significantly improved pedal edema.
- Replace potassium
#5. Paroxysmal atrial flutter.
- DC subcu Lovenox, initiated heparin infusion, tolerating well without any bleeding
- History of cardioversion in January 2025
- Has been on amiodarone as well
#6. Pulmonary hypertension, estimated pulmonary artery systolic pressure 50-55
- Primarily group II PH related to underlying congestive heart failure
- Continue to optimize intravascular volume, keep saturations above 90%, no indication for vasodilator therapy
#7. DM type II with Hyperglycemia
- Continue insulin infusion
#8. Prolonged QTc
- Noted in the setting of hypokalemia, hypomagnesemia and Seroquel therapy
- Seroquel has since been discontinued, replacing both potassium and magnesium, QTc normal today
- Since QTc normal now, continued agitation noted with attempted SAT, trial of Seroquel 50 mg nightly, follow-up EKG in AM.
Other medical diagnoses:
#Morbid obesity
#Venous deficiency
#History of ERASMO
#Chronic pain management due to arthritis currently on buprenorphine in an effort to wean off of OxyContin/oxycodone
-
DVT prophylaxis: -heparin infusion
GI prophylaxis, pantoprazole
-
Prognosis is guarded
-
Critical care statement: A total of 48 minutes of critical care time was provided for this patient today. This includes management of unstable vital signs, evaluation of the patient at bedside, reviewing the patient's pertinent medical records
including ventilator settings, arterial blood gases, radiographs, microbiology, laboratory evaluations and discussion with primary team, critical care nursing, and respiratory therapy.

Data reviewed:
Chest x-ray 06/08/2025: Reviewed, ET tube in place. Left lower lobe airspace disease. Cardiomegaly
-
CT abdomen pelvis 06/05/2025:
The patient is significantly distended, and much of the abdominal and upper pelvic soft tissues extending anterior and to the left of the [id number], which limits evaluation, as it becomes difficult to confidently follow the loops of bowel.
There is distention of the rectum with air and stool, measuring 9.3 cm in diameter. There is marked distention of the sigmoid colon which extends into the right and central upper abdomen, with the sigmoid colon measuring up to 18 cm in diameter. The
sigmoid colon contains a moderate to large amount of stool, mainly inferiorly. There appears to be moderate distention of the rest of the visualized colon.
Small bowel loops are present, and do not appear to be significantly distended, similar appearance to prior examination.
Of note, the cecum cannot be confidently identified on the present examination
No gross evidence of free intraperitoneal air.
There is patchy parenchymal opacity within the visualized lower lungs, most likely atelectasis. A component of pneumonia is also possible, although felt to be less likely. There is no significant pleural effusion and no significant pericardial
effusion.
Coronary artery calcifications are present. Please correlate with symptoms of and risk factors for coronary artery disease, with further workup as clinically appropriate.
Of note, the stomach is not distended.
Subjective Dataa
Subjective Data
Date of Service:
Date of Service: June 16, 2025
Chief Complaint: Screening Unit Registered Nurse Follow Up (Septic shock/respiratory failure require mechanical ventilation)
Subjective:
Patient continues to be intubated, sedated and mechanically ventilated. Poorly tolerates SAT or SBT
Review of Systems
General: Unobtainable - Sedation
Objective Data
Data Reviewed
Vital Signs / I&O / Oxygen:
Vital Signs
Temp Pulse Resp BP Pulse Ox
100.5 F H 69 22 107/53 97
06/16/25 10:00 06/16/25 10:15 06/16/25 10:15 06/15/25 10:37 06/16/25 10:15
Intake and Output
06/15/25 06/16/25 06/17/25
06:59 06:59 06:59
Intake Total 3983.3 / 4125.6 4506.3 / 4668.1 883.2 / 883.2
Output Total 6515 / 6515 6490 / 6490 525 / 525
Balance -2531.7 / -2389.4 -1983.7 / -1821.9 358.2 / 358.2
SaO2 [ASV] 93
SaO2 [A/C] 92
SaO2 97
Nasal Cannula flow liters per 3
minute
Physical Exam
General: Comfortable
HEENT: Normocephalic
Cardiovascular: S1-S2 and Peripheral Edema (Significantly improving edema)
Respiratory: Crackles (Improving air entry in the left hemithorax) and ET Tube (Extensive copious secretions through ET tube)
GI: Soft, Distended, Other (Colostomy with stool output.) and Other (NG tube in place minimal drainage)
Neurology: Other (Currently sedated. ) and Other
Skin: Warm and Other ( lower extremity venous stasis, both extremities are wrapped.)
Labs/Micro/Reports
Lab Data
06/16/25 02:53
06/16/25 02:53
Laboratory Results
06/15/25 06/15/25 06/16/25
11:54 18:22 00:50
APTT 33.2 38.4 H 37.4 H
pH
pCO2
pO2
HCO3
O2 Delivery Level
06/16/25 06/16/25
02:53 07:29
APTT 45.4 H
pH 7.42
pCO2 60 H
pO2 91
HCO3 38.9 H
O2 Delivery Level
Microbiology
06/11/25 09:27 Blood/Venous Blood Culture - Final
No Growth - Final Report
06/11/25 09:59 Blood/Venous Blood Culture - Final
No Growth - Final Report
06/14/25 11:22 Tracheal Aspirate Respiratory Culture - Preliminary
Pseudomonas species
06/14/25 11:22 Tracheal Aspirate Gram Stain - Preliminary
06/13/25 12:07 Blood/Venous Blood Culture - Preliminary
No Growth in 48 hours- Final report to follow
06/13/25 12:07 Blood/Venous Blood Culture - Preliminary
No Growth in 48 hours- Final report to follow
06/15/25 10:08 Bronch Left Lower Lobe Gram Stain - Preliminary
06/15/25 10:08 Bronch Left Lower Lobe Fungal Culture - Preliminary
Culture in progress.
Positive cultures are reported as soon as detected.
Final report to follow in four to five weeks.
--- NOTE | 2025-06-16 11:07 | W.PN.CRS1 ---
Today's Communication / Plan
-
trickle tfs
continue TPN
Assessment/Plan
-
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
obstipation associated with megacolon. WBC 11.[address] showing gaseous distention of the colon, diameter of the sigmoid up to 18 cm in diameter. He received a dose of neostigmine, which failed. He underwent attempt at decompressive sigmoidoscopy,
but encountered too much stool. Due to refractory nature of his issue, we proceeded with surgery.
POD 8 exlap, sigmoidectomy, end-colostomy; iatrogenic spillage of stool - controlled and abdomen washed out, no colonic ischemia or perforation
Continues with fevers, VSS. VDRF
CT imaging on 06/13 limited as left side of body not well visualized. Left sided PNA visualized, copious secretions.
06/15- Bronch by intensive care team
WBC: 24.5 (22.2), Hgb 10.1 (10.6)
tmax: 100.5
Plan
� Wean vent as tolerated; appreciate ICU team
� Okay for hep gtt from our standpoint
- Will reach out to nutrition regarding trickle TFs
� Continue n.p.o. with OGT; cont TPN. Replace electrolytes. Remains on insulin gtt
� Appreciate ID, on zosyn with addition of micafungin
� Continue Mason, strict I&O's
- Wean pressers as able
� Appreciate coal trimmer and primary
Subjective Data
Procedure
06/08/25- Exploratory laparotomy, lysis of adhesions, sigmoidectomy, decompression of right colon, abdominal washout, creation of end descending colostomy, umbilical hernia repair
Subjective Data
Date of Service: June 16, 2025
Patient remains intubated and sedated.
Objective Data
-
Vital Signs
Temp Pulse Resp BP Pulse Ox
100.5 F H 69 22 107/53 97
06/16/25 10:00 06/16/25 10:15 06/16/25 10:15 06/15/25 10:37 06/16/25 10:15
Intake & Output
06/15/25 06/16/25 06/17/25
06:59 06:59 06:59
Intake Total 3983.3 / 4125.6 4506.3 / 4668.1 883.2 / 883.2
Output Total 6515 / 6515 6490 / 6490 525 / 525
Balance -2531.7 / -2389.4 -1983.7 / -1821.9 358.2 / 358.2
Intake:
IV fluids (Total) 1738.3 / 1812.6 2130.3 / 2224.1 381.2 / 381.2
Fentanyl gtt 237.5 / 247.5 275.0 / 287.5 50.0 / 50.0
Insulin 276 / 283 222 / 232 42 / 42
Levophed gtt 620 / 650 817.8 / 847.8 120 / 120
Propofol 604.8 / 632.1 617.5 / 644.8 109.2 / 109.2
heparin 198 / 212 60 / 60
IV piggybacks 425 / 425 700 / 700 200 / 200
TPN/PPN 1700 / 1768 1496 / 1564 272 / 272
Amount instilled into GI Tube ( 120 / 120 180 / 180 30 / 30
Total)
[place] Sump 120 / 120 180 / 180 30 / 30
Output:
Liquid stool amount 100 / 100
Colostomy 100 / 100
Drain Output (Total) 805 / 805 475 / 475 50 / 50
Right Lower Abdomen [place]- 805 / 805 475 / 475 50 / 50
Vo
Gastrointestinal tube output ( 0 / 0
Total)
[place] Sump 0 / 0
Urine, Mason 5610 / 5610 5890 / 5890 475 / 475
Urine, Voided 125 / 125
Lab Results
06/16/25 02:53
06/16/25 02:53
Physical Exam
-
General: Other (intubated and sedated)
Abdomen: Distended (mild)
Wound: Dressing in Place and Other (some purulent drainage at the lower incision, q-tip probed into wound, no further pus emitted )
[2025-06-16 11:32] LABS: Glucose - Point of Care 146 mg/dl (70-99)
--- NOTE | 2025-06-16 12:02 | PTCARENOTE ---
reassessed. care provided, patient pulse oximeter 80's with repositioning with lupe lift. with propofol decreased, patient restless, desaturation to the 80's. unable to tolerate turning for assessments due to respiratory status. medicated with prn
fentanyl, propofol increased per work list. lateral rotation, percussion continues. ett suctions for moderate amount segovia sputum.
--- NOTE | 2025-06-16 12:05 | PN.DE.MGMTRT ---
Insulin Management
- -
06/16/2025 Diabetes Management Consult Follow up
Patient admitted 06/05 with c/o difficulty breathing. Diabetes management consult 06/15. PMH 5 weeks of constipation with abdominal distention, HTN, afib, chf. Prior to admission was taking lantus 24 units daily with novolog 20 units AC and Farxiga 5
mg daily. A1C on admission 7.1%, cr today .5, eGFR > 60.
Patient is currently intubated and sedated. Information obtained from chart and patient nurse and pharmacist. Patient s/p OR 06/08 for lysis of adhesions, sigmoidectomy, with end descending colostomy. Currently receiving TPN. Currently receiving
critical care glycemic protocol which was started 06/12.
Patient has required 8 to 10 units of insulin per hour, glucose range 127 to 146. Will continue insulin infusion. Will follow for readiness to transition to subcutaneous insulin.
Discussed with nurse
Diabetes History
- -
Type of Diabetes: 2 requiring insulin
Pre-Admission Diabetes Regimen
06/15/25 06/16/25
16:21 02:53
Creatinine 0.6 L 0.5 L
Insulin Pump Settings
IP Diabetes Regimen
06/15/25 06/15/25 06/15/25
11:53 14:04 14:56
Glucose
POC Glucose 159 H 185 H 151 H
06/15/25 06/15/25 06/15/25
16:21 17:36 19:35
Glucose 138 H
POC Glucose 146 H 135 H
06/15/25 06/15/25 06/16/25
21:28 23:29 01:38
Glucose
POC Glucose 127 H 132 H 144 H
06/16/25 06/16/25 06/16/25
02:53 03:28 05:38
Glucose 139 H
POC Glucose 143 H 140 H
06/16/25 06/16/25 06/16/25
07:28 09:24 11:20
Glucose
POC Glucose 127 H 132 H 146 H
Patient Education
--- NOTE | 2025-06-16 13:00 | WOUNDNOTE ---
WON RN NOTE: Nurse Bety reports she changed pouch only today due to pancaking of stool, unable to see stoma. Stoma red and viable for brown stool. No leakage on wafer, supplies at bedside. Colostomy folder provided, no family in rm to do teaching,
patient remains intubated. Asked nurse to let family know they can review and ask questions next appliance change. No changes to wounds, nurse reports they look a little better. Will follow.
--- NOTE | 2025-06-16 13:34 | W.PN.HOSP.TC ---
Today's Communication/Plan
-
Assessment / Plan
Assessment / Plan
General: Intubated and sedated, diaphoretic
HEENT: NormoCephalic, ETT and OGT in place
Respiratory: Mechanical breath sounds bilaterally, equal chest rise
Cardiac: S1/S2 and Regular Rhythm; No Rub or Gallop
GI: Left-sided colostomy with brown output, CHRISTINE drain with serosanguineous output, midline incision with surgical dressing clean dry intact
Musculoskeletal: No Edema, no deformity
Skin: Warm and dry
: Mason in place
Neuro: Sedated, responds to noxious stimuli
Psych: Unable to assess
Impression:
Mr. Knapp is a 64-year-old male with medical history of HFpEF, A-fib/flutter, IDDM, obesity, chronic pain with subsequent opioid dependence, and chronic constipation with colonic dysmotility who presented with shortness of breath, abdominal
bloating and discomfort, constipation. His last bowel movement was 2 weeks prior to arrival. He is having increasing difficulty breathing due to worsening abdominal distention. He has had multiple similar episodes since September 2024 and has
previously required decompression. He has been treated with enemas and neostigmine previously. Abdominal imaging showed significant colonic distention with air-filled loops of bowel. He also had patchy parenchymal opacities within the mid to
lower lungs. He was mildly hypoxic and has been started on antibiotics. He has remained afebrile with a mild leukocytosis of just over 12,000. He has been admitted for further evaluation and management.
Seen by GI, failed neostigmine, enema, status post nonsuccessful decompressive flexible sigmoidoscopy.
Surgery team consulted.
s/p Exploratory laparotomy, lysis of adhesions, sigmoidectomy, decompression of right colon, abdominal washout, creation of end descending colostomy, umbilical hernia repair on 06/08
admitted to ICU postoperatively, intubated.
Patient had fever,Infectious disease consult, started on zosyn.
Patient was still running fever, added micafungin.
CT chest: New right lower lobe consolidation with air bronchograms, atelectasis versus pneumonia, Possible small bilateral pleural effusions.
CT abdomen/pelvis shows: Small volume fluid in the abdomen, particularly in the left abdomen mildly complex. As this fluid is incompletely included, it cannot be determined whether this totally represents likely free fluid or combination of free
fluid and abnormal focal fluid collection. Additional small abnormal focal fluid collections cannot be excluded on the basis of this markedly limited study
Patient received Lasix.
Assessment/Plan:
Colonic dysmotility/ileus:
- Abdomen remained significantly distended despite multiple medical enemas and subsequent bowel movements
- Upgraded to IMU 06/07, pushed 4 mg neostigmine around 1:30 PM, no significant peristaltic response
- Ultimately required surgical intervention, brought to the OR 06/08 for ex lap with lysis of adhesions and sigmoidectomy with end descending colostomy, decompression of right colon, abdominal washout and umbilical hernia repair
- ICU postoperatively, intubated
- Colorectal surgery following, starting trickle feeds, very little output from ostomy
- Continue TPN
Septic shock, requiring pressors:
- Developed fevers postoperatively, started on Zosyn and vasopressors
- Unclear if source is abdominal, pulmonary, or both
- Tracheal aspirate from 06/14 growing Pseudomonas, final cultures pending
- ID following, added micafungin
Acute hypoxic respiratory failure (currently intubated in the ICU postoperatively)
- Continue mechanical ventilation
- Persistent copious thick secretions and left lower lobe volume loss
- Underwent bronchoscopy with BAL left lower lobe 06/15 by shift mechanic
- Follow-up cultures
- Continue antimicrobial coverage with Zosyn and micafungin
- Started Seroquel 50 mg nightly monitor QTc
- Weaning trials as tolerated
paroxismal A-fib/flutter:
- Currently rate controlled, continue home metoprolol and amiodarone
- Holding home Xarelto .
IDDM:
- Insulin drip.
HFrEF:
- Acute on chronic chronic
- Continue beta-blockade with home metoprolol succinate 100 mg at night
- Has been given multiple doses of IV Lasix recently, currently holding Lasix , continue spironolactone, monitor daily weights
- No need for afterload reduction due to hypotension
CODE STATUS: Full code
DVT prophylaxis: hold Xarelto
Diet: TPN
Disposition: Continue management in the ICU.
Total time spent on today's encounter was 57 minutes which included time spent in counseling the patient/family regarding diagnosis and treatment plan as listed above, goals of care, and symptom management. Case was discussed with nursing staff,
specialists, and care coordinators/case management. All labs and imaging personally reviewed by me. Remainder the time spent in detailed review of previous records, lab data, imaging, and other medical provider documentation.
Anticipated Discharge: > 48 hours
Subjective/Interval History
-
Date of Service: June 16, 2025
Patient was seen and examined at bedside this morning. Remains critically ill, mechanically ventilated and on vasopressors.
Objective Data
-
Labs:
Laboratory Results
06/16/25 06/16/25 06/16/25
02:53 07:29 13:26
WBC 24.5 H
Hgb 10.1 L
Hct 33.1 L
Plt Count 208
APTT 45.4 H Pending
HCO3 38.9 H
Sodium 141
Potassium 4.1
Chloride 103
Carbon Dioxide 37 H
BUN 24 H
Creatinine 0.5 L
Glucose 139 H
Calcium 8.3 L
Vital Signs:
Vital Signs
Temp Pulse Resp BP Pulse Ox
99.8 F 78 21 107/53 96
06/16/25 12:11 06/16/25 12:15 06/16/25 12:15 06/15/25 10:37 06/16/25 12:15
I&O
06/15/25 06/16/2506/17/25
06:59 06:59 06:59
Intake Total 3983.3 / 4125.6 4506.3 / 4668.1 1493.4 / 1493.4
Output Total 6515 / 6515 6490 / 6490 875 / 875
Balance -2531.7 / -2389.4 -1983.7 / -1821.9 618.4 / 618.4
Review of Systems
-
Unable to obtain full review of systems at this time due to: Patient Intubation
Physical Exam
-
General: Intubated
[2025-06-16 13:35] LABS: Glucose - Point of Care 144 mg/dl (70-99)
[2025-06-16 13:56] LABS: APTT 52.4 Sec (23.4-35.0)
[2025-06-16 15:44] LABS: Glucose - Point of Care 121 mg/dl (70-99)
--- NOTE | 2025-06-16 16:14 | PTCARENOTE ---
patient reassessed, increased nonverbal pain cues. fentanyl bolus per prn orders. titrating propofol for vent management, pulse oximeter improved with vent changes but continues to drop pulse oximeter with stimulation. tolerating lateral rotation
and percussion, but unable to tolerate turning. ramp lead updated. unable to complete full skin assessments due to respiratory status.. ett suctions for moderate amounts. trickle feeds initiated per work list. small amount pasty stool in ostomy
bag.
[2025-06-16 17:44] LABS: Glucose - Point of Care 143 mg/dl (70-99)
[2025-06-16 19:44] LABS: Glucose - Point of Care 133 mg/dl (70-99)
[2025-06-16 20:08] LABS: APTT 55.6 Sec (23.4-35.0)
[2025-06-16] MEDS: Parenteral Nutrition, Central 1370 IV (20:23)
[2025-06-16] MEDS: PACERONE 200 MG TUBE (20:35)
[2025-06-16] MEDS: SEROQUEL 50 MG TUBE (20:35)
[2025-06-16] MEDS: LIPITOR 40 MG TUBE (20:35)
[2025-06-16] MEDS: TYLENOL ORAL SOLUTION 650 MG TUBE (20:37)
[2025-06-16 22:02] LABS: Glucose - Point of Care 116 mg/dl (70-99)
[2025-06-17] MEDS: SUBLIMAZE 100 IV ×4 (00:11→22:50)
[2025-06-17 00:21] LABS: Glucose - Point of Care 124 mg/dl (70-99)
[2025-06-17] MEDS: SUBLIMAZE 50 MCG IV ×5 (00:39→21:13)
--- NOTE | 2025-06-17 00:50 | PTCARENOTE ---
CHG bath complete, pt turned and sheets changed. pt desat to 86% and took awhile to recover...currently 97%. vent settings unchanged. morales care and oral care done. levo/prop/fent/heparin/insulin gtts continue. TF and TPN infusing. colostomy, morales,
OGT, CHRISTINE drain intact. midline incision dressing C/D/I. care ongoing.
[2025-06-17] MEDS: DIPRIVAN 100 IV ×8 (02:12→23:50)
[2025-06-17 02:22] LABS: B.E. 10.5 mmol/L; HCO3 38.1 mmol/L (21-28); O2 Saturation % 96.2 % (94-98); PCO2 69 mmHg (35-48); PO2 68 mmHg (83-108)
[2025-06-17 02:25] LABS: Hematocrit 31.6 % (39.0-52.0); Hemoglobin 9.5 g/dL (13.0-18.0); Mean Corp Hgb Conc. 30.1 g/dL (33.0-37.0); Mean Corpuscular Volume 86.8 fL (80.0-94.0); Platelet Count 197 10^3/uL (130-400); Red Cell Dist. Width 15.0 % (11.5-14.5)
[2025-06-17 02:28] LABS: Glucose - Point of Care 109 mg/dl (70-99)
[2025-06-17 02:36] LABS: APTT 64.0 Sec (23.4-35.0)
[2025-06-17 02:56] LABS: ALT (SGPT) < 10 U/L (0-50); AST (SGOT) 21 U/L (17-59); Albumin 2.2 g/dl (3.5-5.0); Alkaline Phosphatase 116 U/L (38-126); Blood Urea Nitrogen 24 mg/dl (9-20); Calcium 7.8 mg/dl (8.4-10.2); Carbon Dioxide 38 mmol/L (22-30); Chloride 101 mmol/L (98-107); Estimated Creatinine Clearance > 125 ml/min; Glucose 106 mg/dl (70-99); Potassium 4.2 mmol/L (3.5-5.1); Sodium 140 mmol/L (135-145); Total Protein 5.1 g/dl (6.3-8.2); eGFR > 60.00
[2025-06-17 03:14] LABS: Magnesium 2.1 mg/dl (1.6-2.3); Triglycerides 145 mg/dl (10-149)
[2025-06-17 03:14] LABS: Glucose - Point of Care 113 mg/dl (70-99)
[2025-06-17 04:25] LABS: Glucose - Point of Care 124 mg/dl (70-99)
[2025-06-17] MEDS: TYLENOL ORAL SOLUTION 650 MG TUBE ×3 (04:56→21:13)
[2025-06-17] MEDS: ZOSYN 100 IV ×3 (04:56→17:37)
[2025-06-17] MEDS: LEVOPHED 250 IV ×3 (04:57→23:50)
[2025-06-17] MEDS: NOVOLIN R INSULIN INFUSION 100 IV ×2 (04:58→19:23)
[2025-06-17 05:14] LABS: Glucose - Point of Care 120 mg/dl (70-99)
[2025-06-17 05:17] VITALS: BMI 40.0
--- NOTE | 2025-06-17 05:46 | PTCARENOTE ---
AM labs sent. pt febrile to 101.5, PRN tylenol given and packed with ice. ETT advanced to 26cm, vent settings adjusted overnight to ASV 120/10/75%. EKG done. care continues.
[2025-06-17 06:03] LABS: Glucose - Point of Care 133 mg/dl (70-99)
[2025-06-17 07:17] LABS: Glucose - Point of Care 138 mg/dl (70-99)
[2025-06-17] MEDS: HYDROPHOR 1 APPLIC TOPICAL (07:41)
[2025-06-17] MEDS: SUBUTEX 4 MG SL (07:42)
[2025-06-17] MEDS: NSS (PRESERVATIVE FREE) 10 ML IV (07:42)
[2025-06-17] MEDS: PROTONIX IV 40 MG IV (07:42)
[2025-06-17] MEDS: SODIUM CHLORIDE 3% FOR INHALATION 1 VIAL INH ×3 (07:49→20:01)
--- NOTE | 2025-06-17 08:04 | PN.DE.MGMTRT ---
Insulin Management
- -
06/17/2025 Diabetes Management Consult Follow up
Patient admitted 06/05 with c/o difficulty breathing. Diabetes management consult 06/15. PMH 5 weeks of constipation with abdominal distention, HTN, afib, chf. Prior to admission was taking lantus 24 units daily with novolog 20 units AC and Farxiga 5
mg daily. A1C on admission 7.1%, cr today .5, eGFR > 60.
Patient is currently intubated and sedated. Information obtained from chart and patient nurse and pharmacist. Patient s/p OR 06/08 for lysis of adhesions, sigmoidectomy, with end descending colostomy. Currently receiving TPN. Currently receiving
critical care glycemic protocol which was started 06/12.
Patient has required 8 to 10 units of insulin per hour, glucose range 116 to 144. TPN continues, tube feeds started yesterday, held today for possible bronchoscopy. Will start Q 6 hour novolog sq when tube feeds resumed.
Will follow.
Discussed with nurse
Diabetes History
- -
Type of Diabetes: 2 requiring insulin
Pre-Admission Diabetes Regimen
06/17/25
02:16
Creatinine 0.6 L
Insulin Pump Settings
IP Diabetes Regimen
06/16/25 06/16/25 06/16/25
09:24 11:20 13:24
Glucose
POC Glucose 132 H 146 H 144 H
06/16/25 06/16/25 06/16/25
15:32 17:32 19:32
Glucose
POC Glucose 121 H 143 H 133 H
06/16/25 06/17/25 06/17/25
21:51 00:09 02:15
Glucose
POC Glucose 116 H 124 H 109 H
06/17/25 06/17/25 06/17/25
02:16 03:02 04:13
Glucose 106 H
POC Glucose 113 H 124 H
06/17/25 06/17/25 06/17/25
05:03 05:52 07:06
Glucose
POC Glucose 120 H 133 H 138 H
Patient Education
--- NOTE | 2025-06-17 08:40 | W.PN.CRS1 ---
Today's Communication / Plan
-
as below
Assessment/Plan
-
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
obstipation associated with megacolon. WBC 11.[address] showing gaseous distention of the colon, diameter of the sigmoid up to 18 cm in diameter. He received a dose of neostigmine, which failed. He underwent attempt at decompressive sigmoidoscopy,
but encountered too much stool. Due to refractory nature of his issue, we proceeded with surgery.
POD 9 exlap, sigmoidectomy, end-colostomy; iatrogenic spillage of stool - controlled and abdomen washed out, no colonic ischemia or perforation
S/p bronch 06/15 for right-sided mucous plugging
Tmax 101.4, VSS
WBC 18.0 from 24.5, Hb 9.5 from 10.1, Cr 0.6
�Respiratory failure, c/b mucous plugging; remains intubated/vented with elevated O2 requirement
-Reviewed CXR with intensvist, concern for recurrent mucous plugging in LLL and large gastric bubble; likely plan for repeat bronch today
�Continue pain control and sedation
� Maintain MAP greater than 65, wean levo as tolerated
� Cont for hepgtt
� Continue n.p.o.; cont TPN
�Hold trickle tube feeds and place OGT to low continuous due to increased gastric bubble and pushing up on the left diaphragm
� Appreciate ID, on zosyn
�Septic shock likely due to pneumonia, possibly related to abdominal source; will eventually need a repeat CT scan; however, patient having ostomy function, CHRISTINE with serosanguineous output, leukocytosis improving, so my suspicion for abdominal
source is lower; risk of transfer for CT at this point does not seem to outweigh the benefit; however, if clinical status changes/worsens, will need repeat CT scan to rule out abdominal source
�Currently no concern for wound infection; if leukocytosis increases, will keep this in differential
� Continue Mason, strict I&O's
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
Subjective Data
Procedure
06/08/25- Exploratory laparotomy, lysis of adhesions, sigmoidectomy, decompression of right colon, abdominal washout, creation of end descending colostomy, umbilical hernia repair
Subjective Data
Date of Service: June 17, 2025
Patient remains intubated and sedated. Still on Levophed at 6-8 mics per minute, vaso is off.
Patient continues to have episodes of desaturation with moving in the bed, was at FiO2 of 100%, now at 70%. A.m. chest x-ray shows potential mucous plugging in the left lower lobe.
Passing flatus from the ostomy and small amount of stool. Trickle feeds were started yesterday.
Objective Data
-
Vital Signs
Temp Pulse Resp BP Pulse Ox
99.2 F 64 16 128/57 97
06/17/25 07:30 06/17/25 07:49 06/17/25 07:49 06/16/25 20:35 06/17/25 08:00
Intake & Output
06/16/25 06/17/25 06/18/25
06:59 06:59 06:59
Intake Total 4506.3 / 4668.1 4846.2 / 5058.5 362.6 / 362.6
Output Total 6490 / 6490 3235 / 3445 360 / 360
Balance -1983.7 / -1821.9 1611.2 / 1613.5 2.6 / 2.6
Intake:
IV fluids (Total) 2130.3 / 2224.1 2179.2 / 2269.5 180.6 / 180.6
Fentanyl gtt 275.0 / 287.5 300.0 / 312.5 25.0 / 25.0
Insulin 222 / 232 194 / 200
Levophed gtt 817.8 / 847.8 615.0 / 637.5 45.0 / 45.0
Propofol 617.5 / 644.8 632.2 / 659.5 54.6 / 54.6
heparin 198 / 212 438 / 460 44 / 44
IV piggybacks 700 / 700 500 / 500
TPN/PPN 1496 / 1564 1522 / 1579 57 / 57
Tube feeding 150 / 160 20 / 20
Feeding tube flush amount 435 / 490 105 / 105
Amount instilled into GI Tube ( 180 / 180 60 / 60
Total)
Teller Sump 180 / 180 60 / 60
Output:
Drain Output (Total) 475 / 475 95 / 155 60 / 60
Right Lower Abdomen [place]- 475 / 475 95 / 155 60 / 60
Vo
Gastrointestinal tube output ( 0 / 0
Total)
Teller Sump 0 / 0
Urine, Mason 5890 / 5890 3140 / 3290 300 / 300
Urine, Voided 125 / 125
Lab Results
06/17/25 02:16
06/17/25 02:16
Physical Exam
-
General: No Acute Distress (Intubated and sedated, not following commands)
Abdomen: Soft, Distended (Mildly distended in the upper abdomen), Non Tender and Other (Ostomy edematous, pink, stool within the ostomy bag; CHRISTINE-serosanguineous fluid)
Skin: Warm and Dry
Wound: No Signs of Infection, Dressing in Place and Other (Midline incision closed with intermittent fred, no surrounding erythema; small amount of thicker segovia/fibrinous fluid from lower incision)
[2025-06-17 08:49] LABS: Glucose - Point of Care 137 mg/dl (70-99)
[2025-06-17 09:22] VITALS: BP 109/50
[2025-06-17 09:22] LABS: APTT 66.9 Sec (23.4-35.0)
[2025-06-17] MEDS: HEPARIN 25000 UNITS/250 ML IV ×2 (09:38→19:24)
[2025-06-17 09:42] LABS: Glucose - Point of Care 141 mg/dl (70-99)
--- NOTE | 2025-06-17 10:00 | W.PN.ID1 ---
Date of Service
Date of Service: June 17, 2025
Today's Communication
Add Vancomycin IV.
Agree with CT a/p.
Assessment / Plan
# Purulent peritonitis
# Colonic inertia with megacolon; status post ex lap, decompression, colostomy, stool leakage into the abdomen requiring washout June 08, 2025
# Septic shock; on pressor
# PNA, Pseudomonas
# Fever - persists
# Leukocytosis improved
# VDRF
- 06/08/25 Exploratory laparotomy, lysis of adhesions, sigmoidectomy, decompression of right colon, abdominal washout, creation of end descending colostomy, umbilical hernia repair
- No OR cx
- Blood cultures pending; no growth to date
-06/[address] a/p: limited study but no obvious abscess
-06/14 Sputum cx Pseudomonas, sensitivities pending
-06/15 s/p bronch with airway clearance; cx pendding
- Continue Zosyn (d#7)
- Continue empiric micafungin (d#6).
- Add Vancomycin IV.
- Agree with repeat CT a/p
- Trend temps, WBC. Follow cultures.
- Continue ICU support. Patient remains critically ill on vent
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
HFrEF
HTN
DM
Afib
HLD
Colonic Inertia / Dysmotility
Chronic opioid dependence
Advanced bilateral lower extremity venous insufficiency
Morbid obesity (BMI~43)
Chief Complaint
-: Clinical Sepsis and Other (Purulent peritonitis)
Subjective / Review of Systems
Remains on vent.
Vital Signs / Physical Exam
Vital Signs
Vital Signs
Temp Pulse Resp BP Pulse Ox
100.5 F H 67 19 109/50 98
06/17/25 09:22 06/17/25 09:22 06/17/25 09:22 06/17/25 09:22 06/17/25 09:22
Selected Entries
06/17/25
04:52
Temp 101.4 F H
Physical Exam
Constitutional: Acutely Ill and Obese
Eyes: Sclera Anicteric
Cardiovascular: Regular Rate and S1/S2
Pulmonary: Coarse and Other (on vent.)
Gastrointestinal: Soft, Non Tender, Normal Bowel Sounds and Other (Ostomy: loose stools. Midline incision- clear without erythema. CHRISTINE drain sero-sanguinous fluid)
Genito-Urinary: Mason and Clear Urine
Extremities: Edema and Venous Insufficiency
Objective Data
Lab Data
Lab Results
06/17/25 02:16
06/17/25 02:16
PT 17.4 Sec (11.4-14.6) H 06/09/25 00:01
INR 1.40 06/09/25 00:01
APTT 66.9 Sec (23.4-35.0) H 06/17/25 08:51
Estimated Creat Clear > 125 ml/min 06/17/25 02:16
Lactic Acid 0.9 mmol/L (0.7-2.0) 06/09/25 00:01
Total Bilirubin 0.4 mg/dl (0.2-1.3) 06/17/25 02:16
AST 21 U/L (17-59) 06/17/25 02:16
ALT < 10 U/L (0-50) 06/17/25 02:16
Alkaline Phosphatase 116 U/L (38-126) 06/17/25 02:16
C-Reactive Protein > 270.00 mg/L (0.0-10.00) H 06/11/25 03:22
Most recent labs reviewed.
Micro Results:
06/14/25 11:22 Respiratory Culture - Final
Tracheal Aspirate Pseudomonas aeruginosa
Gram Stain - Final
06/13/25 12:07 Blood Culture - Preliminary
Blood/Venous No Growth in 72 hours- Final report to follow
06/13/25 12:07 Blood Culture - Preliminary
Blood/Venous No Growth in 72 hours- Final report to follow
06/15/25 10:08 Respiratory Culture - Preliminary
Bronch Left Lower Lobe Gram Stain - Preliminary
06/11/25 09:27 Blood Culture - Final
Blood/Venous No Growth - Final Report
06/11/25 09:59 Blood Culture - Final
Blood/Venous No Growth - Final Report
06/15/25 10:08 Fungal Culture - Preliminary
Bronch Left Lower Lobe Culture in progress.
Positive cultures are reported as soon as detected.
Final report to follow in four to five weeks.
06/15/25 10:08 Acid Fast Bacilli Smear - Pending
Bronch Left Lower Lobe Acid Fast Bacilli Culture - Pending
06/06/25 07:57 MRSA Screen - Final
Nose No Methicillin Resistant Staphylococcus aureus isolated.
Imaging:
06/16/25 CXR: There is moderate airspace disease in right lower lung field concerning for pneumonia. There is obscuration of the left hemidiaphragm suggesting left lower lobe pneumonia
06/15/25 CXR: No pneumothorax status post bronchoscopy. Progressive homogeneous increased retrocardiac opacity. Suspect mild left perihilar and right infrahilar opacity which could represent atelectasis or pneumonia.
06/13/25 CT a/p: Very limited study. Small volume fluid in the abdomen, particularly in the left abdomen mildly complex. As this fluid is incompletely included, it cannot be determined whether this totally represents likely free fluid or combination
of free fluid and abnormal focal fluid collection. Additional small abnormal focal fluid collections cannot be excluded on the basis of this markedly limited study. Apparent recent prior partial sigmoidectomy with large volume stool seen in the
residual sigmoid colon and rectum.
06/10 CXR: Stable CHF and bibasilar atelectasis and/or pneumonia.
06/08/25 CXR: Diffuse marked colonic dilation. Measurement of caliber of the upper colon is slightly greater then obstruction series of June 07, 2025. Multiple air-fluid levels compatible with stasis. Moderate amount of stool within the inferior
aspect of the right colon as well as within the rectum. No gross evidence for free intraperitoneal air.
06/05/25 CT a/p: Significant gaseous distention of a large portion of the colon. This contributes to limitation of this examination, as the patient cannot be fully included on the [id number] of the CT scanner. If there can be some distal colonic
decompression, repeat scan could be considered, when hopefully the patient could be entirely included on the [id number] of the exam. No gross evidence for free intraperitoneal air. Patchy parenchymal opacity within the visualized lower lung, most
likely atelectasis. Pneumonia is a differential consideration, felt to be less likely based on morphologic appearance.
Care Review
Plan reviewed with: Nurse
[2025-06-17] MEDS: RELISTOR 12 MG SC (10:42)
[2025-06-17] MEDS: MYCAMINE 105 MG IV (10:44)
[2025-06-17 10:51] LABS: Glucose - Point of Care 143 mg/dl (70-99)
--- NOTE | 2025-06-17 11:00 | PHA.VAN.IN ---
Addendum entered and electronically signed by Hannah Love [facility] 06/17/25 12:09:
Agree with assessment and plan
Original Note:
Assessment
- Assessment
Renal Function: Appears similar to baseline
Concomitant Antimicrobials: piperacillin/tazobactam
Plan
- Plan
Initial / Loading Dose: give 2000mg x1 dose now, then 1500mg x1 dose tonight at 1800
Maintenance Regimen: dosing by level
Monitoring: Random 06/18 0600
Pharmacokinetics Vancomycin I
- -
Patient Age: 64
Patient Sex: Male
Vancomycin Day #: 1
Indication: Pulmonary/Respiratory
Requesting Provider: Dr. Albarran/Dr. Quispe
Pertinent Antimicrobial Allergies:
NKDA
Height / Weight:
Height 6 ft 3 in
Actual Weight 145 kg
Pertinent Past Medical History: BMI 40
- Vital Signs / Lab Results
Temp Pulse Resp BP Pulse Ox
100.5 F H 76 16 109/50 97
06/17/25 09:22 06/17/25 10:30 06/17/25 10:30 06/17/25 09:22 06/17/25 10:30
Lab Results - Hematology
06/15/25 06/15/25 06/16/25
04:25 11:54 02:53
WBC 20.1 H 22.2 H 24.5 H
06/17/25
02:16
WBC 18.0 H
Lab Results - Chemistry
06/15/25 06/15/25 06/16/25
04:25 16:21 02:53
BUN 22 H 23 H 24 H
Creatinine 0.5 L 0.6 L 0.5 L
Estimated Creat Clear > 125 > 125 > 125
Albumin 2.2 L
06/17/25
02:16
BUN 24 H
Creatinine 0.6 L
Estimated Creat Clear > 125
Albumin 2.2 L
Microbiology Results
06/14/25 11:22 Respiratory Culture - Final
Tracheal Aspirate Pseudomonas aeruginosa
Gram Stain - Final
06/13/25 12:07 Blood Culture - Preliminary
Blood/Venous No Growth in 72 hours- Final report to follow
06/13/25 12:07 Blood Culture - Preliminary
Blood/Venous No Growth in 72 hours- Final report to follow
06/15/25 10:08 Respiratory Culture - Preliminary
Bronch Left Lower Lobe Gram Stain - Preliminary
06/11/25 09:27 Blood Culture - Final
Blood/Venous No Growth - Final Report
06/11/25 09:59 Blood Culture - Final
Blood/Venous No Growth - Final Report
06/15/25 10:08 Fungal Culture - Preliminary
Bronch Left Lower Lobe Culture in progress.
Positive cultures are reported as soon as detected.
Final report to follow in four to five weeks.
--- NOTE | 2025-06-17 11:20 | PTCARENOTE ---
Updates thru morning with critical care team. Update pulmonary plan of cares, nebs, meds, chest pt and vibration, continue pulmonary toilet plan with follow up abg as ordered. IV drips and titration as per protocol with follow up trends to pharmacy.
Antibiotics as per I/D team at bedside this am. GI surgical team update at bedside and with shoe associate team. Continue follow up trends in cares. Supportive cares ongoing. Dressing changes and skin cares as per orders.
[2025-06-17 11:39] LABS: Glucose - Point of Care 155 mg/dl (70-99)
--- NOTE | 2025-06-17 12:21 | W.PN.INTV ---
Today's Communication / Plan
Recommendations
- Increase Seroquel to 100 mg nightly, follow-up EKG in a.m.
- N.p.o., NG tube to suction
- Hypertonic saline nebulized 3 times a day with albuterol, chest PT, follow-up ABG in AM
- CT Chest/Abd/Pelvis with IV contrast in AM.
Assessment
-
Assessment: 64-year-old male with a past medical history of cardiomyopathy, hypertension, DM type II, history of chronic opioid use due to chronic arthritis now on buprenorphine, history of ERASMO, venous insufficiency and chronic back pain who
presented with shortness of breath, abdominal distention. Found to have severe colonic distention. Initially treated with neostigmine, attempted sigmoidoscopy without attempt. Underwent exploratory laparotomy 06/08/2025-developed shock requiring
vasopressors and remained on mechanical ventilation. We were consulted on 06/09/2025.
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
OxyContin/oxycodone,systolic cardiomyopathy.
06/17/2025 Overview: Patient currently intubated, 7.35/69/68, current vent settings ASAV 120%, FiO2 70%. Continues to be febrile. MAP of 67, currently on Levophed at 6. Saturating 97%. Current infusions Levophed, TPN, heparin drip, insulin
infusion, fentanyl and propofol infusions. ET tube secretions significantly improved. Low volume ostomy tube output and CHRISTINE drain output noted.
Assessment and plan
#1. Acute hypoxemic respiratory failure post surgery complicated by VAP of LLL
- Initially due to abdominal distention requiring intubation, mechanical ventilation
- Left lower lobe dense consolidation, copious ET tube secretions noted, improving
- Continue broad-spectrum antibiotics, s/p bronchoscopy and BAL 06/16 with extensive suctioning of thick mucoid secretions in LLL
- Weaning attempts have been failing so far. Tolerating ASV better since Bronchoscopic lavage.
- Follow-up chest x-ray with increases volume loss LLL, also increased gastric distention.
#2. Septic shock suspected-source likely intraperitoneal and LLL pneumonia
- Continues to need pressor support, currently on Levophed
- Continue broad-spectrum antibiotics and antifungal per infectious disease service, micafungin and Zosyn infusing
- Follow-up on bronchoscopy and BAL results
- Plan for CT Chest/Abd/Pelvis in AM, with IV contrast
#3. Pseudoobstruction with megacolon, failed conservative management, s/p ex lap
- S/p ex lap, sigmoidectomy and end colostomy, iatrogenic spillage of stool, peritonitis, umbilical hernia repair, 06/08/2025
- Continue IV Zosyn and micafungin
- Stool output noted in the ostomy bag
- N.p.o. currently, TPN infusing
- F/U CT in AM.
- Increased gastric distention on CXR. Place NG back to suction.
#4. Acute on chronic heart failure with reduced ejection fraction, LVEF 35%, Stage I diastolic dysfunction
- Patient has been diuresing well with daily Lasix, hold diuretic today, will reassess in a.m., significantly improved pedal edema.
#5. Paroxysmal atrial flutter.
- DC subcu Lovenox, initiated heparin infusion, tolerating well without any bleeding
- History of cardioversion in January 2025
- Has been on amiodarone as well
#6. Pulmonary hypertension, estimated pulmonary artery systolic pressure 50-55
- Primarily group II PH related to underlying congestive heart failure
- Continue to optimize intravascular volume, keep saturations above 90%, no indication for vasodilator therapy
#7. DM type II with Hyperglycemia
- Continue insulin infusion
#8. Prolonged QTc
- Noted in the setting of hypokalemia, hypomagnesemia and Seroquel therapy
- Since QTc normal now, continued agitation noted with attempted SAT, re-trial of Seroquel. Tolerating well, increase dose to 100 mg nightly.
Other medical diagnoses:
#Morbid obesity
#Venous deficiency
#History of ERASMO
#Chronic pain management due to arthritis currently on buprenorphine in an effort to wean off of OxyContin/oxycodone
-
DVT prophylaxis: -heparin infusion
GI prophylaxis, pantoprazole
-
Prognosis is guarded
-
Critical care statement: A total of 45 minutes of critical care time was provided for this patient today. This includes management of unstable vital signs, evaluation of the patient at bedside, reviewing the patient's pertinent medical records
including ventilator settings, arterial blood gases, radiographs, microbiology, laboratory evaluations and discussion with primary team, critical care nursing, and respiratory therapy.

Data reviewed:
Chest x-ray 06/08/2025: Reviewed, ET tube in place. Left lower lobe airspace disease. Cardiomegaly
-
CT abdomen pelvis 06/05/2025:
The patient is significantly distended, and much of the abdominal and upper pelvic soft tissues extending anterior and to the left of the [id number], which limits evaluation, as it becomes difficult to confidently follow the loops of bowel.
There is distention of the rectum with air and stool, measuring 9.3 cm in diameter. There is marked distention of the sigmoid colon which extends into the right and central upper abdomen, with the sigmoid colon measuring up to 18 cm in diameter. The
sigmoid colon contains a moderate to large amount of stool, mainly inferiorly. There appears to be moderate distention of the rest of the visualized colon.
Small bowel loops are present, and do not appear to be significantly distended, similar appearance to prior examination.
Of note, the cecum cannot be confidently identified on the present examination
No gross evidence of free intraperitoneal air.
There is patchy parenchymal opacity within the visualized lower lungs, most likely atelectasis. A component of pneumonia is also possible, although felt to be less likely. There is no significant pleural effusion and no significant pericardial
effusion.
Coronary artery calcifications are present. Please correlate with symptoms of and risk factors for coronary artery disease, with further workup as clinically appropriate.
Of note, the stomach is not distended.
Subjective Dataa
Subjective Data
Date of Service:
Date of Service: June 17, 2025
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
Subjective:
Patient currently intubated, mechanically ventilated and sedated
Review of Systems
General: Unobtainable - Sedation
Objective Data
Data Reviewed
Vital Signs / I&O / Oxygen:
Vital Signs
Temp Pulse Resp BP Pulse Ox
100.5 F H 76 16 109/50 98
06/17/25 11:20 06/17/25 10:30 06/17/25 10:30 06/17/25 09:22 06/17/25 11:40
Intake and Output
06/16/25 06/17/25 06/18/25
06:59 06:59 06:59
Intake Total 4506.3 / 4668.1 4846.2 / 5058.5 802.0 / 802.0
Output Total 6490 / 6490 3235 / 3445 810 / 810
Balance -1983.7 / -1821.9 1611.2 / 1613.5 -8.0 / -8.0
SaO2 [ASV] 97
SaO2 [A/C] 92
SaO2 98
Nasal Cannula flow liters per 3
minute
Physical Exam
General: Comfortable
HEENT: Normocephalic
Cardiovascular: S1-S2 and Peripheral Edema (Significantly improving edema)
Respiratory: Crackles (Improving air entry in the left hemithorax) and ET Tube (Secretions much less and not as purulent appearing )
GI: Soft, Distended, Other (Colostomy with stool output.) and Other (NG tube in place minimal drainage)
Neurology: Other (Currently sedated. ) and Other
Skin: Warm and Other ( lower extremity venous stasis, both extremities are wrapped.)
Labs/Micro/Reports
Lab Data
06/17/25 02:16
06/17/25 02:16
Laboratory Results
06/16/25 06/16/25 06/17/25
13: 19:33 02:16
APTT 52.4 H 55.6 H 64.0 H
pH 7.35
pCO2 69 H
pO2 68 L
HCO3 38.1 H
O2 Delivery Level
06/17/25
08:51
APTT 66.9 H
pH
pCO2
pO2
HCO3
O2 Delivery Level
Microbiology
06/13/25 12:07 Blood/Venous Blood Culture - Preliminary
No Growth in 4 days- Final report to follow
06/13/25 12:07 Blood/Venous Blood Culture - Preliminary
No Growth in 4 days- Final report to follow
06/14/25 11:22 Tracheal Aspirate Respiratory Culture - Final
Pseudomonas aeruginosa
06/14/25 11:22 Tracheal Aspirate Gram Stain - Final
06/15/25 10:08 Bronch Left Lower Lobe Respiratory Culture - Preliminary
06/15/25 10:08 Bronch Left Lower Lobe Gram Stain - Preliminary
06/11/25 09:27 Blood/Venous Blood Culture - Final
No Growth - Final Report
06/11/25 09:59 Blood/Venous Blood Culture - Final
No Growth - Final Report
06/15/25 10:08 Bronch Left Lower Lobe Fungal Culture - Preliminary
Culture in progress.
Positive cultures are reported as soon as detected.
Final report to follow in four to five weeks.
[2025-06-17] MEDS: VANCOCIN 540 MG IV (12:31)
[2025-06-17 12:46] VITALS: BP 110/49
[2025-06-17 13:22] LABS: Glucose - Point of Care 157 mg/dl (70-99)
[2025-06-17 13:25] LABS: B.E. 11.4 mmol/L; HCO3 37.2 mmol/L (21-28); O2 Saturation % 98.7 % (94-98); PCO2 56 mmHg (35-48); PO2 93 mmHg (83-108)
--- NOTE | 2025-06-17 13:56 | W.PN.HOSP.TC ---
Today's Communication/Plan
-
Assessment / Plan
Assessment / Plan
General: Intubated and sedated, diaphoretic
HEENT: NormoCephalic, ETT and OGT in place
Respiratory: Mechanical breath sounds bilaterally, equal chest rise
Cardiac: S1/S2 and Regular Rhythm; No Rub or Gallop
GI: Left-sided colostomy with brown output, CHRISTINE drain with serosanguineous output, midline incision with surgical dressing clean dry intact
Musculoskeletal: No Edema, no deformity
Skin: Warm and dry
: Mason in place
Neuro: Sedated, responds to noxious stimuli
Psych: Unable to assess
Impression:
Mr. Knapp is a 64-year-old male with medical history of HFpEF, A-fib/flutter, IDDM, obesity, chronic pain with subsequent opioid dependence, and chronic constipation with colonic dysmotility who presented with shortness of breath, abdominal
bloating and discomfort, constipation. His last bowel movement was 2 weeks prior to arrival. He is having increasing difficulty breathing due to worsening abdominal distention. He has had multiple similar episodes since September 2024 and has
previously required decompression. He has been treated with enemas and neostigmine previously. Abdominal imaging showed significant colonic distention with air-filled loops of bowel. He also had patchy parenchymal opacities within the mid to
lower lungs. He was mildly hypoxic and has been started on antibiotics. He has remained afebrile with a mild leukocytosis of just over 12,000. He has been admitted for further evaluation and management.
Seen by GI, failed neostigmine, enema, status post nonsuccessful decompressive flexible sigmoidoscopy.
Surgery team consulted.
s/p Exploratory laparotomy, lysis of adhesions, sigmoidectomy, decompression of right colon, abdominal washout, creation of end descending colostomy, umbilical hernia repair on 06/08
admitted to ICU postoperatively, intubated.
Patient had fever,Infectious disease consult, started on zosyn.
Patient was still running fever, added micafungin.
CT chest: New right lower lobe consolidation with air bronchograms, atelectasis versus pneumonia, Possible small bilateral pleural effusions.
CT abdomen/pelvis shows: Small volume fluid in the abdomen, particularly in the left abdomen mildly complex. As this fluid is incompletely included, it cannot be determined whether this totally represents likely free fluid or combination of free
fluid and abnormal focal fluid collection. Additional small abnormal focal fluid collections cannot be excluded on the basis of this markedly limited study
Patient received Lasix.
Assessment/Plan:
Colonic dysmotility/ileus:
- Abdomen remained significantly distended despite multiple medical enemas and subsequent bowel movements
- Upgraded to IMU 06/07, pushed 4 mg neostigmine around 1:30 PM, no significant peristaltic response
- Ultimately required surgical intervention, brought to the OR 06/08 for ex lap with lysis of adhesions and sigmoidectomy with end descending colostomy, decompression of right colon, abdominal washout and umbilical hernia repair
- ICU postoperatively, intubated
- Colorectal surgery following, very little output from ostomy, some increased abdominal distention, holding trickle feeds and placing OGT to low continuous suction
- Continue TPN
- Repeating CT abdomen pelvis
Septic shock, requiring pressors:
- Developed fevers postoperatively, started on Zosyn and vasopressors, micafungin added
- Stool leakage into the abdomen requiring washout, also potentially has concomitant pulmonary infection
- Tracheal aspirate from 06/14 growing pansensitive Pseudomonas
- ID following, added IV vancomycin
Acute hypoxic respiratory failure (currently intubated in the ICU postoperatively)
- Continue mechanical ventilation
- Persistent copious thick secretions and left lower lobe volume loss
- Underwent bronchoscopy with BAL left lower lobe 06/15 by communications senior associate, cultures growing Pseudomonas, final sensitivities pending although tracheal aspirate from 06/14 growing pansensitive Pseudomonas
- Continue antimicrobial coverage with Zosyn and micafungin, added IV vancomycin
- Hypertonic nebulized saline 3 times a day with albuterol, aggressive chest PT, ABG in the a.m.
- Started Seroquel 50 mg nightly, dose increased to 100 mg, monitor QTc
- Weaning trials as tolerated
paroxismal A-fib/flutter:
- Currently rate controlled, continue home metoprolol and amiodarone
- Holding home Xarelto .
IDDM:
- Insulin drip.
HFrEF:
- Acute on chronic chronic
- Continue beta-blockade with home metoprolol succinate 100 mg at night
- Has been given multiple doses of IV Lasix recently, currently holding Lasix , continue spironolactone, monitor daily weights
- No need for afterload reduction due to hypotension
CODE STATUS: Full code
DVT prophylaxis: hold Xarelto
Diet: TPN
Disposition: Continue management in the ICU.
Total time spent on today's encounter was 56 minutes
Anticipated Discharge: > 48 hours
Subjective/Interval History
-
Date of Service: June 17, 2025
Patient was seen and examined at bedside this morning. Remains critically ill, intubated and on vasopressors. Persistently febrile.
Objective Data
-
Labs:
Laboratory Results
06/17/25 06/17/25 06/17/25
02:16 08:51 13:11
WBC 18.0 H
Hgb 9.5 L
Hct 31.6 L
Plt Count 197
APTT 64.0 H 66.9 H
HCO3 38.1 H 37.2 H
Sodium 140
Potassium 4.2
Chloride 101
Carbon Dioxide 38 H
BUN 24 H
Creatinine 0.6 L
Glucose 106 H
Calcium 7.8 L
Total Bilirubin 0.4
AST 21
ALT < 10
Alkaline Phosphatase 116
06/17/25
17:00
WBC
Hgb
Hct
Plt Count
APTT Pending
HCO3
Sodium
Potassium
Chloride
Carbon Dioxide
BUN
Creatinine
Glucose
Calcium
Total Bilirubin
AST
ALT
Alkaline Phosphatase
Vital Signs:
Vital Signs
Temp Pulse Resp BP Pulse Ox
101 F H 68 18 110/49 97
06/17/25 12:46 06/17/25 12:46 06/17/25 12:46 06/17/25 12:46 06/17/25 12:46
I&O
06/16/25 06/17/25 06/18/25
06:59 06:59 06:59
Intake Total 4506.3 / 4668.1 4846.2 / 5058.5 1639.8 / 1639.8
Output Total 6490 / 6490 3235 / 3445 1210 / 1210
Balance -1983.7 / -1821.9 1611.2 / 1613.5 429.8 / 429.8
Review of Systems
-
Unable to obtain full review of systems at this time due to: Patient Intubation
Physical Exam
-
General: Intubated
[2025-06-17] MEDS: VENTOLIN NEBULES 2.5 MG INH ×2 (14:21→20:01)
[2025-06-17 15:01] LABS: Glucose - Point of Care 170 mg/dl (70-99)
[2025-06-17 16:02] VITALS: BP 118/46
--- NOTE | 2025-06-17 16:36 | CM ---
Calcified order with Keo Mcduffie that home TPN infusion is on hold till extubation.
Pt has a new colostomy.
Febrile on IV antibiotics.
TPN remains.
When appropriate will needed PT OT evals for discharge planning.
CM will continue to assess and assist in discharge planning.
PLAN Will depend on hospital course of care.
--- NOTE | 2025-06-17 16:41 | PTCARENOTE ---
Updates again with emerging technologies director team. Patient desaturates easily with turns, positioning, noted prolonged recover times with saturation. Noted increase secretions with cpt and nebs as ordered. Continue Antibiotic schedule, medications per GI surgery.
Follow up input output trends. OGT remains on low suction 250ml output noted, 80ml output form CHRISTINE. Urine output 100ml/hrly continue follow up. TPN as per critical care team. Updates with pharmacy ongoing. Update patient via phone. Continue to
reinforce plan of cares and follow up questions and support as needed.
[2025-06-17 17:12] LABS: Glucose - Point of Care 149 mg/dl (70-99)
[2025-06-17 17:41] LABS: APTT 71.3 Sec (23.4-35.0)
[2025-06-17] MEDS: VANCOCIN 530 MG IV (19:49)
[2025-06-17] MEDS: Parenteral Nutrition, Central 1640 IV (20:35)
[2025-06-17] MEDS: SEROQUEL 100 MG TUBE (21:13)
[2025-06-17] MEDS: PACERONE 200 MG TUBE (21:13)
[2025-06-17] MEDS: LIPITOR 40 MG TUBE (21:13)
[2025-06-17 23:05] LABS: Glucose - Point of Care 147 mg/dl (70-99)
[2025-06-17 23:05] LABS: Glucose - Point of Care 171 mg/dl (70-99)
[2025-06-17 23:05] LABS: Glucose - Point of Care 162 mg/dl (70-99)
--- NOTE | 2025-06-18 | PTCARENOTE ---
CHG bath, morales care, oral care done.
pt remains restrained, sedated, agitated at times and becomes asynchronous with ventilator.
SR on monitor with PVCs. MAP goal >65. febrile to 101.6, cooling blanket applied, PRN tylenol given and pt packed with ice intermittently.
8.0, 26cm ETT. ASV 120-10-60%. thick segovia secretions through ETT. pillows placed under L side to elevate lung.
OGT @ 71cm, connected to sxn. abdomen round/obese. colostomy intact with minimal output. CHRISTINE drain with serosang fluid. midline incision dressing C/D/I.
morales with adequate jack UOP.
levo/heparin/TPN/prop/fent/insulin gtts continue.
care ongoing.
[2025-06-18] MEDS: ZOSYN 100 IV ×2 (00:35→05:15)
[2025-06-18 00:59] LABS: Glucose - Point of Care 122 mg/dl (70-99)
[2025-06-18 01:02] LABS: APTT 97.4 Sec (23.4-35.0)
[2025-06-18 03:08] LABS: B.E. 9.1 mmol/L; HCO3 35.3 mmol/L (21-28); O2 Saturation % 99.2 % (94-98); PCO2 57 mmHg (35-48); PO2 89 mmHg (83-108)
[2025-06-18] MEDS: DIPRIVAN 100 IV ×6 (03:09→21:24)
[2025-06-18 03:10] LABS: Hematocrit 29.5 % (39.0-52.0); Hemoglobin 9.0 g/dL (13.0-18.0); Mean Corp Hgb Conc. 30.5 g/dL (33.0-37.0); Mean Corpuscular Volume 85.3 fL (80.0-94.0); Platelet Count 216 10^3/uL (130-400); Red Cell Dist. Width 15.4 % (11.5-14.5)
[2025-06-18 03:16] LABS: Glucose - Point of Care 188 mg/dl (70-99)
[2025-06-18] MEDS: SUBLIMAZE 50 MCG IV ×3 (03:57→21:55)
[2025-06-18 04:10] LABS: Glucose - Point of Care 174 mg/dl (70-99)
[2025-06-18 04:11] LABS: ALT (SGPT) < 10 U/L (0-50); AST (SGOT) 28 U/L (17-59); Albumin 2.3 g/dl (3.5-5.0); Alkaline Phosphatase 142 U/L (38-126); Blood Urea Nitrogen 23 mg/dl (9-20); Calcium 7.3 mg/dl (8.4-10.2); Carbon Dioxide 32 mmol/L (22-30); Chloride 103 mmol/L (98-107); Estimated Creatinine Clearance > 125 ml/min; Glucose 174 mg/dl (70-99); Magnesium 2.1 mg/dl (1.6-2.3); Potassium 4.2 mmol/L (3.5-5.1); Sodium 139 mmol/L (135-145); Total Protein 5.1 g/dl (6.3-8.2); Triglycerides 142 mg/dl (10-149); eGFR > 60.00
--- NOTE | 2025-06-18 04:52 | PTCARENOTE ---
AM labs sent.
vent settings unchanged overnight.
levo/heparin/TPN/prop/fent/insulin gtts continue.
wound care done.
pt on lateral rotation.
care ongoing.
[2025-06-18] MEDS: SUBLIMAZE 100 IV ×3 (05:20→20:01)
[2025-06-18] MEDS: HEPARIN 25000 UNITS/250 ML IV ×2 (05:21→16:07)
[2025-06-18 05:23] VITALS: BMI 40.6
[2025-06-18 06:00] LABS: APTT 93.6 Sec (23.4-35.0)
[2025-06-18 06:05] LABS: Glucose - Point of Care 173 mg/dl (70-99)
--- NOTE | 2025-06-18 07:45 | PTCARENOTE ---
Assumed care of patient. Pt rec'd intubated and sedated. Able to open eyes...move upper extremities. Weak. + Gag/+ Cough. Bilateral wrist restraints on. S1 S2 reg w/ NSR/PVC's on monitor. Weak RP's. DP's by doppler. +2 generalized edema.
Heels elevated on pillows. Tubigrips on bilateral LE's. #8 ETT 26cm center lip. Current vent settings: ASV 120% min vol/PEEP 10/60%...sats 95%. Anteriorly...right lung clear but diminished. Left lung extremely diminished.
Posteriorly...scattered coarse crackles and rhonchi throughout. Suctioned orally and via ETT for thick segovia secretions. Desats while lying on left side...MD aware. Abdomen obese...hypo BS. OG @ 71cm to LIWS. Mason draining jack urine. Mason
care done. Skin pale in color...clammy. Intact optifoam on sacrum. Cooling blanket under pt to monitor temp. Left radial gio...flushed and zeroed. Right TL PICC w/ heparin, propofol, insulin, levophed, fentanyl and TPN infusing...see
interventions. CT chest/abd/pelvis scheduled for today. VS documented. Will continue to monitor closely.
[2025-06-18] MEDS: VENTOLIN NEBULES 2.5 MG INH ×3 (07:55→20:29)
[2025-06-18] MEDS: SODIUM CHLORIDE 3% FOR INHALATION 1 VIAL INH ×3 (07:55→20:29)
[2025-06-18] MEDS: SUBUTEX 4 MG SL (07:56)
[2025-06-18] MEDS: NSS (PRESERVATIVE FREE) 10 ML IV (07:56)
[2025-06-18] MEDS: PROTONIX IV 40 MG IV (07:56)
[2025-06-18] MEDS: HYDROPHOR 1 APPLIC TOPICAL (08:00)
[2025-06-18] MEDS: LEVOPHED 250 IV ×2 (08:12→16:11)
[2025-06-18 08:14] LABS: Glucose - Point of Care 170 mg/dl (70-99)
--- NOTE | 2025-06-18 08:23 | PHA.VAN.FU ---
Addendum entered and electronically signed by Hannah Love [facility] 06/18/25 08:43:
Agree with assessment and plan
Original Note:
Vancomycin Assessment / Plan
- Assessment
Renal Function: Stable
WBC's are: Trending Down
In the past 24 hrs, patient has been: Febrile
Concomitant Antimicrobials: piperacillin/tazobactam
- Assessment - Therapeutic Drug Monitoring
Random Level: <5 - drawn ~10H after last dose of 1500mg
- Dosing Plan
Dosing by Level: Re-dose today (give 1250mg x3 doses)
- Monitoring Plan
Random Level: 06/19 0600
- Follow Up
Pharmacy will continue to follow.
Vancomycin Follow UP
- -
Patient Age: 64
Patient Sex: Male
Vancomycin Day #: 2
Indication: Pulmonary/Respiratory
Requesting Provider: Dr. Albarran/Dr. Quispe
Pertinent Antimicrobial Allergies:
NKDA
Height / Weight:
Height 6 ft 3 in
Actual Weight 147.5 kg
Pertinent Past Medical History: BMI 40
- Vital Signs / Lab Results
Temp Pulse Resp BP Pulse Ox
100.4 F H 113 20 115/50 97
06/18/25 05:56 06/18/25 07:59 06/18/25 07:59 06/17/25 21:13 06/18/25 08:00
Lab Results - Hematology
06/15/25 06/16/25 06/17/25
11:54 02:53 02:16
WBC 22.2 H 24.5 H 18.0 H
06/18/25
03:00
WBC 16.6 H
Lab Results - Chemistry
06/15/25 06/16/25 06/17/25
16:21 02:53 02:16
BUN 23 H 24 H 24 H
Creatinine 0.6 L 0.5 L 0.6 L
Estimated Creat Clear > 125 > 125 > 125
Albumin 2.2 L
06/18/25
03:00
BUN 23 H
Creatinine 0.6 L
Estimated Creat Clear > 125
Albumin 2.3 L
Microbiology Results
06/15/25 10:08 Respiratory Culture - Final
Bronch Left Lower Lobe Pseudomonas aeruginosa
Gram Stain - Final
06/13/25 12:07 Blood Culture - Preliminary
Blood/Venous No Growth in 4 days- Final report to follow
06/13/25 12:07 Blood Culture - Preliminary
Blood/Venous No Growth in 4 days- Final report to follow
06/14/25 11:22 Respiratory Culture - Final
Tracheal Aspirate Pseudomonas aeruginosa
Gram Stain - Final
06/11/25 09:27 Blood Culture - Final
Blood/Venous No Growth - Final Report
06/11/25 09:59 Blood Culture - Final
Blood/Venous No Growth - Final Report
Therapeutic Drug Monitoring
Random Vancomycin < 5.0 ug/ml 06/18/25 05:41
--- NOTE | 2025-06-18 08:35 | W.PN.CRS1 ---
Today's Communication / Plan
-
as below
Assessment/Plan
-
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
obstipation associated with megacolon. WBC 11.[address] showing gaseous distention of the colon, diameter of the sigmoid up to 18 cm in diameter. He received a dose of neostigmine, which failed. He underwent attempt at decompressive sigmoidoscopy,
but encountered too much stool. Due to refractory nature of his issue, we proceeded with surgery.
POD 10 exlap, sigmoidectomy, end-colostomy; iatrogenic spillage of stool - controlled and abdomen washed out, no colonic ischemia or perforation
S/p bronch 06/15 for right-sided mucous plugging
Tmax 101.4, VSS
WBC 16.0 from 18.0, Hb 9.0 from 9.5, Cr 0.6
�Respiratory failure, c/b mucous plugging, pneumonia; remains intubated/vented with elevated O2 requirement
-Cont chest PT, pulmonary toilet
�Continue pain control and sedation
� Maintain MAP greater than 65, wean levo as tolerated
� Cont for hepgtt
� Continue n.p.o.; cont TPN
�cont holding tube feeds
� Appreciate ID, on zosyn
�Septic shock likely due to pneumonia, possibly related to abdominal source; follow-up CTCAP this AM with IV contrast
�Currently no concern for wound infection; if leukocytosis increases, will keep this in differential
� Continue Mason, strict I&O's
�Appreciate medical affairs specialist and primary
Subjective Data
Procedure
06/08/25- Exploratory laparotomy, lysis of adhesions, sigmoidectomy, decompression of right colon, abdominal washout, creation of end descending colostomy, umbilical hernia repair
Subjective Data
Date of Service: June 18, 2025
Patient remains intubated and sedated. Still on Levophed at 6-8 mics per minute, vaso is off.
CXR yesterday showed mucous plugging, but with aggressive chest PT and suctioning, his FiO2 came down to 50%, so bronch was held off
Passing flatus from the ostomy and small amount of stool. OGT put out 150mL.
Objective Data
-
Vital Signs
Temp Pulse Resp BP Pulse Ox
100.4 F H 113 20 115/50 97
06/18/25 05:56 06/18/25 07:59 06/18/25 07:59 06/17/25 21:13 06/18/25 08:00
Intake & Output
06/17/25 06/18/25 06/19/25
06:59 06:59 06:59
Intake Total 4846.2 / 5058.5 5098.2 / 5269.5 171.3 / 171.3
Output Total 3235 / 3445 4290 / 4605 315 / 315
Balance 1611.2 / 1613.5 808.2 / 664.5 -143.7 / -143.7
Intake:
IV fluids (Total) 2179.2 / 2269.5 2249.2 / 2352.5 103.3 / 103.3
Fentanyl gtt 300.0 / 312.5 337.5 / 352.5
Insulin 194 / 200 139.0 / 146.0 7 7
Levophed gtt 615.0 / 637.5 514.0 / 544.0
Propofol 632.2 / 659.5 696.7 / 724.0 27.3 / 27.3
heparin 438 / 460 562 / 586
IV piggybacks 500 / 500 800 / 800
TPN/PPN 1522 / 1579 1864 / 1932 68 / 68
Tube feeding 150 / 160 20 / 20
Feeding tube flush amount 435 / 490 105 / 105
Amount instilled into GI Tube ( 60 / 60 60 / 60
Total)
[place] Sump 60 / 60 60 / 60
Output:
Drain Output (Total) 95 / 155 340 / 340
Right Lower Abdomen [place]- 95 / 155 340 / 340
Vo
Gastrointestinal tube output ( 150 / 150
Total)
[place] Sump 150 / 150
Urine, Mason 3140 / 3290 3800 / 4115 315 / 315
Lab Results
06/18/25 03:00
06/18/25 03:00
Physical Exam
-
General: No Acute Distress and Other (Intubated/sedated, not responding to commands or verbal stimuli)
HEENT: Grossly Normal
Abdomen: Soft, Distended (Mildly distended, improved from yesterday), Non Tender and Other (Ostomy pink with thick liquidy stool in the bag; CHRISTINE-serous output)
Skin: Warm and Dry
Wound: No Signs of Infection and Dressing in Place (Midline incision intermittently closed with fred, no surrounding erythema, no drainage except from lower aspect of incision with some segovia/fibrinous drainage on the dressing)
--- NOTE | 2025-06-18 08:40 | W.PN.ID1 ---
Date of Service
Date of Service: June 18, 2025
Today's Communication
CT a/p. Replace Zosyn with meropenem.
Assessment / Plan
# Purulent peritonitis
# Colonic inertia with megacolon; status post ex lap, decompression, colostomy, stool leakage into the abdomen requiring washout June 08, 2025
# s/p Septic shock; on low dose pressor
# PNA, Pseudomonas
# Fever - persists
# Leukocytosis improved
# VDRF
- 06/08/25 Exploratory laparotomy, lysis of adhesions, sigmoidectomy, decompression of right colon, abdominal washout, creation of end descending colostomy, umbilical hernia repair
- No OR cx
- Blood cultures pending; no growth to date
-06/[address] a/p: limited study but no obvious abscess
-06/14 Sputum cx Pseudomonas, sensitivities pending
-06/15 s/p bronch with airway clearance; cx Pseudomonas
-For repeat CT a/p today
- Continue empiric micafungin (d#7).
- Continue Vancomycin IV (d2).
- Replace Zosyn (d#9) with meropenem.
- Trend temps, WBC.
- Continue ICU support. Patient remains critically ill on vent
# Conditions [employer]
HFrEF
HTN
DM
Afib
HLD
Colonic Inertia / Dysmotility
Chronic opioid dependence
Advanced bilateral lower extremity venous insufficiency
Morbid obesity (BMI~43)
Chief Complaint
-: Clinical Sepsis and Other (Purulent peritonitis)
Subjective / Review of Systems
On vent. Enroute to CT
Vital Signs / Physical Exam
Vital Signs
Vital Signs
Temp Pulse Resp BP Pulse Ox
100.4 F H 113 20 115/50 97
06/18/25 05:56 06/18/25 07:59 06/18/25 07:59 06/17/25 21:13 06/18/25 08:00
Selected Entries
06/17/25
21:40
Temp 101.4 F H
Physical Exam
Constitutional: Acutely Ill and Obese
Eyes: Sclera Anicteric
Cardiovascular: Regular Rate and S1/S2
Pulmonary: Coarse and Other (on vent.)
Gastrointestinal: Soft, Non Tender, Normal Bowel Sounds and Other (Ostomy: loose stools. Midline incision- clear without erythema. CHRISTINE drain sero-sanguinous fluid)
Genito-Urinary: Mason and Clear Urine
Extremities: Edema and Venous Insufficiency
Neurological: Other (sedated)
Objective Data
Lab Data
Lab Results
06/18/25 03:00
06/18/25 03:00
PT 17.4 Sec (11.4-14.6) H 06/09/25 00:01
INR 1.40 06/09/25 00:01
APTT 93.6 Sec (23.4-35.0) H 06/18/25 05:41
Estimated Creat Clear > 125 ml/min 06/18/25 03:00
Lactic Acid 0.9 mmol/L (0.7-2.0) 06/09/25 00:01
Total Bilirubin 0.4 mg/dl (0.2-1.3) 06/18/25 03:00
AST 28 U/L (17-59) 06/18/25 03:00
ALT < 10 U/L (0-50) 06/18/25 03:00
Alkaline Phosphatase 142 U/L (38-126) H 06/18/25 03:00
C-Reactive Protein > 270.00 mg/L (0.0-10.00) H 06/11/25 03:22
Most recent labs reviewed.
Micro Results:
06/17/25 13:11 MRSA Screen - Pending
Nose
06/15/25 10:08 Respiratory Culture - Final
Bronch Left Lower Lobe Pseudomonas aeruginosa
Gram Stain - Final
06/13/25 12:07 Blood Culture - Preliminary
Blood/Venous No Growth in 4 days- Final report to follow
06/13/25 12:07 Blood Culture - Preliminary
Blood/Venous No Growth in 4 days- Final report to follow
06/14/25 11:22 Respiratory Culture - Final
Tracheal Aspirate Pseudomonas aeruginosa
Gram Stain - Final
06/11/25 09:27 Blood Culture - Final
Blood/Venous No Growth - Final Report
06/11/25 09:59 Blood Culture - Final
Blood/Venous No Growth - Final Report
06/15/25 10:08 Fungal Culture - Preliminary
Bronch Left Lower Lobe Culture in progress.
Positive cultures are reported as soon as detected.
Final report to follow in four to five weeks.
06/15/25 10:08 Acid Fast Bacilli Smear - Pending
Bronch Left Lower Lobe Acid Fast Bacilli Culture - Pending
06/06/25 07:57 MRSA Screen - Final
Nose No Methicillin Resistant Staphylococcus aureus isolated.
Imaging:
06/16/25 CXR: There is moderate airspace disease in right lower lung field concerning for pneumonia. There is obscuration of the left hemidiaphragm suggesting left lower lobe pneumonia
06/15/25 CXR: No pneumothorax status post bronchoscopy. Progressive homogeneous increased retrocardiac opacity. Suspect mild left perihilar and right infrahilar opacity which could represent atelectasis or pneumonia.
06/13/25 CT a/p: Very limited study. Small volume fluid in the abdomen, particularly in the left abdomen mildly complex. As this fluid is incompletely included, it cannot be determined whether this totally represents likely free fluid or combination
of free fluid and abnormal focal fluid collection. Additional small abnormal focal fluid collections cannot be excluded on the basis of this markedly limited study. Apparent recent prior partial sigmoidectomy with large volume stool seen in the
residual sigmoid colon and rectum.
06/10 CXR: Stable CHF and bibasilar atelectasis and/or pneumonia.
06/08/25 CXR: Diffuse marked colonic dilation. Measurement of caliber of the upper colon is slightly greater then obstruction series of June 07, 2025. Multiple air-fluid levels compatible with stasis. Moderate amount of stool within the inferior
aspect of the right colon as well as within the rectum. No gross evidence for free intraperitoneal air.
06/05/25 CT a/p: Significant gaseous distention of a large portion of the colon. This contributes to limitation of this examination, as the patient cannot be fully included on the [id number] of the CT scanner. If there can be some distal colonic
decompression, repeat scan could be considered, when hopefully the patient could be entirely included on the [id number] of the exam. No gross evidence for free intraperitoneal air. Patchy parenchymal opacity within the visualized lower lung, most
likely atelectasis. Pneumonia is a differential consideration, felt to be less likely based on morphologic appearance.
[2025-06-18] MEDS: VANCOCIN 275 MG IV ×3 (09:39→21:24)
--- NOTE | 2025-06-18 09:45 | PTCARENOTE ---
Pt cat scanned per MD orders this am. Rony OCHOA RN at bedside to eval pt's skin and change ostomy appliance.
[2025-06-18] MEDS: RELISTOR 12 MG SC (10:01)
--- NOTE | 2025-06-18 10:01 | CM ---
Clarified order with Keo Mcduffie that home TPN infusion is on hold till extubation.
Chronic Vent since admission.
Pt has a new colostomy.
As per ID IV antibiotics changed.
TPN remains.
Pt has CHRISTINE and OGT to low suction.
When appropriate will needed PT OT evals for discharge planning.
CM will continue to assess and assist in discharge planning.
PLAN Will depend on hospital course of care.
[2025-06-18] MEDS: NOVOLIN R INSULIN INFUSION 100 IV ×2 (10:06→21:37)
[2025-06-18 10:11] LABS: Glucose - Point of Care 170 mg/dl (70-99)
[2025-06-18] MEDS: TYLENOL ORAL SOLUTION 650 MG TUBE ×2 (10:20→17:33)
--- NOTE | 2025-06-18 10:35 | WOUNDNOTE ---
SACRAL/COCCYX/R BUTTOCKS (with photo flash)
--- NOTE | 2025-06-18 10:42 | WOUNDNOTE ---
WO RN Note: Patient's pedal petechia improved since last week. R dorsal foot with dime sized red ecchymotic area. Silicone border foam applied for protection. Skin on heels intact. R coccyx/buttocks with small stage 1 appearing pressure injury.
Patient cannot be consistently turned d/t respiratory status per discussion with nursing. Sacral shaped silicone border foam applied to sacrum. Silicone border foam applied to R coccyx/buttock. Patient turned to L semi side lying position with help
from LAWRENCE Rivera and LAWRENCE Shukla. Colostomy pink and functioning for brown soft stool. Peristomal blister slightly improved and adhesive/edema related peristomal skin tear pink with small [place] yellow drainage. Silicone foam applied prior to new wafer
application. [place]mas seal, Desiree wafer # [id number] and [place] pouch #[id number] applied. More ostomy supplies left in room. Heels off bed with pillow and air chair cushion. Will inquire about removing knee high Tubigrip stockinet q hs with colorectal
service. Next appliance change due Sunday or Sunday. Patient had a CT of abdomen/pelvis this am. Patient on TPN. Will follow as needed.
[2025-06-18] MEDS: LASIX 20 MG IV (10:44)
[2025-06-18] MEDS: MERREM 500 MG IV ×2 (11:28→17:26)
[2025-06-18] MEDS: STERILE WATER FOR INJECTION 10 ML IV ×2 (11:28→17:26)
[2025-06-18] MEDS: MYCAMINE 105 MG IV (11:30)
[2025-06-18] MEDS: PRECEDEX 100 IV ×2 (11:40→22:05)
--- NOTE | 2025-06-18 12:00 | PTCARENOTE ---
No major changes in physical assessment since am. Precedex gtt added per ....goal is to decrease diprivan requirements. Pt extremely sensitive to lying on left side...desats to 87-88%. Will continue to monitor.
[2025-06-18 12:07] LABS: Glucose - Point of Care 199 mg/dl (70-99)
[2025-06-18 13:14] LABS: Glucose - Point of Care 189 mg/dl (70-99)
--- NOTE | 2025-06-18 13:30 | PTCARENOTE ---
OGT advanced to 76cm per surgery and flushed w/ 30mls of sterile water.
[2025-06-18 14:09] LABS: Glucose - Point of Care 189 mg/dl (70-99)
--- NOTE | 2025-06-18 14:23 | W.PN.INTV ---
Today's Communication / Plan
Recommendations
- Continue nightly Seroquel, start Precedex and attempt to wean propofol/fentanyl
- Wean FiO2 as tolerated
- Lasix 20 mg x 1
- Continue ASV mode
Assessment
-
Assessment: 64-year-old male with a past medical history of cardiomyopathy, hypertension, DM type II, history of chronic opioid use due to chronic arthritis now on buprenorphine, history of ERASMO, venous insufficiency and chronic back pain who
presented with shortness of breath, abdominal distention. Found to have severe colonic distention. Initially treated with neostigmine, attempted sigmoidoscopy without attempt. Underwent exploratory laparotomy 06/08/2025-developed shock requiring
vasopressors and remained on mechanical ventilation. We were consulted on 06/09/2025.
Chronic conditions JEWEL GAUGER: Hypertension, BPH, DM type II, chronic back pain, cardiomyopathy, venous insufficiency, history of ERASMO, severe osteoarthritis, chronic pain management due to arthritis currently on buprenorphine in an effort to get off of
OxyContin/oxycodone,systolic cardiomyopathy.
06/18/2025 Overview: Patient currently intubated, 7 point 40/57/89, current vent settings ASAV 120%, FiO2 70%. Continues to be febrile. MAP of 77, currently on Levophed at 8. Saturating 97%. Current infusions Levophed, TPN, heparin drip, insulin
infusion, fentanyl and propofol infusions. ET tube secretions significantly improved. Low volume ostomy tube output and CHRISTINE drain output noted.
Assessment and plan
#1. Acute hypoxemic respiratory failure post surgery complicated by VAP of LLL
- Initially due to abdominal distention requiring intubation, mechanical ventilation
- Left lower lobe dense consolidation, copious ET tube secretions noted, improving since Bronchoscopic lavage
- Continue broad-spectrum antibiotics, s/p bronchoscopy and BAL 06/16 with extensive suctioning of thick mucoid secretions in LLL. BAL growing Pseudomonas
- Weaning attempts have been failing so far. Tolerating ASV better since Bronchoscopic lavage.
- If unable to wean over the weekend, will start discussions regarding tracheostomy
- Currently on propofol and fentanyl, does not tolerate weaning sedation well. Continue Seroquel 100 mg nightly, initiate Precedex with the goal to wean propofol/fentanyl.
#2. Septic shock suspected-source likely intraperitoneal and LLL pneumonia
- Continues to need pressor support, currently on Levophed
- Continue broad-spectrum antibiotics and antifungal per infectious disease service, micafungin. Zosyn switched to meropenem per ID service, also on vancomycin
- BAL culture showing Pseudomonas
- 06/18, CT chest abdomen pelvis pursued, fluid noted in the abdomen. Discussed with general surgery service, no plans for OR or IR guided drainage
#3. Pseudoobstruction with megacolon, failed conservative management, s/p ex lap
- S/p ex lap, sigmoidectomy and end colostomy, iatrogenic spillage of stool, peritonitis, umbilical hernia repair, 06/08/2025
- Continue IV meropenem, vancomycin and micafungin
- Small-volume stool output noted in the ostomy bag
- N.p.o. currently, TPN infusing
- Increased gastric distention on CXR. Placed NG back to suction.
#4. Acute on chronic heart failure with reduced ejection fraction, LVEF 35%, Stage I diastolic dysfunction
- Patient has been diuresing well with intermittent Lasix
- Lasix 20 mg x 1 today
#5. Paroxysmal atrial flutter.
- DC subcu Lovenox, initiated heparin infusion, tolerating well without any bleeding
- History of cardioversion in January 2025
- Has been on amiodarone as well
#6. Pulmonary hypertension, estimated pulmonary artery systolic pressure 50-55
- Primarily group II PH related to underlying congestive heart failure
- Continue to optimize intravascular volume, keep saturations above 90%, no indication for vasodilator therapy
#7. DM type II with Hyperglycemia
- Continue insulin infusion
#8. Prolonged QTc
- Noted in the setting of hypokalemia, hypomagnesemia and Seroquel therapy
- Since QTc normal now, continued agitation noted with attempted SAT, re-trial of Seroquel. Tolerating well, increased dose to 100 mg nightly.
Other medical diagnoses:
#Morbid obesity
#Venous deficiency
#History of ERASMO
#Chronic pain management due to arthritis currently on buprenorphine in an effort to wean off of OxyContin/oxycodone
-
DVT prophylaxis: -heparin infusion
GI prophylaxis, pantoprazole
-
Prognosis is guarded
-
Critical care statement: A total of 43 minutes of critical care time was provided for this patient today. This includes management of unstable vital signs, evaluation of the patient at bedside, reviewing the patient's pertinent medical records
including ventilator settings, arterial blood gases, radiographs, microbiology, laboratory evaluations and discussion with primary team, critical care nursing, and respiratory therapy.

Data reviewed:
Chest x-ray 06/08/2025: Reviewed, ET tube in place. Left lower lobe airspace disease. Cardiomegaly
-
CT abdomen pelvis 06/05/2025:
The patient is significantly distended, and much of the abdominal and upper pelvic soft tissues extending anterior and to the left of the [id number], which limits evaluation, as it becomes difficult to confidently follow the loops of bowel.
There is distention of the rectum with air and stool, measuring 9.3 cm in diameter. There is marked distention of the sigmoid colon which extends into the right and central upper abdomen, with the sigmoid colon measuring up to 18 cm in diameter. The
sigmoid colon contains a moderate to large amount of stool, mainly inferiorly. There appears to be moderate distention of the rest of the visualized colon.
Small bowel loops are present, and do not appear to be significantly distended, similar appearance to prior examination.
Of note, the cecum cannot be confidently identified on the present examination
No gross evidence of free intraperitoneal air.
There is patchy parenchymal opacity within the visualized lower lungs, most likely atelectasis. A component of pneumonia is also possible, although felt to be less likely. There is no significant pleural effusion and no significant pericardial
effusion.
Coronary artery calcifications are present. Please correlate with symptoms of and risk factors for coronary artery disease, with further workup as clinically appropriate.
Of note, the stomach is not distended.
Subjective Dataa
Subjective Data
Date of Service:
Date of Service: June 18, 2025
Chief Complaint: [employer] Follow Up (Septic shock/respiratory failure require mechanical ventilation)
Subjective:
Currently intubated, mechanically ventilated and sedated.
Review of Systems
General: Unobtainable - Sedation
Objective Data
Data Reviewed
Vital Signs / I&O / Oxygen:
Vital Signs
Temp Pulse Resp BP Pulse Ox
99.1 F 61 14 122/58 96
06/18/25 12:00 06/18/25 14:00 06/18/25 14:00 06/18/25 10:44 06/18/25 14:00
Intake and Output
06/17/25 06/18/25 06/19/25
06:59 06:59 06:59
Intake Total 4846.2 / 5058.5 5098.2 / 5269.5 1432.8 / 1432.8
Output Total 3235 / 3445 4290 / 4605 2665 / 2665
Balance 1611.2 / 1613.5 808.2 / 664.5 -1232.2 / -1232.2
SaO2 [ASV] 96
SaO2 [A/C] 92
SaO2 96
Nasal Cannula flow liters per 3
minute
Physical Exam
General: Comfortable
HEENT: Normocephalic
Cardiovascular: S1-S2 and Peripheral Edema (Significantly improving edema)
Respiratory: Crackles (Improving air entry in the left hemithorax) and ET Tube (Secretions much less and not as purulent appearing )
GI: Soft, Distended, Other (Colostomy with stool output.) and Other (NG tube in place minimal drainage)
Neurology: Other (Currently sedated. ) and Other
Skin: Warm and Other ( lower extremity venous stasis, both extremities are wrapped.)
Labs/Micro/Reports
Lab Data
06/18/25 03:00
06/18/25 03:00
Laboratory Results
06/17/25 06/18/25 06/18/25
17:20 00:32 03:00
APTT 71.3 H 97.4 H
pH 7.40
pCO2 57 H
pO2 89
HCO3 35.3 H
O2 Delivery Level
06/18/25
05:41
APTT 93.6 H
pH
pCO2
pO2
HCO3
O2 Delivery Level
Microbiology
06/13/25 12:07 Blood/Venous Blood Culture - Final
No Growth - Final Report
06/13/25 12:07 Blood/Venous Blood Culture - Final
No Growth - Final Report
06/15/25 10:08 Bronch Left Lower Lobe Acid Fast Bacilli Smear - Preliminary
06/15/25 10:08 Bronch Left Lower Lobe Acid Fast Bacilli Culture - Preliminary
06/15/25 10:08 Bronch Left Lower Lobe Respiratory Culture - Final
Pseudomonas aeruginosa
06/15/25 10:08 Bronch Left Lower Lobe Gram Stain - Final
06/14/25 11:22 Tracheal Aspirate Respiratory Culture - Final
Pseudomonas aeruginosa
06/14/25 11:22 Tracheal Aspirate Gram Stain - Final
06/11/25 09:27 Blood/Venous Blood Culture - Final
No Growth - Final Report
06/11/25 09:59 Blood/Venous Blood Culture - Final
No Growth - Final Report
06/15/25 10:08 Bronch Left Lower Lobe Fungal Culture - Preliminary
Culture in progress.
Positive cultures are reported as soon as detected.
Final report to follow in four to five weeks.
--- NOTE | 2025-06-18 14:44 | W.PN.HOSP.TC ---
Addendum entered and electronically signed by Chase Albarran DO 06/19/25 08:11:
Additional diagnosis
R coccyx/buttocks with small stage 1 appearing pressure injury:
- Patient cannot be consistently turned d/t respiratory status per discussion with nursing.
- Sacral shaped silicone border foam applied to sacrum
- Silicone border foam applied to R coccyx/buttock
Original Note:
Today's Communication/Plan
-
Assessment / Plan
Assessment / Plan
General: Intubated and sedated, diaphoretic
HEENT: NormoCephalic, ETT and OGT in place
Respiratory: Mechanical breath sounds bilaterally, equal chest rise
Cardiac: S1/S2 and Regular Rhythm; No Rub or Gallop
GI: Left-sided colostomy with brown output, CHRISTINE drain with serosanguineous output, midline incision with surgical dressing clean dry intact
Musculoskeletal: No Edema, no deformity
Skin: Warm and dry
: Mason in place
Neuro: Sedated, responds to noxious stimuli
Psych: Unable to assess
Impression:
Mr. Knapp is a 64-year-old male with medical history of HFpEF, A-fib/flutter, IDDM, obesity, chronic pain with subsequent opioid dependence, and chronic constipation with colonic dysmotility who presented with shortness of breath, abdominal
bloating and discomfort, constipation. His last bowel movement was 2 weeks prior to arrival. He is having increasing difficulty breathing due to worsening abdominal distention. He has had multiple similar episodes since September 2024 and has
previously required decompression. He has been treated with enemas and neostigmine previously. Abdominal imaging showed significant colonic distention with air-filled loops of bowel. He also had patchy parenchymal opacities within the mid to
lower lungs. He was mildly hypoxic and has been started on antibiotics. He has remained afebrile with a mild leukocytosis of just over 12,000. He has been admitted for further evaluation and management.
Seen by GI, failed neostigmine, enema, status post nonsuccessful decompressive flexible sigmoidoscopy.
Surgery team consulted.
s/p Exploratory laparotomy, lysis of adhesions, sigmoidectomy, decompression of right colon, abdominal washout, creation of end descending colostomy, umbilical hernia repair on 06/08
admitted to ICU postoperatively, intubated.
Patient had fever,Infectious disease consult, started on zosyn.
Patient was still running fever, added micafungin.
CT chest: New right lower lobe consolidation with air bronchograms, atelectasis versus pneumonia, Possible small bilateral pleural effusions.
CT abdomen/pelvis shows: Small volume fluid in the abdomen, particularly in the left abdomen mildly complex. As this fluid is incompletely included, it cannot be determined whether this totally represents likely free fluid or combination of free
fluid and abnormal focal fluid collection. Additional small abnormal focal fluid collections cannot be excluded on the basis of this markedly limited study
Patient received Lasix.
Assessment/Plan:
Colonic dysmotility/ileus:
- Abdomen remained significantly distended despite multiple medical enemas and subsequent bowel movements
- Upgraded to IMU 06/07, pushed 4 mg neostigmine around 1:30 PM, no significant peristaltic response
- Ultimately required surgical intervention, brought to the OR 06/08 for ex lap with lysis of adhesions and sigmoidectomy with end descending colostomy, decompression of right colon, abdominal washout and umbilical hernia repair
- ICU postoperatively, intubated
- Colorectal surgery following, very little output from ostomy, some increased abdominal distention, holding trickle feeds
- Continue TPN
- Repeat CT abdomen pelvis shows fluid collection, cannot rule out abscess formation, may need further evaluation with ultrasound and potential drain placement
Septic shock, requiring pressors:
- This is likely a primary intra-abdominal infection, stool leakage into the abdomen requiring washout, also likely has concomitant pulmonary infection
- Tracheal aspirate from 06/14 growing pansensitive Pseudomonas
- ID following, continuing vancomycin and micafungin, Zosyn switched to meropenem
Acute hypoxic respiratory failure (currently intubated in the ICU postoperatively)
- Continue mechanical ventilation
- Persistent copious thick secretions and left lower lobe volume loss
- Underwent bronchoscopy with BAL left lower lobe 06/15 by chemistry department chair, cultures growing Pseudomonas, final sensitivities pending although tracheal aspirate from 06/14 growing pansensitive Pseudomonas
- Continue antimicrobial coverage with micafungin, vancomycin, and meropenem
- Hypertonic nebulized saline 3 times a day with albuterol, aggressive chest PT
- Started Seroquel 50 mg nightly, dose increased to 100 mg, monitor QTc
- Added Precedex in an attempt to wean down propofol and fentanyl
- Additional Lasix pushes as needed
- Weaning trials as tolerated
paroxismal A-fib/flutter:
- Currently rate controlled, continue home metoprolol and amiodarone
- Holding home Xarelto .
IDDM:
- Insulin drip.
HFrEF:
- Acute on chronic chronic
- Continue beta-blockade with home metoprolol succinate 100 mg at night
- Lasix pushes as needed, holding spironolactone, monitor daily weights
- No need for afterload reduction due to hypotension
CODE STATUS: Full code
DVT prophylaxis: hold Xarelto
Diet: TPN
Disposition: Continue management in the ICU.
Total time spent on today's encounter was 55 minutes
Anticipated Discharge: > 48 hours
Subjective/Interval History
-
Date of Service: June 18, 2025
Patient was seen and examined at bedside this morning. Remains critically ill. Repeat CT imaging of abdomen pelvis shows possible abscess formation. Zosyn replaced with meropenem.
Objective Data
-
Labs:
Laboratory Results
06/18/25 06/18/25
03:00 05:41
WBC 16.6 H
Hgb 9.0 L
Hct 29.5 L
Plt Count 216
APTT 93.6 H
HCO3 35.3 H
Sodium 139
Potassium 4.2
Chloride 103
Carbon Dioxide 32 H
BUN 23 H
Creatinine 0.6 L
Glucose 174 H
Calcium 7.3 L
Total Bilirubin 0.4
AST 28
ALT < 10
Alkaline Phosphatase 142 H
Vital Signs:
Vital Signs
Temp Pulse Resp BP Pulse Ox
99.1 F 61 14 122/58 96
06/18/25 12:00 06/18/25 14:00 06/18/25 14:00 06/18/25 10:44 06/18/25 14:00
I&O
06/17/25 06/18/25 06/19/25
06:59 06:59 06:59
Intake Total 4846.2 / 5058.5 5098.2 / 5269.5 1432.8 / 1432.8
Output Total 3235 / 3445 4290 / 4605 2665 / 2665
Balance 1611.2 / 1613.5 808.2 / 664.5 -1232.2 / -1232.2
Review of Systems
-
Unable to obtain full review of systems at this time due to: Patient Intubation
Physical Exam
-
General: Intubated
[2025-06-18 15:20] LABS: Glucose - Point of Care 172 mg/dl (70-99)
--- NOTE | 2025-06-18 16:00 | PTCARENOTE ---
Pt reassessed...no major changes. VS documented. Safe environment confirmed. Will continue to monitor.
[2025-06-18 16:10] LABS: Glucose - Point of Care 160 mg/dl (70-99)
[2025-06-18 17:10] LABS: Glucose - Point of Care 159 mg/dl (70-99)
[2025-06-18 18:11] LABS: Glucose - Point of Care 161 mg/dl (70-99)
--- NOTE | 2025-06-18 18:25 | PTCARENOTE ---
at bedside. All questions answered and emotional support provided.
[2025-06-18] MEDS: Parenteral Nutrition, Central 1640 IV (20:04)
[2025-06-18 20:23] LABS: Glucose - Point of Care 150 mg/dl (70-99)
[2025-06-18] MEDS: LIPITOR 40 MG TUBE (21:24)
[2025-06-18] MEDS: PACERONE 200 MG TUBE (21:24)
[2025-06-18] MEDS: SEROQUEL 100 MG TUBE (21:24)
[2025-06-18 22:21] LABS: Glucose - Point of Care 151 mg/dl (70-99)
[2025-06-18] MEDS: VERSED 2 MG IV (22:41)
--- NOTE | 2025-06-18 23:15 | PTCARENOTE ---
pt did not tolerate turn, PRN fentanyl and versed given, precedex and propofol gtts increased - see flowsheets. copious amt of segovia thick secretions through ETT and oral. RT at bedside. FiO2 increased to 100%. pt recovering slowly.
[2025-06-19] MEDS: LEVOPHED 250 IV ×2 (00:01→12:47)
[2025-06-19] MEDS: MERREM 500 MG IV ×5 (00:02→23:17)
[2025-06-19] MEDS: STERILE WATER FOR INJECTION 10 ML IV ×5 (00:02→23:17)
[2025-06-19] MEDS: DIPRIVAN 100 IV ×7 (00:02→21:51)
[2025-06-19 00:03] LABS: Glucose - Point of Care 150 mg/dl (70-99)
[2025-06-19] MEDS: HEPARIN 25000 UNITS/250 ML IV ×3 (01:57→21:52)
[2025-06-19] MEDS: SUBLIMAZE 100 IV ×3 (01:58→19:49)
[2025-06-19 02:13] LABS: Glucose - Point of Care 120 mg/dl (70-99)
[2025-06-19] MEDS: HYDROPHOR 1 APPLIC TOPICAL (03:20)
[2025-06-19 03:55] LABS: B.E. 10.3 mmol/L; HCO3 36.3 mmol/L (21-28); O2 Saturation % 96.7 % (94-98); PCO2 56 mmHg (35-48); PO2 69 mmHg (83-108)
[2025-06-19 03:57] LABS: Hematocrit 29.2 % (39.0-52.0); Hemoglobin 9.0 g/dL (13.0-18.0); Mean Corp Hgb Conc. 30.8 g/dL (33.0-37.0); Mean Corpuscular Volume 84.1 fL (80.0-94.0); Platelet Count 221 10^3/uL (130-400); Red Cell Dist. Width 15.3 % (11.5-14.5)
[2025-06-19 03:59] LABS: Glucose - Point of Care 159 mg/dl (70-99)
[2025-06-19] MEDS: PRECEDEX 100 IV ×3 (04:13→11:18)
[2025-06-19 04:21] LABS: Blood Urea Nitrogen 24 mg/dl (9-20); Calcium 8.0 mg/dl (8.4-10.2); Carbon Dioxide 35 mmol/L (22-30); Chloride 101 mmol/L (98-107); Estimated Creatinine Clearance > 125 ml/min; Glucose 155 mg/dl (70-99); Potassium 4.0 mmol/L (3.5-5.1); Sodium 138 mmol/L (135-145); eGFR > 60.00
[2025-06-19 04:49] LABS: APTT 72.2 Sec (23.4-35.0)
--- NOTE | 2025-06-19 05:38 | PTCARENOTE ---
AM labs sent. pt continues with copious amt of secretions. FiO2 currently @ 70%. wound care to LLE done. precedex/fent/prop/levo/heparin/TPN/insulin gtts continue. otherwise assessment unchanged - care ongoing.
[2025-06-19] MEDS: TYLENOL ORAL SOLUTION 650 MG TUBE (05:50)
[2025-06-19] MEDS: SUBLIMAZE 50 MCG IV ×4 (05:51→11:18)
[2025-06-19 06:00] VITALS: BMI 40.6
[2025-06-19 06:10] LABS: Glucose - Point of Care 155 mg/dl (70-99)
[2025-06-19] MEDS: SODIUM CHLORIDE 3% FOR INHALATION 1 VIAL INH ×3 (07:31→20:19)
[2025-06-19] MEDS: VENTOLIN NEBULES 2.5 MG INH ×3 (07:31→20:19)
[2025-06-19] MEDS: NSS (PRESERVATIVE FREE) 10 ML IV (07:45)
[2025-06-19] MEDS: PROTONIX IV 40 MG IV (07:45)
[2025-06-19] MEDS: SUBUTEX 4 MG SL (07:46)
--- NOTE | 2025-06-19 07:48 | PN.DE.MGMTRT ---
Insulin Management
- -
06/19/2025: Diabetes Management Follow up
Patient admitted 06/05 with c/o difficulty breathing. Diabetes management consult 06/15. PMH 5 weeks of constipation with abdominal distention, HTN, afib, chf. Prior to admission was taking Lantus 24 units daily with NovoLog 20 units AC and Farxiga 5
mg daily. A1C on admission 7.1%, cr today .5, eGFR > 60.
Patient is currently intubated and sedated. Information obtained from chart and patient nurse and pharmacist. Patient s/p OR 06/08 for lysis of adhesions, sigmoidectomy, with end descending colostomy.
Currently on critical care glycemic protocol which was started 06/12, Glucose range 120 to 159. Patient has required 5 to 8 units of insulin per hour.
Receiving TPN, holding trickle feeds. Will cont Q 6 hour NovoLog sq when tube feeds resumed.
Discussed with nurse. Will cont to follow.
Diabetes History
- -
Type of Diabetes: 2 requiring insulin
Pre-Admission Diabetes Regimen
06/19/25
03:48
Creatinine 0.5 L
Insulin Pump Settings
IP Diabetes Regimen
06/18/25 06/18/25 06/18/25
08:03 10:00 11:56
Glucose
POC Glucose 170 H 170 H 199 H
06/18/25 06/18/25 06/18/25
13:02 13:57 15:07
Glucose
POC Glucose 189 H 189 H 172 H
06/18/25 06/18/25 06/18/25
15:59 16:57 17:59
Glucose
POC Glucose 160 H 159 H 161 H
06/18/25 06/18/25 06/18/25
20:11 22:09 23:53
Glucose
POC Glucose 150 H 151 H 150 H
06/19/25 06/19/25 06/19/25
02:00 03:47 03:48
Glucose 155 H
POC Glucose 120 H 159 H
06/19/25
05:58
Glucose
POC Glucose 155 H
Patient Education
--- NOTE | 2025-06-19 08:00 | PN.CDI ---
CDI
- -
CDI:
Physician Documentation Request
Admit Date: 06/06/25 02:11
Dear Doctor Avis,
Please review the following and provide your response in the progress notes.
Clinical Indicators:
Pt admitted with Colonic Dysmotility/megacolon s/p exp lap /sigmoidectomy and colostomy creation on 06/08
Documented per [facility] NOTE 06/18@ 1042, ' R coccyx/buttocks with small stage 1 appearing pressure injury.....Patient cannot be consistently turned d/t respiratory status per discussion with nursing. Sacral shaped silicone border foam applied to
sacrum. Silicone border foam applied to R coccyx/buttock.'
Physician documentation of the type and location of wounds is required for compliant documentation. Based on the above clinical findings and your assessment, please provide the following in your progress note:
1. Location of the ulcer/wound, including laterality.
2. Type (etiology) of ulcer/wound:
- Pressure (decubitus) ulcer
- Non-pressure ulcer
- Other ( please specify)
Use of terms such as suspected, likely, concern for, or probable (associated with a specific diagnosis that is being evaluated, monitored, or treated as if it exists) are acceptable and can be coded in the inpatient setting, when documented at the
time of discharge.
Thank you,
Alia Banerjee RN
CDI Specialist
[facility]
Please use your independent medical judgment in providing your response.
*Source: National Pressure Ulcer Advisory Panel (NPUAP)
[2025-06-19 08:07] LABS: Glucose - Point of Care 145 mg/dl (70-99)
--- NOTE | 2025-06-19 09:10 | PHA.VAN.FU ---
Addendum entered and electronically signed by Hannah Love [facility] 06/19/25 09:27:
Agree with assessment and plan
Original Note:
Vancomycin Assessment / Plan
- Assessment
Renal Function: Stable
WBC's are: Trending Down
In the past 24 hrs, patient has been: Febrile
Concomitant Antimicrobials: meropenem
- Assessment - Therapeutic Drug Monitoring
Random Level: 14.0 - drawn ~6.25H after last dose of 1250mg
- Dosing Plan
Adjust Regimen to: 1750mg q12h
- Monitoring Plan
No level(s) ordered at this time: consider getting P/T within the next few days to assess pt specific PK
- Follow Up
Pharmacy will continue to follow.
Vancomycin Follow UP
- -
Patient Age: 64
Patient Sex: Male
Vancomycin Day #: 3
Indication: Pulmonary/Respiratory
Requesting Provider: Dr. Albarran/Dr. Quispe
Pertinent Antimicrobial Allergies:
NKDA
Height / Weight:
Height 6 ft 3 in
Actual Weight 147.4 kg
Pertinent Past Medical History: BMI 40
- Vital Signs / Lab Results
Temp Pulse Resp BP Pulse Ox
100.8 F H 67 16 154/62 96
06/19/25 08:46 06/19/25 07:33 06/19/25 07:33 06/18/25 21:24 06/19/25 07:39
Lab Results - Hematology
06/17/25 06/18/25 06/19/25
02:16 03:00 03:48
WBC 18.0 H 16.6 H 14.0 H
Lab Results - Chemistry
06/17/25 06/18/25 06/19/25
02:16 03:00 03:48
BUN 24 H 23 H 24 H
Creatinine 0.6 L 0.6 L 0.5 L
Estimated Creat Clear > 125 > 125 > 125
Albumin 2.2 L 2.3 L
Microbiology Results
06/17/25 13:11 MRSA Screen - Final
Nose No Methicillin Resistant Staphylococcus aureus isolated.
06/13/25 12:07 Blood Culture - Final
Blood/Venous No Growth - Final Report
06/13/25 12:07 Blood Culture - Final
Blood/Venous No Growth - Final Report
06/15/25 10:08 Acid Fast Bacilli Smear - Preliminary
Bronch Left Lower Lobe Acid Fast Bacilli Culture - Preliminary
06/15/25 10:08 Respiratory Culture - Final
Bronch Left Lower Lobe Pseudomonas aeruginosa
Gram Stain - Final
06/14/25 11:22 Respiratory Culture - Final
Tracheal Aspirate Pseudomonas aeruginosa
Gram Stain - Final
Therapeutic Drug Monitoring
Random Vancomycin 14.0 ug/ml 06/19/25 03:48
--- NOTE | 2025-06-19 09:13 | PTCARENOTE ---
Addendum entered by Lynsey Pete RN 06/19/25 10:35:
Dr Paul in to assess patient. fred removed by him@distal portion of incision, cultures obtained. packed by MD, dry sterile dressing applied
Original Note:
patient report received, assessments per work list. diprivan weaned to off, precedex increased to manage anxiety and agitation. patient follows commands. attempts to to pull at lines. restraints maintained for patient safety. does follow commands
but is anxious with stimulation. cooling blanket resumed. ett suctions for copious segovia thick secretions. intermittent cuff leak. nsr, levophed per work list. insulin per glycemic. lungs with coarse breath sounds. diminished left base. abdomen soft,
distended. no bowel sounds auscultated. stoma budded, no stool, no flatus. ogt to suction, placement verified. draining green fluid. rotation, percussion per orders.
--- NOTE | 2025-06-19 09:25 | W.PN.ID1 ---
Date of Service
Date of Service: June 19, 2025
Today's Communication
Continue broad-spectrum abx's.
Assessment / Plan
# Purulent peritonitis
# Colonic inertia with megacolon; status post ex lap, decompression, colostomy, stool leakage into the abdomen requiring washout June 08, 2025
# s/p Septic shock; on low dose pressor
# PNA, Pseudomonas
# Fever - ? due to Precedex, resumed 06/18
# Leukocytosis continue to trend down
# VDRF
- 06/08/25 Exploratory laparotomy, lysis of adhesions, sigmoidectomy, decompression of right colon, abdominal washout, creation of end descending colostomy, umbilical hernia repair
- No OR cx
- Blood cultures pending; no growth to date
-06/15 s/p bronch with airway clearance; cx Pseudomonas
-06/[address] a/p: limited study but no obvious abscess; + free fluid in abdomen
-06/19 Colorectal opened midline abd distal incision, sent fluid for cx - pending
- Continue empiric micafungin (d#8).
- Continue Vancomycin IV (d3).
- s/p Zosyn(8d) -> continue meropenem (d2).
- Trend temps, WBC.
- Pt remains critically ill on vent.
# Conditions [employer]
HFrEF
HTN
DM
Afib
HLD
Colonic Inertia / Dysmotility
Chronic opioid dependence
Advanced bilateral lower extremity venous insufficiency
Morbid obesity (BMI~43)
Chief Complaint
-: Clinical Sepsis and Other (Purulent peritonitis)
Subjective / Review of Systems
On vent
Vital Signs / Physical Exam
Vital Signs
Vital Signs
Temp Pulse Resp BP Pulse Ox
100.8 F H 67 16 154/62 96
06/19/25 08:46 06/19/25 07:33 06/19/25 07:33 06/18/25 21:24 06/19/25 07:39
Selected Entries
06/19/25
07:27
Temp 101 F H
Physical Exam
Constitutional: Acutely Ill and Obese
Cardiovascular: Regular Rate and S1/S2
Pulmonary: Coarse and Other (on vent)
Gastrointestinal: Soft, Non Tender and Other (Colostomy with soft stool; CHRISTINE drain serosanguinous fluid; midline incision dressing dry)
Genito-Urinary: Mason and Clear Urine
Extremities: Venous Insufficiency; Negative Edema
Objective Data
Lab Data
Lab Results
06/19/25 03:48
06/19/25 03:48
PT 17.4 Sec (11.4-14.6) H 06/09/25 00:01
INR 1.40 06/09/25 00:01
APTT 72.2 Sec (23.4-35.0) H 06/19/25 03:48
Estimated Creat Clear > 125 ml/min 06/19/25 03:48
Lactic Acid 0.9 mmol/L (0.7-2.0) 06/09/25 00:01
Total Bilirubin 0.4 mg/dl (0.2-1.3) 06/18/25 03:00
AST 28 U/L (17-59) 06/18/25 03:00
ALT < 10 U/L (0-50) 06/18/25 03:00
Alkaline Phosphatase 142 U/L (38-126) H 06/18/25 03:00
C-Reactive Protein > 270.00 mg/L (0.0-10.00) H 06/11/25 03:22
Most recent labs reviewed.
Micro Results:
06/17/25 13:11 MRSA Screen - Final
Nose No Methicillin Resistant Staphylococcus aureus isolated.
06/13/25 12:07 Blood Culture - Final
Blood/Venous No Growth - Final Report
06/13/25 12:07 Blood Culture - Final
Blood/Venous No Growth - Final Report
06/15/25 10:08 Acid Fast Bacilli Smear - Preliminary
Bronch Left Lower Lobe Acid Fast Bacilli Culture - Preliminary
06/15/25 10:08 Respiratory Culture - Final
Bronch Left Lower Lobe Pseudomonas aeruginosa
Gram Stain - Final
06/14/25 11:22 Respiratory Culture - Final
Tracheal Aspirate Pseudomonas aeruginosa
Gram Stain - Final
06/11/25 09:27 Blood Culture - Final
Blood/Venous No Growth - Final Report
06/11/25 09:59 Blood Culture - Final
Blood/Venous No Growth - Final Report
06/15/25 10:08 Fungal Culture - Preliminary
Bronch Left Lower Lobe Culture in progress.
Positive cultures are reported as soon as detected.
Final report to follow in four to five weeks.
06/06/25 07:57 MRSA Screen - Final
Nose No Methicillin Resistant Staphylococcus aureus isolated.
Imaging:
06/18/25 CT c/a/p: Suspected moderate volume mildly complex presumed free fluid in the abdomen, overall increased in volume in comparison to recent prior study, most prominently located in the right subhepatic region, right subdiaphragmatic region
and likely left abdomen/pelvis.
06/16/25 CXR: There is moderate airspace disease in right lower lung field concerning for pneumonia. There is obscuration of the left hemidiaphragm suggesting left lower lobe pneumonia
06/15/25 CXR: No pneumothorax status post bronchoscopy. Progressive homogeneous increased retrocardiac opacity. Suspect mild left perihilar and right infrahilar opacity which could represent atelectasis or pneumonia.
06/13/25 CT a/p: Very limited study. Small volume fluid in the abdomen, particularly in the left abdomen mildly complex. As this fluid is incompletely included, it cannot be determined whether this totally represents likely free fluid or combination
of free fluid and abnormal focal fluid collection. Additional small abnormal focal fluid collections cannot be excluded on the basis of this markedly limited study. Apparent recent prior partial sigmoidectomy with large volume stool seen in the
residual sigmoid colon and rectum.
06/10 CXR: Stable CHF and bibasilar atelectasis and/or pneumonia.
06/08/25 CXR: Diffuse marked colonic dilation. Measurement of caliber of the upper colon is slightly greater then obstruction series of June 07, 2025. Multiple air-fluid levels compatible with stasis. Moderate amount of stool within the inferior
aspect of the right colon as well as within the rectum. No gross evidence for free intraperitoneal air.
06/05/25 CT a/p: Significant gaseous distention of a large portion of the colon. This contributes to limitation of this examination, as the patient cannot be fully included on the [id number] of the CT scanner. If there can be some distal colonic
decompression, repeat scan could be considered, when hopefully the patient could be entirely included on the [id number] of the exam. No gross evidence for free intraperitoneal air. Patchy parenchymal opacity within the visualized lower lung, most
likely atelectasis. Pneumonia is a differential consideration, felt to be less likely based on morphologic appearance.
Care Review
Plan reviewed with: Nurse
[2025-06-19] MEDS: RELISTOR 12 MG SC (09:30)
[2025-06-19] MEDS: MYCAMINE 105 MG IV (09:49)
[2025-06-19] MEDS: NOVOLIN R INSULIN INFUSION 100 IV ×2 (10:07→23:19)
[2025-06-19 10:13] LABS: Glucose - Point of Care 178 mg/dl (70-99)
[2025-06-19] MEDS: VANCOCIN 535 MG IV ×2 (11:18→17:38)
--- NOTE | 2025-06-19 11:28 | W.PN.CRS1 ---
Today's Communication / Plan
-
Maintain TPN
Lower portion of midline wound was opened, cultures pending
Assessment/Plan
-
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
obstipation associated with megacolon. WBC 11.[address] showing gaseous distention of the colon, diameter of the sigmoid up to 18 cm in diameter. He received a dose of neostigmine, which failed. He underwent attempt at decompressive sigmoidoscopy,
but encountered too much stool. Due to refractory nature of his issue, we proceeded with surgery.
POD 11 exlap, sigmoidectomy, end-colostomy; iatrogenic spillage of stool - controlled and abdomen washed out, no colonic ischemia or perforation
S/p bronch 06/15 for right-sided mucous plugging
Tmax 101.4, VSS
WBC 16.0 from 18.0, Hb 9.0 from 9.5, Cr 0.6
�Respiratory failure, c/b mucous plugging, pneumonia; remains intubated/vented with elevated O2 requirement
-Cont chest PT, pulmonary toilet
�Continue pain control and sedation
� Maintain MAP greater than 65, wean levo as tolerated
� Cont for hepgtt
� Continue n.p.o.; cont TPN
�cont holding tube feeds
� Appreciate ID, on zosyn
�Septic shock likely due to pneumonia
-Lower portion of abdominal wound was opened at bedside (fred removed). Dry packing into wound twice a day. Cultures sent.
� Continue Mason, strict I&O's
�Appreciate plastics scientist and primary
Subjective Data
Procedure
06/08/25- Exploratory laparotomy, lysis of adhesions, sigmoidectomy, decompression of right colon, abdominal washout, creation of end descending colostomy, umbilical hernia repair
Subjective Data
Date of Service: June 19, 2025
Patient is intubated and sedated.
Objective Data
-
Vital Signs
Temp Pulse Resp BP Pulse Ox
100.5 F H 64 28 154/62 97
06/19/25 10:28 06/19/25 09:30 06/19/25 09:30 06/18/25 21:24 06/19/25 09:30
Intake & Output
06/18/25 06/19/25 06/20/25
06:59 06:59 06:59
Intake Total 5098.2 / 5269.5 4405.7 / 4574.9 697.1 / 697.1
Output Total 4290 / 4605 5655 / 5655 755 / 755
Balance 808.2 / 664.5 -1249.3 / -1080.1 -57.9 / -57.9
Intake:
IV fluids (Total) 2249.2 / 2352.5 2493.7 / 2594.9 395.1 / 395.1
Fentanyl gtt 337.5 / 352.5 345.0 / 355.0 40 / 40
Insulin 139.0 / 146.0 181 / 189 32 / 32
Levophed gtt 514.0 / 544.0 645.0 / 667.5 75.0 / 75.0
Precedex 199.8 / 221.9 125.4 / 125.4
Propofol 696.7 / 724.0 545.9 / 559.5 22.7 / 22.7
heparin 562 / 586 577 / 602 100 / 100
IV piggybacks 800 / 800 100 / 100
TPN/PPN 1864 / 1932 1632 / 1700 272 / 272
Tube feeding 20 / 20
Feeding tube flush amount 105 / 105
Amount instilled into GI Tube ( 60 / 60 180 / 180 30 / 30
Total)
Stephens Sump 60 / 60 180 / 180 30 / 30
Output:
Liquid stool amount 60 / 60
Colostomy 60 / 60
Drain Output (Total) 340 / 340 140 / 140 230 / 230
Right Lower Abdomen [place]- 340 / 340 140 / 140 230 / 230
Vo
Gastrointestinal tube output ( 150 / 150 500 / 500
Total)
Stephens Sump 150 / 150 500 / 500
Urine, Mason 3800 / 4115 4955 / 4955 525 / 525
Lab Results
06/19/25 03:48
06/19/25 03:48
Physical Exam
-
General: Other (Intubated and sedated)
Abdomen: Soft, Distended (Mild) and Other (Midline midline wound with fred in place, some purulent segovia drainage from the lower aspect of the wound, CHRISTINE drain serosanguineous)
Skin: Warm and Dry
Wound: Prurient Drainage (Lower aspect of midline wound)
[2025-06-19 12:06] LABS: Glucose - Point of Care 158 mg/dl (70-99)
[2025-06-19 12:11] LABS: APTT 66.2 Sec (23.4-35.0)
--- NOTE | 2025-06-19 12:40 | OR.RPT ---
Operative Report
Operative Report
Rapid sequence intubation (ET tube exchange)
Indication. Significant ET tube cuff leak despite repeatedly inflation. More then 60% loss of tidal volume.
Pre-medications: None
Patient was placed in Sampson position. 100% FiO2 was used on Ventilator to pre-oxygenate. Patient was already on sedation with Fentanyl, Precedex. Propofol infusion was started in addition. Once patient was deeply sedated, 100 mg of Succinylcholine
was injected. Oral suctioning was performed which showed thick milky secretions. GlideScope was used, blade size #4, and gently advanced, ET tube entering larynx was visualized. Extensive thick secretions were oozing around the ET tube. ET tube was
disconnected from Ventilator and bougie was advanced thru it, under direct vision. Cuff was deflated and ET tube was removed, keeping bougie in place. New 8.0 ET tube was then advanced over bougie and passed thru the vocal cords under Glidescope
vision. Cuff was inflated, bougie was removed. Patient desaturated quickly following disconnect from Ventilator, lowest O2 saturation was 70%, which lasted few seconds. Color change was confirmed and patient was bagged until saturations was 88%.
Subsequently patient was connected to ventilator with increased PEE of 15. Bilateral good air entry noted. Tube was secured at 26 cm at the teeth. O2 saturation 99%. Thick milky secretions were suctioned with in-line suctioning catheter. Patient
stayed hemodynamically stable throughout the procedure.
Time spent: 25 min
Complications: None
Date of Service: 06/19/2025
--- NOTE | 2025-06-19 13:07 | PTCARENOTE ---
patient became very agitated off propofol, attempting to extubate self, required 4 staff to maintain patient safety, Precedex at max doses, not effective. cuff leak much more prominent, RT at bedside. Sprinkling System Installer at bedside. propofol resumed.
patient ETT exchanged. hypotensive,Levophed resumed. cxr post reintubation. suctioning for copious thick segovia sputum, sedation to keep patient deeply sedated per MD. ogt draining large amount green fluid
--- NOTE | 2025-06-19 13:19 | W.PN.HOSP.TC ---
Today's Communication/Plan
-
Assessment / Plan
Assessment / Plan
General: Intubated and sedated, diaphoretic
HEENT: NormoCephalic, ETT and OGT in place
Respiratory: Mechanical breath sounds bilaterally, equal chest rise
Cardiac: S1/S2 and Regular Rhythm; No Rub or Gallop
GI: Left-sided colostomy with minimal output, CHRISTINE drain with very little output which is mostly serous, midline incision with lower fred removed and wound packed
Musculoskeletal: No Edema, no deformity
Skin: Warm and dry
: Mason in place
Neuro: Sedated, responds to noxious stimuli
Psych: Unable to assess
Impression:
Mr. Knapp is a 64-year-old male with medical history of HFpEF, A-fib/flutter, IDDM, obesity, chronic pain with subsequent opioid dependence, and chronic constipation with colonic dysmotility who presented with shortness of breath, abdominal
bloating and discomfort, constipation. His last bowel movement was 2 weeks prior to arrival. He is having increasing difficulty breathing due to worsening abdominal distention. He has had multiple similar episodes since September 2024 and has
previously required decompression. He has been treated with enemas and neostigmine previously. Abdominal imaging showed significant colonic distention with air-filled loops of bowel. He also had patchy parenchymal opacities within the mid to
lower lungs. He was mildly hypoxic and has been started on antibiotics. He has remained afebrile with a mild leukocytosis of just over 12,000. He has been admitted for further evaluation and management.
Seen by GI, failed neostigmine, enema, status post nonsuccessful decompressive flexible sigmoidoscopy.
Surgery team consulted.
s/p Exploratory laparotomy, lysis of adhesions, sigmoidectomy, decompression of right colon, abdominal washout, creation of end descending colostomy, umbilical hernia repair on 06/08
admitted to ICU postoperatively, intubated.
Patient had fever,Infectious disease consult, started on zosyn.
Patient was still running fever, added micafungin.
CT chest: New right lower lobe consolidation with air bronchograms, atelectasis versus pneumonia, Possible small bilateral pleural effusions.
CT abdomen/pelvis shows: Small volume fluid in the abdomen, particularly in the left abdomen mildly complex. As this fluid is incompletely included, it cannot be determined whether this totally represents likely free fluid or combination of free
fluid and abnormal focal fluid collection. Additional small abnormal focal fluid collections cannot be excluded on the basis of this markedly limited study
Patient received Lasix.
Assessment/Plan:
Colonic dysmotility/ileus:
- Abdomen remained significantly distended despite multiple medical enemas and subsequent bowel movements
- Upgraded to IMU 06/07, pushed 4 mg neostigmine around 1:30 PM, no significant peristaltic response
- Ultimately required surgical intervention, brought to the OR 06/08 for ex lap with lysis of adhesions and sigmoidectomy with end descending colostomy, decompression of right colon, abdominal washout and umbilical hernia repair
- ICU postoperatively, intubated
- Colorectal surgery following, very little output from ostomy, some increased abdominal distention, holding trickle feeds
- Lower fred removed from surgical incision with mucopurulent output, wound packed, cultures obtained, redressed
- Continue TPN
- Repeat CT abdomen pelvis shows fluid collection, cannot rule out abscess formation, may need further evaluation with ultrasound and potential drain placement
Septic shock, requiring pressors:
- This is likely a primary intra-abdominal infection, stool leakage into the abdomen requiring washout, also likely has concomitant pulmonary infection
- Tracheal aspirate from 06/14 growing pansensitive Pseudomonas
- ID following, continuing vancomycin and micafungin, Zosyn switched to meropenem
- Leukocytosis improving, remains persistently febrile
- Was off vasopressors this morning since propofol was stopped, restart vasopressors as needed
Acute hypoxic respiratory failure (currently intubated in the ICU postoperatively)
- Continue mechanical ventilation, ETT replaced today 06/19 by chief controller station
- Persistent copious thick secretions and left lower lobe volume loss
- Underwent bronchoscopy with BAL left lower lobe 06/15 by chief controller station, cultures growing Pseudomonas, final sensitivities pending although tracheal aspirate from 06/14 growing pansensitive Pseudomonas
- Continue antimicrobial coverage with micafungin, vancomycin, and meropenem
- Hypertonic nebulized saline 3 times a day with albuterol, aggressive chest PT
- Started Seroquel 50 mg nightly, dose increased to 100 mg, monitor QTc
- Continue Precedex, discontinued propofol and fentanyl, use fentanyl pushes as needed
- Additional Lasix pushes as needed
- Weaning trials as tolerated
paroxismal A-fib/flutter:
- Currently rate controlled, holding home metoprolol, continue home amiodarone 200 mg at night via OGT
- Holding home Xarelto
IDDM:
- Insulin drip.
HFrEF:
- Acute on chronic chronic
- Holding home metoprolol succinate 100 mg
- Lasix pushes as needed, holding spironolactone, monitor daily weights
- No need for afterload reduction due to hypotension
CODE STATUS: Full code
DVT prophylaxis: hold Xarelto
Diet: TPN
Disposition: Continue management in the ICU.
Total time spent on today's encounter was 56 minutes
Anticipated Discharge: > 48 hours
Subjective/Interval History
-
Date of Service: June 19, 2025
Patient was seen and examined at bedside this morning. Lower abdominal fred were removed and wound was packed by surgical team. Output from CHRISTINE drain and colostomy has been very minimal.
Objective Data
-
Labs:
Laboratory Results
06/19/25 06/19/25 06/19/25
03:48 11:54 18:30
WBC 14.0 H
Hgb 9.0 L
Hct 29.2 L
Plt Count 221
APTT 72.2 H 66.2 H Pending
HCO3 36.3 H
Sodium 138
Potassium 4.0
Chloride 101
Carbon Dioxide 35 H
BUN 24 H
Creatinine 0.5 L
Glucose 155 H
Calcium 8.0 L
Vital Signs:
Vital Signs
Temp Pulse Resp BP Pulse Ox
100.7 F H 58 31 154/62 94
06/19/25 11:00 06/19/25 13:00 06/19/25 13:00 06/18/25 21:24 06/19/25 13:00
I&O
06/18/25 06/19/25 06/20/25
06:59 06:59 06:59
Intake Total 5098.2 / 5269.5 4405.7 / 4574.9 852.4 / 852.4
Output Total 4290 / 4605 5655 / 5655 805 / 805
Balance 808.2 / 664.5 -1249.3 / -1080.1 47.4 / 47.4
Review of Systems
-
Unable to obtain full review of systems at this time due to: Patient Intubation
Physical Exam
-
General: Intubated
[2025-06-19 13:49] LABS: B.E. 6.7 mmol/L; HCO3 33.3 mmol/L (21-28); O2 Saturation % 99.4 % (94-98); PCO2 59 mmHg (35-48); PO2 90 mmHg (83-108)
[2025-06-19 14:18] LABS: Glucose - Point of Care 160 mg/dl (70-99)
--- NOTE | 2025-06-19 14:42 | W.PN.INTV ---
Today's Communication / Plan
Recommendations
- Cuff leak noted, endotracheal tube exchanged
- Deep sedation, discontinue Precedex, resume propofol
- Plan for bronchoscopy to clear with copious secretions on 06/20
Assessment
-
Assessment: 64-year-old male with a past medical history of cardiomyopathy, hypertension, DM type II, history of chronic opioid use due to chronic arthritis now on buprenorphine, history of ERASMO, venous insufficiency and chronic back pain who
presented with shortness of breath, abdominal distention. Found to have severe colonic distention. Initially treated with neostigmine, attempted sigmoidoscopy without attempt. Underwent exploratory laparotomy 06/08/2025-developed shock requiring
vasopressors and remained on mechanical ventilation. We were consulted on 06/09/2025.
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
OxyContin/oxycodone,systolic cardiomyopathy.
06/19/2025 Overview: Patient currently intubated, 7.42/56/79 on ASV at 120%, PEEP of 10 and FiO2 70%. MAP of 78, peripheral saturation 100%. Current infusions Levophed at 2, fentanyl, Precedex, TPN, insulin and heparin infusion. Patient has again
increased to thick secretions through the ET tube and desaturates to 70% with minimal movement. Low volume ostomy output. Mild purulent discharge from incision site inferiorly.
Assessment and plan
#1. Acute hypoxemic respiratory failure post surgery complicated by VAP of LLL
- Initially due to abdominal distention requiring intubation, mechanical ventilation
- Left lower lobe dense consolidation, copious ET tube secretions noted, improved after Bronchoscopic lavage, again worse 06/19
- Continue broad-spectrum antibiotics, s/p bronchoscopy and BAL 06/16 with extensive suctioning of thick mucoid secretions in LLL. BAL growing Pseudomonas/Yeast
- Weaning attempts have been failing so far. Tolerated ASV better since Bronchoscopic lavage. Switch back to volume assist-control.
- If unable to wean over the weekend, will start discussions regarding tracheostomy
- Continue Seroquel 100 mg nightly.
#1a. Difficulty ventilator weaning.
- Patient continues to fail attempt at weaning.
- Significant agitation and desaturations with minimal decrease in sedation. Patient was weaned off propofol and trialed on Precedex and fentanyl and after some time again started getting agitated and started desaturating.
- Body habitus excessive secretions, severe pneumonia as well as intra-abdominal processes are contributing to failure to liberate from mechanical ventilation
- If unable to wean over the weekend, will start discussions regarding tracheostomy
#1b. Endotracheal cuff leak 06/19.
- Significant air leak with loss of tidal volume despite repeated attempts at cuff inlation
- ET tube was exchanged over bougie at bedside, 8.0 ET tube placed without complications.
- Cuff leak resolved post ET tube exchange.
#2. Septic shock suspected-source likely intraperitoneal and LLL pneumonia
- Continues to need pressor support, currently on Levophed
- Continue broad-spectrum antibiotics and antifungal per infectious disease service, micafungin. Zosyn switched to meropenem per ID service, also on vancomycin
- BAL culture showing Pseudomonas
- 06/18, CT chest abdomen pelvis pursued, fluid noted in the abdomen. Discussed with general surgery service, no plans for OR or IR guided drainage
- Purulent discharge from inferior margin of surgical site, bedside drainage on 06/19, sent for cultures.
#3. Pseudoobstruction with megacolon, failed conservative management, s/p ex lap
- S/p ex lap, sigmoidectomy and end colostomy, iatrogenic spillage of stool, peritonitis, umbilical hernia repair, 06/08/2025
- Continue IV meropenem, vancomycin and micafungin
- Small-volume stool output noted in the ostomy bag
- N.p.o. currently, TPN infusing
- Increased gastric distention on CXR. Placed NG back to suction 06/19.
#4. Acute on chronic heart failure with reduced ejection fraction, LVEF 35%, Stage I diastolic dysfunction
- Patient has been diuresing well with intermittent Lasix
- Even I/O over last 24 hrs, skip diuresis today.
#5. Paroxysmal atrial flutter.
- DC subcu Lovenox, initiated heparin infusion, tolerating well without any bleeding
- History of cardioversion in January 2025
- Has been on amiodarone as well
#6. Pulmonary hypertension, estimated pulmonary artery systolic pressure 50-55
- Primarily group II PH related to underlying congestive heart failure
- Continue to optimize intravascular volume, keep saturations above 90%, no indication for vasodilator therapy
#7. DM type II with Hyperglycemia
- Continue insulin infusion
#8. Prolonged QTc
- Noted in the setting of hypokalemia, hypomagnesemia and Seroquel therapy
- Since QTc normal now, continued agitation noted with attempted SAT, re-trial of Seroquel. Tolerating well, increased dose to 100 mg nightly.
Other medical diagnoses:
#Morbid obesity
#Venous deficiency
#History of ERASMO
#Chronic pain management due to arthritis currently on buprenorphine in an effort to wean off of OxyContin/oxycodone
-
DVT prophylaxis: -heparin infusion
GI prophylaxis, pantoprazole
-
Prognosis is guarded
-
Critical care statement: A total of 63 minutes of critical care time was provided for this patient today. This includes management of unstable vital signs, evaluation of the patient at bedside, reviewing the patient's pertinent medical records
including ventilator settings, arterial blood gases, radiographs, microbiology, laboratory evaluations and discussion with primary team, critical care nursing, and respiratory therapy.

Data reviewed:
Chest x-ray 06/08/2025: Reviewed, ET tube in place. Left lower lobe airspace disease. Cardiomegaly
-
CT abdomen pelvis 06/05/2025:
The patient is significantly distended, and much of the abdominal and upper pelvic soft tissues extending anterior and to the left of the [id number], which limits evaluation, as it becomes difficult to confidently follow the loops of bowel.
There is distention of the rectum with air and stool, measuring 9.3 cm in diameter. There is marked distention of the sigmoid colon which extends into the right and central upper abdomen, with the sigmoid colon measuring up to 18 cm in diameter. The
sigmoid colon contains a moderate to large amount of stool, mainly inferiorly. There appears to be moderate distention of the rest of the visualized colon.
Small bowel loops are present, and do not appear to be significantly distended, similar appearance to prior examination.
Of note, the cecum cannot be confidently identified on the present examination
No gross evidence of free intraperitoneal air.
There is patchy parenchymal opacity within the visualized lower lungs, most likely atelectasis. A component of pneumonia is also possible, although felt to be less likely. There is no significant pleural effusion and no significant pericardial
effusion.
Coronary artery calcifications are present. Please correlate with symptoms of and risk factors for coronary artery disease, with further workup as clinically appropriate.
Of note, the stomach is not distended.
Subjective Dataa
Subjective Data
Date of Service:
Date of Service: June 19, 2025
Chief Complaint: Neonatal Critical Care Nurse Follow Up (Septic shock/respiratory failure require mechanical ventilation)
Subjective:
Patient currently intubated, mechanically ventilated and sedated
Review of Systems
General: Unobtainable - Sedation
Genitourinary: Other
Objective Data
Data Reviewed
Vital Signs / I&O / Oxygen:
Vital Signs
Temp Pulse Resp BP Pulse Ox
100.2 F 62 26 154/62 96
06/19/25 14:00 06/19/25 14:30 06/19/25 14:30 06/18/25 21:24 06/19/25 14:30
Intake and Output
06/18/25 06/19/25 06/20/25
06:59 06:59 06:59
Intake Total 5098.2 / 5269.5 4405.7 / 4574.9 1385.6 / 1385.6
Output Total 4290 / 4605 5655 / 5655 1555 / 1555
Balance 808.2 / 664.5 -1249.3 / -1080.1 -169.4 / -169.4
SaO2 [ASV] 95
SaO2 [A/C] 94
SaO2 96
Nasal Cannula flow liters per 3
minute
Physical Exam
General: Comfortable
HEENT: Normocephalic
Cardiovascular: S1-S2 and Peripheral Edema (Significantly improving edema)
Respiratory: Crackles (lower lobes bilaterally ), Rhonchi and ET Tube (Secretions much less and not as purulent appearing )
GI: Soft, Distended, Other (Colostomy with stool output.) and Other (NG tube in place minimal drainage)
Neurology: Other (Gets agitated when lowering sedation with desaturation.) and Other
Skin: Warm and Other ( lower extremity venous stasis, both extremities are wrapped.)
Labs/Micro/Reports
Lab Data
06/19/25 03:48
06/19/25 03:48
Laboratory Results
06/19/25 06/19/25 06/19/25
03:48 11:54 13:42
APTT 72.2 H 66.2 H
pH 7.42 7.36
pCO2 56 H 59 H
pO2 69 L 90
HCO3 36.3 H 33.3 H
O2 Delivery Level
Microbiology
06/15/25 10:08 Bronch Left Lower Lobe Fungal Culture - Preliminary
Yeast
06/19/25 09:59 Abdomen Gram Stain - Preliminary
06/17/25 13:11 Nose MRSA Screen - Final
No Methicillin Resistant Staphylococcus aureus isolated.
06/13/25 12:07 Blood/Venous Blood Culture - Final
No Growth - Final Report
06/13/25 12:07 Blood/Venous Blood Culture - Final
No Growth - Final Report
06/15/25 10:08 Bronch Left Lower Lobe Acid Fast Bacilli Smear - Preliminary
06/15/25 10:08 Bronch Left Lower Lobe Acid Fast Bacilli Culture - Preliminary
06/15/25 10:08 Bronch Left Lower Lobe Respiratory Culture - Final
Pseudomonas aeruginosa
06/15/25 10:08 Bronch Left Lower Lobe Gram Stain - Final
06/14/25 11:22 Tracheal Aspirate Respiratory Culture - Final
Pseudomonas aeruginosa
06/14/25 11:22 Tracheal Aspirate Gram Stain - Final
--- NOTE | 2025-06-19 15:59 | PTCARENOTE ---
patient reassessed, agitated, vent desynch with skin check, repositioning. ett suctioned for copious amounts. pulse oximeter to the 80's. recovered with rest. propofol, levophed titration per work list. spouse at bedside. updated by [place] [employer]
[2025-06-19 16:06] LABS: Glucose - Point of Care 134 mg/dl (70-99)
--- NOTE | 2025-06-19 16:55 | CM ---
Chronic Vent since admission.Attempting to wean.
Agitated today.
Pt has a new colostomy.
IV antibiotics changed.
TPN remains.
Pt has CHRISTINE and OGT to low suction.
When appropriate will needed PT OT evals for discharge planning.
CM will continue to assess and assist in discharge planning.
PLAN Will depend on hospital course of care.
[2025-06-19 18:10] LABS: Glucose - Point of Care 144 mg/dl (70-99)
[2025-06-19 18:43] LABS: APTT 70.5 Sec (23.4-35.0)
[2025-06-19] MEDS: Parenteral Nutrition, Central 1640 IV (19:50)
--- NOTE | 2025-06-19 20:00 | PTCARENOTE ---
Received pt. at 1900. Pt. currently on ventilator. Intubated and sedated. No signs of pain/discomfort. Heart rhythm sinus. Levophed gtt infusing to maintain MAP >65. Ventilator settings verified. Lungs sound coarse. Suction for thick segovia secretions.
Abdomen obese. OG Tube to suction. Mason catheter in place, draining without issue. Skin as documented. Vital signs stable at this time.
[2025-06-19 20:13] LABS: Glucose - Point of Care 145 mg/dl (70-99)
[2025-06-19] MEDS: SEROQUEL 100 MG TUBE (21:51)
[2025-06-19] MEDS: LIPITOR 40 MG TUBE (21:51)
[2025-06-19] MEDS: PACERONE 200 MG TUBE (21:52)
[2025-06-19 22:13] LABS: Glucose - Point of Care 129 mg/dl (70-99)
--- NOTE | 2025-06-20 | PTCARENOTE ---
Pt. assessment unchanged. Remains on multiple ICU level infusions. Infusions titrated per protocols. Vital signs stable at this time.
[2025-06-20 00:10] LABS: Glucose - Point of Care 132 mg/dl (70-99)
[2025-06-20] MEDS: LEVOPHED 250 IV ×3 (01:11→19:03)
[2025-06-20] MEDS: DIPRIVAN 100 IV ×8 (01:11→22:39)
[2025-06-20 01:33] LABS: APTT 64.6 Sec (23.4-35.0)
[2025-06-20 02:49] LABS: Glucose - Point of Care 136 mg/dl (70-99)
[2025-06-20 03:20] LABS: B.E. 10.9 mmol/L; HCO3 37.5 mmol/L (21-28); O2 Saturation % 98.7 % (94-98); PCO2 62 mmHg (35-48); PO2 153 mmHg (83-108)
[2025-06-20 03:22] LABS: O2 Therapy VENT
[2025-06-20 03:25] LABS: Hematocrit 27.7 % (39.0-52.0); Hemoglobin 8.5 g/dL (13.0-18.0); Mean Corp Hgb Conc. 30.7 g/dL (33.0-37.0); Mean Corpuscular Volume 84.2 fL (80.0-94.0); Platelet Count 242 10^3/uL (130-400); Red Cell Dist. Width 15.3 % (11.5-14.5)
[2025-06-20 03:52] LABS: Blood Urea Nitrogen 24 mg/dl (9-20); Calcium 8.2 mg/dl (8.4-10.2); Carbon Dioxide 33 mmol/L (22-30); Chloride 103 mmol/L (98-107); Estimated Creatinine Clearance > 125 ml/min; Glucose 150 mg/dl (70-99); Magnesium 2.3 mg/dl (1.6-2.3); Potassium 4.0 mmol/L (3.5-5.1); Sodium 139 mmol/L (135-145); eGFR > 60.00
--- NOTE | 2025-06-20 04:00 | PTCARENOTE ---
Pt. assessment remains unchanged. AM labs drawn. Vital signs stable at this time.
[2025-06-20 04:17] LABS: Glucose - Point of Care 173 mg/dl (70-99)
[2025-06-20] MEDS: SUBLIMAZE 100 IV ×2 (04:35→15:13)
[2025-06-20] MEDS: HEPARIN 25000 UNITS/250 ML IV ×3 (04:37→21:30)
[2025-06-20] MEDS: STERILE WATER FOR INJECTION 10 ML IV ×4 (05:14→23:36)
[2025-06-20] MEDS: MERREM 500 MG IV ×4 (05:14→23:35)
[2025-06-20] MEDS: VANCOCIN 535 MG IV ×2 (05:14→17:22)
[2025-06-20 05:53] VITALS: BMI 40.8
[2025-06-20 06:09] LABS: Glucose - Point of Care 142 mg/dl (70-99)
[2025-06-20] MEDS: VENTOLIN NEBULES 2.5 MG INH ×3 (07:41→20:00)
[2025-06-20] MEDS: SODIUM CHLORIDE 3% FOR INHALATION 1 VIAL INH ×2 (07:41→14:38)
[2025-06-20] MEDS: NSS (PRESERVATIVE FREE) 10 ML IV (07:44)
[2025-06-20] MEDS: PROTONIX IV 40 MG IV (07:45)
[2025-06-20] MEDS: SUBLIMAZE 50 MCG IV ×3 (07:45→16:09)
[2025-06-20] MEDS: RELISTOR 12 MG SC (07:45)
[2025-06-20] MEDS: SUBUTEX 4 MG SL (07:45)
[2025-06-20 08:12] LABS: Glucose - Point of Care 162 mg/dl (70-99)
--- NOTE | 2025-06-20 08:21 | PHA.VAN.FU ---
Vancomycin Assessment / Plan
- Assessment
Renal Function: Stable
WBC's are: Stable
In the past 24 hrs, patient has been: Afebrile
Concomitant Antimicrobials: Meropenem, micafungin
- Dosing Plan
Continue: Vanc 1750mg IV q12H
- Monitoring Plan
Peak Level: 06/20 at 2200
Trough Level: 06/21 at 0530
- Follow Up
Pharmacy will continue to follow.
Vancomycin Follow UP
- -
Patient Age: 64
Patient Sex: Male
Vancomycin Day #: 4
Indication: Pulmonary/Respiratory
Requesting Provider: Dr. Albarran/Dr. Quispe
Pertinent Antimicrobial Allergies:
NKDA
Height / Weight:
Height 6 ft 3 in
Actual Weight 148.2 kg
Pertinent Past Medical History: BMI 40
- Vital Signs / Lab Results
Temp Pulse Resp BP Pulse Ox
99.4 F 86 24 154/62 98
06/20/25 07:34 06/20/25 06:00 06/20/25 06:00 06/18/25 21:24 06/20/25 07:43
Lab Results - Hematology
06/18/25 06/19/25 06/20/25
03:00 03:48 03:13
WBC 16.6 H 14.0 H 13.8 H
Lab Results - Chemistry
06/18/25 06/19/25 06/20/25
03:00 03:48 03:13
BUN 23 H 24 H 24 H
Creatinine 0.6 L 0.5 L 0.5 L
Estimated Creat Clear > 125 > 125 > 125
Albumin 2.3 L
Microbiology Results
06/15/25 10:08 Fungal Culture - Preliminary
Bronch Left Lower Lobe Yeast
06/19/25 09:59 Gram Stain - Preliminary
Abdomen
06/17/25 13:11 MRSA Screen - Final
Nose No Methicillin Resistant Staphylococcus aureus isolated.
06/13/25 12:07 Blood Culture - Final
Blood/Venous No Growth - Final Report
06/13/25 12:07 Blood Culture - Final
Blood/Venous No Growth - Final Report
06/15/25 10:08 Acid Fast Bacilli Smear - Preliminary
Bronch Left Lower Lobe Acid Fast Bacilli Culture - Preliminary
Therapeutic Drug Monitoring
Random Vancomycin 14.0 ug/ml 06/19/25 03:48
--- NOTE | 2025-06-20 08:37 | W.PN.ID1 ---
Date of Service
Date of Service: June 20, 2025
Today's Communication
Continue current antibiotics.
Assessment / Plan
# Purulent peritonitis
# Colonic inertia with megacolon; status post ex lap, decompression, colostomy, stool leakage into the abdomen requiring washout June 08, 2025
# s/p Septic shock; on low dose pressor
# PNA, Pseudomonas
# Fever - ? due to Precedex, resumed 06/18. Overall temp curve improved.
# Leukocytosis continue to trend down slowly
# VDRF
- 06/08/25 Exploratory laparotomy, lysis of adhesions, sigmoidectomy, decompression of right colon, abdominal washout, creation of end descending colostomy, umbilical hernia repair
- No OR cx
- Blood cultures pending; no growth to date
-06/15 s/p bronch with airway clearance; cx Pseudomonas
-06/[address] a/p: limited study but no obvious abscess; + free fluid in abdomen
-06/19 Colorectal opened midline abd distal incision, sent fluid for cx - pending
- Continue empiric micafungin (d#9).
- Continue Vancomycin IV (d#4).
- s/p Zosyn(8d) -> continue meropenem (d#3).
- Trend temps, WBC.
- Pt remains critically ill on vent.
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
HFrEF
HTN
DM
Afib
HLD
Colonic Inertia / Dysmotility
Chronic opioid dependence
Advanced bilateral lower extremity venous insufficiency
Morbid obesity (BMI~43)
Chief Complaint
-: Clinical Sepsis and Other (Purulent peritonitis)
Subjective / Review of Systems
Patient seen and examined. Overall temperature curve improved. Patient remains on vent at this time.
Vital Signs / Physical Exam
Vital Signs
Vital Signs
Temp Pulse Resp BP Pulse Ox
99.4 F 86 24 154/62 98
06/20/25 07:34 06/20/25 06:00 06/20/25 06:00 06/18/25 21:24 06/20/25 07:43
Physical Exam
Constitutional: Acutely Ill and Obese
Cardiovascular: Regular Rate and S1/S2
Pulmonary: Coarse and Other (on vent)
Gastrointestinal: Soft, Non Tender and Other (Colostomy with soft stool; CHRISTINE drain serosanguinous fluid)
Genito-Urinary: Mason and Clear Urine
Extremities: Venous Insufficiency; Negative Edema
Wound: Other (Umbilical wound with serous drainage. Tissue pink, and no significant purulence. Some malodor noted.)
Neurological: Other (Sedated)
Objective Data
Lab Data
Lab Results
06/20/25 03:13
06/20/25 03:13
PT 17.4 Sec (11.4-14.6) H 06/09/25 00:01
INR 1.40 06/09/25 00:01
APTT 64.6 Sec (23.4-35.0) H 06/20/25 01:08
Estimated Creat Clear > 125 ml/min 06/20/25 03:13
Lactic Acid 0.9 mmol/L (0.7-2.0) 06/09/25 00:01
Total Bilirubin 0.4 mg/dl (0.2-1.3) 06/18/25 03:00
AST 28 U/L (17-59) 06/18/25 03:00
ALT < 10 U/L (0-50) 06/18/25 03:00
Alkaline Phosphatase 142 U/L (38-126) H 06/18/25 03:00
C-Reactive Protein > 270.00 mg/L (0.0-10.00) H 06/11/25 03:22
Most recent labs reviewed.
Micro Results:
06/15/25 10:08 Fungal Culture - Preliminary
Bronch Left Lower Lobe Yeast
06/19/25 09:59 Wound Culture - Pending
Abdomen Gram Stain - Preliminary
06/19/25 09:59 Anaerobic Culture - Pending
Abdomen
06/17/25 13:11 MRSA Screen - Final
Nose No Methicillin Resistant Staphylococcus aureus isolated.
06/13/25 12:07 Blood Culture - Final
Blood/Venous No Growth - Final Report
06/13/25 12:07 Blood Culture - Final
Blood/Venous No Growth - Final Report
06/15/25 10:08 Acid Fast Bacilli Smear - Preliminary
Bronch Left Lower Lobe Acid Fast Bacilli Culture - Preliminary
06/15/25 10:08 Respiratory Culture - Final
Bronch Left Lower Lobe Pseudomonas aeruginosa
Gram Stain - Final
06/14/25 11:22 Respiratory Culture - Final
Tracheal Aspirate Pseudomonas aeruginosa
Gram Stain - Final
06/11/25 09:27 Blood Culture - Final
Blood/Venous No Growth - Final Report
06/11/25 09:59 Blood Culture - Final
Blood/Venous No Growth - Final Report
06/06/25 07:57 MRSA Screen - Final
Nose No Methicillin Resistant Staphylococcus aureus isolated.
Imaging:
06/18/25 CT c/a/p: Suspected moderate volume mildly complex presumed free fluid in the abdomen, overall increased in volume in comparison to recent prior study, most prominently located in the right subhepatic region, right subdiaphragmatic region
and likely left abdomen/pelvis.
06/16/25 CXR: There is moderate airspace disease in right lower lung field concerning for pneumonia. There is obscuration of the left hemidiaphragm suggesting left lower lobe pneumonia
06/15/25 CXR: No pneumothorax status post bronchoscopy. Progressive homogeneous increased retrocardiac opacity. Suspect mild left perihilar and right infrahilar opacity which could represent atelectasis or pneumonia.
06/13/25 CT a/p: Very limited study. Small volume fluid in the abdomen, particularly in the left abdomen mildly complex. As this fluid is incompletely included, it cannot be determined whether this totally represents likely free fluid or combination
of free fluid and abnormal focal fluid collection. Additional small abnormal focal fluid collections cannot be excluded on the basis of this markedly limited study. Apparent recent prior partial sigmoidectomy with large volume stool seen in the
residual sigmoid colon and rectum.
06/10 CXR: Stable CHF and bibasilar atelectasis and/or pneumonia.
06/08/25 CXR: Diffuse marked colonic dilation. Measurement of caliber of the upper colon is slightly greater then obstruction series of June 07, 2025. Multiple air-fluid levels compatible with stasis. Moderate amount of stool within the inferior
aspect of the right colon as well as within the rectum. No gross evidence for free intraperitoneal air.
06/05/25 CT a/p: Significant gaseous distention of a large portion of the colon. This contributes to limitation of this examination, as the patient cannot be fully included on the [id number] of the CT scanner. If there can be some distal colonic
decompression, repeat scan could be considered, when hopefully the patient could be entirely included on the [id number] of the exam. No gross evidence for free intraperitoneal air. Patchy parenchymal opacity within the visualized lower lung, most
likely atelectasis. Pneumonia is a differential consideration, felt to be less likely based on morphologic appearance.
Care Review
Plan reviewed with: Nurse
[2025-06-20] MEDS: HYDROPHOR 1 APPLIC TOPICAL (08:40)
[2025-06-20 09:02] LABS: APTT 70.1 Sec (23.4-35.0)
--- NOTE | 2025-06-20 09:13 | PTCARENOTE ---
Addendum entered by Lynsey Pete RN 06/20/25 10:24:
additional fred removed by surgery,wound redressed. med with fentanyl, for bronch@1030
Original Note:
report received, assessments per work list. patient with nonverbal pain cues. see JAN. propofol titration per work list for RASS and prep for bronch. monitor nsr, occasional pvc. right triple lumen picc patent. heparin, insulin, levophed per work
list. ett with periodic cuff leak. 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 left radial arterial line with blood return and waveform. positional. md aware. lungs with coarse breath sounds, ett suctions for large amounts segovia thick secretions abdomen soft. hypoactive bowel
sounds. colostomy with small amount thick stool. Mason with adequate urine output. jack yellow. . wound care provided, surgery and ID at bedside. orders received
[2025-06-20] MEDS: MYCAMINE 105 MG IV (09:58)
--- NOTE | 2025-06-20 10:05 | W.PN.INTV ---
Today's Communication / Plan
Recommendations
- Plan for bronchoscopy and BAL 06/20
- Will reattempt ASV/weaning mode post bronchoscopy
Assessment
-
Assessment: 64-year-old male with a past medical history of cardiomyopathy, hypertension, DM type II, history of chronic opioid use due to chronic arthritis now on buprenorphine, history of ERASMO, venous insufficiency and chronic back pain who
presented with shortness of breath, abdominal distention. Found to have severe colonic distention. Initially treated with neostigmine, attempted sigmoidoscopy without attempt. Underwent exploratory laparotomy 06/08/2025-developed shock requiring
vasopressors and remained on mechanical ventilation. We were consulted on 06/09/2025.
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
OxyContin/oxycodone,systolic cardiomyopathy.
06/20/2025 Overview: Patient currently intubated, 500/20/100%/12. Current infusions Levophed 8, heparin, TPN, propofol and fentanyl. MAP of 72, saturating 98%. Drainage from CHRISTINE drain as well as from ostomy bag. +859 cc fluid balance. ABG 7.30
/153.
Assessment and plan
#1. Acute hypoxemic respiratory failure post surgery complicated by VAP of LLL
- Initially due to abdominal distention requiring intubation, mechanical ventilation, subsequently LLL
- Left lower lobe dense consolidation, copious ET tube secretions noted, improved after Bronchoscopic lavage, again worse 06/19
- Continue broad-spectrum antibiotics, s/p bronchoscopy and BAL 06/16 with extensive suctioning of thick mucoid secretions in LLL. BAL growing Pseudomonas/Yeast
- Weaning attempts have been failing so far. Tolerated ASV better since Bronchoscopic lavage. Switched back to volume assist-control due to desaturation with minimal activity and increased secretions.
- If unable to wean over the weekend, will start discussions regarding tracheostomy
- Continue Seroquel 100 mg nightly.
- Repeat Bronchoscopy and BAL 06/20 due to copious thick secretions.
#1a. Difficulty ventilator weaning.
- Patient continues to fail attempt at weaning.
- Significant agitation and desaturations with minimal decrease in sedation. Patient was weaned off propofol and trialed on Precedex and fentanyl and after some time again started getting agitated and started desaturating. Propofol resumed on
06/19.
- Body habitus, excessive secretions, severe pneumonia as well as intra-abdominal processes are contributing to failure to liberate from mechanical ventilation
- If unable to wean over the weekend, will start discussions regarding tracheostomy
#1b. Endotracheal cuff leak 06/19.
- Significant air leak with loss of tidal volume despite repeated attempts at cuff inflation
- ET tube was exchanged over bougie at bedside, 8.0 ET tube placed without complications.
- Cuff leak resolved post ET tube exchange.
#2. Septic shock suspected-source likely intraperitoneal and LLL pneumonia
- Continues to need pressor support, currently on Levophed
- Continue broad-spectrum antibiotics and antifungal per infectious disease service, micafungin. Zosyn switched to meropenem per ID service, also on vancomycin
- BAL culture showing Pseudomonas
- 06/18, CT chest abdomen pelvis pursued, fluid noted in the abdomen. Discussed with general surgery service, no plans for OR or IR guided drainage
- Purulent discharge from inferior margin of surgical site, bedside drainage on 06/19, sent for cultures.
#3. Pseudoobstruction with megacolon, failed conservative management, s/p ex lap
- S/p ex lap, sigmoidectomy and end colostomy, iatrogenic spillage of stool, peritonitis, umbilical hernia repair, 06/08/2025
- Continue IV meropenem, vancomycin and micafungin
- Small-volume stool output noted in the ostomy bag
- N.p.o. currently, TPN infusing
- Increased gastric distention on CXR. Placed NG back to suction 06/19.
#4. Acute on chronic heart failure with reduced ejection fraction, LVEF 35%, Stage I diastolic dysfunction
- Patient has been diuresing well with intermittent Lasix
- Even I/O over last 24 hrs, skip diuresis today.
#5. Paroxysmal atrial flutter.
- DC subcu Lovenox, initiated heparin infusion, tolerating well without any bleeding
- History of cardioversion in January 2025
- Has been on amiodarone as well
#6. Pulmonary hypertension, estimated pulmonary artery systolic pressure 50-55
- Primarily group II PH related to underlying congestive heart failure
- Continue to optimize intravascular volume, keep saturations above 90%, no indication for vasodilator therapy
#7. DM type II with Hyperglycemia
- Continue insulin infusion
#8. Prolonged QTc
- Noted in the setting of hypokalemia, hypomagnesemia and Seroquel therapy
- Since QTc normal now, continued agitation noted with attempted SAT, re-trial of Seroquel. Tolerating well, increased dose to 100 mg nightly.
Other medical diagnoses:
#Morbid obesity
#Venous deficiency
#History of ERASMO
#Chronic pain management due to arthritis currently on buprenorphine in an effort to wean off of OxyContin/oxycodone
-
DVT prophylaxis: -heparin infusion
GI prophylaxis, pantoprazole
-
Prognosis is guarded
-
Critical care statement: A total of 43 minutes of critical care time was provided for this patient today. This includes management of unstable vital signs, evaluation of the patient at bedside, reviewing the patient's pertinent medical records
including ventilator settings, arterial blood gases, radiographs, microbiology, laboratory evaluations and discussion with primary team, critical care nursing, and respiratory therapy.

Data reviewed:
Chest x-ray 06/08/2025: Reviewed, ET tube in place. Left lower lobe airspace disease. Cardiomegaly
-
CT abdomen pelvis 06/05/2025:
The patient is significantly distended, and much of the abdominal and upper pelvic soft tissues extending anterior and to the left of the [id number], which limits evaluation, as it becomes difficult to confidently follow the loops of bowel.
There is distention of the rectum with air and stool, measuring 9.3 cm in diameter. There is marked distention of the sigmoid colon which extends into the right and central upper abdomen, with the sigmoid colon measuring up to 18 cm in diameter. The
sigmoid colon contains a moderate to large amount of stool, mainly inferiorly. There appears to be moderate distention of the rest of the visualized colon.
Small bowel loops are present, and do not appear to be significantly distended, similar appearance to prior examination.
Of note, the cecum cannot be confidently identified on the present examination
No gross evidence of free intraperitoneal air.
There is patchy parenchymal opacity within the visualized lower lungs, most likely atelectasis. A component of pneumonia is also possible, although felt to be less likely. There is no significant pleural effusion and no significant pericardial
effusion.
Coronary artery calcifications are present. Please correlate with symptoms of and risk factors for coronary artery disease, with further workup as clinically appropriate.
Of note, the stomach is not distended.
Subjective Dataa
Subjective Data
Date of Service:
Date of Service: June 20, 2025
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
Subjective:
Patient currently intubated, mechanically ventilated and sedated
Review of Systems
General: Unobtainable - Sedation
Objective Data
Data Reviewed
Vital Signs / I&O / Oxygen:
Vital Signs
Temp Pulse Resp BP Pulse Ox
100.2 F 74 21 154/62 97
06/20/25 09:00 06/20/25 09:30 06/20/25 09:30 06/18/25 21:24 06/20/25 09:30
Intake and Output
06/19/25 06/20/25 06/21/25
06:59 06:59 06:59
Intake Total 4405.7 / 4574.9 5101.2 / 5271.0 1090.1 / 1090.1
Output Total 5655 / 5655 4150 / 4150 665 / 665
Balance -1249.3 / -1080.1 951.2 / 1121.0 425.1 / 425.1
SaO2 [ASV] 95
SaO2 [A/C] 97
SaO2 97
Nasal Cannula flow liters per 3
minute
Physical Exam
General: Comfortable
HEENT: Normocephalic
Cardiovascular: S1-S2 and Peripheral Edema (Significantly improving edema)
Respiratory: Crackles (lower lobes bilaterally ), Rhonchi and ET Tube (Secretions much less and not as purulent appearing )
GI: Soft, Distended, Other (Colostomy with stool output.) and Other (NG tube in place minimal drainage)
Neurology: Other (Gets agitated when lowering sedation with desaturation.) and Other
Skin: Warm and Other ( lower extremity venous stasis, both extremities are wrapped.)
Labs/Micro/Reports
Lab Data
06/20/25 03:13
06/20/25 03:13
Laboratory Results
06/19/25 06/19/25 06/19/25
11:54 13:42 18:23
APTT 66.2 H 70.5 H
pH 7.36
pCO2 59 H
pO2 90
HCO3 33.3 H
O2 Delivery Level
06/20/25 06/20/25 06/20/25
01:08 03:13 08:28
APTT 64.6 H 70.1 H
pH 7.39
pCO2 62 H
pO2 153 H
HCO3 37.5 H
O2 Delivery Level Vent
Microbiology
06/15/25 10:08 Bronch Left Lower Lobe Fungal Culture - Preliminary
Yeast
06/19/25 09:59 Abdomen Gram Stain - Preliminary
06/17/25 13:11 Nose MRSA Screen - Final
No Methicillin Resistant Staphylococcus aureus isolated.
06/13/25 12:07 Blood/Venous Blood Culture - Final
No Growth - Final Report
06/13/25 12:07 Blood/Venous Blood Culture - Final
No Growth - Final Report
06/15/25 10:08 Bronch Left Lower Lobe Acid Fast Bacilli Smear - Preliminary
06/15/25 10:08 Bronch Left Lower Lobe Acid Fast Bacilli Culture - Preliminary
06/15/25 10:08 Bronch Left Lower Lobe Respiratory Culture - Final
Pseudomonas aeruginosa
06/15/25 10:08 Bronch Left Lower Lobe Gram Stain - Final
06/14/25 11:22 Tracheal Aspirate Respiratory Culture - Final
Pseudomonas aeruginosa
06/14/25 11:22 Tracheal Aspirate Gram Stain - Final
[2025-06-20 10:22] LABS: Glucose - Point of Care 150 mg/dl (70-99)
--- NOTE | 2025-06-20 10:27 | W.PN.CRS1 ---
Addendum entered and electronically signed by Jl Pierre MD 06/20/25 15:08:
WBC 13.8 from 14.8, levo steady at 8; s/p bronch today
� Due to persistent leukocytosis and pressor requirement, will consult IR for possible fluid drainage
�Per IR, will attempt bedside drainage via ultrasound
� Continue antibiotics per ID
�Okay to switch to therapeutic Lovenox
Original Note:
Today's Communication / Plan
-
ok to change to therapeutic lovenox
tpn
Assessment/Plan
-
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
obstipation associated with megacolon. WBC 11.[address] showing gaseous distention of the colon, diameter of the sigmoid up to 18 cm in diameter. He received a dose of neostigmine, which failed. He underwent attempt at decompressive sigmoidoscopy,
but encountered too much stool. Due to refractory nature of his issue, we proceeded with surgery.
POD 11 exlap, sigmoidectomy, end-colostomy; iatrogenic spillage of stool - controlled and abdomen washed out, no colonic ischemia or perforation
S/p bronch 06/15 for right-sided mucous plugging
Tmax 100.9, VSS on levophed
WBC 13.8 priscila 16.0, Hb 8.5 from 9.0, Cr 0.6
Insulin gtt for hyperglycemia with TPN in setting of h/o DM
Plan:
�Respiratory failure, c/b mucous plugging, pneumonia; remains intubated/vented with elevated O2 requirement
-Cont chest PT, pulmonary toilet, tentative bronch again today with pulm
�Continue pain control and sedation
� Maintain MAP greater than 65, wean levo as tolerated
� Continue n.p.o.; cont TPN d/w dosing with pharmacist.
-nutrition recs appreciated but given hyperglycemia will not be increasing dextrose and given high dose of propofol will continue TPN w/o lipids
�cont holding tube feeds
� Appreciate ID, on Merrem, Vanco
�Septic shock likely due to pneumonia
-Lower portion of abdominal wound was opened at bedside (fred removed). Dry packing into wound twice a day. Cultures sent.
- Hold off on Dakin's to lower portion of incision d/t ?dehiscence
� Continue Mason, strict I&O's
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
- ok to change therapeutic heparin gtt to therapeutic lovenox from surgical standpoint
Subjective Data
Procedure
06/08/25- Exploratory laparotomy, lysis of adhesions, sigmoidectomy, decompression of right colon, abdominal washout, creation of end descending colostomy, umbilical hernia repair
Subjective Data
Date of Service: June 20, 2025
Pt seen and examined at bedside with Dr. Pierre. Intubated/sedated. Appears comfortable.
Objective Data
-
Vital Signs
Temp Pulse Resp BP Pulse Ox
100.2 F 74 21 154/62 97
06/20/25 09:00 06/20/25 09:30 06/20/25 09:30 06/18/25 21:24 06/20/25 09:30
Intake & Output
06/19/25 06/20/25 06/21/25
06:59 06:59 06:59
Intake Total 4405.7 / 4574.9 5101.2 / 5271.0 1090.1 / 1090.1
Output Total 5655 / 5655 4150 / 4150 665 / 665
Balance -1249.3 / -1080.1 951.2 / 1121.0 425.1 / 425.1
Intake:
IV fluids (Total) 2493.7 / 2594.9 2239.2 / 2341.0 306.1 / 306.1
Fentanyl gtt 345.0 / 355.0 257.5 / 267.5
Insulin 181 / 189 174 / 180 20 / 20
Levophed gtt 645.0 / 667.5 440.0 / 462.5 75.0 / 75.0
Precedex 199.8 / 221.9 251.0 / 251.0
Propofol 545.9 / 559.5 482.7 / 518.0 97.1 / 97.1
heparin 577 / 602 634 / 662 84 / 84
IV piggybacks 100 / 100 1170 / 1170 550 / 550
TPN/PPN 1632 / 1700 1632 / 1700 204 / 204
Amount instilled into GI Tube ( 180 / 180 60 / 60 30 / 30
Total)
[place] Sump 180 / 180 60 / 60 30 / 30
Output:
Liquid stool amount 60 / 60
Colostomy 60 / 60
Drain Output (Total) 140 / 140 700 / 700 140 / 140
Right Lower Abdomen [place]- 140 / 140 700 / 700 140 / 140
Vo
Gastrointestinal tube output ( 500 / 500 400 / 400
Total)
[place] Sump 500 / 500 400 / 400
Urine, Mason 4955 / 4955 3050 / 3050 525 / 525
Lab Results
06/20/25 03:13
06/20/25 03:13
Physical Exam
-
General: Other (Intubated and sedated)
Abdomen: Soft, Distended (Mild) and Other (stoma pink/viable with brown stool outputs)
Skin: Warm and Dry
Wound: Other (Midline midline wound with fred in place, some seropurulent drainage from the lower aspect of the wound (several fred have been removed), ?fascial dehiscence but overlying slough makes difficult to determine, CHRISTINE drain
serosanguineous)
--- NOTE | 2025-06-20 10:53 | OR.RPT ---
Operative Report
Operative Report
Bronchoscopy and BAL (LLL)
Indication: Persistent copious thick secretions, progression to bilateral Pneumonia. Weaning challenge.
Consent: Obtained from Patient's spouse.
Procedure: Patient was in supine position and currently intubated and mechanically ventilated on fentanyl and propofol infusion. 2 mL of 1% lidocaine was sprayed around cosmo. Through the endotracheal tube bronchoscope was advanced and cosmo was
visualized thick copious secretions were noted coming from both right and left mainstem. Bronchoscope was advanced into the right upper lobe which was unremarkable subsequently right middle lobe was evaluated and all segments were patent but had
copious thick mucoid secretions, aspirated. Right lower lobe was examined all segments were patent and large amount of thick secretions were noted which were tenacious and difficult to clear. Saline was injected a few times to help with clearance.
Scope was then advanced in the left mainstem which was essentially completely filled with thick copious secretions. I had to inject saline for easy suctioning as the bronchoscope channel kept clogging which I had to clear a couple of times by
withdrawing the bronchoscope cleaning and then reinserting. Left upper lobe was eventually intubated which appeared fairly unremarkable with very minimal secretions. Bronchoscope was then advanced into left lower lobe which was again nearly
completely filled with thick, mucoid purulent looking secretions. Extensive suctioning of the area was performed. Additional saline was injected to help with airway clearance. Scope was then wedged in basilar segments on the right side and a BAL
was performed. 40 cc of saline was injected and about 25 cc of mucoid, purulent appearing fluid was aspirated and sent for microbiological studies. No active bleeding was noted at the end of the procedure. Scope was then withdrawn and procedure
completed.
Patient tolerated procedure well. Saturations maintained above 95% throughout the procedure
Complications: None
Blood loss: None
Date of service: 06/20/2025
Time spent: 30 min
[2025-06-20 10:57] VITALS: BP 134/74
[2025-06-20 12:19] LABS: Glucose - Point of Care 172 mg/dl (70-99)
--- NOTE | 2025-06-20 12:54 | PTCARENOTE ---
patient bronch completed at bedside. large amounts sputum suctioned by . seg[place] bloody tinged. specimens sent. patient tolerated without drop in pulse oximeter. reassessed. very diaphoretic post procedure. complete care given. post bronch cxr taken.
[2025-06-20] MEDS: NOVOLIN R INSULIN INFUSION 100 IV (12:58)
[2025-06-20 14:08] LABS: Glucose - Point of Care 157 mg/dl (70-99)
--- NOTE | 2025-06-20 14:19 | W.PN.HOSP.TC ---
Today's Communication/Plan
-
Assessment / Plan
Assessment / Plan
General: Intubated and sedated, diaphoretic
HEENT: NormoCephalic, ETT and OGT in place
Respiratory: Mechanical breath sounds bilaterally, equal chest rise
Cardiac: S1/S2 and Regular Rhythm; No Rub or Gallop
GI: Left-sided colostomy now with output of brown stool, CHRISTINE drain with serosanguineous output, midline incision with lower fred removed and wound packed
Musculoskeletal: No Edema, no deformity
Skin: Warm and dry
: Mason in place
Neuro: Sedated, responds to noxious stimuli
Psych: Unable to assess
Impression:
Mr. Knapp is a 64-year-old male with medical history of HFpEF, A-fib/flutter, IDDM, obesity, chronic pain with subsequent opioid dependence, and chronic constipation with colonic dysmotility who presented with shortness of breath, abdominal
bloating and discomfort, constipation. His last bowel movement was 2 weeks prior to arrival. He is having increasing difficulty breathing due to worsening abdominal distention. He has had multiple similar episodes since September 2024 and has
previously required decompression. He has been treated with enemas and neostigmine previously. Abdominal imaging showed significant colonic distention with air-filled loops of bowel. He also had patchy parenchymal opacities within the mid to
lower lungs. He was mildly hypoxic and has been started on antibiotics. He has remained afebrile with a mild leukocytosis of just over 12,000. He has been admitted for further evaluation and management.
Seen by GI, failed neostigmine, enema, status post nonsuccessful decompressive flexible sigmoidoscopy.
Surgery team consulted.
s/p Exploratory laparotomy, lysis of adhesions, sigmoidectomy, decompression of right colon, abdominal washout, creation of end descending colostomy, umbilical hernia repair on 06/08
admitted to ICU postoperatively, intubated.
Patient had fever,Infectious disease consult, started on zosyn.
Patient was still running fever, added micafungin.
CT chest: New right lower lobe consolidation with air bronchograms, atelectasis versus pneumonia, Possible small bilateral pleural effusions.
CT abdomen/pelvis shows: Small volume fluid in the abdomen, particularly in the left abdomen mildly complex. As this fluid is incompletely included, it cannot be determined whether this totally represents likely free fluid or combination of free
fluid and abnormal focal fluid collection. Additional small abnormal focal fluid collections cannot be excluded on the basis of this markedly limited study
Patient received Lasix.
Assessment/Plan:
Colonic dysmotility/ileus:
- Abdomen remained significantly distended despite multiple medical enemas and subsequent bowel movements
- Upgraded to IMU 06/07, pushed 4 mg neostigmine around 1:30 PM, no significant peristaltic response
- Ultimately required surgical intervention, brought to the OR 06/08 for ex lap with lysis of adhesions and sigmoidectomy with end descending colostomy, decompression of right colon, abdominal washout and umbilical hernia repair
- ICU postoperatively, intubated
- Colorectal surgery following, increased output from colostomy now with brown stool
- Lower fred removed from surgical incision with mucopurulent output, wound packed, cultures obtained, redressed
- Continue TPN, holding tube feeds
- Colorectal surgery okay with transitioning anticoagulation to therapeutic Lovenox as needed
Septic shock, requiring pressors:
- This is likely a primary intra-abdominal infection, stool leakage into the abdomen requiring washout, also likely has concomitant pulmonary infection
- Tracheal aspirate from 06/14 growing pansensitive Pseudomonas
- ID following, continuing vancomycin and micafungin, Zosyn switched to meropenem
- Leukocytosis improving, fever curve improving
- Remains on vasopressors
- Precedex discontinued as it was useless and keeping him sedated, continuing sedation with propofol and fentanyl
Acute hypoxic respiratory failure (currently intubated in the ICU postoperatively)
- Continue mechanical ventilation, ETT replaced 06/19 by paintings restorer
- Persistent copious thick secretions and left lower lobe volume loss
- Underwent bronchoscopy with BAL left lower lobe 06/15 by paintings restorer, cultures growing Pseudomonas, repeat bronchoscopy with BAL today 06/20 with aspiration of copious secretions
- Continue antimicrobial coverage with micafungin, vancomycin, and meropenem
- Hypertonic nebulized saline 3 times a day with albuterol, aggressive chest PT
- Started Seroquel 50 mg nightly, dose increased to 100 mg, monitor QTc
- Patient was inadequately sedated with Precedex which has now been discontinued, restarted propofol and fentanyl drips
- Additional Lasix pushes as needed
- Weaning trials as tolerated
- Will need to decide with family whether or not to pursue tracheostomy in the next few days
paroxismal A-fib/flutter:
- Currently rate controlled, holding home metoprolol, continue home amiodarone 200 mg at night via OGT
- Holding home Xarelto, have been anticoagulating with IV heparin, colorectal surgery okay with transition to therapeutic Lovenox as needed
IDDM:
- Insulin drip.
HFrEF:
- Acute on chronic chronic
- Holding home metoprolol succinate 100 mg
- Lasix pushes as needed, holding spironolactone, monitor daily weights
- No need for afterload reduction due to hypotension
CODE STATUS: Full code
DVT prophylaxis: Heparin drip
Diet: TPN
Disposition: Continue management in the ICU.
Total time spent on today's encounter was 58 minutes
Anticipated Discharge: > 48 hours
Subjective/Interval History
-
Date of Service: June 20, 2025
Patient was seen and examined at bedside this morning. Remains critically ill, intubated and on vasopressors. Propofol was restarted and Precedex was discontinued.
Objective Data
-
Labs:
Laboratory Results
06/20/25 06/20/25 06/20/25
03:13 08:28 15:00
WBC 13.8 H
Hgb 8.5 L
Hct 27.7 L
Plt Count 242
APTT 70.1 H Pending
HCO3 37.5 H
Sodium 139
Potassium 4.0
Chloride 103
Carbon Dioxide 33 H
BUN 24 H
Creatinine 0.5 L
Glucose 150 H
Calcium 8.2 L
Vital Signs:
Vital Signs
Temp Pulse Resp BP Pulse Ox
99.9 F 74 26 134/74 97
06/20/25 13:00 06/20/25 13:30 06/20/25 13:30 06/20/25 10:57 06/20/25 13:30
I&O
06/19/25 06/20/25 06/21/25
06:59 06:59 06:59
Intake Total 4405.7 / 4574.9 5101.2 / 5271.0 1941.3 / 1941.3
Output Total 5655 / 5655 4150 / 4150 1075 / 1075
Balance -1249.3 / -1080.1 951.2 / 1121.0 866.3 / 866.3
Review of Systems
-
Unable to obtain full review of systems at this time due to: Patient Intubation
Physical Exam
-
General: Intubated
--- NOTE | 2025-06-20 15:08 | OR.RPT ---
Operative Report
Operative Report
Bronchoscopy
Indication: Hemoptysis, respiratory failure, endobronchial inspection
Consent: Obtained from Patient's spouse via phone
Procedure: Patient was in supine position and currently intubated and mechanically ventilated on fentanyl infusion. Additional fentanyl 50 mcg IV x 1 was given prior to the procedure. 2 mL of 1% lidocaine was sprayed around cosmo. Through the
endotracheal tube bronchoscope was advanced and cosmo was noted to be sharp and unremarkable. Bronchoscope was advanced into the left upper lobe which was unremarkable subsequently Left lower lobe was evaluated which showed multiple old blood
clots. Suctioning was applied to clear the segments. Right lower lobe was examined all segments were patent and small amount of mucoid secretions were noted in the RLL which were cleared easily. Scope was then advanced in the RML which again
showed multiple blood clots, suctioned. I had to inject saline for easy suctioning as the bronchoscope channel kept clogging which I had to clear a couple of times by withdrawing the bronchoscope cleaning and then reinserting. Right upper lobe was
eventually intubated, anterior segments was essentially clogged with blood clots. Extensive suctioning was performed, saline was injected a few times to help with suctioning. No active bleeding noted from any of the segments.
Patient tolerated procedure well.
Complications: None
Blood loss: None
Date of service: 06/20/2025
Time spent: 30 min
[2025-06-20 15:26] LABS: APTT 67.6 Sec (23.4-35.0)
[2025-06-20 16:09] LABS: Glucose - Point of Care 146 mg/dl (70-99)
[2025-06-20 16:15] VITALS: BP 122/48; BP_SYST 72
--- NOTE | 2025-06-20 16:19 | PTCARENOTE ---
Addendum entered by Lynsey Pete RN 06/20/25 16:44:
two CHRISTINE drains placed at bedside. dressings and irrigation by IRAD. patient tolerated procedure well without signs discomfort . IRAD to transport specimens to lab.
Original Note:
patient reassessed. gtts per work list. suctioned for segovia blood tinged sputum. IRAD at bedside. consent obtained from for drain placement. IRAD team at bedside. patient medicated with fentanyl per JAN.
--- NOTE | 2025-06-20 16:49 | W.PN.UPDATE ---
Update Note
Progress Note Update
Bedside ultrasound guided drainage catheters placed: A) in RUQ near gallbladder, yielding serous fluid B) right midabdomen, below liver, yielding serous fluid. Both collections were loculated on ultrasound.
Fluid sent for laboratory analysis.
[2025-06-20 18:10] LABS: Glucose - Point of Care 146 mg/dl (70-99)
[2025-06-20] MEDS: Parenteral Nutrition, Central 1640 IV (19:48)
[2025-06-20] MEDS: MUCOMYST 10% 2 ML INH (20:00)
--- NOTE | 2025-06-20 20:00 | PTCARENOTE ---
Received pt. at 1900. Pt. currently on ventilator. Intubated and sedated. No signs of pain/discomfort. Heart rhythm sinus. Levophed gtt infusing to maintain MAP >65. Ventilator settings verified. Lungs sound coarse. Abdomen obese. OG Tube to
suction. Mason catheter in place, draining without issue. Skin as documented. Vital signs stable at this time.
[2025-06-20 20:07] LABS: Glucose - Point of Care 115 mg/dl (70-99)
[2025-06-20] MEDS: SEROQUEL 100 MG TUBE (21:38)
[2025-06-20] MEDS: PACERONE 200 MG TUBE (21:39)
[2025-06-20] MEDS: LIPITOR 40 MG TUBE (21:39)
[2025-06-20 21:47] LABS: APTT 81.5 Sec (23.4-35.0)
[2025-06-20 22:16] LABS: Glucose - Point of Care 148 mg/dl (70-99)
[2025-06-21] VITALS (28 sets, daily range): BP systolic 100–146; BP diastolic 55–80; BMI 40.6
--- NOTE | 2025-06-21 | PTCARENOTE ---
Pt. assessment unchanged. Remains on multiple ICU level infusions. Infusions titrated per protocols. Vital signs stable at this time.
[2025-06-21] MEDS: SUBLIMAZE 100 IV ×2 (00:03→20:20)
[2025-06-21 00:10] LABS: Glucose - Point of Care 140 mg/dl (70-99)
[2025-06-21] MEDS: NOVOLIN R INSULIN INFUSION 100 IV ×3 (01:47→20:21)
[2025-06-21] MEDS: DIPRIVAN 100 IV ×6 (01:47→22:01)
[2025-06-21 02:09] LABS: Glucose - Point of Care 142 mg/dl (70-99)
[2025-06-21 03:44] LABS: Hematocrit 27.9 % (39.0-52.0); Hemoglobin 8.3 g/dL (13.0-18.0); Mean Corp Hgb Conc. 29.7 g/dL (33.0-37.0); Mean Corpuscular Volume 86.1 fL (80.0-94.0); Platelet Count 246 10^3/uL (130-400); Red Cell Dist. Width 15.3 % (11.5-14.5)
[2025-06-21 03:51] LABS: APTT 77.1 Sec (23.4-35.0)
--- NOTE | 2025-06-21 04:00 | PTCARENOTE ---
Pt. assessment remains unchanged. AM labs drawn. Vital signs stable at this time.
[2025-06-21] MEDS: LEVOPHED 250 IV (04:06)
[2025-06-21 04:09] LABS: Blood Urea Nitrogen 23 mg/dl (9-20); Calcium 8.3 mg/dl (8.4-10.2); Carbon Dioxide 35 mmol/L (22-30); Chloride 103 mmol/L (98-107); Estimated Creatinine Clearance > 125 ml/min; Glucose 163 mg/dl (70-99); Magnesium 2.3 mg/dl (1.6-2.3); Potassium 4.5 mmol/L (3.5-5.1); Sodium 139 mmol/L (135-145); Triglycerides 116 mg/dl (10-149); eGFR > 60.00
[2025-06-21 04:16] LABS: Glucose - Point of Care 167 mg/dl (70-99)
[2025-06-21] MEDS: VANCOCIN 535 MG IV (05:17)
[2025-06-21] MEDS: MERREM 500 MG IV ×3 (05:17→17:35)
[2025-06-21] MEDS: HEPARIN 25000 UNITS/250 ML IV ×3 (05:17→20:21)
[2025-06-21] MEDS: STERILE WATER FOR INJECTION 10 ML IV ×3 (05:17→17:35)
[2025-06-21 06:07] LABS: Glucose - Point of Care 160 mg/dl (70-99)
[2025-06-21] MEDS: SUBUTEX 4 MG SL (07:15)
[2025-06-21] MEDS: NSS (PRESERVATIVE FREE) 10 ML IV (07:15)
[2025-06-21] MEDS: PROTONIX IV 40 MG IV (07:16)
[2025-06-21] MEDS: HYDROPHOR 1 APPLIC TOPICAL (07:34)
--- NOTE | 2025-06-21 07:40 | W.PN.ID1 ---
Date of Service
Date of Service: June 21, 2025
Today's Communication
Continue antibiotics
Assessment / Plan
# Purulent peritonitis
# Colonic inertia with megacolon; status post ex lap, decompression, colostomy, stool leakage into the abdomen requiring washout 06/08/2025
# s/p Septic shock; continues on low dose pressor
# PNA with Pseudomonas
# Fever - ? due to Precedex, resumed 06/18. Overall temp curve improved.
# Leukocytosis continue to trend down slowly
# VDRF
- 06/08/25 Exploratory laparotomy, lysis of adhesions, sigmoidectomy, decompression of right colon, abdominal washout, creation of end descending colostomy, umbilical hernia repair
- No OR cx
- Blood cultures pending; no growth to date
- 06/15 s/p bronch with airway clearance; cx Pseudomonas
- 06/[address] a/p: limited study but no obvious abscess; + free fluid in abdomen
- 06/19 Colorectal opened midline abd distal incision, sent fluid for cx - pending
- 06/20 aspiration/drainage of right abdominal collections; serous fluid. cultures pending.
- Continue empiric micafungin (d#10).
- Continue Vancomycin IV (d#5).
- s/p Zosyn(8d) -> continue meropenem (d#4).
- Trend temps, WBC.
- Pt remains critically ill; on vent, on norepinephrine.
# Conditions DIRECTOR OF INDIVIDUAL GIVING
HFrEF
HTN
DM
Afib
HLD
Colonic Inertia / Dysmotility
Chronic opioid dependence
Advanced bilateral lower extremity venous insufficiency
Morbid obesity (BMI~43)
Chief Complaint
-: Clinical Sepsis and Other (Purulent peritonitis)
Subjective / Review of Systems
Patient seen and examined. Since yesterday's exam, patient underwent IR drainage of right abdominal fluid, with recovery of serous fluid only. Cultures currently pending.
Vital Signs / Physical Exam
Vital Signs
Vital Signs
Temp Pulse Resp BP Pulse Ox
100.9 F H 81 4 122/48 96
06/21/25 07:21 06/21/25 06:00 06/21/25 06:00 06/20/25 16:15 06/21/25 06:00
Physical Exam
Constitutional: Comfortable, Acutely Ill, Non-toxic and Obese
Cardiovascular: Regular Rate and S1/S2
Pulmonary: Coarse and Other (on vent)
Gastrointestinal: Soft, Non Tender and Other (Colostomy with soft stool; CHRISTINE drain serosanguinous fluid)
Genito-Urinary: Mason and Clear Urine
Extremities: Venous Insufficiency; Negative Edema
Wound: Other (Umbilical wound with serous drainage. Tissue pink, and no significant purulence. Some malodor noted.)
Neurological: Other (Sedated)
Objective Data
Lab Data
Lab Results
06/21/25 03:32
06/21/25 03:32
PT 17.4 Sec (11.4-14.6) H 06/09/25 00:01
INR 1.40 06/09/25 00:01
APTT 77.1 Sec (23.4-35.0) H 06/21/25 03:32
Estimated Creat Clear > 125 ml/min 06/21/25 03:32
Lactic Acid 0.9 mmol/L (0.7-2.0) 06/09/25 00:01
Total Bilirubin 0.4 mg/dl (0.2-1.3) 06/18/25 03:00
AST 28 U/L (17-59) 06/18/25 03:00
ALT < 10 U/L (0-50) 06/18/25 03:00
Alkaline Phosphatase 142 U/L (38-126) H 06/18/25 03:00
C-Reactive Protein > 270.00 mg/L (0.0-10.00) H 06/11/25 03:22
Most recent labs reviewed.
Micro Results:
06/19/25 09:59 Wound Culture - Preliminary
Abdomen - low wound Gram negative bacilli
Gram Stain - Preliminary
06/20/25 16:38 Body Fluid Culture - Pending
Peritoneal Fluid Gram Stain - Pending
06/20/25 16:34 Body Fluid Culture - Pending
Peritoneal Fluid Gram Stain - Pending
06/20/25 11:01 Respiratory Culture - Pending
Bronch Right Lower Lobe Gram Stain - Preliminary
06/19/25 09:59 Anaerobic Culture - Preliminary
Abdomen Culture pending. Anaerobic cultures are examined after 3
days incubation. Additional information to follow.
06/20/25 11:01 Fungal Culture - Pending
Bronch Right Lower Lobe
06/20/25 11:01 Acid Fast Bacilli Smear - Pending
Bronch Right Lower Lobe Acid Fast Bacilli Culture - Pending
06/15/25 10:08 Fungal Culture - Preliminary
Bronch Left Lower Lobe Yeast
06/17/25 13:11 MRSA Screen - Final
Nose No Methicillin Resistant Staphylococcus aureus isolated.
06/13/25 12:07 Blood Culture - Final
Blood/Venous No Growth - Final Report
06/13/25 12:07 Blood Culture - Final
Blood/Venous No Growth - Final Report
06/15/25 10:08 Acid Fast Bacilli Smear - Preliminary
Bronch Left Lower Lobe Acid Fast Bacilli Culture - Preliminary
06/15/25 10:08 Respiratory Culture - Final
Bronch Left Lower Lobe Pseudomonas aeruginosa
Gram Stain - Final
06/14/25 11:22 Respiratory Culture - Final
Tracheal Aspirate Pseudomonas aeruginosa
Gram Stain - Final
06/11/25 09:27 Blood Culture - Final
Blood/Venous No Growth - Final Report
06/11/25 09:59 Blood Culture - Final
Blood/Venous No Growth - Final Report
06/06/25 07:57 MRSA Screen - Final
Nose No Methicillin Resistant Staphylococcus aureus isolated.
Imaging:
06/18/25 CT c/a/p: Suspected moderate volume mildly complex presumed free fluid in the abdomen, overall increased in volume in comparison to recent prior study, most prominently located in the right subhepatic region, right subdiaphragmatic region
and likely left abdomen/pelvis.
06/16/25 CXR: There is moderate airspace disease in right lower lung field concerning for pneumonia. There is obscuration of the left hemidiaphragm suggesting left lower lobe pneumonia
06/15/25 CXR: No pneumothorax status post bronchoscopy. Progressive homogeneous increased retrocardiac opacity. Suspect mild left perihilar and right infrahilar opacity which could represent atelectasis or pneumonia.
06/13/25 CT a/p: Very limited study. Small volume fluid in the abdomen, particularly in the left abdomen mildly complex. As this fluid is incompletely included, it cannot be determined whether this totally represents likely free fluid or combination
of free fluid and abnormal focal fluid collection. Additional small abnormal focal fluid collections cannot be excluded on the basis of this markedly limited study. Apparent recent prior partial sigmoidectomy with large volume stool seen in the
residual sigmoid colon and rectum.
06/10 CXR: Stable CHF and bibasilar atelectasis and/or pneumonia.
06/08/25 CXR: Diffuse marked colonic dilation. Measurement of caliber of the upper colon is slightly greater then obstruction series of June 07, 2025. Multiple air-fluid levels compatible with stasis. Moderate amount of stool within the inferior
aspect of the right colon as well as within the rectum. No gross evidence for free intraperitoneal air.
06/05/25 CT a/p: Significant gaseous distention of a large portion of the colon. This contributes to limitation of this examination, as the patient cannot be fully included on the [id number] of the CT scanner. If there can be some distal colonic
decompression, repeat scan could be considered, when hopefully the patient could be entirely included on the [id number] of the exam. No gross evidence for free intraperitoneal air. Patchy parenchymal opacity within the visualized lower lung, most
likely atelectasis. Pneumonia is a differential consideration, felt to be less likely based on morphologic appearance.
Care Review
Plan reviewed with: Nurse
[2025-06-21] MEDS: MUCOMYST 10% 2 ML INH ×2 (08:02→19:19)
[2025-06-21] MEDS: VENTOLIN NEBULES 2.5 MG INH ×3 (08:02→19:19)
--- NOTE | 2025-06-21 08:05 | PHA.VAN.FU ---
Vancomycin Assessment / Plan
- Assessment
Renal Function: Stable
WBC's are: Trending Down
In the past 24 hrs, patient has been: Febrile (Tmax = 100.9)
- Assessment - Therapeutic Drug Monitoring
Extrapolated Cmax (mcg/mL): 22.3
Peak level was drawn: Appropriately
Extrapolated Cmin (mcg/mL): 9.5
Trough Drawn: Appropriately
Levels were drawn: At steady state
Calculated AUC (mcg*h/mL): 363
Calculated ke: 0.0853
Calculated half life (H): 8.1
Calculated Vd (L): 112.68
Calculated Vanc CL (ml/min): 160.23
- Dosing Plan
Adjust Regimen to: Vanc 2gm IV q12H
New Regimen Predicts: AUC (452), Peak (27.7), Trough (11.8)
- Monitoring Plan
No level(s) ordered at this time: Consider levels after 06/22 1800 dose
- Follow Up
Pharmacy will continue to follow.
Vancomycin Follow UP
- -
Patient Age: 64
Patient Sex: Male
Vancomycin Day #: 5
Indication: Pulmonary/Respiratory
Requesting Provider: Dr. Albarran/Dr. Quispe
Pertinent Antimicrobial Allergies:
NKDA
Height / Weight:
Height 6 ft 3 in
Actual Weight 147.5 kg
Pertinent Past Medical History: BMI 40
- Vital Signs / Lab Results
Temp Pulse Resp BP Pulse Ox
100.9 F H 81 4 122/48 96
06/21/25 07:21 06/21/25 06:00 06/21/25 06:00 06/20/25 16:15 06/21/25 06:00
Lab Results - Hematology
06/19/25 06/20/25 06/21/25
03:48 03:13 03:32
WBC 14.0 H 13.8 H 12.6 H
Lab Results - Chemistry
06/19/25 06/20/25 06/21/25
03:48 03:13 03:32
BUN 24 H 24 H 23 H
Creatinine 0.5 L 0.5 L 0.5 L
Estimated Creat Clear > 125 > 125 > 125
Microbiology Results
06/19/25 09:59 Wound Culture - Preliminary
Abdomen Gram negative bacilli
Gram Stain - Preliminary
06/20/25 11:01 Gram Stain - Preliminary
Bronch Right Lower Lobe
06/19/25 09:59 Anaerobic Culture - Preliminary
Abdomen Culture pending. Anaerobic cultures are examined after 3
days incubation. Additional information to follow.
06/15/25 10:08 Fungal Culture - Preliminary
Bronch Left Lower Lobe Yeast
Therapeutic Drug Monitoring
Vancomycin Peak 18.6 ug/ml (18-26) 06/20/25 21:29
Vancomycin Trough 11.1 ug/ml (5-20) 06/21/25 03:32
Random Vancomycin 14.0 ug/ml 06/19/25 03:48
[2025-06-21 08:08] LABS: Glucose - Point of Care 158 mg/dl (70-99)
[2025-06-21] MEDS: RELISTOR 12 MG SC (08:12)
--- NOTE | 2025-06-21 08:42 | PTCARENOTE ---
report received, assessments per work list. patient sedation per work list. no signs pain, vent settings adjusted to ASV. patient opens eyes, does not follow commands. sedation slow wean per dowel inserting machine operator. monitor nsr with occasional pvc. left radial
arterial line leaking. removed, pressure held. dressing applied and remains intact. abdominal dressing changed. moderate amount segovia yellow drainage. leg wound care provided. [address] draining serous fluid. complete care given. patient
remains on cooling blanket. glycemic per work list. ogt placement verified, draining thick green drainage. morales draining yellow jack urine. right 3 lumen picc patent with good blood returns. dowel inserting machine operator, ID at bedside. ekg completed. reviewed plan
of care. wrist restraints maintained for patient safety
--- NOTE | 2025-06-21 09:27 | W.PN.INTV ---
Today's Communication / Plan
Recommendations
- Switch to ASV at 120%, keep PEEP of 10
- Chest x-ray and ABG in a.m.
- Add Seroquel 50 a.m. in the morning
- Switch to light sedation for propofol and fentanyl
Assessment
-
Assessment: 64-year-old male with a past medical history of cardiomyopathy, hypertension, DM type II, history of chronic opioid use due to chronic arthritis now on buprenorphine, history of ERASMO, venous insufficiency and chronic back pain who
presented with shortness of breath, abdominal distention. Found to have severe colonic distention. Initially treated with neostigmine, attempted sigmoidoscopy without attempt. Underwent exploratory laparotomy 06/08/2025-developed shock requiring
vasopressors and remained on mechanical ventilation. We were consulted on 06/09/2025.
Chronic conditions DIRECT OF REAL ESTATE: Hypertension, BPH, DM type II, chronic back pain, cardiomyopathy, venous insufficiency, history of ERASMO, severe osteoarthritis, chronic pain management due to arthritis currently on buprenorphine in an effort to get off of
OxyContin/oxycodone,systolic cardiomyopathy.
06/21/2025 Overview: Patient currently intubated, 500/20/60%/10. Current infusions Levophed 6, heparin, TPN, propofol and fentanyl. MAP of 79, saturating 93%. Drainage from CHRISTINE drain as well as from ostomy bag. Additional peritoneal drains
draining serosanguineous fluid
Assessment and plan
#1. Acute hypoxemic respiratory failure post laparotomy complicated by VAP of LLL
- Initially due to abdominal distention requiring intubation, mechanical ventilation, subsequently LLL
- Left lower lobe dense consolidation, copious ET tube secretions noted, improved after Bronchoscopic lavage, again worse 06/19
- Continue broad-spectrum antibiotics, s/p bronchoscopy and BAL 06/16 with extensive suctioning of thick mucoid secretions in LLL. BAL growing Pseudomonas/Yeast
- Repeat bronchoscopy 06/20 with extensive clearing of thick secretions from both lower lobes. BAL right lower lobe pending
- Trial of ASV at 120%, PEEP of 10 and FiO2 60% 06/21.
- If unable to wean over the weekend, will start discussions regarding tracheostomy
- Continue Seroquel 100 mg nightly, add 50 mg during daytime
#1a. Difficulty ventilator weaning.
- Patient continues to fail attempt at weaning.
- Significant agitation and desaturations with minimal decrease in sedation. Patient was weaned off propofol and trialed on Precedex and fentanyl and after some time again started getting agitated and started desaturating. Propofol resumed on
06/19.
- Body habitus, excessive secretions, severe pneumonia as well as intra-abdominal processes are contributing to failure to liberate from mechanical ventilation
- If unable to wean over the weekend, will start discussions regarding tracheostomy
- Continue nightly Seroquel, add daytime dosing and remove propofol and fentanyl to light sedation protocol.
#1b. Endotracheal cuff leak 06/19.
- Significant air leak with loss of tidal volume despite repeated attempts at cuff inflation
- ET tube was exchanged over bougie at bedside, 8.0 ET tube placed without complications.
- Cuff leak resolved post ET tube exchange.
#2. Septic shock suspected-source likely intraperitoneal and LLL pneumonia
- Continues to need pressor support, currently on Levophed
- Continue broad-spectrum antibiotics and antifungal per infectious disease service, micafungin. Zosyn switched to meropenem per ID service, also on vancomycin
- BAL culture showing Pseudomonas
- 06/18, CT chest abdomen pelvis pursued, fluid noted in the abdomen.
- Purulent discharge from inferior margin of surgical site, bedside drainage on 06/19, sent for cultures. Growing Pseudomonas
- 06/20, IR guided peritoneal drains x 2 placed for intra-abdominal collections noted on imaging, fluid studies pending serosanguineous fluid noted
#3. Pseudoobstruction with megacolon, failed conservative management, s/p ex lap
- S/p ex lap, sigmoidectomy and end colostomy, iatrogenic spillage of stool, peritonitis, umbilical hernia repair, 06/08/2025
- Continue IV meropenem, vancomycin and micafungin
- Small-volume stool output noted in the ostomy bag
- N.p.o. currently, TPN infusing
- Increased gastric distention on CXR. Placed NG back to suction 06/19.
#4. Acute on chronic heart failure with reduced ejection fraction, LVEF 35%, Stage I diastolic dysfunction
- Patient has been diuresing well with intermittent Lasix
- Even I/O over last 24 hrs, skip diuresis today.
#5. Paroxysmal atrial flutter.
- Heparin infusion, tolerating well without any bleeding
- History of cardioversion in January 2025
- Has been on amiodarone as well
#6. Pulmonary hypertension, estimated pulmonary artery systolic pressure 50-55
- Primarily group II PH related to underlying congestive heart failure
- Continue to optimize intravascular volume, keep saturations above 90%, no indication for vasodilator therapy
#7. DM type II with Hyperglycemia
- Continue insulin infusion
#8. Prolonged QTc
- Improved after replacing potassium and magnesium
- Tolerating Seroquel well, added 50 mg daytime dose in addition to nightly 100, EKG unremarkable
Other medical diagnoses:
#Morbid obesity
#Venous deficiency
#History of ERASMO
#Chronic pain management due to arthritis currently on buprenorphine in an effort to wean off of OxyContin/oxycodone
-
DVT prophylaxis: -heparin infusion
GI prophylaxis, pantoprazole
-
Prognosis is guarded
-
Critical care statement: A total of 45 minutes of critical care time was provided for this patient today. This includes management of unstable vital signs, evaluation of the patient at bedside, reviewing the patient's pertinent medical records
including ventilator settings, arterial blood gases, radiographs, microbiology, laboratory evaluations and discussion with primary team, critical care nursing, and respiratory therapy.

Data reviewed:
Chest x-ray 06/08/2025: Reviewed, ET tube in place. Left lower lobe airspace disease. Cardiomegaly
-
CT abdomen pelvis 06/05/2025:
The patient is significantly distended, and much of the abdominal and upper pelvic soft tissues extending anterior and to the left of the [id number], which limits evaluation, as it becomes difficult to confidently follow the loops of bowel.
There is distention of the rectum with air and stool, measuring 9.3 cm in diameter. There is marked distention of the sigmoid colon which extends into the right and central upper abdomen, with the sigmoid colon measuring up to 18 cm in diameter. The
sigmoid colon contains a moderate to large amount of stool, mainly inferiorly. There appears to be moderate distention of the rest of the visualized colon.
Small bowel loops are present, and do not appear to be significantly distended, similar appearance to prior examination.
Of note, the cecum cannot be confidently identified on the present examination
No gross evidence of free intraperitoneal air.
There is patchy parenchymal opacity within the visualized lower lungs, most likely atelectasis. A component of pneumonia is also possible, although felt to be less likely. There is no significant pleural effusion and no significant pericardial
effusion.
Coronary artery calcifications are present. Please correlate with symptoms of and risk factors for coronary artery disease, with further workup as clinically appropriate.
Of note, the stomach is not distended.
Subjective Dataa
Subjective Data
Date of Service:
Date of Service: June 21, 2025
Chief Complaint: Roller Pneumatic Follow Up (Septic shock/respiratory failure require mechanical ventilation)
Subjective:
Patient currently intubated, sedated and mechanically ventilated
Review of Systems
General: Unobtainable - Sedation
Objective Data
Data Reviewed
Vital Signs / I&O / Oxygen:
Vital Signs
Temp Pulse Resp BP Pulse Ox
100.4 F H 89 24 146/70 95
06/21/25 09:00 06/21/25 09:00 06/21/25 09:00 06/21/25 09:00 06/21/25 09:00
Intake and Output
06/20/25 06/21/25 06/22/25
06:59 06:59 06:59
Intake Total 5101.2 / 5271.0 4816.1 / 4974.2 510.0 / 510.0
Output Total 4150 / 4150 4910 / 5110 550 / 550
Balance 951.2 / 1121.0 -93.9 / -135.8 -40.0 / -40.0
SaO2 [ASV] 94
SaO2 [A/C] 95
SaO2 95
Nasal Cannula flow liters per 3
minute
Physical Exam
General: Comfortable
HEENT: Normocephalic
Cardiovascular: S1-S2 and Peripheral Edema (Significantly improving edema)
Respiratory: Crackles (lower lobes bilaterally, improving), Rhonchi and ET Tube (Secretions much less and not as purulent appearing )
GI: Soft, Distended, Other (Colostomy with stool output.) and Other (NG tube in place minimal drainage)
Neurology: Other (Gets agitated when lowering sedation with desaturation.) and Other
Skin: Warm and Other ( lower extremity venous stasis, both extremities are wrapped.)
Labs/Micro/Reports
Lab Data
06/21/25 03:32
06/21/25 03:32
Laboratory Results
06/20/25 06/20/25 06/21/25
15:05 21:29 03:32
APTT 67.6 H 81.5 H 77.1 H
Microbiology
06/19/25 09:59 Abdomen Anaerobic Culture - Preliminary
Culture pending. Anaerobic cultures are examined after 3
days incubation. Additional information to follow.
06/19/25 09:59 Abdomen Wound Culture - Preliminary
Pseudomonas aeruginosa
06/19/25 09:59 Abdomen Gram Stain - Preliminary
06/20/25 11:01 Bronch Right Lower Lobe Gram Stain - Preliminary
06/15/25 10:08 Bronch Left Lower Lobe Fungal Culture - Preliminary
Yeast
06/17/25 13:11 Nose MRSA Screen - Final
No Methicillin Resistant Staphylococcus aureus isolated.
06/13/25 12:07 Blood/Venous Blood Culture - Final
No Growth - Final Report
06/13/25 12:07 Blood/Venous Blood Culture - Final
No Growth - Final Report
06/15/25 10:08 Bronch Left Lower Lobe Acid Fast Bacilli Smear - Preliminary
06/15/25 10:08 Bronch Left Lower Lobe Acid Fast Bacilli Culture - Preliminary
[2025-06-21] MEDS: DESENEX/MITRAZOL/ZEASORB 1 APPLIC TOPICAL ×2 (09:30→20:07)
[2025-06-21] MEDS: MYCAMINE 105 MG IV (09:30)
[2025-06-21] MEDS: SEROQUEL 50 MG TUBE (09:54)
[2025-06-21] MEDS: SUBLIMAZE 50 MCG IV ×2 (10:10→12:15)
[2025-06-21 10:11] LABS: Glucose - Point of Care 142 mg/dl (70-99)
--- NOTE | 2025-06-21 10:13 | PTCARENOTE ---
patient repositioned, large amounts ett secretions. thick segovia blood tinged. pulse oximeter 80's with turning, restless. dyspneic. fentanyl bolus given, RT at bedside. PEEP adjustment to 12 by RT
[2025-06-21 12:11] LABS: Glucose - Point of Care 163 mg/dl (70-99)
--- NOTE | 2025-06-21 12:28 | PTCARENOTE ---
patient reassessed, restless after turning and suctioning. makes eye contact, followed simple commands. increased nonverbal pain cues. fentanyl bolus administered. continues to suction for large amounts thick segovia bloody tinged secretions. wrist
restraints maintained for patient safety
--- NOTE | 2025-06-21 13:21 | W.PN.CRS1 ---
Today's Communication / Plan
-
local wound care
NPO/NGT to suction
Assessment/Plan
-
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
obstipation associated with megacolon. WBC 11.[address] showing gaseous distention of the colon, diameter of the sigmoid up to 18 cm in diameter. He received a dose of neostigmine, which failed. He underwent attempt at decompressive sigmoidoscopy,
but encountered too much stool. Due to refractory nature of his issue, we proceeded with surgery.
POD 12 exlap, sigmoidectomy, end-colostomy; iatrogenic spillage of stool - controlled and abdomen washed out, no colonic ischemia or perforation
S/p bronch 06/15 for right-sided mucous plugging
Tmax 100.8, VSS off levophed
WBC 12.6 from 13.8, Hb 8.3 from 8.5, Cr 0.5
Insulin gtt for hyperglycemia with TPN in setting of h/o DM
PPD #1 IR drain placement x2 to with cx pending, both drains with serous outputs
resp and wound cx +pseudomonas
Plan:
�Respiratory failure, c/b mucous plugging, pneumonia; remains intubated/vented with elevated O2 requirement
-Cont chest PT, pulmonary toilet, ppd #1 bronchoscopy
� Continue pain control and sedation
� Continue n.p.o.; cont TPN at current dosage
-nutrition recs appreciated but given hyperglycemia will not be increasing dextrose and given high dose of propofol will continue TPN w/o lipids
�cont holding tube feeds given bilious NGT outputs
� Appreciate ID, on Merrem, Vanco
�Septic shock likely due to pneumonia
-Lower portion of abdominal wound open.
-Dry packing into wound twice a day
� Continue Mason, strict I&O's
�Appreciate ham sawyer and primary
- ok to change therapeutic heparin gtt to therapeutic lovenox from surgical standpoint will defer to icu team
Subjective Data
Procedure
06/08/25- Exploratory laparotomy, lysis of adhesions, sigmoidectomy, decompression of right colon, abdominal washout, creation of end descending colostomy, umbilical hernia repair
Subjective Data
Date of Service: June 21, 2025
Patient seen and examined at bedside with Dr Pierre. at bedside, updated. Sedated on ventilator, comfortable.
Objective Data
-
Vital Signs
Temp Pulse Resp BP Pulse Ox
99.9 F 89 21 129/64 96
06/21/25 11:06 06/21/25 12:30 06/21/25 12:30 06/21/25 12:30 06/21/25 12:30
Intake & Output
06/20/25 06/21/25 06/22/25
06:59 06:59 06:59
Intake Total 5101.2 / 5271.0 4816.1 / 4974.2 1064.8 / 1064.8
Output Total 4150 / 4150 4910 / 5110 1400 / 1400
Balance 951.2 / 1121.0 -93.9 / -135.8 -335.2 / -335.2
Intake:
IV fluids (Total) 2239.2 / 2341.0 2424.1 / 2514.2 466.8 / 466.8
Fentanyl gtt 257.5 / 267.5 207.5 / 215.0 35.0 / 35.0
Insulin 174 / 180 174 / 182 36 / 36
Levophed gtt 440.0 / 462.5 645.8 / 668.3 78.8 / 78.8
Precedex 251.0 / 251.0
Propofol 482.7 / 518.0 688.8 / 710.9 137.0 / 137.0
heparin 634 / 662 708 / 738 180 / 180
IV piggybacks 1170 / 1170 650 / 650 100 / 100
TPN/PPN 1632 / 1700 1632 / 1700 408 / 408
Amount instilled into Drain (
Total)
Right Middle Abdomen Milton-
Vo B Placed in IR
Right Upper Abdomen Milton-
Vo A Placed in IR
Amount instilled into GI Tube ( 60 / 60 90 / 90 70 / 70
Total)
[place] Sump 60 / 60 90 / 90 70 / 70
Output:
Drain Output (Total) 700 / 700 450 / 450
Right Lower Abdomen Milton- 700 / 700 220 / 220
Vo
Right Middle Abdomen Milton- /
Vo B Placed in IR
Right Upper Abdomen Milton- 140 / 140
Vo A Placed in IR
Gastrointestinal tube output ( 400 / 400 700 / 700
Total)
[place] Sump 400 / 400 700 / 700
Urine, Mason 3050 / 3050 3760 / 3960 1400 / 1400
Lab Results
06/21/25 03:32
06/21/25 03:32
Physical Exam
-
General: Other (Intubated and sedated)
Abdomen: Soft, Non Distended and Other (stoma pink/viable with brown stool outputs, NGT with bilious outputs)
Skin: Warm and Dry
Wound: Other (Midline midline wound open to base with upper incisional fred in place (lower fred have been removed), some this SSF drainage from the lower aspect of the wound, CHRISTINE drain serous, IR drain x2 with serous fluid)
[2025-06-21 14:22] LABS: Glucose - Point of Care 145 mg/dl (70-99)
--- NOTE | 2025-06-21 14:33 | W.PN.HOSP.TC ---
Today's Communication/Plan
-
Assessment / Plan
Assessment / Plan
General: Intubated and sedated, diaphoretic
HEENT: NormoCephalic, ETT and OGT in place
Respiratory: Mechanical breath sounds bilaterally, equal chest rise
Cardiac: S1/S2 and Regular Rhythm; No Rub or Gallop
GI: Left-sided colostomy now with output of brown stool, CHRISTINE drain with serosanguineous output, to IR drains with serosanguineous output, midline incision with lower fred removed and wound packed
Musculoskeletal: No Edema, no deformity
Skin: Warm and dry
: Mason in place
Neuro: Sedated, responds to noxious stimuli
Psych: Unable to assess
Impression:
Mr. Knapp is a 64-year-old male with medical history of HFpEF, A-fib/flutter, IDDM, obesity, chronic pain with subsequent opioid dependence, and chronic constipation with colonic dysmotility who presented with shortness of breath, abdominal
bloating and discomfort, constipation. His last bowel movement was 2 weeks prior to arrival. He is having increasing difficulty breathing due to worsening abdominal distention. He has had multiple similar episodes since September 2024 and has
previously required decompression. He has been treated with enemas and neostigmine previously. Abdominal imaging showed significant colonic distention with air-filled loops of bowel. He also had patchy parenchymal opacities within the mid to
lower lungs. He was mildly hypoxic and has been started on antibiotics. He has remained afebrile with a mild leukocytosis of just over 12,000. He has been admitted for further evaluation and management.
Seen by GI, failed neostigmine, enema, status post nonsuccessful decompressive flexible sigmoidoscopy.
Surgery team consulted.
s/p Exploratory laparotomy, lysis of adhesions, sigmoidectomy, decompression of right colon, abdominal washout, creation of end descending colostomy, umbilical hernia repair on 06/08
admitted to ICU postoperatively, intubated.
Patient had fever,Infectious disease consult, started on zosyn.
Patient was still running fever, added micafungin.
CT chest: New right lower lobe consolidation with air bronchograms, atelectasis versus pneumonia, Possible small bilateral pleural effusions.
CT abdomen/pelvis shows: Small volume fluid in the abdomen, particularly in the left abdomen mildly complex. As this fluid is incompletely included, it cannot be determined whether this totally represents likely free fluid or combination of free
fluid and abnormal focal fluid collection. Additional small abnormal focal fluid collections cannot be excluded on the basis of this markedly limited study
Patient received Lasix.
Assessment/Plan:
Colonic dysmotility/ileus:
- Abdomen remained significantly distended despite multiple medical enemas and subsequent bowel movements
- Upgraded to IMU 06/07, pushed 4 mg neostigmine around 1:30 PM, no significant peristaltic response
- Ultimately required surgical intervention, brought to the OR 06/08 for ex lap with lysis of adhesions and sigmoidectomy with end descending colostomy, decompression of right colon, abdominal washout and umbilical hernia repair
- ICU postoperatively, intubated
- Colorectal surgery following, increased output from colostomy now with brown stool
- Lower fred removed from surgical incision with mucopurulent output, wound packed, cultures obtained, redressed
- IR placed 2 abdominal drains yesterday 06/20 with serosanguineous output, cultures pending
- Continue TPN, holding tube feeds
- Colorectal surgery okay with transitioning anticoagulation to therapeutic Lovenox as needed
Septic shock, requiring pressors:
- This is likely a primary intra-abdominal infection, stool leakage into the abdomen requiring washout, also likely has concomitant pulmonary infection
- Tracheal aspirate from 06/14 growing pansensitive Pseudomonas
- ID following, continuing vancomycin and micafungin, Zosyn switched to meropenem
- Leukocytosis improving, fever curve improving
- Vasopressors as needed, currently on hold
- Precedex discontinued as it was useless and keeping him sedated, continuing sedation with propofol and fentanyl
Acute hypoxic respiratory failure (currently intubated in the ICU postoperatively)
- Continue mechanical ventilation, ETT replaced 06/19 by dental tech
- Persistent copious thick secretions and left lower lobe volume loss
- Underwent bronchoscopy with BAL left lower lobe 06/15 by dental tech, cultures growing Pseudomonas, repeat bronchoscopy with BAL today 06/20 with aspiration of copious secretions
- Continue antimicrobial coverage with micafungin, vancomycin, and meropenem
- Hypertonic nebulized saline 3 times a day with albuterol, aggressive chest PT
- Started Seroquel 50 mg in the morning and 100 mg at night, monitor QTc
- Patient was inadequately sedated with Precedex which has now been discontinued, restarted propofol and fentanyl drips
- Additional Lasix pushes as needed
- Weaning trials as tolerated
- Will need to decide with family whether or not to pursue tracheostomy in the next few days
paroxismal A-fib/flutter:
- Currently rate controlled, holding home metoprolol, continue home amiodarone 200 mg at night via OGT
- Holding home Xarelto, have been anticoagulating with IV heparin, colorectal surgery okay with transition to therapeutic Lovenox as needed
IDDM:
- Insulin drip.
HFrEF:
- Acute on chronic chronic
- Holding home metoprolol succinate 100 mg
- Lasix pushes as needed, holding spironolactone, monitor daily weights
- No need for afterload reduction due to hypotension
CODE STATUS: Full code
DVT prophylaxis: Heparin drip
Diet: TPN
Disposition: Continue management in the ICU.
Total time spent on today's encounter was 54 minutes
Anticipated Discharge: > 48 hours
Subjective/Interval History
-
Date of Service: June 21, 2025
Patient was seen and examined this morning. Persistently febrile. Leukocytosis resolving. Status post 2 abdominal drain placements by IR yesterday.
Objective Data
-
Labs:
Laboratory Results
06/21/25
03:32
WBC 12.6 H
Hgb 8.3 L
Hct 27.9 L
Plt Count 246
APTT 77.1 H
Sodium 139
Potassium 4.5
Chloride 103
Carbon Dioxide 35 H
BUN 23 H
Creatinine 0.5 L
Glucose 163 H
Calcium 8.3 L
Vital Signs:
Vital Signs
Temp Pulse Resp BP Pulse Ox
100.8 F H 88 19 114/62 95
06/21/25 14:00 06/21/25 14:15 06/21/25 14:15 06/21/25 14:00 06/21/25 14:15
I&O
06/20/25 06/21/25 06/22/25
06:59 06:59 06:59
Intake Total 5101.2 / 5271.0 4816.1 / 4974.2 1331.0 / 1331.0
Output Total 4150 / 4150 4910 / 5110 1700 / 1700
Balance 951.2 / 1121.0 -93.9 / -135.8 -369.0 / -369.0
Review of Systems
-
Unable to obtain full review of systems at this time due to: Patient Intubation
Physical Exam
-
General: Intubated
[2025-06-21] MEDS: MUCOMYST 10% INH (14:34)
--- NOTE | 2025-06-21 16:07 | PTCARENOTE ---
reassessed. after bed percussion and repositioning, patient pulse oximeter 80's. vigorous suctioning completed. suctioned for large amounts very thick segovia secretions. sats 90's after suctioning. cooling blanket for elevated temp. spouse at bedside.
updated. gtts and sedation per work list
[2025-06-21 16:14] LABS: Glucose - Point of Care 123 mg/dl (70-99)
--- NOTE | 2025-06-21 17:33 | PTCARENOTE ---
patient with large formed stool on stoma. unable to move through ostomy bag. bag removed, stoma cleared of stool. bag reapplied. after which patient expelled large amount flatus and softer brown stool. repositioned, suctioned.
[2025-06-21] MEDS: VANCOCIN 540 MG IV (17:35)
[2025-06-21 18:00] LABS: Glucose - Point of Care 121 mg/dl (70-99)
[2025-06-21] MEDS: Parenteral Nutrition, Central 1640 IV (20:07)
[2025-06-21 20:25] LABS: Glucose - Point of Care 143 mg/dl (70-99)
--- NOTE | 2025-06-21 20:34 | PTCARENOTE ---
Assumed care of pt. 1900.
Remains intubated/sedated. See Flowsheets.
Hemodynamically stable off of pressors, art line removed by day team NIBP for titration metrics.
Tolerating vent settings.
[2025-06-21] MEDS: PACERONE 200 MG TUBE (22:01)
[2025-06-21] MEDS: LIPITOR 40 MG TUBE (22:01)
[2025-06-21] MEDS: SEROQUEL 100 MG TUBE (22:01)
[2025-06-21 22:11] LABS: Glucose - Point of Care 143 mg/dl (70-99)
[2025-06-22] VITALS (24 sets, daily range): BP systolic 108–152; BP diastolic 55–82; BMI 40.5
--- NOTE | 2025-06-22 00:27 | PTCARENOTE ---
No changes in pt. assessment.
[2025-06-22 00:37] LABS: Glucose - Point of Care 141 mg/dl (70-99)
[2025-06-22] MEDS: MERREM 500 MG IV ×4 (00:51→17:24)
[2025-06-22] MEDS: STERILE WATER FOR INJECTION 10 ML IV ×4 (00:52→17:24)
[2025-06-22] MEDS: TYLENOL ORAL SOLUTION 650 MG TUBE ×2 (03:10→15:32)
[2025-06-22] MEDS: DIPRIVAN 100 IV ×4 (03:10→22:17)
[2025-06-22 03:44] LABS: B.E. 13.8 mmol/L; HCO3 39.8 mmol/L (21-28); O2 Saturation % 98.4 % (94-98); PCO2 60 mmHg (35-48); PO2 93 mmHg (83-108)
[2025-06-22 03:46] LABS: Hematocrit 25.8 % (39.0-52.0); Hemoglobin 7.9 g/dL (13.0-18.0); Mean Corp Hgb Conc. 30.6 g/dL (33.0-37.0); Mean Corpuscular Volume 84.9 fL (80.0-94.0); Platelet Count 230 10^3/uL (130-400); Red Cell Dist. Width 15.1 % (11.5-14.5)
[2025-06-22 03:53] LABS: APTT 60.7 Sec (23.4-35.0)
[2025-06-22 04:17] LABS: ALT (SGPT) 21 U/L (0-50); AST (SGOT) 50 U/L (17-59); Albumin 2.1 g/dl (3.5-5.0); Alkaline Phosphatase 113 U/L (38-126); Blood Urea Nitrogen 26 mg/dl (9-20); Calcium 8.2 mg/dl (8.4-10.2); Carbon Dioxide 37 mmol/L (22-30); Chloride 103 mmol/L (98-107); Estimated Creatinine Clearance > 125 ml/min; Glucose 131 mg/dl (70-99); Magnesium 2.2 mg/dl (1.6-2.3); Potassium 4.2 mmol/L (3.5-5.1); Sodium 140 mmol/L (135-145); Total Protein 5.3 g/dl (6.3-8.2); Triglycerides 108 mg/dl (10-149); eGFR > 60.00
[2025-06-22 04:18] LABS: Glucose - Point of Care 128 mg/dl (70-99)
--- NOTE | 2025-06-22 05:14 | PTCARENOTE ---
Addendum entered by Dario Minaya RN 06/22/25 05:15:
Low grade fever 100.6 --> APAP given, Provider notified.
Original Note:
Heparin gtt increased per protocol.
No further changes in assessment.
[2025-06-22] MEDS: VANCOCIN 540 MG IV (05:35)
[2025-06-22] MEDS: HEPARIN 25000 UNITS/250 ML IV ×3 (05:35→20:04)
[2025-06-22 06:01] LABS: Glucose - Point of Care 136 mg/dl (70-99)
[2025-06-22] MEDS: VENTOLIN NEBULES 2.5 MG INH ×3 (07:27→20:24)
[2025-06-22] MEDS: MUCOMYST 10% 2 ML INH ×3 (07:27→20:24)
--- NOTE | 2025-06-22 07:47 | PN.DE.MGMTRT ---
Insulin Management
- -
06/22/2025: Diabetes Management Follow up
Patient admitted 06/05 with c/o difficulty breathing. Diabetes management consult 06/15. PMH 5 weeks of constipation with abdominal distention, HTN, A-Fib, CHF Prior to admission was taking Lantus 24 units daily with NovoLog 20 units AC and Farxiga 5
mg daily. A1C on admission 7.1%, cr today .5, eGFR > 60.
Patient is currently intubated and sedated. Information obtained from chart and patient nurse and pharmacist. Patient s/p OR 06/08 for lysis of adhesions, sigmoidectomy, with end descending colostomy.
Remains on critical care glycemic protocol which was started 06/12, Glucose range 127 to 136. Patient has required 5 to 6 units of insulin per hour.
Receiving TPN, trickle feeds started this morning at 10cc/hr. Will closely monitor glucose trend and add Q 6 hour NovoLog sq if insulin requirements increase.
Discussed with nurse. Will cont to follow.
Diabetes History
- -
Type of Diabetes: 2
Pre-Admission Diabetes Regimen
06/22/25
03:20
Creatinine 0.5 L
Insulin Pump Settings
IP Diabetes Regimen
06/21/25 06/21/25 06/21/25
07:56 09:59 12:00
Glucose
POC Glucose 158 H 142 H 163 H
06/21/25 06/21/25 06/21/25
14:10 16:03 17:49
Glucose
POC Glucose 145 H 123 H 121 H
06/21/25 06/21/25 06/22/25
20:15 22:00 00:26
Glucose
POC Glucose 143 H 143 H 141 H
06/22/25 06/22/25 06/22/25
03:20 04:06 05:50
Glucose 131 H
POC Glucose 128 H 136 H
Patient Education
--- NOTE | 2025-06-22 07:48 | W.PN.INTV ---
Today's Communication / Plan
Recommendations
Wean PEEP down to 8, maintain saturation greater than 90%
Continue propofol, fentanyl, Seroquel
EKG in a.m.
Pressors have been weaned off
Continue heparin drip, amiodarone drip
Send type and screen in a.m.
ENT to be consulted, tentative tracheostomy later this week
Assessment
-
Assessment: 64-year-old male with a past medical history of cardiomyopathy, hypertension, DM type II, history of chronic opioid use due to chronic arthritis now on buprenorphine, history of ERASMO, venous insufficiency and chronic back pain who
presented with shortness of breath, abdominal distention. Found to have severe colonic distention. Initially treated with neostigmine, attempted sigmoidoscopy without attempt. Underwent exploratory laparotomy 06/08/2025-developed shock requiring
vasopressors and remained on mechanical ventilation. We were consulted on 06/09/2025.
Chronic conditions PAPER CONSERVATOR: Hypertension, BPH, DM type II, chronic back pain, cardiomyopathy, venous insufficiency, history of ERASMO, severe osteoarthritis, chronic pain management due to arthritis currently on buprenorphine in an effort to get off of
OxyContin/oxycodone,systolic cardiomyopathy.
06/22/2025 Overview: Patient currently intubated, ASV 120%. Current infusions Levophed weaned off, heparin, TPN, propofol and fentanyl. Drainage from CHRISTINE drain as well as from ostomy bag. Additional peritoneal drains draining serosanguineous
fluid. Significant secretions per ET tube
Assessment and plan
#1. Acute hypoxemic respiratory failure post laparotomy complicated by VAP of LLL, intubated 06/08
- Initially due to abdominal distention requiring intubation, mechanical ventilation, subsequently LLL
- Left lower lobe dense consolidation, copious ET tube secretions noted, improved after Bronchoscopic lavage, again worse 06/19
- Continue broad-spectrum antibiotics, s/p bronchoscopy and BAL 06/16 with extensive suctioning of thick mucoid secretions in LLL. BAL growing Pseudomonas/Yeast
- Repeat bronchoscopy 06/20 with extensive clearing of thick secretions from both lower lobes. BAL right lower lobe pending
- Tolerating ASV at 120%, PEEP of 12 and FiO2 60%. Will wean PEEP down to 8, maintain saturation of greater than 90%
- Updated at length and reviewed with ENT. ENT consult placed for possible tracheostomy later this week. is agreeable
- Continue Seroquel 100 mg nightly, add 50 mg during daytime. EKG in a.m.
#1a. Difficulty ventilator weaning.
- Patient continues to fail attempt at weaning.
- Significant agitation and desaturations with minimal decrease in sedation. Patient was weaned off propofol and trialed on Precedex and fentanyl and after some time again started getting agitated and started desaturating. Propofol resumed on
06/19.
- Body habitus, excessive secretions, severe pneumonia as well as intra-abdominal processes are contributing to failure to liberate from mechanical ventilation
- Plan for tracheostomy later this week
- Continue nightly Seroquel, add daytime dosing and remove propofol and fentanyl to light sedation protocol.
#1b. Endotracheal cuff leak 06/19.
- Significant air leak with loss of tidal volume despite repeated attempts at cuff inflation
- ET tube was exchanged over bougie at bedside, 8.0 ET tube placed without complications.
- Cuff leak resolved post ET tube exchange. Minute ventilation adequate at around 14 to 15 L/min
#2. Septic shock suspected-source likely intraperitoneal and LLL pneumonia
- Continues to need pressor support, norepinephrine weaned off
- Continue broad-spectrum antibiotics and antifungal per infectious disease service, micafungin. Zosyn switched to meropenem per ID service, also on vancomycin
- BAL culture showing Pseudomonas
- 06/18, CT chest abdomen pelvis pursued, fluid noted in the abdomen.
- Purulent discharge from inferior margin of surgical site, bedside drainage on 06/19, sent for cultures. Growing Pseudomonas
- 06/20, IR guided peritoneal drains x 2 placed for intra-abdominal collections noted on imaging, fluid studies pending serosanguineous fluid noted
#3. Pseudoobstruction with megacolon, failed conservative management, s/p ex lap
- S/p ex lap, sigmoidectomy and end colostomy, iatrogenic spillage of stool, peritonitis, umbilical hernia repair, 06/08/2025
- Continue IV meropenem, vancomycin and micafungin
- Small-volume stool output noted in the ostomy bag
- N.p.o. currently, TPN infusing. Plans for trickle feeds noted per colorectal surgery to start 06/22
- Increased gastric distention on CXR. Placed NG back to suction 06/19.
#4. Acute on chronic heart failure with reduced ejection fraction, LVEF 35%, Stage I diastolic dysfunction
- Patient has been diuresing well with intermittent Lasix
- Will give dose of Lasix today
- Weight is down 13 kg since admission
#5. Paroxysmal atrial flutter.
- Heparin infusion, tolerating well without any bleeding
- History of cardioversion in January 2025
- Has been on amiodarone as well
#6. Pulmonary hypertension, estimated pulmonary artery systolic pressure 50-55
- Primarily group II PH related to underlying congestive heart failure
- Continue to optimize intravascular volume, keep saturations above 90%, no indication for vasodilator therapy
#7. DM type II with Hyperglycemia
- Continue insulin infusion
#8. Prolonged QTc
- Improved after replacing potassium and magnesium
- Tolerating Seroquel well, added 50 mg daytime dose in addition to nightly 100, EKG being followed
Other medical diagnoses:
#Morbid obesity
#Venous deficiency
#History of ERASMO
#Chronic pain management due to arthritis currently on buprenorphine in an effort to wean off of OxyContin/oxycodone
-
DVT prophylaxis: -heparin infusion
GI prophylaxis, pantoprazole
-
Prognosis is guarded
-
Critical care statement: A total of 45 minutes of critical care time was provided for this patient today. This includes management of unstable vital signs, evaluation of the patient at bedside, reviewing the patient's pertinent medical records
including ventilator settings, arterial blood gases, radiographs, microbiology, laboratory evaluations and discussion with primary team, critical care nursing, and respiratory therapy.
Updated at length by phone on 06/22. Agreeable for tracheostomy evaluation and placement. Patient has requested Dr. Diaz and associates

Data reviewed:
Chest x-ray 06/08/2025: Reviewed, ET tube in place. Left lower lobe airspace disease. Cardiomegaly
-
CT abdomen pelvis 06/05/2025:
The patient is significantly distended, and much of the abdominal and upper pelvic soft tissues extending anterior and to the left of the [id number], which limits evaluation, as it becomes difficult to confidently follow the loops of bowel.
There is distention of the rectum with air and stool, measuring 9.3 cm in diameter. There is marked distention of the sigmoid colon which extends into the right and central upper abdomen, with the sigmoid colon measuring up to 18 cm in diameter. The
sigmoid colon contains a moderate to large amount of stool, mainly inferiorly. There appears to be moderate distention of the rest of the visualized colon.
Small bowel loops are present, and do not appear to be significantly distended, similar appearance to prior examination.
Of note, the cecum cannot be confidently identified on the present examination
No gross evidence of free intraperitoneal air.
There is patchy parenchymal opacity within the visualized lower lungs, most likely atelectasis. A component of pneumonia is also possible, although felt to be less likely. There is no significant pleural effusion and no significant pericardial
effusion.
Coronary artery calcifications are present. Please correlate with symptoms of and risk factors for coronary artery disease, with further workup as clinically appropriate.
Of note, the stomach is not distended.
Subjective Dataa
Subjective Data
Date of Service:
Date of Service: June 22, 2025
Chief Complaint: Family And Marriage Counsellor Follow Up (Septic shock/respiratory failure require mechanical ventilation)
Subjective:
Patient remains critically ill, ventilator dependent. Unable to wean. Intermittent rapid shallow breathing noted, pressors have been weaned off. Unfortunately requiring fentanyl and propofol for sedation. Significant secretions noted, no blood.
Remains on TPN
Objective Data
Data Reviewed
Vital Signs / I&O / Oxygen:
Vital Signs
Temp Pulse Resp BP Pulse Ox
99.7 F 70 24 119/72 96
06/22/25 07:14 06/22/25 07:00 06/22/25 07:00 06/22/25 07:00 06/22/25 07:32
Intake and Output
06/21/25 06/22/25 06/23/25
06:59 06:59 06:59
Intake Total 4816.1 / 4974.2 4426.1 / 4426.1
Output Total 4910 / 5110 4295 / 4295
Balance -93.9 / -135.8 131.1 / 131.1
SaO2 [ASV] 96
SaO2 [A/C] 95
SaO2 96
Nasal Cannula flow liters per 3
minute
Physical Exam
General: Comfortable (Intermittent rapid shallow breathing), Other (Large neck) and Other (Right upper extremity PICC)
HEENT: Normocephalic and Anicteric
Cardiovascular: S1-S2, Regular Rhythm, Murmur (n) and Peripheral Edema (1+, lower extremity stockings in place)
Respiratory: Wheeze (n), Crackles (Mild bibasilar), Rhonchi (Few scattered), Non-Labored Respirations and ET Tube (Secretions much less and not as purulent appearing )
GI: Soft, Distended (Morbidly obese), Other (Colostomy with stool output. Multiple CHRISTINE drains with serous drainage) and Other (NG tube in place minimal drainage)
Neurology: Other (Gets agitated when lowering sedation with desaturation.) and Other
Skin: Warm and Other ( lower extremity venous stasis, both extremities are wrapped.)
Labs/Micro/Reports
Lab Data
06/22/25 03:20
06/22/25 03:20
Laboratory Results
06/22/25 06/22/25
03:20 03:37
APTT 60.7 H
pH 7.43
pCO2 60 H
pO2 93
HCO3 39.8 H
O2 Delivery Level
Microbiology
06/20/25 16:38 Peritoneal Fluid Gram Stain - Preliminary
06/20/25 16:34 Peritoneal Fluid Gram Stain - Preliminary
06/15/25 10:08 Bronch Left Lower Lobe Fungal Culture - Preliminary
Evelyn albicans
06/20/25 11:01 Bronch Right Lower Lobe Respiratory Culture - Preliminary
Pseudomonas species
06/20/25 11:01 Bronch Right Lower Lobe Gram Stain - Preliminary
06/19/25 09:59 Abdomen Anaerobic Culture - Preliminary
Culture pending. Anaerobic cultures are examined after 3
days incubation. Additional information to follow.
06/19/25 09:59 Abdomen Wound Culture - Preliminary
Pseudomonas aeruginosa
06/19/25 09:59 Abdomen Gram Stain - Preliminary
[2025-06-22 08:09] LABS: Glucose - Point of Care 127 mg/dl (70-99)
[2025-06-22] MEDS: PROTONIX IV 40 MG IV (08:14)
[2025-06-22] MEDS: NSS (PRESERVATIVE FREE) 10 ML IV (08:14)
[2025-06-22] MEDS: SEROQUEL 50 MG TUBE (08:15)
[2025-06-22] MEDS: HYDROPHOR 1 APPLIC TOPICAL (08:15)
[2025-06-22] MEDS: SUBUTEX 4 MG SL (08:15)
[2025-06-22] MEDS: DESENEX/MITRAZOL/ZEASORB 1 APPLIC TOPICAL ×2 (08:16→20:59)
[2025-06-22 08:23] LABS: Glucose - Point of Care 136 mg/dl (70-99)
--- NOTE | 2025-06-22 08:45 | W.PN.CRS1 ---
Today's Communication / Plan
-
as below
Assessment/Plan
-
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
obstipation associated with megacolon. WBC 11.[address] showing gaseous distention of the colon, diameter of the sigmoid up to 18 cm in diameter. He received a dose of neostigmine, which failed. He underwent attempt at decompressive sigmoidoscopy,
but encountered too much stool. Due to refractory nature of his issue, we proceeded with surgery.
POD 13 exlap, sigmoidectomy, end-colostomy; iatrogenic spillage of stool - controlled and abdomen washed out, no colonic ischemia or perforation
S/p bronch 06/15 for right-sided mucous plugging
S/p bronch 16 for mucus plugging, repeat bronch same day for hemoptysis
s/p IR drains x2 on the right for fluid cllxn, Cx -ngtd
Tmax 100.9, VSS, off pressors
WBC 10.5 from 12.6, Hb 7.9 from 8.3, CR 0.5, NGT - 300mL for last 3 hrs, gastric quality
�Respiratory failure, c/b mucous plugging, pneumonia
-Appreciate membership administrator; considering trach
-Cont chest PT, pulmonary toilet
� Continue pain control and sedation
�Continue hep drip; okay for therapeutic Lovenox from surgical standpoint
� Continue TPN; will restart tube feeds
-nutrition recs appreciated but given hyperglycemia will not be increasing dextrose and given high dose of propofol will continue TPN w/o lipids
� Appreciate ID, on Merrem, Vanco, david
�Septic shock likely due to pneumonia
-Lower portion of abdominal wound open; no evidence of infection; WTD packing into wound twice a day
� Continue Mason, strict I&O's
�Appreciate membership administrator and primary
Subjective Data
Procedure
06/08/25- Exploratory laparotomy, lysis of adhesions, sigmoidectomy, decompression of right colon, abdominal washout, creation of end descending colostomy, umbilical hernia repair
Subjective Data
Date of Service: June 22, 2025
Patient has been weaned off of pressors over the weekend. His FiO2 remains at 60%.
He is having ostomy function. Have been unable to wean the vent and will likely recommend trach placement.
Objective Data
-
Vital Signs
Temp Pulse Resp BP Pulse Ox
99.7 F 83 21 131/75 95
06/22/25 07:14 06/22/25 08:00 06/22/25 08:00 06/22/25 08:00 06/22/25 08:00
Intake & Output
06/21/25 06/22/25 06/23/25
06:59 06:59 06:59
Intake Total 4816.1 / 4974.2 4426.1 / 4552.2 251.2 / 251.2
Output Total 4910 / 5110 4295 / 4445 290 / 290
Balance -93.9 / -135.8 131.1 / 107.2 -38.8 / -38.8
Intake:
Oral fluids 0 / 0
IV fluids (Total) 2424.1 / 2514.2 1499.1 / 1557.2 115.2 / 115.2
Fentanyl gtt 207.5 / 215.0 85.0 / 87.5 5.0 / 5.0
Insulin 174 / 182 148 / 154 11 / 11
Levophed gtt 645.8 / 668.3 78.8 / 78.8
Propofol 688.8 / 710.9 467.3 / 484.9 35.2 / 35.2
heparin 708 / 738 720 / 752 64 / 64
IV piggybacks 650 / 650 1175 / 1175
TPN/PPN 1632 / 1700 1632 / 1700 136 / 136
Amount instilled into Drain (
Total)
Right Middle Abdomen Milton-
Vo B Placed in IR
Right Upper Abdomen Milton-
Vo A Placed in IR
Amount instilled into GI Tube ( 100 / 100
Total)
Freeman Sump 90 100 / 100
Output:
Drain Output (Total) 450 / 450 135 / 135
Right Lower Abdomen Milton- 220 / 220 35 / 35
Vo
Right Middle Abdomen Milton- 90 / 90 60 / 60
Vo B Placed in IR
Right Upper Abdomen Milton- 140 / 140 40 / 40
Vo A Placed in IR
Gastrointestinal tube output ( 700 / 700 700 / 700
Total)
Freeman Sump 700 / 700 700 / 700
Urine, Mason 3760 / 3960 3460 / 3610 290 / 290
Lab Results
06/22/25 03:20
06/22/25 03:20
Physical Exam
-
General: No Acute Distress (intubated/sedated, responded to command)
HEENT: Grossly Normal
Abdomen: Soft, Non Distended, Non Tender and Other (ostomy pink and productive of stool)
Skin: Warm and Dry
Wound: Other (JPx3- serous fluid; midline with intermittent fred, inferior aspect of wound open, likely fascial dehiscence of about 10cm, no exposed bowel)
--- NOTE | 2025-06-22 09:00 | PHA.VAN.FU ---
Vancomycin Assessment / Plan
- Assessment
Renal Function: Stable
WBC's are: WNL
In the past 24 hrs, patient has been: Afebrile
Concomitant Antimicrobials: micafungin, meropenem
- Dosing Plan
Continue: vancomycin 2000mg Q12H
- Monitoring Plan
Peak Level: 06/22 @2200
Trough Level: 06/23 @0530
- Follow Up
Pharmacy will continue to follow.
Vancomycin Follow UP
- -
Patient Age: 64
Patient Sex: Male
Vancomycin Day #: 5
Indication: Pulmonary/Respiratory
Requesting Provider: Dr. Albarran/Dr. Quispe
Pertinent Antimicrobial Allergies:
NKDA
Height / Weight:
Height 6 ft 3 in
Actual Weight 147.1 kg
Pertinent Past Medical History: BMI 40
- Vital Signs / Lab Results
Temp Pulse Resp BP Pulse Ox
99.7 F 83 21 131/75 92
06/22/25 07:14 06/22/25 08:00 06/22/25 08:00 06/22/25 08:00 06/22/25 08:53
Lab Results - Hematology
06/20/25 06/21/25 06/22/25
03:13 03:32 03:20
WBC 13.8 H 12.6 H 10.5
Lab Results - Chemistry
06/20/25 06/21/25 06/22/25
03:13 03:32 03:20
BUN 24 H 23 H 26 H
Creatinine 0.5 L 0.5 L 0.5 L
Estimated Creat Clear > 125 > 125 > 125
Albumin 2.1 L
Microbiology Results
06/15/25 10:08 Fungal Culture - Preliminary
Bronch Left Lower Lobe Evelyn albicans
06/19/25 09:59 Anaerobic Culture - Preliminary
Abdomen Culture pending. Anaerobic cultures are examined after 3
days incubation. Additional information to follow.
06/20/25 16:38 Gram Stain - Preliminary
Peritoneal Fluid
06/20/25 16:34 Gram Stain - Preliminary
Peritoneal Fluid
06/20/25 11:01 Respiratory Culture - Preliminary
Bronch Right Lower Lobe Pseudomonas species
Gram Stain - Preliminary
06/19/25 09:59 Wound Culture - Preliminary
Abdomen Pseudomonas aeruginosa
Gram Stain - Preliminary
Therapeutic Drug Monitoring
Vancomycin Peak 18.6 ug/ml (18-26) 06/20/25 21:29
Vancomycin Trough 11.1 ug/ml (5-20) 06/21/25 03:32
Random Vancomycin 14.0 ug/ml 06/19/25 03:48
[2025-06-22] MEDS: RELISTOR 12 MG SC (09:09)
--- NOTE | 2025-06-22 09:30 | PTCARENOTE ---
Rec'd care of patient at 0700. Patient remains intubated. Sedated on fentanyl and propofol gtts. Pupils equal and reactive; +2mm. MAEx4. Following commands appropriately. NSR with pvcs on tele. +1 generalized anasarca. #8.0 ett. ETT found to be
positioned at 21cm. Repositioned back to 26cm by RT. Vent settings: ASV 120% mv, 12 of PEEP, 60% fio2. Lung sounds coarse rhonchi throughout. Copious amounts of thick clear/white secretions suctioned from mouth and ett. Hypo BS. Abdomen
roud/distended. Small amount of stool from colostomy. OGT to LIS. Midline incision assessed. ARNALDO on top half; approximated with fred. Bottom half covered with dressing; c/d/i. CHRISTINE drains x3; all with serous output. Top and middle drains flushed as
ordered. Mason in place for critical I/O. Right TLC in place with Fent/Prop/Heparin/TPN/Insulin infusing. GP continued. See worklist for full assessment and care.
--- NOTE | 2025-06-22 09:48 | W.PN.HOSP.TC ---
Today's Communication/Plan
-
Continue management in ICU.
Discussion with family regarding tracheostomy
Continue antibiotics as per infectious diseae
Assessment / Plan
Assessment / Plan
Impression:
Mr. Knapp is a 64-year-old male with medical history of HFpEF, A-fib/flutter, IDDM, obesity, chronic pain with subsequent opioid dependence, and chronic constipation with colonic dysmotility who presented with shortness of breath, abdominal
bloating and discomfort, constipation. His last bowel movement was 2 weeks prior to arrival. He is having increasing difficulty breathing due to worsening abdominal distention. He has had multiple similar episodes since September 2024 and has
previously required decompression. He has been treated with enemas and neostigmine previously. Abdominal imaging showed significant colonic distention with air-filled loops of bowel. He also had patchy parenchymal opacities within the mid to
lower lungs. He was mildly hypoxic and has been started on antibiotics. He has remained afebrile with a mild leukocytosis of just over 12,000. He has been admitted for further evaluation and management.
Seen by GI, failed neostigmine, enema, status post nonsuccessful decompressive flexible sigmoidoscopy.
Surgery team consulted.
s/p Exploratory laparotomy, lysis of adhesions, sigmoidectomy, decompression of right colon, abdominal washout, creation of end descending colostomy, umbilical hernia repair on 06/08
admitted to ICU postoperatively, intubated.
Patient had fever,Infectious disease consult, started on zosyn.
Patient was still running fever, added micafungin.
CT chest: New right lower lobe consolidation with air bronchograms, atelectasis versus pneumonia, Possible small bilateral pleural effusions.
CT abdomen/pelvis shows: Small volume fluid in the abdomen, particularly in the left abdomen mildly complex. As this fluid is incompletely included, it cannot be determined whether this totally represents likely free fluid or combination of free
fluid and abnormal focal fluid collection. Additional small abnormal focal fluid collections cannot be excluded on the basis of this markedly limited study
Patient received Lasix.
Difficult extubation, discussion regarding trach
Currently intubated, surgery okay with trickle feeding.
Assessment/Plan:
Colonic dysmotility/ileus:
- Abdomen remained significantly distended despite multiple medical enemas and subsequent bowel movements
- Upgraded to IMU 06/07, pushed 4 mg neostigmine around 1:30 PM, no significant peristaltic response
- Ultimately required surgical intervention, brought to the OR 06/08 for ex lap with lysis of adhesions and sigmoidectomy with end descending colostomy, decompression of right colon, abdominal washout and umbilical hernia repair
- ICU postoperatively, intubated
- Colorectal surgery following, increased output from colostomy now with brown stool
- Lower fred removed from surgical incision with mucopurulent output, wound packed, cultures obtained, redressed
- IR placed 2 abdominal drains yesterday 06/20 with serosanguineous output, cultures pending
- Continue TPN, holding tube feeds
- Colorectal surgery okay with transitioning anticoagulation to therapeutic Lovenox as needed
- Surgery Okay with trickle feed
Septic shock, requiring pressors:
- This is likely a primary intra-abdominal infection, stool leakage into the abdomen requiring washout, also likely has concomitant pulmonary infection
- Tracheal aspirate from 06/14 growing pansensitive Pseudomonas
- ID following, continuing vancomycin and micafungin, Zosyn switched to meropenem
- Leukocytosis improving, fever curve improving
- Vasopressors as needed, currently on hold
- Precedex discontinued as it was useless and keeping him sedated, continuing sedation with propofol and fentanyl
Acute hypoxic respiratory failure (currently intubated in the ICU postoperatively)
- Continue mechanical ventilation, ETT replaced 06/19 by contact lens molder
- Persistent copious thick secretions and left lower lobe volume loss
- Underwent bronchoscopy with BAL left lower lobe 06/15 by contact lens molder, cultures growing Pseudomonas, repeat bronchoscopy with BAL today 06/20 with aspiration of copious secretions
- Continue antimicrobial coverage with micafungin, vancomycin, and meropenem
- Hypertonic nebulized saline 3 times a day with albuterol, aggressive chest PT
- Started Seroquel 50 mg in the morning and 100 mg at night, monitor QTc
- Patient was inadequately sedated with Precedex which has now been discontinued, restarted propofol and fentanyl drips
- Additional Lasix pushes as needed
- Weaning trials as tolerated
- Will need to decide with family whether or not to pursue tracheostomy in the next few days
paroxismal A-fib/flutter:
- Currently rate controlled, holding home metoprolol, continue home amiodarone 200 mg at night via OGT
- Holding home Xarelto, have been anticoagulating with IV heparin, colorectal surgery okay with transition to therapeutic Lovenox as needed
IDDM:
- Insulin drip.
HFrEF:
- Acute on chronic chronic
- Holding home metoprolol succinate 100 mg
- Lasix pushes as needed, holding spironolactone, monitor daily weights
- No need for afterload reduction due to hypotension
CODE STATUS: Full code
DVT prophylaxis: Heparin drip
Diet: TPN
Disposition: Continue management in the ICU.
Total time spent on today's encounter was 74 minutes which included time spent in counseling the patient/family regarding diagnosis and treatment plan as listed above, goals of care, and symptom management. Case was discussed with nursing staff,
specialists, and care coordinators/case management. All labs and imaging personally reviewed by me. Remainder the time spent in detailed review of previous records, lab data, imaging, and other medical provider documentation.
Anticipated Discharge: > 48 hours
Subjective/Interval History
-
Date of Service: June 22, 2025
Patient remains intubated, ongoing discussion with the family regarding tracheostomy.
Objective Data
-
Labs:
Laboratory Results
06/22/25 06/22/25 06/22/25
03:20 03:37 09:19
WBC 10.5
Hgb 7.9 L
Hct 25.8 L
Plt Count 230
APTT 60.7 H Pending
HCO3 39.8 H
Sodium 140
Potassium 4.2
Chloride 103
Carbon Dioxide 37 H
BUN 26 H
Creatinine 0.5 L
Glucose 131 H
Calcium 8.2 L
Total Bilirubin 0.4
AST 50
ALT 21
Alkaline Phosphatase 113
Vital Signs:
Vital Signs
Temp Pulse Resp BP Pulse Ox
99.7 F 83 21 131/75 92
06/22/25 07:14 06/22/25 08:00 06/22/25 08:00 06/22/25 08:00 06/22/25 08:53
I&O
06/21/25 06/22/25 06/23/25
06:59 06:59 06:59
Intake Total 4816.1 / 4974.2 4426.1 / 4552.2 376.3 / 376.3
Output Total 4910 / 5110 4295 / 4445 465 / 465
Balance -93.9 / -135.8 131.1 / 107.2 -88.7 / -88.7
Physical Exam
-
General: Intubated and Obese
HEENT: Normocephalic, Atraumatic, Moist Mucous Membranes, No Ptosis, PERRLA and Nose Appears Normal
Respiratory: Rales, Rhonchi and Non Labored Respirations
Cardiac: Regular Rhythm and S1/S2
Breast: Deferred by me
GI: Other (Colostomy bag, midline incision clean)
Musculoskeletal: No Clubbing and No Cyanosis
Skin: Warm
Neuro: Sedated
Psych: Other (Sedated)
[2025-06-22 09:50] LABS: APTT 58.4 Sec (23.4-35.0)
[2025-06-22 10:18] LABS: Glucose - Point of Care 152 mg/dl (70-99)
[2025-06-22] MEDS: SUBLIMAZE 50 MCG IV ×2 (10:48→17:23)
--- NOTE | 2025-06-22 10:52 | PTCARENOTE ---
Sedation weaned for SAT. Patient nodding head appropriately and following commands. Patient tolerated decreased sedation for about 30 minutes. Vent alarming. Tachypneic, rate in the mid 30's. Pulse ox down to 88%. HR low 100's. Fentanyl bolus
administered and Propofol gtt increased.
[2025-06-22 11:40] LABS: Glycohemoglobin (HgbA1c) 7.8 % (4.0-5.6)
[2025-06-22 12:16] LABS: Glucose - Point of Care 146 mg/dl (70-99)
--- NOTE | 2025-06-22 12:45 | PTCARENOTE ---
Systems reviewed. Patient resting comfortably. CPOT-0. NSR with pvcs on tele. PEEP weaned to 8 by RT. Lung sounds more diminished from prior assessment. Trickle feeds initiated. No other changes.
[2025-06-22] MEDS: NOVOLIN R INSULIN INFUSION 100 IV (13:05)
--- NOTE | 2025-06-22 14:19 | W.PN.ID1 ---
Date of Service
Date of Service: June 22, 2025
Today's Communication
Continue meropenem.
DC Vancomycin
Assessment / Plan
# Purulent peritonitis
# Colonic inertia with megacolon; status post ex lap, decompression, colostomy, stool leakage into the abdomen requiring washout 06/08/2025
# s/p Septic shock; continues on low dose pressor
# PNA with Pseudomonas
# Fever - ? due to Precedex. Overall temp curve improved since off Precedex.
# Leukocytosis resolved
# VDRF
- 06/08/25 Exploratory laparotomy, lysis of adhesions, sigmoidectomy, decompression of right colon, abdominal washout, creation of end descending colostomy, umbilical hernia repair
- No OR cx
- Blood cultures pending; neg
- 06/15 s/p bronch with airway clearance; cx Pseudomonas
- 06/[address] a/p: limited study but no obvious abscess; + free fluid in abdomen
- 06/19 Colorectal opened midline abd distal incision. cx cx Pseudomonas
- 06/20 aspiration/drainage of right abdominal collections; serous fluid. cultures neg to date
- completed 10 empiric micafungin (d#10).
- Discontinue Vancomycin IV (d#6).
- s/p Zosyn(8d) -> continue meropenem (d#5).
- Pt remains critically ill; on vent
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
HFrEF
HTN
DM
Afib
HLD
Colonic Inertia / Dysmotility
Chronic opioid dependence
Advanced bilateral lower extremity venous insufficiency
Morbid obesity (BMI~43)
Chief Complaint
-: Clinical Sepsis and Other (Purulent peritonitis)
Vital Signs / Physical Exam
Vital Signs
Vital Signs
Temp Pulse Resp BP Pulse Ox
99.6 F 77 16 119/64 97
06/22/25 11:28 06/22/25 13:00 06/22/25 13:00 06/22/25 13:00 06/22/25 13:00
Physical Exam
Constitutional: Acutely Ill
Cardiovascular: Regular Rate and S1/S2
Pulmonary: Rhonchi
Gastrointestinal: Soft, Non Tender, Non Distended and Other (colostomy loose brown stool. R abd CHRISTINE drain x 2 with serous and serosanguinous output.)
Extremities: Edema and Venous Insufficiency
Objective Data
Lab Data
Lab Results
06/22/25 03:20
06/22/25 03:20
PT 17.4 Sec (11.4-14.6) H 06/09/25 00:01
INR 1.40 06/09/25 00:01
APTT 58.4 Sec (23.4-35.0) H 06/22/25 09:19
Estimated Creat Clear > 125 ml/min 06/22/25 03:20
Lactic Acid 0.9 mmol/L (0.7-2.0) 06/09/25 00:01
Total Bilirubin 0.4 mg/dl (0.2-1.3) 06/22/25 03:20
AST 50 U/L (17-59) 06/22/25 03:20
ALT 21 U/L (0-50) 06/22/25 03:20
Alkaline Phosphatase 113 U/L (38-126) 06/22/25 03:20
C-Reactive Protein > 270.00 mg/L (0.0-10.00) H 06/11/25 03:22
Most recent labs reviewed.
Micro Results:
06/20/25 16:38 Body Fluid Culture - Preliminary
Peritoneal Fluid No Growth After 18-24 Hours
Gram Stain - Preliminary
06/20/25 16:34 Body Fluid Culture - Preliminary
Peritoneal Fluid No Growth After 18-24 Hours
Gram Stain - Preliminary
06/20/25 11:01 Respiratory Culture - Preliminary
Bronch Right Lower Lobe Pseudomonas species
Gram Stain - Preliminary
06/19/25 09:59 Anaerobic Culture - Preliminary
Abdomen Culture pending. Anaerobic cultures are examined after 3
days incubation. Additional information to follow.
06/15/25 10:08 Fungal Culture - Preliminary
Bronch Left Lower Lobe Evelyn albicans
06/19/25 09:59 Wound Culture - Preliminary
Abdomen Pseudomonas aeruginosa
Gram Stain - Preliminary
06/20/25 11:01 Fungal Culture - Pending
Bronch Right Lower Lobe
06/20/25 11:01 Acid Fast Bacilli Smear - Pending
Bronch Right Lower Lobe Acid Fast Bacilli Culture - Pending
06/17/25 13:11 MRSA Screen - Final
Nose No Methicillin Resistant Staphylococcus aureus isolated.
06/13/25 12:07 Blood Culture - Final
Blood/Venous No Growth - Final Report
06/13/25 12:07 Blood Culture - Final
Blood/Venous No Growth - Final Report
06/15/25 10:08 Acid Fast Bacilli Smear - Preliminary
Bronch Left Lower Lobe Acid Fast Bacilli Culture - Preliminary
06/15/25 10:08 Respiratory Culture - Final
Bronch Left Lower Lobe Pseudomonas aeruginosa
Gram Stain - Final
06/14/25 11:22 Respiratory Culture - Final
Tracheal Aspirate Pseudomonas aeruginosa
Gram Stain - Final
06/11/25 09:27 Blood Culture - Final
Blood/Venous No Growth - Final Report
06/11/25 09:59 Blood Culture - Final
Blood/Venous No Growth - Final Report
06/06/25 07:57 MRSA Screen - Final
Nose No Methicillin Resistant Staphylococcus aureus isolated.
Imaging:
06/18/25 CT c/a/p: Suspected moderate volume mildly complex presumed free fluid in the abdomen, overall increased in volume in comparison to recent prior study, most prominently located in the right subhepatic region, right subdiaphragmatic region
and likely left abdomen/pelvis.
06/16/25 CXR: There is moderate airspace disease in right lower lung field concerning for pneumonia. There is obscuration of the left hemidiaphragm suggesting left lower lobe pneumonia
06/15/25 CXR: No pneumothorax status post bronchoscopy. Progressive homogeneous increased retrocardiac opacity. Suspect mild left perihilar and right infrahilar opacity which could represent atelectasis or pneumonia.
06/13/25 CT a/p: Very limited study. Small volume fluid in the abdomen, particularly in the left abdomen mildly complex. As this fluid is incompletely included, it cannot be determined whether this totally represents likely free fluid or combination
of free fluid and abnormal focal fluid collection. Additional small abnormal focal fluid collections cannot be excluded on the basis of this markedly limited study. Apparent recent prior partial sigmoidectomy with large volume stool seen in the
residual sigmoid colon and rectum.
06/10 CXR: Stable CHF and bibasilar atelectasis and/or pneumonia.
06/08/25 CXR: Diffuse marked colonic dilation. Measurement of caliber of the upper colon is slightly greater then obstruction series of June 07, 2025. Multiple air-fluid levels compatible with stasis. Moderate amount of stool within the inferior
aspect of the right colon as well as within the rectum. No gross evidence for free intraperitoneal air.
06/05/25 CT a/p: Significant gaseous distention of a large portion of the colon. This contributes to limitation of this examination, as the patient cannot be fully included on the [id number] of the CT scanner. If there can be some distal colonic
decompression, repeat scan could be considered, when hopefully the patient could be entirely included on the [id number] of the exam. No gross evidence for free intraperitoneal air. Patchy parenchymal opacity within the visualized lower lung, most
likely atelectasis. Pneumonia is a differential consideration, felt to be less likely based on morphologic appearance.
[2025-06-22 14:26] LABS: Glucose - Point of Care 144 mg/dl (70-99)
--- NOTE | 2025-06-22 15:52 | WOUNDNOTE ---
[facility] RN note: Patient intubated on Bariatric Total care sport bed. Skin on heels intact. Patient in L semi side lying position. Visit for colostomy appliance change. Small liquid brown fluid in pouch. Peristomal blister and skin tear newly healed.
Stoma pink and budded. Colostomy appliance changed using [place] wafer # [id number], Almas seal and Desiree pouch # [id number]. Nursing can assist with routine appliance changes. Next appliance change due end of week. Assisted LAWRENCE Veliz with Le skin
care. L lateral calf with dry partial thickness scab, no drainage. R dorsal foot small ecchymotic area fading. Silicone border foam maintained on R dorsal foot. L calf dressing changed. Aquaphor applied by LAWRENCE Veliz. Knee high Tubigrip reapplied.
Heels off bed with pillow with air chair cushion on top under each LE. Will follow as needed.
--- NOTE | 2025-06-22 15:53 | PTCARENOTE ---
Systems reviewed. No major changes in assessment. Core temp 102. Tylenol administered via tube. Wound care completed as ordered.
--- NOTE | 2025-06-22 16:35 | CM ---
IV/Meropenem, pressors weaned, Vent weaning, tentative trach later in week. Discharge POC: TBD.
[2025-06-22 16:37] LABS: APTT 77.1 Sec (23.4-35.0)
[2025-06-22 16:56] LABS: Glucose - Point of Care 144 mg/dl (70-99)
[2025-06-22 18:14] LABS: Glucose - Point of Care 139 mg/dl (70-99)
--- NOTE | 2025-06-22 20:00 | PTCARENOTE ---
Pt tolerating vent settings satting at 95% pulse ox. Pt does continue to have large amounts of clear/white thick secretions. Pt opens eyes spontaneously and appears to be alert. Pt can follow commands. Pt can move all 4 extremities.
[2025-06-22] MEDS: Parenteral Nutrition, Central 1400 IV (20:05)
[2025-06-22 20:13] LABS: Glucose - Point of Care 150 mg/dl (70-99)
[2025-06-22] MEDS: SEROQUEL 100 MG TUBE (21:50)
[2025-06-22] MEDS: LIPITOR 40 MG TUBE (21:50)
[2025-06-22] MEDS: PACERONE 200 MG TUBE (21:50)
[2025-06-22 22:12] LABS: Glucose - Point of Care 126 mg/dl (70-99)
[2025-06-22 22:58] LABS: APTT 152.3 Sec (23.4-35.0)
[2025-06-23] VITALS (27 sets, daily range): BP systolic 101–136; BP diastolic 55–111; BMI 40.8
[2025-06-23 00:11] LABS: Glucose - Point of Care 130 mg/dl (70-99)
[2025-06-23] MEDS: STERILE WATER FOR INJECTION 10 ML IV ×4 (00:21→18:09)
[2025-06-23] MEDS: MERREM 500 MG IV ×4 (00:21→18:09)
[2025-06-23] MEDS: TYLENOL ORAL SOLUTION 650 MG TUBE ×4 (00:33→22:23)
--- NOTE | 2025-06-23 01:00 | PTCARENOTE ---
Tylenol administered via OG tube for a fever of 100.5
[2025-06-23] MEDS: DIPRIVAN 100 IV ×5 (02:12→20:46)
[2025-06-23 02:13] LABS: Glucose - Point of Care 130 mg/dl (70-99)
[2025-06-23] MEDS: HEPARIN 25000 UNITS/250 ML IV ×3 (03:44→18:34)
[2025-06-23] MEDS: SUBLIMAZE 100 IV ×2 (03:45→21:42)
[2025-06-23] MEDS: NOVOLIN R INSULIN INFUSION 100 IV ×2 (03:46→21:29)
[2025-06-23 04:10] LABS: Glucose - Point of Care 139 mg/dl (70-99)
--- NOTE | 2025-06-23 05:00 | PTCARENOTE ---
Upon reassessment pt resting comfortably. Pt continues to tolerate vent settings satting at 95% pulse ox. Core temp upon reassessment was 99.9.
[2025-06-23 05:09] LABS: Hematocrit 25.7 % (39.0-52.0); Hemoglobin 7.8 g/dL (13.0-18.0); Mean Corp Hgb Conc. 30.4 g/dL (33.0-37.0); Mean Corpuscular Volume 84.3 fL (80.0-94.0); Platelet Count 253 10^3/uL (130-400); Red Cell Dist. Width 15.2 % (11.5-14.5)
[2025-06-23 06:11] LABS: Glucose - Point of Care 134 mg/dl (70-99)
[2025-06-23 06:20] LABS: Blood Urea Nitrogen 27 mg/dl (9-20); Calcium 8.1 mg/dl (8.4-10.2); Carbon Dioxide 33 mmol/L (22-30); Chloride 102 mmol/L (98-107); Estimated Creatinine Clearance > 125 ml/min; Glucose 127 mg/dl (70-99); Potassium 4.2 mmol/L (3.5-5.1); Sodium 138 mmol/L (135-145); eGFR > 60.00
[2025-06-23 06:36] LABS: APTT 53.2 Sec (23.4-35.0)
[2025-06-23 07:14] LABS: Glucose - Point of Care 141 mg/dl (70-99)
[2025-06-23] MEDS: MUCOMYST 10% 2 ML INH ×3 (07:20→19:45)
[2025-06-23] MEDS: VENTOLIN NEBULES 2.5 MG INH ×3 (07:20→19:44)
--- NOTE | 2025-06-23 07:39 | W.PN.INTV ---
Today's Communication / Plan
Recommendations
Continue with daily sedation vacation
Maintain active type and screen, hold on transfusion for now
Continue with tube feeds, trickle
ABG and chest x-ray in a.m. 06/24
Antibiotics per ID, follow fevers
Assessment
-
Assessment: 64-year-old male with a past medical history of cardiomyopathy, hypertension, DM type II, history of chronic opioid use due to chronic arthritis now on buprenorphine, history of ERASMO, venous insufficiency and chronic back pain who
presented with shortness of breath, abdominal distention. Found to have severe colonic distention. Initially treated with neostigmine, attempted sigmoidoscopy without attempt. Underwent exploratory laparotomy 06/08/2025-developed shock requiring
vasopressors and remained on mechanical ventilation. We were consulted on 06/09/2025.
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
OxyContin/oxycodone,systolic cardiomyopathy.
06/22/2025 Overview: Patient currently intubated, ASV 120%. Current infusions Levophed weaned off, heparin, TPN, propofol and fentanyl. Drainage from CHRISTINE drain as well as from ostomy bag. Additional peritoneal drains draining serosanguineous
fluid. Significant secretions per ET tube
Assessment and plan
#1. Acute hypoxemic respiratory failure post laparotomy complicated by VAP of LLL, intubated 06/08
- Initially due to abdominal distention requiring intubation, mechanical ventilation, subsequently LLL
- Left lower lobe dense consolidation, copious ET tube secretions noted, improved after Bronchoscopic lavage, again worse 06/19
- Continue broad-spectrum antibiotics, s/p bronchoscopy and BAL 06/16 with extensive suctioning of thick mucoid secretions in LLL. BAL growing Pseudomonas/Yeast
- Repeat bronchoscopy 06/20 with extensive clearing of thick secretions from both lower lobes. BAL right lower lobe pending
- Tolerating ASV at 120%, PEEP of 8 and FiO2 40%. No further changes at this time pending tracheotomy
- Updated at length and reviewed with ENT. ENT consult placed for possible tracheostomy later this week. is agreeable
- Continue Seroquel 100 mg nightly, add 50 mg during daytime. EKG in a.m.
- ABG in a.m. 06/24
#1a. Difficulty ventilator weaning.
- Patient continues to fail attempt at weaning.
- Significant agitation and desaturations with minimal decrease in sedation. Patient was weaned off propofol and trialed on Precedex and fentanyl and after some time again started getting agitated and started desaturating. Propofol resumed on
06/19.
- Body habitus, excessive secretions, severe pneumonia as well as intra-abdominal processes are contributing to failure to liberate from mechanical ventilation
- Plan for tracheostomy later this week, possibly
- Continue nightly Seroquel, add daytime dosing and remove propofol and fentanyl to light sedation protocol.
- Continue with sedation vacation on daily basis
#1b. Endotracheal cuff leak 06/19.
- Significant air leak with loss of tidal volume despite repeated attempts at cuff inflation
- ET tube was exchanged over bougie at bedside, 8.0 ET tube placed without complications.
- Cuff leak resolved post ET tube exchange. Minute ventilation adequate at around 14 to 15 L/min
#2. Septic shock suspected-source likely intraperitoneal and LLL pneumonia
- Continues to need pressor support, norepinephrine weaned off
- Continue broad-spectrum antibiotics and antifungal per infectious disease service, micafungin. Zosyn switched to meropenem per ID service, also on vancomycin
- BAL culture showing Pseudomonas
- 06/18, CT chest abdomen pelvis pursued, fluid noted in the abdomen.
- Purulent discharge from inferior margin of surgical site, bedside drainage on 06/19, sent for cultures. Growing Pseudomonas
- 06/20, IR guided peritoneal drains x 2 placed for intra-abdominal collections noted on imaging, fluid studies pending serosanguineous fluid noted
- persistent fevers to 102 noted 06/22. Follow
#3. Pseudoobstruction with megacolon, failed conservative management, s/p ex lap
- S/p ex lap, sigmoidectomy and end colostomy, iatrogenic spillage of stool, peritonitis, umbilical hernia repair, 06/08/2025
- Continue IV meropenem, vancomycin and micafungin
- Small-volume stool output noted in the ostomy bag
- N.p.o. currently, TPN infusing. Plans for trickle feeds noted per colorectal surgery to start 06/22
- Tolerating trickle feeds started 06/22
#4. Acute on chronic heart failure with reduced ejection fraction, LVEF 35%, Stage I diastolic dysfunction
- Patient has been diuresing well with intermittent Lasix
- Weight is down 13 kg since admission
#5. Paroxysmal atrial flutter.
- Heparin infusion, tolerating well without any bleeding
- History of cardioversion in January 2025
- Has been on amiodarone
- LFTs normal as of 06/22
#6. Pulmonary hypertension, estimated pulmonary artery systolic pressure 50-55
- Primarily group II PH related to underlying congestive heart failure
- Continue to optimize intravascular volume, keep saturations above 90%, no indication for vasodilator therapy
#7. DM type II with Hyperglycemia
- Continue glycemic protocol as indicated
#8. Prolonged QTc
- Improved after replacing potassium and magnesium
- Tolerating Seroquel well, added 50 mg daytime dose in addition to nightly 100, EKG being followed
Other medical diagnoses:
#Morbid obesity
#Venous deficiency
#History of ERASMO
#Chronic pain management due to arthritis currently on buprenorphine in an effort to wean off of OxyContin/oxycodone
-
DVT prophylaxis: -heparin infusion
GI prophylaxis, pantoprazole
-
Prognosis is guarded
-
Critical care statement: A total of 32 minutes of critical care time was provided for this patient today. This includes management of unstable vital signs, evaluation of the patient at bedside, reviewing the patient's pertinent medical records
including ventilator settings, arterial blood gases, radiographs, microbiology, laboratory evaluations and discussion with primary team, critical care nursing, and respiratory therapy.
Updated at length by phone on 06/22. Agreeable for tracheostomy evaluation and placement. Patient has requested Dr. Diaz and associates

Data reviewed:
Chest x-ray 06/08/2025: Reviewed, ET tube in place. Left lower lobe airspace disease. Cardiomegaly
-
CT abdomen pelvis 06/05/2025:
The patient is significantly distended, and much of the abdominal and upper pelvic soft tissues extending anterior and to the left of the [id number], which limits evaluation, as it becomes difficult to confidently follow the loops of bowel.
There is distention of the rectum with air and stool, measuring 9.3 cm in diameter. There is marked distention of the sigmoid colon which extends into the right and central upper abdomen, with the sigmoid colon measuring up to 18 cm in diameter. The
sigmoid colon contains a moderate to large amount of stool, mainly inferiorly. There appears to be moderate distention of the rest of the visualized colon.
Small bowel loops are present, and do not appear to be significantly distended, similar appearance to prior examination.
Of note, the cecum cannot be confidently identified on the present examination
No gross evidence of free intraperitoneal air.
There is patchy parenchymal opacity within the visualized lower lungs, most likely atelectasis. A component of pneumonia is also possible, although felt to be less likely. There is no significant pleural effusion and no significant pericardial
effusion.
Coronary artery calcifications are present. Please correlate with symptoms of and risk factors for coronary artery disease, with further workup as clinically appropriate.
Of note, the stomach is not distended.
Subjective Dataa
Subjective Data
Date of Service:
Date of Service: June 23, 2025
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
Subjective:
Patient remains a critically ill, ventilator dependent. Secretions noted, slightly improved. Temperature 102 noted yesterday p.m. Off pressors. Tolerating trickle tube feeds
Objective Data
Data Reviewed
Vital Signs / I&O / Oxygen:
Vital Signs
Temp Pulse Resp BP Pulse Ox
99.9 F 74 22 121/66 95
06/23/25 04:48 06/23/25 07:25 06/23/25 07:25 06/23/25 07:00 06/23/25 07:25
Intake and Output
06/22/25 06/23/25 06/24/25
06:59 06:59 06:59
Intake Total 4426.1 / 4552.2 3710.9 / 3710.9
Output Total 4295 / 4445 3822 / 3822
Balance 131.1 / 107.2 -111.1 / -111.1
SaO2 [ASV] 95
SaO2 [A/C] 95
SaO2 95
Nasal Cannula flow liters per 3
minute
Physical Exam
General: Comfortable (Intermittent rapid shallow breathing), Other (Large neck) and Other (Right upper extremity PICC)
HEENT: Normocephalic and Anicteric
Cardiovascular: S1-S2, Regular Rhythm, Murmur (n) and Peripheral Edema (1+, lower extremity stockings in place)
Respiratory: Wheeze (n), Crackles (Mild bibasilar), Rhonchi (Few scattered), Non-Labored Respirations and ET Tube (Secretions much less and not as purulent appearing )
GI: Soft, Distended (Morbidly obese), Other (Colostomy with stool output. Multiple CHRISTINE drains with serous drainage, incision intact) and Other (NG tube in place minimal drainage)
Neurology: Other (Gets agitated when lowering sedation with desaturation.) and Other (Patient does spontaneously open eyes and move extremities during sedation vacation)
Skin: Warm and Other ( lower extremity venous stasis, both extremities are wrapped.)
Labs/Micro/Reports
Lab Data
06/23/25 05:00
06/23/25 05:00
Laboratory Results
06/22/25 06/22/25 06/22/25
16: 22:33
APTT 58.4 H 77.1 H 152.3 H*
06/23/25
06:07
APTT 53.2 H
Microbiology
06/20/25 11:01 Bronch Right Lower Lobe Acid Fast Bacilli Smear - Preliminary
06/20/25 11:01 Bronch Right Lower Lobe Acid Fast Bacilli Culture - Preliminary
06/20/25 11:01 Bronch Right Lower Lobe Fungal Culture - Preliminary
Culture in progress.
Positive cultures are reported as soon as detected.
Final report to follow in four to five weeks.
06/20/25 16:38 Peritoneal Fluid Body Fluid Culture - Preliminary
No Growth After 18-24 Hours
06/20/25 16:38 Peritoneal Fluid Gram Stain - Preliminary
06/20/25 16:34 Peritoneal Fluid Body Fluid Culture - Preliminary
No Growth After 18-24 Hours
06/20/25 16:34 Peritoneal Fluid Gram Stain - Preliminary
06/20/25 11:01 Bronch Right Lower Lobe Respiratory Culture - Preliminary
Pseudomonas species
06/20/25 11:01 Bronch Right Lower Lobe Gram Stain - Preliminary
06/19/25 09:59 Abdomen Anaerobic Culture - Preliminary
Culture pending. Anaerobic cultures are examined after 3
days incubation. Additional information to follow.
06/15/25 10:08 Bronch Left Lower Lobe Fungal Culture - Preliminary
Evelyn albicans
06/19/25 09:59 Abdomen Wound Culture - Preliminary
Pseudomonas aeruginosa
06/19/25 09:59 Abdomen Gram Stain - Preliminary
[2025-06-23 08:19] LABS: Glucose - Point of Care 155 mg/dl (70-99)
[2025-06-23] MEDS: NSS (PRESERVATIVE FREE) 10 ML IV (08:39)
[2025-06-23] MEDS: SEROQUEL 50 MG TUBE (08:39)
[2025-06-23] MEDS: SUBUTEX 4 MG SL (08:39)
[2025-06-23] MEDS: PROTONIX IV 40 MG IV (08:39)
[2025-06-23] MEDS: RELISTOR 12 MG SC (08:39)
[2025-06-23] MEDS: DESENEX/MITRAZOL/ZEASORB 1 APPLIC TOPICAL ×2 (08:40→20:44)
[2025-06-23] MEDS: HYDROPHOR 1 APPLIC TOPICAL (08:41)
--- NOTE | 2025-06-23 08:54 | PN.DE.MGMTRT ---
Insulin Management
- -
06/23/2025: Diabetes Management Follow up
Patient admitted 06/05 with c/o difficulty breathing. Diabetes management consult 06/15. PMH 5 weeks of constipation with abdominal distention, HTN, A-Fib, CHF Prior to admission was taking Lantus 24 units daily with NovoLog 20 units AC and Farxiga 5
mg daily. A1C on admission 7.1%, cr today .5, eGFR > 60.
Patient is currently intubated and sedated. Information obtained from chart and patient nurse and pharmacist. Patient s/p OR 06/08 for lysis of adhesions, sigmoidectomy, with end descending colostomy.
Remains on critical care glycemic protocol which was started 06/12, Glucose range 127 to 136. Patient has required 5 to 6 units of insulin per hour.
Receiving TPN, trickle feeds started this morning at 10cc/hr. Will closely monitor glucose trend and add Q 6 hour NovoLog sq if insulin requirements increase.
Discussed with nurse. Will cont to follow.
Diabetes History
- -
Type of Diabetes: 2 requiring insulin
Pre-Admission Diabetes Regimen
06/23/25
05:00
Creatinine 0.5 L
Lab Results
Hemoglobin A1c 7.8 % (4.0-5.6) H 06/22/25 03:20
Insulin Pump Settings
IP Diabetes Regimen
06/22/25 06/22/25 06/22/25
10:06 12:05 14:13
Glucose
POC Glucose 152 H 146 H 144 H
06/22/25 06/22/25 06/22/25
16:45 18:03 20:01
Glucose
POC Glucose 144 H 139 H 150 H
06/22/25 06/23/25 06/23/25
22:01 00:00 02:02
Glucose
POC Glucose 126 H 130 H 130 H
06/23/25 06/23/25 06/23/25
03:58 05:00 06:00
Glucose 127 H
POC Glucose 139 H 134 H
06/23/25 06/23/25
07:02 08:05
Glucose
POC Glucose 141 H 155 H
Patient Education
[2025-06-23 09:10] LABS: Glucose - Point of Care 170 mg/dl (70-99)
--- NOTE | 2025-06-23 09:48 | W.PN.CRS1 ---
Today's Communication / Plan
-
continue current care
TPN/Trickle TFs
Assessment/Plan
-
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
obstipation associated with megacolon. WBC 11.[address] showing gaseous distention of the colon, diameter of the sigmoid up to 18 cm in diameter. He received a dose of neostigmine, which failed. He underwent attempt at decompressive sigmoidoscopy,
but encountered too much stool. Due to refractory nature of his issue, we proceeded with surgery.
POD 14 exlap, sigmoidectomy, end-colostomy; iatrogenic spillage of stool - controlled and abdomen washed out, no colonic ischemia or perforation
S/p bronch 06/15 for right-sided mucous plugging
S/p bronch 06/20 for mucus plugging, repeat bronch same day for hemoptysis
s/p IR drains x2 on the right for fluid cllxn, Cx -ngtd
Tmax 102.0, VSS, off pressors
WBC 10.5 from 12.6, Hb 7.9 from 8.3, CR 0.5, NGT - 300mL for last 3 hrs, gastric quality
�Respiratory failure, c/b mucous plugging, pneumonia
-Appreciate plywood layup line core layer; likely trach on
-Cont chest PT, pulmonary toilet
� Continue pain control and sedation
�Continue hep drip; okay for therapeutic Lovenox from surgical standpoint
� Continue TPN and trickle feeds
-nutrition recs appreciated but given hyperglycemia will not be increasing dextrose and given high dose of propofol will continue TPN w/o lipids
� Appreciate ID, on Merrem, david
�Septic shock likely due to pneumonia
-Lower portion of abdominal wound open; no evidence of infection; WTD packing into wound twice a day
� Continue Mason, strict I&O's
�Appreciate plywood layup line core layer and primary
Subjective Data
Procedure
06/08/25- Exploratory laparotomy, lysis of adhesions, sigmoidectomy, decompression of right colon, abdominal washout, creation of end descending colostomy, umbilical hernia repair
Subjective Data
Date of Service: June 23, 2025
Patient is intubated and sedated.
Objective Data
-
Vital Signs
Temp Pulse Resp BP Pulse Ox
99.9 F 74 22 121/66 95
06/23/25 04:48 06/23/25 07:25 06/23/25 07:25 06/23/25 07:00 06/23/25 07:25
Intake & Output
06/22/25 06/23/25 06/24/25
06:59 06:59 06:59
Intake Total 4426.1 / 4552.2 3710.9 / 3710.9
Output Total 4295 / 4445 3822 / 3822
Balance 131.1 / 107.2 -111.1 / -111.1
Intake:
Oral fluids 0 / 0
IV fluids (Total) 1499.1 / 1557.2 1423.9 / 1423.9
Fentanyl gtt 85.0 / 87.5 92.5 / 92.5
Insulin 148 / 154 149 / 149
Levophed gtt 78.8 / 78.8
Propofol 467.3 / 484.9 422.4 / 422.4
heparin 720 / 752 760 / 760
IV piggybacks 1175 / 1175
TPN/PPN 1632 / 1700 1522 / 1522
Tube feeding 190 / 190
Feeding tube flush amount 475 / 475
Amount instilled into Drain (
Total)
Right Middle Abdomen Milton-
Vo B Placed in IR
Right Upper Abdomen Milton-
Vo A Placed in IR
Amount instilled into GI Tube ( 100 / 100 80 / 80
Total)
Ashley Sump 100 / 100 80 / 80
Output:
Drain Output (Total) 135 / 135 61 / 61
Right Lower Abdomen Milton- 35 / 35 20 / 20
Vo
Right Middle Abdomen Milton- 60 / 60 36 / 36
Vo B Placed in IR
Right Upper Abdomen Milton- 40 / 40 5 / 5
Vo A Placed in IR
Gastrointestinal tube output ( 700 / 700
Total)
Ashley Sump 700 / 700
Urine, Mason 3460 / 3610 3761 / 3761
Lab Results
06/23/25 05:00
06/23/25 05:00
Physical Exam
-
General: Other (intubated and sedated)
Abdomen: Soft, Non Distended and Other (lower midline wound with some fascial dehiscence, no bleeding noted, fibrinous material noted, mild segovia purulent drainage. 2 CHRISTINE drains noted - serosanguinous )
--- NOTE | 2025-06-23 09:54 | W.PN.ID1 ---
Date of Service
Date of Service: June 23, 2025
Today's Communication
Continue meropenem.
Assessment / Plan
# Purulent peritonitis
# Colonic inertia with megacolon; status post ex lap, decompression, colostomy, stool leakage into the abdomen requiring washout 06/08/2025
# s/p Septic shock; continues on low dose pressor
# PNA with Pseudomonas
# Fever - ? due to Precedex. Overall temp curve improved since off Precedex.
# Leukocytosis overall improved
# VDRF, unable to wean
- 06/08/25 Exploratory laparotomy, lysis of adhesions, sigmoidectomy, decompression of right colon, abdominal washout, creation of end descending colostomy, umbilical hernia repair
- No OR cx
- Blood cultures pending; neg
- 06/15 s/p bronch with airway clearance; cx Pseudomonas
- 06/[address] a/p: limited study but no obvious abscess; + free fluid in abdomen
- 06/19 Colorectal opened midline abd distal incision. cx cx Pseudomonas
- 06/20 aspiration/drainage of right abdominal collections; serous fluid. cultures neg to date
- completed 10 empiric micafungin
- s/p Vancomycin IV x 6d
- s/p Zosyn(8d) -> continue meropenem (d#6).
- trend temps/wbc
- Pt remains critically ill; on vent
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
HFrEF
HTN
DM
Afib
HLD
Colonic Inertia / Dysmotility
Chronic opioid dependence
Advanced bilateral lower extremity venous insufficiency
Morbid obesity (BMI~43)
Chief Complaint
-: Clinical Sepsis and Other (Purulent peritonitis)
Subjective / Review of Systems
on vent
Vital Signs / Physical Exam
Vital Signs
Vital Signs
Temp Pulse Resp BP Pulse Ox
99.9 F 74 22 121/66 95
06/23/25 04:48 06/23/25 07:25 06/23/25 07:25 06/23/25 07:00 06/23/25 07:25
Selected Entries
06/22/25
15:35
Temp 102 F H
Physical Exam
Constitutional: Acutely Ill
Cardiovascular: Regular Rate and S1/S2
Pulmonary: Rhonchi
Gastrointestinal: Soft, Non Tender, Non Distended and Other (colostomy loose brown stool. R abd CHRISTINE drain x 2 with serous and serosanguinous output.)
Extremities: Venous Insufficiency; Negative Edema
Objective Data
Lab Data
Lab Results
06/23/25 05:00
06/23/25 05:00
PT 17.4 Sec (11.4-14.6) H 06/09/25 00:01
INR 1.40 06/09/25 00:01
APTT 53.2 Sec (23.4-35.0) H 06/23/25 06:07
Estimated Creat Clear > 125 ml/min 06/23/25 05:00
Lactic Acid 0.9 mmol/L (0.7-2.0) 06/09/25 00:01
Total Bilirubin 0.4 mg/dl (0.2-1.3) 06/22/25 03:20
AST 50 U/L (17-59) 06/22/25 03:20
ALT 21 U/L (0-50) 06/22/25 03:20
Alkaline Phosphatase 113 U/L (38-126) 06/22/25 03:20
C-Reactive Protein > 270.00 mg/L (0.0-10.00) H 06/11/25 03:22
Most recent labs reviewed.
Micro Results:
06/20/25 16:38 Body Fluid Culture - Preliminary
Peritoneal Fluid No Growth After 48 Hours
Gram Stain - Preliminary
06/20/25 11:01 Respiratory Culture - Final
Bronch Right Lower Lobe Pseudomonas aeruginosa
Gram Stain - Final
06/20/25 16:34 Body Fluid Culture - Preliminary
Peritoneal Fluid No Growth After 48 Hours
Gram Stain - Preliminary
06/19/25 09:59 Anaerobic Culture - Preliminary
Abdomen Culture pending. Anaerobic cultures are examined after 3
days incubation. Additional information to follow.
06/20/25 11:01 Acid Fast Bacilli Smear - Preliminary
Bronch Right Lower Lobe Acid Fast Bacilli Culture - Preliminary
06/20/25 11:01 Fungal Culture - Preliminary
Bronch Right Lower Lobe Culture in progress.
Positive cultures are reported as soon as detected.
Final report to follow in four to five weeks.
06/15/25 10:08 Fungal Culture - Preliminary
Bronch Left Lower Lobe Evelyn albicans
06/19/25 09:59 Wound Culture - Preliminary
Abdomen Pseudomonas aeruginosa
Gram Stain - Preliminary
06/17/25 13:11 MRSA Screen - Final
Nose No Methicillin Resistant Staphylococcus aureus isolated.
06/13/25 12:07 Blood Culture - Final
Blood/Venous No Growth - Final Report
06/13/25 12:07 Blood Culture - Final
Blood/Venous No Growth - Final Report
06/15/25 10:08 Acid Fast Bacilli Smear - Preliminary
Bronch Left Lower Lobe Acid Fast Bacilli Culture - Preliminary
06/15/25 10:08 Respiratory Culture - Final
Bronch Left Lower Lobe Pseudomonas aeruginosa
Gram Stain - Final
06/14/25 11:22 Respiratory Culture - Final
Tracheal Aspirate Pseudomonas aeruginosa
Gram Stain - Final
06/11/25 09:27 Blood Culture - Final
Blood/Venous No Growth - Final Report
06/11/25 09:59 Blood Culture - Final
Blood/Venous No Growth - Final Report
06/06/25 07:57 MRSA Screen - Final
Nose No Methicillin Resistant Staphylococcus aureus isolated.
Imaging:
06/18/25 CT c/a/p: Suspected moderate volume mildly complex presumed free fluid in the abdomen, overall increased in volume in comparison to recent prior study, most prominently located in the right subhepatic region, right subdiaphragmatic region
and likely left abdomen/pelvis.
06/16/25 CXR: There is moderate airspace disease in right lower lung field concerning for pneumonia. There is obscuration of the left hemidiaphragm suggesting left lower lobe pneumonia
06/15/25 CXR: No pneumothorax status post bronchoscopy. Progressive homogeneous increased retrocardiac opacity. Suspect mild left perihilar and right infrahilar opacity which could represent atelectasis or pneumonia.
06/13/25 CT a/p: Very limited study. Small volume fluid in the abdomen, particularly in the left abdomen mildly complex. As this fluid is incompletely included, it cannot be determined whether this totally represents likely free fluid or combination
of free fluid and abnormal focal fluid collection. Additional small abnormal focal fluid collections cannot be excluded on the basis of this markedly limited study. Apparent recent prior partial sigmoidectomy with large volume stool seen in the
residual sigmoid colon and rectum.
06/10 CXR: Stable CHF and bibasilar atelectasis and/or pneumonia.
06/08/25 CXR: Diffuse marked colonic dilation. Measurement of caliber of the upper colon is slightly greater then obstruction series of June 07, 2025. Multiple air-fluid levels compatible with stasis. Moderate amount of stool within the inferior
aspect of the right colon as well as within the rectum. No gross evidence for free intraperitoneal air.
06/05/25 CT a/p: Significant gaseous distention of a large portion of the colon. This contributes to limitation of this examination, as the patient cannot be fully included on the [id number] of the CT scanner. If there can be some distal colonic
decompression, repeat scan could be considered, when hopefully the patient could be entirely included on the [id number] of the exam. No gross evidence for free intraperitoneal air. Patchy parenchymal opacity within the visualized lower lung, most
likely atelectasis. Pneumonia is a differential consideration, felt to be less likely based on morphologic appearance.
[2025-06-23 10:29] LABS: Glucose - Point of Care 150 mg/dl (70-99)
[2025-06-23 11:11] LABS: Glucose - Point of Care 147 mg/dl (70-99)
--- NOTE | 2025-06-23 12:37 | W.PN.HOSP.TC ---
Today's Communication/Plan
-
Continue management in the ICU.
ENT consulted for tracheostomy.
Assessment / Plan
Assessment / Plan
Impression:
Mr. Knapp is a 64-year-old male with medical history of HFpEF, A-fib/flutter, IDDM, obesity, chronic pain with subsequent opioid dependence, and chronic constipation with colonic dysmotility who presented with shortness of breath, abdominal
bloating and discomfort, constipation. His last bowel movement was 2 weeks prior to arrival. He is having increasing difficulty breathing due to worsening abdominal distention. He has had multiple similar episodes since September 2024 and has
previously required decompression. He has been treated with enemas and neostigmine previously. Abdominal imaging showed significant colonic distention with air-filled loops of bowel. He also had patchy parenchymal opacities within the mid to
lower lungs. He was mildly hypoxic and has been started on antibiotics. He has remained afebrile with a mild leukocytosis of just over 12,000. He has been admitted for further evaluation and management.
Seen by GI, failed neostigmine, enema, status post nonsuccessful decompressive flexible sigmoidoscopy.
Surgery team consulted.
s/p Exploratory laparotomy, lysis of adhesions, sigmoidectomy, decompression of right colon, abdominal washout, creation of end descending colostomy, umbilical hernia repair on 06/08
admitted to ICU postoperatively, intubated.
Patient had fever,Infectious disease consult, started on zosyn.
Patient was still running fever, added micafungin.
CT chest: New right lower lobe consolidation with air bronchograms, atelectasis versus pneumonia, Possible small bilateral pleural effusions.
CT abdomen/pelvis shows: Small volume fluid in the abdomen, particularly in the left abdomen mildly complex. As this fluid is incompletely included, it cannot be determined whether this totally represents likely free fluid or combination of free
fluid and abnormal focal fluid collection. Additional small abnormal focal fluid collections cannot be excluded on the basis of this markedly limited study
Patient received Lasix.
Difficult extubation, discussion regarding trach
Currently intubated, surgery okay with trickle feeding.
Assessment/Plan:
Colonic dysmotility/ileus:
- Abdomen remained significantly distended despite multiple medical enemas and subsequent bowel movements
- Upgraded to IMU 06/07, pushed 4 mg neostigmine around 1:30 PM, no significant peristaltic response
- Ultimately required surgical intervention, brought to the OR 06/08 for ex lap with lysis of adhesions and sigmoidectomy with end descending colostomy, decompression of right colon, abdominal washout and umbilical hernia repair
- ICU postoperatively, intubated
- Colorectal surgery following, increased output from colostomy now with brown stool
- Lower fred removed from surgical incision with mucopurulent output, wound packed, cultures obtained, redressed
- IR placed 2 abdominal drains yesterday 06/20 with serosanguineous output, cultures pending
- Continue TPN, holding tube feeds
- Colorectal surgery okay with transitioning anticoagulation to therapeutic Lovenox as needed
- Surgery Okay with trickle feed
Septic shock, requiring pressors:
- This is likely a primary intra-abdominal infection, stool leakage into the abdomen requiring washout, also likely has concomitant pulmonary infection
- Tracheal aspirate from 06/14 growing pansensitive Pseudomonas
- ID following, continuing vancomycin and micafungin, Zosyn switched to meropenem
- Leukocytosis improving, fever curve improving
- Vasopressors as needed, currently on hold
- Precedex discontinued as it was useless and keeping him sedated, continuing sedation with propofol and fentanyl
Acute hypoxic respiratory failure (currently intubated in the ICU postoperatively)
- Continue mechanical ventilation, ETT replaced 06/19 by cloth shrinking machine operator helper
- Persistent copious thick secretions and left lower lobe volume loss
- Underwent bronchoscopy with BAL left lower lobe 06/15 by cloth shrinking machine operator helper, cultures growing Pseudomonas, repeat bronchoscopy with BAL today 06/20 with aspiration of copious secretions
- Continue antimicrobial coverage with micafungin, vancomycin, and meropenem
- Hypertonic nebulized saline 3 times a day with albuterol, aggressive chest PT
- Started Seroquel 50 mg in the morning and 100 mg at night, monitor QTc
- Patient was inadequately sedated with Precedex which has now been discontinued, restarted propofol and fentanyl drips
- Additional Lasix pushes as needed
- Weaning trials as tolerated
- Will need to decide with family whether or not to pursue tracheostomy in the next few days
paroxismal A-fib/flutter:
- Currently rate controlled, holding home metoprolol, continue home amiodarone 200 mg at night via OGT
- Holding home Xarelto, have been anticoagulating with IV heparin, colorectal surgery okay with transition to therapeutic Lovenox as needed
IDDM:
- Insulin drip.
HFrEF:
- Acute on chronic chronic
- Holding home metoprolol succinate 100 mg
- Lasix pushes as needed, holding spironolactone, monitor daily weights
- No need for afterload reduction due to hypotension
CODE STATUS: Full code
DVT prophylaxis: Heparin drip
Diet: TPN
Disposition: Continue management in the ICU.
ENT consulted for tracheostomy.
Total time spent on today's encounter was 74 minutes which included time spent in counseling the patient/family regarding diagnosis and treatment plan as listed above, goals of care, and symptom management. Case was discussed with nursing staff,
specialists, and care coordinators/case management. All labs and imaging personally reviewed by me. Remainder the time spent in detailed review of previous records, lab data, imaging, and other medical provider documentation.
Anticipated Discharge: > 48 hours
Subjective/Interval History
-
Date of Service: June 23, 2025
Patient remains intubated, ENT consulted for tracheostomy.
Objective Data
-
Labs:
Laboratory Results
06/23/25 06/23/25 06/23/25
05:00 06:07 12:45
WBC 11.2 H
Hgb 7.8 L
Hct 25.7 L
Plt Count 253
APTT 53.2 H Pending
Sodium 138
Potassium 4.2
Chloride 102
Carbon Dioxide 33 H
BUN 27 H
Creatinine 0.5 L
Glucose 127 H
Calcium 8.1 L
Vital Signs:
Vital Signs
Temp Pulse Resp BP Pulse Ox
101.1 F H 70 22 120/63 98
06/23/25 11:59 06/23/25 11:59 06/23/25 11:59 06/23/25 11:59 06/23/25 11:59
I&O
06/22/25 06/23/25 06/24/25
06:59 06:59 06:59
Intake Total 4426.1 / 4552.2 3710.9 / 3807.5 687.2 / 687.2
Output Total 4295 / 4445 3822 / 3972 1100 / 1100
Balance 131.1 / 107.2 -111.1 / -164.5 -412.8 / -412.8
Physical Exam
-
General: Intubated and Obese
HEENT: Normocephalic, Atraumatic, Moist Mucous Membranes, No Ptosis, PERRLA and Nose Appears Normal
Respiratory: Rales, Rhonchi and Non Labored Respirations
Cardiac: Regular Rhythm and S1/S2
Breast: Deferred by me
GI: Other (Colostomy bag, midline incision clean)
Musculoskeletal: No Clubbing and No Cyanosis
Skin: Warm
Neuro: Sedated (follow commands)
Psych: Other (Sedated)
--- NOTE | 2025-06-23 12:48 | W.PN.ENT ---
Today's Communication
-
Planning for tracheostomy
Impression / Plan
-
The patient is a 64 yoM with VDRF intubated x 15 days, now off pressors, but remains febrile and on heparin gtt. Will d/w ICU and family planning for tracheostomy.
Subjective Data
-
ENT consulted for trach placement in this intubated patient since 06/08. He remains intubated and sedated, off pressors on heparin drip.
Objective Data
-
Vital Signs
Temp Pulse Resp BP Pulse Ox
101.1 F H 70 22 120/63 98
06/23/25 11:59 06/23/25 11:59 06/23/25 11:59 06/23/25 11:59 06/23/25 11:59
Intake & Output
06/22/25 06/23/25 06/24/25
06:59 06:59 06:59
Intake:
Oral fluids 0 / 0
IV fluids (Total) 1499.1 / 1557.2 1423.9 / 1485.5 432.2 / 432.2
Fentanyl gtt 85.0 / 87.5 92.5 / 97.5 35 / 35
Insulin 148 / 154 149 / 154 35.0 / 35.0
Levophed gtt 78.8 / 78.8
Propofol 467.3 / 484.9 422.4 / 440.0 124.2 / 124.2
heparin 720 / 752 760 / 794 238 / 238
IV piggybacks 1175 / 1175
TPN/PPN 1632 / 1700 1522 / 1522
Tube feeding 190 / 200 70 / 70
Feeding tube flush amount 475 / 500 175 / 175
Amount instilled into Drain ( 20 20 20
Total)
Right Middle Abdomen [place]-
Vo B Placed in IR
Right Upper Abdomen [place]- 10 / 10 10 / 10
Vo A Placed in IR
Amount instilled into GI Tube ( 100 / 100 80 / 80
Total)
[place] Sump 100 / 100 80 / 80
Output:
Drain Output (Total) 135 / 135 61 / 61
Right Lower Abdomen [place]- 35 / 35 20 / 20
Vo
Right Middle Abdomen [place]- 60 / 60 36 / 36
Vo B Placed in IR
Right Upper Abdomen [place]- 40 / 40 5 / 5
Vo A Placed in IR
Gastrointestinal tube output ( 700 / 700
Total)
[place] Sump 700 / 700
Urine, Mason 3460 / 3610 3761 / 3911 1100 / 1100
Lab Results
06/23/25 05:00
06/23/25 05:00
PT 17.4 Sec (11.4-14.6) H 06/09/25 00:01
INR 1.40 06/09/25 00:01
APTT 53.2 Sec (23.4-35.0) H 06/23/25 06:07
Calcium 8.1 mg/dl (8.4-10.2) L 06/23/25 05:00
Phosphorus 2.6 mg/dl (2.5-4.5) 06/22/25 03:20
Magnesium 2.2 mg/dl (1.6-2.3) 06/22/25 03:20
Total Bilirubin 0.4 mg/dl (0.2-1.3) 06/22/25 03:20
Direct Bilirubin 0.4 mg/dl (0.0-0.4) 06/15/25 04:25
AST 50 U/L (17-59) 06/22/25 03:20
ALT 21 U/L (0-50) 06/22/25 03:20
Alkaline Phosphatase 113 U/L (38-126) 06/22/25 03:20
Triglycerides 108 mg/dl (10-149) 06/22/25 03:20
Lipase 37 U/L (23-300) 06/05/25 20:51
TSH 1.29 uIU/ml (0.47-4.68) 06/10/25 04:19
Urine Color Yellow 06/11/25 09:27
Urine Clarity Clear (Clear) 06/11/25 09:27
Urine pH 6.0 (5.0-9.0) 06/11/25 09:27
Ur Specific [place] 1.015 (<1.030) 06/11/25 09:27
Urine Ketones 3+ (Negative) A 06/11/25 09:27
Urine Occult Blood 3+ (Negative) A 06/11/25 09:27
Physical Exam
-
Sedated, intubated with #8ETT Vent PEEP 8, FiO2 40%
Short neck, palpable anatomy
Data Reviewed
-
Micro Results: Report Reviewed
[2025-06-23 13:07] LABS: Glucose - Point of Care 143 mg/dl (70-99)
--- NOTE | 2025-06-23 14:05 | PTCARENOTE ---
Updated assessment and vital sign trends ongoing and as documented. Follow up plan of cares in rounds with systems technician and critical care team. Follow up consult/consent with EENT team. Update with diabetic coordinator, discussing tpn, accu data, and
overall concerns in next few days leading toward procedure. Am lab, chest xray orders, continue with nebs, chest pt and pulmonary toilet assist. Ongoing supportive cares, emotional support for patient and family. Continue follow up pharmacy needs,
drips and titration as per unit based protocols.
[2025-06-23 14:21] LABS: APTT 84.6 Sec (23.4-35.0)
[2025-06-23 15:44] LABS: Glucose - Point of Care 155 mg/dl (70-99)
[2025-06-23 18:13] LABS: Glucose - Point of Care 149 mg/dl (70-99)
[2025-06-23 20:22] LABS: Glucose - Point of Care 147 mg/dl (70-99)
[2025-06-23] MEDS: Parenteral Nutrition, Central 1400 IV (20:38)
[2025-06-23 20:52] LABS: APTT 99.8 Sec (23.4-35.0)
[2025-06-23] MEDS: LIPITOR 40 MG TUBE (21:29)
[2025-06-23] MEDS: SEROQUEL 100 MG TUBE (21:29)
[2025-06-23] MEDS: PACERONE 200 MG TUBE (21:29)
[2025-06-23 22:17] LABS: Glucose - Point of Care 158 mg/dl (70-99)
--- NOTE | 2025-06-23 23:19 | PTCARENOTE ---
Patient remains sedated, able to follow some commands, withdrawals from pain and BENNETT. Remains intubated on ASV 90%/120%/8peep. Oxygen was increased due to patients ability to recover adequately after bathing/turns. Glycemic protocol. Propofol,
Fentanyl, Heparin and insulin per protocol. Trickle feeds with Jevity 1.5 @10ml/hr, with 25ml flush. Pt is tolerating. TPN also infusing at 58mls/hr. Drains x3 intact. Midline incision wit purulent drainage. Mason in place, urine output adequate.
Percussion and lateral rotation utilized.
[2025-06-24] VITALS (27 sets, daily range): BP systolic 118–144; BP diastolic 43–80; BMI 40.2
[2025-06-24 00:20] LABS: Glucose - Point of Care 127 mg/dl (70-99)
[2025-06-24] MEDS: DIPRIVAN 100 IV ×6 (02:00→22:42)
[2025-06-24] MEDS: HEPARIN 25000 UNITS/250 ML IV ×2 (02:00→08:32)
[2025-06-24] MEDS: TYLENOL ORAL SOLUTION 650 MG TUBE ×4 (03:02→21:16)
--- NOTE | 2025-06-24 03:30 | DOWNTIME ---
There was a [employer] A Partager Client Cardiology Clinical Nurse Specialist Downtime on 06/24/2025 from 0100 to 06/24/2025 at 0235. Downtime documentation of patient's care, including medication administrations, has been reconciled in the electronic record per guidelines. Refer to the
patient's paper chart under the miscellaneous tab to see printed paper medication records and downtime forms.
[2025-06-24 04:09] LABS: Glucose - Point of Care 149 mg/dl (70-99)
[2025-06-24 04:31] LABS: APTT 106.6 Sec (23.4-35.0)
[2025-06-24 04:47] LABS: Blood Urea Nitrogen 25 mg/dl (9-20); Calcium 8.1 mg/dl (8.4-10.2); Carbon Dioxide 36 mmol/L (22-30); Chloride 102 mmol/L (98-107); Estimated Creatinine Clearance > 125 ml/min; Glucose 149 mg/dl (70-99); Potassium 4.5 mmol/L (3.5-5.1); Sodium 139 mmol/L (135-145); Triglycerides 104 mg/dl (10-149); eGFR > 60.00
[2025-06-24 04:54] LABS: B.E. 11.9 mmol/L; HCO3 37.5 mmol/L (21-28); O2 Saturation % 97.5 % (94-98); PCO2 54 mmHg (35-48); PO2 77 mmHg (83-108)
[2025-06-24] MEDS: MERREM 500 MG IV ×5 (06:01→23:01)
[2025-06-24] MEDS: STERILE WATER FOR INJECTION 10 ML IV ×5 (06:01→23:01)
[2025-06-24 06:12] LABS: Glucose - Point of Care 138 mg/dl (70-99)
[2025-06-24 06:47] LABS: O2 Therapy ASV 120%/8/40
--- NOTE | 2025-06-24 06:50 | W.PN.INTV ---
Addendum entered and electronically signed by Mary Laurent MD 06/24/25 13:50:
Updated at length by phone on 06/24
Reviewed bloody secretions, plan to hold heparin
Reviewed persistent fevers, possible drug fever, possibly due to abdominal process
Reviewed plans for tracheostomy 06/25
All questions answered
Original Note:
Today's Communication / Plan
Recommendations
Increase PEEP to 12, wean FiO2 as able
Hold heparin for 24 hours given increased bloody secretions, reassess after tracheostomy
Continue trickle feeds
Questionable drug fever. Will consider holding Seroquel after tracheostomy depending on fever curve
Continue antibiotics per ID
Maintain active type and screen
Assessment
-
Assessment: 64-year-old male with a past medical history of cardiomyopathy, hypertension, DM type II, history of chronic opioid use due to chronic arthritis now on buprenorphine, history of ERASMO, venous insufficiency and chronic back pain who
presented with shortness of breath, abdominal distention. Found to have severe colonic distention. Initially treated with neostigmine, attempted sigmoidoscopy without attempt. Underwent exploratory laparotomy 06/08/2025-developed shock requiring
vasopressors and remained on mechanical ventilation. We were consulted on 06/09/2025.
Chronic conditions ACID REGENERATOR: Hypertension, BPH, DM type II, chronic back pain, cardiomyopathy, venous insufficiency, history of ERASMO, severe osteoarthritis, chronic pain management due to arthritis currently on buprenorphine in an effort to get off of
OxyContin/oxycodone,systolic cardiomyopathy.
06/24/2025 Overview: Patient currently intubated, ASV 120%. Persistent fevers noted, FiO2 increased to 90% overnight. Remains on heparin, TPN, propofol and fentanyl. Drainage from CHRISTINE drain as well as from ostomy bag. Additional peritoneal drains
draining serosanguineous fluid. Significant secretions per ET tube, now bloody
Assessment and plan
#1. Acute hypoxemic respiratory failure post laparotomy complicated by VAP of LLL, intubated 06/08
- Initially due to abdominal distention requiring intubation, mechanical ventilation, subsequently LLL
- Left lower lobe dense consolidation, copious ET tube secretions noted, improved after Bronchoscopic lavage, again worse 06/19
- Continue broad-spectrum antibiotics, s/p bronchoscopy and BAL 06/16 with extensive suctioning of thick mucoid secretions in LLL. BAL growing Pseudomonas/Yeast
- Repeat bronchoscopy 06/20 with extensive clearing of thick secretions from both lower lobes. BAL right lower lobe pending
- Tolerating ASV at 120%, PEEP of 8 and FiO2 40%. No further changes at this time pending tracheotomy
- Updated at length and reviewed with ENT. ENT consult placed for possible tracheostomy later this week. is agreeable
- Continue Seroquel 100 mg nightly, add 50 mg during daytime. EKG in a.m. not sure whether this may be contributing to her fevers. Will follow
- Increase PEEP back up to 12, wean FiO2 as able
#1a. Difficulty ventilator weaning.
- Patient continues to fail attempt at weaning.
- Significant agitation and desaturations with minimal decrease in sedation. Patient was weaned off propofol and trialed on Precedex and fentanyl and after some time again started getting agitated and started desaturating. Propofol resumed on
06/19.
- Body habitus, excessive secretions, severe pneumonia as well as intra-abdominal processes are contributing to failure to liberate from mechanical ventilation
- Plan for tracheostomy later this week, possibly
- Continue nightly Seroquel, add daytime dosing and remove propofol and fentanyl to light sedation protocol.
- Continue with sedation vacation on daily basis
- Plan for tracheostomy 06/25
#1b. Endotracheal cuff leak 06/19.
- Significant air leak with loss of tidal volume despite repeated attempts at cuff inflation
- ET tube was exchanged over bougie at bedside, 8.0 ET tube placed without complications.
- Cuff leak resolved post ET tube exchange. Minute ventilation adequate at around 14 to 15 L/min
#2. Septic shock suspected-source likely intraperitoneal and LLL pneumonia
- Continues to need pressor support, norepinephrine weaned off
- Continue broad-spectrum antibiotics and antifungal per infectious disease service, micafungin. Zosyn switched to meropenem per ID service, also on vancomycin
- BAL culture showing Pseudomonas
- 06/18, CT chest abdomen pelvis pursued, fluid noted in the abdomen.
- Purulent discharge from inferior margin of surgical site, bedside drainage on 06/19, sent for cultures. Growing Pseudomonas
- 06/20, IR guided peritoneal drains x 2 placed for intra-abdominal collections noted on imaging, fluid studies pending serosanguineous fluid noted
- persistent fevers noted. Questionable drug fever?. Patient remains on broad-spectrum antibiotics
#3. Pseudoobstruction with megacolon, failed conservative management, s/p ex lap
- S/p ex lap, sigmoidectomy and end colostomy, iatrogenic spillage of stool, peritonitis, umbilical hernia repair, 06/08/2025
- Continue IV meropenem, vancomycin and micafungin
- Small-volume stool output noted in the ostomy bag
- N.p.o. currently, TPN infusing. Plans for trickle feeds noted per colorectal surgery to start 06/22
- Tolerating trickle feeds started 06/22, tolerating
#4. Acute on chronic heart failure with reduced ejection fraction, LVEF 35%, Stage I diastolic dysfunction
- Patient has been diuresing well with intermittent Lasix
- Weight is down 13 kg since admission
#5. Paroxysmal atrial flutter.
- Heparin infusion, will hold given increased bloody tracheal secretions for now. Reassess in the next 24 hours post tracheostomy
- History of cardioversion in January 2025
- Has been on amiodarone
- LFTs normal as of 06/22
#6. Pulmonary hypertension, estimated pulmonary artery systolic pressure 50-55
- Primarily group II PH related to underlying congestive heart failure
- Continue to optimize intravascular volume, keep saturations above 90%, no indication for vasodilator therapy
#7. DM type II with Hyperglycemia
- Continue glycemic protocol as indicated
#8. Prolonged QTc
- Improved after replacing potassium and magnesium
- Tolerating Seroquel well, added 50 mg daytime dose in addition to nightly 100, EKG being followed
Other medical diagnoses:
#Morbid obesity
#Venous deficiency
#History of ERASMO
#Chronic pain management due to arthritis currently on buprenorphine in an effort to wean off of OxyContin/oxycodone
-
DVT prophylaxis: -heparin infusion
GI prophylaxis, pantoprazole
-
Prognosis is guarded
-
Critical care statement: A total of 35 minutes of critical care time was provided for this patient today. This includes management of unstable vital signs, evaluation of the patient at bedside, reviewing the patient's pertinent medical records
including ventilator settings, arterial blood gases, radiographs, microbiology, laboratory evaluations and discussion with primary team, critical care nursing, and respiratory therapy.
Will try to update later today

Data reviewed:
Chest x-ray 06/08/2025: Reviewed, ET tube in place. Left lower lobe airspace disease. Cardiomegaly
-
CT abdomen pelvis 06/05/2025:
The patient is significantly distended, and much of the abdominal and upper pelvic soft tissues extending anterior and to the left of the [id number], which limits evaluation, as it becomes difficult to confidently follow the loops of bowel.
There is distention of the rectum with air and stool, measuring 9.3 cm in diameter. There is marked distention of the sigmoid colon which extends into the right and central upper abdomen, with the sigmoid colon measuring up to 18 cm in diameter. The
sigmoid colon contains a moderate to large amount of stool, mainly inferiorly. There appears to be moderate distention of the rest of the visualized colon.
Small bowel loops are present, and do not appear to be significantly distended, similar appearance to prior examination.
Of note, the cecum cannot be confidently identified on the present examination
No gross evidence of free intraperitoneal air.
There is patchy parenchymal opacity within the visualized lower lungs, most likely atelectasis. A component of pneumonia is also possible, although felt to be less likely. There is no significant pleural effusion and no significant pericardial
effusion.
Coronary artery calcifications are present. Please correlate with symptoms of and risk factors for coronary artery disease, with further workup as clinically appropriate.
Of note, the stomach is not distended.
Subjective Dataa
Subjective Data
Date of Service:
Date of Service: June 24, 2025
Chief Complaint: Pot Liner Follow Up (Septic shock/respiratory failure require mechanical ventilation)
Subjective:
Patient remains critically ill, ventilator dependent. Persistent fevers noted. Increased oxygen requirement noted over the last 24 hours especially with movement, requiring 90%. Increase secretions, bloody secretions
Objective Data
Data Reviewed
Vital Signs / I&O / Oxygen:
Vital Signs
Temp Pulse Resp BP Pulse Ox
101 F H 72 24 119/71 94
06/24/25 03:40 06/24/25 05:00 06/24/25 05:00 06/24/25 05:00 06/24/25 05:00
Intake and Output
06/22/25 06/23/25 06/24/25
06:59 06:59 06:59
Intake Total 4426.1 / 4552.2 3710.9 / 3807.5 3107.1 / 3107.1
Output Total 4295 / 4445 3822 / 3972 4345 / 4345
Balance 131.1 / 107.2 -111.1 / -164.5 -1237.9 / -1237.9
SaO2 [ASV] 98
SaO2 [A/C] 95
SaO2 94
Nasal Cannula flow liters per 3
minute
Physical Exam
General: Comfortable (Intermittent rapid shallow breathing), Other (Large neck) and Other (Right upper extremity PICC)
HEENT: Normocephalic and Anicteric
Cardiovascular: S1-S2, Regular Rhythm, Murmur (n) and Peripheral Edema (1+, lower extremity stockings in place)
Respiratory: Wheeze (n), Crackles (Mild bibasilar), Rhonchi (Few scattered), Non-Labored Respirations and ET Tube (Secretions much less and not as purulent appearing )
GI: Soft, Distended (Morbidly obese), Other (Colostomy with stool output. Multiple CHRISTINE drains with serous drainage, incision intact) and Other (NG tube in place minimal drainage)
Neurology: Other (Patient does spontaneously move extremities, nods appropriately per nursing)
Skin: Warm and Other ( lower extremity venous stasis, both extremities are wrapped.)
Labs/Micro/Reports
Lab Data
06/23/25 05:00
06/24/25 04:03
Laboratory Results
06/23/25 06/23/25 06/24/25
13:56 20:25 04:03
APTT 84.6 H 99.8 H 106.6 H
pH
pCO2
pO2
HCO3
O2 Delivery Level
06/24/25
04:39
APTT
pH 7.45
pCO2 54 H
pO2 77 L
HCO3 37.5 H
O2 Delivery Level Asv 120%/
Microbiology
06/20/25 16:38 Peritoneal Fluid Body Fluid Culture - Preliminary
No Growth After 48 Hours
06/20/25 16:38 Peritoneal Fluid Gram Stain - Preliminary
06/20/25 11:01 Bronch Right Lower Lobe Respiratory Culture - Final
Pseudomonas aeruginosa
06/20/25 11:01 Bronch Right Lower Lobe Gram Stain - Final
06/20/25 16:34 Peritoneal Fluid Body Fluid Culture - Preliminary
No Growth After 48 Hours
06/20/25 16:34 Peritoneal Fluid Gram Stain - Preliminary
06/19/25 09:59 Abdomen Anaerobic Culture - Preliminary
Culture pending. Anaerobic cultures are examined after 3
days incubation. Additional information to follow.
06/20/25 11:01 Bronch Right Lower Lobe Acid Fast Bacilli Smear - Preliminary
06/20/25 11:01 Bronch Right Lower Lobe Acid Fast Bacilli Culture - Preliminary
06/20/25 11:01 Bronch Right Lower Lobe Fungal Culture - Preliminary
Culture in progress.
Positive cultures are reported as soon as detected.
Final report to follow in four to five weeks.
06/15/25 10:08 Bronch Left Lower Lobe Fungal Culture - Preliminary
Evelyn albicans
06/19/25 09:59 Abdomen Wound Culture - Preliminary
Pseudomonas aeruginosa
06/19/25 09:59 Abdomen Gram Stain - Preliminary
--- NOTE | 2025-06-24 07:40 | PN.DE.MGMTRT ---
Insulin Management
- -
06/24/2025: Diabetes Management Follow up
Patient admitted 06/05 with c/o difficulty breathing. Diabetes management consult 06/15. PMH 5 weeks of constipation with abdominal distention, HTN, A-Fib, CHF Prior to admission was taking Lantus 24 units daily with NovoLog 20 units AC and Farxiga 5
mg daily. A1C on admission 7.1%, cr today .5, eGFR > 60.
Patient is currently intubated and sedated. Information obtained from chart and patient nurse and pharmacist. Patient s/p OR 06/08 for lysis of adhesions, sigmoidectomy, with end descending colostomy. Patient for return to OR for trach on ,
06/25.
Remains on critical care glycemic protocol which was started 06/12, Glucose range 138 to 158. Patient has required 4.5 to 5 units of insulin per hour.
Receiving TPN, trickle feeds continue at 10cc/hr. Will closely monitor glucose trend and add Q 6 hour NovoLog sq if insulin requirements increase. Most likely will be NPO tonight for OR tomorrow. Will continue ctirical care glycemic protocol.
Discussed with nurse. Will cont to follow.
Diabetes History
- -
Type of Diabetes: 2 requiring insulin
Pre-Admission Diabetes Regimen
06/24/25
04:03
Creatinine 0.6 L
Lab Results
Hemoglobin A1c 7.8 % (4.0-5.6) H 06/22/25 03:20
Insulin Pump Settings
IP Diabetes Regimen
06/23/25 06/23/25 06/23/25
08:05 08:56 10:18
Glucose
POC Glucose 155 H 170 H 150 H
06/23/25 06/23/25 06/23/25
11:00 12:56 15:33
Glucose
POC Glucose 147 H 143 H 155 H
06/23/25 06/23/25 06/23/25
18:02 20:10 22:06
Glucose
POC Glucose 149 H 147 H 158 H
06/24/25 06/24/25 06/24/25
00:09 03:58 04:03
Glucose 149 H
POC Glucose 127 H 149 H
06/24/25
06:01
Glucose
POC Glucose 138 H
Meal type: Breakfast
Patient Education
[2025-06-24 07:50] LABS: Glucose - Point of Care 158 mg/dl (70-99)
[2025-06-24] MEDS: VENTOLIN NEBULES 2.5 MG INH ×3 (07:58→19:26)
[2025-06-24] MEDS: MUCOMYST 10% 2 ML INH ×3 (07:58→19:26)
[2025-06-24] MEDS: NSS (PRESERVATIVE FREE) 10 ML IV (08:34)
[2025-06-24] MEDS: PROTONIX IV 40 MG IV (08:34)
[2025-06-24] MEDS: SEROQUEL 50 MG TUBE (08:34)
[2025-06-24] MEDS: DESENEX/MITRAZOL/ZEASORB 1 APPLIC TOPICAL ×2 (08:34→20:54)
[2025-06-24] MEDS: SUBUTEX 4 MG SL (08:35)
[2025-06-24] MEDS: HYDROPHOR 1 APPLIC TOPICAL (08:35)
--- NOTE | 2025-06-24 08:42 | W.PN.CRS1 ---
Today's Communication / Plan
-
wound care
trach this week
continue tpn/trickle feeds
Assessment/Plan
-
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
obstipation associated with megacolon. WBC 11.[address] showing gaseous distention of the colon, diameter of the sigmoid up to 18 cm in diameter. He received a dose of neostigmine, which failed. He underwent attempt at decompressive sigmoidoscopy,
but encountered too much stool. Due to refractory nature of his issue, we proceeded with surgery.
POD 15 exlap, sigmoidectomy, end-colostomy; iatrogenic spillage of stool - controlled and abdomen washed out, no colonic ischemia or perforation
S/p bronch 06/15 for right-sided mucous plugging
S/p bronch /16 for mucus plugging, repeat bronch same day for hemoptysis
s/p IR drains x2 on the right for fluid cllxn, Cx -ngtd
Tmax 101.1, VSS, off pressors
no CBC today, drain 70ml
�Respiratory failure, c/b mucous plugging, pneumonia
-Appreciate crusher screen repairer; likely trach on
-Cont chest PT, pulmonary toilet
� Continue pain control and sedation
�Continue hep drip; okay for therapeutic Lovenox from surgical standpoint
� Continue TPN and trickle feeds
-nutrition recs appreciated but given hyperglycemia will not be increasing dextrose and given high dose of propofol will continue TPN w/o lipids
� Appreciate ID, on Merrem, david
�Septic shock likely due to pneumonia
-Lower portion of abdominal wound open; no evidence of infection; WTD packing into wound twice a day
� Continue Mason, strict I&O's
�Appreciate crusher screen repairer and primary
-Trach placement sometime this week
Subjective Data
Procedure
06/08/25- Exploratory laparotomy, lysis of adhesions, sigmoidectomy, decompression of right colon, abdominal washout, creation of end descending colostomy, umbilical hernia repair
Subjective Data
Date of Service: June 24, 2025
Patient is intubated and sedated.
Objective Data
-
Vital Signs
Temp Pulse Resp BP Pulse Ox
101.1 F H 74 22 119/71 95
06/24/25 08:00 06/24/25 08:05 06/24/25 08:05 06/24/25 05:00 06/24/25 08:05
Intake & Output
06/23/25 06/24/25 06/25/25
06:59 06:59 06:59
Intake Total 3710.9 / 3807.5 3107.1 / 3107.1
Output Total 3822 / 3972 4345 / 4345
Balance -111.1 / -164.5 -1237.9 / -1237.9
Intake:
Oral fluids 0 / 0
IV fluids (Total) 1423.9 / 1485.5 1598.1 / 1598.1
Fentanyl gtt 92.5 / 97.5 130 / 130
Insulin 149 / 154 124.5 / 124.5
Propofol 422.4 / 440.0 459.6 / 459.6
heparin 760 / 794 884 / 884
IV piggybacks
TPN/PPN 1522 / 1522 1044 / 1044
Tube feeding 190 / 200 145 / 145
Feeding tube flush amount 475 / 500 310 / 310
Amount instilled into Drain (
Total)
Right Middle Abdomen Milton-
Vo B Placed in IR
Right Upper Abdomen Milton-
Vo A Placed in IR
Amount instilled into GI Tube ( 80 / 80
Total)
[place] Sump 80 / 80
Output:
Drain Output (Total) 61 / 61 70 / 70
Right Lower Abdomen Milton-
Vo
Right Middle Abdomen Milton-
Vo B Placed in IR
Right Upper Abdomen Milton-
Vo A Placed in IR
Urine, Mason 3761 / 3911 4275 / 4275
Lab Results
06/23/25 05:00
06/24/25 04:03
Physical Exam
-
General: Other (intubated and sedated)
Abdomen: Non Distended and Other (lower midline wound with fibrinous material, scant pus, one suture noted)
[2025-06-24 08:54] LABS: Glucose - Point of Care 144 mg/dl (70-99)
[2025-06-24] MEDS: RELISTOR 12 MG SC (09:14)
--- NOTE | 2025-06-24 09:30 | W.PN.ID1 ---
Date of Service
Date of Service: June 24, 2025
Today's Communication
Continue meropenem.
Consider dc Seroquel.
Assessment / Plan
# Purulent peritonitis
# Colonic inertia with megacolon; status post ex lap, decompression, colostomy, stool leakage into the abdomen requiring washout 06/08/2025
# s/p Septic shock; continues on low dose pressor
# PNA with Pseudomonas
# Fever persists ? due to Seroquel
# Leukocytosis overall improved
# VDRF, unable to wean. For trach.
- 06/08/25 Exploratory laparotomy, lysis of adhesions, sigmoidectomy, decompression of right colon, abdominal washout, creation of end descending colostomy, umbilical hernia repair
- No OR cx
- Blood cultures pending; neg
- 06/15 s/p bronch with airway clearance; cx Pseudomonas
- 06/[address] a/p: limited study but no obvious abscess; + free fluid in abdomen
- 06/19 Colorectal opened midline abd distal incision. cx cx Pseudomonas
- 06/20 aspiration/drainage of right abdominal collections; serous fluid. cultures neg to date
- completed 10 empiric micafungin
- s/p Vancomycin IV x 6d
- s/p Zosyn(8d) -> continue meropenem (d#7).
- Consider decrease or dc Seroquel.
- trend temps/wbc
- Pt remains critically ill; on vent
# Conditions [place]
HFrEF
HTN
DM
Afib
HLD
Colonic Inertia / Dysmotility
Chronic opioid dependence
Advanced bilateral lower extremity venous insufficiency
Morbid obesity (BMI~43)
Chief Complaint
-: Fever and Other (Purulent peritonitis)
Subjective / Review of Systems
On vent.
Vital Signs / Physical Exam
Vital Signs
Vital Signs
Temp Pulse Resp BP Pulse Ox
101.1 F H 74 22 119/71 95
06/24/25 08:00 06/24/25 08:05 06/24/25 08:05 06/24/25 05:00 06/24/25 08:05
Physical Exam
Constitutional: Acutely Ill
Cardiovascular: Regular Rate and S1/S2
Pulmonary: Rhonchi
Gastrointestinal: Soft, Non Tender, Non Distended and Other (colostomy loose brown stool. R abd CHRISTINE drain x 2 with serous and serosanguinous output.)
Genito-Urinary: Mason and Clear Urine
Extremities: Edema and Venous Insufficiency
Objective Data
Lab Data
Lab Results
06/23/25 05:00
06/24/25 04:03
PT 17.4 Sec (11.4-14.6) H 06/09/25 00:01
INR 1.40 06/09/25 00:01
APTT 106.6 Sec (23.4-35.0) H 06/24/25 04:03
Estimated Creat Clear > 125 ml/min 06/24/25 04:03
Lactic Acid 0.9 mmol/L (0.7-2.0) 06/09/25 00:01
Total Bilirubin 0.4 mg/dl (0.2-1.3) 06/22/25 03:20
AST 50 U/L (17-59) 06/22/25 03:20
ALT 21 U/L (0-50) 06/22/25 03:20
Alkaline Phosphatase 113 U/L (38-126) 06/22/25 03:20
C-Reactive Protein > 270.00 mg/L (0.0-10.00) H 06/11/25 03:22
Most recent labs reviewed.
Micro Results:
06/20/25 16:38 Body Fluid Culture - Preliminary
Peritoneal Fluid No Growth After 48 Hours
Gram Stain - Preliminary
06/20/25 11:01 Respiratory Culture - Final
Bronch Right Lower Lobe Pseudomonas aeruginosa
Gram Stain - Final
06/20/25 16:34 Body Fluid Culture - Preliminary
Peritoneal Fluid No Growth After 48 Hours
Gram Stain - Preliminary
06/19/25 09:59 Anaerobic Culture - Preliminary
Abdomen Culture pending. Anaerobic cultures are examined after 3
days incubation. Additional information to follow.
06/20/25 11:01 Acid Fast Bacilli Smear - Preliminary
Bronch Right Lower Lobe Acid Fast Bacilli Culture - Preliminary
06/20/25 11:01 Fungal Culture - Preliminary
Bronch Right Lower Lobe Culture in progress.
Positive cultures are reported as soon as detected.
Final report to follow in four to five weeks.
06/15/25 10:08 Fungal Culture - Preliminary
Bronch Left Lower Lobe Evelyn albicans
06/19/25 09:59 Wound Culture - Preliminary
Abdomen Pseudomonas aeruginosa
Gram Stain - Preliminary
06/17/25 13:11 MRSA Screen - Final
Nose No Methicillin Resistant Staphylococcus aureus isolated.
06/13/25 12:07 Blood Culture - Final
Blood/Venous No Growth - Final Report
06/13/25 12:07 Blood Culture - Final
Blood/Venous No Growth - Final Report
06/15/25 10:08 Acid Fast Bacilli Smear - Preliminary
Bronch Left Lower Lobe Acid Fast Bacilli Culture - Preliminary
06/15/25 10:08 Respiratory Culture - Final
Bronch Left Lower Lobe Pseudomonas aeruginosa
Gram Stain - Final
06/14/25 11:22 Respiratory Culture - Final
Tracheal Aspirate Pseudomonas aeruginosa
Gram Stain - Final
06/11/25 09:27 Blood Culture - Final
Blood/Venous No Growth - Final Report
06/11/25 09:59 Blood Culture - Final
Blood/Venous No Growth - Final Report
06/06/25 07:57 MRSA Screen - Final
Nose No Methicillin Resistant Staphylococcus aureus isolated.
Imaging:
06/24/25 CXR: Slightly increased basilar predominant airspace opacities, worse on the left. Findings may be related to pneumonia or worsening atelectasis.
06/18/25 CT c/a/p: Suspected moderate volume mildly complex presumed free fluid in the abdomen, overall increased in volume in comparison to recent prior study, most prominently located in the right subhepatic region, right subdiaphragmatic region
and likely left abdomen/pelvis.
06/16/25 CXR: There is moderate airspace disease in right lower lung field concerning for pneumonia. There is obscuration of the left hemidiaphragm suggesting left lower lobe pneumonia
06/15/25 CXR: No pneumothorax status post bronchoscopy. Progressive homogeneous increased retrocardiac opacity. Suspect mild left perihilar and right infrahilar opacity which could represent atelectasis or pneumonia.
06/13/25 CT a/p: Very limited study. Small volume fluid in the abdomen, particularly in the left abdomen mildly complex. As this fluid is incompletely included, it cannot be determined whether this totally represents likely free fluid or combination
of free fluid and abnormal focal fluid collection. Additional small abnormal focal fluid collections cannot be excluded on the basis of this markedly limited study. Apparent recent prior partial sigmoidectomy with large volume stool seen in the
residual sigmoid colon and rectum.
06/10 CXR: Stable CHF and bibasilar atelectasis and/or pneumonia.
06/08/25 CXR: Diffuse marked colonic dilation. Measurement of caliber of the upper colon is slightly greater then obstruction series of June 07, 2025. Multiple air-fluid levels compatible with stasis. Moderate amount of stool within the inferior
aspect of the right colon as well as within the rectum. No gross evidence for free intraperitoneal air.
06/05/25 CT a/p: Significant gaseous distention of a large portion of the colon. This contributes to limitation of this examination, as the patient cannot be fully included on the [id number] of the CT scanner. If there can be some distal colonic
decompression, repeat scan could be considered, when hopefully the patient could be entirely included on the [id number] of the exam. No gross evidence for free intraperitoneal air. Patchy parenchymal opacity within the visualized lower lung, most
likely atelectasis. Pneumonia is a differential consideration, felt to be less likely based on morphologic appearance.
Care Review
Plan reviewed with: Nurse and Physician (Dr. Carissa Laurent)
[2025-06-24 11:02] LABS: Glucose - Point of Care 156 mg/dl (70-99)
[2025-06-24] MEDS: SUBLIMAZE 100 IV (12:25)
[2025-06-24 13:31] LABS: Glucose - Point of Care 127 mg/dl (70-99)
--- NOTE | 2025-06-24 13:46 | W.PN.HOSP.TC ---
Today's Communication/Plan
-
Continue management in the ICU.
tracheostomy tomorrow
Assessment / Plan
Assessment / Plan
Impression:
Mr. Knapp is a 64-year-old male with medical history of HFpEF, A-fib/flutter, IDDM, obesity, chronic pain with subsequent opioid dependence, and chronic constipation with colonic dysmotility who presented with shortness of breath, abdominal
bloating and discomfort, constipation. His last bowel movement was 2 weeks prior to arrival. He is having increasing difficulty breathing due to worsening abdominal distention. He has had multiple similar episodes since September 2024 and has
previously required decompression. He has been treated with enemas and neostigmine previously. Abdominal imaging showed significant colonic distention with air-filled loops of bowel. He also had patchy parenchymal opacities within the mid to
lower lungs. He was mildly hypoxic and has been started on antibiotics. He has remained afebrile with a mild leukocytosis of just over 12,000. He has been admitted for further evaluation and management.
Seen by GI, failed neostigmine, enema, status post nonsuccessful decompressive flexible sigmoidoscopy.
Surgery team consulted.
s/p Exploratory laparotomy, lysis of adhesions, sigmoidectomy, decompression of right colon, abdominal washout, creation of end descending colostomy, umbilical hernia repair on 06/08
admitted to ICU postoperatively, intubated.
Patient had fever,Infectious disease consult, started on zosyn.
Patient was still running fever, added micafungin.
CT chest: New right lower lobe consolidation with air bronchograms, atelectasis versus pneumonia, Possible small bilateral pleural effusions.
CT abdomen/pelvis shows: Small volume fluid in the abdomen, particularly in the left abdomen mildly complex. As this fluid is incompletely included, it cannot be determined whether this totally represents likely free fluid or combination of free
fluid and abnormal focal fluid collection. Additional small abnormal focal fluid collections cannot be excluded on the basis of this markedly limited study
Patient received Lasix.
Difficult extubation, discussion regarding trach
Currently intubated, surgery okay with trickle feeding.
Difficult extubation, ENT consult for trach
Assessment/Plan:
Colonic dysmotility/ileus:
- Abdomen remained significantly distended despite multiple medical enemas and subsequent bowel movements
- Upgraded to IMU 06/07, pushed 4 mg neostigmine around 1:30 PM, no significant peristaltic response
- Ultimately required surgical intervention, brought to the OR 06/08 for ex lap with lysis of adhesions and sigmoidectomy with end descending colostomy, decompression of right colon, abdominal washout and umbilical hernia repair
- ICU postoperatively, intubated
- Colorectal surgery following, increased output from colostomy now with brown stool
- Lower fred removed from surgical incision with mucopurulent output, wound packed, cultures obtained, redressed
- IR placed 2 abdominal drains yesterday 06/20 with serosanguineous output, cultures pending
- Continue TPN, holding tube feeds
- Colorectal surgery okay with transitioning anticoagulation to therapeutic Lovenox as needed
- Surgery Okay with trickle feed
Septic shock, requiring pressors:
- This is likely a primary intra-abdominal infection, stool leakage into the abdomen requiring washout, also likely has concomitant pulmonary infection
- Tracheal aspirate from 06/14 growing pansensitive Pseudomonas
- ID following, continuing vancomycin and micafungin, Zosyn switched to meropenem
- Leukocytosis improving, fever curve improving
- Vasopressors as needed, currently on hold
- Precedex discontinued as it was useless and keeping him sedated, continuing sedation with propofol and fentanyl
Acute hypoxic respiratory failure (currently intubated in the ICU postoperatively)
- Continue mechanical ventilation, ETT replaced 06/19 by edge finisher
- Persistent copious thick secretions and left lower lobe volume loss
- Underwent bronchoscopy with BAL left lower lobe 06/15 by edge finisher, cultures growing Pseudomonas, repeat bronchoscopy with BAL today 06/20 with aspiration of copious secretions
- Continue antimicrobial coverage with micafungin, vancomycin, and meropenem
- Hypertonic nebulized saline 3 times a day with albuterol, aggressive chest PT
- Started Seroquel 50 mg in the morning and 100 mg at night, monitor QTc
- Patient was inadequately sedated with Precedex which has now been discontinued, restarted propofol and fentanyl drips
- Additional Lasix pushes as needed
- Weaning trials as tolerated
- ENT consult for tracheostomy tomorrow
paroxismal A-fib/flutter:
- Currently rate controlled, holding home metoprolol, continue home amiodarone 200 mg at night via OGT
- Holding home Xarelto, have been anticoagulating with IV heparin, colorectal surgery okay with transition to therapeutic Lovenox as needed
IDDM:
- Insulin drip.
HFrEF:
- Acute on chronic chronic
- Holding home metoprolol succinate 100 mg
- Lasix pushes as needed, holding spironolactone, monitor daily weights
- No need for afterload reduction due to hypotension
CODE STATUS: Full code
DVT prophylaxis: Heparin drip
Diet: TPN
Disposition: Continue management in the ICU.
tracheostomy tomorrow
Total time spent on today's encounter was 74 minutes which included time spent in counseling the patient/family regarding diagnosis and treatment plan as listed above, goals of care, and symptom management. Case was discussed with nursing staff,
specialists, and care coordinators/case management. All labs and imaging personally reviewed by me. Remainder the time spent in detailed review of previous records, lab data, imaging, and other medical provider documentation.
Anticipated Discharge: > 48 hours
Subjective/Interval History
-
Date of Service: June 24, 2025
Tracheostomy tomorrow
Objective Data
-
Labs:
Laboratory Results
06/24/25 06/24/25
04:03 04:39
APTT 106.6 H
HCO3 37.5 H
Sodium 139
Potassium 4.5
Chloride 102
Carbon Dioxide 36 H
BUN 25 H
Creatinine 0.6 L
Glucose 149 H
Calcium 8.1 L
Vital Signs:
Vital Signs
Temp Pulse Resp BP Pulse Ox
100.9 F H 69 19 127/63 96
06/24/25 11:46 06/24/25 12:00 06/24/25 12:00 06/24/25 12:00 06/24/25 12:00
I&O
06/23/25 06/24/25 06/25/25
06:59 06:59 06:59
Intake Total 3710.9 / 3807.5 3107.1 / 3261.2 899.7 / 899.7
Output Total 3822 / 3972 4345 / 4445 800 / 800
Balance -111.1 / -164.5 -1237.9 / -1183.8 99.7 / 99.7
Physical Exam
-
General: Intubated and Obese
HEENT: Normocephalic, Atraumatic, Moist Mucous Membranes, No Ptosis, PERRLA and Nose Appears Normal
Respiratory: Rales, Rhonchi and Non Labored Respirations
Cardiac: Regular Rhythm and S1/S2
Breast: Deferred by me
GI: Other (Colostomy bag, midline incision clean)
Musculoskeletal: No Clubbing and No Cyanosis
Skin: Warm
Neuro: Sedated (follow commands)
Psych: Other (Sedated)
--- NOTE | 2025-06-24 15:13 | PTCARENOTE ---
Continue with follow up assessment trends and follow up vital signs trends. Senior Windows Engineer team at bedside thru am. Continue to work with respiratory team for pulmonary toilet, respiratory meds and follow up cpt/vibration. Ongoing critical care input
and output. Medications and review with pharmacy this am in rounds. Continue follow up with infectious disease and hospitalist teams in [facility]. Medications evaluation follow up via [place]. Update plan of cares with patient and presently at bedside.
Continue with teaching and emotional support. Assessment [id number] thru shift with some improvement in o2 status. Presently on 60%fio2 peep was increase to 12cm. Am labs, abg and xray as ordered.
--- NOTE | 2025-06-24 15:15 | CM ---
Intubated, scheduled for trach on 06/25/25, fevers, TPN, IV/Meropenem, colostomy. Discharge POC: TBD based on medical progression. .
[2025-06-24 16:32] LABS: Glucose - Point of Care 133 mg/dl (70-99)
[2025-06-24] MEDS: NOVOLIN R INSULIN INFUSION 100 IV (17:31)
[2025-06-24] MEDS: SUBLIMAZE 50 MCG IV (17:45)
[2025-06-24 18:37] LABS: Glucose - Point of Care 146 mg/dl (70-99)
[2025-06-24 20:41] LABS: Glucose - Point of Care 136 mg/dl (70-99)
[2025-06-24] MEDS: Parenteral Nutrition, Central 1400 IV (20:41)
--- NOTE | 2025-06-24 21:00 | PTCARENOTE ---
Pt tolerating vent settings satting at 96% pulse ox. Pt requires frequent suctioning for large amounts of thick white/segovia colored secretions.
[2025-06-24] MEDS: LIPITOR 40 MG TUBE (21:16)
[2025-06-24] MEDS: PACERONE 200 MG TUBE (21:16)
[2025-06-24] MEDS: SEROQUEL 100 MG TUBE (21:16)
--- NOTE | 2025-06-24 21:30 | PTCARENOTE ---
PRN dose of tylenol administered by this RN for a fever of 101F
[2025-06-24 22:43] LABS: Glucose - Point of Care 153 mg/dl (70-99)
[2025-06-25] VITALS (35 sets, daily range): BP systolic 95–150; BP diastolic 57–97; BMI 39.8
[2025-06-25 00:37] LABS: Glucose - Point of Care 145 mg/dl (70-99)
[2025-06-25 02:44] LABS: Glucose - Point of Care 142 mg/dl (70-99)
[2025-06-25] MEDS: DIPRIVAN 100 IV ×6 (03:05→23:28)
[2025-06-25] MEDS: SUBLIMAZE 100 IV ×2 (03:28→19:05)
[2025-06-25 03:44] LABS: Hematocrit 26.2 % (39.0-52.0); Hemoglobin 7.8 g/dL (13.0-18.0); Mean Corp Hgb Conc. 29.8 g/dL (33.0-37.0); Mean Corpuscular Volume 85.3 fL (80.0-94.0); Platelet Count 259 10^3/uL (130-400); Red Cell Dist. Width 15.4 % (11.5-14.5)
[2025-06-25 04:07] LABS: Blood Urea Nitrogen 27 mg/dl (9-20); Calcium 8.0 mg/dl (8.4-10.2); Carbon Dioxide 35 mmol/L (22-30); Chloride 102 mmol/L (98-107); Estimated Creatinine Clearance > 125 ml/min; Glucose 127 mg/dl (70-99); Magnesium 2.2 mg/dl (1.6-2.3); Potassium 4.8 mmol/L (3.5-5.1); Sodium 138 mmol/L (135-145); eGFR > 60.00
[2025-06-25 04:44] LABS: Glucose - Point of Care 134 mg/dl (70-99)
--- NOTE | 2025-06-25 05:00 | PTCARENOTE ---
Tube Feeds turned off per order.
[2025-06-25] MEDS: MERREM 500 MG IV ×4 (05:12→23:49)
[2025-06-25] MEDS: STERILE WATER FOR INJECTION 10 ML IV ×4 (05:12→23:49)
[2025-06-25 06:41] LABS: Glucose - Point of Care 136 mg/dl (70-99)
--- NOTE | 2025-06-25 07:18 | W.PN.INTV ---
Today's Communication / Plan
Recommendations
Resume feeds
Remain off heparin therapy, discontinue
Will start Lovenox at 40 mg every afternoon on 06/26 and consider going to every 12 hour dosing for atrial flutter/fibrillation
Resume ventilator wean 06/26
If fevers persist after 06/26, will hold Seroquel
Assessment
-
Assessment: 64-year-old male with a past medical history of cardiomyopathy, hypertension, DM type II, history of chronic opioid use due to chronic arthritis now on buprenorphine, history of ERASMO, venous insufficiency and chronic back pain who
presented with shortness of breath, abdominal distention. Found to have severe colonic distention. Initially treated with neostigmine, attempted sigmoidoscopy without attempt. Underwent exploratory laparotomy 06/08/2025-developed shock requiring
vasopressors and remained on mechanical ventilation. We were consulted on 06/09/2025.
Chronic conditions CHIEF OF SAFETY AND PROTECTION: Hypertension, BPH, DM type II, chronic back pain, cardiomyopathy, venous insufficiency, history of ERASMO, severe osteoarthritis, chronic pain management due to arthritis currently on buprenorphine in an effort to get off of
OxyContin/oxycodone,systolic cardiomyopathy.
06/24/2025 Overview: Patient currently intubated, ASV 120%. Persistent fevers noted, FiO2 increased to 90% overnight. Remains on heparin, TPN, propofol and fentanyl. Drainage from CHRISTINE drain as well as from ostomy bag. Additional peritoneal drains
draining serosanguineous fluid. Significant secretions per ET tube, now bloody
Assessment and plan
#1. Acute hypoxemic respiratory failure post laparotomy complicated by VAP of LLL, intubated 06/08, s/p trach 06/25
- Initially due to abdominal distention requiring intubation, mechanical ventilation, subsequently LLL
- Left lower lobe dense consolidation, copious ET tube secretions noted, improved after Bronchoscopic lavage, again worse 06/19
- Continue broad-spectrum antibiotics, s/p bronchoscopy and BAL 06/16 with extensive suctioning of thick mucoid secretions in LLL. BAL growing Pseudomonas/Yeast
- Repeat bronchoscopy 08/16 with extensive clearing of thick secretions from both lower lobes. BAL right lower lobe pending
- Tolerating ASV at 120%, PEEP of 8 and FiO2 40%. No further changes at this time pending tracheotomy
- Worsening oxygenation required increase of PEEP to 12, FiO2 to 90%, now weaned down to 60%
- Status post tracheostomy 06/25
#1a. Difficulty ventilator weaning.
- Patient continues to fail attempt at weaning.
- Significant agitation and desaturations with minimal decrease in sedation. Patient was weaned off propofol and trialed on Precedex and fentanyl and after some time again started getting agitated and started desaturating. Propofol resumed on
06/19.
- Body habitus, excessive secretions, severe pneumonia as well as intra-abdominal processes are contributing to failure to liberate from mechanical ventilation
- status post tracheostomy 06/25
- Will resume weaning process 06/26 as able
#2. Septic shock suspected-source likely intraperitoneal and LLL pneumonia
- Continues to need pressor support, norepinephrine weaned off
- Continue broad-spectrum antibiotic, status post antifungal per infectious disease service, micafungin. Zosyn switched to meropenem per ID service, also on vancomycin, now on meropenem alone
- BAL culture showing Pseudomonas
- 06/18, CT chest abdomen pelvis pursued, fluid noted in the abdomen.
- Purulent discharge from inferior margin of surgical site, bedside drainage on 06/19, sent for cultures. Growing Pseudomonas
- 06/20, IR guided peritoneal drains x 2 placed for intra-abdominal collections noted on imaging, fluid studies pending serosanguineous fluid noted
- persistent fevers noted. Questionable drug fever?. Patient remains on broad-spectrum antibiotics
- Will hold Seroquel
#3. Pseudoobstruction with megacolon, failed conservative management, s/p ex lap
- S/p ex lap, sigmoidectomy and end colostomy, iatrogenic spillage of stool, peritonitis, umbilical hernia repair, 06/08/2025
- Continue IV meropenem, vancomycin and micafungin
- Small-volume stool output noted in the ostomy bag
- N.p.o. currently, TPN infusing. Plans for trickle feeds noted per colorectal surgery to start 06/22
- Tolerating trickle feeds started 06/22, resume 06/25 post tracheostomy. NG tube in place
#4. Acute on chronic heart failure with reduced ejection fraction, LVEF 35%, Stage I diastolic dysfunction
- Patient has been diuresing well with intermittent Lasix
- Weight is down 13 kg since admission
- Will give additional dose of Lasix given desaturation with supine position
#5. Paroxysmal atrial flutter.
- Patient on outpatient Xarelto
- Heparin infusion, will hold given increased bloody tracheal secretions for now. Reassess in the next 24 hours post tracheostomy
- Will consider starting enoxaparin every afternoon and consider going to every 12 hours depending on anticoagulation need. Reviewed with risk of being off anticoagulation
- History of cardioversion in January 2025
- Has been on amiodarone
- LFTs normal as of 06/22
#6. Pulmonary hypertension, estimated pulmonary artery systolic pressure 50-55
- Primarily group II PH related to underlying congestive heart failure
- Continue to optimize intravascular volume, keep saturations above 90%, no indication for vasodilator therapy
- Additional dose of Lasix
#7. DM type II with Hyperglycemia
- Continue glycemic protocol as indicated
#8. Prolonged QTc
- Improved after replacing potassium and magnesium
- Tolerating Seroquel well, added 50 mg daytime dose in addition to nightly 100, EKG being followed
- Will stop Seroquel given fevers if persists
Other medical diagnoses:
#Morbid obesity
#Venous deficiency
#History of ERASMO
#Chronic pain management due to arthritis currently on buprenorphine in an effort to wean off of OxyContin/oxycodone
-
DVT prophylaxis: -heparin infusion
GI prophylaxis, pantoprazole
-
Prognosis is guarded
-
Critical care statement: A total of 35 minutes of critical care time was provided for this patient today. This includes management of unstable vital signs, evaluation of the patient at bedside, reviewing the patient's pertinent medical records
including ventilator settings, arterial blood gases, radiographs, microbiology, laboratory evaluations and discussion with primary team, critical care nursing, and respiratory therapy.
updated by phone on 06/25

Data reviewed:
Chest x-ray 06/08/2025: Reviewed, ET tube in place. Left lower lobe airspace disease. Cardiomegaly
-
CT abdomen pelvis 06/05/2025:
The patient is significantly distended, and much of the abdominal and upper pelvic soft tissues extending anterior and to the left of the [id number], which limits evaluation, as it becomes difficult to confidently follow the loops of bowel.
There is distention of the rectum with air and stool, measuring 9.3 cm in diameter. There is marked distention of the sigmoid colon which extends into the right and central upper abdomen, with the sigmoid colon measuring up to 18 cm in diameter. The
sigmoid colon contains a moderate to large amount of stool, mainly inferiorly. There appears to be moderate distention of the rest of the visualized colon.
Small bowel loops are present, and do not appear to be significantly distended, similar appearance to prior examination.
Of note, the cecum cannot be confidently identified on the present examination
No gross evidence of free intraperitoneal air.
There is patchy parenchymal opacity within the visualized lower lungs, most likely atelectasis. A component of pneumonia is also possible, although felt to be less likely. There is no significant pleural effusion and no significant pericardial
effusion.
Coronary artery calcifications are present. Please correlate with symptoms of and risk factors for coronary artery disease, with further workup as clinically appropriate.
Of note, the stomach is not distended.
Subjective Dataa
Subjective Data
Date of Service:
Date of Service: June 25, 2025
Chief Complaint: Corporate Coordinator Follow Up (Septic shock/respiratory failure require mechanical ventilation)
Subjective:
Patient evaluated before and after tracheostomy. Heparin held since 06/24. No changes from critical care standpoint. Remains ventilator dependent, FiO2 60%. No obvious recurrence of hemoptysis
Objective Data
Data Reviewed
Vital Signs / I&O / Oxygen:
Vital Signs
Temp Pulse Resp BP Pulse Ox
100.1 F 54 11 120/61 98
06/25/25 03:01 06/25/25 05:00 06/25/25 05:00 06/25/25 05:00 06/25/25 05:00
Intake and Output
06/24/25 06/25/25 06/26/25
06:59 06:59 06:59
Intake Total 3107.1 / 3261.2 2915.4 / 2915.4
Output Total 4345 / 4445 3263 / 3263
Balance -1237.9 / -1183.8 -347.6 / -347.6
SaO2 [ASV] 98
SaO2 [A/C] 95
SaO2 98
Nasal Cannula flow liters per 3
minute
Physical Exam
General: Comfortable (Intermittent rapid shallow breathing), Other (Large neck) and Other (Right upper extremity PICC)
HEENT: Normocephalic and Anicteric
Cardiovascular: S1-S2, Regular Rhythm, Murmur (n) and Peripheral Edema (1+, lower extremity stockings in place)
Respiratory: Wheeze (n), Crackles (Mild bibasilar), Rhonchi (Few scattered), Non-Labored Respirations and ET Tube (Secretions much less and not as purulent appearing )
GI: Soft, Distended (Morbidly obese), Other (Colostomy with stool output. Multiple CHRISTINE drains with serous drainage, incision intact) and Other (NG tube in place minimal drainage)
Neurology: Other (Patient does spontaneously move extremities, nods appropriately per nursing)
Skin: Warm and Other (Mid abdominal incision with fred, inferior portion open, CHRISTINE drainage serous)
Labs/Micro/Reports
Lab Data
06/25/25 03:23
06/25/25 03:23
Microbiology
06/20/25 16:38 Peritoneal Fluid Body Fluid Culture - Preliminary
06/20/25 16:38 Peritoneal Fluid Gram Stain - Preliminary
06/19/25 09:59 Abdomen Wound Culture - Final
Pseudomonas aeruginosa
06/19/25 09:59 Abdomen Gram Stain - Final
06/19/25 09:59 Abdomen Anaerobic Culture - Final
06/20/25 16:34 Peritoneal Fluid Body Fluid Culture - Preliminary
No Growth After 72 Hours
06/20/25 16:34 Peritoneal Fluid Gram Stain - Preliminary
06/20/25 11:01 Bronch Right Lower Lobe Respiratory Culture - Final
Pseudomonas aeruginosa
06/20/25 11:01 Bronch Right Lower Lobe Gram Stain - Final
06/20/25 11:01 Bronch Right Lower Lobe Acid Fast Bacilli Smear - Preliminary
06/20/25 11:01 Bronch Right Lower Lobe Acid Fast Bacilli Culture - Preliminary
06/20/25 11:01 Bronch Right Lower Lobe Fungal Culture - Preliminary
Culture in progress.
Positive cultures are reported as soon as detected.
Final report to follow in four to five weeks.
06/15/25 10:08 Bronch Left Lower Lobe Fungal Culture - Preliminary
Evelyn albicans
[2025-06-25] MEDS: MUCOMYST 10% 2 ML INH ×3 (07:52→20:23)
[2025-06-25] MEDS: VENTOLIN NEBULES 2.5 MG INH ×3 (07:52→20:25)
[2025-06-25] MEDS: SUBUTEX 4 MG SL (07:58)
[2025-06-25] MEDS: PROTONIX IV 40 MG IV (07:58)
[2025-06-25] MEDS: NSS (PRESERVATIVE FREE) 10 ML IV (07:58)
[2025-06-25] MEDS: SEROQUEL 50 MG TUBE (07:59)
[2025-06-25] MEDS: HYDROPHOR 1 APPLIC TOPICAL (08:13)
[2025-06-25] MEDS: DESENEX/MITRAZOL/ZEASORB 1 APPLIC TOPICAL ×2 (08:14→20:45)
--- NOTE | 2025-06-25 08:26 | W.PN.HOSP.TC ---
Today's Communication/Plan
-
Continue management in the ICU.
remains intubated.
for tracheostomy today
Assessment / Plan
Assessment / Plan
Impression:
Mr. Knapp is a 64-year-old male with medical history of HFpEF, A-fib/flutter, IDDM, obesity, chronic pain with subsequent opioid dependence, and chronic constipation with colonic dysmotility who presented with shortness of breath, abdominal
bloating and discomfort, constipation. His last bowel movement was 2 weeks prior to arrival. He is having increasing difficulty breathing due to worsening abdominal distention. He has had multiple similar episodes since September 2024 and has
previously required decompression. He has been treated with enemas and neostigmine previously. Abdominal imaging showed significant colonic distention with air-filled loops of bowel. He also had patchy parenchymal opacities within the mid to
lower lungs. He was mildly hypoxic and has been started on antibiotics. He has remained afebrile with a mild leukocytosis of just over 12,000. He has been admitted for further evaluation and management.
Seen by GI, failed neostigmine, enema, status post nonsuccessful decompressive flexible sigmoidoscopy.
Surgery team consulted.
s/p Exploratory laparotomy, lysis of adhesions, sigmoidectomy, decompression of right colon, abdominal washout, creation of end descending colostomy, umbilical hernia repair on 06/08
admitted to ICU postoperatively, intubated.
Patient had fever,Infectious disease consult, started on zosyn.
Patient was still running fever, added micafungin.
CT chest: New right lower lobe consolidation with air bronchograms, atelectasis versus pneumonia, Possible small bilateral pleural effusions.
CT abdomen/pelvis shows: Small volume fluid in the abdomen, particularly in the left abdomen mildly complex. As this fluid is incompletely included, it cannot be determined whether this totally represents likely free fluid or combination of free
fluid and abnormal focal fluid collection. Additional small abnormal focal fluid collections cannot be excluded on the basis of this markedly limited study
Patient received Lasix.
Difficult extubation, discussion regarding trach
Currently intubated, surgery okay with trickle feeding.
Difficult extubation, ENT consult for trach
06/25
remains intubated.
for trach today.
Assessment/Plan:
Colonic dysmotility/ileus:
- Abdomen remained significantly distended despite multiple medical enemas and subsequent bowel movements
- Upgraded to IMU 06/07, pushed 4 mg neostigmine around 1:30 PM, no significant peristaltic response
- Ultimately required surgical intervention, brought to the OR 06/08 for ex lap with lysis of adhesions and sigmoidectomy with end descending colostomy, decompression of right colon, abdominal washout and umbilical hernia repair
- ICU postoperatively, intubated
- Colorectal surgery following, increased output from colostomy now with brown stool
- Lower fred removed from surgical incision with mucopurulent output, wound packed, cultures obtained, redressed
- IR placed 2 abdominal drains yesterday 06/20 with serosanguineous output, cultures pending
- Continue TPN, holding tube feeds
- Colorectal surgery okay with transitioning anticoagulation to therapeutic Lovenox as needed
- Surgery Okay with trickle feed
Septic shock, requiring pressors:
- This is likely a primary intra-abdominal infection, stool leakage into the abdomen requiring washout, also likely has concomitant pulmonary infection
- Tracheal aspirate from 06/14 growing pansensitive Pseudomonas
- ID following, continuing vancomycin and micafungin, Zosyn switched to meropenem
- Leukocytosis improving, fever curve improving
- Vasopressors as needed, currently on hold
- Precedex discontinued as it was useless and keeping him sedated, continuing sedation with propofol and fentanyl
Acute hypoxic respiratory failure (currently intubated in the ICU postoperatively)
- Continue mechanical ventilation, ETT replaced 06/19 by manager wind
- Persistent copious thick secretions and left lower lobe volume loss
- Underwent bronchoscopy with BAL left lower lobe 06/15 by manager wind, cultures growing Pseudomonas, repeat bronchoscopy with BAL today 06/20 with aspiration of copious secretions
- Continue antimicrobial coverage with micafungin, vancomycin, and meropenem
- Hypertonic nebulized saline 3 times a day with albuterol, aggressive chest PT
- Started Seroquel 50 mg in the morning and 100 mg at night, monitor QTc
- Patient was inadequately sedated with Precedex which has now been discontinued, restarted propofol and fentanyl drips
- Additional Lasix pushes as needed
- Weaning trials as tolerated
- ENT consult for tracheostomy tomorrow
06/25
remains intubated.
for trach today.
paroxismal A-fib/flutter:
- Currently rate controlled, holding home metoprolol, continue home amiodarone 200 mg at night via OGT
- Holding home Xarelto, have been anticoagulating with IV heparin, colorectal surgery okay with transition to therapeutic Lovenox as needed
IDDM:
- Insulin drip.
HFrEF:
- Acute on chronic chronic
- Holding home metoprolol succinate 100 mg
- Lasix pushes as needed, holding spironolactone, monitor daily weights
- No need for afterload reduction due to hypotension
CODE STATUS: Full code
DVT prophylaxis: Heparin drip
Diet: TPN
Disposition: Continue management in the ICU.
remains intubated.
for tracheostomy today
Total time spent on today's encounter was 74 minutes which included time spent in counseling the patient/family regarding diagnosis and treatment plan as listed above, goals of care, and symptom management. Case was discussed with nursing staff,
specialists, and care coordinators/case management. All labs and imaging personally reviewed by me. Remainder the time spent in detailed review of previous records, lab data, imaging, and other medical provider documentation.
Anticipated Discharge: > 48 hours
Subjective/Interval History
-
Date of Service: June 25, 2025
remains intubated, going for trach today.
Objective Data
-
Labs:
Laboratory Results
06/25/25
03:23
WBC 13.3 H
Hgb 7.8 L
Hct 26.2 L
Plt Count 259
Sodium 138
Potassium 4.8
Chloride 102
Carbon Dioxide 35 H
BUN 27 H
Creatinine 0.6 L
Glucose 127 H
Calcium 8.0 L
Vital Signs:
Vital Signs
Temp Pulse Resp BP Pulse Ox
100.2 F 58 16 120/61 97
06/25/25 07:30 06/25/25 08:01 06/25/25 08:01 06/25/25 05:00 06/25/25 08:01
I&O
06/24/25 06/25/25 06/26/25
06:59 06:59 06:59
Intake Total 3107.1 / 3261.2 2915.4 / 2915.4
Output Total 4345 / 4445 3263 / 3263
Balance -1237.9 / -1183.8 -347.6 / -347.6
Physical Exam
-
General: Intubated and Obese
HEENT: Normocephalic, Atraumatic, Moist Mucous Membranes, No Ptosis, PERRLA and Nose Appears Normal
Respiratory: Rales, Rhonchi and Non Labored Respirations
Cardiac: Regular Rhythm and S1/S2
Breast: Deferred by me
GI: Other (Colostomy bag, midline incision clean)
Musculoskeletal: No Clubbing and No Cyanosis
Skin: Warm
Neuro: Sedated (follow commands)
Psych: Other (Sedated)
[2025-06-25 08:36] LABS: Glucose - Point of Care 132 mg/dl (70-99)
--- NOTE | 2025-06-25 08:37 | PN.DE.MGMTRT ---
Insulin Management
- -
06/25/2025: Diabetes Management Follow up
Patient admitted 06/05 with c/o difficulty breathing. Diabetes management consult 06/15. PMH 5 weeks of constipation with abdominal distention, HTN, A-Fib, CHF Prior to admission was taking Lantus 24 units daily with NovoLog 20 units AC and Farxiga 5
mg daily. A1C on admission 7.1%, cr today .5, eGFR > 60.
Patient is currently intubated and sedated. Information obtained from chart and patient nurse and pharmacist. Patient s/p OR 06/08 for lysis of adhesions, sigmoidectomy, with end descending colostomy. Patient for return to OR for trach today,
, 06/25.
Remains on critical care glycemic protocol which was started 06/12, Glucose range 138 to 158. Patient has required 4.5 to 5 units of insulin per hour.
Receiving TPN, trickle feeds turned off @ 5am. Will continue critical care glycemic protocol.
Discussed with nurse. Will cont to follow.
Diabetes History
- -
Type of Diabetes: 2 requiring insulin
Pre-Admission Diabetes Regimen
06/25/25
03:23
Creatinine 0.6 L
Lab Results
Hemoglobin A1c 7.8 % (4.0-5.6) H 06/22/25 03:20
Insulin Pump Settings
IP Diabetes Regimen
06/24/25 06/24/25 06/24/25
08:43 10:51 13:20
Glucose
POC Glucose 144 H 156 H 127 H
06/24/25 06/24/25 06/24/25
16:20 18:25 20:30
Glucose
POC Glucose 133 H 146 H 136 H
06/24/25 06/25/25 06/25/25
22:33 00:26 02:32
Glucose
POC Glucose 153 H 145 H 142 H
06/25/25 06/25/25 06/25/25
03:23 04:32 06:29
Glucose 127 H
POC Glucose 134 H 136 H
06/25/25
08:23
Glucose
POC Glucose 132 H
Meal type: Dinner
Meal type: Lunch
Meal type: Lunch
Patient Education
--- NOTE | 2025-06-25 08:47 | W.PN.CRS1 ---
Today's Communication / Plan
-
trach today
continue TFs and TPN
wound care BID
Assessment/Plan
-
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
obstipation associated with megacolon. WBC 11.[address] showing gaseous distention of the colon, diameter of the sigmoid up to 18 cm in diameter. He received a dose of neostigmine, which failed. He underwent attempt at decompressive sigmoidoscopy,
but encountered too much stool. Due to refractory nature of his issue, we proceeded with surgery.
POD 16 exlap, sigmoidectomy, end-colostomy; iatrogenic spillage of stool - controlled and abdomen washed out, no colonic ischemia or perforation
S/p bronch 06/15 for right-sided mucous plugging
S/p bronch 8/16 for mucus plugging, repeat bronch same day for hemoptysis
s/p IR drains x2 on the right for fluid cllxn, Cx -ngtd
Tmax 101.1, VSS, off pressors
WBC 13.3 (11.2)
�Respiratory failure, c/b mucous plugging, pneumonia
-Appreciate panel raiser operator
-Cont chest PT, pulmonary toilet
� Continue pain control and sedation
�Continue hep drip; okay for therapeutic Lovenox from surgical standpoint
� Continue TPN and trickle feeds
-nutrition recs appreciated but given hyperglycemia will not be increasing dextrose and given high dose of propofol will continue TPN w/o lipids
� Appreciate ID, on Merrem, david
�Septic shock likely due to pneumonia
-Lower portion of abdominal wound open; no evidence of infection; WTD packing into wound twice a day
� Continue Mason, strict I&O's
�Appreciate panel raiser operator and primary
-Trach placement today
Subjective Data
Procedure
06/08/25- Exploratory laparotomy, lysis of adhesions, sigmoidectomy, decompression of right colon, abdominal washout, creation of end descending colostomy, umbilical hernia repair
Subjective Data
Date of Service: June 25, 2025
Patient is intubated and sedated
Objective Data
-
Vital Signs
Temp Pulse Resp BP Pulse Ox
100.2 F 58 16 120/61 97
06/25/25 07:30 06/25/25 08:01 06/25/25 08:01 06/25/25 05:00 06/25/25 08:01
Intake & Output
06/24/25 06/25/25 06/26/25
06:59 06:59 06:59
Intake Total 3107.1 / 3261.2 2915.4 / 2915.4
Output Total 4345 / 4445 3263 / 3263
Balance -1237.9 / -1183.8 -347.6 / -347.6
Intake:
IV fluids (Total) 1598.1 / 1659.2 878.4 / 878.4
Fentanyl gtt 130 / 135 152.0 / 152.0
Insulin 124.5 / 129.0 107.5 / 107.5
Propofol 459.6 / 477.2 516.9 / 516.9
heparin 884 / 918 102 / 102
IV piggybacks 10
TPN/PPN 1044 / 1102 1392 / 1392
Tube feeding 145 / 155 180 / 180
Feeding tube flush amount 310 / 335 425 / 425
Amount instilled into GI Tube ( 40 / 40
Total)
Lamb Sump 40 / 40
Output:
Drain Output (Total) 70 / 70 14 / 14
Right Lower Abdomen Milton- 6 6
Vo
Right Middle Abdomen Milton-
Vo B Placed in IR
Right Upper Abdomen Milton- 0 / 0
Vo A Placed in IR
Urine, Mason 4275 / 4375 3249 / 3249
Lab Results
06/25/25 03:23
06/25/25 03:23
Physical Exam
-
General: Other (Intubated and sedated)
Abdomen: Soft, Non Distended, Non Tender and Other (Lower midline wound with fibrinous material, 1 suture noted, some scant output on gauze pad)
Skin: Warm and Dry
--- NOTE | 2025-06-25 08:49 | PTCARENOTE ---
report received. assessments per work list. patient RASS -1, does not follow simple commands. propofol, fentanyl per work list. monitor nsr with avb. right three lumen picc patent. glycemic per work list. ETT suctions for large amount thick segovia
white secretions. lungs with rhonchi bilaterally, copious oral clear secretions suctioned. abdomen obese, colostomy with moderate amount soft brown yellow stool, budded. ogt placement verified. patent for medications. abdominal dressing in place, jorge
to bulb with scant drainage. irrigated per orders. d/w surgical PAC@ bedside. orders to be placed to insert dobhoff upon return to ICU post trach. anesthesia team at bedside to transport patient to the OR
--- NOTE | 2025-06-25 09:09 | W.PN.ID1 ---
Date of Service
Date of Service: June 25, 2025
Today's Communication
Continue Meropenem for now.
Assessment / Plan
# Purulent peritonitis
# Colonic inertia with megacolon; status post ex lap, decompression, colostomy, stool leakage into the abdomen requiring washout 06/08/2025
# s/p Septic shock
# PNA with Pseudomonas
# Fever persists ? due to Seroquel
# Leukocytosis trending up.
# VDRF, unable to wean. For trach today
- 06/08/25 Exploratory laparotomy, lysis of adhesions, sigmoidectomy, decompression of right colon, abdominal washout, creation of end descending colostomy, umbilical hernia repair
- No OR cx
- Blood cultures neg
- 06/15 s/p bronch with airway clearance; cx Pseudomonas
- 06/[address] a/p: limited study but no obvious abscess; + free fluid in abdomen
- 06/19 Colorectal opened midline abd distal incision. cx cx Pseudomonas, mixed anaerobes
- 06/20 aspiration/drainage of right abdominal collections; serous fluid. cultures neg to date
- completed 10 empiric micafungin
- s/p Vancomycin IV x 6d
- s/p Zosyn(8d) -> continue meropenem (d#8).
- trend temps/wbc
- Pt remains critically ill; on vent
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
HFrEF
HTN
DM
Afib
HLD
Colonic Inertia / Dysmotility
Chronic opioid dependence
Advanced bilateral lower extremity venous insufficiency
Morbid obesity (BMI~43)
Chief Complaint
-: Fever and Other (Purulent peritonitis)
Subjective / Review of Systems
Trach today.
Vital Signs / Physical Exam
Vital Signs
Vital Signs
Temp Pulse Resp BP Pulse Ox
100.2 F 77 23 122/71 98
06/25/25 07:30 06/25/25 09:03 06/25/25 09:03 06/25/25 09:03 06/25/25 09:03
Physical Exam
Constitutional: Acutely Ill and Other (On vent)
Cardiovascular: Regular Rate and S1/S2
Pulmonary: Clear (anterior lungs)
Gastrointestinal: Soft, Non Tender, Non Distended and Other (distal incision wound with serous drainage. Colostomy loose brown stool)
Genito-Urinary: Mason and Clear Urine; Negative CVA Tenderness
Extremities: Venous Insufficiency
Objective Data
Lab Data
Lab Results
06/25/25 03:23
06/25/25 03:23
PT 17.4 Sec (11.4-14.6) H 06/09/25 00:01
INR 1.40 06/09/25 00:01
APTT 106.6 Sec (23.4-35.0) H 06/24/25 04:03
Estimated Creat Clear > 125 ml/min 06/25/25 03:23
Lactic Acid 0.9 mmol/L (0.7-2.0) 06/09/25 00:01
Total Bilirubin 0.4 mg/dl (0.2-1.3) 06/22/25 03:20
AST 50 U/L (17-59) 06/22/25 03:20
ALT 21 U/L (0-50) 06/22/25 03:20
Alkaline Phosphatase 113 U/L (38-126) 06/22/25 03:20
C-Reactive Protein > 270.00 mg/L (0.0-10.00) H 06/11/25 03:22
Most recent labs reviewed.
Micro Results:
06/20/25 16:38 Body Fluid Culture - Preliminary
Peritoneal Fluid Gram Stain - Preliminary
06/19/25 09:59 Wound Culture - Final
Abdomen Pseudomonas aeruginosa
Gram Stain - Final
06/19/25 09:59 Anaerobic Culture - Final
Abdomen
06/20/25 16:34 Body Fluid Culture - Preliminary
Peritoneal Fluid No Growth After 72 Hours
Gram Stain - Preliminary
06/20/25 11:01 Respiratory Culture - Final
Bronch Right Lower Lobe Pseudomonas aeruginosa
Gram Stain - Final
06/20/25 11:01 Acid Fast Bacilli Smear - Preliminary
Bronch Right Lower Lobe Acid Fast Bacilli Culture - Preliminary
06/20/25 11:01 Fungal Culture - Preliminary
Bronch Right Lower Lobe Culture in progress.
Positive cultures are reported as soon as detected.
Final report to follow in four to five weeks.
06/15/25 10:08 Fungal Culture - Preliminary
Bronch Left Lower Lobe Evelyn albicans
06/17/25 13:11 MRSA Screen - Final
Nose No Methicillin Resistant Staphylococcus aureus isolated.
06/13/25 12:07 Blood Culture - Final
Blood/Venous No Growth - Final Report
06/13/25 12:07 Blood Culture - Final
Blood/Venous No Growth - Final Report
06/15/25 10:08 Acid Fast Bacilli Smear - Preliminary
Bronch Left Lower Lobe Acid Fast Bacilli Culture - Preliminary
06/15/25 10:08 Respiratory Culture - Final
Bronch Left Lower Lobe Pseudomonas aeruginosa
Gram Stain - Final
06/14/25 11:22 Respiratory Culture - Final
Tracheal Aspirate Pseudomonas aeruginosa
Gram Stain - Final
06/11/25 09:27 Blood Culture - Final
Blood/Venous No Growth - Final Report
06/11/25 09:59 Blood Culture - Final
Blood/Venous No Growth - Final Report
06/06/25 07:57 MRSA Screen - Final
Nose No Methicillin Resistant Staphylococcus aureus isolated.
Imaging:
06/24/25 CXR: Slightly increased basilar predominant airspace opacities, worse on the left. Findings may be related to pneumonia or worsening atelectasis.
06/18/25 CT c/a/p: Suspected moderate volume mildly complex presumed free fluid in the abdomen, overall increased in volume in comparison to recent prior study, most prominently located in the right subhepatic region, right subdiaphragmatic region
and likely left abdomen/pelvis.
06/16/25 CXR: There is moderate airspace disease in right lower lung field concerning for pneumonia. There is obscuration of the left hemidiaphragm suggesting left lower lobe pneumonia
06/15/25 CXR: No pneumothorax status post bronchoscopy. Progressive homogeneous increased retrocardiac opacity. Suspect mild left perihilar and right infrahilar opacity which could represent atelectasis or pneumonia.
06/13/25 CT a/p: Very limited study. Small volume fluid in the abdomen, particularly in the left abdomen mildly complex. As this fluid is incompletely included, it cannot be determined whether this totally represents likely free fluid or combination
of free fluid and abnormal focal fluid collection. Additional small abnormal focal fluid collections cannot be excluded on the basis of this markedly limited study. Apparent recent prior partial sigmoidectomy with large volume stool seen in the
residual sigmoid colon and rectum.
06/10 CXR: Stable CHF and bibasilar atelectasis and/or pneumonia.
06/08/25 CXR: Diffuse marked colonic dilation. Measurement of caliber of the upper colon is slightly greater then obstruction series of June 07, 2025. Multiple air-fluid levels compatible with stasis. Moderate amount of stool within the inferior
aspect of the right colon as well as within the rectum. No gross evidence for free intraperitoneal air.
06/05/25 CT a/p: Significant gaseous distention of a large portion of the colon. This contributes to limitation of this examination, as the patient cannot be fully included on the [id number] of the CT scanner. If there can be some distal colonic
decompression, repeat scan could be considered, when hopefully the patient could be entirely included on the elubm-cq-otse of the exam. No gross evidence for free intraperitoneal air. Patchy parenchymal opacity within the visualized lower lung, most
likely atelectasis. Pneumonia is a differential consideration, felt to be less likely based on morphologic appearance.
--- NOTE | 2025-06-25 10:39 | W.IMMPOSTOP ---
Surgical Immed Post Op Note
-
Primary Surgeon: Feliz Mojica M.D
Assisting Surgeon: None
Pre-op Diagnosis: Vent dependent resp failure
Post-op Diagnosis: The same
Procedure Performed: Tracheostomy
Anesthesia Type: General
Specimen / Cultures: None
Estimated Blood Loss: 5ml
Complications: None
Operative Findings:Low lying larynx
[2025-06-25 11:05] LABS: Glucose - Point of Care 144 mg/dl (70-99)
--- NOTE | 2025-06-25 11:37 | WOUNDNOTE ---
SACRAL/COCCYX/R BUTTOCKS
--- NOTE | 2025-06-25 11:38 | WOUNDNOTE ---
SACRAL/COCCYX/R BUTTOCKS
--- NOTE | 2025-06-25 11:38 | WOUNDNOTE ---
ABDOMEN (MID LOWER)
--- NOTE | 2025-06-25 11:39 | WOUNDNOTE ---
STOMA (L SIDE ABDOMEN)
--- NOTE | 2025-06-25 11:40 | WOUNDNOTE ---
SACRAL/R BUTTOCKS (with photo flash)
--- NOTE | 2025-06-25 11:40 | WOUNDNOTE ---
[facility] RN note: Patient s/p trach today. Patient turned with help from LAWRENCE Menon, LAWRENCE Johnston and LAWRENCE Calhoun. Patient's sacral/coccyx stage 1 pressure injury (blanchable and non blanchable). Coccyx crease almost open. R buttocks stage 1 pressure
injury same. Patient is high risk for sacral/coccyx pressure injury despite preventative measures in place d/t overall condition, obesity and desaturates with prolonged turns. Stoma pink and functioning for loose brown stool. Peristomal skin intact.
Lower midline abdominal wound packing changed by LAWRENCE Menon, wound pink with some yellow tissue. Colorectal surgeon service following. L lateral calf brown hyperkeratotic skin about the same, no drainage. Dressing changed on L lateral calf.
Silicone border foam applied to R dorsal foot resolving small red ecchymotic area. Assisted LAWRENCE Menon with knee high Tubigrip application. Heels off bed with pillow with air chair cushion on top. Next colostomy appliance change due Sunday or
Sunday. Nursing care assist with routine ostomy appliance changes. Will follow as needed.
--- NOTE | 2025-06-25 11:42 | WOUNDNOTE ---
[facility] RN note: Patient s/p trach today. Patient turned with help from LAWRENCE Menon, LAWRENCE Johnston and LAWRENCE Calhoun. Patient's sacrum blanchable dark dull red. Coccyx crease almost open. R buttocks stage 1 pressure injury same. Patient is high risk for
sacral/coccyx pressure injury despite preventative measures in place d/t overall condition, obesity and desaturates with prolonged turns. Stoma pink and functioning for loose brown stool. Peristomal skin intact. Lower midline abdominal wound packing
changed by LAWRENCE Menon, wound pink with some yellow tissue. Colorectal surgeon service following. L lateral calf brown hyperkeratotic skin about the same, no drainage. Dressing changed on L lateral calf. Silicone border foam applied to R dorsal foot
resolving small red ecchymotic area. Assisted LAWRENCE Menon with knee high Tubigrip application. Heels off bed with pillow with air chair cushion on top. Next colostomy appliance change due Sunday or Sunday. Nursing care assist with routine ostomy
appliance changes. Will follow as needed.
--- NOTE | 2025-06-25 11:48 | PTCARENOTE ---
patient received back from [email or web address]. sedation resumed per laboratory cureman. #[address] extra at bedside[address] compensation [email or web address]. all wound care completed. right nare Tarrant in place from OR. confirmation cxr taken. results pending. restraints
maintained for patient safety
[2025-06-25] MEDS: RELISTOR 12 MG SC (11:55)
[2025-06-25 13:08] LABS: Glucose - Point of Care 155 mg/dl (70-99)
[2025-06-25] MEDS: NOVOLIN R INSULIN INFUSION 100 IV (13:32)
[2025-06-25] MEDS: SUBLIMAZE 50 MCG IV ×3 (13:38→18:11)
--- NOTE | 2025-06-25 13:43 | PTCARENOTE ---
Addendum entered by Lynsey Pete RN 06/25/25 14:30:
report to oncoming RN
Addendum entered by Lynsey Pete RN 06/25/25 13:48:
fentanyl gtt increased per community support specialist. fio2 up to 80% by RT. orders received
Original Note:
patient tachypneic, heart rate 100-112. respiratory rate 30's. trach suctioned for scant secretions. propofol adjustment per work list. fentanyl bolus administered. RT and community support specialist updated by TT. patient spouse at bedside. updated
[2025-06-25 14:07] LABS: B.E. 10.9 mmol/L; HCO3 37.5 mmol/L (21-28); O2 Saturation % 98.9 % (94-98); PCO2 62 mmHg (35-48); PO2 95 mmHg (83-108)
--- NOTE | 2025-06-25 14:30 | PTCARENOTE ---
Received report from radha RN. Assessed patient, documented in shift assessment on worklist.
Patient is presently RASS -3, CPOT 3. Patient appears uncomfortable on ventilator, tearing from eyes and tachypneic (30's). Gave additional bolus of Fentanyl and increased Fentanyl to 100mcg, Propofol to 30 mcg. Pupils 2mm, reactive and equal
bilaterally. Not following commands spontaneously moving hands and feet. Ventilating through #8 Shiley Long, ASV 120%/80% FiO2/12. Lungs coarse throughout. No sputum produced when in-line suctioning. ST on Monitor. RUE TL PICC infusing TPN,
Propofol, Insulin, and Fentanyl gtts. +1 B/L UE and +2 B/L LE, + palpable pulses. Tubigrips on B/L LE. Receiving trickle feeds through R Nare NGT 75cm at 10mL/hour, FWF 24mL/hour. Obese abdomen, three CHRISTINE drains to R-Side, LLQ Colostomy. Hypoactive
bowel sounds. Condom Cath #25 to drainage bag, no urine thus far. Wound care completed by radha RN, documented in worklist. Restraints on appropriately. On continuous lateral rotation therapy.
[2025-06-25 15:17] LABS: Glucose - Point of Care 158 mg/dl (70-99)
[2025-06-25 17:41] LABS: Glucose - Point of Care 158 mg/dl (70-99)
--- NOTE | 2025-06-25 18:00 | PTCARENOTE ---
Assessment largely unchanged from prior besides what is listed below:
Patient has not voided since morales catheter was pulled out. Bladder Scan > 1100. SC for 1200mL at 1730. DTV 23:30-01:30.
[2025-06-25 19:44] LABS: Glucose - Point of Care 132 mg/dl (70-99)
--- NOTE | 2025-06-25 20:00 | PTCARENOTE ---
Pt tolerating vent settings satting at 96%
[2025-06-25] MEDS: Parenteral Nutrition, Central 1350 IV (20:45)
[2025-06-25 20:46] LABS: Glucose - Point of Care 140 mg/dl (70-99)
[2025-06-25 21:43] LABS: Glucose - Point of Care 141 mg/dl (70-99)
[2025-06-25] MEDS: LIPITOR 40 MG TUBE (22:23)
[2025-06-25] MEDS: SEROQUEL 100 MG TUBE (22:23)
[2025-06-25] MEDS: PACERONE 200 MG TUBE (22:23)
[2025-06-25 22:41] LABS: Glucose - Point of Care 144 mg/dl (70-99)
[2025-06-25 23:46] LABS: Glucose - Point of Care 150 mg/dl (70-99)
[2025-06-26] VITALS (23 sets, daily range): BP systolic 106–140; BP diastolic 57–78; BMI 39.4
[2025-06-26 01:46] LABS: Glucose - Point of Care 147 mg/dl (70-99)
[2025-06-26] MEDS: DIPRIVAN 100 IV ×3 (03:19→13:08)
[2025-06-26 03:47] LABS: Glucose - Point of Care 141 mg/dl (70-99)
[2025-06-26 03:55] LABS: Hematocrit 28.5 % (39.0-52.0); Hemoglobin 8.4 g/dL (13.0-18.0); Mean Corp Hgb Conc. 29.5 g/dL (33.0-37.0); Mean Corpuscular Volume 87.2 fL (80.0-94.0); Platelet Count 274 10^3/uL (130-400); Red Cell Dist. Width 15.2 % (11.5-14.5)
[2025-06-26 04:26] LABS: Blood Urea Nitrogen 28 mg/dl (9-20); Calcium 8.5 mg/dl (8.4-10.2); Carbon Dioxide 37 mmol/L (22-30); Chloride 101 mmol/L (98-107); Estimated Creatinine Clearance > 125 ml/min; Glucose 129 mg/dl (70-99); Magnesium 2.3 mg/dl (1.6-2.3); Potassium 5.1 mmol/L (3.5-5.1); Sodium 140 mmol/L (135-145); eGFR > 60.00
[2025-06-26] MEDS: MERREM 500 MG IV ×4 (05:34→23:49)
[2025-06-26] MEDS: TYLENOL ORAL SOLUTION 650 MG TUBE ×4 (05:34→23:49)
[2025-06-26] MEDS: STERILE WATER FOR INJECTION 10 ML IV ×4 (05:34→23:49)
[2025-06-26 05:42] LABS: Glucose - Point of Care 128 mg/dl (70-99)
[2025-06-26] MEDS: SUBLIMAZE 100 IV ×2 (06:24→21:13)
--- NOTE | 2025-06-26 07:16 | W.PN.INTV ---
Today's Communication / Plan
Recommendations
Decrease ASV to 80%, pursue wean as able
Sedation vacation off propofol
Continue antibiotics per ID
Start enoxaparin 40 mg every afternoon tonight follow-up for hemoptysis
Adjust TPN given potassium of 5.1
Add MiraLAX
Assessment
-
Assessment: 64-year-old male with a past medical history of cardiomyopathy, hypertension, DM type II, history of chronic opioid use due to chronic arthritis now on buprenorphine, history of ERASMO, venous insufficiency and chronic back pain who
presented with shortness of breath, abdominal distention. Found to have severe colonic distention. Initially treated with neostigmine, attempted sigmoidoscopy without attempt. Underwent exploratory laparotomy 06/08/2025-developed shock requiring
vasopressors and remained on mechanical ventilation. We were consulted on 06/09/2025.
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
OxyContin/oxycodone,systolic cardiomyopathy.
06/24/2025 Overview: Patient currently intubated, ASV 120%. Persistent fevers noted, FiO2 increased to 90% overnight. Remains on heparin, TPN, propofol and fentanyl. Drainage from CHRISTINE drain as well as from ostomy bag. Additional peritoneal drains
draining serosanguineous fluid. Significant secretions per ET tube, now bloody
Assessment and plan
#1. Acute hypoxemic respiratory failure post laparotomy complicated by VAP of LLL, intubated 06/08, s/p trach 06/25
- Initially due to abdominal distention requiring intubation, mechanical ventilation, subsequently LLL
- Left lower lobe dense consolidation, copious ET tube secretions noted, improved after Bronchoscopic lavage, again worse 06/19
- Continue broad-spectrum antibiotics, s/p bronchoscopy and BAL 06/16 with extensive suctioning of thick mucoid secretions in LLL. BAL growing Pseudomonas/Yeast
- Repeat bronchoscopy 06/20 with extensive clearing of thick secretions from both lower lobes. BAL negative
- CXR as of 06/26 with significant improvement in aeration
- Worsening oxygenation required increase of PEEP to 12, FiO2 to 90%, now weaned down to 60%
- Status post tracheostomy 06/25
- Decreased to ASV 80% and attempt to wean off propofol
#1a. Difficulty ventilator weaning.
- Patient continues to fail attempt at weaning.
- Did not respond to Precedex. Wean off propofol today and attempt wean as able
- Body habitus, excessive secretions, severe pneumonia as well as intra-abdominal processes are contributing to failure to liberate from mechanical ventilation
- status post tracheostomy 06/25
#2. Septic shock suspected-source likely intraperitoneal and LLL pneumonia
- Continues to need pressor support, norepinephrine weaned off
- Continue broad-spectrum antibiotic, status post antifungal per infectious disease service, micafungin. Zosyn switched to meropenem per ID service, also on vancomycin, now on meropenem alone
- BAL culture showing Pseudomonas
- 06/18, CT chest abdomen pelvis pursued, fluid noted in the abdomen.
- Purulent discharge from inferior margin of surgical site, bedside drainage on 06/19, sent for cultures. Growing Pseudomonas
- 06/20, IR guided peritoneal drains x 2 placed for intra-abdominal collections noted on imaging, fluid studies pending serosanguineous fluid noted
- persistent fevers noted. Questionable drug fever?. Patient remains on broad-spectrum antibiotics
- Will hold Seroquel after 06/26 if fever does not improve
- Mason catheter has been discontinued. Straight cath for now
#3. Pseudoobstruction with megacolon, failed conservative management, s/p ex lap
- S/p ex lap, sigmoidectomy and end colostomy, iatrogenic spillage of stool, peritonitis, umbilical hernia repair, 06/08/2025
- Patient was on IV meropenem, vancomycin and micafungin, now on meropenem alone
- Small-volume stool output noted in the ostomy bag. Add MiraLAX, reviewed with surgery. Continue with Restalor
- TPN infusing. Plans for trickle feeds noted per colorectal surgery to start 06/22, continuous for now no change
- NG tube in place
#4. Acute on chronic heart failure with reduced ejection fraction, LVEF 35%, Stage I diastolic dysfunction
- Patient has been diuresing well with intermittent Lasix
- Weight is down 13 kg since admission
- Will give additional dose of Lasix given desaturation with supine position
#5. Paroxysmal atrial flutter.
- Patient on outpatient Xarelto
- Heparin infusion, will hold given increased bloody tracheal secretions for now. R now improved off heparin
- Will start enoxaparin every afternoon tonight. Reviewed with risk of being off anticoagulation. Will consider going to every 12 dosing thereafter
- History of cardioversion in January 2025
- Has been on amiodarone
- LFTs normal as of 06/22
#6. Pulmonary hypertension, estimated pulmonary artery systolic pressure 50-55
- Primarily group II PH related to underlying congestive heart failure
- Continue to optimize intravascular volume, keep saturations above 90%, no indication for vasodilator therapy
- Additional dose of Lasix
#7. DM type II with Hyperglycemia
- Continue glycemic protocol as indicated
#8. Prolonged QTc
- Improved after replacing potassium and magnesium
- Tolerating Seroquel well, added 50 mg daytime dose in addition to nightly 100, EKG being followed
- Will stop Seroquel given fevers if persists after 06/26.
Other medical diagnoses:
#Morbid obesity
#Venous deficiency
#History of ERASMO
#Chronic pain management due to arthritis currently on buprenorphine in an effort to wean off of OxyContin/oxycodone
-
DVT prophylaxis: -heparin infusion
GI prophylaxis, pantoprazole
-
Prognosis is guarded
-
Critical care statement: A total of 35 minutes of critical care time was provided for this patient today. This includes management of unstable vital signs, evaluation of the patient at bedside, reviewing the patient's pertinent medical records
including ventilator settings, arterial blood gases, radiographs, microbiology, laboratory evaluations and discussion with primary team, critical care nursing, and respiratory therapy.
updated at bedside 06/25 post tracheostomy

Data reviewed:
Chest x-ray 06/08/2025: Reviewed, ET tube in place. Left lower lobe airspace disease. Cardiomegaly
-
CT abdomen pelvis 06/05/2025:
The patient is significantly distended, and much of the abdominal and upper pelvic soft tissues extending anterior and to the left of the [id number], which limits evaluation, as it becomes difficult to confidently follow the loops of bowel.
There is distention of the rectum with air and stool, measuring 9.3 cm in diameter. There is marked distention of the sigmoid colon which extends into the right and central upper abdomen, with the sigmoid colon measuring up to 18 cm in diameter. The
sigmoid colon contains a moderate to large amount of stool, mainly inferiorly. There appears to be moderate distention of the rest of the visualized colon.
Small bowel loops are present, and do not appear to be significantly distended, similar appearance to prior examination.
Of note, the cecum cannot be confidently identified on the present examination
No gross evidence of free intraperitoneal air.
There is patchy parenchymal opacity within the visualized lower lungs, most likely atelectasis. A component of pneumonia is also possible, although felt to be less likely. There is no significant pleural effusion and no significant pericardial
effusion.
Coronary artery calcifications are present. Please correlate with symptoms of and risk factors for coronary artery disease, with further workup as clinically appropriate.
Of note, the stomach is not distended.
Subjective Dataa
Subjective Data
Date of Service:
Date of Service: June 26, 2025
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
Subjective:
Patient remains critically ill, ventilator dependent. Fever curve seems to be improved, still with low-grade fever. Secretions have improved significantly. Status post tracheostomy 06/25. Required increased sedation overnight.
Objective Data
Data Reviewed
Vital Signs / I&O / Oxygen:
Vital Signs
Temp Pulse Resp BP Pulse Ox
100.7 F H 80 15 117/63 97
06/26/25 04:52 06/26/25 06:00 06/26/25 06:00 06/26/25 06:00 06/26/25 06:00
Intake and Output
06/25/25 06/26/25 06/27/25
06:59 06:59 06:59
Intake Total 2915.4 / 3007.5 2901.9 / 2901.9
Output Total 3263 / 3363 3758 / 3758
Balance -347.6 / -355.5 -856.1 / -856.1
SaO2 [ASV] 96
SaO2 [A/C] 95
SaO2 97
Nasal Cannula flow liters per 3
minute
Physical Exam
General: Comfortable (Intermittent rapid shallow breathing), Other (Large neck) and Other (Right upper extremity PICC)
HEENT: Normocephalic and Anicteric
Cardiovascular: S1-S2, Regular Rhythm, Murmur (n) and Peripheral Edema (1+, lower extremity stockings in place)
Respiratory: Wheeze (n), Crackles (Mild bibasilar), Rhonchi (Few scattered), Non-Labored Respirations and Other (Tracheostomy)
GI: Soft, Distended (Morbidly obese), Other (Colostomy with stool output. Multiple CHRISTINE drains with serous drainage, inferior portion of incision open with dressing) and Other (NG tube in place minimal drainage)
Neurology: Other (Patient does spontaneously move extremities, follows commands during sedation vacation, moves all extremities)
Skin: Warm and Other (Mid abdominal incision with fred, inferior portion open, CHRISTINE drainage serous)
Labs/Micro/Reports
Lab Data
06/26/25 03:42
06/26/25 03:42
Laboratory Results
06/25/25
13:54
pH 7.39
pCO2 62 H
pO2 95
HCO3 37.5 H
O2 Delivery Level
Microbiology
06/20/25 16:38 Peritoneal Fluid Body Fluid Culture - Final
06/20/25 16:38 Peritoneal Fluid Gram Stain - Final
06/20/25 16:34 Peritoneal Fluid Body Fluid Culture - Final
Pseudomonas aeruginosa
06/20/25 16:34 Peritoneal Fluid Gram Stain - Final
06/19/25 09:59 Abdomen Wound Culture - Final
Pseudomonas aeruginosa
06/19/25 09:59 Abdomen Gram Stain - Final
06/19/25 09:59 Abdomen Anaerobic Culture - Final
06/20/25 11:01 Bronch Right Lower Lobe Respiratory Culture - Final
Pseudomonas aeruginosa
06/20/25 11:01 Bronch Right Lower Lobe Gram Stain - Final
06/20/25 11:01 Bronch Right Lower Lobe Acid Fast Bacilli Smear - Preliminary
06/20/25 11:01 Bronch Right Lower Lobe Acid Fast Bacilli Culture - Preliminary
[2025-06-26] MEDS: VENTOLIN NEBULES 2.5 MG INH ×2 (07:19→18:08)
[2025-06-26] MEDS: MUCOMYST 10% 2 ML INH (07:19)
[2025-06-26 07:37] LABS: Glucose - Point of Care 127 mg/dl (70-99)
[2025-06-26] MEDS: SEROQUEL 50 MG TUBE (07:39)
[2025-06-26] MEDS: SUBUTEX 4 MG SL (07:39)
[2025-06-26] MEDS: PROTONIX IV 40 MG IV (07:40)
[2025-06-26] MEDS: NSS (PRESERVATIVE FREE) 10 ML IV (07:40)
[2025-06-26] MEDS: DESENEX/MITRAZOL/ZEASORB 1 APPLIC TOPICAL ×2 (07:59→19:09)
[2025-06-26] MEDS: HYDROPHOR 1 APPLIC TOPICAL (07:59)
--- NOTE | 2025-06-26 08:02 | PN.DE.MGMTRT ---
Insulin Management
- -
06/26/2025: Diabetes Management Follow up
Patient admitted 06/05 with c/o difficulty breathing. Diabetes management consult 06/15. PMH 5 weeks of constipation with abdominal distention, HTN, A-Fib, CHF Prior to admission was taking Lantus 24 units daily with NovoLog 20 units AC and Farxiga 5
mg daily. A1C on admission 7.1%, cr today 0.5, eGFR > 60.
Patient remains intubated and sedated. Information obtained from chart and patient nurse and pharmacist. Patient s/p OR 06/08 for lysis of adhesions, sigmoidectomy, with end descending colostomy and s/p tracheostomy yesterday.
Remains on critical care glycemic protocol which was started 06/12, Glucose range 127 to 147. Patient has required 4.5 to 5 units of insulin per hour.
Receiving TPN and trickle feeds @ 10cc/hr. Will continue critical care glycemic protocol.
Discussed with nurse. Will cont to follow.
Diabetes History
- -
Type of Diabetes: 2 requiring insulin
Pre-Admission Diabetes Regimen
06/26/25
03:42
Creatinine 0.5 L
Lab Results
Hemoglobin A1c 7.8 % (4.0-5.6) H 06/22/25 03:20
Insulin Pump Settings
IP Diabetes Regimen
06/25/25 06/25/25 06/25/25
08:23 10:54 12:57
Glucose
POC Glucose 132 H 144 H 155 H
06/25/25 06/25/25 06/25/25
15:06 17:20 19:32
Glucose
POC Glucose 158 H 158 H 132 H
06/25/25 06/25/25 06/25/25
20:29 21:31 22:30
Glucose
POC Glucose 140 H 141 H 144 H
06/25/25 06/26/25 06/26/25
23:34 01:34 03:36
Glucose
POC Glucose 150 H 147 H 141 H
06/26/25 06/26/25 06/26/25
03:42 05:31 07:26
Glucose 129 H
POC Glucose 128 H 127 H
Patient Education
[2025-06-26] MEDS: RELISTOR 12 MG SC (08:12)
--- NOTE | 2025-06-26 08:28 | W.PN.CRS1 ---
Documented by User: Corine Mcduffie PA-C 06/26/25 14:51
Today's Communication / Plan
-
tpn
continue tfs @10ml/hr for today, will re-eval tomorrow
add santyl
Assessment/Plan
-
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
obstipation associated with megacolon. WBC 11.[address] showing gaseous distention of the colon, diameter of the sigmoid up to 18 cm in diameter. He received a dose of neostigmine, which failed. He underwent attempt at decompressive sigmoidoscopy,
but encountered too much stool. Due to refractory nature of his issue, we proceeded with surgery.
POD 16 exlap, sigmoidectomy, end-colostomy; iatrogenic spillage of stool - controlled and abdomen washed out, no colonic ischemia or perforation
S/p bronch 8/ for right-sided mucous plugging
S/p bronch 8/16 for mucus plugging, repeat bronch same day for hemoptysis
s/p IR drains x2 on the right for fluid cllxn, Cx -ngtd
s/p trach peg 8.21
Tmax 100.7, VSS, off pressors
WBC 14.8 (13.3)
�Respiratory failure, c/b mucous plugging, pneumonia
-Appreciate customer account coordinator
-Cont chest PT, pulmonary toilet
-Weaning o2 s/p trach
� Continue pain control and sedation
�Continue hep drip; okay for therapeutic Lovenox from surgical standpoint
� Continue TPN and trickle feeds
-nutrition recs appreciated but given hyperglycemia will not be increasing dextrose and given high dose of propofol will continue TPN w/o lipids
-Patient with some residuals today (150ml) and no ostomy output since OR yesterday. Will keep on TFs at 10ml/hr today. If improving tomorrow, will slowly titrate TFs up.
� Appreciate ID, on Merrem, david
�Septic shock likely due to pneumonia
-Lower portion of abdominal wound open; no evidence of infection; Dry packing twice a day. Santyl daily.
- Will start to plan for peg as soon as early next week - to discuss with general surgery
� Continue Mason, strict I&O's
�Appreciate customer account coordinator and primary
-I updated his , Bernie, via phone
Subjective Data
Procedure
06/08/25- Exploratory laparotomy, lysis of adhesions, sigmoidectomy, decompression of right colon, abdominal washout, creation of end descending colostomy, umbilical hernia repair
Subjective Data
Date of Service: June 26, 2025
Patient is intubated and sedated.
Objective Data
-
Vital Signs
Temp Pulse Resp BP Pulse Ox
100.7 F H 78 18 118/67 98
06/26/25 07:27 06/26/25 07:25 06/26/25 07:25 06/26/25 07:00 06/26/25 07:27
Intake & Output
06/25/25 06/26/25 06/27/25
06:59 06:59 06:59
Intake Total 2915.4 / 3007.5 2901.9 / 2901.9
Output Total 3263 / 3363 3758 / 3758
Balance -347.6 / -355.5 -856.1 / -856.1
Intake:
IV fluids (Total) 878.4 / 912.5 832.9 / 832.9
Fentanyl gtt 152.0 / 159.5 187.5 / 187.5
Insulin 107.5 / 112.0 106.5 / 106.5
Propofol 516.9 / 539.0 538.9 / 538.9
heparin 102 / 102
TPN/PPN 1392 / 1450 1314 / 1314
Tube feeding 180 / 180 180 / 180
Feeding tube flush amount 425 / 425 525 / 525
Amount instilled into Drain (
Total)
Right Middle Abdomen [place]- 10
Vo B Placed in IR
Right Upper Abdomen [place]-
Vo A Placed in IR
Amount instilled into GI Tube (
Total)
[place] Sump
Output:
Drain Output (Total)
Right Lower Abdomen [place]- 6
Vo
Right Middle Abdomen [place]-
Vo B Placed in IR
Right Upper Abdomen [place]- 0 / 0 0 / 0
Vo A Placed in IR
Urine, Mason 3249 / 3349 475 / 475
Urine, Voided 0 / 0
Straight cath output 3250 / 3250
Lab Results
06/26/25 03:42
06/26/25 03:42
Physical Exam
-
General: Other (intubated and sedated)
Abdomen: Other (midline incision with fibrinous material, no active bleeding, one suture visible, fascia down in lower portion, IR drains in place - serous, low output)
Skin: Warm and Dry

Documented by User: Jl Pierre MD 06/26/25 21:30
Assessment/Plan
-
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
obstipation associated with megacolon. WBC 11.[address] showing gaseous distention of the colon, diameter of the sigmoid up to 18 cm in diameter. He received a dose of neostigmine, which failed. He underwent attempt at decompressive sigmoidoscopy,
but encountered too much stool. Due to refractory nature of his issue, we proceeded with surgery.
POD 16 exlap, sigmoidectomy, end-colostomy; iatrogenic spillage of stool - controlled and abdomen washed out, no colonic ischemia or perforation
S/p bronch 8/ for right-sided mucous plugging
S/p bronch 8/16 for mucus plugging, repeat bronch same day for hemoptysis
s/p IR drains x2 on the right for fluid cllxn, Cx -ngtd
s/p trach 8.21
Tmax 100.7, VSS, off pressors
WBC 14.8 (13.3)
�Respiratory failure, c/b mucous plugging, pneumonia
-Appreciate customer account coordinator
-Cont chest PT, pulmonary toilet
-Weaning o2 s/p trach
� Continue pain control and sedation
�Continue hep drip; okay for therapeutic Lovenox from surgical standpoint
� Continue TPN and trickle feeds
-nutrition recs appreciated but given hyperglycemia will not be increasing dextrose and given high dose of propofol will continue TPN w/o lipids
-Patient with some residuals today (150ml) and no ostomy output since OR yesterday. Will keep on TFs at 10ml/hr today. If improving tomorrow, will slowly titrate TFs up.
� Appreciate ID, on Merrem, david
�Septic shock likely due to pneumonia
-Lower portion of abdominal wound open; no evidence of infection; Dry packing twice a day. Santyl daily.
- Will start to plan for peg as soon as early next week - to discuss with general surgery
� Continue Mason, strict I&O's
�Appreciate customer account coordinator and primary
-I updated his , Bernie, via phone
--- NOTE | 2025-06-26 09:08 | W.PN.ID1 ---
Date of Service
Date of Service: June 26, 2025
Today's Communication
Continue meropenem.
Assessment / Plan
# Purulent peritonitis
# Colonic inertia with megacolon; status post ex lap, decompression, colostomy, stool leakage into the abdomen requiring washout 06/08/2025
# s/p Septic shock
# PNA with Pseudomonas
# Fever persists ? due to Seroquel
# Leukocytosis trending up.
# VDRF s/p trach06/25/25
- 06/08/25 Exploratory laparotomy, lysis of adhesions, sigmoidectomy, decompression of right colon, abdominal washout, creation of end descending colostomy, umbilical hernia repair
- No OR cx
- Blood cultures neg
- 06/15 s/p bronch with airway clearance; cx Pseudomonas
- 06/[address] a/p: limited study but no obvious abscess; + free fluid in abdomen
- 06/19 Colorectal opened midline abd distal incision. cx cx Pseudomonas, mixed anaerobes
- 06/20 aspiration/drainage of right abdominal collections; serous fluid. cultures neg
- completed 10 empiric micafungin
- s/p Vancomycin IV x 6d
- s/p Zosyn(8d) -> continue meropenem (d#9).
- Planning to dc seroquel, per Curve Cleaner.
- trend temps/wbc
- Pt remains critically ill; on vent
# Conditions VP RHEUMATOLOGY
HFrEF
HTN
DM
Afib
HLD
Colonic Inertia / Dysmotility
Chronic opioid dependence
Advanced bilateral lower extremity venous insufficiency
Morbid obesity (BMI~43)
Chief Complaint
-: Fever and Other (Purulent peritonitis)
Subjective / Review of Systems
Trach on vent.
Vital Signs / Physical Exam
Vital Signs
Vital Signs
Temp Pulse Resp BP Pulse Ox
100.7 F H 78 18 118/67 98
06/26/25 07:27 06/26/25 07:25 06/26/25 07:25 06/26/25 07:00 06/26/25 07:27
Physical Exam
Constitutional: Acutely Ill and Other (On vent)
Cardiovascular: Regular Rate and S1/S2
Pulmonary: Coarse
Gastrointestinal: Soft, Non Tender, Non Distended and Other (distal incision wound with serous drainage. Colostomy loose brown stool)
Extremities: Venous Insufficiency
Objective Data
Lab Data
Lab Results
06/26/25 03:42
06/26/25 03:42
PT 17.4 Sec (11.4-14.6) H 06/09/25 00:01
INR 1.40 06/09/25 00:01
APTT 106.6 Sec (23.4-35.0) H 06/24/25 04:03
Estimated Creat Clear > 125 ml/min 06/26/25 03:42
Lactic Acid 0.9 mmol/L (0.7-2.0) 06/09/25 00:01
Total Bilirubin 0.4 mg/dl (0.2-1.3) 06/22/25 03:20
AST 50 U/L (17-59) 06/22/25 03:20
ALT 21 U/L (0-50) 06/22/25 03:20
Alkaline Phosphatase 113 U/L (38-126) 06/22/25 03:20
C-Reactive Protein > 270.00 mg/L (0.0-10.00) H 06/11/25 03:22
Most recent labs reviewed.
Micro Results:
06/20/25 16:38 Body Fluid Culture - Final
Peritoneal Fluid Gram Stain - Final
06/20/25 16:34 Body Fluid Culture - Final
Peritoneal Fluid Pseudomonas aeruginosa
Gram Stain - Final
06/19/25 09:59 Wound Culture - Final
Abdomen Pseudomonas aeruginosa
Gram Stain - Final
06/19/25 09:59 Anaerobic Culture - Final
Abdomen
06/20/25 11:01 Respiratory Culture - Final
Bronch Right Lower Lobe Pseudomonas aeruginosa
Gram Stain - Final
06/20/25 11:01 Acid Fast Bacilli Smear - Preliminary
Bronch Right Lower Lobe Acid Fast Bacilli Culture - Preliminary
06/20/25 11:01 Fungal Culture - Preliminary
Bronch Right Lower Lobe Culture in progress.
Positive cultures are reported as soon as detected.
Final report to follow in four to five weeks.
06/15/25 10:08 Fungal Culture - Preliminary
Bronch Left Lower Lobe Evelyn albicans
06/17/25 13:11 MRSA Screen - Final
Nose No Methicillin Resistant Staphylococcus aureus isolated.
06/13/25 12:07 Blood Culture - Final
Blood/Venous No Growth - Final Report
06/13/25 12:07 Blood Culture - Final
Blood/Venous No Growth - Final Report
06/15/25 10:08 Acid Fast Bacilli Smear - Preliminary
Bronch Left Lower Lobe Acid Fast Bacilli Culture - Preliminary
06/15/25 10:08 Respiratory Culture - Final
Bronch Left Lower Lobe Pseudomonas aeruginosa
Gram Stain - Final
06/14/25 11:22 Respiratory Culture - Final
Tracheal Aspirate Pseudomonas aeruginosa
Gram Stain - Final
06/11/25 09:27 Blood Culture - Final
Blood/Venous No Growth - Final Report
06/11/25 09:59 Blood Culture - Final
Blood/Venous No Growth - Final Report
06/06/25 07:57 MRSA Screen - Final
Nose No Methicillin Resistant Staphylococcus aureus isolated.
Imaging:
06/24/25 CXR: Slightly increased basilar predominant airspace opacities, worse on the left. Findings may be related to pneumonia or worsening atelectasis.
06/18/25 CT c/a/p: Suspected moderate volume mildly complex presumed free fluid in the abdomen, overall increased in volume in comparison to recent prior study, most prominently located in the right subhepatic region, right subdiaphragmatic region
and likely left abdomen/pelvis.
06/16/25 CXR: There is moderate airspace disease in right lower lung field concerning for pneumonia. There is obscuration of the left hemidiaphragm suggesting left lower lobe pneumonia
06/15/25 CXR: No pneumothorax status post bronchoscopy. Progressive homogeneous increased retrocardiac opacity. Suspect mild left perihilar and right infrahilar opacity which could represent atelectasis or pneumonia.
06/13/25 CT a/p: Very limited study. Small volume fluid in the abdomen, particularly in the left abdomen mildly complex. As this fluid is incompletely included, it cannot be determined whether this totally represents likely free fluid or combination
of free fluid and abnormal focal fluid collection. Additional small abnormal focal fluid collections cannot be excluded on the basis of this markedly limited study. Apparent recent prior partial sigmoidectomy with large volume stool seen in the
residual sigmoid colon and rectum.
06/10 CXR: Stable CHF and bibasilar atelectasis and/or pneumonia.
06/08/25 CXR: Diffuse marked colonic dilation. Measurement of caliber of the upper colon is slightly greater then obstruction series of June 07, 2025. Multiple air-fluid levels compatible with stasis. Moderate amount of stool within the inferior
aspect of the right colon as well as within the rectum. No gross evidence for free intraperitoneal air.
06/05/25 CT a/p: Significant gaseous distention of a large portion of the colon. This contributes to limitation of this examination, as the patient cannot be fully included on the [id number] of the CT scanner. If there can be some distal colonic
decompression, repeat scan could be considered, when hopefully the patient could be entirely included on the [id number] of the exam. No gross evidence for free intraperitoneal air. Patchy parenchymal opacity within the visualized lower lung, most
likely atelectasis. Pneumonia is a differential consideration, felt to be less likely based on morphologic appearance.
Care Review
Plan reviewed with: Physician (Dr. Stevens)
--- NOTE | 2025-06-26 09:10 | PTCARENOTE ---
report received, assessments per work list. sedation per work list. #8 shilley to vent. lungs with coarse diminished breath sounds bilaterally. vent oxygen wean by RT. ngt placement verified. tube feeds per orders. no stool in ostomy. surgeon at
bedside, orders received for santyl. wound care provided. reviewed with handbag designer at bedside. plan for sedation vacation this am. rotation percussion per orders
[2025-06-26 09:47] LABS: Glucose - Point of Care 137 mg/dl (70-99)
[2025-06-26] MEDS: SANTYL OINTMENT 1 APPLIC TOPICAL (10:18)
--- NOTE | 2025-06-26 10:47 | PTCARENOTE ---
patient placed on sedation vacation. ASV decreased to 80%. patient awake, follows commands. bladder scan and straight cath per orders. Per distribution warehouse manager, continue this protocol another 24 hours
[2025-06-26] MEDS: NOVOLIN R INSULIN INFUSION 100 IV (10:48)
--- NOTE | 2025-06-26 11:34 | W.PN.ENT ---
Today's Communication
-
Doing well POD 1 trach. Routine trach care. ENT to cut sutures between POD 3-5.
Impression / Plan
-
The patient is a 64 yoM with VDRF now POD 1 s/p tracheostomy. The trach looks good, no bleeding and ventilating well. Sedation wean per ICU. ENT will cut sutures between POD3-5. OK for routine suctioning Q1hr and PRN.
Subjective Data
-
The patient is POD s/p tracheostomy for VDRF. No trach issues o/n.
Objective Data
-
Vital Signs
Temp Pulse Resp BP Pulse Ox
100.3 F 94 26 135/72 95
06/26/25 11:23 06/26/25 11:00 06/26/25 11:00 06/26/25 11:00 06/26/25 11:12
Intake & Output
06/25/25 06/26/25 06/27/25
06:59 06:59 06:59
Intake:
IV fluids (Total) 878.4 / 912.5 832.9 / 866.5 146.9 / 146.9
Fentanyl gtt 152.0 / 159.5 187.5 / 195.0 37.5 / 37.5
Insulin 107.5 / 112.0 106.5 / 110.5 21.0 / 21.0
Propofol 516.9 / 539.0 538.9 / 561.0 88.4 / 88.4
heparin 102 / 102
TPN/PPN 1392 / 1450 1314 / 1370 280 / 280
Tube feeding 180 / 180 180 / 190 50 / 50
Feeding tube flush amount 425 / 425 525 / 550 125 / 125
Amount instilled into Drain ( 20 20
Total)
Right Middle Abdomen [place]-
Vo B Placed in IR
Right Upper Abdomen [place]-
Vo A Placed in IR
Amount instilled into GI Tube (
Total)
[place] Sump
Output:
Drain Output (Total)
Right Lower Abdomen [place]-
Vo
Right Middle Abdomen [place]-
Vo B Placed in IR
Right Upper Abdomen [place]- 0 / 0 0 / 0
Vo A Placed in IR
Urine, Mason 3249 / 3349 475 / 475
Urine, Voided 0 / 0 0 / 0
Straight cath output 3250 / 3250 600 / 600
Lab Results
06/26/25 03:42
06/26/25 03:42
PT 17.4 Sec (11.4-14.6) H 06/09/25 00:01
INR 1.40 06/09/25 00:01
APTT 106.6 Sec (23.4-35.0) H 06/24/25 04:03
Calcium 8.5 mg/dl (8.4-10.2) 06/26/25 03:42
Phosphorus 2.6 mg/dl (2.5-4.5) 06/22/25 03:20
Magnesium 2.3 mg/dl (1.6-2.3) 06/26/25 03:42
Total Bilirubin 0.4 mg/dl (0.2-1.3) 06/22/25 03:20
Direct Bilirubin 0.4 mg/dl (0.0-0.4) 06/15/25 04:25
AST 50 U/L (17-59) 06/22/25 03:20
ALT 21 U/L (0-50) 06/22/25 03:20
Alkaline Phosphatase 113 U/L (38-126) 06/22/25 03:20
Triglycerides 104 mg/dl (10-149) 06/24/25 04:03
Lipase 37 U/L (23-300) 06/05/25 20:51
TSH 1.29 uIU/ml (0.47-4.68) 06/10/25 04:19
Urine Color Yellow 06/11/25 09:27
Urine Clarity Clear (Clear) 06/11/25 09:27
Urine pH 6.0 (5.0-9.0) 06/11/25 09:27
Ur Specific [place] 1.015 (<1.030) 06/11/25 09:27
Urine Ketones 3+ (Negative) A 06/11/25 09:27
Urine Occult Blood 3+ (Negative) A 06/11/25 09:27
Physical Exam
-
Sedated
Trach in place with sutures, no bleeding, #8cuffed D-XLT
[2025-06-26 11:46] LABS: Glucose - Point of Care 159 mg/dl (70-99)
--- NOTE | 2025-06-26 12:17 | PTCARENOTE ---
patient reassessed, becoming more anxious. restless and noncooperative with care. denies pain. propofol resumed per work list. when trach suctioned post percussion, large amount large [place] bloody tinged mucous suctioned from mouth. upper CHRISTINE not
holding suction(surgeon updated re this at bedside in the am rounds). still no output from ostomy. bladder scan and straight cath per work list. per archaeology professor, to continue straight cath protocol an additional 24 hours
[2025-06-26] MEDS: MIRALAX 17 GRAMS TUBE ×2 (13:12→19:09)
[2025-06-26 13:33] LABS: Glucose - Point of Care 137 mg/dl (70-99)
--- NOTE | 2025-06-26 14:23 | W.PN.HOSP.TC ---
Today's Communication/Plan
-
Status post trach, continue trach care.
Continue to biotic meropenem.
TPN/tube feed
Assessment / Plan
Assessment / Plan
Impression:
Mr. Knapp is a 64-year-old male with medical history of HFpEF, A-fib/flutter, IDDM, obesity, chronic pain with subsequent opioid dependence, and chronic constipation with colonic dysmotility who presented with shortness of breath, abdominal
bloating and discomfort, constipation. His last bowel movement was 2 weeks prior to arrival. He is having increasing difficulty breathing due to worsening abdominal distention. He has had multiple similar episodes since September 2024 and has
previously required decompression. He has been treated with enemas and neostigmine previously. Abdominal imaging showed significant colonic distention with air-filled loops of bowel. He also had patchy parenchymal opacities within the mid to
lower lungs. He was mildly hypoxic and has been started on antibiotics. He has remained afebrile with a mild leukocytosis of just over 12,000. He has been admitted for further evaluation and management.
Seen by GI, failed neostigmine, enema, status post nonsuccessful decompressive flexible sigmoidoscopy.
Surgery team consulted.
s/p Exploratory laparotomy, lysis of adhesions, sigmoidectomy, decompression of right colon, abdominal washout, creation of end descending colostomy, umbilical hernia repair on 06/08
admitted to ICU postoperatively, intubated.
Patient had fever,Infectious disease consult, started on zosyn.
Patient was still running fever, added micafungin.
CT chest: New right lower lobe consolidation with air bronchograms, atelectasis versus pneumonia, Possible small bilateral pleural effusions.
CT abdomen/pelvis shows: Small volume fluid in the abdomen, particularly in the left abdomen mildly complex. As this fluid is incompletely included, it cannot be determined whether this totally represents likely free fluid or combination of free
fluid and abnormal focal fluid collection. Additional small abnormal focal fluid collections cannot be excluded on the basis of this markedly limited study
Patient received Lasix.
Difficult extubation, discussion regarding trach
Currently intubated, surgery okay with trickle feeding.
Difficult extubation, ENT consult for trach
06/25
remains intubated.
for trach today.
06/26
S/p trach
Assessment/Plan:
Colonic dysmotility/ileus:
- Abdomen remained significantly distended despite multiple medical enemas and subsequent bowel movements
- Upgraded to IMU 06/07, pushed 4 mg neostigmine around 1:30 PM, no significant peristaltic response
- Ultimately required surgical intervention, brought to the OR 06/08 for ex lap with lysis of adhesions and sigmoidectomy with end descending colostomy, decompression of right colon, abdominal washout and umbilical hernia repair
- ICU postoperatively, intubated
- Colorectal surgery following, increased output from colostomy now with brown stool
- Lower fred removed from surgical incision with mucopurulent output, wound packed, cultures obtained, redressed
- IR placed 2 abdominal drains yesterday 06/20 with serosanguineous output, cultures pending
- Continue TPN, holding tube feeds
- Colorectal surgery okay with transitioning anticoagulation to therapeutic Lovenox as needed
- Surgery Okay with trickle feed
Septic shock, requiring pressors:
- This is likely a primary intra-abdominal infection, stool leakage into the abdomen requiring washout, also likely has concomitant pulmonary infection
- Tracheal aspirate from 06/14 growing pansensitive Pseudomonas
- ID following, continuing vancomycin and micafungin, Zosyn switched to meropenem
- Leukocytosis improving, fever curve improving
- Vasopressors as needed, currently on hold
- Precedex discontinued as it was useless and keeping him sedated, continuing sedation with propofol and fentanyl
Acute hypoxic respiratory failure (currently intubated in the ICU postoperatively)
- Continue mechanical ventilation, ETT replaced 06/19 by carry all driver
- Persistent copious thick secretions and left lower lobe volume loss
- Underwent bronchoscopy with BAL left lower lobe 06/15 by carry all driver, cultures growing Pseudomonas, repeat bronchoscopy with BAL today 06/20 with aspiration of copious secretions
- Continue antimicrobial coverage with micafungin, vancomycin, and meropenem
- Hypertonic nebulized saline 3 times a day with albuterol, aggressive chest PT
- Started Seroquel 50 mg in the morning and 100 mg at night, monitor QTc
- Patient was inadequately sedated with Precedex which has now been discontinued, restarted propofol and fentanyl drips
- Additional Lasix pushes as needed
- Weaning trials as tolerated
- ENT consult for tracheostomy tomorrow
06/25
remains intubated.
for trach today.
06/26
Status post trach
paroxismal A-fib/flutter:
- Currently rate controlled, holding home metoprolol, continue home amiodarone 200 mg at night via OGT
- Holding home Xarelto, have been anticoagulating with IV heparin, colorectal surgery okay with transition to therapeutic Lovenox as needed
IDDM:
- Insulin drip.
HFrEF:
- Acute on chronic chronic
- Holding home metoprolol succinate 100 mg
- Lasix pushes as needed, holding spironolactone, monitor daily weights
- No need for afterload reduction due to hypotension
CODE STATUS: Full code
DVT prophylaxis: Heparin drip
Diet: TPN
Disposition: Continue management in the ICU.
Status post trach
Total time spent on today's encounter was 74 minutes which included time spent in counseling the patient/family regarding diagnosis and treatment plan as listed above, goals of care, and symptom management. Case was discussed with nursing staff,
specialists, and care coordinators/case management. All labs and imaging personally reviewed by me. Remainder the time spent in detailed review of previous records, lab data, imaging, and other medical provider documentation.
Anticipated Discharge: > 48 hours
Subjective/Interval History
-
Date of Service: June 26, 2025
Patient status post trach yesterday, more awake and oriented
Objective Data
-
Labs:
Laboratory Results
06/26/25
03:42
WBC 14.8 H
Hgb 8.4 L
Hct 28.5 L
Plt Count 274
Sodium 140
Potassium 5.1
Chloride 101
Carbon Dioxide 37 H
BUN 28 H
Creatinine 0.5 L
Glucose 129 H
Calcium 8.5
Vital Signs:
Vital Signs
Temp Pulse Resp BP Pulse Ox
100.3 F 101 26 131/78 94
06/26/25 11:23 06/26/25 12:00 06/26/25 12:00 06/26/25 12:00 06/26/25 12:00
I&O
06/25/25 06/26/25 06/27/25
06:59 06:59 06:59
Intake Total 2915.4 / 3007.5 2901.9 / 3026.5 750.4 / 750.4
Output Total 3263 / 3363 3758 / 3758 600 / 600
Balance -347.6 / -355.5 -856.1 / -731.5 150.4 / 150.4
Physical Exam
-
General: Well Developed, Appears in Distress and Obese
HEENT: Normocephalic, Atraumatic, Moist Mucous Membranes, Tracheotomy, Tracheostomy Collar, No Ptosis, PERRLA, Nose Appears Normal and Other
Respiratory: Rales, Rhonchi and Non Labored Respirations
Cardiac: Regular Rhythm and S1/S2
Breast: Deferred by me
GI: Other (Colostomy bag, midline incision clean)
Musculoskeletal: No Clubbing and No Cyanosis
Skin: Warm
Neuro: Awake and Alert
Psych: Calm
--- NOTE | 2025-06-26 14:46 | CM ---
POD #1 tracheostomy. Vent dependent, TPN, colostomy, IV/Meropenem. Discharge POC: TBD.
[2025-06-26 15:38] LABS: Glucose - Point of Care 151 mg/dl (70-99)
--- NOTE | 2025-06-26 15:46 | PTCARENOTE ---
patient reassessed. Diprivan per work list. patient incontinent of moderate amount urine. post void bladder scan, straight cath without issues. care provided. spouse at bedside. Business Records Manager updated. peep decreased by RT.
[2025-06-26] MEDS: LOVENOX 40 MG SC (17:10)
[2025-06-26 17:59] LABS: Glucose - Point of Care 149 mg/dl (70-99)
--- NOTE | 2025-06-26 18:04 | PTCARENOTE ---
patient incontinent large amount urine. with care patient restless. propofol increased per work list. pulse oximeter 88-90. RT at bedside. ASV increased to 100% per orders. peep remains@10
[2025-06-26 20:12] LABS: Glucose - Point of Care 156 mg/dl (70-99)
--- NOTE | 2025-06-26 21:05 | PTCARENOTE ---
Pt received start of shift, HR SR w/ 1st degree AVB on telemetry. Trach #8 Shiley to ASV vent, settings as follows: 100%MV, 60%FiO2, 10 PEEP. POX 93-94%. Continues to desat when turned. Pt opens eyes to verbal. PRN tylenol for temp 102.3. Pt
continuing to be incontinent urine in a constant trickle, CC #25 placed on pt - draining clear yellow urine. NGT R nare 75cm - trickle feed continuing as ordered. No output from colostomy.
[2025-06-26] MEDS: Parenteral Nutrition, Central 1470 IV (21:20)
[2025-06-26 22:13] LABS: Glucose - Point of Care 170 mg/dl (70-99)
[2025-06-26] MEDS: SEROQUEL 100 MG TUBE (22:21)
[2025-06-26] MEDS: PACERONE 200 MG TUBE (22:22)
[2025-06-26] MEDS: LIPITOR 40 MG TUBE (22:22)
[2025-06-27] VITALS (24 sets, daily range): BP systolic 111–161; BP diastolic 59–102; BMI 37.5
[2025-06-27 00:15] LABS: Glucose - Point of Care 154 mg/dl (70-99)
--- NOTE | 2025-06-27 00:17 | PTCARENOTE ---
Temp continues to be elevated - placed back on cooling blanket. Yellow urine continuing to drain w/ aid of CC. Large amount segovia thick mucus suctioned orally. Small amount segovia thick suctioned from trach. Upper JPs continue to not hold suction.
Medial abdominal dressing changed - purulent drainage.
[2025-06-27] MEDS: DIPRIVAN 100 IV (00:44)
--- NOTE | 2025-06-27 01:30 | PTCARENOTE ---
After percussion therapy pt desat to 80s. Not maintaining POX>86% after intermittent 100% FiO2 boluses -- RT aware - FiO2 vent setting increased to 70%. POX 93-97%.
[2025-06-27 02:18] LABS: Glucose - Point of Care 162 mg/dl (70-99)
[2025-06-27 03:47] LABS: Hematocrit 27.3 % (39.0-52.0); Hemoglobin 8.0 g/dL (13.0-18.0); Mean Corp Hgb Conc. 29.3 g/dL (33.0-37.0); Mean Corpuscular Volume 86.4 fL (80.0-94.0); Platelet Count 280 10^3/uL (130-400); Red Cell Dist. Width 15.2 % (11.5-14.5)
[2025-06-27 04:10] LABS: ALT (SGPT) 22 U/L (0-50); AST (SGOT) 35 U/L (17-59); Albumin 2.3 g/dl (3.5-5.0); Alkaline Phosphatase 115 U/L (38-126); Blood Urea Nitrogen 27 mg/dl (9-20); Calcium 8.4 mg/dl (8.4-10.2); Chloride 103 mmol/L (98-107); Estimated Creatinine Clearance > 125 ml/min; Glucose 138 mg/dl (70-99); Potassium 4.5 mmol/L (3.5-5.1); Sodium 144 mmol/L (135-145); Total Protein 6.1 g/dl (6.3-8.2); Triglycerides 130 mg/dl (10-149); eGFR > 60.00
[2025-06-27 04:17] LABS: Glucose - Point of Care 139 mg/dl (70-99)
[2025-06-27 04:21] LABS: Carbon Dioxide 39 mmol/L (22-30)
[2025-06-27] MEDS: SUBLIMAZE 50 MCG IV ×2 (04:23→22:12)
[2025-06-27] MEDS: VENTOLIN NEBULES 2.5 MG INH ×3 (04:37→11:40)
[2025-06-27] MEDS: NOVOLIN R INSULIN INFUSION 100 IV ×2 (04:42→16:59)
--- NOTE | 2025-06-27 05:00 | PTCARENOTE ---
Pt no longer maintaining POX>88% - RT at bedside. FiO2 80%. Pt w/ increased work of breathing, grimacing, eyes wide open. PRN fent bolus - see MAR. Propofol titrated up and breathing treatment administered by RT. POX 99%.
--- NOTE | 2025-06-27 05:20 | PTCARENOTE ---
Pt w/ decreased urine output - bladder scan 700. straight cath - 925
[2025-06-27 06:28] LABS: Glucose - Point of Care 161 mg/dl (70-99)
--- NOTE | 2025-06-27 07:17 | W.PN.INTV ---
Today's Communication / Plan
Recommendations
Wean off propofol
Continue with ASV 100% throughout the day as able
Resume full dose enoxaparin. Follow for bleeding, hemoptysis
Chest x-ray 06/28
Eventual PEG tube
Panculture
Remains on insulin drip
Assessment
-
Assessment: 64-year-old male with a past medical history of cardiomyopathy, hypertension, DM type II, history of chronic opioid use due to chronic arthritis now on buprenorphine, history of ERASMO, venous insufficiency and chronic back pain who
presented with shortness of breath, abdominal distention. Found to have severe colonic distention. Initially treated with neostigmine, attempted sigmoidoscopy without attempt. Underwent exploratory laparotomy 06/08/2025-developed shock requiring
vasopressors and remained on mechanical ventilation. We were consulted on 06/09/2025.
Chronic conditions DIRECTOR OF CLINICAL TRIALS: Hypertension, BPH, DM type II, chronic back pain, cardiomyopathy, venous insufficiency, history of ERASMO, severe osteoarthritis, chronic pain management due to arthritis currently on buprenorphine in an effort to get off of
OxyContin/oxycodone,systolic cardiomyopathy.
06/24/2025 Overview: Patient currently intubated, ASV 120%. Persistent fevers noted, FiO2 increased to 90% overnight. Remains on heparin, TPN, propofol and fentanyl. Drainage from CHRISTINE drain as well as from ostomy bag. Additional peritoneal drains
draining serosanguineous fluid. Significant secretions per ET tube, now bloody
Assessment and plan
#1. Acute hypoxemic respiratory failure post laparotomy complicated by VAP of LLL, intubated 06/08, s/p trach 06/25
- Initially due to abdominal distention requiring intubation, mechanical ventilation, subsequently LLL
- Left lower lobe dense consolidation, copious ET tube secretions noted, improved after Bronchoscopic lavage, again worse 06/19
- s/p bronchoscopy and BAL 06/16 with extensive suctioning of thick mucoid secretions in LLL. BAL growing Pseudomonas/Yeast
- Repeat bronchoscopy 06/20 with extensive clearing of thick secretions from both lower lobes. BAL negative
- CXR as of 06/26 with significant improvement in aeration
- Despite improvement in chest x-ray, worsening oxygenation required increase of PEEP to 12, FiO2 to 90%, now weaned down to 70%. Desaturates with movement intermittently
- Status post tracheostomy 06/25
- continue to wean on ASV 100% off propofol as able. May consider CPAP in the a.m.
#1a. Difficulty ventilator weaning.
- S/p Trach 06/25.
- Did not respond to Precedex. Continue with weaning efforts. Tolerate respiratory rate less than 35, saturation greater than 88%
- Body habitus, excessive secretions, severe pneumonia as well as intra-abdominal processes are contributing to failure to liberate from mechanical ventilation
- Will obtain ABG 06/29
#2. Septic shock suspected-source likely intraperitoneal and LLL pneumonia
- Norepinephrine weaned off
- Status post antifungal per infectious disease service, micafungin. Zosyn switched to meropenem per ID service, also on vancomycin, now on meropenem alone
- BAL culture showing Pseudomonas
- 06/18, CT chest abdomen pelvis pursued, fluid noted in the abdomen.
- Purulent discharge from inferior margin of surgical site, bedside drainage on 06/19, sent for cultures. Growing Pseudomonas
- 06/20, IR guided peritoneal drains x 2 placed for intra-abdominal collections noted on imaging, fluid studies pending serosanguineous fluid noted
- persistent fevers noted. Questionable drug fever?. Patient remains on broad-spectrum antibiotics
- Will hold Seroquel
- Mason catheter has been discontinued 06/25. Continues with fevers despite Mason catheter removal. Recurrent urinary retention. Replace Mason catheter as needed
- Miramontes culture
#3. Pseudoobstruction with megacolon, failed conservative management, s/p ex lap
- S/p ex lap, sigmoidectomy and end colostomy, iatrogenic spillage of stool, peritonitis, umbilical hernia repair, 06/08/2025
- Patient was on IV meropenem, vancomycin and micafungin, now on meropenem alone
- Small-volume stool output noted in the ostomy bag. Add MiraLAX, reviewed with surgery. Continue with Relistor
- TPN infusing. Plans for trickle feeds noted per colorectal surgery to start 06/22, continuous for now no change
- NG tube in place
- Possible PEG tube next week per surgery
#4. Acute on chronic heart failure with reduced ejection fraction, LVEF 35%, Stage I diastolic dysfunction
- Patient has been diuresing well with intermittent Lasix
- Weight is down 13 kg since admission
- Will give additional dose of Lasix given desaturation with supine position
- Patient desaturates when laying flat and repositioned
#5. Paroxysmal atrial flutter.
- Patient on outpatient Xarelto
- Heparin infusion, was held due to bloody secretions 06/25, enoxaparin p.m. started 06/26
- Empirically go to every 12 hour enoxaparin, starting 06/27. Follow for bleeding
- History of cardioversion in January 2025
- Has been on amiodarone
- LFTs normal as of 06/22
#6. Pulmonary hypertension, estimated pulmonary artery systolic pressure 50-55
- Primarily group II PH related to underlying congestive heart failure
- Continue to optimize intravascular volume, keep saturations above 90%, no indication for vasodilator therapy
- Additional dose of Lasix
#7. DM type II with Hyperglycemia
- Continue glycemic protocol as indicated
#8. Prolonged QTc
- Improved after replacing potassium and magnesium
- Tolerating Seroquel well, added 50 mg daytime dose in addition to nightly 100, EKG being followed
- Will stop Seroquel given fevers, last dose 06/26 in p.m.
Other medical diagnoses:
#Morbid obesity
#Venous deficiency
#History of ERASMO
#Chronic pain management due to arthritis currently on buprenorphine in an effort to wean off of OxyContin/oxycodone
-
DVT prophylaxis: -heparin infusion
GI prophylaxis, pantoprazole
-
Prognosis is guarded
I have reviewed with the at the bedside risk for long-term morbidity and mortality, requirement for LTAC
This will be an ongoing discussion
-
Critical care statement: A total of 31 minutes of critical care time was provided for this patient today. This includes management of unstable vital signs, evaluation of the patient at bedside, reviewing the patient's pertinent medical records
including ventilator settings, arterial blood gases, radiographs, microbiology, laboratory evaluations and discussion with primary team, critical care nursing, and respiratory therapy.

Data reviewed:
Chest x-ray 06/08/2025: Reviewed, ET tube in place. Left lower lobe airspace disease. Cardiomegaly
-
CT abdomen pelvis 06/05/2025:
The patient is significantly distended, and much of the abdominal and upper pelvic soft tissues extending anterior and to the left of the [id number], which limits evaluation, as it becomes difficult to confidently follow the loops of bowel.
There is distention of the rectum with air and stool, measuring 9.3 cm in diameter. There is marked distention of the sigmoid colon which extends into the right and central upper abdomen, with the sigmoid colon measuring up to 18 cm in diameter. The
sigmoid colon contains a moderate to large amount of stool, mainly inferiorly. There appears to be moderate distention of the rest of the visualized colon.
Small bowel loops are present, and do not appear to be significantly distended, similar appearance to prior examination.
Of note, the cecum cannot be confidently identified on the present examination
No gross evidence of free intraperitoneal air.
There is patchy parenchymal opacity within the visualized lower lungs, most likely atelectasis. A component of pneumonia is also possible, although felt to be less likely. There is no significant pleural effusion and no significant pericardial
effusion.
Coronary artery calcifications are present. Please correlate with symptoms of and risk factors for coronary artery disease, with further workup as clinically appropriate.
Of note, the stomach is not distended.
Subjective Dataa
Subjective Data
Date of Service:
Date of Service: June 27, 2025
Chief Complaint: Television Installer Follow Up (Septic shock/respiratory failure require mechanical ventilation)
Subjective:
Unfortunately, patient continues to have fevers, 102.1. Minimal tracheal secretions, moderate oral secretions. Mason catheter was removed 2 days ago. Remains on insulin drip. Hemoglobin stable. No further hemoptysis
Objective Data
Data Reviewed
Vital Signs / I&O / Oxygen:
Vital Signs
Temp Pulse Resp BP Pulse Ox
98.8 F 90 20 137/65 98
06/27/25 03:06 06/27/25 06:00 06/27/25 06:00 06/27/25 06:00 06/27/25 06:00
Intake and Output
06/26/25 06/27/25 06/28/25
06:59 06:59 06:59
Intake Total 2901.9 / 3026.5 2693.8 / 2693.8
Output Total 3758 / 3758 3070 / 3070
Balance -856.1 / -731.5 -376.2 / -376.2
SaO2 [ASV] 99
SaO2 [A/C] 95
SaO2 98
Nasal Cannula flow liters per 3
minute
Physical Exam
General: Comfortable (Intermittent rapid shallow breathing), Other (Large neck) and Other (Right upper extremity PICC)
HEENT: Normocephalic and Anicteric
Cardiovascular: S1-S2, Regular Rhythm, Murmur (n) and Peripheral Edema (1+, lower extremity stockings in place)
Respiratory: Wheeze (n), Crackles (Mild bibasilar), Rhonchi (Few scattered), Non-Labored Respirations and Other (Tracheostomy)
GI: Soft, Distended (Morbidly obese), Other (Colostomy. Multiple CHRISTINE drains with serous drainage, inferior portion of incision open with dressing) and Other (NG tube in place minimal drainage)
Neurology: Other (Patient does spontaneously move extremities, follows commands during sedation vacation, moves all extremities)
Skin: Warm and Other (Mid abdominal incision with fred, inferior portion open, CHRISTINE drainage serous)
Labs/Micro/Reports
Lab Data
06/27/25 03:40
06/27/25 03:40
Microbiology
06/20/25 16:38 Peritoneal Fluid Body Fluid Culture - Final
06/20/25 16:38 Peritoneal Fluid Gram Stain - Final
06/20/25 16:34 Peritoneal Fluid Body Fluid Culture - Final
Pseudomonas aeruginosa
06/20/25 16:34 Peritoneal Fluid Gram Stain - Final
06/19/25 09:59 Abdomen Wound Culture - Final
Pseudomonas aeruginosa
06/19/25 09:59 Abdomen Gram Stain - Final
06/19/25 09:59 Abdomen Anaerobic Culture - Final
[2025-06-27] MEDS: MERREM 500 MG IV ×4 (07:22→23:38)
[2025-06-27] MEDS: STERILE WATER FOR INJECTION 10 ML IV ×4 (07:22→23:38)
[2025-06-27] MEDS: SUBUTEX 4 MG SL (08:01)
[2025-06-27] MEDS: NSS (PRESERVATIVE FREE) 10 ML IV (08:01)
[2025-06-27] MEDS: TYLENOL ORAL SOLUTION 650 MG TUBE ×4 (08:01→22:42)
[2025-06-27] MEDS: MIRALAX 17 GRAMS TUBE ×2 (08:01→19:20)
[2025-06-27] MEDS: PROTONIX IV 40 MG IV (08:01)
--- NOTE | 2025-06-27 08:10 | PTCARENOTE ---
Assumed care of pt at 0715 following shift report. Physical assessment completed as documented. Fentanyl, Propofol, Insulin, TPN infusing at ordered via Rt PICC. #8 XL Shiley trach to vent at ordered settings. Repositioned, oral care, AM hygiene,
wound care completed. Call elke w/in pt reach. Bilateral wrist restraints in use. Safe environment maintained.
[2025-06-27 08:31] LABS: Glucose - Point of Care 153 mg/dl (70-99)
--- NOTE | 2025-06-27 08:56 | W.PN.HOSP.TC ---
Today's Communication/Plan
-
Continue management in the ICU.
Dc Seroquel
Assessment / Plan
Assessment / Plan
Impression:
Mr. Knapp is a 64-year-old male with medical history of HFpEF, A-fib/flutter, IDDM, obesity, chronic pain with subsequent opioid dependence, and chronic constipation with colonic dysmotility who presented with shortness of breath, abdominal
bloating and discomfort, constipation. His last bowel movement was 2 weeks prior to arrival. He is having increasing difficulty breathing due to worsening abdominal distention. He has had multiple similar episodes since September 2024 and has
previously required decompression. He has been treated with enemas and neostigmine previously. Abdominal imaging showed significant colonic distention with air-filled loops of bowel. He also had patchy parenchymal opacities within the mid to
lower lungs. He was mildly hypoxic and has been started on antibiotics. He has remained afebrile with a mild leukocytosis of just over 12,000. He has been admitted for further evaluation and management.
Seen by GI, failed neostigmine, enema, status post nonsuccessful decompressive flexible sigmoidoscopy.
Surgery team consulted.
s/p Exploratory laparotomy, lysis of adhesions, sigmoidectomy, decompression of right colon, abdominal washout, creation of end descending colostomy, umbilical hernia repair on 06/08
admitted to ICU postoperatively, intubated.
Patient had fever,Infectious disease consult, started on zosyn.
Patient was still running fever, added micafungin.
CT chest: New right lower lobe consolidation with air bronchograms, atelectasis versus pneumonia, Possible small bilateral pleural effusions.
CT abdomen/pelvis shows: Small volume fluid in the abdomen, particularly in the left abdomen mildly complex. As this fluid is incompletely included, it cannot be determined whether this totally represents likely free fluid or combination of free
fluid and abnormal focal fluid collection. Additional small abnormal focal fluid collections cannot be excluded on the basis of this markedly limited study
Patient received Lasix.
Difficult extubation, discussion regarding trach
Currently intubated, surgery okay with trickle feeding.
Difficult extubation, ENT consult for trach
06/25
remains intubated.
for trach today.
06/26
S/p trach
Assessment/Plan:
Colonic dysmotility/ileus:
- Abdomen remained significantly distended despite multiple medical enemas and subsequent bowel movements
- Upgraded to IMU 06/07, pushed 4 mg neostigmine around 1:30 PM, no significant peristaltic response
- Ultimately required surgical intervention, brought to the OR 06/08 for ex lap with lysis of adhesions and sigmoidectomy with end descending colostomy, decompression of right colon, abdominal washout and umbilical hernia repair
- ICU postoperatively, intubated
- Colorectal surgery following, increased output from colostomy now with brown stool
- Lower fred removed from surgical incision with mucopurulent output, wound packed, cultures obtained, redressed
- IR placed 2 abdominal drains yesterday 06/20 with serosanguineous output, cultures pending
- Continue TPN, holding tube feeds
- Colorectal surgery okay with transitioning anticoagulation to therapeutic Lovenox as needed
- TPN/TF
Septic shock, requiring pressors:
- This is likely a primary intra-abdominal infection, stool leakage into the abdomen requiring washout, also likely has concomitant pulmonary infection
- Tracheal aspirate from 06/14 growing pansensitive Pseudomonas
- ID following, continuing vancomycin and micafungin, Zosyn switched to meropenem
- Leukocytosis improving, fever curve improving
- Vasopressors as needed, currently on hold
- Precedex discontinued as it was useless and keeping him sedated, continuing sedation with propofol and fentanyl
06/27
As of today, patient still running fever.
Seroquel discontinued
completed 10 empiric micafungin
continue Vancomycin IV
continue meropenem
Acute hypoxic respiratory failure (currently intubated in the ICU postoperatively)
- Continue mechanical ventilation, ETT replaced 06/19 by kindergarten tutor
- Persistent copious thick secretions and left lower lobe volume loss
- Underwent bronchoscopy with BAL left lower lobe 06/15 by kindergarten tutor, cultures growing Pseudomonas, repeat bronchoscopy with BAL today 06/20 with aspiration of copious secretions
- Continue antimicrobial coverage with micafungin, vancomycin, and meropenem
- Hypertonic nebulized saline 3 times a day with albuterol, aggressive chest PT
- Started Seroquel 50 mg in the morning and 100 mg at night, monitor QTc
- Patient was inadequately sedated with Precedex which has now been discontinued, restarted propofol and fentanyl drips
- Additional Lasix pushes as needed
- Weaning trials as tolerated
- ENT consult for tracheostomy tomorrow
06/25
remains intubated.
for trach today.
06/26
Status post trach
paroxismal A-fib/flutter:
- Currently rate controlled, holding home metoprolol, continue home amiodarone 200 mg at night via OGT
- Holding home Xarelto, have been anticoagulating with IV heparin, colorectal surgery okay with transition to therapeutic Lovenox as needed
IDDM:
- Insulin drip.
HFrEF:
- Acute on chronic chronic
- Holding home metoprolol succinate 100 mg
- Lasix pushes as needed, holding spironolactone, monitor daily weights
- No need for afterload reduction due to hypotension
CODE STATUS: Full code
DVT prophylaxis: Heparin drip
Diet: TPN
Disposition: Continue management in the ICU.
Dc Seroquel
Total time spent on today's encounter was 74 minutes which included time spent in counseling the patient/family regarding diagnosis and treatment plan as listed above, goals of care, and symptom management. Case was discussed with nursing staff,
specialists, and care coordinators/case management. All labs and imaging personally reviewed by me. Remainder the time spent in detailed review of previous records, lab data, imaging, and other medical provider documentation.
Anticipated Discharge: > 48 hours
Subjective/Interval History
-
Date of Service: June 27, 2025
Patient was agitated, sedation resumed.
Still running fever
Objective Data
-
Labs:
Laboratory Results
06/27/25
03:40
WBC 12.5 H
Hgb 8.0 L
Hct 27.3 L
Plt Count 280
Sodium 144
Potassium 4.5
Chloride 103
Carbon Dioxide 39 H
BUN 27 H
Creatinine 0.6 L
Glucose 138 H
Calcium 8.4
Total Bilirubin 0.4
AST 35
ALT 22
Alkaline Phosphatase 115
Vital Signs:
Vital Signs
Temp Pulse Resp BP Pulse Ox
101.9 F H 96 25 141/73 96
06/27/25 08:44 06/27/25 08:00 06/27/25 08:00 06/27/25 08:00 06/27/25 08:00
I&O
06/26/25 06/27/25 06/28/25
06:59 06:59 06:59
Intake Total 2901.9 / 3026.5 2693.8 / 2693.8 168.5 / 168.5
Output Total 3758 / 3758 3070 / 3070 10 /
Balance -856.1 / -731.5 -376.2 / -376.2 158.5 / 158.5
Physical Exam
-
General: Well Developed, Appears in Distress and Obese
HEENT: Normocephalic, Atraumatic, Moist Mucous Membranes, Tracheotomy, Tracheostomy Collar, No Ptosis, PERRLA, Nose Appears Normal and Other
Respiratory: Rales, Rhonchi and Non Labored Respirations
Cardiac: Regular Rhythm and S1/S2
Breast: Deferred by me
GI: Other (Colostomy bag, midline incision clean)
Musculoskeletal: No Clubbing and No Cyanosis
Skin: Warm
Neuro: Awake and Alert
Psych: Calm
--- NOTE | 2025-06-27 08:58 | W.PN.ID1 ---
Date of Service
Date of Service: June 27, 2025
Today's Communication
Repeat bcx's and sputum cx.
Assessment / Plan
# Purulent peritonitis
# Colonic inertia with megacolon; status post ex lap, decompression, colostomy, stool leakage into the abdomen requiring washout 06/08/2025
# s/p Septic shock
# PNA with Pseudomonas
# Fever persists ? due to Seroquel
# Leukocytosis improving
# VDRF s/p trach06/25/25
# On TPN
- 06/08/25 Exploratory laparotomy, lysis of adhesions, sigmoidectomy, decompression of right colon, abdominal washout, creation of end descending colostomy, umbilical hernia repair
- No OR cx
- Blood cultures neg
- 06/15 s/p bronch with airway clearance; cx Pseudomonas
- 06/19 Colorectal opened midline abd distal incision. cx cx Pseudomonas, mixed anaerobes
- 06/20 aspiration/drainage of right abdominal peritoneal collections x 2. 1 of 2 cx : Pseudomonas
- completed 10 empiric micafungin
- s/p Vancomycin IV x 6d
- s/p Zosyn(8d) -> continue meropenem (d#10).
- Fever persists. Of note Pseudomonas sensitive to Zosyn, meropenem.
Seroquel dc'd today, in case of drug fever.
Repeat blood cx's x 2.
Repeat sputum cx.
- trend temps/wbc
- Pt remains critically ill; on vent
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
HFrEF
HTN
DM
Afib
HLD
Colonic Inertia / Dysmotility
Chronic opioid dependence
Advanced bilateral lower extremity venous insufficiency
Morbid obesity (BMI~43)
Chief Complaint
-: Fever and Other (Purulent peritonitis)
Subjective / Review of Systems
Remains febrile. Isabella was dc'd.
Vital Signs / Physical Exam
Vital Signs
Vital Signs
Temp Pulse Resp BP Pulse Ox
101.9 F H 96 25 141/73 96
06/27/25 08:44 06/27/25 08:00 06/27/25 08:00 06/27/25 08:00 06/27/25 08:00
Physical Exam
Constitutional: Acutely Ill and Obese
Cardiovascular: Regular Rate and S1/S2
Pulmonary: Clear (anterior lungs), Coarse and Other (Trach vent)
Gastrointestinal: Soft, Non Tender, Non Distended and Other (RLQ drain serosanguinous; R upper CHRISTINE drain x 2 empty. Lower incision dressing + fluid strike through.)
Extremities: Edema and Venous Insufficiency
Lines: PICC (RUE no erythema)
Objective Data
Lab Data
Lab Results
06/27/25 03:40
06/27/25 03:40
PT 17.4 Sec (11.4-14.6) H 06/09/25 00:01
INR 1.40 06/09/25 00:01
APTT 106.6 Sec (23.4-35.0) H 06/24/25 04:03
Estimated Creat Clear > 125 ml/min 06/27/25 03:40
Lactic Acid 0.9 mmol/L (0.7-2.0) 06/09/25 00:01
Total Bilirubin 0.4 mg/dl (0.2-1.3) 06/27/25 03:40
AST 35 U/L (17-59) 06/27/25 03:40
ALT 22 U/L (0-50) 06/27/25 03:40
Alkaline Phosphatase 115 U/L (38-126) 06/27/25 03:40
C-Reactive Protein > 270.00 mg/L (0.0-10.00) H 06/11/25 03:22
Most recent labs reviewed.
Micro Results:
06/20/25 16:38 Body Fluid Culture - Final
Peritoneal Fluid Gram Stain - Final
06/20/25 16:34 Body Fluid Culture - Final
Peritoneal Fluid Pseudomonas aeruginosa
Gram Stain - Final
06/19/25 09:59 Wound Culture - Final
Abdomen Pseudomonas aeruginosa
Gram Stain - Final
06/19/25 09:59 Anaerobic Culture - Final
Abdomen
06/20/25 11:01 Respiratory Culture - Final
Bronch Right Lower Lobe Pseudomonas aeruginosa
Gram Stain - Final
06/20/25 11:01 Acid Fast Bacilli Smear - Preliminary
Bronch Right Lower Lobe Acid Fast Bacilli Culture - Preliminary
06/20/25 11:01 Fungal Culture - Preliminary
Bronch Right Lower Lobe Culture in progress.
Positive cultures are reported as soon as detected.
Final report to follow in four to five weeks.
06/15/25 10:08 Fungal Culture - Preliminary
Bronch Left Lower Lobe Evelyn albicans
06/17/25 13:11 MRSA Screen - Final
Nose No Methicillin Resistant Staphylococcus aureus isolated.
06/13/25 12:07 Blood Culture - Final
Blood/Venous No Growth - Final Report
06/13/25 12:07 Blood Culture - Final
Blood/Venous No Growth - Final Report
06/15/25 10:08 Acid Fast Bacilli Smear - Preliminary
Bronch Left Lower Lobe Acid Fast Bacilli Culture - Preliminary
06/15/25 10:08 Respiratory Culture - Final
Bronch Left Lower Lobe Pseudomonas aeruginosa
Gram Stain - Final
06/14/25 11:22 Respiratory Culture - Final
Tracheal Aspirate Pseudomonas aeruginosa
Gram Stain - Final
06/11/25 09:27 Blood Culture - Final
Blood/Venous No Growth - Final Report
06/11/25 09:59 Blood Culture - Final
Blood/Venous No Growth - Final Report
06/06/25 07:57 MRSA Screen - Final
Nose No Methicillin Resistant Staphylococcus aureus isolated.
Imaging:
06/24/25 CXR: Slightly increased basilar predominant airspace opacities, worse on the left. Findings may be related to pneumonia or worsening atelectasis.
06/18/25 CT c/a/p: Suspected moderate volume mildly complex presumed free fluid in the abdomen, overall increased in volume in comparison to recent prior study, most prominently located in the right subhepatic region, right subdiaphragmatic region
and likely left abdomen/pelvis.
06/16/25 CXR: There is moderate airspace disease in right lower lung field concerning for pneumonia. There is obscuration of the left hemidiaphragm suggesting left lower lobe pneumonia
06/15/25 CXR: No pneumothorax status post bronchoscopy. Progressive homogeneous increased retrocardiac opacity. Suspect mild left perihilar and right infrahilar opacity which could represent atelectasis or pneumonia.
06/13/25 CT a/p: Very limited study. Small volume fluid in the abdomen, particularly in the left abdomen mildly complex. As this fluid is incompletely included, it cannot be determined whether this totally represents likely free fluid or combination
of free fluid and abnormal focal fluid collection. Additional small abnormal focal fluid collections cannot be excluded on the basis of this markedly limited study. Apparent recent prior partial sigmoidectomy with large volume stool seen in the
residual sigmoid colon and rectum.
06/10 CXR: Stable CHF and bibasilar atelectasis and/or pneumonia.
06/08/25 CXR: Diffuse marked colonic dilation. Measurement of caliber of the upper colon is slightly greater then obstruction series of June 07, 2025. Multiple air-fluid levels compatible with stasis. Moderate amount of stool within the inferior
aspect of the right colon as well as within the rectum. No gross evidence for free intraperitoneal air.
06/05/25 CT a/p: Significant gaseous distention of a large portion of the colon. This contributes to limitation of this examination, as the patient cannot be fully included on the [id number] of the CT scanner. If there can be some distal colonic
decompression, repeat scan could be considered, when hopefully the patient could be entirely included on the [id number] of the exam. No gross evidence for free intraperitoneal air. Patchy parenchymal opacity within the visualized lower lung, most
likely atelectasis. Pneumonia is a differential consideration, felt to be less likely based on morphologic appearance.
Care Review
Plan reviewed with: Nurse and Physician (Dr. Stevens)
[2025-06-27] MEDS: RELISTOR 12 MG SC (09:46)
[2025-06-27] MEDS: HYDROPHOR 1 APPLIC TOPICAL (09:59)
[2025-06-27] MEDS: DESENEX/MITRAZOL/ZEASORB 1 APPLIC TOPICAL ×2 (10:00→19:20)
[2025-06-27] MEDS: SUBLIMAZE 100 IV (10:22)
[2025-06-27] MEDS: SANTYL OINTMENT 1 APPLIC TOPICAL (10:22)
[2025-06-27 10:40] LABS: Glucose - Point of Care 171 mg/dl (70-99)
--- NOTE | 2025-06-27 12:20 | PTCARENOTE ---
Pt noted to have only 125ml urine output from condom cath. Bladder scan completed= 517ml. Dr Laurent on unit and updated on findings as well as urine retention overnight. Order received to place Maosn catheter- placed following sterile protocol w/
return of 725ml yellow urine w/ small amount sediment. Pt tolerated placement w/ expressed discomfort due to noted MASD around meatus. Continuing to wean Propofol- see work list intervention. Pt increasingly more alert- restless at times w/ RR mid
30's. Shakes head 'no' when questioned if having pain. Fentanyl gtt dose unchanged. Insulin gtt adjusted per glycemic protocol. Cooling blanket in use for elevated temp- see worklist intervention. Frequent comfort care/hygiene provided. Safe
environment maintained.
[2025-06-27 12:45] LABS: Glucose - Point of Care 175 mg/dl (70-99)
--- NOTE | 2025-06-27 14:41 | W.PN.GS2 ---
Addendum entered and electronically signed by Shahram Gambino MD 06/27/25 15:02:
I saw and examined the patient.
The RELOCATION DIRECTOR's note was reviewed and I agree with the note.
Comment: Intubated/sedated, belly soft, incision cdi, lower open area with some slough but no erythema or foul odor. cont tpn, trickle tf, hep gtt, local wound care
Original Note:
Today's Communication / Plan
-
tpn/trickle feeds
Assessment / Plan
-
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
obstipation associated with megacolon. WBC 11.[address] showing gaseous distention of the colon, diameter of the sigmoid up to 18 cm in diameter. He received a dose of neostigmine, which failed. He underwent attempt at decompressive sigmoidoscopy,
but encountered too much stool. Due to refractory nature of his issue, we proceeded with surgery.
POD 19 exlap, sigmoidectomy, end-colostomy; iatrogenic spillage of stool - controlled and abdomen washed out, no colonic ischemia or perforation
POD 2 Tracheostomy placement
06/15 and 06/20 bronch for mucous plugging
06/19 midline incision opened up, +pseudomonas/mixed aneerobes
06/20 IR drains x2 to RUQ +pseudomonas in 1 of 2
Fevers continue, VDRF, VSS
Leukocytosis trending down
H/H stable
Insulin gtt for hyperglycemia with TPN in setting of h/o DM
Ileus present, tolerating trickle feeds thus far but no stoma outputs since recent OR for trach
Plan:
- Continue trickle feeds and TPN, appreciate dietary recs. Propofol at low rate and titrating down, will leave some lipids in TPN
- Hold on advancing TF until stoma more productive
- ID following for management of ABX, Seroquel d/cd in case of drug fever
- Continue morales
- Eventual PEG with GI when medically stable
- Continue local wound care with packing bid and santyl
Medical management as per ICU team
Subjective Data
-
Date of Service: June 27, 2025
Pt seen and examined at bedside with Dr. Gambino. Sedated/VDRF. Comfortable appearing
Objective Data
-
Intake and Output
06/26/25 06/27/25 06/28/25
06:59 06:59 06:59
Intake Total 2901.9 / 3026.5 2693.8 / 2693.8 540.4 / 540.4
Output Total 3758 / 3758 3070 / 3070 859 / 859
Balance -856.1 / -731.5 -376.2 / -376.2 -318.6 / -318.6
Intake:
IV fluids (Total) 832.9 / 866.5 540.8 / 540.8 113.4 / 113.4
Fentanyl gtt 187.5 / 195.0 180.0 / 180.0 22.5 / 22.5
Insulin 106.5 / 110.5 122.5 / 122.5 42.5 / 42.5
Propofol 538.9 / 561.0 238.3 / 238.3 48.4 / 48.4
TPN/PPN 1314 / 1370 1328 / 1328 427 / 427
Tube feeding 180 / 190 230 / 230
Feeding tube flush amount 525 / 550 575 / 575
Amount instilled into Drain ( 20 20
Total)
Right Middle Abdomen [place]-
Vo B Placed in IR
Right Upper Abdomen [place]-
Vo A Placed in IR
Amount instilled into GI Tube (
Total)
[place]
Output:
Drain Output (Total) / 33
Right Lower Abdomen [place]-
Vo
Right Middle Abdomen [place]-
Vo B Placed in IR
Right Upper Abdomen [place]- 0 / 0 0 0
Vo A Placed in IR
Urine, [place] 475 / 475 725 / 725
Urine, Voided 0 / 0 875 / 875 124 / 124
Straight cath output 3250 / 3250 2175 / 2175
Other:
How many times incontinent 1
SMALL amount urine
How many times incontinent 1
MODERATE amount urine
How many times incontinent 1
SATURATED amount urine
Vital Signs
Temp Pulse Resp BP Pulse Ox
100.4 F H 100 30 141/73 92
06/27/25 13:03 06/27/25 11:41 06/27/25 11:41 06/27/25 08:00 06/27/25 12:00
Lab Results
06/27/25 03:40
06/27/25 03:40
Calcium 8.4 mg/dl (8.4-10.2) 06/27/25 03:40
Phosphorus 3.1 mg/dl (2.5-4.5) 06/27/25 03:40
Magnesium 2.3 mg/dl (1.6-2.3) 06/26/25 03:42
Total Bilirubin 0.4 mg/dl (0.2-1.3) 06/27/25 03:40
Direct Bilirubin 0.4 mg/dl (0.0-0.4) 06/15/25 04:25
AST 35 U/L (17-59) 06/27/25 03:40
ALT 22 U/L (0-50) 06/27/25 03:40
Alkaline Phosphatase 115 U/L (38-126) 06/27/25 03:40
Total Protein 6.1 g/dl (6.3-8.2) L 06/27/25 03:40
Albumin 2.3 g/dl (3.5-5.0) L 06/27/25 03:40
Physical Exam
-
NAD
Vent to trach
ABD soft, ND, obese
Midline incision open at base, granulating well but still with some fibrinous tissue to base of wound. Adrien intact.
Drains with serous outputs x3
Stoma pink/viable with bowel sweat in appliance
NGT with trickle tube feedings being instilled
Patient has a morales catheter: Yes
Patient has a central line: Yes
--- NOTE | 2025-06-27 15:00 | PTCARENOTE ---
Pt's arrived to room. Updated on pt's present condition/plan of care. Questions answered. Pt remains awake/alert, nodding appropriately to 's questions of him. Restless at times but shakes head 'no' when asked if having any pain.
[2025-06-27 15:01] LABS: Glucose - Point of Care 174 mg/dl (70-99)
[2025-06-27 17:07] LABS: Glucose - Point of Care 162 mg/dl (70-99)
--- NOTE | 2025-06-27 17:36 | PTCARENOTE ---
Pt rec'd in handoff from LAWRENCE Cabezas at 17:00 for staffing. Fent, Insulin, TPN and tube feeds infusing. Pt calm and dozing on current vent settings. Mason in place draining clear yellow urine. Ordered meds given, accucheck done. Safe environment
maintained.
[2025-06-27 19:15] LABS: Glucose - Point of Care 141 mg/dl (70-99)
--- NOTE | 2025-06-27 21:00 | PTCARENOTE ---
Pt received start of shift, HR SR/ST w/ BBB and PVCs/PACs on telemetry. Trach #8 Shiley to ASV vent, settings as follows: 100%MV, 80%FiO2, 10 PEEP. POX 90-92%. Pt awake, oriented to name. Nods yes or shakes head no to questions. Mason draining clear
yellow urine. NGT R nare 75cm - trickle feed continuing as ordered. No output from colostomy.
[2025-06-27 21:24] LABS: Glucose - Point of Care 173 mg/dl (70-99)
[2025-06-27] MEDS: Parenteral Nutrition, Central 1210 IV (21:38)
[2025-06-27] MEDS: PACERONE 200 MG TUBE (22:12)
[2025-06-27] MEDS: LIPITOR 40 MG TUBE (22:12)
[2025-06-27 23:13] LABS: Glucose - Point of Care 153 mg/dl (70-99)
[2025-06-28] VITALS (26 sets, daily range): BP systolic 115–163; BP diastolic 73–138; BMI 39.2
[2025-06-28] MEDS: SUBLIMAZE 100 IV ×2 (00:01→13:46)
--- NOTE | 2025-06-28 00:15 | PTCARENOTE ---
PRN tylenol for fever - see MAR. Cooling blanket remains. Pt restless in bed, grimacing. PRN fent bolus - see JAN. Trach care completed.
[2025-06-28 01:39] LABS: Glucose - Point of Care 142 mg/dl (70-99)
[2025-06-28] MEDS: TYLENOL ORAL SOLUTION 650 MG TUBE ×3 (03:19→22:09)
[2025-06-28 04:19] LABS: Glucose - Point of Care 180 mg/dl (70-99)
[2025-06-28 04:53] LABS: Hematocrit 32.5 % (39.0-52.0); Hemoglobin 9.6 g/dL (13.0-18.0); Mean Corp Hgb Conc. 29.5 g/dL (33.0-37.0); Mean Corpuscular Volume 84.9 fL (80.0-94.0); Platelet Count 385 10^3/uL (130-400); Red Cell Dist. Width 15.3 % (11.5-14.5)
[2025-06-28 04:56] LABS: ALT (SGPT) 30 U/L (0-50); AST (SGOT) 58 U/L (17-59); Albumin 2.7 g/dl (3.5-5.0); Alkaline Phosphatase 151 U/L (38-126); Blood Urea Nitrogen 30 mg/dl (9-20); Calcium 8.9 mg/dl (8.4-10.2); Carbon Dioxide 40 mmol/L (22-30); Chloride 103 mmol/L (98-107); Estimated Creatinine Clearance > 125 ml/min; Glucose 177 mg/dl (70-99); Magnesium 2.2 mg/dl (1.6-2.3); Potassium 4.2 mmol/L (3.5-5.1); Sodium 146 mmol/L (135-145); Total Protein 7.1 g/dl (6.3-8.2); eGFR > 60.00
[2025-06-28] MEDS: STERILE WATER FOR INJECTION 10 ML IV ×4 (05:44→23:55)
[2025-06-28] MEDS: MERREM 500 MG IV ×4 (05:44→23:55)
[2025-06-28 06:11] LABS: Glucose - Point of Care 171 mg/dl (70-99)
--- NOTE | 2025-06-28 06:22 | PTCARENOTE ---
Pt reassessed. Pt becoming more anxious, restless. therapeutic speech utilized. Repositioned. Less restless. Mason continuing to drain yellow urine. Abdominal incision dressing changed - serous/purulent drainage. Colostomy still no stool output.
--- NOTE | 2025-06-28 07:16 | W.PN.INTV ---
Today's Communication / Plan
Recommendations
Attempt CPAP wean
Maintain off propofol, continue fentanyl
ABG, chest x-ray in a.m.
Continue with trickle feeds via NG tube
Eventual PEG tube in the next week
Start enoxaparin 120 mg every 12 hours (hx of afib), follow-up for hemoptysis
Assessment
-
Assessment: 64-year-old male with a past medical history of cardiomyopathy, hypertension, DM type II, history of chronic opioid use due to chronic arthritis now on buprenorphine, history of ERASMO, venous insufficiency and chronic back pain who
presented with shortness of breath, abdominal distention. Found to have severe colonic distention. Initially treated with neostigmine, attempted sigmoidoscopy without attempt. Underwent exploratory laparotomy 06/08/2025-developed shock requiring
vasopressors and remained on mechanical ventilation. We were consulted on 06/09/2025.
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
OxyContin/oxycodone,systolic cardiomyopathy.
06/28/2025 Overview: Patient currently intubated, ASV 100%. Persistent fevers noted, FiO2 requirement waxes and wanes between 70% and 90%, currently on 70%. Off heparin due to hemoptysis, remains on TPN and fentanyl. Propofol has been off since
06/27 drainage from CHRISTINE drain as well as from ostomy bag. Additional peritoneal drains draining serosanguineous fluid. Tracheotomy tube secretions improved, minimal at this time
Assessment and plan
#1. Acute hypoxemic respiratory failure post laparotomy complicated by VAP of LLL, intubated 06/08, s/p trach 06/25
- Initially due to abdominal distention requiring intubation, mechanical ventilation, subsequently LLL
- Left lower lobe dense consolidation, copious ET tube secretions noted, improved after Bronchoscopic lavage, again worse 06/19
- s/p bronchoscopy and BAL 06/16 with extensive suctioning of thick mucoid secretions in LLL. BAL growing Pseudomonas/Yeast
- Repeat bronchoscopy 06/20 with extensive clearing of thick secretions from both lower lobes. BAL negative
- CXR as of 06/26 with significant improvement in aeration, CXR 06/28 with decreased aeration left lung. Suspect patient has rotated
- presently on 70%, PEEP of 10
- Status post tracheostomy 06/25
- Will transition to CPAP 5, pressure support of 20 and maintain. If runs into issues, will place back on to ASV 100% / 10/70%. With this, patient exhibited Joce-Solano breathing but no episodes of apnea. This mode will continue for now. ABG
in the a.m. Chest x-ray in the a.m.
#1a. Difficulty ventilator weaning.
- S/p Trach 06/25.
- Did not respond to Precedex. Continue with weaning efforts. Tolerate respiratory rate less than 35, saturation greater than 88%
- Body habitus, excessive secretions, severe pneumonia as well as intra-abdominal processes are contributing to failure to liberate from mechanical ventilation
- Will obtain ABG 06/29
- Maintain on CPAP for now as able
#2. Septic shock suspected-source likely intraperitoneal and LLL pneumonia
- Norepinephrine weaned off
- Status post antifungal per infectious disease service, micafungin. Zosyn switched to meropenem per ID service, also on vancomycin, now on meropenem alone
- BAL culture showing Pseudomonas
- 06/18, CT chest abdomen pelvis pursued, fluid noted in the abdomen.
- Purulent discharge from inferior margin of surgical site, bedside drainage on 06/19, sent for cultures. Growing Pseudomonas
- 06/20, IR guided peritoneal drains x 2 placed for intra-abdominal collections noted on imaging, fluid studies pending serosanguineous fluid noted
- persistent fevers noted. Questionable drug fever?. Patient remains on broad-spectrum antibiotics
- Will hold Seroquel for possibility of drug fever
- Mason catheter has been discontinued 06/25. Continues with fevers despite Mason catheter removal. Recurrent urinary retention. Needed to be replaced 8/23
- Miramontes culture
- May require abdominal imaging if fevers persist
#3. Pseudoobstruction with megacolon, failed conservative management, s/p ex lap
- S/p ex lap, sigmoidectomy and end colostomy, iatrogenic spillage of stool, peritonitis, umbilical hernia repair, 06/08/2025
- Patient was on IV meropenem, vancomycin and micafungin, now on meropenem alone
- Small-volume stool output noted in the ostomy bag. Add MiraLAX, reviewed with surgery. Continue with Relistor
- TPN infusing. Plans for trickle feeds noted per colorectal surgery to start 06/22, continuous for now no change
- NG tube in place
- Possible PEG tube next week per surgery
#4. Acute on chronic heart failure with reduced ejection fraction, LVEF 35%, Stage I diastolic dysfunction
- Patient has been diuresing well with intermittent Lasix
- Weight is down 13 kg since admission
- Will give additional dose of Lasix given desaturation with supine position
- Patient desaturates when laying flat and repositioned
#5. Paroxysmal atrial flutter.
- Patient on outpatient Xarelto
- Heparin infusion, was held due to bloody secretions 06/25, enoxaparin p.m. started 06/26
- Empirically go to every 12 hour enoxaparin, starting 06/28. Follow for bleeding. Will started 120 mg every 12 hours. This equates to 0.8 mg/kg
- History of cardioversion in January 2025
- Has been on amiodarone
- LFTs normal as of 06/22
#6. Pulmonary hypertension, estimated pulmonary artery systolic pressure 50-55
- Primarily group II PH related to underlying congestive heart failure
- Continue to optimize intravascular volume, keep saturations above 90%, no indication for vasodilator therapy
- Additional dose of Lasix as needed
#7. DM type II with Hyperglycemia
- Continue glycemic protocol as indicated
#8. Prolonged QTc
- Improved after replacing potassium and magnesium
- Was Tolerating Seroquel well, added 50 mg daytime dose in addition to nightly 100, EKG being followed
- Held Seroquel given fevers, last dose 06/26 in p.m.
- EKG in a.m.
Other medical diagnoses:
#Morbid obesity
#Venous deficiency
#History of ERASMO
#Chronic pain management due to arthritis currently on buprenorphine in an effort to wean off of OxyContin/oxycodone
-
DVT prophylaxis: -heparin infusion
GI prophylaxis, pantoprazole
-
Prognosis is guarded
I have reviewed with the at the bedside risk for long-term morbidity and mortality, requirement for LTAC
reviewed at length with at bedside 06/27
This will be an ongoing discussion
-
Critical care statement: A total of 35 minutes of critical care time was provided for this patient today. This includes management of unstable vital signs, evaluation of the patient at bedside, reviewing the patient's pertinent medical records
including ventilator settings, arterial blood gases, radiographs, microbiology, laboratory evaluations and discussion with primary team, critical care nursing, and respiratory therapy.

Data reviewed:
Chest x-ray 06/08/2025: Reviewed, ET tube in place. Left lower lobe airspace disease. Cardiomegaly
-
CT abdomen pelvis 06/05/2025:
The patient is significantly distended, and much of the abdominal and upper pelvic soft tissues extending anterior and to the left of the [id number], which limits evaluation, as it becomes difficult to confidently follow the loops of bowel.
There is distention of the rectum with air and stool, measuring 9.3 cm in diameter. There is marked distention of the sigmoid colon which extends into the right and central upper abdomen, with the sigmoid colon measuring up to 18 cm in diameter. The
sigmoid colon contains a moderate to large amount of stool, mainly inferiorly. There appears to be moderate distention of the rest of the visualized colon.
Small bowel loops are present, and do not appear to be significantly distended, similar appearance to prior examination.
Of note, the cecum cannot be confidently identified on the present examination
No gross evidence of free intraperitoneal air.
There is patchy parenchymal opacity within the visualized lower lungs, most likely atelectasis. A component of pneumonia is also possible, although felt to be less likely. There is no significant pleural effusion and no significant pericardial
effusion.
Coronary artery calcifications are present. Please correlate with symptoms of and risk factors for coronary artery disease, with further workup as clinically appropriate.
Of note, the stomach is not distended.
Subjective Dataa
Subjective Data
Date of Service:
Date of Service: June 28, 2025
Chief Complaint: I&C Technician Follow Up (Septic shock/respiratory failure require mechanical ventilation)
Subjective:
Patient remains critically ill, ventilator dependent. Oxygen requirement seems to wax and wane depending on position. Currently on 70%. Tolerating ASV. Has been off propofol now for 24 hours. Minimal tracheotomy secretions. Low-grade fever
continues
Objective Data
Data Reviewed
Vital Signs / I&O / Oxygen:
Vital Signs
Temp Pulse Resp BP Pulse Ox
99.6 F 98 20 160/89 93
06/28/25 05:00 06/28/25 06:00 06/28/25 06:00 06/28/25 06:00 06/28/25 06:00
Intake and Output
06/27/25 06/28/25 06/29/25
06:59 06:59 06:59
Intake Total 2693.8 / 2693.8 2175.9 / 2175.9
Output Total 3070 / 3070 2924 / 2924
Balance -376.2 / -376.2 -748.1 / -748.1
SaO2 [ASV] 93
SaO2 [A/C] 95
SaO2 93
Nasal Cannula flow liters per 3
minute
Physical Exam
General: Comfortable (Intermittent rapid shallow breathing), Other (Large neck) and Other (Right upper extremity PICC)
HEENT: Normocephalic, Anicteric and Other (Dry mucosa, mouth breather)
Cardiovascular: S1-S2, Regular Rhythm (Tachycardic), Murmur (1-2/6 systolic murmur) and Peripheral Edema (1+, lower extremity stockings in place)
Respiratory: Wheeze (n), Crackles (n), Rhonchi (n), Non-Labored Respirations and Other (Tracheostomy)
GI: Soft, Distended (Morbidly obese), Non Tender, Other (Colostomy. 3 CHRISTINE drains with serous drainage, inferior portion of incision open with dressing) and Other (NG tube in place minimal drainage)
Neurology: Other (Patient does spontaneously move extremities, follows commands during sedation vacation, moves all extremities, opens eyes and turns head)
Skin: Cyanosis (n), Jaundice (n), Rash (n) and Other (Mid abdominal incision with fred, inferior portion open, CHRISTINE drainage serous)
Labs/Micro/Reports
Lab Data
06/28/25 04:07
06/28/25 04:07
Microbiology
06/20/25 16:38 Peritoneal Fluid Body Fluid Culture - Final
06/20/25 16:38 Peritoneal Fluid Gram Stain - Final
06/20/25 16:34 Peritoneal Fluid Body Fluid Culture - Final
Pseudomonas aeruginosa
06/20/25 16:34 Peritoneal Fluid Gram Stain - Final
[2025-06-28] MEDS: VENTOLIN NEBULES 2.5 MG INH (07:56)
[2025-06-28] MEDS: DESENEX/MITRAZOL/ZEASORB 1 APPLIC TOPICAL ×2 (08:11→20:27)
[2025-06-28] MEDS: MIRALAX 17 GRAMS TUBE ×2 (08:12→19:23)
[2025-06-28] MEDS: HYDROPHOR 1 APPLIC TOPICAL (08:12)
[2025-06-28] MEDS: NSS (PRESERVATIVE FREE) 10 ML IV (08:13)
[2025-06-28] MEDS: PROTONIX IV 40 MG IV (08:13)
[2025-06-28] MEDS: SANTYL OINTMENT 1 APPLIC TOPICAL (08:14)
[2025-06-28] MEDS: SUBUTEX 4 MG SL (08:15)
[2025-06-28 08:16] LABS: Glucose - Point of Care 135 mg/dl (70-99)
[2025-06-28] MEDS: RELISTOR 12 MG SC (09:00)
[2025-06-28] MEDS: NOVOLIN R INSULIN INFUSION 100 IV (09:15)
[2025-06-28] MEDS: SUBLIMAZE 50 MCG IV ×4 (09:22→20:21)
--- NOTE | 2025-06-28 09:30 | PTCARENOTE ---
Complete assessment done, Pt will open eyes to name, will move exts sl to command, bilat soft wrist restraints on for pt safety, +PERRL. HR ST with PVCs, BP 153/89. R arm PICC with fentanyl at 75 mcg, TPN at 50 ml/hr, and Reg Insulin drip,
presently at 4.5 u/hr. Accu checks q 2hrs. Pt received this am on Vent with settings at ASV mode, 70%, 100% MV, and 10 peep, O2 sat= 91%, Pt suctions for very scant secretions, could not get enough sputum to sent a sputum specimen. Pt on cont
turning at 50 degrees q2 hr, and pt was percussed for 15 mins, and will do q 4hrs. Abd is large, 3 JPs intact, scant drainage of 'B', none for 'A', sm amt serous for R mid lower CHRISTINE. Dr Gambino in to see pt, Abd drsgs were removed, wound assessed, and
wound care and redressed by Dr Gambino and this RN. Pt's NGT with TFs, jevity 1.5, which was increased from 10 mlhr to 20 ml/hr, with intermittent 25 ml water flushes q 1 hr. Pt's L colostomy without drainage. see MAR for meds given to help with BM
output. Drsg intact on L lower ext and R top of foot, and sacrum. Mason cath drainge 60-120 ml/hr yellow urine. Mouth care and debi-care done, after wound drsgs changed. Dr Quispe was also in to assess pt.
--- NOTE | 2025-06-28 09:50 | W.PN.GS2 ---
Addendum entered and electronically signed by Shahram Gambino MD 06/28/25 12:35:
I saw and examined the patient.
The COMPUTER PROGRAMMING MANAGER's note was reviewed and I agree with the note.
Comment: Remains vented/sedated. Drain clear serous, IR drains not holding suction well. Minimal NG residual, incr TF to 20/hr. TPN
Original Note:
Today's Communication / Plan
-
TF at 20ml/hr, continue TPN
Assessment / Plan
-
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
obstipation associated with megacolon. WBC 11.[address] showing gaseous distention of the colon, diameter of the sigmoid up to 18 cm in diameter. He received a dose of neostigmine, which failed. He underwent attempt at decompressive sigmoidoscopy,
but encountered too much stool. Due to refractory nature of his issue, we proceeded with surgery.
POD 20 exlap, sigmoidectomy, end-colostomy; iatrogenic spillage of stool - controlled and abdomen washed out, no colonic ischemia or perforation
POD 3 Tracheostomy placement
06/15 and 06/20 bronch for mucous plugging
06/19 midline incision opened up, +pseudomonas/mixed aneerobes
06/20 IR drains x2 to RUQ +pseudomonas in 1 of 2
Fevers continue, VDRF, VSS
Leukocytosis trending up today
H/H stable
Insulin gtt for hyperglycemia with TPN in setting of h/o DM
Tolerating trickle feeds with low residuals thus far but no stoma outputs since recent OR for trach
Plan:
- Continue trickle feeds (increase rate to 20ml/hr) and TPN, appreciate dietary recs. Propofol now off and TF increased. Discussed dosing of TPN with pharmacy team today and adjusted accordingly.
- ID following for management of ABX, Seroquel d/cd in case of drug fever
- Discussed case with pulmonology/ICU team
- Continue morales given retention with removal
- Eventual PEG with GI when medically stable
- Continue local wound care with packing bid and santyl
Medical management as per ICU team
Subjective Data
-
Date of Service: June 28, 2025
Pt seen and examined at bedside with Dr. Gambino. [facility] and on Fentanyl. Unable to provide subjective portion of exam.
Objective Data
-
Intake and Output
06/27/25 06/28/25 06/29/25
06:59 06:59 06:59
Intake Total 2693.8 / 2693.8 2175.9 / 2275.4 328.5 / 328.5
Output Total 3070 / 3070 2924 / 2984 335 / 335
Balance -376.2 / -376.2 -748.1 / -708.6 -6.5 / -6.5
Intake:
IV fluids (Total) 540.8 / 540.8 320.9 / 335.4 38.5 / 38.5
Fentanyl gtt 180.0 / 180.0 127.5 / 135.0 22.5 / 22.5
Insulin 122.5 / 122.5 145.0 / 152.0 16.0 / 16.0
Propofol 238.3 / 238.3 48.4 / 48.4
TPN/PPN 1328 / 1328 1365 / 1415 100 / 100
Tube feeding 230 / 230 140 / 150 40 / 40
Feeding tube flush amount 575 / 575 350 / 375 150 / 150
Amount instilled into Drain (
Total)
Right Middle Abdomen Milton-
Vo B Placed in IR
Right Upper Abdomen Milton-
Vo A Placed in IR
Output:
Drain Output (Total)
Right Lower Abdomen Milton-
Vo
Right Middle Abdomen Milton-
Vo B Placed in IR
Right Upper Abdomen Milton- 0 0 0
Vo A Placed in IR
Urine, Morales 2785 / 2845 320 / 320
Urine, Voided 875 / 875 124 / 124
Straight cath output 217 / 2175
Other:
How many times incontinent 1
SMALL amount urine
How many times incontinent 1
MODERATE amount urine
How many times incontinent 1
SATURATED amount urine
Vital Signs
Temp Pulse Resp BP Pulse Ox
99.6 F 104 32 160/89 93
06/28/25 05:00 06/28/25 07:56 06/28/25 07:56 06/28/25 06:00 06/28/25 07:56
Lab Results
06/28/25 04:07
06/28/25 04:07
Calcium 8.9 mg/dl (8.4-10.2) 06/28/25 04:07
Phosphorus 3.1 mg/dl (2.5-4.5) 06/27/25 03:40
Magnesium 2.2 mg/dl (1.6-2.3) 06/28/25 04:07
Total Bilirubin 0.6 mg/dl (0.2-1.3) 06/28/25 04:07
Direct Bilirubin 0.4 mg/dl (0.0-0.4) 06/15/25 04:25
AST 58 U/L (17-59) 06/28/25 04:07
ALT 30 U/L (0-50) 06/28/25 04:07
Alkaline Phosphatase 151 U/L (38-126) H 06/28/25 04:07
Total Protein 7.1 g/dl (6.3-8.2) 06/28/25 04:07
Albumin 2.7 g/dl (3.5-5.0) L 06/28/25 04:07
Physical Exam
-
NAD
Vent to trach
ABD soft, ND, obese
Midline incision open at base, granulating well but still with some fibrinous tissue to base upper portion of wound. Other fred intact.
Drains with serous outputs x2, upper right drain with cloudy serous outputs. Upper drains not holding suction.
Stoma pink/viable with bowel sweat in appliance
NGT with trickle tube feedings being instilled
Patient has a morales catheter: Yes
Patient has a central line: Yes
--- NOTE | 2025-06-28 10:08 | W.PN.ID1 ---
Date of Service
Date of Service: June 28, 2025
Today's Communication
Add back empiric Vancomycin to meropenem.
Assessment / Plan
# Purulent peritonitis
# Colonic inertia with megacolon; status post ex lap, decompression, colostomy, stool leakage into the abdomen requiring washout 06/08/2025
# s/p Septic shock
# PNA with Pseudomonas
# Fever persists
# Leukocytosis trending up
# VDRF s/p trach06/25/25
# On TPN
- 06/08/25 Exploratory laparotomy, lysis of adhesions, sigmoidectomy, decompression of right colon, abdominal washout, creation of end descending colostomy, umbilical hernia repair
- No OR cx
- Blood cultures neg
- 06/15 s/p bronch with airway clearance; cx Pseudomonas
- 06/19 Colorectal opened midline abd distal incision. cx cx Pseudomonas, mixed anaerobes
- 06/20 aspiration/drainage of right abdominal peritoneal collections x 2. 1 of 2 cx : Pseudomonas
- Fever persist.
Of note Pseudomonas sensitive to Zosyn, meropenem.
Seroquel dc'd 06/27, in case of drug fever.
Repeat blood cx's x 2, Neg to date
Per nurse, no sputum from trach to send for cx at this time.
- Check UA reflex to Ucx
- Consider dc PICC if fever/wbc persist
- s/p 10d empiric micafungin
- s/p Vancomycin IV x 6d
- s/p Zosyn(8d) -> continue meropenem (d#10).
- Add back empiric Vancomycin IV
- trend temps/wbc
- Pt remains critically ill; on vent
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
HFrEF
HTN
DM
Afib
HLD
Colonic Inertia / Dysmotility
Chronic opioid dependence
Advanced bilateral lower extremity venous insufficiency
Morbid obesity (BMI~43)
Chief Complaint
-: Fever, Leukocytosis and Other (Purulent peritonitis)
Subjective / Review of Systems
On vent
Vital Signs / Physical Exam
Vital Signs
Vital Signs
Temp Pulse Resp BP Pulse Ox
99.6 F 104 32 160/89 93
06/28/25 05:00 06/28/25 07:56 06/28/25 07:56 06/28/25 06:00 06/28/25 07:56
Selected Entries
06/28/25
04:00
Temp 101.3 F H
Physical Exam
Constitutional: Acutely Ill and Obese
Cardiovascular: Regular Rate and S1/S2
Pulmonary: Clear (anterior lungs), Coarse and Other (Trach vent)
Gastrointestinal: Soft, Non Tender, Non Distended and Other (RLQ drain serosanguinous; R upper CHRISTINE drain x 2 empty. Lower incision dressing dry)
Genito-Urinary: Mason and Clear Urine
Extremities: Edema and Venous Insufficiency
Lines: PICC (RUE no erythema)
Objective Data
Lab Data
Lab Results
06/28/25 04:07
06/28/25 04:07
PT 17.4 Sec (11.4-14.6) H 06/09/25 00:01
INR 1.40 06/09/25 00:01
APTT 106.6 Sec (23.4-35.0) H 06/24/25 04:03
Estimated Creat Clear > 125 ml/min 06/28/25 04:07
Lactic Acid 0.9 mmol/L (0.7-2.0) 06/09/25 00:01
Total Bilirubin 0.6 mg/dl (0.2-1.3) 06/28/25 04:07
AST 58 U/L (17-59) 06/28/25 04:07
ALT 30 U/L (0-50) 06/28/25 04:07
Alkaline Phosphatase 151 U/L (38-126) H 06/28/25 04:07
C-Reactive Protein > 270.00 mg/L (0.0-10.00) H 06/11/25 03:22
Most recent labs reviewed.
Micro Results:
06/27/25 09:56 Blood Culture - Preliminary
Blood/Venous No Growth in 24 hours- Final report to follow
06/27/25 10:17 Blood Culture - Pending
Blood/Venous
06/20/25 16:38 Body Fluid Culture - Final
Peritoneal Fluid Gram Stain - Final
06/20/25 16:34 Body Fluid Culture - Final
Peritoneal Fluid Pseudomonas aeruginosa
Gram Stain - Final
06/19/25 09:59 Wound Culture - Final
Abdomen Pseudomonas aeruginosa
Gram Stain - Final
06/19/25 09:59 Anaerobic Culture - Final
Abdomen
06/20/25 11:01 Respiratory Culture - Final
Bronch Right Lower Lobe Pseudomonas aeruginosa
Gram Stain - Final
06/20/25 11:01 Acid Fast Bacilli Smear - Preliminary
Bronch Right Lower Lobe Acid Fast Bacilli Culture - Preliminary
06/20/25 11:01 Fungal Culture - Preliminary
Bronch Right Lower Lobe Culture in progress.
Positive cultures are reported as soon as detected.
Final report to follow in four to five weeks.
06/15/25 10:08 Fungal Culture - Preliminary
Bronch Left Lower Lobe Evelyn albicans
06/17/25 13:11 MRSA Screen - Final
Nose No Methicillin Resistant Staphylococcus aureus isolated.
06/13/25 12:07 Blood Culture - Final
Blood/Venous No Growth - Final Report
06/13/25 12:07 Blood Culture - Final
Blood/Venous No Growth - Final Report
06/15/25 10:08 Acid Fast Bacilli Smear - Preliminary
Bronch Left Lower Lobe Acid Fast Bacilli Culture - Preliminary
06/15/25 10:08 Respiratory Culture - Final
Bronch Left Lower Lobe Pseudomonas aeruginosa
Gram Stain - Final
06/14/25 11:22 Respiratory Culture - Final
Tracheal Aspirate Pseudomonas aeruginosa
Gram Stain - Final
06/11/25 09:27 Blood Culture - Final
Blood/Venous No Growth - Final Report
06/11/25 09:59 Blood Culture - Final
Blood/Venous No Growth - Final Report
06/06/25 07:57 MRSA Screen - Final
Nose No Methicillin Resistant Staphylococcus aureus isolated.
Imaging:
06/24/25 CXR: Slightly increased basilar predominant airspace opacities, worse on the left. Findings may be related to pneumonia or worsening atelectasis.
06/18/25 CT c/a/p: Suspected moderate volume mildly complex presumed free fluid in the abdomen, overall increased in volume in comparison to recent prior study, most prominently located in the right subhepatic region, right subdiaphragmatic region
and likely left abdomen/pelvis.
06/16/25 CXR: There is moderate airspace disease in right lower lung field concerning for pneumonia. There is obscuration of the left hemidiaphragm suggesting left lower lobe pneumonia
06/15/25 CXR: No pneumothorax status post bronchoscopy. Progressive homogeneous increased retrocardiac opacity. Suspect mild left perihilar and right infrahilar opacity which could represent atelectasis or pneumonia.
06/13/25 CT a/p: Very limited study. Small volume fluid in the abdomen, particularly in the left abdomen mildly complex. As this fluid is incompletely included, it cannot be determined whether this totally represents likely free fluid or combination
of free fluid and abnormal focal fluid collection. Additional small abnormal focal fluid collections cannot be excluded on the basis of this markedly limited study. Apparent recent prior partial sigmoidectomy with large volume stool seen in the
residual sigmoid colon and rectum.
06/10 CXR: Stable CHF and bibasilar atelectasis and/or pneumonia.
06/08/25 CXR: Diffuse marked colonic dilation. Measurement of caliber of the upper colon is slightly greater then obstruction series of June 07, 2025. Multiple air-fluid levels compatible with stasis. Moderate amount of stool within the inferior
aspect of the right colon as well as within the rectum. No gross evidence for free intraperitoneal air.
06/05/25 CT a/p: Significant gaseous distention of a large portion of the colon. This contributes to limitation of this examination, as the patient cannot be fully included on the [id number] of the CT scanner. If there can be some distal colonic
decompression, repeat scan could be considered, when hopefully the patient could be entirely included on the [id number] of the exam. No gross evidence for free intraperitoneal air. Patchy parenchymal opacity within the visualized lower lung, most
likely atelectasis. Pneumonia is a differential consideration, felt to be less likely based on morphologic appearance.
Care Review
Plan reviewed with: Nurse
[2025-06-28 10:16] LABS: Glucose - Point of Care 145 mg/dl (70-99)
--- NOTE | 2025-06-28 10:28 | PHA.VAN.IN ---
Addendum entered and electronically signed by Hannah Love RPH 06/28/25 13:08:
Vanc 1750mg 1100 dose not yet administered.
Will change to Vanc 2000mg for first dose PLUS 1g at 2200 then start 1750mg Q12H at 0600 - patient likely will be slow to accumulate given weight > 100kg. Will give 3 doses ~8H as a divided load.
Original Note:
Assessment
- Assessment
Renal Function: Appears similar to baseline (BUN may be slightly increased)
Concomitant Antimicrobials: meropenem
- Previous Dosing Experience
Previous Regimen: Vanc 1750mg Q12H
Date of Regimen: Jun 2025 (earlier this admission)
Provided AUC of: 363
Patient's SCR is: Similar to previous dosing experience
Patient's weight is: Similar to previous dosing experience
Regimen provided the following additional patient-specific PK:
ke=0.0853
half-life = 8.1 H
Cmax 22.3 mcg/ml
Cmin 9.5 mcg/ml
Vd 113 L (~0.8 L/kg)
Vanc Cl ~ 9.6 L/h
Levels were drawn after 4th maintenance dose of current regimen and peak was drawn appropriately (~2H after end of prior infusion)
Given BMI, patient may not have been fully at steady state
AUC Dosing Plan
- Empiric Dosing
Maintenance Regimen: Vanc 1750mg Q12H - first dose now then 2000 then 0600 in lieu of load
Will restart prior regimen as unclear if was fully at steady state at time of levels and patient's BUN up slightly from prior experience
- Monitoring
No levels ordered at this time: consider levels in next few days
Pharmacokinetics Vancomycin I
- -
Patient Age: 64
Patient Sex: Male
Vancomycin Day #: 1
Indication: Gi / Intra-Abdominal
Requesting Provider: Dr. Quispe
Pertinent Antimicrobial Allergies:
NKDA
Height / Weight:
Height 6 ft 3 in
Actual Weight 142.2 kg
Pertinent Past Medical History: BMI ~ 40
- Vital Signs / Lab Results
Temp Pulse Resp BP Pulse Ox
99.6 F 104 32 160/89 93
06/28/25 05:00 06/28/25 07:56 06/28/25 07:56 06/28/25 06:00 06/28/25 07:56
Lab Results - Hematology
06/26/25 06/27/25 06/28/25
03:42 03:40 04:07
WBC 14.8 H 12.5 H 17.1 H
Lab Results - Chemistry
06/26/25 06/27/25 06/28/25
03:42 03:40 04:07
BUN 28 H 27 H 30 H
Creatinine 0.5 L 0.6 L 0.5 L
Estimated Creat Clear > 125 > 125 > 125
Albumin 2.3 L 2.7 L
Microbiology Results
06/27/25 10:17 Blood Culture - Preliminary
Blood/Venous No Growth in 24 hours- Final report to follow
06/27/25 09:56 Blood Culture - Preliminary
Blood/Venous No Growth in 24 hours- Final report to follow
--- NOTE | 2025-06-28 11:30 | PTCARENOTE ---
Trach care done, Shiley 8.0, inner cannula XLT changed out. Dr Laurent in to see and assess pt. Pt put on new vent settings of CPAP/ASV mode, (CPAP 5, PS 20). O2 sat 89%
--- NOTE | 2025-06-28 12:19 | W.PN.HOSP.TC ---
Today's Communication/Plan
-
Continue management in the ICU
Assessment / Plan
Assessment / Plan
Impression:
Mr. Knapp is a 64-year-old male with medical history of HFpEF, A-fib/flutter, IDDM, obesity, chronic pain with subsequent opioid dependence, and chronic constipation with colonic dysmotility who presented with shortness of breath, abdominal
bloating and discomfort, constipation. His last bowel movement was 2 weeks prior to arrival. He is having increasing difficulty breathing due to worsening abdominal distention. He has had multiple similar episodes since September 2024 and has
previously required decompression. He has been treated with enemas and neostigmine previously. Abdominal imaging showed significant colonic distention with air-filled loops of bowel. He also had patchy parenchymal opacities within the mid to
lower lungs. He was mildly hypoxic and has been started on antibiotics. He has remained afebrile with a mild leukocytosis of just over 12,000. He has been admitted for further evaluation and management.
Seen by GI, failed neostigmine, enema, status post nonsuccessful decompressive flexible sigmoidoscopy.
Surgery team consulted.
s/p Exploratory laparotomy, lysis of adhesions, sigmoidectomy, decompression of right colon, abdominal washout, creation of end descending colostomy, umbilical hernia repair on 06/08
admitted to ICU postoperatively, intubated.
Patient had fever,Infectious disease consult, started on zosyn.
Patient was still running fever, added micafungin.
CT chest: New right lower lobe consolidation with air bronchograms, atelectasis versus pneumonia, Possible small bilateral pleural effusions.
CT abdomen/pelvis shows: Small volume fluid in the abdomen, particularly in the left abdomen mildly complex. As this fluid is incompletely included, it cannot be determined whether this totally represents likely free fluid or combination of free
fluid and abnormal focal fluid collection. Additional small abnormal focal fluid collections cannot be excluded on the basis of this markedly limited study
Patient received Lasix.
Difficult extubation, discussion regarding trach
Currently intubated, surgery okay with trickle feeding.
Difficult extubation, ENT consult for trach
06/25
remains intubated.
for trach today.
06/26
S/p trach
Assessment/Plan:
Colonic dysmotility/ileus:
- Abdomen remained significantly distended despite multiple medical enemas and subsequent bowel movements
- Upgraded to IMU 06/07, pushed 4 mg neostigmine around 1:30 PM, no significant peristaltic response
- Ultimately required surgical intervention, brought to the OR 06/08 for ex lap with lysis of adhesions and sigmoidectomy with end descending colostomy, decompression of right colon, abdominal washout and umbilical hernia repair
- ICU postoperatively, intubated
- Colorectal surgery following, increased output from colostomy now with brown stool
- Lower fred removed from surgical incision with mucopurulent output, wound packed, cultures obtained, redressed
- IR placed 2 abdominal drains yesterday 06/20 with serosanguineous output, cultures pending
- Continue TPN, holding tube feeds
- Colorectal surgery okay with transitioning anticoagulation to therapeutic Lovenox as needed
- TPN/TF
Septic shock, requiring pressors:
- This is likely a primary intra-abdominal infection, stool leakage into the abdomen requiring washout, also likely has concomitant pulmonary infection
- Tracheal aspirate from 06/14 growing pansensitive Pseudomonas
- ID following, continuing vancomycin and micafungin, Zosyn switched to meropenem
- Leukocytosis improving, fever curve improving
- Vasopressors as needed, currently on hold
- Precedex discontinued as it was useless and keeping him sedated, continuing sedation with propofol and fentanyl
06/27
As of today, patient still running fever.
Seroquel discontinued
completed 10 empiric micafungin
continue Vancomycin IV
continue meropenem
Acute hypoxic respiratory failure (currently intubated in the ICU postoperatively)
- Continue mechanical ventilation, ETT replaced 06/19 by systems development consultant
- Persistent copious thick secretions and left lower lobe volume loss
- Underwent bronchoscopy with BAL left lower lobe 06/15 by systems development consultant, cultures growing Pseudomonas, repeat bronchoscopy with BAL today 06/20 with aspiration of copious secretions
- Continue antimicrobial coverage with micafungin, vancomycin, and meropenem
- Hypertonic nebulized saline 3 times a day with albuterol, aggressive chest PT
- Started Seroquel 50 mg in the morning and 100 mg at night, monitor QTc
- Patient was inadequately sedated with Precedex which has now been discontinued, restarted propofol and fentanyl drips
- Additional Lasix pushes as needed
- Weaning trials as tolerated
- ENT consult for tracheostomy tomorrow
06/25
remains intubated.
for trach today.
06/26
Status post trach
paroxismal A-fib/flutter:
- Currently rate controlled, holding home metoprolol, continue home amiodarone 200 mg at night via OGT
- Holding home Xarelto, have been anticoagulating with IV heparin, colorectal surgery okay with transition to therapeutic Lovenox as needed
IDDM:
- Insulin drip.
HFrEF:
- Acute on chronic chronic
- Holding home metoprolol succinate 100 mg
- Lasix pushes as needed, holding spironolactone, monitor daily weights
- No need for afterload reduction due to hypotension
CODE STATUS: Full code
DVT prophylaxis: Heparin drip
Diet: TPN
Disposition: Continue management in the ICU.
Dc Seroquel
Total time spent on today's encounter was 74 minutes which included time spent in counseling the patient/family regarding diagnosis and treatment plan as listed above, goals of care, and symptom management. Case was discussed with nursing staff,
specialists, and care coordinators/case management. All labs and imaging personally reviewed by me. Remainder the time spent in detailed review of previous records, lab data, imaging, and other medical provider documentation.
Anticipated Discharge: > 48 hours
Subjective/Interval History
-
Date of Service: June 28, 2025
Status post trach, minimal communication, fever slightly improved.
Objective Data
-
Labs:
Laboratory Results
06/28/25
04:07
WBC 17.1 H
Hgb 9.6 L
Hct 32.5 L
Plt Count 385 D
Sodium 146 H
Potassium 4.2
Chloride 103
Carbon Dioxide 40 H
BUN 30 H
Creatinine 0.5 L
Glucose 177 H
Calcium 8.9
Total Bilirubin 0.6
AST 58
ALT 30
Alkaline Phosphatase 151 H
Vital Signs:
Vital Signs
Temp Pulse Resp BP Pulse Ox
99.6 F 104 27 153/84 89
06/28/25 05:00 06/28/25 12:00 06/28/25 12:00 06/28/25 12:00 06/28/25 12:00
I&O
06/27/25 06/28/25 06/29/25
06:59 06:59 06:59
Intake Total 2693.8 / 2693.8 2175.9 / 2275.4 435.5 / 435.5
Output Total 3070 / 3070 2924 / 2984 405 / 405
Balance -376.2 / -376.2 -748.1 / -708.6 30.5 / 30.5
Physical Exam
-
General: Well Developed, Appears in Distress and Obese
HEENT: Normocephalic, Atraumatic, Moist Mucous Membranes, Tracheotomy, Tracheostomy Collar, No Ptosis, PERRLA, Nose Appears Normal and Other
Respiratory: Rales, Rhonchi and Non Labored Respirations
Cardiac: Regular Rhythm and S1/S2
Breast: Deferred by me
GI: Other (Colostomy bag, midline incision clean)
Musculoskeletal: No Clubbing and No Cyanosis
Skin: Warm
Neuro: Awake and Alert
Psych: Calm
[2025-06-28 12:23] LABS: Glucose - Point of Care 171 mg/dl (70-99)
[2025-06-28] MEDS: LOVENOX 120 MG SC ×2 (12:30→21:31)
--- NOTE | 2025-06-28 12:50 | PTCARENOTE ---
Pt's O2 sats dropping to 84% on present vent CPAP/PSV settings, Dr Laurent updated, and vent settings put back to ASV 70%, 10 peep, 100% min vol. Temp rising to 101.1 and cooling blanket turned on. Pt's to room and was updated and all questions
answered.
[2025-06-28] MEDS: VANCOCIN 540 MG IV (13:20)
[2025-06-28 13:49] LABS: Urine Character Clear (Clear)
[2025-06-28 14:09] LABS: Glucose - Point of Care 164 mg/dl (70-99)
[2025-06-28 14:32] LABS: Urine Squamous Cell 0-2 /LPF (Few); Urine White Cell 0-2 /HPF (0-5)
--- NOTE | 2025-06-28 16:00 | PTCARENOTE ---
Mouth care, trach care, debi care, and complete CHG bath given. L lower leg drsg changed, Top of R foot drsg removed, cleaned and left open to air , as sm wound is closed. Sacral foam pad changed. Sputum culture was obtained and sent to lab.
[2025-06-28 16:16] LABS: Glucose - Point of Care 162 mg/dl (70-99)
[2025-06-28] MEDS: DIPRIVAN 100 IV ×2 (16:50→22:50)
--- NOTE | 2025-06-28 17:01 | PTCARENOTE ---
Pt becoming restless, RR 41, in spite of fentnyl boulus given. O2 sat=84-85% on ASV 70%, 100% min vol, and10 peep. Pt suctioned for scant segovia secretions. Dr Laurent updated and assessed pt. peep increased to 12, and propofol restarted at 20
mcg/kg/min.
--- NOTE | 2025-06-28 17:40 | PTCARENOTE ---
Pt NGT residual check is now [address] Jay was updated. 700 ml of residual is to be discarded and TFs put on hold for now and overnight until surg reassess in am. TPN remains infusing. Triglycerides drawn and sent to lab.
[2025-06-28 18:12] LABS: Triglycerides 140 mg/dl (10-149)
--- NOTE | 2025-06-28 19:00 | PTCARENOTE ---
Pt's temp increased again at 1815 to 103.0 rectal. Tylenol given, cooling blanket on, and ice pack to underarms and groins bilat.
--- NOTE | 2025-06-28 19:54 | PTCARENOTE ---
Pt received start of shift, HR ST w/ PVCs and PACs on telemetry. RR 40s, increased work of breathing. POX remaining 90-93%. PRN fent bolus - see MAR. Increased propofol infusion. Cooling blanket for high temp (103.8 max). Ice packs on. #8 shiley
long; Vent settings ASV 70% FiO2, 100% MV, 12 PEEP. Mason draining clear yellow urine. NGT R nare 75cm. No stool output from colostomy.
[2025-06-28 20:23] LABS: Glucose - Point of Care 144 mg/dl (70-99)
[2025-06-28] MEDS: VANCOCIN 200 IV (21:30)
[2025-06-28] MEDS: PACERONE 200 MG TUBE (21:30)
[2025-06-28] MEDS: LIPITOR 40 MG TUBE (21:30)
[2025-06-28] MEDS: Parenteral Nutrition, Central 1340 IV (21:46)
[2025-06-28 22:15] LABS: Glucose - Point of Care 155 mg/dl (70-99)
[2025-06-29] VITALS (26 sets, daily range): BP systolic 88–145; BP diastolic 47–92; BMI 39.0
[2025-06-29 00:17] LABS: Glucose - Point of Care 155 mg/dl (70-99)
--- NOTE | 2025-06-29 00:48 | PTCARENOTE ---
Sediment noted in urine, yellow, cloudy. Pt extremely diaphoretic. Fever persists. PRN tylenol - see MAR. Continuing with ice packs and cooling blanket. TPN infusing as ordered. Propofol titrating down as tolerated. RR 30s. POX >92%.
[2025-06-29 02:17] LABS: Glucose - Point of Care 148 mg/dl (70-99)
[2025-06-29] MEDS: TYLENOL ORAL SOLUTION 650 MG TUBE (02:21)
[2025-06-29 03:49] LABS: Hematocrit 34.7 % (39.0-52.0); Hemoglobin 10.2 g/dL (13.0-18.0); Mean Corp Hgb Conc. 29.4 g/dL (33.0-37.0); Mean Corpuscular Volume 86.3 fL (80.0-94.0); Platelet Count 448 10^3/uL (130-400); Red Cell Dist. Width 15.7 % (11.5-14.5)
[2025-06-29 04:03] LABS: ALT (SGPT) 44 U/L (0-50); AST (SGOT) 93 U/L (17-59); Albumin 2.7 g/dl (3.5-5.0); Alkaline Phosphatase 146 U/L (38-126); Blood Urea Nitrogen 34 mg/dl (9-20); Calcium 8.8 mg/dl (8.4-10.2); Carbon Dioxide 40 mmol/L (22-30); Chloride 109 mmol/L (98-107); Estimated Creatinine Clearance > 125 ml/min; Glucose 161 mg/dl (70-99); Magnesium 2.2 mg/dl (1.6-2.3); Potassium 4.3 mmol/L (3.5-5.1); Sodium 151 mmol/L (135-145); Total Protein 7.4 g/dl (6.3-8.2); Triglycerides 134 mg/dl (10-149); eGFR > 60.00
[2025-06-29] MEDS: NOVOLIN R INSULIN INFUSION 100 IV ×2 (04:07→17:23)
[2025-06-29] MEDS: SUBLIMAZE 100 IV ×2 (04:09→14:41)
[2025-06-29 04:25] LABS: Glucose - Point of Care 156 mg/dl (70-99)
[2025-06-29 04:46] LABS: B.E. 14.5 mmol/L; O2 Saturation % 98.1 % (94-98); PCO2 61 mmHg (35-48); PO2 93 mmHg (83-108)
[2025-06-29 04:52] LABS: HCO3 41.4 mmol/L (21-28)
[2025-06-29] MEDS: DIPRIVAN 100 IV ×3 (04:54→17:24)
[2025-06-29] MEDS: MERREM 500 MG IV ×4 (05:10→23:15)
[2025-06-29] MEDS: STERILE WATER FOR INJECTION 10 ML IV ×4 (05:10→23:15)
[2025-06-29] MEDS: VANCOCIN 535 MG IV ×2 (05:10→17:15)
--- NOTE | 2025-06-29 06:02 | PTCARENOTE ---
0508 12 beat run VT. VSS.
--- NOTE | 2025-06-29 06:13 | PTCARENOTE ---
Stool now present in colostomy bag - brown, soft.
[2025-06-29 06:16] LABS: Glucose - Point of Care 198 mg/dl (70-99)
[2025-06-29 07:10] LABS: Glucose - Point of Care 164 mg/dl (70-99)
[2025-06-29 07:32] LABS: Glucose - Point of Care 142 mg/dl (70-99)
--- NOTE | 2025-06-29 08:05 | PN.DE.MGMTRT ---
Insulin Management
- -
06/29/2025: Diabetes Management Follow up
Patient admitted 06/05 with c/o difficulty breathing. Diabetes management consult 06/15. PMH 5 weeks of constipation with abdominal distention, HTN, A-Fib, CHF Prior to admission was taking Lantus 24 units daily with NovoLog 20 units AC and Farxiga 5
mg daily. A1C on admission 7.1%, cr today 0.5, eGFR > 60.
Patient remains intubated and sedated. Information obtained from chart and patient nurse and pharmacist. Patient s/p OR 06/08 for lysis of adhesions, sigmoidectomy, with end descending colostomy and s/p tracheostomy 06/25.
Remains on critical care glycemic protocol which was started 06/12, Glucose range 127 to 147. Patient has required 4.5 to 5 units of insulin per hour.
Receiving TPN and trickle feeds @ 10cc/hr. Will continue critical care glycemic protocol.
Discussed with nurse. Will cont to follow.
Diabetes History
- -
Type of Diabetes: 2 requiring insulin
Pre-Admission Diabetes Regimen
06/29/25
03:37
Creatinine 0.6 L
Lab Results
Hemoglobin A1c 7.8 % (4.0-5.6) H 06/22/25 03:20
Insulin Pump Settings
IP Diabetes Regimen
06/28/25 06/28/25 06/28/25
08:04 10:04 12:11
Glucose
POC Glucose 135 H 145 H 171 H
06/28/25 06/28/25 06/28/25
13:58 16:04 18:00
Glucose
POC Glucose 164 H 162 H 142 H
06/28/25 06/28/25 06/29/25
20:10 22:04 00:06
Glucose
POC Glucose 144 H 155 H 155 H
06/29/25 06/29/25 06/29/25
02:05 03:37 04:14
Glucose 161 H
POC Glucose 148 H 156 H
06/29/25 06/29/25
06:05 06:58
Glucose
POC Glucose 198 H 164 H
Meal type: Breakfast
Patient Education
[2025-06-29] MEDS: DESENEX/MITRAZOL/ZEASORB 1 APPLIC TOPICAL ×2 (08:17→20:24)
[2025-06-29] MEDS: MIRALAX 17 GRAMS TUBE ×2 (08:18→20:23)
[2025-06-29] MEDS: HYDROPHOR 1 APPLIC TOPICAL (08:18)
[2025-06-29] MEDS: SUBUTEX 4 MG SL (08:18)
[2025-06-29] MEDS: RELISTOR 12 MG SC (08:19)
[2025-06-29] MEDS: PROTONIX IV 40 MG IV (08:19)
[2025-06-29] MEDS: SANTYL OINTMENT 1 APPLIC TOPICAL (08:19)
[2025-06-29] MEDS: NSS (PRESERVATIVE FREE) 10 ML IV (08:19)
--- NOTE | 2025-06-29 08:46 | PHA.VAN.FU ---
Vancomycin Assessment / Plan
- Assessment
Renal Function: Stable
WBC's are: Trending Up
In the past 24 hrs, patient has been: Febrile (Tmax: 102.9)
Concomitant Antimicrobials: Meropenem 500 mg IV q6h
- Dosing Plan
Continue: Vancomycin 1750 mg IV q12h
- Monitoring Plan
No level(s) ordered at this time: Consider levels in the next few days
- Follow Up
Pharmacy will continue to follow.
Vancomycin Follow UP
- -
Patient Age: 64
Patient Sex: Male
Vancomycin Day #: 2
Indication: Gi / Intra-Abdominal
Requesting Provider: Dr. Quispe
Pertinent Antimicrobial Allergies:
NKDA
Height / Weight:
Height 6 ft 3 in
Actual Weight 141.6 kg
Pertinent Past Medical History: BMI ~ 40
- Vital Signs / Lab Results
Temp Pulse Resp BP Pulse Ox
101.4 F H 96 32 129/89 96
06/29/25 06:00 06/29/25 06:00 06/29/25 06:00 06/29/25 06:00 06/29/25 07:45
Lab Results - Hematology
06/27/25 06/28/25 06/29/25
03:40 04:07 03:37
WBC 12.5 H 17.1 H 22.5 H
Lab Results - Chemistry
06/27/25 06/28/25 06/29/25
03:40 04:07 03:37
BUN 27 H 30 H 34 H
Creatinine 0.6 L 0.5 L 0.6 L
Estimated Creat Clear > 125 > 125 > 125
Albumin 2.3 L 2.7 L 2.7 L
Lab Results - Urine
06/28/25
13:40
Urine Nitrite (Reflex) Negative
Leukocyte Esterase Rfl Negative
Ur Squamous Epith Cells 0-2
Microbiology Results
06/27/25 10:17 Blood Culture - Preliminary
Blood/Venous No Growth in 24 hours- Final report to follow
06/27/25 09:56 Blood Culture - Preliminary
Blood/Venous No Growth in 24 hours- Final report to follow
Therapeutic Drug Monitoring
Vancomycin Peak Cancelled 06/22/25 22:00
Vancomycin Trough 11.1 ug/ml (5-20) 06/21/25 03:32
Random Vancomycin 14.0 ug/ml 06/19/25 03:48
[2025-06-29 08:54] LABS: Glucose - Point of Care 150 mg/dl (70-99)
--- NOTE | 2025-06-29 10:41 | W.PN.CRS1 ---
Today's Communication / Plan
-
TPN
GI consult for PEG
Possible wound VAC
Assessment/Plan
-
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
obstipation associated with megacolon. WBC 11.[address] showing gaseous distention of the colon, diameter of the sigmoid up to 18 cm in diameter. He received a dose of neostigmine, which failed. He underwent attempt at decompressive sigmoidoscopy,
but encountered too much stool. Due to refractory nature of his issue, we proceeded with surgery.
POD 21 exlap, sigmoidectomy, end-colostomy; iatrogenic spillage of stool - controlled and abdomen washed out, no colonic ischemia or perforation
POD 4 Tracheostomy placement
06/15 and 06/20 bronch for mucous plugging
06/19 midline incision opened up, +pseudomonas/mixed aneerobes
06/20 IR drains x2 to RUQ +pseudomonas in 1 of 2
Tmax 103.1
Leukocytosis trending up today, now 22.5 from 17.1
H/H stable
Insulin gtt for hyperglycemia with TPN in setting of h/o DM
Tube feeds now on hold due to high residuals
Plan:
- Discussed dosing of TPN with pharmacy team today and adjusted accordingly.
- ID following for management of ABX, Seroquel d/cd in case of drug fever
- Discussed case with pulmonology/ICU team
- Continue morales given retention with removal
- Eventual PEG with GI when medically stable
- Continue local wound care with packing bid and santyl. I will reach out to wound care team to discuss placing a wound VAC.
- Medical management as per ICU team
Subjective Data
Procedure
06/08/25- Exploratory laparotomy, lysis of adhesions, sigmoidectomy, decompression of right colon, abdominal washout, creation of end descending colostomy, umbilical hernia repair
Subjective Data
Date of Service: June 29, 2025
Patient is sedated. Trach in place. Eyes are open.
Objective Data
-
Vital Signs
Temp Pulse Resp BP Pulse Ox
99.0 F 85 15 102/67 96
06/29/25 10:00 06/29/25 10:00 06/29/25 10:00 06/29/25 10:00 06/29/25 10:00
Intake & Output
06/28/25 06/29/25 06/30/25
06:59 06:59 06:59
Intake Total 2175.9 / 2275.4 2826.3 / 2905.3 312.0 / 312.0
Output Total 2924 / 2984 2725 / 2725 335 / 335
Balance -748.1 / -708.6 101.3 / 180.3 -23.0 / -23.0
Intake:
IV fluids (Total) 320.9 / 335.4 522.3 / 545.3 88.0 / 88.0
Fentanyl gtt 127.5 / 135.0 180.0 / 187.5 30.0 / 30.0
Insulin 145.0 / 152.0 129.5 / 136.5 24 / 24
Propofol 48.4 / 48.4 212.8 / 221.3 34.0 / 34.0
IV piggybacks 740 / 740
TPN/PPN 1365 / 1415 1104 / 1160 224 / 224
Tube feeding 140 / 150 160 / 160
Feeding tube flush amount 350 / 375 300 / 300
Amount instilled into Drain ( 0 / 0
Total)
Right Upper Abdomen Milton- 0 / 0
Vo A Placed in IR
Output:
Drain Output (Total) 15 15 40 / 40
Right Lower Abdomen Milton- 15 15 20 / 20
Vo
Right Middle Abdomen Milton-
Vo B Placed in IR
Right Upper Abdomen Milton- 0
Vo A Placed in IR
Gastrointestinal tube output (
Total)
Erath Sump /
Urine, Morales 2785 / 2845 191 / 1914 335 / 335
Urine, Voided 124 / 124 70 / 70
Lab Results
06/29/25 03:37
06/29/25 03:37
Physical Exam
-
General: Other (Sedated)
Abdomen: Soft, Non Distended and Non Tender
Skin: Warm and Dry
Wound: Other (Wound clean dry and intact with fibrinous material.)
[2025-06-29] MEDS: LOVENOX 120 MG SC ×2 (10:53→22:48)
[2025-06-29] MEDS: FLOMAX 0.4 MG TUBE (10:54)
[2025-06-29 10:57] LABS: Glucose - Point of Care 166 mg/dl (70-99)
--- NOTE | 2025-06-29 11:34 | W.PN.INTV ---
Today's Communication / Plan
Recommendations
- Continue to wean FiO2, lower PEEP to 10
- CT abdomen pelvis with IV contrast today in view of persistent fever
Assessment
-
Assessment: 64-year-old male with a past medical history of cardiomyopathy, hypertension, DM type II, history of chronic opioid use due to chronic arthritis now on buprenorphine, history of ERASMO, venous insufficiency and chronic back pain who
presented with shortness of breath, abdominal distention. Found to have severe colonic distention. Initially treated with neostigmine, attempted sigmoidoscopy without attempt. Underwent exploratory laparotomy 06/08/2025-developed shock requiring
vasopressors and remained on mechanical ventilation. We were consulted on 06/09/2025.
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
OxyContin/oxycodone,systolic cardiomyopathy. 7.40 , on ASV 100%, FiO2 70%, PEEP of 12.
06/29/2025 Overview: Patient currently on mechanical ventilation, ASV 100%. Persistent fevers noted, FiO2 down to 70%. Current infusions propofol, fentanyl, insulin, TPN. Tube feeding stopped and NG clamped. Minimal stool output noted in ostomy
bag. No significant endotracheal secretions.
Assessment and plan
#1. Acute hypoxemic respiratory failure post laparotomy complicated by VAP of LLL, intubated 06/08, s/p trach 06/25 (Shiley 8.0 XLT)
- Initially due to abdominal distention requiring intubation, mechanical ventilation, subsequently LLL pneumonia
- Left lower lobe dense consolidation, copious ET tube secretions noted, improved after Bronchoscopic lavage, again worse 06/19
- s/p bronchoscopy and BAL 06/16 with extensive suctioning of thick mucoid secretions in LLL. BAL growing Pseudomonas/Yeast
- Repeat bronchoscopy 06/20 with extensive clearing of thick secretions from both lower lobes. BAL negative
- CXR as of 06/26 with significant improvement in aeration, CXR 06/28 with decreased aeration left lung. Suspect patient has rotated
- presently on 70%, PEEP of 10
- Status post tracheostomy 06/25
- Continue to wean, PEEP dropped to 10, FiO2 down to 60% now.
#1a. Difficulty ventilator weaning.
- S/p Trach 06/25. Shiley, 8.0 XLT
- Body habitus, excessive secretions, severe pneumonia as well as intra-abdominal processes are contributing to failure to liberate from mechanical ventilation
- Lower FiO2 to 50%, PEEP down to 10, follow-up ABG in a.m.
#2. Septic shock suspected-source likely intraperitoneal and LLL pneumonia
- Norepinephrine weaned off
- Status post antifungal per infectious disease service, micafungin. Zosyn switched to meropenem per ID service, also on vancomycin, now on meropenem alone
- BAL culture showing Pseudomonas
- 06/18, CT chest abdomen pelvis pursued, fluid noted in the abdomen.
- Purulent discharge from inferior margin of surgical site, bedside drainage on 06/19, sent for cultures. Growing Pseudomonas
- 06/20, IR guided peritoneal drains x 2 placed for intra-abdominal collections noted on imaging, Pseudomonas noted on peritoneal fluid culture
- Persistent fevers noted. Will get a follow-up CT abdomen pelvis with contrast for further evaluation.
- Will hold Seroquel for possibility of drug fever, no change, unlikely related to Seroquel.
- Mason catheter has been discontinued 06/25. Continues with fevers despite Mason catheter removal. Recurrent urinary retention. Needed to be replaced 06/27
#3. Pseudoobstruction with megacolon, failed conservative management, s/p ex lap
- S/p ex lap, sigmoidectomy and end colostomy, iatrogenic spillage of stool, peritonitis, umbilical hernia repair, 06/08/2025
- Patient was on IV meropenem, vancomycin and micafungin, now on meropenem alone
- Small-volume stool output noted in the ostomy bag. r
- TPN infusing
- Tube feeding stopped due to high residuals. Currently NG tube clamped, minimal amount of stool output noted in ostomy bag
#4. Acute on chronic heart failure with reduced ejection fraction, LVEF 35%, Stage I diastolic dysfunction
- Patient has been diuresing well with intermittent Lasix.
- Fluid balance even over the last 24 hours
#5. Paroxysmal atrial flutter.
- Patient on outpatient Xarelto
- Heparin infusion, was held due to bloody secretions 06/25, enoxaparin p.m. started 06/26
- Empirically go to every 12 hour enoxaparin, starting 06/28. Follow for bleeding. Will continue 120 mg every 12 hours. This equates to 0.8 mg/kg
- History of cardioversion in January 2025
- Has been on amiodarone
- LFTs normal as of 06/22
#6. Pulmonary hypertension, estimated pulmonary artery systolic pressure 50-55
- Primarily group II PH related to underlying congestive heart failure
- Continue to optimize intravascular volume, keep saturations above 90%, no indication for vasodilator therapy
- Additional dose of Lasix as needed
#7. DM type II with Hyperglycemia
- Continue glycemic protocol as indicated
#8. Prolonged QTc
- Improved after replacing potassium and magnesium
- Was Tolerating Seroquel well, added 50 mg daytime dose in addition to nightly 100, EKG being followed
- Held Seroquel given fevers, last dose 06/26 in p.m.
Other medical diagnoses:
#Morbid obesity
#Venous deficiency
#History of ERASMO
#Chronic pain management due to arthritis currently on buprenorphine in an effort to wean off of OxyContin/oxycodone
-
DVT prophylaxis: -heparin infusion
GI prophylaxis, pantoprazole
-
Prognosis is guarded
-
Critical care statement: A total of 42 minutes of critical care time was provided for this patient today. This includes management of unstable vital signs, evaluation of the patient at bedside, reviewing the patient's pertinent medical records
including ventilator settings, arterial blood gases, radiographs, microbiology, laboratory evaluations and discussion with primary team, critical care nursing, and respiratory therapy.

Data reviewed:
Chest x-ray 06/08/2025: Reviewed, ET tube in place. Left lower lobe airspace disease. Cardiomegaly
-
CT abdomen pelvis 06/05/2025:
The patient is significantly distended, and much of the abdominal and upper pelvic soft tissues extending anterior and to the left of the [id number], which limits evaluation, as it becomes difficult to confidently follow the loops of bowel.
There is distention of the rectum with air and stool, measuring 9.3 cm in diameter. There is marked distention of the sigmoid colon which extends into the right and central upper abdomen, with the sigmoid colon measuring up to 18 cm in diameter. The
sigmoid colon contains a moderate to large amount of stool, mainly inferiorly. There appears to be moderate distention of the rest of the visualized colon.
Small bowel loops are present, and do not appear to be significantly distended, similar appearance to prior examination.
Of note, the cecum cannot be confidently identified on the present examination
No gross evidence of free intraperitoneal air.
There is patchy parenchymal opacity within the visualized lower lungs, most likely atelectasis. A component of pneumonia is also possible, although felt to be less likely. There is no significant pleural effusion and no significant pericardial
effusion.
Coronary artery calcifications are present. Please correlate with symptoms of and risk factors for coronary artery disease, with further workup as clinically appropriate.
Of note, the stomach is not distended.
Subjective Dataa
Subjective Data
Date of Service:
Date of Service: June 29, 2025
Chief Complaint: Research Home Economist Follow Up (Septic shock/respiratory failure require mechanical ventilation)
Subjective:
Patient currently mechanically ventilated, sedated.
Review of Systems
General: Unobtainable - Sedation
Objective Data
Data Reviewed
Vital Signs / I&O / Oxygen:
Vital Signs
Temp Pulse Resp BP Pulse Ox
99.7 F 85 15 102/67 93
06/29/25 11:00 06/29/25 10:00 06/29/25 10:00 06/29/25 10:00 06/29/25 11:26
Intake and Output
06/28/25 06/29/25 06/30/25
06:59 06:59 06:59
Intake Total 2175.9 / 2275.4 2826.3 / 2905.3 335.0 / 335.0
Output Total 2924 / 2984 2725 / 2725 335 / 335
Balance -748.1 / -708.6 101.3 / 180.3 0 / 0
SaO2 [CPAP/PSV] 89
SaO2 [ASV] 98
SaO2 [A/C] 95
SaO2 93
Nasal Cannula flow liters per 3
minute
Physical Exam
General: Comfortable (Currently on mechanical ventilation), Other (Large neck) and Other (Right upper extremity PICC)
HEENT: Normocephalic and Anicteric
Cardiovascular: S1-S2, Regular Rhythm (Tachycardic), Murmur (1-2/6 systolic murmur) and Peripheral Edema (1+, lower extremity stockings in place)
Respiratory: Wheeze (n), Crackles (n), Rhonchi (n), Non-Labored Respirations and Other (Tracheostomy)
GI: Soft, Distended (Morbidly obese), Non Tender and Other (Colostomy. 3 CHRISTINE drains with serous drainage, inferior portion of incision open with dressing)
Neurology: Other (Patient does spontaneously move extremities, follows commands during sedation vacation, moves all extremities, opens eyes and turns head)
Skin: Cyanosis (n), Jaundice (n) and Rash (n)
Labs/Micro/Reports
Lab Data
06/29/25 03:37
06/29/25 03:37
Laboratory Results
06/29/25
04:30
pH 7.44
pCO2 61 H
pO2 93
HCO3 41.4 H*
O2 Delivery Level
Microbiology
06/27/25 10:17 Blood/Venous Blood Culture - Preliminary
No Growth in 48 hours- Final report to follow
06/27/25 09:56 Blood/Venous Blood Culture - Preliminary
No Growth in 48 hours- Final report to follow
--- NOTE | 2025-06-29 11:53 | WOUNDNOTE ---
GLUTEAL CLEFT AND R BUTTOCKS
--- NOTE | 2025-06-29 11:54 | WOUNDNOTE ---
GLUTEAL CLEFT/BUTTOCKS
--- NOTE | 2025-06-29 11:54 | WOUNDNOTE ---
L LATERAL LOWER LEG
--- NOTE | 2025-06-29 11:56 | WOUNDNOTE ---
WON RN NOTE: Followed up today with assist of nurse Pimentel and PCT, turned patient to sides. Remains on air mattress with additional bariatric cushion under sacrum, turning schedule maintained. Sacral silicone foam changed, residual blister over
site flaked off revealing linear lines of dark maroon on either side of gluteal cleft. Suspect evolving DTI despite preventative measures, patient remains intubated. R buttock with scar and friable, scant blood during removal of dressing, no open
ulcer. Leg's improved, Tubi embroidery assistant in use, heels intact. Pillows under heels, attempted to apply heel foams to protect, not staying on. L lateral leg dressing removed, no drainage, will leave open to air. Open distal abdominal wound with order to
apply wound vac per Santana Mcduffie along with continued Santyl. Requested from Santana Mcduffie to remove distal 2 fred to better vac area, states she will tomorrow on rounds, then can apply wound vac after. Called [facility] for supplies and will apply
tomorrow once fred removed. Colostomy appliance starting to leak, for large amt of brown stool, blisters on peristomal area healed. Stoma pink and budded, appliance changed. Additional supplies ordered from [facility]. Nurse Pimentel will bring supplies
to when arrive. Will update wound care orders and follow tomorrow.
--- NOTE | 2025-06-29 13:08 | W.PN.HOSP.TC ---
Today's Communication/Plan
-
Assessment / Plan
Assessment / Plan
General: Intubated and sedated
HEENT: NormoCephalic, tracheostomy and and OGT in place
Respiratory: Mechanical breath sounds bilaterally, equal chest rise
Cardiac: S1/S2 and Regular Rhythm; No Rub or Gallop
GI: Left-sided colostomy with output of brown stool, CHRISTINE drain with serous output, to IR drains with serous output, midline incision with lower fred removed and wound packed
Musculoskeletal: No Edema, no deformity
Skin: Warm and dry
: Mason in place (replaced 06/27)
Neuro: Sedated, responds to noxious stimuli
Psych: Unable to assess
Impression:
Mr. Knapp is a 64-year-old male with medical history of HFpEF, A-fib/flutter, IDDM, obesity, chronic pain with subsequent opioid dependence, and chronic constipation with colonic dysmotility who presented with shortness of breath, abdominal
bloating and discomfort, constipation. His last bowel movement was 2 weeks prior to arrival. He is having increasing difficulty breathing due to worsening abdominal distention. He has had multiple similar episodes since September 2024 and has
previously required decompression. He has been treated with enemas and neostigmine previously. Abdominal imaging showed significant colonic distention with air-filled loops of bowel. He also had patchy parenchymal opacities within the mid to
lower lungs. He was mildly hypoxic and has been started on antibiotics. He has remained afebrile with a mild leukocytosis of just over 12,000. He has been admitted for further evaluation and management.
Seen by GI, failed neostigmine, enema, status post nonsuccessful decompressive flexible sigmoidoscopy.
Surgery team consulted.
s/p Exploratory laparotomy, lysis of adhesions, sigmoidectomy, decompression of right colon, abdominal washout, creation of end descending colostomy, umbilical hernia repair on 06/08
admitted to ICU postoperatively, intubated.
Patient had fever,Infectious disease consult, started on zosyn.
Patient was still running fever, added micafungin.
CT chest: New right lower lobe consolidation with air bronchograms, atelectasis versus pneumonia, Possible small bilateral pleural effusions.
CT abdomen/pelvis shows: Small volume fluid in the abdomen, particularly in the left abdomen mildly complex. As this fluid is incompletely included, it cannot be determined whether this totally represents likely free fluid or combination of free
fluid and abnormal focal fluid collection. Additional small abnormal focal fluid collections cannot be excluded on the basis of this markedly limited study
Patient received Lasix.
Difficult extubation, discussion regarding trach
Currently intubated, surgery okay with trickle feeding.
Difficult extubation, ENT consult for trach
06/25
remains intubated.
for trach today.
06/26
S/p trach
Assessment/Plan:
Colonic dysmotility/ileus:
- Abdomen remained significantly distended despite multiple medical enemas and subsequent bowel movements
- Upgraded to IMU 06/07, pushed 4 mg neostigmine around 1:30 PM, no significant peristaltic response
- Ultimately required surgical intervention, brought to the OR 06/08 for ex lap with lysis of adhesions and sigmoidectomy with end descending colostomy, decompression of right colon, abdominal washout and umbilical hernia repair
- ICU postoperatively, intubated
- Colorectal surgery following, increased output from colostomy now with brown stool
- Lower fred removed from surgical incision with mucopurulent output, wound packed, cultures obtained, redressed
- IR placed 2 abdominal drains yesterday 06/20 with serosanguineous output, cultures pending
- Continue TPN, holding tube feeds
- Colorectal surgery, possible wound VAC
- GI consult for PEG placement
Septic shock, requiring pressors:
- This is likely a primary intra-abdominal infection, stool leakage into the abdomen requiring washout, also likely has concomitant pulmonary infection
- Tracheal aspirate from 06/14 growing pansensitive Pseudomonas
- Vasopressors discontinued
- Leukocytosis worsening over the past 48 hours, fever curve slightly improved this morning
- Seroquel discontinued 06/27
- Completed 10 days of empiric micafungin
- Continuing IV vancomycin and meropenem
- Will repeat CT abdomen pelvis with IV contrast due to persistent fevers and worsening leukocytosis
Acute hypoxic respiratory failure (currently intubated in the ICU postoperatively)
- Continue mechanical ventilation, ETT replaced 06/19 by soil science technical officer, trach placed 06/25
- Underwent bronchoscopy with BAL left lower lobe 06/15 by soil science technical officer, cultures growing Pseudomonas, repeat bronchoscopy with BAL 06/20 with aspiration of copious secretions
- Completed course of micafungin, continuing IV vancomycin and meropenem
- Hypertonic nebulized saline 3 times a day with albuterol, aggressive chest PT
- Additional Lasix pushes as needed
- Weaning trials as tolerated
paroxismal A-fib/flutter:
- Currently rate controlled, holding home metoprolol, continue home amiodarone 200 mg at night via OGT
- Holding home Xarelto, have been anticoagulating with IV heparin, colorectal surgery okay with transition to therapeutic Lovenox as needed
IDDM:
- Insulin drip.
HFrEF:
- Acute on chronic chronic
- Holding home metoprolol succinate 100 mg
- Lasix pushes as needed, holding spironolactone, monitor daily weights
- No need for afterload reduction due to hypotension
CODE STATUS: Full code
DVT prophylaxis: Heparin drip
Diet: TPN
Disposition: Continue management in the ICU.
Dc Seroquel
Total time spent on today's encounter was 58 minutes which included time spent in counseling the patient/family regarding diagnosis and treatment plan as listed above, goals of care, and symptom management. Case was discussed with nursing staff,
specialists, and care coordinators/case management. All labs and imaging personally reviewed by me. Remainder the time spent in detailed review of previous records, lab data, imaging, and other medical provider documentation.
Anticipated Discharge: > 48 hours
Subjective/Interval History
-
Date of Service: June 29, 2025
Patient was seen and examined at bedside this morning. Status post tracheostomy placement 06/25/2025. Remains ventilator dependent.
Objective Data
-
Labs:
Laboratory Results
06/29/25 06/29/25
03:37 04:30
WBC 22.5 H
Hgb 10.2 L
Hct 34.7 L
Plt Count 448 H
HCO3 41.4 H*
Sodium 151 H
Potassium 4.3
Chloride 109 H
Carbon Dioxide 40 H
BUN 34 H
Creatinine 0.6 L
Glucose 161 H
Calcium 8.8
Total Bilirubin 0.7
AST 93 H
ALT 44
Alkaline Phosphatase 146 H
Vital Signs:
Vital Signs
Temp Pulse Resp BP Pulse Ox
100.4 F H 93 27 107/61 88
06/29/25 12:00 06/29/25 12:00 06/29/25 12:00 06/29/25 12:00 06/29/25 12:00
I&O
06/28/25 06/29/25 06/30/25
06:59 06:59 06:59
Intake Total 2175.9 / 2275.4 2826.3 / 2905.3 478.5 / 478.5
Output Total 2924 / 2984 2725 / 2725 425 / 425
Balance -748.1 / -708.6 101.3 / 180.3 53.5 / 53.5
Review of Systems
-
Unable to obtain full review of systems at this time due to: Patient Intubation
Physical Exam
-
General: Intubated
--- NOTE | 2025-06-29 13:15 | PTCARENOTE ---
Pt spont desaturating approx 1 hr after decreasing FiO2 to 50%. Lavaged and bagged by RT without recovery. FiO2 back up to 100% with slow recovery to 98%. Chest PT by bed completed Q4H. Ostomy bag and wafer changed by wound care. See note.
[2025-06-29 13:19] LABS: Glucose - Point of Care 131 mg/dl (70-99)
--- NOTE | 2025-06-29 14:36 | CM ---
Trach, colostomy, tube feed stopped, NG clamped, TPN, intubated, reducing PEEP, fevers persist 100.2, 100.4. Discharge POC: TBD.
[2025-06-29 15:07] LABS: Glucose - Point of Care 128 mg/dl (70-99)
--- NOTE | 2025-06-29 15:10 | W.PN.GI.CBS2 ---
Addendum entered and electronically signed by Dale Sanders MD 06/29/25 16:35:
I saw and examined the patient.
The LOSS PREVENTION OPERATIONS MANAGER or PA's note was reviewed and I agree with the note.
Comment: pt on vent, spoke with at bedside
ABD soft, colostomy, incision
REC:
Asked to see pt for PEG. Currently on TPN, high residuals
Also w/u ongoing for fever
Would hold on PEG for now until fever resolved and tolerating TF without high residuals
Will follow
Original Note:
Today's Communication / Plan
-
asked to see for peg
will review with Dr. Sanders may need further medical optimization prior to peg as still with fever, hypotension and tube feed intolerance
cont TPN
can consider change to DHT for feed but did still require NGT for high residual over the weekend
for CT today for continued fever
cont abx per ID
cont medical management per primary team to optimize prior to peg
remains on high dose Lovenox BID
when able will need to consent family as pt still sedated
Assessment / Plan
-
64yo with hx IDDM, HTN, hypercholesterolemia, cardiomyopathy, chronic pain, BPH, bilateral lower extremity wounds, sleep apnea, a flutter, HFpEF, obesity, chronic constipation with recurrent issues with colonic motility, chronic opioid dependence,
depression presents with shortness of breath on 06/05. He has been seen in past with pseudoobstruction with megasigmoid with need for neostigmine. During this admission neostigmine failed. He went 8.4 for flex sig with noted large amount of stool
in sigmoid precluding visualization and unable to pass 20cm with inability to decompress colon. He went 8/ to OR for exp lap with KIMBERLYN sigmoidectomy, decompression right colon abdominal wash out and descending end colostomy. Post -op intubated in
ICU. He has been noted with post-op fever/sepsis with PNA and drainage of peritoneal collection with ID following Asked to see for peg.
-nutritional eval for peg- currently on IV TPN
-06/08 to OR for exp lap with KIMBERLYN sigmoidectomy, decompression right colon abdominal wash out and descending end colostomy 06/19 Colorectal opened midline abd distal incision
-peritonitis 06/20 s/p aspiration/drainage of right abdominal peritoneal collections x 2
-persistent sepsis with fever/leukocytosis
-PNA /VDRF/s/p trach
-intolerance of tube feeds over weekend
-hx pseudoobstruction with prior neostigmine treatment
-afib on Lovenox BID
other med problems:
HFrEF
HTN
DM
HLD
Colonic Inertia / Dysmotility -hx pseudoobstruction with prior neostigmine treatment
Chronic opioid dependence
Advanced bilateral lower extremity venous insufficiency
Morbid obesity
PLAN:
asked to see for peg
will review with Dr. Sanders may need further medical optimization prior to peg as still with fever, hypotension and tube feed intolerance
cont TPN
can consider change to DHT for feed but did still require NGT for high residual over the weekend
for CT today for continued fever
cont abx per ID
cont medical management per primary team to optimize prior to peg
remains on high dose Lovenox BID
when able will need to consent family as pt still sedated
Subjective
Subjective
Date of Service: June 29, 2025
Asked to reassess for peg tube, still with fever, sedation and also noted increased residual over the weekend and hypotension to 90's today but currently off pressors, NGT in place
Objective
Data Reviewed
Laboratory Data:
Laboratory Results
06/29/25 03:37
06/29/25 03:37
Laboratory Results
PT 17.4 Sec (11.4-14.6) H 06/09/25 00:01
INR 1.40 06/09/25 00:01
APTT 106.6 Sec (23.4-35.0) H 06/24/25 04:03
Phosphorus 3.7 mg/dl (2.5-4.5) 06/29/25 03:37
Magnesium 2.2 mg/dl (1.6-2.3) 06/29/25 03:37
Total Bilirubin 0.7 mg/dl (0.2-1.3) 06/29/25 03:37
AST 93 U/L (17-59) H 06/29/25 03:37
ALT 44 U/L (0-50) 06/29/25 03:37
Alkaline Phosphatase 146 U/L (38-126) H 06/29/25 03:37
Lipase 37 U/L (23-300) 06/05/25 20:51
Vital Signs and I&O:
Vital Signs
Temp Pulse Resp BP Pulse Ox
100.2 F 90 28 93/60 98
06/29/25 14:00 06/29/25 14:00 06/29/25 14:00 06/29/25 14:00 06/29/25 14:00
I&O
06/28/25 06/29/25 06/30/25
06:59 06:59 06:59
Intake Total 2175.9 / 2275.4 2826.3 / 2905.3 647.5 / 647.5
Output Total 2924 / 2984 2725 / 2725 750 / 750
Balance -748.1 / -708.6 101.3 / 180.3 -102.5 / -102.5
Physical Exam
Physical Exam
HEENT: Anicteric and Moist mucous membranes
Cardiology: Normal Sinus Rhythm
Pulmonary: Other (decreased )
GI: Soft and Other (large abdomen, mid abdominal incision intact-- multiple drains in abdomen with some purulent fluid )
Neuro: Other (sedated )
--- NOTE | 2025-06-29 15:12 | W.PN.ID1 ---
Date of Service
Date of Service: June 29, 2025
Today's Communication
Continue Vanco/meropenem for now.
Assessment / Plan
# Persistent fever ?trending down
# Leukocytosis trending up
# Recent purulent peritonitis
# Colonic inertia with megacolon; status post ex lap, decompression, colostomy, stool leakage into the abdomen requiring washout 06/08/2025
# s/p Septic shock
# Recent PNA with Pseudomonas
# VDRF s/p trach 06/25/25
# On TPN
- 06/08/25 Exploratory laparotomy, lysis of adhesions, sigmoidectomy, decompression of right colon, abdominal washout, creation of end descending colostomy, umbilical hernia repair
- No OR cx
- Blood cultures neg
- 06/15 s/p bronch with airway clearance; cx Pseudomonas
- 06/19 Colorectal opened midline abd distal incision. cx cx Pseudomonas, mixed anaerobes
- 06/20 aspiration/drainage of right abdominal peritoneal collections x 2. 1 of 2 cx : Pseudomonas
- Fever persist.
Pseudomonas sensitive to Zosyn, meropenem.
Seroquel dc'd 06/27, in case of drug fever.
Repeat blood cx's x 2, Neg to date
- UA neg
-06/28 Sputum pending.
- 06/29 CXR: improving opacities
- Consider dc PICC if fever/wbc persist
- s/p 10d empiric micafungin
- s/p Vancomycin IV x 6d
- s/p Zosyn(8d) -> continue meropenem (d#11).
- Added back empiric Vancomycin IV (d2)
- trend temps/wbc
- Pt remains critically ill; on vent
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
HFrEF
HTN
DM
Afib
HLD
Colonic Inertia / Dysmotility
Chronic opioid dependence
Advanced bilateral lower extremity venous insufficiency
Morbid obesity (BMI~43)
Chief Complaint
-: Fever, Leukocytosis and Other (Purulent peritonitis)
Subjective / Review of Systems
On vent
Vital Signs / Physical Exam
Vital Signs
Vital Signs
Temp Pulse Resp BP Pulse Ox
100.2 F 90 28 93/60 98
06/29/25 14:00 06/29/25 14:00 06/29/25 14:00 06/29/25 14:00 06/29/25 14:00
Selected Entries
06/28/25
21:00
Core Temp max 103.4 F H
Physical Exam
Constitutional: Acutely Ill and Obese
Cardiovascular: Regular Rate and S1/S2
Pulmonary: Clear (anterior lungs), Coarse and Other (Trach vent)
Gastrointestinal: Soft, Non Tender, Non Distended and Other (RLQ drain serosanguinous; R upper CHRISTINE drain x 2 empty. Lower incision wound vac in place)
Genito-Urinary: Mason and Clear Urine
Extremities: Edema and Venous Insufficiency
Wound: Other (Reviewed today's photo: Lower mid abdomen large cavernous wound with granulating tissue)
Lines: PICC (RUE no erythema)
Objective Data
Lab Data
Lab Results
06/29/25 03:37
06/29/25 03:37
PT 17.4 Sec (11.4-14.6) H 06/09/25 00:01
INR 1.40 06/09/25 00:01
APTT 106.6 Sec (23.4-35.0) H 06/24/25 04:03
Estimated Creat Clear > 125 ml/min 06/29/25 03:37
Lactic Acid 0.9 mmol/L (0.7-2.0) 06/09/25 00:01
Total Bilirubin 0.7 mg/dl (0.2-1.3) 06/29/25 03:37
AST 93 U/L (17-59) H 06/29/25 03:37
ALT 44 U/L (0-50) 06/29/25 03:37
Alkaline Phosphatase 146 U/L (38-126) H 06/29/25 03:37
C-Reactive Protein > 270.00 mg/L (0.0-10.00) H 06/11/25 03:22
Most recent labs reviewed.
Micro Results:
06/15/25 10:08 Fungal Culture - Preliminary
Bronch Left Lower Lobe Evelyn albicans
06/20/25 11:01 Fungal Culture - Preliminary
Bronch Right Lower Lobe Culture in progress.
Positive cultures are reported as soon as detected.
Final report to follow in four to five weeks.
06/28/25 15:42 Respiratory Culture - Pending
Sputum Gram Stain - Preliminary
06/27/25 10:17 Blood Culture - Preliminary
Blood/Venous No Growth in 48 hours- Final report to follow
06/27/25 09:56 Blood Culture - Preliminary
Blood/Venous No Growth in 48 hours- Final report to follow
06/20/25 16:38 Body Fluid Culture - Final
Peritoneal Fluid Gram Stain - Final
06/20/25 16:34 Body Fluid Culture - Final
Peritoneal Fluid Pseudomonas aeruginosa
Gram Stain - Final
06/19/25 09:59 Wound Culture - Final
Abdomen Pseudomonas aeruginosa
Gram Stain - Final
06/19/25 09:59 Anaerobic Culture - Final
Abdomen
06/20/25 11:01 Respiratory Culture - Final
Bronch Right Lower Lobe Pseudomonas aeruginosa
Gram Stain - Final
06/20/25 11:01 Acid Fast Bacilli Smear - Preliminary
Bronch Right Lower Lobe Acid Fast Bacilli Culture - Preliminary
06/17/25 13:11 MRSA Screen - Final
Nose No Methicillin Resistant Staphylococcus aureus isolated.
06/13/25 12:07 Blood Culture - Final
Blood/Venous No Growth - Final Report
06/13/25 12:07 Blood Culture - Final
Blood/Venous No Growth - Final Report
06/15/25 10:08 Acid Fast Bacilli Smear - Preliminary
Bronch Left Lower Lobe Acid Fast Bacilli Culture - Preliminary
06/15/25 10:08 Respiratory Culture - Final
Bronch Left Lower Lobe Pseudomonas aeruginosa
Gram Stain - Final
06/14/25 11:22 Respiratory Culture - Final
Tracheal Aspirate Pseudomonas aeruginosa
Gram Stain - Final
06/11/25 09:27 Blood Culture - Final
Blood/Venous No Growth - Final Report
06/11/25 09:59 Blood Culture - Final
Blood/Venous No Growth - Final Report
06/06/25 07:57 MRSA Screen - Final
Nose No Methicillin Resistant Staphylococcus aureus isolated.
Imaging:
06/24/25 CXR: Slightly increased basilar predominant airspace opacities, worse on the left. Findings may be related to pneumonia or worsening atelectasis.
06/18/25 CT c/a/p: Suspected moderate volume mildly complex presumed free fluid in the abdomen, overall increased in volume in comparison to recent prior study, most prominently located in the right subhepatic region, right subdiaphragmatic region
and likely left abdomen/pelvis.
06/16/25 CXR: There is moderate airspace disease in right lower lung field concerning for pneumonia. There is obscuration of the left hemidiaphragm suggesting left lower lobe pneumonia
06/15/25 CXR: No pneumothorax status post bronchoscopy. Progressive homogeneous increased retrocardiac opacity. Suspect mild left perihilar and right infrahilar opacity which could represent atelectasis or pneumonia.
06/13/25 CT a/p: Very limited study. Small volume fluid in the abdomen, particularly in the left abdomen mildly complex. As this fluid is incompletely included, it cannot be determined whether this totally represents likely free fluid or combination
of free fluid and abnormal focal fluid collection. Additional small abnormal focal fluid collections cannot be excluded on the basis of this markedly limited study. Apparent recent prior partial sigmoidectomy with large volume stool seen in the
residual sigmoid colon and rectum.
06/10 CXR: Stable CHF and bibasilar atelectasis and/or pneumonia.
06/08/25 CXR: Diffuse marked colonic dilation. Measurement of caliber of the upper colon is slightly greater then obstruction series of June 07, 2025. Multiple air-fluid levels compatible with stasis. Moderate amount of stool within the inferior
aspect of the right colon as well as within the rectum. No gross evidence for free intraperitoneal air.
06/05/25 CT a/p: Significant gaseous distention of a large portion of the colon. This contributes to limitation of this examination, as the patient cannot be fully included on the [id number] of the CT scanner. If there can be some distal colonic
decompression, repeat scan could be considered, when hopefully the patient could be entirely included on the [id number] of the exam. No gross evidence for free intraperitoneal air. Patchy parenchymal opacity within the visualized lower lung, most
likely atelectasis. Pneumonia is a differential consideration, felt to be less likely based on morphologic appearance.
[2025-06-29 17:27] LABS: Glucose - Point of Care 173 mg/dl (70-99)
--- NOTE | 2025-06-29 17:34 | PTCARENOTE ---
Pt to CT for ABD. Fentanyl bolus given and propofol increased just for procedure to minimize pt distress with positioning. Pt tolerated procedure well. Behavior Specialist to bedside to discuss findings with spouse. CHRISTINE drains empties with scant output. CHRISTINE-A
with purulent drainage, CHRISTINE B &3 with serous drainage.
--- NOTE | 2025-06-29 17:59 | W.PN.UPDATE ---
Update Note
Progress Note Update
He underwent a CT scan this afternoon and it reveals a 24 cm complex fluid collection in the left side of his abdomen and a rectal stump leak.� Is unclear if they communicate with each other but I suspect so.� I reviewed this with the patient's
and discussed the treatment options.� We discussed continued nonoperative management versus percutaneous drainage or an exploratory laparotomy and washout of the abdomen. �Without treatment he is unlikely to survive. �The plan is for an attempt at
percutaneous drainage and if surgery is needed, we will discuss goals of care.
--- NOTE | 2025-06-29 18:37 | PN.IRAD.UPD ---
Update Note - IRAD
- -
bedside to place left sided abdominal drain, 8FR Resolve, 10ml fluid to nurse, drain to bag.
[2025-06-29 19:19] LABS: Glucose - Point of Care 164 mg/dl (70-99)
[2025-06-29 21:16] LABS: Glucose - Point of Care 141 mg/dl (70-99)
--- NOTE | 2025-06-29 21:52 | PTCARENOTE ---
Received pt from previous RN. Pt opens eyes to voice, pt able to squeeze hands, drowsy at times. B/l restraints in place. Cooling blanket in place goal temp 100.4. NSR w/ PACs and PVCs on the monitor. #[address], ASV 100% MV/10 peep/
70%, O2 sat 97%, lungs diminished/rhonchi/coarse. Percussion and lateral rotation Q4 for 15 mins. Left colostomy in place, Right CHRISTINE drains x3 intact, left drain intact. NGT @ 75 cm to low intermittent suction. Mason in place for acute retention.
Prop, Fent, insulin gtt (see worklist). Mouth care provided. Safe environment maintained.
[2025-06-29] MEDS: Parenteral Nutrition, Central 1690 IV (21:53)
[2025-06-29] MEDS: LIPITOR 40 MG TUBE (22:48)
[2025-06-29] MEDS: PACERONE 200 MG TUBE (22:48)
[2025-06-29 23:07] LABS: Glucose - Point of Care 132 mg/dl (70-99)
--- NOTE | 2025-06-29 23:43 | PTCARENOTE ---
Pt with a run of vtach, ICU PIN MACHINE OPERATOR notified, labs provided. Strip in the chart.
[2025-06-30] VITALS (25 sets, daily range): BP systolic 91–144; BP diastolic 53–93; BMI 38.8
[2025-06-30] MEDS: DIPRIVAN 100 IV ×5 (00:35→22:15)
[2025-06-30 00:52] LABS: ALT (SGPT) 42 U/L (0-50); AST (SGOT) 75 U/L (17-59); Albumin 2.2 g/dl (3.5-5.0); Alkaline Phosphatase 107 U/L (38-126); Blood Urea Nitrogen 39 mg/dl (9-20); Calcium 8.4 mg/dl (8.4-10.2); Carbon Dioxide 39 mmol/L (22-30); Chloride 111 mmol/L (98-107); Estimated Creatinine Clearance > 125 ml/min; Glucose 142 mg/dl (70-99); Magnesium 2.3 mg/dl (1.6-2.3); Potassium 3.4 mmol/L (3.5-5.1); Sodium 151 mmol/L (135-145); Total Protein 6.1 g/dl (6.3-8.2); eGFR > 60.00
[2025-06-30] MEDS: KCL 100 IV (01:03)
[2025-06-30 01:13] LABS: Glucose - Point of Care 135 mg/dl (70-99)
[2025-06-30 03:11] LABS: Glucose - Point of Care 143 mg/dl (70-99)
[2025-06-30] MEDS: MERREM 500 MG IV ×3 (05:02→17:00)
[2025-06-30] MEDS: STERILE WATER FOR INJECTION 10 ML IV ×3 (05:02→17:00)
[2025-06-30] MEDS: VANCOCIN 535 MG IV ×2 (05:03→17:00)
[2025-06-30 05:12] LABS: Glucose - Point of Care 159 mg/dl (70-99)
--- NOTE | 2025-06-30 05:12 | PTCARENOTE ---
Systems reviewed, no new changes in assessment. AM labs provided. Gtts maintained. Safe environment maintained.
[2025-06-30 05:15] LABS: Hematocrit 27.2 % (39.0-52.0); Hemoglobin 8.0 g/dL (13.0-18.0); Mean Corp Hgb Conc. 29.4 g/dL (33.0-37.0); Mean Corpuscular Volume 85.8 fL (80.0-94.0); Platelet Count 307 10^3/uL (130-400); Red Cell Dist. Width 15.6 % (11.5-14.5)
[2025-06-30 05:35] LABS: Blood Urea Nitrogen 40 mg/dl (9-20); Calcium 8.5 mg/dl (8.4-10.2); Carbon Dioxide 37 mmol/L (22-30); Chloride 112 mmol/L (98-107); Estimated Creatinine Clearance > 125 ml/min; Glucose 162 mg/dl (70-99); Potassium 4.0 mmol/L (3.5-5.1); Sodium 151 mmol/L (135-145); eGFR > 60.00
[2025-06-30 06:57] LABS: Glucose - Point of Care 152 mg/dl (70-99)
[2025-06-30] MEDS: SUBLIMAZE 100 IV ×2 (07:13→22:17)
[2025-06-30] MEDS: DESENEX/MITRAZOL/ZEASORB 1 APPLIC TOPICAL ×2 (07:38→21:19)
[2025-06-30] MEDS: HYDROPHOR 1 APPLIC TOPICAL (07:38)
[2025-06-30] MEDS: FLOMAX 0.4 MG TUBE (07:39)
[2025-06-30] MEDS: SANTYL OINTMENT 1 APPLIC TOPICAL (07:39)
[2025-06-30] MEDS: NSS (PRESERVATIVE FREE) 10 ML IV (07:39)
[2025-06-30] MEDS: SUBUTEX 4 MG SL (07:39)
[2025-06-30] MEDS: MIRALAX 17 GRAMS TUBE ×2 (07:39→21:19)
[2025-06-30] MEDS: RELISTOR 12 MG SC (07:40)
[2025-06-30] MEDS: PROTONIX IV 40 MG IV (07:40)
--- NOTE | 2025-06-30 08:33 | PHA.VAN.FU ---
Addendum entered and electronically signed by Hannah Love [facility] [place] 06/30/25 08:42:
BUN increasing, patient received IV contrast
Will obtain levels tonight but patient may not fully be accumulated
Peak 06/30 22:00
Trough 07/01 05:30
Original Note:
Vancomycin Assessment / Plan
- Assessment
Renal Function: Stable
WBC's are: Trending Down
In the past 24 hrs, patient has been: Afebrile
Concomitant Antimicrobials: meropenem
- Dosing Plan
Continue: Vanc 1750mg Q12H
- Monitoring Plan
No level(s) ordered at this time: may be slow to accumulate - will hold off on levels for now
- Follow Up
Pharmacy will continue to follow.
Vancomycin Follow UP
- -
Patient Age: 64
Patient Sex: Male
Vancomycin Day #: 3
Indication: Gi / Intra-Abdominal
Requesting Provider: Dr. Quispe
Pertinent Antimicrobial Allergies:
NKDA
Height / Weight:
Height 6 ft 3 in
Actual Weight 140.7 kg
Pertinent Past Medical History: BMI ~ 40
- Vital Signs / Lab Results
Temp Pulse Resp BP Pulse Ox
100.1 F 94 21 91/75 89
06/30/25 08:00 06/30/25 06:00 06/30/25 06:00 06/30/25 06:00 06/30/25 08:05
Lab Results - Hematology
06/28/25 06/29/25 06/30/25
04:07 03:37 04:59
WBC 17.1 H 22.5 H 15.8 H
Lab Results - Chemistry
06/28/25 06/29/25 06/29/25
04:07 03:37 23:52
BUN 30 H 34 H 39 H
Creatinine 0.5 L 0.6 L 0.6 L
Estimated Creat Clear > 125 > 125 > 125
Albumin 2.7 L 2.7 L 2.2 L
06/30/25
04:59
BUN 40 H
Creatinine 0.6 L
Estimated Creat Clear > 125
Albumin
Microbiology Results
06/15/25 10:08 Fungal Culture - Preliminary
Bronch Left Lower Lobe Evelyn albicans
06/20/25 11:01 Fungal Culture - Preliminary
Bronch Right Lower Lobe Culture in progress.
Positive cultures are reported as soon as detected.
Final report to follow in four to five weeks.
06/28/25 15:42 Gram Stain - Preliminary
Sputum
06/27/25 10:17 Blood Culture - Preliminary
Blood/Venous No Growth in 48 hours- Final report to follow
06/27/25 09:56 Blood Culture - Preliminary
Blood/Venous No Growth in 48 hours- Final report to follow
Therapeutic Drug Monitoring
Vancomycin Peak Cancelled 06/22/25 22:00
Vancomycin Trough 11.1 ug/ml (5-20) 06/21/25 03:32
Random Vancomycin 14.0 ug/ml 06/19/25 03:48
[2025-06-30 09:47] LABS: Glucose - Point of Care 149 mg/dl (70-99)
[2025-06-30] MEDS: LOVENOX 120 MG SC ×2 (09:48→21:19)
--- NOTE | 2025-06-30 09:48 | PN.DE.MGMTRT ---
Insulin Management
- -
06/30/2025: Diabetes Management Follow up
Patient admitted 06/05 with c/o difficulty breathing. Diabetes management consult 06/15. PMH 5 weeks of constipation with abdominal distention, HTN, A-Fib, CHF Prior to admission was taking Lantus 24 units daily with NovoLog 20 units AC and Farxiga 5
mg daily. A1C on admission 7.1%, cr today 0.5, eGFR > 60.
Patient remains intubated and sedated. Information obtained from chart and patient nurse and pharmacist. Patient s/p OR 06/08 for lysis of adhesions, sigmoidectomy, with end descending colostomy and s/p tracheostomy 06/25.
Remains on critical care glycemic protocol which was started 06/12, Glucose range 127 to 173. Patient has required 4.5 to 5 units of insulin per hour.
Receiving TPN Tube feeds on hold. After discussion with director translation will transition from critical care glycemic protocol to subcutaneous insulin. 30 units lantus now, insulin infusion off 2 hours after lantus administered. Q 6 hour novolog 10
units with high corrective insulin.
If glucose trends up nurse to notify me, will adjust insulin. If glucose > 300 will resume critical care glycemic protocol.
Discussed with nurse. Will cont to follow.
Diabetes History
- -
Type of Diabetes: 2 requiring insulin
Pre-Admission Diabetes Regimen
06/29/25 06/30/25
23:52 04:59
Creatinine 0.6 L 0.6 L
Lab Results
Hemoglobin A1c 7.8 % (4.0-5.6) H 06/22/25 03:20
Insulin Pump Settings
IP Diabetes Regimen
06/29/25 06/29/25 06/29/25
10:46 13:08 14:46
Glucose
POC Glucose 166 H 131 H 128 H
06/29/25 06/29/25 06/29/25
17:06 19:07 21:04
Glucose
POC Glucose 173 H 164 H 141 H
06/29/25 06/29/25 06/30/25
22:55 23:52 01:01
Glucose 142 H
POC Glucose 132 H 135 H
06/30/25 06/30/25 06/30/25
02:59 04:59 05:00
Glucose 162 H
POC Glucose 143 H 159 H
06/30/25 06/30/25
06:45 09:36
Glucose
POC Glucose 152 H 149 H
Patient Education
--- NOTE | 2025-06-30 10:04 | W.PN.ID1 ---
Date of Service
Date of Service: June 30, 2025
Today's Communication
Follow cx's. Continue Vanco, meropenem.
Assessment / Plan
# New findings of rectal perforation with large left intra-abd abscess
# Fever trending down
# Leukocytosis trending down
- 06/29 s/p IR perc drain placement
- abscess cx's pending
- Possible eventual laparotomy pending pt's condition, per colorectal
- Continue meropenem (d12)
- Continue Vancomycin IV (d3)
- Trend temps/wbc
# Colonic inertia with megacolon; status post ex lap, decompression, colostomy, stool leakage into the abdomen requiring washout 06/08/2025
# Recent purulent peritonitis
# Recent PNA with Pseudomonas
# VDRF s/p trach 06/25/25
# On TPN
- 06/08/25 Exploratory laparotomy, lysis of adhesions, sigmoidectomy, decompression of right colon, abdominal washout, creation of end descending colostomy, umbilical hernia repair
- No OR cx
- Blood cultures neg
- 06/15 s/p bronch with airway clearance; cx Pseudomonas
- 06/19 Colorectal opened midline abd distal incision. cx cx Pseudomonas, mixed anaerobes
- 06/20 aspiration/drainage of right abdominal peritoneal collections x 2. 1 of 2 cx : Pseudomonas
-06/28 Sputum pending.
- 06/29 CXR: improving opacities
- s/p 10d empiric micafungin
- s/p Vancomycin IV x 6d previously
- s/p Zosyn(8d) -> continue meropenem (d#12).
- Continue Vancomycin IV (d2)
Pt remains critically ill; on vent
Overall prognosis guarded.
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
HFrEF
HTN
DM
Afib
HLD
Colonic Inertia / Dysmotility
Chronic opioid dependence
Advanced bilateral lower extremity venous insufficiency
Morbid obesity (BMI~43)
Chief Complaint
-: Fever, Leukocytosis and Other (Purulent peritonitis)
Vital Signs / Physical Exam
Vital Signs
Vital Signs
Temp Pulse Resp BP Pulse Ox
100.1 F 94 21 91/75 89
06/30/25 08:00 06/30/25 06:00 06/30/25 06:00 06/30/25 06:00 06/30/25 08:05
Physical Exam
Constitutional: Acutely Ill
Cardiovascular: Regular Rate and S1/S2
Pulmonary: Clear (anterior lungs), Coarse and Other (Trach vent)
Gastrointestinal: Soft, Non Tender and Other (L perc drain bag just emptied. RLQ drain serosanguinous; R upper CHRISTINE drain x 2 empty. Lower incision large wound dressing dry)
Genito-Urinary: Mason and Clear Urine
Extremities: Edema and Venous Insufficiency
Lines: PICC (RUE no erythema)
Objective Data
Lab Data
Lab Results
06/30/25 04:59
06/30/25 04:59
PT 17.4 Sec (11.4-14.6) H 06/09/25 00:01
INR 1.40 06/09/25 00:01
APTT 106.6 Sec (23.4-35.0) H 06/24/25 04:03
Estimated Creat Clear > 125 ml/min 06/30/25 04:59
Lactic Acid 0.9 mmol/L (0.7-2.0) 06/09/25 00:01
Total Bilirubin 0.4 mg/dl (0.2-1.3) 06/29/25 23:52
AST 75 U/L (17-59) H 06/29/25 23:52
ALT 42 U/L (0-50) 06/29/25 23:52
Alkaline Phosphatase 107 U/L (38-126) 06/29/25 23:52
C-Reactive Protein > 270.00 mg/L (0.0-10.00) H 06/11/25 03:22
Most recent labs reviewed.
Micro Results:
06/27/25 09:56 Blood Culture - Preliminary
Blood/Venous No Growth in 72 hours- Final report to follow
06/29/25 18:25 Anaerobic Culture - Pending
Abdomen
06/29/25 18:25 Wound Culture - Pending
Abdomen Gram Stain - Pending
06/15/25 10:08 Fungal Culture - Preliminary
Bronch Left Lower Lobe Evelyn albicans
06/20/25 11:01 Fungal Culture - Preliminary
Bronch Right Lower Lobe Culture in progress.
Positive cultures are reported as soon as detected.
Final report to follow in four to five weeks.
06/28/25 15:42 Respiratory Culture - Pending
Sputum Gram Stain - Preliminary
06/27/25 10:17 Blood Culture - Preliminary
Blood/Venous No Growth in 48 hours- Final report to follow
06/20/25 16:38 Body Fluid Culture - Final
Peritoneal Fluid Gram Stain - Final
06/20/25 16:34 Body Fluid Culture - Final
Peritoneal Fluid Pseudomonas aeruginosa
Gram Stain - Final
06/19/25 09:59 Wound Culture - Final
Abdomen Pseudomonas aeruginosa
Gram Stain - Final
06/19/25 09:59 Anaerobic Culture - Final
Abdomen
06/20/25 11:01 Respiratory Culture - Final
Bronch Right Lower Lobe Pseudomonas aeruginosa
Gram Stain - Final
06/20/25 11:01 Acid Fast Bacilli Smear - Preliminary
Bronch Right Lower Lobe Acid Fast Bacilli Culture - Preliminary
06/17/25 13:11 MRSA Screen - Final
Nose No Methicillin Resistant Staphylococcus aureus isolated.
06/13/25 12:07 Blood Culture - Final
Blood/Venous No Growth - Final Report
06/13/25 12:07 Blood Culture - Final
Blood/Venous No Growth - Final Report
06/15/25 10:08 Acid Fast Bacilli Smear - Preliminary
Bronch Left Lower Lobe Acid Fast Bacilli Culture - Preliminary
06/15/25 10:08 Respiratory Culture - Final
Bronch Left Lower Lobe Pseudomonas aeruginosa
Gram Stain - Final
06/14/25 11:22 Respiratory Culture - Final
Tracheal Aspirate Pseudomonas aeruginosa
Gram Stain - Final
06/11/25 09:27 Blood Culture - Final
Blood/Venous No Growth - Final Report
06/11/25 09:59 Blood Culture - Final
Blood/Venous No Growth - Final Report
06/06/25 07:57 MRSA Screen - Final
Nose No Methicillin Resistant Staphylococcus aureus isolated.
Imaging:
06/24/25 CXR: Slightly increased basilar predominant airspace opacities, worse on the left. Findings may be related to pneumonia or worsening atelectasis.
06/18/25 CT c/a/p: Suspected moderate volume mildly complex presumed free fluid in the abdomen, overall increased in volume in comparison to recent prior study, most prominently located in the right subhepatic region, right subdiaphragmatic region
and likely left abdomen/pelvis.
06/16/25 CXR: There is moderate airspace disease in right lower lung field concerning for pneumonia. There is obscuration of the left hemidiaphragm suggesting left lower lobe pneumonia
06/15/25 CXR: No pneumothorax status post bronchoscopy. Progressive homogeneous increased retrocardiac opacity. Suspect mild left perihilar and right infrahilar opacity which could represent atelectasis or pneumonia.
06/13/25 CT a/p: Very limited study. Small volume fluid in the abdomen, particularly in the left abdomen mildly complex. As this fluid is incompletely included, it cannot be determined whether this totally represents likely free fluid or combination
of free fluid and abnormal focal fluid collection. Additional small abnormal focal fluid collections cannot be excluded on the basis of this markedly limited study. Apparent recent prior partial sigmoidectomy with large volume stool seen in the
residual sigmoid colon and rectum.
06/10 CXR: Stable CHF and bibasilar atelectasis and/or pneumonia.
06/08/25 CXR: Diffuse marked colonic dilation. Measurement of caliber of the upper colon is slightly greater then obstruction series of June 07, 2025. Multiple air-fluid levels compatible with stasis. Moderate amount of stool within the inferior
aspect of the right colon as well as within the rectum. No gross evidence for free intraperitoneal air.
06/05/25 CT a/p: Significant gaseous distention of a large portion of the colon. This contributes to limitation of this examination, as the patient cannot be fully included on the [id number] of the CT scanner. If there can be some distal colonic
decompression, repeat scan could be considered, when hopefully the patient could be entirely included on the [id number] of the exam. No gross evidence for free intraperitoneal air. Patchy parenchymal opacity within the visualized lower lung, most
likely atelectasis. Pneumonia is a differential consideration, felt to be less likely based on morphologic appearance.
Care Review
Plan reviewed with: Physician (Drs. Bocanegra, Xiomara, Ed)
[2025-06-30] MEDS: LANTUS 0.3 UNITS SC (10:22)
--- NOTE | 2025-06-30 10:51 | W.PN.CRS1 ---
Today's Communication / Plan
-
daily tpn
eventual peg
continue iv abx
await cultures
maintain drains
holding off on wound vac for now
Assessment/Plan
-
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
obstipation associated with megacolon. WBC 11.[address] showing gaseous distention of the colon, diameter of the sigmoid up to 18 cm in diameter. He received a dose of neostigmine, which failed. He underwent attempt at decompressive sigmoidoscopy,
but encountered too much stool. Due to refractory nature of his issue, we proceeded with surgery.
POD 22 exlap, sigmoidectomy, end-colostomy; iatrogenic spillage of stool - controlled and abdomen washed out, no colonic ischemia or perforation
POD 5 Tracheostomy placement
06/15 and 06/20 bronch for mucous plugging
06/19 midline incision opened up, +pseudomonas/mixed aneerobes
06/20 IR drains x2 to RUQ +pseudomonas in 1 of 2
06/29- IR successful ultrasound-guided drainage catheter placement into a left-sided intraperitoneal fluid collection.
Tmax 103.1
WBC: 15.8 (22.5), Hgb 8.0 (10.2)
Insulin gtt for hyperglycemia with TPN in setting of h/o DM
Tube feeds now on hold due to high residuals
Plan:
- Continue daily TPN
- ID following for management of ABX
- Maintain all drains, await cultures
- Discussed case with pulmonology/ICU team
- Continue morales given retention with removal
- Eventual PEG with GI when medically stable - appreciate GI who is standing by
- Continue local wound care with packing bid and santyl. Holding off on vac for now. Will apply Santyl another week and re-eval ?vac next week.
- Medical management as per ICU team
- Monitor hgb
- I left a detailed voicemail with his , Bernie
Subjective Data
Procedure
06/08/25- Exploratory laparotomy, lysis of adhesions, sigmoidectomy, decompression of right colon, abdominal washout, creation of end descending colostomy, umbilical hernia repair
Subjective Data
Date of Service: June 30, 2025
Trach'ed and sedated.
Objective Data
-
Vital Signs
Temp Pulse Resp BP Pulse Ox
100.1 F 94 21 91/75 89
06/30/25 08:00 06/30/25 06:00 06/30/25 06:00 06/30/25 06:00 06/30/25 08:05
Intake & Output
06/29/25 06/30/25 07/01/25
06:59 06:59 06:59
Intake Total 2826.3 / 2905.3 2872.5 / 2902.0 118.0 / 118.0
Output Total 2725 / 2725 4476 / 4476 275 / 275
Balance 101.3 / 180.3 -1603.5 / -1574.0 -157.0 / -157.0
Intake:
IV fluids (Total) 522.3 / 545.3 658.5 / 688.0 118.0 / 118.0
Fentanyl gtt 180.0 / 187.5 180.0 / 187.5 30.0 / 30.0
Insulin 129.5 / 136.5 122.5 / 127.5
Propofol 212.8 / 221.3 356.0 / 373.0
IV piggybacks 740 / 740 634 / 634
TPN/PPN 1104 / 1160 1470 / 1470
Tube feeding 160 / 160
Feeding tube flush amount 300 / 300
Amount instilled into Drain ( 0 / 0
Total)
Right Middle Abdomen Milton-
Vo B Placed in IR
Right Upper Abdomen Milton-
Vo A Placed in IR
Amount instilled into GI Tube (
Total)
Ritchie Sump
Output:
Liquid stool amount
Colostomy
Drain Output (Total) 40 1631 / 1631 275 / 275
Left Middle Abdomen 1605 / 1605 275 / 275
Right Lower Abdomen Milton-
Vo
Right Middle Abdomen Milton-
Vo B Placed in IR
Right Upper Abdomen Milton- 0 0
Vo A Placed in IR
Gastrointestinal tube output ( 700 / 700 650 / 650
Total)
Ritchie Sump 700 / 700 650 / 650
Urine, Morales 1914 / 1914 2169 / 2169
Urine, Voided 70 / 70
Lab Results
06/30/25 04:59
06/30/25 04:59
Physical Exam
-
General: No Acute Distress and Other (sedated)
Abdomen: Soft, Non Distended, Non Tender and Other (lower midline wound with fibrinous material, one suture exposed, no gross blood)
Skin: Warm and Dry
--- NOTE | 2025-06-30 11:37 | WOUNDNOTE ---
SUSHILA RN NOTE: Wound vac on hold per RICHARD Mcduffie, resume Santyl dressing. Updated orders and notified nurse Margarito. Wound vac machine and supplies to remain at nursing station for possible vac toward end of week.
[2025-06-30 12:02] LABS: Glucose - Point of Care 135 mg/dl (70-99)
[2025-06-30] MEDS: NOVOLOG FLEXPEN SC (12:12)
--- NOTE | 2025-06-30 12:40 | CM ---
Addendum entered by Mendy Cedillo 06/30/25 12:51:
Xiomara pillowcase folder Sendy [phone]
Original Note:
Chart reviewed and patient is currently requiring ventilator assistance, patient also with trach, placed on 06/25, jorge drains, medically complex, will need to follow with progress.
Plan; To follow with patient progress.
[2025-06-30] MEDS: NOVOLOG FLEXPEN-HIGH RESISTANCE 1 UNITS SC (13:25)
--- NOTE | 2025-06-30 13:37 | W.PN.HOSP.TC ---
Today's Communication/Plan
-
Assessment / Plan
Assessment / Plan
General: Intubated and sedated
HEENT: NormoCephalic, tracheostomy and and OGT in place
Respiratory: Mechanical breath sounds bilaterally, equal chest rise
Cardiac: S1/S2 and Regular Rhythm; No Rub or Gallop
GI: Left-sided colostomy with output of brown stool, CHRISTINE drain with serous output, 2 IR drains with serous output, midline incision with lower fred removed and wound packed
Musculoskeletal: No Edema, no deformity
Skin: Warm and dry
: Mason in place (replaced 06/27)
Neuro: Sedated, responds to noxious stimuli
Psych: Unable to assess
Impression:
Mr. Knapp is a 64-year-old male with medical history of HFpEF, A-fib/flutter, IDDM, obesity, chronic pain with subsequent opioid dependence, and chronic constipation with colonic dysmotility who presented with shortness of breath, abdominal
bloating and discomfort, constipation. His last bowel movement was 2 weeks prior to arrival. He is having increasing difficulty breathing due to worsening abdominal distention. He has had multiple similar episodes since September 2024 and has
previously required decompression. He has been treated with enemas and neostigmine previously. Abdominal imaging showed significant colonic distention with air-filled loops of bowel. He also had patchy parenchymal opacities within the mid to
lower lungs. He was mildly hypoxic and has been started on antibiotics. He has remained afebrile with a mild leukocytosis of just over 12,000. He has been admitted for further evaluation and management.
Seen by GI, failed neostigmine, enema, status post nonsuccessful decompressive flexible sigmoidoscopy.
Surgery team consulted.
s/p Exploratory laparotomy, lysis of adhesions, sigmoidectomy, decompression of right colon, abdominal washout, creation of end descending colostomy, umbilical hernia repair on 06/08
admitted to ICU postoperatively, intubated.
Patient had fever,Infectious disease consult, started on zosyn.
Patient was still running fever, added micafungin.
CT chest: New right lower lobe consolidation with air bronchograms, atelectasis versus pneumonia, Possible small bilateral pleural effusions.
CT abdomen/pelvis shows: Small volume fluid in the abdomen, particularly in the left abdomen mildly complex. As this fluid is incompletely included, it cannot be determined whether this totally represents likely free fluid or combination of free
fluid and abnormal focal fluid collection. Additional small abnormal focal fluid collections cannot be excluded on the basis of this markedly limited study
S/p trach
Assessment/Plan:
Colonic dysmotility/ileus:
- Abdomen remained significantly distended despite multiple medical enemas and subsequent bowel movements
- Upgraded to IMU 06/07, pushed 4 mg neostigmine around 1:30 PM, no significant peristaltic response
- Ultimately required surgical intervention, brought to the OR 06/08 for ex lap with lysis of adhesions and sigmoidectomy with end descending colostomy, decompression of right colon, abdominal washout and umbilical hernia repair
- ICU postoperatively, intubated
- Colorectal surgery following, colostomy with brown stool output
- Lower fred removed from surgical incision with mucopurulent output, wound packed, cultures obtained, redressed
- IR placed 2 abdominal drains 06/20 with serosanguineous output, a third drain was placed today new collection yesterday 06/29, cultures pending
- Continue TPN, holding tube feeds
- GI consult for PEG placement when otherwise medically stable
Septic shock, requiring pressors:
- This is likely a primary intra-abdominal infection, stool leakage into the abdomen requiring washout, also likely has concomitant pulmonary infection
- Tracheal aspirate from 06/14 growing pansensitive Pseudomonas
- Vasopressors discontinued
- Leukocytosis and fever curve slightly improved over the past 24 hours
- Seroquel discontinued 06/27
- Completed 10 days of empiric micafungin
- Continuing IV vancomycin and meropenem
- Repeat CT abdomen pelvis 06/29 shows a new large complex fluid collection for which an IR drain was placed
Acute hypoxic respiratory failure (currently intubated in the ICU postoperatively)
- Continue mechanical ventilation, ETT replaced 06/19 by bush and vine [employer] fruit crops, trach placed 06/25
- Underwent bronchoscopy with BAL left lower lobe 06/15 by bush and vine [employer] fruit crops, cultures growing Pseudomonas, repeat bronchoscopy with BAL 06/20 with aspiration of copious secretions
- Completed course of micafungin, continuing IV vancomycin and meropenem
- Hypertonic nebulized saline 3 times a day with albuterol, aggressive chest PT
- Additional Lasix pushes as needed
- Weaning trials as tolerated
paroxismal A-fib/flutter:
- Currently rate controlled, holding home metoprolol, continue home amiodarone 200 mg at night via OGT
- Holding home Xarelto, have transitioned to therapeutic Lovenox
IDDM:
- Insulin drip.
HFrEF:
- Acute on chronic chronic
- Holding home metoprolol succinate 100 mg
- Lasix pushes as needed, holding spironolactone, monitor daily weights
- No need for afterload reduction due to hypotension
CODE STATUS: Full code
DVT prophylaxis: Lovenox
Diet: TPN
Disposition: Continue management in the ICU.
Dc Seroquel
Total time spent on today's encounter was 55 minutes which included time spent in counseling the patient/family regarding diagnosis and treatment plan as listed above, goals of care, and symptom management. Case was discussed with nursing staff,
specialists, and care coordinators/case management. All labs and imaging personally reviewed by me. Remainder the time spent in detailed review of previous records, lab data, imaging, and other medical provider documentation.
Anticipated Discharge: > 48 hours
Subjective/Interval History
-
Date of Service: June 30, 2025
Patient was seen and examined at bedside this morning. Remains critically ill. IR drain placed for new intra-abdominal abscess.
Objective Data
-
Labs:
Laboratory Results
06/30/25
04:59
WBC 15.8 H
Hgb 8.0 L D
Hct 27.2 L
Plt Count 307 D
Sodium 151 H
Potassium 4.0
Chloride 112 H
Carbon Dioxide 37 H
BUN 40 H
Creatinine 0.6 L
Glucose 162 H
Calcium 8.5
Vital Signs:
Vital Signs
Temp Pulse Resp BP Pulse Ox
100.1 F 103 30 125/53 90
06/30/25 12:01 06/30/25 12:00 06/30/25 12:00 06/30/25 12:00 06/30/25 12:00
I&O
06/29/25 06/30/25 07/01/25
06:59 06:59 06:59
Intake Total 2826.3 / 2905.3 2872.5 / 2902.0 271.5 / 271.5
Output Total 2725 / 2725 4476 / 4476 600 / 600
Balance 101.3 / 180.3 -1603.5 / -1574.0 -328.5 / -328.5
Review of Systems
-
Unable to obtain full review of systems at this time due to: Patient Intubation
Physical Exam
-
General: Intubated
--- NOTE | 2025-06-30 14:42 | W.PN.INTV ---
Today's Communication / Plan
Recommendations
- Increase PEEP up to 12
- Trial of subcu insulin, discontinue insulin infusion
- Change FiO2 to 75%
- Follow-up ABG and chest x-ray in a.m.
Assessment
-
Assessment: 64-year-old male with a past medical history of cardiomyopathy, hypertension, DM type II, history of chronic opioid use due to chronic arthritis now on buprenorphine, history of ERASMO, venous insufficiency and chronic back pain who
presented with shortness of breath, abdominal distention. Found to have severe colonic distention. Initially treated with neostigmine, attempted sigmoidoscopy without attempt. Underwent exploratory laparotomy 06/08/2025-developed shock requiring
vasopressors and remained on mechanical ventilation. We were consulted on 06/09/2025.
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
OxyContin/oxycodone,systolic cardiomyopathy. 7.40 , on ASV 100%, FiO2 70%, PEEP of 12.
06/30/2025 Overview: Patient currently on mechanical ventilation, ASV 100%. Persistent fevers noted, FiO2 down to 70%, PEEP 10. Current infusions propofol, fentanyl, insulin, TPN. Tube feeding stopped and NG to suction. Minimal stool output
noted in ostomy bag. No significant endotracheal secretions.
Assessment and plan
#1. Acute hypoxemic respiratory failure post laparotomy complicated by VAP of LLL, intubated 06/08, s/p trach 06/25 (Shiley 8.0 XLT)
- Initially due to abdominal distention requiring intubation, mechanical ventilation, subsequently LLL pneumonia
- Left lower lobe dense consolidation, copious ET tube secretions noted, improved after Bronchoscopic lavage, again worse 06/19
- s/p bronchoscopy and BAL 06/16 with extensive suctioning of thick mucoid secretions in LLL. BAL growing Pseudomonas/Yeast
- Repeat bronchoscopy 06/20 with extensive clearing of thick secretions from both lower lobes. BAL negative
- CXR as of 06/26 with significant improvement in aeration, CXR 06/28 with decreased aeration left lung. Suspect patient has rotated
- presently on 70%, PEEP of 10, in view of desaturation with minimal movement, increased PEEP to 12
- Status post tracheostomy 06/25
#1a. Difficulty ventilator weaning.
- S/p Trach 06/25. Shiley, 8.0 XLT
- Body habitus, excessive secretions, severe pneumonia as well as intra-abdominal processes are contributing to failure to liberate from mechanical ventilation
#2. Septic shock suspected-source likely intraperitoneal and LLL pneumonia
- Norepinephrine weaned off
- Status post antifungal per infectious disease service, micafungin. Zosyn switched to meropenem per ID service, also on vancomycin, now on meropenem alone
- BAL culture showing Pseudomonas
- 06/18, CT chest abdomen pelvis pursued, fluid noted in the abdomen.
- Purulent discharge from inferior margin of surgical site, bedside drainage on 06/19, sent for cultures. Growing Pseudomonas
- 06/20, IR guided peritoneal drains x 2 placed for intra-abdominal collections noted on imaging, Pseudomonas noted on peritoneal fluid culture
- Mason catheter has been discontinued 06/25. Needed to be replaced 06/27
#3. Pseudoobstruction with megacolon, failed conservative management, s/p ex lap
- S/p ex lap, sigmoidectomy and end colostomy, iatrogenic spillage of stool, peritonitis, umbilical hernia repair, 06/08/2025
- Patient was on IV meropenem, vancomycin and micafungin, now on meropenem alone
- Small-volume stool output noted in the ostomy bag. r
- TPN infusing
- Tube feeding stopped due to high residuals.
#4a. Abdominal fluid collections/ abscesses with concern for rectal perforation (06/29)
- CT 06/29 concerning for large intraabdominal fluid collection as well as concern for rectal perforation with free air
- 06/29, s/p IR guided intraperitoneal drain placement, serous drainage noted
- Colorectal surgery on case
- Guarded prognosis.
#4. Acute on chronic heart failure with reduced ejection fraction, LVEF 35%, Stage I diastolic dysfunction
- Patient has been diuresing well with intermittent Lasix.
- Fluid balance even over the last 24 hours
#5. Paroxysmal atrial flutter.
- Patient on outpatient Xarelto
- Heparin infusion, was held due to bloody secretions 06/25, enoxaparin p.m. started 06/26
- Empirically go to every 12 hour enoxaparin, starting 06/28. Follow for bleeding. Will continue 120 mg every 12 hours. This equates to 0.8 mg/kg
- History of cardioversion in January 2025
- Has been on amiodarone
- LFTs normal as of 06/22
#6. Pulmonary hypertension, estimated pulmonary artery systolic pressure 50-55
- Primarily group II PH related to underlying congestive heart failure
- Continue to optimize intravascular volume, keep saturations above 90%, no indication for vasodilator therapy
- Additional dose of Lasix as needed
#7. DM type II with Hyperglycemia
- Continue glycemic protocol as indicated
#8. Prolonged QTc
- Improved after replacing potassium and magnesium
- Was Tolerating Seroquel well, added 50 mg daytime dose in addition to nightly 100, EKG being followed
- Held Seroquel given fevers, last dose 06/26 in p.m.
Other medical diagnoses:
#Morbid obesity
#Venous deficiency
#History of ERASMO
#Chronic pain management due to arthritis currently on buprenorphine in an effort to wean off of OxyContin/oxycodone
-
DVT prophylaxis: -heparin infusion
GI prophylaxis, pantoprazole
-
Prognosis is guarded
-
Critical care statement: A total of 45 minutes of critical care time was provided for this patient today. This includes management of unstable vital signs, evaluation of the patient at bedside, reviewing the patient's pertinent medical records
including ventilator settings, arterial blood gases, radiographs, microbiology, laboratory evaluations and discussion with primary team, critical care nursing, and respiratory therapy.

Data reviewed:
Chest x-ray 06/08/2025: Reviewed, ET tube in place. Left lower lobe airspace disease. Cardiomegaly
-
CT abdomen pelvis 06/05/2025:
The patient is significantly distended, and much of the abdominal and upper pelvic soft tissues extending anterior and to the left of the [id number], which limits evaluation, as it becomes difficult to confidently follow the loops of bowel.
There is distention of the rectum with air and stool, measuring 9.3 cm in diameter. There is marked distention of the sigmoid colon which extends into the right and central upper abdomen, with the sigmoid colon measuring up to 18 cm in diameter. The
sigmoid colon contains a moderate to large amount of stool, mainly inferiorly. There appears to be moderate distention of the rest of the visualized colon.
Small bowel loops are present, and do not appear to be significantly distended, similar appearance to prior examination.
Of note, the cecum cannot be confidently identified on the present examination
No gross evidence of free intraperitoneal air.
There is patchy parenchymal opacity within the visualized lower lungs, most likely atelectasis. A component of pneumonia is also possible, although felt to be less likely. There is no significant pleural effusion and no significant pericardial
effusion.
Coronary artery calcifications are present. Please correlate with symptoms of and risk factors for coronary artery disease, with further workup as clinically appropriate.
Of note, the stomach is not distended.
Subjective Dataa
Subjective Data
Date of Service:
Date of Service: June 30, 2025
Chief Complaint: Speech Correction Consultant Follow Up (Septic shock/respiratory failure require mechanical ventilation)
Subjective:
Patient currently intubated, mechanically ventilated and sedated
Review of Systems
General: Unobtainable - Sedation
Objective Data
Data Reviewed
Vital Signs / I&O / Oxygen:
Vital Signs
Temp Pulse Resp BP Pulse Ox
100.1 F 103 37 129/65 92
06/30/25 12:01 06/30/25 14:00 06/30/25 14:00 06/30/25 14:00 06/30/25 14:00
Intake and Output
06/29/25 06/30/25 07/01/25
06:59 06:59 06:59
Intake Total 2826.3 / 2905.3 2872.5 / 2902.0 271.5 / 271.5
Output Total 2725 / 2725 4476 / 4476 600 / 600
Balance 101.3 / 180.3 -1603.5 / -1574.0 -328.5 / -328.5
SaO2 [CPAP/PSV] 89
SaO2 [ASV] 90
SaO2 [A/C] 95
SaO2 92
Nasal Cannula flow liters per 3
minute
Physical Exam
General: Comfortable (Currently on mechanical ventilation), Other (Large neck) and Other (Right upper extremity PICC)
HEENT: Normocephalic and Anicteric
Cardiovascular: S1-S2, Regular Rhythm (Tachycardic), Murmur (1-2/6 systolic murmur) and Peripheral Edema (1+, lower extremity stockings in place)
Respiratory: Wheeze (n), Crackles (n), Rhonchi (n), Non-Labored Respirations and Other (Tracheostomy)
GI: Soft, Distended (Morbidly obese), Non Tender and Other (Colostomy. 3 CHRISTINE drains with serous drainage, inferior portion of incision open with dressing)
Neurology: Other (Patient does spontaneously move extremities, follows commands during sedation vacation, moves all extremities, opens eyes and turns head)
Skin: Cyanosis (n), Jaundice (n) and Rash (n)
Labs/Micro/Reports
Lab Data
06/30/25 04:59
06/30/25 04:59
Microbiology
06/29/25 18:25 Abdomen Gram Stain - Preliminary
06/28/25 15:42 Sputum Respiratory Culture - Preliminary
Pseudomonas aeruginosa
06/28/25 15:42 Sputum Gram Stain - Preliminary
06/27/25 10:17 Blood/Venous Blood Culture - Preliminary
No Growth in 72 hours- Final report to follow
06/27/25 09:56 Blood/Venous Blood Culture - Preliminary
No Growth in 72 hours- Final report to follow
06/15/25 10:08 Bronch Left Lower Lobe Fungal Culture - Preliminary
Evelyn albicans
06/20/25 11:01 Bronch Right Lower Lobe Fungal Culture - Preliminary
Culture in progress.
Positive cultures are reported as soon as detected.
Final report to follow in four to five weeks.
--- NOTE | 2025-06-30 15:45 | PTCARENOTE ---
Fever present. RR to 40. Tylenol given. All drain dressings changed. ABD dressing changed by colorectal surgery this AM
[2025-06-30] MEDS: TYLENOL ORAL SOLUTION 650 MG TUBE ×2 (15:47→21:41)
[2025-06-30] MEDS: NOVOLOG FLEXPEN-HIGH RESISTANCE 4 UNITS SC (17:19)
[2025-06-30] MEDS: NOVOLOG FLEXPEN 10 UNITS SC (17:19)
[2025-06-30 17:27] LABS: Glucose - Point of Care 224 mg/dl (70-99)
--- NOTE | 2025-06-30 17:38 | PTCARENOTE ---
Pt diaphoretic and tachypneic. Fever noted and tylenol given via NGT. >1.5H later, Temp continues to elevate and RR now in 40s. Dr Solano notified and pt changed to AC settings.
[2025-06-30] MEDS: Parenteral Nutrition, Central 1580 IV (21:17)
[2025-06-30] MEDS: PACERONE 200 MG TUBE (21:19)
[2025-06-30] MEDS: LIPITOR 40 MG TUBE (21:19)
--- NOTE | 2025-06-30 21:50 | PTCARENOTE ---
Received pt from previous RN. Pt opens eyes to voice, drowsy at times. NSR/sinus tach w/ PACs and PVCs on the monitor. #[address] Vent settings AC 25/500/80%/12, lungs diminished/rhonchi/coarse. Percussion and lateral rotation
provided. Incont of urine. Left colostomy in place, drains x4 intact. Pt diaphoretic, temp 100.5, PRN Tylenol given (see MAR). Prop and fent gtts (see MAR). TPN @ 66 ml/hr. Mouth care provided. Safe environment maintained.
[2025-07-01] VITALS (24 sets, daily range): BP systolic 89–147; BP diastolic 42–95; BMI 37.9
[2025-07-01] MEDS: NOVOLOG FLEXPEN-HIGH RESISTANCE 7 UNITS SC (00:01)
[2025-07-01] MEDS: MERREM 500 MG IV ×2 (00:02→05:03)
[2025-07-01] MEDS: STERILE WATER FOR INJECTION 10 ML IV ×4 (00:02→18:34)
[2025-07-01 00:12] LABS: Glucose - Point of Care 274 mg/dl (70-99)
--- NOTE | 2025-07-01 00:24 | PTCARENOTE ---
Systems reviewed, no new changes in assessment. Gtts maintained. Safe environment maintained.
[2025-07-01] MEDS: DIPRIVAN 100 IV ×2 (03:18→08:16)
[2025-07-01 04:22] LABS: B.E. 8.9 mmol/L; HCO3 36.6 mmol/L (21-28); O2 Saturation % 97.7 % (94-98); PO2 80 mmHg (83-108)
[2025-07-01 04:24] LABS: O2 Therapy VENT
[2025-07-01 04:25] LABS: PCO2 71 mmHg (35-48)
[2025-07-01] MEDS: VANCOCIN 535 MG IV (05:03)
[2025-07-01] MEDS: NOVOLOG FLEXPEN-HIGH RESISTANCE 4 UNITS SC (05:11)
[2025-07-01] MEDS: NOVOLOG FLEXPEN 14 UNITS SC ×2 (05:11)
[2025-07-01 05:18] LABS: Hematocrit 27.5 % (39.0-52.0); Hemoglobin 7.5 g/dL (13.0-18.0); Mean Corp Hgb Conc. 27.3 g/dL (33.0-37.0); Mean Corpuscular Volume 93.9 fL (80.0-94.0); Platelet Count 329 10^3/uL (130-400); Red Cell Dist. Width 16.6 % (11.5-14.5)
--- NOTE | 2025-07-01 05:21 | PTCARENOTE ---
Systems reviewed, no new changes in assessment. Vent settings changed to AC 26/500/80%/12, O2 sat 94%. AM labs provided. Safe environment maintained.
[2025-07-01 05:22] LABS: Glucose - Point of Care 208 mg/dl (70-99)
[2025-07-01 06:55] LABS: Blood Urea Nitrogen 48 mg/dl (9-20); Calcium 8.9 mg/dl (8.4-10.2); Carbon Dioxide 38 mmol/L (22-30); Chloride 115 mmol/L (98-107); Estimated Creatinine Clearance 124 ml/min; Glucose 195 mg/dl (70-99); Potassium 4.1 mmol/L (3.5-5.1); Sodium 155 mmol/L (135-145); Triglycerides 123 mg/dl (10-149); eGFR > 60.00
[2025-07-01] MEDS: SUBUTEX 4 MG SL (07:35)
[2025-07-01] MEDS: TYLENOL ORAL SOLUTION 650 MG TUBE ×2 (07:35→18:38)
[2025-07-01] MEDS: RELISTOR 12 MG SC (07:35)
[2025-07-01] MEDS: MIRALAX 17 GRAMS TUBE ×2 (07:36→21:21)
[2025-07-01] MEDS: HYDROPHOR 1 APPLIC TOPICAL (07:36)
[2025-07-01] MEDS: NSS (PRESERVATIVE FREE) 10 ML IV (07:36)
[2025-07-01] MEDS: PROTONIX IV 40 MG IV (07:36)
[2025-07-01] MEDS: FLOMAX 0.4 MG TUBE (07:36)
[2025-07-01] MEDS: SANTYL OINTMENT 1 APPLIC TOPICAL (07:36)
[2025-07-01] MEDS: DESENEX/MITRAZOL/ZEASORB 1 APPLIC TOPICAL ×2 (07:37→21:21)
--- NOTE | 2025-07-01 08:17 | W.PN.CRS1 ---
Today's Communication / Plan
-
tpn
wound vac
eventual peg
Assessment/Plan
-
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
obstipation associated with megacolon. WBC 11.[address] showing gaseous distention of the colon, diameter of the sigmoid up to 18 cm in diameter. He received a dose of neostigmine, which failed. He underwent attempt at decompressive sigmoidoscopy,
but encountered too much stool. Due to refractory nature of his issue, we proceeded with surgery.
POD 23 exlap, sigmoidectomy, end-colostomy; iatrogenic spillage of stool - controlled and abdomen washed out, no colonic ischemia or perforation
POD 6 Tracheostomy placement
06/15 and 06/20 bronch for mucous plugging
06/19 midline incision opened up, +pseudomonas/mixed aneerobes
06/20 IR drains x2 to RUQ +pseudomonas in 1 of 2
06/29- IR successful ultrasound-guided drainage catheter placement into a left-sided intraperitoneal fluid collection.
Tmax 102.5
WBC: 21.3 (15.8), Hgb 7.5 (8.0)
Insulin gtt for hyperglycemia with TPN in setting of h/o DM
Tube feeds now on hold due to high residuals
Plan:
- Continue daily TPN
- ID following for management of ABX
- Maintain all drains, await cultures
- Discussed case with pulmonology/ICU team
- Continue morales given retention with removal
- Eventual PEG with GI when medically stable - appreciate GI who is standing by
- Continue local wound care with packing bid and santyl. Wound vac application today. White with black at 65.
- Medical management as per ICU team
Subjective Data
Procedure
06/08/25- Exploratory laparotomy, lysis of adhesions, sigmoidectomy, decompression of right colon, abdominal washout, creation of end descending colostomy, umbilical hernia repair
Subjective Data
Date of Service: July 01, 2025
Sedated with trach in place.
Objective Data
-
Vital Signs
Temp Pulse Resp BP Pulse Ox
102.5 F H 102 27 103/71 95
07/01/25 07:22 07/01/25 08:00 07/01/25 08:00 07/01/25 08:00 07/01/25 08:00
Intake & Output
06/30/25 07/01/25 07/02/25
06:59 06:59 06:59
Intake Total 2872.5 / 2972.0 2834.5 / 2922.5 386 / 386
Output Total 4476 / 4476 1365 / 1365
Balance -1603.5 / -1504.0 1469.5 / 1557.5 386 / 386
Intake:
Oral fluids 0 / 0
IV fluids (Total) 658.5 / 688.0 610.5 / 632.5 44 / 44
Fentanyl gtt 180.0 / 187.5 172.5 / 177.5
Insulin 122.5 / 127.5 30 / 30
Propofol 356.0 / 373.0 408 / 425 34 / 34
IV piggybacks 634 / 634 534 / 534
TPN/PPN 1470 / 1540 1640 / 1706 132 / 132
Tube feeding 210 / 210
Amount instilled into Drain ( 20 20
Total)
Right Middle Abdomen Milton-
Vo B Placed in IR
Right Upper Abdomen [place]-
Vo A Placed in IR
Amount instilled into GI Tube ( 30 / 30
Total)
[place] Sump 30 / 30
Output:
Liquid stool amount
Colostomy
Drain Output (Total) 1631 / 1631 290 / 290
Left Middle Abdomen 1605 / 1605 275 / 275
Right Lower Abdomen Milton-
Vo
Right Middle Abdomen Milton-
Vo B Placed in IR
Right Upper Abdomen Milton-
Vo A Placed in IR
Gastrointestinal tube output ( 650 / 650 750 / 750
Total)
[place] Sump 650 / 650 750 / 750
Urine, Morales 2170 / 2170
Straight cath output 325 / 325
Other:
How many times incontinent 1
MODERATE amount urine
How many times incontinent 1
SATURATED amount urine
Lab Results
07/01/25 04:54
07/01/25 05:51
Physical Exam
-
General: Other (sedated)
Abdomen: Soft, Non Distended and Non Tender
Skin: Warm and Dry
--- NOTE | 2025-07-01 08:18 | PHA.VAN.FU ---
Vancomycin Assessment / Plan
- Assessment
Renal Function: SCR Increasing
WBC's are: Trending Up
In the past 24 hrs, patient has been: Febrile (most elevated temps via axillary route)
Concomitant Antimicrobials: meropenem
- Assessment - Therapeutic Drug Monitoring
Extrapolated Cmax (mcg/mL): 32.4
Peak level was drawn: Appropriately (drawn ~2.2H after end of previous infusion)
Extrapolated Cmin (mcg/mL): 16.8
Trough Drawn: Appropriately
Levels were drawn: At steady state (after 4th maintenance dose, patient may still have accumulation with weight > 100kg)
Calculated AUC (mcg*h/mL): 573
Calculated ke: 0.0657
Calculated half life (H): 10.5
Calculated Vd (L): 93 (~0.67 L/kg)
Calculated Vanc CL (ml/min): 102
- Dosing Plan
Adjust Regimen to: change to dose by level - received 1750mg this AM
Dosing by Level: Re-dose today (with additional 1250mg x1 at 1800)
- Monitoring Plan
Random Level: 07/02 0600
- Follow Up
Pharmacy will continue to follow.
Vancomycin Follow UP
- -
Patient Age: 64
Patient Sex: Male
Vancomycin Day #: 4
Indication: Gi / Intra-Abdominal
Requesting Provider: Dr. Quispe
Pertinent Antimicrobial Allergies:
NKDA
Height / Weight:
Height 6 ft 3 in
Actual Weight 137.7 kg
Pertinent Past Medical History: BMI ~ 40
- Vital Signs / Lab Results
Temp Pulse Resp BP Pulse Ox
102.5 F H 102 27 103/71 95
07/01/25 07:22 07/01/25 08:00 07/01/25 08:00 07/01/25 08:00 07/01/25 08:00
Lab Results - Hematology
06/29/25 06/30/25 07/01/25
03:37 04:59 04:54
WBC 22.5 H 15.8 H 21.3 H
Lab Results - Chemistry
06/29/25 06/29/25 06/30/25
03:37 23:52 04:59
BUN 34 H 39 H 40 H
Creatinine 0.6 L 0.6 L 0.6 L
Estimated Creat Clear > 125 > 125 > 125
Albumin 2.7 L 2.2 L
07/01/25 07/01/25
04:54 05:51
BUN Cancelled 48 H
Creatinine Cancelled 0.9
Estimated Creat Clear Cancelled 124
Albumin
Microbiology Results
06/28/25 15:42 Respiratory Culture - Preliminary
Sputum Pseudomonas aeruginosa
Gram Stain - Preliminary
06/29/25 18:25 Gram Stain - Preliminary
Abdomen
06/27/25 10:17 Blood Culture - Preliminary
Blood/Venous No Growth in 72 hours- Final report to follow
06/27/25 09:56 Blood Culture - Preliminary
Blood/Venous No Growth in 72 hours- Final report to follow
06/15/25 10:08 Fungal Culture - Preliminary
Bronch Left Lower Lobe Evelyn albicans
06/20/25 11:01 Fungal Culture - Preliminary
Bronch Right Lower Lobe Culture in progress.
Positive cultures are reported as soon as detected.
Final report to follow in four to five weeks.
Therapeutic Drug Monitoring
Vancomycin Peak 28.0 ug/ml (18-26) H 06/30/25 21:13
Vancomycin Trough 16.9 ug/ml (5-20) 07/01/25 04:54
Random Vancomycin 14.0 ug/ml 06/19/25 03:48
--- NOTE | 2025-07-01 09:05 | PTCARENOTE ---
Rec'd care of patient at 0700. Patient sedated. RASS -2. Pupils equal and reactive; +3mm. NSR/ST with pvcs on tele. Trace anasarca. Palpable pulses. #8 Shiley XLT. Vent settings: A/C 26/500/12/80%. Pulse ox 93-95%. Lung sounds coarse/diminished
throughout. Shallow, labored breathing. Small amount of secretions suctioned from trach. Hypo BS. Colostomy with small amount of brown, liquid stool. Abdominal dressing intact. Plan for wound vac placement by WOC. Output from CHRISTINE drains x2 and left
percutaneous drain serous. CHRISTINE drain A with small amount of purulent drainage. Incontinent of urine. CHG bath provided and repositioned for comfort. TPN/Fent/Prop infusing through RTL PICC. See worklist for full assessment and care.
--- NOTE | 2025-07-01 09:20 | W.PN.ID1 ---
Date of Service
Date of Service: July 01, 2025
Today's Communication
Antibiotics changed. See below,
Poor prognosis.
Assessment / Plan
# New findings (06/29) of rectal perforation with large left intra-abd abscess
# Fever trending up
# Leukocytosis trending up
# MDR- carbapenem resistant Pseudomonas
- 06/29 s/p IR perc drain placement
- abscess cx's pending
- Possible eventual laparotomy pending pt's condition, per colorectal
- Pseudomonas (from sputum) now carbapenem-resistant
- DC meropenem (d13)
- Start cipro 400mg IV q8h, cefepime 2g IV q8, and metronidazole 500mg IV q8h.
- Continue Vancomycin IV (d4)
- Trend temps/wbc/vitals
- Continue ICU support.
- Contact isolation
- Overall grim prognosis
# Colonic inertia with megacolon; status post ex lap, decompression, colostomy, stool leakage into the abdomen requiring washout 06/08/2025
# Recent purulent peritonitis
# Recent PNA with Pseudomonas
# VDRF s/p trach 06/25/25
# On TPN
- 06/08/25 Exploratory laparotomy, lysis of adhesions, sigmoidectomy, decompression of right colon, abdominal washout, creation of end descending colostomy, umbilical hernia repair
- No OR cx
- Blood cultures neg
- 06/15 s/p bronch with airway clearance; cx Pseudomonas
- 06/19 Colorectal opened midline abd distal incision. cx cx Pseudomonas, mixed anaerobes
- 06/20 aspiration/drainage of right abdominal peritoneal collections x 2. 1 of 2 cx : Pseudomonas
-06/28 Sputum CR -Pseudomonas
- 06/29 CXR: improving opacities
- s/p 10d empiric micafungin
- s/p Vancomycin IV x 6d previously
- s/p Zosyn(8d) -> meropenem (12d) -> cipro/cefepime
Pt remains critically ill; on vent
Overall prognosis guarded.
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
HFrEF
HTN
DM
Afib
HLD
Colonic Inertia / Dysmotility
Chronic opioid dependence
Advanced bilateral lower extremity venous insufficiency
Morbid obesity (BMI~43)
Chief Complaint
-: Fever, Leukocytosis and Other (Purulent peritonitis)
Subjective / Review of Systems
On vent
Vital Signs / Physical Exam
Vital Signs
Vital Signs
Temp Pulse Resp BP Pulse Ox
102.5 F H 102 27 103/71 95
07/01/25 07:22 07/01/25 08:00 07/01/25 08:00 07/01/25 08:00 07/01/25 08:00
Physical Exam
Constitutional: Acutely Ill
Cardiovascular: Regular Rate and S1/S2
Pulmonary: Clear (anterior lungs), Coarse and Other (Trach vent)
Gastrointestinal: Soft, Non Tender, No Rebound and Other (L perc drain bag serous light yellow fluid. ; 1 of 3 R abd CHRISTINE drain cloudy cream colored drainage. Lower incision large wound dressing dry)
Genito-Urinary: Mason and Clear Urine
Extremities: Edema and Venous Insufficiency
Lines: PICC (RUE no erythema)
Objective Data
Lab Data
Lab Results
07/01/25 04:54
07/01/25 05:51
PT 17.4 Sec (11.4-14.6) H 06/09/25 00:01
INR 1.40 06/09/25 00:01
APTT 106.6 Sec (23.4-35.0) H 06/24/25 04:03
Estimated Creat Clear 124 ml/min 07/01/25 05:51
Lactic Acid 0.9 mmol/L (0.7-2.0) 06/09/25 00:01
Total Bilirubin 0.4 mg/dl (0.2-1.3) 06/29/25 23:52
AST 75 U/L (17-59) H 06/29/25 23:52
ALT 42 U/L (0-50) 06/29/25 23:52
Alkaline Phosphatase 107 U/L (38-126) 06/29/25 23:52
C-Reactive Protein > 270.00 mg/L (0.0-10.00) H 06/11/25 03:22
Most recent labs reviewed.
Micro Results:
06/28/25 15:42 Respiratory Culture - Preliminary
Sputum Pseudomonas aeruginosa
Gram Stain - Preliminary
06/29/25 18:25 Wound Culture - Pending
Abdomen Gram Stain - Preliminary
06/27/25 10:17 Blood Culture - Preliminary
Blood/Venous No Growth in 72 hours- Final report to follow
06/27/25 09:56 Blood Culture - Preliminary
Blood/Venous No Growth in 72 hours- Final report to follow
06/29/25 18:25 Anaerobic Culture - Pending
Abdomen
06/15/25 10:08 Fungal Culture - Preliminary
Bronch Left Lower Lobe Evelyn albicans
06/20/25 11:01 Fungal Culture - Preliminary
Bronch Right Lower Lobe Culture in progress.
Positive cultures are reported as soon as detected.
Final report to follow in four to five weeks.
06/20/25 16:38 Body Fluid Culture - Final
Peritoneal Fluid Gram Stain - Final
06/20/25 16:34 Body Fluid Culture - Final
Peritoneal Fluid Pseudomonas aeruginosa
Gram Stain - Final
06/19/25 09:59 Wound Culture - Final
Abdomen Pseudomonas aeruginosa
Gram Stain - Final
06/19/25 09:59 Anaerobic Culture - Final
Abdomen
06/20/25 11:01 Respiratory Culture - Final
Bronch Right Lower Lobe Pseudomonas aeruginosa
Gram Stain - Final
06/20/25 11:01 Acid Fast Bacilli Smear - Preliminary
Bronch Right Lower Lobe Acid Fast Bacilli Culture - Preliminary
06/17/25 13:11 MRSA Screen - Final
Nose No Methicillin Resistant Staphylococcus aureus isolated.
06/13/25 12:07 Blood Culture - Final
Blood/Venous No Growth - Final Report
06/13/25 12:07 Blood Culture - Final
Blood/Venous No Growth - Final Report
06/15/25 10:08 Acid Fast Bacilli Smear - Preliminary
Bronch Left Lower Lobe Acid Fast Bacilli Culture - Preliminary
06/15/25 10:08 Respiratory Culture - Final
Bronch Left Lower Lobe Pseudomonas aeruginosa
Gram Stain - Final
06/14/25 11:22 Respiratory Culture - Final
Tracheal Aspirate Pseudomonas aeruginosa
Gram Stain - Final
06/11/25 09:27 Blood Culture - Final
Blood/Venous No Growth - Final Report
06/11/25 09:59 Blood Culture - Final
Blood/Venous No Growth - Final Report
06/06/25 07:57 MRSA Screen - Final
Nose No Methicillin Resistant Staphylococcus aureus isolated.
Imaging:
06/24/25 CXR: Slightly increased basilar predominant airspace opacities, worse on the left. Findings may be related to pneumonia or worsening atelectasis.
06/18/25 CT c/a/p: Suspected moderate volume mildly complex presumed free fluid in the abdomen, overall increased in volume in comparison to recent prior study, most prominently located in the right subhepatic region, right subdiaphragmatic region
and likely left abdomen/pelvis.
06/16/25 CXR: There is moderate airspace disease in right lower lung field concerning for pneumonia. There is obscuration of the left hemidiaphragm suggesting left lower lobe pneumonia
06/15/25 CXR: No pneumothorax status post bronchoscopy. Progressive homogeneous increased retrocardiac opacity. Suspect mild left perihilar and right infrahilar opacity which could represent atelectasis or pneumonia.
06/13/25 CT a/p: Very limited study. Small volume fluid in the abdomen, particularly in the left abdomen mildly complex. As this fluid is incompletely included, it cannot be determined whether this totally represents likely free fluid or combination
of free fluid and abnormal focal fluid collection. Additional small abnormal focal fluid collections cannot be excluded on the basis of this markedly limited study. Apparent recent prior partial sigmoidectomy with large volume stool seen in the
residual sigmoid colon and rectum.
06/10 CXR: Stable CHF and bibasilar atelectasis and/or pneumonia.
06/08/25 CXR: Diffuse marked colonic dilation. Measurement of caliber of the upper colon is slightly greater then obstruction series of June 07, 2025. Multiple air-fluid levels compatible with stasis. Moderate amount of stool within the inferior
aspect of the right colon as well as within the rectum. No gross evidence for free intraperitoneal air.
06/05/25 CT a/p: Significant gaseous distention of a large portion of the colon. This contributes to limitation of this examination, as the patient cannot be fully included on the [id number] of the CT scanner. If there can be some distal colonic
decompression, repeat scan could be considered, when hopefully the patient could be entirely included on the [id number] of the exam. No gross evidence for free intraperitoneal air. Patchy parenchymal opacity within the visualized lower lung, most
likely atelectasis. Pneumonia is a differential consideration, felt to be less likely based on morphologic appearance.
Care Review
Plan reviewed with: Physician ()
[2025-07-01] MEDS: LOVENOX 120 MG SC ×2 (10:04→21:21)
[2025-07-01] MEDS: MAXIPIME 2000 MG IV ×2 (10:05→18:34)
[2025-07-01] MEDS: FLAGYL 500 MG 100 IV ×2 (10:05→18:34)
[2025-07-01] MEDS: LANTUS 0.34 UNITS SC (10:07)
[2025-07-01 10:19] LABS: Glucose - Point of Care 188 mg/dl (70-99)
[2025-07-01 10:31] LABS: B.E. 8.4 mmol/L; HCO3 37.6 mmol/L (21-28); O2 Saturation % 97.5 % (94-98); PO2 85 mmHg (83-108)
[2025-07-01 10:34] LABS: PCO2 73 mmHg (35-48)
[2025-07-01] MEDS: D5W 1000 IV (10:39)
--- NOTE | 2025-07-01 10:45 | WOUNDNOTE ---
GLUTEAL CLEFT/RIGHT BUTTOCK
--- NOTE | 2025-07-01 10:49 | WOUNDNOTE ---
RIGHT DORSAL FOOT
--- NOTE | 2025-07-01 10:50 | WOUNDNOTE ---
WON RN NOTE: Patient being turned by nursing, gluteal cleft now does not appear to be a DTI, is a stage 2 PI, sacral silicone foam changed. Heels are intact, air cushions on pillows under calves. Called [employer] for Tru[employer]ue lite offloading heel boots to
help prevent foot drop and offload heels, will confirm with hospitalist. Legs and feet much improved, wounds healed. Abdominal dressing changed, applied wound vac dressing with assist of nurse Jaime. White foam at base followed by black foam at
75mmhg. Confirmed 75mmhg setting and black foam over white with RICHARD cerrato. Able to easily remove distal 2 fred to better vac area before applying dressing. Next vac and ostomy change due Sunday. Additional white foam at bedside.
--- NOTE | 2025-07-01 11:48 | PTCARENOTE ---
Systems reviewed. Weaning sedation as tolerated. Wound vac in place. IVFs initiated for hypernatremia. No other changes. VSS.
[2025-07-01 12:18] LABS: Glucose - Point of Care 254 mg/dl (70-99)
[2025-07-01] MEDS: NOVOLOG FLEXPEN 18 UNITS SC ×2 (12:22→18:06)
[2025-07-01] MEDS: NOVOLOG FLEXPEN-MODERATE RESISTANCE 5 UNITS SC ×2 (12:23→23:53)
--- NOTE | 2025-07-01 12:25 | PN.DE.MGMTRT ---
Insulin Management
- -
07/01/2025: Diabetes Management Follow up
Patient admitted 06/05 with c/o difficulty breathing. Diabetes management consult 06/15. PMH 5 weeks of constipation with abdominal distention, HTN, A-Fib, CHF Prior to admission was taking Lantus 24 units daily with NovoLog 20 units AC and Farxiga 5
mg daily. A1C on admission 7.1%, cr today 0.5, eGFR > 60.
Patient remains intubated and sedated. Information obtained from chart and patient nurse and pharmacist. Patient s/p OR 06/08 for lysis of adhesions, sigmoidectomy, with end descending colostomy and s/p tracheostomy 06/25. Continues with TPN.
Transitioned from critical care glycemic protocol 06/30, to lantus 30 units in AM and Q 6 hour novolog 14 units. Glucose range 149 to 274.
Will increase AM lantus to 34 units and Q 6 hour novolog to 18 units and reduce high corrective insulin to moderate.
If glucose trends up nurse to notify me, will adjust insulin.
Discussed with nurse.
Will cont to follow.
Diabetes History
- -
Type of Diabetes: 2 requiring insulin
Pre-Admission Diabetes Regimen
07/01/25 07/01/25
04:54 05:51
Creatinine Cancelled 0.9
Lab Results
Hemoglobin A1c 7.8 % (4.0-5.6) H 06/22/25 03:20
Insulin Pump Settings
IP Diabetes Regimen
06/30/25 06/30/25 07/01/25
17:16 23:59 04:54
Glucose Cancelled
POC Glucose 224 H 274 H
07/01/25 07/01/25 07/01/25
05:07 05:51 10:07
Glucose 195 H
POC Glucose 208 H 188 H
07/01/25
12:06
Glucose
POC Glucose 254 H
Patient Education
[2025-07-01] MEDS: CIPRO 400 MG 200 IV ×2 (13:26→22:42)
--- NOTE | 2025-07-01 14:01 | W.PN.HOSP.TC ---
Today's Communication/Plan
-
Assessment / Plan
Assessment / Plan
General: Intubated and sedated
HEENT: NormoCephalic, tracheostomy and and OGT in place
Respiratory: Mechanical breath sounds bilaterally, equal chest rise
Cardiac: S1/S2 and Regular Rhythm; No Rub or Gallop
GI: Left-sided colostomy with output of brown stool, CHRISTINE drain with serous output, 2 IR drains with serous output, midline incision with wound VAC in place
Musculoskeletal: No Edema, no deformity
Skin: Warm and dry
: Mason in place (replaced 06/27)
Neuro: Sedated, responds to noxious stimuli
Psych: Unable to assess
Impression:
Mr. Knapp is a 64-year-old male with medical history of HFpEF, A-fib/flutter, IDDM, obesity, chronic pain with subsequent opioid dependence, and chronic constipation with colonic dysmotility who presented with shortness of breath, abdominal
bloating and discomfort, constipation. His last bowel movement was 2 weeks prior to arrival. He is having increasing difficulty breathing due to worsening abdominal distention. He has had multiple similar episodes since September 2024 and has
previously required decompression. He has been treated with enemas and neostigmine previously. Abdominal imaging showed significant colonic distention with air-filled loops of bowel. He also had patchy parenchymal opacities within the mid to
lower lungs. He was mildly hypoxic and has been started on antibiotics. He has remained afebrile with a mild leukocytosis of just over 12,000. He has been admitted for further evaluation and management.
Seen by GI, failed neostigmine, enema, status post nonsuccessful decompressive flexible sigmoidoscopy.
Surgery team consulted.
s/p Exploratory laparotomy, lysis of adhesions, sigmoidectomy, decompression of right colon, abdominal washout, creation of end descending colostomy, umbilical hernia repair on 06/08
admitted to ICU postoperatively, intubated.
Patient had fever,Infectious disease consult, started on zosyn.
Patient was still running fever, added micafungin.
CT chest: New right lower lobe consolidation with air bronchograms, atelectasis versus pneumonia, Possible small bilateral pleural effusions.
CT abdomen/pelvis shows: Small volume fluid in the abdomen, particularly in the left abdomen mildly complex. As this fluid is incompletely included, it cannot be determined whether this totally represents likely free fluid or combination of free
fluid and abnormal focal fluid collection. Additional small abnormal focal fluid collections cannot be excluded on the basis of this markedly limited study
S/p trach
Assessment/Plan:
Colonic dysmotility/ileus:
- Abdomen remained significantly distended despite multiple medical enemas and subsequent bowel movements
- Upgraded to IMU 06/07, pushed 4 mg neostigmine around 1:30 PM, no significant peristaltic response
- Ultimately required surgical intervention, brought to the OR 06/08 for ex lap with lysis of adhesions and sigmoidectomy with end descending colostomy, decompression of right colon, abdominal washout and umbilical hernia repair
- ICU postoperatively, intubated
- Colorectal surgery following, colostomy with brown stool output
- Lower fred removed from surgical incision with mucopurulent output, wound VAC now in place
- IR placed 2 abdominal drains 06/20 with serous output, a third drain was placed today new collection 06/29, cultures pending
- Rectum was distended with stool and was manually disimpacted this morning 07/01
- Continue TPN, holding tube feeds
- GI consult for PEG placement when otherwise medically stable
Septic shock, requiring pressors:
- Intra-abdominal and pulmonary infection
- Respiratory culture from 06/28 growing Carbapenem resistant Pseudomonas
- Antibiotics transitioned to ciprofloxacin for 100 mg IV every 8 hours, cefepime 2 g IV every 8 hours, and metronidazole 500 mg IV every 8 hours
- Continuing vancomycin IV
- Discontinued meropenem
- No longer requiring vasopressors
- Seroquel discontinued 06/27
- Completed 10 days of empiric micafungin
- Repeat CT abdomen pelvis 06/29 showed a new large complex fluid collection for which an IR drain was placed
Acute hypoxic respiratory failure (currently intubated in the ICU postoperatively)
- Continue mechanical ventilation, ETT replaced 06/19 by in class special education teacher, trach placed 06/25
- Underwent bronchoscopy with BAL left lower lobe 06/15 by in class special education teacher, cultures growing Pseudomonas, repeat bronchoscopy with BAL 06/20 with aspiration of copious secretions
- Completed course of micafungin, continuing IV antibiotics as outlined above
- Hypertonic nebulized saline 3 times a day with albuterol, aggressive chest PT
- Additional Lasix pushes as needed
- Weaning trials as tolerated
paroxismal A-fib/flutter:
- Currently rate controlled, holding home metoprolol, continue home amiodarone 200 mg at night via OGT
- Holding home Xarelto, have transitioned to therapeutic Lovenox
IDDM:
- Insulin drip.
HFrEF:
- Acute on chronic chronic
- Holding home metoprolol succinate 100 mg
- Lasix pushes as needed, holding spironolactone, monitor daily weights
- No need for afterload reduction due to hypotension
CODE STATUS: Full code
DVT prophylaxis: Lovenox
Diet: TPN
Disposition: Continue management in the ICU.
Dc Seroquel
Total time spent on today's encounter was 53 minutes which included time spent in counseling the patient/family regarding diagnosis and treatment plan as listed above, goals of care, and symptom management. Case was discussed with nursing staff,
specialists, and care coordinators/case management. All labs and imaging personally reviewed by me. Remainder the time spent in detailed review of previous records, lab data, imaging, and other medical provider documentation.
Anticipated Discharge: > 48 hours
Subjective/Interval History
-
Date of Service: July 01, 2025
Patient was seen and examined at bedside this morning. His rectum was manually disimpacted. Wound VAC was applied to his abdominal incision.
Objective Data
-
Labs:
Laboratory Results
07/01/25 07/01/25 07/01/25
04:09 04:54 05:51
WBC 21.3 H
Hgb 7.5 L
Hct 27.5 L
Plt Count 329
HCO3 36.6 H
Sodium Cancelled 155 H
Potassium Cancelled 4.1
Chloride Cancelled 115 H
Carbon Dioxide Cancelled 38 H
BUN Cancelled 48 H
Creatinine Cancelled 0.9
Glucose Cancelled 195 H
Calcium Cancelled 8.9
07/01/25
10:14
WBC
Hgb
Hct
Plt Count
HCO3 37.6 H
Sodium
Potassium
Chloride
Carbon Dioxide
BUN
Creatinine
Glucose
Calcium
Vital Signs:
Vital Signs
Temp Pulse Resp BP Pulse Ox
100.6 F H 99 26 113/42 94
07/01/25 11:00 07/01/25 13:00 07/01/25 13:00 07/01/25 13:00 07/01/25 13:00
I&O
06/30/25 07/01/25 07/02/25
06:59 06:59 06:59
Intake Total 2872.5 / 2972.0 2834.5 / 2922.5 1519.6 / 1519.6
Output Total 4476 / 4476 1365 / 1365
Balance -1603.5 / -1504.0 1469.5 / 1557.5 1519.6 / 1519.6
Review of Systems
-
Unable to obtain full review of systems at this time due to: Patient Intubation
Physical Exam
-
General: Intubated
--- NOTE | 2025-07-01 14:20 | W.PN.INTV ---
Today's Communication / Plan
Recommendations
- D5 infusion 100 mL/h for 1 L in view of hypernatremia
- Follow-up ABG in a.m.
- Start Seroquel 100 mg nightly
Assessment
-
Assessment: 64-year-old male with a past medical history of cardiomyopathy, hypertension, DM type II, history of chronic opioid use due to chronic arthritis now on buprenorphine, history of ERASMO, venous insufficiency and chronic back pain who
presented with shortness of breath, abdominal distention. Found to have severe colonic distention. Initially treated with neostigmine, attempted sigmoidoscopy without attempt. Underwent exploratory laparotomy 06/08/2025-developed shock requiring
vasopressors and remained on mechanical ventilation. We were consulted on 06/09/2025.
Chronic conditions [employer]: Hypertension, BPH, DM type II, chronic back pain, cardiomyopathy, venous insufficiency, history of ERASMO, severe osteoarthritis, chronic pain management due to arthritis currently on buprenorphine in an effort to get off of
OxyContin/oxycodone,systolic cardiomyopathy. 7.40 , on ASV 100%, FiO2 70%, PEEP of 12.
07/01/2025 Overview: Patient currently on mechanical ventilation, 500/26/80%/12. Persistent fevers noted. Current infusions propofol, fentanyl, TPN. Tube feeding stopped and NG to suction. Minimal stool output noted in ostomy bag. No
significant endotracheal secretions. Abdominal drains with mostly serous output except 1 which looks more cloudy and growing Pseudomonas
Assessment and plan
#1. Acute hypoxemic respiratory failure post laparotomy complicated by VAP of LLL, intubated 06/08, s/p trach 06/25 (Shiley 8.0 XLT)
- Initially due to abdominal distention requiring intubation, mechanical ventilation, subsequently LLL pneumonia
- S/p bronchoscopy and BAL for thick copious secretions on 06/16 and 06/20, growing Pseudomonas. Secretions have since significantly improved
- Chest x-ray with gradually improving consolidation
- Status post tracheostomy 06/25
#1a. Difficulty ventilator weaning.
- S/p Trach 06/25. Shiley, 8.0 XLT
- Body habitus, excessive secretions, severe pneumonia as well as intra-abdominal processes all are contributing to failure to liberate from mechanical ventilation
- Patient has intermittently been tried on ASV, on 06/30, in view of desaturations, he was switched back to volume assist-control. Also patient tends to desaturate with lowered PEEP and does better with 10-12 of PEEP. With his body habitus his
true transpulmonary pressure is likely a lot less than the externally applied PEEP.
- Also patient develops agitation and desaturation with weaning of sedation. Resume trial of Seroquel 100 mg nightly as it is not felt to be the etiology for fever. Follow-up EKG in a.m. to monitor QTc
#2. Pseudoobstruction with megacolon, failed conservative management, s/p ex lap
- S/p ex lap, sigmoidectomy and end colostomy, iatrogenic spillage of stool, peritonitis, umbilical hernia repair, 06/08/2025
- Small-volume stool output noted in the ostomy bag.
- TPN infusing
- Tube feeding stopped due to high residuals.
#3. Septic shock-peritonitis, intra-abdominal abscesses, concern for rectal perforation and LLL pneumonia
- Norepinephrine weaned off
- Patient had been on micafungin and Zosyn initially, subsequently switched to meropenem. 07/01, Pseudomonas is now carbapenem resistant, antibiotics switched to cefepime, Flagyl and ciprofloxacin. Also has been on IV vancomycin.
- BAL culture showing Pseudomonas
- 06/18, CT chest abdomen pelvis pursued, fluid noted in the abdomen.
- Purulent discharge from inferior margin of surgical site, bedside drainage on 06/19, sent for cultures. Growing Pseudomonas
- 06/20, IR guided peritoneal drains x 2 placed for intra-abdominal collections noted on imaging, Pseudomonas noted on peritoneal fluid culture
- Mason catheter has been discontinued 06/25. Needed to be replaced 06/27
- CT 06/29 concerning for large intraabdominal fluid collection as well as concern for rectal perforation with free air
- 06/29, s/p IR guided intraperitoneal drain placement, serous drainage noted
- Colorectal surgery on case
- Guarded prognosis.
#4. Acute on chronic heart failure with reduced ejection fraction, LVEF 35%, Stage I diastolic dysfunction
- Patient has been diuresing well with intermittent Lasix.
- Fluid balance +2.9 L over last 24 hrs
- In view of hyponatremia, give D5 infusion at 100 mL/h for 1 L
#5. Paroxysmal atrial flutter.
- Patient on outpatient Xarelto
- Heparin infusion, was held due to bloody secretions 06/25, enoxaparin p.m. started 06/26
- History of cardioversion in January 2025
- Has been on amiodarone
- LFTs normal as of 06/22
#6. Pulmonary hypertension, estimated pulmonary artery systolic pressure 50-55
- Primarily group II PH related to underlying congestive heart failure
- Continue to optimize intravascular volume, keep saturations above 90%, no indication for vasodilator therapy
- Additional dose of Lasix as needed
#7. DM type II with Hyperglycemia
- Continue glycemic protocol as indicated
#8. Prolonged QTc
- Improved after replacing potassium and magnesium
- Tolerated Seroquel well, follow-up EKG
Other medical diagnoses:
#Morbid obesity
#Venous deficiency
#History of ERASMO
#Chronic pain management due to arthritis currently on buprenorphine in an effort to wean off of OxyContin/oxycodone
-
DVT prophylaxis: -Lovenox
GI prophylaxis, pantoprazole
-
Prognosis is guarded
-
Critical care statement: A total of 48 minutes of critical care time was provided for this patient today. This includes management of unstable vital signs, evaluation of the patient at bedside, reviewing the patient's pertinent medical records
including ventilator settings, arterial blood gases, radiographs, microbiology, laboratory evaluations and discussion with primary team, critical care nursing, and respiratory therapy.

Data reviewed:
Chest x-ray 06/08/2025: Reviewed, ET tube in place. Left lower lobe airspace disease. Cardiomegaly
-
CT abdomen pelvis 06/05/2025:
The patient is significantly distended, and much of the abdominal and upper pelvic soft tissues extending anterior and to the left of the [id number], which limits evaluation, as it becomes difficult to confidently follow the loops of bowel.
There is distention of the rectum with air and stool, measuring 9.3 cm in diameter. There is marked distention of the sigmoid colon which extends into the right and central upper abdomen, with the sigmoid colon measuring up to 18 cm in diameter. The
sigmoid colon contains a moderate to large amount of stool, mainly inferiorly. There appears to be moderate distention of the rest of the visualized colon.
Small bowel loops are present, and do not appear to be significantly distended, similar appearance to prior examination.
Of note, the cecum cannot be confidently identified on the present examination
No gross evidence of free intraperitoneal air.
There is patchy parenchymal opacity within the visualized lower lungs, most likely atelectasis. A component of pneumonia is also possible, although felt to be less likely. There is no significant pleural effusion and no significant pericardial
effusion.
Coronary artery calcifications are present. Please correlate with symptoms of and risk factors for coronary artery disease, with further workup as clinically appropriate.
Of note, the stomach is not distended.
Subjective Dataa
Subjective Data
Date of Service:
Date of Service: July 01, 2025
Chief Complaint: Electronic Equipment Installer Follow Up (Septic shock/respiratory failure require mechanical ventilation)
Subjective:
Patient continues to be intubated, sedated and mechanically ventilated
Review of Systems
General: Unobtainable - Sedation
Objective Data
Data Reviewed
Vital Signs / I&O / Oxygen:
Vital Signs
Temp Pulse Resp BP Pulse Ox
100.6 F H 102 30 120/49 96
07/01/25 11:00 07/01/25 14:00 07/01/25 14:00 07/01/25 14:00 07/01/25 14:00
Intake and Output
06/30/25 07/01/25 07/02/25
06:59 06:59 06:59
Intake Total 2872.5 / 2972.0 2834.5 / 2922.5 1692.4 / 1692.4
Output Total 4476 / 4476 1365 / 1365
Balance -1603.5 / -1504.0 1469.5 / 1557.5 1692.4 / 1692.4
SaO2 [CPAP/PSV] 89
SaO2 [ASV] 75
SaO2 [A/C] 93
SaO2 96
Nasal Cannula flow liters per 3
minute
Physical Exam
General: Comfortable (Currently on mechanical ventilation), Other (Large neck) and Other (Right upper extremity PICC)
HEENT: Normocephalic and Anicteric
Cardiovascular: S1-S2, Regular Rhythm (Tachycardic), Murmur (1-2/6 systolic murmur) and Peripheral Edema (1+, lower extremity stockings in place)
Respiratory: Wheeze (n), Crackles (n), Rhonchi (n), Non-Labored Respirations and Other (Tracheostomy)
GI: Soft, Distended (Morbidly obese), Non Tender and Other (Colostomy. 3 CHRISTINE drains with serous drainage, inferior portion of incision open with dressing)
Neurology: Other (Patient does spontaneously move extremities, follows commands during sedation vacation, moves all extremities, opens eyes and turns head)
Skin: Cyanosis (n), Jaundice (n) and Rash (n)
Labs/Micro/Reports
Lab Data
07/01/25 04:54
07/01/25 05:51
Laboratory Results
07/01/25 07/01/25
04:09 10:14
pH 7.32 L 7.32 L
pCO2 71 H* 73 H*
pO2 80 L 85
HCO3 36.6 H 37.6 H
O2 Delivery Level Vent
Microbiology
06/29/25 18:25 Abdomen Anaerobic Culture - Preliminary
Culture pending. Anaerobic cultures are examined after 3
days incubation. Additional information to follow.
06/29/25 18:25 Abdomen Wound Culture - Preliminary
No growth
06/29/25 18:25 Abdomen Gram Stain - Preliminary
06/27/25 10:17 Blood/Venous Blood Culture - Preliminary
No Growth in 4 days- Final report to follow
06/27/25 09:56 Blood/Venous Blood Culture - Preliminary
No Growth in 4 days- Final report to follow
06/28/25 15:42 Sputum Respiratory Culture - Preliminary
Pseudomonas aeruginosa
06/28/25 15:42 Sputum Gram Stain - Preliminary
06/15/25 10:08 Bronch Left Lower Lobe Fungal Culture - Preliminary
Evelyn albicans
06/20/25 11:01 Bronch Right Lower Lobe Fungal Culture - Preliminary
Culture in progress.
Positive cultures are reported as soon as detected.
Final report to follow in four to five weeks.
--- NOTE | 2025-07-01 14:34 | PTCARENOTE ---
Addendum entered by Keren Alarcon RN 07/01/25 14:43:
Head ct ordered.
Original Note:
Sedation weaned throughout shift without improvement of mental status. Patient remains lethargic. Opening eyes with care/turns in bed. Does not follow commands. Prop off; Fentanyl down to 25 mcg/hr. [employer] Director notified; patient assessed at bedside.
--- NOTE | 2025-07-01 15:51 | PTCARENOTE ---
Head ct completed.
--- NOTE | 2025-07-01 17:50 | PTCARENOTE ---
Large air leak present. Tidal volumes down to 100-200's. Permastone Installer notified. Air added to cuff. TV back to 450-500.
[2025-07-01] MEDS: NOVOLOG FLEXPEN-MODERATE RESISTANCE 3 UNITS SC (18:06)
[2025-07-01 18:11] LABS: Glucose - Point of Care 248 mg/dl (70-99)
[2025-07-01] MEDS: VANCOCIN 275 MG IV (18:47)
[2025-07-01] MEDS: PACERONE 200 MG TUBE (21:20)
[2025-07-01] MEDS: SEROQUEL 100 MG TUBE (21:20)
[2025-07-01] MEDS: LIPITOR 40 MG TUBE (21:21)
[2025-07-01] MEDS: Parenteral Nutrition, Central 2190 IV (21:22)
--- NOTE | 2025-07-01 22:15 | PTCARENOTE ---
Assumed care of pt at 1900. Pt minimally responsive, will occasionally open eyes to repeated tactile stimuli but not to voice/name, will not follow commands. Remains off Propofol, received on Fentanyl at 25mcg/hr. Pt with #8 Shiley XL trach, on vent
(AC 26/500/80/12), thick segovia/yellow secretions from trach. CHRISTINE drains x3 to right side of abd, each with scant serous output, perc drain to left abd also with scant serous drainage. Wound vac to lower abd at 75 mmHg. NGT to right nare to LIS. See
nursing shift assessment flowsheet for full physical assessment details. Pt grossly incontinent of urine, able to place #21 short condom cath on patient.
[2025-07-01] MEDS: SUBLIMAZE 100 IV (22:42)
[2025-07-01] MEDS: NOVOLOG FLEXPEN 22 UNITS SC (23:53)
[2025-07-02] VITALS (73 sets, daily range): BP systolic 77–126; BP diastolic 38–74; BMI 37.3
[2025-07-02 00:03] LABS: Glucose - Point of Care 270 mg/dl (70-99)
--- NOTE | 2025-07-02 01:15 | PTCARENOTE ---
Assessment unchanged. Remains on same vent settings, remains on Fentanyl at 25mcg/hr, no change in neurological status. Will grimace or slightly open eyes to tactile stimulation. CHG cloth bath done and linens changed, condom cath has remained
intact, draining clear yellow urine. Trach care done/inner cannula changed.
[2025-07-02] MEDS: TYLENOL ORAL SOLUTION 650 MG TUBE ×4 (01:24→17:38)
[2025-07-02] MEDS: MAXIPIME 2000 MG IV (01:24)
[2025-07-02] MEDS: STERILE WATER FOR INJECTION 10 ML IV (01:24)
[2025-07-02] MEDS: FLAGYL 500 MG 100 IV ×3 (01:25→18:09)
[2025-07-02 04:11] LABS: Hematocrit 26.5 % (39.0-52.0); Hemoglobin 7.3 g/dL (13.0-18.0); Mean Corp Hgb Conc. 27.5 g/dL (33.0-37.0); Mean Corpuscular Volume 91.1 fL (80.0-94.0); Platelet Count 227 10^3/uL (130-400); Red Cell Dist. Width 15.9 % (11.5-14.5)
[2025-07-02 04:56] LABS: Blood Urea Nitrogen 57 mg/dl (9-20); Calcium 8.6 mg/dl (8.4-10.2); Carbon Dioxide 38 mmol/L (22-30); Chloride 116 mmol/L (98-107); Estimated Creatinine Clearance 80 ml/min; Glucose 176 mg/dl (70-99); Potassium 3.9 mmol/L (3.5-5.1); Sodium 155 mmol/L (135-145); eGFR 56.13
--- NOTE | 2025-07-02 04:56 | PTCARENOTE ---
Assessment unchanged. Pt has been febrile all shift. Received Tylenol x1 shortly before 0130, see EMAR. ST 100s with frequent PVCs, sometimes every 3rd-4th beat with a self-limiting 6 beat run of VTach once this shift. BPs have been soft with MAPs <
65 at times but systolics mostly >100. CHRISTINE drain A putting out purulent thick segovia drainage, CHRISTINE B and C continue with serous/straw colored drainage. Fentanyl drip off since ~134, pt's mental status unchanged. Required bladder scan/straight cath
around 0300 due to not voiding in several hours, pt did not respond to straight cath. Will continue to grimace with mouth care and coughed when trach suctioned but otherwise has not been responsive to stimuli.
[2025-07-02 04:59] LABS: B.E. 9.2 mmol/L; HCO3 36.4 mmol/L (21-28); O2 Saturation % 99.5 % (94-98); O2 Therapy VENT; PCO2 69 mmHg (35-48); PO2 118 mmHg (83-108)
[2025-07-02] MEDS: NOVOLOG FLEXPEN-MODERATE RESISTANCE 1 UNITS SC (05:23)
[2025-07-02] MEDS: NOVOLOG FLEXPEN 22 UNITS SC (05:23)
[2025-07-02 05:33] LABS: Glucose - Point of Care 172 mg/dl (70-99)
[2025-07-02] MEDS: CIPRO 400 MG 200 IV (05:52)
[2025-07-02] MEDS: RELISTOR 12 MG SC (08:00)
[2025-07-02] MEDS: SUBUTEX 4 MG SL (08:00)
[2025-07-02] MEDS: NSS (PRESERVATIVE FREE) 10 ML IV (08:00)
[2025-07-02] MEDS: PROTONIX IV 40 MG IV (08:00)
[2025-07-02] MEDS: FLOMAX 0.4 MG TUBE (08:00)
[2025-07-02] MEDS: DESENEX/MITRAZOL/ZEASORB 1 APPLIC TOPICAL ×2 (08:01→20:24)
[2025-07-02] MEDS: HYDROPHOR 1 APPLIC TOPICAL (08:01)
[2025-07-02] MEDS: MIRALAX 17 GRAMS TUBE (08:01)
[2025-07-02] MEDS: SANTYL OINTMENT TOPICAL (08:02)
[2025-07-02] MEDS: LANTUS 0.34 UNITS SC (08:09)
--- NOTE | 2025-07-02 08:15 | W.PN.CRS1 ---
Addendum entered and electronically signed by Corine Mcduffie PA-C 07/02/25 13:36:
I updated the patient's , Bernie, on the phone for about 12 minutes.
Original Note:
Today's Communication / Plan
-
tpn
wound vac
Assessment/Plan
-
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
obstipation associated with megacolon. WBC 11.[address] showing gaseous distention of the colon, diameter of the sigmoid up to 18 cm in diameter. He received a dose of neostigmine, which failed. He underwent attempt at decompressive sigmoidoscopy,
but encountered too much stool. Due to refractory nature of his issue, we proceeded with surgery.
POD 24 exlap, sigmoidectomy, end-colostomy; iatrogenic spillage of stool - controlled and abdomen washed out, no colonic ischemia or perforation
POD 7 Tracheostomy placement
06/15 and 06/20 bronch for mucous plugging
06/19 midline incision opened up, +pseudomonas/mixed aneerobes
06/20 IR drains x2 to RUQ +pseudomonas in 1 of 2
06/29- IR successful ultrasound-guided drainage catheter placement into a left-sided intraperitoneal fluid collection.
Tmax 102.5
WBC: 14.3 (21.3) , Hgb 7.3 (7.5)
Insulin gtt for hyperglycemia with TPN in setting of h/o DM
Tube feeds now on hold due to high residuals
Plan:
- Continue daily TPN
- ID following for management of ABX
- Maintain all drains, await cultures
- Discussed case with pulmonology/ICU team
- Continue morales given retention with removal
- Eventual PEG with GI when medically stable - appreciate GI who is standing by
- Maintain wound vac
- Medical management as per ICU team
Subjective Data
Procedure
06/08/25- Exploratory laparotomy, lysis of adhesions, sigmoidectomy, decompression of right colon, abdominal washout, creation of end descending colostomy, umbilical hernia repair
Subjective Data
Date of Service: July 02, 2025
Off sedation. Trached. Not responsive but squeezes eyes to light and pupils 3 and reactive.
Objective Data
-
Vital Signs
Temp Pulse Resp BP Pulse Ox
101.3 F H 106 28 109/49 97
07/02/25 02:37 07/02/25 08:00 07/02/25 08:00 07/02/25 08:00 07/02/25 08:00
Intake & Output
07/01/25 07/02/25 07/03/25
06:59 06:59 06:59
Intake Total 2834.5 / 2922.5 4932.15 / 5023.15 392 / 392
Output Total 1365 / 1365 1704 / 1704
Balance 1469.5 / 1557.5 3228.15 / 3319.15 392 / 392
Intake:
Oral fluids 0 / 0
IV fluids (Total) 610.5 / 632.5 1353.15 / 1353.15
D5w 1,000 ml @ 100 mls/hr IV . 1200 / 1200
Q10H JASBIR Rx#:[id number]
Fentanyl gtt 172.5 / 177.5 63.75 / 63.75
Insulin 30 / 30
Propofol 408 / 425 89.4 / 89.4
IV piggybacks 534 / 534 1245 / 1245
TPN/PPN 1640 / 1706 1809 / 1900 182 / 182
Tube feeding 240 / 240
Amount instilled into Drain ( 20 / 20 20 / 20
Total)
Right Middle Abdomen Milton-
Vo B Placed in IR
Right Upper Abdomen [place]-
Vo A Placed in IR
Amount instilled into GI Tube ( 265 / 265 210 / 210
Total)
[place] Sump 265 / 265 210 / 210
Output:
Drain Output (Total) 290 / 290 84 / 84
Left Middle Abdomen 275 / 275
Right Lower Abdomen [place]-
Vo
Right Middle Abdomen [place]-
Vo B Placed in IR
Right Upper Abdomen [place]-
Vo A Placed in IR
Gastrointestinal tube output ( 750 / 750 950 / 950
Total)
[place] Sump 750 / 750 950 / 950
Urine, Voided 100 / 100
Straight cath output 325 / 325 570 / 570
Other:
How many times incontinent 1
MODERATE amount urine
How many times incontinent 1 2
SATURATED amount urine
Lab Results
07/02/25 03:43
07/02/25 03:43
Physical Exam
-
General: Other (trach. off sedation. eyes closed. )
Abdomen: Soft
Wound: Other (wound vac in place. jorge drains purulent/serous. )
[2025-07-02 08:17] LABS: Glucose - Point of Care 156 mg/dl (70-99)
--- NOTE | 2025-07-02 08:24 | W.PN.UPDATE ---
Update Note
Progress Note Update
please call us back when he is medically ready for a PEG - still with high fevers and a wound vac
--- NOTE | 2025-07-02 08:41 | W.PN.ENT ---
Today's Communication
-
as above
Impression / Plan
-
Routine trach care
Please call with any questions
Subjective Data
-
The patient is POD#7 s/p tracheostomy
Objective Data
-
Vital Signs
Temp Pulse Resp BP Pulse Ox
102.8 F H 106 28 109/49 97
07/02/25 08:00 07/02/25 08:00 07/02/25 08:00 07/02/25 08:00 07/02/25 08:00
Intake & Output
07/01/25 07/02/25 07/03/25
06:59 06:59 06:59
Intake:
Oral fluids 0 / 0
IV fluids (Total) 610.5 / 632.5 1353.15 / 1353.15
D5w 1,000 ml @ 100 mls/hr IV . 1200 / 1200
Q10H JASBIR Rx#:[id number]
Fentanyl gtt 172.5 / 177.5 63.75 / 63.75
Insulin 30 / 30
Propofol 408 / 425 89.4 / 89.4
IV piggybacks 534 / 534 1245 / 1245
TPN/PPN 1640 / 1706 1809 / 1900 182 / 182
Tube feeding 240 / 240
Amount instilled into Drain ( 20 / 20 20 / 20
Total)
Right Middle Abdomen [place]-
Vo B Placed in IR
Right Upper Abdomen [place]-
Vo A Placed in IR
Amount instilled into GI Tube ( 265 / 265 210 / 210
Total)
[place] Sump 30 265 / 265 210 / 210
Output:
Drain Output (Total) 290 / 290 84 / 84
Left Middle Abdomen 275 / 275
Right Lower Abdomen [place]-
Vo
Right Middle Abdomen [place]-
Vo B Placed in IR
Right Upper Abdomen -
Vo A Placed in IR
Gastrointestinal tube output ( 750 / 750 950 / 950
Total)
[place] Sump 750 / 750 950 / 950
Urine, Voided 100 / 100
Straight cath output 325 / 325 570 / 570
Other:
How many times incontinent 1
MODERATE amount urine
How many times incontinent 1 2
SATURATED amount urine
Lab Results
07/02/25 03:43
07/02/25 03:43
PT 17.4 Sec (11.4-14.6) H 06/09/25 00:01
INR 1.40 06/09/25 00:01
APTT 106.6 Sec (23.4-35.0) H 06/24/25 04:03
Calcium 8.6 mg/dl (8.4-10.2) 07/02/25 03:43
Phosphorus 3.3 mg/dl (2.5-4.5) 06/29/25 23:52
Magnesium 2.3 mg/dl (1.6-2.3) 06/29/25 23:52
Total Bilirubin 0.4 mg/dl (0.2-1.3) 06/29/25 23:52
Direct Bilirubin 0.4 mg/dl (0.0-0.4) 06/15/25 04:25
AST 75 U/L (17-59) H 06/29/25 23:52
ALT 42 U/L (0-50) 06/29/25 23:52
Alkaline Phosphatase 107 U/L (38-126) 06/29/25 23:52
Triglycerides 123 mg/dl (10-149) 07/01/25 05:51
Lipase 37 U/L (23-300) 06/05/25 20:51
TSH 1.29 uIU/ml (0.47-4.68) 06/10/25 04:19
Urine Color Yellow 06/28/25 13:40
Urine Clarity Clear (Clear) 06/28/25 13:40
Urine pH 6.0 (5.0-9.0) 06/28/25 13:40
Ur Specific [place] 1.015 (<1.030) 06/28/25 13:40
Urine Ketones Negative (Negative) 06/28/25 13:40
Urine Occult Blood 3+ (Negative) A 06/11/25 09:27
Physical Exam
-
Trach sutures removed without difficulty
--- NOTE | 2025-07-02 09:06 | PHA.VAN.FU ---
Vancomycin Assessment / Plan
- Assessment
Renal Function: SCR Increasing
WBC's are: Trending Down
In the past 24 hrs, patient has been: Febrile
Concomitant Antimicrobials: cefepime, ciprofloxacin, metronidazole
- Assessment - Therapeutic Drug Monitoring
Random Level: 22 - drawn ~9H after previous dose of 1250mg
- Dosing Plan
Dosing by Level: Re-dose today (re-dose today with 1250mg)
- Monitoring Plan
Random Level: 07/03 06
- Follow Up
Pharmacy will continue to follow.
Vancomycin Follow UP
- -
Patient Age: 64
Patient Sex: Male
Vancomycin Day #: 5
Indication: Gi / Intra-Abdominal
Requesting Provider: Dr. Quispe
Pertinent Antimicrobial Allergies:
NKDA
Height / Weight:
Height 6 ft 3 in
Actual Weight 135.5 kg
Pertinent Past Medical History: BMI ~ 40
- Vital Signs / Lab Results
Temp Pulse Resp BP Pulse Ox
102.8 F H 106 28 109/49 97
07/02/25 08:00 07/02/25 08:00 07/02/25 08:00 07/02/25 08:00 07/02/25 08:00
Lab Results - Hematology
06/30/25 07/01/25 07/02/25
04:59 04:54 03:43
WBC 15.8 H 21.3 H 14.3 H
Lab Results - Chemistry
06/29/25 06/30/25 07/01/25
23:52 04:59 04:54
BUN 39 H 40 H Cancelled
Creatinine 0.6 L 0.6 L Cancelled
Estimated Creat Clear > 125 > 125 Cancelled
Albumin 2.2 L
07/01/25 07/02/25
05:51 03:43
BUN 48 H 57 H
Creatinine 0.9 1.4 H
Estimated Creat Clear 124 80
Albumin
Microbiology Results
06/29/25 18:25 Wound Culture - Preliminary
Abdomen No growth
Gram Stain - Preliminary
06/28/25 15:42 Respiratory Culture - Final
Sputum Pseudomonas aeruginosa
Pseudomonas aeruginosa#2
Gram Stain - Final
06/29/25 18:25 Anaerobic Culture - Preliminary
Abdomen Culture pending. Anaerobic cultures are examined after 3
days incubation. Additional information to follow.
06/27/25 10:17 Blood Culture - Preliminary
Blood/Venous No Growth in 4 days- Final report to follow
06/27/25 09:56 Blood Culture - Preliminary
Blood/Venous No Growth in 4 days- Final report to follow
Therapeutic Drug Monitoring
Vancomycin Peak 28.0 ug/ml (18-26) H 06/30/25 21:13
Vancomycin Trough 16.9 ug/ml (5-20) 07/01/25 04:54
Random Vancomycin 22.0 ug/ml 07/02/25 03:43
[2025-07-02] MEDS: LR 500 IV (10:07)
[2025-07-02] MEDS: MAXIPIME IV (10:13)
[2025-07-02] MEDS: STERILE WATER FOR INJECTION IV (10:13)
[2025-07-02] MEDS: D5W 1000 IV ×2 (10:47→18:41)
[2025-07-02] MEDS: LOVENOX 120 MG SC (10:48)
--- NOTE | 2025-07-02 10:59 | PN.DE.MGMTRT ---
Insulin Management
- -
07/02/2025: Diabetes Management Follow up
Patient admitted 06/05 with c/o difficulty breathing. Diabetes management consult 06/15. PMH 5 weeks of constipation with abdominal distention, HTN, A-Fib, CHF Prior to admission was taking Lantus 24 units daily with NovoLog 20 units AC and Farxiga 5
mg daily. A1C on admission 7.1%, cr today 0.5, eGFR > 60.
Patient remains intubated and sedated. Information obtained from chart and patient nurse and pharmacist. Patient s/p OR 06/08 for lysis of adhesions, sigmoidectomy, with end descending colostomy and s/p tracheostomy 06/25. Continues with TPN.
Transitioned from critical care glycemic protocol 06/30, to lantus 30 units in AM and Q 6 hour novolog 14 units. Glucose range 208 to 270.
Lantus increased to 34 units and Q 6 hour novolog to 18 units; overnight provider increased Q 6 hour novolog to 22 units with moderate corrective insulin.
Fasting glucose 172. Will make no change to current regimen.
Discussed with nurse.
Will cont to follow.
Diabetes History
- -
Type of Diabetes: 2 requiring insulin
Pre-Admission Diabetes Regimen
07/02/25
03:43
Creatinine 1.4 H
Lab Results
Hemoglobin A1c 7.8 % (4.0-5.6) H 06/22/25 03:20
Insulin Pump Settings
IP Diabetes Regimen
07/01/25 07/01/25 07/01/25
12:06 18:00 23:52
Glucose
POC Glucose 254 H 248 H 270 H
07/02/25 07/02/25 07/02/25
03:43 05:22 08:06
Glucose 176 H
POC Glucose 172 H 156 H
Patient Education
[2025-07-02] MEDS: VANCOCIN 275 MG IV (11:56)
[2025-07-02] MEDS: ZOSYN 100 IV ×2 (11:56→17:39)
[2025-07-02 12:02] LABS: Glucose - Point of Care 248 mg/dl (70-99)
[2025-07-02] MEDS: NOVOLOG FLEXPEN-MODERATE RESISTANCE 3 UNITS SC (12:11)
[2025-07-02] MEDS: NOVOLOG FLEXPEN 25 UNITS SC ×2 (12:12→17:19)
--- NOTE | 2025-07-02 12:17 | W.PN.ID1 ---
Addendum entered and electronically signed by Katia Quispe MD 07/02/25 16:00:
I spoke to Mrs. Knapp. Mr. Knapp continues to decline despite prolonged courses of antibiotics, percutaneous drainages. Without source control of bowel/rectal perforation, antibiotic management is often futile. He is critically ill and too
high risk for surgical intervention. Prognosis is extremely poor and should consider comfort measures.
Original Note:
Date of Service
Date of Service: July 02, 2025
Today's Communication
Cipro/zosyn/metronidazole/Vanco
poor prognosis.
Assessment / Plan
# rectal perforation (06/29) with large left intra-abd abscess
# Fever persists
# Leukocytosis improved
# MDR- carbapenem resistant Pseudomonas
- 06/29 s/p IR perc drain placement
abscess cx's neg to date
- Possible eventual laparotomy pending pt's condition, per colorectal
- (Pseudomonas (from sputum) now carbapenem-resistant)
- Continue cipro 400mg IV q12 (d2) and metronidazole 500mg IV q8h (d2)
- Decrease mental status doubt due to cefepime (had 1 dose).
However, replace cefepime with Zosyn IV.
- Continue Vancomycin IV (d5)
- Trend temps/wbc/vitals
- Continue ICU support.
- Contact isolation
- Overall grim prognosis
# Colonic inertia with megacolon; status post ex lap, decompression, colostomy, stool leakage into the abdomen requiring washout 06/08/2025
# Recent purulent peritonitis
# Recent PNA with Pseudomonas
# VDRF s/p trach 06/25/25
# On TPN
- 06/08/25 Exploratory laparotomy, lysis of adhesions, sigmoidectomy, decompression of right colon, abdominal washout, creation of end descending colostomy, umbilical hernia repair
- No OR cx
- Blood cultures neg
- 06/15 s/p bronch with airway clearance; cx Pseudomonas
- 06/19 Colorectal opened midline abd distal incision. cx cx Pseudomonas, mixed anaerobes
- 06/20 aspiration/drainage of right abdominal peritoneal collections x 2. 1 of 2 cx : Pseudomonas
-06/28 Sputum CR -Pseudomonas
- 06/29 CXR: improving opacities
- s/p 10d empiric micafungin
- s/p Vancomycin IV x 6d previously
- s/p Zosyn(8d) -> meropenem (12d) -> cipro/zosyn (d2)
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
HFrEF
HTN
DM
Afib
HLD
Colonic Inertia / Dysmotility
Chronic opioid dependence
Advanced bilateral lower extremity venous insufficiency
Morbid obesity (BMI~43)
Chief Complaint
-: Fever, Leukocytosis and Other (Purulent peritonitis)
Vital Signs / Physical Exam
Vital Signs
Vital Signs
Temp Pulse Resp BP Pulse Ox
102.8 F H 95 23 102/55 94
07/02/25 08:00 07/02/25 12:00 07/02/25 12:00 07/02/25 12:00 07/02/25 12:00
Physical Exam
Constitutional: Acutely Ill
Cardiovascular: Regular Rate and S1/S2
Pulmonary: Clear (anterior lungs), Coarse and Other (Trach vent)
Gastrointestinal: Soft, Non Tender and Other (L perc drain bag serous light yellow fluid. RUQ drain #1 cloudy cream colored drainage; drain #2 serous, RLQ drain serous. L perc drain clear yellow fluid. Lower incision large wound vac in place)
Genito-Urinary: [place] and Clear Urine
Extremities: Edema and Venous Insufficiency
Lines: PICC (RUE no erythema)
Objective Data
Lab Data
Lab Results
07/02/25 03:43
07/02/25 03:43
PT 17.4 Sec (11.4-14.6) H 06/09/25 00:01
INR 1.40 06/09/25 00:01
APTT 106.6 Sec (23.4-35.0) H 06/24/25 04:03
Estimated Creat Clear 80 ml/min 07/02/25 03:43
Lactic Acid 0.9 mmol/L (0.7-2.0) 06/09/25 00:01
Total Bilirubin 0.4 mg/dl (0.2-1.3) 06/29/25 23:52
AST 75 U/L (17-59) H 06/29/25 23:52
ALT 42 U/L (0-50) 06/29/25 23:52
Alkaline Phosphatase 107 U/L (38-126) 06/29/25 23:52
C-Reactive Protein > 270.00 mg/L (0.0-10.00) H 06/11/25 03:22
Most recent labs reviewed.
Micro Results:
06/27/25 10:17 Blood Culture - Final
Blood/Venous No Growth - Final Report
07/02/25 10:09 Blood Culture - Pending
Blood/Venous
07/02/25 10:03 Blood Culture - Pending
Blood/Venous
06/27/25 09:56 Blood Culture - Final
Blood/Venous No Growth - Final Report
06/29/25 18:25 Wound Culture - Preliminary
Abdomen No growth
Gram Stain - Preliminary
06/28/25 15:42 Respiratory Culture - Final
Sputum Pseudomonas aeruginosa
Pseudomonas aeruginosa#2
Gram Stain - Final
06/29/25 18:25 Anaerobic Culture - Preliminary
Abdomen Culture pending. Anaerobic cultures are examined after 3
days incubation. Additional information to follow.
06/15/25 10:08 Fungal Culture - Preliminary
Bronch Left Lower Lobe [place] albicans
06/20/25 11:01 Fungal Culture - Preliminary
Bronch Right Lower Lobe Culture in progress.
Positive cultures are reported as soon as detected.
Final report to follow in four to five weeks.
06/20/25 16:38 Body Fluid Culture - Final
Peritoneal Fluid Gram Stain - Final
06/20/25 16:34 Body Fluid Culture - Final
Peritoneal Fluid Pseudomonas aeruginosa
Gram Stain - Final
06/19/25 09:59 Wound Culture - Final
Abdomen Pseudomonas aeruginosa
Gram Stain - Final
06/19/25 09:59 Anaerobic Culture - Final
Abdomen
06/20/25 11:01 Respiratory Culture - Final
Bronch Right Lower Lobe Pseudomonas aeruginosa
Gram Stain - Final
06/20/25 11:01 Acid Fast Bacilli Smear - Preliminary
Bronch Right Lower Lobe Acid Fast Bacilli Culture - Preliminary
06/17/25 13:11 MRSA Screen - Final
Nose No Methicillin Resistant Staphylococcus aureus isolated.
06/13/25 12:07 Blood Culture - Final
Blood/Venous No Growth - Final Report
06/13/25 12:07 Blood Culture - Final
Blood/Venous No Growth - Final Report
06/15/25 10:08 Acid Fast Bacilli Smear - Preliminary
Bronch Left Lower Lobe Acid Fast Bacilli Culture - Preliminary
06/15/25 10:08 Respiratory Culture - Final
Bronch Left Lower Lobe Pseudomonas aeruginosa
Gram Stain - Final
06/14/25 11:22 Respiratory Culture - Final
Tracheal Aspirate Pseudomonas aeruginosa
Gram Stain - Final
06/11/25 09:27 Blood Culture - Final
Blood/Venous No Growth - Final Report
06/11/25 09:59 Blood Culture - Final
Blood/Venous No Growth - Final Report
06/06/25 07:57 MRSA Screen - Final
Nose No Methicillin Resistant Staphylococcus aureus isolated.
Imaging:
06/24/25 CXR: Slightly increased basilar predominant airspace opacities, worse on the left. Findings may be related to pneumonia or worsening atelectasis.
06/18/25 CT c/a/p: Suspected moderate volume mildly complex presumed free fluid in the abdomen, overall increased in volume in comparison to recent prior study, most prominently located in the right subhepatic region, right subdiaphragmatic region
and likely left abdomen/pelvis.
06/16/25 CXR: There is moderate airspace disease in right lower lung field concerning for pneumonia. There is obscuration of the left hemidiaphragm suggesting left lower lobe pneumonia
06/15/25 CXR: No pneumothorax status post bronchoscopy. Progressive homogeneous increased retrocardiac opacity. Suspect mild left perihilar and right infrahilar opacity which could represent atelectasis or pneumonia.
06/13/25 CT a/p: Very limited study. Small volume fluid in the abdomen, particularly in the left abdomen mildly complex. As this fluid is incompletely included, it cannot be determined whether this totally represents likely free fluid or combination
of free fluid and abnormal focal fluid collection. Additional small abnormal focal fluid collections cannot be excluded on the basis of this markedly limited study. Apparent recent prior partial sigmoidectomy with large volume stool seen in the
residual sigmoid colon and rectum.
06/10 CXR: Stable CHF and bibasilar atelectasis and/or pneumonia.
06/08/25 CXR: Diffuse marked colonic dilation. Measurement of caliber of the upper colon is slightly greater then obstruction series of June 07, 2025. Multiple air-fluid levels compatible with stasis. Moderate amount of stool within the inferior
aspect of the right colon as well as within the rectum. No gross evidence for free intraperitoneal air.
06/05/25 CT a/p: Significant gaseous distention of a large portion of the colon. This contributes to limitation of this examination, as the patient cannot be fully included on the [id number] of the CT scanner. If there can be some distal colonic
decompression, repeat scan could be considered, when hopefully the patient could be entirely included on the [id number] of the exam. No gross evidence for free intraperitoneal air. Patchy parenchymal opacity within the visualized lower lung, most
likely atelectasis. Pneumonia is a differential consideration, felt to be less likely based on morphologic appearance.
Care Review
Plan reviewed with: Physician (Dr. Solano)
[2025-07-02] MEDS: LEVOPHED 250 IV ×2 (13:27→19:31)
--- NOTE | 2025-07-02 13:31 | PTCARENOTE ---
Patient hypotensive. MAP <65. Mobile Lounge Driver Or Operator notified. Levophed gtt initiated. updated over phone.
--- NOTE | 2025-07-02 13:39 | CM ---
Rectal perforation (06/29) with large left intra-abd abscess, Abdominal wound vac, IV/AB, TPN, Trach, vent, off sedation, responds to deep stimuli, EKG today with sinus tachycardia and PVC's, remains febrile at intervals, for peg when fevers subside.
Discharge POC: TBD with medical progression.
--- NOTE | 2025-07-02 13:47 | W.PN.INTV ---
Today's Communication / Plan
Recommendations
- Repeat blood cultures
- Resume Levophed to keep MAP 65 or above
- Follow-up urine output, labs in a.m.
- Chest x-ray and ABG in a.m.
- EEG to evaluate for nonconvulsive seizures, neurology consult
- Ringer lactate 500 mL bolus, initiate D5W at 125 mL/h
Assessment
-
Assessment: 64-year-old male with a past medical history of cardiomyopathy, hypertension, DM type II, history of chronic opioid use due to chronic arthritis now on buprenorphine, history of ERASMO, venous insufficiency and chronic back pain who
presented with shortness of breath, abdominal distention. Found to have severe colonic distention. Initially treated with neostigmine, attempted sigmoidoscopy without attempt. Underwent exploratory laparotomy 06/08/2025-developed shock requiring
vasopressors and remained on mechanical ventilation. We were consulted on 06/09/2025.
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
OxyContin/oxycodone,systolic cardiomyopathy. 7.40 /, on ASV 100%, FiO2 70%, PEEP of 12.
07/02/2025 Overview: Patient currently on mechanical ventilation, 7.33/69/118 on Volume AC 500/26/80%/12. Persistent fevers noted. Current infusions only TPN. Tube feeding stopped and NG to suction. Trace stool output noted in ostomy bag. No
significant endotracheal secretions. Abdominal drains with mostly serous output except 1 which looks more cloudy and growing Pseudomonas
Assessment and plan
#1. Acute hypoxemic respiratory failure post laparotomy complicated by VAP of LLL, intubated 06/08, s/p trach 06/25 (Shiley 8.0 XLT)
- Initially due to abdominal distention requiring intubation, mechanical ventilation, subsequently LLL pneumonia
- S/p bronchoscopy and BAL for thick copious secretions on 06/16 and 06/20, growing Pseudomonas. Secretions have since significantly improved
- Chest x-ray with gradually improving consolidation
- Status post tracheostomy 06/25
#1a. Difficulty ventilator weaning.
- S/p Trach 06/25. Estelaley, 8.0 XLT
- Body habitus, initially excessive secretions, severe pneumonia as well as intra-abdominal processes all are contributing to failure to liberate from mechanical ventilation
- Patient has intermittently been tried on ASV, on 06/30, in view of desaturations, he was switched back to volume assist-control. Also patient tends to desaturate with lowered PEEP and does better with 10-12 of PEEP. With his body habitus his
true transpulmonary pressure is likely a lot less than the externally applied PEEP.
- Also patient develops agitation and desaturation with weaning of sedation.
#1b. Encephalopathy of unclear etiology. (07/01)
- 07/01, patient noted to be less responsive on attempted weaning. He has since been weaned off all sedation including Seroquel. Continues to be unresponsive except some response to sternal rub
- Stat chest x-ray was pursued on 07/01 unremarkable for any acute change. Will pursue EEG to evaluate for any nonconvulsive seizures
- ABG reviewed not suggestive of worsening hypercapnia, neurology consult
- CVA, metabolic toxic encephalopathy, hypoactive ICU delirium etc. are all in differential diagnosis. With overwhelming Pseudomonas infection, meningoencephalitis also in differential diagnosis
#2. Pseudoobstruction with megacolon, failed conservative management, s/p ex lap
- S/p ex lap, sigmoidectomy and end colostomy, iatrogenic spillage of stool, peritonitis, umbilical hernia repair, 06/08/2025
- Small-volume stool output noted in the ostomy bag.
- TPN infusing
- Tube feeding stopped due to high residuals. Currently on suction, continues to have high residual.
#3. Septic shock-peritonitis, intra-abdominal abscesses, concern for rectal perforation and LLL pneumonia
- Norepinephrine weaned off, resuming 07/02
- Patient had been on micafungin and Zosyn initially, subsequently switched to meropenem. 07/01, Pseudomonas is now carbapenem resistant, antibiotics were switched to cefepime, Flagyl and ciprofloxacin. Also has been on IV vancomycin. 07/02, in
view of encephalopathy, cefepime was switched to Zosyn.
- BAL culture showing Pseudomonas
- 06/18, CT chest abdomen pelvis pursued, fluid noted in the abdomen.
- Purulent discharge from inferior margin of surgical site, bedside drainage on 06/19, sent for cultures. Growing Pseudomonas
- 06/20, IR guided peritoneal drains x 2 placed for intra-abdominal collections noted on imaging, Pseudomonas noted on peritoneal fluid culture
- Mason catheter has been discontinued 06/25. Needed to be replaced 06/27
- CT 06/29 concerning for large intraabdominal fluid collection as well as concern for rectal perforation with free air
- 06/29, s/p IR guided intraperitoneal drain placement, serous drainage noted
- Colorectal surgery on case
- 07/02. Continues to be febrile, again developing hypotension, Levophed resumed
- Guarded prognosis.
#4. Acute on chronic heart failure with reduced ejection fraction, LVEF 35%, Stage I diastolic dysfunction
- Patient has been diuresing well with intermittent Lasix.
- Fluid balance +2.9 L over last 24 hrs
- In view of hyponatremia, start D5W infusion
#5. Paroxysmal atrial flutter.
- Patient on outpatient Xarelto
- Heparin infusion, was held due to bloody secretions 06/25, enoxaparin p.m. started 06/26
- History of cardioversion in January 2025
- Has been on amiodarone
- LFTs normal as of 06/22
#6. Pulmonary hypertension, estimated pulmonary artery systolic pressure 50-55
- Primarily group II PH related to underlying congestive heart failure
- Continue to optimize intravascular volume, keep saturations above 90%, no indication for vasodilator therapy
- Additional dose of Lasix as needed
#7. DM type II with Hyperglycemia
- Continue glycemic protocol as indicated
#8. Prolonged QTc
- Improved after replacing potassium and magnesium
#9. CONY. (07/02)
- Overall positive fluid balance by 3 L
- Ringer lactate 500 mL bolus, initiate D5W infusion in view of hypernatremia
- Start pressors to keep MAP above 65
Other medical diagnoses:
#Morbid obesity
#Venous deficiency
#History of ERASMO
#Chronic pain management due to arthritis currently on buprenorphine in an effort to wean off of OxyContin/oxycodone
-
DVT prophylaxis: -Lovenox
GI prophylaxis, pantoprazole
-
Prognosis is guarded
Goals of care discussion 07/02. I called patient's and updated about patient's current condition. Considering lack of significant progress over the days and now worsening encephalopathy, developing hypotension, increasing pressor requirement
and CONY, overall prognosis is very poor. I brought up the option of pursuing more comfort focused care. Patient's was appreciative of the input and wants to talk to other care providers including infectious disease and surgery service.
-
Critical care statement: A total of 68 minutes of critical care time was provided for this patient today. This includes management of unstable vital signs, evaluation of the patient at bedside, reviewing the patient's pertinent medical records
including ventilator settings, arterial blood gases, radiographs, microbiology, laboratory evaluations and discussion with primary team, critical care nursing, and respiratory therapy.

Data reviewed:
Chest x-ray 06/08/2025: Reviewed, ET tube in place. Left lower lobe airspace disease. Cardiomegaly
-
CT abdomen pelvis 06/05/2025:
The patient is significantly distended, and much of the abdominal and upper pelvic soft tissues extending anterior and to the left of the [id number]-bo-mrad, which limits evaluation, as it becomes difficult to confidently follow the loops of bowel.
There is distention of the rectum with air and stool, measuring 9.3 cm in diameter. There is marked distention of the sigmoid colon which extends into the right and central upper abdomen, with the sigmoid colon measuring up to 18 cm in diameter. The
sigmoid colon contains a moderate to large amount of stool, mainly inferiorly. There appears to be moderate distention of the rest of the visualized colon.
Small bowel loops are present, and do not appear to be significantly distended, similar appearance to prior examination.
Of note, the cecum cannot be confidently identified on the present examination
No gross evidence of free intraperitoneal air.
There is patchy parenchymal opacity within the visualized lower lungs, most likely atelectasis. A component of pneumonia is also possible, although felt to be less likely. There is no significant pleural effusion and no significant pericardial
effusion.
Coronary artery calcifications are present. Please correlate with symptoms of and risk factors for coronary artery disease, with further workup as clinically appropriate.
Of note, the stomach is not distended.
Subjective Dataa
Subjective Data
Date of Service:
Date of Service: July 02, 2025
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
Subjective:
Patient currently intubated, mechanically ventilated, off sedation, minimally responsive to deep stimulation
Review of Systems
General: Unobtainable - Pat Unresp
Objective Data
Data Reviewed
Vital Signs / I&O / Oxygen:
Vital Signs
Temp Pulse Resp BP Pulse Ox
101.9 F H 98 21 89/47 93
07/02/25 12:00 07/02/25 13:09 07/02/25 13:09 07/02/25 13:09 07/02/25 13:09
Intake and Output
07/01/25 07/02/25 07/03/25
06:59 06:59 06:59
Intake Total 2834.5 / 2922.5 4932.15 / 5023.15 2277 / 2277
Output Total 1365 / 1365 1704 / 1704
Balance 1469.5 / 1557.5 3228.15 / 3319.15 2277 / 2277
SaO2 [CPAP/PSV] 89
SaO2 [ASV] 75
SaO2 [A/C] 94
SaO2 93
Nasal Cannula flow liters per 3
minute
Physical Exam
General: Comfortable (Currently on mechanical ventilation) and Other (Large neck)
HEENT: Normocephalic and Anicteric
Cardiovascular: S1-S2, Regular Rhythm (Tachycardic), Murmur (1-2/6 systolic murmur) and Peripheral Edema (Only trace residual puffiness)
Respiratory: Wheeze (n), Crackles (n), Rhonchi (n), Non-Labored Respirations and Other (Tracheostomy)
GI: Soft, Distended (Morbidly obese), Non Tender and Other (Colostomy with trace amount of stool. 3 additional drains placed by IR service, right-sided purulent drainage noted, rest appears serous.)
Neurology: Other (Essentially unresponsive except to deep sternal rub)
Skin: Cyanosis (n), Jaundice (n) and Rash (n)
Labs/Micro/Reports
Lab Data
07/02/25 03:43
07/02/25 03:43
Laboratory Results
07/02/25
04:48
pH 7.33 L
pCO2 69 H
pO2 118 H
HCO3 36.4 H
O2 Delivery Level Vent
Microbiology
06/27/25 10:17 Blood/Venous Blood Culture - Final
No Growth - Final Report
06/27/25 09:56 Blood/Venous Blood Culture - Final
No Growth - Final Report
06/29/25 18:25 Abdomen Wound Culture - Preliminary
No growth
06/29/25 18:25 Abdomen Gram Stain - Preliminary
06/28/25 15:42 Sputum Respiratory Culture - Final
Pseudomonas aeruginosa
Pseudomonas aeruginosa#2
06/28/25 15:42 Sputum Gram Stain - Final
06/29/25 18:25 Abdomen Anaerobic Culture - Preliminary
Culture pending. Anaerobic cultures are examined after 3
days incubation. Additional information to follow.
06/15/25 10:08 Bronch Left Lower Lobe Fungal Culture - Preliminary
Evelyn albicans
06/20/25 11:01 Bronch Right Lower Lobe Fungal Culture - Preliminary
Culture in progress.
Positive cultures are reported as soon as detected.
Final report to follow in four to five weeks.
--- NOTE | 2025-07-02 15:20 | W.PN.HOSP.TC ---
Today's Communication/Plan
-
Assessment / Plan
Assessment / Plan
General: Intubated, critically ill-appearing
HEENT: NormoCephalic, tracheostomy and and OGT in place
Respiratory: Mechanical breath sounds bilaterally, equal chest rise
Cardiac: S1/S2 and Regular Rhythm; No Rub or Gallop
GI: Left-sided colostomy with minimal output of brown stool, CHRISTINE drain with serous output, 3 IR drains with serous output, midline incision with wound VAC in place
Musculoskeletal: No Edema, no deformity
Skin: Warm and dry
: Mason in place (replaced 06/27)
Neuro: Sedated, responds to noxious stimuli
Psych: Unable to assess
Impression:
Mr. Knapp is a 64-year-old male with medical history of HFpEF, A-fib/flutter, IDDM, obesity, chronic pain with subsequent opioid dependence, and chronic constipation with colonic dysmotility who presented with shortness of breath, abdominal
bloating and discomfort, constipation. His last bowel movement was 2 weeks prior to arrival. He is having increasing difficulty breathing due to worsening abdominal distention. He has had multiple similar episodes since September 2024 and has
previously required decompression. He has been treated with enemas and neostigmine previously. Abdominal imaging showed significant colonic distention with air-filled loops of bowel. He also had patchy parenchymal opacities within the mid to
lower lungs. He was mildly hypoxic and has been started on antibiotics. He has remained afebrile with a mild leukocytosis of just over 12,000. He has been admitted for further evaluation and management.
Seen by GI, failed neostigmine, enema, status post nonsuccessful decompressive flexible sigmoidoscopy.
Surgery team consulted.
s/p Exploratory laparotomy, lysis of adhesions, sigmoidectomy, decompression of right colon, abdominal washout, creation of end descending colostomy, umbilical hernia repair on 06/08
admitted to ICU postoperatively, intubated.
Patient had fever,Infectious disease consult, started on zosyn.
Patient was still running fever, added micafungin.
CT chest: New right lower lobe consolidation with air bronchograms, atelectasis versus pneumonia, Possible small bilateral pleural effusions.
CT abdomen/pelvis shows: Small volume fluid in the abdomen, particularly in the left abdomen mildly complex. As this fluid is incompletely included, it cannot be determined whether this totally represents likely free fluid or combination of free
fluid and abnormal focal fluid collection. Additional small abnormal focal fluid collections cannot be excluded on the basis of this markedly limited study
S/p trach
Assessment/Plan:
Colonic dysmotility/ileus:
- Abdomen remained significantly distended despite multiple medical enemas and subsequent bowel movements
- Upgraded to IMU 06/07, pushed 4 mg neostigmine around 1:30 PM, no significant peristaltic response
- Ultimately required surgical intervention, brought to the OR 06/08 for ex lap with lysis of adhesions and sigmoidectomy with end descending colostomy, decompression of right colon, abdominal washout and umbilical hernia repair
- ICU postoperatively, intubated
- Colorectal surgery following, colostomy with brown stool output
- Lower fred removed from surgical incision with mucopurulent output, wound VAC now in place
- IR placed 2 abdominal drains 06/20 with serous output, a third drain was placed 06/29 for new collection, cultures pending
- Rectum was distended with stool and was manually disimpacted 07/01
- Continue TPN, holding tube feeds
- GI consult for PEG placement when otherwise medically stable
Metabolic encephalopathy:
- Unclear etiology but likely secondary to critical illness
- Currently responsive only to noxious stimuli, off of sedation
- Will pursue EEG
- CT brain 07/01 shows no acute intracranial abnormality, possible mastoiditis
- No findings on ABG to explain mental status
- Neurology consult
Hypernatremia:
- Starting D5 water
Septic shock, requiring pressors:
- Status post sigmoidectomy with multiple intra-abdominal fluid collections and pulmonary infection
- Respiratory culture from 06/28 growing Carbapenem resistant Pseudomonas
- Antibiotics transitioned to ciprofloxacin for 100 mg IV every 8 hours, cefepime 2 g IV every 8 hours, and metronidazole 500 mg IV every 8 hours
- Continuing vancomycin IV
- Discontinued meropenem
- Restarted vasopressors
- Seroquel discontinued 06/27
- Completed 10 days of empiric micafungin
- Repeat CT abdomen pelvis 06/29 showed a new large complex fluid collection for which an IR drain was placed
Acute hypoxic respiratory failure (currently intubated in the ICU postoperatively)
- Continue mechanical ventilation, ETT replaced 06/19 by survey operations director, trach placed 06/25
- Underwent bronchoscopy with BAL left lower lobe 06/15 by survey operations director, cultures growing Pseudomonas, repeat bronchoscopy with BAL 06/20 with aspiration of copious secretions
- Completed course of micafungin, continuing IV antibiotics as outlined above
- Hypertonic nebulized saline 3 times a day with albuterol, aggressive chest PT
- Additional Lasix pushes as needed
- Weaning trials as tolerated
paroxismal A-fib/flutter:
- Currently rate controlled, holding home metoprolol, continue home amiodarone 200 mg at night via OGT
- Holding home Xarelto, have transitioned to therapeutic Lovenox
IDDM:
- Insulin drip.
HFrEF:
- Acute on chronic chronic
- Holding home metoprolol succinate 100 mg
- Lasix pushes as needed, holding spironolactone, monitor daily weights
- No need for afterload reduction due to hypotension
CODE STATUS: Full code
DVT prophylaxis: Lovenox
Diet: TPN
Disposition: Continue management in the ICU.
Total time spent on today's encounter was 57 minutes which included time spent in counseling the patient/family regarding diagnosis and treatment plan as listed above, goals of care, and symptom management. Case was discussed with nursing staff,
specialists, and care coordinators/case management. All labs and imaging personally reviewed by me. Remainder the time spent in detailed review of previous records, lab data, imaging, and other medical provider documentation.
Anticipated Discharge: > 48 hours
Subjective/Interval History
-
Date of Service: July 02, 2025
Patient was seen and examined at bedside this morning. Remains responsive only to noxious stimuli off of any sedation currently. Has also been persistently febrile past 24 hours. Has frankly purulent drainage from 1 intra-abdominal drain.
Objective Data
-
Labs:
Laboratory Results
07/02/25 07/02/25
03:43 04:48
WBC 14.3 H
Hgb 7.3 L
Hct 26.5 L
Plt Count 227 D
HCO3 36.4 H
Sodium 155 H
Potassium 3.9
Chloride 116 H
Carbon Dioxide 38 H
BUN 57 H
Creatinine 1.4 H
Glucose 176 H
Calcium 8.6
Vital Signs:
Vital Signs
Temp Pulse Resp BP Pulse Ox
101.9 F H 87 23 100/53 95
07/02/25 12:00 07/02/25 15:05 07/02/25 15:05 07/02/25 15:05 07/02/25 15:05
I&O
07/01/25 07/02/25 07/03/25
06:59 06:59 06:59
Intake Total 2834.5 / 2922.5 4932.15 / 5023.15 2784 / 2784
Output Total 1365 / 1365 1704 / 1704
Balance 1469.5 / 1557.5 3228.15 / 3319.15 2784 / 2784
Review of Systems
-
Unable to obtain full review of systems at this time due to: Patient Intubation
Physical Exam
-
General: Intubated
--- NOTE | 2025-07-02 15:46 | PTCARENOTE ---
Patient persistently febrile despite multiple doses of tylenol and ice packs. Discussed with Professor Of Social Work. Cooling blanket to be reinitiated.
--- NOTE | 2025-07-02 15:53 | EEG.RPT ---
Electroencephalogram Report
Recording
Date of EE07/02/25
Type of EEG: Routine
Length of EEG recordin mins
Done with Video Recording: Yes
Patient Status: Inpatient
Recording Conditions: Confused
Hyperventilation Performed: No
Photic Stimulation Performed: Yes
Report
Clinical History:�He is a 64 year old man with toxic megacolon, pseudomonas, on cefepime, being evaluated for altered mental status
Introduction: A routine bedside EEG was done using [employer] 10-20 electrode placement protocol.
Background: In the most alert state, there is continuous generalized polymorphic delta and theta activity, symmetric and reactive.
Sleep: No sleep is seen.�
Focal/epileptiform: There were no focal or epileptiform discharges. No clinical or electrographic seizures occurred during this recording.
Rhythmic: generalized periodic discharges, triphasic morphology, frontally predominant, ~1/second
Photic stimulation: resulted in normal driving response. There was no photo myogenic or photoparoxysmal response.�
Impression: Continuous generalized slowing, triphasic waves
Clinical correlation: moderate generalized cerebral dysfunction due to toxic/metabolic/infectious etiology.
--- NOTE | 2025-07-02 16:26 | PTCARENOTE ---
Systems reviewed. Patient briefly opening eyes to painful stimuli. Pupils equal and reactive; +2mm. Does not follow commands. Neurologist at bedside. Pulse ox 94-95% on 70% fio2. Titrating Levophed for MAP >65. No other changes.
[2025-07-02 17:13] LABS: Glucose - Point of Care 276 mg/dl (70-99)
--- NOTE | 2025-07-02 17:14 | CON.NEURO ---
Neuro Assessment/Plan
Assessment
Head CT 07/01 imgs and rept reviewed and there are no acute findings.
EEG showing generalized slowing and triphasic waves 1/s consistent with toxic metabolic encephalopathy
very sick man EEG findings of toxic/metabolic encephalopathy. No focal EEG finding to explain loc/wd in left arm and not the right.
this could conceivably represent a stroke, however I don't believe an MRI is warranted as patient is unstable to spend 45' in the MRI tube and it will not change anything;
if this persists tomorrow a repeat head CT could be considered but again won't change anything
I spoke with Dr Solano and stroke or no, this patient's prognosis is very poor and I agree there is essentially no chance of a meaningful recovery
35 mins evaluating this critically ill patient, and independently reviewing imaging, examining patient, and discussing with car checker, excluding EEG reading time billed separately
Consultation
Order
Date of Consultation: 07/02/25
Requesting Provider: Xiomara
Reason for Consult: AMS
Subjective/Objective
Subjective Data
Date of Service: July 02, 2025
He is a 64 year old man admitted ~1 month ago for toxic megacolon, septic shock, pseudomonas growing everywhere, started on cefepime yesterday. Today he is febrile and requiring multiple pressors. He is trached, vented, and on TPN.
Objective Data
Vital Signs
Temp Pulse Resp BP Pulse Ox
39.0 C H 85 25 106/49 95
07/02/25 16:03 07/02/25 16:45 07/02/25 16:45 07/02/25 16:45 07/02/25 16:45
Lab Results
07/02/25 03:43
07/02/25 03:43
PT 17.4 Sec (11.4-14.6) H 06/09/25 00:01
INR 1.40 06/09/25 00:01
APTT 106.6 Sec (23.4-35.0) H 06/24/25 04:03
Sodium 155 mmol/L (135-145) H 07/02/25 03:43
Potassium 3.9 mmol/L (3.5-5.1) 07/02/25 03:43
BUN 57 mg/dl (9-20) H 07/02/25 03:43
Glucose 176 mg/dl (70-99) H 07/02/25 03:43
Calcium 8.6 mg/dl (8.4-10.2) 07/02/25 03:43
Phosphorus 3.3 mg/dl (2.5-4.5) 06/29/25 23:52
Wzr-D-Dlgstyvfbnb Pept 6380 pg/ml 06/13/25 03:47
Patient Allergies
No Known Allergies Allergy (Verified 06/05/25 19:56)
Physical Exam
-
pupils 2 mm sluggish, +cough
localizes and withdraws LUE only, grimaces to noxious stim x RUE and b/l LE
Medications
-
Active Medications
Generic Name Dose Route Start Last Admin
Trade Name Freq PRN Reason Stop Dose Admin
Acetaminophen 650 mg 06/16/25 16:04 07/02/25 12:01
Acetaminophen (Oral Solution) 650 Mg/20.3 Ml Cup TUBE 07/14/25 16:03 650 mg
Q4HPRN PRN Administration
TEMP >100.4F
Albuterol Sulfate 2.5 mg 06/26/25 09:23 06/28/25 07:56
Albuterol Nebs 2.5 Mg/3 Ml Ampul INH 07/30/25 09:22 2.5 mg
R TIDPRN PRN Administration
wheezing
Protocol
Amiodarone HCl 200 mg 06/08/25 23:48 07/01/25 21:20
Amiodarone 200 Mg Tablet TUBE 07/30/25 23:47 200 mg
HS JASBIR Administration
Atorvastatin Calcium 40 mg 06/08/25 23:48 07/01/25 21:21
Atorvastatin (Lipitor) 40 Mg Tablet TUBE 07/30/25 23:47 40 mg
HS JASBIR Administration
Buprenorphine 4 mg 06/06/25 08:00 07/02/25 08:00
Buprenorphine 2 Mg Sl Tablet SL 07/29/25 07:59 4 mg
On Hold: 07/02/25 09:35 DAILY JASBIR Administration
Collagenase 0 applic 06/26/25 09:00 07/02/25 08:02
Collagenase Ointment 2.5 Gram Jar TOPICAL 07/24/25 08:59 Not Given
DAILY JASBIR
Dextrose 12.5 grams 06/12/25 11:13
Dextrose 50% (0.5 Grams/Ml) 50 Ml Syringe IV 07/10/25 11:12
[id number] PRN
Blood Glucose < 70
Emollient Ointment 0 applic 06/09/25 08:00 07/02/25 08:01
Petrolatum/Mineral Oil (Hydrophor) Oint 100 Gram TOPICAL 07/07/25 07:59 1 applic
DAILY JASBIR Administration
Enoxaparin Sodium 120 mg 06/28/25 22:00 07/02/25 10:48
Enoxaparin Sodium 120 Mg/0.8 Ml Syringe SC 07/26/25 21:59 120 mg
Q12H JASBIR Administration
Fentanyl Citrate 50 mcg 06/21/25 09:33 06/28/25 20:21
Fentanyl (50 Mcg/Ml) 100 Mcg/2 Ml Ampul IV 07/05/25 09:32 50 mcg
[id number] PRN Administration
see protocol
Protocol
Fentanyl Citrate 1,000 mcg in 100 mls @ 0 mls/hr 06/21/25 09:45 07/01/25 22:42
Sublimaze IV 100 mls
PER PROTOCOL JASBIR Administration
Protocol
Per Protocol
Propofol 1,000,000 mcg in 100 mls @ 0 mls/hr 06/28/25 16:30 07/01/25 08:16
Diprivan IV 100 mls
PER PROTOCOL JASBIR Administration
Protocol
Per Protocol
Nutrition (Parenteral) 2,190 ml in 2,190 mls @ 91 mls/hr 07/01/25 21:00 07/01/25 21:22
Parenteral Nutrition, Central IV 07/02/25 20:59 2,190 mls
ONCE@2100 NR Administration
Protocol
Per Protocol
Metronidazole 100 mls @ 100 mls/hr 07/01/25 10:00 07/02/25 10:47
Flagyl 500 Mg IV 100 mls
Q8H JASBIR Administration
Vancomycin HCl 1 each/ Device 0 mls @ 0 mls/hr 07/01/25 10:35
IV
PER PROTOCOL JASBIR
Protocol
As Directed
Insulin Glargine 34 units/ 0.34 mls @ 0 mls/hr 07/02/25 08:00 07/02/25 08:09
Device SC 07/30/25 07:59 0.34 mls
DAILY@0800 JASBIR Administration
As Directed
Dextrose 1,000 mls @ 125 mls/hr 07/02/25 10:00 07/02/25 10:47
D5w IV 1,000 mls
.Q8H JASBIR Administration
Piperacillin Sod/Tazobactam Sod 4.5 gram in 100 mls @ 200 mls/hr 07/02/25 12:00 07/02/25 11:56
Zosyn IV 100 mls
Q6H JASBIR Administration
Nutrition (Parenteral) 2,300 ml in 2,300 mls @ 96 mls/hr 07/02/25 21:00
Parenteral Nutrition, Central IV 07/03/25 20:59
ONCE@2100 NR
Protocol
Per Protocol
Ciprofloxacin/Dextrose 200 mls @ 200 mls/hr 07/02/25 22:00
Cipro 400 Mg IV
Q12H JASBIR
Norepinephrine Bitartrate 4 mg in 250 mls @ 0 mls/hr 07/02/25 13:30 07/02/25 13:27
Levophed IV 250 mls
PER PROTOCOL JASBIR Administration
Protocol
Per Protocol
Insulin Aspart 0 units 07/01/25 12:00 07/02/25 12:11
Insulin Aspart Moderate Resistance 300 Units/3 Ml Pen.Injctr SC 07/29/25 11:59 3 units
Q6 JASBIR Administration
Protocol
Insulin Aspart 25 units 07/02/25 12:00 07/02/25 12:12
Insulin Aspart (Novolog) 100 Units/Ml 3 Ml Flexpen SC 07/30/25 11:59 25 units
Q6 JASBIR Administration
Lidocaine 1 patch 06/06/25 03:15
Lidocaine 4% Topical Patch TOPICAL
DAILYPRN PRN
upper right arm/shoulder
Methylnaltrexone Peever 12 mg 06/17/25 09:00 07/02/25 08:00
Methylnaltrexone Peever 12 Mg/0.6 Ml Injection SC 07/15/25 08:59 12 mg
DAILY JASBIR Administration
Metoprolol Succinate 100 mg 06/06/25 22:00 06/10/25 21:34
Metoprolol 100 Mg Extended Release Tablet PO 07/04/25 21:59 Not Given
On Hold: 06/11/25 19:19 HS JASBIR
Miconazole Nitrate 0 applic 06/21/25 10:00 07/02/25 08:01
Miconazole Powder Bottle TOPICAL 07/19/25 09:59 1 applic
BID JASBIR Administration
Ondansetron HCl 4 mg 06/06/25 03:15
Ondansetron 4 Mg/2 Ml Vial IV 07/29/25 03:14
Q6HPRN PRN
nausea and vomiting
Pantoprazole Sodium 40 mg 06/12/25 10:00 07/02/25 08:00
Protonix 40 Mg Iv Push IV 07/10/25 09:59 40 mg
DAILY JASBIR Administration
Polyethylene Glycol 17 grams 06/26/25 14:00 07/02/25 08:01
Polyethylene Glycol Powder 17 Grams Packet TUBE 07/24/25 13:59 17 grams
BID JASBIR Administration
Sodium Chloride 0 flush 06/06/25 04:00
Sodium Chloride 0.9% (Flush) Syringe IV 07/29/25 03:59
PER PROTOCOL JASBIR
Sodium Chloride 10 ml 06/12/25 10:00 07/02/25 08:00
Sodium Chloride 0.9% (Preservative Free) 10 Ml Vial IV 07/10/25 09:59 10 ml
DAILY JASBIR Administration
Spironolactone 25 mg 06/09/25 22:00
Spironolactone 25 Mg Tablet TUBE 07/07/25 21:59
On Hold: 06/09/25 20:00 HS JASBIR
Tamsulosin HCl 0.4 mg 06/29/25 10:00 07/02/25 08:00
Tamsulosin 0.4 Mg Capsule TUBE 07/27/25 09:59 0.4 mg
DAILY JASBIR Administration
Home Medications
�Medication �Instructions �Recorded
atorvastatin 40 mg tablet 40 mg PO HS High Cholesterol 12/24/24
buprenorphine 4 mg-naloxone 1 mg 1 film buccal DAILY Opioid use 12/24/24
sublingual film (Suboxone) disorder
amiodarone 200 mg tablet 200 mg PO HS Arrhythmia 02/02/25
furosemide 40 mg tablet (Lasix) 40 mg PO DAILYPRN PRN 03/03/25
swelling/bloating
insulin aspart U-100 100 unit/mL 20 sliding scale dose SC AC 03/03/25
(3 mL) subcutaneous pen (Novolog Diabetes
FlexPen U-100 Insulin aspart)
insulin glargine 100 unit/mL (3 24 unit SC DAILY Diabetes 03/03/25
mL) subcutaneous pen (Lantus
Solostar U-100 Insulin)
linaclotide 290 mcg capsule 290 mcg PO DAILY Constipation 03/03/25
(Linzess)
spironolactone 25 mg tablet 25 mg PO HS Blood Pressure 03/03/25
lidocaine 1.8 % topical patch 1 patch topical DAILYPRN PRN upper 05/18/25
(ZTlido) right arm/shoulder
magnesium citrate 10.5 oz PO DAILYPRN PRN 05/18/25
constipation
metoprolol succinate 100 mg 100 mg PO HS Heart Failure 05/18/25
tablet,extended release 24 hr
white petrolatum 42 % topical 1 applic topical DAILYPRN PRN 05/18/25
ointment (Hydrophor) apply to B/L legs & feet
polyethylene glycol 3350 17 gram 17 g PO BID #60 ea 05/20/25
oral powder packet
rivaroxaban 20 mg tablet (Xarelto) 20 mg PO HS Blood Clot 06/05/25
Prevention/Tx
dapagliflozin propanediol 5 mg 5 mg PO DAILY Diabetes 06/07/25
tablet (Farxiga)
lisinopril 5 mg tablet 5 mg PO DAILY Blood Pressure 06/07/25
[2025-07-02] MEDS: NOVOLOG FLEXPEN-MODERATE RESISTANCE 5 UNITS SC (17:21)
--- NOTE | 2025-07-02 17:32 | PTCARENOTE ---
10 beat run of vtach before returning to NSR/ST with frequent pvcs. Protective Services Social Worker notified. Mag and Potassium levels checked.
[2025-07-02 17:56] LABS: Magnesium 2.3 mg/dl (1.6-2.3); Potassium 3.8 mmol/L (3.5-5.1)
--- NOTE | 2025-07-02 18:16 | W.PN.UPDATE ---
Update Note
Progress Note Update
I called and spoke with his and updated her and explained that his overall condition is slowly becoming worse. He is currently on Levophed and his fevers have returned. His renal function is beginning to deteriorate and he has metabolic
encephalopathy. He is on multiple antibiotics and it appears there is adequate control of all potential sources of infection with the exception of the rectal stump area and unfortunately, it is not amenable to percutaneous drainage. We discussed
the surgical option of a laparotomy with abdominal washout, possible bowel resection, and possible feeding tube. He is extremely high risk for surgery but without it, he will not survive. Risks of surgery include, but are not limited to, bleeding,
infection, adhesions, hernias, injury to other structures, DVT, cardiopulmonary complications, and . All questions answered and she wishes to proceed with surgery. Arrangements are in progress and he is added to the OR schedule in the
morning. I have ordered blood and will hold [employer]'s therapeutic Lovenox.
[2025-07-02 19:05] LABS: INR 1.24; PT 16.1 Sec (11.4-14.6)
[2025-07-02 19:06] LABS: APTT 41.3 Sec (23.4-35.0)
[2025-07-02] MEDS: NOVOLIN R 4 UNITS IV (20:58)
[2025-07-02] MEDS: NOVOLIN R INSULIN INFUSION 100 IV (21:00)
[2025-07-02] MEDS: Parenteral Nutrition, Central 2300 IV (21:00)
[2025-07-02] MEDS: LIPITOR 40 MG TUBE (21:01)
[2025-07-02] MEDS: PACERONE 200 MG TUBE (21:02)
[2025-07-02 21:03] LABS: Glucose - Point of Care 233 mg/dl (70-99)
[2025-07-02 22:24] LABS: Glucose - Point of Care 235 mg/dl (70-99)
--- NOTE | 2025-07-02 22:54 | PTCARENOTE ---
Assumed care of pt at 1900. Pt is responsive to painful stimuli, did open his eyes when his was talking to him at bedside but otherwise has not opened eyes to command. See neuro assessment flowsheet for details. Pt noted to be lifting his left
arm up off of the bed but only trace movement to right arm and BLE. Received pt on Levophed at 10mcg/min, see med titration flowsheet for any titrations throughout the shift. TPN and D5W infusing as well. Pt started on glycemic protocol at around
2100. #[address], pt on vent (AC 26/500/70/12), SpO2 96%. SR/ST on monitor with frequent PVCs. Cooling blanket turned off at start of shift and monitoring rectal temp continuously at this time (blanket still under patient). Assessment as
documented in nursing shift assessment flowsheet. First of 2 units PRBC transfusing at this time.
[2025-07-02 23:15] LABS: Glucose - Point of Care 239 mg/dl (70-99)
[2025-07-02 23:28] LABS: Glucose - Point of Care 245 mg/dl (70-99)
[2025-07-02] MEDS: SUBLIMAZE 50 MCG IV (23:43)
[2025-07-03] VITALS (67 sets, daily range): BP systolic 88–132; BP diastolic 26–90; BMI 37.7
[2025-07-03 00:20] LABS: Glucose - Point of Care 263 mg/dl (70-99)
[2025-07-03] MEDS: ZOSYN 100 IV ×4 (00:22→23:54)
[2025-07-03] MEDS: OFIRMEV 100 IV ×4 (00:22→23:29)
[2025-07-03] MEDS: LEVOPHED 250 IV ×2 (00:51→06:24)
--- NOTE | 2025-07-03 01:15 | PTCARENOTE ---
Assessment unchanged. Remains on same vent settings. Continues on Levophed and Insulin drips as well as D5W and TPN. Bladder scanned around 2345 to make sure pt was not retaining/having overflow incontinence--showed 367mL and pt immediately
saturated the pad/sheets under him after the scan was finished. CHG cloth bath done and linens changed. #[address] cath [address]. ST 100s-120s on monitor with frequent PVCs.
[2025-07-03 01:22] LABS: Glucose - Point of Care 231 mg/dl (70-99)
[2025-07-03] MEDS: D5W 1000 IV (01:48)
[2025-07-03] MEDS: FLAGYL 500 MG 100 IV ×2 (01:49→09:44)
[2025-07-03 02:17] LABS: Glucose - Point of Care 192 mg/dl (70-99)
[2025-07-03] MEDS: SUBLIMAZE 50 MCG IV ×2 (02:20→06:21)
[2025-07-03] MEDS: NOVOLIN R INSULIN INFUSION 100 IV ×2 (03:06→19:09)
[2025-07-03 03:13] LABS: Glucose - Point of Care 149 mg/dl (70-99)
[2025-07-03 04:17] LABS: Glucose - Point of Care 143 mg/dl (70-99)
--- NOTE | 2025-07-03 04:29 | PTCARENOTE ---
Assessment unchanged. Pt showing s/s of pain based on CPOT scale, medicated with PRN Fentanyl pushes x2 this shift, see EMAR. Remains on same infusions. 2nd unit PRBC finished at approx 0425. Condom cath remains patent and draining clear yellow
urine. SR/ST 90s-120s with frequent PVCs, sometimes in bigeminal or trigeminal pattern or runs of PVCs.
[2025-07-03 04:49] LABS: Hematocrit 29.3 % (39.0-52.0); Hemoglobin 8.5 g/dL (13.0-18.0); Mean Corp Hgb Conc. 29.0 g/dL (33.0-37.0); Mean Corpuscular Volume 88.8 fL (80.0-94.0); Platelet Count 210 10^3/uL (130-400); Red Cell Dist. Width 15.9 % (11.5-14.5)
[2025-07-03 05:07] LABS: Glucose - Point of Care 127 mg/dl (70-99)
[2025-07-03 06:32] LABS: Glucose - Point of Care 120 mg/dl (70-99)
[2025-07-03 06:57] LABS: ALT (SGPT) 16 U/L (0-50); AST (SGOT) 25 U/L (17-59); Albumin 2.3 g/dl (3.5-5.0); Alkaline Phosphatase 97 U/L (38-126); Blood Urea Nitrogen 66 mg/dl (9-20); Calcium 8.6 mg/dl (8.4-10.2); Carbon Dioxide 35 mmol/L (22-30); Chloride 113 mmol/L (98-107); Estimated Creatinine Clearance 74 ml/min; Glucose 121 mg/dl (70-99); Magnesium 2.4 mg/dl (1.6-2.3); Potassium 3.4 mmol/L (3.5-5.1); Sodium 152 mmol/L (135-145); Total Protein 6.3 g/dl (6.3-8.2); eGFR 51.67
--- NOTE | 2025-07-03 07:08 | W.PN.INTV ---
Today's Communication / Plan
Recommendations
Remains on levophed, can add vaso if ongoing hypotension noted
Hold off on vent weans: 70% 12+ now
Plan for return to OR today per CRC
Continue IV abx for now
Prognosis guarded
Assessment
-
64-year-old male with a past medical history of cardiomyopathy, hypertension, DM type II, history of chronic opioid use due to chronic arthritis now on buprenorphine, history of ERASMO, venous insufficiency and chronic back pain who presented with
shortness of breath, abdominal distention. Found to have severe colonic distention. Initially treated with neostigmine, attempted sigmoidoscopy without attempt. Underwent exploratory laparotomy 06/08/2025-developed shock requiring vasopressors and
remained on mechanical ventilation. We were consulted on 06/09/2025.
Acute hypoxemic respiratory failure s/p intubation 06/08
s/p laparotomy
pseudomonas PNA, w/ prolonged vent dependence s/p trach 06/25 (Shiley 8.0 XLT)
TME
Pseudoobstruction with megacolon, failed conservative management, s/p ex lap
Septic shock-peritonitis, intra-abdominal abscesses, concern for rectal perforation and LLL pneumonia
Acute on chronic heart failure with reduced ejection fraction, LVEF 35%, Stage I diastolic dysfunction
CONY
Prolonged QTc
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
Paroxysmal atrial flutter.
Hypertension
BPH
DM type II
chronic back pain
cardiomyopathy
venous insufficiency
history of ERASMO
severe osteoarthritis
chronic pain management due to arthritis
chronic buprenorphine use/narcotic use disorder
Pulmonary hypertension, estimated pulmonary artery systolic pressure 50-55
Morbid obesity
Plan
Sedation: none
Pain control: subutex, tylenol IV
Rass -3 to -4, goal 0
TME noted, EEG to evaluate for any nonconvulsive seizures
Also patient develops agitation and desaturation with weaning of sedation.
ABG reviewed not suggestive of worsening hypercapnia, neurology consult
07/01, patient noted to be less responsive on attempted weaning. He has since been weaned off all sedation including Seroquel.
Continues to be unresponsive except some response to sternal rub
Norepinephrine resuming 07/02, now on 10-12 mcgs/Can add vaso if needed
PAF history, not on OAC
- Patient on outpatient Xarelto
- Heparin infusion, was held due to bloody secretions 06/25, enoxaparin p.m. started 06/26
- History of cardioversion in January 2025
- Has been on amiodarone/LFTs normal as of 06/22
Primarily group II PH related to underlying congestive heart failure
- Continue to optimize intravascular volume, keep saturations above 90%, no indication for vasodilator therapy
- Additional dose of Lasix as needed
Patient has been diuresing well with intermittent Lasix.
Fluid balance +2.9 L over last 24 hrs
In view of hyponatremia, start D5W infusion
Prolonged QTc
- Improved after replacing potassium and magnesium
Initially due to abdominal distention requiring intubation, mechanical ventilation, subsequently LLL pneumonia
S/p bronchoscopy and BAL for thick copious secretions on 06/16 and 06/20, growing Pseudomonas. Secretions have since significantly improved
Chest x-ray with gradually improving consolidation
Status post tracheostomy 06/25. Shiley, 8.0 XLT
Body habitus, initially excessive secretions, severe pneumonia as well as intra-abdominal processes all are contributing to failure to liberate from mechanical ventilation
Patient has intermittently been tried on ASV, on 06/30, in view of desaturations, he was switched back to volume assist-control. Also patient tends to desaturate with lowered PEEP and does better with 10-12 of PEEP. With his body habitus his true
transpulmonary pressure is likely a lot less than the externally applied PEEP.
Stat chest x-ray was pursued on 07/01 unremarkable for any acute change
S/p ex lap, sigmoidectomy and end colostomy, iatrogenic spillage of stool, peritonitis, umbilical hernia repair, 06/08/2025
Small-volume stool output noted in the ostomy bag.
TPN infusing
Tube feeding stopped due to high residuals. Currently on suction, continues to have high residual.
06/18, CT chest abdomen pelvis pursued, fluid noted in the abdomen.
Purulent discharge from inferior margin of surgical site, bedside drainage on 06/19, sent for cultures. Growing Pseudomonas
06/20, IR guided peritoneal drains x 2 placed for intra-abdominal collections noted on imaging, Pseudomonas noted on peritoneal fluid culture
CT 06/29 concerning for large intraabdominal fluid collection as well as concern for rectal perforation with free air
06/29, s/p IR guided intraperitoneal drain placement, serous drainage noted
Colorectal surgery on case
07/02. Continues to be febrile, again developing hypotension, Levophed resumed--plan to return to OR 07/03
Patient had been on micafungin and Zosyn initially, subsequently switched to meropenem.
07/01, Pseudomonas is now carbapenem resistant, antibiotics were switched to cefepime, Flagyl and ciprofloxacin.
Also has been on IV vancomycin. 07/02, in view of encephalopathy, cefepime was switched to Zosyn.
BAL culture showing Pseudomonas
Mason catheter has been discontinued 06/25. Needed to be replaced 06/27
DM type II with Hyperglycemia
- Continue glycemic protocol as indicated
CONY. (07/02)
- Overall positive fluid balance by 3 L
- Ringer lactate 500 mL bolus, initiate D5W infusion in view of hypernatremia
- Start pressors to keep MAP above 65
DVT prophylaxis: -Lovenox
GI prophylaxis, pantoprazole
Prognosis is guarded
Full code
Family Discussions
Xiomara-Goals of care discussion 07/02. I called patient's and updated about patient's current condition. Considering lack of significant progress over the days and now worsening encephalopathy, developing hypotension, increasing pressor
requirement and CONY, overall prognosis is very poor. I brought up the option of pursuing more comfort focused care. Patient's was appreciative of the input and wants to talk to other care providers including infectious disease and surgery
service.
Diagnostic Data
Chest x-ray 06/08/2025: Reviewed, ET tube in place. Left lower lobe airspace disease. Cardiomegaly
CT abdomen pelvis 06/05/2025: The patient is significantly distended, and much of the abdominal and upper pelvic soft tissues extending anterior and to the left of the [id number], which limits evaluation, as it becomes difficult to confidently
follow the loops of bowel. There is distention of the rectum with air and stool, measuring 9.3 cm in diameter. There is marked distention of the sigmoid colon which extends into the right and central upper abdomen, with the sigmoid colon measuring
up to 18 cm in diameter. The sigmoid colon contains a moderate to large amount of stool, mainly inferiorly. There appears to be moderate distention of the rest of the visualized colon. Small bowel loops are present, and do not appear to be
significantly distended, similar appearance to prior examination. Of note, the cecum cannot be confidently identified on the present examination. No gross evidence of free intraperitoneal air. There is patchy parenchymal opacity within the
visualized lower lungs, most likely atelectasis. A component of pneumonia is also possible, although felt to be less likely. There is no significant pleural effusion and no significant pericardial effusion. Coronary artery calcifications are
present. Please correlate with symptoms of and risk factors for coronary artery disease, with further workup as clinically appropriate. Of note, the stomach is not distended.
ECHO 04/28/25: Left ventricle is moderately dilated with moderately reduced systolic function; left ventricular ejection fraction is 35% by modified Avery's method. Global hypokinesis. Mild concentric left ventricular hypertrophy. Moderate
concentric left ventricular hypertrophy. Stage I diastolic dysfunction suggestive of abnormal relaxation. Mildly dilated right ventricle with low normal RV function.
Mild mitral regurgitation. Sclerotic aortic valve with aortic annular calcification and peak and mean gradients of 23and 12 mmHg, respectively. Estimated BORA is 1.5 cm2., using an LVOT of 1.9 cm. No aortic regurgitation seen. Mild aortic stenosis.
Mild tricuspid regurgitation. Estimated pulmonary artery pressure of 50-55 mmHg, assuming a right atrial pressure of 3-8 mmHg. Compared to previous echo 12/26/24, the PA pressure has increased from 35 to 55 mmHg. LVEF may have improved slightly
from 25 to 35%. Previous study did use Definity.
-----
Critical care statement: A total of 38 minutes of critical care time was provided for this patient today. This includes management of unstable vital signs, evaluation of the patient at bedside, reviewing the patient's pertinent medical records
including ventilator settings, arterial blood gases, radiographs, microbiology, laboratory evaluations and discussion with primary team, critical care nursing, and respiratory therapy.
Subjective Dataa
Subjective Data
Date of Service:
Date of Service: July 03, 2025
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
Subjective:
Remains on pressors, trach to vent
Appears in pain
Objective Data
Data Reviewed
Vital Signs / I&O / Oxygen:
Vital Signs
Temp Pulse Resp BP Pulse Ox
99.6 F 122 24 115/74 96
07/03/25 04:25 07/03/25 06:00 07/03/25 06:00 07/03/25 06:00 07/03/25 06:00
Intake and Output
07/02/25 07/03/25 07/04/25
06:59 06:59 06:59
Intake Total 4932.15 / 5023.15 7917.5 / 7917.5
Output Total 1704 / 1704 2065 / 2065
Balance 3228.15 / 3319.15 5851.5 / 5851.5
SaO2 [CPAP/PSV] 89
SaO2 [ASV] 75
SaO2 [A/C] 98
SaO2 96
Nasal Cannula flow liters per 3
minute
Physical Exam
General: Comfortable (Currently on mechanical ventilation) and Other (Large neck)
HEENT: Normocephalic, Anicteric and Tracheotomy
Cardiovascular: S1-S2, Regular Rhythm (Tachycardic), Murmur (1-2/6 systolic murmur) and Peripheral Edema (Only trace residual puffiness)
Respiratory: Wheeze (n), Crackles (n), Rhonchi (n), Non-Labored Respirations and Other (Tracheostomy)
GI: Soft, Distended (Morbidly obese), Non Tender and Other (Colostomy with trace amount of stool. 3 additional drains placed by IR service, right-sided purulent drainage noted, rest appears serous.)
Neurology: Awake, Lethargic and Non Verbal
Skin: Cyanosis (n), Jaundice (n) and Rash (n)
Labs/Micro/Reports
Lab Data
07/03/25 04:39
07/03/25 04:39
Laboratory Results
07/02/25
18:47
PT 16.1 H
INR 1.24
APTT 41.3 H
Microbiology
06/27/25 10:17 Blood/Venous Blood Culture - Final
No Growth - Final Report
06/27/25 09:56 Blood/Venous Blood Culture - Final
No Growth - Final Report
06/29/25 18:25 Abdomen Wound Culture - Preliminary
No growth
06/29/25 18:25 Abdomen Gram Stain - Preliminary
06/28/25 15:42 Sputum Respiratory Culture - Final
Pseudomonas aeruginosa
Pseudomonas aeruginosa#2
06/28/25 15:42 Sputum Gram Stain - Final
06/29/25 18:25 Abdomen Anaerobic Culture - Preliminary
Culture pending. Anaerobic cultures are examined after 3
days incubation. Additional information to follow.
--- NOTE | 2025-07-03 07:43 | PN.DE.MGMTRT ---
Insulin Management
- -
07/03/2025: Diabetes Management Follow up
Patient admitted 06/05 with c/o difficulty breathing. Diabetes management consult 06/15. PMH 5 weeks of constipation with abdominal distention, HTN, A-Fib, CHF Prior to admission was taking Lantus 24 units daily with NovoLog 20 units AC and Farxiga 5
mg daily. A1C on admission 7.1%, Cr 1.5, eGFR 51.69 today.
Patient remains intubated and sedated. Information obtained from chart and patient nurse and pharmacist.
S/P OR 06/08 for lysis of adhesions, sigmoidectomy, with end descending colostomy and s/p tracheostomy 06/25.
Receiving TPN. Was started on D5W yesterday, contributing to Hyperglycemia of >200, Critical care glycemic protocol was started last night @ 2100
Glucose range 120 to 231, Patient has required 7 to 18 units of insulin per hour. Plan for OR--> Ex lap today.
Will continue critical care glycemic protocol.
Discussed with nurse. Will cont to follow.
Diabetes History
- -
Type of Diabetes: 2 requiring insulin
Pre-Admission Diabetes Regimen
07/03/25
04:39
Creatinine 1.5 H
Lab Results
Hemoglobin A1c 7.8 % (4.0-5.6) H 06/22/25 03:20
Insulin Pump Settings
IP Diabetes Regimen
07/02/25 07/02/25 07/02/25
08:06 11:51 17:02
Glucose
POC Glucose 156 H 248 H 276 H
07/02/25 07/02/25 07/02/25
20:51 22:13 23:04
Glucose
POC Glucose 233 H 235 H 239 H
07/02/25 07/03/25 07/03/25
23:17 00:09 01:10
Glucose
POC Glucose 245 H 263 H 231 H
0807/03/25 07/03/25
02:00 03:01 04:05
Glucose
POC Glucose 192 H 149 H 143 H
07/03/25 07/03/25 07/03/25
04:39 04:56 06:20
Glucose 121 H
POC Glucose 127 H 120 H
Patient Education
[2025-07-03 08:15] LABS: Glucose - Point of Care 139 mg/dl (70-99)
--- NOTE | 2025-07-03 08:15 | PHA.VAN.FU ---
Vancomycin Assessment / Plan
- Assessment
Renal Function: SCR Increasing (slight increase in SCR; BUN increasing)
WBC's are: Trending Up
In the past 24 hrs, patient has been: Febrile
Concomitant Antimicrobials: piperacillin/tazobactam
- Assessment - Therapeutic Drug Monitoring
Random Level: 17.6 - drawn ~16.5H after previous dose of 1250mg
- Dosing Plan
Dosing by Level: Re-dose today (Vanc 1250mg)
- Monitoring Plan
Random Level: 07/04 0600
- Follow Up
Pharmacy will continue to follow.
Vancomycin Follow UP
- -
Patient Age: 64
Patient Sex: Male
Vancomycin Day #: 6
Indication: Gi / Intra-Abdominal
Requesting Provider: Dr. Quispe
Pertinent Antimicrobial Allergies:
NKDA
Height / Weight:
Height 6 ft 3 in
Actual Weight 136.8 kg
Pertinent Past Medical History: BMI ~ 40
- Vital Signs / Lab Results
Temp Pulse Resp BP Pulse Ox
99.6 F 122 24 115/74 97
07/03/25 04:25 07/03/25 06:00 07/03/25 06:00 07/03/25 06:00 07/03/25 08:00
Lab Results - Hematology
07/01/25 07/02/25 07/03/25
04:54 03:43 04:39
WBC 21.3 H 14.3 H 18.1 H
Lab Results - Chemistry
07/01/25 07/01/25 07/02/25
04:54 05:51 03:43
BUN Cancelled 48 H 57 H
Creatinine Cancelled 0.9 1.4 H
Estimated Creat Clear Cancelled 124 80
Albumin
07/03/25
04:39
BUN 66 H
Creatinine 1.5 H
Estimated Creat Clear 74
Albumin 2.3 L
Microbiology Results
06/27/25 10:17 Blood Culture - Final
Blood/Venous No Growth - Final Report
06/27/25 09:56 Blood Culture - Final
Blood/Venous No Growth - Final Report
06/29/25 18:25 Wound Culture - Preliminary
Abdomen No growth
Gram Stain - Preliminary
06/28/25 15:42 Respiratory Culture - Final
Sputum Pseudomonas aeruginosa
Pseudomonas aeruginosa#2
Gram Stain - Final
06/29/25 18:25 Anaerobic Culture - Preliminary
Abdomen Culture pending. Anaerobic cultures are examined after 3
days incubation. Additional information to follow.
Therapeutic Drug Monitoring
Vancomycin Peak 28.0 ug/ml (18-26) H 06/30/25 21:13
Vancomycin Trough 16.9 ug/ml (5-20) 07/01/25 04:54
Random Vancomycin 17.6 ug/ml 07/03/25 04:39
[2025-07-03] MEDS: FLOMAX 0.4 MG TUBE (08:25)
[2025-07-03] MEDS: NSS (PRESERVATIVE FREE) 10 ML IV (08:27)
[2025-07-03] MEDS: PROTONIX IV 40 MG IV (08:27)
[2025-07-03] MEDS: DESENEX/MITRAZOL/ZEASORB 1 APPLIC TOPICAL ×2 (08:29→21:05)
[2025-07-03] MEDS: SANTYL OINTMENT 1 APPLIC TOPICAL (08:29)
[2025-07-03] MEDS: HYDROPHOR 1 APPLIC TOPICAL (08:30)
--- NOTE | 2025-07-03 08:45 | WOUNDNOTE ---
WO RN note: Confirmed with Corine Mcduffie, colorectal PA that we don't need to change patient's vac or ostomy appliance today d/t patient having surgery today. Tima Shaw update.
--- NOTE | 2025-07-03 09:17 | W.PN.ID1 ---
Addendum entered and electronically signed by Katia Quispe MD 07/03/25 09:50:
Correction: DC metronidazole, as pt now off cefepime, on Zosyn.
Original Note:
Date of Service
Date of Service: July 03, 2025
Today's Communication
Please send intra-op cultures.
Add empiric Micafungin to abx regimen.
Assessment / Plan
# Rectal perforation (06/29) with large left intra-abd abscess
# Fever
# Leukocytosis
# Septic shock
# MDR- carbapenem resistant Pseudomonas
- 06/29 s/p IR perc drain placement
abscess cx's neg to date
- declined comfort measures and wishes to proceed with OR even though high surgical risk.
- To OR today per colorectal. Please obtain intra-op cultures.
- Pseudomonas (from sputum) carbapenem-resistant - suspect in abdomen also.
- Has been on prolonged IV abx's since
- Continue current regimen cipro 400mg IV q12 (d3), Zosyn (d3), metronidazole 500mg IV q8h (d3) and Vancomycin (d5)
- Add empiric Micafungin
- Prognosis extremely guarded.
# Colonic inertia with megacolon; status post ex lap, decompression, colostomy, stool leakage into the abdomen requiring washout 06/08/2025
# Recent purulent peritonitis
# Recent PNA with Pseudomonas
# VDRF s/p trach 06/25/25
# On TPN
- 06/08/25 Exploratory laparotomy, lysis of adhesions, sigmoidectomy, decompression of right colon, abdominal washout, creation of end descending colostomy, umbilical hernia repair
- No OR cx
- Blood cultures neg
- 06/15 s/p bronch with airway clearance; cx Pseudomonas
- 06/19 Colorectal opened midline abd distal incision. cx cx Pseudomonas, mixed anaerobes
- 8/16 aspiration/drainage of right abdominal peritoneal collections x 2. 1 of 2 cx : Pseudomonas
-06/28 Sputum CR -Pseudomonas
- 06/29 CXR: improving opacities
- s/p 10d empiric micafungin
- s/p Vancomycin IV x 6d previously
- s/p Zosyn(8d) -> meropenem (12d) -> cipro/zosyn (d3)
# Conditions [employer]
HFrEF
HTN
DM
Afib
HLD
Colonic Inertia / Dysmotility
Chronic opioid dependence
Advanced bilateral lower extremity venous insufficiency
Morbid obesity (BMI~43)
Chief Complaint
-: Fever, Leukocytosis and Other (Purulent peritonitis)
Subjective / Review of Systems
at bedside. Pt more alert this am. Pt going to OR.
Vital Signs / Physical Exam
Vital Signs
Vital Signs
Temp Pulse Resp BP Pulse Ox
99.5 F 122 24 115/74 97
07/03/25 07:45 07/03/25 06:00 07/03/25 06:00 07/03/25 06:00 07/03/25 08:00
Selected Entries
07/02/25
16:03
Temp 102.2 F H
Physical Exam
Constitutional: Acutely Ill
Eyes: Sclera Anicteric
Cardiovascular: S1/S2 (tachycardic)
Pulmonary: Rhonchi and Other (+trach, on vent)
Gastrointestinal: Soft, Distended, Decreased Bowel Sounds and Other (RUQ 1 of 2 drains with thick cream-colored output. Left drain: clear fluid. )
Genito-Urinary: Negative CVA Tenderness
Extremities: Edema and Venous Insufficiency
Lines: PICC
Objective Data
Lab Data
Lab Results
07/03/25 04:39
07/03/25 04:39
PT 16.1 Sec (11.4-14.6) H 07/02/25 18:47
INR 1.24 07/02/25 18:47
APTT 41.3 Sec (23.4-35.0) H 07/02/25 18:47
Estimated Creat Clear 74 ml/min 07/03/25 04:39
Lactic Acid 0.9 mmol/L (0.7-2.0) 06/09/25 00:01
Total Bilirubin 0.6 mg/dl (0.2-1.3) 07/03/25 04:39
AST 25 U/L (17-59) 07/03/25 04:39
ALT 16 U/L (0-50) 07/03/25 04:39
Alkaline Phosphatase 97 U/L (38-126) 07/03/25 04:39
C-Reactive Protein > 270.00 mg/L (0.0-10.00) H 06/11/25 03:22
Most recent labs reviewed.
Micro Results:
06/27/25 10:17 Blood Culture - Final
Blood/Venous No Growth - Final Report
07/02/25 10:09 Blood Culture - Pending
Blood/Venous
07/02/25 10:03 Blood Culture - Pending
Blood/Venous
06/27/25 09:56 Blood Culture - Final
Blood/Venous No Growth - Final Report
06/29/25 18:25 Wound Culture - Preliminary
Abdomen No growth
Gram Stain - Preliminary
06/28/25 15:42 Respiratory Culture - Final
Sputum Pseudomonas aeruginosa
Pseudomonas aeruginosa#2
Gram Stain - Final
06/29/25 18:25 Anaerobic Culture - Preliminary
Abdomen Culture pending. Anaerobic cultures are examined after 3
days incubation. Additional information to follow.
06/15/25 10:08 Fungal Culture - Preliminary
Bronch Left Lower Lobe Evelyn albicans
06/20/25 11:01 Fungal Culture - Preliminary
Bronch Right Lower Lobe Culture in progress.
Positive cultures are reported as soon as detected.
Final report to follow in four to five weeks.
06/20/25 16:38 Body Fluid Culture - Final
Peritoneal Fluid Gram Stain - Final
06/20/25 16:34 Body Fluid Culture - Final
Peritoneal Fluid Pseudomonas aeruginosa
Gram Stain - Final
06/19/25 09:59 Wound Culture - Final
Abdomen Pseudomonas aeruginosa
Gram Stain - Final
06/19/25 09:59 Anaerobic Culture - Final
Abdomen
06/20/25 11:01 Respiratory Culture - Final
Bronch Right Lower Lobe Pseudomonas aeruginosa
Gram Stain - Final
06/20/25 11:01 Acid Fast Bacilli Smear - Preliminary
Bronch Right Lower Lobe Acid Fast Bacilli Culture - Preliminary
06/17/25 13:11 MRSA Screen - Final
Nose No Methicillin Resistant Staphylococcus aureus isolated.
06/13/25 12:07 Blood Culture - Final
Blood/Venous No Growth - Final Report
06/13/25 12:07 Blood Culture - Final
Blood/Venous No Growth - Final Report
06/15/25 10:08 Acid Fast Bacilli Smear - Preliminary
Bronch Left Lower Lobe Acid Fast Bacilli Culture - Preliminary
06/15/25 10:08 Respiratory Culture - Final
Bronch Left Lower Lobe Pseudomonas aeruginosa
Gram Stain - Final
06/14/25 11:22 Respiratory Culture - Final
Tracheal Aspirate Pseudomonas aeruginosa
Gram Stain - Final
06/11/25 09:27 Blood Culture - Final
Blood/Venous No Growth - Final Report
06/11/25 09:59 Blood Culture - Final
Blood/Venous No Growth - Final Report
06/06/25 07:57 MRSA Screen - Final
Nose No Methicillin Resistant Staphylococcus aureus isolated.
Imaging:
06/24/25 CXR: Slightly increased basilar predominant airspace opacities, worse on the left. Findings may be related to pneumonia or worsening atelectasis.
06/18/25 CT c/a/p: Suspected moderate volume mildly complex presumed free fluid in the abdomen, overall increased in volume in comparison to recent prior study, most prominently located in the right subhepatic region, right subdiaphragmatic region
and likely left abdomen/pelvis.
06/16/25 CXR: There is moderate airspace disease in right lower lung field concerning for pneumonia. There is obscuration of the left hemidiaphragm suggesting left lower lobe pneumonia
06/15/25 CXR: No pneumothorax status post bronchoscopy. Progressive homogeneous increased retrocardiac opacity. Suspect mild left perihilar and right infrahilar opacity which could represent atelectasis or pneumonia.
06/13/25 CT a/p: Very limited study. Small volume fluid in the abdomen, particularly in the left abdomen mildly complex. As this fluid is incompletely included, it cannot be determined whether this totally represents likely free fluid or combination
of free fluid and abnormal focal fluid collection. Additional small abnormal focal fluid collections cannot be excluded on the basis of this markedly limited study. Apparent recent prior partial sigmoidectomy with large volume stool seen in the
residual sigmoid colon and rectum.
06/10 CXR: Stable CHF and bibasilar atelectasis and/or pneumonia.
06/08/25 CXR: Diffuse marked colonic dilation. Measurement of caliber of the upper colon is slightly greater then obstruction series of June 07, 2025. Multiple air-fluid levels compatible with stasis. Moderate amount of stool within the inferior
aspect of the right colon as well as within the rectum. No gross evidence for free intraperitoneal air.
06/05/25 CT a/p: Significant gaseous distention of a large portion of the colon. This contributes to limitation of this examination, as the patient cannot be fully included on the [id number] of the CT scanner. If there can be some distal colonic
decompression, repeat scan could be considered, when hopefully the patient could be entirely included on the [id number] of the exam. No gross evidence for free intraperitoneal air. Patchy parenchymal opacity within the visualized lower lung, most
likely atelectasis. Pneumonia is a differential consideration, felt to be less likely based on morphologic appearance.
[2025-07-03] MEDS: MYCAMINE 105 MG IV (10:10)
[2025-07-03 10:13] LABS: Glucose - Point of Care 122 mg/dl (70-99)
[2025-07-03] MEDS: VANCOCIN 275 MG IV (10:17)
--- NOTE | 2025-07-03 10:59 | PTCARENOTE ---
Pt received in bed @ 0700. Nonverbal with trach to vent. Lethargic. Opes eyes spontaneously. Left arm more active than other extremities. Able to squeeze hands on commands with both arms. SaO2 98%. #8 XL Shiley to AC (26/500/70%/12+). Positional
leak present, drain sponge changed to foam with leak improvement. Unable to obtain sputum with suction, but pt with frequent coughs that produce thick large segovia sputum around trach site. NGT to continuous 80mmHg suction. Brown output. Right RL PICC
with TPN, Levophed, D5W, Insulin infusing. 3x CHRISTINE drains on left side abdomen and percutaneous drain on right side. Wound vac to lower abdomen, upper abdomen with fred intact. Pt for sent to OR for abdominal washout; flex sig; gastrostomy.
[2025-07-03 11:27] LABS: B.E. - POC 0.5 mmol/L; Glucose - POC 125 mg/dl (70-99); HCO3 - POC 29 mmol/L (21-28); Hematocrit - POC 31 % PCV (42-52); Hemodilution- POC Yes; Hemoglobin Calculated - POC 10.5; Ionized Calcium - POC 1.24 mmol/L (1.15-1.33); Lactate - POC 0.96 mmol/L (0.36-0.75); O2 Saturation %Calculated-POC 81.7 % (94-98); PCO2 - POC 71 mmHg (35-48); PO2 - POC 57 mmHg (83-108); Potassium - POC 3.0 mmol/L (3.5-5.1); Sodium - POC 154 mmol/L (136-145); Specimen Type - POC Arterial; pH - POC 7.23 (7.35-7.45)
[2025-07-03] MEDS: OFIRMEV IV (13:35)
--- NOTE | 2025-07-03 13:47 | WOUNDNOTE ---
WO RN note: OR intraoperative report states patient's vac was discontinued. Notified [employer] via [employer] 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 Tima texted RN Jasiel requesting the
discontinued [facility] vac pump be placed in the soiled utility room for picking table worker.
--- NOTE | 2025-07-03 14:20 | CM ---
Addendum entered by Adan Brown 07/03/25 14:23:
Updated report to Shobha BRAVO at [facility].
Original Note:
Levophed, vent, trach, fevers, IV/AB, renal function deteriorating, metabolic encephalopathy guarded prognosis. For OR today: Laparotomy with abdominal washout, possible bowel resection, and possible feeding tube. High Risk. Discharge POC: TBD
based on medical progression.
--- NOTE | 2025-07-03 14:34 | W.PN.HOSP.TC ---
Today's Communication/Plan
-
Assessment / Plan
Assessment / Plan
Patient brought to the OR for abdominal washout, unable to perform physical exam this morning, will attempt to evaluate this afternoon postoperatively
Impression:
Mr. Knapp is a 64-year-old male with medical history of HFpEF, A-fib/flutter, IDDM, obesity, chronic pain with subsequent opioid dependence, and chronic constipation with colonic dysmotility who presented with shortness of breath, abdominal
bloating and discomfort, constipation. His last bowel movement was 2 weeks prior to arrival. He is having increasing difficulty breathing due to worsening abdominal distention. He has had multiple similar episodes since September 2024 and has
previously required decompression. He has been treated with enemas and neostigmine previously. Abdominal imaging showed significant colonic distention with air-filled loops of bowel. He also had patchy parenchymal opacities within the mid to
lower lungs. He was mildly hypoxic and has been started on antibiotics. He has remained afebrile with a mild leukocytosis of just over 12,000. He has been admitted for further evaluation and management.
Seen by GI, failed neostigmine, enema, status post nonsuccessful decompressive flexible sigmoidoscopy.
Surgery team consulted.
s/p Exploratory laparotomy, lysis of adhesions, sigmoidectomy, decompression of right colon, abdominal washout, creation of end descending colostomy, umbilical hernia repair on 06/08
admitted to ICU postoperatively, intubated.
Patient had fever,Infectious disease consult, started on zosyn.
Patient was still running fever, added micafungin.
CT chest: New right lower lobe consolidation with air bronchograms, atelectasis versus pneumonia, Possible small bilateral pleural effusions.
CT abdomen/pelvis shows: Small volume fluid in the abdomen, particularly in the left abdomen mildly complex. As this fluid is incompletely included, it cannot be determined whether this totally represents likely free fluid or combination of free
fluid and abnormal focal fluid collection. Additional small abnormal focal fluid collections cannot be excluded on the basis of this markedly limited study
S/p trach
Assessment/Plan:
Colonic dysmotility/ileus:
- Abdomen remained significantly distended despite multiple medical enemas and subsequent bowel movements
- Upgraded to IMU 06/07, pushed 4 mg neostigmine around 1:30 PM, no significant peristaltic response
- Ultimately required surgical intervention, brought to the OR 06/08 for ex lap with lysis of adhesions and sigmoidectomy with end descending colostomy, decompression of right colon, abdominal washout and umbilical hernia repair
- ICU postoperatively, intubated
- Colorectal surgery following, colostomy with brown stool output
- Lower fred removed from surgical incision with mucopurulent output, wound VAC now in place
- IR placed 2 abdominal drains 06/20 with serous output, a third drain was placed 06/29 for new collection, cultures pending
- Rectum was distended with stool and was manually disimpacted 07/01
- Continue TPN, holding tube feeds
- Planning abdominal washout in the OR today 07/03
Metabolic encephalopathy:
- Unclear etiology but likely secondary to critical illness
- Currently responsive only to noxious stimuli, off of sedation
- Will pursue EEG
- CT brain 07/01 shows no acute intracranial abnormality, possible mastoiditis
- No findings on ABG to explain mental status
- Neurology following, EEG showed generalized slowing indicative of toxic/metabolic encephalopathy, no focal epileptiform activity
Hypernatremia:
- Started D5 water
Septic shock, requiring pressors:
- Status post sigmoidectomy with multiple intra-abdominal fluid collections and pulmonary infection
- Respiratory culture from 06/28 growing Carbapenem resistant Pseudomonas
- Antibiotics transitioned to ciprofloxacin for 100 mg IV every 8 hours, cefepime 2 g IV every 8 hours
- Continuing vancomycin IV
- Discontinued meropenem
- Restarted vasopressors
- Seroquel discontinued 06/27
- Completed 10 days of empiric micafungin
- Repeat CT abdomen pelvis 06/29 showed a new large complex fluid collection for which an IR drain was placed
- Planning OR today for abdominal washout
Acute hypoxic respiratory failure (currently intubated in the ICU postoperatively)
- Continue mechanical ventilation, ETT replaced 06/19 by restoration technician, trach placed 06/25
- Underwent bronchoscopy with BAL left lower lobe 06/15 by restoration technician, cultures growing Pseudomonas, repeat bronchoscopy with BAL 06/20 with aspiration of copious secretions
- Completed course of micafungin, continuing IV antibiotics as outlined above
- Hypertonic nebulized saline 3 times a day with albuterol, aggressive chest PT
- Additional Lasix pushes as needed
paroxismal A-fib/flutter:
- Currently rate controlled, holding home metoprolol, continue home amiodarone 200 mg at night via OGT
- Holding home Xarelto, have transitioned to therapeutic Lovenox which is on hold currently for OR
IDDM:
- Insulin drip.
HFrEF:
- Acute on chronic chronic
- Holding home metoprolol succinate 100 mg
- Lasix pushes as needed, holding spironolactone, monitor daily weights
- No need for afterload reduction due to hypotension
CODE STATUS: Full code
DVT prophylaxis: Holding Lovenox preoperatively
Diet: TPN
Disposition: Continue management in the ICU.
Total time spent on today's encounter was 54 minutes which included time spent in counseling the patient/family regarding diagnosis and treatment plan as listed above, goals of care, and symptom management. Case was discussed with nursing staff,
specialists, and care coordinators/case management. All labs and imaging personally reviewed by me. Remainder the time spent in detailed review of previous records, lab data, imaging, and other medical provider documentation.
Anticipated Discharge: > 48 hours
Subjective/Interval History
-
Date of Service: July 03, 2025
Patient was brought to the OR this morning for abdominal washout.
Objective Data
-
Labs:
Laboratory Results
07/03/25 07/03/25
04:39 10:04
WBC 18.1 H Pending
Hgb 8.5 L Pending
Hct 29.3 L Pending
Plt Count 210 Pending
Sodium 152 H Pending
Potassium 3.4 L Pending
Chloride 113 H Pending
Carbon Dioxide 35 H Pending
BUN 66 H Pending
Creatinine 1.5 H Pending
Glucose 121 H Pending
Calcium 8.6 Pending
Total Bilirubin 0.6 Pending
AST 25 Pending
ALT 16 Pending
Alkaline Phosphatase 97 Pending
Vital Signs:
Vital Signs
Temp Pulse Resp BP Pulse Ox
99.5 F 122 24 115/74 98
07/03/25 07:45 07/03/25 06:00 07/03/25 06:00 07/03/25 06:00 07/03/25 09:28
I&O
07/02/25 07/03/25 07/04/25
06:59 06:59 06:59
Intake Total 4932.15 / 5023.15 7917.5 / 8191.5 920.0 / 920.0
Output Total 1704 / 1704 2066 / 2066 360 / 360
Balance 3228.15 / 3319.15 5851.5 / 6125.5 560.0 / 560.0
Review of Systems
-
Unable to obtain full review of systems at this time due to: Patient Intubation
Physical Exam
-
General: Other (Patient brought to the OR, will attempt to perform physical exam when he returns)
--- NOTE | 2025-07-03 15:05 | W.IMMPOSTOP ---
Surgical Immed Post Op Note
-
Primary Surgeon: Samir Bocanegra MD
Sheet Metal Operator: Cherelle Tarango PA-C
Pre-op Diagnosis: Abdominopelvic asbcess/rectal stump leak
Post-op Diagnosis: No evidence of an abscess/leak
Procedure Performed: Laparotomy, fecal disimpaction, flexible sigmoidoscopy, small bowel resection, abdominal washout and gastrostomy tube
Anesthesia Type: GET
Specimen / Cultures: None
Estimated Blood Loss: 50cc
Complications: None
Operative Findings: Multiple dense adhesions
No evidence of a pelvic abscess/rectal stump leak
Small bowel deserosalization x 2 (resected with primary anastomosis)
All previous drains (4) left intact
Patient's updated.
[2025-07-03] MEDS: ZOSYN IV (15:34)
[2025-07-03 16:04] LABS: Glucose - Point of Care 244 mg/dl (70-99)
[2025-07-03 16:05] LABS: Hematocrit 30.6 % (39.0-52.0); Hemoglobin 9.1 g/dL (13.0-18.0); Mean Corp Hgb Conc. 29.7 g/dL (33.0-37.0); Mean Corpuscular Volume 87.2 fL (80.0-94.0); Nucleated Red Blood Cells % 0 % (-); Platelet Count 196 10^3/uL (130-400); Red Cell Dist. Width 15.8 % (11.5-14.5)
[2025-07-03] MEDS: LEVOPHED 250 MG IV ×2 (16:09→23:22)
[2025-07-03 16:26] LABS: ALT (SGPT) 14 U/L (0-50); AST (SGOT) 21 U/L (17-59); Albumin 2.3 g/dl (3.5-5.0); Alkaline Phosphatase 91 U/L (38-126); Blood Urea Nitrogen 61 mg/dl (9-20); Calcium 8.2 mg/dl (8.4-10.2); Carbon Dioxide 31 mmol/L (22-30); Chloride 111 mmol/L (98-107); Estimated Creatinine Clearance 70 ml/min; Glucose 279 mg/dl (70-99); Potassium 3.9 mmol/L (3.5-5.1); Sodium 147 mmol/L (135-145); Total Protein 5.9 g/dl (6.3-8.2); eGFR 47.82
--- NOTE | 2025-07-03 16:48 | PTCARENOTE ---
Pt returned from OR s/p laparotomy; abdominal washout, flex sig, gastrostomy. Pt with new PEG tube, 3cm to bumper, in place at left abdomen to gravity drainage per order. Pt drowsy, lethargic. Opens eyes briefly to voice. Weak moving up extremities.
Sinus tach on bond broker. Pt received on Levophed gtt @ 8 mcg/min with goal of MAP > 65. #8 Shiley XLT to AC (26/500/100%); SaO2 93%. Unable to produce sputum with suction. CHRISTINE drains x3 to right abdomen and percutaneous drain remains on left.
Wound vac D/C'd. NGT removed in OR. Insulin gtt infusion documentation restarted. Insulin gtt, TPN, Levophed gtt's infusing through right TL PICC.
[2025-07-03] MEDS: D5W IV (16:56)
[2025-07-03 17:29] LABS: Glucose - Point of Care 251 mg/dl (70-99)
[2025-07-03 18:10] LABS: Glucose - Point of Care 218 mg/dl (70-99)
[2025-07-03 19:19] LABS: Glucose - Point of Care 228 mg/dl (70-99)
[2025-07-03 20:30] LABS: Glucose - Point of Care 186 mg/dl (70-99)
--- NOTE | 2025-07-03 20:45 | PTCARENOTE ---
Assumed care of pt at 1900. Pt minimally responsive--will occasionally grimace or have eye movement with tactile or painful stimuli, trace movement noted to extremities. Pt not on any sedation. Received pt on insulin drip, Levophed, and TPN
infusions. See med titration flowsheet for Levophed titrations and critical care glycemic protocol flowsheet. Pt on vent, AC 26/500/100/12 at start of shift, FiO2 weaned down to 90% by RT towards beginning of shift. Assessment as documented in
nursing shift assessment flowsheet.
[2025-07-03 21:14] LABS: Glucose - Point of Care 155 mg/dl (70-99)
[2025-07-03] MEDS: Parenteral Nutrition, Central 2300 IV (21:43)
[2025-07-03 22:16] LABS: Glucose - Point of Care 142 mg/dl (70-99)
[2025-07-03] MEDS: PACERONE 200 MG TUBE (23:06)
[2025-07-03] MEDS: LIPITOR 40 MG TUBE (23:07)
[2025-07-03 23:21] LABS: Glucose - Point of Care 136 mg/dl (70-99)
[2025-07-04 00:33] LABS: Glucose - Point of Care 130 mg/dl (70-99)
[2025-07-04 01:24] LABS: Glucose - Point of Care 123 mg/dl (70-99)
--- NOTE | 2025-07-04 01:29 | PTCARENOTE ---
Assessment unchanged. Pt remains on same drips. Levophed has been titrated up throughout the shift, refer to med titration flowsheet. FiO2 weaned to 80% by RT. Unrestrained pt's left wrist as he has not been moving or responsive beyond slight eye
movement and grimacing.
[2025-07-04] MEDS: NOVOLIN R INSULIN INFUSION 100 IV ×2 (02:15→15:41)
[2025-07-04] MEDS: LEVOPHED 250 MG IV (02:23)
[2025-07-04 03:12] LABS: Glucose - Point of Care 132 mg/dl (70-99)
[2025-07-04 03:28] VITALS: BMI 38.1
[2025-07-04 05:11] LABS: Hematocrit 32.5 % (39.0-52.0); Hemoglobin 9.3 g/dL (13.0-18.0); Mean Corp Hgb Conc. 28.6 g/dL (33.0-37.0); Mean Corpuscular Volume 90.3 fL (80.0-94.0); Platelet Count 276 10^3/uL (130-400); Red Cell Dist. Width 16.0 % (11.5-14.5)
[2025-07-04 05:24] LABS: Glucose - Point of Care 136 mg/dl (70-99)
[2025-07-04 05:30] LABS: Blood Urea Nitrogen 67 mg/dl (9-20); Calcium 8.2 mg/dl (8.4-10.2); Carbon Dioxide 32 mmol/L (22-30); Chloride 113 mmol/L (98-107); Estimated Creatinine Clearance 66 ml/min; Glucose 143 mg/dl (70-99); Magnesium 2.3 mg/dl (1.6-2.3); Potassium 4.1 mmol/L (3.5-5.1); Sodium 148 mmol/L (135-145); Triglycerides 136 mg/dl (10-149); eGFR 44.46
[2025-07-04] MEDS: OFIRMEV 100 IV ×4 (05:42→23:56)
[2025-07-04] MEDS: PITRESSIN 100 IV (05:43)
[2025-07-04] MEDS: ZOSYN 100 IV ×4 (06:02→23:56)
--- NOTE | 2025-07-04 07:02 | W.PN.INTV ---
Today's Communication / Plan
Recommendations
Postop, remains on 2 pressors
Vent requirements also remain too high for SBT
Continue abx for now
Prognosis guarded
Assessment
-
64-year-old male with a past medical history of cardiomyopathy, hypertension, DM type II, history of chronic opioid use due to chronic arthritis now on buprenorphine, history of ERASMO, venous insufficiency and chronic back pain who presented with
shortness of breath, abdominal distention. Found to have severe colonic distention. Initially treated with neostigmine, attempted sigmoidoscopy without attempt. Underwent exploratory laparotomy 06/08/2025-developed shock requiring vasopressors and
remained on mechanical ventilation. We were consulted on 06/09/2025.
Acute hypoxemic respiratory failure s/p intubation 06/08
s/p laparotomy
s/p Laparotomy, fecal disimpaction, flexible sigmoidoscopy, small bowel resection, abdominal washout and gastrostomy tube 07/03/25
pseudomonas PNA, w/ prolonged vent dependence s/p trach 06/25 (Shiley 8.0 XLT)
TME
Pseudoobstruction with megacolon, failed conservative management, s/p ex lap
Septic shock-peritonitis, intra-abdominal abscesses, concern for rectal perforation and LLL pneumonia
Acute on chronic heart failure with reduced ejection fraction, LVEF 35%, Stage I diastolic dysfunction
CONY
Prolonged QTc
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
Paroxysmal atrial flutter.
Hypertension
BPH
DM type II
chronic back pain
cardiomyopathy
venous insufficiency
history of ERASMO
severe osteoarthritis
chronic pain management due to arthritis
chronic buprenorphine use/narcotic use disorder
Pulmonary hypertension, estimated pulmonary artery systolic pressure 50-55
Morbid obesity
Plan
Sedation: none
Pain control: subutex, tylenol IV
Rass -3 to -4, goal 0
TME noted, EEG to evaluate for any nonconvulsive seizures
Also patient develops agitation and desaturation with weaning of sedation.
ABG reviewed not suggestive of worsening hypercapnia, neurology consult
07/01, patient noted to be less responsive on attempted weaning. He has since been weaned off all sedation including Seroquel.
Continues to be unresponsive except some response to sternal rub
Norepinephrine resuming 07/02/vaso added-2 pressors now
PAF history, not on OAC
- Patient on outpatient Xarelto
- Heparin infusion, was held due to bloody secretions 06/25, enoxaparin p.m. started 06/26
- History of cardioversion in January 2025
- Has been on amiodarone/LFTs normal as of 06/22
Primarily group II PH related to underlying congestive heart failure
- Continue to optimize intravascular volume, keep saturations above 90%, no indication for vasodilator therapy
Patient has been diuresing well with intermittent Lasix/hold now due to hypotension
Fluid balance +2.9 L over last 24 hrs
In view of hyponatremia, start D5W infusion
Prolonged QTc - Improved after replacing potassium and magnesium
Initially due to abdominal distention requiring intubation, mechanical ventilation, subsequently LLL pneumonia
S/p bronchoscopy and BAL for thick copious secretions on 06/16 and 06/20, growing Pseudomonas. Secretions have since significantly improved
Chest x-ray with gradually improving consolidation
Status post tracheostomy 06/25. Shiley, 8.0 XLT
Body habitus, initially excessive secretions, severe pneumonia as well as intra-abdominal processes all are contributing to failure to liberate from mechanical ventilation
Patient has intermittently been tried on ASV, on 06/30, in view of desaturations, he was switched back to volume assist-control. Also patient tends to desaturate with lowered PEEP and does better with 10-12 of PEEP. With his body habitus his true
transpulmonary pressure is likely a lot less than the externally applied PEEP.
Stat chest x-ray was pursued on 07/01 unremarkable for any acute change
Remains on high vent requirements: 80% 12+ and not a candidate for SBT
S/p ex lap, sigmoidectomy and end colostomy, iatrogenic spillage of stool, peritonitis, umbilical hernia repair, 06/08/2025
Small-volume stool output noted in the ostomy bag.
TPN infusing
Tube feeding stopped due to high residuals. Currently on suction, continues to have high residual--resume per surgery
06/18, CT chest abdomen pelvis pursued, fluid noted in the abdomen.
Purulent discharge from inferior margin of surgical site, bedside drainage on 06/19, sent for cultures. Growing Pseudomonas
06/20, IR guided peritoneal drains x 2 placed for intra-abdominal collections noted on imaging, Pseudomonas noted on peritoneal fluid culture
CT 06/29 concerning for large intraabdominal fluid collection as well as concern for rectal perforation with free air
06/29, s/p IR guided intraperitoneal drain placement, serous drainage noted
Colorectal surgery on case
07/02. Continues to be febrile, again developing hypotension, Levophed resumed--plan to return to OR 07/03
Tolerated procedure, maintained NPO
Patient had been on micafungin and Zosyn initially, subsequently switched to meropenem.
07/01, Pseudomonas is now carbapenem resistant, antibiotics were switched to cefepime, Flagyl and ciprofloxacin.
Also has been on IV vancomycin. 07/02, in view of encephalopathy, cefepime was switched to Zosyn.
BAL culture showing Pseudomonas
Mason catheter has been discontinued 06/25. Needed to be replaced 06/27
DM type II with Hyperglycemia
- Continue glycemic protocol as indicated
CONY. (07/02)
- Overall positive fluid balance by 3 L
- Ringer lactate 500 mL bolus, initiate D5W infusion in view of hypernatremia
- Start pressors to keep MAP above 65
DVT prophylaxis: -Lovenox
GI prophylaxis, pantoprazole
Prognosis is guarded
Full code
Family Discussions
Xiomara-Goals of care discussion 07/02. I called patient's and updated about patient's current condition. Considering lack of significant progress over the days and now worsening encephalopathy, developing hypotension, increasing pressor
requirement and CONY, overall prognosis is very poor. I brought up the option of pursuing more comfort focused care. Patient's was appreciative of the input and wants to talk to other care providers including infectious disease and surgery
service.
Diagnostic Data
Chest x-ray 06/08/2025: Reviewed, ET tube in place. Left lower lobe airspace disease. Cardiomegaly
CT abdomen pelvis 06/05/2025: The patient is significantly distended, and much of the abdominal and upper pelvic soft tissues extending anterior and to the left of the [id number], which limits evaluation, as it becomes difficult to confidently
follow the loops of bowel. There is distention of the rectum with air and stool, measuring 9.3 cm in diameter. There is marked distention of the sigmoid colon which extends into the right and central upper abdomen, with the sigmoid colon measuring
up to 18 cm in diameter. The sigmoid colon contains a moderate to large amount of stool, mainly inferiorly. There appears to be moderate distention of the rest of the visualized colon. Small bowel loops are present, and do not appear to be
significantly distended, similar appearance to prior examination. Of note, the cecum cannot be confidently identified on the present examination. No gross evidence of free intraperitoneal air. There is patchy parenchymal opacity within the
visualized lower lungs, most likely atelectasis. A component of pneumonia is also possible, although felt to be less likely. There is no significant pleural effusion and no significant pericardial effusion. Coronary artery calcifications are
present. Please correlate with symptoms of and risk factors for coronary artery disease, with further workup as clinically appropriate. Of note, the stomach is not distended.
ECHO 04/28/25: Left ventricle is moderately dilated with moderately reduced systolic function; left ventricular ejection fraction is 35% by modified Avery's method. Global hypokinesis. Mild concentric left ventricular hypertrophy. Moderate
concentric left ventricular hypertrophy. Stage I diastolic dysfunction suggestive of abnormal relaxation. Mildly dilated right ventricle with low normal RV function.
Mild mitral regurgitation. Sclerotic aortic valve with aortic annular calcification and peak and mean gradients of 23and 12 mmHg, respectively. Estimated BORA is 1.5 cm2., using an LVOT of 1.9 cm. No aortic regurgitation seen. Mild aortic stenosis.
Mild tricuspid regurgitation. Estimated pulmonary artery pressure of 50-55 mmHg, assuming a right atrial pressure of 3-8 mmHg. Compared to previous echo 12/26/24, the PA pressure has increased from 35 to 55 mmHg. LVEF may have improved slightly
from 25 to 35%. Previous study did use Definity.
-----
Critical care statement: A total of 38 minutes of critical care time was provided for this patient today. This includes management of unstable vital signs, evaluation of the patient at bedside, reviewing the patient's pertinent medical records
including ventilator settings, arterial blood gases, radiographs, microbiology, laboratory evaluations and discussion with primary team, critical care nursing, and respiratory therapy.
Subjective Dataa
Subjective Data
Date of Service:
Date of Service: July 04, 2025
Chief Complaint: Infection Control Specialist Follow Up (Septic shock/respiratory failure require mechanical ventilation)
Subjective:
Remains on levo/vaso
Vent requirements remains high as well 80%, 12+
Objective Data
Data Reviewed
Vital Signs / I&O / Oxygen:
Vital Signs
Temp Pulse Resp BP Pulse Ox
100.9 F H 122 25 95/52 97
07/04/25 04:00 07/04/25 06:00 07/03/25 17:30 07/03/25 23:06 07/04/25 06:00
Intake and Output
07/03/25 07/04/25 07/05/25
06:59 06:59 06:59
Intake Total 7917.5 / 8191.5 4969.5 / 4969.5
Output Total 2066 / 2066 2735 / 2735
Balance 5851.5 / 6125.5 2234.5 / 2234.5
SaO2 [CPAP/PSV] 89
SaO2 [ASV] 75
SaO2 [A/C] 97
SaO2 97
Nasal Cannula flow liters per 3
minute
Physical Exam
General: Comfortable (Currently on mechanical ventilation) and Other (Large neck, obese)
HEENT: Normocephalic, Anicteric and Tracheotomy
Cardiovascular: S1-S2, Regular Rhythm (Tachycardic), Murmur (1-2/6 systolic murmur) and Peripheral Edema (chronic venous stasis changes, BL 2+)
Respiratory: Wheeze (n), Crackles (n), Rhonchi (n), Non-Labored Respirations and Other (Tracheostomy)
GI: Soft, Distended (Morbidly obese), Non Tender and Other (Colostomy with trace amount of stool. 3 additional drains placed by IR service, right-sided purulent drainage noted, rest appears serous.)
Neurology: Awake, Lethargic, Non Verbal and Other (not following commands)
Skin: Cyanosis (n), Jaundice (n) and Rash (n)
Labs/Micro/Reports
Lab Data
07/04/25 04:50
07/04/25 04:50
Microbiology
06/29/25 18:25 Abdomen Anaerobic Culture - Preliminary
NO ANAEROBES ISOLATED
06/29/25 18:25 Abdomen Wound Culture - Preliminary
No growth
06/29/25 18:25 Abdomen Gram Stain - Preliminary
07/02/25 10:09 Blood/Venous Blood Culture - Preliminary
No Growth in 24 hours- Final report to follow
07/02/25 10:03 Blood/Venous Blood Culture - Preliminary
No Growth in 24 hours- Final report to follow
06/27/25 10:17 Blood/Venous Blood Culture - Final
No Growth - Final Report
06/27/25 09:56 Blood/Venous Blood Culture - Final
No Growth - Final Report
06/28/25 15:42 Sputum Respiratory Culture - Final
Pseudomonas aeruginosa
Pseudomonas aeruginosa#2
06/28/25 15:42 Sputum Gram Stain - Final
--- NOTE | 2025-07-04 07:15 | PTCARENOTE ---
0400 assessment unchanged. Levophed requirements increased throughout shift, vasopressin added at approx 0545 and order placed to double concentrate the levophed.
[2025-07-04] MEDS: LEVOPHED 258 MG IV (07:19)
[2025-07-04 07:40] LABS: Glucose - Point of Care 123 mg/dl (70-99)
--- NOTE | 2025-07-04 08:20 | PHA.VAN.FU ---
Vancomycin Assessment / Plan
- Assessment
Renal Function: SCR Increasing
WBC's are: Trending Up
In the past 24 hrs, patient has been: Febrile (TMAX 100.9 F)
Concomitant Antimicrobials: MICAFUNGIN, PIPERACILLIN/TAZOBACTAM
- Assessment - Therapeutic Drug Monitoring
Random Level: 17 DRAWN ~19HR AFTER PREVIOUS DOSE OF 1250MG
- Dosing Plan
Dosing by Level: Re-dose today (VANCO 1250MG)
- Monitoring Plan
Random Level: 07/05 @0600
- Follow Up
Pharmacy will continue to follow.
Vancomycin Follow UP
- -
Patient Age: 64
Patient Sex: Male
Vancomycin Day #: 7
Indication: Gi / Intra-Abdominal
Requesting Provider: Dr. Quispe
Pertinent Antimicrobial Allergies:
NKDA
Height / Weight:
Height 6 ft 3 in
Actual Weight 138.3 kg
Pertinent Past Medical History: BMI ~ 40
- Vital Signs / Lab Results
Temp Pulse Resp BP Pulse Ox
100.9 F H 122 25 95/52 97
07/04/25 04:00 07/04/25 06:00 07/03/25 17:30 07/03/25 23:06 07/04/25 06:00
Lab Results - Hematology
07/02/25 07/03/25 07/03/25
03:43 04:39 15:04
WBC 14.3 H 18.1 H Cancelled
07/03/25 07/04/25
15:53 04:50
WBC 16.7 H 24.7 H
Lab Results - Chemistry
07/02/25 07/03/25 07/03/25
03:43 04:39 15:04
BUN 57 H 66 H Cancelled
Creatinine 1.4 H 1.5 H Cancelled
Estimated Creat Clear 80 74 Cancelled
Albumin 2.3 L
07/03/25 07/04/25
15:54 04:50
BUN 61 H 67 H
Creatinine 1.6 H 1.7 H
Estimated Creat Clear 70 66
Albumin 2.3 L
07/04/25
05:13
Lactic Acid 1.2
Microbiology Results
06/29/25 18:25 Anaerobic Culture - Preliminary
Abdomen NO ANAEROBES ISOLATED
06/29/25 18:25 Wound Culture - Preliminary
Abdomen No growth
Gram Stain - Preliminary
07/02/25 10:09 Blood Culture - Preliminary
Blood/Venous No Growth in 24 hours- Final report to follow
07/02/25 10:03 Blood Culture - Preliminary
Blood/Venous No Growth in 24 hours- Final report to follow
06/27/25 10:17 Blood Culture - Final
Blood/Venous No Growth - Final Report
06/27/25 09:56 Blood Culture - Final
Blood/Venous No Growth - Final Report
06/28/25 15:42 Respiratory Culture - Final
Sputum Pseudomonas aeruginosa
Pseudomonas aeruginosa#2
Gram Stain - Final
Therapeutic Drug Monitoring
Vancomycin Peak 28.0 ug/ml (18-26) H 06/30/25 21:13
Vancomycin Trough 16.9 ug/ml (5-20) 07/01/25 04:54
Random Vancomycin 17.1 ug/ml 07/04/25 04:50
--- NOTE | 2025-07-04 08:22 | W.PN.ID1 ---
Date of Service
Date of Service: July 04, 2025
Today's Communication
Continue abx.
Assessment / Plan
# Rectal perforation (06/29) with large left intra-abd abscess
- s/p washout 07/03
# Fever
# Leukocytosis
# Septic shock
# MDR- carbapenem resistant Pseudomonas
- 06/29 s/p IR perc drain placement
abscess cx's neg to date
- OR cultures pending
- declined comfort measures and wishes to proceed with OR even though high surgical risk.
- Pseudomonas (from sputum) carbapenem-resistant - suspect in abdomen also.
- Has been on prolonged IV abx's since
- Continue current regimen cipro 400mg IV q12 (d#4), Zosyn (d#4), Vancomycin (d#6)
- Continue empiric Micafungin (d#2)
- Prognosis extremely guarded.
- Patient remains critically ill in ICU
# Colonic inertia with megacolon; status post ex lap, decompression, colostomy, stool leakage into the abdomen requiring washout 06/08/2025
# Recent purulent peritonitis
# Recent PNA with Pseudomonas
# VDRF s/p trach 06/25/25
# On TPN
- 06/08/25 Exploratory laparotomy, lysis of adhesions, sigmoidectomy, decompression of right colon, abdominal washout, creation of end descending colostomy, umbilical hernia repair
- No OR cx
- Blood cultures neg
- 06/15 s/p bronch with airway clearance; cx Pseudomonas
- 06/19 Colorectal opened midline abd distal incision. cx cx Pseudomonas, mixed anaerobes
- 06/20 aspiration/drainage of right abdominal peritoneal collections x 2. 1 of 2 cx : Pseudomonas
-06/28 Sputum CR -Pseudomonas
- 06/29 CXR: improving opacities
- s/p 10d empiric micafungin
- s/p Vancomycin IV x 6d previously
- s/p Zosyn(8d) -> meropenem (12d) -> cipro/zosyn
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
HFrEF
HTN
DM
Afib
HLD
Colonic Inertia / Dysmotility
Chronic opioid dependence
Advanced bilateral lower extremity venous insufficiency
Morbid obesity (BMI~43)
Chief Complaint
-: Fever, Leukocytosis and Other (Purulent peritonitis)
Subjective / Review of Systems
Patient seen and examined. Chart reviewed. Patient taken to the OR yesterday afternoon for laparotomy, fecal disimpaction, small bowel resection, abdominal washout and gastrostomy tube placement. Patient remains on vent at this time.
Review of Systems: Fever
Vital Signs / Physical Exam
Vital Signs
Vital Signs
Temp Pulse Resp BP Pulse Ox
100.9 F H 122 25 95/52 95
07/04/25 04:00 07/04/25 06:00 07/03/25 17:30 07/03/25 23:06 07/04/25 08:18
Physical Exam
Constitutional: Acutely Ill
Eyes: Sclera Anicteric
Cardiovascular: Regular Rate and S1/S2 (tachycardic); Negative S3/S4
Pulmonary: Rhonchi (scattered) and Other (+trach, on vent)
Gastrointestinal: Soft, Distended, Decreased Bowel Sounds and Other (Upper abdominal drains with ongoing drainage)
Genito-Urinary: Negative CVA Tenderness
Extremities: Edema and Venous Insufficiency (Bilateral lower extremities)
Neurological: Awake and Other (Responsive to voice and touch.)
Lines: PICC
Objective Data
Lab Data
Lab Results
07/04/25 04:50
07/04/25 04:50
PT 16.1 Sec (11.4-14.6) H 07/02/25 18:47
INR 1.24 07/02/25 18:47
APTT 41.3 Sec (23.4-35.0) H 07/02/25 18:47
Estimated Creat Clear 66 ml/min 07/04/25 04:50
Lactic Acid 1.2 mmol/L (0.7-2.0) 07/04/25 05:13
Total Bilirubin 0.8 mg/dl (0.2-1.3) 07/03/25 15:54
AST 21 U/L (17-59) 07/03/25 15:54
ALT 14 U/L (0-50) 07/03/25 15:54
Alkaline Phosphatase 91 U/L (38-126) 07/03/25 15:54
C-Reactive Protein > 270.00 mg/L (0.0-10.00) H 06/11/25 03:22
Most recent labs reviewed.
Micro Results:
06/29/25 18:25 Anaerobic Culture - Preliminary
Abdomen NO ANAEROBES ISOLATED
06/29/25 18:25 Wound Culture - Preliminary
Abdomen No growth
Gram Stain - Preliminary
07/02/25 10:09 Blood Culture - Preliminary
Blood/Venous No Growth in 24 hours- Final report to follow
07/02/25 10:03 Blood Culture - Preliminary
Blood/Venous No Growth in 24 hours- Final report to follow
06/27/25 10:17 Blood Culture - Final
Blood/Venous No Growth - Final Report
06/27/25 09:56 Blood Culture - Final
Blood/Venous No Growth - Final Report
06/28/25 15:42 Respiratory Culture - Final
Sputum Pseudomonas aeruginosa
Pseudomonas aeruginosa#2
Gram Stain - Final
06/15/25 10:08 Fungal Culture - Preliminary
Bronch Left Lower Lobe Evelyn albicans
06/20/25 11:01 Fungal Culture - Preliminary
Bronch Right Lower Lobe Culture in progress.
Positive cultures are reported as soon as detected.
Final report to follow in four to five weeks.
06/20/25 16:38 Body Fluid Culture - Final
Peritoneal Fluid Gram Stain - Final
06/20/25 16:34 Body Fluid Culture - Final
Peritoneal Fluid Pseudomonas aeruginosa
Gram Stain - Final
06/19/25 09:59 Wound Culture - Final
Abdomen Pseudomonas aeruginosa
Gram Stain - Final
06/19/25 09:59 Anaerobic Culture - Final
Abdomen
06/20/25 11:01 Respiratory Culture - Final
Bronch Right Lower Lobe Pseudomonas aeruginosa
Gram Stain - Final
06/20/25 11:01 Acid Fast Bacilli Smear - Preliminary
Bronch Right Lower Lobe Acid Fast Bacilli Culture - Preliminary
06/17/25 13:11 MRSA Screen - Final
Nose No Methicillin Resistant Staphylococcus aureus isolated.
06/13/25 12:07 Blood Culture - Final
Blood/Venous No Growth - Final Report
06/13/25 12:07 Blood Culture - Final
Blood/Venous No Growth - Final Report
06/15/25 10:08 Acid Fast Bacilli Smear - Preliminary
Bronch Left Lower Lobe Acid Fast Bacilli Culture - Preliminary
06/15/25 10:08 Respiratory Culture - Final
Bronch Left Lower Lobe Pseudomonas aeruginosa
Gram Stain - Final
06/14/25 11:22 Respiratory Culture - Final
Tracheal Aspirate Pseudomonas aeruginosa
Gram Stain - Final
06/11/25 09:27 Blood Culture - Final
Blood/Venous No Growth - Final Report
06/11/25 09:59 Blood Culture - Final
Blood/Venous No Growth - Final Report
06/06/25 07:57 MRSA Screen - Final
Nose No Methicillin Resistant Staphylococcus aureus isolated.
Imaging:
06/24/25 CXR: Slightly increased basilar predominant airspace opacities, worse on the left. Findings may be related to pneumonia or worsening atelectasis.
06/18/25 CT c/a/p: Suspected moderate volume mildly complex presumed free fluid in the abdomen, overall increased in volume in comparison to recent prior study, most prominently located in the right subhepatic region, right subdiaphragmatic region
and likely left abdomen/pelvis.
06/16/25 CXR: There is moderate airspace disease in right lower lung field concerning for pneumonia. There is obscuration of the left hemidiaphragm suggesting left lower lobe pneumonia
06/15/25 CXR: No pneumothorax status post bronchoscopy. Progressive homogeneous increased retrocardiac opacity. Suspect mild left perihilar and right infrahilar opacity which could represent atelectasis or pneumonia.
06/13/25 CT a/p: Very limited study. Small volume fluid in the abdomen, particularly in the left abdomen mildly complex. As this fluid is incompletely included, it cannot be determined whether this totally represents likely free fluid or combination
of free fluid and abnormal focal fluid collection. Additional small abnormal focal fluid collections cannot be excluded on the basis of this markedly limited study. Apparent recent prior partial sigmoidectomy with large volume stool seen in the
residual sigmoid colon and rectum.
06/10 CXR: Stable CHF and bibasilar atelectasis and/or pneumonia.
06/08/25 CXR: Diffuse marked colonic dilation. Measurement of caliber of the upper colon is slightly greater then obstruction series of June 07, 2025. Multiple air-fluid levels compatible with stasis. Moderate amount of stool within the inferior
aspect of the right colon as well as within the rectum. No gross evidence for free intraperitoneal air.
06/05/25 CT a/p: Significant gaseous distention of a large portion of the colon. This contributes to limitation of this examination, as the patient cannot be fully included on the [id number] of the CT scanner. If there can be some distal colonic
decompression, repeat scan could be considered, when hopefully the patient could be entirely included on the [id number] of the exam. No gross evidence for free intraperitoneal air. Patchy parenchymal opacity within the visualized lower lung, most
likely atelectasis. Pneumonia is a differential consideration, felt to be less likely based on morphologic appearance.
[2025-07-04 08:30] LABS: Glucose - Point of Care 131 mg/dl (70-99)
--- NOTE | 2025-07-04 08:30 | PTCARENOTE ---
Assumed care of pt at 0700. Pt more responsive--will occasionally grimace, spont opens eyes, trace movement noted to extremities. + cough, gag, corneals. Appears to follow with eyes. Pt not on any sedation. Received pt on insulin drip, Levophed,
vasopressin, and TPN infusions. See med titration flowsheet for Levophed titrations and critical care glycemic protocol flowsheet. Pt on vent, EEA970%,12,80% FiO2. Assessment as documented in nursing shift assessment flowsheet.
[2025-07-04] MEDS: VANCOCIN 275 MG IV (08:48)
[2025-07-04] MEDS: PROTONIX IV 40 MG IV (08:48)
[2025-07-04] MEDS: NSS (PRESERVATIVE FREE) 10 ML IV (08:48)
[2025-07-04] MEDS: FLOMAX 0.4 MG TUBE (08:49)
[2025-07-04] MEDS: HYDROPHOR 1 APPLIC TOPICAL (08:49)
[2025-07-04] MEDS: DESENEX/MITRAZOL/ZEASORB 1 APPLIC TOPICAL ×2 (08:49→19:57)
[2025-07-04] MEDS: SANTYL OINTMENT TOPICAL (08:50)
[2025-07-04 09:12] LABS: Glucose - Point of Care 145 mg/dl (70-99)
[2025-07-04 10:14] LABS: Glucose - Point of Care 127 mg/dl (70-99)
[2025-07-04] MEDS: MYCAMINE 105 MG IV (10:24)
[2025-07-04 11:08] LABS: Glucose - Point of Care 136 mg/dl (70-99)
--- NOTE | 2025-07-04 12:06 | W.PN.HOSP.TC ---
Today's Communication/Plan
-
Assessment / Plan
Assessment / Plan
General: Intubated, critically ill-appearing
HEENT: NormoCephalic, tracheostomy in place
Respiratory: Mechanical breath sounds bilaterally, equal chest rise
Cardiac: S1/S2 and Regular Rhythm; No Rub or Gallop
GI: Left-sided colostomy with minimal output of brown stool, PEG now in place, [address], midline incision with dressing clean dry intact
Musculoskeletal: No Edema, no deformity
Skin: Warm and dry
: Mason in place (replaced 06/27)
Neuro: Off sedation unresponsive to noxious stimuli
Psych: Unable to assess
Impression:
Mr. Knapp is a 64-year-old male with medical history of HFpEF, A-fib/flutter, IDDM, obesity, chronic pain with subsequent opioid dependence, and chronic constipation with colonic dysmotility who presented with shortness of breath, abdominal
bloating and discomfort, constipation. His last bowel movement was 2 weeks prior to arrival. He is having increasing difficulty breathing due to worsening abdominal distention. He has had multiple similar episodes since September 2024 and has
previously required decompression. He has been treated with enemas and neostigmine previously. Abdominal imaging showed significant colonic distention with air-filled loops of bowel. He also had patchy parenchymal opacities within the mid to
lower lungs. He was mildly hypoxic and has been started on antibiotics. He has remained afebrile with a mild leukocytosis of just over 12,000. He has been admitted for further evaluation and management.
Seen by GI, failed neostigmine, enema, status post nonsuccessful decompressive flexible sigmoidoscopy.
Surgery team consulted.
s/p Exploratory laparotomy, lysis of adhesions, sigmoidectomy, decompression of right colon, abdominal washout, creation of end descending colostomy, umbilical hernia repair on 06/08
admitted to ICU postoperatively, intubated.
Patient had fever,Infectious disease consult, started on zosyn.
Patient was still running fever, added micafungin.
CT chest: New right lower lobe consolidation with air bronchograms, atelectasis versus pneumonia, Possible small bilateral pleural effusions.
CT abdomen/pelvis shows: Small volume fluid in the abdomen, particularly in the left abdomen mildly complex. As this fluid is incompletely included, it cannot be determined whether this totally represents likely free fluid or combination of free
fluid and abnormal focal fluid collection. Additional small abnormal focal fluid collections cannot be excluded on the basis of this markedly limited study
S/p trach
Assessment/Plan:
Colonic dysmotility/ileus:
- Abdomen remained significantly distended despite multiple medical enemas and subsequent bowel movements
- Upgraded to IMU 06/07, pushed 4 mg neostigmine around 1:30 PM, no significant peristaltic response
- Ultimately required surgical intervention, brought to the OR 06/08 for ex lap with lysis of adhesions and sigmoidectomy with end descending colostomy, decompression of right colon, abdominal washout and umbilical hernia repair
- ICU postoperatively, intubated
- Colorectal surgery following, colostomy with brown stool output
- IR placed 2 abdominal drains 06/20 with serous output, a third drain was placed 06/29 for new collection
- Rectum was distended with stool and was manually disimpacted 07/01
- Brought back to the OR on 07/03 for washout, disimpaction, and PEG placement
- Continue TPN, holding tube feeds
Metabolic encephalopathy:
- Unclear etiology but likely secondary to critical illness
- Currently responsive only to noxious stimuli, off of sedation
- CT brain 07/01 shows no acute intracranial abnormality, possible mastoiditis
- No findings on ABG to explain mental status
- Neurology following, EEG showed generalized slowing indicative of toxic/metabolic encephalopathy, no focal epileptiform activity
Septic shock, requiring pressors:
- Status post sigmoidectomy with multiple intra-abdominal fluid collections and pulmonary infection
- Respiratory culture from 06/28 growing Carbapenem resistant Pseudomonas
- Antibiotics Zosyn and IV vancomycin
- Restarted micafungin
- Vasopressors currently with norepinephrine and vasopressin
- Seroquel discontinued 06/27
- Brought back to the OR 07/03 for abdominal washout
Acute hypoxic respiratory failure (currently intubated in the ICU postoperatively)
- Continue mechanical ventilation, ETT replaced 06/19 by custom garment designer, trach placed 06/25
- Underwent bronchoscopy with BAL left lower lobe 06/15 by custom garment designer, cultures growing Pseudomonas, repeat bronchoscopy with BAL 06/20 with aspiration of copious secretions
- Completed course of micafungin, continuing IV antibiotics as outlined above
- Hypertonic nebulized saline 3 times a day with albuterol, aggressive chest PT
- Additional Lasix pushes as needed
Hypernatremia:
- Improved with hypotonic IV fluids
paroxismal A-fib/flutter:
- Currently rate controlled, holding home metoprolol, continue home amiodarone 200 mg at night
- Holding home Xarelto, have transitioned to therapeutic Lovenox which is on hold currently for OR
IDDM:
- Insulin drip.
HFrEF:
- Acute on chronic chronic
- Holding home metoprolol succinate 100 mg
- Lasix pushes as needed, holding spironolactone, monitor daily weights
- No need for afterload reduction due to hypotension
CODE STATUS: Full code
DVT prophylaxis: Holding Lovenox preoperatively
Diet: TPN
Disposition: Continue management in the ICU.
Total time spent on today's encounter was 53 minutes which included time spent in counseling the patient/family regarding diagnosis and treatment plan as listed above, goals of care, and symptom management. Case was discussed with nursing staff,
specialists, and care coordinators/case management. All labs and imaging personally reviewed by me. Remainder the time spent in detailed review of previous records, lab data, imaging, and other medical provider documentation.
Anticipated Discharge: > 48 hours
Subjective/Interval History
-
Date of Service: July 04, 2025
Patient was seen and examined at bedside this morning. Remains on vasopressors. Status post OR yesterday for abdominal washout and PEG placement. Not on sedation and remains minimally arousable.
Objective Data
-
Labs:
Laboratory Results
07/04/25
04:50
WBC 24.7 H
Hgb 9.3 L
Hct 32.5 L
Plt Count 276 D
Sodium 148 H
Potassium 4.1
Chloride 113 H
Carbon Dioxide 32 H
BUN 67 H
Creatinine 1.7 H
Glucose 143 H
Calcium 8.2 L
Vital Signs:
Vital Signs
Temp Pulse Resp BP Pulse Ox
99.2 F 127 25 95/52 98
07/04/25 11:36 07/04/25 12:00 07/03/25 17:30 07/03/25 23:06 07/04/25 12:00
I&O
07/03/25 07/04/25 07/05/25
06:59 06:59 06:59
Intake Total 7917.5 / 8191.5 4969.5 / 5140.5 1341.0 / 1341.0
Output Total 6 / 6 2735 / 2735 600 / 600
Balance 5851.5 / 6125.5 2234.5 / 2405.5 741.0 / 741.0
Review of Systems
-
Unable to obtain full review of systems at this time due to: Acuity and Patient Intubation
Physical Exam
-
General: Intubated
[2025-07-04 12:13] LABS: Glucose - Point of Care 139 mg/dl (70-99)
--- NOTE | 2025-07-04 12:35 | PTCARENOTE ---
Trach care done with change of inner cannula, trach ties, optifoam under faceplate. ABD dressing changed. CHRISTINE A & B left open to air due to no drainage or skin breakdown and to protect skin from tape overuse. Wet to dry dressing to lower open ABD
site. Pt appears to be moving LUE more than AM assessment. Awaiting U/S RUE.
--- NOTE | 2025-07-04 13:13 | W.PN.GS2 ---
Addendum entered and electronically signed by Jaden Arrington MD 07/04/25 13:50:
Patient seen and examined. Agree with assessment plan as documented below.
Original Note:
Today's Communication / Plan
-
TPN
G-tube to gravity
Assessment / Plan
-
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
obstipation associated with megacolon. WBC 11.[address] showing gaseous distention of the colon, diameter of the sigmoid up to 18 cm in diameter. He received a dose of neostigmine, which failed. He underwent attempt at decompressive sigmoidoscopy,
but encountered too much stool. Due to refractory nature of his issue, we proceeded with surgery.
POD 20 exlap, sigmoidectomy, end-colostomy; iatrogenic spillage of stool - controlled and abdomen washed out, no colonic ischemia or perforation
POD 9 Tracheostomy placement
06/15 and 06/20 bronch for mucous plugging
06/19 midline incision opened up, +pseudomonas/mixed aneerobes
06/20 IR drains x2 to RUQ +pseudomonas in 1 of 2
06/29- IR successful ultrasound-guided drainage catheter placement into a left-sided intraperitoneal fluid collection.
POD #1 rtor for laparotomy, fecal disimpaction, flex sig, SBR and abdominal washout with placement of G-tube
Tmax of 100.9
VSS on IV pressors (maik and vaso)
Leukocytosis trending up today, likely reactive to surgery
H/H stable
Insulin gtt for hyperglycemia with TPN in setting of h/o DM
G-tube to gravity drainage
Stoma now productive of some small amounts of stool
Plan:
- Continue TPN/Insulin gtt
- c/w g-tube to gravity
- ID following for management of ABX
- Continue morales given retention with removal
Medical management as per ICU team
Subjective Data
-
Date of Service: July 04, 2025
Pt seen and examined at bedside with Dr. Arrington. Lethargic, grimaces to pain. VDRF.
Objective Data
-
Intake and Output
07/03/25 07/04/25 07/05/25
06:59 06:59 06:59
Intake Total 7917.5 / 8191.5 4969.5 / 5140.5 1341.0 / 1341.0
Output Total 2066 / 2066 2735 / 2735 600 / 600
Balance 5851.5 / 6125.5 2234.5 / 2405.5 741.0 / 741.0
Intake:
IV fluids (Total) 3129.5 / 3307.5 1785.5 / 1860.5 390.0 / 390.0
D5w 1,000 ml @ 125 mls/hr IV . 2350 / 2475 625 / 625
Q8H JASBIR Rx#:[id number]
Insulin 97 / 105 201 / 207 36 / 36
Levophed gtt 682.5 / 727.5 957.5 / 1017.5 300.0 / 300.0
Vasopressin gtt 54 / 54
IV piggybacks 1675 / 1675 1700 / 1700 375 / 375
TPN/PPN 2133 / 2229 1344 / 1440 576 / 576
Amount instilled into Drain ( / 20
Total)
Right Middle Abdomen Milton-
Vo B Placed in IR
Right Upper Abdomen Milton-
Vo A Placed in IR
Amount instilled into GI Tube ( 460 / 460 140 / 140
Total)
Gastrostomy 110 / 110
[place] Sump 460 / 460 30 / 30
Blood Product Amount Infused ( 500 / 500
mL)
Packed Rbc Leukoreduced Unit 250 / 250
[id number]
Packed Rbc Leukoreduced Unit 250 / 250
[id number]
Output:
Liquid stool amount
Colostomy
Drain Output (Total) 51 / 51 95 / 95
Left Middle Abdomen 0 / 0
Right Lower Abdomen Milton-
Vo
Right Middle Abdomen Milton-
Vo B Placed in IR
Right Upper Abdomen Milton-
Vo A Placed in IR
Gastrointestinal tube output ( 700 / 700 530 / 530
Total)
Gastrostomy 280 / 280
[place] Sump 700 / 700 250 / 250
Urine, Morales 1750 / 1750 600 / 600
Urine, Voided 1315 / 1315 350 / 350
Other:
How many times incontinent 1
SATURATED amount urine
Vital Signs
Temp Pulse Resp BP Pulse Ox
99.2 F 127 25 95/52 98
07/04/25 11:36 07/04/25 12:00 07/03/25 17:30 07/03/25 23:06 07/04/25 12:00
Lab Results
07/04/25 04:50
07/04/25 04:50
Calcium 8.2 mg/dl (8.4-10.2) L 07/04/25 04:50
Phosphorus 3.0 mg/dl (2.5-4.5) 07/03/25 04:39
Magnesium 2.3 mg/dl (1.6-2.3) 07/04/25 04:50
Total Bilirubin 0.8 mg/dl (0.2-1.3) 07/03/25 15:54
Direct Bilirubin 0.4 mg/dl (0.0-0.4) 06/15/25 04:25
AST 21 U/L (17-59) 07/03/25 15:54
ALT 14 U/L (0-50) 07/03/25 15:54
Alkaline Phosphatase 91 U/L (38-126) 07/03/25 15:54
Total Protein 5.9 g/dl (6.3-8.2) L 07/03/25 15:54
Albumin 2.3 g/dl (3.5-5.0) L 07/03/25 15:54
Physical Exam
-
Grimaces to painful stimuli, off sedation
Vent to trach
ABD soft, mild distention, obese IR drain to upper right abd with cloudy fluid, 2nd RUQ drain with serous fluid, RLQ drain with SSF, L drain with no active drainage in bag
Midline incision with intact dressing
Stoma pink/viable with some stool in appliance
G-tube to gravity drainage with bilious outputs
Patient has a morales catheter: Yes
Patient has a central line: Yes
[2025-07-04 14:11] LABS: Glucose - Point of Care 148 mg/dl (70-99)
[2025-07-04 16:09] LABS: Glucose - Point of Care 136 mg/dl (70-99)
[2025-07-04 18:21] LABS: Glucose - Point of Care 133 mg/dl (70-99)
--- NOTE | 2025-07-04 20:00 | PTCARENOTE ---
Received pt. at 1900. Pt. currently on ventilator via tracheostomy. Grimacing when suctioning. Otherwise no signs/symptoms of discomfort. Afebrile. Heart rhythm sinus. Currently on vasopressors to support blood pressure. Ventilator settings
verified. Lungs sound coarse. Currently receiving nutrition via TPN. PEG tube to drainage. Ostomy site intact. Mason catheter in place, draining without issue. Skin as documented. Vital signs stable at this time.
[2025-07-04 20:13] LABS: Glucose - Point of Care 129 mg/dl (70-99)
[2025-07-04] MEDS: Parenteral Nutrition, Central 2300 IV (20:56)
[2025-07-04] MEDS: PACERONE 200 MG TUBE (21:09)
[2025-07-04] MEDS: LIPITOR 40 MG TUBE (21:09)
[2025-07-04 22:11] LABS: Glucose - Point of Care 136 mg/dl (70-99)
--- NOTE | 2025-07-05 | PTCARENOTE ---
Pt. assessment unchanged. Vasopressors infusing. Vital signs stable at this time.
[2025-07-05 00:09] LABS: Glucose - Point of Care 153 mg/dl (70-99)
[2025-07-05] MEDS: PITRESSIN 100 IV (01:14)
[2025-07-05] MEDS: LEVOPHED 258 MG IV (01:45)
[2025-07-05 02:03] LABS: Glucose - Point of Care 136 mg/dl (70-99)
--- NOTE | 2025-07-05 04:00 | PTCARENOTE ---
Pt. assessment remains unchanged. AM labs drawn. Vital signs stable at this time.
[2025-07-05 04:09] LABS: Hematocrit 28.8 % (39.0-52.0); Hemoglobin 8.3 g/dL (13.0-18.0); Mean Corp Hgb Conc. 28.8 g/dL (33.0-37.0); Mean Corpuscular Volume 88.9 fL (80.0-94.0); Platelet Count 209 10^3/uL (130-400); Red Cell Dist. Width 16.3 % (11.5-14.5)
[2025-07-05 04:14] VITALS: BMI 37.9
[2025-07-05 04:14] LABS: Glucose - Point of Care 162 mg/dl (70-99)
[2025-07-05 04:16] LABS: Blood Urea Nitrogen 79 mg/dl (9-20); Calcium 8.3 mg/dl (8.4-10.2); Carbon Dioxide 30 mmol/L (22-30); Chloride 115 mmol/L (98-107); Estimated Creatinine Clearance 74 ml/min; Glucose 144 mg/dl (70-99); Magnesium 2.4 mg/dl (1.6-2.3); Potassium 3.6 mmol/L (3.5-5.1); Sodium 150 mmol/L (135-145); eGFR 51.67
[2025-07-05] MEDS: KCL ELIXIR 20 MEQ TUBE (04:41)
[2025-07-05] MEDS: ZOSYN 100 IV ×3 (05:42→17:35)
[2025-07-05 06:14] LABS: Glucose - Point of Care 140 mg/dl (70-99)
--- NOTE | 2025-07-05 07:15 | W.PN.INTV ---
Today's Communication / Plan
Recommendations
weaning down on pressors, vent settings are slowly weaning as well
defer to surgery for eventual PO intake as tpn remains causing reflex need for insulin gtt
IV abx continue, ID following
slow progress overall
Assessment
-
64-year-old male with a past medical history of cardiomyopathy, hypertension, DM type II, history of chronic opioid use due to chronic arthritis now on buprenorphine, history of ERASMO, venous insufficiency and chronic back pain who presented with
shortness of breath, abdominal distention. Found to have severe colonic distention. Initially treated with neostigmine, attempted sigmoidoscopy without attempt. Underwent exploratory laparotomy 06/08/2025-developed shock requiring vasopressors and
remained on mechanical ventilation. We were consulted on 06/09/2025.
Acute hypoxemic respiratory failure s/p intubation 06/08
s/p laparotomy
s/p Laparotomy, fecal disimpaction, flexible sigmoidoscopy, small bowel resection, abdominal washout and gastrostomy tube 07/03/25
pseudomonas PNA, w/ prolonged vent dependence s/p trach 06/25 (Shiley 8.0 XLT)
TME
Pseudoobstruction with megacolon, failed conservative management, s/p ex lap
Septic shock-peritonitis, intra-abdominal abscesses, concern for rectal perforation and LLL pneumonia
Acute on chronic heart failure with reduced ejection fraction, LVEF 35%, Stage I diastolic dysfunction
CONY
Prolonged QTc
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
Paroxysmal atrial flutter.
Hypertension
BPH
DM type II
chronic back pain
cardiomyopathy
venous insufficiency
history of ERASMO
severe osteoarthritis
chronic pain management due to arthritis
chronic buprenorphine use/narcotic use disorder
Pulmonary hypertension, estimated pulmonary artery systolic pressure 50-55
Morbid obesity
Plan
Sedation: none
Pain control: subutex, tylenol IV
Rass -3 to -4, goal 0
TME noted, EEG to evaluate for any nonconvulsive seizures--neg
Also patient develops agitation and desaturation with weaning of sedation.
ABG reviewed not suggestive of worsening hypercapnia, neurology consult
07/01, patient noted to be less responsive on attempted weaning. He has since been weaned off all sedation including Seroquel.
Continues to be unresponsive except some response to sternal rub
Norepinephrine resuming 07/02/vaso added-2 pressors/weaning off as able
PAF history, not on OAC
- Patient on outpatient Xarelto
- Heparin infusion, was held due to bloody secretions 06/25, enoxaparin p.m. started 06/26
- History of cardioversion in January 2025
- Has been on amiodarone/LFTs normal as of 06/22
Primarily group II PH related to underlying congestive heart failure
- Continue to optimize intravascular volume, keep saturations above 90%, no indication for vasodilator therapy
Patient has been diuresing well with intermittent Lasix/hold now due to hypotension
Fluid balance +2.9 L over last 24 hrs
In view of hyponatremia, start D5W infusion
Prolonged QTc - Improved after replacing potassium and magnesium
Initially due to abdominal distention requiring intubation, mechanical ventilation, subsequently LLL pneumonia
S/p bronchoscopy and BAL for thick copious secretions on 06/16 and 06/20, growing Pseudomonas. Secretions have since significantly improved
Chest x-ray with gradually improving consolidation
Status post tracheostomy 06/25. Mervin, 8.0 XLT
Body habitus, initially excessive secretions, severe pneumonia as well as intra-abdominal processes all are contributing to failure to liberate from mechanical ventilation
Patient has intermittently been tried on ASV, on 06/30, in view of desaturations, he was switched back to volume assist-control. Also patient tends to desaturate with lowered PEEP and does better with 10-12 of PEEP. With his body habitus his true
transpulmonary pressure is likely a lot less than the externally applied PEEP.
Stat chest x-ray was pursued on 07/01 unremarkable for any acute change
Remains on high vent requirements: 80% 12+ and not a candidate for SBT --weaned to 60% now
S/p ex lap, sigmoidectomy and end colostomy, iatrogenic spillage of stool, peritonitis, umbilical hernia repair, 06/08/2025
Small-volume stool output noted in the ostomy bag.
TPN infusing/insulin gtt
Tube feeding stopped due to high residuals. Currently on suction, continues to have high residual--resume per surgery
06/18, CT chest abdomen pelvis pursued, fluid noted in the abdomen.
Purulent discharge from inferior margin of surgical site, bedside drainage on 06/19, sent for cultures. Growing Pseudomonas
06/20, IR guided peritoneal drains x 2 placed for intra-abdominal collections noted on imaging, Pseudomonas noted on peritoneal fluid culture
CT 06/29 concerning for large intraabdominal fluid collection as well as concern for rectal perforation with free air
06/29, s/p IR guided intraperitoneal drain placement, serous drainage noted
Colorectal surgery on case
07/02. Continues to be febrile, again developing hypotension, Levophed resumed--plan to return to OR 07/03
Tolerated procedure, maintained NPO
Patient had been on micafungin and Zosyn initially, subsequently switched to meropenem.
07/01, Pseudomonas is now carbapenem resistant, antibiotics were switched to cefepime, Flagyl and ciprofloxacin.
Also has been on IV vancomycin. 07/02, in view of encephalopathy, cefepime was switched to Zosyn.
BAL culture showing Pseudomonas
Mason catheter has been discontinued 06/25. Needed to be replaced 06/27
DM type II with Hyperglycemia
- Continue glycemic protocol as indicated
CONY. (07/02)
- Overall positive fluid balance by 3 L
- Ringer lactate 500 mL bolus, initiate D5W infusion in view of hypernatremia
- Start pressors to keep MAP above 65
DVT prophylaxis: -Lovenox
GI prophylaxis, pantoprazole
Prognosis is guarded
Full code
Family Discussions
Xiomara-Goals of care discussion 07/02. I called patient's and updated about patient's current condition. Considering lack of significant progress over the days and now worsening encephalopathy, developing hypotension, increasing pressor
requirement and CONY, overall prognosis is very poor. I brought up the option of pursuing more comfort focused care. Patient's was appreciative of the input and wants to talk to other care providers including infectious disease and surgery
service.
Diagnostic Data
Chest x-ray 06/08/2025: Reviewed, ET tube in place. Left lower lobe airspace disease. Cardiomegaly
CT abdomen pelvis 06/05/2025: The patient is significantly distended, and much of the abdominal and upper pelvic soft tissues extending anterior and to the left of the [id number], which limits evaluation, as it becomes difficult to confidently
follow the loops of bowel. There is distention of the rectum with air and stool, measuring 9.3 cm in diameter. There is marked distention of the sigmoid colon which extends into the right and central upper abdomen, with the sigmoid colon measuring
up to 18 cm in diameter. The sigmoid colon contains a moderate to large amount of stool, mainly inferiorly. There appears to be moderate distention of the rest of the visualized colon. Small bowel loops are present, and do not appear to be
significantly distended, similar appearance to prior examination. Of note, the cecum cannot be confidently identified on the present examination. No gross evidence of free intraperitoneal air. There is patchy parenchymal opacity within the
visualized lower lungs, most likely atelectasis. A component of pneumonia is also possible, although felt to be less likely. There is no significant pleural effusion and no significant pericardial effusion. Coronary artery calcifications are
present. Please correlate with symptoms of and risk factors for coronary artery disease, with further workup as clinically appropriate. Of note, the stomach is not distended.
ECHO 04/28/25: Left ventricle is moderately dilated with moderately reduced systolic function; left ventricular ejection fraction is 35% by modified Avery's method. Global hypokinesis. Mild concentric left ventricular hypertrophy. Moderate
concentric left ventricular hypertrophy. Stage I diastolic dysfunction suggestive of abnormal relaxation. Mildly dilated right ventricle with low normal RV function.
Mild mitral regurgitation. Sclerotic aortic valve with aortic annular calcification and peak and mean gradients of 23and 12 mmHg, respectively. Estimated BORA is 1.5 cm2., using an LVOT of 1.9 cm. No aortic regurgitation seen. Mild aortic stenosis.
Mild tricuspid regurgitation. Estimated pulmonary artery pressure of 50-55 mmHg, assuming a right atrial pressure of 3-8 mmHg. Compared to previous echo 12/26/24, the PA pressure has increased from 35 to 55 mmHg. LVEF may have improved slightly
from 25 to 35%. Previous study did use Definity.
-----
Critical care statement: A total of 36 minutes of critical care time was provided for this patient today. This includes management of unstable vital signs, evaluation of the patient at bedside, reviewing the patient's pertinent medical records
including ventilator settings, arterial blood gases, radiographs, microbiology, laboratory evaluations and discussion with primary team, critical care nursing, and respiratory therapy.
Subjective Dataa
Subjective Data
Date of Service:
Date of Service: July 05, 2025
Chief Complaint: Metal Smelter Follow Up (Septic shock/respiratory failure require mechanical ventilation)
Subjective:
weaning down on pressors
remains on insulin gtt, tpn
vent at 60% and 12+
Objective Data
Data Reviewed
Vital Signs / I&O / Oxygen:
Vital Signs
Temp Pulse Resp BP Pulse Ox
99.3 F 133 25 95/52 97
07/05/25 04:00 07/05/25 06:00 07/03/25 17:30 07/03/25 23:06 07/05/25 06:00
Intake and Output
07/04/25 07/05/25 07/06/25
06:59 06:59 06:59
Intake Total 4969.5 / 5140.5 3803.6 / 3803.6
Output Total 2735 / 2735 3230 / 3230
Balance 2234.5 / 2405.5 573.6 / 573.6
SaO2 [CPAP/PSV] 89
SaO2 [ASV] 98
SaO2 [A/C] 97
SaO2 97
Nasal Cannula flow liters per 3
minute
Physical Exam
General: Comfortable (Currently on mechanical ventilation) and Other (Large neck, obese)
HEENT: Normocephalic, Anicteric and Tracheotomy
Cardiovascular: S1-S2, Regular Rhythm (Tachycardic), Murmur (1-2/6 systolic murmur) and Peripheral Edema (chronic venous stasis changes, BL 2+)
Respiratory: Wheeze (n), Crackles (n), Rhonchi (n), Non-Labored Respirations and Other (Tracheostomy)
GI: Soft, Distended (Morbidly obese), Non Tender and Other (Colostomy with trace amount of stool. 3 additional drains placed by IR service, right-sided purulent drainage noted, rest appears serous.)
Neurology: Awake, Lethargic, Non Verbal and Other (not following commands)
Skin: Cyanosis (n), Jaundice (n) and Rash (n)
Labs/Micro/Reports
Lab Data
07/05/25 03:26
07/05/25 03:26
Microbiology
07/02/25 10:09 Blood/Venous Blood Culture - Preliminary
No Growth in 48 hours- Final report to follow
07/02/25 10:03 Blood/Venous Blood Culture - Preliminary
No Growth in 48 hours- Final report to follow
06/29/25 18:25 Abdomen Anaerobic Culture - Preliminary
NO ANAEROBES ISOLATED
06/29/25 18:25 Abdomen Wound Culture - Preliminary
No growth
06/29/25 18:25 Abdomen Gram Stain - Preliminary
06/27/25 10:17 Blood/Venous Blood Culture - Final
No Growth - Final Report
06/27/25 09:56 Blood/Venous Blood Culture - Final
No Growth - Final Report
06/28/25 15:42 Sputum Respiratory Culture - Final
Pseudomonas aeruginosa
Pseudomonas aeruginosa#2
06/28/25 15:42 Sputum Gram Stain - Final
--- NOTE | 2025-07-05 07:38 | W.PN.ID1 ---
Date of Service
Date of Service: July 05, 2025
Today's Communication
Continue current antibiotics.
Assessment / Plan
# Rectal perforation (06/29) with large left intra-abd abscess
- s/p washout 07/03
# Fever
# Leukocytosis
# Septic shock
# MDR- carbapenem-resistant Pseudomonas
- 06/29 s/p IR perc drain placement
abscess cx's neg to date
- OR cultures pending
- declined comfort measures and wishes to proceed with OR even though high surgical risk.
- Pseudomonas (from sputum) carbapenem-resistant - suspect in abdomen also.
- Has been on prolonged IV abx's since
- Continue current regimen cipro 400mg IV q12 (d#5), Zosyn (d#5), Vancomycin (d#7)
- Continue empiric Micafungin (d#3)
- Prognosis extremely guarded.
- Patient remains critically ill, vent-dependent, in ICU
# Colonic inertia with megacolon; status post ex lap, decompression, colostomy, stool leakage into the abdomen requiring washout 06/08/2025
# Recent purulent peritonitis
# Recent PNA with Pseudomonas
# VDRF s/p trach 06/25/25
# On TPN
- 06/08/25 Exploratory laparotomy, lysis of adhesions, sigmoidectomy, decompression of right colon, abdominal washout, creation of end descending colostomy, umbilical hernia repair
- No OR cx
- Blood cultures neg
- 06/15 s/p bronch with airway clearance; cx Pseudomonas
- 06/19 Colorectal opened midline abd distal incision. cx cx Pseudomonas, mixed anaerobes
- 06/20 aspiration/drainage of right abdominal peritoneal collections x 2. 1 of 2 cx : Pseudomonas
-06/28 Sputum CR -Pseudomonas
- 06/29 CXR: improving opacities
- s/p 10d empiric micafungin
- s/p Vancomycin IV x 6d previously
- s/p Zosyn(8d) -> meropenem (12d) -> cipro/zosyn
# Conditions ACTUARIAL DIRECTOR
HFrEF
HTN
DM
Afib
HLD
Colonic Inertia / Dysmotility
Chronic opioid dependence
Advanced bilateral lower extremity venous insufficiency
Morbid obesity (BMI~43)
Chief Complaint
-: Fever, Leukocytosis and Other (Purulent peritonitis)
Subjective / Review of Systems
Review of Systems: No Fever
Vital Signs / Physical Exam
Vital Signs
Vital Signs
Temp Pulse Resp BP Pulse Ox
99.3 F 133 25 95/52 97
07/05/25 04:00 07/05/25 06:00 07/03/25 17:30 07/03/25 23:06 07/05/25 06:00
Physical Exam
Constitutional: Acutely Ill
Eyes: Sclera Anicteric
Oropharyngeal: Other (Tracheostomy to vent)
Cardiovascular: Regular Rate and S1/S2 (tachycardic); Negative S3/S4
Pulmonary: Rhonchi (scattered) and Other (+trach, on vent)
Gastrointestinal: Soft, Distended, Decreased Bowel Sounds and Other (Upper abdominal drains with ongoing drainage)
Genito-Urinary: Negative CVA Tenderness
Extremities: Edema and Venous Insufficiency (Bilateral lower extremities)
Wound: Other (Lower abdominal wound dehisced with packing in place. No purulence.)
Neurological: Other (Responsive to voice and touch.)
Lines: PICC
Objective Data
Lab Data
Lab Results
07/05/25 03:26
07/05/25 03:26
PT 16.1 Sec (11.4-14.6) H 07/02/25 18:47
INR 1.24 07/02/25 18:47
APTT 41.3 Sec (23.4-35.0) H 07/02/25 18:47
Estimated Creat Clear 74 ml/min 07/05/25 03:26
Lactic Acid 1.2 mmol/L (0.7-2.0) 07/04/25 05:13
Total Bilirubin 0.8 mg/dl (0.2-1.3) 07/03/25 15:54
AST 21 U/L (17-59) 07/03/25 15:54
ALT 14 U/L (0-50) 07/03/25 15:54
Alkaline Phosphatase 91 U/L (38-126) 07/03/25 15:54
C-Reactive Protein > 270.00 mg/L (0.0-10.00) H 06/11/25 03:22
Most recent labs reviewed.
Micro Results:
07/02/25 10:09 Blood Culture - Preliminary
Blood/Venous No Growth in 48 hours- Final report to follow
07/02/25 10:03 Blood Culture - Preliminary
Blood/Venous No Growth in 48 hours- Final report to follow
06/29/25 18:25 Anaerobic Culture - Preliminary
Abdomen NO ANAEROBES ISOLATED
06/29/25 18:25 Wound Culture - Preliminary
Abdomen No growth
Gram Stain - Preliminary
06/27/25 10:17 Blood Culture - Final
Blood/Venous No Growth - Final Report
06/27/25 09:56 Blood Culture - Final
Blood/Venous No Growth - Final Report
06/28/25 15:42 Respiratory Culture - Final
Sputum Pseudomonas aeruginosa
Pseudomonas aeruginosa#2
Gram Stain - Final
06/15/25 10:08 Fungal Culture - Preliminary
Bronch Left Lower Lobe Evelyn albicans
06/20/25 11:01 Fungal Culture - Preliminary
Bronch Right Lower Lobe Culture in progress.
Positive cultures are reported as soon as detected.
Final report to follow in four to five weeks.
06/20/25 16:38 Body Fluid Culture - Final
Peritoneal Fluid Gram Stain - Final
06/20/25 16:34 Body Fluid Culture - Final
Peritoneal Fluid Pseudomonas aeruginosa
Gram Stain - Final
06/19/25 09:59 Wound Culture - Final
Abdomen Pseudomonas aeruginosa
Gram Stain - Final
06/19/25 09:59 Anaerobic Culture - Final
Abdomen
06/20/25 11:01 Respiratory Culture - Final
Bronch Right Lower Lobe Pseudomonas aeruginosa
Gram Stain - Final
06/20/25 11:01 Acid Fast Bacilli Smear - Preliminary
Bronch Right Lower Lobe Acid Fast Bacilli Culture - Preliminary
06/17/25 13:11 MRSA Screen - Final
Nose No Methicillin Resistant Staphylococcus aureus isolated.
06/13/25 12:07 Blood Culture - Final
Blood/Venous No Growth - Final Report
06/13/25 12:07 Blood Culture - Final
Blood/Venous No Growth - Final Report
06/15/25 10:08 Acid Fast Bacilli Smear - Preliminary
Bronch Left Lower Lobe Acid Fast Bacilli Culture - Preliminary
06/15/25 10:08 Respiratory Culture - Final
Bronch Left Lower Lobe Pseudomonas aeruginosa
Gram Stain - Final
06/14/25 11:22 Respiratory Culture - Final
Tracheal Aspirate Pseudomonas aeruginosa
Gram Stain - Final
06/11/25 09:27 Blood Culture - Final
Blood/Venous No Growth - Final Report
06/11/25 09:59 Blood Culture - Final
Blood/Venous No Growth - Final Report
06/06/25 07:57 MRSA Screen - Final
Nose No Methicillin Resistant Staphylococcus aureus isolated.
Imaging:
06/24/25 CXR: Slightly increased basilar predominant airspace opacities, worse on the left. Findings may be related to pneumonia or worsening atelectasis.
06/18/25 CT c/a/p: Suspected moderate volume mildly complex presumed free fluid in the abdomen, overall increased in volume in comparison to recent prior study, most prominently located in the right subhepatic region, right subdiaphragmatic region
and likely left abdomen/pelvis.
06/16/25 CXR: There is moderate airspace disease in right lower lung field concerning for pneumonia. There is obscuration of the left hemidiaphragm suggesting left lower lobe pneumonia
06/15/25 CXR: No pneumothorax status post bronchoscopy. Progressive homogeneous increased retrocardiac opacity. Suspect mild left perihilar and right infrahilar opacity which could represent atelectasis or pneumonia.
06/13/25 CT a/p: Very limited study. Small volume fluid in the abdomen, particularly in the left abdomen mildly complex. As this fluid is incompletely included, it cannot be determined whether this totally represents likely free fluid or combination
of free fluid and abnormal focal fluid collection. Additional small abnormal focal fluid collections cannot be excluded on the basis of this markedly limited study. Apparent recent prior partial sigmoidectomy with large volume stool seen in the
residual sigmoid colon and rectum.
06/10 CXR: Stable CHF and bibasilar atelectasis and/or pneumonia.
06/08/25 CXR: Diffuse marked colonic dilation. Measurement of caliber of the upper colon is slightly greater then obstruction series of June 07, 2025. Multiple air-fluid levels compatible with stasis. Moderate amount of stool within the inferior
aspect of the right colon as well as within the rectum. No gross evidence for free intraperitoneal air.
06/05/25 CT a/p: Significant gaseous distention of a large portion of the colon. This contributes to limitation of this examination, as the patient cannot be fully included on the [id number] of the CT scanner. If there can be some distal colonic
decompression, repeat scan could be considered, when hopefully the patient could be entirely included on the [id number] of the exam. No gross evidence for free intraperitoneal air. Patchy parenchymal opacity within the visualized lower lung, most
likely atelectasis. Pneumonia is a differential consideration, felt to be less likely based on morphologic appearance.
--- NOTE | 2025-07-05 07:47 | PHA.VAN.FU ---
Vancomycin Assessment / Plan
- Assessment
Renal Function: SCR Decreasing (BUN INCREASING)
WBC's are: Trending Down
Concomitant Antimicrobials: MICAFUNGIN, PIPERACILLIN/TAZOBACTAM
- Assessment - Therapeutic Drug Monitoring
Random Level: 18.0 DRAWN ~18 HR AFTER PREVIOUS DOSE 1250MG
- Dosing Plan
Dosing by Level: Re-dose today (VANCO 1250MG X1)
- Follow Up
Pharmacy will continue to follow.
Vancomycin Follow UP
- -
Patient Age: 64
Patient Sex: Male
Vancomycin Day #: 8
Indication: Gi / Intra-Abdominal
Requesting Provider: Dr. Quispe
Pertinent Antimicrobial Allergies:
NKDA
Height / Weight:
Height 6 ft 3 in
Actual Weight 137.7 kg
Pertinent Past Medical History: BMI ~ 40
- Vital Signs / Lab Results
Temp Pulse Resp BP Pulse Ox
99.3 F 133 25 95/52 96
07/05/25 04:00 07/05/25 06:00 07/03/25 17:30 07/03/25 23:06 07/05/25 07:45
Lab Results - Hematology
07/03/25 07/03/25 07/03/25
04:39 15:04 15:53
WBC 18.1 H Cancelled 16.7 H
07/04/25 07/05/25
04:50 03:26
WBC 24.7 H 20.9 H
Lab Results - Chemistry
07/03/25 07/03/25 07/03/25
04:39 15:04 15:54
BUN 66 H Cancelled 61 H
Creatinine 1.5 H Cancelled 1.6 H
Estimated Creat Clear 74 Cancelled 70
Albumin 2.3 L 2.3 L
07/04/25 07/05/25
04:50 03:26
BUN 67 H 79 H
Creatinine 1.7 H 1.5 H
Estimated Creat Clear 66 74
Albumin
07/04/25
05:13
Lactic Acid 1.2
Microbiology Results
07/02/25 10:09 Blood Culture - Preliminary
Blood/Venous No Growth in 48 hours- Final report to follow
07/02/25 10:03 Blood Culture - Preliminary
Blood/Venous No Growth in 48 hours- Final report to follow
06/29/25 18:25 Anaerobic Culture - Preliminary
Abdomen NO ANAEROBES ISOLATED
06/29/25 18:25 Wound Culture - Preliminary
Abdomen No growth
Gram Stain - Preliminary
Therapeutic Drug Monitoring
Vancomycin Peak 28.0 ug/ml (18-26) H 06/30/25 21:13
Vancomycin Trough 16.9 ug/ml (5-20) 07/01/25 04:54
Random Vancomycin 18.0 ug/ml 07/05/25 03:26
[2025-07-05] MEDS: NOVOLIN R INSULIN INFUSION 100 IV ×2 (08:01→21:00)
[2025-07-05] MEDS: HYDROPHOR 1 APPLIC TOPICAL (08:03)
[2025-07-05] MEDS: NSS (PRESERVATIVE FREE) 10 ML IV (08:03)
[2025-07-05] MEDS: DESENEX/MITRAZOL/ZEASORB 1 APPLIC TOPICAL ×2 (08:03→20:57)
[2025-07-05] MEDS: PROTONIX IV 40 MG IV (08:03)
[2025-07-05] MEDS: SANTYL OINTMENT 1 APPLIC TOPICAL (08:04)
[2025-07-05] MEDS: VANCOCIN 275 MG IV (08:07)
[2025-07-05 08:08] LABS: Glucose - Point of Care 154 mg/dl (70-99)
--- NOTE | 2025-07-05 08:30 | PTCARENOTE ---
Assumed care of pt at 0700. Pt more responsive--will occasionally grimace, spont opens eyes, trace movement noted to extremities, LUE significant mvmt against gravity but not purposeful. + cough, gag, corneals. Appears to follow with eyes. Pt not on
any sedation. Received pt on insulin drip, Levophed, vasopressin, and TPN infusions. See med titration flowsheet for Levophed titrations and critical care glycemic protocol flowsheet. Pt on vent, [id number]%,12,80% FiO2, Changed to AC26/500/12/50% as
per link trainer. Assessment as documented in nursing shift assessment flowsheet.
[2025-07-05 10:12] LABS: Glucose - Point of Care 121 mg/dl (70-99)
[2025-07-05] MEDS: MYCAMINE 105 MG IV (10:54)
--- NOTE | 2025-07-05 10:56 | PTCARENOTE ---
Notified Yarrow Gatherer of increasing HR, possible pSVT and increasing ectopy. Weaning off levophed and vasopressin off at this time.
--- NOTE | 2025-07-05 11:31 | PTCARENOTE ---
Dressings changed on ABD JPs and surgical site. Some JPs without drain sponges due to no drainage and skin protection from tape overuse.
[2025-07-05 12:14] LABS: Glucose - Point of Care 156 mg/dl (70-99)
[2025-07-05 13:02] LABS: Hematocrit 30.2 % (39.0-52.0); Hemoglobin 9.0 g/dL (13.0-18.0); Mean Corp Hgb Conc. 29.8 g/dL (33.0-37.0); Mean Corpuscular Volume 87.8 fL (80.0-94.0); Platelet Count 199 10^3/uL (130-400); Red Cell Dist. Width 16.3 % (11.5-14.5)
[2025-07-05 13:11] LABS: APTT 29.9 Sec (23.4-35.0)
--- NOTE | 2025-07-05 13:24 | W.PN.GS2 ---
Addendum entered and electronically signed by Jaden Arrington MD 07/05/25 13:31:
Patient seen examined. Agree assessment plan as documented below.
Original Note:
Today's Communication / Plan
-
TPN/NPO
Ok for IV heparin
Assessment / Plan
-
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
obstipation associated with megacolon. WBC 11.[address] showing gaseous distention of the colon, diameter of the sigmoid up to 18 cm in diameter. He received a dose of neostigmine, which failed. He underwent attempt at decompressive sigmoidoscopy,
but encountered too much stool. Due to refractory nature of his issue, we proceeded with surgery.
POD 21 exlap, sigmoidectomy, end-colostomy; iatrogenic spillage of stool - controlled and abdomen washed out, no colonic ischemia or perforation
POD 10 Tracheostomy placement
06/15 and 06/20 bronch for mucous plugging
06/19 midline incision opened up, +pseudomonas/mixed aneerobes
06/20 IR drains x2 to RUQ +pseudomonas in 1 of 2
06/29- IR successful ultrasound-guided drainage catheter placement into a left-sided intraperitoneal fluid collection.
POD #2 rtor for laparotomy, fecal disimpaction, flex sig, SBR and abdominal washout with placement of G-tube
Tmax of 100.4
VSS pressors being weaned to off
Leukocytosis trending back down
H/H stable on repeat check today
Insulin gtt for hyperglycemia with TPN in setting of h/o DM
G-tube to gravity drainage, bile tinged outputs
Stoma productive of some small amounts of stool
Plan:
- Continue TPN/Insulin gtt
- c/w g-tube to gravity. If continues with good stoma outputs, may be able to start trickle TF tomorrow
- ID following for management of ABX
- Continue morales given retention with removal
- OK to start IV heparin from surgical standpoint
Medical management as per ICU team
Subjective Data
-
Date of Service: July 05, 2025
Pt seen and examined at bedside with Dr. Arrington. Opening eyes but not following commands. VDRF
Objective Data
-
Intake and Output
07/04/25 07/05/25 07/06/25
06:59 06:59 06:59
Intake Total 4969.5 / 5140.5 3803.6 / 3931.6 827.9 / 827.9
Output Total 2735 / 2735 3230 / 3230 1215 / 1215
Balance 2234.5 / 2405.5 573.6 / 701.6 -387.1 / -387.1
Intake:
IV fluids (Total) 1785.5 / 1860.5 936.6 / 968.6 155.9 / 155.9
D5w 1,000 ml @ 125 mls/hr IV . 625 / 625
Q8H JASBIR Rx#:[id number]
Insulin 201 / 207 156 / 164 46 / 46
Levophed gtt 957.5 / 1017.5 564.6 / 579.6 64.9 / 64.9
Vasopressin gtt 2 / 11 216 / 225 45 / 45
IV piggybacks 1700 / 1700 575 / 575
TPN/PPN 1344 / 1440 2277 / 2373 672 / 672
Amount instilled into GI Tube ( 140 / 140 15 / 15
Total)
Gastrostomy 110 / 110 15 / 15
Huntley Sump 30 / 30
Output:
Liquid stool amount 10 / 10 100 / 100 100 / 100
Colostomy 10 / 10 100 / 100 100 / 100
Drain Output (Total) 95 / 95 10 / 10
Left Middle Abdomen
Right Lower Abdomen Milton- 55 0 / 0
Vo
Right Middle Abdomen Milton- 0 0
Vo B Placed in IR
Right Upper Abdomen Milton-
Vo A Placed in IR
Gastrointestinal tube output ( 530 / 530 250 / 250 500 / 500
Total)
Gastrostomy 280 / 280 250 / 250 500 / 500
Huntley Sump 250 / 250
Urine, Morales 1750 / 1750 2870 / 2870 615 / 615
Urine, Voided 350 / 350
Vital Signs
Temp Pulse Resp BP Pulse Ox
100 F 142 25 95/52 92
07/05/25 11:15 07/05/25 11:30 07/03/25 17:30 07/03/25 23:06 07/05/25 12:00
Lab Results
07/05/25 12:48
07/05/25 03:26
Calcium 8.3 mg/dl (8.4-10.2) L 07/05/25 03:26
Phosphorus 3.0 mg/dl (2.5-4.5) 07/03/25 04:39
Magnesium 2.4 mg/dl (1.6-2.3) H 07/05/25 03:26
Total Bilirubin 0.8 mg/dl (0.2-1.3) 07/03/25 15:54
Direct Bilirubin 0.4 mg/dl (0.0-0.4) 06/15/25 04:25
AST 21 U/L (17-59) 07/03/25 15:54
ALT 14 U/L (0-50) 07/03/25 15:54
Alkaline Phosphatase 91 U/L (38-126) 07/03/25 15:54
Total Protein 5.9 g/dl (6.3-8.2) L 07/03/25 15:54
Albumin 2.3 g/dl (3.5-5.0) L 07/03/25 15:54
Physical Exam
-
Opening eyes spontaneously. Grimaces to painful stimuli, off sedation
Vent to trach
ABD soft, mild distention, obese IR drain to upper right abd with very minimal cloudy fluid, 2nd RUQ drain with serous fluid, RLQ drain with SSF, L drain with no active drainage in bag
Midline incision with intact dressing
Stoma pink/viable with some stool in appliance
G-tube to gravity drainage with bilious outputs
Patient has a morales catheter: Yes
Patient has a central line: Yes
[2025-07-05 14:04] LABS: Glucose - Point of Care 149 mg/dl (70-99)
--- NOTE | 2025-07-05 15:44 | W.PN.HOSP.TC ---
Today's Communication/Plan
-
Assessment / Plan
Assessment / Plan
General: Intubated, critically ill-appearing
HEENT: NormoCephalic, tracheostomy in place
Respiratory: Mechanical breath sounds bilaterally, equal chest rise
Cardiac: S1/S2 and Regular Rhythm; No Rub or Gallop
GI: Left-sided colostomy with minimal output of brown stool, PEG now in place, [address], midline incision with dressing clean dry intact
Musculoskeletal: No Edema, no deformity
Skin: Warm and dry
: Mason in place (replaced 06/27)
Neuro: Off sedation unresponsive to noxious stimuli
Psych: Unable to assess
Impression:
Mr. Knapp is a 64-year-old male with medical history of HFpEF, A-fib/flutter, IDDM, obesity, chronic pain with subsequent opioid dependence, and chronic constipation with colonic dysmotility who presented with shortness of breath, abdominal
bloating and discomfort, constipation. His last bowel movement was 2 weeks prior to arrival. He is having increasing difficulty breathing due to worsening abdominal distention. He has had multiple similar episodes since September 2024 and has
previously required decompression. He has been treated with enemas and neostigmine previously. Abdominal imaging showed significant colonic distention with air-filled loops of bowel. He also had patchy parenchymal opacities within the mid to
lower lungs. He was mildly hypoxic and has been started on antibiotics. He has remained afebrile with a mild leukocytosis of just over 12,000. He has been admitted for further evaluation and management.
Seen by GI, failed neostigmine, enema, status post nonsuccessful decompressive flexible sigmoidoscopy.
Surgery team consulted.
s/p Exploratory laparotomy, lysis of adhesions, sigmoidectomy, decompression of right colon, abdominal washout, creation of end descending colostomy, umbilical hernia repair on 06/08
admitted to ICU postoperatively, intubated.
Patient had fever,Infectious disease consult, started on zosyn.
Patient was still running fever, added micafungin.
CT chest: New right lower lobe consolidation with air bronchograms, atelectasis versus pneumonia, Possible small bilateral pleural effusions.
CT abdomen/pelvis shows: Small volume fluid in the abdomen, particularly in the left abdomen mildly complex. As this fluid is incompletely included, it cannot be determined whether this totally represents likely free fluid or combination of free
fluid and abnormal focal fluid collection. Additional small abnormal focal fluid collections cannot be excluded on the basis of this markedly limited study
S/p trach
Assessment/Plan:
Colonic dysmotility/ileus:
- Abdomen remained significantly distended despite multiple medical enemas and subsequent bowel movements
- Upgraded to IMU 06/07, pushed 4 mg neostigmine around 1:30 PM, no significant peristaltic response
- Ultimately required surgical intervention, brought to the OR 06/08 for ex lap with lysis of adhesions and sigmoidectomy with end descending colostomy, decompression of right colon, abdominal washout and umbilical hernia repair
- ICU postoperatively, intubated
- Colorectal surgery following, colostomy with brown stool output
- IR placed 2 abdominal drains 06/20 with serous output, a third drain was placed 06/29 for new collection
- Rectum was distended with stool and was manually disimpacted 07/01
- Brought back to the OR on 07/03 for washout, disimpaction, and PEG placement
- Continue TPN, holding tube feeds for now however may be able to start trickle feeds if continues to have good stoma outputs
Metabolic encephalopathy:
- Unclear etiology but likely secondary to critical illness
- Currently responsive only to noxious stimuli, off of sedation
- CT brain 07/01 shows no acute intracranial abnormality, possible mastoiditis
- No findings on ABG to explain mental status
- Neurology following, EEG showed generalized slowing indicative of toxic/metabolic encephalopathy, no focal epileptiform activity
Septic shock, requiring pressors:
- Status post sigmoidectomy with multiple intra-abdominal fluid collections and pulmonary infection
- Respiratory culture from 06/28 growing Carbapenem resistant Pseudomonas
- Brought back to the OR 07/03 for abdominal washout
- Antibiotics Zosyn and IV vancomycin
- Restarted micafungin
- Vasopressors currently on hold
- Seroquel discontinued 06/27
Acute hypoxic respiratory failure (currently intubated in the ICU postoperatively)
- Continue mechanical ventilation, ETT replaced 06/19 by talent development director, trach placed 06/25
- Underwent bronchoscopy with BAL left lower lobe 06/15 by talent development director, cultures growing Pseudomonas, repeat bronchoscopy with BAL 06/20 with aspiration of copious secretions
- Continuing IV antibiotics as outlined above
- Hypertonic nebulized saline 3 times a day with albuterol, aggressive chest PT
- Additional Lasix pushes as needed
Hypernatremia:
- Improved with hypotonic IV fluids
paroxismal A-fib/flutter:
- Currently rate controlled, holding home metoprolol, continue home amiodarone 200 mg at night
- Holding home Xarelto, have transitioned to therapeutic Lovenox which is on hold currently for OR
IDDM:
- Insulin drip.
HFrEF:
- Acute on chronic chronic
- Holding home metoprolol succinate 100 mg
- Lasix pushes as needed, holding spironolactone, monitor daily weights
- No need for afterload reduction due to hypotension
CODE STATUS: Full code
DVT prophylaxis: Surgery okay with IV heparin
Diet: TPN
Disposition: Continue management in the ICU.
Total time spent on today's encounter was 56 minutes which included time spent in counseling the patient/family regarding diagnosis and treatment plan as listed above, goals of care, and symptom management. Case was discussed with nursing staff,
specialists, and care coordinators/case management. All labs and imaging personally reviewed by me. Remainder the time spent in detailed review of previous records, lab data, imaging, and other medical provider documentation.
Anticipated Discharge: > 48 hours
Subjective/Interval History
-
Date of Service: July 05, 2025
Patient was seen and examined at bedside this morning. Opens eyes to voice. Not interactive. Remains critically ill.
Objective Data
-
Labs:
Laboratory Results
07/05/25 07/05/25
03:26 12:48
WBC 20.9 H 18.8 H
Hgb 8.3 L 9.0 L
Hct 28.8 L 30.2 L
Plt Count 209 D 199
APTT 29.9
Sodium 150 H
Potassium 3.6
Chloride 115 H
Carbon Dioxide 30
BUN 79 H
Creatinine 1.5 H
Glucose 144 H
Calcium 8.3 L
Vital Signs:
Vital Signs
Temp Pulse Resp BP Pulse Ox
100.6 F H 83 25 95/52 95
07/05/25 15:20 07/05/25 15:00 07/03/25 17:30 07/03/25 23:06 07/05/25 15:30
I&O
07/04/25 07/05/25 07/06/25
06:59 06:59 06:59
Intake Total 4969.5 / 5140.5 3803.6 / 3931.6 1039.7 / 1039.7
Output Total 2735 / 2735 3230 / 3230 1890 / 1890
Balance 2234.5 / 2405.5 573.6 / 701.6 -850.3 / -850.3
Review of Systems
-
Unable to obtain full review of systems at this time due to: Patient Intubation
Physical Exam
-
General: Intubated
[2025-07-05 16:15] LABS: Glucose - Point of Care 136 mg/dl (70-99)
[2025-07-05 18:16] LABS: Glucose - Point of Care 153 mg/dl (70-99)
[2025-07-05 20:06] LABS: Glucose - Point of Care 137 mg/dl (70-99)
--- NOTE | 2025-07-05 20:19 | PTCARENOTE ---
Assumed care of pt at 1900. Pt lethargic, will open eyes spontaneously but not purposefully to voice/name, will not follow commands. Pt will move his head back and forth, will move his LUE up off of the pillow but is not doing anything purposefully
with the LUE. All other extremities with trace movement/withdraw to pain. Not on any continuous sedation or sedative medications at this time. ST on monitor 100s-140s with frequent ectopy, at times PVCs in bigeminal or trigeminal pattern. Received
pt on double concentrated Levophed at 4mcg/min, see med titration flowsheet for details on titrations throughout the shift. Pt on insulin drip per critical care glycemic protocol. TPN infusing. Vent settings: AC 26/500/50/12, pt desatting frequently
as low as 85%, needing to be put at 100% FiO2 each time, attempted to suction patient and very scant to no secretions obtained via inline suctioning. Yellowish secretions coming from around trach stoma. Trach positional with air leak but pt has
mostly been maintaining his volumes. FiO2 increased back to 100% by RT in light of pt continuously dropping to the mid 80s. Assessment as documented in nursing shift assessment flowsheet.
[2025-07-05] MEDS: PACERONE 200 MG TUBE (20:58)
[2025-07-05] MEDS: LIPITOR 40 MG TUBE (20:58)
[2025-07-05] MEDS: Parenteral Nutrition, Central 2300 IV (20:58)
[2025-07-05 22:15] LABS: Glucose - Point of Care 139 mg/dl (70-99)
[2025-07-05 23:58] LABS: Glucose - Point of Care 154 mg/dl (70-99)
--- NOTE | 2025-07-06 00:06 | PTCARENOTE ---
No change in assessment. Levophed weaned off, pt only on TPN and Insulin drip at this time. FiO2 weaned to 90% by RT.
[2025-07-06] MEDS: ZOSYN 100 IV ×4 (00:15→18:04)
[2025-07-06 02:09] LABS: Glucose - Point of Care 127 mg/dl (70-99)
[2025-07-06 02:28] VITALS: BMI 36.9
[2025-07-06 03:39] LABS: Hematocrit 28.4 % (39.0-52.0); Hemoglobin 8.3 g/dL (13.0-18.0); Mean Corp Hgb Conc. 29.2 g/dL (33.0-37.0); Mean Corpuscular Volume 89.3 fL (80.0-94.0); Platelet Count 187 10^3/uL (130-400); Red Cell Dist. Width 16.6 % (11.5-14.5)
[2025-07-06 04:04] LABS: Blood Urea Nitrogen 83 mg/dl (9-20); Calcium 8.8 mg/dl (8.4-10.2); Carbon Dioxide 32 mmol/L (22-30); Chloride 120 mmol/L (98-107); Estimated Creatinine Clearance 73 ml/min; Glucose 119 mg/dl (70-99); Potassium 3.6 mmol/L (3.5-5.1); Sodium 157 mmol/L (135-145); eGFR 51.67
[2025-07-06 04:17] LABS: Glucose - Point of Care 117 mg/dl (70-99)
--- NOTE | 2025-07-06 04:30 | PTCARENOTE ---
Assessment unchanged. Remains off Levophed. Weaned down to 80% FiO2 by RT.
[2025-07-06] MEDS: KCL ELIXIR 40 MEQ TUBE (06:18)
[2025-07-06 06:31] LABS: Glucose - Point of Care 131 mg/dl (70-99)
--- NOTE | 2025-07-06 07:19 | W.PN.INTV ---
Today's Communication / Plan
Recommendations
Off pressors, sedation
ASV maintained, no plans for weaning while on 70%/12+ which is likely from volume overload
Hypernatremia worsening (likely from postop/hypoalbuminemia/TPN)-- resume D5W IVFs (FWF ~6L)
Volume overload ongoing, resume lasix
Continue abx per ID, can consider narrowing
Resumed on heparin, no bolus
Await PO access per surgery which would liberate off drips
Assessment
-
64-year-old male with a past medical history of cardiomyopathy, hypertension, DM type II, history of chronic opioid use due to chronic arthritis now on buprenorphine, history of ERASMO, venous insufficiency and chronic back pain who presented with
shortness of breath, abdominal distention. Found to have severe colonic distention. Initially treated with neostigmine, attempted sigmoidoscopy without attempt. Underwent exploratory laparotomy 06/08/2025-developed shock requiring vasopressors and
remained on mechanical ventilation. We were consulted on 06/09/2025.
Acute hypoxemic respiratory failure s/p intubation 06/08
s/p laparotomy
s/p Laparotomy, fecal disimpaction, flexible sigmoidoscopy, small bowel resection, abdominal washout and gastrostomy tube 07/03/25
pseudomonas PNA, w/ prolonged vent dependence s/p trach 06/25 (Shiley 8.0 XLT)
TME
Pseudoobstruction with megacolon, failed conservative management, s/p ex lap
Septic shock-peritonitis, intra-abdominal abscesses, concern for rectal perforation and LLL pneumonia
Acute on chronic heart failure with reduced ejection fraction, LVEF 35%, Stage I diastolic dysfunction
CONY
Prolonged QTc
Hypernatremia
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
Paroxysmal atrial flutter.
Hypertension
BPH
DM type II
chronic back pain
cardiomyopathy
venous insufficiency
history of ERASMO
severe osteoarthritis
chronic pain management due to arthritis
chronic buprenorphine use/narcotic use disorder
Pulmonary hypertension, estimated pulmonary artery systolic pressure 50-55
Morbid obesity
Plan
Sedation: none
Pain control: subutex, tylenol IV
Rass -3 to -4, goal 0
TME noted, EEG to evaluate for any nonconvulsive seizures--neg
Maintained off sedation >72 hours
Continues to be unresponsive except some response to sternal rub/grimacing
Hypernatremia an issue, remains on D5W
Off pressors past 24 hours
PAF history, on outpatient Xarelto/history of cardioversion in January 2025/Amio PO
Heparin infusion, was held due to bloody secretions 06/25, enoxaparin p.m. started 06/26
Ok to resume heparin per surgery 07/06
Primarily group II PH related to underlying congestive heart failure
Continue to optimize intravascular volume, keep saturations above 90%, no indication for vasodilator therapy
Patient has been diuresing well with intermittent Lasix/hold now due to hypotension
Fluid balance +2.9 L over last 24 hrs
In view of hyponatremia, start D5W infusion (~6L FWD)
Resume lasix as well while off pressors
Prolonged QTc - Improved after replacing potassium and magnesium
Initially due to abdominal distention requiring intubation, mechanical ventilation, subsequently LLL pneumonia
S/p bronchoscopy and BAL for thick copious secretions on 06/16 and 06/20, growing Pseudomonas. Secretions have since significantly improved
Chest x-ray with gradually improving consolidation
Status post tracheostomy 06/25. Shiley, 8.0 XLT
Chest x-ray 07/01 unremarkable for any acute change
Change from AC to ASV for comfort/peak pressures, tolerating
Remains on high vent requirements: 80% 12+ and not a candidate for SBT --weaned to 60-70% now--desaturation noted with ongoing attempts to wean
Likely due to volume overload
S/p ex lap, sigmoidectomy and end colostomy, iatrogenic spillage of stool, peritonitis, umbilical hernia repair, 06/08/2025
Small-volume stool output noted in the ostomy bag.
TPN infusing/insulin gtt
Tube feeding stopped due to high residuals. Currently on suction, continues to have high residual--resume per surgery
06/18, CT chest abdomen pelvis pursued, fluid noted in the abdomen.
Purulent discharge from inferior margin of surgical site, bedside drainage on 06/19, sent for cultures. Growing Pseudomonas
06/20, IR guided peritoneal drains x 2 placed for intra-abdominal collections noted on imaging, Pseudomonas noted on peritoneal fluid culture
CT 06/29 concerning for large intraabdominal fluid collection as well as concern for rectal perforation with free air
06/29, s/p IR guided intraperitoneal drain placement, serous drainage noted
Colorectal surgery on case
s/p OR 07/03: Laparotomy, fecal disimpaction, flexible sigmoidoscopy, small bowel resection, abdominal washout and gastrostomy tube
Tolerated procedure, maintained NPO--Await surgery plan to liberate PO access
Patient had been on micafungin and Zosyn initially, subsequently switched to meropenem.
07/01, Pseudomonas is now carbapenem resistant, antibiotics were switched to cefepime, Flagyl and ciprofloxacin.
Also has been on IV vancomycin. 07/02, in view of encephalopathy, cefepime was switched to Zosyn.
BAL culture showing Pseudomonas
Mason catheter has been discontinued 06/25. Needed to be replaced 06/27
ID following
DM type II with Hyperglycemia
- Continue glycemic protocol as indicated
CONY. (07/02)
- Overall positive fluid balance by 3 L
- Ringer lactate 500 mL bolus, initiate D5W infusion in view of hypernatremia
- Start pressors to keep MAP above 65
DVT prophylaxis: -Lovenox
GI prophylaxis, pantoprazole
Prognosis is guarded
Full code
Family Discussions
Xiomara-Goals of care discussion 07/02. I called patient's and updated about patient's current condition. Considering lack of significant progress over the days and now worsening encephalopathy, developing hypotension, increasing pressor
requirement and CONY, overall prognosis is very poor. I brought up the option of pursuing more comfort focused care. Patient's was appreciative of the input and wants to talk to other care providers including infectious disease and surgery
service.
Diagnostic Data
Chest x-ray 06/08/2025: Reviewed, ET tube in place. Left lower lobe airspace disease. Cardiomegaly
CT abdomen pelvis 06/05/2025: The patient is significantly distended, and much of the abdominal and upper pelvic soft tissues extending anterior and to the left of the [id number], which limits evaluation, as it becomes difficult to confidently
follow the loops of bowel. There is distention of the rectum with air and stool, measuring 9.3 cm in diameter. There is marked distention of the sigmoid colon which extends into the right and central upper abdomen, with the sigmoid colon measuring
up to 18 cm in diameter. The sigmoid colon contains a moderate to large amount of stool, mainly inferiorly. There appears to be moderate distention of the rest of the visualized colon. Small bowel loops are present, and do not appear to be
significantly distended, similar appearance to prior examination. Of note, the cecum cannot be confidently identified on the present examination. No gross evidence of free intraperitoneal air. There is patchy parenchymal opacity within the
visualized lower lungs, most likely atelectasis. A component of pneumonia is also possible, although felt to be less likely. There is no significant pleural effusion and no significant pericardial effusion. Coronary artery calcifications are
present. Please correlate with symptoms of and risk factors for coronary artery disease, with further workup as clinically appropriate. Of note, the stomach is not distended.
ECHO 04/28/25: Left ventricle is moderately dilated with moderately reduced systolic function; left ventricular ejection fraction is 35% by modified Avery's method. Global hypokinesis. Mild concentric left ventricular hypertrophy. Moderate
concentric left ventricular hypertrophy. Stage I diastolic dysfunction suggestive of abnormal relaxation. Mildly dilated right ventricle with low normal RV function.
Mild mitral regurgitation. Sclerotic aortic valve with aortic annular calcification and peak and mean gradients of 23and 12 mmHg, respectively. Estimated BORA is 1.5 cm2., using an LVOT of 1.9 cm. No aortic regurgitation seen. Mild aortic stenosis.
Mild tricuspid regurgitation. Estimated pulmonary artery pressure of 50-55 mmHg, assuming a right atrial pressure of 3-8 mmHg. Compared to previous echo 12/26/24, the PA pressure has increased from 35 to 55 mmHg. LVEF may have improved slightly
from 25 to 35%. Previous study did use Definity.
-----
Critical care statement: A total of 35 minutes of critical care time was provided for this patient today. This includes management of unstable vital signs, evaluation of the patient at bedside, reviewing the patient's pertinent medical records
including ventilator settings, arterial blood gases, radiographs, microbiology, laboratory evaluations and discussion with primary team, critical care nursing, and respiratory therapy.
Subjective Dataa
Subjective Data
Date of Service:
Date of Service: July 06, 2025
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
Subjective:
Remains vented, off pressors
MS still remain poor
on TPN
Objective Data
Data Reviewed
Vital Signs / I&O / Oxygen:
Vital Signs
Temp Pulse Resp BP Pulse Ox
99.2 F 96 25 143/65 99
07/06/25 04:06 07/06/25 06:00 07/03/25 17:30 07/05/25 20:58 07/06/25 06:00
Intake and Output
07/05/25 07/06/25 07/07/25
06:59 06:59 06:59
Intake Total 3803.6 / 3931.6 2854.0 / 2854.0
Output Total 3230 / 3230 4795 / 4795
Balance 573.6 / 701.6 -1941.0 / -1941.0
SaO2 [CPAP/PSV] 89
SaO2 [ASV] 98
SaO2 [A/C] 98
SaO2 99
Nasal Cannula flow liters per 3
minute
Physical Exam
General: Comfortable (Currently on mechanical ventilation), Other (Large neck, obese) and Other (chronically ill appearing)
HEENT: Normocephalic, Anicteric and Tracheotomy
Cardiovascular: S1-S2, Regular Rhythm (Tachycardic), Murmur (1-2/6 systolic murmur) and Peripheral Edema (chronic venous stasis changes, BL 2+)
Respiratory: Wheeze (n), Crackles (minimal, BL), Rhonchi (n), Non-Labored Respirations (but tachypneic, shallow breaths) and Other (Tracheostomy)
GI: Soft, Distended (Morbidly obese), Non Tender and Other (Colostomy with trace amount of stool, 3 additional drains placed by IR service, continues with serous output)
Neurology: Lethargic, Non Verbal and Other (diminishing MS, not following commands)
Skin: Cyanosis (n), Jaundice (n) and Rash (n)
Labs/Micro/Reports
Lab Data
07/06/25 03:25
07/06/25 03:25
Laboratory Results
07/05/25
12:48
APTT 29.9
Microbiology
06/29/25 18:25 Abdomen Wound Culture - Final
No growth
06/29/25 18:25 Abdomen Gram Stain - Final
06/29/25 18:25 Abdomen Anaerobic Culture - Final
NO ANAEROBES ISOLATED
07/02/25 10:09 Blood/Venous Blood Culture - Preliminary
No Growth in 72 hours- Final report to follow
07/02/25 10:03 Blood/Venous Blood Culture - Preliminary
No Growth in 72 hours- Final report to follow
--- NOTE | 2025-07-06 08:18 | W.PN.ID1 ---
Date of Service
Date of Service: July 06, 2025
Today's Communication
Continue antibiotics.
Assessment / Plan
# Rectal perforation (06/29) with large left intra-abd abscess
- s/p washout 07/03
# Fever
# Leukocytosis
# Septic shock
# MDR- carbapenem-resistant Pseudomonas
- 06/29 s/p IR perc drain placement
abscess cx's neg to date
- OR cultures pending
- declined comfort measures and wishes to proceed with OR even though high surgical risk.
- Pseudomonas (from sputum) carbapenem-resistant - suspect in abdomen also.
- Has been on prolonged IV abx's since
- Continue current regimen cipro 400mg IV q12 (d#6), Zosyn (d#6), Vancomycin (d#8)
- Continue empiric Micafungin (d#4)
- Prognosis extremely guarded.
- Patient remains critically ill, vent-dependent, in ICU
# Colonic inertia with megacolon; status post ex lap, decompression, colostomy, stool leakage into the abdomen requiring washout 06/08/2025
# Recent purulent peritonitis
# Recent PNA with Pseudomonas
# VDRF s/p trach 06/25/25
# On TPN
- 06/08/25 Exploratory laparotomy, lysis of adhesions, sigmoidectomy, decompression of right colon, abdominal washout, creation of end descending colostomy, umbilical hernia repair
- No OR cx
- Blood cultures neg
- 06/15 s/p bronch with airway clearance; cx Pseudomonas
- 06/19 Colorectal opened midline abd distal incision. cx cx Pseudomonas, mixed anaerobes
- 06/20 aspiration/drainage of right abdominal peritoneal collections x 2. 1 of 2 cx : Pseudomonas
-06/28 Sputum CR -Pseudomonas
- 06/29 CXR: improving opacities
- s/p 10d empiric micafungin
- s/p Vancomycin IV x 6d previously
- s/p Zosyn(8d) -> meropenem (12d) -> cipro/zosyn
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
HFrEF
HTN
DM
Afib
HLD
Colonic Inertia / Dysmotility
Chronic opioid dependence
Advanced bilateral lower extremity venous insufficiency
Morbid obesity (BMI~43)
Chief Complaint
-: Fever, Leukocytosis and Other (Purulent peritonitis)
Subjective / Review of Systems
Patient seen and examined. No significant change overnight. Low-grade fevers noted.
Vital Signs / Physical Exam
Vital Signs
Vital Signs
Temp Pulse Resp BP Pulse Ox
99.2 F 96 25 143/65 98
07/06/25 04:06 07/06/25 06:00 07/03/25 17:30 07/05/25 20:58 07/06/25 07:29
Physical Exam
Constitutional: Acutely Ill and Chronically Ill
Eyes: No Conjunctival Hemorrhage and Sclera Anicteric
Oropharyngeal: Other (Tracheostomy to vent)
Cardiovascular: Regular Rate and S1/S2 (tachycardic); Negative S3/S4
Pulmonary: Rhonchi (scattered) and Other (+trach, on vent)
Gastrointestinal: Soft, Distended, Decreased Bowel Sounds and Other (Upper abdominal drains with ongoing but decreasing drainage. Ostomy in place)
Genito-Urinary: Negative CVA Tenderness
Extremities: Edema and Venous Insufficiency (Bilateral lower extremities)
Wound: Other (Lower abdominal wound dehisced with packing in place. No purulence.)
Neurological: Other (Responsive to voice and touch.)
Lines: PICC
Objective Data
Lab Data
Lab Results
07/06/25 03:25
07/06/25 03:25
PT 16.1 Sec (11.4-14.6) H 07/02/25 18:47
INR 1.24 07/02/25 18:47
APTT 29.9 Sec (23.4-35.0) 07/05/25 12:48
Estimated Creat Clear 73 ml/min 07/06/25 03:25
Lactic Acid 1.2 mmol/L (0.7-2.0) 07/04/25 05:13
Total Bilirubin 0.8 mg/dl (0.2-1.3) 07/03/25 15:54
AST 21 U/L (17-59) 07/03/25 15:54
ALT 14 U/L (0-50) 07/03/25 15:54
Alkaline Phosphatase 91 U/L (38-126) 07/03/25 15:54
C-Reactive Protein > 270.00 mg/L (0.0-10.00) H 06/11/25 03:22
Most recent labs reviewed.
Micro Results:
06/29/25 18:25 Wound Culture - Final
Abdomen No growth
Gram Stain - Final
06/29/25 18:25 Anaerobic Culture - Final
Abdomen NO ANAEROBES ISOLATED
07/02/25 10:09 Blood Culture - Preliminary
Blood/Venous No Growth in 72 hours- Final report to follow
07/02/25 10:03 Blood Culture - Preliminary
Blood/Venous No Growth in 72 hours- Final report to follow
06/27/25 10:17 Blood Culture - Final
Blood/Venous No Growth - Final Report
06/27/25 09:56 Blood Culture - Final
Blood/Venous No Growth - Final Report
06/28/25 15:42 Respiratory Culture - Final
Sputum Pseudomonas aeruginosa
Pseudomonas aeruginosa#2
Gram Stain - Final
06/15/25 10:08 Fungal Culture - Preliminary
Bronch Left Lower Lobe Evelyn albicans
06/20/25 11:01 Fungal Culture - Preliminary
Bronch Right Lower Lobe Culture in progress.
Positive cultures are reported as soon as detected.
Final report to follow in four to five weeks.
06/20/25 16:38 Body Fluid Culture - Final
Peritoneal Fluid Gram Stain - Final
06/20/25 16:34 Body Fluid Culture - Final
Peritoneal Fluid Pseudomonas aeruginosa
Gram Stain - Final
06/19/25 09:59 Wound Culture - Final
Abdomen Pseudomonas aeruginosa
Gram Stain - Final
06/19/25 09:59 Anaerobic Culture - Final
Abdomen
06/20/25 11:01 Respiratory Culture - Final
Bronch Right Lower Lobe Pseudomonas aeruginosa
Gram Stain - Final
06/20/25 11:01 Acid Fast Bacilli Smear - Preliminary
Bronch Right Lower Lobe Acid Fast Bacilli Culture - Preliminary
06/17/25 13:11 MRSA Screen - Final
Nose No Methicillin Resistant Staphylococcus aureus isolated.
06/13/25 12:07 Blood Culture - Final
Blood/Venous No Growth - Final Report
06/13/25 12:07 Blood Culture - Final
Blood/Venous No Growth - Final Report
06/15/25 10:08 Acid Fast Bacilli Smear - Preliminary
Bronch Left Lower Lobe Acid Fast Bacilli Culture - Preliminary
06/15/25 10:08 Respiratory Culture - Final
Bronch Left Lower Lobe Pseudomonas aeruginosa
Gram Stain - Final
06/14/25 11:22 Respiratory Culture - Final
Tracheal Aspirate Pseudomonas aeruginosa
Gram Stain - Final
06/11/25 09:27 Blood Culture - Final
Blood/Venous No Growth - Final Report
06/11/25 09:59 Blood Culture - Final
Blood/Venous No Growth - Final Report
06/06/25 07:57 MRSA Screen - Final
Nose No Methicillin Resistant Staphylococcus aureus isolated.
Imaging:
06/24/25 CXR: Slightly increased basilar predominant airspace opacities, worse on the left. Findings may be related to pneumonia or worsening atelectasis.
06/18/25 CT c/a/p: Suspected moderate volume mildly complex presumed free fluid in the abdomen, overall increased in volume in comparison to recent prior study, most prominently located in the right subhepatic region, right subdiaphragmatic region
and likely left abdomen/pelvis.
06/16/25 CXR: There is moderate airspace disease in right lower lung field concerning for pneumonia. There is obscuration of the left hemidiaphragm suggesting left lower lobe pneumonia
06/15/25 CXR: No pneumothorax status post bronchoscopy. Progressive homogeneous increased retrocardiac opacity. Suspect mild left perihilar and right infrahilar opacity which could represent atelectasis or pneumonia.
06/13/25 CT a/p: Very limited study. Small volume fluid in the abdomen, particularly in the left abdomen mildly complex. As this fluid is incompletely included, it cannot be determined whether this totally represents likely free fluid or combination
of free fluid and abnormal focal fluid collection. Additional small abnormal focal fluid collections cannot be excluded on the basis of this markedly limited study. Apparent recent prior partial sigmoidectomy with large volume stool seen in the
residual sigmoid colon and rectum.
06/10 CXR: Stable CHF and bibasilar atelectasis and/or pneumonia.
06/08/25 CXR: Diffuse marked colonic dilation. Measurement of caliber of the upper colon is slightly greater then obstruction series of June 07, 2025. Multiple air-fluid levels compatible with stasis. Moderate amount of stool within the inferior
aspect of the right colon as well as within the rectum. No gross evidence for free intraperitoneal air.
06/05/25 CT a/p: Significant gaseous distention of a large portion of the colon. This contributes to limitation of this examination, as the patient cannot be fully included on the [id number] of the CT scanner. If there can be some distal colonic
decompression, repeat scan could be considered, when hopefully the patient could be entirely included on the [id number] of the exam. No gross evidence for free intraperitoneal air. Patchy parenchymal opacity within the visualized lower lung, most
likely atelectasis. Pneumonia is a differential consideration, felt to be less likely based on morphologic appearance.
[2025-07-06] MEDS: SANTYL OINTMENT 1 APPLIC TOPICAL (08:19)
[2025-07-06] MEDS: DESENEX/MITRAZOL/ZEASORB 1 APPLIC TOPICAL ×2 (08:19→23:02)
[2025-07-06] MEDS: NSS (PRESERVATIVE FREE) 10 ML IV (08:19)
[2025-07-06] MEDS: HYDROPHOR 1 APPLIC TOPICAL (08:19)
[2025-07-06] MEDS: PROTONIX IV 40 MG IV (08:19)
[2025-07-06 08:26] LABS: Glucose - Point of Care 120 mg/dl (70-99)
--- NOTE | 2025-07-06 09:00 | PTCARENOTE ---
pt lethargic , opens eyes to pain , occasionally moves upper extremities non purposeful , NSR with PVC on monitor , weaning down 02 on vent , suctioning clear sputum via trac , hypernatremia , plan for pt to start with D5 and Lasix IV , pt to start
trickle tube feeds
--- NOTE | 2025-07-06 09:29 | PHA.VAN.FU ---
Vancomycin Assessment / Plan
- Assessment
Renal Function: Stable (BUN trending up)
WBC's are: Stable
In the past 24 hrs, patient has been: Febrile
Concomitant Antimicrobials: Micafungin and Piperacillin/tazobactam
- Assessment - Therapeutic Drug Monitoring
Random Level: 17.7- drawn ~19 hours after previous dose of 1250mg
- Dosing Plan
Continue: Will give vanc 1250mg IV now and start vanc 1250mg Q24h 07/07 at 0600.
- Monitoring Plan
No level(s) ordered at this time: Will f/u with renal function and reorder levels in a few days.
- Follow Up
Pharmacy will continue to follow.
Vancomycin Follow UP
- -
Patient Age: 64
Patient Sex: Male
Vancomycin Day #: 9
Indication: Gi / Intra-Abdominal
Requesting Provider: Dr. Quispe
Pertinent Antimicrobial Allergies:
NKDA
Height / Weight:
Height 6 ft 3 in
Actual Weight 133.8 kg
Pertinent Past Medical History: BMI ~ 40
- Vital Signs / Lab Results
Temp Pulse Resp BP Pulse Ox
100.4 F H 96 25 143/65 98
07/06/25 08:31 07/06/25 06:00 07/03/25 17:30 07/05/25 20:58 07/06/25 07:29
Lab Results - Hematology
07/03/25 07/03/25 07/04/25
15:04 15:53 04:50
WBC Cancelled 16.7 H 24.7 H
07/05/25 07/05/25 07/06/25
03:26 12:48 03:25
WBC 20.9 H 18.8 H 17.9 H
Lab Results - Chemistry
07/03/25 07/03/25 07/04/25
15:04 15:54 04:50
BUN Cancelled 61 H 67 H
Creatinine Cancelled 1.6 H 1.7 H
Estimated Creat Clear Cancelled 70 66
Albumin 2.3 L
07/05/25 07/06/25
03 03:25
BUN 79 H 83 H
Creatinine 1.5 H 1.5 H
Estimated Creat Clear 74 73
Albumin
07/04/25
05:13
Lactic Acid 1.2
Microbiology Results
06/29/25 18:25 Wound Culture - Final
Abdomen No growth
Gram Stain - Final
06/29/25 18:25 Anaerobic Culture - Final
Abdomen NO ANAEROBES ISOLATED
07/02/25 10:09 Blood Culture - Preliminary
Blood/Venous No Growth in 72 hours- Final report to follow
07/02/25 10:03 Blood Culture - Preliminary
Blood/Venous No Growth in 72 hours- Final report to follow
Therapeutic Drug Monitoring
Vancomycin Peak 28.0 ug/ml (18-26) H 06/30/25 21:13
Vancomycin Trough 16.9 ug/ml (5-20) 07/01/25 04:54
Random Vancomycin 17.7 ug/ml 07/06/25 03:25
[2025-07-06] MEDS: VANCOCIN 275 MG IV (09:58)
[2025-07-06 10:09] LABS: Glucose - Point of Care 120 mg/dl (70-99)
[2025-07-06] MEDS: D5W 1000 IV (10:27)
[2025-07-06] MEDS: LASIX 40 MG IV (10:27)
[2025-07-06 10:43] LABS: APTT 29.0 Sec (23.4-35.0)
[2025-07-06] MEDS: HEPARIN 25000 UNITS/250 ML IV (10:59)
[2025-07-06 11:18] LABS: Hematocrit 27.3 % (39.0-52.0); Hemoglobin 7.9 g/dL (13.0-18.0); Mean Corp Hgb Conc. 28.9 g/dL (33.0-37.0); Mean Corpuscular Volume 89.5 fL (80.0-94.0); Platelet Count 189 10^3/uL (130-400); Red Cell Dist. Width 16.8 % (11.5-14.5)
[2025-07-06] MEDS: MYCAMINE 105 MG IV (11:30)
[2025-07-06] MEDS: NOVOLIN R INSULIN INFUSION 100 IV (11:33)
--- NOTE | 2025-07-06 12:46 | W.PN.CRS1 ---
Today's Communication / Plan
-
As below
Assessment/Plan
-
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
obstipation associated with megacolon. WBC 11.[address] showing gaseous distention of the colon, diameter of the sigmoid up to 18 cm in diameter. He received a dose of neostigmine, which failed. He underwent attempt at decompressive sigmoidoscopy,
but encountered too much stool. Due to refractory nature of his issue, we proceeded with surgery.
06/08 exlap, sigmoidectomy, end-colostomy; iatrogenic spillage of stool - controlled and abdomen washed out, no colonic ischemia or perforation
06/15 and 06/20 bronch for mucous plugging
06/19 midline incision opened up, +pseudomonas/mixed aneerobes
06/20 IR drains x2 to RUQ +pseudomonas in 1 of 2
06/25 Tracheostomy placement
06/29- IR successful ultrasound-guided drainage catheter placement into a left-sided intraperitoneal fluid collection.
07/03 exlap, fecal disimpaction, flex sig, SBR and abdominal washout with placement of G-tube
Tmax of 100.6, VSS
WBC 17.9 from 18.8, Hb 8.3 from 9.0, NA 157, CR 1.5 from 1.5, UOP 3.0L
Plan:
- Continue TPN/Insulin gtt; appreciate nutrition
�Will start trickle tube feeds at 10 and hold there
�Will add free water per primary for hyponatremia
-Continue Zosyn and Vanco, appreciate ID
- Continue morales given retention with removal
- OK to start IV heparin from surgical standpoint
�Continue CHRISTINE and IR drains, will consider discontinuing if leukocytosis and stability continues
�Appreciate hospitalist and ICU teams
Subjective Data
Procedure
06/08/25- Exploratory laparotomy, lysis of adhesions, sigmoidectomy, decompression of right colon, abdominal washout, creation of end descending colostomy, umbilical hernia repair
Subjective Data
Date of Service: July 06, 2025
Per the nurse, no events overnight. Has weaned off of pressors and sedation, but does not have purposeful movements. Grimaces to pain.
Ostomy output was not recorded, about 50�100 in the ostomy bag. Plan to start heparin drip today.
Objective Data
-
Vital Signs
Temp Pulse Resp BP Pulse Ox
100.7 F H 94 25 110/53 96
07/06/25 11:24 07/06/25 10:27 07/03/25 17:30 07/06/25 10:27 07/06/25 11:13
Intake & Output
07/05/25 07/06/25 07/07/25
06:59 06:59 06:59
Intake Total 3803.6 / 3931.6 2854.0 / 2854.0
Output Total 3230 / 3230 4795 / 4795
Balance 573.6 / 701.6 -1941.0 / -1941.0
Intake:
IV fluids (Total) 936.6 / 968.6 313.0 / 313.0
Double concentrated Levophed 45.1 / 45.1
Insulin 156 / 164 158 / 158
Levophed gtt 564.6 / 579.6 64.9 / 64.9
Vasopressin gtt 216 / 225 45 / 45
IV piggybacks 575 / 575 315 / 315
TPN/PPN 2277 / 2373 2015
Amount instilled into GI Tube (
Total)
Gastrostomy
Output:
Liquid stool amount 100 / 100 350 / 350
Colostomy 100 / 100 350 / 350
Drain Output (Total)
Left Middle Abdomen
Right Lower Abdomen Milton- 0 / 0
Vo
Right Middle Abdomen Milton- 0 / 0
Vo B Placed in IR
Gastrointestinal tube output ( 250 / 250 1135 / 1135
Total)
Gastrostomy 250 / 250 1135 / 1135
Urine, Morales 2870 / 2870 3300 / 3300
Lab Results
07/06/25 10:12
07/06/25 03:25
Physical Exam
-
General: No Acute Distress and Other (Alert and oriented x 0; does not respond to commands or verbal stimuli; grimaces to painful stimuli, intact pupillary reflex)
HEENT: Grossly Normal and Other (Trach in place)
Abdomen: Soft, Non Distended, Non Tender and Other (Ostomy pink with stool in the ostomy bag; G-tube clamped; right upper CHRISTINE-10 serous, right mid CHRISTINE-0, right lower CHRISTINE-10 serosanguineous)
Skin: Warm and Dry
Wound: Other (Midline incision closed with fred, no surrounding erythema or purulent drainage; inferior aspect of midline incision open with packing, no purulence or necrosis, healthy subcutaneous tissue)
[2025-07-06 14:14] LABS: Glucose - Point of Care 157 mg/dl (70-99)
--- NOTE | 2025-07-06 14:54 | PTCARENOTE ---
no change in assessments
--- NOTE | 2025-07-06 15:13 | W.PN.HOSP.TC ---
Today's Communication/Plan
-
Continue management in the ICU.
Assessment / Plan
Assessment / Plan
Impression:
Mr. Knapp is a 64-year-old male with medical history of HFpEF, A-fib/flutter, IDDM, obesity, chronic pain with subsequent opioid dependence, and chronic constipation with colonic dysmotility who presented with shortness of breath, abdominal
bloating and discomfort, constipation. His last bowel movement was 2 weeks prior to arrival. He is having increasing difficulty breathing due to worsening abdominal distention. He has had multiple similar episodes since September 2024 and has
previously required decompression. He has been treated with enemas and neostigmine previously. Abdominal imaging showed significant colonic distention with air-filled loops of bowel. He also had patchy parenchymal opacities within the mid to
lower lungs. He was mildly hypoxic and has been started on antibiotics. He has remained afebrile with a mild leukocytosis of just over 12,000. He has been admitted for further evaluation and management.
Seen by GI, failed neostigmine, enema, status post nonsuccessful decompressive flexible sigmoidoscopy.
Surgery team consulted.
s/p Exploratory laparotomy, lysis of adhesions, sigmoidectomy, decompression of right colon, abdominal washout, creation of end descending colostomy, umbilical hernia repair on 06/08
admitted to ICU postoperatively, intubated.
Patient had fever,Infectious disease consult, started on zosyn.
Patient was still running fever, added micafungin.
CT chest: New right lower lobe consolidation with air bronchograms, atelectasis versus pneumonia, Possible small bilateral pleural effusions.
CT abdomen/pelvis shows: Small volume fluid in the abdomen, particularly in the left abdomen mildly complex. As this fluid is incompletely included, it cannot be determined whether this totally represents likely free fluid or combination of free
fluid and abnormal focal fluid collection. Additional small abnormal focal fluid collections cannot be excluded on the basis of this markedly limited study
S/p trach
Assessment/Plan:
Colonic dysmotility/ileus:
- Abdomen remained significantly distended despite multiple medical enemas and subsequent bowel movements
- Upgraded to IMU 06/07, pushed 4 mg neostigmine around 1:30 PM, no significant peristaltic response
- Ultimately required surgical intervention, brought to the OR 06/08 for ex lap with lysis of adhesions and sigmoidectomy with end descending colostomy, decompression of right colon, abdominal washout and umbilical hernia repair
- ICU postoperatively, intubated
- Colorectal surgery following, colostomy with brown stool output
- IR placed 2 abdominal drains 06/20 with serous output, a third drain was placed 06/29 for new collection
- Rectum was distended with stool and was manually disimpacted 07/01
- Brought back to the OR on 07/03 for washout, disimpaction, and PEG placement
- Continue TPN, holding tube feeds for now however may be able to start trickle feeds if continues to have good stoma outputs
07/06
Start trickle feeding
Metabolic encephalopathy:
- Unclear etiology but likely secondary to critical illness
- Currently responsive only to noxious stimuli, off of sedation
- CT brain 07/01 shows no acute intracranial abnormality, possible mastoiditis
- No findings on ABG to explain mental status
- Neurology following, EEG showed generalized slowing indicative of toxic/metabolic encephalopathy, no focal epileptiform activity
07/06
Hypernatremia, will start D5W
Septic shock, requiring pressors:
- Status post sigmoidectomy with multiple intra-abdominal fluid collections and pulmonary infection
- Respiratory culture from 06/28 growing Carbapenem resistant Pseudomonas
- Brought back to the OR 07/03 for abdominal washout
- Antibiotics Zosyn and IV vancomycin
- Restarted micafungin
- Vasopressors currently on hold
- Seroquel discontinued 06/27
Acute hypoxic respiratory failure (currently intubated in the ICU postoperatively)
- Continue mechanical ventilation, ETT replaced 06/19 by cq developer, trach placed 06/25
- Underwent bronchoscopy with BAL left lower lobe 06/15 by cq developer, cultures growing Pseudomonas, repeat bronchoscopy with BAL 06/20 with aspiration of copious secretions
- Continuing IV antibiotics as outlined above
- Hypertonic nebulized saline 3 times a day with albuterol, aggressive chest PT
- Additional Lasix pushes as needed
Hypernatremia:
- Worsening again, resume D5W
paroxismal A-fib/flutter:
- Currently rate controlled, holding home metoprolol, continue home amiodarone 200 mg at night
- Holding home Xarelto, have transitioned to therapeutic Lovenox which is on hold currently for OR
IDDM:
- Insulin drip.
HFrEF:
- Acute on chronic chronic
- Holding home metoprolol succinate 100 mg
- Lasix pushes as needed, holding spironolactone, monitor daily weights
- No need for afterload reduction due to hypotension
CODE STATUS: Full code
DVT prophylaxis: Surgery okay with IV heparin
Diet: TPN-trickle feed
Disposition: Continue management in the ICU.
Total time spent on today's encounter was 74 minutes which included time spent in counseling the patient/family regarding diagnosis and treatment plan as listed above, goals of care, and symptom management. Case was discussed with nursing staff,
specialists, and care coordinators/case management. All labs and imaging personally reviewed by me. Remainder the time spent in detailed review of previous records, lab data, imaging, and other medical provider documentation.
Anticipated Discharge: > 48 hours
Subjective/Interval History
-
Date of Service: July 06, 2025
Patient still critically ill in ICU
Objective Data
-
Labs:
Laboratory Results
07/06/25 07/06/25
03:25 10:12
WBC 17.9 H 17.6 H
Hgb 8.3 L 7.9 L
Hct 28.4 L 27.3 L
Plt Count 187 189
APTT 29.0
Sodium 157 H
Potassium 3.6
Chloride 120 H
Carbon Dioxide 32 H
BUN 83 H
Creatinine 1.5 H
Glucose 119 H
Calcium 8.8
Vital Signs:
Vital Signs
Temp Pulse Resp BP Pulse Ox
100.7 F H 101 25 110/53 96
07/06/25 11:24 07/06/25 14:00 07/03/25 17:30 07/06/25 10:27 07/06/25 14:00
I&O
07/05/25 07/06/25 07/07/25
06:59 06:59 06:59
Intake Total 3803.6 / 3931.6 2854.0 / 2956.0 1503 / 1503
Output Total 3230 / 3230 4795 / 4795 2900 / 2900
Balance 573.6 / 701.6 -1941.0 / -1839.0 -1397 / -1397
Physical Exam
-
General: Appears in Distress and Obese
HEENT: Normocephalic, Atraumatic, Moist Mucous Membranes, Tracheotomy, Tracheostomy Collar, No Ptosis, PERRLA, Nose Appears Normal and Other
Respiratory: Rales, Rhonchi and Non Labored Respirations
Cardiac: Regular Rhythm and S1/S2
Breast: Deferred by me
GI: Other (Colostomy bag, midline incision clean-PEG tube)
Musculoskeletal: No Clubbing and No Cyanosis
Skin: Warm
Psych: Other (Minimal communication)
[2025-07-06 16:42] LABS: Glucose - Point of Care 132 mg/dl (70-99)
[2025-07-06 18:10] LABS: Glucose - Point of Care 124 mg/dl (70-99)
--- NOTE | 2025-07-06 18:24 | PTCARENOTE ---
pt temp up to 101. 101.3 , Dr Arvizu aware and blood cultures ordered , pt at bedside and updated on plan of care
[2025-07-06] MEDS: VENTOLIN NEBULES 2.5 MG INH (19:25)
[2025-07-06 20:06] LABS: Glucose - Point of Care 139 mg/dl (70-99)
[2025-07-06] MEDS: LIPITOR 40 MG TUBE (20:57)
[2025-07-06] MEDS: Parenteral Nutrition, Central 2300 IV (20:58)
[2025-07-06] MEDS: PACERONE 200 MG TUBE (20:58)
[2025-07-06 21:12] LABS: APTT 36.3 Sec (23.4-35.0)
[2025-07-06] MEDS: TYLENOL ORAL SOLUTION 650 MG PO (21:27)
--- NOTE | 2025-07-06 21:56 | PTCARENOTE ---
Assumed care of pt at 1900. Received pt on insulin drip her critical care glycemic protocol, Heparin drip at 1500 units/hr, TPN, and D5W. Vent settings: AC 26/500/60/12. SR/ST on monitor 90s-100s, frequent PVCs. SpO2 94-96% on current vent settings.
Blood cx x2 obtained at start of shift. Pt febrile, T-max 101.4 so far, medicated with PRN Tylenol. Assessment as documented in nursing shift assessment flowsheet.
[2025-07-06 22:04] LABS: Glucose - Point of Care 139 mg/dl (70-99)
[2025-07-06 23:11] LABS: APTT 32.4 Sec (23.4-35.0)
[2025-07-07] MEDS: ZOSYN 100 IV ×5 (00:06→23:57)
[2025-07-07 00:13] LABS: Glucose - Point of Care 151 mg/dl (70-99)
--- NOTE | 2025-07-07 01:19 | PTCARENOTE ---
Midnight assessment unchanged. Remains on insulin and heparin drips. TF residual 300 mL both times it was checked this shift. A Line dressing and tubing/flush bag changed.
[2025-07-07] MEDS: HEPARIN 25000 UNITS/250 ML IV ×2 (02:10→14:38)
[2025-07-07] MEDS: NOVOLIN R INSULIN INFUSION 100 IV ×2 (02:12→14:39)
[2025-07-07] MEDS: D5W 1000 IV ×2 (02:16→17:53)
[2025-07-07 02:49] LABS: Glucose - Point of Care 135 mg/dl (70-99)
[2025-07-07 03:37] LABS: Venous Blood Gas B.E. 6.7 mmol/L (-4 to +4); Venous Blood Gas O2 Sat % 99.4 %
[2025-07-07 03:52] LABS: Hematocrit 27.2 % (39.0-52.0); Hemoglobin 7.7 g/dL (13.0-18.0); Mean Corp Hgb Conc. 28.3 g/dL (33.0-37.0); Mean Corpuscular Volume 88.6 fL (80.0-94.0); Platelet Count 165 10^3/uL (130-400); Red Cell Dist. Width 16.8 % (11.5-14.5)
[2025-07-07 03:55] LABS: APTT 43.0 Sec (23.4-35.0)
[2025-07-07 04:01] LABS: Blood Urea Nitrogen 86 mg/dl (9-20); Calcium 8.2 mg/dl (8.4-10.2); Carbon Dioxide 33 mmol/L (22-30); Chloride 118 mmol/L (98-107); Estimated Creatinine Clearance 65 ml/min; Glucose 159 mg/dl (70-99); Potassium 3.5 mmol/L (3.5-5.1); Sodium 156 mmol/L (135-145); Triglycerides 138 mg/dl (10-149); eGFR 44.46
[2025-07-07 04:19] LABS: Glucose - Point of Care 176 mg/dl (70-99)
[2025-07-07 04:31] VITALS: BMI 36.7
--- NOTE | 2025-07-07 05:17 | PTCARENOTE ---
Assessment mostly unchanged. Pt laid flat to pull up in bed with lift, then turned to the right, pt did not tolerate this and dropped his SpO2 to 85% and dropped his BP into the 60s-70s. SpO2 able to recover to 89% on its own but BP still soft with
MAP not reaching 65. Levophed re-ordered and now infusing at 2mcg/min, see med titration flowsheet/EMAR for details.
[2025-07-07] MEDS: TYLENOL ORAL SOLUTION 650 MG PO ×2 (06:02→14:31)
[2025-07-07] MEDS: VANCOCIN 275 MG IV (06:02)
[2025-07-07 06:12] LABS: Glucose - Point of Care 162 mg/dl (70-99)
[2025-07-07] MEDS: KCL ELIXIR 40 MEQ TUBE (06:20)
--- NOTE | 2025-07-07 07:31 | W.PN.INTV ---
Today's Communication / Plan
Recommendations
Adjust ventilator settings-attempt to wean FiO2
No change in PEEP
Nutrition per surgery
TPN
Antibiotics
Monitor temperature curve
Wean norepinephrine
Consider MRI head
Assessment
-
64-year-old male with a past medical history of cardiomyopathy, hypertension, DM type II, history of chronic opioid use due to chronic arthritis now on buprenorphine, history of ERASMO, venous insufficiency and chronic back pain who presented with
shortness of breath, abdominal distention. Found to have severe colonic distention. Initially treated with neostigmine, attempted sigmoidoscopy without attempt. Underwent exploratory laparotomy 06/08/2025-developed shock requiring vasopressors and
remained on mechanical ventilation. We were consulted on 06/09/2025.
Acute hypoxemic respiratory failure s/p intubation 06/08
s/p laparotomy
s/p Laparotomy, fecal disimpaction, flexible sigmoidoscopy, small bowel resection, abdominal washout and gastrostomy tube 07/03/25
pseudomonas PNA, w/ prolonged vent dependence s/p trach 06/25 (Shiley 8.0 XLT)
TME
Pseudoobstruction with megacolon, failed conservative management, s/p ex lap
Septic shock-peritonitis, intra-abdominal abscesses, concern for rectal perforation and LLL pneumonia
Acute on chronic heart failure with reduced ejection fraction, LVEF 35%, Stage I diastolic dysfunction
CONY
Prolonged QTc
Hypernatremia
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
Paroxysmal atrial flutter.
Hypertension
BPH
DM type II
chronic back pain
cardiomyopathy
venous insufficiency
history of ERASMO
severe osteoarthritis
chronic pain management due to arthritis
chronic buprenorphine use/narcotic use disorder
Pulmonary hypertension, estimated pulmonary artery systolic pressure 50-55
Morbid obesity
Plan
Sedation: none
Pain control: subutex, tylenol IV
Rass -3 to -4, goal 0
TME noted, EEG to evaluate for any nonconvulsive seizures--neg
Maintained off sedation > 4 days
Continues to be unresponsive except some response to sternal rub/grimacing
Hypernatremia an issue, remains on D5W
Chronic hypercapnia not the cause of mental status decline
CT head 07/01/2025-no acute intracranial abnormalities, mastoiditis
Consider MRI
Respiratory status remains tenuous
Continue on current ventilator settings
ABGs and VBG's noted-chronic hypercapnia, not acidotic at this point-compensated
Attempt to wean FiO2-currently at 0.6
PEEP currently at 12
Hemodynamics remain variable
Norepinephrine continues-attempt to wean
Follow lactate if needed
Monitor QTc
Replace potassium and magnesium as needed
PAF history, on outpatient Xarelto/history of cardioversion in January 2025/Amio PO
Heparin infusion, was held due to bloody secretions 06/25, enoxaparin p.m. started 06/26
Ok to resume heparin per surgery 07/06
Primarily group II PH related to underlying congestive heart failure
Continue to optimize intravascular volume, keep saturations above 90%, no indication for vasodilator therapy
Patient has been diuresing well with intermittent Lasix/hold now due to hypotension
Fluid balance +2.9 L over last 24 hrs
In view of hyponatremia, start D5W infusion (~6L FWD)
Diuresis as tolerated
Monitor renal function, electrolytes, intake/output, lower extremity edema and weight
Replace electrolytes as needed
Cultures reviewed
Continues with intermittent temperatures
Continue antibiotics per infectious disease
Infectious disease following-correspondence reviewed
S/p ex lap, sigmoidectomy and end colostomy, iatrogenic spillage of stool, peritonitis, umbilical hernia repair, 06/08/2025
Small-volume stool output noted in the ostomy bag.
TPN infusing/insulin gtt
Tube feeding stopped due to high residuals. Currently on suction, continues to have high residual--resume per surgery
06/18, CT chest abdomen pelvis pursued, fluid noted in the abdomen.
Purulent discharge from inferior margin of surgical site, bedside drainage on 06/19, sent for cultures. Growing Pseudomonas
06/20, IR guided peritoneal drains x 2 placed for intra-abdominal collections noted on imaging, Pseudomonas noted on peritoneal fluid culture
CT 06/29 concerning for large intraabdominal fluid collection as well as concern for rectal perforation with free air
06/29, s/p IR guided intraperitoneal drain placement, serous drainage noted
Colorectal surgery on case
s/p OR 07/03: Laparotomy, fecal disimpaction, flexible sigmoidoscopy, small bowel resection, abdominal washout and gastrostomy tube
Tolerated procedure, maintained NPO--Await surgery plan to liberate enteral nutrition
DVT prophylaxis-on heparin drip
GI prophylaxis-on pantoprazole
Nutrition-TPN and tube feeds-trickle at 10 mL/h
Bedside range of motion
Currently a full code-goals of care discussion ongoing-await discussions with who reportedly is coming in later today
Critical care statement: A total of 55 minutes of critical care time was provided for this patient today. This includes management of unstable vital signs, evaluation of the patient at bedside, reviewing the patient�s pertinent medical records
including radiographs, pressor management, ventilator management, microbiology, laboratory evaluations, and��discussion with primary team, consultants, pharmacy, nutrition, physical therapy, case management, charge nurse, critical care nursing, and
respiratory therapy.
Family Discussions
Xiomara-Goals of care discussion 07/02. I called patient's and updated about patient's current condition. Considering lack of significant progress over the days and now worsening encephalopathy, developing hypotension, increasing pressor
requirement and CONY, overall prognosis is very poor. I brought up the option of pursuing more comfort focused care. Patient's was appreciative of the input and wants to talk to other care providers including infectious disease and surgery
service.
Diagnostic Data
Chest x-ray 06/08/2025: Reviewed, ET tube in place. Left lower lobe airspace disease. Cardiomegaly
CT abdomen pelvis 06/05/2025: The patient is significantly distended, and much of the abdominal and upper pelvic soft tissues extending anterior and to the left of the [id number], which limits evaluation, as it becomes difficult to confidently
follow the loops of bowel. There is distention of the rectum with air and stool, measuring 9.3 cm in diameter. There is marked distention of the sigmoid colon which extends into the right and central upper abdomen, with the sigmoid colon measuring
up to 18 cm in diameter. The sigmoid colon contains a moderate to large amount of stool, mainly inferiorly. There appears to be moderate distention of the rest of the visualized colon. Small bowel loops are present, and do not appear to be
significantly distended, similar appearance to prior examination. Of note, the cecum cannot be confidently identified on the present examination. No gross evidence of free intraperitoneal air. There is patchy parenchymal opacity within the
visualized lower lungs, most likely atelectasis. A component of pneumonia is also possible, although felt to be less likely. There is no significant pleural effusion and no significant pericardial effusion. Coronary artery calcifications are
present. Please correlate with symptoms of and risk factors for coronary artery disease, with further workup as clinically appropriate. Of note, the stomach is not distended.
ECHO 04/28/25: Left ventricle is moderately dilated with moderately reduced systolic function; left ventricular ejection fraction is 35% by modified Avery's method. Global hypokinesis. Mild concentric left ventricular hypertrophy. Moderate
concentric left ventricular hypertrophy. Stage I diastolic dysfunction suggestive of abnormal relaxation. Mildly dilated right ventricle with low normal RV function.
Mild mitral regurgitation. Sclerotic aortic valve with aortic annular calcification and peak and mean gradients of 23and 12 mmHg, respectively. Estimated BORA is 1.5 cm2., using an LVOT of 1.9 cm. No aortic regurgitation seen. Mild aortic stenosis.
Mild tricuspid regurgitation. Estimated pulmonary artery pressure of 50-55 mmHg, assuming a right atrial pressure of 3-8 mmHg. Compared to previous echo 12/26/24, the PA pressure has increased from 35 to 55 mmHg. LVEF may have improved slightly
from 25 to 35%. Previous study did use Definity.
Subjective Dataa
Subjective Data
Date of Service:
Date of Service: July 07, 2025
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
Subjective:
Lethargic on the ventilator, minimally responsive, not following commands, sanchez secretions, unable to obtain review of systems
Review of Systems
General: Unobtainable - Pat Unresp
Objective Data
Data Reviewed
Vital Signs / I&O / Oxygen:
Vital Signs
Temp Pulse Resp BP Pulse Ox
101.4 F H 134 27 112/53 91
07/07/25 06:01 07/07/25 06:00 07/06/25 19:40 07/06/25 20:58 07/07/25 06:00
Intake and Output
07/06/25 07/07/25 07/08/25
06:59 06:59 06:59
Intake Total 2854.0 / 2956.0 5711 / 5711
Output Total 4795 / 4795 5243 / 5243
Balance -1941.0 / -1839.0 468 / 468
SaO2 [CPAP/PSV] 89
SaO2 [ASV] 98
SaO2 [A/C] 95
SaO2 91
Nasal Cannula flow liters per 3
minute
Physical Exam
General: Respiratory Distress (n), Comfortable (Currently on mechanical ventilation), Other (Large neck, obese) and Other (chronically ill appearing)
HEENT: Normocephalic, Anicteric and Tracheotomy
Cardiovascular: Regular Rhythm (Tachycardic), Murmur (1-2/6 systolic murmur) and Peripheral Edema (chronic venous stasis changes, BL 2+)
Respiratory: Wheeze (n), Crackles (minimal, BL), Rhonchi (n), Non-Labored Respirations (but tachypneic, shallow breaths) and Other (Tracheostomy)
GI: Soft, Distended (Morbidly obese), Non Tender and Other (Colostomy with trace amount of stool, 3 additional drains placed by IR service, continues with serous output)
Neurology: Lethargic, Non Verbal and Other (diminishing MS, not following commands)
Skin: Warm, Good Color, Cyanosis (n), Jaundice (n) and Rash (n)
Labs/Micro/Reports
Lab Data
07/07/25 03:27
07/07/25 03:27
Laboratory Results
07/06/25 07/06/25 07/06/25
10:12 18:11 19:11
APTT 29.0 Cancelled 32.4
07/06/25 07/07/25
20:50 03:26
APTT 36.3 H 43.0 H
Microbiology
06/20/25 11:01 Bronch Right Lower Lobe Fungal Culture - Preliminary
Culture in progress.
Positive cultures are reported as soon as detected.
Final report to follow in four to five weeks.
07/02/25 10:09 Blood/Venous Blood Culture - Preliminary
No Growth in 4 days- Final report to follow
07/02/25 10:03 Blood/Venous Blood Culture - Preliminary
No Growth in 4 days- Final report to follow
06/29/25 18:25 Abdomen Wound Culture - Final
No growth
06/29/25 18:25 Abdomen Gram Stain - Final
06/29/25 18:25 Abdomen Anaerobic Culture - Final
NO ANAEROBES ISOLATED
--- NOTE | 2025-07-07 07:48 | PN.DE.MGMTRT ---
Insulin Management
- -
07/07/2025: Diabetes Management Follow up
Patient admitted 06/05 with c/o difficulty breathing. Diabetes management consult 06/15. PMH 5 weeks of constipation with abdominal distention, HTN, A-Fib, CHF Prior to admission was taking Lantus 24 units daily with NovoLog 20 units AC and Farxiga 5
mg daily. A1C on admission 7.1%, Cr 1.5, eGFR 51.69 today.
Patient remains intubated and sedated. Information obtained from chart and patient nurse and pharmacist.
S/P OR 06/08 for lysis of adhesions, sigmoidectomy, with end descending colostomy and s/p tracheostomy 06/25, s/p OR for washout, disimpaction, PEG.
Receiving TPN. Was started on D5W yesterday, contributing to Hyperglycemia of >200.
Critical care glycemic protocol continued over weekend.
Glucose range 120 to 157, Patient has required 5 to 8 units of insulin per hour.
Will continue critical care glycemic protocol.
Discussed with nurse. Will cont to follow.
Diabetes History
- -
Type of Diabetes: 2 requiring insulin
Pre-Admission Diabetes Regimen
07/07/25
03:27
Creatinine 1.7 H
Lab Results
Hemoglobin A1c 7.8 % (4.0-5.6) H 06/22/25 03:20
Insulin Pump Settings
IP Diabetes Regimen
07/06/25 07/06/25 07/06/25
08:15 09:57 14:03
Glucose
POC Glucose 120 H 120 H 157 H
07/06/25 07/06/25 07/06/25
16:31 17:57 19:54
Glucose
POC Glucose 132 H 124 H 139 H
07/06/25 07/07/25 07/07/25
21:54 00:02 02:06
Glucose
POC Glucose 139 H 151 H 135 H
09/12/3007/07/25 07/07/25
03:27 04:08 06:01
Glucose 159 H
POC Glucose 176 H 162 H
Patient Education
[2025-07-07] MEDS: NSS (PRESERVATIVE FREE) 10 ML IV (07:55)
[2025-07-07] MEDS: PROTONIX IV 40 MG IV (07:55)
[2025-07-07] MEDS: SANTYL OINTMENT 1 APPLIC TOPICAL (07:55)
[2025-07-07] MEDS: LASIX 40 MG IV (07:56)
[2025-07-07] MEDS: HYDROPHOR 1 APPLIC TOPICAL (07:56)
[2025-07-07] MEDS: DESENEX/MITRAZOL/ZEASORB 1 APPLIC TOPICAL ×2 (07:56→19:31)
[2025-07-07 08:03] LABS: Glucose - Point of Care 152 mg/dl (70-99)
[2025-07-07 08:22] LABS: Glucose - Point of Care 152 mg/dl (70-99)
--- NOTE | 2025-07-07 08:40 | PHA.VAN.FU ---
Vancomycin Assessment / Plan
- Assessment
Renal Function: SCR Increasing
WBC's are: Trending Down
In the past 24 hrs, patient has been: Febrile
Concomitant Antimicrobials: piperacillin/tazobactam, micafungin
- Dosing Plan
Continue: Vanc 1250mg Q24H
- Monitoring Plan
Trough Level: 07/08 05:30
Monitoring Comments: BUN & SCR slightly increased - will keep scheduled and follow level
may need to transition back to dosing by level
- Follow Up
Pharmacy will continue to follow.
Vancomycin Follow UP
- -
Patient Age: 64
Patient Sex: Male
Vancomycin Day #: 10
Indication: Gi / Intra-Abdominal
Requesting Provider: Dr. Quispe
Pertinent Antimicrobial Allergies:
NKDA
Height / Weight:
Height 6 ft 3 in
Actual Weight 133.3 kg
Pertinent Past Medical History: BMI ~ 40
- Vital Signs / Lab Results
Temp Pulse Resp BP Pulse Ox
100.4 F H 134 27 112/53 93
07/07/25 07:52 07/07/25 06:00 07/06/25 19:40 07/06/25 20:58 07/07/25 07:44
Lab Results - Hematology
07/05/25 07/05/25 07/06/25
03:26 12:48 03:25
WBC 20.9 H 18.8 H 17.9 H
07/06/25 07/07/25
10:12 03:27
WBC 17.6 H 16.7 H
Lab Results - Chemistry
07/05/25 07/06/25 07/07/25
03:26 03:25 03:27
BUN 79 H 83 H 86 H
Creatinine 1.5 H 1.5 H 1.7 H
Estimated Creat Clear 74 73 65
Microbiology Results
06/20/25 11:01 Fungal Culture - Preliminary
Bronch Right Lower Lobe Culture in progress.
Positive cultures are reported as soon as detected.
Final report to follow in four to five weeks.
07/02/25 10:09 Blood Culture - Preliminary
Blood/Venous No Growth in 4 days- Final report to follow
07/02/25 10:03 Blood Culture - Preliminary
Blood/Venous No Growth in 4 days- Final report to follow
06/29/25 18:25 Wound Culture - Final
Abdomen No growth
Gram Stain - Final
06/29/25 18:25 Anaerobic Culture - Final
Abdomen NO ANAEROBES ISOLATED
Therapeutic Drug Monitoring
Vancomycin Peak 28.0 ug/ml (18-26) H 06/30/25 21:13
Vancomycin Trough 16.9 ug/ml (5-20) 07/01/25 04:54
Random Vancomycin 17.7 ug/ml 07/06/25 03:25
--- NOTE | 2025-07-07 09:51 | PTCARENOTE ---
Assumed care of pt at 0700. Received pt on insulin drip her critical care glycemic protocol, Heparin drip at 1900 units/hr, TPN, and D5W. Vent settings: AC 26/500/60/12. SR/PSVT on monitor 90s-130s, frequent PVCs. SpO2 90% on current vent settings.
Pt febrile, T-max 100.4. No cough with inline suction but spont cough with position change, +corneals, grimace with care, not following commands, weak withdrawal to pain. Assessment as documented in nursing shift assessment flowsheet. Abd dressing
change performed after colorectal surgery to bedside. CHRISTINE X3 and perc drain with scant o/p. Colostomy with small amt loose brown stool. High residuals (325cc) continue from PEG, trickle feed/H2O infusion continues.
[2025-07-07 10:09] LABS: Glucose - Point of Care 177 mg/dl (70-99)
[2025-07-07] MEDS: MYCAMINE 105 MG IV (10:20)
[2025-07-07 10:27] LABS: Magnesium 2.5 mg/dl (1.6-2.3)
[2025-07-07 10:53] LABS: APTT 39.9 Sec (23.4-35.0)
--- NOTE | 2025-07-07 10:53 | W.PN.ID1 ---
Date of Service
Date of Service: July 07, 2025
Today's Communication
Pt is not responding to broad-spectrum antibiotics. Prognosis poor.
Assessment / Plan
# Rectal perforation (06/29) with large left intra-abd abscess
# Fever - ongoing
# Leukocytosis - ongoing
# Septic shock
# MDR- carbapenem-resistant Pseudomonas
- 06/29 s/p IR perc drain placement
abscess cx's neg to date
- 07/03 OR Laparotomy, fecal disimpaction, small bowel resection, abdominal washout and gastrostomy tube
No evidence of a pelvic abscess/rectal stump leak
- Pseudomonas (from sputum) carbapenem-resistant - suspect in abdomen also.
- Has been on prolonged IV abx's since 06/08/25
- Continue current regimen cipro 400mg IV q12 (d#6), Zosyn (d#7), Vancomycin (d#9)
- Continue empiric Micafungin (d#5)
- Patient remains critically ill, vent-dependent, in ICU
- Prognosis remains poor
# Colonic inertia with megacolon; status post ex lap, decompression, colostomy, stool leakage into the abdomen requiring washout 06/08/2025
# Recent purulent peritonitis
# Recent PNA with Pseudomonas
# VDRF s/p trach 06/25/25
# On TPN
- 06/08/25 Exploratory laparotomy, lysis of adhesions, sigmoidectomy, decompression of right colon, abdominal washout, creation of end descending colostomy, umbilical hernia repair
- No OR cx
- Blood cultures neg
- 06/15 s/p bronch with airway clearance; cx Pseudomonas
- 06/19 Colorectal opened midline abd distal incision. cx cx Pseudomonas, mixed anaerobes
- 06/20 aspiration/drainage of right abdominal peritoneal collections x 2. 1 of 2 cx : Pseudomonas
-06/28 Sputum CR -Pseudomonas
- 06/29 CXR: improving opacities
- s/p 10d empiric micafungin
- s/p Vancomycin IV x 6d previously
- s/p Zosyn(8d) -> meropenem (12d) -> zosyn (d7)
# Conditions REPAIR WEAVER
HFrEF
HTN
DM
Afib
HLD
Colonic Inertia / Dysmotility
Chronic opioid dependence
Advanced bilateral lower extremity venous insufficiency
Morbid obesity (BMI~43)
Chief Complaint
-: Fever, Leukocytosis and Other (Purulent peritonitis)
Subjective / Review of Systems
On vent
Vital Signs / Physical Exam
Vital Signs
Vital Signs
Temp Pulse Resp BP Pulse Ox
100.4 F H 135 27 112/53 92
07/07/25 07:52 07/07/25 10:00 07/06/25 19:40 07/06/25 20:58 07/07/25 10:00
Physical Exam
Constitutional: Acutely Ill
Eyes: No Conjunctival Hemorrhage and Sclera Anicteric
Oropharyngeal: Other (Tracheostomy to vent)
Cardiovascular: Regular Rate, S1/S2 (tachycardic) and S3/S4
Pulmonary: Rhonchi (scattered) and Other (+trach, on vent)
Gastrointestinal: Soft, Distended, Decreased Bowel Sounds and Other (Upper abdominal drains with ongoing but decreasing drainage. Ostomy in place. Midline dressing dry)
Genito-Urinary: Mason and Clear Urine
Extremities: Edema and Venous Insufficiency (Bilateral lower extremities)
Wound: Other (Lower abdominal wound dehisced with packing in place. No purulence.)
Neurological: Other (Responsive to voice and touch.)
Lines: PICC
Objective Data
Lab Data
Lab Results
07/07/25 03:27
07/07/25 03:27
PT 16.1 Sec (11.4-14.6) H 07/02/25 18:47
INR 1.24 07/02/25 18:47
APTT 43.0 Sec (23.4-35.0) H 07/07/25 03:26
Estimated Creat Clear 65 ml/min 07/07/25 03:27
Lactic Acid 1.2 mmol/L (0.7-2.0) 07/04/25 05:13
Total Bilirubin 0.8 mg/dl (0.2-1.3) 07/03/25 15:54
AST 21 U/L (17-59) 07/03/25 15:54
ALT 14 U/L (0-50) 07/03/25 15:54
Alkaline Phosphatase 91 U/L (38-126) 07/03/25 15:54
C-Reactive Protein > 270.00 mg/L (0.0-10.00) H 06/11/25 03:22
Most recent labs reviewed.
Micro Results:
07/02/25 10:09 Blood Culture - Final
Blood/Venous No Growth - Final Report
07/02/25 10:03 Blood Culture - Final
Blood/Venous No Growth - Final Report
07/06/25 19:41 Blood Culture - Pending
Blood/Venous
07/06/25 19:51 Blood Culture - Pending
Blood/Venous
06/20/25 11:01 Fungal Culture - Preliminary
Bronch Right Lower Lobe Culture in progress.
Positive cultures are reported as soon as detected.
Final report to follow in four to five weeks.
06/29/25 18:25 Wound Culture - Final
Abdomen No growth
Gram Stain - Final
06/29/25 18:25 Anaerobic Culture - Final
Abdomen NO ANAEROBES ISOLATED
06/27/25 10:17 Blood Culture - Final
Blood/Venous No Growth - Final Report
06/27/25 09:56 Blood Culture - Final
Blood/Venous No Growth - Final Report
06/28/25 15:42 Respiratory Culture - Final
Sputum Pseudomonas aeruginosa
Pseudomonas aeruginosa#2
Gram Stain - Final
06/15/25 10:08 Fungal Culture - Preliminary
Bronch Left Lower Lobe Evelyn albicans
06/20/25 16:38 Body Fluid Culture - Final
Peritoneal Fluid Gram Stain - Final
06/20/25 16:34 Body Fluid Culture - Final
Peritoneal Fluid Pseudomonas aeruginosa
Gram Stain - Final
06/19/25 09:59 Wound Culture - Final
Abdomen Pseudomonas aeruginosa
Gram Stain - Final
06/19/25 09:59 Anaerobic Culture - Final
Abdomen
06/20/25 11:01 Respiratory Culture - Final
Bronch Right Lower Lobe Pseudomonas aeruginosa
Gram Stain - Final
06/20/25 11:01 Acid Fast Bacilli Smear - Preliminary
Bronch Right Lower Lobe Acid Fast Bacilli Culture - Preliminary
06/17/25 13:11 MRSA Screen - Final
Nose No Methicillin Resistant Staphylococcus aureus isolated.
06/13/25 12:07 Blood Culture - Final
Blood/Venous No Growth - Final Report
06/13/25 12:07 Blood Culture - Final
Blood/Venous No Growth - Final Report
06/15/25 10:08 Acid Fast Bacilli Smear - Preliminary
Bronch Left Lower Lobe Acid Fast Bacilli Culture - Preliminary
06/15/25 10:08 Respiratory Culture - Final
Bronch Left Lower Lobe Pseudomonas aeruginosa
Gram Stain - Final
06/14/25 11:22 Respiratory Culture - Final
Tracheal Aspirate Pseudomonas aeruginosa
Gram Stain - Final
06/11/25 09:27 Blood Culture - Final
Blood/Venous No Growth - Final Report
06/11/25 09:59 Blood Culture - Final
Blood/Venous No Growth - Final Report
06/06/25 07:57 MRSA Screen - Final
Nose No Methicillin Resistant Staphylococcus aureus isolated.
Imaging:
06/24/25 CXR: Slightly increased basilar predominant airspace opacities, worse on the left. Findings may be related to pneumonia or worsening atelectasis.
06/18/25 CT c/a/p: Suspected moderate volume mildly complex presumed free fluid in the abdomen, overall increased in volume in comparison to recent prior study, most prominently located in the right subhepatic region, right subdiaphragmatic region
and likely left abdomen/pelvis.
06/16/25 CXR: There is moderate airspace disease in right lower lung field concerning for pneumonia. There is obscuration of the left hemidiaphragm suggesting left lower lobe pneumonia
06/15/25 CXR: No pneumothorax status post bronchoscopy. Progressive homogeneous increased retrocardiac opacity. Suspect mild left perihilar and right infrahilar opacity which could represent atelectasis or pneumonia.
06/13/25 CT a/p: Very limited study. Small volume fluid in the abdomen, particularly in the left abdomen mildly complex. As this fluid is incompletely included, it cannot be determined whether this totally represents likely free fluid or combination
of free fluid and abnormal focal fluid collection. Additional small abnormal focal fluid collections cannot be excluded on the basis of this markedly limited study. Apparent recent prior partial sigmoidectomy with large volume stool seen in the
residual sigmoid colon and rectum.
06/10 CXR: Stable CHF and bibasilar atelectasis and/or pneumonia.
06/08/25 CXR: Diffuse marked colonic dilation. Measurement of caliber of the upper colon is slightly greater then obstruction series of June 07, 2025. Multiple air-fluid levels compatible with stasis. Moderate amount of stool within the inferior
aspect of the right colon as well as within the rectum. No gross evidence for free intraperitoneal air.
06/05/25 CT a/p: Significant gaseous distention of a large portion of the colon. This contributes to limitation of this examination, as the patient cannot be fully included on the [id number] of the CT scanner. If there can be some distal colonic
decompression, repeat scan could be considered, when hopefully the patient could be entirely included on the [id number] of the exam. No gross evidence for free intraperitoneal air. Patchy parenchymal opacity within the visualized lower lung, most
likely atelectasis. Pneumonia is a differential consideration, felt to be less likely based on morphologic appearance.
[2025-07-07 12:41] LABS: Glucose - Point of Care 152 mg/dl (70-99)
--- NOTE | 2025-07-07 12:46 | W.PN.HOSP.TC ---
Today's Communication/Plan
-
Continue management in the ICU.
Assessment / Plan
Assessment / Plan
Impression:
Mr. Knapp is a 64-year-old male with medical history of HFpEF, A-fib/flutter, IDDM, obesity, chronic pain with subsequent opioid dependence, and chronic constipation with colonic dysmotility who presented with shortness of breath, abdominal
bloating and discomfort, constipation. His last bowel movement was 2 weeks prior to arrival. He is having increasing difficulty breathing due to worsening abdominal distention. He has had multiple similar episodes since September 2024 and has
previously required decompression. He has been treated with enemas and neostigmine previously. Abdominal imaging showed significant colonic distention with air-filled loops of bowel. He also had patchy parenchymal opacities within the mid to
lower lungs. He was mildly hypoxic and has been started on antibiotics. He has remained afebrile with a mild leukocytosis of just over 12,000. He has been admitted for further evaluation and management.
Seen by GI, failed neostigmine, enema, status post nonsuccessful decompressive flexible sigmoidoscopy.
Surgery team consulted.
s/p Exploratory laparotomy, lysis of adhesions, sigmoidectomy, decompression of right colon, abdominal washout, creation of end descending colostomy, umbilical hernia repair on 06/08
admitted to ICU postoperatively, intubated.
Patient had fever,Infectious disease consult, started on zosyn.
Patient was still running fever, added micafungin.
CT chest: New right lower lobe consolidation with air bronchograms, atelectasis versus pneumonia, Possible small bilateral pleural effusions.
CT abdomen/pelvis shows: Small volume fluid in the abdomen, particularly in the left abdomen mildly complex. As this fluid is incompletely included, it cannot be determined whether this totally represents likely free fluid or combination of free
fluid and abnormal focal fluid collection. Additional small abnormal focal fluid collections cannot be excluded on the basis of this markedly limited study
S/p trach
Assessment/Plan:
Colonic dysmotility/ileus:
- Abdomen remained significantly distended despite multiple medical enemas and subsequent bowel movements
- Upgraded to IMU 06/07, pushed 4 mg neostigmine around 1:30 PM, no significant peristaltic response
- Ultimately required surgical intervention, brought to the OR 06/08 for ex lap with lysis of adhesions and sigmoidectomy with end descending colostomy, decompression of right colon, abdominal washout and umbilical hernia repair
- ICU postoperatively, intubated
- Colorectal surgery following, colostomy with brown stool output
- IR placed 2 abdominal drains 06/20 with serous output, a third drain was placed 06/29 for new collection
- Rectum was distended with stool and was manually disimpacted 07/01
- Brought back to the OR on 07/03 for washout, disimpaction, and PEG placement
- Continue TPN, holding tube feeds for now however may be able to start trickle feeds if continues to have good stoma outputs
07/06
Start trickle feeding
Metabolic encephalopathy:
- Unclear etiology but likely secondary to critical illness
- Currently responsive only to noxious stimuli, off of sedation
- CT brain 07/01 shows no acute intracranial abnormality, possible mastoiditis
- No findings on ABG to explain mental status
- Neurology following, EEG showed generalized slowing indicative of toxic/metabolic encephalopathy, no focal epileptiform activity
07/06
Hypernatremia, will start D5W
07/07
Hyponatremia slightly improved
Septic shock, requiring pressors:
- Status post sigmoidectomy with multiple intra-abdominal fluid collections and pulmonary infection
- Respiratory culture from 06/28 growing Carbapenem resistant Pseudomonas
- Brought back to the OR 07/03 for abdominal washout
- Antibiotics Zosyn and IV vancomycin
- Restarted micafungin
- Vasopressors currently on hold
- Seroquel discontinued 06/27
Acute hypoxic respiratory failure (currently intubated in the ICU postoperatively)
- Continue mechanical ventilation, ETT replaced 06/19 by supervisory cbp officer, trach placed 06/25
- Underwent bronchoscopy with BAL left lower lobe 06/15 by supervisory cbp officer, cultures growing Pseudomonas, repeat bronchoscopy with BAL 06/20 with aspiration of copious secretions
- Continuing IV antibiotics as outlined above
- Hypertonic nebulized saline 3 times a day with albuterol, aggressive chest PT
- Additional Lasix pushes as needed
Hypernatremia:
- Worsening again, resumed D5W
paroxismal A-fib/flutter:
- Currently rate controlled, holding home metoprolol, continue home amiodarone 200 mg at night
- Holding home Xarelto, have transitioned to therapeutic Lovenox which is on hold currently for OR
IDDM:
- Insulin drip.
HFrEF:
- Acute on chronic chronic
- Holding home metoprolol succinate 100 mg
- Lasix pushes as needed, holding spironolactone, monitor daily weights
- No need for afterload reduction due to hypotension
CODE STATUS: Full code
DVT prophylaxis: Surgery okay with IV heparin
Diet: TPN-trickle feed
Disposition: Continue management in the ICU.
Total time spent on today's encounter was 74 minutes which included time spent in counseling the patient/family regarding diagnosis and treatment plan as listed above, goals of care, and symptom management. Case was discussed with nursing staff,
specialists, and care coordinators/case management. All labs and imaging personally reviewed by me. Remainder the time spent in detailed review of previous records, lab data, imaging, and other medical provider documentation.
Anticipated Discharge: > 48 hours
Subjective/Interval History
-
Date of Service: July 07, 2025
Patient still critically ill in the ICU
Objective Data
-
Labs:
Laboratory Results
07/07/25 07/07/25 07/07/25
03:26 03:27 10:33
WBC 16.7 H
Hgb 7.7 L
Hct 27.2 L
Plt Count 165
APTT 43.0 H 39.9 H
Sodium 156 H
Potassium 3.5
Chloride 118 H
Carbon Dioxide 33 H
BUN 86 H
Creatinine 1.7 H
Glucose 159 H
Calcium 8.2 L
Vital Signs:
Vital Signs
Temp Pulse Resp BP Pulse Ox
100.4 F H 135 27 112/53 92
07/07/25 07:52 07/07/25 10:00 07/06/25 19:40 07/06/25 20:58 07/07/25 10:00
I&O
07/06/25 07/07/25 07/08/25
06:59 06:59 06:59
Intake Total 2854.0 / 2956.0 5711 / 5944 1235 / 1235
Output Total 4795 / 4795 5243 / 5243 1550 / 1550
Balance -1941.0 / -1839.0 468 / 701 -315 / -315
Physical Exam
-
General: Appears in Distress
HEENT: Normocephalic, Atraumatic, Moist Mucous Membranes, Tracheotomy, Tracheostomy Collar, No Ptosis, PERRLA, Nose Appears Normal and Other
Respiratory: Rales, Rhonchi and Non Labored Respirations
Cardiac: Regular Rhythm and S1/S2
Breast: Deferred by me
GI: Other (Colostomy bag, midline incision,PEG tube)
Musculoskeletal: No Clubbing and No Cyanosis
Skin: Warm
Psych: Other (Minimal communication)
--- NOTE | 2025-07-07 12:50 | W.PN.CRS1 ---
Today's Communication / Plan
-
continue tfs and tpn
continue other medical measures
Assessment/Plan
-
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
obstipation associated with megacolon. WBC 11.[address] showing gaseous distention of the colon, diameter of the sigmoid up to 18 cm in diameter. He received a dose of neostigmine, which failed. He underwent attempt at decompressive sigmoidoscopy,
but encountered too much stool. Due to refractory nature of his issue, we proceeded with surgery.
06/08 exlap, sigmoidectomy, end-colostomy; iatrogenic spillage of stool - controlled and abdomen washed out, no colonic ischemia or perforation
06/15 and 06/20 bronch for mucous plugging
06/19 midline incision opened up, +pseudomonas/mixed aneerobes
06/20 IR drains x2 to RUQ +pseudomonas in 1 of 2
06/25 Tracheostomy placement
06/29- IR successful ultrasound-guided drainage catheter placement into a left-sided intraperitoneal fluid collection.
07/03 exlap, fecal disimpaction, flex sig, SBR and abdominal washout with placement of G-tube
Tmax of 101.9, VSS
WBC 16.7 (17.6), Hgb 7.7 (7.9)
Plan:
- Continue TPN/Insulin gtt; appreciate nutrition
�On trickle tube feeds at 10 and hold there
�Will add free water per primary for hyponatremia
-Continue Zosyn and Vanco, appreciate ID
- Continue morales given retention with removal
- OK to start IV heparin from surgical standpoint
�Continue CHRISTINE and IR drains, will consider discontinuing if leukocytosis and stability continues
�Appreciate hospitalist and ICU teams
-MRI brain today
Subjective Data
Procedure
06/08/25- Exploratory laparotomy, lysis of adhesions, sigmoidectomy, decompression of right colon, abdominal washout, creation of end descending colostomy, umbilical hernia repair
Subjective Data
Date of Service: July 07, 2025
Patient has a trach in place, he is not responsive. He does grimace when his eyes are opened.
Objective Data
-
Vital Signs
Temp Pulse Resp BP Pulse Ox
100.4 F H 135 27 112/53 92
07/07/25 07:52 07/07/25 10:00 07/06/25 19:40 07/06/25 20:58 07/07/25 10:00
Intake & Output
07/06/25 07/07/25 07/08/25
06:59 06:59 06:59
Intake Total 2854.0 / 2956.0 5711 / 5944 1235 / 1235
Output Total 4795 / 4795 5243 / 5243 1550 / 1550
Balance -1941.0 / -1839.0 468 / 701 -315 / -315
Intake:
IV fluids (Total) 313.0 / 319.0 1827 / 1929 510 / 510
D5w 1,000 ml @ 60 mls/hr IV . 1320 / 1380 300 / 300
[id number] [facility] Rx#:[id number]
Double concentrated Levophed 45.1 / 45.1
Heparin gtt 335 / 354 95 / 95
Insulin 158 / 164 160 / 168 40 / 40
Levophed gtt 64.9 / 64.9 75 / 75
Vasopressin gtt 45 / 45
IV piggybacks 315 / 315 845 / 845 105 / 105
TPN/PPN 2015 2364 / 2460 480 / 480
Tube feeding 140 / 150 40 / 40
Feeding tube flush amount 535 / 560 100 / 100
Amount instilled into GI Tube ( 210 / 210
Total)
Gastrostomy 210 / 210
Output:
Liquid stool amount 350 / 350 30 / 30
Colostomy 350 / 350 30 / 30
Drain Output (Total)
Left Middle Abdomen 0 / 0
Right Lower Abdomen Milton- 3
Vo
Right Middle Abdomen Milton-
Vo B Placed in IR
Right Upper Abdomen Milton-
Vo A Placed in IR
Gastrointestinal tube output ( 1135 / 1135 150 / 150
Total)
Gastrostomy 1135 / 1135 150 / 150
Urine, Morales 3300 / 3300 5025 / 5025 1550 / 1550
Lab Results
07/07/25 03:27
07/07/25 03:27
Physical Exam
-
General: No Acute Distress and Other (trach in place)
Abdomen: Soft, Non Distended and Other (Ostomy pink with stool in the ostomy bag; G-tube in place; right upper CHRISTINE-10 serous, right mid CHRISTINE SS, right lower CHRISTINE SS)
Wound: Other (Midline incision closed with fred, no surrounding erythema or purulent drainage; inferior aspect of midline incision open with packing, no purulence or necrosis, healthy subcutaneous tissue)
--- NOTE | 2025-07-07 13:06 | PTCARENOTE ---
Pt to MRI of head. BP and SpO2 decreasing throughout process. FiO2 up to 100% due to SpO2 85% on 60% FiO2. Levophed up to 8mcg/min.
[2025-07-07 14:34] LABS: Glucose - Point of Care 183 mg/dl (70-99)
--- NOTE | 2025-07-07 15:01 | W.PN.UPDATE ---
Update Note
Progress Note Update
Dr. Eduardo updated and reevaluated patient at the bedside
Patient had MRI and had some desaturations which are now improving
Dr. Eduardo updated on MRI results-no acute stroke, many chronic findings including varices and severe mastoiditis
Explanation for mental status decline likely toxic metabolic encephalopathy
Dr. Eduardo reviewed chart and patient was seen by neurology on 07/02-Dr. Alfaro who felt patient had extremely poor prognosis
Dr. Eduardo contacted Dr. Laurent from neurology to reevaluate after MRI
Dr. Eduardo contacted infectious disease and reviewed mastoiditis and asked if there was any additional changes needed
ENT may need to be consulted
Discussed CODE STATUS with -explained that if he had a cardiopulmonary arrest that there was a high chance that he would not recover in a meaningful way-at this point she still wants full-court press including CPR/defibrillation if need be-we
will respect her wishes
[2025-07-07 15:16] LABS: Glucose - Point of Care 178 mg/dl (70-99)
--- NOTE | 2025-07-07 15:18 | W.PN.NEURO.1 ---
Addendum entered and electronically signed by Yayo Laurent MD 07/07/25 16:05:
Studies reviewed.
I have personally examined the patient. I reviewed and agree with the RUNNER ON's Note.
My addenda:
Not Awake, alert, or interactive. No acute distress.
Speech mute
Follows no requests difficulty. No tremor.
Extra-ocular movements blinking after passive eye-opening.
Facial movements full and symmetric. Hearing intact to normal conversational volume.
Neck: full ROM.
Chest: no dyspnea
Heart: no JVD
Ext: (-) Clubbing, (-) Cyanosis, (-) Edema
IMPRESSIONS/RECOMMENDATIONS:
Abrupt onset of change in mental status
Most likely due to persistent toxic-metabolic encepahlopathy. DDX Encephalitis (less likely) and seizures (less likely)
re-check EEG
provide Thiamine
supportive care
consider LP
D/W family / nursing
All questions answered.
Will continue to follow pending results.
Original Note:
Today's Communication / Plan
-
-EEG to rule out seizure
-consider LP given no improvement in cognition
-continue care per primary team
Neuro Assessment/Plan
Assessment
Mr. Knapp is a 64-year-old male with medical history of HFpEF, A-fib/flutter, IDDM, obesity, chronic pain with subsequent opioid dependence, and chronic constipation with colonic dysmotility who presented to [facility] on 06/05/2025 with shortness of
breath, abdominal bloating and discomfort, constipation, neurology consulted for decrease in mental status.
Head CT 07/01/2025: No acute intracranial abnormality. Fluid within both mastoid cells compatible with mastoiditis.
EEG showing generalized slowing and triphasic waves 1/s consistent with toxic metabolic encephalopathy
Brain MRI 07/07/2025:
1. Mild diffuse cerebral and cerebellar volume loss.
2. Severe tortuosity and ectasia of the left intracranial vertebral artery.
3. 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
4. 2.7 cm and 1.6 cm RIGHT INTRAORBITAL VARICES causing mild proptosis of the right globe.
5. SEVERE BILATERAL FLUID OPACIFICATION of the MASTOID AIR CELLS.
6. Severe bilateral hyperostosis frontalis interna.
7. Small multilevel cervical disc herniations causing mild spinal cord compression and central canal stenosis.
Labs: Na 156, BUN 86, Cr 1.7
Plan
Impression: decreased mental status in septic patient. Differential diagnosis most likely toxic metabolic encephalopathy given metabolic derangement and patient is febrile with temp of 101.6 and brain MRI no structural causes for decreased cognition
vs seizure
-EEG to rule out seizure
-consider LP given no improvement in cognition
-continue care per primary team
All questions encouraged and answered, plan of care discussed with Dr. Laurent and patient's as patient is unresponsive
Subjective/Objective
Subjective Data
Date of Service: July 07, 2025
Patient was seen by Dr. Alfaro on 07/02/2025 who noted the patient to have EEG findings consistent with toxic metabolic encephalopathy and thought patient's prognosis was poor. Patient continues with poor mental status. Patient is unresponsive, no longer
sedated and on ventilator. His exam shows negative dolls eye, unresponsive to verbal or physical stimuli. He obtained his brain MRI which was largely unrevealing.
Objective Data
Vital Signs
Temp Pulse Resp BP Pulse Ox
101.6 F H 82 19 112/53 99
07/07/25 14:31 07/07/25 15:00 07/07/25 12:19 07/06/25 20:58 07/07/25 15:13
Lab Results
07/07/25 03:27
07/07/25 03:27
PT 16.1 Sec (11.4-14.6) H 07/02/25 18:47
INR 1.24 07/02/25 18:47
APTT 39.9 Sec (23.4-35.0) H 07/07/25 10:33
Sodium 156 mmol/L (135-145) H 07/07/25 03:27
Potassium 3.5 mmol/L (3.5-5.1) 07/07/25 03:27
BUN 86 mg/dl (9-20) H 07/07/25 03:27
Glucose 159 mg/dl (70-99) H 07/07/25 03:27
Calcium 8.2 mg/dl (8.4-10.2) L 07/07/25 03:27
Phosphorus 3.3 mg/dl (2.5-4.5) 07/07/25 03:27
Ssb-C-Nhqsqwunqee Pept 6380 pg/ml 06/13/25 03:47
Patient Allergies
No Known Allergies Allergy (Verified 06/05/25 19:56)
Review of Systems
-
Unable to obtain full review of systems at this time due to: Acuity
History Source: Patient
Physical Exam
-
General: Intubated and Appears Chronically Ill
Cardiac: No JVD
GI: Other (colostomy bag)
Psych: Unable to Assess
Extended Neurological Exam
Mood & Affect: Unable to Assess
Attention Span & Concentration: Unresponsive to Verbal Stimuli and Unresponsive to Physical Stimuli
Memory: Unable to Assess
Speech: Unable to Assess
Cranial Nerves III, IV, : Extraocular Movement: Absent Doll's Eyes
Cranial Nerve VIII: Hearing: Unable to Assess
Cranial Nerves IX, X: Palate Movement: Unable to Assess
Muscle Strength, Overall: Absent
Data Reviewed
-
CT Head: Report Reviewed and Image Reviewed
MRI Head: Report Reviewed and Image Reviewed
EEG: Report Reviewed
Labs: Report Reviewed
Reviewed with: Physician and Family
Old Records: Summarized
--- NOTE | 2025-07-07 15:52 | CM ---
Remains intubated, TPN, MRI, IV/lasix/Vanco/Zosyn. Discharge POC: TBD.
[2025-07-07] MEDS: LEVOPHED 250 IV ×2 (16:11→21:01)
[2025-07-07 16:51] LABS: Ferritin 722.0 ng/ml (17.9-464.0)
[2025-07-07 17:10] LABS: Glucose - Point of Care 159 mg/dl (70-99)
[2025-07-07 17:30] LABS: Folate 10.6 ng/ml (2.76-20); Vitamin B12 801 pg/ml (239-931)
[2025-07-07] MEDS: VITAMIN B1 100 MG TUBE (17:53)
[2025-07-07 18:49] LABS: Glucose - Point of Care 157 mg/dl (70-99)
[2025-07-07 18:57] LABS: APTT 56.9 Sec (23.4-35.0)
[2025-07-07] MEDS: VENTOLIN NEBULES 2.5 MG INH (19:25)
[2025-07-07] MEDS: TYLENOL ORAL SOLUTION 650 MG TUBE (19:30)
--- NOTE | 2025-07-07 20:00 | PTCARENOTE ---
Patient received in bed, withdrawals only to pain. NSR with frequent PVCs, febrile, blood pressure as documented. palpable pulses throughout. + anasarca. #8 XL shiley trach, vent settings A/C 26 TV 500 FIO2 80% Peep 12, lungs diminished and
coarse, Copious amount of clear oral secretions. Abdomen obese with hypoactive bowel sounds, colostomy draining liquid brown peg tube with trickle feeds 10ml/hr with flush 25ml/hr. left perc drain noted. 3 CHRISTINE drains with small amount of output.
midline abdominal incision c/d/i. Mason catheter draining yellow urine. foam dressing on sacrum intact. Left radial gio transduced and zeroed. RTL PICC with IVF, TPN, levophed, heparin and insulin infusing as documented. Turned and
repositioned in bed.
[2025-07-07] MEDS: Parenteral Nutrition, Central 2300 IV (20:58)
[2025-07-07 21:21] LABS: Glucose - Point of Care 157 mg/dl (70-99)
[2025-07-07] MEDS: LIPITOR 40 MG TUBE (21:59)
[2025-07-07] MEDS: PACERONE 200 MG TUBE (22:00)
[2025-07-07 23:08] LABS: Glucose - Point of Care 158 mg/dl (70-99)
[2025-07-07 23:32] LABS: Glucose - Point of Care 168 mg/dl (70-99)
--- NOTE | 2025-07-08 00:09 | PTCARENOTE ---
Patient reassessed, MAP <65, Levophed gtt increased to 12 mcg/min. No other changes in assessment
[2025-07-08] MEDS: HEPARIN 25000 UNITS/250 ML IV ×3 (01:08→19:37)
[2025-07-08 01:23] LABS: Glucose - Point of Care 159 mg/dl (70-99)
[2025-07-08 02:10] LABS: Hematocrit 26.3 % (39.0-52.0); Hemoglobin 7.7 g/dL (13.0-18.0); Mean Corp Hgb Conc. 29.3 g/dL (33.0-37.0); Mean Corpuscular Volume 88.6 fL (80.0-94.0); Platelet Count 209 10^3/uL (130-400); Red Cell Dist. Width 17.0 % (11.5-14.5)
[2025-07-08 02:25] LABS: APTT 64.0 Sec (23.4-35.0)
[2025-07-08] MEDS: NOVOLIN R INSULIN INFUSION 100 IV ×3 (02:34→19:36)
[2025-07-08] MEDS: LEVOPHED 250 IV ×2 (02:34→08:26)
[2025-07-08 03:20] LABS: Glucose - Point of Care 154 mg/dl (70-99)
[2025-07-08 03:54] LABS: Blood Urea Nitrogen 85 mg/dl (9-20); Calcium 8.0 mg/dl (8.4-10.2); Carbon Dioxide 30 mmol/L (22-30); Chloride 116 mmol/L (98-107); Estimated Creatinine Clearance 69 ml/min; Glucose 163 mg/dl (70-99); Potassium 3.6 mmol/L (3.5-5.1); Sodium 152 mmol/L (135-145); eGFR 47.82
--- NOTE | 2025-07-08 04:17 | PTCARENOTE ---
Patient reassessed, no changes in assessment, trach care and wound care completed, turned and repositioned. No other changes in assessment
[2025-07-08 04:51] VITALS: BMI 36.6
[2025-07-08] MEDS: ZOSYN 100 IV ×4 (05:02→23:56)
[2025-07-08] MEDS: TYLENOL ORAL SOLUTION 650 MG TUBE (05:12)
[2025-07-08 05:19] LABS: Glucose - Point of Care 155 mg/dl (70-99)
[2025-07-08] MEDS: VANCOCIN 275 MG IV (06:46)
[2025-07-08 07:10] LABS: Glucose - Point of Care 166 mg/dl (70-99)
--- NOTE | 2025-07-08 07:47 | W.PN.INTV ---
Today's Communication / Plan
Recommendations
Broad-spectrum antibiotics
Follow cultures
Attempt to wean FiO2
Follow-up chest x-ray
Add second pressor
Prognosis unfortunately extremely poor- updated-continues to wish for full CODE STATUS
Assessment
-
64-year-old male with a past medical history of cardiomyopathy, hypertension, DM type II, history of chronic opioid use due to chronic arthritis now on buprenorphine, history of ERASMO, venous insufficiency and chronic back pain who presented with
shortness of breath, abdominal distention. Found to have severe colonic distention. Initially treated with neostigmine, attempted sigmoidoscopy without attempt. Underwent exploratory laparotomy 06/08/2025-developed shock requiring vasopressors and
remained on mechanical ventilation. We were consulted on 06/09/2025.
Acute hypoxemic respiratory failure s/p intubation 06/08
s/p laparotomy
s/p Laparotomy, fecal disimpaction, flexible sigmoidoscopy, small bowel resection, abdominal washout and gastrostomy tube 07/03/25
Resistant pseudomonas PNA, w/ prolonged vent dependence s/p trach 06/25 (Shiley 8.0 XLT)
TME
Pseudoobstruction with megacolon, failed conservative management, s/p ex lap
Septic shock-peritonitis, intra-abdominal abscesses, concern for rectal perforation and LLL pneumonia
Acute on chronic heart failure with reduced ejection fraction, LVEF 35%, Stage I diastolic dysfunction
CONY
Prolonged QTc
Hypernatremia
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
Paroxysmal atrial flutter.
Hypertension
BPH
DM type II
chronic back pain
cardiomyopathy
venous insufficiency
history of ERASMO
severe osteoarthritis
chronic pain management due to arthritis
chronic buprenorphine use/narcotic use disorder
Pulmonary hypertension, estimated pulmonary artery systolic pressure 50-55
Morbid obesity
Plan
Sedation: none
Pain control: subutex, tylenol IV
Rass -3 to -4, goal 0
TME noted, EEG to evaluate for any nonconvulsive seizures--neg, repeat 07/08/2025-pending
Maintained off sedation > 5 days
Continues to be unresponsive except some response to sternal rub/grimacing
Hypernatremia an issue, remains on [id number]-[id number] free water drip to 100 mL/h-free water deficit around 9 L
Chronic hypercapnia not the cause of mental status decline
CT head 07/01/2025-no acute intracranial abnormalities, mastoiditis
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
mild proptosis of the right globe, severe bilateral fluid opacifications of the mastoid air cells, severe bilateral hypotrichosis frontalis interna
Chest x-ray 07/09/25
Respiratory status remains extremely tenuous
Continue on current ventilator settings-FiO2 increased to 0.8, PEEP at 12-saturations 96%
ABGs and VBG's noted-chronic hypercapnia, not acidotic at this point-compensated
Attempt to wean FiO2-currently at 0.8-attempt to wean
PEEP currently at 12
Hemodynamics remain variable
Norepinephrine continues-attempt to wean
Vasopressin added 07/08/2025
Follow lactate if needed
Monitor QTc
Replace potassium and magnesium as needed
PAF history, on outpatient Xarelto/history of cardioversion in January 2025/Amio PO
Heparin infusion, was held due to bloody secretions 06/25, enoxaparin p.m. started 06/26/25
Ok to resume heparin per surgery 07/06/25
Primarily group II PH related to underlying congestive heart failure
Continue to optimize intravascular volume, keep saturations above 90%, no indication for vasodilator therapy
Patient has been diuresing well with intermittent Lasix/hold now due to hypotension
Fluid balance +2.9 L over last 24 hrs
In view of hyponatremia, start D5W infusion (~6L FWD)
Diuresis continues as tolerated
Monitor renal function, electrolytes, intake/output, lower extremity edema and weight
Replace electrolytes as needed
Cultures [id number]-gdtqknnut-kihhzbkif Pseudomonas
Continues with intermittent temperatures
Continue antibiotics per infectious disease-discussed the case with Dr. Quispe
Infectious disease following-correspondence reviewed
Lumbar puncture could not be performed with body habitus on the ventilator
S/p ex lap, sigmoidectomy and end colostomy, iatrogenic spillage of stool, peritonitis, umbilical hernia repair, 06/08/2025
Small-volume stool output noted in the ostomy bag.
TPN infusing/insulin gtt
Diabetic nurse practitioner following-reviewed the case with her
Tube feeding stopped due to high residuals-currently on trickle feed 10 mL/h-advance per surgery
06/18/25, CT chest abdomen pelvis pursued, fluid noted in the abdomen.
Purulent discharge from inferior margin of surgical site, bedside drainage on 06/19, sent for cultures. Growing Pseudomonas
06/20, IR guided peritoneal drains x 2 placed for intra-abdominal collections noted on imaging, Pseudomonas noted on peritoneal fluid culture
CT 06/29/25 concerning for large intraabdominal fluid collection as well as concern for rectal perforation with free air
06/29, s/p IR guided intraperitoneal drain placement, serous drainage noted
Colorectal surgery on case-correspondence reviewed
s/p OR 07/03: Laparotomy, fecal disimpaction, flexible sigmoidoscopy, small bowel resection, abdominal washout and gastrostomy tube
DVT prophylaxis-on heparin drip
GI prophylaxis-on pantoprazole
Nutrition-TPN and tube feeds-trickle at 10 mL/h
Bedside range of motion
Dr. Eduardo updated on multidisciplinary rounds 07/08/2025-explained to multi organ dysfunction/failure, very poor prognosis, unlikely to recover from cardiopulmonary arrest, encouraged DNR status, understood but wants continued supportive
care-wishes to speak to infectious disease
Critical care statement: A total of 50 minutes of critical care time was provided for this patient today. This includes management of unstable vital signs, evaluation of the patient at bedside, reviewing the patient�s pertinent medical records
including radiographs, pressor management, ventilator management, microbiology, laboratory evaluations, and��discussion with primary team, consultants, pharmacy, nutrition, physical therapy, case management, charge nurse, critical care nursing, and
respiratory therapy.
Family Discussions
Xiomara-Goals of care discussion 07/02/25. I called patient's and updated about patient's current condition. Considering lack of significant progress over the days and now worsening encephalopathy, developing hypotension, increasing pressor
requirement and CONY, overall prognosis is very poor. I brought up the option of pursuing more comfort focused care. Patient's was appreciative of the input and wants to talk to other care providers including infectious disease and surgery
service.
Dr. Eduardo updated and reevaluated patient at the bedside 07/07/2025. Patient had MRI and had some desaturations which are now improvingDr. Jayce updated on MRI results-no acute stroke, many chronic findings including varices and severe
mastoiditisExplanation for mental status decline likely toxic metabolic encephalopathyDrMaren Eduardo reviewed chart and patient was seen by neurology on 07/02-Dr. Alfaro who felt patient had extremely poor prognosisDrMaren Eduardo contacted Dr. Laurent from
neurology to reevaluate after MRIDrMaren Eduardo contacted infectious disease and reviewed mastoiditis and asked if there was any additional changes neededENT may need to be consultedDiscussed CODE STATUS with -explained that if he had a
cardiopulmonary arrest that there was a high chance that he would not recover in a meaningful way-at this point she still wants full-court press including CPR/defibrillation if need be-we will respect her wishes
Dr. Eduardo updated on multidisciplinary rounds 07/08/2025-explained to multi organ dysfunction/failure, very poor prognosis, unlikely to recover from cardiopulmonary arrest, encouraged DNR status, understood but wants continued supportive
care-wishes to speak to infectious disease
Diagnostic Data
Chest x-ray 06/08/2025: Reviewed, ET tube in place. Left lower lobe airspace disease. Cardiomegaly
CT abdomen pelvis 06/05/2025: The patient is significantly distended, and much of the abdominal and upper pelvic soft tissues extending anterior and to the left of the [id number], which limits evaluation, as it becomes difficult to confidently
follow the loops of bowel. There is distention of the rectum with air and stool, measuring 9.3 cm in diameter. There is marked distention of the sigmoid colon which extends into the right and central upper abdomen, with the sigmoid colon measuring
up to 18 cm in diameter. The sigmoid colon contains a moderate to large amount of stool, mainly inferiorly. There appears to be moderate distention of the rest of the visualized colon. Small bowel loops are present, and do not appear to be
significantly distended, similar appearance to prior examination. Of note, the cecum cannot be confidently identified on the present examination. No gross evidence of free intraperitoneal air. There is patchy parenchymal opacity within the
visualized lower lungs, most likely atelectasis. A component of pneumonia is also possible, although felt to be less likely. There is no significant pleural effusion and no significant pericardial effusion. Coronary artery calcifications are
present. Please correlate with symptoms of and risk factors for coronary artery disease, with further workup as clinically appropriate. Of note, the stomach is not distended.
ECHO 04/28/25: Left ventricle is moderately dilated with moderately reduced systolic function; left ventricular ejection fraction is 35% by modified Avery's method. Global hypokinesis. Mild concentric left ventricular hypertrophy. Moderate
concentric left ventricular hypertrophy. Stage I diastolic dysfunction suggestive of abnormal relaxation. Mildly dilated right ventricle with low normal RV function.
Mild mitral regurgitation. Sclerotic aortic valve with aortic annular calcification and peak and mean gradients of 23and 12 mmHg, respectively. Estimated BORA is 1.5 cm2., using an LVOT of 1.9 cm. No aortic regurgitation seen. Mild aortic stenosis.
Mild tricuspid regurgitation. Estimated pulmonary artery pressure of 50-55 mmHg, assuming a right atrial pressure of 3-8 mmHg. Compared to previous echo 12/26/24, the PA pressure has increased from 35 to 55 mmHg. LVEF may have improved slightly
from 25 to 35%. Previous study did use Definity.
Subjective Dataa
Subjective Data
Date of Service:
Date of Service: July 08, 2025
Chief Complaint: Degreasing Solution Reclaimer Follow Up (Septic shock/respiratory failure require mechanical ventilation) and Pulmonary Follow Up
Subjective:
Unresponsive, increased ectopy and brief bursts of SVT, FiO2 at 0.8, moderate secretions, requiring second pressor
Review of Systems
General: Other (Per HPI)
Objective Data
Data Reviewed
Vital Signs / I&O / Oxygen:
Vital Signs
Temp Pulse Resp BP Pulse Ox
101.1 F H 135 27 112/53 99
07/08/25 07:39 07/08/25 06:00 07/07/25 20:01 07/06/25 20:58 07/08/25 06:00
Intake and Output
07/07/25 07/08/25 07/09/25
06:59 06:59 06:59
Intake Total 5711 / 5944 6511.5 / 6745.5 234 / 234
Output Total 5243 / 5243 3985 / 3985
Balance 468 / 701 2526.5 / 2760.5 234 / 234
SaO2 [CPAP/PSV] 89
SaO2 [ASV] 98
SaO2 [A/C] 96
SaO2 99
Nasal Cannula flow liters per 3
minute
Physical Exam
General: Respiratory Distress (n), Comfortable (Currently on mechanical ventilation), Other (Large neck, obese) and Other (chronically ill appearing)
HEENT: Normocephalic, Anicteric and Tracheotomy
Cardiovascular: Regular Rhythm (Tachycardic), Murmur (1-2/6 systolic murmur) and Peripheral Edema (chronic venous stasis changes, BL 2+)
Respiratory: Wheeze (n), Crackles (minimal, BL), Rhonchi (n), Non-Labored Respirations (but tachypneic, shallow breaths) and Other (Tracheostomy)
GI: Soft, Distended (Morbidly obese), Non Tender and Other (Colostomy with trace amount of stool, 3 additional drains placed by IR service, continues with serous output)
Neurology: Lethargic, Non Verbal and Other (diminishing MS, not following commands)
Skin: Warm, Good Color, Cyanosis (n), Jaundice (n) and Rash (n)
Labs/Micro/Reports
Lab Data
07/08/25 01:56
07/08/25 01:56
Laboratory Results
07/07/25 07/07/25 07/08/25
10:33 18:37 01:56
APTT 39.9 H 56.9 H 64.0 H
Microbiology
07/06/25 19:41 Blood/Venous Blood Culture - Preliminary
No Growth in 24 hours- Final report to follow
07/06/25 19:51 Blood/Venous Blood Culture - Preliminary
No Growth in 24 hours- Final report to follow
07/02/25 10:09 Blood/Venous Blood Culture - Final
No Growth - Final Report
07/02/25 10:03 Blood/Venous Blood Culture - Final
No Growth - Final Report
06/20/25 11:01 Bronch Right Lower Lobe Fungal Culture - Preliminary
Culture in progress.
Positive cultures are reported as soon as detected.
Final report to follow in four to five weeks.
06/29/25 18:25 Abdomen Wound Culture - Final
No growth
06/29/25 18:25 Abdomen Gram Stain - Final
06/29/25 18:25 Abdomen Anaerobic Culture - Final
NO ANAEROBES ISOLATED
--- NOTE | 2025-07-08 07:53 | PN.DE.MGMTRT ---
Insulin Management
- -
07/08/2025: Diabetes Management Follow up
Patient admitted 06/05 with c/o difficulty breathing. Diabetes management consult 06/15. PMH 5 weeks of constipation with abdominal distention, HTN, A-Fib, CHF Prior to admission was taking Lantus 24 units daily with NovoLog 20 units AC and Farxiga 5
mg daily. A1C on admission 7.1%, Cr 1.5, eGFR 51.69 today.
Patient remains intubated and sedated. Information obtained from chart and patient nurse and pharmacist.
S/P OR 06/08 for lysis of adhesions, sigmoidectomy, with end descending colostomy and s/p tracheostomy 06/25, s/p OR for washout, disimpaction, PEG.
Receiving TPN. IV D5W continues, contributing to Hyperglycemia of >200. Tube feeds restarted @ 10 per hour to increase to goal.
Glucose range 178 to 162. Patient has required 8 to 10 units of insulin per hour. Steroids to start 50 mg hydrocortisone IV Q6 hours.
Will continue critical care glycemic protocol.
Discussed with nurse, and bleach packer team. Will cont to follow.
Diabetes History
- -
Type of Diabetes: 2 requiring insulin
Pre-Admission Diabetes Regimen
07/08/25
01:56
Creatinine 1.6 H
Lab Results
Hemoglobin A1c 7.8 % (4.0-5.6) H 06/22/25 03:20
Insulin Pump Settings
IP Diabetes Regimen
07/06/25 07/07/25 07/07/25
11:58 08:10 09:57
Glucose
POC Glucose 152 H 152 H 177 H
07/07/25 07/07/25 07/07/25
12:29 14:23 15:02
Glucose
POC Glucose 152 H 183 H 178 H
07/07/25 07/07/25 07/07/25
16:58 18:38 21:09
Glucose
POC Glucose 159 H 157 H 157 H
07/07/25 07/07/25 07/08/25
22:57 23:20 01:11
Glucose
POC Glucose 158 H 168 H 159 H
07/08/25 07/08/25 07/08/25
01:56 03:08 05:07
Glucose 163 H
POC Glucose 154 H 155 H
07/08/25
06:59
Glucose
POC Glucose 166 H
Patient Education
--- NOTE | 2025-07-08 08:10 | PHA.VAN.FU ---
Vancomycin Assessment / Plan
- Assessment
Renal Function: Stable
WBC's are: Trending Up
In the past 24 hrs, patient has been: Febrile
Concomitant Antimicrobials: piperacillin/tazobactam
- Assessment - Trough Based Monitoring
Trough Value: 15.4
Level Today was: Appropriate
Level Comments: drawn ~23H after prior dose of 1250mg
patient has received once daily dosing of Vanc 1250mg since 07/01
- Dosing Plan
Continue: Vanc 1250mg Q24H
- Monitoring Plan
No level(s) ordered at this time: consider levels every few days to monitor with elevated SCR/BUN
- Follow Up
Pharmacy will continue to follow.
Vancomycin Follow UP
- -
Patient Age: 64
Patient Sex: Male
Vancomycin Day #: 11
Indication: Gi / Intra-Abdominal
Requesting Provider: Dr. Quispe
Pertinent Antimicrobial Allergies:
NKDA
Height / Weight:
Height 6 ft 3 in
Actual Weight 132.9 kg
Pertinent Past Medical History: BMI ~ 40
- Vital Signs / Lab Results
Temp Pulse Resp BP Pulse Ox
101.1 F H 135 27 112/53 98
07/08/25 07:39 07/08/25 06:00 07/07/25 20:01 07/06/25 20:58 07/08/25 07:56
Lab Results - Hematology
07/05/25 07/06/25 07/06/25
12:48 03:25 10:12
WBC 18.8 H 17.9 H 17.6 H
07/07/25 07/08/25
03:27 01:56
WBC 16.7 H 24.0 H
Lab Results - Chemistry
07/06/25 07/07/25 07/08/25
03:25 03:27 01:56
BUN 83 H 86 H 85 H
Creatinine 1.5 H 1.7 H 1.6 H
Estimated Creat Clear 73 65 69
Microbiology Results
07/06/25 19:41 Blood Culture - Preliminary
Blood/Venous No Growth in 24 hours- Final report to follow
07/06/25 19:51 Blood Culture - Preliminary
Blood/Venous No Growth in 24 hours- Final report to follow
07/02/25 10:09 Blood Culture - Final
Blood/Venous No Growth - Final Report
07/02/25 10:03 Blood Culture - Final
Blood/Venous No Growth - Final Report
06/20/25 11:01 Fungal Culture - Preliminary
Bronch Right Lower Lobe Culture in progress.
Positive cultures are reported as soon as detected.
Final report to follow in four to five weeks.
Therapeutic Drug Monitoring
Vancomycin Peak 28.0 ug/ml (18-26) H 06/30/25 21:13
Vancomycin Trough 15.4 ug/ml (5-20) 07/08/25 05:09
Random Vancomycin 17.7 ug/ml 07/06/25 03:25
[2025-07-08] MEDS: HYDROPHOR 1 APPLIC TOPICAL (08:26)
[2025-07-08] MEDS: NSS (PRESERVATIVE FREE) 10 ML IV (08:27)
[2025-07-08] MEDS: DESENEX/MITRAZOL/ZEASORB 1 APPLIC TOPICAL ×2 (08:27→19:42)
[2025-07-08] MEDS: PROTONIX IV 40 MG IV (08:27)
[2025-07-08] MEDS: VITAMIN B1 100 MG TUBE (08:27)
[2025-07-08] MEDS: SANTYL OINTMENT 1 APPLIC TOPICAL (08:28)
--- NOTE | 2025-07-08 08:30 | PTCARENOTE ---
Assumed care of pt at 0700. Received pt on insulin drip her critical care glycemic protocol, Heparin drip at 2500 units/hr, TPN, Levophed and D5W. Vent settings: AC 26/500/60/12. SR/PSVT on monitor 90s-130s, frequent PVCs. SpO2 90% on current vent
settings. Pt febrile, too soon for Tylenol. Cough with inline suction, grimace with care, +corneals, not following commands, weak withdrawal to pain. Assessment as documented in nursing shift assessment flowsheet. Abd dressing CDI. CHRISTINE X3 and perc
drain with scant o/p. Colostomy with small amt liquid brown stool. No residuals from PEG, trickle feed/H2O infusion continues.
[2025-07-08 08:42] LABS: APTT 71.2 Sec (23.4-35.0)
--- NOTE | 2025-07-08 09:03 | W.PN.CRS1 ---
Documented by User: Corine Mcduffie PA-C 07/08/25 13:46
Today's Communication / Plan
-
Trickle tube feeds
TPN
IV antibiotics
Wound care
Assessment/Plan
-
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
obstipation associated with megacolon. WBC 11.[address] showing gaseous distention of the colon, diameter of the sigmoid up to 18 cm in diameter. He received a dose of neostigmine, which failed. He underwent attempt at decompressive sigmoidoscopy,
but encountered too much stool. Due to refractory nature of his issue, we proceeded with surgery.
06/08 exlap, sigmoidectomy, end-colostomy; iatrogenic spillage of stool - controlled and abdomen washed out, no colonic ischemia or perforation
06/15 and 06/20 bronch for mucous plugging
06/19 midline incision opened up, +pseudomonas/mixed aneerobes
06/20 IR drains x2 to RUQ +pseudomonas in 1 of 2
06/25 Tracheostomy placement
06/29- IR successful ultrasound-guided drainage catheter placement into a left-sided intraperitoneal fluid collection.
07/03 exlap, fecal disimpaction, flex sig, SBR and abdominal washout with placement of G-tube
Tmax of 101.4. WBC 24 (16.7), Hemoglobin 7.7 (7.7)
Plan:
- Continue TPN/Insulin gtt; appreciate nutrition
�On trickle tube feeds and will slowly start to increase to a goal of 65ml/hr
�Will add free water per primary for hyponatremia
-Continue Zosyn and Vanco, appreciate ID
- Continue morales given retention with removal
- Remains on a heparin drip
�Continue CHRISTINE and IR drains, will consider discontinuing if leukocytosis and stability continues
�Appreciate hospitalist and ICU teams
- Remains on 2 pressors
Subjective Data
Procedure
06/08/25- Exploratory laparotomy, lysis of adhesions, sigmoidectomy, decompression of right colon, abdominal washout, creation of end descending colostomy, umbilical hernia repair
Subjective Data
Date of Service: July 08, 2025
Trached, grimaces to stimuli. Does not open eyes to command.
Objective Data
-
Vital Signs
Temp Pulse Resp BP Pulse Ox
101.1 F H 135 27 112/53 99
07/08/25 07:39 07/08/25 06:00 07/07/25 20:01 07/06/25 20:58 07/08/25 08:00
Intake & Output
07/07/25 07/08/25 07/09/25
06:59 06:59 06:59
Intake Total 5711 / 5944 6511.5 / 6745.5 475.5 / 475.5
Output Total 5243 / 5243 3985 / 3985 350 / 350
Balance 468 / 701 2526.5 / 2760.5 125.5 / 125.5
Intake:
IV fluids (Total) 1827 / 1929 2893.5 / 3031.5 283.5 / 283.5
D5w 1,000 ml @ 60 mls/hr IV . 1320 / 1380 1410 / 1470 120 / 120
[id number] [facility] Rx#:[id number]
Heparin gtt 335 / 354 513 / 538 50 / 50
Insulin 160 / 168 190 / 198 16 / 16
Levophed gtt 780.5 / 825.5 97.5 / 97.5
IV piggybacks 845 / 845 505 / 505
TPN/PPN 2364 / 2460 2258 / 2354 192 / 192
Tube feeding 140 / 150 230 / 230
Feeding tube flush amount 535 / 560 625 / 625
Output:
Liquid stool amount 30 / 30 50 / 50
Colostomy 30 / 30 50 / 50
Drain Output (Total)
Left Middle Abdomen 0 / 0
Right Lower Abdomen Milton- 3
Vo
Right Middle Abdomen Milton-
Vo B Placed in IR
Right Upper Abdomen Milton-
Vo A Placed in IR
Gastrointestinal tube output ( 150 / 150
Total)
Gastrostomy 150 / 150
Urine, Morales 5025 / 5025 3925 / 3925 350 / 350
Lab Results
07/08/25 01:56
07/08/25 01:56
Physical Exam
-
General: Other (Trach, emesis to stimuli)
Abdomen: Soft and Other (Ostomy pink with stool in the ostomy bag; G-tube in place; right upper CHRISTINE-10 serous, right mid CHRISTINE SS, right lower CHRISTINE SS)
Wound: Other (Midline incision closed with fred, no surrounding erythema or purulent drainage; inferior aspect of midline incision open with packing, no purulence or necrosis, healthy subcutaneous tissue)

Documented by User: Jl Pierre MD 07/08/25 22:06
Assessment/Plan
-
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
obstipation associated with megacolon. WBC 11.[address] showing gaseous distention of the colon, diameter of the sigmoid up to 18 cm in diameter. He received a dose of neostigmine, which failed. He underwent attempt at decompressive sigmoidoscopy,
but encountered too much stool. Due to refractory nature of his issue, we proceeded with surgery.
06/08 exlap, sigmoidectomy, end-colostomy; iatrogenic spillage of stool - controlled and abdomen washed out, no colonic ischemia or perforation
06/15 and 06/20 bronch for mucous plugging
06/19 midline incision opened up, +pseudomonas/mixed aneerobes
06/20 IR drains x2 to RUQ +pseudomonas in 1 of 2
06/25 Tracheostomy placement
06/29- IR successful ultrasound-guided drainage catheter placement into a left-sided intraperitoneal fluid collection.
07/03 exlap, fecal disimpaction, flex sig, SBR and abdominal washout with placement of G-tube
Tmax of 101.4. WBC 24 (16.7), Hemoglobin 7.7 (7.7)
Plan:
- Continue TPN/Insulin gtt; appreciate nutrition
�On trickle tube feeds and will slowly start to increase to a goal of 65ml/hr
�Will add free water per primary for hyponatremia
-Continue Zosyn and Vanco, appreciate ID
- Continue morales given retention with removal
- Remains on a heparin drip
�Continue CHRISTINE and IR drains, will consider discontinuing if leukocytosis and stability continues
�Appreciate hospitalist and ICU teams
[2025-07-08 09:21] LABS: Glucose - Point of Care 180 mg/dl (70-99)
[2025-07-08] MEDS: LASIX IV (10:03)
--- NOTE | 2025-07-08 10:04 | W.PN.ID1 ---
Date of Service
Date of Service: July 08, 2025
Today's Communication
See below
Assessment / Plan
# Fever - ongoing
# Leukocytosis - ongoing
# Septic shock on 1 pressor
# Encephalopathy
. Brain MRI no CVA
. EEG per neurology
. No suspicion for infectious encephalitis as patient currently on broad-spectrum antibiotics
# Bilateral fluid opacification of mastoid air cells.
. Common in setting of prolonged intubation
. Well-covered with broad-spectrum antibiotics
# 'Rectal perforation' (06/29) with large left intra-abd abscess
. 06/29 s/p IR perc drain placement
abscess cx's neg to date
. 07/03 OR Laparotomy, fecal disimpaction, small bowel resection, abdominal washout and gastrostomy tube
No evidence of a pelvic abscess/rectal stump leak
# Recent purulent peritonitis
# Colonic inertia with megacolon; status post ex lap, decompression, colostomy, stool leakage into the abdomen requiring washout 06/08/2025
. 06/08/25 Exploratory laparotomy, lysis of adhesions, sigmoidectomy, decompression of right colon, abdominal washout, creation of end descending colostomy, umbilical hernia repair
. No OR cx
. 06/19 Colorectal opened midline abd distal incision. cx cx Pseudomonas, mixed anaerobes
. 06/20 aspiration/drainage of right abdominal peritoneal collections x 2. 1 of 2 cx : Pseudomonas
# PNA with CR- Pseudomonas
# VDRF s/p trach 06/25/25
# On TPN
.06/15 s/p bronch with airway clearance; cx Pseudomonas
. 06/28 Sputum CR -Pseudomonas
Plan:
- repeat blood cx's negative.
- CXR stable
- Continue current regimen Zosyn (d#9), Vancomycin (d#11), empiric Micafungin (d#7)
- Discussed with . Pt has been on prolonged broad-spectrum IV abx's since 06/08/25 without meaningful recovery.
Had abdominal surgery 07/03 in hopes of source control, but no rectal leak or abscess found.
Pt continues to decline. His organs are shutting down and he is actively dying.
I informed her antibiotics are futile at this point. We are putting a 'band aid'- temporarily keeping him alive.
# Conditions CLAIM BENEFIT SPECIALIST
HFrEF
HTN
DM
Afib
HLD
Colonic Inertia / Dysmotility
Chronic opioid dependence
Advanced bilateral lower extremity venous insufficiency
Morbid obesity (BMI~43)
Chief Complaint
-: Fever, Leukocytosis and Other (Purulent peritonitis)
Subjective / Review of Systems
at bedside.
Pt receiving EEG.
Vital Signs / Physical Exam
Vital Signs
Vital Signs
Temp Pulse Resp BP Pulse Ox
101.1 F H 135 27 112/53 99
07/08/25 07:39 07/08/25 06:00 07/07/25 20:01 07/06/25 20:58 07/08/25 08:00
Physical Exam
Constitutional: Acutely Ill and Chronically Ill
Eyes: No Conjunctival Hemorrhage and Sclera Anicteric
Oropharyngeal: Other (Tracheostomy to vent)
Cardiovascular: S1/S2 (tachycardic)
Pulmonary: Rhonchi (scattered) and Other (+trach, on vent)
Gastrointestinal: Soft, Distended, Decreased Bowel Sounds and Other (Upper abdominal drains x2, one with milky drainage. Ostomy in place, + stool. Midline dressing dry. )
Genito-Urinary: Mason and Clear Urine
Extremities: Edema and Venous Insufficiency (Bilateral lower extremities)
Wound: Other (Lower abdominal wound dehisced with packing in place. No purulence.)
Neurological: Other (Responsive to voice and touch.)
Lines: PICC
Objective Data
Lab Data
Lab Results
07/08/25 01:56
07/08/25 01:56
PT 16.1 Sec (11.4-14.6) H 07/02/25 18:47
INR 1.24 07/02/25 18:47
APTT 71.2 Sec (23.4-35.0) H 07/08/25 08:21
Estimated Creat Clear 69 ml/min 07/08/25 01:56
Lactic Acid 1.2 mmol/L (0.7-2.0) 07/04/25 05:13
Total Bilirubin 0.8 mg/dl (0.2-1.3) 07/03/25 15:54
AST 21 U/L (17-59) 07/03/25 15:54
ALT 14 U/L (0-50) 07/03/25 15:54
Alkaline Phosphatase 91 U/L (38-126) 07/03/25 15:54
C-Reactive Protein > 270.00 mg/L (0.0-10.00) H 06/11/25 03:22
Most recent labs reviewed.
Micro Results:
07/06/25 19:41 Blood Culture - Preliminary
Blood/Venous No Growth in 24 hours- Final report to follow
07/06/25 19:51 Blood Culture - Preliminary
Blood/Venous No Growth in 24 hours- Final report to follow
07/02/25 10:09 Blood Culture - Final
Blood/Venous No Growth - Final Report
07/02/25 10:03 Blood Culture - Final
Blood/Venous No Growth - Final Report
06/20/25 11:01 Fungal Culture - Preliminary
Bronch Right Lower Lobe Culture in progress.
Positive cultures are reported as soon as detected.
Final report to follow in four to five weeks.
06/29/25 18:25 Wound Culture - Final
Abdomen No growth
Gram Stain - Final
06/29/25 18:25 Anaerobic Culture - Final
Abdomen NO ANAEROBES ISOLATED
06/27/25 10:17 Blood Culture - Final
Blood/Venous No Growth - Final Report
06/27/25 09:56 Blood Culture - Final
Blood/Venous No Growth - Final Report
06/28/25 15:42 Respiratory Culture - Final
Sputum Pseudomonas aeruginosa
Pseudomonas aeruginosa#2
Gram Stain - Final
06/15/25 10:08 Fungal Culture - Preliminary
Bronch Left Lower Lobe Evelyn albicans
06/20/25 16:38 Body Fluid Culture - Final
Peritoneal Fluid Gram Stain - Final
06/20/25 16:34 Body Fluid Culture - Final
Peritoneal Fluid Pseudomonas aeruginosa
Gram Stain - Final
06/19/25 09:59 Wound Culture - Final
Abdomen Pseudomonas aeruginosa
Gram Stain - Final
06/19/25 09:59 Anaerobic Culture - Final
Abdomen
06/20/25 11:01 Respiratory Culture - Final
Bronch Right Lower Lobe Pseudomonas aeruginosa
Gram Stain - Final
06/20/25 11:01 Acid Fast Bacilli Smear - Preliminary
Bronch Right Lower Lobe Acid Fast Bacilli Culture - Preliminary
06/17/25 13:11 MRSA Screen - Final
Nose No Methicillin Resistant Staphylococcus aureus isolated.
06/13/25 12:07 Blood Culture - Final
Blood/Venous No Growth - Final Report
06/13/25 12:07 Blood Culture - Final
Blood/Venous No Growth - Final Report
06/15/25 10:08 Acid Fast Bacilli Smear - Preliminary
Bronch Left Lower Lobe Acid Fast Bacilli Culture - Preliminary
06/15/25 10:08 Respiratory Culture - Final
Bronch Left Lower Lobe Pseudomonas aeruginosa
Gram Stain - Final
06/14/25 11:22 Respiratory Culture - Final
Tracheal Aspirate Pseudomonas aeruginosa
Gram Stain - Final
06/11/25 09:27 Blood Culture - Final
Blood/Venous No Growth - Final Report
06/11/25 09:59 Blood Culture - Final
Blood/Venous No Growth - Final Report
06/06/25 07:57 MRSA Screen - Final
Nose No Methicillin Resistant Staphylococcus aureus isolated.
Imaging:
06/24/25 CXR: Slightly increased basilar predominant airspace opacities, worse on the left. Findings may be related to pneumonia or worsening atelectasis.
06/18/25 CT c/a/p: Suspected moderate volume mildly complex presumed free fluid in the abdomen, overall increased in volume in comparison to recent prior study, most prominently located in the right subhepatic region, right subdiaphragmatic region
and likely left abdomen/pelvis.
06/16/25 CXR: There is moderate airspace disease in right lower lung field concerning for pneumonia. There is obscuration of the left hemidiaphragm suggesting left lower lobe pneumonia
06/15/25 CXR: No pneumothorax status post bronchoscopy. Progressive homogeneous increased retrocardiac opacity. Suspect mild left perihilar and right infrahilar opacity which could represent atelectasis or pneumonia.
06/13/25 CT a/p: Very limited study. Small volume fluid in the abdomen, particularly in the left abdomen mildly complex. As this fluid is incompletely included, it cannot be determined whether this totally represents likely free fluid or combination
of free fluid and abnormal focal fluid collection. Additional small abnormal focal fluid collections cannot be excluded on the basis of this markedly limited study. Apparent recent prior partial sigmoidectomy with large volume stool seen in the
residual sigmoid colon and rectum.
06/10 CXR: Stable CHF and bibasilar atelectasis and/or pneumonia.
06/08/25 CXR: Diffuse marked colonic dilation. Measurement of caliber of the upper colon is slightly greater then obstruction series of June 07, 2025. Multiple air-fluid levels compatible with stasis. Moderate amount of stool within the inferior
aspect of the right colon as well as within the rectum. No gross evidence for free intraperitoneal air.
06/05/25 CT a/p: Significant gaseous distention of a large portion of the colon. This contributes to limitation of this examination, as the patient cannot be fully included on the [id number] of the CT scanner. If there can be some distal colonic
decompression, repeat scan could be considered, when hopefully the patient could be entirely included on the [id number] of the exam. No gross evidence for free intraperitoneal air. Patchy parenchymal opacity within the visualized lower lung, most
likely atelectasis. Pneumonia is a differential consideration, felt to be less likely based on morphologic appearance.
Care Review
Plan reviewed with: Physician ([facility] [employer] team)
[2025-07-08] MEDS: LEVOPHED IV (10:11)
[2025-07-08] MEDS: MYCAMINE 105 MG IV (10:19)
[2025-07-08] MEDS: D5W 1000 IV ×2 (10:20→19:36)
[2025-07-08] MEDS: SOLU-CORTEF 50 MG IV ×3 (11:17→23:55)
[2025-07-08] MEDS: LEVOPHED 258 MG IV ×2 (11:21→22:27)
[2025-07-08] MEDS: KCL 100 IV (11:25)
[2025-07-08 11:27] LABS: Glucose - Point of Care 168 mg/dl (70-99)
--- NOTE | 2025-07-08 11:45 | WOUNDNOTE ---
WON RN NOTE: Followed up today via nurse Pimentel, sacrum/ gluteal cleft remains the same, silicone foam changed. colostomy appliance changed by nurses on shift production associate, no leakage. Nursing can change from now on, if need more supplies can obtain from
[facility]. Will follow as needed.
--- NOTE | 2025-07-08 12:32 | PTCARENOTE ---
Assessment unchanged. Changed levophed gtt to double strength. Residuals from PEG 225. TF increased to 20cc/hr towards goal. present for rounds. Code status unchanged.
[2025-07-08 13:07] LABS: Glucose - Point of Care 164 mg/dl (70-99)
--- NOTE | 2025-07-08 13:17 | EEG.RPT ---
Electroencephalogram Report
Recording
Date of EE07/08/25
Type of EEG: Routine
Length of EEG recordin minutes
Done with Video Recording: Yes
Patient Status: Inpatient
Recording Conditions: Awake and Drowsy
Hyperventilation Performed: No
Photic Stimulation Performed: Yes
Report
LESS THAN 1 HOUR REPORT
LESS THAN 1 HOUR EEG INTERPRETATION:
Moderately-severely abnormal EEG for age due to mild diffuse bihemispheric slowing
CLINICAL CORRELATION:
This study was suggestive of diffuse cortical dysfunction without focal abnormality. No seizures were recorded.
Clinical correlation is advised.
METHODS:
A 21 channel digitized electroencephalogram (EEG) was performed at the bedside in the ICU. The 10/20 international system of electrode placement was used with ECG and lateral/vertical eye movements recorded. [employer] quantitative EEG analysis
software was utilized.
QUALITY OF STUDY:
Fair
ELECTROENCEPHALOGRAPHER IMPRESSION(S):
Background
Low amplitude poorly organized anterior-posterior voltage gradient of delta, maximal theta activity, variable
There were no significant asymmetries of background activity noted.
Sleep
Not delineated
Photic Stimulation
Failed to activate the record
ECG
Normal sinus rhythm
Abnormal EEG Activity
None
--- NOTE | 2025-07-08 14:30 | W.PN.HOSP.TC ---
Today's Communication/Plan
-
Continue management in the ICU.
EEG
Assessment / Plan
Assessment / Plan
Impression:
Mr. Knapp is a 64-year-old male with medical history of HFpEF, A-fib/flutter, IDDM, obesity, chronic pain with subsequent opioid dependence, and chronic constipation with colonic dysmotility who presented with shortness of breath, abdominal
bloating and discomfort, constipation. His last bowel movement was 2 weeks prior to arrival. He is having increasing difficulty breathing due to worsening abdominal distention. He has had multiple similar episodes since September 2024 and has
previously required decompression. He has been treated with enemas and neostigmine previously. Abdominal imaging showed significant colonic distention with air-filled loops of bowel. He also had patchy parenchymal opacities within the mid to
lower lungs. He was mildly hypoxic and has been started on antibiotics. He has remained afebrile with a mild leukocytosis of just over 12,000. He has been admitted for further evaluation and management.
Seen by GI, failed neostigmine, enema, status post nonsuccessful decompressive flexible sigmoidoscopy.
Surgery team consulted.
s/p Exploratory laparotomy, lysis of adhesions, sigmoidectomy, decompression of right colon, abdominal washout, creation of end descending colostomy, umbilical hernia repair on 06/08
admitted to ICU postoperatively, intubated.
Patient had fever,Infectious disease consult, started on zosyn.
Patient was still running fever, added micafungin.
CT chest: New right lower lobe consolidation with air bronchograms, atelectasis versus pneumonia, Possible small bilateral pleural effusions.
CT abdomen/pelvis shows: Small volume fluid in the abdomen, particularly in the left abdomen mildly complex. As this fluid is incompletely included, it cannot be determined whether this totally represents likely free fluid or combination of free
fluid and abnormal focal fluid collection. Additional small abnormal focal fluid collections cannot be excluded on the basis of this markedly limited study
S/p trach
MRI brain shows:
1. Mild diffuse cerebral and cerebellar volume loss.
2. Severe tortuosity and ectasia of the left intracranial vertebral artery.
3. 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
4. 2.7 cm and 1.6 cm RIGHT INTRAORBITAL VARICES causing mild proptosis of the right globe.
5. SEVERE BILATERAL FLUID OPACIFICATION of the MASTOID AIR CELLS.
6. Severe bilateral hyperostosis frontalis interna.
7. Small multilevel cervical disc herniations causing mild spinal cord compression and central canal stenosis.
repeat EEG
Assessment/Plan:
Colonic dysmotility/ileus:
- Abdomen remained significantly distended despite multiple medical enemas and subsequent bowel movements
- Upgraded to IMU 06/07, pushed 4 mg neostigmine around 1:30 PM, no significant peristaltic response
- Ultimately required surgical intervention, brought to the OR 06/08 for ex lap with lysis of adhesions and sigmoidectomy with end descending colostomy, decompression of right colon, abdominal washout and umbilical hernia repair
- ICU postoperatively, intubated
- Colorectal surgery following, colostomy with brown stool output
- IR placed 2 abdominal drains 06/20 with serous output, a third drain was placed 06/29 for new collection
- Rectum was distended with stool and was manually disimpacted 07/01
- Brought back to the OR on 07/03 for washout, disimpaction, and PEG placement
- Continue TPN, holding tube feeds for now however may be able to start trickle feeds if continues to have good stoma outputs
07/06
Start trickle feeding
Acute Metabolic encephalopathy:
- Unclear etiology but likely secondary to critical illness
- Currently responsive only to noxious stimuli, off of sedation
- CT brain 07/01 shows no acute intracranial abnormality, possible mastoiditis
- No findings on ABG to explain mental status
- Neurology following, EEG showed generalized slowing indicative of toxic/metabolic encephalopathy, no focal epileptiform activity
07/06
Hypernatremia, will start D5W
07/07
Hyponatremia slightly improved.
07/08
Sodium improved 152-patient still encephalopathic
MRI brain shows:
1. Mild diffuse cerebral and cerebellar volume loss.
2. Severe tortuosity and ectasia of the left intracranial vertebral artery.
3. 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
4. 2.7 cm and 1.6 cm RIGHT INTRAORBITAL VARICES causing mild proptosis of the right globe.
5. SEVERE BILATERAL FLUID OPACIFICATION of the MASTOID AIR CELLS.
6. Severe bilateral hyperostosis frontalis interna.
7. Small multilevel cervical disc herniations causing mild spinal cord compression and central canal stenosis.
repeat EEG pending
Septic shock, requiring pressors:
- Status post sigmoidectomy with multiple intra-abdominal fluid collections and pulmonary infection
- Respiratory culture from 06/28 growing Carbapenem resistant Pseudomonas
- Brought back to the OR 07/03 for abdominal washout
- Antibiotics Zosyn and IV vancomycin
- Restarted micafungin
- Vasopressors currently on hold
- Seroquel discontinued 06/27
07/08
Still with fever and worsening leukocytosis to 24
Acute hypoxic respiratory failure (currently intubated in the ICU postoperatively)
- Continue mechanical ventilation, ETT replaced 06/19 by director of global marketing, trach placed 06/25
- Underwent bronchoscopy with BAL left lower lobe 06/15 by director of global marketing, cultures growing Pseudomonas, repeat bronchoscopy with BAL 06/20 with aspiration of copious secretions
- Continuing IV antibiotics as outlined above
- Hypertonic nebulized saline 3 times a day with albuterol, aggressive chest PT
- Additional Lasix pushes as needed
Hypernatremia:
- Worsening again, resumed D5W
paroxismal A-fib/flutter:
- Currently rate controlled, holding home metoprolol, continue home amiodarone 200 mg at night
- Holding home Xarelto, have transitioned to therapeutic Lovenox which is on hold currently for OR
IDDM:
- Insulin drip.
HFrEF:
- Acute on chronic chronic
- Holding home metoprolol succinate 100 mg
- Lasix pushes as needed, holding spironolactone, monitor daily weights
- No need for afterload reduction due to hypotension
CODE STATUS: Full code
DVT prophylaxis: Surgery okay with IV heparin
Diet: TPN-trickle feed
Disposition: Continue management in the ICU.
Poor prognosis.
Total time spent on today's encounter was 74 minutes which included time spent in counseling the patient/family regarding diagnosis and treatment plan as listed above, goals of care, and symptom management. Case was discussed with nursing staff,
specialists, and care coordinators/case management. All labs and imaging personally reviewed by me. Remainder the time spent in detailed review of previous records, lab data, imaging, and other medical provider documentation.
Anticipated Discharge: > 48 hours
Subjective/Interval History
-
Date of Service: July 08, 2025
For EEG today
Objective Data
-
Labs:
Laboratory Results
07/08/25 07/08/25 07/08/25
01:56 08:21 16:00
APTT 64.0 H 71.2 H Pending
Sodium 152 H
Potassium 3.6
Chloride 116 H
Carbon Dioxide 30
BUN 85 H
Creatinine 1.6 H
Glucose 163 H
Calcium 8.0 L
Vital Signs:
Vital Signs
Temp Pulse Resp BP Pulse Ox
100.2 F 86 27 112/53 96
07/08/25 11:21 07/08/25 12:00 07/07/25 20:01 07/06/25 20:58 07/08/25 12:00
I&O
07/07/25 07/08/25 07/09/25
06:59 06:59 06:59
Intake Total 5711 / 5944 6511.5 / 6780.5 2301.3 / 2301.3
Output Total 5243 / 5243 3985 / 3985 730 / 730
Balance 468 / 701 2526.5 / 2795.5 1571.3 / 1571.3
Physical Exam
-
General: Other (Unresponsive)
HEENT: Normocephalic, Atraumatic, Tracheotomy, Tracheostomy Collar, No Ptosis, PERRLA, Nose Appears Normal and Other
Respiratory: Rales, Rhonchi and Non Labored Respirations
Cardiac: Regular Rhythm and S1/S2
Breast: Deferred by me
GI: Other (Colostomy bag, midline incision,PEG tube)
Musculoskeletal: No Clubbing and No Cyanosis
Skin: Warm
Psych: Other (Minimal communication)
[2025-07-08 15:10] LABS: Glucose - Point of Care 192 mg/dl (70-99)
[2025-07-08 16:13] LABS: Glucose - Point of Care 208 mg/dl (70-99)
[2025-07-08 16:24] LABS: APTT 85.7 Sec (23.4-35.0)
[2025-07-08 17:22] LABS: Glucose - Point of Care 201 mg/dl (70-99)
[2025-07-08 18:13] LABS: Glucose - Point of Care 202 mg/dl (70-99)
[2025-07-08 19:23] LABS: Glucose - Point of Care 187 mg/dl (70-99)
--- NOTE | 2025-07-08 20:00 | PTCARENOTE ---
assumed care, + cough, gag, and corneals, not following commands, WD to deep pain, PERRLA 3, RASS -4, CPOT 1, Sinus tach c PVCs and PACs, L rad a-line zeroed, +2 GA, +2 B/L hands, diaphoretic, Trach 8 shiley long, AC 26/500/12/80%, SpO2 95% lungs
coarse and diminished throughout, TF Jevity 1.5 advanced per order to 40ml c 25ml water flush, hypoactive bowels, colostomy pink budded c liquid brown output, morales c yellow output, skin and drains per worklist, R TL PICC, Hep, insulin, Levo, D5,
TPN gtts per worklist, safe environment maintained, otherwise refer to documentation
[2025-07-08 20:09] LABS: Glucose - Point of Care 176 mg/dl (70-99)
[2025-07-08] MEDS: Parenteral Nutrition, Central 2300 IV (20:37)
[2025-07-08 21:03] LABS: Glucose - Point of Care 169 mg/dl (70-99)
[2025-07-08] MEDS: LIPITOR 40 MG TUBE (21:26)
[2025-07-08] MEDS: PACERONE 200 MG TUBE (21:27)
[2025-07-08 22:08] LABS: Glucose - Point of Care 159 mg/dl (70-99)
[2025-07-08 22:43] LABS: APTT 77.9 Sec (23.4-35.0)
[2025-07-08 23:07] LABS: Glucose - Point of Care 159 mg/dl (70-99)
--- NOTE | 2025-07-09 00:31 | PTCARENOTE ---
systems reviewed, glycemic protocol per worklist, PTT sent second therapeutic, gtts per worklist, Levo increased COTTON SAMPLER notified holding on starting vaso per provider, otherwise refer to documentation.
[2025-07-09] MEDS: NOVOLIN R INSULIN INFUSION 100 IV ×4 (00:57→21:25)
[2025-07-09 01:06] LABS: Glucose - Point of Care 167 mg/dl (70-99)
[2025-07-09 03:07] LABS: Glucose - Point of Care 149 mg/dl (70-99)
--- NOTE | 2025-07-09 03:35 | PTCARENOTE ---
systems reviewed, trach inner cannula changed, CHG bath, abd wound repacked, labs sent, gtts per worklist, otherwise refer to documentation
[2025-07-09 03:55] LABS: Hematocrit 25.0 % (39.0-52.0); Hemoglobin 7.2 g/dL (13.0-18.0); Mean Corp Hgb Conc. 28.8 g/dL (33.0-37.0); Mean Corpuscular Volume 89.9 fL (80.0-94.0); Platelet Count 194 10^3/uL (130-400); Red Cell Dist. Width 16.9 % (11.5-14.5)
[2025-07-09 03:56] LABS: APTT 79.7 Sec (23.4-35.0)
[2025-07-09 04:08] LABS: Blood Urea Nitrogen 84 mg/dl (9-20); Calcium 8.3 mg/dl (8.4-10.2); Carbon Dioxide 33 mmol/L (22-30); Chloride 111 mmol/L (98-107); Estimated Creatinine Clearance 69 ml/min; Glucose 155 mg/dl (70-99); Potassium 3.9 mmol/L (3.5-5.1); Sodium 149 mmol/L (135-145); eGFR 47.82
[2025-07-09] MEDS: HEPARIN 25000 UNITS/250 ML IV ×3 (04:56→23:33)
[2025-07-09] MEDS: ZOSYN 100 IV ×3 (04:59→17:08)
[2025-07-09] MEDS: D5W 1000 IV ×2 (05:01→16:22)
[2025-07-09] MEDS: VANCOCIN 275 MG IV (05:03)
[2025-07-09 05:30] VITALS: BMI 37.7
[2025-07-09] MEDS: SOLU-CORTEF 50 MG IV ×3 (05:34→17:08)
[2025-07-09 06:21] LABS: Glucose - Point of Care 151 mg/dl (70-99)
--- NOTE | 2025-07-09 07:36 | W.PN.INTV ---
Today's Communication / Plan
Recommendations
Continue antibiotics per infectious disease
Tube feeds on hold for 6 hours
No change in ventilator-near maximum support
Add vasopressin
Prognosis extremely poor-comfort a priority
Assessment
-
64-year-old male with a past medical history of cardiomyopathy, hypertension, DM type II, history of chronic opioid use due to chronic arthritis now on buprenorphine, history of ERASMO, venous insufficiency and chronic back pain who presented with
shortness of breath, abdominal distention. Found to have severe colonic distention. Initially treated with neostigmine, attempted sigmoidoscopy without attempt. Underwent exploratory laparotomy 06/08/2025-developed shock requiring vasopressors and
remained on mechanical ventilation. We were consulted on 06/09/2025.
Acute hypoxemic respiratory failure s/p intubation 06/08
s/p laparotomy
s/p Laparotomy, fecal disimpaction, flexible sigmoidoscopy, small bowel resection, abdominal washout and gastrostomy tube 07/03/25
Resistant pseudomonas PNA, w/ prolonged vent dependence s/p trach 06/25 (Shiley 8.0 XLT)
TME
Pseudoobstruction with megacolon, failed conservative management, s/p ex lap
Septic shock-peritonitis, intra-abdominal abscesses, concern for rectal perforation and LLL pneumonia
Acute on chronic heart failure with reduced ejection fraction, LVEF 35%, Stage I diastolic dysfunction
CONY
Prolonged QTc
Hypernatremia
Chronic conditions ADMISSIONS NURSE:
Paroxysmal atrial flutter.
Hypertension
BPH
DM type II
chronic back pain
cardiomyopathy
venous insufficiency
history of ERASMO
severe osteoarthritis
chronic pain management due to arthritis
chronic buprenorphine use/narcotic use disorder
Pulmonary hypertension, estimated pulmonary artery systolic pressure 50-55
Morbid obesity
Plan
Sedation: none
Pain control: subutex, tylenol IV
Rass -3 to -4, goal 0
TME noted, EEG to evaluate for any nonconvulsive seizures--neg, repeat 07/08/2025-pending
Maintained off sedation > 5 days
Continues to be unresponsive except some response to sternal rub/grimacing
Hypernatremia an issue, remains on [id number] free water drip to 100 mL/h-free water deficit around 9 L
Chronic hypercapnia not the cause of mental status decline
CT head 07/01/2025-no acute intracranial abnormalities, mastoiditis
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
mild proptosis of the right globe, severe bilateral fluid opacifications of the mastoid air cells, severe bilateral hypotrichosis frontalis interna
Respiratory status remains extremely tenuous
Continue on current ventilator settings-FiO2 increased to 0.8, PEEP at 12-saturations 96%
ABGs and VBG's noted-chronic hypercapnia, not acidotic at this point-compensated
Attempt to wean FiO2-currently at 0.8-attempt to wean
PEEP currently at 12
Chest x-ray 07/09/25-stable left basilar opacification representing atelectasis or pneumonia and small left pleural effusion, right midlung opacification possibly pneumonitis
Hemodynamics remain variable
Norepinephrine continues-attempt to wean
Vasopressin added 07/09/2025
Follow lactate if needed
Monitor QTc
Replace potassium and magnesium as needed
PAF history, on outpatient Xarelto/history of cardioversion in January 2025/Amio PO
Heparin infusion, was held due to bloody secretions 06/25, enoxaparin p.m. started 06/26/25
Ok to resume heparin per surgery 07/06/25
Primarily group II PH related to underlying congestive heart failure
Continue to optimize intravascular volume, keep saturations above 90%, no indication for vasodilator therapy
Patient has been diuresing well with intermittent Lasix
In view of hyponatremia, start D5W infusion (~6L FWD)
Diuresis continues as tolerated
Monitor renal function, electrolytes, intake/output, lower extremity edema and weight
Replace electrolytes as needed
Cultures [id number] Pseudomonas
Continues with intermittent temperatures
Continue antibiotics per infectious disease-discussed the case with Dr. Quispe-Zosyn day 08/18, vancomycin day 10/18, empiric micafungin day 06/14
Infectious disease following-correspondence reviewed-antibiotics are futile at this point-prognosis extremely poor
Lumbar puncture could not be performed with body habitus on the ventilator
S/p ex lap, sigmoidectomy and end colostomy, iatrogenic spillage of stool, peritonitis, umbilical hernia repair, 06/08/2025
Small-volume stool output noted in the ostomy bag.
TPN infusing/insulin gtt
Diabetic nurse practitioner following-reviewed the case with her
Tube feeding stopped due to high residuals-currently on trickle feed 10 mL/h-advance per surgery
06/18/25, CT chest abdomen pelvis pursued, fluid noted in the abdomen.
Purulent discharge from inferior margin of surgical site, bedside drainage on 06/19, sent for cultures. Growing Pseudomonas
06/20, IR guided peritoneal drains x 2 placed for intra-abdominal collections noted on imaging, Pseudomonas noted on peritoneal fluid culture
CT 06/29/25 concerning for large intraabdominal fluid collection as well as concern for rectal perforation with free air
06/29, s/p IR guided intraperitoneal drain placement, serous drainage noted
Colorectal surgery on case-correspondence reviewed
s/p OR 07/03: Laparotomy, fecal disimpaction, flexible sigmoidoscopy, small bowel resection, abdominal washout and gastrostomy tube
DVT prophylaxis-on heparin drip
GI prophylaxis-on pantoprazole
Nutrition-TPN and tube feeds-trickle at 10 mL/h-attempted to increase to 40 mL/h-very high residuals-tube feeds on hold for 6 hours
Bedside range of motion
Once again multiorgan failure slowly deteriorating with multiple consultants suggesting no chance for meaningful recovery-Will continue to update and recommend DNR status/comfort
Dr. Eduardo updated on multidisciplinary rounds 07/08/2025-explained to multi organ dysfunction/failure, very poor prognosis, unlikely to recover from cardiopulmonary arrest, encouraged DNR status, understood but wants continued supportive
care-wishes to speak to infectious disease
Critical care statement: A total of 45 minutes of critical care time was provided for this patient today. This includes management of unstable vital signs, evaluation of the patient at bedside, reviewing the patient�s pertinent medical records
including radiographs, pressor management, ventilator management, microbiology, laboratory evaluations, and��discussion with primary team, consultants, pharmacy, nutrition, physical therapy, case management, charge nurse, critical care nursing, and
respiratory therapy.
Family Discussions
Xiomara-Goals of care discussion 07/02/25. I called patient's and updated about patient's current condition. Considering lack of significant progress over the days and now worsening encephalopathy, developing hypotension, increasing pressor
requirement and CONY, overall prognosis is very poor. I brought up the option of pursuing more comfort focused care. Patient's was appreciative of the input and wants to talk to other care providers including infectious disease and surgery
service.
Dr. Eduardo updated and reevaluated patient at the bedside 07/07/2025. Patient had MRI and had some desaturations which are now improvingDr. Jayce updated on MRI results-no acute stroke, many chronic findings including varices and severe
mastoiditisExplanation for mental status decline likely toxic metabolic encephalopathyDrMaren Eduardo reviewed chart and patient was seen by neurology on 07/02-Dr. Alfaro who felt patient had extremely poor prognosisDrMaren Eduardo contacted Dr. Laurent from
neurology to reevaluate after MRIDrMaren Eduardo contacted infectious disease and reviewed mastoiditis and asked if there was any additional changes neededENT may need to be consultedDiscussed CODE STATUS with -explained that if he had a
cardiopulmonary arrest that there was a high chance that he would not recover in a meaningful way-at this point she still wants full-court press including CPR/defibrillation if need be-we will respect her wishes
Dr. Eduardo updated on multidisciplinary rounds 07/08/2025-explained to multi organ dysfunction/failure, very poor prognosis, unlikely to recover from cardiopulmonary arrest, encouraged DNR status, understood but wants continued supportive
care-wishes to speak to infectious disease
Diagnostic Data
Chest x-ray 06/08/2025: Reviewed, ET tube in place. Left lower lobe airspace disease. Cardiomegaly
CT abdomen pelvis 06/05/2025: The patient is significantly distended, and much of the abdominal and upper pelvic soft tissues extending anterior and to the left of the [id number], which limits evaluation, as it becomes difficult to confidently
follow the loops of bowel. There is distention of the rectum with air and stool, measuring 9.3 cm in diameter. There is marked distention of the sigmoid colon which extends into the right and central upper abdomen, with the sigmoid colon measuring
up to 18 cm in diameter. The sigmoid colon contains a moderate to large amount of stool, mainly inferiorly. There appears to be moderate distention of the rest of the visualized colon. Small bowel loops are present, and do not appear to be
significantly distended, similar appearance to prior examination. Of note, the cecum cannot be confidently identified on the present examination. No gross evidence of free intraperitoneal air. There is patchy parenchymal opacity within the
visualized lower lungs, most likely atelectasis. A component of pneumonia is also possible, although felt to be less likely. There is no significant pleural effusion and no significant pericardial effusion. Coronary artery calcifications are
present. Please correlate with symptoms of and risk factors for coronary artery disease, with further workup as clinically appropriate. Of note, the stomach is not distended.
ECHO 04/28/25: Left ventricle is moderately dilated with moderately reduced systolic function; left ventricular ejection fraction is 35% by modified Avery's method. Global hypokinesis. Mild concentric left ventricular hypertrophy. Moderate
concentric left ventricular hypertrophy. Stage I diastolic dysfunction suggestive of abnormal relaxation. Mildly dilated right ventricle with low normal RV function.
Mild mitral regurgitation. Sclerotic aortic valve with aortic annular calcification and peak and mean gradients of 23and 12 mmHg, respectively. Estimated BORA is 1.5 cm2., using an LVOT of 1.9 cm. No aortic regurgitation seen. Mild aortic stenosis.
Mild tricuspid regurgitation. Estimated pulmonary artery pressure of 50-55 mmHg, assuming a right atrial pressure of 3-8 mmHg. Compared to previous echo 12/26/24, the PA pressure has increased from 35 to 55 mmHg. LVEF may have improved slightly
from 25 to 35%. Previous study did use Definity.
Subjective Dataa
Subjective Data
Date of Service:
Date of Service: July 09, 2025
Chief Complaint: First Aid Instructor Follow Up (Septic shock/respiratory failure require mechanical ventilation) and Pulmonary Follow Up
Subjective:
Continues to deteriorate, increased vasopressor requirements, gastrointestinal tract not working, unresponsive, no increased secretions
Review of Systems
General: Other (Per HPI)
Objective Data
Data Reviewed
Vital Signs / I&O / Oxygen:
Vital Signs
Temp Pulse Resp BP Pulse Ox
99 F 119 27 100/58 97
07/09/25 03:30 07/09/25 07:00 07/07/25 20:01 07/08/25 21:27 07/09/25 07:00
Intake and Output
07/08/25 07/09/25 07/10/25
06:59 06:59 06:59
Intake Total 6511.5 / 6780.5 8102.5 / 8102.5
Output Total 3985 / 3985 3175 / 3175
Balance 2526.5 / 2795.5 4927.5 / 4927.5
SaO2 [CPAP/PSV] 89
SaO2 [ASV] 98
SaO2 [A/C] 97
SaO2 97
Nasal Cannula flow liters per 3
minute
Physical Exam
General: Respiratory Distress (n), Comfortable (Currently on mechanical ventilation), Other (Large neck, obese) and Other (chronically ill appearing)
HEENT: Normocephalic, Anicteric and Tracheotomy
Cardiovascular: Regular Rhythm (Tachycardic), Murmur (1-2/6 systolic murmur) and Peripheral Edema (chronic venous stasis changes, BL 2+)
Respiratory: Wheeze (n), Crackles (minimal, BL), Rhonchi (n), Non-Labored Respirations (but tachypneic, shallow breaths) and Other (Tracheostomy)
GI: Soft, Distended (Morbidly obese), Non Tender and Other (Colostomy with trace amount of stool, 3 additional drains placed by IR service, continues with serous output)
Neurology: Lethargic, Non Verbal and Other (diminishing MS, not following commands)
Skin: Warm, Good Color, Cyanosis (n), Jaundice (n) and Rash (n)
Labs/Micro/Reports
Lab Data
07/09/25 03:33
07/09/25 03:33
Laboratory Results
07/08/25 07/08/25 07/08/25
08:21 16:02 22:24
APTT 71.2 H 85.7 H 77.9 H
07/09/25
03:33
APTT 79.7 H
Microbiology
07/06/25 19:41 Blood/Venous Blood Culture - Preliminary
No Growth in 48 hours- Final report to follow
07/06/25 19:51 Blood/Venous Blood Culture - Preliminary
No Growth in 48 hours- Final report to follow
07/02/25 10:09 Blood/Venous Blood Culture - Final
No Growth - Final Report
07/02/25 10:03 Blood/Venous Blood Culture - Final
No Growth - Final Report
06/20/25 11:01 Bronch Right Lower Lobe Fungal Culture - Preliminary
Culture in progress.
Positive cultures are reported as soon as detected.
Final report to follow in four to five weeks.
[2025-07-09] MEDS: HYDROPHOR 1 APPLIC TOPICAL (07:40)
[2025-07-09] MEDS: DESENEX/MITRAZOL/ZEASORB 1 APPLIC TOPICAL ×2 (07:40→19:54)
[2025-07-09] MEDS: PROTONIX IV 40 MG IV (07:40)
[2025-07-09] MEDS: VITAMIN B1 100 MG TUBE (07:41)
[2025-07-09] MEDS: LASIX 40 MG IV (07:41)
[2025-07-09] MEDS: NSS (PRESERVATIVE FREE) 10 ML IV (07:41)
[2025-07-09] MEDS: SANTYL OINTMENT 1 APPLIC TOPICAL (07:41)
--- NOTE | 2025-07-09 07:51 | PN.DE.MGMTRT ---
Insulin Management
- -
07/09/2025: Diabetes Management Follow up
Patient admitted 06/05 with c/o difficulty breathing. Diabetes management consult 06/15. PMH 5 weeks of constipation with abdominal distention, HTN, A-Fib, CHF Prior to admission was taking Lantus 24 units daily with NovoLog 20 units AC and Farxiga 5
mg daily. A1C on admission 7.1%, Cr 1.5, eGFR 51.69 today.
Patient remains intubated and sedated. Information obtained from chart and patient nurse and pharmacist.
S/P OR 06/08 for lysis of adhesions, sigmoidectomy, with end descending colostomy and s/p tracheostomy 06/25, s/p OR for washout, disimpaction, PEG.
Receiving TPN. IV D5W continues, contributing to Hyperglycemia of >200. Tube feeds increased yesterday, now off due to 475 residual.
Glucose range 159 to 202. Patient has required 8 to 20 units of insulin per hour. Receiving steroids, 50 mg hydrocortisone IV Q6 hours.
Will continue critical care glycemic protocol.
Discussed with nurse, and retirement plan specialist team. Will cont to follow.
Diabetes History
- -
Type of Diabetes: 2 requiring insulin
Pre-Admission Diabetes Regimen
07/09/25
03:33
Creatinine 1.6 H
Lab Results
Hemoglobin A1c 7.8 % (4.0-5.6) H 06/22/25 03:20
Insulin Pump Settings
IP Diabetes Regimen
07/08/25 07/08/25 07/08/25
09:10 11:16 12:56
Glucose
POC Glucose 180 H 168 H 164 H
07/08/25 07/08/25 07/08/25
14:59 16:02 17:02
Glucose
POC Glucose 192 H 208 H 201 H
07/08/25 07/08/25 07/08/25
18:01 19:12 19:58
Glucose
POC Glucose 202 H 187 H 176 H
07/08/25 07/08/25 07/08/25
20:52 21:57 22:56
Glucose
POC Glucose 169 H 159 H 159 H
07/09/25 07/09/25 07/09/25
00:55 02:56 03:33
Glucose 155 H
POC Glucose 167 H 149 H
07/09/25
06:10
Glucose
POC Glucose 151 H
Patient Education
--- NOTE | 2025-07-09 08:00 | PTCARENOTE ---
Assumed care of patient. Pt rec'd trach'd on ventilator. Unrestrained...non sedated. Occasionally opens eyes...weak delayed gag reflex. Pupils 3/sluggish. Makes no purposeful movements. S1 S2 irregular and distant to auscultation. Sinus tach
on monitor...PAC's/PVC's/couplets/bigem/trigem noted. +2 generalized edema. Weak RP's/DP's/PT's. New tubigrips applied. Heels elevated on pillows. #8 Ex long shiley trach. Current vent settings: 26/500/+12/80%. Sats 94% and above. New trach
ties, trach, and inner cannulas ordered and available at bedside. Lungs diminished throughout. Suctioned orally for scant yellow/segovia secretions. Trach care completed. Abdomen obese...hypo BS. GT @ 3cm...Jevity 1.5 @ 40ml/hr w/ 25ml/hr water
flushes. made aware of pt's high residual (475 mls). Order rec'd to stop TF's, discard residual and recheck residuals in 6hrs. LLQ colostomy w/ pink budded stoma draining brown liquid stool. Intact appliance noted. Morales draining
yellow urine w/ sediment...morales care done. Skin pale in color and diaphoretic. Intact sacral foam changed yesterday. LLQ perc drain noted...new dressing applied. 3 CHRISTINE's noted on right side of abdomen. Mid abdominal incision changed per MD
orders. Right TL PICC w/ TPN, heparin, D5W, levophed, and insulin gtts infusing...see interventions. Left radial gio..flushed and zeroed. VS documented. Will continue to monitor.
[2025-07-09 08:24] LABS: Glucose - Point of Care 169 mg/dl (70-99)
--- NOTE | 2025-07-09 08:31 | PHA.VAN.FU ---
Vancomycin Assessment / Plan
- Assessment
Renal Function: Stable
WBC's are: Trending Up
Concomitant Antimicrobials: piperacillin/tazobactam, micafungin
- Dosing Plan
Continue: Vanc 1250mg Q24H
- Monitoring Plan
Trough Level: 07/10 05:30
- Follow Up
Pharmacy will continue to follow.
Vancomycin Follow UP
- -
Patient Age: 64
Patient Sex: Male
Vancomycin Day #: 12
Indication: Gi / Intra-Abdominal
Requesting Provider: Dr. Quispe
Pertinent Antimicrobial Allergies:
NKDA
Height / Weight:
Height 6 ft 3 in
Actual Weight 136.8 kg
Pertinent Past Medical History: BMI ~ 40
- Vital Signs / Lab Results
Temp Pulse Resp BP Pulse Ox
98.9 F 120 27 112/60 98
07/09/25 07:45 07/09/25 07:41 07/07/25 20:01 07/09/25 07:41 07/09/25 08:01
Lab Results - Hematology
07/06/25 07/07/25 07/08/25
10:12 03:27 01:56
WBC 17.6 H 16.7 H 24.0 H
07/09/25
03:33
WBC 26.7 H
Lab Results - Chemistry
07/07/25 07/08/25 07/09/25
03:27 01:56 03:33
BUN 86 H 85 H 84 H
Creatinine 1.7 H 1.6 H 1.6 H
Estimated Creat Clear 65 69 69
Microbiology Results
07/06/25 19:41 Blood Culture - Preliminary
Blood/Venous No Growth in 48 hours- Final report to follow
07/06/25 19:51 Blood Culture - Preliminary
Blood/Venous No Growth in 48 hours- Final report to follow
07/02/25 10:09 Blood Culture - Final
Blood/Venous No Growth - Final Report
07/02/25 10:03 Blood Culture - Final
Blood/Venous No Growth - Final Report
Therapeutic Drug Monitoring
Vancomycin Peak 28.0 ug/ml (18-26) H 06/30/25 21:13
Vancomycin Trough 15.4 ug/ml (5-20) 07/08/25 05:09
Random Vancomycin 17.7 ug/ml 07/06/25 03:25
[2025-07-09] MEDS: LEVOPHED 258 MG IV ×2 (08:46→19:54)
[2025-07-09] MEDS: MYCAMINE 105 MG IV (09:24)
--- NOTE | 2025-07-09 09:39 | W.PN.ID1 ---
Date of Service
Date of Service: July 09, 2025
Today's Communication
See below.
Assessment / Plan
# Fever
# Leukocytosis - trending up, also on steroid
# Septic shock on 1 pressor
# Encephalopathy
. Brain MRI no CVA
. EEG per neurology
. No suspicion for infectious encephalitis as patient currently on broad-spectrum antibiotics
# Bilateral fluid opacification of mastoid air cells.
. Common in setting of prolonged intubation
. Well-covered with broad-spectrum antibiotics
# 'Rectal perforation' (06/29) with large left intra-abd abscess
. 06/29 s/p IR perc drain placement
abscess cx's neg to date
. 07/03 OR Laparotomy, fecal disimpaction, small bowel resection, abdominal washout and gastrostomy tube
No evidence of a pelvic abscess/rectal stump leak
# Recent purulent peritonitis
# Colonic inertia with megacolon; status post ex lap, decompression, colostomy, stool leakage into the abdomen requiring washout 06/08/2025
. 06/08/25 Exploratory laparotomy, lysis of adhesions, sigmoidectomy, decompression of right colon, abdominal washout, creation of end descending colostomy, umbilical hernia repair
. No OR cx
. 06/19 Colorectal opened midline abd distal incision. cx cx Pseudomonas, mixed anaerobes
. 06/20 aspiration/drainage of right abdominal peritoneal collections x 2. 1 of 2 cx : Pseudomonas
# VDRF s/p trach 06/25/25
# PNA with CR- Pseudomonas
.06/15 s/p bronch with airway clearance; cx Pseudomonas
. 06/28 Sputum CR -Pseudomonas
# PEG
Plan:
- repeat blood cx's negative.
- CXR stable
- Continue current regimen Zosyn (d#10 of ), Vancomycin (d#12 of ), empiric Micafungin (d#8 of )
- Antibiotics are futile at this point. Yusuf been on prolonged course of abx's since 06/08 without significant response.
- Overall prognosis remains poor.
# Conditions SHOE SINGER
HFrEF
HTN
DM
Afib
HLD
Colonic Inertia / Dysmotility
Chronic opioid dependence
Advanced bilateral lower extremity venous insufficiency
Morbid obesity (BMI~43)
Chief Complaint
-: Fever, Leukocytosis and Other (Purulent peritonitis)
Vital Signs / Physical Exam
Vital Signs
Vital Signs
Temp Pulse Resp BP Pulse Ox
98.9 F 121 27 112/60 95
07/09/25 07:45 07/09/25 09:00 07/07/25 20:01 07/09/25 07:41 07/09/25 09:00
Physical Exam
Constitutional: Acutely Ill and Chronically Ill
Eyes: Sclera Anicteric
Oropharyngeal: Other (Tracheostomy to vent)
Cardiovascular: S1/S2 (tachycardic)
Pulmonary: Rhonchi and Other (trach dry)
Gastrointestinal: Soft, Decreased Bowel Sounds and Other (Upper abdominal drains x2, one with milky drainage. Left CHRISTINE drain dry. Ostomy in place, + stool. Midline dressing dry. PEG in place. ); Negative Distended
Genito-Urinary: Mason and Clear Urine
Extremities: Edema and Venous Insufficiency (Bilateral lower extremities)
Wound: Other (Lower abdominal wound dehisced with packing in place. No purulence.)
Neurological: Other (Responsive to voice and touch.)
Lines: PICC
Objective Data
Lab Data
Lab Results
07/09/25 03:33
07/09/25 03:33
PT 16.1 Sec (11.4-14.6) H 07/02/25 18:47
INR 1.24 07/02/25 18:47
APTT 79.7 Sec (23.4-35.0) H 07/09/25 03:33
Estimated Creat Clear 69 ml/min 07/09/25 03:33
Lactic Acid 1.2 mmol/L (0.7-2.0) 07/04/25 05:13
Total Bilirubin 0.8 mg/dl (0.2-1.3) 07/03/25 15:54
AST 21 U/L (17-59) 07/03/25 15:54
ALT 14 U/L (0-50) 07/03/25 15:54
Alkaline Phosphatase 91 U/L (38-126) 07/03/25 15:54
C-Reactive Protein > 270.00 mg/L (0.0-10.00) H 06/11/25 03:22
Most recent labs reviewed.
Micro Results:
07/06/25 19:41 Blood Culture - Preliminary
Blood/Venous No Growth in 48 hours- Final report to follow
07/06/25 19:51 Blood Culture - Preliminary
Blood/Venous No Growth in 48 hours- Final report to follow
07/02/25 10:09 Blood Culture - Final
Blood/Venous No Growth - Final Report
07/02/25 10:03 Blood Culture - Final
Blood/Venous No Growth - Final Report
06/20/25 11:01 Fungal Culture - Preliminary
Bronch Right Lower Lobe Culture in progress.
Positive cultures are reported as soon as detected.
Final report to follow in four to five weeks.
06/29/25 18:25 Wound Culture - Final
Abdomen No growth
Gram Stain - Final
06/29/25 18:25 Anaerobic Culture - Final
Abdomen NO ANAEROBES ISOLATED
06/27/25 10:17 Blood Culture - Final
Blood/Venous No Growth - Final Report
06/27/25 09:56 Blood Culture - Final
Blood/Venous No Growth - Final Report
06/28/25 15:42 Respiratory Culture - Final
Sputum Pseudomonas aeruginosa
Pseudomonas aeruginosa#2
Gram Stain - Final
06/15/25 10:08 Fungal Culture - Preliminary
Bronch Left Lower Lobe Evelyn albicans
06/20/25 16:38 Body Fluid Culture - Final
Peritoneal Fluid Gram Stain - Final
06/20/25 16:34 Body Fluid Culture - Final
Peritoneal Fluid Pseudomonas aeruginosa
Gram Stain - Final
06/19/25 09:59 Wound Culture - Final
Abdomen Pseudomonas aeruginosa
Gram Stain - Final
06/19/25 09:59 Anaerobic Culture - Final
Abdomen
06/20/25 11:01 Respiratory Culture - Final
Bronch Right Lower Lobe Pseudomonas aeruginosa
Gram Stain - Final
06/20/25 11:01 Acid Fast Bacilli Smear - Preliminary
Bronch Right Lower Lobe Acid Fast Bacilli Culture - Preliminary
06/17/25 13:11 MRSA Screen - Final
Nose No Methicillin Resistant Staphylococcus aureus isolated.
06/13/25 12:07 Blood Culture - Final
Blood/Venous No Growth - Final Report
06/13/25 12:07 Blood Culture - Final
Blood/Venous No Growth - Final Report
06/15/25 10:08 Acid Fast Bacilli Smear - Preliminary
Bronch Left Lower Lobe Acid Fast Bacilli Culture - Preliminary
06/15/25 10:08 Respiratory Culture - Final
Bronch Left Lower Lobe Pseudomonas aeruginosa
Gram Stain - Final
06/14/25 11:22 Respiratory Culture - Final
Tracheal Aspirate Pseudomonas aeruginosa
Gram Stain - Final
06/11/25 09:27 Blood Culture - Final
Blood/Venous No Growth - Final Report
06/11/25 09:59 Blood Culture - Final
Blood/Venous No Growth - Final Report
06/06/25 07:57 MRSA Screen - Final
Nose No Methicillin Resistant Staphylococcus aureus isolated.
Imaging:
06/24/25 CXR: Slightly increased basilar predominant airspace opacities, worse on the left. Findings may be related to pneumonia or worsening atelectasis.
06/18/25 CT c/a/p: Suspected moderate volume mildly complex presumed free fluid in the abdomen, overall increased in volume in comparison to recent prior study, most prominently located in the right subhepatic region, right subdiaphragmatic region
and likely left abdomen/pelvis.
06/16/25 CXR: There is moderate airspace disease in right lower lung field concerning for pneumonia. There is obscuration of the left hemidiaphragm suggesting left lower lobe pneumonia
06/15/25 CXR: No pneumothorax status post bronchoscopy. Progressive homogeneous increased retrocardiac opacity. Suspect mild left perihilar and right infrahilar opacity which could represent atelectasis or pneumonia.
06/13/25 CT a/p: Very limited study. Small volume fluid in the abdomen, particularly in the left abdomen mildly complex. As this fluid is incompletely included, it cannot be determined whether this totally represents likely free fluid or combination
of free fluid and abnormal focal fluid collection. Additional small abnormal focal fluid collections cannot be excluded on the basis of this markedly limited study. Apparent recent prior partial sigmoidectomy with large volume stool seen in the
residual sigmoid colon and rectum.
06/10 CXR: Stable CHF and bibasilar atelectasis and/or pneumonia.
06/08/25 CXR: Diffuse marked colonic dilation. Measurement of caliber of the upper colon is slightly greater then obstruction series of June 07, 2025. Multiple air-fluid levels compatible with stasis. Moderate amount of stool within the inferior
aspect of the right colon as well as within the rectum. No gross evidence for free intraperitoneal air.
06/05/25 CT a/p: Significant gaseous distention of a large portion of the colon. This contributes to limitation of this examination, as the patient cannot be fully included on the [id number] of the CT scanner. If there can be some distal colonic
decompression, repeat scan could be considered, when hopefully the patient could be entirely included on the [id number] of the exam. No gross evidence for free intraperitoneal air. Patchy parenchymal opacity within the visualized lower lung, most
likely atelectasis. Pneumonia is a differential consideration, felt to be less likely based on morphologic appearance.
[2025-07-09] MEDS: PITRESSIN 100 IV ×2 (09:57→18:15)
--- NOTE | 2025-07-09 10:00 | PTCARENOTE ---
Vasopressin started per MD orders. Goal is to titrate down levophed gtt to maintain MAP > 65.
[2025-07-09 10:15] LABS: Glucose - Point of Care 164 mg/dl (70-99)
--- NOTE | 2025-07-09 10:18 | W.PN.CRS1 ---
Today's Communication / Plan
-
As below
Assessment/Plan
-
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
obstipation associated with megacolon. WBC 11.[address] showing gaseous distention of the colon, diameter of the sigmoid up to 18 cm in diameter. He received a dose of neostigmine, which failed. He underwent attempt at decompressive sigmoidoscopy,
but encountered too much stool. Due to refractory nature of his issue, we proceeded with surgery.
06/08 exlap, sigmoidectomy, end-colostomy; iatrogenic spillage of stool - controlled and abdomen washed out, no colonic ischemia or perforation
06/15 and 06/20 bronch for mucous plugging
06/19 midline incision opened up, +pseudomonas/mixed aneerobes
06/20 IR drains x2 to RUQ +pseudomonas in 1 of 2
06/25 Tracheostomy placement
06/29- IR successful ultrasound-guided drainage catheter placement into a left-sided intraperitoneal fluid collection.
07/03 exlap, fecal disimpaction, flex sig, SBR and abdominal washout with placement of G-tube
Tmax of 101.6. WBC 26.7 from 24, Hemoglobin 7.2 from 7.7, CR 1.6, sodium 149
- Continue TPN/Insulin gtt; appreciate nutrition
�Stop tube feeds for 6 hours and recheck residual; if less than 100, okay to restart at 15/hour
�Eventual tube feed goal of 65ml/hr
�Free water per primary for hyponatremia
-Continue Zosyn, micafungin and Vanco, appreciate ID
- Continue morales given retention with removal
- Remains on a heparin drip
�Continue CHRISTINE and IR drains, will consider discontinuing if leukocytosis and stability continues
�Appreciate hospitalist and ICU teams
�Poor prognosis; ongoing goals of care discussion regarding DNR
Subjective Data
Procedure
06/08/25- Exploratory laparotomy, lysis of adhesions, sigmoidectomy, decompression of right colon, abdominal washout, creation of end descending colostomy, umbilical hernia repair
Subjective Data
Date of Service: July 09, 2025
Per nurse, no substantial events overnight. Levo was titrated up to 16, still not on vaso. Solu-Medrol was started. FiO2 remains at 80%. Having ostomy function.
Latest residual from G-tube was 435.
Objective Data
-
Vital Signs
Temp Pulse Resp BP Pulse Ox
98.9 F 121 27 112/60 95
07/09/25 07:45 07/09/25 09:00 07/07/25 20:01 07/09/25 07:41 07/09/25 09:00
Intake & Output
07/08/25 07/09/25 07/10/25
06:59 06:59 06:59
Intake Total 6511.5 / 6780.5 8102.5 / 8433.5 862 / 862
Output Total 3985 / 3985 3175 / 3175 350 / 350
Balance 2526.5 / 2795.5 4927.5 / 5258.5 512 / 512
Intake:
IV fluids (Total) 2893.5 / 3031.5 3803.5 / 3973.5 414 / 414
D5w 1,000 ml @ 60 mls/hr IV . 1410 / 1470 2240 / 2340 200 / 200
[id number] Rx#:[id number]
Heparin gtt 513 / 538 620 / 646 78 / 78
Insulin 190 / 198 294 / 308 46 / 46
Levophed gtt 780.5 / 825.5 649.5 / 679.5 90 / 90
IV piggybacks 505 / 505 680 / 680
TPN/PPN 2258 / 2354 2304 / 2400 288 / 288
Tube feeding 230 / 240 630 / 670 80 / 80
Feeding tube flush amount 625 / 650 685 / 710 80 / 80
Output:
Liquid stool amount 50 / 50 120 / 120
Colostomy 50 / 50 120 / 120
Drain Output (Total)
Right Lower Abdomen [place]-
Vo
Right Middle Abdomen [place]-
Vo B Placed in IR
Urine, Morales 3925 / 3925 3040 / 3040 350 / 350
Lab Results
07/09/25 03:33
07/09/25 03:33
Physical Exam
-
General: No Acute Distress and Other (Not sedated, not awake or alert, does not follow commands)
HEENT: Grossly Normal
Abdomen: Soft, Non Distended, Non Tender, No Guarding, No Rebound and Other (Ostomy pink with stool in the ostomy bag with slight reddish hue; JPs minimal output except RLQ CHRISTINE with 5 cc serosanguineous)
Skin: Warm and Dry
Wound: No Signs of Infection and Other (Midline incision without erythema or purulent drainage, inferior portion packed-wound base clean)
--- NOTE | 2025-07-09 12:00 | PTCARENOTE ---
No major changes in physical assessment since am. Percussion and rotation done per orders. Safe environment confirmed. Will continue to monitor.
[2025-07-09 12:09] LABS: Glucose - Point of Care 148 mg/dl (70-99)
--- NOTE | 2025-07-09 12:15 | PTCARENOTE ---
Pt taken off percussion a minute early due to desaturation. Sats 84-86% at end of percussion. Placed back on rotation. Sats increased to 94-96% once percussion stopped.
--- NOTE | 2025-07-09 13:22 | W.PN.HOSP.TC ---
Today's Communication/Plan
-
Continue management in the ICU.
Assessment / Plan
Assessment / Plan
Impression:
Mr. Knapp is a 64-year-old male with medical history of HFpEF, A-fib/flutter, IDDM, obesity, chronic pain with subsequent opioid dependence, and chronic constipation with colonic dysmotility who presented with shortness of breath, abdominal
bloating and discomfort, constipation. His last bowel movement was 2 weeks prior to arrival. He is having increasing difficulty breathing due to worsening abdominal distention. He has had multiple similar episodes since September 2024 and has
previously required decompression. He has been treated with enemas and neostigmine previously. Abdominal imaging showed significant colonic distention with air-filled loops of bowel. He also had patchy parenchymal opacities within the mid to
lower lungs. He was mildly hypoxic and has been started on antibiotics. He has remained afebrile with a mild leukocytosis of just over 12,000. He has been admitted for further evaluation and management.
Seen by GI, failed neostigmine, enema, status post nonsuccessful decompressive flexible sigmoidoscopy.
Surgery team consulted.
s/p Exploratory laparotomy, lysis of adhesions, sigmoidectomy, decompression of right colon, abdominal washout, creation of end descending colostomy, umbilical hernia repair on 06/08
admitted to ICU postoperatively, intubated.
Patient had fever,Infectious disease consult, started on zosyn.
Patient was still running fever, added micafungin.
CT chest: New right lower lobe consolidation with air bronchograms, atelectasis versus pneumonia, Possible small bilateral pleural effusions.
CT abdomen/pelvis shows: Small volume fluid in the abdomen, particularly in the left abdomen mildly complex. As this fluid is incompletely included, it cannot be determined whether this totally represents likely free fluid or combination of free
fluid and abnormal focal fluid collection. Additional small abnormal focal fluid collections cannot be excluded on the basis of this markedly limited study
S/p trach
MRI brain shows:
1. Mild diffuse cerebral and cerebellar volume loss.
2. Severe tortuosity and ectasia of the left intracranial vertebral artery.
3. 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
4. 2.7 cm and 1.6 cm RIGHT INTRAORBITAL VARICES causing mild proptosis of the right globe.
5. SEVERE BILATERAL FLUID OPACIFICATION of the MASTOID AIR CELLS.
6. Severe bilateral hyperostosis frontalis interna.
7. Small multilevel cervical disc herniations causing mild spinal cord compression and central canal stenosis.
repeat EEG
Assessment/Plan:
Colonic dysmotility/ileus:
- Abdomen remained significantly distended despite multiple medical enemas and subsequent bowel movements
- Upgraded to IMU 06/07, pushed 4 mg neostigmine around 1:30 PM, no significant peristaltic response
- Ultimately required surgical intervention, brought to the OR 06/08 for ex lap with lysis of adhesions and sigmoidectomy with end descending colostomy, decompression of right colon, abdominal washout and umbilical hernia repair
- ICU postoperatively, intubated
- Colorectal surgery following, colostomy with brown stool output
- IR placed 2 abdominal drains 06/20 with serous output, a third drain was placed 06/29 for new collection
- Rectum was distended with stool and was manually disimpacted 07/01
- Brought back to the OR on 07/03 for washout, disimpaction, and PEG placement
- Continue TPN, holding tube feeds for now however may be able to start trickle feeds if continues to have good stoma outputs
07/06
Start trickle feeding
Acute Metabolic encephalopathy:
- Unclear etiology but likely secondary to critical illness
- Currently responsive only to noxious stimuli, off of sedation
- CT brain 07/01 shows no acute intracranial abnormality, possible mastoiditis
- No findings on ABG to explain mental status
- Neurology following, EEG showed generalized slowing indicative of toxic/metabolic encephalopathy, no focal epileptiform activity
07/06
Hypernatremia, will start D5W
07/07
Hyponatremia slightly improved.
07/08
Sodium improved 152-patient still encephalopathic
MRI brain shows:
1. Mild diffuse cerebral and cerebellar volume loss.
2. Severe tortuosity and ectasia of the left intracranial vertebral artery.
3. 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
4. 2.7 cm and 1.6 cm RIGHT INTRAORBITAL VARICES causing mild proptosis of the right globe.
5. SEVERE BILATERAL FLUID OPACIFICATION of the MASTOID AIR CELLS.
6. Severe bilateral hyperostosis frontalis interna.
7. Small multilevel cervical disc herniations causing mild spinal cord compression and central canal stenosis.
repeat EEG pending
Septic shock, requiring pressors:
- Status post sigmoidectomy with multiple intra-abdominal fluid collections and pulmonary infection
- Respiratory culture from 06/28 growing Carbapenem resistant Pseudomonas
- Brought back to the OR 07/03 for abdominal washout
- Antibiotics Zosyn and IV vancomycin
- Restarted micafungin
- Vasopressors currently on hold
- Seroquel discontinued 06/27
07/08
Still with fever and worsening leukocytosis to 24
Acute hypoxic respiratory failure (currently intubated in the ICU postoperatively)
- Continue mechanical ventilation, ETT replaced 06/19 by administration assistant, trach placed 06/25
- Underwent bronchoscopy with BAL left lower lobe 06/15 by administration assistant, cultures growing Pseudomonas, repeat bronchoscopy with BAL 06/20 with aspiration of copious secretions
- Continuing IV antibiotics as outlined above
- Hypertonic nebulized saline 3 times a day with albuterol, aggressive chest PT
- Additional Lasix pushes as needed
Hypernatremia:
- Worsening again, resumed D5W
paroxismal A-fib/flutter:
- Currently rate controlled, holding home metoprolol, continue home amiodarone 200 mg at night
- Holding home Xarelto, have transitioned to therapeutic Lovenox which is on hold currently for OR
IDDM:
- Insulin drip.
HFrEF:
- Acute on chronic chronic
- Holding home metoprolol succinate 100 mg
- Lasix pushes as needed, holding spironolactone, monitor daily weights
- No need for afterload reduction due to hypotension
CODE STATUS: Full code
DVT prophylaxis: Surgery okay with IV heparin
Diet: TPN-trickle feed
Disposition: Continue management in the ICU.
Poor prognosis.
Total time spent on today's encounter was 74 minutes which included time spent in counseling the patient/family regarding diagnosis and treatment plan as listed above, goals of care, and symptom management. Case was discussed with nursing staff,
specialists, and care coordinators/case management. All labs and imaging personally reviewed by me. Remainder the time spent in detailed review of previous records, lab data, imaging, and other medical provider documentation.
Anticipated Discharge: > 48 hours
Subjective/Interval History
-
Date of Service: July 09, 2025
Still critically ill in the ICU
Objective Data
-
Labs:
Laboratory Results
07/09/25
03:33
WBC 26.7 H
Hgb 7.2 L
Hct 25.0 L
Plt Count 194
APTT 79.7 H
Sodium 149 H
Potassium 3.9
Chloride 111 H
Carbon Dioxide 33 H
BUN 84 H
Creatinine 1.6 H
Glucose 155 H
Calcium 8.3 L
Vital Signs:
Vital Signs
Temp Pulse Resp BP Pulse Ox
98.9 F 119 27 112/60 94
07/09/25 11:43 07/09/25 12:00 07/07/25 20:01 07/09/25 07:41 07/09/25 12:00
I&O
07/08/25 07/09/25 07/10/25
06:59 06:59 06:59
Intake Total 6511.5 / 6780.5 8102.5 / 8433.5 1487.3 / 1487.3
Output Total 3985 / 3985 3175 / 3175 1250 / 1250
Balance 2526.5 / 2795.5 4927.5 / 5258.5 237.3 / 237.3
Physical Exam
-
General: Other (Unresponsive)
HEENT: Normocephalic, Atraumatic, Tracheotomy, Tracheostomy Collar, No Ptosis, PERRLA, Nose Appears Normal and Other
Respiratory: Rales, Rhonchi and Non Labored Respirations
Cardiac: Regular Rhythm and S1/S2
Breast: Deferred by me
GI: Other (Colostomy bag, midline incision,PEG tube)
Musculoskeletal: No Clubbing and No Cyanosis
Skin: Warm
Psych: Other (Minimal communication)
[2025-07-09 14:14] LABS: Glucose - Point of Care 137 mg/dl (70-99)
--- NOTE | 2025-07-09 15:24 | CM ---
Continues on IV/Zosyn/lasix/Solu-Cortef/ Vanco, remains on vent, vasopressin, TPN (on hold x 6 hrs). Prognosis 'extremely poor'. Discharge POC: TBD.
--- NOTE | 2025-07-09 16:00 | PTCARENOTE ---
TF's restarted @ 1415 per MD orders. No major changes in physical assessment. Slowly weaning levophed gtt to maintain MAP > 65...see intervention. VS documented. Safe environment confirmed. Will continue to monitor.
[2025-07-09 16:15] LABS: Glucose - Point of Care 135 mg/dl (70-99)
[2025-07-09 18:15] LABS: Glucose - Point of Care 133 mg/dl (70-99)
[2025-07-09 20:10] LABS: Glucose - Point of Care 135 mg/dl (70-99)
--- NOTE | 2025-07-09 20:38 | PTCARENOTE ---
Assumed care of pt at 1900. Pt minimally responsive, refer to neurological assessment flowsheet. Received pt on double concentrated Levophed at 8mcg/min, Vasopressin at 0.03 units/min, Heparin drip, insulin drip per critical care glycemic protocol,
also on D5W and TPN. Vent settings at start of shift: AC 26/500/80/12, weaned down to 60% FiO2 at 2031 by RT. Assessment as documented in nursing shift assessment flowsheet. TF residual checked at 1999 and was 270mL, per order hold TF if residual
>150mL, TF currently on hold.
[2025-07-09] MEDS: Parenteral Nutrition, Central 2300 IV (20:43)
[2025-07-09] MEDS: LIPITOR 40 MG TUBE (21:12)
[2025-07-09] MEDS: PACERONE 200 MG TUBE (21:12)
[2025-07-09 22:26] LABS: Glucose - Point of Care 141 mg/dl (70-99)
[2025-07-10] MEDS: ZOSYN 100 IV ×5 (00:20→22:53)
[2025-07-10] MEDS: SOLU-CORTEF 50 MG IV ×5 (00:20→22:52)
[2025-07-10 00:29] LABS: Glucose - Point of Care 150 mg/dl (70-99)
--- NOTE | 2025-07-10 01:39 | PTCARENOTE ---
Assessment unchanged. Continues on Levo, Vaso, Heparin, Insulin, TPN, and D5W. CHG cloth bath done, linens changed.
[2025-07-10] MEDS: D5W 1000 IV ×2 (01:52→16:00)
[2025-07-10 02:25] LABS: Glucose - Point of Care 148 mg/dl (70-99)
[2025-07-10 04:21] LABS: Glucose - Point of Care 138 mg/dl (70-99)
[2025-07-10 04:32] LABS: APTT 79.0 Sec (23.4-35.0)
--- NOTE | 2025-07-10 04:41 | PTCARENOTE ---
Assessment unchanged. TF continues to be held, 0200 residual was 165mL. Next residual check at 0800. Vasopressin turned off at 0412, pt continues on Levophed.
[2025-07-10 04:42] VITALS: BMI 37.7
[2025-07-10 04:44] LABS: Hematocrit 21.1 % (39.0-52.0); Hemoglobin 6.3 g/dL (13.0-18.0); Mean Corp Hgb Conc. 29.9 g/dL (33.0-37.0); Mean Corpuscular Volume 89.8 fL (80.0-94.0); Platelet Count 198 10^3/uL (130-400); Red Cell Dist. Width 17.1 % (11.5-14.5)
[2025-07-10 04:55] LABS: ALT (SGPT) 11 U/L (0-50); AST (SGOT) 21 U/L (17-59); Albumin 2.5 g/dl (3.5-5.0); Alkaline Phosphatase 75 U/L (38-126); Blood Urea Nitrogen 95 mg/dl (9-20); Calcium 8.4 mg/dl (8.4-10.2); Carbon Dioxide 30 mmol/L (22-30); Chloride 110 mmol/L (98-107); Estimated Creatinine Clearance 65 ml/min; Glucose 136 mg/dl (70-99); Magnesium 2.3 mg/dl (1.6-2.3); Potassium 3.4 mmol/L (3.5-5.1); Sodium 144 mmol/L (135-145); Total Protein 6.2 g/dl (6.3-8.2); Triglycerides 153 mg/dl (10-149); eGFR 44.46
[2025-07-10] MEDS: KCL 50 IV (05:23)
[2025-07-10] MEDS: NOVOLIN R INSULIN INFUSION 100 IV ×2 (05:49→15:47)
[2025-07-10] MEDS: VANCOCIN 275 MG IV (06:05)
[2025-07-10 06:15] LABS: Glucose - Point of Care 142 mg/dl (70-99)
--- NOTE | 2025-07-10 07:34 | W.PN.INTV ---
Today's Communication / Plan
Recommendations
Continues to overall decline
Serum sodium improved-mental status has not
Attempted gentle diuresis
Antibiotics
Adjust ventilator
Prognosis extremely poor
Neurology to speak to -prognosis very poor for meaningful neurologic recovery
Assessment
-
64-year-old male with a past medical history of cardiomyopathy, hypertension, DM type II, history of chronic opioid use due to chronic arthritis now on buprenorphine, history of ERASMO, venous insufficiency and chronic back pain who presented with
shortness of breath, abdominal distention. Found to have severe colonic distention. Initially treated with neostigmine, attempted sigmoidoscopy without attempt. Underwent exploratory laparotomy 06/08/2025-developed shock requiring vasopressors and
remained on mechanical ventilation. We were consulted on 06/09/2025.
Acute hypoxemic respiratory failure s/p intubation 06/08
s/p laparotomy
s/p Laparotomy, fecal disimpaction, flexible sigmoidoscopy, small bowel resection, abdominal washout and gastrostomy tube 07/03/25
Resistant pseudomonas PNA, w/ prolonged vent dependence s/p trach 06/25 (Shiley 8.0 XLT)
TME
Pseudoobstruction with megacolon, failed conservative management, s/p ex lap
Septic shock-peritonitis, intra-abdominal abscesses, concern for rectal perforation and LLL pneumonia
Acute on chronic heart failure with reduced ejection fraction, LVEF 35%, Stage I diastolic dysfunction
CONY
Prolonged QTc
Hypernatremia
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
Paroxysmal atrial flutter.
Hypertension
BPH
DM type II
chronic back pain
cardiomyopathy
venous insufficiency
history of ERASMO
severe osteoarthritis
chronic pain management due to arthritis
chronic buprenorphine use/narcotic use disorder
Pulmonary hypertension, estimated pulmonary artery systolic pressure 50-55
Morbid obesity
Plan
Sedation: none
Pain control: subutex, tylenol IV
Rass -3 to -4, goal 0
TME noted, EEG to evaluate for any nonconvulsive seizures--neg, repeat 07/08/2025-pending
Maintained off sedation > 5 days
Continues to be unresponsive except some response to sternal rub/grimacing
Hypernatremia an issue, remains on [id number] free water drip to 100 mL/h-free water deficit around 9 L-slowly improving without change in mental status
Chronic hypercapnia not the cause of mental status decline
CT head 07/01/2025-no acute intracranial abnormalities, mastoiditis
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
mild proptosis of the right globe, severe bilateral fluid opacifications of the mastoid air cells, severe bilateral hypotrichosis frontalis interna
Mental status has not improved despite sodium correction, and neurology evaluations consistent with severe toxic metabolic injury
Neurology following-correspondence reviewed-very poor prognosis for meaningful neurologic recovery based on absence of improvement over time and absence of medical therapy which will significantly remediate the patient's symptoms
Respiratory status remains extremely tenuous
Continue on current ventilator settings-FiO2 increased to 0.8, PEEP at 12-saturations 96%
ABGs and VBG's noted-chronic hypercapnia, not acidotic at this point-compensated
Attempt to wean FiO2-currently at 0.6-attempt to wean
PEEP currently at 12
Overbreathing ventilator-increase set to rate
Chest x-ray 07/09/25-stable left basilar opacification representing atelectasis or pneumonia and small left pleural effusion, right midlung opacification possibly pneumonitis
Hemodynamics remain variable
Norepinephrine continues-attempt to wean
Vasopressin added 07/09/2025
Follow lactate if needed
Monitor QTc
Replace potassium and magnesium as needed
PAF history, on outpatient Xarelto/history of cardioversion in January 2025/Amio PO
Heparin infusion, was held due to bloody secretions 06/25, enoxaparin p.m. started 06/26/25
Ok to resume heparin per surgery 07/06/25
Primarily group II PH related to underlying congestive heart failure
Continue to optimize intravascular volume, keep saturations above 90%, no indication for vasodilator therapy
Patient has been diuresing with intermittent Lasix
In view of hyponatremia, start D5W infusion (~6L FWD)
Diuresis continues as tolerated
Monitor renal function, electrolytes, intake/output, lower extremity edema and weight
Replace electrolytes as needed
Monitor hemoglobin
Transfuse as needed-Will transfuse today for hemoglobin 6.3
Monitor for blood loss-no obvious sources and doubt retroperitoneal bleed-Will monitor on exam
Cultures [id number]-[id number]-misqgyldn Pseudomonas
Continues with intermittent temperatures
Continue antibiotics per infectious disease-discussed the case with Dr. Quispe-Annelisesydarcy day 08/18, vancomycin day 10/18, empiric micafungin day 06/14
Infectious disease following-correspondence reviewed-antibiotics are futile at this point-prognosis extremely poor
Lumbar puncture could not be performed with body habitus on the ventilator
S/p ex lap, sigmoidectomy and end colostomy, iatrogenic spillage of stool, peritonitis, umbilical hernia repair, 06/08/2025
Small-volume stool output noted in the ostomy bag.
TPN infusing/insulin gtt
Diabetic nurse practitioner following-reviewed the case with her
Tube feeding stopped due to high residuals-currently on trickle feed 10 mL/h-advance per surgery
06/18/25, CT chest abdomen pelvis pursued, fluid noted in the abdomen.
Purulent discharge from inferior margin of surgical site, bedside drainage on 06/19, sent for cultures. Growing Pseudomonas
06/20, IR guided peritoneal drains x 2 placed for intra-abdominal collections noted on imaging, Pseudomonas noted on peritoneal fluid culture
CT 06/29/25 concerning for large intraabdominal fluid collection as well as concern for rectal perforation with free air
06/29, s/p IR guided intraperitoneal drain placement, serous drainage noted
Colorectal surgery on case-correspondence reviewed
s/p OR 07/03: Laparotomy, fecal disimpaction, flexible sigmoidoscopy, small bowel resection, abdominal washout and gastrostomy tube
DVT prophylaxis-on heparin drip
GI prophylaxis-on pantoprazole
Nutrition-TPN and tube feeds-trickle at 10 mL/h-attempted to increase to 40 mL/h-very high residuals-tube feeds on hold for 6 hours
Bedside range of motion
Once again multiorgan failure slowly deteriorating with multiple consultants suggesting no chance for meaningful recovery-Will continue to update and recommend DNR status/comfort
Dr. Eduardo updated on multidisciplinary rounds 07/08/2025-explained to multi organ dysfunction/failure, very poor prognosis, unlikely to recover from cardiopulmonary arrest, encouraged DNR status, understood but wants continued supportive
care-wishes to speak to infectious disease
Dr. Eduardo reviewed as well as son on multidisciplinary rounds 07/10/2025-explained continued multiorgan dysfunction and failure with poor prognosis-they wish to talk to neurology and subsequently make decisions in regards to CODE STATUS-the
team has contacted neurology to speak to patient's about neurologic prognosis
Critical care statement: A total of 45 minutes of critical care time was provided for this patient today. This includes management of unstable vital signs, evaluation of the patient at bedside, reviewing the patient�s pertinent medical records
including radiographs, pressor management, ventilator management, microbiology, laboratory evaluations, and��discussion with primary team, consultants, pharmacy, nutrition, physical therapy, case management, charge nurse, critical care nursing, and
respiratory therapy.
Family Discussions
Xiomara-Goals of care discussion 07/02/25. I called patient's and updated about patient's current condition. Considering lack of significant progress over the days and now worsening encephalopathy, developing hypotension, increasing pressor
requirement and CONY, overall prognosis is very poor. I brought up the option of pursuing more comfort focused care. Patient's was appreciative of the input and wants to talk to other care providers including infectious disease and surgery
service.
Dr. Eduardo updated and reevaluated patient at the bedside 07/07/2025. Patient had MRI and had some desaturations which are now improvingDrMaren Eduardo updated on MRI results-no acute stroke, many chronic findings including varices and severe
mastoiditisExplanation for mental status decline likely toxic metabolic encephalopathyDr. Eduardo reviewed chart and patient was seen by neurology on 07/02-Dr. Alfaro who felt patient had extremely poor prognosisDrMaren Eduardo contacted Dr. Laurent from
neurology to reevaluate after MRIDrMaren Eduardo contacted infectious disease and reviewed mastoiditis and asked if there was any additional changes neededENT may need to be consultedDiscussed CODE STATUS with -explained that if he had a
cardiopulmonary arrest that there was a high chance that he would not recover in a meaningful way-at this point she still wants full-court press including CPR/defibrillation if need be-we will respect her wishes
Dr. Eduardo updated on multidisciplinary rounds 07/08/2025-explained to multi organ dysfunction/failure, very poor prognosis, unlikely to recover from cardiopulmonary arrest, encouraged DNR status, understood but wants continued supportive
care-wishes to speak to infectious disease
Diagnostic Data
Chest x-ray 06/08/2025: Reviewed, ET tube in place. Left lower lobe airspace disease. Cardiomegaly
CT abdomen pelvis 06/05/2025: The patient is significantly distended, and much of the abdominal and upper pelvic soft tissues extending anterior and to the left of the qthjf-me-uczh, which limits evaluation, as it becomes difficult to confidently
follow the loops of bowel. There is distention of the rectum with air and stool, measuring 9.3 cm in diameter. There is marked distention of the sigmoid colon which extends into the right and central upper abdomen, with the sigmoid colon measuring
up to 18 cm in diameter. The sigmoid colon contains a moderate to large amount of stool, mainly inferiorly. There appears to be moderate distention of the rest of the visualized colon. Small bowel loops are present, and do not appear to be
significantly distended, similar appearance to prior examination. Of note, the cecum cannot be confidently identified on the present examination. No gross evidence of free intraperitoneal air. There is patchy parenchymal opacity within the
visualized lower lungs, most likely atelectasis. A component of pneumonia is also possible, although felt to be less likely. There is no significant pleural effusion and no significant pericardial effusion. Coronary artery calcifications are
present. Please correlate with symptoms of and risk factors for coronary artery disease, with further workup as clinically appropriate. Of note, the stomach is not distended.
ECHO 04/28/25: Left ventricle is moderately dilated with moderately reduced systolic function; left ventricular ejection fraction is 35% by modified Avery's method. Global hypokinesis. Mild concentric left ventricular hypertrophy. Moderate
concentric left ventricular hypertrophy. Stage I diastolic dysfunction suggestive of abnormal relaxation. Mildly dilated right ventricle with low normal RV function.
Mild mitral regurgitation. Sclerotic aortic valve with aortic annular calcification and peak and mean gradients of 23and 12 mmHg, respectively. Estimated BORA is 1.5 cm2., using an LVOT of 1.9 cm. No aortic regurgitation seen. Mild aortic stenosis.
Mild tricuspid regurgitation. Estimated pulmonary artery pressure of 50-55 mmHg, assuming a right atrial pressure of 3-8 mmHg. Compared to previous echo 12/26/24, the PA pressure has increased from 35 to 55 mmHg. LVEF may have improved slightly
from 25 to 35%. Previous study did use Definity.
Subjective Dataa
Subjective Data
Date of Service:
Date of Service: July 10, 2025
Chief Complaint: Critical Care Paramedic Follow Up (Septic shock/respiratory failure require mechanical ventilation) and Pulmonary Follow Up
Subjective:
Unresponsive, increased respiratory rate, unable to obtain review of systems
Review of Systems
General: Unobtainable - Pat Unresp
Objective Data
Data Reviewed
Vital Signs / I&O / Oxygen:
Vital Signs
Temp Pulse Resp BP Pulse Ox
98.6 F 85 27 116/67 95
07/10/25 07:29 07/10/25 06:00 07/07/25 20:01 07/09/25 21:12 07/10/25 06:00
Intake and Output
07/09/25 07/10/25 07/11/25
06:59 06:59 06:59
Intake Total 8102.5 / 8533.5 7698.6 / 7698.6
Output Total 3175 / 3175 4020 / 4020
Balance 4927.5 / 5358.5 3678.6 / 3678.6
SaO2 [CPAP/PSV] 89
SaO2 [ASV] 98
SaO2 [A/C] 95
SaO2 95
Nasal Cannula flow liters per 3
minute
Physical Exam
General: Respiratory Distress (n), Comfortable (Currently on mechanical ventilation), Other (Large neck, obese) and Other (chronically ill appearing)
HEENT: Normocephalic, Anicteric and Tracheotomy
Cardiovascular: Regular Rhythm (Tachycardic), Murmur (1-2/6 systolic murmur) and Peripheral Edema (chronic venous stasis changes, BL 2+)
Respiratory: Wheeze (n), Crackles (minimal, BL), Rhonchi (n), Non-Labored Respirations (but tachypneic, shallow breaths) and Other (Tracheostomy)
GI: Soft, Distended (Morbidly obese), Non Tender and Other (Colostomy with trace amount of stool, 3 additional drains placed by IR service, continues with serous output)
Neurology: Lethargic, Non Verbal and Other (diminishing MS, not following commands)
Skin: Warm, Good Color, Cyanosis (n), Jaundice (n) and Rash (n)
Labs/Micro/Reports
Lab Data
07/10/25 04:08
07/10/25 04:08
Laboratory Results
07/10/25
04:08
APTT 79.0 H
Microbiology
07/06/25 19:51 Blood/Venous Blood Culture - Preliminary
No Growth in 72 hours- Final report to follow
07/06/25 19:41 Blood/Venous Blood Culture - Preliminary
No Growth in 72 hours- Final report to follow
07/02/25 10:09 Blood/Venous Blood Culture - Final
No Growth - Final Report
07/02/25 10:03 Blood/Venous Blood Culture - Final
No Growth - Final Report
--- NOTE | 2025-07-10 07:41 | PN.DE.MGMTRT ---
Insulin Management
- -
07/10/2025: Diabetes Management Follow up
Patient admitted 06/05 with c/o difficulty breathing. Diabetes management consult 06/15. PMH 5 weeks of constipation with abdominal distention, HTN, A-Fib, CHF Prior to admission was taking Lantus 24 units daily with NovoLog 20 units AC and Farxiga 5
mg daily. A1C on admission 7.1%, Cr 1.5, eGFR 51.69 today.
Patient remains intubated and sedated. and son at bedside, very supportive. Information obtained from chart and patient nurse and pharmacist.
S/P OR 06/08 for lysis of adhesions, sigmoidectomy, with end descending colostomy and s/p tracheostomy 06/25, s/p OR for washout, disimpaction, PEG.
Receiving TPN. IV D5W continues, contributing to Hyperglycemia. Trickle tube feeds resumed yesterday. Also receiving steroids, 50 mg hydrocortisone IV Q6 hours. Glucose range 138 to 150. Patient has required 12 to 14 units of insulin per hour. Will
continue critical care glycemic protocol.
Discussed with nurse, and staff radiation therapist team. Will cont to follow.
Diabetes History
- -
Type of Diabetes: 2 requiring insulin
Pre-Admission Diabetes Regimen
07/10/25
04:08
Creatinine 1.7 H
Lab Results
Hemoglobin A1c 7.8 % (4.0-5.6) H 06/22/25 03:20
Insulin Pump Settings
IP Diabetes Regimen
07/09/25 07/09/25 07/09/25
08:05 10:03 11:58
Glucose
POC Glucose 169 H 164 H 148 H
07/09/25 07/09/25 07/09/25
14:02 16:04 18:04
Glucose
POC Glucose 137 H 135 H 133 H
07/09/25 07/09/25 07/10/25
19:59 22:14 00:17
Glucose
POC Glucose 135 H 141 H 150 H
07/10/25 07/10/25 07/10/25
02:13 04:07 04:08
Glucose 136 H
POC Glucose 148 H 138 H
07/10/25
06:04
Glucose
POC Glucose 142 H
Patient Education
--- NOTE | 2025-07-10 07:54 | PHA.VAN.FU ---
Vancomycin Assessment / Plan
- Assessment
Renal Function: Stable
WBC's are: Trending Down
In the past 24 hrs, patient has been: Afebrile
Concomitant Antimicrobials: micafunging, piperacillin/tazobactam
- Assessment - Trough Based Monitoring
Trough Value: 17.2 - drawn ~24.5H after previous dose of 1250mg
- Dosing Plan
Adjust Regimen to: dosing by level
Dosing Comments: patient having accumulation and BUN increased today
- Monitoring Plan
Random Level: 07/11 0600
- Follow Up
Pharmacy will continue to follow.
Vancomycin Follow UP
- -
Patient Age: 64
Patient Sex: Male
Vancomycin Day #: 13
Indication: Gi / Intra-Abdominal
Requesting Provider: Dr. Quispe
Pertinent Antimicrobial Allergies:
NKDA
Height / Weight:
Height 6 ft 3 in
Actual Weight 136.7 kg
Pertinent Past Medical History: BMI ~ 40
- Vital Signs / Lab Results
Temp Pulse Resp BP Pulse Ox
98.6 F 85 27 116/67 95
07/10/25 07:29 07/10/25 06:00 07/07/25 20:01 07/09/25 21:12 07/10/25 07:38
Lab Results - Hematology
07/08/25 07/09/25 07/10/25
01:56 03:33 04:08
WBC 24.0 H 26.7 H 25.6 H
Lab Results - Chemistry
07/08/25 07/09/25 07/10/25
01:56 03:33 04:08
BUN 85 H 84 H 95 H
Creatinine 1.6 H 1.6 H 1.7 H
Estimated Creat Clear 69 69 65
Albumin 2.5 L
Microbiology Results
07/06/25 19:51 Blood Culture - Preliminary
Blood/Venous No Growth in 72 hours- Final report to follow
07/06/25 19:41 Blood Culture - Preliminary
Blood/Venous No Growth in 72 hours- Final report to follow
Therapeutic Drug Monitoring
Vancomycin Peak 28.0 ug/ml (18-26) H 06/30/25 21:13
Vancomycin Trough 17.2 ug/ml (5-20) 07/10/25 05:30
Random Vancomycin 17.7 ug/ml 07/06/25 03:25
[2025-07-10 08:22] LABS: Glucose - Point of Care 136 mg/dl (70-99)
[2025-07-10] MEDS: DESENEX/MITRAZOL/ZEASORB 1 APPLIC TOPICAL ×2 (08:35→20:23)
[2025-07-10] MEDS: HYDROPHOR 1 APPLIC TOPICAL (08:36)
[2025-07-10 08:37] VITALS: BP 133/64
[2025-07-10] MEDS: LASIX 40 MG IV (08:44)
[2025-07-10] MEDS: PROTONIX IV 40 MG IV (08:44)
[2025-07-10] MEDS: SANTYL OINTMENT 1 APPLIC TOPICAL (08:44)
[2025-07-10] MEDS: NSS (PRESERVATIVE FREE) 10 ML IV (08:44)
[2025-07-10 08:54] VITALS: BP 131/63
[2025-07-10] MEDS: HEPARIN 25000 UNITS/250 ML IV ×2 (09:19→18:55)
--- NOTE | 2025-07-10 09:24 | W.PN.ID1 ---
Date of Service
Date of Service: July 10, 2025
Today's Communication
Continue abx's for now.
Assessment / Plan
# Fever - resolved on hydrocortisone
# Leukocytosis - trending up, also on steroid
# Septic shock on 1 pressor
# Encephalopathy
. Brain MRI no CVA
. EEG per neurology
. No suspicion for infectious encephalitis as patient currently on broad-spectrum antibiotics
# Bilateral fluid opacification of mastoid air cells.
. Common in setting of prolonged intubation
. Well-covered with broad-spectrum antibiotics
# 'Rectal perforation' (06/29) with large left intra-abd abscess
. 06/29 s/p IR perc drain placement
abscess cx's neg to date
. 07/03 OR Laparotomy, fecal disimpaction, small bowel resection, abdominal washout and gastrostomy tube
No evidence of a pelvic abscess/rectal stump leak
# Recent purulent peritonitis
# Colonic inertia with megacolon; status post ex lap, decompression, colostomy, stool leakage into the abdomen requiring washout 06/08/2025
. 06/08/25 Exploratory laparotomy, lysis of adhesions, sigmoidectomy, decompression of right colon, abdominal washout, creation of end descending colostomy, umbilical hernia repair
. No OR cx
. 06/19 Colorectal opened midline abd distal incision. cx cx Pseudomonas, mixed anaerobes
. 06/20 aspiration/drainage of right abdominal peritoneal collections x 2. 1 of 2 cx : Pseudomonas
# VDRF s/p trach 06/25/25
# PNA with CR- Pseudomonas
.06/15 s/p bronch with airway clearance; cx Pseudomonas
. 06/28 Sputum CR -Pseudomonas
# PEG
Plan:
- repeat blood cx's negative.
- CXR stable
- Continue current regimen Zosyn (d#11 of ), Vancomycin (d#13 of ), empiric Micafungin (d#9 of 10)
- Antibiotics are futile at this point. Yusuf been on prolonged course of abx's since 06/08 without significant response.
- Overall prognosis remains poor.
# Conditions [employer]
HFrEF
HTN
DM
Afib
HLD
Colonic Inertia / Dysmotility
Chronic opioid dependence
Advanced bilateral lower extremity venous insufficiency
Morbid obesity (BMI~43)
Chief Complaint
-: Fever, Leukocytosis and Other (Purulent peritonitis)
Vital Signs / Physical Exam
Vital Signs
Vital Signs
Temp Pulse Resp BP Pulse Ox
99.0 F 88 26 131/63 96
07/10/25 08:54 07/10/25 08:54 07/10/25 08:54 07/10/25 08:54 07/10/25 08:54
Physical Exam
Constitutional: Acutely Ill and Chronically Ill
Eyes: Sclera Anicteric
Oropharyngeal: Other (Tracheostomy to vent)
Cardiovascular: S1/S2 (tachycardic)
Pulmonary: Rhonchi and Other (trach dry)
Gastrointestinal: Soft, Normal Bowel Sounds and Other (Upper abdominal drains x2, one with milky drainage. Left CHRISTINE drain dry. Ostomy in place, + soft stool. Midline dressing dry. PEG in place. ); Negative Distended
Genito-Urinary: Mason and Clear Urine
Extremities: Edema and Venous Insufficiency (Bilateral lower extremities)
Lines: PICC
Objective Data
Lab Data
Lab Results
07/10/25 04:08
07/10/25 04:08
PT 16.1 Sec (11.4-14.6) H 07/02/25 18:47
INR 1.24 07/02/25 18:47
APTT 79.0 Sec (23.4-35.0) H 07/10/25 04:08
Estimated Creat Clear 65 ml/min 07/10/25 04:08
Lactic Acid 1.2 mmol/L (0.7-2.0) 07/04/25 05:13
Total Bilirubin 0.4 mg/dl (0.2-1.3) 07/10/25 04:08
AST 21 U/L (17-59) 07/10/25 04:08
ALT 11 U/L (0-50) 07/10/25 04:08
Alkaline Phosphatase 75 U/L (38-126) 07/10/25 04:08
C-Reactive Protein > 270.00 mg/L (0.0-10.00) H 06/11/25 03:22
Most recent labs reviewed.
Micro Results:
07/06/25 19:51 Blood Culture - Preliminary
Blood/Venous No Growth in 72 hours- Final report to follow
07/06/25 19:41 Blood Culture - Preliminary
Blood/Venous No Growth in 72 hours- Final report to follow
07/02/25 10:09 Blood Culture - Final
Blood/Venous No Growth - Final Report
07/02/25 10:03 Blood Culture - Final
Blood/Venous No Growth - Final Report
06/20/25 11:01 Fungal Culture - Preliminary
Bronch Right Lower Lobe Culture in progress.
Positive cultures are reported as soon as detected.
Final report to follow in four to five weeks.
06/29/25 18:25 Wound Culture - Final
Abdomen No growth
Gram Stain - Final
06/29/25 18:25 Anaerobic Culture - Final
Abdomen NO ANAEROBES ISOLATED
06/27/25 10:17 Blood Culture - Final
Blood/Venous No Growth - Final Report
06/27/25 09:56 Blood Culture - Final
Blood/Venous No Growth - Final Report
06/28/25 15:42 Respiratory Culture - Final
Sputum Pseudomonas aeruginosa
Pseudomonas aeruginosa#2
Gram Stain - Final
06/15/25 10:08 Fungal Culture - Preliminary
Bronch Left Lower Lobe Evelyn albicans
06/20/25 16:38 Body Fluid Culture - Final
Peritoneal Fluid Gram Stain - Final
06/20/25 16:34 Body Fluid Culture - Final
Peritoneal Fluid Pseudomonas aeruginosa
Gram Stain - Final
06/19/25 09:59 Wound Culture - Final
Abdomen Pseudomonas aeruginosa
Gram Stain - Final
06/19/25 09:59 Anaerobic Culture - Final
Abdomen
06/20/25 11:01 Respiratory Culture - Final
Bronch Right Lower Lobe Pseudomonas aeruginosa
Gram Stain - Final
06/20/25 11:01 Acid Fast Bacilli Smear - Preliminary
Bronch Right Lower Lobe Acid Fast Bacilli Culture - Preliminary
06/17/25 13:11 MRSA Screen - Final
Nose No Methicillin Resistant Staphylococcus aureus isolated.
06/13/25 12:07 Blood Culture - Final
Blood/Venous No Growth - Final Report
06/13/25 12:07 Blood Culture - Final
Blood/Venous No Growth - Final Report
06/15/25 10:08 Acid Fast Bacilli Smear - Preliminary
Bronch Left Lower Lobe Acid Fast Bacilli Culture - Preliminary
06/15/25 10:08 Respiratory Culture - Final
Bronch Left Lower Lobe Pseudomonas aeruginosa
Gram Stain - Final
06/14/25 11:22 Respiratory Culture - Final
Tracheal Aspirate Pseudomonas aeruginosa
Gram Stain - Final
06/11/25 09:27 Blood Culture - Final
Blood/Venous No Growth - Final Report
06/11/25 09:59 Blood Culture - Final
Blood/Venous No Growth - Final Report
06/06/25 07:57 MRSA Screen - Final
Nose No Methicillin Resistant Staphylococcus aureus isolated.
Imaging:
06/24/25 CXR: Slightly increased basilar predominant airspace opacities, worse on the left. Findings may be related to pneumonia or worsening atelectasis.
06/18/25 CT c/a/p: Suspected moderate volume mildly complex presumed free fluid in the abdomen, overall increased in volume in comparison to recent prior study, most prominently located in the right subhepatic region, right subdiaphragmatic region
and likely left abdomen/pelvis.
06/16/25 CXR: There is moderate airspace disease in right lower lung field concerning for pneumonia. There is obscuration of the left hemidiaphragm suggesting left lower lobe pneumonia
06/15/25 CXR: No pneumothorax status post bronchoscopy. Progressive homogeneous increased retrocardiac opacity. Suspect mild left perihilar and right infrahilar opacity which could represent atelectasis or pneumonia.
06/13/25 CT a/p: Very limited study. Small volume fluid in the abdomen, particularly in the left abdomen mildly complex. As this fluid is incompletely included, it cannot be determined whether this totally represents likely free fluid or combination
of free fluid and abnormal focal fluid collection. Additional small abnormal focal fluid collections cannot be excluded on the basis of this markedly limited study. Apparent recent prior partial sigmoidectomy with large volume stool seen in the
residual sigmoid colon and rectum.
06/10 CXR: Stable CHF and bibasilar atelectasis and/or pneumonia.
06/08/25 CXR: Diffuse marked colonic dilation. Measurement of caliber of the upper colon is slightly greater then obstruction series of June 07, 2025. Multiple air-fluid levels compatible with stasis. Moderate amount of stool within the inferior
aspect of the right colon as well as within the rectum. No gross evidence for free intraperitoneal air.
06/05/25 CT a/p: Significant gaseous distention of a large portion of the colon. This contributes to limitation of this examination, as the patient cannot be fully included on the [id number] of the CT scanner. If there can be some distal colonic
decompression, repeat scan could be considered, when hopefully the patient could be entirely included on the [id number] of the exam. No gross evidence for free intraperitoneal air. Patchy parenchymal opacity within the visualized lower lung, most
likely atelectasis. Pneumonia is a differential consideration, felt to be less likely based on morphologic appearance.
--- NOTE | 2025-07-10 09:44 | W.PN.NEURO.1 ---
Today's Communication / Plan
-
No clear benefit from LP based on current results and prior antibiotic use
Consideration for hospice or ethics consult may be of benefit
Neuro Assessment/Plan
Assessment
Mr. Knapp is a 64-year-old male with medical history of HFpEF, A-fib/flutter, IDDM, obesity, chronic pain with subsequent opioid dependence, and chronic constipation with colonic dysmotility who presented to [facility] on 06/05/2025 with shortness of
breath, abdominal bloating and discomfort, constipation, neurology consulted for decrease in mental status.
Head CT 07/01/2025: No acute intracranial abnormality. Fluid within both mastoid cells compatible with mastoiditis.
EEG showing generalized slowing and triphasic waves 1/s consistent with toxic metabolic encephalopathy
Repeated EEG 07/08/2025 demonstrative of diffuse slowing
Brain MRI 07/07/2025:
1. Mild diffuse cerebral and cerebellar volume loss.
2. Severe tortuosity and ectasia of the left intracranial vertebral artery.
3. 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
4. 2.7 cm and 1.6 cm RIGHT INTRAORBITAL VARICES causing mild proptosis of the right globe.
5. SEVERE BILATERAL FLUID OPACIFICATION of the MASTOID AIR CELLS.
6. Severe bilateral hyperostosis frontalis interna.
7. Small multilevel cervical disc herniations causing mild spinal cord compression and central canal stenosis.
Labs: Na 156, BUN 86, Cr 1.7
Impression: decreased mental status in septic patient. 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
Prognosis very poor for meaningful neurological recovery based on absence of improvement over time and absence of medical therapy which will significantly remediate the patient's symptoms
Plan
No clear benefit from LP based on current results and prior antibiotic use
Consideration for hospice or ethics consult may be of benefit
Will follow as needed
Subjective/Objective
Subjective Data
Date of Service: July 10, 2025
Objective Data
Vital Signs
Temp Pulse Resp BP Pulse Ox
37.2 C 88 26 131/63 96
07/10/25 08:54 07/10/25 08:54 07/10/25 08:54 07/10/25 08:54 07/10/25 08:54
Lab Results
07/10/25 04:08
07/10/25 04:08
PT 16.1 Sec (11.4-14.6) H 07/02/25 18:47
INR 1.24 07/02/25 18:47
APTT 79.0 Sec (23.4-35.0) H 07/10/25 04:08
Sodium 144 mmol/L (135-145) 07/10/25 04:08
Potassium 3.4 mmol/L (3.5-5.1) L 07/10/25 04:08
BUN 95 mg/dl (9-20) H 07/10/25 04:08
Glucose 136 mg/dl (70-99) H 07/10/25 04:08
Calcium 8.4 mg/dl (8.4-10.2) 07/10/25 04:08
Phosphorus 3.6 mg/dl (2.5-4.5) 07/10/25 04:08
Zak-Q-Powcnqgrnjm Pept 6380 pg/ml 06/13/25 03:47
Vitamin B12 801 pg/ml (239-931) 07/07/25 15:41
Patient Allergies
No Known Allergies Allergy (Verified 06/05/25 19:56)
Data Reviewed
-
Labs: Report Reviewed
Reviewed with: Physician and Family (Via phone, all questions answered)
Old Records: Summarized
[2025-07-10 09:58] LABS: Glucose - Point of Care 142 mg/dl (70-99)
[2025-07-10 10:30] LABS: Glucose - Point of Care 144 mg/dl (70-99)
--- NOTE | 2025-07-10 10:30 | W.PN.CRS1 ---
Today's Communication / Plan
-
As below
Assessment/Plan
-
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
obstipation associated with megacolon. WBC 11.[address] showing gaseous distention of the colon, diameter of the sigmoid up to 18 cm in diameter. He received a dose of neostigmine, which failed. He underwent attempt at decompressive sigmoidoscopy,
but encountered too much stool. Due to refractory nature of his issue, we proceeded with surgery.
06/08 exlap, sigmoidectomy, end-colostomy; iatrogenic spillage of stool - controlled and abdomen washed out, no colonic ischemia or perforation
06/15 and 06/20 bronch for mucous plugging
06/19 midline incision opened up, +pseudomonas/mixed aneerobes
06/20 IR drains x2 to RUQ +pseudomonas in 1 of 2
06/25 Tracheostomy placement
06/29- IR successful ultrasound-guided drainage catheter placement into a left-sided intraperitoneal fluid collection.
07/03 exlap, fecal disimpaction, flex sig, SBR and abdominal washout with placement of G-tube
Afebrile, VSS, levo weaning down
WBC 25.6 from 26.7, Hb 6.3 from 7.2, CR 1.7
- Continue TPN/Insulin gtt; appreciate nutrition
� Hold tube feeds and placed G-tube to drainage; check residual tomorrow a.m. for possible restarting tube feeds
�Eventual tube feed goal of 65ml/hr
�Free water per primary for hyponatremia, now corrected
-Continue Zosyn, micafungin and Vanco, appreciate ID
- Continue morales given retention with removal
- Remains on a heparin drip; recommend pRBC for anemia less than Hb 7.0
�Continue CHRISTINE and IR drains, will consider discontinuing if leukocytosis and stability continues
�Appreciate hospitalist and ICU teams
�Appreciate neurology, given EEG findings, very poor prognosis of any meaningful recovery
�Ongoing goals of care discussion regarding DNR versus comfort measures
Subjective Data
Procedure
06/08/25- Exploratory laparotomy, lysis of adhesions, sigmoidectomy, decompression of right colon, abdominal washout, creation of end descending colostomy, umbilical hernia repair
Subjective Data
Date of Service: July 10, 2025
Per nurse, residuals remained greater than 250 and tube feeds have been held. Levophed was weaned down to 2 and vaso has been off.
Patient has been off sedation. Still not following commands. Still has pupillary reflex, but does not respond to verbal or noxious stimuli.
Objective Data
-
Vital Signs
Temp Pulse Resp BP Pulse Ox
99.0 F 88 26 131/63 96
07/10/25 08:54 07/10/25 08:54 07/10/25 08:54 07/10/25 08:54 07/10/25 08:54
Intake & Output
07/09/25 07/10/25 07/11/25
06:59 06:59 06:59
Intake Total 8102.5 / 8533.5 7698.6 / 7844.1 574.6 / 574.6
Output Total 3175 / 3175 4020 / 4220 1170 / 1170
Balance 4927.5 / 5358.5 3678.6 / 3624.1 -595.4 / -595.4
Intake:
IV fluids (Total) 3803.5 / 4073.5 4167.1 / 4312.6 574.6 / 574.6
D5w 1,000 ml @ 100 mls/hr IV . 1200 / 1200
Q10H JASBIR Rx#:[id number]
D5w 1,000 ml @ 100 mls/hr IV . 1200 / 1300 400 / 400
Q10H JASBIR Rx#:[id number]
D5w 1,000 ml @ 60 mls/hr IV . 2240 / 2340 200 / 200
[id number] JASBIR Rx#:[id number]
Heparin gtt 620 / 646 624 / 650 104 / 104
Insulin 294 / 308 318 / 330 48 / 48
Levophed gtt 649.5 / 679.5 452.1 / 459.6 22.6 / 22.6
Vasopressin gtt 173 / 173
IV piggybacks 680 / 680 752.5 / 752.5
TPN/PPN 2304 / 2400 2304 / 2304
Tube feeding 630 / 670 155 / 155
Feeding tube flush amount 685 / 710 320 / 320
Blood Product Amount Infused ( 0 / 0
mL)
Packed Rbc Leukoreduced Unit 0 / 0
[id number]
Output:
Liquid stool amount 120 / 120 700 / 700
Colostomy 120 / 120 700 / 700
Drain Output (Total)
Left Middle Abdomen 0 / 0
Right Lower Abdomen Milton-
Vo
Right Middle Abdomen Milton- 5 / 5 0 / 0
Vo B Placed in IR
Right Upper Abdomen Milton- 0 / 0
Vo A Placed in IR
Gastrointestinal tube output ( 270 / 270
Total)
Gastrostomy 270 / 270
Urine, Morales 3040 / 3040 3310 / 3510 900 / 900
Lab Results
07/10/25 04:08
07/10/25 04:08
Physical Exam
-
General: No Acute Distress and Other
HEENT: Grossly Normal
Abdomen: Soft, Non Distended, Non Tender, No Guarding, No Rebound and Other (Ostomy pink and productive of stool; JPs serosanguineous except RLQ CHRISTINE slightly serosanguineous; midline incision without erythema or drainage, inferior aspect with
packing, base is clean without purulence or necrotic tissue)
Neurological: Other (Not alert or awake, intact pupillary reflex, does not respond to noxious or verbal stimuli)
Skin: Warm and Diaphoretic
[2025-07-10 11:32] VITALS: BP 126/53
[2025-07-10] MEDS: MYCAMINE 105 MG IV (11:39)
--- NOTE | 2025-07-10 11:55 | W.PN.HOSP.TC ---
Today's Communication/Plan
-
Continue management in the ICU.
Poor prognosis.
DNR
Assessment / Plan
Assessment / Plan
Impression:
Mr. Knapp is a 64-year-old male with medical history of HFpEF, A-fib/flutter, IDDM, obesity, chronic pain with subsequent opioid dependence, and chronic constipation with colonic dysmotility who presented with shortness of breath, abdominal
bloating and discomfort, constipation. His last bowel movement was 2 weeks prior to arrival. He is having increasing difficulty breathing due to worsening abdominal distention. He has had multiple similar episodes since September 2024 and has
previously required decompression. He has been treated with enemas and neostigmine previously. Abdominal imaging showed significant colonic distention with air-filled loops of bowel. He also had patchy parenchymal opacities within the mid to
lower lungs. He was mildly hypoxic and has been started on antibiotics. He has remained afebrile with a mild leukocytosis of just over 12,000. He has been admitted for further evaluation and management.
Seen by GI, failed neostigmine, enema, status post nonsuccessful decompressive flexible sigmoidoscopy.
Surgery team consulted.
s/p Exploratory laparotomy, lysis of adhesions, sigmoidectomy, decompression of right colon, abdominal washout, creation of end descending colostomy, umbilical hernia repair on 06/08
admitted to ICU postoperatively, intubated.
Patient had fever,Infectious disease consult, started on zosyn.
Patient was still running fever, added micafungin.
CT chest: New right lower lobe consolidation with air bronchograms, atelectasis versus pneumonia, Possible small bilateral pleural effusions.
CT abdomen/pelvis shows: Small volume fluid in the abdomen, particularly in the left abdomen mildly complex. As this fluid is incompletely included, it cannot be determined whether this totally represents likely free fluid or combination of free
fluid and abnormal focal fluid collection. Additional small abnormal focal fluid collections cannot be excluded on the basis of this markedly limited study
S/p trach
MRI brain shows:
1. Mild diffuse cerebral and cerebellar volume loss.
2. Severe tortuosity and ectasia of the left intracranial vertebral artery.
3. 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
4. 2.7 cm and 1.6 cm RIGHT INTRAORBITAL VARICES causing mild proptosis of the right globe.
5. SEVERE BILATERAL FLUID OPACIFICATION of the MASTOID AIR CELLS.
6. Severe bilateral hyperostosis frontalis interna.
7. Small multilevel cervical disc herniations causing mild spinal cord compression and central canal stenosis.
Repeated EEG 07/08/2025 demonstrative of diffuse slowing.
Discussion with the family, patient is now DNR.
Assessment/Plan:
Colonic dysmotility/ileus:
- Abdomen remained significantly distended despite multiple medical enemas and subsequent bowel movements
- Upgraded to IMU 06/07, pushed 4 mg neostigmine around 1:30 PM, no significant peristaltic response
- Ultimately required surgical intervention, brought to the OR 06/08 for ex lap with lysis of adhesions and sigmoidectomy with end descending colostomy, decompression of right colon, abdominal washout and umbilical hernia repair
- ICU postoperatively, intubated
- Colorectal surgery following, colostomy with brown stool output
- IR placed 2 abdominal drains 06/20 with serous output, a third drain was placed 06/29 for new collection
- Rectum was distended with stool and was manually disimpacted 07/01
- Brought back to the OR on 07/03 for washout, disimpaction, and PEG placement
- Continue TPN, holding tube feeds for now however may be able to start trickle feeds if continues to have good stoma outputs
07/06
Start trickle feeding
07/10
High residual, feeding on hold
Acute Metabolic encephalopathy:
- Unclear etiology but likely secondary to critical illness
- Currently responsive only to noxious stimuli, off of sedation
- CT brain 07/01 shows no acute intracranial abnormality, possible mastoiditis
- No findings on ABG to explain mental status
- Neurology following, EEG showed generalized slowing indicative of toxic/metabolic encephalopathy, no focal epileptiform activity
07/06
Hypernatremia, will start D5W
07/07
Hyponatremia slightly improved.
07/08
Sodium improved 152-patient still encephalopathic
MRI brain shows:
1. Mild diffuse cerebral and cerebellar volume loss.
2. Severe tortuosity and ectasia of the left intracranial vertebral artery.
3. 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
4. 2.7 cm and 1.6 cm RIGHT INTRAORBITAL VARICES causing mild proptosis of the right globe.
5. SEVERE BILATERAL FLUID OPACIFICATION of the MASTOID AIR CELLS.
6. Severe bilateral hyperostosis frontalis interna.
7. Small multilevel cervical disc herniations causing mild spinal cord compression and central canal stenosis.
Repeated EEG 07/08/2025 demonstrative of diffuse slowing.
Still with impaired mental status despite improvement on hyponatremia
Discussion with the family, patient is now DNR.
Septic shock, requiring pressors:
- Status post sigmoidectomy with multiple intra-abdominal fluid collections and pulmonary infection
- Respiratory culture from 06/28 growing Carbapenem resistant Pseudomonas
- Brought back to the OR 07/03 for abdominal washout
- Antibiotics Zosyn and IV vancomycin
- Restarted micafungin
- Vasopressors currently on hold
- Seroquel discontinued 06/27
07/08
Still with fever and worsening leukocytosis to 24
Acute hypoxic respiratory failure (currently intubated in the ICU postoperatively)
- Continue mechanical ventilation, ETT replaced 06/19 by records and tape recordings engineer, trach placed 06/25
- Underwent bronchoscopy with BAL left lower lobe 06/15 by records and tape recordings engineer, cultures growing Pseudomonas, repeat bronchoscopy with BAL 06/20 with aspiration of copious secretions
- Continuing IV antibiotics as outlined above
- Hypertonic nebulized saline 3 times a day with albuterol, aggressive chest PT
- Additional Lasix pushes as needed
Hypernatremia:
- Worsening again, resumed D5W
paroxismal A-fib/flutter:
- Currently rate controlled, holding home metoprolol, continue home amiodarone 200 mg at night
- Holding home Xarelto, have transitioned to therapeutic Lovenox which is on hold currently for OR
IDDM:
- Insulin drip.
HFrEF:
- Acute on chronic chronic
- Holding home metoprolol succinate 100 mg
- Lasix pushes as needed, holding spironolactone, monitor daily weights
- No need for afterload reduction due to hypotension
CODE STATUS: Full code
DVT prophylaxis: Surgery okay with IV heparin
Diet: TPN-trickle feed
Disposition: Continue management in the ICU.
Poor prognosis.
DNR
Total time spent on today's encounter was 74 minutes which included time spent in counseling the patient/family regarding diagnosis and treatment plan as listed above, goals of care, and symptom management. Case was discussed with nursing staff,
specialists, and care coordinators/case management. All labs and imaging personally reviewed by me. Remainder the time spent in detailed review of previous records, lab data, imaging, and other medical provider documentation.
Anticipated Discharge: > 48 hours
Subjective/Interval History
-
Date of Service: July 10, 2025
Patient still critically ill in the ICU, patient is now DNR.
Objective Data
-
Labs:
Laboratory Results
07/10/25
04:08
WBC 25.6 H
Hgb 6.3 L*
Hct 21.1 L
Plt Count 198
APTT 79.0 H
Sodium 144
Potassium 3.4 L
Chloride 110 H
Carbon Dioxide 30
BUN 95 H
Creatinine 1.7 H
Glucose 136 H
Calcium 8.4
Total Bilirubin 0.4
AST 21
ALT 11
Alkaline Phosphatase 75
Vital Signs:
Vital Signs
Temp Pulse Resp BP Pulse Ox
97.6 F 94 26 126/53 93
07/10/25 11:42 07/10/25 11:32 07/10/25 11:32 07/10/25 11:32 07/10/25 11:32
I&O
07/09/25 07/10/25 07/11/25
06:59 06:59 06:59
Intake Total 8102.5 / 8533.5 7698.6 / 7844.1 824.6 / 824.6
Output Total 3175 / 3175 4020 / 4220 1170 / 1170
Balance 4927.5 / 5358.5 3678.6 / 3624.1 -345.4 / -345.4
Physical Exam
-
General: Other (Unresponsive)
HEENT: Normocephalic, Atraumatic, Tracheotomy, Tracheostomy Collar, No Ptosis, PERRLA, Nose Appears Normal and Other
Respiratory: Rales, Rhonchi and Non Labored Respirations
Cardiac: Regular Rhythm and S1/S2
Breast: Deferred by me
GI: Other (Colostomy bag, midline incision,PEG tube)
Musculoskeletal: No Clubbing and No Cyanosis
Skin: Warm
Psych: Other (Minimal communication)
[2025-07-10 12:07] LABS: Glucose - Point of Care 135 mg/dl (70-99)
--- NOTE | 2025-07-10 13:16 | PTCARENOTE ---
Pt received in bed @ 0700. Minimally responsive. Unable to follow commands. Does not open eyes. Weak gag reflex. #8 Shiley XL to AC (26/500/60%/12+); SaO2 93%. Copious thick segovia sputum around trach site. Oral care and suction provided. Sinus tach
with PAC's and PVC's on furnace erector. +2 pitting generalized anasarca. Weaning Levophed gtt with goal MAP > 65. PEG tube with high residuals, TF's on hold. Right TL PICC with D5W @ 100ml/hr, TPN, Insulin gtt, Heparin gtt, and Levophed gtt
infusing.
--- NOTE | 2025-07-10 13:19 | PTCARENOTE ---
Pt reassessed. New order to place PEG tube to drainage. CHG cloth bath provided with shampoo cap. Linens changed. Trach care performed. Wound care provided. Levophed gtt weaned off. Pt's discussed with doctor decision to change code status to
DNR. DNR order acknowledged.
[2025-07-10 15:03] LABS: Glucose - Point of Care 116 mg/dl (70-99)
--- NOTE | 2025-07-10 16:18 | CM ---
Neurology to discuss GOC with . Prognosis very poor for meaningful neurologic recovery. Discharge POC: TBD.
[2025-07-10 17:09] LABS: Glucose - Point of Care 110 mg/dl (70-99)
[2025-07-10 18:20] LABS: Glucose - Point of Care 121 mg/dl (70-99)
[2025-07-10 19:12] LABS: Glucose - Point of Care 127 mg/dl (70-99)
--- NOTE | 2025-07-10 20:04 | W.PN.UPDATE ---
Update Note
Progress Note Update
Approximately at 1945- Patient had episode of sustained hypoxemia, oxygen saturation 70s%. Bilateral breath sounds very diminished. Increased FIO2 for 100% without improvement, peep at 12. Patient suctioned without much mucus/secretions. Trach
inner cannula recently had been changed. Patient bagged with ambu bag and breath sounds improved and oxygen saturations improved slowly, sustained 80s% and now back up to 90s%. Obtained stat chest xray, no changes noted no pneumothorax. Oxygen
saturations improving at this time, possibly mucus plug causing saturations. Will obtain lab work: H&H, bmp, and ABG.
[2025-07-10] MEDS: Parenteral Nutrition, Central 2300 IV (20:13)
[2025-07-10 20:18] LABS: B.E. 4.4 mmol/L; HCO3 33.2 mmol/L (21-28); O2 Saturation % 99.5 % (94-98); PO2 202 mmHg (83-108)
[2025-07-10 20:20] LABS: PCO2 83 mmHg (35-48)
[2025-07-10 20:21] LABS: Glucose - Point of Care 133 mg/dl (70-99)
[2025-07-10 20:28] LABS: Hematocrit 23.1 % (39.0-52.0); Hemoglobin 6.8 g/dL (13.0-18.0)
[2025-07-10 20:47] LABS: Blood Urea Nitrogen 102 mg/dl (9-20); Calcium 8.3 mg/dl (8.4-10.2); Carbon Dioxide 31 mmol/L (22-30); Chloride 106 mmol/L (98-107); Estimated Creatinine Clearance 62 ml/min; Glucose 125 mg/dl (70-99); Potassium 4.0 mmol/L (3.5-5.1); Sodium 144 mmol/L (135-145); eGFR 41.51
--- NOTE | 2025-07-10 21:00 | PTCARENOTE ---
assumed care, pt unresponsive, PERRLA 5, weak gag, cough, and corneals, Sinus arrhythmia on the monitor c PVCs and PACs, weak pulses, L rad a-line zeroed, pt sats dropped into 70's, sats not recovering c 100% on the vent, RT and MOTOR AND GENERATOR ASSEMBLER notified, lungs
extremely diminished B/L, MOTOR AND GENERATOR ASSEMBLER ordered CXR and RT bagging PT @ bedside, breaths sounds more audible when pt was being bagged, labs and ABG sent, vent setting changed AC 26/500/12/80%, sats 83, 8 Mervin hendrickson, PEG draining greenish output,Colostomy
pink and budded c brown liq output, morales draining yellow output, wounds per worklist, gtts per worklist, critical glycemic protocol followed, R TL PICC , Hgb 6.8, 1 unit of PRBC given per order, otherwise refer to documentation
[2025-07-10 21:22] VITALS: BP 123/70
[2025-07-10 21:40] VITALS: BP 112/65
[2025-07-10 22:16] LABS: Glucose - Point of Care 133 mg/dl (70-99)
[2025-07-10] MEDS: PACERONE 200 MG TUBE (22:52)
[2025-07-10] MEDS: LIPITOR 40 MG TUBE (22:53)
[2025-07-10 23:03] VITALS: BP 122/69
[2025-07-11 00:07] LABS: Glucose - Point of Care 138 mg/dl (70-99)
--- NOTE | 2025-07-11 00:42 | PTCARENOTE ---
systems reviewed, CHG wipes and complete bed bath and linen change, gtts per worklist, inner cannula changed on tracheostomy, critical glycemic protocol followed, sats 96%, pt tolerated unit of blood, otherwise refer to documentation
[2025-07-11 01:06] LABS: Glucose - Point of Care 142 mg/dl (70-99)
[2025-07-11] MEDS: D5W 1000 IV ×2 (02:03→20:16)
[2025-07-11] MEDS: NOVOLIN R INSULIN INFUSION 100 IV ×3 (02:03→21:08)
[2025-07-11 02:09] LABS: Glucose - Point of Care 151 mg/dl (70-99)
[2025-07-11 03:12] LABS: B.E. 3.1 mmol/L; HCO3 31.5 mmol/L (21-28); O2 Saturation % 99.2 % (94-98); PO2 128 mmHg (83-108)
[2025-07-11 03:14] LABS: Glucose - Point of Care 158 mg/dl (70-99)
[2025-07-11 03:15] LABS: PCO2 77 mmHg (35-48)
[2025-07-11 03:21] LABS: Hematocrit 22.9 % (39.0-52.0); Hemoglobin 6.8 g/dL (13.0-18.0); Mean Corp Hgb Conc. 29.7 g/dL (33.0-37.0); Mean Corpuscular Volume 89.8 fL (80.0-94.0); Platelet Count 177 10^3/uL (130-400); Red Cell Dist. Width 16.8 % (11.5-14.5)
[2025-07-11 03:29] LABS: APTT 72.1 Sec (23.4-35.0)
[2025-07-11 03:38] LABS: Blood Urea Nitrogen 103 mg/dl (9-20); Calcium 8.1 mg/dl (8.4-10.2); Carbon Dioxide 30 mmol/L (22-30); Chloride 107 mmol/L (98-107); Estimated Creatinine Clearance 56 ml/min; Glucose 151 mg/dl (70-99); Potassium 3.9 mmol/L (3.5-5.1); Sodium 144 mmol/L (135-145); eGFR 36.58
[2025-07-11 04:06] LABS: Glucose - Point of Care 170 mg/dl (70-99)
[2025-07-11] MEDS: HEPARIN 25000 UNITS/250 ML IV ×3 (04:17→22:34)
[2025-07-11] MEDS: SOLU-CORTEF 50 MG IV ×4 (05:03→22:35)
[2025-07-11] MEDS: ZOSYN 100 IV ×4 (05:03→22:35)
[2025-07-11 05:10] VITALS: BP 104/51
[2025-07-11 05:16] VITALS: BMI 38.0
[2025-07-11 05:18] LABS: Glucose - Point of Care 171 mg/dl (70-99)
[2025-07-11 05:30] VITALS: BP 97/53
--- NOTE | 2025-07-11 05:36 | PTCARENOTE ---
systems reviewed, labs sent, Hgb 6.8 MONEY MANAGER notified, 1 unit PRBC given per order, gtts per worklist, otherwise refer to documentation
[2025-07-11] MEDS: LEVOPHED 258 MG IV (06:00)
[2025-07-11 06:35] VITALS: BP 125/57
[2025-07-11 07:00] LABS: Glucose - Point of Care 175 mg/dl (70-99)
--- NOTE | 2025-07-11 07:57 | W.PN.INTV ---
Today's Communication / Plan
Recommendations
Continue antibiotics
Adjust ventilator
Tube feeds per surgery
Transfuse as needed
Now DNR
Comfort a priority
Assessment
-
64-year-old male with a past medical history of cardiomyopathy, hypertension, DM type II, history of chronic opioid use due to chronic arthritis now on buprenorphine, history of ERASMO, venous insufficiency and chronic back pain who presented with
shortness of breath, abdominal distention. Found to have severe colonic distention. Initially treated with neostigmine, attempted sigmoidoscopy without attempt. Underwent exploratory laparotomy 06/08/2025-developed shock requiring vasopressors and
remained on mechanical ventilation. We were consulted on 06/09/2025.
Acute hypoxemic respiratory failure s/p intubation 06/08
s/p laparotomy
s/p Laparotomy, fecal disimpaction, flexible sigmoidoscopy, small bowel resection, abdominal washout and gastrostomy tube 07/03/25
Resistant pseudomonas PNA, w/ prolonged vent dependence s/p trach 06/25 (Shiley 8.0 XLT)
TME
Pseudoobstruction with megacolon, failed conservative management, s/p ex lap
Septic shock-peritonitis, intra-abdominal abscesses, concern for rectal perforation and LLL pneumonia
Acute on chronic heart failure with reduced ejection fraction, LVEF 35%, Stage I diastolic dysfunction
CONY
Prolonged QTc
Hypernatremia
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
Paroxysmal atrial flutter.
Hypertension
BPH
DM type II
chronic back pain
cardiomyopathy
venous insufficiency
history of ERASMO
severe osteoarthritis
chronic pain management due to arthritis
chronic buprenorphine use/narcotic use disorder
Pulmonary hypertension, estimated pulmonary artery systolic pressure 50-55
Morbid obesity
Plan
Sedation: none
Pain control: subutex, tylenol IV
Rass -3 to -4, goal 0
TME noted, EEG to evaluate for any nonconvulsive seizures--neg, repeat 07/08/2025-pending
Maintained off sedation > 5 days
Continues to be unresponsive except some response to sternal rub/grimacing
Hypernatremia was an issue, remains on A2F-mwjiccji free water drip to 100 mL/h and then dropped back to 70 mL/h-free water deficit initial calculated around 9 L-slowly improving without change in mental status
Chronic hypercapnia not the cause of mental status decline
CT head 07/01/2025-no acute intracranial abnormalities, mastoiditis
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
mild proptosis of the right globe, severe bilateral fluid opacifications of the mastoid air cells, severe bilateral hypotrichosis frontalis interna
Mental status has not improved despite sodium correction, and neurology evaluations consistent with severe toxic metabolic injury
Neurology following-correspondence reviewed-very poor prognosis for meaningful neurologic recovery based on absence of improvement over time and absence of medical therapy which will significantly remediate the patient's symptoms
Respiratory status remains extremely tenuous
Continue on current ventilator settings-FiO2 increased to 1.0, PEEP at 12-saturations 99%-attempt to decrease FiO2
ABG reviewed-hypercapnia persists as well as metabolic on top of respiratory acidosis
Previous ABGs and VBG's noted-chronic hypercapnia, not acidotic at this point-compensated
Attempt to wean FiO2-currently at 0.6-attempt to wean
Adjust ventilator-rate increased and increase tidal volume
PEEP currently at 12
Overbreathing ventilator-increase set to rate
Chest x-ray 07/09/25-stable left basilar opacification representing atelectasis or pneumonia and small left pleural effusion, right midlung opacification possibly pneumonitis
Hemodynamics remain variable
Norepinephrine continues-attempt to wean
Vasopressin added 07/09/2025-attempt to wean
Follow lactate if needed
Monitor QTc
Replace potassium and magnesium as needed
PAF history, on outpatient Xarelto/history of cardioversion in January 2025/Amio PO
Heparin infusion, was held due to bloody secretions 06/25, enoxaparin p.m. started 06/26/25
Ok to resume heparin per surgery 07/06/25
Primarily group II PH related to underlying congestive heart failure
Continue to optimize intravascular volume, keep saturations above 90%, no indication for vasodilator therapy
Patient has been diuresing with intermittent Lasix
In view of hyponatremia, continue with D5W infusion-intermittently calculated free water deficit
Diuresis continues as tolerated-creatinine has increased 07/11/2025-hold Lasix
Monitor renal function, electrolytes, intake/output, lower extremity edema and weight
Replace electrolytes as needed
Monitor hemoglobin
Transfuse as needed-Will transfuse today for hemoglobin 6.3-increased to 6.8-received another unit
Monitor for blood loss-no obvious sources and doubt retroperitoneal bleed-will monitor on exam
Cultures hvqglvgq-[id number]-[id number] Pseudomonas
Continues with intermittent temperatures
Continue antibiotics per infectious disease-discussed the case with Dr. Quispe-Zosyn day 08/18, vancomycin day 10/18, empiric micafungin day 06/14
Infectious disease following-correspondence reviewed-antibiotics are futile at this point-prognosis extremely poor
Lumbar puncture could not be performed with body habitus on the ventilator
S/p ex lap, sigmoidectomy and end colostomy, iatrogenic spillage of stool, peritonitis, umbilical hernia repair, 06/08/2025
Small-volume stool output noted in the ostomy bag.
TPN infusing/insulin gtt
Diabetic nurse practitioner following-reviewed the case with her
Tube feeding stopped due to high residuals-currently on trickle feed 10 mL/h-advance per surgery
06/18/25, CT chest abdomen pelvis pursued, fluid noted in the abdomen.
Purulent discharge from inferior margin of surgical site, bedside drainage on 06/19, sent for cultures. Growing Pseudomonas
06/20, IR guided peritoneal drains x 2 placed for intra-abdominal collections noted on imaging, Pseudomonas noted on peritoneal fluid culture
CT 06/29/25 concerning for large intraabdominal fluid collection as well as concern for rectal perforation with free air
06/29, s/p IR guided intraperitoneal drain placement, serous drainage noted
Colorectal surgery on case-correspondence reviewed
s/p OR 07/03: Laparotomy, fecal disimpaction, flexible sigmoidoscopy, small bowel resection, abdominal washout and gastrostomy tube
DVT prophylaxis-on heparin drip-May need to hold if hemoglobin continues to drop
GI prophylaxis-on pantoprazole
Nutrition-TPN and tube feeds-trickle at 10 mL/h-attempted to increase to 40 mL/h-very high residuals-tube feeds on held and will resume per surgery
Bedside range of motion
Once again multiorgan failure slowly deteriorating with multiple consultants suggesting no chance for meaningful recovery-Will continue to update and recommend DNR status/comfort
Dr. Eduardo updated on multidisciplinary rounds 07/08/2025-explained to multi organ dysfunction/failure, very poor prognosis, unlikely to recover from cardiopulmonary arrest, encouraged DNR status, understood but wants continued supportive
care-wishes to speak to infectious disease
Dr. Eduardo reviewed as well as son on multidisciplinary rounds 07/10/2025-explained continued multiorgan dysfunction and failure with poor prognosis-they wish to talk to neurology and subsequently make decisions in regards to CODE STATUS-the
team has contacted neurology to speak to patient's about neurologic prognosis-she elected on DNR status-we will respect her wishes
Critical care statement: A total of 40 minutes of critical care time was provided for this patient today. This includes management of unstable vital signs, evaluation of the patient at bedside, reviewing the patient�s pertinent medical records
including radiographs, pressor management, ventilator management, microbiology, laboratory evaluations, and��discussion with primary team, consultants, pharmacy, nutrition, physical therapy, case management, charge nurse, critical care nursing, and
respiratory therapy.
Family Discussions
Xiomara-Goals of care discussion 07/02/25. I called patient's and updated about patient's current condition. Considering lack of significant progress over the days and now worsening encephalopathy, developing hypotension, increasing pressor
requirement and CONY, overall prognosis is very poor. I brought up the option of pursuing more comfort focused care. Patient's was appreciative of the input and wants to talk to other care providers including infectious disease and surgery
service.
Dr. Eduardo updated and reevaluated patient at the bedside 07/07/2025. Patient had MRI and had some desaturations which are now improvingDrMaren Eduardo updated on MRI results-no acute stroke, many chronic findings including varices and severe
mastoiditisExplanation for mental status decline likely toxic metabolic encephalopathyDrMaren Eduardo reviewed chart and patient was seen by neurology on 07/02-Dr. Alfaro who felt patient had extremely poor prognosisDrMaren Eduardo contacted Dr. Laurent from
neurology to reevaluate after MRIDrMaren Eduardo contacted infectious disease and reviewed mastoiditis and asked if there was any additional changes neededENT may need to be consultedDiscussed CODE STATUS with -explained that if he had a
cardiopulmonary arrest that there was a high chance that he would not recover in a meaningful way-at this point she still wants full-court press including CPR/defibrillation if need be-we will respect her wishes
Dr. Eduardo updated on multidisciplinary rounds 07/08/2025-explained to multi organ dysfunction/failure, very poor prognosis, unlikely to recover from cardiopulmonary arrest, encouraged DNR status, understood but wants continued supportive
care-wishes to speak to infectious disease
Diagnostic Data
Chest x-ray 06/08/2025: Reviewed, ET tube in place. Left lower lobe airspace disease. Cardiomegaly
CT abdomen pelvis 06/05/2025: The patient is significantly distended, and much of the abdominal and upper pelvic soft tissues extending anterior and to the left of the [id number], which limits evaluation, as it becomes difficult to confidently
follow the loops of bowel. There is distention of the rectum with air and stool, measuring 9.3 cm in diameter. There is marked distention of the sigmoid colon which extends into the right and central upper abdomen, with the sigmoid colon measuring
up to 18 cm in diameter. The sigmoid colon contains a moderate to large amount of stool, mainly inferiorly. There appears to be moderate distention of the rest of the visualized colon. Small bowel loops are present, and do not appear to be
significantly distended, similar appearance to prior examination. Of note, the cecum cannot be confidently identified on the present examination. No gross evidence of free intraperitoneal air. There is patchy parenchymal opacity within the
visualized lower lungs, most likely atelectasis. A component of pneumonia is also possible, although felt to be less likely. There is no significant pleural effusion and no significant pericardial effusion. Coronary artery calcifications are
present. Please correlate with symptoms of and risk factors for coronary artery disease, with further workup as clinically appropriate. Of note, the stomach is not distended.
ECHO 04/28/25: Left ventricle is moderately dilated with moderately reduced systolic function; left ventricular ejection fraction is 35% by modified Avery's method. Global hypokinesis. Mild concentric left ventricular hypertrophy. Moderate
concentric left ventricular hypertrophy. Stage I diastolic dysfunction suggestive of abnormal relaxation. Mildly dilated right ventricle with low normal RV function.
Mild mitral regurgitation. Sclerotic aortic valve with aortic annular calcification and peak and mean gradients of 23and 12 mmHg, respectively. Estimated BORA is 1.5 cm2., using an LVOT of 1.9 cm. No aortic regurgitation seen. Mild aortic stenosis.
Mild tricuspid regurgitation. Estimated pulmonary artery pressure of 50-55 mmHg, assuming a right atrial pressure of 3-8 mmHg. Compared to previous echo 12/26/24, the PA pressure has increased from 35 to 55 mmHg. LVEF may have improved slightly
from 25 to 35%. Previous study did use Definity.
Subjective Dataa
Subjective Data
Date of Service:
Date of Service: July 11, 2025
Chief Complaint: Oxyacetylene Cutter Follow Up (Septic shock/respiratory failure require mechanical ventilation) and Pulmonary Follow Up
Subjective:
Still with minimal responsiveness, increased FiO2 requirements, more acidotic, hemoglobin dropped
Review of Systems
General: Other ( per HPI)
Objective Data
Data Reviewed
Vital Signs / I&O / Oxygen:
Vital Signs
Temp Pulse Resp BP Pulse Ox
98.7 F 87 26 125/57 97
07/11/25 06:35 07/11/25 06:35 07/11/25 06:35 07/11/25 06:35 07/11/25 06:35
Intake and Output
07/10/25 07/11/25 07/12/25
06:59 06:59 06:59
Intake Total 7698.6 / 7940.1 7300.7 / 7300.7
Output Total 4020 / 4220 4890 / 4890
Balance 3678.6 / 3720.1 2410.7 / 2410.7
SaO2 [CPAP/PSV] 89
SaO2 [ASV] 98
SaO2 [A/C] 36
SaO2 97
Nasal Cannula flow liters per 3
minute
Physical Exam
General: Respiratory Distress (n), Comfortable (Currently on mechanical ventilation), Other (Large neck, obese) and Other (chronically ill appearing)
HEENT: Normocephalic, Anicteric and Tracheotomy
Cardiovascular: Regular Rhythm (Tachycardic), Murmur (1-2/6 systolic murmur) and Peripheral Edema (chronic venous stasis changes, BL 2+)
Respiratory: Wheeze (n), Crackles (minimal, BL), Rhonchi (n), Non-Labored Respirations (but tachypneic, shallow breaths) and Other (Tracheostomy)
GI: Soft, Distended (Morbidly obese), Non Tender and Other (Colostomy with trace amount of stool, 3 additional drains placed by IR service, continues with serous output)
Neurology: Lethargic, Non Verbal and Other (diminishing MS, not following commands)
Skin: Warm, Good Color, Cyanosis (n), Jaundice (n) and Rash (n)
Labs/Micro/Reports
Lab Data
07/11/25 03:01
Laboratory Results
07/10/25 07/11/25
20:10 03:01
APTT 72.1 H
pH 7.21 L 7.22 L
pCO2 83 H* 77 H*
pO2 202 H 128 H
HCO3 33.2 H 31.5 H
O2 Delivery Level
Microbiology
07/06/25 19:41 Blood/Venous Blood Culture - Preliminary
No Growth in 4 days- Final report to follow
07/06/25 19:51 Blood/Venous Blood Culture - Preliminary
No Growth in 4 days- Final report to follow
[2025-07-11] MEDS: DESENEX/MITRAZOL/ZEASORB 1 APPLIC TOPICAL ×2 (08:03→20:16)
[2025-07-11] MEDS: HYDROPHOR 1 APPLIC TOPICAL (08:09)
[2025-07-11] MEDS: PROTONIX IV 40 MG IV (08:10)
[2025-07-11] MEDS: NSS (PRESERVATIVE FREE) 10 ML IV (08:10)
[2025-07-11] MEDS: LASIX IV (08:10)
[2025-07-11] MEDS: SANTYL OINTMENT TOPICAL ×2 (08:11→13:03)
--- NOTE | 2025-07-11 08:41 | PHA.VAN.FU ---
Vancomycin Assessment / Plan
- Assessment
Renal Function: SCR Increasing
WBC's are: Trending Down
In the past 24 hrs, patient has been: Afebrile
Concomitant Antimicrobials: MICAFUNGIN, ZOSYN
- Assessment - Therapeutic Drug Monitoring
Random Level: 18.7
- Dosing Plan
Dosing by Level: Hold off on dosing today
- Monitoring Plan
Random Level: 9/7 IN AM
- Follow Up
Pharmacy will continue to follow.
Vancomycin Follow UP
- -
Patient Age: 64
Patient Sex: Male
Vancomycin Day #: 14
Indication: Gi / Intra-Abdominal
Requesting Provider: Dr. Quispe
Pertinent Antimicrobial Allergies:
NKDA
Height / Weight:
Height 6 ft 3 in
Actual Weight 138 kg
Pertinent Past Medical History: BMI ~ 40
- Vital Signs / Lab Results
Temp Pulse Resp BP Pulse Ox
98.7 F 87 26 125/57 99
07/11/25 06:35 07/11/25 06:35 07/11/25 06:35 07/11/25 06:35 07/11/25 07:56
Lab Results - Hematology
07/09/25 07/10/25 07/11/25
03:33 04:08 03:01
WBC 26.7 H 25.6 H 24.3 H
Lab Results - Chemistry
07/09/25 07/10/25 07/10/25
03:33 04:08 20:10
BUN 84 H 95 H 102 H*
Creatinine 1.6 H 1.7 H 1.8 H
Estimated Creat Clear 69 65 62
Albumin 2.5 L
07/11/25
03:01
BUN 103 H*
Creatinine 2.0 H
Estimated Creat Clear 56
Albumin
Microbiology Results
07/06/25 19:41 Blood Culture - Preliminary
Blood/Venous No Growth in 4 days- Final report to follow
07/06/25 19:51 Blood Culture - Preliminary
Blood/Venous No Growth in 4 days- Final report to follow
Therapeutic Drug Monitoring
Vancomycin Peak 28.0 ug/ml (18-26) H 06/30/25 21:13
Vancomycin Trough 17.2 ug/ml (5-20) 07/10/25 05:30
Random Vancomycin 18.7 ug/ml 07/11/25 03:01
--- NOTE | 2025-07-11 08:51 | W.PN.ID1 ---
Date of Service
Date of Service: July 11, 2025
Today's Communication
DC vanco.
Last day micafungin
Continue Zosyn
Assessment / Plan
# Fever - resolved on hydrocortisone
# Leukocytosis - stable, also on steroid
# Septic shock on 1 pressor
# Encephalopathy
. Brain MRI no CVA
. EEG per neurology
. No suspicion for infectious encephalitis as patient currently on broad-spectrum antibiotics
. Per neurology, no meaningful recovery. Pt now DNR.
# CONY
.Renal function continues to decline
. DC Vancomycin. (Avoid Vanco/Zosyn)
# Bilateral fluid opacification of mastoid air cells.
. Common in setting of prolonged intubation
. Well-covered with broad-spectrum antibiotics
# 'Rectal perforation' (06/29) with large left intra-abd abscess
. 06/29 s/p IR perc drain placement
abscess cx's neg to date
. 07/03 OR Laparotomy, fecal disimpaction, small bowel resection, abdominal washout and gastrostomy tube
No evidence of a pelvic abscess/rectal stump leak
# Recent purulent peritonitis
# Colonic inertia with megacolon; status post ex lap, decompression, colostomy, stool leakage into the abdomen requiring washout 06/08/2025
. 06/08/25 Exploratory laparotomy, lysis of adhesions, sigmoidectomy, decompression of right colon, abdominal washout, creation of end descending colostomy, umbilical hernia repair
. No OR cx
. 06/19 Colorectal opened midline abd distal incision. cx cx Pseudomonas, mixed anaerobes
. 06/20 aspiration/drainage of right abdominal peritoneal collections x 2. 1 of 2 cx : Pseudomonas
# VDRF s/p trach 06/25/25
# PNA with CR- Pseudomonas
.06/15 s/p bronch with airway clearance; cx Pseudomonas
. 06/28 Sputum CR -Pseudomonas
# PEG
Plan:
- repeat blood cx's negative.
- CXR stable
- Continue current regimen Zosyn (d#12 of 14 ) and las day Micafungin (d#10 of )
- DC Vancomycin (d#14 of ),
- Antibiotics are futile at this point. Has been on prolonged course of abx's since 06/08 without significant response.
- Overall prognosis remains very poor.
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
HFrEF
HTN
DM
Afib
HLD
Colonic Inertia / Dysmotility
Chronic opioid dependence
Advanced bilateral lower extremity venous insufficiency
Morbid obesity (BMI~43)
Chief Complaint
-: Leukocytosis and Other (Purulent peritonitis)
Subjective / Review of Systems
Events noted. Hypoxemic last night. CXR no change.
Vital Signs / Physical Exam
Vital Signs
Vital Signs
Temp Pulse Resp BP Pulse Ox
98.2 F 87 26 125/57 99
07/11/25 08:00 07/11/25 06:35 07/11/25 06:35 07/11/25 06:35 07/11/25 07:56
Physical Exam
Constitutional: Acutely Ill and Chronically Ill
Oropharyngeal: Other
Cardiovascular: S1/S2 (tachycardic)
Pulmonary: Rhonchi and Other (trach dry; on vent)
Gastrointestinal: Soft, Normal Bowel Sounds and Other (Upper abdominal drains x2, one with milky drainage. Left CHRISTINE drain dry. Ostomy in place, + soft stool. Midline dressing dry. PEG in place. ); Negative Distended
Genito-Urinary: Mason and Clear Urine
Extremities: Edema and Venous Insufficiency (Bilateral lower extremities)
Neurological: Other (Unresponsive)
Lines: PICC
Objective Data
Lab Data
Lab Results
07/11/25 03:01
PT 16.1 Sec (11.4-14.6) H 07/02/25 18:47
INR 1.24 07/02/25 18:47
APTT 72.1 Sec (23.4-35.0) H 07/11/25 03:01
Estimated Creat Clear 56 ml/min 07/11/25 03:01
Lactic Acid 1.2 mmol/L (0.7-2.0) 07/04/25 05:13
Total Bilirubin 0.4 mg/dl (0.2-1.3) 07/10/25 04:08
AST 21 U/L (17-59) 07/10/25 04:08
ALT 11 U/L (0-50) 07/10/25 04:08
Alkaline Phosphatase 75 U/L (38-126) 07/10/25 04:08
C-Reactive Protein > 270.00 mg/L (0.0-10.00) H 06/11/25 03:22
Most recent labs reviewed.
Micro Results:
07/06/25 19:41 Blood Culture - Preliminary
Blood/Venous No Growth in 4 days- Final report to follow
07/06/25 19:51 Blood Culture - Preliminary
Blood/Venous No Growth in 4 days- Final report to follow
07/02/25 10:09 Blood Culture - Final
Blood/Venous No Growth - Final Report
07/02/25 10:03 Blood Culture - Final
Blood/Venous No Growth - Final Report
06/20/25 11:01 Fungal Culture - Preliminary
Bronch Right Lower Lobe Culture in progress.
Positive cultures are reported as soon as detected.
Final report to follow in four to five weeks.
06/29/25 18:25 Wound Culture - Final
Abdomen No growth
Gram Stain - Final
06/29/25 18:25 Anaerobic Culture - Final
Abdomen NO ANAEROBES ISOLATED
06/27/25 10:17 Blood Culture - Final
Blood/Venous No Growth - Final Report
06/27/25 09:56 Blood Culture - Final
Blood/Venous No Growth - Final Report
06/28/25 15:42 Respiratory Culture - Final
Sputum Pseudomonas aeruginosa
Pseudomonas aeruginosa#2
Gram Stain - Final
06/15/25 10:08 Fungal Culture - Preliminary
Bronch Left Lower Lobe Evelyn albicans
06/20/25 16:38 Body Fluid Culture - Final
Peritoneal Fluid Gram Stain - Final
06/20/25 16:34 Body Fluid Culture - Final
Peritoneal Fluid Pseudomonas aeruginosa
Gram Stain - Final
06/19/25 09:59 Wound Culture - Final
Abdomen Pseudomonas aeruginosa
Gram Stain - Final
06/19/25 09:59 Anaerobic Culture - Final
Abdomen
06/20/25 11:01 Respiratory Culture - Final
Bronch Right Lower Lobe Pseudomonas aeruginosa
Gram Stain - Final
06/20/25 11:01 Acid Fast Bacilli Smear - Preliminary
Bronch Right Lower Lobe Acid Fast Bacilli Culture - Preliminary
06/17/25 13:11 MRSA Screen - Final
Nose No Methicillin Resistant Staphylococcus aureus isolated.
06/13/25 12:07 Blood Culture - Final
Blood/Venous No Growth - Final Report
06/13/25 12:07 Blood Culture - Final
Blood/Venous No Growth - Final Report
06/15/25 10:08 Acid Fast Bacilli Smear - Preliminary
Bronch Left Lower Lobe Acid Fast Bacilli Culture - Preliminary
06/15/25 10:08 Respiratory Culture - Final
Bronch Left Lower Lobe Pseudomonas aeruginosa
Gram Stain - Final
06/14/25 11:22 Respiratory Culture - Final
Tracheal Aspirate Pseudomonas aeruginosa
Gram Stain - Final
06/11/25 09:27 Blood Culture - Final
Blood/Venous No Growth - Final Report
06/11/25 09:59 Blood Culture - Final
Blood/Venous No Growth - Final Report
06/06/25 07:57 MRSA Screen - Final
Nose No Methicillin Resistant Staphylococcus aureus isolated.
Imaging:
07/10/25 CXR: 1. SEVERE LEFT LOWER LOBE PNEUMONIA which appears unchanged.
2. Moderate diffusely increased interstitial markings throughout the upper lobes and right lower lobe. Diagnostic possibilities are (1) interstitial pneumonia or (2) interstitial pulmonary edema.
06/24/25 CXR: Slightly increased basilar predominant airspace opacities, worse on the left. Findings may be related to pneumonia or worsening atelectasis.
06/18/25 CT c/a/p: Suspected moderate volume mildly complex presumed free fluid in the abdomen, overall increased in volume in comparison to recent prior study, most prominently located in the right subhepatic region, right subdiaphragmatic region
and likely left abdomen/pelvis.
06/16/25 CXR: There is moderate airspace disease in right lower lung field concerning for pneumonia. There is obscuration of the left hemidiaphragm suggesting left lower lobe pneumonia
06/15/25 CXR: No pneumothorax status post bronchoscopy. Progressive homogeneous increased retrocardiac opacity. Suspect mild left perihilar and right infrahilar opacity which could represent atelectasis or pneumonia.
06/13/25 CT a/p: Very limited study. Small volume fluid in the abdomen, particularly in the left abdomen mildly complex. As this fluid is incompletely included, it cannot be determined whether this totally represents likely free fluid or combination
of free fluid and abnormal focal fluid collection. Additional small abnormal focal fluid collections cannot be excluded on the basis of this markedly limited study. Apparent recent prior partial sigmoidectomy with large volume stool seen in the
residual sigmoid colon and rectum.
06/10 CXR: Stable CHF and bibasilar atelectasis and/or pneumonia.
06/08/25 CXR: Diffuse marked colonic dilation. Measurement of caliber of the upper colon is slightly greater then obstruction series of June 07, 2025. Multiple air-fluid levels compatible with stasis. Moderate amount of stool within the inferior
aspect of the right colon as well as within the rectum. No gross evidence for free intraperitoneal air.
06/05/25 CT a/p: Significant gaseous distention of a large portion of the colon. This contributes to limitation of this examination, as the patient cannot be fully included on the [id number] of the CT scanner. If there can be some distal colonic
decompression, repeat scan could be considered, when hopefully the patient could be entirely included on the [id number] of the exam. No gross evidence for free intraperitoneal air. Patchy parenchymal opacity within the visualized lower lung, most
likely atelectasis. Pneumonia is a differential consideration, felt to be less likely based on morphologic appearance.
[2025-07-11 09:17] LABS: Glucose - Point of Care 172 mg/dl (70-99)
[2025-07-11] MEDS: MYCAMINE 105 MG IV (10:22)
[2025-07-11 11:18] LABS: Glucose - Point of Care 197 mg/dl (70-99)
[2025-07-11 11:23] LABS: Hematocrit 23.2 % (39.0-52.0); Hemoglobin 7.1 g/dL (13.0-18.0)
[2025-07-11 11:41] LABS: APTT 72.0 Sec (23.4-35.0)
--- NOTE | 2025-07-11 11:58 | W.PN.CRS1 ---
Today's Communication / Plan
-
Goals of care, poor prognosis.
TPN reordered
Assessment/Plan
-
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
obstipation associated with megacolon. WBC 11.[address] showing gaseous distention of the colon, diameter of the sigmoid up to 18 cm in diameter. He received a dose of neostigmine, which failed. He underwent attempt at decompressive sigmoidoscopy,
but encountered too much stool. Due to refractory nature of his issue, we proceeded with surgery.
06/08 exlap, sigmoidectomy, end-colostomy; iatrogenic spillage of stool - controlled and abdomen washed out, no colonic ischemia or perforation
06/15 and 06/20 bronch for mucous plugging
06/19 midline incision opened up, +pseudomonas/mixed aneerobes
06/20 IR drains x2 to RUQ +pseudomonas in 1 of 2
06/25 Tracheostomy placement
06/29- IR successful ultrasound-guided drainage catheter placement into a left-sided intraperitoneal fluid collection.
07/03 exlap, fecal disimpaction, flex sig, SBR and abdominal washout with placement of G-tube
Afebrile, VSS, levo weaning down
WBC 25.6 from 26.7, Hb 6.3 from 7.2, CR 1.7
- Continue TPN/Insulin gtt; appreciate nutrition
� Hold tube feeds and placed G-tube to drainage; check residual tomorrow a.m. for possible restarting tube feeds
�Eventual tube feed goal of 65ml/hr
�Free water per primary for hyponatremia, now corrected
-Continue Zosyn, micafungin and Vanco, appreciate ID
- Continue morales given retention with removal
- Remains on a heparin drip; recommend pRBC for anemia less than Hb 7.0
�Continue CHRISTINE and IR drains, will consider discontinuing if leukocytosis and stability continues
�Appreciate hospitalist and ICU teams
�Appreciate neurology, given EEG findings, very poor prognosis of any meaningful recovery
�Ongoing goals of care discussion.
Subjective Data
Procedure
06/08/25- Exploratory laparotomy, lysis of adhesions, sigmoidectomy, decompression of right colon, abdominal washout, creation of end descending colostomy, umbilical hernia repair
Subjective Data
Date of Service: July 11, 2025
Patient made DNR.
Objective Data
-
Vital Signs
Temp Pulse Resp BP Pulse Ox
98.7 F 87 26 125/57 99
07/11/25 11:40 07/11/25 06:35 07/11/25 06:35 07/11/25 06:35 07/11/25 11:17
Intake & Output
07/10/25 07/11/25 07/12/25
06:59 06:59 06:59
Intake Total 7698.6 / 7940.1 7300.7 / 7509.2 1052.1 / 1052.1
Output Total 4020 / 4220 4890 / 5140 625 / 625
Balance 3678.6 / 3720.1 2410.7 / 2369.2 427.1 / 427.1
Intake:
IV fluids (Total) 4167.1 / 4312.6 2741.7 / 2854.2 572.1 / 572.1
D5w 1,000 ml @ 100 mls/hr IV . 1200 / 1200
Q10H JASBIR Rx#:[id number]
D5w 1,000 ml @ 60 mls/hr IV . 200 / 200
[id number] JASBIR Rx#:[id number]
D5w 1,000 ml @ 70 mls/hr IV . 1200 / 1300 1800 / 1870 350 / 350
[id number] JASBIR Rx#:[id number]
Heparin gtt 624 / 650 624 / 651 135 / 135
Insulin 318 / 330 227 / 235 42 / 42
Levophed gtt 452.1 / 459.6 90.7 / 98.2 45.1 / 45.1
Vasopressin gtt 173 / 173
IV piggybacks 752.5 / 752.5 505 / 505
TPN/PPN 2304 / 2400 2304 / 2400 480 / 480
Tube feeding 155 / 155
Feeding tube flush amount 320 / 320
Blood Products 1000 / 1000
Packed red blood cells 1000 / 1000
Blood Product Amount Infused ( 750 / 750
mL)
Packed Rbc Leukoreduced Unit 250 / 250
[id number]
Packed Rbc Leukoreduced Unit 250 / 250
[id number]
Packed Rbc Leukoreduced Unit 250 / 250
[id number]
Output:
Liquid stool amount 700 / 700 350 / 350
Colostomy 700 / 700 350 / 350
Drain Output (Total) 10 5 / 5
Left Middle Abdomen 0 / 0 5 / 5
Right Lower Abdomen Milton- 10
Vo
Right Middle Abdomen Milton- 0 / 0
Vo B Placed in IR
Right Upper Abdomen Milton- 0 / 0
Vo A Placed in IR
Gastrointestinal tube output ( 1220 / 1220
Total)
Gastrostomy 1220 / 1220
Urine, Morales 3310 / 3510 3315 / 3565 600 / 600
Lab Results
07/11/25 03:01
Physical Exam
-
General: No Acute Distress and Other (Intubated)
Abdomen: Soft, Non Distended, Non Tender, No Guarding, No Rebound and Other (Ostomy pink and productive of stool; JPs serosanguineous except RLQ CHRISTINE slightly serosanguineous; midline incision without erythema or drainage, inferior aspect with
packing, base is clean without purulence or necrotic tissue)
Neurological: Other (Not alert or awake, intact pupillary reflex, does not respond to noxious or verbal stimuli, upgoing toes on Babinski, it appears he is posturing as well)
Skin: Warm and Diaphoretic
[2025-07-11 12:16] LABS: Glucose - Point of Care 197 mg/dl (70-99)
--- NOTE | 2025-07-11 12:20 | PTCARENOTE ---
Systems reviewed. Pt still unresponsive. Maintained on levo, insulin, tpn, heparin and d5w as ordered. Have weaned oxygen to 60% at current time. Peg tube continues to drainage. Labs drawn and sent as ordered. Otherwise no changes.
--- NOTE | 2025-07-11 12:47 | W.PN.HOSP.TC ---
Today's Communication/Plan
-
Continue management in the ICU.
Poor prognosis.
DNR
Assessment / Plan
Assessment / Plan
Impression:
Mr. Knapp is a 64-year-old male with medical history of HFpEF, A-fib/flutter, IDDM, obesity, chronic pain with subsequent opioid dependence, and chronic constipation with colonic dysmotility who presented with shortness of breath, abdominal
bloating and discomfort, constipation. His last bowel movement was 2 weeks prior to arrival. He is having increasing difficulty breathing due to worsening abdominal distention. He has had multiple similar episodes since September 2024 and has
previously required decompression. He has been treated with enemas and neostigmine previously. Abdominal imaging showed significant colonic distention with air-filled loops of bowel. He also had patchy parenchymal opacities within the mid to
lower lungs. He was mildly hypoxic and has been started on antibiotics. He has remained afebrile with a mild leukocytosis of just over 12,000. He has been admitted for further evaluation and management.
Seen by GI, failed neostigmine, enema, status post nonsuccessful decompressive flexible sigmoidoscopy.
Surgery team consulted.
s/p Exploratory laparotomy, lysis of adhesions, sigmoidectomy, decompression of right colon, abdominal washout, creation of end descending colostomy, umbilical hernia repair on 06/08
admitted to ICU postoperatively, intubated.
Patient had fever,Infectious disease consult, started on zosyn.
Patient was still running fever, added micafungin.
CT chest: New right lower lobe consolidation with air bronchograms, atelectasis versus pneumonia, Possible small bilateral pleural effusions.
CT abdomen/pelvis shows: Small volume fluid in the abdomen, particularly in the left abdomen mildly complex. As this fluid is incompletely included, it cannot be determined whether this totally represents likely free fluid or combination of free
fluid and abnormal focal fluid collection. Additional small abnormal focal fluid collections cannot be excluded on the basis of this markedly limited study
S/p trach
MRI brain shows:
1. Mild diffuse cerebral and cerebellar volume loss.
2. Severe tortuosity and ectasia of the left intracranial vertebral artery.
3. 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
4. 2.7 cm and 1.6 cm RIGHT INTRAORBITAL VARICES causing mild proptosis of the right globe.
5. SEVERE BILATERAL FLUID OPACIFICATION of the MASTOID AIR CELLS.
6. Severe bilateral hyperostosis frontalis interna.
7. Small multilevel cervical disc herniations causing mild spinal cord compression and central canal stenosis.
Repeated EEG 07/08/2025 demonstrative of diffuse slowing.
Discussion with the family, patient is now DNR.
Assessment/Plan:
Colonic dysmotility/ileus:
- Abdomen remained significantly distended despite multiple medical enemas and subsequent bowel movements
- Upgraded to IMU 06/07, pushed 4 mg neostigmine around 1:30 PM, no significant peristaltic response
- Ultimately required surgical intervention, brought to the OR 06/08 for ex lap with lysis of adhesions and sigmoidectomy with end descending colostomy, decompression of right colon, abdominal washout and umbilical hernia repair
- ICU postoperatively, intubated
- Colorectal surgery following, colostomy with brown stool output
- IR placed 2 abdominal drains 06/20 with serous output, a third drain was placed 06/29 for new collection
- Rectum was distended with stool and was manually disimpacted 07/01
- Brought back to the OR on 07/03 for washout, disimpaction, and PEG placement
- Continue TPN, holding tube feeds for now however may be able to start trickle feeds if continues to have good stoma outputs
07/06
Start trickle feeding
07/10
High residual, feeding on hold
Acute Metabolic encephalopathy:
- Unclear etiology but likely secondary to critical illness
- Currently responsive only to noxious stimuli, off of sedation
- CT brain 07/01 shows no acute intracranial abnormality, possible mastoiditis
- No findings on ABG to explain mental status
- Neurology following, EEG showed generalized slowing indicative of toxic/metabolic encephalopathy, no focal epileptiform activity
07/06
Hypernatremia, will start D5W
07/07
Hyponatremia slightly improved.
07/08
Sodium improved 152-patient still encephalopathic
MRI brain shows:
1. Mild diffuse cerebral and cerebellar volume loss.
2. Severe tortuosity and ectasia of the left intracranial vertebral artery.
3. 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
4. 2.7 cm and 1.6 cm RIGHT INTRAORBITAL VARICES causing mild proptosis of the right globe.
5. SEVERE BILATERAL FLUID OPACIFICATION of the MASTOID AIR CELLS.
6. Severe bilateral hyperostosis frontalis interna.
7. Small multilevel cervical disc herniations causing mild spinal cord compression and central canal stenosis.
Repeated EEG 07/08/2025 demonstrative of diffuse slowing.
Still with impaired mental status despite improvement on hyponatremia
Discussion with the family, patient is now DNR.
Septic shock, requiring pressors:
- Status post sigmoidectomy with multiple intra-abdominal fluid collections and pulmonary infection
- Respiratory culture from 06/28 growing Carbapenem resistant Pseudomonas
- Brought back to the OR 07/03 for abdominal washout
- Antibiotics Zosyn and IV vancomycin
- Restarted micafungin
- Vasopressors currently on hold
- Seroquel discontinued 06/27
07/08
Still with fever and worsening leukocytosis to 24
Acute hypoxic respiratory failure (currently intubated in the ICU postoperatively)
- Continue mechanical ventilation, ETT replaced 06/19 by process control engineer, trach placed 06/25
- Underwent bronchoscopy with BAL left lower lobe 06/15 by process control engineer, cultures growing Pseudomonas, repeat bronchoscopy with BAL 06/20 with aspiration of copious secretions
- Continuing IV antibiotics as outlined above
- Hypertonic nebulized saline 3 times a day with albuterol, aggressive chest PT
- Additional Lasix pushes as needed
Hypernatremia:
- Worsening again, resumed D5W
paroxismal A-fib/flutter:
- Currently rate controlled, holding home metoprolol, continue home amiodarone 200 mg at night
- Holding home Xarelto, have transitioned to therapeutic Lovenox which is on hold currently for OR
IDDM:
- Insulin drip.
HFrEF:
- Acute on chronic chronic
- Holding home metoprolol succinate 100 mg
- Lasix pushes as needed, holding spironolactone, monitor daily weights
- No need for afterload reduction due to hypotension
CODE STATUS: Full code
DVT prophylaxis: Surgery okay with IV heparin
Diet: TPN-trickle feed
Disposition: Continue management in the ICU.
Poor prognosis.
DNR
Total time spent on today's encounter was 74 minutes which included time spent in counseling the patient/family regarding diagnosis and treatment plan as listed above, goals of care, and symptom management. Case was discussed with nursing staff,
specialists, and care coordinators/case management. All labs and imaging personally reviewed by me. Remainder the time spent in detailed review of previous records, lab data, imaging, and other medical provider documentation.
Anticipated Discharge: > 48 hours
Subjective/Interval History
-
Date of Service: July 11, 2025
Episodes of hypoxia overnight.
Objective Data
-
Labs:
Laboratory Results
07/11/25 07/11/25 07/11/25
03:01 11:05 16:00
WBC 24.3 H
Hgb 6.8 L* 7.1 L Pending
Hct 22.9 L 23.2 L Pending
Plt Count 177
APTT 72.1 H 72.0 H
HCO3 31.5 H
Sodium 144
Potassium 3.9
Chloride 107
Carbon Dioxide 30
BUN 103 H*
Creatinine 2.0 H
Glucose 151 H
Calcium 8.1 L
07/11/25 07/11/25
18:00 22:00
WBC
Hgb Pending
Hct Pending
Plt Count
APTT Pending
HCO3
Sodium
Potassium
Chloride
Carbon Dioxide
BUN
Creatinine
Glucose
Calcium
Vital Signs:
Vital Signs
Temp Pulse Resp BP Pulse Ox
98.7 F 87 26 125/57 95
07/11/25 11:40 07/11/25 06:35 07/11/25 06:35 07/11/25 06:35 07/11/25 12:37
I&O
07/10/25 07/11/25 07/12/25
06:59 06:59 06:59
Intake Total 7698.6 / 7940.1 7300.7 / 7509.2 1265.5 / 1265.5
Output Total 4020 / 4220 4890 / 5140 775 / 775
Balance 3678.6 / 3720.1 2410.7 / 2369.2 490.5 / 490.5
Physical Exam
-
General: Other (Unresponsive)
HEENT: Tracheotomy and Tracheostomy Collar
Respiratory: Rales and Rhonchi
Cardiac: S1/S2 and Bradycardic
Breast: Deferred by me
GI: Other (Colostomy bag, midline incision,PEG tube)
Musculoskeletal: No Cyanosis
Skin: Warm
Neuro: Other (unresponsive)
Psych: Other (Minimal communication)
[2025-07-11 13:12] LABS: Glucose - Point of Care 184 mg/dl (70-99)
[2025-07-11 14:17] LABS: Glucose - Point of Care 179 mg/dl (70-99)
[2025-07-11 15:16] LABS: Glucose - Point of Care 168 mg/dl (70-99)
--- NOTE | 2025-07-11 15:41 | PTCARENOTE ---
Systems reviewed. No new changes. CHG completed. Maintained on drips charted previously.
[2025-07-11 16:19] LABS: Glucose - Point of Care 164 mg/dl (70-99)
[2025-07-11 17:22] LABS: Glucose - Point of Care 168 mg/dl (70-99)
[2025-07-11 18:27] LABS: Hematocrit 23.0 % (39.0-52.0); Hemoglobin 7.2 g/dL (13.0-18.0)
[2025-07-11 18:40] LABS: APTT 79.1 Sec (23.4-35.0)
[2025-07-11 19:12] LABS: Glucose - Point of Care 166 mg/dl (70-99)
--- NOTE | 2025-07-11 20:00 | PTCARENOTE ---
assumed care, pt unresponsive, no purposeful movement, PERRLA 4, weak gag, cough, and corneals, Sinus tach on the monitor c PVCs and PACs, weak pulses, L rad a-line zeroed, lungs coarse and diminished B/L, AC 26/550/12/60%, sats 95, 8 Shiley long,
PEG draining greenish output, Colostomy pink and budded c blood tinged liq output, morales draining yellow output, wounds per worklist, gtts per worklist, critical glycemic protocol followed, R TL PICC, otherwise refer to documentation
[2025-07-11] MEDS: Parenteral Nutrition, Central 2300 IV (20:08)
[2025-07-11] MEDS: LIPITOR 40 MG TUBE (21:08)
[2025-07-11] MEDS: PACERONE 200 MG TUBE (21:08)
[2025-07-11 21:15] LABS: Glucose - Point of Care 144 mg/dl (70-99)
[2025-07-11 23:04] LABS: Glucose - Point of Care 154 mg/dl (70-99)
[2025-07-11 23:10] LABS: Hematocrit 22.4 % (39.0-52.0); Hemoglobin 6.9 g/dL (13.0-18.0)
[2025-07-11 23:19] LABS: APTT 86.1 Sec (23.4-35.0)
[2025-07-11 23:42] VITALS: BP 120/50
[2025-07-12] VITALS: BP 101/57
--- NOTE | 2025-07-12 00:15 | PTCARENOTE ---
systems reviewed, no changes from previous assessment, colostomy changed, new IV tubing changed, new a-line tubing and dressing, Hgb 6.9 TRACTOR DRIVER notified and 1 unit PRBC given, gtts per worklist, otherwise refer to documentation
[2025-07-12] MEDS: D5W 1000 IV ×2 (00:46→09:28)
[2025-07-12 01:03] VITALS: BP 108/54
[2025-07-12 01:11] LABS: Glucose - Point of Care 159 mg/dl (70-99)
[2025-07-12 03:01] LABS: Glucose - Point of Care 154 mg/dl (70-99)
[2025-07-12] MEDS: LEVOPHED 258 MG IV (03:32)
[2025-07-12] MEDS: NOVOLIN R INSULIN INFUSION 100 IV (03:37)
[2025-07-12 04:40] VITALS: BMI 38.6
[2025-07-12 04:41] LABS: B.E. 4.7 mmol/L; HCO3 32.2 mmol/L (21-28); O2 Saturation % 98.8 % (94-98); PCO2 67 mmHg (35-48); PO2 97 mmHg (83-108)
--- NOTE | 2025-07-12 04:41 | PTCARENOTE ---
systems reviewed, CHG bath, labs sent, gtts per worklist, no change from previous assessment, otherwise refer to documentation
[2025-07-12 04:48] LABS: Hematocrit 24.3 % (39.0-52.0); Hemoglobin 7.7 g/dL (13.0-18.0); Mean Corp Hgb Conc. 31.7 g/dL (33.0-37.0); Mean Corpuscular Volume 90.3 fL (80.0-94.0); Platelet Count 173 10^3/uL (130-400); Red Cell Dist. Width 17.5 % (11.5-14.5)
[2025-07-12 04:55] LABS: INR 1.08; PT 14.3 Sec (11.4-14.6)
[2025-07-12 04:57] LABS: APTT 83.3 Sec (23.4-35.0)
[2025-07-12] MEDS: ZOSYN 100 IV (05:08)
[2025-07-12] MEDS: SOLU-CORTEF 50 MG IV (05:08)
[2025-07-12 05:21] LABS: Glucose - Point of Care 159 mg/dl (70-99)
[2025-07-12 05:50] LABS: Blood Urea Nitrogen 119 mg/dl (9-20); Calcium 8.7 mg/dl (8.4-10.2); Carbon Dioxide 30 mmol/L (22-30); Chloride 107 mmol/L (98-107); Estimated Creatinine Clearance 63 ml/min; Glucose 157 mg/dl (70-99); Magnesium 2.5 mg/dl (1.6-2.3); Potassium 3.7 mmol/L (3.5-5.1); Sodium 144 mmol/L (135-145); eGFR 41.51
[2025-07-12] MEDS: HEPARIN 25000 UNITS/250 ML IV (06:47)
[2025-07-12 07:01] LABS: Glucose - Point of Care 168 mg/dl (70-99)
[2025-07-12] MEDS: DESENEX/MITRAZOL/ZEASORB 1 APPLIC TOPICAL (07:25)
[2025-07-12] MEDS: HYDROPHOR 1 APPLIC TOPICAL (07:25)
[2025-07-12] MEDS: PROTONIX IV 40 MG IV (07:26)
[2025-07-12] MEDS: NSS (PRESERVATIVE FREE) 10 ML IV (07:26)
--- NOTE | 2025-07-12 08:55 | W.PN.ID1 ---
Date of Service
Date of Service: July 12, 2025
Today's Communication
Prognosis remains poor.
Completing abx's.
Assessment / Plan
# Fever - resolved on hydrocortisone
# Leukocytosis - stable, also on steroid
# s/p Septic shock off pressor
# Encephalopathy
. Brain MRI no CVA
. EEG per neurology
. No suspicion for infectious encephalitis as patient currently on broad-spectrum antibiotics
. Per neurology, no meaningful recovery. Pt now DNR.
# CONY
. Avoid Vanco/Zosyn and nephrtoxic drugs
# Bilateral fluid opacification of mastoid air cells.
. Common in setting of prolonged intubation
. s/p well-covered with broad-spectrum antibiotics
# 'Rectal perforation' (06/29) with large left intra-abd abscess
. 06/29 s/p IR perc drain placement
abscess cx's neg to date
. 07/03 OR Laparotomy, fecal disimpaction, small bowel resection, abdominal washout and gastrostomy tube
No evidence of a pelvic abscess/rectal stump leak
# Recent purulent peritonitis
# Colonic inertia with megacolon; status post ex lap, decompression, colostomy, stool leakage into the abdomen requiring washout 06/08/2025
. 06/08/25 Exploratory laparotomy, lysis of adhesions, sigmoidectomy, decompression of right colon, abdominal washout, creation of end descending colostomy, umbilical hernia repair
. No OR cx
. 06/19 Colorectal opened midline abd distal incision. cx cx Pseudomonas, mixed anaerobes
. 06/20 aspiration/drainage of right abdominal peritoneal collections x 2. 1 of 2 cx : Pseudomonas
# VDRF s/p trach 06/25/25
# PNA with CR- Pseudomonas
.06/15 s/p bronch with airway clearance; cx Pseudomonas
. 06/28 Sputum CR -Pseudomonas
# PEG
Plan:
- repeat blood cx's negative.
- CXR stable
- Has been on prolonged course of abx's since 06/08
-s/p Vancomycin completed 06/10
- Continue current regimen Zosyn (d#13 of ) and last day Micafungin (d#10 of )
- Overall prognosis remains very poor.
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
HFrEF
HTN
DM
Afib
HLD
Colonic Inertia / Dysmotility
Chronic opioid dependence
Advanced bilateral lower extremity venous insufficiency
Morbid obesity (BMI~43)
Chief Complaint
-: Leukocytosis and Other (Purulent peritonitis)
Vital Signs / Physical Exam
Vital Signs
Vital Signs
Temp Pulse Resp BP Pulse Ox
99 F 91 27 108/54 96
07/12/25 07:16 07/12/25 05:30 07/12/25 05:30 07/12/25 01:03 07/12/25 08:07
Physical Exam
Constitutional: Acutely Ill and Chronically Ill
Oropharyngeal: Other
Cardiovascular: S1/S2 (tachycardic)
Pulmonary: Rhonchi and Other (trach dry; on vent)
Gastrointestinal: Soft, Normal Bowel Sounds and Other (Upper abdominal drains x2, one with milky drainage. Left CHRISTINE drain dry. Ostomy in place, + soft stool. Midline dressing dry. PEG in place. ); Negative Distended
Genito-Urinary: Mason and Clear Urine
Extremities: Edema and Venous Insufficiency (Bilateral lower extremities)
Neurological: Other (Unresponsive)
Lines: PICC
Objective Data
Lab Data
Lab Results
07/12/25 04:34
07/12/25 04:34
PT 14.3 Sec (11.4-14.6) 07/12/25 04:34
INR 1.08 07/12/25 04:34
APTT 83.3 Sec (23.4-35.0) H 07/12/25 04:34
Estimated Creat Clear 63 ml/min 07/12/25 04:34
Lactic Acid 1.2 mmol/L (0.7-2.0) 07/04/25 05:13
Total Bilirubin 0.4 mg/dl (0.2-1.3) 07/10/25 04:08
AST 21 U/L (17-59) 07/10/25 04:08
ALT 11 U/L (0-50) 07/10/25 04:08
Alkaline Phosphatase 75 U/L (38-126) 07/10/25 04:08
C-Reactive Protein > 270.00 mg/L (0.0-10.00) H 06/11/25 03:22
Most recent labs reviewed.
Micro Results:
07/06/25 19:41 Blood Culture - Final
Blood/Venous No Growth - Final Report
07/06/25 19:51 Blood Culture - Final
Blood/Venous No Growth - Final Report
07/02/25 10:09 Blood Culture - Final
Blood/Venous No Growth - Final Report
07/02/25 10:03 Blood Culture - Final
Blood/Venous No Growth - Final Report
06/20/25 11:01 Fungal Culture - Preliminary
Bronch Right Lower Lobe Culture in progress.
Positive cultures are reported as soon as detected.
Final report to follow in four to five weeks.
06/29/25 18:25 Wound Culture - Final
Abdomen No growth
Gram Stain - Final
06/29/25 18:25 Anaerobic Culture - Final
Abdomen NO ANAEROBES ISOLATED
06/27/25 10:17 Blood Culture - Final
Blood/Venous No Growth - Final Report
06/27/25 09:56 Blood Culture - Final
Blood/Venous No Growth - Final Report
06/28/25 15:42 Respiratory Culture - Final
Sputum Pseudomonas aeruginosa
Pseudomonas aeruginosa#2
Gram Stain - Final
06/15/25 10:08 Fungal Culture - Preliminary
Bronch Left Lower Lobe Evelyn albicans
06/20/25 16:38 Body Fluid Culture - Final
Peritoneal Fluid Gram Stain - Final
06/20/25 16:34 Body Fluid Culture - Final
Peritoneal Fluid Pseudomonas aeruginosa
Gram Stain - Final
06/19/25 09:59 Wound Culture - Final
Abdomen Pseudomonas aeruginosa
Gram Stain - Final
06/19/25 09:59 Anaerobic Culture - Final
Abdomen
06/20/25 11:01 Respiratory Culture - Final
Bronch Right Lower Lobe Pseudomonas aeruginosa
Gram Stain - Final
06/20/25 11:01 Acid Fast Bacilli Smear - Preliminary
Bronch Right Lower Lobe Acid Fast Bacilli Culture - Preliminary
06/17/25 13:11 MRSA Screen - Final
Nose No Methicillin Resistant Staphylococcus aureus isolated.
06/13/25 12:07 Blood Culture - Final
Blood/Venous No Growth - Final Report
06/13/25 12:07 Blood Culture - Final
Blood/Venous No Growth - Final Report
06/15/25 10:08 Acid Fast Bacilli Smear - Preliminary
Bronch Left Lower Lobe Acid Fast Bacilli Culture - Preliminary
06/15/25 10:08 Respiratory Culture - Final
Bronch Left Lower Lobe Pseudomonas aeruginosa
Gram Stain - Final
06/14/25 11:22 Respiratory Culture - Final
Tracheal Aspirate Pseudomonas aeruginosa
Gram Stain - Final
06/11/25 09:27 Blood Culture - Final
Blood/Venous No Growth - Final Report
06/11/25 09:59 Blood Culture - Final
Blood/Venous No Growth - Final Report
06/06/25 07:57 MRSA Screen - Final
Nose No Methicillin Resistant Staphylococcus aureus isolated.
Imaging:
07/10/25 CXR: 1. SEVERE LEFT LOWER LOBE PNEUMONIA which appears unchanged.
2. Moderate diffusely increased interstitial markings throughout the upper lobes and right lower lobe. Diagnostic possibilities are (1) interstitial pneumonia or (2) interstitial pulmonary edema.
06/24/25 CXR: Slightly increased basilar predominant airspace opacities, worse on the left. Findings may be related to pneumonia or worsening atelectasis.
06/18/25 CT c/a/p: Suspected moderate volume mildly complex presumed free fluid in the abdomen, overall increased in volume in comparison to recent prior study, most prominently located in the right subhepatic region, right subdiaphragmatic region
and likely left abdomen/pelvis.
06/16/25 CXR: There is moderate airspace disease in right lower lung field concerning for pneumonia. There is obscuration of the left hemidiaphragm suggesting left lower lobe pneumonia
06/15/25 CXR: No pneumothorax status post bronchoscopy. Progressive homogeneous increased retrocardiac opacity. Suspect mild left perihilar and right infrahilar opacity which could represent atelectasis or pneumonia.
06/13/25 CT a/p: Very limited study. Small volume fluid in the abdomen, particularly in the left abdomen mildly complex. As this fluid is incompletely included, it cannot be determined whether this totally represents likely free fluid or combination
of free fluid and abnormal focal fluid collection. Additional small abnormal focal fluid collections cannot be excluded on the basis of this markedly limited study. Apparent recent prior partial sigmoidectomy with large volume stool seen in the
residual sigmoid colon and rectum.
06/10 CXR: Stable CHF and bibasilar atelectasis and/or pneumonia.
06/08/25 CXR: Diffuse marked colonic dilation. Measurement of caliber of the upper colon is slightly greater then obstruction series of June 07, 2025. Multiple air-fluid levels compatible with stasis. Moderate amount of stool within the inferior
aspect of the right colon as well as within the rectum. No gross evidence for free intraperitoneal air.
06/05/25 CT a/p: Significant gaseous distention of a large portion of the colon. This contributes to limitation of this examination, as the patient cannot be fully included on the [id number] of the CT scanner. If there can be some distal colonic
decompression, repeat scan could be considered, when hopefully the patient could be entirely included on the [id number] of the exam. No gross evidence for free intraperitoneal air. Patchy parenchymal opacity within the visualized lower lung, most
likely atelectasis. Pneumonia is a differential consideration, felt to be less likely based on morphologic appearance.
[2025-07-12] MEDS: SANTYL OINTMENT TOPICAL (09:26)
--- NOTE | 2025-07-12 09:31 | W.PN.INTV ---
Today's Communication / Plan
Recommendations
Pressors
Follow hemoglobin
Transfuse as needed
Antibiotics
Adjust ventilator
Mental status without improvement-prognosis grim-comfort a priority-now a DNR-if comes into visit will discuss comfort care/withdrawal
Assessment
-
64-year-old male with a past medical history of cardiomyopathy, hypertension, DM type II, history of chronic opioid use due to chronic arthritis now on buprenorphine, history of ERASMO, venous insufficiency and chronic back pain who presented with
shortness of breath, abdominal distention. Found to have severe colonic distention. Initially treated with neostigmine, attempted sigmoidoscopy without attempt. Underwent exploratory laparotomy 06/08/2025-developed shock requiring vasopressors and
remained on mechanical ventilation. We were consulted on 06/09/2025.
Acute hypoxemic respiratory failure s/p intubation 06/08
s/p laparotomy
s/p Laparotomy, fecal disimpaction, flexible sigmoidoscopy, small bowel resection, abdominal washout and gastrostomy tube 07/03/25
Resistant pseudomonas PNA, w/ prolonged vent dependence s/p trach 06/25 (Shiley 8.0 XLT)
TME
Pseudoobstruction with megacolon, failed conservative management, s/p ex lap
Septic shock-peritonitis, intra-abdominal abscesses, concern for rectal perforation and LLL pneumonia
Acute on chronic heart failure with reduced ejection fraction, LVEF 35%, Stage I diastolic dysfunction
CONY
Prolonged QTc
Hypernatremia
GI bleed suspected-burgundy stools with hemoglobin drop 07/11/2025
Anemia due to acute blood loss
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
Paroxysmal atrial flutter.
Hypertension
BPH
DM type II
chronic back pain
cardiomyopathy
venous insufficiency
history of ERASMO
severe osteoarthritis
chronic pain management due to arthritis
chronic buprenorphine use/narcotic use disorder
Pulmonary hypertension, estimated pulmonary artery systolic pressure 50-55
Morbid obesity
Plan
Sedation: none
Pain control: subutex, tylenol IV
Rass -3 to -4, goal 0
TME noted, EEG to evaluate for any nonconvulsive seizures--neg, repeat 07/08/2025-no seizures, consistent with toxic metabolic encephalopathy
Maintained off sedation > 8 days
Continues to be unresponsive except some response to sternal rub/grimacing
Hypernatremia was an issue, remains on [id number] free water drip to 100 mL/h and then dropped back to 70 mL/h-free water deficit initial calculated around 9 L-slowly improving without change in mental status-recalculate free water deficit and
adjust D5W accordingly
Chronic hypercapnia not the cause of mental status decline-follow ABGs
CT head 07/01/2025-no acute intracranial abnormalities, mastoiditis
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
mild proptosis of the right globe, severe bilateral fluid opacifications of the mastoid air cells, severe bilateral hypotrichosis frontalis interna
Mental status has not improved despite sodium correction, and neurology evaluations consistent with severe toxic metabolic injury
Neurology following-correspondence reviewed-very poor prognosis for meaningful neurologic recovery based on absence of improvement over time and absence of medical therapy which will significantly remediate the patient's symptoms
Respiratory status remains extremely tenuous
Continue on current ventilator settings-FiO2 increased to 1.0-now weaned to 0.6, PEEP at 12-saturations 99%-attempt to decrease FiO2 and subsequently PEEP
ABG reviewed-hypercapnia persists as well as metabolic on top of respiratory acidosis
Previous ABGs and VBG's noted-chronic hypercapnia, not acidotic at this point-compensated
Attempt to wean FiO2-currently at 0.6-attempt to wean
Minute ventilation adjusted-rate and tidal volume increased slightly-follow ABGs
PEEP currently at 12
Chest x-ray 07/09/25-stable left basilar opacification representing atelectasis or pneumonia and small left pleural effusion, right midlung opacification possibly pneumonitis
Follow occasional chest x-ray
Hemodynamics remain variable
Norepinephrine continues-attempt to wean
Vasopressin added 07/09/2025-attempt to wean-currently off since 07/10/2025
Follow lactate if needed
Monitor QTc
Replace potassium and magnesium as needed
PAF history, on outpatient Xarelto/history of cardioversion in January 2025/Amio PO
Heparin infusion, was held due to bloody secretions 06/25, enoxaparin p.m. started 06/26/25
Ok to resume heparin per surgery 07/06/25
Primarily group II PH related to underlying congestive heart failure
Continue to optimize intravascular volume, keep saturations above 90%, no indication for vasodilator therapy
Patient has been diuresing with intermittent Lasix
In view of hyponatremia, continue with D5W infusion-intermittently calculated free water deficit
Diuresis continues as tolerated-creatinine has increased 07/11/2025-hold Lasix x 24 hours
Monitor renal function, electrolytes, intake/output, lower extremity edema and weight
Replace electrolytes as needed
Monitor hemoglobin-now with burgundy stools-colorectal surgery aware
Transfuse as needed-Will transfuse today for hemoglobin 6.3-increased to 6.8-received another unit
Monitor for blood loss-no obvious sources and doubt retroperitoneal bleed-will monitor on exam
Heparin held because of burgundy stools 07/12/2025
Cultures [id number]-zpsysuiiw-yjclsuusc Pseudomonas
Continues with intermittent temperatures
Continue antibiotics per infectious disease-discussed the case with Dr. Quispe-Annelisesydarcy day 08/18, vancomycin day 10/18, empiric micafungin day 06/14
Infectious disease following-correspondence reviewed-antibiotics are futile at this point-prognosis extremely poor
Lumbar puncture could not be performed with body habitus on the ventilator
S/p ex lap, sigmoidectomy and end colostomy, iatrogenic spillage of stool, peritonitis, umbilical hernia repair, 06/08/2025
Small-volume stool output noted in the ostomy bag.
TPN infusing/insulin gtt continue
Diabetic nurse practitioner following-reviewed the case with her
Tube feeding stopped due to high residuals-currently on trickle feed 10 mL/h-advance per surgery
06/18/25, CT chest abdomen pelvis pursued, fluid noted in the abdomen.
Purulent discharge from inferior margin of surgical site, bedside drainage on 06/19, sent for cultures. Growing Pseudomonas
06/20/25, IR guided peritoneal drains x 2 placed for intra-abdominal collections noted on imaging, Pseudomonas noted on peritoneal fluid culture
CT 06/29/25 concerning for large intraabdominal fluid collection as well as concern for rectal perforation with free air
06/29/25, s/p IR guided intraperitoneal drain placement, serous drainage noted
Colorectal surgery following closely-correspondence reviewed
s/p OR 07/03/25: Laparotomy, fecal disimpaction, flexible sigmoidoscopy, small bowel resection, abdominal washout and gastrostomy tube
DVT prophylaxis-was on heparin drip--held 07/12/2025 with anemia/burgundy stools-mechanical for now
GI prophylaxis-on pantoprazole
Nutrition-TPN and tube feeds-trickle at 10 mL/h-attempted to increase to 40 mL/h-very high residuals-tube feeds on held and will resume per surgery
Bedside range of motion
Once again multiorgan failure slowly deteriorating with multiple consultants suggesting no chance for meaningful recovery-Will continue to update and recommend comfort and potential withdrawal-currently a DNR
Dr. Eduardo updated on multidisciplinary rounds 07/08/2025-explained to multi organ dysfunction/failure, very poor prognosis, unlikely to recover from cardiopulmonary arrest, encouraged DNR status, understood but wants continued supportive
care-wishes to speak to infectious disease
Dr. Eduardo reviewed as well as son on multidisciplinary rounds 07/10/2025-explained continued multiorgan dysfunction and failure with poor prognosis-they wish to talk to neurology and subsequently make decisions in regards to CODE STATUS-the
team has contacted neurology to speak to patient's about neurologic prognosis-she elected on DNR status-we will respect her wishes
Critical care statement: A total of 44 minutes of critical care time was provided for this patient today. This includes management of unstable vital signs, evaluation of the patient at bedside, reviewing the patient�s pertinent medical records
including radiographs, pressor management, ventilator management, microbiology, laboratory evaluations, and��discussion with primary team, consultants, pharmacy, nutrition, physical therapy, case management, charge nurse, critical care nursing, and
respiratory therapy.
Family Discussions
Xiomara-Goals of care discussion 07/02/25. I called patient's and updated about patient's current condition. Considering lack of significant progress over the days and now worsening encephalopathy, developing hypotension, increasing pressor
requirement and CONY, overall prognosis is very poor. I brought up the option of pursuing more comfort focused care. Patient's was appreciative of the input and wants to talk to other care providers including infectious disease and surgery
service.
Dr. Eduardo updated and reevaluated patient at the bedside 07/07/2025. Patient had MRI and had some desaturations which are now improvingDr. Jayce updated on MRI results-no acute stroke, many chronic findings including varices and severe
mastoiditisExplanation for mental status decline likely toxic metabolic encephalopathyDr. Jayce reviewed chart and patient was seen by neurology on 07/02-Dr. Alfaro who felt patient had extremely poor prognosisDrMaren Eduardo contacted Dr. Laurent from
neurology to reevaluate after MRIDrMaren Eduardo contacted infectious disease and reviewed mastoiditis and asked if there was any additional changes neededENT may need to be consultedDiscussed CODE STATUS with -explained that if he had a
cardiopulmonary arrest that there was a high chance that he would not recover in a meaningful way-at this point she still wants full-court press including CPR/defibrillation if need be-we will respect her wishes
Dr. Eduardo updated on multidisciplinary rounds 07/08/2025-explained to multi organ dysfunction/failure, very poor prognosis, unlikely to recover from cardiopulmonary arrest, encouraged DNR status, understood but wants continued supportive
care-wishes to speak to infectious disease
Diagnostic Data
Chest x-ray 06/08/2025: Reviewed, ET tube in place. Left lower lobe airspace disease. Cardiomegaly
CT abdomen pelvis 06/05/2025: The patient is significantly distended, and much of the abdominal and upper pelvic soft tissues extending anterior and to the left of the qczbm-yq-[id number], which limits evaluation, as it becomes difficult to confidently
follow the loops of bowel. There is distention of the rectum with air and stool, measuring 9.3 cm in diameter. There is marked distention of the sigmoid colon which extends into the right and central upper abdomen, with the sigmoid colon measuring
up to 18 cm in diameter. The sigmoid colon contains a moderate to large amount of stool, mainly inferiorly. There appears to be moderate distention of the rest of the visualized colon. Small bowel loops are present, and do not appear to be
significantly distended, similar appearance to prior examination. Of note, the cecum cannot be confidently identified on the present examination. No gross evidence of free intraperitoneal air. There is patchy parenchymal opacity within the
visualized lower lungs, most likely atelectasis. A component of pneumonia is also possible, although felt to be less likely. There is no significant pleural effusion and no significant pericardial effusion. Coronary artery calcifications are
present. Please correlate with symptoms of and risk factors for coronary artery disease, with further workup as clinically appropriate. Of note, the stomach is not distended.
ECHO 04/28/25: Left ventricle is moderately dilated with moderately reduced systolic function; left ventricular ejection fraction is 35% by modified Avery's method. Global hypokinesis. Mild concentric left ventricular hypertrophy. Moderate
concentric left ventricular hypertrophy. Stage I diastolic dysfunction suggestive of abnormal relaxation. Mildly dilated right ventricle with low normal RV function.
Mild mitral regurgitation. Sclerotic aortic valve with aortic annular calcification and peak and mean gradients of 23and 12 mmHg, respectively. Estimated BORA is 1.5 cm2., using an LVOT of 1.9 cm. No aortic regurgitation seen. Mild aortic stenosis.
Mild tricuspid regurgitation. Estimated pulmonary artery pressure of 50-55 mmHg, assuming a right atrial pressure of 3-8 mmHg. Compared to previous echo 12/26/24, the PA pressure has increased from 35 to 55 mmHg. LVEF may have improved slightly
from 25 to 35%. Previous study did use Definity.
Subjective Dataa
Subjective Data
Date of Service:
Date of Service: July 12, 2025
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
Subjective:
FiO2 weaned to 0.6, vasopressin never started, burgundy stools, status post transfusions, mental status without improvement
Review of Systems
General: Other (Per HPI)
Objective Data
Data Reviewed
Vital Signs / I&O / Oxygen:
Vital Signs
Temp Pulse Resp BP Pulse Ox
99 F 91 27 108/54 96
07/12/25 07:16 07/12/25 05:30 07/12/25 05:30 07/12/25 01:03 07/12/25 08:07
Intake and Output
07/11/25 07/12/25 07/13/25
06:59 06:59 06:59
Intake Total 7300.7 / 7509.2 6182.1 / 6388.1
Output Total 4890 / 5140 3920 / 3920
Balance 2410.7 / 2369.2 2262.1 / 2468.1
SaO2 [CPAP/PSV] 89
SaO2 [ASV] 98
SaO2 [A/C] 92
SaO2 96
Nasal Cannula flow liters per 3
minute
Physical Exam
General: Respiratory Distress (n), Comfortable (Currently on mechanical ventilation), Other (Large neck, obese) and Other (chronically ill appearing)
HEENT: Normocephalic, Anicteric and Tracheotomy
Cardiovascular: Regular Rhythm (Tachycardic), Murmur (1-2/6 systolic murmur) and Peripheral Edema (chronic venous stasis changes, BL 2+)
Respiratory: Wheeze (n), Crackles (minimal, BL), Rhonchi (n), Non-Labored Respirations (but tachypneic, shallow breaths) and Other (Tracheostomy)
GI: Soft, Distended (Morbidly obese), Non Tender and Other (Colostomy with trace amount of stool, 3 additional drains placed by IR service, continues with serous output)
Neurology: Lethargic, Non Verbal and Other (diminishing MS, not following commands)
Skin: Warm, Good Color, Cyanosis (n), Jaundice (n) and Rash (n)
Labs/Micro/Reports
Lab Data
07/12/25 04:34
07/12/25 04:34
Laboratory Results
07/11/25 07/11/25 07/11/25
11:05 18:05 23:00
PT
INR
APTT 72.0 H 79.1 H 86.1 H
pH
pCO2
pO2
HCO3
O2 Delivery Level
07/12/25
04:34
PT 14.3
INR 1.08
APTT 83.3 H
pH 7.29 L
pCO2 67 H
pO2 97
HCO3 32.2 H
O2 Delivery Level
Microbiology
07/06/25 19:41 Blood/Venous Blood Culture - Final
No Growth - Final Report
07/06/25 19:51 Blood/Venous Blood Culture - Final
No Growth - Final Report
--- NOTE | 2025-07-12 10:16 | PTCARENOTE ---
Per Surgery, heparin now on hold given low hgb and increasing burgundy output from colostomy.
[2025-07-12] MEDS: MYCAMINE 105 MG IV (11:06)
[2025-07-12 11:14] LABS: Glucose - Point of Care 155 mg/dl (70-99)
[2025-07-12 11:26] LABS: Glucose - Point of Care 145 mg/dl (70-99)
--- NOTE | 2025-07-12 11:40 | PTCARENOTE ---
Systems reviewed. No new changes.
--- NOTE | 2025-07-12 11:40 | W.PN.CRS1 ---
Today's Communication / Plan
-
tpn renewed
hold heparin
Assessment/Plan
-
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
obstipation associated with megacolon. WBC 11.[address] showing gaseous distention of the colon, diameter of the sigmoid up to 18 cm in diameter. He received a dose of neostigmine, which failed. He underwent attempt at decompressive sigmoidoscopy,
but encountered too much stool. Due to refractory nature of his issue, we proceeded with surgery.
06/08 exlap, sigmoidectomy, end-colostomy; iatrogenic spillage of stool - controlled and abdomen washed out, no colonic ischemia or perforation
06/15 and 06/20 bronch for mucous plugging
06/19 midline incision opened up, +pseudomonas/mixed aneerobes
06/20 IR drains x2 to RUQ +pseudomonas in 1 of 2
06/25 Tracheostomy placement
06/29- IR successful ultrasound-guided drainage catheter placement into a left-sided intraperitoneal fluid collection.
07/03 exlap, fecal disimpaction, flex sig, SBR and abdominal washout with placement of G-tube
Afebrile
Melena in ostomy appliance, s/p transfusions on 07/10 and 07/11
Prognosis poor
Plan:
- Continue TPN/Insulin gtt; appreciate nutrition
- Hold on TF given elevated residuals/melena
- ABX as per ID
- Hold heparin gtt given ongoing bleeding
- PPI as per primary
�Continue CHRISTINE and IR drains
�Appreciate hospitalist and ICU teams
�Appreciate neurology, given EEG findings, very poor prognosis of any meaningful recovery. Currently DNR.
�Ongoing goals of care discussion, would strongly consider ADMITTING COORDINATOR.
Subjective Data
Procedure
06/08/25- Exploratory laparotomy, lysis of adhesions, sigmoidectomy, decompression of right colon, abdominal washout, creation of end descending colostomy, umbilical hernia repair
Subjective Data
Date of Service: July 12, 2025
Pt seen and examined at bedside. [facility].
Objective Data
-
Vital Signs
Temp Pulse Resp BP Pulse Ox
99.6 F 101 23 108/54 95
07/12/25 11:00 07/12/25 10:00 07/12/25 10:00 07/12/25 01:03 07/12/25 11:16
Intake & Output
07/11/25 07/12/25 07/13/25
06:59 06:59 06:59
Intake Total 7300.7 / 7509.2 6182.1 / 6388.1 792 / 792
Output Total 4890 / 5140 3920 / 3920 550 / 550
Balance 2410.7 / 2369.2 2262.1 / 2468.1 242 / 242
Intake:
IV fluids (Total) 2741.7 / 2854.2 2858.1 / 2968.1 408 / 408
D5w 1,000 ml @ 70 mls/hr IV . 1800 / 1870 1680 / 1750 280 / 280
[id number] [facility] Rx#:[id number]
Heparin gtt 624 / 651 667 / 695 84 / 84
Insulin 227 / 235 250 / 262 44 / 44
Levophed gtt 90.7 / 98.2 261.1 / 261.1 0 / 0
IV piggybacks 505 / 505 500 / 500
TPN/PPN 2304 / 2400 2304 / 2400 384 / 384
Amount instilled into Drain (
Total)
Right Middle Abdomen Milton- 10
Vo B Placed in IR
Right Upper Abdomen Milton- 10 10
Vo A Placed in IR
Blood Products 1000 / 1000 250 / 250
Packed red blood cells 1000 / 1000 250 / 250
Blood Product Amount Infused ( 750 / 750 250 / 250
mL)
Packed Rbc Leukoreduced Unit 250 / 250
[id number]
Packed Rbc Leukoreduced Unit 250 / 250
[id number]
Packed Rbc Leukoreduced Unit 250 / 250
[id number]
Packed Rbc Leukoreduced Unit 250 / 250
[id number]
Output:
Liquid stool amount 350 / 350 250 / 250 100 / 100
Colostomy 350 / 350 250 / 250 100 / 100
Drain Output (Total) 5 / 5 45 / 45
Left Middle Abdomen 5 / 5 0 / 0
Right Lower Abdomen Milton- 15 / 15
Vo
Right Middle Abdomen Milton- 10 / 10
Vo B Placed in IR
Right Upper Abdomen Milton- 20 / 20
Vo A Placed in IR
Gastrointestinal tube output ( 1220 / 1220 550 / 550
Total)
Gastrostomy 1220 / 1220 550 / 550
Urine, Mason 3315 / 3565 3075 / 3075 450 / 450
Lab Results
07/12/25 04:34
07/12/25 04:34
Physical Exam
-
General: No Acute Distress and Other (Intubated)
Abdomen: Soft, Non Distended, Non Tender, No Guarding, No Rebound and Other (Ostomy pink and productive of stool with melena noted; JPs serosanguineous except RLQ CHRISTINE slightly serosanguineous; midline incision without erythema or drainage, inferior
aspect with packing, base is clean without purulence or necrotic tissue)
Neurological: Other (Not alert or awake, intact pupillary reflex, does not respond to noxious or verbal stimuli, upgoing toes on Babinski, it appears he is posturing as well)
Skin: Warm and Diaphoretic
--- NOTE | 2025-07-12 12:41 | W.PN.HOSP.TC ---
Today's Communication/Plan
-
Continue management in the ICU.
Poor prognosis.
DNR
Assessment / Plan
Assessment / Plan
Impression:
Mr. Knapp is a 64-year-old male with medical history of HFpEF, A-fib/flutter, IDDM, obesity, chronic pain with subsequent opioid dependence, and chronic constipation with colonic dysmotility who presented with shortness of breath, abdominal
bloating and discomfort, constipation. His last bowel movement was 2 weeks prior to arrival. He is having increasing difficulty breathing due to worsening abdominal distention. He has had multiple similar episodes since September 2024 and has
previously required decompression. He has been treated with enemas and neostigmine previously. Abdominal imaging showed significant colonic distention with air-filled loops of bowel. He also had patchy parenchymal opacities within the mid to
lower lungs. He was mildly hypoxic and has been started on antibiotics. He has remained afebrile with a mild leukocytosis of just over 12,000. He has been admitted for further evaluation and management.
Seen by GI, failed neostigmine, enema, status post nonsuccessful decompressive flexible sigmoidoscopy.
Surgery team consulted.
s/p Exploratory laparotomy, lysis of adhesions, sigmoidectomy, decompression of right colon, abdominal washout, creation of end descending colostomy, umbilical hernia repair on 06/08
admitted to ICU postoperatively, intubated.
Patient had fever,Infectious disease consult, started on zosyn.
Patient was still running fever, added micafungin.
CT chest: New right lower lobe consolidation with air bronchograms, atelectasis versus pneumonia, Possible small bilateral pleural effusions.
CT abdomen/pelvis shows: Small volume fluid in the abdomen, particularly in the left abdomen mildly complex. As this fluid is incompletely included, it cannot be determined whether this totally represents likely free fluid or combination of free
fluid and abnormal focal fluid collection. Additional small abnormal focal fluid collections cannot be excluded on the basis of this markedly limited study
S/p trach
MRI brain shows:
1. Mild diffuse cerebral and cerebellar volume loss.
2. Severe tortuosity and ectasia of the left intracranial vertebral artery.
3. 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
4. 2.7 cm and 1.6 cm RIGHT INTRAORBITAL VARICES causing mild proptosis of the right globe.
5. SEVERE BILATERAL FLUID OPACIFICATION of the MASTOID AIR CELLS.
6. Severe bilateral hyperostosis frontalis interna.
7. Small multilevel cervical disc herniations causing mild spinal cord compression and central canal stenosis.
Repeated EEG 07/08/2025 demonstrative of diffuse slowing.
Discussion with the family, patient is now DNR.
Assessment/Plan:
Colonic dysmotility/ileus:
- Abdomen remained significantly distended despite multiple medical enemas and subsequent bowel movements
- Upgraded to IMU 06/07, pushed 4 mg neostigmine around 1:30 PM, no significant peristaltic response
- Ultimately required surgical intervention, brought to the OR 06/08 for ex lap with lysis of adhesions and sigmoidectomy with end descending colostomy, decompression of right colon, abdominal washout and umbilical hernia repair
- ICU postoperatively, intubated
- Colorectal surgery following, colostomy with brown stool output
- IR placed 2 abdominal drains 06/20 with serous output, a third drain was placed 06/29 for new collection
- Rectum was distended with stool and was manually disimpacted 07/01
- Brought back to the OR on 07/03 for washout, disimpaction, and PEG placement
- Continue TPN, holding tube feeds for now however may be able to start trickle feeds if continues to have good stoma outputs
07/06
Start trickle feeding
07/10
High residual, feeding on hold
Acute Metabolic encephalopathy:
- Unclear etiology but likely secondary to critical illness
- Currently responsive only to noxious stimuli, off of sedation
- CT brain 07/01 shows no acute intracranial abnormality, possible mastoiditis
- No findings on ABG to explain mental status
- Neurology following, EEG showed generalized slowing indicative of toxic/metabolic encephalopathy, no focal epileptiform activity
07/06
Hypernatremia, will start D5W
07/07
Hyponatremia slightly improved.
07/08
Sodium improved 152-patient still encephalopathic
MRI brain shows:
1. Mild diffuse cerebral and cerebellar volume loss.
2. Severe tortuosity and ectasia of the left intracranial vertebral artery.
3. 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
4. 2.7 cm and 1.6 cm RIGHT INTRAORBITAL VARICES causing mild proptosis of the right globe.
5. SEVERE BILATERAL FLUID OPACIFICATION of the MASTOID AIR CELLS.
6. Severe bilateral hyperostosis frontalis interna.
7. Small multilevel cervical disc herniations causing mild spinal cord compression and central canal stenosis.
Repeated EEG 07/08/2025 demonstrative of diffuse slowing.
Still with impaired mental status despite improvement on hyponatremia
Discussion with the family, patient is now DNR.
Septic shock, requiring pressors:
- Status post sigmoidectomy with multiple intra-abdominal fluid collections and pulmonary infection
- Respiratory culture from 06/28 growing Carbapenem resistant Pseudomonas
- Brought back to the OR 07/03 for abdominal washout
- Antibiotics Zosyn and IV vancomycin
- Restarted micafungin
- Vasopressors currently on hold
- Seroquel discontinued 06/27
07/08
Still with fever and worsening leukocytosis to 24
Acute hypoxic respiratory failure (currently intubated in the ICU postoperatively)
- Continue mechanical ventilation, ETT replaced 06/19 by jewelry internship, trach placed 06/25
- Underwent bronchoscopy with BAL left lower lobe 06/15 by jewelry internship, cultures growing Pseudomonas, repeat bronchoscopy with BAL 06/20 with aspiration of copious secretions
- Continuing IV antibiotics as outlined above
- Hypertonic nebulized saline 3 times a day with albuterol, aggressive chest PT
- Additional Lasix pushes as needed
Hypernatremia:
- Worsening again, resumed D5W
paroxismal A-fib/flutter:
- Currently rate controlled, holding home metoprolol, continue home amiodarone 200 mg at night
- Holding home Xarelto, have transitioned to therapeutic Lovenox which is on hold currently for OR
GI bleeding.
Noted bloody output on ostomy bag.
Increased pantoprazole to twice daily
IDDM:
- Insulin drip.
HFrEF:
- Acute on chronic chronic
- Holding home metoprolol succinate 100 mg
- Lasix pushes as needed, holding spironolactone, monitor daily weights
- No need for afterload reduction due to hypotension
CODE STATUS: Full code
DVT prophylaxis: Surgery okay with IV heparin
Diet: TPN-trickle feed
Disposition: Continue management in the ICU.
Poor prognosis.
DNR
Total time spent on today's encounter was 74 minutes which included time spent in counseling the patient/family regarding diagnosis and treatment plan as listed above, goals of care, and symptom management. Case was discussed with nursing staff,
specialists, and care coordinators/case management. All labs and imaging personally reviewed by me. Remainder the time spent in detailed review of previous records, lab data, imaging, and other medical provider documentation.
Anticipated Discharge: > 48 hours
Subjective/Interval History
-
Date of Service: July 12, 2025
Continues to be critically ill in the ICU
Objective Data
-
Labs:
Laboratory Results
07/12/25
04:34
WBC 23.4 H
Hgb 7.7 L
Hct 24.3 L
Plt Count 173
PT 14.3
INR 1.08
APTT 83.3 H
HCO3 32.2 H
Sodium 144
Potassium 3.7
Chloride 107
Carbon Dioxide 30
BUN 119 H*
Creatinine 1.8 H
Glucose 157 H
Calcium 8.7
Vital Signs:
Vital Signs
Temp Pulse Resp BP Pulse Ox
99.6 F 100 27 108/54 95
07/12/25 11:00 07/12/25 11:00 07/12/25 11:00 07/12/25 01:03 07/12/25 11:16
I&O
07/11/25 07/12/25 07/13/25
06:59 06:59 06:59
Intake Total 7300.7 / 7509.2 6182.1 / 6388.1 792 / 792
Output Total 4890 / 5140 3920 / 3920 550 / 550
Balance 2410.7 / 2369.2 2262.1 / 2468.1 242 / 242
Physical Exam
-
General: Other (Unresponsive)
HEENT: Tracheotomy and Tracheostomy Collar
Respiratory: Rales and Rhonchi
Cardiac: S1/S2 and Bradycardic
Breast: Deferred by me
GI: Other (Colostomy bag, midline incision,PEG tube)
Musculoskeletal: No Cyanosis
Skin: Warm
Neuro: Other (unresponsive)
Psych: Other (Minimal communication)
--- NOTE | 2025-07-12 13:01 | PTCARENOTE ---
just came in and was updated by myself regarding bleeding from colostomy. She is aware that heparin has been stopped. She said we 'need to transition to comfort'. Asked her if she wanted everything stopped/pt to come off ventilator and she
said not yet but yes. She is waiting for her children to come. Dr Eduardo aware and order pending.
did not want me to hang scheduled meds for noon. TPN and insulin stopped.
--- NOTE | 2025-07-12 13:31 | W.PN.UPDATE ---
Update Note
Progress Note Update
Updated at the bedside-she would like comfort and withdrawal of care including extubation when her kids arrive and they can all save the goodbyes
We will respect their wishes
Comfort orders will be placed
Primary team will be notified
[2025-07-12] MEDS: ZOSYN IV (13:39)
[2025-07-12] MEDS: SOLU-CORTEF IV (13:39)
[2025-07-12] MEDS: LASIX IV (13:39)
--- NOTE | 2025-07-12 15:52 | CHAP ---
"A visit was requested by nursing. Bernie and son were present at the time - they are supporting one another. Bernie is feeling sadness and some anger. Merrill does not have scientologist affiliation; Bernie has [employer] background, but "Yahir"is not practising. Emotional and spiritual support provided, along with a prayer blanket and assurance of our on-going availability."
[2025-07-12] MEDS: MORPHINE SULFATE 5 MG IV (16:32)
[2025-07-12] MEDS: VALIUM INJECTION 10 MG IV (16:33)
--- NOTE | 2025-07-12 17:26 | PTCARENOTE ---
said they were ready to withdrawal. All drips stopped, pt medicated with morphine and valium as ordered and was taken off vent to room air at 1645. and son were present at time that pt was taken off vent. Pt at 1653 with
and son present.
--- NOTE | 2025-07-12 17:28 | W.PN.DEATH ---
Pronouncement of
-
Called to see patient to pronounce.
No spontaneous heart tones or respirations noted.
Patient not responsive to verbal stimuli.
Patient is pronounced .
Time of : 16:53
Date of : 07/12/25
Family Notified: Yes
--- NOTE | 2025-07-12 18:49 | PTCARENOTE ---
Postmortem care done once pt pronounced. All iv/drains removed. Pt taken to morgue. No belonging in room. GOL notified per protocol. Attempted to call prior to withdrawal and no one answered.
--- NOTE | 2025-07-13 09:06 | CM ---
Patient 06/11/25 @ [id number]
[2025-07-13 09:40] LABS: Glucose - Point of Care 150 mg/dl (70-99)
== END 2025-07-12 16:53 | disposition expired | DRG 3 ==
LOC: ICU 02:11
PROVIDERS: General Practice; Internal Medicine; Internal Medicine Critical Care Medicine; Nurse Practitioner Family; Nurse Practitioner Primary Care; Otolaryngology; Physician Assistant; Psychiatry & Neurology Neurology; Radiology Vascular & Interventional Radiology; Registered Nurse; Surgery; ADMITTING PHYSICIAN Internal Medicine; ATTENDING PHYSICIAN Internal Medicine; CONSULT PHYSICIAN Internal Medicine Critical Care Medicine; CONSULT PHYSICIAN Internal Medicine Gastroenterology; CONSULT PHYSICIAN Internal Medicine Infectious Disease; CONSULT PHYSICIAN Otolaryngology; CONSULT PHYSICIAN Psychiatry & Neurology Clinical Neurophysiology; EMERGENCY PHYSICIAN Emergency Medicine; OTHER PHYSICIAN Surgery
PROC: 5A1955Z Respiratory Ventilation, Greater than 96 Consecutive Hours (ICD-10-PCS; 2025-06-08)
PROC: 0DJD8ZZ Inspection of Lower Intestinal Tract, Via Natural or Artificial Opening Endoscopic (ICD-10-PCS; 2025-06-08)
PROC: 0BH17EZ Insertion of Endotracheal Airway into Trachea, Via Natural or Artificial Opening (ICD-10-PCS; 2025-06-08)
PROC: 0D1M0Z4 Bypass Descending Colon to Cutaneous, Open Approach (ICD-10-PCS; 2025-06-09)
PROC: 02HV33Z Insertion of Infusion Device into Superior Vena Cava, Percutaneous Approach (ICD-10-PCS; 2025-06-09)
PROC: 0DTN0ZZ Resection of Sigmoid Colon, Open Approach (ICD-10-PCS; 2025-06-09)
PROC: 3E0436Z Introduction of Nutritional Substance into Central Vein, Percutaneous Approach (ICD-10-PCS; 2025-06-11)
PROC: 0B9J8ZX Drainage of Left Lower Lung Lobe, Via Natural or Artificial Opening Endoscopic, Diagnostic (ICD-10-PCS; 2025-06-15)
PROC: 0W9G3ZZ Drainage of Peritoneal Cavity, Percutaneous Approach (ICD-10-PCS; 2025-06-20)
PROC: 0BC68ZZ Extirpation of Matter from Right Lower Lobe Bronchus, Via Natural or Artificial Opening Endoscopic (ICD-10-PCS; 2025-06-20)
PROC: 0BC58ZZ Extirpation of Matter from Right Middle Lobe Bronchus, Via Natural or Artificial Opening Endoscopic (ICD-10-PCS; 2025-06-20)
PROC: 0BCB8ZZ Extirpation of Matter from Left Lower Lobe Bronchus, Via Natural or Artificial Opening Endoscopic (ICD-10-PCS; 2025-06-20)
PROC: 0B110F4 Bypass Trachea to Cutaneous with Tracheostomy Device, Open Approach (ICD-10-PCS; 2025-06-25)
PROC: 0W9G30Z Drainage of Peritoneal Cavity with Drainage Device, Percutaneous Approach (ICD-10-PCS; 2025-06-29)
PROC: 30233N1 Transfusion of Nonautologous Red Blood Cells into Peripheral Vein, Percutaneous Approach (ICD-10-PCS; 2025-07-02)
PROC: 0DB80ZZ Excision of Small Intestine, Open Approach (ICD-10-PCS; 2025-07-03)
DX: K59.81 Ogilvie syndrome (principal); A41.9 Sepsis, unspecified organism; K65.1 Peritoneal abscess; K63.1 Perforation of intestine (nontraumatic); R65.21 Severe sepsis with septic shock; K56.2 Volvulus; J95.821 Acute postprocedural respiratory failure; K65.0 Generalized (acute) peritonitis; G92.8 Other toxic encephalopathy; I50.23 Acute on chronic systolic (congestive) heart failure; E87.0 Hyperosmolality and hypernatremia; J95.851 Ventilator associated pneumonia; D62 Acute posthemorrhagic anemia; I48.92 Unspecified atrial flutter; F11.20 Opioid dependence, uncomplicated; I42.8 Other cardiomyopathies; T17.590A Other foreign object in bronchus causing asphyxiation, initial encounter; R04.2 Hemoptysis; Z99.11 Dependence on respirator [ventilator] status; T81.31XA Disruption of external operation (surgical) wound, not elsewhere classified, initial encounter; N17.9 Acute kidney failure, unspecified; K92.2 Gastrointestinal hemorrhage, unspecified; Z51.5 Encounter for palliative care; Z66 Do not resuscitate; K59.4 Anal spasm; K66.0 Peritoneal adhesions (postprocedural) (postinfection); L89.311 Pressure ulcer of right buttock, stage 1; E87.6 Hypokalemia; Y83.6 Removal of other organ (partial) (total) as the cause of abnormal reaction of the patient, or of later complication, without mention of misadventure at the time of the procedure; W44.F9XA Other object of natural or organic material, entering into or through a natural orifice, initial encounter; K59.39 Other megacolon; K42.9 Umbilical hernia without obstruction or gangrene; I11.0 Hypertensive heart disease with heart failure; E66.01 Morbid (severe) obesity due to excess calories; G89.4 Chronic pain syndrome; N40.0 Benign prostatic hyperplasia without lower urinary tract symptoms; E78.00 Pure hypercholesterolemia, unspecified; G47.33 Obstructive sleep apnea (adult) (pediatric); K62.4 Stenosis of anus and rectum; I48.0 Paroxysmal atrial fibrillation; F32.A Depression, unspecified; I34.0 Nonrheumatic mitral (valve) insufficiency; I36.1 Nonrheumatic tricuspid (valve) insufficiency; I87.2 Venous insufficiency (chronic) (peripheral); I27.22 Pulmonary hypertension due to left heart disease; E11.65 Type 2 diabetes mellitus with hyperglycemia; E83.42 Hypomagnesemia; M19.90 Unspecified osteoarthritis, unspecified site; Z68.38 Body mass index [BMI] 38.0-38.9, adult; Z79.01 Long term (current) use of anticoagulants; Z79.4 Long term (current) use of insulin; Z79.899 Other long term (current) drug therapy
CPT/HCPCS: 36600; 49406; 70450; 70551; 71045; 71046; 71250; 71260; 74018; 74022; 74176; 74177; 80048; 80053; 80076; 80202; 81003; 81015; 82040; 82248; 82330; 82607; 82728; 82746; 82805; 82962; 83036; 83605; 83690; 83735; 83880; 84100; 84132; 84134; 84145; 84443; 84478; 84484; 85014; 85018; 85025; 85027; 85610; 85730; 86140; 86850; 86900; 86901; 86920; 86922; 87015; 87040; 87070; 87075; 87077; 87102; 87106; 87116; 87186; 87205; 88307; 88341; 88342; 93005; 93970; 93971; 94002; 94003; 94640; 94667; 94668; 95816; 96365; 96375; 99285; C1729; C1769; C1776; J0714; J1335; J7168; P9016; P9045; P9047; Q9967